=== PATIENT | female | born 1945 | race Caucasian/White ===

== ENCOUNTER → 2018-03-12 15:27 | Outpatient (CLI) | payer MEDICARE, OTHER, SELFPAY ==
--- NOTE | 2018-03-12 15:32 | DI.MG.S_ITS ---
BILATERAL DIGITAL SCREENING MAMMOGRAM 3D/2D WITH CAD: 03/12/2018 CLINICAL: Routine screening. Comparison is made to exams dated: 03/06/2017 mammogram, 02/18/2016 mammogram, and 11/04/2014 mammogram - [facility]. The tissue of both breasts is predominantly fatty. Current study was also evaluated with a Computer Aided Detection (CAD) system. No significant masses, calcifications, or other findings are seen in either breast. There has been no significant interval change. IMPRESSION: NEGATIVE There is no mammographic evidence of malignancy. A 1 year screening mammogram is recommended. This exam was interpreted at Station ID: [id number]. NOTE: For mammograms, a report in lay terms will be sent to the patient. Approximately 15% of breast malignancies will not be visualized mammographically. In the management of a palpable breast mass, a negative mammogram must not discourage biopsy of a clinically suspicious lesion. Electronically Signed By: Dennis vivas/judah:03/12/2018 20:40:37 letter sent: Normal Exam ACR BI-RADS Category 1: Negative [id number]
== END ==
PROVIDERS: Visit Provider Family Medicine
DX: Z12.31 Encounter for screening mammogram for malignant neoplasm of breast (principal)
CPT/HCPCS: 77063; 77067

== ENCOUNTER → 2018-03-25 11:47 | Outpatient (CLI) | payer MEDICARE, OTHER, SELFPAY | PROVIDERS: Visit Provider Physician Assistant | DX: R30.0 Dysuria (principal) | CPT/HCPCS: 87086 ==

== ENCOUNTER → 2018-04-30 12:40 | Outpatient (CLI) | payer MEDICARE, OTHER, SELFPAY ==
[2018-04-30 12:51] LABS: RBC Urine None Seen (0-5/HPF)
[2018-04-30 14:00] LABS: Appearance Urine UA CLEAR; Bilirubin Urine UA NEGATIVE (NEGATIVE); Color Urine UA YELLOW; Glucose Urine UA NEGATIVE (Normal); Ketones Urine UA NEGATIVE (NEGATIVE); Leukocyte Esterase Urine UA NEGATIVE (NEGATIVE); Nitrite Urine UA Negative (Negative); Occult Blood Urine UA NEGATIVE (Negative); Protein Urine UA NEGATIVE (Negative); Urobilinogen Urine UA 0.2 E.U./dL (0.2); pH Urine UA 5.5 (4.5-8.0)
[2018-04-30 14:06] LABS: Bacteria Urine Occasional (0-1); Culture Indicated Urine Cult Not Indicated; Squamous Epithelial Cell Urine 1-5 /HPF; WBC Urine 0-1/HPF (0-5/HPF)
== END ==
PROVIDERS: PCP Family Medicine; Visit Provider Family Medicine
DX: N39.0 Urinary tract infection, site not specified (principal)
CPT/HCPCS: 81001

== ENCOUNTER 2018-09-26 10:45 | Outpatient (RCR) | payer MEDICARE, OTHER, SELFPAY ==
--- NOTE | 2018-06-28 15:10 | PT.OIE ---
Current Diagnoses Strain of adductor muscle, fascia and tendon of unspecified thigh, initial encounter (06/28/18) Past Medical History (Last Updated 01/12/18 @ 18:21 by Talisha Dorado MD) Essential hypertension (Chronic 04/25/17) CTS (carpal tunnel syndrome) (Chronic) Cataract (Chronic) Chronic back pain (Chronic) Hypertension (Chronic) Osteoarthritis (Chronic) Asthma (Resolved) Measles (Resolved) Past Surgical History (Last Updated 03/28/18 @ 09:26 by Isabell Fung DO) Anesthesia (Resolved) History of knee replacement (Resolved 2016) History of spinal fusion (Resolved 06/2009) History of spinal fusion (Resolved 2011) Status post parathyroidectomy (Resolved 2015) Status post tonsillectomy and adenoidectomy (Resolved 1947) Provider Visit Care Team Role Provider Type Isabell Fung DO Attending Provider Physician Primary Care Provider Specialty: Family Practice Address: [address] [place] [address] Email: [email or web address] Physical Therapy Initial Evaluation PT-OP-A Visit Information Start: 06/28/18 14:25 Freq: Status: Active Protocol: Document 06/28/18 14:26 [facility] (Rec: 06/28/18 15:10 [facility] [email or web address]) Out-Patient Physical Therapy Visit Information Visit Information Visit Type Initial Evaluation Visit Start Time 13:00 Visit Stop Time 13:45 Total Visit Minutes 45 Visit Number 1 Evaluation Information Evaluation Date 06/28/18 PT-OP-B Current Condition Start: 06/28/18 14:25 Freq: Status: Active Protocol: Document 06/28/18 14:26 [facility] (Rec: 06/28/18 15:10 [facility] [email or web address]) Current Condition History of Current Condition Onset Date February 2018 Current Complaints left sided groin pain that began last February History of Current Condition Jacinda is a 72 year old female who aggravated her left groin when getting out of a [place] chair [place] [employer] [place]. She reports she had sat down in the chair to try it out but then getting back up was difficult and she felt a pain in her left groin with the attempt to get out of the chair. Since that time she has pain with getting in and out of the car or bathtub. She also has increased pain with donning shoes or socks as it is difficult for her to place her left hip into ER. Pain can range from 1-8/10 depending on her activitty. She does have a history of left TKA June 2017, and right TKA April 20 2017. Past medical history also includes L3-4, L4-5, L5-S1 fusion in Jun 2009, and January 2012 Treatment Goals Patient/Caregiver Goals to decrease pain and improve functional mobility Prior Functional Status Baseline Function- ADL's Independent Baseline Function- Mobility Independent Current Functional Impairments (Reported) Functional Limitations- ADL's pain with transitional movements such as sit-stand, getting into our out of a car or bathtub and sometimes just standing brings on pain PT-OP-F Manual Assessment Start: 06/28/18 14:25 Freq: Status: Active Protocol: Document 06/28/18 14:26 [facility] (Rec: 06/28/18 15:10 [facility] [email or web address]) Manual Assessments Soft Tissue Assessment Soft Tissue Mobility Assessment tightness in the sartorius, gracillis, and adductor attachments to the pubic ramus with tenderness to palpation ingrid test position recreates pain in the groin Joint Mobility Assessment Joint Mobility Assessment painful hip ER on the left both active and passive, pain is reduced with hip distraction and lateral glide PT-OP-K Range of Motion Start: 06/28/18 14:25 Freq: Status: Active Protocol: Document 06/28/18 14:26 [facility] (Rec: 06/28/18 15:10 [facility] [email or web address]) Hip Goniometric Range of Motion Hip Measured in Degrees Left Hip ROM WFL No Testing Position Supine Flexion w/Knee Flexed 110 Abduction 30 Internal Rotation 10 External Rotation 10 Hip ROM Limitations Hip ROM Limitations Soft Tissue Tightness Muscle Tone Pain Comments pain is reproduced with hip ER in a flexed position, pain also reproduced with hip extension in ingrid test position although hip ext is WFL PT-OP-M Strength Start: 06/28/18 14:25 Freq: Status: Active Protocol: Document 06/28/18 14:26 [facility] (Rec: 06/28/18 15:10 [facility] [email or web address]) Hip Strength Hip Manual Muscle Testing Right Reason Not Measured WFL Left Flexion (L2) 4 Good Extension (S1) 4 Good Abduction 4 Good External Rotation 4 Good Internal Rotation 4 Good Comments pain with resisted ER, extension PT-OP-Q Treatments Start: 06/28/18 14:25 Freq: Status: Active Protocol: Document 06/28/18 14:26 [facility] (Rec: 06/28/18 15:10 [facility] [email or web address]) Therapeutic Exercises Supine Exercises 1 Supine Exercise Name supine hip roll ins and roll outs Side bilateral Reps/Minutes 2 x 10 Manual Therapy Treatment Soft Tissue Mobilization 1 Body Location adductor, gracilis, and sartorius tendons and musculature Mobilization Type Myofascial Release Intensity/Depth Superficial Body Position Hooklying Joint Mobilizations 1 Joint left hip distraction with belt as assistance and hip ER MWM Body Position Hooklying Comments good tolerance for hip MWM and no pain with hip ER while the left hip was distracted PT-OP-R Modalities Start: 06/28/18 14:25 Freq: Status: Active Protocol: Document 06/28/18 14:26 [facility] (Rec: 06/28/18 15:10 [facility] [email or web address]) Ultrasound Therapy Treatment L adductor attachments to pubic ramus Patient Position Supine Coupling Medium Ultrasound Gel Applicator Size (cm2) 5 Mode Setting Continuous Duty Cycle 100% PT-OP-T Assessment and Plan Start: 06/28/18 14:25 Freq: Status: Active Protocol: Document 06/28/18 14:26 [facility] (Rec: 06/28/18 15:10 [facility] [email or web address]) Physical Therapy Assessment Rehab Potential Rehabilitation Potential Good Evaluation Complexity Number of Personal Factors/Comorbidities 0 Number of Body Systems Impaired 1-2 Clinical Presentation at Evaluation Stable Impairments Impairments Activity Tolerance Gait Pain Soft Tissue Mobility Strength Transfers Goals Four Impairment painful hip ER, Jacinda is unable to rest her left heel over her right knee Crawler Tractor Operator Goal (LTG) Improve full painfree hip ER with manual therapy techniques and gentle stretches LTG Duration 6-8 weeks Three Impairment spasm of the adductors, sartorius, and gracilis at the proximal attachments Short Term Goal (STG) reduce spasm of these muscle groups to help improve painfree hip ROM STG Duration 4-5 weeks Two Impairment pain with transitional movements Long-Term Goal (LTG) Jacinda is able to transfer in and out of her car or bathtub without pain in the left groin LTG Duration 6-8 weeks One Impairment pain in the groin rated 1-8 depending on activity level Short Term Goal (STG) Jacinda has decreased c/o groin pain to palpation and is able to roll in bed without pain STG Duration 4 weeks Assessment Summary Assessment Jacinda presents to physical therapy today with muscle guarding and spasm of the adductor attachment to the pubic ramus. She also has tenderness with hip ER and tenderness over the sartorius and gracilis. She is limited in transitional movements and sit-stand activities. She is also tender to palpation over the pubic bone. I found today with gentle distraction of her left hip that hip ER was improved. We worked on US over the common adductor tendon proximal attachment and MFR to the same. Treatment then included hip distraction with ER. She tolerated this well. She is a good candidate for PT focusing on reducing spasm of the adductors and reducing pain. Physical Therapy Plan Frequency and Duration Frequency of Treatment 2x/Week Duration of Treatment 8 weeks Plan of Care Start Date 06/28/18 Plan of Care End Date 08/23/18 Therapeutic Interventions Therapeutic Interventions Home Exercise Program Joint Mobilizations Manual Therapy Neuromuscular Re-education Patient/Caregiver Education Self-Care/Home Management Soft Tissue Mobilization Therapeutic Exercises Modalities Ultrasound
--- NOTE | 2018-06-28 15:10 | PT.OPPOC ---
Current Diagnoses Strain of adductor muscle, fascia and tendon of unspecified thigh, initial encounter (06/28/18) Provider Visit Care Team Role Provider Type Isabell Fung DO Attending Provider Physician Primary Care Provider Specialty: Family Practice Address: [address] [place] [address], [id number] Email: [email or web address] Plan Of Care PT-OP-T Assessment and Plan Start: 06/28/18 14:25 Freq: Status: Active Protocol: Document 06/28/18 14:26 [facility] (Rec: 06/28/18 15:10 [facility] [email or web address]) Physical Therapy Assessment Rehab Potential Rehabilitation Potential Good Evaluation Complexity Number of Personal Factors/Comorbidities 0 Number of Body Systems Impaired 1-2 Clinical Presentation at Evaluation Stable Impairments Impairments Activity Tolerance Gait Pain Soft Tissue Mobility Strength Transfers Goals Four Impairment painful hip ER, Jacinda is unable to rest her left heel over her right knee Halfway Goal (LTG) Improve full painfree hip ER with manual therapy techniques and gentle stretches LTG Duration 6-8 weeks Three Impairment spasm of the adductors, sartorius, and gracilis at the proximal attachments Short Term Goal (STG) reduce spasm of these muscle groups to help improve painfree hip ROM STG Duration 4-5 weeks Two Impairment pain with transitional movements Medicine Worker Goal (LTG) Jacinda is able to transfer in and out of her car or bathtub without pain in the left groin LTG Duration 6-8 weeks One Impairment pain in the groin rated 1-8 depending on activity level Short Term Goal (STG) Jacinda has decreased c/o groin pain to palpation and is able to roll in bed without pain STG Duration 4 weeks Assessment Summary Assessment Jacinda presents to physical therapy today with muscle guarding and spasm of the adductor attachment to the pubic ramus. She also has tenderness with hip ER and tenderness over the sartorius and gracilis. She is limited in transitional movements and sit-stand activities. She is also tender to palpation over the pubic bone. I found today with gentle distraction of her left hip that hip ER was improved. We worked on US over the common adductor tendon proximal attachment and MFR to the same. Treatment then included hip distraction with ER. She tolerated this well. She is a good candidate for PT focusing on reducing spasm of the adductors and reducing pain. Physical Therapy Plan Frequency and Duration Frequency of Treatment 2x/Week Duration of Treatment 8 weeks Plan of Care Start Date 06/28/18 Plan of Care End Date 08/23/18 Therapeutic Interventions Therapeutic Interventions Home Exercise Program Joint Mobilizations Manual Therapy Neuromuscular Re-education Patient/Caregiver Education Self-Care/Home Management Soft Tissue Mobilization Therapeutic Exercises Modalities Ultrasound Plan of Care Dates Plan of Care Start Date 06/28/18 Plan of Care End Date 08/23/18 Please Sign and Return: I have reviewed this Plan of Care and certify that the skilled therapy services above are required to meet the patient?s needs. Physician Signature Date Printed Name and Credentials Clinical Instructor Signature Printed Name and Credentials
--- NOTE | 2018-07-04 14:01 | PT.OTN ---
Current Diagnoses Strain of adductor muscle, fascia and tendon of unspecified thigh, initial encounter (07/04/18) Physical Therapy Treatment Note PT-OP-A Visit Information Start: 06/28/18 14:25 Freq: Status: Active Protocol: Document 07/04/18 13:56 [facility] (Rec: 07/04/18 14:01 [facility] [email or web address]) Out-Patient Physical Therapy Visit Information Visit Information Visit Type Treatment Note Visit Start Time 10:45 Visit Stop Time 11:30 Total Visit Minutes 45 Visit Number 2 Evaluation Information Evaluation Date 06/28/18 PT-OP-B Current Condition Start: 06/28/18 14:25 Freq: Status: Active Protocol: Document 07/04/18 13:56 [facility] (Rec: 07/04/18 14:01 [facility] [email or web address]) Current Condition History of Current Condition Onset Date February 2018 Current Complaints left sided groin pain that began last February History of Current Condition Jacinda is a 72 year old female who aggravated her left groin when getting out of a [place] the [employer] [place]. She reports she had sat down in the chair to try it out but then getting back up was difficult and she felt a pain in her left groin with the attempt to get out of the chair. Since that time she has pain with getting in and out of the car or bathtub. She also has increased pain with donning shoes or socks as it is difficult for her to place her left hip into ER. Pain can range from 1-8/10 depending on her activitty. She does have a history of left TKA June 2017, and right TKA April 20 2017. Past medical history also includes L3-4, L4-5, L5-S1 fusion in Jun 2009, and January 2012 PT-OP-C Subjective Start: 06/28/18 14:25 Freq: Status: Active Protocol: Document 07/04/18 13:56 [facility] (Rec: 07/04/18 14:01 [facility] [email or web address]) OP-PT Subjective Patient Comments Patient Comments Doing a little better this week PT-OP-F Manual Assessment Start: 06/28/18 14:25 Freq: Status: Active Protocol: Document 06/28/18 14:26 [facility] (Rec: 06/28/18 15:10 [facility] [email or web address]) Manual Assessments Soft Tissue Assessment Soft Tissue Mobility Assessment tightness in the sartorius, gracillis, and adductor attachments to the pubic ramus with tenderness to palpation ingrid test position recreates pain in the groin Joint Mobility Assessment Joint Mobility Assessment painful hip ER on the left both active and passive, pain is reduced with hip distraction and lateral glide PT-OP-K Range of Motion Start: 06/28/18 14:25 Freq: Status: Active Protocol: Document 06/28/18 14:26 [facility] (Rec: 06/28/18 15:10 [facility] [email or web address]) Hip Goniometric Range of Motion Hip Measured in Degrees Left Hip ROM WFL No Testing Position Supine Flexion w/Knee Flexed 110 Abduction 30 Internal Rotation 10 External Rotation 10 Hip ROM Limitations Hip ROM Limitations Soft Tissue Tightness Muscle Tone Pain Comments pain is reproduced with hip ER in a flexed position, pain also reproduced with hip extension in ingrid test position although hip ext is WFL PT-OP-M Strength Start: 06/28/18 14:25 Freq: Status: Active Protocol: Document 06/28/18 14:26 [facility] (Rec: 06/28/18 15:10 [facility] [email or web address]) Hip Strength Hip Manual Muscle Testing Right Reason Not Measured WFL Left Flexion (L2) 4 Good Extension (S1) 4 Good Abduction 4 Good External Rotation 4 Good Internal Rotation 4 Good Comments pain with resisted ER, extension PT-OP-Q Treatments Start: 06/28/18 14:25 Freq: Status: Active Protocol: Document 07/04/18 13:56 [facility] (Rec: 07/04/18 14:01 [facility] [email or web address]) Therapeutic Exercises Supine Exercises 3 Supine Exercise Name piriformis stretch with ankle resting over opposite knee 2 Supine Exercise Name bent knee fall outs 1 Supine Exercise Name supine hip roll ins and roll outs Side bilateral Reps/Minutes 2 x 10 Manual Therapy Treatment Soft Tissue Mobilization 1 Body Location adductor, gracilis, and sartorius tendons and musculature Mobilization Type Myofascial Release Intensity/Depth Superficial Body Position Hooklying Joint Mobilizations 1 Joint left hip distraction with belt as assistance and hip ER MWM Body Position Hooklying Comments good tolerance for hip MWM and no pain with hip ER while the left hip was distracted PT-OP-R Modalities Start: 06/28/18 14:25 Freq: Status: Active Protocol: Document 07/04/18 14:01 [facility] (Rec: 07/04/18 14:01 [facility] [email or web address]) Ultrasound Therapy Treatment L adductor attachments to pubic ramus Treatment Duration (minutes) 8 Patient Position Supine Coupling Medium Ultrasound Gel Applicator Size (cm2) 5 Mode Setting Continuous Duty Cycle 100% PT-OP-T Assessment and Plan Start: 06/28/18 14:25 Freq: Status: Active Protocol: Document 07/04/18 13:56 [facility] (Rec: 07/04/18 14:01 [facility] [email or web address]) Physical Therapy Assessment Assessment Summary Assessment decreased tenderness today with MFR and Jacinda was able to rest her left ankle over the right knee Physical Therapy Plan Frequency and Duration Frequency of Treatment 2x/Week Duration of Treatment 8 weeks Plan of Care Start Date 06/28/18 Plan of Care End Date 08/23/18 Therapeutic Interventions Therapeutic Interventions Home Exercise Program Joint Mobilizations Manual Therapy Neuromuscular Re-education Patient/Caregiver Education Self-Care/Home Management Soft Tissue Mobilization Therapeutic Exercises Modalities Ultrasound Next Visit Focus/Plan Next Note Type Treatment Note Next Visit Plan Begin resistance with roll outs next visit, TA facilitation, and possible trial of clam shells
--- NOTE | 2018-07-10 17:26 | PT.OTN ---
Current Diagnoses Strain of adductor muscle, fascia and tendon of unspecified thigh, initial encounter (07/10/18) Physical Therapy Treatment Note PT-OP-A Visit Information Start: 06/28/18 14:25 Freq: Status: Active Protocol: Document 07/10/18 14:29 [facility] (Rec: 07/10/18 14:30 [facility] [email or web address]) Out-Patient Physical Therapy Visit Information Visit Information Visit Type Treatment Note Visit Start Time 13:00 Visit Stop Time 13:45 Total Visit Minutes 45 Visit Number 3 PT-OP-B Current Condition Start: 06/28/18 14:25 Freq: Status: Active Protocol: Document 07/04/18 13:56 [facility] (Rec: 07/04/18 14:01 [facility] [email or web address]) Current Condition History of Current Condition Onset Date February 2018 Current Complaints left sided groin pain that began last February History of Current Condition Jacinda is a 72 year old female who aggravated her left groin when getting out of a [place] chair at the [employer] festival. She reports she had sat down in the chair to try it out but then getting back up was difficult and she felt a pain in her left groin with the attempt to get out of the chair. Since that time she has pain with getting in and out of the car or bathtub. She also has increased pain with donning shoes or socks as it is difficult for her to place her left hip into ER. Pain can range from 1-8/10 depending on her activitty. She does have a history of left TKA June 2017, and right TKA April 20 2017. Past medical history also includes L3-4, L4-5, L5-S1 fusion in Jun 2009, and January 2012 PT-OP-C Subjective Start: 06/28/18 14:25 Freq: Status: Active Protocol: Document 07/10/18 17:20 [facility] (Rec: 07/10/18 17:25 [facility] [email or web address]) OP-PT Subjective Patient Comments Patient Comments Jacinda reports feeling that symptoms are getting a little better Patient Reported Progress Improving PT-OP-F Manual Assessment Start: 06/28/18 14:25 Freq: Status: Active Protocol: Document 06/28/18 14:26 [facility] (Rec: 06/28/18 15:10 [facility] [email or web address]) Manual Assessments Soft Tissue Assessment Soft Tissue Mobility Assessment tightness in the sartorius, gracillis, and adductor attachments to the pubic ramus with tenderness to palpation ingrid test position recreates pain in the groin Joint Mobility Assessment Joint Mobility Assessment painful hip ER on the left both active and passive, pain is reduced with hip distraction and lateral glide PT-OP-K Range of Motion Start: 06/28/18 14:25 Freq: Status: Active Protocol: Document 06/28/18 14:26 [facility] (Rec: 06/28/18 15:10 [facility] [email or web address]) Hip Goniometric Range of Motion Hip Measured in Degrees Left Hip ROM WFL No Testing Position Supine Flexion w/Knee Flexed 110 Abduction 30 Internal Rotation 10 External Rotation 10 Hip ROM Limitations Hip ROM Limitations Soft Tissue Tightness Muscle Tone Pain Comments pain is reproduced with hip ER in a flexed position, pain also reproduced with hip extension in ingrid test position although hip ext is WFL PT-OP-M Strength Start: 06/28/18 14:25 Freq: Status: Active Protocol: Document 06/28/18 14:26 [facility] (Rec: 06/28/18 15:10 [facility] [email or web address]) Hip Strength Hip Manual Muscle Testing Right Reason Not Measured WFL Left Flexion (L2) 4 Good Extension (S1) 4 Good Abduction 4 Good External Rotation 4 Good Internal Rotation 4 Good Comments pain with resisted ER, extension PT-OP-Q Treatments Start: 06/28/18 14:25 Freq: Status: Active Protocol: Document 07/10/18 17:20 [facility] (Rec: 07/10/18 17:25 [facility] [email or web address]) Therapeutic Exercises Supine Exercises 4 Supine Exercise Name single knee to chest stretch 3 Supine Exercise Name piriformis stretch with ankle resting over opposite knee 2 Supine Exercise Name roll outs with theraband Reps/Minutes 3 x 10 1 Supine Exercise Name supine hip roll ins and roll outs Side bilateral Reps/Minutes 2 x 10 Manual Therapy Treatment Soft Tissue Mobilization 1 Body Location adductor, gracilis, and sartorius tendons and musculature Mobilization Type Myofascial Release Intensity/Depth Superficial Body Position Hooklying Joint Mobilizations 1 Joint left hip distraction with belt as assistance and hip ER MWM Body Position Hooklying Comments good tolerance for hip MWM and no pain with hip ER while the left hip was distracted PT-OP-R Modalities Start: 06/28/18 14:25 Freq: Status: Active Protocol: Document 07/04/18 14:01 [facility] (Rec: 07/04/18 14:01 [facility] [email or web address]) Ultrasound Therapy Treatment L adductor attachments to pubic ramus Treatment Duration (minutes) 8 Patient Position Supine Coupling Medium Ultrasound Gel Applicator Size (cm2) 5 Mode Setting Continuous Duty Cycle 100% PT-OP-T Assessment and Plan Start: 06/28/18 14:25 Freq: Status: Active Protocol: Document 07/10/18 17:20 [facility] (Rec: 07/10/18 17:25 [facility] [email or web address]) Physical Therapy Assessment Assessment Summary Assessment improving ROM with decreasing hip impingement, ingrid test position is still tight and uncomfortable for Jacinda. She tolerated roll outs fine today Physical Therapy Plan Frequency and Duration Frequency of Treatment 2x/Week Duration of Treatment 8 weeks Plan of Care Start Date 06/28/18 Plan of Care End Date 08/23/18 Therapeutic Interventions Therapeutic Interventions Home Exercise Program Joint Mobilizations Manual Therapy Neuromuscular Re-education Patient/Caregiver Education Self-Care/Home Management Soft Tissue Mobilization Therapeutic Exercises Modalities Ultrasound Next Visit Focus/Plan Next Note Type Treatment Note Next Visit Plan add clam shells next visit and try biodex to warm up, quadraped rock backs may also be beceficial to try
--- NOTE | 2018-07-25 12:48 | PT.OTN ---
Current Diagnoses Strain of adductor muscle, fascia and tendon of unspecified thigh, initial encounter (07/25/18) Physical Therapy Treatment Note PT-OP-A Visit Information Start: 06/28/18 14:25 Freq: Status: Active Protocol: Document 07/25/18 12:36 [facility] (Rec: 07/25/18 12:48 [facility] [email or web address]) Out-Patient Physical Therapy Visit Information Visit Information Visit Type Treatment Note Visit Start Time 10:45 Visit Stop Time 11:30 Total Visit Minutes 45 Visit Number 4 PT-OP-B Current Condition Start: 06/28/18 14:25 Freq: Status: Active Protocol: Document 07/04/18 13:56 [facility] (Rec: 07/04/18 14:01 [facility] [email or web address]) Current Condition History of Current Condition Onset Date February 2018 Current Complaints left sided groin pain that began last February History of Current Condition Jacinda is a 72 year old female who aggravated her left groin [place] [employer] [place]. She reports she had sat down in the chair to try it out but then getting back up was difficult and she felt a pain in her left groin with the attempt to get out of the chair. Since that time she has pain with getting in and out of the car or bathtub. She also has increased pain with donning shoes or socks as it is difficult for her to place her left hip into ER. Pain can range from 1-8/10 depending on her activitty. She does have a history of left TKA June 2017, and right TKA April 20 2017. Past medical history also includes L3-4, L4-5, L5-S1 fusion in Jun 2009, and January 2012 PT-OP-C Subjective Start: 06/28/18 14:25 Freq: Status: Active Protocol: Document 07/25/18 12:36 [facility] (Rec: 07/25/18 12:48 [facility] [email or web address]) OP-PT Subjective Patient Comments Patient Comments Jacinda reports she is doing better and the clicking she was experiencing in the groin region is decreased Patient Reported Progress Improving PT-OP-F Manual Assessment Start: 06/28/18 14:25 Freq: Status: Active Protocol: Document 06/28/18 14:26 [facility] (Rec: 06/28/18 15:10 [facility] [email or web address]) Manual Assessments Soft Tissue Assessment Soft Tissue Mobility Assessment tightness in the sartorius, gracillis, and adductor attachments to the pubic ramus with tenderness to palpation ingrid test position recreates pain in the groin Joint Mobility Assessment Joint Mobility Assessment painful hip ER on the left both active and passive, pain is reduced with hip distraction and lateral glide PT-OP-K Range of Motion Start: 06/28/18 14:25 Freq: Status: Active Protocol: Document 06/28/18 14:26 [facility] (Rec: 06/28/18 15:10 [facility] [email or web address]) Hip Goniometric Range of Motion Hip Measured in Degrees Left Hip ROM WFL No Testing Position Supine Flexion w/Knee Flexed 110 Abduction 30 Internal Rotation 10 External Rotation 10 Hip ROM Limitations Hip ROM Limitations Soft Tissue Tightness Muscle Tone Pain Comments pain is reproduced with hip ER in a flexed position, pain also reproduced with hip extension in ingrid test position although hip ext is WFL PT-OP-M Strength Start: 06/28/18 14:25 Freq: Status: Active Protocol: Document 06/28/18 14:26 [facility] (Rec: 06/28/18 15:10 [facility] [email or web address]) Hip Strength Hip Manual Muscle Testing Right Reason Not Measured WFL Left Flexion (L2) 4 Good Extension (S1) 4 Good Abduction 4 Good External Rotation 4 Good Internal Rotation 4 Good Comments pain with resisted ER, extension PT-OP-Q Treatments Start: 06/28/18 14:25 Freq: Status: Active Protocol: Document 07/25/18 12:36 [facility] (Rec: 07/25/18 12:48 [facility] [email or web address]) Cardio Equipment Recumbent Elliptical ([employer]) Duration (Minutes) 5 Therapeutic Exercises Supine Exercises 4 Supine Exercise Name single knee to chest stretch Standing Exercises 3 Standing Exercise Name standing hip abduction Reps/Minutes 2 x 10 reps each side 2 Standing Exercise Name standing hamstring stretch on stairs Comments hold 30 seconds each 1 Standing Exercise Name standing calf stretch Comments hold 30 sec each Manual Therapy Treatment Soft Tissue Mobilization 1 Body Location adductor, gracilis, and sartorius tendons and musculature Mobilization Type Myofascial Release Intensity/Depth Superficial Body Position Hooklying Joint Mobilizations 1 Joint left hip distraction with manual resistance Body Position Hooklying Comments good tolerance for hip MWM and no pain with hip ER while the left hip was distracted PT-OP-R Modalities Start: 06/28/18 14:25 Freq: Status: Active Protocol: Document 07/04/18 14:01 [facility] (Rec: 07/04/18 14:01 [facility] [email or web address]) Ultrasound Therapy Treatment L adductor attachments to pubic ramus Treatment Duration (minutes) 8 Patient Position Supine Coupling Medium Ultrasound Gel Applicator Size (cm2) 5 Mode Setting Continuous Duty Cycle 100% PT-OP-T Assessment and Plan Start: 06/28/18 14:25 Freq: Status: Active Protocol: Document 07/25/18 12:36 [facility] (Rec: 07/25/18 12:48 [facility] [email or web address]) Physical Therapy Assessment Assessment Summary Assessment decreased pinching symptoms today with manual hip ROM and stretching. Added in standing hip abduction and Jacinda tolerated this well with a small amount of pain with initially starting the hip abduction then she was okay to continue. Physical Therapy Plan Frequency and Duration Frequency of Treatment 2x/Week Duration of Treatment 8 weeks Plan of Care Start Date 06/28/18 Plan of Care End Date 08/23/18 Therapeutic Interventions Therapeutic Interventions Home Exercise Program Joint Mobilizations Manual Therapy Neuromuscular Re-education Patient/Caregiver Education Self-Care/Home Management Soft Tissue Mobilization Therapeutic Exercises Modalities Ultrasound Next Visit Focus/Plan Next Note Type Treatment Note Next Visit Plan biodex again for warm up, standing hip exercises, shuttle and clam shells
--- NOTE | 2018-07-31 18:06 | PT.OTN ---
Current Diagnoses Strain of adductor muscle, fascia and tendon of unspecified thigh, initial encounter (07/31/18) Physical Therapy Treatment Note PT-OP-A Visit Information Start: 06/28/18 14:25 Freq: Status: Active Protocol: Document 07/31/18 17:54 [facility] (Rec: 07/31/18 18:04 [facility] [email or web address]) Out-Patient Physical Therapy Visit Information Visit Information Visit Type Treatment Note Visit Start Time 09:45 Visit Stop Time 10:30 Total Visit Minutes 45 Visit Number 5 Evaluation Information Evaluation Date 06/28/18 PT-OP-B Current Condition Start: 06/28/18 14:25 Freq: Status: Active Protocol: Document 07/04/18 13:56 [facility] (Rec: 07/04/18 14:01 [facility] [email or web address]) Current Condition History of Current Condition Onset Date February 2018 Current Complaints left sided groin pain that began last February History of Current Condition Jacinda is a 72 year old female who aggravated her left groin when getting [place] of a [place] chair [place] the [employer] [place]. She reports she had sat down in the chair to try it out but then getting back up was difficult and she felt a pain in her left groin with the attempt to get out of the chair. Since that time she has pain with getting in and out of the car or bathtub. She also has increased pain with donning shoes or socks as it is difficult for her to place her left hip into ER. Pain can range from 1-8/10 depending on her activitty. She does have a history of left TKA June 2017, and right TKA April 20 2017. Past medical history also includes L3-4, L4-5, L5-S1 fusion in Jun 2009, and January 2012 PT-OP-C Subjective Start: 06/28/18 14:25 Freq: Status: Active Protocol: Document 07/31/18 17:54 [facility] (Rec: 07/31/18 18:04 [facility] [email or web address]) OP-PT Subjective Patient Comments Patient Comments Jacinda notes she is continuing to note progress. She has been busy with her sister who has been in the hospital so she hasn't done as much of her exercises as she would have liked to done Patient Reported Progress Improving PT-OP-F Manual Assessment Start: 06/28/18 14:25 Freq: Status: Active Protocol: Document 06/28/18 14:26 [facility] (Rec: 06/28/18 15:10 [facility] [email or web address]) Manual Assessments Soft Tissue Assessment Soft Tissue Mobility Assessment tightness in the sartorius, gracillis, and adductor attachments to the pubic ramus with tenderness to palpation ingrid test position recreates pain in the groin Joint Mobility Assessment Joint Mobility Assessment painful hip ER on the left both active and passive, pain is reduced with hip distraction and lateral glide PT-OP-K Range of Motion Start: 06/28/18 14:25 Freq: Status: Active Protocol: Document 06/28/18 14:26 [facility] (Rec: 06/28/18 15:10 [facility] [email or web address]) Hip Goniometric Range of Motion Hip Measured in Degrees Left Hip ROM WFL No Testing Position Supine Flexion w/Knee Flexed 110 Abduction 30 Internal Rotation 10 External Rotation 10 Hip ROM Limitations Hip ROM Limitations Soft Tissue Tightness Muscle Tone Pain Comments pain is reproduced with hip ER in a flexed position, pain also reproduced with hip extension in ingrid test position although hip ext is WFL PT-OP-M Strength Start: 06/28/18 14:25 Freq: Status: Active Protocol: Document 06/28/18 14:26 [facility] (Rec: 06/28/18 15:10 [facility] [email or web address]) Hip Strength Hip Manual Muscle Testing Right Reason Not Measured WFL Left Flexion (L2) 4 Good Extension (S1) 4 Good Abduction 4 Good External Rotation 4 Good Internal Rotation 4 Good Comments pain with resisted ER, extension PT-OP-Q Treatments Start: 06/28/18 14:25 Freq: Status: Active Protocol: Document 07/31/18 17:54 [facility] (Rec: 07/31/18 18:04 [facility] [email or web address]) Cardio Equipment Recumbent Elliptical ([employer]) Duration (Minutes) 5 Therapeutic Exercises Supine Exercises 6 Supine Exercise Name ingrid test positions iliopsoas stretch Reps/Minutes with manual assistance 5 Supine Exercise Name adductor stretch Reps/Minutes with strap 4 Supine Exercise Name single knee to chest stretch 3 Supine Exercise Name piriformis stretch with ankle resting over opposite knee 2 Supine Exercise Name roll outs with theraband Reps/Minutes 3 x 10 1 Supine Exercise Name supine hip roll ins and roll outs Side bilateral Reps/Minutes 2 x 10 Sidelying Exercises 1 Sidelying Exercise Name clam shells Reps/Minutes 3 x 10 reps Standing Exercises 3 Standing Exercise Name standing hip abduction Reps/Minutes 2 x 10 reps each side 1 Standing Exercise Name standing calf stretch Comments hold 30 sec each raise left arm Manual Therapy Treatment Soft Tissue Mobilization 1 Body Location adductor, gracilis, and sartorius tendons and musculature Mobilization Type Myofascial Release Intensity/Depth Superficial Body Position Hooklying Joint Mobilizations 1 Joint left hip distraction with manual resistance Body Position Hooklying Comments good tolerance for hip MWM and no pain with hip ER while the left hip was distracted Manual Techniques 1 Type manual stretching in sidelying for the quads and iliopsoas Comments sidelying position PT-OP-R Modalities Start: 06/28/18 14:25 Freq: Status: Active Protocol: Document 07/04/18 14:01 [facility] (Rec: 07/04/18 14:01 [facility] [email or web address]) Ultrasound Therapy Treatment L adductor attachments to pubic ramus Treatment Duration (minutes) 8 Patient Position Supine Coupling Medium Ultrasound Gel Applicator Size (cm2) 5 Mode Setting Continuous Duty Cycle 100% PT-OP-T Assessment and Plan Start: 06/28/18 14:25 Freq: Status: Active Protocol: Document 07/31/18 17:54 [facility] (Rec: 07/31/18 18:04 [facility] [email or web address]) Physical Therapy Assessment Assessment Summary Assessment Jacinda continues to make progress, she needs continued work on stretching her iliopsoas but is tolerating addition of new exercises without pain Physical Therapy Plan Frequency and Duration Frequency of Treatment 2x/Week Duration of Treatment 8 weeks Plan of Care Start Date 06/28/18 Plan of Care End Date 08/23/18 Therapeutic Interventions Therapeutic Interventions Home Exercise Program Joint Mobilizations Manual Therapy Neuromuscular Re-education Patient/Caregiver Education Self-Care/Home Management Soft Tissue Mobilization Therapeutic Exercises Modalities Ultrasound Next Visit Focus/Plan Next Note Type Treatment Note Next Visit Plan add shuttle next visit and progress stretches
--- NOTE | 2018-08-02 14:05 | PT.OTN ---
Current Diagnoses Strain of adductor muscle, fascia and tendon of unspecified thigh, initial encounter (08/02/18) Physical Therapy Treatment Note PT-OP-A Visit Information Start: 06/28/18 14:25 Freq: Status: Active Protocol: Document 08/02/18 14:01 [facility] (Rec: 08/02/18 14:05 [facility] [email or web address]) Out-Patient Physical Therapy Visit Information Visit Information Visit Type Treatment Note Visit Start Time 09:45 Visit Stop Time 10:30 Total Visit Minutes 45 Visit Number 6 PT-OP-B Current Condition Start: 06/28/18 14:25 Freq: Status: Active Protocol: Document 07/04/18 13:56 [facility] (Rec: 07/04/18 14:01 [facility] [email or web address]) Current Condition History of Current Condition Onset Date February 2018 Current Complaints left sided groin pain that began last February History of Current Condition Jacinda is a 72 year old female who aggravated her left groin when getting out of a [place] chair at the [employer] festival. She reports she had sat down in the chair to try it out but then getting back up was difficult and she felt a pain in her left groin with the attempt to get out of the chair. Since that time she has pain with getting in and out of the car or bathtub. She also has increased pain with donning shoes or socks as it is difficult for her to place her left hip into ER. Pain can range from 1-8/10 depending on her activitty. She does have a history of left TKA June 2017, and right TKA April 20 2017. Past medical history also includes L3-4, L4-5, L5-S1 fusion in Jun 2009, and January 2012 PT-OP-C Subjective Start: 06/28/18 14:25 Freq: Status: Active Protocol: Document 08/02/18 14:01 [facility] (Rec: 08/02/18 14:05 [facility] [email or web address]) OP-PT Subjective Patient Comments Patient Comments Jacinda reports she is feeling better and she can ignore the left leg now so she is no longer in constant pain Patient Reported Progress Improving PT-OP-F Manual Assessment Start: 06/28/18 14:25 Freq: Status: Active Protocol: Document 06/28/18 14:26 [facility] (Rec: 06/28/18 15:10 [facility] [email or web address]) Manual Assessments Soft Tissue Assessment Soft Tissue Mobility Assessment tightness in the sartorius, gracillis, and adductor attachments to the pubic ramus with tenderness to palpation ingrid test position recreates pain in the groin Joint Mobility Assessment Joint Mobility Assessment painful hip ER on the left both active and passive, pain is reduced with hip distraction and lateral glide PT-OP-K Range of Motion Start: 06/28/18 14:25 Freq: Status: Active Protocol: Document 06/28/18 14:26 [facility] (Rec: 06/28/18 15:10 [facility] [email or web address]) Hip Goniometric Range of Motion Hip Measured in Degrees Left Hip ROM WFL No Testing Position Supine Flexion w/Knee Flexed 110 Abduction 30 Internal Rotation 10 External Rotation 10 Hip ROM Limitations Hip ROM Limitations Soft Tissue Tightness Muscle Tone Pain Comments pain is reproduced with hip ER in a flexed position, pain also reproduced with hip extension in ingrid test position although hip ext is WFL PT-OP-M Strength Start: 06/28/18 14:25 Freq: Status: Active Protocol: Document 06/28/18 14:26 [facility] (Rec: 06/28/18 15:10 [facility] [email or web address]) Hip Strength Hip Manual Muscle Testing Right Reason Not Measured WFL Left Flexion (L2) 4 Good Extension (S1) 4 Good Abduction 4 Good External Rotation 4 Good Internal Rotation 4 Good Comments pain with resisted ER, extension PT-OP-Q Treatments Start: 06/28/18 14:25 Freq: Status: Active Protocol: Document 08/02/18 14:01 [facility] (Rec: 08/02/18 14:05 [facility] [email or web address]) Cardio Equipment Recumbent Elliptical ([employer]) Duration (Minutes) 5 Therapeutic Exercises Supine Exercises 6 Supine Exercise Name ingrid test positions iliopsoas stretch Reps/Minutes with manual assistance 5 Supine Exercise Name adductor stretch Reps/Minutes with strap 4 Supine Exercise Name single knee to chest stretch 3 Supine Exercise Name piriformis stretch with ankle resting over opposite knee 2 Supine Exercise Name roll outs with theraband Reps/Minutes 3 x 10 1 Supine Exercise Name supine hip roll ins and roll outs Side bilateral Reps/Minutes 2 x 10 Sidelying Exercises 1 Sidelying Exercise Name clam shells Reps/Minutes 3 x 10 reps Standing Exercises 3 Standing Exercise Name standing hip abduction Reps/Minutes 2 x 10 reps each side 1 Standing Exercise Name standing calf stretch Comments hold 30 sec each raise left arm Manual Therapy Treatment Soft Tissue Mobilization 1 Body Location adductor, gracilis, and sartorius tendons and musculature Mobilization Type Myofascial Release Intensity/Depth Superficial Body Position Hooklying Joint Mobilizations 1 Joint left hip distraction with manual resistance Body Position Hooklying Comments good tolerance for hip MWM and no pain with hip ER while the left hip was distracted Manual Techniques 1 Type manual stretching in sidelying for the quads and iliopsoas Comments sidelying position PT-OP-R Modalities Start: 06/28/18 14:25 Freq: Status: Active Protocol: Document 07/04/18 14:01 [facility] (Rec: 07/04/18 14:01 [facility] [email or web address]) Ultrasound Therapy Treatment L adductor attachments to pubic ramus Treatment Duration (minutes) 8 Patient Position Supine Coupling Medium Ultrasound Gel Applicator Size (cm2) 5 Mode Setting Continuous Duty Cycle 100% PT-OP-T Assessment and Plan Start: 06/28/18 14:25 Freq: Status: Active Protocol: Document 08/02/18 14:01 [facility] (Rec: 08/02/18 14:05 [facility] [email or web address]) Physical Therapy Assessment Assessment Summary Assessment improving hip extension with decreased clicking of the left hip Physical Therapy Plan Frequency and Duration Frequency of Treatment 2x/Week Duration of Treatment 8 weeks Plan of Care Start Date 06/28/18 Plan of Care End Date 08/23/18 Therapeutic Interventions Therapeutic Interventions Home Exercise Program Joint Mobilizations Manual Therapy Neuromuscular Re-education Patient/Caregiver Education Self-Care/Home Management Soft Tissue Mobilization Therapeutic Exercises Modalities Ultrasound Next Visit Focus/Plan Next Note Type Treatment Note Next Visit Plan progress hip stretching as tolerated
--- NOTE | 2018-08-07 13:43 | PT.OTN ---
Current Diagnoses Strain of adductor muscle, fascia and tendon of unspecified thigh, initial encounter (08/07/18) Physical Therapy Treatment Note PT-OP-A Visit Information Start: 06/28/18 14:25 Freq: Status: Active Protocol: Document 08/07/18 13:37 [facility] (Rec: 08/07/18 13:43 [facility] [email or web address]) Out-Patient Physical Therapy Visit Information Visit Information Visit Type Treatment Note Visit Start Time 09:45 Visit Stop Time 10:30 Total Visit Minutes 45 Visit Number 7 PT-OP-B Current Condition Start: 06/28/18 14:25 Freq: Status: Active Protocol: Document 07/04/18 13:56 [facility] (Rec: 07/04/18 14:01 [facility] [email or web address]) Current Condition History of Current Condition Onset Date February 2018 Current Complaints left sided groin pain that began last February History of Current Condition Jacinda is a 72 year old female who aggravated her left groin when getting out of a [place] chair [place] the [employer] [address] festival. She reports she had sat down in the chair to try it out but then getting back up was difficult and she felt a pain in her left groin with the attempt to get out of the chair. Since that time she has pain with getting in and out of the car or bathtub. She also has increased pain with donning shoes or socks as it is difficult for her to place her left hip into ER. Pain can range from 1-8/10 depending on her activitty. She does have a history of left TKA June 2017, and right TKA April 20 2017. Past medical history also includes L3-4, L4-5, L5-S1 fusion in Jun 2009, and January 2012 PT-OP-C Subjective Start: 06/28/18 14:25 Freq: Status: Active Protocol: Document 08/07/18 13:37 [facility] (Rec: 08/07/18 13:43 [facility] [email or web address]) OP-PT Subjective Patient Comments Patient Comments hip continues to do better then only thing that is still difficult to do is to rest the left heel over the right knee Patient Reported Progress Improving PT-OP-F Manual Assessment Start: 06/28/18 14:25 Freq: Status: Active Protocol: Document 06/28/18 14:26 [facility] (Rec: 06/28/18 15:10 [facility] [email or web address]) Manual Assessments Soft Tissue Assessment Soft Tissue Mobility Assessment tightness in the sartorius, gracillis, and adductor attachments to the pubic ramus with tenderness to palpation ingrid test position recreates pain in the groin Joint Mobility Assessment Joint Mobility Assessment painful hip ER on the left both active and passive, pain is reduced with hip distraction and lateral glide PT-OP-K Range of Motion Start: 06/28/18 14:25 Freq: Status: Active Protocol: Document 06/28/18 14:26 [facility] (Rec: 06/28/18 15:10 [facility] [email or web address]) Hip Goniometric Range of Motion Hip Measured in Degrees Left Hip ROM WFL No Testing Position Supine Flexion w/Knee Flexed 110 Abduction 30 Internal Rotation 10 External Rotation 10 Hip ROM Limitations Hip ROM Limitations Soft Tissue Tightness Muscle Tone Pain Comments pain is reproduced with hip ER in a flexed position, pain also reproduced with hip extension in ingrid test position although hip ext is WFL PT-OP-M Strength Start: 06/28/18 14:25 Freq: Status: Active Protocol: Document 06/28/18 14:26 [facility] (Rec: 06/28/18 15:10 [facility] [email or web address]) Hip Strength Hip Manual Muscle Testing Right Reason Not Measured WFL Left Flexion (L2) 4 Good Extension (S1) 4 Good Abduction 4 Good External Rotation 4 Good Internal Rotation 4 Good Comments pain with resisted ER, extension PT-OP-Q Treatments Start: 06/28/18 14:25 Freq: Status: Active Protocol: Document 08/07/18 13:37 [facility] (Rec: 08/07/18 13:43 [facility] [email or web address]) Cardio Equipment Recumbent Elliptical (Conjur) Duration (Minutes) 5 Therapeutic Exercises Supine Exercises 6 Supine Exercise Name ingrid test positions iliopsoas stretch Reps/Minutes with manual assistance 5 Supine Exercise Name adductor stretch Reps/Minutes with strap 4 Supine Exercise Name single knee to chest stretch 3 Supine Exercise Name piriformis stretch with ankle resting over opposite knee 2 Supine Exercise Name roll outs with theraband Reps/Minutes 3 x 10 1 Supine Exercise Name supine hip roll ins and roll outs Side bilateral Reps/Minutes 2 x 10 Sidelying Exercises 1 Sidelying Exercise Name clam shells Reps/Minutes 3 x 10 reps Standing Exercises 1 Standing Exercise Name standing calf stretch Comments hold 30 sec each raise left arm Manual Therapy Treatment Soft Tissue Mobilization 1 Body Location adductor, gracilis, and sartorius tendons and musculature Mobilization Type Myofascial Release Intensity/Depth Superficial Body Position Hooklying Joint Mobilizations 2 Joint prone hip anterior mobilizations 1 Joint left hip distraction with manual resistance Body Position Hooklying Comments good tolerance for hip MWM and no pain with hip ER while the left hip was distracted Manual Techniques 1 Type manual stretching in sidelying for the quads and iliopsoas Comments sidelying position PT-OP-R Modalities Start: 06/28/18 14:25 Freq: Status: Active Protocol: Document 07/04/18 14:01 [facility] (Rec: 07/04/18 14:01 [facility] [email or web address]) Ultrasound Therapy Treatment L adductor attachments to pubic ramus Treatment Duration (minutes) 8 Patient Position Supine Coupling Medium Ultrasound Gel Applicator Size (cm2) 5 Mode Setting Continuous Duty Cycle 100% PT-OP-T Assessment and Plan Start: 06/28/18 14:25 Freq: Status: Active Protocol: Document 08/07/18 13:37 [facility] (Rec: 08/07/18 13:43 [facility] [email or web address]) Physical Therapy Assessment Assessment Summary Assessment decreased pain into hip ER today following anterior mobilizations Physical Therapy Plan Frequency and Duration Frequency of Treatment 2x/Week Duration of Treatment 8 weeks Plan of Care Start Date 06/28/18 Plan of Care End Date 08/23/18 Therapeutic Interventions Therapeutic Interventions Home Exercise Program Joint Mobilizations Manual Therapy Neuromuscular Re-education Patient/Caregiver Education Self-Care/Home Management Soft Tissue Mobilization Therapeutic Exercises Modalities Ultrasound Next Visit Focus/Plan Next Note Type Treatment Note Next Visit Plan progress hip stretching as tolerated
--- NOTE | 2018-08-09 11:46 | PT.OTN ---
Current Diagnoses Strain of adductor muscle, fascia and tendon of unspecified thigh, initial encounter (08/09/18) Physical Therapy Treatment Note PT-OP-A Visit Information Start: 06/28/18 14:25 Freq: Status: Active Protocol: Document 08/09/18 11:38 [facility] (Rec: 08/09/18 11:46 [facility] [email or web address]) Out-Patient Physical Therapy Visit Information Visit Information Visit Type Treatment Note Visit Start Time 09:45 Visit Stop Time 10:30 Total Visit Minutes 45 Visit Number 8 Evaluation Information Evaluation Date 06/28/18 PT-OP-B Current Condition Start: 06/28/18 14:25 Freq: Status: Active Protocol: Document 07/04/18 13:56 [facility] (Rec: 07/04/18 14:01 [facility] [email or web address]) Current Condition History of Current Condition Onset Date February 2018 Current Complaints left sided groin pain that began last February History of Current Condition Jacinda is a 72 year old female who aggravated her left groin when getting out of a [place] chair at the [employer] festival. She reports she had sat down in the chair to try it out but then getting back up was difficult and she felt a pain in her left groin with the attempt to get out of the chair. Since that time she has pain with getting in and out of the car or bathtub. She also has increased pain with donning shoes or socks as it is difficult for her to place her left hip into ER. Pain can range from 1-8/10 depending on her activitty. She does have a history of left TKA June 2017, and right TKA April 20 2017. Past medical history also includes L3-4, L4-5, L5-S1 fusion in Jun 2009, and January 2012 PT-OP-C Subjective Start: 06/28/18 14:25 Freq: Status: Active Protocol: Document 08/09/18 11:38 [facility] (Rec: 08/09/18 11:46 [facility] [email or web address]) OP-PT Subjective Patient Comments Patient Comments Had carpel tunnel surgery yesterday, had some nausea this am and is not able to use her right hand for any gripping today PT-OP-F Manual Assessment Start: 06/28/18 14:25 Freq: Status: Active Protocol: Document 06/28/18 14:26 [facility] (Rec: 06/28/18 15:10 [facility] [email or web address]) Manual Assessments Soft Tissue Assessment Soft Tissue Mobility Assessment tightness in the sartorius, gracillis, and adductor attachments to the pubic ramus with tenderness to palpation ingrid test position recreates pain in the groin Joint Mobility Assessment Joint Mobility Assessment painful hip ER on the left both active and passive, pain is reduced with hip distraction and lateral glide PT-OP-K Range of Motion Start: 06/28/18 14:25 Freq: Status: Active Protocol: Document 06/28/18 14:26 [facility] (Rec: 06/28/18 15:10 [facility] [email or web address]) Hip Goniometric Range of Motion Hip Measured in Degrees Left Hip ROM WFL No Testing Position Supine Flexion w/Knee Flexed 110 Abduction 30 Internal Rotation 10 External Rotation 10 Hip ROM Limitations Hip ROM Limitations Soft Tissue Tightness Muscle Tone Pain Comments pain is reproduced with hip ER in a flexed position, pain also reproduced with hip extension in ingrid test position although hip ext is WFL PT-OP-M Strength Start: 06/28/18 14:25 Freq: Status: Active Protocol: Document 06/28/18 14:26 [facility] (Rec: 06/28/18 15:10 [facility] [email or web address]) Hip Strength Hip Manual Muscle Testing Right Reason Not Measured WFL Left Flexion (L2) 4 Good Extension (S1) 4 Good Abduction 4 Good External Rotation 4 Good Internal Rotation 4 Good Comments pain with resisted ER, extension PT-OP-Q Treatments Start: 06/28/18 14:25 Freq: Status: Active Protocol: Document 08/09/18 11:38 [facility] (Rec: 08/09/18 11:46 [facility] [email or web address]) Cardio Equipment Recumbent Elliptical (Bleachers) Duration (Minutes) 5 Therapeutic Exercises Supine Exercises 6 Supine Exercise Name ingrid test positions iliopsoas stretch Reps/Minutes with manual assistance Standing Exercises 3 Standing Exercise Name standing hip abduction Reps/Minutes 2 x 10 reps each side 1 Standing Exercise Name standing calf stretch Comments hold 30 sec each raise left arm Manual Therapy Treatment Soft Tissue Mobilization 2 Body Location prone on body pillow MFR to bilateral piriformis 1 Body Location adductor, gracilis, and sartorius tendons and musculature Mobilization Type Myofascial Release Intensity/Depth Superficial Body Position Hooklying Joint Mobilizations 1 Joint left hip distraction with manual resistance Body Position Hooklying Comments good tolerance for hip MWM and no pain with hip ER while the left hip was distracted PT-OP-R Modalities Start: 06/28/18 14:25 Freq: Status: Active Protocol: Document 07/04/18 14:01 [facility] (Rec: 07/04/18 14:01 [facility] [email or web address]) Ultrasound Therapy Treatment L adductor attachments to pubic ramus Treatment Duration (minutes) 8 Patient Position Supine Coupling Medium Ultrasound Gel Applicator Size (cm2) 5 Mode Setting Continuous Duty Cycle 100% PT-OP-T Assessment and Plan Start: 06/28/18 14:25 Freq: Status: Active Protocol: Document 08/09/18 11:38 [facility] (Rec: 08/09/18 11:46 [facility] [email or web address]) Physical Therapy Assessment Assessment Summary Assessment still noting discomort with resting the left heel on right knee but other than that Jacinda notes her left hip is much improved Physical Therapy Plan Frequency and Duration Frequency of Treatment 2x/Week Duration of Treatment 8 weeks Plan of Care Start Date 06/28/18 Plan of Care End Date 08/23/18 Therapeutic Interventions Therapeutic Interventions Home Exercise Program Joint Mobilizations Manual Therapy Neuromuscular Re-education Patient/Caregiver Education Self-Care/Home Management Soft Tissue Mobilization Therapeutic Exercises Modalities Ultrasound Next Visit Focus/Plan Next Note Type Treatment Note Next Visit Plan trial of sit-stand squats next visit
--- NOTE | 2018-08-16 13:35 | PT.OTN ---
Current Diagnoses Strain of adductor muscle, fascia and tendon of unspecified thigh, initial encounter (08/16/18) Physical Therapy Treatment Note PT-OP-A Visit Information Start: 06/28/18 14:25 Freq: Status: Active Protocol: Document 08/16/18 13:19 [facility] (Rec: 08/16/18 13:35 [facility] [email or web address]) Out-Patient Physical Therapy Visit Information Visit Information Visit Type Treatment Note Visit Start Time 09:45 Visit Stop Time 10:30 Total Visit Minutes 55 Visit Number 9 Evaluation Information Evaluation Date 06/28/18 PT-OP-B Current Condition Start: 06/28/18 14:25 Freq: Status: Active Protocol: Document 08/16/18 13:19 [facility] (Rec: 08/16/18 13:35 [facility] [email or web address]) Current Condition History of Current Condition Onset Date February 2018 Current Complaints left sided groin pain that began last February History of Current Condition Jacinda is a 72 year old female who aggravated her left groin when getting out of a [place] chair at the [place] festival. She reports she had sat down in the chair to try it out but then getting back up was difficult and she felt a pain in her left groin with the attempt to get out of the chair. Since that time she has pain with getting in and out of the car or bathtub. She also has increased pain with donning shoes or socks as it is difficult for her to place her left hip into ER. Pain can range from 1-8/10 depending on her activitty. She does have a history of left TKA June 2017, and right TKA April 20 2017. Past medical history also includes L3-4, L4-5, L5-S1 fusion in Jun 2009, and January 2012 Treatment Goals Patient/Caregiver Goals to decrease pain and improve functional mobility Prior Functional Status Baseline Function- ADL's Independent Baseline Function- Mobility Independent Current Functional Impairments (Reported) Functional Limitations- ADL's improvements with all activities except still has difficulities with crossing her left leg over her right and donning shoes PT-OP-C Subjective Start: 06/28/18 14:25 Freq: Status: Active Protocol: Document 08/16/18 13:19 [facility] (Rec: 08/16/18 13:35 [facility] [email or web address]) OP-PT Subjective Patient Comments Patient Comments Jacinda reports she is continuing to do better with her hip. She still has difficutly crossing her left leg over the right Patient Reported Progress Improving PT-OP-F Manual Assessment Start: 06/28/18 14:25 Freq: Status: Active Protocol: Document 08/16/18 13:19 [facility] (Rec: 08/16/18 13:35 [facility] [email or web address]) Manual Assessments Soft Tissue Assessment Soft Tissue Mobility Assessment there is no longer pain with iliopsoas stretching and Jacinda is able to stretch her iliopsoas in standing. The adductors still tend to guard Joint Mobility Assessment Joint Mobility Assessment painful hip ER on the left both active and passive, pain is reduced with hip distraction and lateral glide PT-OP-K Range of Motion Start: 06/28/18 14:25 Freq: Status: Active Protocol: Document 06/28/18 14:26 [facility] (Rec: 06/28/18 15:10 [facility] [email or web address]) Hip Goniometric Range of Motion Hip Measured in Degrees Left Hip ROM WFL No Testing Position Supine Flexion w/Knee Flexed 110 Abduction 30 Internal Rotation 10 External Rotation 10 Hip ROM Limitations Hip ROM Limitations Soft Tissue Tightness Muscle Tone Pain Comments pain is reproduced with hip ER in a flexed position, pain also reproduced with hip extension in ingrid test position although hip ext is WFL PT-OP-M Strength Start: 06/28/18 14:25 Freq: Status: Active Protocol: Document 06/28/18 14:26 [facility] (Rec: 06/28/18 15:10 [facility] [email or web address]) Hip Strength Hip Manual Muscle Testing Right Reason Not Measured WFL Left Flexion (L2) 4 Good Extension (S1) 4 Good Abduction 4 Good External Rotation 4 Good Internal Rotation 4 Good Comments pain with resisted ER, extension PT-OP-Q Treatments Start: 06/28/18 14:25 Freq: Status: Active Protocol: Document 08/09/18 11:38 [facility] (Rec: 08/09/18 11:46 [facility] [email or web address]) Cardio Equipment Recumbent Elliptical (BoldIQ) Duration (Minutes) 5 Therapeutic Exercises Supine Exercises 6 Supine Exercise Name ingrid test positions iliopsoas stretch Reps/Minutes with manual assistance Standing Exercises 3 Standing Exercise Name standing hip abduction Reps/Minutes 2 x 10 reps each side 1 Standing Exercise Name standing calf stretch Comments hold 30 sec each raise left arm Manual Therapy Treatment Soft Tissue Mobilization 2 Body Location prone on body pillow MFR to bilateral piriformis 1 Body Location adductor, gracilis, and sartorius tendons and musculature Mobilization Type Myofascial Release Intensity/Depth Superficial Body Position Hooklying Joint Mobilizations 1 Joint left hip distraction with manual resistance Body Position Hooklying Comments good tolerance for hip MWM and no pain with hip ER while the left hip was distracted PT-OP-R Modalities Start: 06/28/18 14:25 Freq: Status: Active Protocol: Document 07/04/18 14:01 [facility] (Rec: 07/04/18 14:01 [facility] [email or web address]) Ultrasound Therapy Treatment L adductor attachments to pubic ramus Treatment Duration (minutes) 8 Patient Position Supine Coupling Medium Ultrasound Gel Applicator Size (cm2) 5 Mode Setting Continuous Duty Cycle 100% PT-OP-T Assessment and Plan Start: 06/28/18 14:25 Freq: Status: Active Protocol: Document 08/16/18 13:19 [facility] (Rec: 08/16/18 13:35 [facility] [email or web address]) Physical Therapy Assessment Goals Five Impairment decreased gluteus medius strength Short Term Goal (STG) Improve left gluteus medius strength from 3/5 to 4/5 or better Four Impairment painful hip ER, Jacinda is unable to rest her left heel over her right knee Care Home Goal (LTG) Improve full painfree hip ER with manual therapy techniques and gentle stretches Three Short Term Goal (STG) reduce spasm of these muscle groups to help improve painfree hip ROM Two Impairment pain with transitional movements Care Home Goal (LTG) Jacinda is able to transfer in and out of her car or bathtub without pain in the left groin GOAL MET LTG Duration 6-8 weeks One Impairment pain in the groin rated 1-8 depending on activity level Short Term Goal (STG) Jacinda has decreased c/o groin pain to palpation and is able to roll in bed without pain STG Duration 4 weeks GOAL MET Progress Towards Goals Progress Towards Goals Progressing Toward Goals Progress Comments good overall progress. Left hip ER limitations and adductor guarding along with weakness of the gluteus medius are the biggest issues now. Pain is much reduced Assessment Summary Assessment Jacinda is making overall good progress in physical therapy. She notes she is not experiencing pain unless she tries to cross her left heel over her right knee. She no longer has pain to palpation at the pubic bone. Adductors are still tight but reduced overall from where they were. I have started adding gluteus medius strengthening as she is weak in this area and Jacinda is tolerating this well . She would benefit from continued PT for painfree hip ER and improved strength Physical Therapy Plan Frequency and Duration Frequency of Treatment 2x/Week Duration of Treatment 8 weeks Plan of Care Start Date 08/16/18 Plan of Care End Date 10/18/18 Therapeutic Interventions Therapeutic Interventions Home Exercise Program Joint Mobilizations Manual Therapy Neuromuscular Re-education Patient/Caregiver Education Self-Care/Home Management Soft Tissue Mobilization Therapeutic Exercises Modalities Ultrasound Next Visit Focus/Plan Next Note Type Treatment Note Next Visit Plan progress strengthening as patient can tolerate for the lateral hip, continue to work on manual hip mobilizations to improved hip ER
--- NOTE | 2018-08-16 13:36 | PT.OPPOC ---
Current Diagnoses Strain of adductor muscle, fascia and tendon of unspecified thigh, initial encounter (08/16/18) Provider Visit Care Team Role Provider Type Isabell Fung DO Attending Provider Physician Primary Care Provider Specialty: Family Practice Address: [address] [place] [address], [id number] Email: [email or web address] Plan Of Care PT-OP-T Assessment and Plan Start: 06/28/18 14:25 Freq: Status: Active Protocol: Document 08/16/18 13:19 [facility] (Rec: 08/16/18 13:35 [facility] [email or web address]) Physical Therapy Assessment Goals Five Impairment decreased gluteus medius strength Short Term Goal (STG) Improve left gluteus medius strength from 3/5 to 4/5 or better Four Impairment painful hip ER, Jacinda is unable to rest her left heel over her right knee Fpc Goal (LTG) Improve full painfree hip ER with manual therapy techniques and gentle stretches Three Short Term Goal (STG) reduce spasm of these muscle groups to help improve painfree hip ROM Two Impairment pain with transitional movements Fpc Goal (LTG) Jacinda is able to transfer in and out of her car or bathtub without pain in the left groin GOAL MET LTG Duration 6-8 weeks One Impairment pain in the groin rated 1-8 depending on activity level Short Term Goal (STG) Jacinda has decreased c/o groin pain to palpation and is able to roll in bed without pain STG Duration 4 weeks GOAL MET Progress Towards Goals Progress Towards Goals Progressing Toward Goals Progress Comments good overall progress. Left hip ER limitations and adductor guarding along with weakness of the gluteus medius are the biggest issues now. Pain is much reduced Assessment Summary Assessment Jacnida is making overall good progress in physical therapy. She notes she is not experiencing pain unless she tries to cross her left heel over her right knee. She no longer has pain to palpation at the pubic bone. Adductors are still tight but reduced overall from where they were. I have started adding gluteus medius strengthening as she is weak in this area and Jacinda is tolerating this well . She would benefit from continued PT for painfree hip ER and imrpoved strength Physical Therapy Plan Frequency and Duration Frequency of Treatment 2x/Week Duration of Treatment 8 weeks Plan of Care Start Date 08/16/18 Plan of Care End Date 10/18/18 Therapeutic Interventions Therapeutic Interventions Home Exercise Program Joint Mobilizations Manual Therapy Neuromuscular Re-education Patient/Caregiver Education Self-Care/Home Management Soft Tissue Mobilization Therapeutic Exercises Modalities Ultrasound Next Visit Focus/Plan Next Note Type Treatment Note Next Visit Plan progress strengthening as patient can tolerate for the lateral hip, continue to work on manual hip mobilizations to improved hip ER Plan of Care Dates Plan of Care Start Date 08/16/18 Plan of Care End Date 10/18/18 Please Sign and Return: I have reviewed this Plan of Care and certify that the skilled therapy services above are required to meet the patient?s needs. Physician Signature Date Printed Name and Credentials Clinical Instructor Signature Printed Name and Credentials
--- NOTE | 2018-08-21 17:16 | PT.OTN ---
Current Diagnoses Strain of adductor muscle, fascia and tendon of unspecified thigh, initial encounter (08/21/18) Physical Therapy Treatment Note PT-OP-A Visit Information Start: 06/28/18 14:25 Freq: Status: Active Protocol: Document 08/21/18 10:26 [facility] (Rec: 08/21/18 10:31 [facility] [email or web address]) Out-Patient Physical Therapy Visit Information Visit Information Visit Type Treatment Note Visit Start Time 09:45 Visit Stop Time 10:30 Total Visit Minutes 50 Visit Number 10 Evaluation Information Evaluation Date 06/28/18 PT-OP-B Current Condition Start: 06/28/18 14:25 Freq: Status: Active Protocol: Document 08/16/18 13:19 [facility] (Rec: 08/16/18 13:35 [facility] [email or web address]) Current Condition History of Current Condition Onset Date February 2018 Current Complaints left sided groin pain that began last February History of Current Condition Jacinda is a 72 year old female who aggravated her left groin when [place] [employer] [place]. She reports she had sat down in the chair to try it out but then getting back up was difficult and she felt a pain in her left groin with the attempt to get out of the chair. Since that time she has pain with getting in and out of the car or bathtub. She also has increased pain with donning shoes or socks as it is difficult for her to place her left hip into ER. Pain can range from 1-8/10 depending on her activity. She does have a history of left TKA June 2017, and right TKA April 20 2017. Past medical history also includes L3-4, L4-5, L5-S1 fusion in Jun 2009, and January 2012 Treatment Goals Patient/Caregiver Goals to decrease pain and improve functional mobility Prior Functional Status Baseline Function- ADL's Independent Baseline Function- Mobility Independent Current Functional Impairments (Reported) Functional Limitations- ADL's improvements with all activities except still has difficulities with crossing her left leg over her right and donning shoes PT-OP-C Subjective Start: 06/28/18 14:25 Freq: Status: Active Protocol: Document 08/21/18 10:26 [facility] (Rec: 08/21/18 10:31 [facility] [email or web address]) OP-PT Subjective Patient Comments Patient Comments doing better overall but still left heel to knee is difficult to perform. Jacinda notes she has not been doing all her exercises at home. Patient Reported Progress Improving PT-OP-F Manual Assessment Start: 06/28/18 14:25 Freq: Status: Active Protocol: Document 08/16/18 13:19 [facility] (Rec: 08/16/18 13:35 [facility] [email or web address]) Manual Assessments Soft Tissue Assessment Soft Tissue Mobility Assessment there is no longer pain with iliopsoas stretching and Jacinda is able to stretch her iliopsoas in standing. The adductors still tend to guard Joint Mobility Assessment Joint Mobility Assessment painful hip ER on the left both active and passive, pain is reduced with hip distraction and lateral glide PT-OP-K Range of Motion Start: 06/28/18 14:25 Freq: Status: Active Protocol: Document 06/28/18 14:26 [facility] (Rec: 06/28/18 15:10 [facility] [email or web address]) Hip Goniometric Range of Motion Hip Measured in Degrees Left Hip ROM WFL No Testing Position Supine Flexion w/Knee Flexed 110 Abduction 30 Internal Rotation 10 External Rotation 10 Hip ROM Limitations Hip ROM Limitations Soft Tissue Tightness Muscle Tone Pain Comments pain is reproduced with hip ER in a flexed position, pain also reproduced with hip extension in ingrid test position although hip ext is WFL PT-OP-M Strength Start: 06/28/18 14:25 Freq: Status: Active Protocol: Document 06/28/18 14:26 [facility] (Rec: 06/28/18 15:10 [facility] [email or web address]) Hip Strength Hip Manual Muscle Testing Right Reason Not Measured WFL Left Flexion (L2) 4 Good Extension (S1) 4 Good Abduction 4 Good External Rotation 4 Good Internal Rotation 4 Good Comments pain with resisted ER, extension PT-OP-Q Treatments Start: 06/28/18 14:25 Freq: Status: Active Protocol: Document 08/21/18 10:26 [facility] (Rec: 08/21/18 10:31 [facility] [email or web address]) Cardio Equipment Recumbent Elliptical (Biodex) Duration (Minutes) 5 Gym Equipment Shuttle Recovery Bilateral Squats Details bilateral squats Resistance 50 lbs Shuttle Recovery Platform Stable Reps/Time 3 x 10 Therapeutic Exercises Supine Exercises 6 Supine Exercise Name ingrid test positions iliopsoas stretch Reps/Minutes with manual assistance 5 Supine Exercise Name adductor stretch Reps/Minutes with strap 4 Supine Exercise Name single knee to chest stretch Standing Exercises 3 Standing Exercise Name standing hip abduction Reps/Minutes 2 x 10 reps each side 1 Standing Exercise Name standing calf stretch Comments hold 30 sec each raise left arm PT-OP-R Modalities Start: 06/28/18 14:25 Freq: Status: Active Protocol: Document 07/04/18 14:01 [facility] (Rec: 07/04/18 14:01 [facility] [email or web address]) Ultrasound Therapy Treatment L adductor attachments to pubic ramus Treatment Duration (minutes) 8 Patient Position Supine Coupling Medium Ultrasound Gel Applicator Size (cm2) 5 Mode Setting Continuous Duty Cycle 100% PT-OP-T Assessment and Plan Start: 06/28/18 14:25 Freq: Status: Active Protocol: Document 08/21/18 10:26 [facility] (Rec: 08/21/18 17:16 [facility] [email or web address]) Physical Therapy Assessment Assessment Summary Assessment Jacinda is tolerating additional exercise and tolerated the shuttle leg press today without increased pain into the groin. She still has a limitation with hip ER on the left Physical Therapy Plan Frequency and Duration Frequency of Treatment 2x/Week Duration of Treatment 8 weeks Plan of Care Start Date 08/16/18 Plan of Care End Date 10/18/18 Therapeutic Interventions Therapeutic Interventions Home Exercise Program Joint Mobilizations Manual Therapy Neuromuscular Re-education Patient/Caregiver Education Self-Care/Home Management Soft Tissue Mobilization Therapeutic Exercises Modalities Ultrasound Next Visit Focus/Plan Next Note Type Treatment Note Next Visit Plan progress strengthening as patient can tolerate for the lateral hip, continue to work on manual hip mobilizations to improved hip ER
--- NOTE | 2018-08-23 14:51 | PT.OTN ---
Current Diagnoses Strain of adductor muscle, fascia and tendon of unspecified thigh, initial encounter (08/23/18) Physical Therapy Treatment Note PT-OP-A Visit Information Start: 06/28/18 14:25 Freq: Status: Active Protocol: Document 08/23/18 14:37 [facility] (Rec: 08/23/18 14:50 [facility] [email or web address]) Out-Patient Physical Therapy Visit Information Visit Information Visit Type Treatment Note Visit Start Time 09:45 Visit Stop Time 10:30 Total Visit Minutes 45 Visit Number 11 Evaluation Information Evaluation Date 06/28/18 PT-OP-B Current Condition Start: 06/28/18 14:25 Freq: Status: Active Protocol: Document 08/16/18 13:19 [facility] (Rec: 08/16/18 13:35 [facility] [email or web address]) Current Condition History of Current Condition Onset Date February 2018 Current Complaints left sided groin pain that began last February History of Current Condition Jacinda is a 72 year old female who aggravated her left groin when getting out of a [place]ir[place] chair at the [employer] festival. She reports she had sat down in the chair to try it out but then getting back up was difficult and she felt a pain in her left groin with the attempt to get out of the chair. Since that time she has pain with getting in and out of the car or bathtub. She also has increased pain with donning shoes or socks as it is difficult for her to place her left hip into ER. Pain can range from 1-8/10 depending on her activitty. She does have a history of left TKA June 2017, and right TKA April 20 2017. Past medical history also includes L3-4, L4-5, L5-S1 fusion in Jun 2009, and January 2012 Treatment Goals Patient/Caregiver Goals to decrease pain and improve functional mobility Prior Functional Status Baseline Function- ADL's Independent Baseline Function- Mobility Independent Current Functional Impairments (Reported) Functional Limitations- ADL's improvements with all activities except still has difficulities with crossing her left leg over her right and donning shoes PT-OP-C Subjective Start: 06/28/18 14:25 Freq: Status: Active Protocol: Document 08/23/18 14:37 [facility] (Rec: 08/23/18 14:50 [facility] [email or web address]) OP-PT Subjective Patient Comments Patient Comments Jacinda reports she woke up this am and her left leg was in a ER position without any pain, she was excited about this. Patient Reported Progress Improving PT-OP-F Manual Assessment Start: 06/28/18 14:25 Freq: Status: Active Protocol: Document 08/16/18 13:19 [facility] (Rec: 08/16/18 13:35 [facility] [email or web address]) Manual Assessments Soft Tissue Assessment Soft Tissue Mobility Assessment there is no longer pain with iliopsoas stretching and Jacinda is able to stretch her iliopsoas in standing. The adductors still tend to guard Joint Mobility Assessment Joint Mobility Assessment painful hip ER on the left both active and passive, pain is reduced with hip distraction and lateral glide PT-OP-K Range of Motion Start: 06/28/18 14:25 Freq: Status: Active Protocol: Document 06/28/18 14:26 [facility] (Rec: 06/28/18 15:10 [facility] [email or web address]) Hip Goniometric Range of Motion Hip Measured in Degrees Left Hip ROM WFL No Testing Position Supine Flexion w/Knee Flexed 110 Abduction 30 Internal Rotation 10 External Rotation 10 Hip ROM Limitations Hip ROM Limitations Soft Tissue Tightness Muscle Tone Pain Comments pain is reproduced with hip ER in a flexed position, pain also reproduced with hip extension in ingrid test position although hip ext is WFL PT-OP-M Strength Start: 06/28/18 14:25 Freq: Status: Active Protocol: Document 06/28/18 14:26 [facility] (Rec: 06/28/18 15:10 [facility] [email or web address]) Hip Strength Hip Manual Muscle Testing Right Reason Not Measured WFL Left Flexion (L2) 4 Good Extension (S1) 4 Good Abduction 4 Good External Rotation 4 Good Internal Rotation 4 Good Comments pain with resisted ER, extension PT-OP-Q Treatments Start: 06/28/18 14:25 Freq: Status: Active Protocol: Document 08/23/18 14:37 [facility] (Rec: 08/23/18 14:50 [facility] [email or web address]) Therapeutic Exercises Supine Exercises 6 Supine Exercise Name ingrid test positions iliopsoas stretch Reps/Minutes with manual assistance 5 Supine Exercise Name adductor stretch Reps/Minutes with strap 4 Supine Exercise Name single knee to chest stretch 3 Supine Exercise Name piriformis stretch with ankle resting over opposite knee 2 Supine Exercise Name roll outs with theraband Reps/Minutes 3 x 10 Standing Exercises 3 Standing Exercise Name standing hip abduction Reps/Minutes 2 x 10 reps each side 1 Standing Exercise Name standing calf stretch Comments hold 30 sec each raise left arm Manual Therapy Treatment Soft Tissue Mobilization 1 Body Location adductor, gracilis, and sartorius tendons and musculature Mobilization Type Myofascial Release Intensity/Depth Superficial Body Position Hooklying Joint Mobilizations 1 Joint left hip distraction with manual resistance Body Position Hooklying Comments good tolerance for hip MWM and no pain with hip ER while the left hip was distracted PT-OP-R Modalities Start: 06/28/18 14:25 Freq: Status: Active Protocol: Document 08/23/18 14:50 [facility] (Rec: 08/23/18 14:51 [facility] [email or web address]) Hot Pack/Cold Pack Treatment Hot Pack Location left adductors Comments 10 min following treatment PT-OP-T Assessment and Plan Start: 06/28/18 14:25 Freq: Status: Active Protocol: Document 08/23/18 14:37 [facility] (Rec: 08/23/18 14:50 [facility] [email or web address]) Physical Therapy Assessment Assessment Summary Assessment good tolerance for all ther ex ER is improving but limited at end range. Jacinda's goal is to be able to cross her left ankle over her right knee Physical Therapy Plan Frequency and Duration Frequency of Treatment 2x/Week Duration of Treatment 8 weeks Plan of Care Start Date 08/16/18 Plan of Care End Date 10/18/18 Therapeutic Interventions Therapeutic Interventions Home Exercise Program Joint Mobilizations Manual Therapy Neuromuscular Re-education Patient/Caregiver Education Self-Care/Home Management Soft Tissue Mobilization Therapeutic Exercises Modalities Ultrasound Next Visit Focus/Plan Next Note Type Treatment Note Next Visit Plan revisit the shuttle leg press and progress hip stability exercises, progress hip ER as tolerated
--- NOTE | 2018-08-30 17:14 | PT.OTN ---
Current Diagnoses Strain of adductor muscle, fascia and tendon of unspecified thigh, initial encounter (08/30/18) Physical Therapy Treatment Note PT-OP-A Visit Information Start: 06/28/18 14:25 Freq: Status: Active Protocol: Document 08/30/18 09:00 [facility] (Rec: 08/30/18 17:14 [facility] [email or web address]) Out-Patient Physical Therapy Visit Information Visit Information Visit Type Treatment Note Visit Start Time 09:00 Visit Stop Time 09:55 Total Visit Minutes 55 Visit Number 12 PT-OP-B Current Condition Start: 06/28/18 14:25 Freq: Status: Active Protocol: Document 08/16/18 13:19 [facility] (Rec: 08/16/18 13:35 [facility] [email or web address]) Current Condition History of Current Condition Onset Date February 2018 Current Complaints left sided groin pain that began last February History of Current Condition Jacinda is a 72 year old female who aggravated her left groin when getting out of a [place] chair at the [employer] festival. She reports she had sat down in the chair to try it out but then getting back up was difficult and she felt a pain in her left groin with the attempt to get out of the chair. Since that time she has pain with getting in and out of the car or bathtub. She also has increased pain with donning shoes or socks as it is difficult for her to place her left hip into ER. Pain can range from 1-8/10 depending on her activitty. She does have a history of left TKA June 2017, and right TKA April 20 2017. Past medical history also includes L3-4, L4-5, L5-S1 fusion in Jun 2009, and January 2012 Treatment Goals Patient/Caregiver Goals to decrease pain and improve functional mobility Prior Functional Status Baseline Function- ADL's Independent Baseline Function- Mobility Independent Current Functional Impairments (Reported) Functional Limitations- ADL's improvements with all activities except still has difficulities with crossing her left leg over her right and donning shoes PT-OP-C Subjective Start: 06/28/18 14:25 Freq: Status: Active Protocol: Document 08/30/18 09:00 [facility] (Rec: 08/30/18 17:14 [facility] [email or web address]) OP-PT Subjective Patient Comments Patient Comments Jacinda notes overall she is doing better. Her hip has better movement and less pain. She still has difficulty sitting with left ankle crossed over the right knee Patient Reported Progress Improving PT-OP-F Manual Assessment Start: 06/28/18 14:25 Freq: Status: Active Protocol: Document 08/16/18 13:19 [facility] (Rec: 08/16/18 13:35 [facility] [email or web address]) Manual Assessments Soft Tissue Assessment Soft Tissue Mobility Assessment there is no longer pain with iliopsoas stretching and Jacinda is able to stretch her iliopsoas in standing. The adductors still tend to guard Joint Mobility Assessment Joint Mobility Assessment painful hip ER on the left both active and passive, pain is reduced with hip distraction and lateral glide PT-OP-K Range of Motion Start: 06/28/18 14:25 Freq: Status: Active Protocol: Document 06/28/18 14:26 [facility] (Rec: 06/28/18 15:10 [facility] [email or web address]) Hip Goniometric Range of Motion Hip Measured in Degrees Left Hip ROM WFL No Testing Position Supine Flexion w/Knee Flexed 110 Abduction 30 Internal Rotation 10 External Rotation 10 Hip ROM Limitations Hip ROM Limitations Soft Tissue Tightness Muscle Tone Pain Comments pain is reproduced with hip ER in a flexed position, pain also reproduced with hip extension in ingrid test position although hip ext is WFL PT-OP-M Strength Start: 06/28/18 14:25 Freq: Status: Active Protocol: Document 06/28/18 14:26 [facility] (Rec: 06/28/18 15:10 [facility] [email or web address]) Hip Strength Hip Manual Muscle Testing Right Reason Not Measured WFL Left Flexion (L2) 4 Good Extension (S1) 4 Good Abduction 4 Good External Rotation 4 Good Internal Rotation 4 Good Comments pain with resisted ER, extension PT-OP-Q Treatments Start: 06/28/18 14:25 Freq: Status: Active Protocol: Document 08/30/18 09:00 [facility] (Rec: 08/30/18 17:14 [facility] [email or web address]) Gym Equipment Shuttle Recovery Unilateral Squats Details single leg squats Resistance 25# Shuttle Recovery Platform Stable Reps/Time 3x10 Bilateral Squats Details bilateral squats Resistance 50 lbs Shuttle Recovery Platform Stable Reps/Time 3 x 10 Therapeutic Exercises Supine Exercises 5 Supine Exercise Name adductor stretch Reps/Minutes with strap 4 Supine Exercise Name single knee to chest stretch 3 Supine Exercise Name piriformis stretch with ankle resting over opposite knee 2 Supine Exercise Name roll outs with theraband Reps/Minutes 3 x 10 Sidelying Exercises 1 Sidelying Exercise Name clam shells Reps/Minutes 3 x 10 Standing Exercises 3 Standing Exercise Name standing hip abduction Reps/Minutes 2 x 10 reps each side 2 Standing Exercise Name standing quad stretch Comments left leg behind with foot on a chair 1 Standing Exercise Name standing calf stretch Comments hold 30 sec each raise left arm Manual Therapy Treatment Joint Mobilizations 2 Joint prone hip anterior mobilizations 1 Joint left hip distraction with manual resistance Body Position Hooklying Comments good tolerance for hip MWM and no pain with hip ER while the left hip was distracted Manual Techniques 1 Type manual stretching in sidelying for the quads and iliopsoas Comments sidelying position PT-OP-R Modalities Start: 06/28/18 14:25 Freq: Status: Active Protocol: Document 08/30/18 09:00 [facility] (Rec: 08/30/18 17:14 [facility] [email or web address]) Hot Pack/Cold Pack Treatment Hot Pack Location left adductors Comments 10 min following treatment PT-OP-T Assessment and Plan Start: 06/28/18 14:25 Freq: Status: Active Protocol: Document 08/30/18 09:00 [facility] (Rec: 08/30/18 17:14 [facility] [email or web address]) Physical Therapy Assessment Assessment Summary Assessment overall decreased tightness in the adductors and iliopsoas now. Hip ER slowly improving and is still the focus to improve this without pain Physical Therapy Plan Frequency and Duration Frequency of Treatment 2x/Week Duration of Treatment 8 weeks Plan of Care Start Date 08/16/18 Plan of Care End Date 10/18/18 Therapeutic Interventions Therapeutic Interventions Home Exercise Program Joint Mobilizations Manual Therapy Neuromuscular Re-education Patient/Caregiver Education Self-Care/Home Management Soft Tissue Mobilization Therapeutic Exercises Modalities Ultrasound Next Visit Focus/Plan Next Note Type Treatment Note Next Visit Plan progress strengthening, add sit-stand and continue working hip ER
--- NOTE | 2018-09-12 13:56 | PT.OTN ---
Current Diagnoses Strain of adductor muscle, fascia and tendon of unspecified thigh, initial encounter (09/12/18) Physical Therapy Treatment Note PT-OP-A Visit Information Start: 06/28/18 14:25 Freq: Status: Active Protocol: Document 08/30/18 09:00 [facility] (Rec: 08/30/18 17:14 [facility] [email or web address]) Out-Patient Physical Therapy Visit Information Visit Information Visit Type Treatment Note Visit Start Time 09:00 Visit Stop Time 09:55 Total Visit Minutes 55 Visit Number 12 PT-OP-B Current Condition Start: 06/28/18 14:25 Freq: Status: Active Protocol: Document 08/16/18 13:19 [facility] (Rec: 08/16/18 13:35 [facility] [email or web address]) Current Condition History of Current Condition Onset Date February 2018 Current Complaints left sided groin pain that began last February History of Current Condition Jacinda is a 72 year old female who aggravated her left groin when getting out of a [place]irondack chair [place] the [employer] festival. She reports she had sat down in the chair to try it out but then getting back up was difficult and she felt a pain in her left groin with the attempt to get out of the chair. Since that time she has pain with getting in and out of the car or bathtub. She also has increased pain with donning shoes or socks as it is difficult for her to place her left hip into ER. Pain can range from 1-8/10 depending on her activitty. She does have a history of left TKA June 2017, and right TKA April 20 2017. Past medical history also includes L3-4, L4-5, L5-S1 fusion in Jun 2009, and January 2012 Treatment Goals Patient/Caregiver Goals to decrease pain and improve functional mobility Prior Functional Status Baseline Function- ADL's Independent Baseline Function- Mobility Independent Current Functional Impairments (Reported) Functional Limitations- ADL's improvements with all activities except still has difficulities with crossing her left leg over her right and donning shoes PT-OP-C Subjective Start: 06/28/18 14:25 Freq: Status: Active Protocol: Document 09/12/18 13:50 [facility] (Rec: 09/12/18 13:56 [facility] [email or web address]) OP-PT Subjective Patient Comments Patient Comments Jacinda reports she is able to sit on a low stool now without pain, she can tell the difference between the two sides but pain is decreased Patient Reported Progress Improving PT-OP-F Manual Assessment Start: 06/28/18 14:25 Freq: Status: Active Protocol: Document 08/16/18 13:19 [facility] (Rec: 08/16/18 13:35 [facility] [email or web address]) Manual Assessments Soft Tissue Assessment Soft Tissue Mobility Assessment there is no longer pain with iliopsoas stretching and Jacinda is able to stretch her iliopsoas in standing. The adductors still tend to guard Joint Mobility Assessment Joint Mobility Assessment painful hip ER on the left both active and passive, pain is reduced with hip distraction and lateral glide PT-OP-K Range of Motion Start: 06/28/18 14:25 Freq: Status: Active Protocol: Document 06/28/18 14:26 [facility] (Rec: 06/28/18 15:10 [facility] [email or web address]) Hip Goniometric Range of Motion Hip Measured in Degrees Left Hip ROM WFL No Testing Position Supine Flexion w/Knee Flexed 110 Abduction 30 Internal Rotation 10 External Rotation 10 Hip ROM Limitations Hip ROM Limitations Soft Tissue Tightness Muscle Tone Pain Comments pain is reproduced with hip ER in a flexed position, pain also reproduced with hip extension in ingrid test position although hip ext is WFL PT-OP-M Strength Start: 06/28/18 14:25 Freq: Status: Active Protocol: Document 06/28/18 14:26 [facility] (Rec: 06/28/18 15:10 [facility] [email or web address]) Hip Strength Hip Manual Muscle Testing Right Reason Not Measured WFL Left Flexion (L2) 4 Good Extension (S1) 4 Good Abduction 4 Good External Rotation 4 Good Internal Rotation 4 Good Comments pain with resisted ER, extension PT-OP-Q Treatments Start: 06/28/18 14:25 Freq: Status: Active Protocol: Document 09/12/18 13:50 [facility] (Rec: 09/12/18 13:56 [facility] [email or web address]) Cardio Equipment Recumbent Elliptical (FONU2) Duration (Minutes) 5 Resistance level 4 Gym Equipment Shuttle Recovery Unilateral Squats Details single leg squats Resistance 25# Shuttle Recovery Platform Stable Reps/Time 3x10 Bilateral Squats Details bilateral squats Resistance 50 lbs Shuttle Recovery Platform Stable Reps/Time 3 x 10 Therapeutic Exercises Supine Exercises 6 Supine Exercise Name ingrid test positions iliopsoas stretch Reps/Minutes with manual assistance 5 Supine Exercise Name adductor stretch Reps/Minutes with strap 4 Supine Exercise Name single knee to chest stretch 3 Supine Exercise Name piriformis stretch with ankle resting over opposite knee Sidelying Exercises 1 Sidelying Exercise Name clam shells Reps/Minutes 3 x 10 Standing Exercises 4 Standing Exercise Name standing single leg balance Reps/Minutes 2 x 30 seconds 3 Standing Exercise Name standing hip abduction Reps/Minutes 2 x 10 reps each side 2 Standing Exercise Name standing quad stretch Comments left leg behind with foot on a chair 1 Standing Exercise Name standing calf stretch Comments hold 30 sec each raise left arm Manual Therapy Treatment Joint Mobilizations 1 Joint left hip distraction with manual resistance Body Position Hooklying Comments good tolerance for hip MWM and no pain with hip ER while the left hip was distracted Manual Techniques 1 Type manual stretching in sidelying for the quads and iliopsoas Comments sidelying position PT-OP-R Modalities Start: 06/28/18 14:25 Freq: Status: Active Protocol: Document 08/30/18 09:00 [facility] (Rec: 08/30/18 17:14 [facility] [email or web address]) Hot Pack/Cold Pack Treatment Hot Pack Location left adductors Comments 10 min following treatment PT-OP-T Assessment and Plan Start: 06/28/18 14:25 Freq: Status: Active Protocol: Document 09/12/18 13:50 [facility] (Rec: 09/12/18 13:56 [facility] [email or web address]) Physical Therapy Assessment Assessment Summary Assessment decreased muscle guarding and improving ROM, still some pinching at end range flexion and ER Physical Therapy Plan Frequency and Duration Frequency of Treatment 2x/Week Duration of Treatment 8 weeks Plan of Care Start Date 08/16/18 Plan of Care End Date 10/18/18 Therapeutic Interventions Therapeutic Interventions Home Exercise Program Joint Mobilizations Manual Therapy Neuromuscular Re-education Patient/Caregiver Education Self-Care/Home Management Soft Tissue Mobilization Therapeutic Exercises Modalities Ultrasound Next Visit Focus/Plan Next Note Type Treatment Note Next Visit Plan progress strengthening, add sit-stand and continue working hip ER
--- NOTE | 2018-09-19 09:03 | PT.OTN ---
Current Diagnoses Strain of adductor muscle, fascia and tendon of unspecified thigh, initial encounter (09/19/18) Physical Therapy Treatment Note PT-OP-A Visit Information Start: 06/28/18 14:25 Freq: Status: Active Protocol: Document 09/19/18 08:14 [facility] (Rec: 09/19/18 08:52 [facility] [id number]) Out-Patient Physical Therapy Visit Information Visit Information Visit Type Treatment Note Visit Start Time 08:15 Visit Stop Time 09:10 Total Visit Minutes 55 Visit Number 14 Number of SUBWAY TRAIN OPERATOR Visits 0 Evaluation Information Evaluation Date 06/28/18 PT-OP-B Current Condition Start: 06/28/18 14:25 Freq: Status: Active Protocol: Document 08/16/18 13:19 [facility] (Rec: 08/16/18 13:35 [facility] [email or web address]) Current Condition History of Current Condition Onset Date February 2018 Current Complaints left sided groin pain that began last February History of Current Condition Jacinda is a 72 year old female who aggravated her left groin when getting out of a [place]irondack chair at the [employer] festival. She reports she had sat down in the chair to try it out but then getting back up was difficult and she felt a pain in her left groin with the attempt to get out of the chair. Since that time she has pain with getting in and out of the car or bathtub. She also has increased pain with donning shoes or socks as it is difficult for her to place her left hip into ER. Pain can range from 1-8/10 depending on her activitty. She does have a history of left TKA June 2017, and right TKA April 20 2017. Past medical history also includes L3-4, L4-5, L5-S1 fusion in Jun 2009, and January 2012 Treatment Goals Patient/Caregiver Goals to decrease pain and improve functional mobility Prior Functional Status Baseline Function- ADL's Independent Baseline Function- Mobility Independent Current Functional Impairments (Reported) Functional Limitations- ADL's improvements with all activities except still has difficulities with crossing her left leg over her right and donning shoes PT-OP-C Subjective Start: 06/28/18 14:25 Freq: Status: Active Protocol: Document 09/19/18 08:14 [facility] (Rec: 09/19/18 08:52 SAK [id number]) OP-PT Subjective Patient Comments Patient Comments I'm getting there, but still very painful to cross legs. Hasn't used heat at home on hip, but states she does have a heating pad. PT-OP-F Manual Assessment Start: 06/28/18 14:25 Freq: Status: Active Protocol: Document 08/16/18 13:19 [facility] (Rec: 08/16/18 13:35 [facility] [email or web address]) Manual Assessments Soft Tissue Assessment Soft Tissue Mobility Assessment there is no longer pain with iliopsoas stretching and Jacinda is able to stretch her iliopsoas in standing. The adductors still tend to guard Joint Mobility Assessment Joint Mobility Assessment painful hip ER on the left both active and passive, pain is reduced with hip distraction and lateral glide PT-OP-K Range of Motion Start: 06/28/18 14:25 Freq: Status: Active Protocol: Document 06/28/18 14:26 [facility] (Rec: 06/28/18 15:10 [facility] [email or web address]) Hip Goniometric Range of Motion Hip Measured in Degrees Left Hip ROM WFL No Testing Position Supine Flexion w/Knee Flexed 110 Abduction 30 Internal Rotation 10 External Rotation 10 Hip ROM Limitations Hip ROM Limitations Soft Tissue Tightness Muscle Tone Pain Comments pain is reproduced with hip ER in a flexed position, pain also reproduced with hip extension in ingrid test position although hip ext is WFL PT-OP-M Strength Start: 06/28/18 14:25 Freq: Status: Active Protocol: Document 06/28/18 14:26 [facility] (Rec: 06/28/18 15:10 [facility] [email or web address]) Hip Strength Hip Manual Muscle Testing Right Reason Not Measured WFL Left Flexion (L2) 4 Good Extension (S1) 4 Good Abduction 4 Good External Rotation 4 Good Internal Rotation 4 Good Comments pain with resisted ER, extension PT-OP-Q Treatments Start: 06/28/18 14:25 Freq: Status: Active Protocol: Document 09/19/18 08:14 [facility] (Rec: 09/19/18 08:52 SAK [id number]) Cardio Equipment Recumbent Elliptical (Biodex) Duration (Minutes) 5 Resistance level 4 Gym Equipment Shuttle Recovery Unilateral Squats Details single leg squats Resistance 25# Shuttle Recovery Platform Stable Reps/Time 3x10 Bilateral Squats Details bilateral squats Resistance 50 lbs Shuttle Recovery Platform Stable Reps/Time 3 x 10 Therapeutic Exercises Supine Exercises 6 Supine Exercise Name ingrid test positions iliopsoas stretch Reps/Minutes with manual assistance 5 Supine Exercise Name adductor stretch Reps/Minutes with strap 4 Supine Exercise Name single knee to chest stretch 3 Supine Exercise Name piriformis stretch with ankle resting over opposite knee Sidelying Exercises 1 Sidelying Exercise Name clam shells Reps/Minutes 3 x 10 Standing Exercises 4 Standing Exercise Name standing single leg balance Reps/Minutes 2 x 30 seconds 3 Standing Exercise Name standing hip abduction Reps/Minutes 2 x 10 reps each side 2 Standing Exercise Name standing quad stretch Comments left leg behind with foot on a chair 1 Standing Exercise Name standing calf stretch Comments hold 30 sec each raise left arm Manual Therapy Treatment Joint Mobilizations 1 Joint left hip distraction with manual resistance Body Position Hooklying Comments good tolerance for hip MWM and no pain with hip ER while the left hip was distracted Manual Techniques 1 Type manual stretching in sidelying for the quads and iliopsoas Comments sidelying position PT-OP-R Modalities Start: 06/28/18 14:25 Freq: Status: Active Protocol: Document 09/19/18 08:14 [facility] (Rec: 09/19/18 09:03 [facility] [id number]) Hot Pack/Cold Pack Treatment Hot Pack Location left adductors Comments 10 min following treatment PT-OP-T Assessment and Plan Start: 06/28/18 14:25 Freq: Status: Active Protocol: Document 09/19/18 08:14 [facility] (Rec: 09/19/18 09:03 [facility] [id number]) Physical Therapy Assessment Goals Five Impairment decreased gluteus medius strength Short Term Goal (STG) Improve left gluteus medius strength from 3/5 to 4/5 or better Four Impairment painful hip ER, Jacinda is unable to rest her left heel over her right knee Public Safety Director Goal (LTG) Improve full painfree hip ER with manual therapy techniques and gentle stretches Three Short Term Goal (STG) reduce spasm of these muscle groups to help improve painfree hip ROM Two Impairment pain with transitional movements Penitentiary Goal (LTG) Jacinda is able to transfer in and out of her car or bathtub without pain in the left groin GOAL MET LTG Duration 6-8 weeks One Impairment pain in the groin rated 1-8 depending on activity level Short Term Goal (STG) Jacinda has decreased c/o groin pain to palpation and is able to roll in bed without pain STG Duration 4 weeks GOAL MET Progress Towards Goals Progress Towards Goals Progressing Toward Goals Assessment Summary Assessment good tolerance for ther ex with c/o pain only at end- range flex and ER. Mod verbal and manual cues for correct exercise form. Physical Therapy Plan Frequency and Duration Frequency of Treatment 2x/Week Duration of Treatment 8 weeks Plan of Care Start Date 08/16/18 Plan of Care End Date 10/18/18 Therapeutic Interventions Therapeutic Interventions Home Exercise Program Joint Mobilizations Manual Therapy Neuromuscular Re-education Patient/Caregiver Education Self-Care/Home Management Soft Tissue Mobilization Therapeutic Exercises Modalities Ultrasound Next Visit Focus/Plan Next Note Type Treatment Note Next Visit Plan progress strengthening, add sit-stand and continue working hip ER
--- NOTE | 2018-09-26 12:50 | PT.OTN ---
Current Diagnoses Strain of adductor muscle, fascia and tendon of unspecified thigh, initial encounter (09/26/18) Physical Therapy Treatment Note PT-OP-A Visit Information Start: 06/28/18 14:25 Freq: Status: Active Protocol: Document 09/26/18 12:47 [facility] (Rec: 09/26/18 12:50 [facility] [email or web address]) Out-Patient Physical Therapy Visit Information Visit Information Visit Type Treatment Note Visit Start Time 10:45 Visit Stop Time 11:30 Total Visit Minutes 45 Visit Number 15 Number of SHIP'S MASTER Visits 0 PT-OP-B Current Condition Start: 06/28/18 14:25 Freq: Status: Active Protocol: Document 08/16/18 13:19 [facility] (Rec: 08/16/18 13:35 [facility] [email or web address]) Current Condition History of Current Condition Onset Date February 2018 Current Complaints left sided groin pain that began last February History of Current Condition Jacinda is a 72 year old female who aggravated her left groin when getting out of a [place]ir[place] chair at the [employer] festival. She reports she had sat down in the chair to try it out but then getting back up was difficult and she felt a pain in her left groin with the attempt to get out of the chair. Since that time she has pain with getting in and out of the car or bathtub. She also has increased pain with donning shoes or socks as it is difficult for her to place her left hip into ER. Pain can range from 1-8/10 depending on her activitty. She does have a history of left TKA June 2017, and right TKA April 20 2017. Past medical history also includes L3-4, L4-5, L5-S1 fusion in Jun 2009, and January 2012 Treatment Goals Patient/Caregiver Goals to decrease pain and improve functional mobility Prior Functional Status Baseline Function- ADL's Independent Baseline Function- Mobility Independent Current Functional Impairments (Reported) Functional Limitations- ADL's improvements with all activities except still has difficulities with crossing her left leg over her right and donning shoes PT-OP-C Subjective Start: 06/28/18 14:25 Freq: Status: Active Protocol: Document 09/26/18 12:47 [facility] (Rec: 09/26/18 12:50 [facility] [email or web address]) OP-PT Subjective Patient Comments Patient Comments Jacinda reports she is doing better overall. She is thinking today will be her last visit and she will work on her own for a few weeks. If she is doing well she will cancel her last few appointments Patient Reported Progress Improving PT-OP-F Manual Assessment Start: 06/28/18 14:25 Freq: Status: Active Protocol: Document 08/16/18 13:19 [facility] (Rec: 08/16/18 13:35 [facility] [email or web address]) Manual Assessments Soft Tissue Assessment Soft Tissue Mobility Assessment there is no longer pain with iliopsoas stretching and Jacinda is able to stretch her iliopsoas in standing. The adductors still tend to guard Joint Mobility Assessment Joint Mobility Assessment painful hip ER on the left both active and passive, pain is reduced with hip distraction and lateral glide PT-OP-K Range of Motion Start: 06/28/18 14:25 Freq: Status: Active Protocol: Document 06/28/18 14:26 [facility] (Rec: 06/28/18 15:10 [facility] [email or web address]) Hip Goniometric Range of Motion Hip Measured in Degrees Left Hip ROM WFL No Testing Position Supine Flexion w/Knee Flexed 110 Abduction 30 Internal Rotation 10 External Rotation 10 Hip ROM Limitations Hip ROM Limitations Soft Tissue Tightness Muscle Tone Pain Comments pain is reproduced with hip ER in a flexed position, pain also reproduced with hip extension in ingrid test position although hip ext is WFL PT-OP-M Strength Start: 06/28/18 14:25 Freq: Status: Active Protocol: Document 06/28/18 14:26 [facility] (Rec: 06/28/18 15:10 [facility] [email or web address]) Hip Strength Hip Manual Muscle Testing Right Reason Not Measured WFL Left Flexion (L2) 4 Good Extension (S1) 4 Good Abduction 4 Good External Rotation 4 Good Internal Rotation 4 Good Comments pain with resisted ER, extension PT-OP-Q Treatments Start: 06/28/18 14:25 Freq: Status: Active Protocol: Document 09/19/18 08:14 [facility] (Rec: 09/19/18 08:52 [facility]AK [id number]) Cardio Equipment Recumbent Elliptical (Biodex) Duration (Minutes) 5 Resistance level 4 Gym Equipment Shuttle Recovery Unilateral Squats Details single leg squats Resistance 25# Shuttle Recovery Platform Stable Reps/Time 3x10 Bilateral Squats Details bilateral squats Resistance 50 lbs Shuttle Recovery Platform Stable Reps/Time 3 x 10 Therapeutic Exercises Supine Exercises 6 Supine Exercise Name ingrid test positions iliopsoas stretch Reps/Minutes with manual assistance 5 Supine Exercise Name adductor stretch Reps/Minutes with strap 4 Supine Exercise Name single knee to chest stretch 3 Supine Exercise Name piriformis stretch with ankle resting over opposite knee Sidelying Exercises 1 Sidelying Exercise Name clam shells Reps/Minutes 3 x 10 Standing Exercises 4 Standing Exercise Name standing single leg balance Reps/Minutes 2 x 30 seconds 3 Standing Exercise Name standing hip abduction Reps/Minutes 2 x 10 reps each side 2 Standing Exercise Name standing quad stretch Comments left leg behind with foot on a chair 1 Standing Exercise Name standing calf stretch Comments hold 30 sec each raise left arm Manual Therapy Treatment Joint Mobilizations 1 Joint left hip distraction with manual resistance Body Position Hooklying Comments good tolerance for hip MWM and no pain with hip ER while the left hip was distracted Manual Techniques 1 Type manual stretching in sidelying for the quads and iliopsoas Comments sidelying position PT-OP-R Modalities Start: 06/28/18 14:25 Freq: Status: Active Protocol: Document 09/19/18 08:14 [facility] (Rec: 09/19/18 09:03 [facility] [id number]) Hot Pack/Cold Pack Treatment Hot Pack Location left adductors Comments 10 min following treatment PT-OP-T Assessment and Plan Start: 06/28/18 14:25 Freq: Status: Active Protocol: Document 09/26/18 12:47 [facility] (Rec: 09/26/18 12:50 [facility] [email or web address]) Physical Therapy Assessment Assessment Summary Assessment able to rest left foot over right knee and hold, good form with sit to stand and no pain with hip flexion > 90 deg. The plan is to hold PT for a few weeks and then recheck in if needed the end september Physical Therapy Plan Hold Physical Therapy Reason For Hold hold for 2 weeks, if Jacinda is doing well on her own then PT will be discontinued
--- NOTE | 2019-06-04 08:29 | PT.OPDS ---
Current Diagnoses Strain of adductor muscle, fascia and tendon of unspecified thigh, initial encounter (09/26/18) Visit Care Team Role Provider Type Isabell Fung DO Attending Provider Physician Primary Care Provider Specialty: [facility] Address: [address] [place] [address], [facility] [address], [place], [facility] Email: [email or web address] Visit Number Visit Number 15 Discharge Summary PT-OP-B Current Condition Start: 06/28/18 14:25 Freq: Status: Active Protocol: Document 08/16/18 13:19 [facility] (Rec: 08/16/18 13:35 AMH [id number]) Current Condition History of Current Condition Onset Date February 2018 Current Complaints left sided groin pain that began last February History of Current Condition Jacinda is a 72 year old female who aggravated her left groin when getting out of a [place]ir[place] chair at the [employer] fest[employer]mn. She reports she had sat down in the chair to try it out but then getting back up was difficult and she felt a pain in her left groin with the attempt to get out of the chair. Since that time she has pain with getting in and out of the car or bathtub. She also has increased pain with donning shoes or socks as it is difficult for her to place her left hip into ER. Pain can range from 1-8/10 depending on her activitty. She does have a history of left TKA June 2017, and right TKA April 20 2017. Past medical history also includes L3-4, L4-5, L5-S1 fusion in Jun 2009, and January 2012 Treatment Goals Patient/Caregiver Goals to decrease pain and improve functional mobility Prior Functional Status Baseline Function- ADL's Independent Baseline Function- Mobility Independent Current Functional Impairments (Reported) Functional Limitations- ADL's improvements with all activities except still has difficulities with crossing her left leg over her right and donning shoes PT-OP-C Subjective Start: 06/28/18 14:25 Freq: Status: Active Protocol: Document 09/26/18 12:47 AMH (Rec: 09/26/18 12:50 [facility] [id number]) OP-PT Subjective Patient Comments Patient Comments Jacinda reports she is doing better overall. She is thinking today will be her last visit and she will work on her own for a few weeks. If she is doing well she will cancel her last few appointments Patient Reported Progress Improving PT-OP-F Manual Assessment Start: 06/28/18 14:25 Freq: Status: Active Protocol: Document 08/16/18 13:19 [facility] (Rec: 08/16/18 13:35 [facility] [id number]) Manual Assessments Soft Tissue Assessment Soft Tissue Mobility Assessment there is no longer pain with iliopsoas stretching and Jacinda is able to stretch her iliopsoas in standing. The adductors still tend to guard Joint Mobility Assessment Joint Mobility Assessment painful hip ER on the left both active and passive, pain is reduced with hip distraction and lateral glide PT-OP-K Range of Motion Start: 06/28/18 14:25 Freq: Status: Active Protocol: Document 06/28/18 14:26 [facility] (Rec: 06/28/18 15:10 [facility] [id number]) Hip Goniometric Range of Motion Hip Left Hip ROM WFL No Testing Position Supine Flexion w/Knee Flexed 110 Abduction 30 Internal Rotation 10 External Rotation 10 Hip ROM Limitations Hip ROM Limitations Soft Tissue Tightness,Muscle Tone,Pain Comments pain is reproduced with hip ER in a flexed position, pain also reproduced with hip extension in ingrid test position although hip ext is WFL PT-OP-M Strength Start: 06/28/18 14:25 Freq: Status: Active Protocol: Document 06/28/18 14:26 [facility] (Rec: 06/28/18 15:10 [facility] [id number]) Hip Strength Hip Manual Muscle Testing Right Reason Not Measured WFL Left Flexion (L2) 4 Good Extension (S1) 4 Good Abduction 4 Good External Rotation 4 Good Internal Rotation 4 Good Comments pain with resisted ER, extension PT-OP-T Assessment and Plan Start: 06/28/18 14:25 Freq: Status: Active Protocol: Document 06/04/19 08:28 [facility] (Rec: 06/04/19 08:29 [facility] [id number]) Physical Therapy Assessment Assessment Summary Assessment able to rest left foot over right knee and hold, good form with sit to stand and no pain with hip flexion > 90 deg. The plan is to hold PT for a few weeks and then recheck in if needed. Jacinda did not feel she needed further care. She will be discharged at this time. Physical Therapy Plan Discharge Physical Therapy Discharge Reasons No Longer Attending PT Discharge Comments The patient completed her course in PT and was given a few weeks to work independently. She did not require any further follow up and will be discharged at this time.
== END 2018-09-26 11:45 ==
LOC: PHYS 10:45
PROVIDERS: PCP Family Medicine; Visit Provider Family Medicine
DX: S76.219A Strain of adductor muscle, fascia and tendon of unspecified thigh, initial encounter (principal)
CPT/HCPCS: 97035; 97110; 97140; 97161

== ENCOUNTER → 2018-11-01 08:57 | Outpatient (CLI) | payer MEDICARE, OTHER, SELFPAY | PROVIDERS: PCP Family Medicine; Visit Provider Physician Assistant | DX: N39.0 Urinary tract infection, site not specified (principal) | CPT/HCPCS: 87086 ==

== ENCOUNTER → 2018-12-27 10:47 | Outpatient (CLI) | payer MEDICARE, OTHER, SELFPAY ==
[2018-12-27 11:44] LABS: Add Manual Diff / Slide Review NO; Basophils Absolute Auto 0 /uL (0-100); Basophils Percent Auto 0.6 % (0-2); Eosinophils Absolute Auto 200 /uL (0-450); Eosinophils Percent Auto 3.3 % (2-4); Hematocrit 42.2 % (36-46); Hemoglobin 14.9 g/dL (12.0-16.0); Lymphocytes Absolute Auto 1800 /uL (1100-4500); Lymphocytes Percent Auto 24.5 % (25-40); Mean Corpuscular HGB Conc 35.3 % (30-36); Mean Corpuscular Hemoglobin 31.2 PG (26-34); Mean Corpuscular Volume 88.3 fL (80-100); Monocytes Absolute Auto 500 /uL (0-900); Monocytes Percent Auto 7.4 % (3-14); Neutrophils Absolute Auto 4700 /uL (1500-7000); Neutrophils Percent Auto 64.2 % (50-75); Platelet Count 222 X10^3/uL (150-400); Red Blood Cell Count 4.78 X10^6/uL (4.0-5.2); Red Cell Distribution Width 13.4 % (11.6-14.8); White Blood Cell Count 7.3 X10^3/uL (4.5-11.0)
[2018-12-27 12:04] LABS: Alanine Aminotransferase 47 IU/L (9-52); Albumin 4.4 g/dL (3.5-5.0); Albumin Globulin Ratio 1.5 (1.0-2.8); Alkaline Phosphatase 77 U/L (38-126); Aspartate Aminotransferase 32 IU/L (14-36); BUN Creatinine Ratio 22.5 (6-22); Bilirubin Total 0.7 mg/dL (0.2-1.3); Blood Urea Nitrogen 18 mg/dL (7-17); Calcium 10.2 mg/dL (8.4-10.2); Carbon Dioxide 31 mmol/L (22-32); Chloride 103 mmol/L (98-107); Cholesterol 196 mg/dL (140-199); Estimated Glomerular Filt Rate > 60.0 mL/min (>60); Globulin 2.9 g/dL (1.7-4.1); Glucose 110 mg/dL (80-110); HDL Cholesterol 39 mg/dL (40-60); HEMOLYSIS < 15 (0-50); LDL Cholesterol Calculated 97 mg/dL (<100); Potassium 4.5 mmol/L (3.4-5.1); Sodium 140 mmol/L (137-145); Total Protein 7.3 g/dL (6.3-8.2); Triglycerides 302 mg/dL (35-150)
[2018-12-29 16:07] LABS: Rubeola Measles IgG > 300.00 AU/mL (< 25.00)
[2018-12-29 16:10] LABS: Varicella IgG Antibody < 135.00 Index (< 135.00)
== END ==
PROVIDERS: PCP Family Medicine; Visit Provider Family Medicine
DX: Z01.84 Encounter for antibody response examination (principal); E78.5 Hyperlipidemia, unspecified; I10 Essential (primary) hypertension; K52.9 Noninfective gastroenteritis and colitis, unspecified; N39.0 Urinary tract infection, site not specified
CPT/HCPCS: 36415; 80053; 80061; 85025; 86765; 86787; 87086; 87471

== ENCOUNTER → 2019-01-31 14:51 | Outpatient (CLI) | payer MEDICARE, OTHER, SELFPAY ==
[2019-01-31 15:06] LABS: RBC Urine None Seen (0-5/HPF)
[2019-01-31 15:42] LABS: Appearance Urine UA CLOUDY; Bilirubin Urine UA NEGATIVE (NEGATIVE); Color Urine UA YELLOW; Glucose Urine UA NEGATIVE (Negative); Ketones Urine UA NEGATIVE (NEGATIVE); Leukocyte Esterase Urine UA 1+ (NEGATIVE); Nitrite Urine UA NEGATIVE (Negative); Occult Blood Urine UA 1+ (Negative); Protein Urine UA TRACE (Negative); Specific Gravity Urine UA 1.025 (1.000-1.035); Urobilinogen Urine UA 0.2 E.U./dL (0.2)
[2019-01-31 15:53] LABS: Bacteria Urine Few (2-10); Culture Indicated Urine Specimen Cultured; Squamous Epithelial Cell Urine 1-5 /HPF (0-5/HPF); WBC Urine 30-100/HPF (0-5/HPF)
[2019-02-02 18:19] LABS: 18 kD IgG Band Nonreactive; 23 kD IgG Band Nonreactive; 28 kD IgG Band Nonreactive; 30 kD IgG Band Nonreactive; 39 kD IgG Band Nonreactive; 41 kD IgG Bands Reactive; 45 kD IgG Band Nonreactive; 58 kD IgG Band Nonreactive; 66 kD IgG Band Reactive; 93 kD IgG Bands Nonreactive
== END ==
PROVIDERS: PCP Family Medicine; Visit Provider Hospitalist
DX: N39.0 Urinary tract infection, site not specified (principal); R21 Rash and other nonspecific skin eruption
CPT/HCPCS: 36415; 81001; 86618; 87077; 87086; 87186

== ENCOUNTER → 2019-03-19 08:56 | Outpatient (CLI) | payer MEDICARE, OTHER, SELFPAY ==
--- NOTE | 2019-03-19 08:58 | DI.RAD.S_ITS ---
PROCEDURE: XR CHEST 2V INDICATIONS: cough TECHNIQUE: 2 views of the chest were acquired. COMPARISON: None. FINDINGS: Surgical changes and devices: None. Lungs and pleura: Lungs are clear. No pleural effusions or pneumothorax. Mediastinum: Mediastinal contours are normal. Heart size is normal. Bones and chest wall: No suspicious bony abnormalities. Soft tissues appear unremarkable. IMPRESSION: No acute cardiopulmonary disease process. Dictated by: Oliva Gooden MD, PhD on 03/19/2019 at 9:23 Approved by: Oliva Gooden MD, PhD on 03/19/2019 at 9:23
== END ==
PROVIDERS: PCP Family Medicine; Visit Provider Physician Assistant
DX: R05 Cough (principal)
CPT/HCPCS: 71046

== ENCOUNTER → 2019-04-03 09:22 | Outpatient (CLI) | payer MEDICARE, OTHER, SELFPAY ==
--- NOTE | 2019-04-03 | DI.MG.S_ITS ---
BILATERAL DIGITAL SCREENING MAMMOGRAM 3D/2D WITH CAD: 04/03/2019 CLINICAL: Routine screening. Comparison is made to exams dated: 03/12/2018 mammogram, 03/06/2017 mammogram, 02/18/2016 mammogram, 11/04/2014 mammogram, and 08/22/2013 mammogram - [facility]. The tissue of both breasts is predominantly fatty. Current study was also evaluated with a Computer Aided Detection (CAD) system. No significant masses, calcifications, or other findings are seen in either breast. There has been no significant interval change. IMPRESSION: NEGATIVE There is no mammographic evidence of malignancy. A 1 year screening mammogram is recommended. This exam was interpreted at Station ID: [id number]. NOTE: For mammograms, a report in lay terms will be sent to the patient. Approximately 15% of breast malignancies will not be visualized mammographically. In the management of a palpable breast mass, a negative mammogram must not discourage biopsy of a clinically suspicious lesion. Electronically Signed By: Luis Fernando h[place]/judah:04/03/2019 19:31:23 letter sent: Normal Exam ACR BI-RADS Category 1: Negative [id number]
== END ==
PROVIDERS: PCP Family Medicine; Visit Provider Family Medicine
DX: Z12.31 Encounter for screening mammogram for malignant neoplasm of breast (principal)
CPT/HCPCS: 77063; 77067

== ENCOUNTER → 2019-06-24 10:28 | Outpatient (CLI) | payer MEDICARE, OTHER, SELFPAY ==
[2019-06-24 11:22] LABS: BUN Creatinine Ratio 32.5 (6-22); Blood Urea Nitrogen 26 mg/dL (7-17); Calcium 9.8 mg/dL (8.4-10.2); Carbon Dioxide 30 mmol/L (22-32); Chloride 103 mmol/L (98-107); Estimated Glomerular Filt Rate > 60.0 mL/min (>60); Glucose 116 mg/dL (80-110); HEMOLYSIS < 15 (0-50); Potassium 4.5 mmol/L (3.4-5.1); Sodium 141 mmol/L (137-145)
== END ==
PROVIDERS: PCP Family Medicine; Visit Provider Family Medicine
DX: E83.52 Hypercalcemia (principal)
CPT/HCPCS: 36415; 80048

== ENCOUNTER → 2020-02-17 14:34 | Outpatient (CLI) | payer MEDICARE, OTHER, SELFPAY ==
[2020-02-17 15:17] LABS: Appearance Urine UA CLEAR; Bilirubin Urine UA NEGATIVE (NEGATIVE); Color Urine UA ORANGE; Occult Blood Urine UA NEGATIVE (Negative); Specific Gravity Urine UA 1.025 (1.000-1.035)
[2020-02-17 15:25] LABS: Bacteria Urine Occasional (0-1); Culture Indicated Urine Specimen Cultured; Mucus Urine 1+ (Negative); RBC Urine 0-1/HPF (0-5/HPF); Squamous Epithelial Cell Urine 1-5 /HPF (0-5/HPF); Transitional Epi Cells Urine 0-1/HPF (0-5/HPF); WBC Urine 5-10/HPF (0-5/HPF)
== END ==
PROVIDERS: PCP Family Medicine; Referring Provider Family Medicine; Visit Provider Family Medicine
DX: R30.0 Dysuria (principal)
CPT/HCPCS: 81001; 87086

== ENCOUNTER → 2020-04-04 15:06 | Outpatient (CLI) | payer MEDICARE, OTHER, SELFPAY ==
--- NOTE | 2020-04-04 15:17 | DI.MG.S_ITS ---
Patient Name: DK CARVAJAL date: 1945 Sex: F Attending Physician: Kenton Indications: Date: 04/04/2020 15:12 At the request of: KULWINDER GONZALEZ Procedure: MM screening mammo BI BILATERAL DIGITAL SCREENING MAMMOGRAM 3D/2D WITH CAD: 04/04/2020 CLINICAL: Routine screening. Comparison is made to exams dated: 04/03/2019 mammogram, 03/12/2018 mammogram, and 03/06/2017 mammogram - [facility]. There are scattered fibroglandular elements in both breasts. Current study was also evaluated with a Computer Aided Detection (CAD) system. No significant masses, calcifications, or other findings are seen in either breast. There has been no significant interval change. IMPRESSION: NEGATIVE There is no mammographic evidence of malignancy. A 1 year screening mammogram is recommended. This exam was interpreted at Station ID: [id number]. NOTE: For mammograms, a report in lay terms will be sent to the patient. Approximately 15% of breast malignancies will not be visualized mammographically. In the management of a palpable breast mass, a negative mammogram must not discourage biopsy of a clinically suspicious lesion. Electronically Signed By: Macarena conti/judah:04/06/2020 08:28:13 letter sent: Normal Exam ACR BI-RADS Category 1: Negative [id number]
== END ==
PROVIDERS: PCP Family Medicine; Referring Provider Family Medicine; Visit Provider Family Medicine
DX: Z12.31 Encounter for screening mammogram for malignant neoplasm of breast (principal)
CPT/HCPCS: 77063; 77067

== ENCOUNTER → 2020-05-13 14:18 | Outpatient (CLI) | payer MEDICARE, OTHER, SELFPAY ==
[2020-05-13 18:09] LABS: Vitamin D 25 Hydroxy (D3) 56.1 ng/mL (30.0-100.0)
[2020-05-14 16:26] LABS: Calcium 9.8 mg/dL (8.7-10.3); Parathyroid Hormone, Intact 25 pg/mL (15-65)
== END ==
PROVIDERS: PCP Family Medicine; Referring Provider Family Medicine; Visit Provider Family Medicine
DX: E21.3 Hyperparathyroidism, unspecified (principal); E83.52 Hypercalcemia; Z77.011 Contact with and (suspected) exposure to lead
CPT/HCPCS: 82306; 82310; 83655; 83970

== ENCOUNTER → 2020-08-18 09:44 | Outpatient (CLI) | payer MEDICARE, OTHER, SELFPAY ==
[2020-08-18] MEDS: COVID-19 VACC #1, MRNA(MOD) 100 MCG/0.5 ML VIAL IM (09:49)
== END ==
PROVIDERS: PCP Family Medicine; Visit Provider Internal Medicine
DX: Z23 Encounter for immunization (principal)
CPT/HCPCS: 0011A; 91301

== ENCOUNTER → 2020-09-15 09:38 | Outpatient (CLI) | payer MEDICARE, OTHER, SELFPAY ==
[2020-09-15] MEDS: COVID-19 VACC #2, MRNA(MOD) 100 MCG/0.5 ML VIAL IM (09:45)
== END ==
PROVIDERS: PCP Family Medicine; Visit Provider Internal Medicine
DX: Z23 Encounter for immunization (principal)
CPT/HCPCS: 0012A; 91301

== ENCOUNTER → 2021-04-08 15:54 | Outpatient (CLI) | payer MEDICARE, OTHER, SELFPAY ==
--- NOTE | 2021-04-08 | DI.MG.S_ITS ---
BILATERAL DIGITAL SCREENING MAMMOGRAM 3D/2D WITH CAD: 04/08/2021 CLINICAL: Routine screening. Comparison is made to exams dated: 04/04/2020 mammogram, 04/03/2019 mammogram, and 03/12/2018 mammogram - [facility]. There are scattered fibroglandular elements in both breasts. Current study was also evaluated with a Computer Aided Detection (CAD) system. No significant masses, calcifications, or other findings are seen in either breast. There has been no significant interval change. IMPRESSION: NEGATIVE There is no mammographic evidence of malignancy. A 1 year screening mammogram is recommended. This exam was interpreted at Station ID: [id number]. NOTE: For mammograms, a report in lay terms will be sent to the patient. Approximately 15% of breast malignancies will not be visualized mammographically. In the management of a palpable breast mass, a negative mammogram must not discourage biopsy of a clinically suspicious lesion. Electronically Signed By: Shantanu branch/judah:04/08/2021 17:07:03 letter sent: Normal Exam ACR BI-RADS Category 1: Negative [id number]
== END ==
PROVIDERS: Family Provider Family Medicine; PCP Family Medicine; Referring Provider Family Medicine; Visit Provider Family Medicine
DX: Z12.31 Encounter for screening mammogram for malignant neoplasm of breast (principal)
CPT/HCPCS: 77063; 77067

== ENCOUNTER → 2021-05-24 07:34 | Outpatient (CLI) | payer MEDICARE, OTHER, SELFPAY ==
[2021-05-24 08:11] LABS: Alanine Aminotransferase 25 IU/L (<35); Albumin 4.4 g/dL (3.5-5.0); Albumin Globulin Ratio 1.6 (1.0-2.8); Alkaline Phosphatase 71 U/L (38-126); Aspartate Aminotransferase 24 IU/L (14-36); BUN Creatinine Ratio 22.5 (6-22); Bilirubin Total 0.8 mg/dL (0.2-1.3); Blood Urea Nitrogen 16 mg/dL (7-17); Calcium 9.3 mg/dL (8.4-10.2); Carbon Dioxide 27 mmol/L (22-32); Chloride 105 mmol/L (98-107); Cholesterol 209 mg/dL (140-199); Estimated Glomerular Filt Rate > 60.0 mL/min (>60); Globulin 2.7 g/dL (1.7-4.1); Glucose 132 mg/dL (80-110); HDL Cholesterol 40 mg/dL (40-60); HEMOLYSIS < 15 (0-50); LDL Cholesterol Calculated 135 mg/dL (<100); Potassium 3.9 mmol/L (3.4-5.1); Sodium 138 mmol/L (137-145); Total Protein 7.1 g/dL (6.3-8.2); Triglycerides 170 mg/dL (35-150)
[2021-05-25 14:31] LABS: Calcium 9.5 mg/dL (8.7-10.3); Parathyroid Hormone, Intact 47 pg/mL (15-65)
== END ==
PROVIDERS: Family Provider Family Medicine; PCP Family Medicine; Referring Provider Family Medicine; Visit Provider Family Medicine
DX: E21.3 Hyperparathyroidism, unspecified (principal); I10 Essential (primary) hypertension; E83.52 Hypercalcemia
CPT/HCPCS: 36415; 80053; 80061; 82310; 83970

== ENCOUNTER 2021-07-12 10:15 | Outpatient (RCR) | payer MEDICARE, OTHER, SELFPAY ==
--- NOTE | 2020-11-25 11:59 | PT.OIE ---
Current Diagnoses Strain of muscle, fascia and tendon of right hip, initial encounter (11/25/20) Past Medical History (Last Updated 09/02/19 @ 22:13 by Isabell Fung DO) Asthma Cataract Chronic back pain CTS (carpal tunnel syndrome) Essential hypertension (04/25/17) Greater trochanteric bursitis of left hip Hypercalcemia Hyperparathyroidism Hypertension Measles Obesity Osteoarthritis Varicose veins of left lower extremity Past Surgical History (Last Reviewed 01/31/19 @ 15:32 by Yane Aguayo MD) Anesthesia History of knee replacement (2016) History of spinal fusion (06/2009) History of spinal fusion (2011) Status post parathyroidectomy (2015) Status post tonsillectomy and adenoidectomy (1947) Visit Care Team Role Provider Type Isabell Fung DO Attending Provider Physician Family Provider Primary Care Provider Referring Provider Specialty: Family Practice Address: [address] [place] [address], [address], [facility] Email: [email or web address] Physical Therapy Initial Evaluation PT-OP-A Visit Information Start: 11/24/20 16:25 Freq: Status: Active Protocol: Document 11/25/20 11:16 SAK (Rec: 11/25/20 11:49 [facility] [id number]) Out-Patient Physical Therapy Visit Information Visit Information Visit Type Initial Evaluation Visit Start Time 11:15 Visit Stop Time 12:15 Total Visit Minutes 60 Visit Number 1 Evaluation Information Evaluation Date 11/25/20 Precautions Precautions spinal fusion x 2 PT-OP-B Current Condition Start: 11/24/20 16:25 Freq: Status: Active Protocol: Document 11/25/20 11:16 SAK (Rec: 11/25/20 11:49 SAK [id number]) Current Condition History of Current Condition Onset Date May 2020 Current Complaints groin pain History of Current Condition Pain started 1 month after fall down 7 stairs, right leg got caught behind, had scrape and bone bruise lower right LE . Landed with left leg in front of her, right leg bent back behind and internally rotated. Started having ischial tuberosity pain 1 month after fall, then states pain began to zig zag around leg, then groin pain. Jacinto now primarily groin. States unable to alternate LE's going up stairs, but can going down . States her groin seizes up when she goes from prolonged sitting to standing, then works itself out a little. Denies N/T, tingling. Prior Treatments and Tests No imaging. Treatment Goals Patient/Caregiver Goals walk level surfaces and stairs with alternating pattern without pain, be able to go from sitting to stnading without pain. PT-OP-C Subjective Start: 11/24/20 16:25 Freq: Status: Active Protocol: Document 11/25/20 11:16 [facility] (Rec: 11/25/20 17:00 [facility] [id number]) Patient Questionnaires Lower Extremity Functional Scale LEFS Score 14 OP-PT Pain Assessment Pain Assessment Grid Paper Pain Assessment Grid Completed Yes Location right groin Intensity 6 Scale Used Numeric (0 - 10) Description Aching,Pinching,Sharp,Stabbing ,Tender Frequency Frequent Pain Aggravating Factors Changing Position,Standing, Walking,Stair Climbing Pain Alleviating Factors Inactivity PT-OP-G Mobility & Gait Start: 11/24/20 16:25 Freq: Status: Active Protocol: Document 11/25/20 11:16 [facility] (Rec: 11/25/20 17:00 [facility] [id number]) OP Mobility Evaluation Bed Mobility Supine to and from Sit painful Transfers Sit to Stand painful, needs use of UE's OP Gait Assessment Gait Gait Assistance Required: Independent Assistive Devices Orthotic/Prosthetic Devices or Brace: No Gait Deviations General Gait Pattern Antalgic,Lateral Trunk Lean Factors Limiting Gait Function Factors Limiting Gait Function Pain Stair Climbing Evaluation Evaluation Level of Assist On Stairs Independent Devices Stair Climbing Assistive Devices Left Railing,Right Railing Comments Stair Climbing Comments step-to ascending, alternating descending both with bilateral UE support PT-OP-H Neuro Start: 11/24/20 16:25 Freq: Status: Active Protocol: Document 11/25/20 11:16 SAK (Rec: 11/25/20 17:00 [facility] [id number]) Sensation Evaluation Gross Sensation Gross Sensation WNL Comments Summary Comments denies N/T PT-OP-J Posture/Palpation/Skin Start: 11/24/20 16:25 Freq: Status: Active Protocol: Document 11/25/20 11:16 SAK (Rec: 11/25/20 17:00 [facility] [id number]) Posture Evaluation Position Standing L-Spine Posture Increased Lordosis Ankle/Foot Posture (L) Pronated,(R) Pronated Palpation Assessment Location psoas Palpation Location right Palpation Details nontender iliacus Palpation Location right Palpation Details nontender groin Palpation Location medial right Palpation Findings Tenderness PT-OP-K Range of Motion Start: 11/24/20 16:25 Freq: Status: Active Protocol: Document 11/25/20 11:16 [facility] (Rec: 11/25/20 17:00 [facility] [id number]) Hip Goniometric Range of Motion Hip right Hip ROM WFL No Flexion w/Knee Flexed 125 Straight Leg Raise 75 Extension 0 Abduction 35 Internal Rotation 40 External Rotation 80 Left Hip ROM WFL No Flexion w/Knee Flexed 125 Straight Leg Raise 80 Extension 0 Abduction 35 Internal Rotation 20 External Rotation 65 Hip ROM Limitations Hip ROM Limitations Soft Tissue Tightness,Pain Knee Goniometric Range of Motion Knee kianna Knee ROM WFL Yes PT-OP-L Special Tests Start: 11/24/20 16:25 Freq: Status: Active Protocol: Document 11/25/20 11:16 [facility] (Rec: 11/25/20 17:00 [facility] [id number]) Special Tests Hip Special Tests ingrid test Test Results negative kianna Anterior Labral Test Test Results negative kianna Scour Test Test Results negative kianna GRACE Test Results negative kianna PT-OP-M Strength Start: 11/24/20 16:25 Freq: Status: Active Protocol: Document 11/25/20 11:16 [facility] (Rec: 11/25/20 17:00 [facility] [id number]) Hip Strength Hip Manual Muscle Testing Right Flexion (L2) 4 Good Extension (S1) 3- Fair- Abduction 4 Good Adduction 4 Good External Rotation 4- Good- Internal Rotation 4 Good Comments pain with resisted flexion and extension Left Flexion (L2) 4 Good Extension (S1) 3- Fair- Abduction 4 Good Adduction 4 Good External Rotation 4- Good- Internal Rotation 4 Good Knee Strength Knee Manual Muscle Testing kianna Flexion (S2) 5 Normal Extension (L3) 5 Normal PT-OP-Q Treatments Start: 11/24/20 16:25 Freq: Status: Active Protocol: Document 11/25/20 11:16 [facility] (Rec: 11/25/20 17:00 [facility] [id number]) Self-Care/Home Management Treatment Education Patient Education Home Exercise Program,Pain Management Other Education written handout, instructed in use of moist heat PT-OP-R Modalities Start: 11/24/20 16:25 Freq: Status: Active Protocol: Document 11/25/20 11:16 [facility] (Rec: 11/25/20 17:00 [facility] [id number]) Hot Pack/Cold Pack Treatment Hot Pack Location right groin Patient Position Hooklying Treatment Duration (minutes) 15 Patient Tolerance Good Ultrasound Therapy Treatment right medial groin Treatment Duration (minutes) 8 Patient Position Supine Coupling Medium Ultrasound Gel Applicator Size (cm2) 2 Frequency Setting (mHz) 3 Mode Setting Continuous Duty Cycle 100% Intensity Setting (w/cm2) 1.2 PT-OP-T Assessment and Plan Start: 11/24/20 16:25 Freq: Status: Active Protocol: Document 11/25/20 11:16 [facility] (Rec: 11/25/20 17:00 [facility] [id number]) Physical Therapy Assessment Rehab Potential Rehabilitation Potential Good Evaluation Complexity Number of Personal Factors/Comorbidities 1-2 Number of Body Systems Impaired 3 Clinical Presentation at Evaluation Evolving Impairments Impairments Activity Tolerance,Gait,Pain Goals Three Impairment Decreased activity tolerance: lower extremity functional scale 14% Short Term Goal (STG) Improve LEFS to at least 30% STG Duration 12/25/20 Prison Goal (LTG) Improve LEFS to at least 60% as measure of improved activity tolerance LTG Duration Two Impairment antalgic gait, unable to alternate feet ascending stairs Short Term Goal (STG) Patient able to ambulate without a limp with least restrictive device STG Duration 12/25/20 Prison Goal (LTG) Patient able to ambulate without a limp without a deviceand with alternating pattern on stairs LTG Duration 01/24/21 One Impairment Pain right groin 6/10 Short Term Goal (STG) Decrease pain to no greater than 3/10 STG Duration 12/25/20 Prison Goal (LTG) Decrease pain to no greater than 1/10 LTG Duration 01/24/21 Assessment Summary Assessment Patient presents to PT with function-limiting pain in her groin on right which appears to have been caused by fall in which her right leg was caught behind her in internally rotated position. Signs and symptoms not conclusive but suspect she may have a labral tear in addition to muscular strain in hip flexor region. Feel she would benefit from PT to decrease her pain, improve her gait and activity tolerance. If PT not helpful, feel she would benefit from further imaging of her hip. Patient is highly motivated and agreeable to plan of care. Physical Therapy Plan Frequency and Duration Frequency of Treatment 2x/Week Duration of Treatment 8 weeks Plan of Care Start Date 11/25/20 Plan of Care End Date 01/24/21 Therapeutic Interventions Therapeutic Interventions Gait Training,Home Exercise Program,Joint Mobilizations, Manual Therapy,Neuromuscular Re-education,Patient/Caregiver Education,Self-Care/Home Management,Soft Tissue Mobilization,Therapeutic Activities,Therapeutic Exercises Modalities Cold Pack/Ice Massage,Hot Packs,Infrared Therapy, Iontophoresis,Ultrasound Next Visit Focus/Plan Next Note Type Treatment Note Next Visit Plan ASsess response to today's treatment, review HEP. Gentle progression of ther ex as tolerated
--- NOTE | 2020-11-25 11:59 | PT.OPPOC ---
Physical, Occupational & Speech Therapy At [facility] Current Diagnoses Strain of muscle, fascia and tendon of right hip, initial encounter (11/25/20) Visit Care Team Role Provider Type Isabell Fung DO Attending Provider Physician Family Provider Primary Care Provider Referring Provider Specialty: Family Practice Address: [address] [place] [address], [address], [facility] Email: [email or web address] Plan Of Care PT-OP-T Assessment and Plan Start: 11/24/20 16:25 Freq: Status: Active Protocol: Document 11/25/20 11:16 RALF (Rec: 11/25/20 17:00 RALF [id number]) Physical Therapy Assessment Rehab Potential Rehabilitation Potential Good Evaluation Complexity Number of Personal Factors/Comorbidities 1-2 Number of Body Systems Impaired 3 Clinical Presentation at Evaluation Evolving Impairments Impairments Activity Tolerance,Gait,Pain Goals Three Impairment Decreased activity tolerance: lower extremity functional scale 14% Short Term Goal (STG) Improve LEFS to at least 30% STG Duration 12/25/20 Alteration Workroom Supervisor Goal (LTG) Improve LEFS to at least 60% as measure of improved activity tolerance LTG Duration Two Impairment antalgic gait, unable to alternate feet ascending stairs Short Term Goal (STG) Patient able to ambulate without a limp with least restrictive device STG Duration 12/25/20 Fdc Goal (LTG) Patient able to ambulate without a limp without a deviceand with alternating pattern on stairs LTG Duration 01/24/21 One Impairment Pain right groin 6 Short Term Goal (STG) Decrease pain to no greater than 3/10 STG Duration 12/25/20 Fdc Goal (LTG) Decrease pain to no greater than 1/10 LTG Duration 01/24/21 Assessment Summary Assessment Patient presents to PT with function-limiting pain in her groin on right which appears to have been caused by fall in which her right leg was caught behind her in internally rotated position. Signs and symptoms not conclusive but suspect she may have a labral tear in addition to muscular strain in hip flexor region. Feel she would benefit from PT to decrease her pain, improve her gait and activity tolerance. If PT not helpful, feel she would benefit from further imaging of her hip. Patient is highly motivated and agreeable to plan of care. Physical Therapy Plan Frequency and Duration Frequency of Treatment 2x/Week Duration of Treatment 8 weeks Plan of Care Start Date 11/25/20 Plan of Care End Date 01/24/21 Therapeutic Interventions Therapeutic Interventions Gait Training,Home Exercise Program,Joint Mobilizations, Manual Therapy,Neuromuscular Re-education,Patient/Caregiver Education,Self-Care/Home Management,Soft Tissue Mobilization,Therapeutic Activities,Therapeutic Exercises Modalities Cold Pack/Ice Massage,Hot Packs,Infrared Therapy, Iontophoresis,Ultrasound Next Visit Focus/Plan Next Note Type Treatment Note Next Visit Plan ASsess response to today's treatment, review HEP. Gentle progression of ther ex as tolerated Plan of Care Dates Plan of Care Start Date 11/25/20 Plan of Care End Date 01/24/21 Electronically Signed by: Martina Feng PT 11/26/20 [id number] Please Sign and Return: I have reviewed this Plan of Care and certify that the skilled therapy services above are required to meet the patient?s needs. Physician Signature Date Printed Name and Credentials Clinical Instructor Signature Printed Name and Credentials
--- NOTE | 2020-12-01 15:39 | PT.OTN ---
Current Diagnoses Strain of muscle, fascia and tendon of right hip, initial encounter (12/01/20) Physical Therapy Treatment Note PT-OP-A Visit Information Start: 11/24/20 16:25 Freq: Status: Active Protocol: Document 12/01/20 14:31 [facility] (Rec: 12/01/20 14:43 [facility] [id number]) Out-Patient Physical Therapy Visit Information Visit Information Visit Type Treatment Note Visit Start Time 14:30 Visit Stop Time 15:30 Total Visit Minutes 60 Visit Number 2 PT-OP-B Current Condition Start: 11/24/20 16:25 Freq: Status: Active Protocol: Document 11/25/20 11:16 [facility] (Rec: 11/25/20 11:49 [facility] [id number]) Current Condition History of Current Condition Onset Date May 2020 Current Complaints groin pain History of Current Condition Pain started 1 month after fall down 7 stairs, right leg got caught behind, had scrape and bone bruise lower right LE . Landed with left leg in front of her, right leg bent back behind and internally rotated. Started having ischial tuberosity pain 1 month after fall, then states pain began to zig zag around leg, then groin pain. Jacinto now primarily groin. States unable to alternate LE's going up stairs, but can going down . States her groin seizes up when she goes from prolonged sitting to standing, then works itself out a little. Denies N/T, tingling. Prior Treatments and Tests No imaging. Treatment Goals Patient/Caregiver Goals walk level surfaces and stairs with alternating pattern without pain, be able to go from sitting to stnading without pain. PT-OP-C Subjective Start: 11/24/20 16:25 Freq: Status: Active Protocol: Document 12/01/20 14:31 [facility] (Rec: 12/01/20 14:43 [facility] [id number]) OP-PT Subjective Patient Comments Patient Comments Reports some improvement in pain: 50%. Has had 5 treatments of Pulsed Electro- Magnetic Field (PEMF) therapy this past week. Will be going without treatments for 1 week while practitioner is out of town. Not sure if ultrasound was helpful as only received one treatment. Has ordered small PEMF unit for home use. Compliant to HEP. PT-OP-G Mobility & Gait Start: 11/24/20 16:25 Freq: Status: Active Protocol: Document 11/25/20 11:16 [facility] (Rec: 11/25/20 17:00 [facility] [id number]) OP Mobility Evaluation Bed Mobility Supine to and from Sit painful Transfers Sit to Stand painful, needs use of UE's OP Gait Assessment Gait Gait Assistance Required: Independent Assistive Devices Orthotic/Prosthetic Devices or Brace: No Gait Deviations General Gait Pattern Antalgic,Lateral Trunk Lean Factors Limiting Gait Function Factors Limiting Gait Function Pain Stair Climbing Evaluation Evaluation Level of Assist On Stairs Independent Devices Stair Climbing Assistive Devices Left Railing,Right Railing Comments Stair Climbing Comments step-to ascending, alternating descending both with bilateral UE support PT-OP-H Neuro Start: 11/24/20 16:25 Freq: Status: Active Protocol: Document 11/25/20 11:16 [facility] (Rec: 11/25/20 17:00 [facility] [id number]) Sensation Evaluation Gross Sensation Gross Sensation WNL Comments Summary Comments denies N/T PT-OP-J Posture/Palpation/Skin Start: 11/24/20 16:25 Freq: Status: Active Protocol: Document 11/25/20 11:16 [facility] (Rec: 11/25/20 17:00 [facility] [id number]) Posture Evaluation Position Standing L-Spine Posture Increased Lordosis Ankle/Foot Posture (L) Pronated,(R) Pronated Palpation Assessment Location psoas Palpation Location right Palpation Details nontender iliacus Palpation Location right Palpation Details nontender groin Palpation Location medial right Palpation Findings Tenderness PT-OP-K Range of Motion Start: 11/24/20 16:25 Freq: Status: Active Protocol: Document 11/25/20 11:16 [facility] (Rec: 11/25/20 17:00 [facility] [id number]) Hip Goniometric Range of Motion Hip right Hip ROM WFL No Flexion w/Knee Flexed 125 Straight Leg Raise 75 Extension 0 Abduction 35 Internal Rotation 40 External Rotation 80 Left Hip ROM WFL No Flexion w/Knee Flexed 125 Straight Leg Raise 80 Extension 0 Abduction 35 Internal Rotation 20 External Rotation 65 Hip ROM Limitations Hip ROM Limitations Soft Tissue Tightness,Pain Knee Goniometric Range of Motion Knee kianna Knee ROM WFL Yes PT-OP-L Special Tests Start: 11/24/20 16:25 Freq: Status: Active Protocol: Document 11/25/20 11:16 [facility] (Rec: 11/25/20 17:00 [facility] [id number]) Special Tests Hip Special Tests ingrid test Test Results negative kianna Anterior Labral Test Test Results negative kianna Scour Test Test Results negative kianna GRACE Test Results negative kianna PT-OP-M Strength Start: 11/24/20 16:25 Freq: Status: Active Protocol: Document 11/25/20 11:16 [facility] (Rec: 11/25/20 17:00 [facility] [id number]) Hip Strength Hip Manual Muscle Testing Right Flexion (L2) 4 Good Extension (S1) 3- Fair- Abduction 4 Good Adduction 4 Good External Rotation 4- Good- Internal Rotation 4 Good Comments pain with resisted flexion and extension Left Flexion (L2) 4 Good Extension (S1) 3- Fair- Abduction 4 Good Adduction 4 Good External Rotation 4- Good- Internal Rotation 4 Good Knee Strength Knee Manual Muscle Testing kianna Flexion (S2) 5 Normal Extension (L3) 5 Normal PT-OP-Q Treatments Start: 11/24/20 16:25 Freq: Status: Active Protocol: Document 12/01/20 14:31 [facility] (Rec: 12/01/20 15:39 [facility] [id number]) Therapeutic Exercises Supine Exercises 4 Supine Exercise Name pelvic tilt with hip ab/ER Equipment Used L2 TB Reps/Minutes 10x 3 Supine Exercise Name pelvic tilt with pillow squeeze Reps/Minutes 10x Comments encouraged less intensity if painful 2 Supine Exercise Name pelvic tilt with gluteal set Reps/Minutes 10x 1 Supine Exercise Name pelvic tilt Reps/Minutes 10x Manual Therapy Treatment Soft Tissue Mobilization 1 Body Location adductor, gracilis, and sartorius tendons and musculature, iliopsoas Mobilization Type Myofascial Release,Sustained Pressure Intensity/Depth Moderate Body Position Hooklying PT-OP-R Modalities Start: 11/24/20 16:25 Freq: Status: Active Protocol: Document 12/01/20 14:31 [facility] (Rec: 12/01/20 14:43 [facility] [id number]) Hot Pack/Cold Pack Treatment Hot Pack Location right groin Patient Position Hooklying Treatment Duration (minutes) 15 Patient Tolerance Good Ultrasound Therapy Treatment right medial groin Treatment Duration (minutes) 8 Patient Position Supine Coupling Medium Ultrasound Gel Applicator Size (cm2) 2 Frequency Setting (mHz) 3 Mode Setting Continuous Duty Cycle 100% Intensity Setting (w/cm2) 1.2 PT-OP-T Assessment and Plan Start: 11/24/20 16:25 Freq: Status: Active Protocol: Document 12/01/20 14:31 [facility] (Rec: 12/01/20 14:43 [facility] [id number]) Physical Therapy Assessment Goals Three Impairment Decreased activity tolerance: lower extremity functional scale 14% Short Term Goal (STG) Improve LEFS to at least 30% STG Duration 12/25/20 Spin Instructor Goal (LTG) Improve LEFS to at least 60% as measure of improved activity tolerance LTG Duration Two Impairment antalgic gait, unable to alternate feet ascending stairs Short Term Goal (STG) Patient able to ambulate without a limp with least restrictive device STG Duration 12/25/20 Skilled Nursing Goal (LTG) Patient able to ambulate without a limp without a deviceand with alternating pattern on stairs LTG Duration 01/24/21 One Impairment Pain right groin 12/31 Short Term Goal (STG) Decrease pain to no greater than 3/10 STG Duration 12/25/20 Spin Instructor Goal (LTG) Decrease pain to no greater than 1/10 LTG Duration 01/24/21 Assessment Summary Assessment Good tolerance for treatment today except for hip adduction isometric, instructed to not push as hard. Uncertain if ultrasound or PEMF helpful but patient reporting 50% decrease in pain and has purchased small PEMF unit for home use. Physical Therapy Plan Frequency and Duration Frequency of Treatment 2x/Week Duration of Treatment 8 weeks Plan of Care Start Date 11/25/20 Plan of Care End Date 01/24/21 Therapeutic Interventions Therapeutic Interventions Gait Training,Home Exercise Program,Joint Mobilizations, Manual Therapy,Neuromuscular Re-education,Patient/Caregiver Education,Self-Care/Home Management,Soft Tissue Mobilization,Therapeutic Activities,Therapeutic Exercises Modalities Cold Pack/Ice Massage,Hot Packs,Infrared Therapy, Iontophoresis,Ultrasound Next Visit Focus/Plan Next Note Type Treatment Note Next Visit Plan Continue PT per POC, add adductor stretching.
--- NOTE | 2020-12-03 12:51 | PT.OTN ---
Current Diagnoses Strain of muscle, fascia and tendon of right hip, initial encounter (12/03/20) Physical Therapy Treatment Note PT-OP-A Visit Information Start: 11/24/20 16:25 Freq: Status: Active Protocol: Document 12/03/20 10:34 [facility] (Rec: 12/03/20 11:08 [facility] [id number]) Out-Patient Physical Therapy Visit Information Visit Information Visit Type Treatment Note Visit Start Time 10:35 Visit Stop Time 11:35 Total Visit Minutes 60 Visit Number 3 PT-OP-B Current Condition Start: 11/24/20 16:25 Freq: Status: Active Protocol: Document 11/25/20 11:16 [facility] (Rec: 11/25/20 11:49 [facility] [id number]) Current Condition History of Current Condition Onset Date May 2020 Current Complaints groin pain History of Current Condition Pain started 1 month after fall down 7 stairs, right leg got caught behind, had scrape and bone bruise lower right LE . Landed with left leg in front of her, right leg bent back behind and internally rotated. Started having ischial tuberosity pain 1 month after fall, then states pain began to zig zag around leg, then groin pain. [place] now primarily groin. States unable to alternate LE's going up stairs, but can going down . States her groin seizes up when she goes from prolonged sitting to standing, then works itself out a little. Denies N/T, tingling. Prior Treatments and Tests No imaging. Treatment Goals Patient/Caregiver Goals walk level surfaces and stairs with alternating pattern without pain, be able to go from sitting to stnading without pain. PT-OP-C Subjective Start: 11/24/20 16:25 Freq: Status: Active Protocol: Document 12/03/20 10:34 [facility] (Rec: 12/03/20 12:51 [facility] [id number]) OP-PT Subjective Patient Comments Patient Comments Feels combination of PT and PEMF helpful. Patient Reported Progress Improving PT-OP-G Mobility & Gait Start: 11/24/20 16:25 Freq: Status: Active Protocol: Document 11/25/20 11:16 [facility] (Rec: 11/25/20 17:00 [facility] [id number]) OP Mobility Evaluation Bed Mobility Supine to and from Sit painful Transfers Sit to Stand painful, needs use of UE's OP Gait Assessment Gait Gait Assistance Required: Independent Assistive Devices Orthotic/Prosthetic Devices or Brace: No Gait Deviations General Gait Pattern Antalgic,Lateral Trunk Lean Factors Limiting Gait Function Factors Limiting Gait Function Pain Stair Climbing Evaluation Evaluation Level of Assist On Stairs Independent Devices Stair Climbing Assistive Devices Left Railing,Right Railing Comments Stair Climbing Comments step-to ascending, alternating descending both with bilateral UE support PT-OP-H Neuro Start: 11/24/20 16:25 Freq: Status: Active Protocol: Document 11/25/20 11:16 [facility] (Rec: 11/25/20 17:00 [facility] [id number]) Sensation Evaluation Gross Sensation Gross Sensation WNL Comments Summary Comments denies N/T PT-OP-J Posture/Palpation/Skin Start: 11/24/20 16:25 Freq: Status: Active Protocol: Document 11/25/20 11:16 [facility] (Rec: 11/25/20 17:00 [facility] [id number]) Posture Evaluation Position Standing L-Spine Posture Increased Lordosis Ankle/Foot Posture (L) Pronated,(R) Pronated Palpation Assessment Location psoas Palpation Location right Palpation Details nontender iliacus Palpation Location right Palpation Details nontender groin Palpation Location medial right Palpation Findings Tenderness PT-OP-K Range of Motion Start: 11/24/20 16:25 Freq: Status: Active Protocol: Document 11/25/20 11:16 [facility] (Rec: 11/25/20 17:00 [facility] [id number]) Hip Goniometric Range of Motion Hip right Hip ROM WFL No Flexion w/Knee Flexed 125 Straight Leg Raise 75 Extension 0 Abduction 35 Internal Rotation 40 External Rotation 80 Left Hip ROM WFL No Flexion w/Knee Flexed 125 Straight Leg Raise 80 Extension 0 Abduction 35 Internal Rotation 20 External Rotation 65 Hip ROM Limitations Hip ROM Limitations Soft Tissue Tightness,Pain Knee Goniometric Range of Motion Knee kianna Knee ROM WFL Yes PT-OP-L Special Tests Start: 11/24/20 16:25 Freq: Status: Active Protocol: Document 11/25/20 11:16 [facility] (Rec: 11/25/20 17:00 [facility] [id number]) Special Tests Hip Special Tests ingrid test Test Results negative kianna Anterior Labral Test Test Results negative kianna Scour Test Test Results negative kianna GRACE Test Results negative kianna PT-OP-M Strength Start: 11/24/20 16:25 Freq: Status: Active Protocol: Document 11/25/20 11:16 [facility] (Rec: 11/25/20 17:00 [facility] [id number]) Hip Strength Hip Manual Muscle Testing Right Flexion (L2) 4 Good Extension (S1) 3- Fair- Abduction 4 Good Adduction 4 Good External Rotation 4- Good- Internal Rotation 4 Good Comments pain with resisted flexion and extension Left Flexion (L2) 4 Good Extension (S1) 3- Fair- Abduction 4 Good Adduction 4 Good External Rotation 4- Good- Internal Rotation 4 Good Knee Strength Knee Manual Muscle Testing kianna Flexion (S2) 5 Normal Extension (L3) 5 Normal PT-OP-Q Treatments Start: 11/24/20 16:25 Freq: Status: Active Protocol: Document 12/03/20 10:34 [facility] (Rec: 12/03/20 11:08 [facility] [id number]) Therapeutic Exercises Supine Exercises 4 Supine Exercise Name pelvic tilt with hip ab/ER Equipment Used L2 TB Reps/Minutes 10x 3 Supine Exercise Name pelvic tilt with pillow squeeze Reps/Minutes 10x Comments encouraged less intensity if painful 2 Supine Exercise Name pelvic tilt with gluteal set Reps/Minutes 10x 1 Supine Exercise Name pelvic tilt Reps/Minutes 10x Manual Therapy Treatment Soft Tissue Mobilization 1 Body Location adductor, gracilis, and sartorius tendons and musculature, iliopsoas Mobilization Type Myofascial Release,Sustained Pressure Intensity/Depth Deep Body Position Hooklying PT-OP-R Modalities Start: 11/24/20 16:25 Freq: Status: Active Protocol: Document 12/03/20 10:34 [facility] (Rec: 12/03/20 11:08 [facility] [id number]) Hot Pack/Cold Pack Treatment Hot Pack Location right groin Patient Position Hooklying Treatment Duration (minutes) 15 Patient Tolerance Good Ultrasound Therapy Treatment right medial groin Treatment Duration (minutes) 8 Patient Position Supine Coupling Medium Ultrasound Gel Applicator Size (cm2) 2 Frequency Setting (mHz) 3 Mode Setting Continuous Duty Cycle 100% Intensity Setting (w/cm2) 1.2 PT-OP-T Assessment and Plan Start: 11/24/20 16:25 Freq: Status: Active Protocol: Document 12/03/20 10:34 [facility] (Rec: 12/03/20 11:08 [facility] [id number]) Physical Therapy Assessment Goals Three Impairment Decreased activity tolerance: lower extremity functional scale 14% Short Term Goal (STG) Improve LEFS to at least 30% STG Duration 12/25/20 Senior Living Goal (LTG) Improve LEFS to at least 60% as measure of improved activity tolerance LTG Duration Two Impairment antalgic gait, unable to alternate feet ascending stairs Short Term Goal (STG) Patient able to ambulate without a limp with least restrictive device STG Duration 12/25/20 Radio Presenter Goal (LTG) Patient able to ambulate without a limp without a deviceand with alternating pattern on stairs LTG Duration 01/24/21 One Impairment Pain right groin 12/31 Short Term Goal (STG) Decrease pain to no greater than 3/10 STG Duration 12/25/20 Radio Presenter Goal (LTG) Decrease pain to no greater than 1/10 LTG Duration 01/24/21 Assessment Summary Assessment Improvement in pain noted with treatment combination of PT and PEMF. Able to tolerate deeper STM to adductors and hip flexors. Physical Therapy Plan Frequency and Duration Frequency of Treatment 2x/Week Duration of Treatment 8 weeks Plan of Care Start Date 11/25/20 Plan of Care End Date 01/24/21 Therapeutic Interventions Therapeutic Interventions Gait Training,Home Exercise Program,Joint Mobilizations, Manual Therapy,Neuromuscular Re-education,Patient/Caregiver Education,Self-Care/Home Management,Soft Tissue Mobilization,Therapeutic Activities,Therapeutic Exercises Modalities Cold Pack/Ice Massage,Hot Packs,Infrared Therapy, Iontophoresis,Ultrasound Next Visit Focus/Plan Next Note Type Treatment Note Next Visit Plan Continue PT per POC, add adductor stretching.
--- NOTE | 2020-12-08 16:20 | PT.OTN ---
Current Diagnoses Strain of muscle, fascia and tendon of right hip, initial encounter (12/08/20) Physical Therapy Treatment Note PT-OP-A Visit Information Start: 11/24/20 16:25 Freq: Status: Active Protocol: Document 12/08/20 15:19 [facility] (Rec: 12/08/20 15:37 [facility] [id number]) Out-Patient Physical Therapy Visit Information Visit Information Visit Type Treatment Note Visit Start Time 15:20 Visit Stop Time 16:15 Total Visit Minutes 55 Visit Number 4 PT-OP-B Current Condition Start: 11/24/20 16:25 Freq: Status: Active Protocol: Document 11/25/20 11:16 [facility] (Rec: 11/25/20 11:49 [facility] [id number]) Current Condition History of Current Condition Onset Date May 2020 Current Complaints groin pain History of Current Condition Pain started 1 month after fall down 7 stairs, right leg got caught behind, had scrape and bone bruise lower right LE . Landed with left leg in front of her, right leg bent back behind and internally rotated. Started having ischial tuberosity pain 1 month after fall, then states pain began to zig zag around leg, then groin pain. Jacinto now primarily groin. States unable to alternate LE's going up stairs, but can going down . States her groin seizes up when she goes from prolonged sitting to standing, then works itself out a little. Denies N/T, tingling. Prior Treatments and Tests No imaging. Treatment Goals Patient/Caregiver Goals walk level surfaces and stairs with alternating pattern without pain, be able to go from sitting to stnading without pain. PT-OP-C Subjective Start: 11/24/20 16:25 Freq: Status: Active Protocol: Document 12/08/20 15:19 [facility] (Rec: 12/08/20 15:37 [facility] [id number]) OP-PT Subjective Patient Comments Patient Comments After last session leg felt good and relaxed, able to walk better than she has for a long time; walking out to the car I couldn't believe how good it felt. Then the pain increased to the point I could hardly walk. I know I told you to go for it when you talked about easing up. Used alternating ice and heat, better but still painful. Agreeable to manual treatment with less depth and intensity today. Having PEMF treatment tonight. PT-OP-G Mobility & Gait Start: 11/24/20 16:25 Freq: Status: Active Protocol: Document 11/25/20 11:16 [facility] (Rec: 11/25/20 17:00 [facility] [id number]) OP Mobility Evaluation Bed Mobility Supine to and from Sit painful Transfers Sit to Stand painful, needs use of UE's OP Gait Assessment Gait Gait Assistance Required: Independent Assistive Devices Orthotic/Prosthetic Devices or Brace: No Gait Deviations General Gait Pattern Antalgic,Lateral Trunk Lean Factors Limiting Gait Function Factors Limiting Gait Function Pain Stair Climbing Evaluation Evaluation Level of Assist On Stairs Independent Devices Stair Climbing Assistive Devices Left Railing,Right Railing Comments Stair Climbing Comments step-to ascending, alternating descending both with bilateral UE support PT-OP-H Neuro Start: 11/24/20 16:25 Freq: Status: Active Protocol: Document 11/25/20 11:16 [facility] (Rec: 11/25/20 17:00 [facility] [id number]) Sensation Evaluation Gross Sensation Gross Sensation WNL Comments Summary Comments denies N/T PT-OP-J Posture/Palpation/Skin Start: 11/24/20 16:25 Freq: Status: Active Protocol: Document 11/25/20 11:16 [facility] (Rec: 11/25/20 17:00 [facility] [id number]) Posture Evaluation Position Standing L-Spine Posture Increased Lordosis Ankle/Foot Posture (L) Pronated,(R) Pronated Palpation Assessment Location psoas Palpation Location right Palpation Details nontender iliacus Palpation Location right Palpation Details nontender groin Palpation Location medial right Palpation Findings Tenderness PT-OP-K Range of Motion Start: 11/24/20 16:25 Freq: Status: Active Protocol: Document 11/25/20 11:16 [facility] (Rec: 11/25/20 17:00 [facility] [id number]) Hip Goniometric Range of Motion Hip right Hip ROM WFL No Flexion w/Knee Flexed 125 Straight Leg Raise 75 Extension 0 Abduction 35 Internal Rotation 40 External Rotation 80 Left Hip ROM WFL No Flexion w/Knee Flexed 125 Straight Leg Raise 80 Extension 0 Abduction 35 Internal Rotation 20 External Rotation 65 Hip ROM Limitations Hip ROM Limitations Soft Tissue Tightness,Pain Knee Goniometric Range of Motion Knee kianna Knee ROM WFL Yes PT-OP-L Special Tests Start: 11/24/20 16:25 Freq: Status: Active Protocol: Document 11/25/20 11:16 [facility] (Rec: 11/25/20 17:00 [facility] [id number]) Special Tests Hip Special Tests ingrid test Test Results negative kianna Anterior Labral Test Test Results negative kianna Scour Test Test Results negative kianna GRACE Test Results negative kianna PT-OP-M Strength Start: 11/24/20 16:25 Freq: Status: Active Protocol: Document 11/25/20 11:16 [facility] (Rec: 11/25/20 17:00 [facility] [id number]) Hip Strength Hip Manual Muscle Testing Right Flexion (L2) 4 Good Extension (S1) 3- Fair- Abduction 4 Good Adduction 4 Good External Rotation 4- Good- Internal Rotation 4 Good Comments pain with resisted flexion and extension Left Flexion (L2) 4 Good Extension (S1) 3- Fair- Abduction 4 Good Adduction 4 Good External Rotation 4- Good- Internal Rotation 4 Good Knee Strength Knee Manual Muscle Testing kianna Flexion (S2) 5 Normal Extension (L3) 5 Normal PT-OP-Q Treatments Start: 11/24/20 16:25 Freq: Status: Active Protocol: Document 12/08/20 15:19 [facility] (Rec: 12/08/20 15:37 [facility] [id number]) Therapeutic Exercises Supine Exercises 5 Supine Exercise Name adductor stretch Side right Reps/Minutes 30 x 2 Comments manual 4 Supine Exercise Name pelvic tilt with hip ab/ER Equipment Used L2 TB Reps/Minutes 10x 3 Supine Exercise Name pelvic tilt with pillow squeeze Reps/Minutes 10x Comments encouraged less intensity if painful 2 Supine Exercise Name pelvic tilt with gluteal set Reps/Minutes 10x 1 Supine Exercise Name pelvic tilt Reps/Minutes 10x Manual Therapy Treatment Soft Tissue Mobilization pin and stretch Body Location psoas Mobilization Type Sustained Pressure Comments with gentle IR/ER of hip 1 Body Location adductor, gracilis, and sartorius tendons and musculature, iliopsoas Mobilization Type Myofascial Release,Sustained Pressure Intensity/Depth Deep Body Position Hooklying Self-Care/Home Management Treatment Education Other Education self-massage; pin and stretch PT-OP-R Modalities Start: 11/24/20 16:25 Freq: Status: Active Protocol: Document 12/08/20 15:19 [facility] (Rec: 12/08/20 15:37 [facility] [id number]) Hot Pack/Cold Pack Treatment Hot Pack Location right groin Patient Position Hooklying Treatment Duration (minutes) 15 Patient Tolerance Good Ultrasound Therapy Treatment right medial groin Treatment Duration (minutes) 8 Patient Position Supine Coupling Medium Ultrasound Gel Applicator Size (cm2) 2 Frequency Setting (mHz) 3 Mode Setting Continuous Duty Cycle 100% Intensity Setting (w/cm2) 1.2 PT-OP-T Assessment and Plan Start: 11/24/20 16:25 Freq: Status: Active Protocol: Document 12/08/20 15:19 [facility] (Rec: 12/08/20 15:37 [facility] [id number]) Physical Therapy Assessment Goals Three Impairment Decreased activity tolerance: lower extremity functional scale 14% Short Term Goal (STG) Improve LEFS to at least 30% STG Duration 12/25/20 [facility] Goal (LTG) Improve LEFS to at least 60% as measure of improved activity tolerance LTG Duration Two Impairment antalgic gait, unable to alternate feet ascending stairs Short Term Goal (STG) Patient able to ambulate without a limp with least restrictive device STG Duration 12/25/20 [facility] Goal (LTG) Patient able to ambulate without a limp without a deviceand with alternating pattern on stairs LTG Duration 01/24/21 One Impairment Pain right groin 6/10 Short Term Goal (STG) Decrease pain to no greater than 3/10 STG Duration 12/25/20 [employer] [facility] [employer] Goal (LTG) Decrease pain to no greater than 1/10 LTG Duration 01/24/21 Assessment Summary Assessment Initial improvement after last session, then increase in symptoms as noted above. Manual tissue mobilization less deep today Physical Therapy Plan Frequency and Duration Frequency of Treatment 2x/Week Duration of Treatment 8 weeks Plan of Care Start Date 11/25/20 Plan of Care End Date 01/24/21 Therapeutic Interventions Therapeutic Interventions Gait Training,Home Exercise Program,Joint Mobilizations, Manual Therapy,Neuromuscular Re-education,Patient/Caregiver Education,Self-Care/Home Management,Soft Tissue Mobilization,Therapeutic Activities,Therapeutic Exercises Modalities Cold Pack/Ice Massage,Hot Packs,Infrared Therapy, Iontophoresis,Ultrasound Next Visit Focus/Plan Next Note Type Treatment Note Next Visit Plan Continue PT per POC, review pin and stretch, HEP. Progress core exercises as tolerated.
--- NOTE | 2020-12-16 16:40 | PT.OTN ---
Current Diagnoses Strain of muscle, fascia and tendon of right hip, initial encounter (12/15/20) Physical Therapy Treatment Note PT-OP-A Visit Information Start: 11/24/20 16:25 Freq: Status: Active Protocol: Document 12/15/20 08:16 [facility] (Rec: 12/15/20 08:33 [facility] [id number]) Out-Patient Physical Therapy Visit Information Visit Information Visit Type Treatment Note Visit Start Time 08:15 Visit Stop Time 09:10 Total Visit Minutes 55 Visit Number 5 PT-OP-B Current Condition Start: 11/24/20 16:25 Freq: Status: Active Protocol: Document 11/25/20 11:16 [facility] (Rec: 11/25/20 11:49 [facility] [id number]) Current Condition History of Current Condition Onset Date May 2020 Current Complaints groin pain History of Current Condition Pain started 1 month after fall down 7 stairs, right leg got caught behind, had scrape and bone bruise lower right LE . Landed with left leg in front of her, right leg bent back behind and internally rotated. Started having ischial tuberosity pain 1 month after fall, then states pain began to zig zag around leg, then groin pain. [place] now primarily groin. States unable to alternate LE's going up stairs, but can going down . States her groin seizes up when she goes from prolonged sitting to standing, then works itself out a little. Denies N/T, tingling. Prior Treatments and Tests No imaging. Treatment Goals Patient/Caregiver Goals walk level surfaces and stairs with alternating pattern without pain, be able to go from sitting to stnading without pain. PT-OP-C Subjective Start: 11/24/20 16:25 Freq: Status: Active Protocol: Document 12/15/20 08:16 [facility] (Rec: 12/15/20 08:33 [facility] [id number]) OP-PT Subjective Patient Comments Patient Comments Patient reports increase in pain without PT, and decreased frequency of PEMF. Fair compliance to HEP. PT-OP-G Mobility & Gait Start: 11/24/20 16:25 Freq: Status: Active Protocol: Document 11/25/20 11:16 [facility] (Rec: 11/25/20 17:00 [facility] [id number]) OP Mobility Evaluation Bed Mobility Supine to and from Sit painful Transfers Sit to Stand painful, needs use of UE's OP Gait Assessment Gait Gait Assistance Required: Independent Assistive Devices Orthotic/Prosthetic Devices or Brace: No Gait Deviations General Gait Pattern Antalgic,Lateral Trunk Lean Factors Limiting Gait Function Factors Limiting Gait Function Pain Stair Climbing Evaluation Evaluation Level of Assist On Stairs Independent Devices Stair Climbing Assistive Devices Left Railing,Right Railing Comments Stair Climbing Comments step-to ascending, alternating descending both with bilateral UE support PT-OP-H Neuro Start: 11/24/20 16:25 Freq: Status: Active Protocol: Document 11/25/20 11:16 [facility] (Rec: 11/25/20 17:00 [facility] [id number]) Sensation Evaluation Gross Sensation Gross Sensation WNL Comments Summary Comments denies N/T PT-OP-J Posture/Palpation/Skin Start: 11/24/20 16:25 Freq: Status: Active Protocol: Document 11/25/20 11:16 [facility] (Rec: 11/25/20 17:00 [facility] [id number]) Posture Evaluation Position Standing L-Spine Posture Increased Lordosis Ankle/Foot Posture (L) Pronated,(R) Pronated Palpation Assessment Location psoas Palpation Location right Palpation Details nontender iliacus Palpation Location right Palpation Details nontender groin Palpation Location medial right Palpation Findings Tenderness PT-OP-K Range of Motion Start: 11/24/20 16:25 Freq: Status: Active Protocol: Document 11/25/20 11:16 [facility] (Rec: 11/25/20 17:00 [facility] [id number]) Hip Goniometric Range of Motion Hip right Hip ROM WFL No Flexion w/Knee Flexed 125 Straight Leg Raise 75 Extension 0 Abduction 35 Internal Rotation 40 External Rotation 80 Left Hip ROM WFL No Flexion w/Knee Flexed 125 Straight Leg Raise 80 Extension 0 Abduction 35 Internal Rotation 20 External Rotation 65 Hip ROM Limitations Hip ROM Limitations Soft Tissue Tightness,Pain Knee Goniometric Range of Motion Knee kianna Knee ROM WFL Yes PT-OP-L Special Tests Start: 11/24/20 16:25 Freq: Status: Active Protocol: Document 11/25/20 11:16 [facility] (Rec: 11/25/20 17:00 [facility] [id number]) Special Tests Hip Special Tests ingrid test Test Results negative kianna Anterior Labral Test Test Results negative kianna Scour Test Test Results negative kianna GRACE Test Results negative kianna PT-OP-M Strength Start: 11/24/20 16:25 Freq: Status: Active Protocol: Document 11/25/20 11:16 [facility] (Rec: 11/25/20 17:00 [facility] [id number]) Hip Strength Hip Manual Muscle Testing Right Flexion (L2) 4 Good Extension (S1) 3- Fair- Abduction 4 Good Adduction 4 Good External Rotation 4- Good- Internal Rotation 4 Good Comments pain with resisted flexion and extension Left Flexion (L2) 4 Good Extension (S1) 3- Fair- Abduction 4 Good Adduction 4 Good External Rotation 4- Good- Internal Rotation 4 Good Knee Strength Knee Manual Muscle Testing kianna Flexion (S2) 5 Normal Extension (L3) 5 Normal PT-OP-Q Treatments Start: 11/24/20 16:25 Freq: Status: Active Protocol: Document 12/15/20 08:16 [facility] (Rec: 12/15/20 08:33 [facility] [id number]) Gait Training Gait Activity forward Device Used none Treatment Focus symmetry of kianna LE's, gluteal activation, no hip drop Comments mirror for visual feedback. Manual Therapy Treatment Soft Tissue Mobilization pin and stretch Body Location psoas Mobilization Type Sustained Pressure Comments with gentle IR/ER of hip 1 Body Location adductor, gracilis, and sartorius tendons and musculature, iliopsoas Mobilization Type Myofascial Release,Sustained Pressure Intensity/Depth Deep Body Position Hooklying Self-Care/Home Management Treatment Education Other Education self-massage; pin and stretch PT-OP-R Modalities Start: 11/24/20 16:25 Freq: Status: Active Protocol: Document 12/15/20 08:16 [facility] (Rec: 12/15/20 08:33 [facility] [id number]) Hot Pack/Cold Pack Treatment Hot Pack Location right groin Patient Position Hooklying Treatment Duration (minutes) 15 Patient Tolerance Good Ultrasound Therapy Treatment right medial groin Treatment Duration (minutes) 8 Patient Position Supine Coupling Medium Ultrasound Gel Applicator Size (cm2) 2 Frequency Setting (mHz) 3 Mode Setting Continuous Duty Cycle 100% Intensity Setting (w/cm2) 1.2 PT-OP-T Assessment and Plan Start: 11/24/20 16:25 Freq: Status: Active Protocol: Document 12/15/20 08:16 [facility] (Rec: 12/15/20 08:33 [facility] [id number]) Physical Therapy Assessment Goals Three Impairment Decreased activity tolerance: lower extremity functional scale 14% Short Term Goal (STG) Improve LEFS to at least 30% STG Duration 12/25/20 [facility] [employer] Goal (LTG) Improve LEFS to at least 60% as measure of improved activity tolerance LTG Duration Two Impairment antalgic gait, unable to alternate feet ascending stairs Short Term Goal (STG) Patient able to ambulate without a limp with least restrictive device STG Duration 12/25/20 Care Home Goal (LTG) Patient able to ambulate without a limp without a deviceand with alternating pattern on stairs LTG Duration 01/24/21 One Impairment Pain right groin 12/31 Short Term Goal (STG) Decrease pain to no greater than 3/10 STG Duration 12/25/20 [facility] Goal (LTG) Decrease pain to no greater than 1/10 LTG Duration 01/24/21 Assessment Summary Assessment Patient demonstrated good understanding of potential contribution of habitual postures and movements in her pain but has difficulty correcting. Improved pain with ultrasound and manual techniques. Physical Therapy Plan Frequency and Duration Frequency of Treatment 2x/Week Duration of Treatment 8 weeks Plan of Care Start Date 11/25/20 Plan of Care End Date 01/24/21 Therapeutic Interventions Therapeutic Interventions Gait Training,Home Exercise Program,Joint Mobilizations, Manual Therapy,Neuromuscular Re-education,Patient/Caregiver Education,Self-Care/Home Management,Soft Tissue Mobilization,Therapeutic Activities,Therapeutic Exercises Modalities Cold Pack/Ice Massage,Hot Packs,Infrared Therapy, Iontophoresis,Ultrasound Next Visit Focus/Plan Next Note Type Treatment Note Next Visit Plan Continue PT per POC, review pin and stretch, HEP. Progress core exercises as tolerated, possible use of therapy ball.
--- NOTE | 2020-12-17 11:37 | PT.OTN ---
Current Diagnoses Strain of muscle, fascia and tendon of right hip, initial encounter (12/17/20) Physical Therapy Treatment Note PT-OP-A Visit Information Start: 11/24/20 16:25 Freq: Status: Active Protocol: Document 12/17/20 10:31 [facility] (Rec: 12/17/20 11:20 [facility] [id number]) Out-Patient Physical Therapy Visit Information Visit Information Visit Type Treatment Note Visit Start Time 10:32 Visit Stop Time 11:28 Total Visit Minutes 56 Visit Number 5 PT-OP-B Current Condition Start: 11/24/20 16:25 Freq: Status: Active Protocol: Document 11/25/20 11:16 [facility] (Rec: 11/25/20 11:49 [facility] [id number]) Current Condition History of Current Condition Onset Date May 2020 Current Complaints groin pain History of Current Condition Pain started 1 month after fall down 7 stairs, right leg got caught behind, had scrape and bone bruise lower right LE . Landed with left leg in front of her, right leg bent back behind and internally rotated. Started having ischial tuberosity pain 1 month after fall, then states pain began to zig zag around leg, then groin pain. Jacinto now primarily groin. States unable to alternate LE's going up stairs, but can going down . States her groin seizes up when she goes from prolonged sitting to standing, then works itself out a little. Denies N/T, tingling. Prior Treatments and Tests No imaging. Treatment Goals Patient/Caregiver Goals walk level surfaces and stairs with alternating pattern without pain, be able to go from sitting to stnading without pain. PT-OP-C Subjective Start: 11/24/20 16:25 Freq: Status: Active Protocol: Document 12/17/20 10:31 [facility] (Rec: 12/17/20 11:20 [facility] [id number]) OP-PT Subjective Patient Comments Patient Comments Better after last treatment, then pain gradually came back. Very busy getting ready for company, not as compliant to HEP as should be. PT-OP-G Mobility & Gait Start: 11/24/20 16:25 Freq: Status: Active Protocol: Document 11/25/20 11:16 [facility] (Rec: 11/25/20 17:00 [facility] [id number]) OP Mobility Evaluation Bed Mobility Supine to and from Sit painful Transfers Sit to Stand painful, needs use of UE's OP Gait Assessment Gait Gait Assistance Required: Independent Assistive Devices Orthotic/Prosthetic Devices or Brace: No Gait Deviations General Gait Pattern Antalgic,Lateral Trunk Lean Factors Limiting Gait Function Factors Limiting Gait Function Pain Stair Climbing Evaluation Evaluation Level of Assist On Stairs Independent Devices Stair Climbing Assistive Devices Left Railing,Right Railing Comments Stair Climbing Comments step-to ascending, alternating descending both with bilateral UE support PT-OP-H Neuro Start: 11/24/20 16:25 Freq: Status: Active Protocol: Document 11/25/20 11:16 [facility] (Rec: 11/25/20 17:00 [facility] [id number]) Sensation Evaluation Gross Sensation Gross Sensation WNL Comments Summary Comments denies N/T PT-OP-J Posture/Palpation/Skin Start: 11/24/20 16:25 Freq: Status: Active Protocol: Document 11/25/20 11:16 [facility] (Rec: 11/25/20 17:00 [facility] [id number]) Posture Evaluation Position Standing L-Spine Posture Increased Lordosis Ankle/Foot Posture (L) Pronated,(R) Pronated Palpation Assessment Location psoas Palpation Location right Palpation Details nontender iliacus Palpation Location right Palpation Details nontender groin Palpation Location medial right Palpation Findings Tenderness PT-OP-K Range of Motion Start: 11/24/20 16:25 Freq: Status: Active Protocol: Document 11/25/20 11:16 [facility] (Rec: 11/25/20 17:00 [facility] [id number]) Hip Goniometric Range of Motion Hip right Hip ROM WFL No Flexion w/Knee Flexed 125 Straight Leg Raise 75 Extension 0 Abduction 35 Internal Rotation 40 External Rotation 80 Left Hip ROM WFL No Flexion w/Knee Flexed 125 Straight Leg Raise 80 Extension 0 Abduction 35 Internal Rotation 20 External Rotation 65 Hip ROM Limitations Hip ROM Limitations Soft Tissue Tightness,Pain Knee Goniometric Range of Motion Knee kianna Knee ROM WFL Yes PT-OP-L Special Tests Start: 11/24/20 16:25 Freq: Status: Active Protocol: Document 11/25/20 11:16 [facility] (Rec: 11/25/20 17:00 [facility] [id number]) Special Tests Hip Special Tests ingrid test Test Results negative kianna Anterior Labral Test Test Results negative kianna Scour Test Test Results negative kianna GRACE Test Results negative kianna PT-OP-M Strength Start: 11/24/20 16:25 Freq: Status: Active Protocol: Document 11/25/20 11:16 [facility] (Rec: 11/25/20 17:00 [facility] [id number]) Hip Strength Hip Manual Muscle Testing Right Flexion (L2) 4 Good Extension (S1) 3- Fair- Abduction 4 Good Adduction 4 Good External Rotation 4- Good- Internal Rotation 4 Good Comments pain with resisted flexion and extension Left Flexion (L2) 4 Good Extension (S1) 3- Fair- Abduction 4 Good Adduction 4 Good External Rotation 4- Good- Internal Rotation 4 Good Knee Strength Knee Manual Muscle Testing kianna Flexion (S2) 5 Normal Extension (L3) 5 Normal PT-OP-Q Treatments Start: 11/24/20 16:25 Freq: Status: Active Protocol: Document 12/17/20 10:31 [facility] (Rec: 12/17/20 11:20 [facility] [id number]) Gym Equipment Therapeutic Ball hip add Ball Size/Color 65 cm ball sitting, squeezing small ball Body Position Sitting sitting bal Ball Size/Color 65 cm Therapeutic Exercises Standing Exercises BOSU lunge Reps/Minutes 6x ea LE Comments emphasis on neutral LE alignment and stabilization, gentle hip flexor stret Gait Training Gait Activity forward Device Used none Treatment Focus symmetry of kianna LE's, gluteal activation, no hip drop Comments mirror for visual feedback. Manual Therapy Treatment Soft Tissue Mobilization 1 Body Location adductor, gracilis, and sartorius tendons and musculature, iliopsoas, quad Mobilization Type Instrument Assisted,Myofascial Release,Sustained Pressure Intensity/Depth Deep Body Position Hooklying PT-OP-R Modalities Start: 11/24/20 16:25 Freq: Status: Active Protocol: Document 12/17/20 10:31 [facility] (Rec: 12/17/20 11:37 [facility] [id number]) Hot Pack/Cold Pack Treatment Hot Pack Location right groin Patient Position Hooklying Treatment Duration (minutes) 15 Patient Tolerance Good PT-OP-T Assessment and Plan Start: 11/24/20 16:25 Freq: Status: Active Protocol: Document 12/17/20 10:31 [facility] (Rec: 12/17/20 11:20 [facility] [id number]) Physical Therapy Assessment Goals Three Impairment Decreased activity tolerance: lower extremity functional scale 14% Short Term Goal (STG) Improve LEFS to at least 30% STG Duration 12/25/20 [facility] Goal (LTG) Improve LEFS to at least 60% as measure of improved activity tolerance LTG Duration Two Impairment antalgic gait, unable to alternate feet ascending stairs Short Term Goal (STG) Patient able to ambulate without a limp with least restrictive device STG Duration 12/25/20 Procurement Cost Coordinator Goal (LTG) Patient able to ambulate without a limp without a deviceand with alternating pattern on stairs LTG Duration 01/24/21 One Impairment Pain right groin 12/31 Short Term Goal (STG) Decrease pain to no greater than 3/10 STG Duration 12/25/20 Procurement Cost Coordinator Goal (LTG) Decrease pain to no greater than 1/10 LTG Duration 01/24/21 Assessment Summary Assessment Further gait training with mirror for visual feedback, verbal and manual cues for muscle activation and postural alignment. Education on sit to stand alignment, added seated therapy ball ther ex with ball squeeze which is now not painful as was initially. Good decrease inpain with therapy, needs further strengthening and stabilization. Physical Therapy Plan Frequency and Duration Frequency of Treatment 2x/Week Duration of Treatment 8 weeks Plan of Care Start Date 11/25/20 Plan of Care End Date 01/24/21 Therapeutic Interventions Therapeutic Interventions Gait Training,Home Exercise Program,Joint Mobilizations, Manual Therapy,Neuromuscular Re-education,Patient/Caregiver Education,Self-Care/Home Management,Soft Tissue Mobilization,Therapeutic Activities,Therapeutic Exercises Modalities Cold Pack/Ice Massage,Hot Packs,Infrared Therapy, Iontophoresis,Ultrasound Next Visit Focus/Plan Next Note Type Treatment Note Next Visit Plan Continue therapeutic exercise progression, gait training, patient education, manual therapy and modalities as needed for pain.
--- NOTE | 2020-12-22 15:49 | PT.OTN ---
Current Diagnoses Strain of muscle, fascia and tendon of right hip, initial encounter (12/22/20) Physical Therapy Treatment Note PT-OP-A Visit Information Start: 11/24/20 16:25 Freq: Status: Active Protocol: Document 12/22/20 15:23 [facility] (Rec: 12/22/20 15:28 [facility] [id number]) Out-Patient Physical Therapy Visit Information Visit Information Visit Type Treatment Note Visit Start Time 14:40 Visit Stop Time 15:34 Total Visit Minutes 54 Visit Number 6 PT-OP-B Current Condition Start: 11/24/20 16:25 Freq: Status: Active Protocol: Document 11/25/20 11:16 [facility] (Rec: 11/25/20 11:49 [facility] [id number]) Current Condition History of Current Condition Onset Date May 2020 Current Complaints groin pain History of Current Condition Pain started 1 month after fall down 7 stairs, right leg got caught behind, had scrape and bone bruise lower right LE . Landed with left leg in front of her, right leg bent back behind and internally rotated. Started having ischial tuberosity pain 1 month after fall, then states pain began to zig zag around leg, then groin pain. [place]into now primarily groin. States unable to alternate LE's going up stairs, but can going down . States her groin seizes up when she goes from prolonged sitting to standing, then works itself out a little. Denies N/T, tingling. Prior Treatments and Tests No imaging. Treatment Goals Patient/Caregiver Goals walk level surfaces and stairs with alternating pattern without pain, be able to go from sitting to stnading without pain. PT-OP-C Subjective Start: 11/24/20 16:25 Freq: Status: Active Protocol: Document 12/22/20 15:23 [facility] (Rec: 12/22/20 15:28 [facility] [id number]) OP-PT Subjective Patient Comments Patient Comments Pain variable, worst with sit to stand after sitting for awhile. States she is paying attention to her walking as instructed and is frustrated because it slows me down. but I feel like is making a difference. PT-OP-G Mobility & Gait Start: 11/24/20 16:25 Freq: Status: Active Protocol: Document 11/25/20 11:16 [facility] (Rec: 11/25/20 17:00 [facility] [id number]) OP Mobility Evaluation Bed Mobility Supine to and from Sit painful Transfers Sit to Stand painful, needs use of UE's OP Gait Assessment Gait Gait Assistance Required: Independent Assistive Devices Orthotic/Prosthetic Devices or Brace: No Gait Deviations General Gait Pattern Antalgic,Lateral Trunk Lean Factors Limiting Gait Function Factors Limiting Gait Function Pain Stair Climbing Evaluation Evaluation Level of Assist On Stairs Independent Devices Stair Climbing Assistive Devices Left Railing,Right Railing Comments Stair Climbing Comments step-to ascending, alternating descending both with bilateral UE support PT-OP-H Neuro Start: 11/24/20 16:25 Freq: Status: Active Protocol: Document 11/25/20 11:16 [facility] (Rec: 11/25/20 17:00 [facility] [id number]) Sensation Evaluation Gross Sensation Gross Sensation WNL Comments Summary Comments denies N/T PT-OP-J Posture/Palpation/Skin Start: 11/24/20 16:25 Freq: Status: Active Protocol: Document 11/25/20 11:16 [facility] (Rec: 11/25/20 17:00 [facility] [id number]) Posture Evaluation Position Standing L-Spine Posture Increased Lordosis Ankle/Foot Posture (L) Pronated,(R) Pronated Palpation Assessment Location psoas Palpation Location right Palpation Details nontender iliacus Palpation Location right Palpation Details nontender groin Palpation Location medial right Palpation Findings Tenderness PT-OP-K Range of Motion Start: 11/24/20 16:25 Freq: Status: Active Protocol: Document 11/25/20 11:16 [facility] (Rec: 11/25/20 17:00 [facility] [id number]) Hip Goniometric Range of Motion Hip right Hip ROM WFL No Flexion w/Knee Flexed 125 Straight Leg Raise 75 Extension 0 Abduction 35 Internal Rotation 40 External Rotation 80 Left Hip ROM WFL No Flexion w/Knee Flexed 125 Straight Leg Raise 80 Extension 0 Abduction 35 Internal Rotation 20 External Rotation 65 Hip ROM Limitations Hip ROM Limitations Soft Tissue Tightness,Pain Knee Goniometric Range of Motion Knee kianna Knee ROM WFL Yes PT-OP-L Special Tests Start: 11/24/20 16:25 Freq: Status: Active Protocol: Document 11/25/20 11:16 [facility] (Rec: 11/25/20 17:00 [facility] [id number]) Special Tests Hip Special Tests ingrid test Test Results negative kianna Anterior Labral Test Test Results negative kianna Scour Test Test Results negative kianna GRACE Test Results negative kianna PT-OP-M Strength Start: 11/24/20 16:25 Freq: Status: Active Protocol: Document 11/25/20 11:16 [facility] (Rec: 11/25/20 17:00 [facility] [id number]) Hip Strength Hip Manual Muscle Testing Right Flexion (L2) 4 Good Extension (S1) 3- Fair- Abduction 4 Good Adduction 4 Good External Rotation 4- Good- Internal Rotation 4 Good Comments pain with resisted flexion and extension Left Flexion (L2) 4 Good Extension (S1) 3- Fair- Abduction 4 Good Adduction 4 Good External Rotation 4- Good- Internal Rotation 4 Good Knee Strength Knee Manual Muscle Testing kianna Flexion (S2) 5 Normal Extension (L3) 5 Normal PT-OP-Q Treatments Start: 11/24/20 16:25 Freq: Status: Active Protocol: Document 12/22/20 15:23 [facility] (Rec: 12/22/20 15:28 [facility] [id number]) Therapeutic Exercises Standing Exercises BOSU lunge Reps/Minutes 6x ea LE Comments emphasis on neutral LE alignment and stabilization, gentle hip flexor stret Gait Training Gait Activity forward Device Used none Treatment Focus symmetry of kianna LE's, gluteal activation, no hip drop Comments mirror for visual feedback. Manual Therapy Treatment Soft Tissue Mobilization 1 Body Location adductor, gracilis, and sartorius tendons and musculature, iliopsoas, quad Mobilization Type Instrument Assisted,Myofascial Release,Sustained Pressure Intensity/Depth Deep Body Position Hooklying PT-OP-R Modalities Start: 11/24/20 16:25 Freq: Status: Active Protocol: Document 12/22/20 15:23 [facility] (Rec: 12/22/20 15:28 [facility] [id number]) Hot Pack/Cold Pack Treatment Hot Pack Location right groin Patient Position Hooklying Treatment Duration (minutes) 15 Patient Tolerance Good Ultrasound Therapy Treatment right medial groin Treatment Duration (minutes) 8 Patient Position Supine Coupling Medium Ultrasound Gel Applicator Size (cm2) 2 Frequency Setting (mHz) 3 Mode Setting Continuous Duty Cycle 100% Intensity Setting (w/cm2) 1.2 PT-OP-T Assessment and Plan Start: 11/24/20 16:25 Freq: Status: Active Protocol: Document 12/22/20 15:23 [facility] (Rec: 12/22/20 15:28 [facility] [id number]) Physical Therapy Assessment Goals Three Impairment Decreased activity tolerance: lower extremity functional scale 14% Short Term Goal (STG) Improve LEFS to at least 30% STG Duration 12/25/20 Associate Editor Goal (LTG) Improve LEFS to at least 60% as measure of improved activity tolerance LTG Duration Two Impairment antalgic gait, unable to alternate feet ascending stairs Short Term Goal (STG) Patient able to ambulate without a limp with least restrictive device STG Duration 12/25/20 [facility] Goal (LTG) Patient able to ambulate without a limp without a deviceand with alternating pattern on stairs LTG Duration 01/24/21 One Impairment Pain right groin 12/31 Short Term Goal (STG) Decrease pain to no greater than 3/10 STG Duration 12/25/20 [facility] Goal (LTG) Decrease pain to no greater than 1/10 LTG Duration 01/24/21 Assessment Summary Assessment PRogressing with gait mechanics understanding, able to tolerate deeper soft tissue mobilization right adductors, hip flexors and quads Physical Therapy Plan Frequency and Duration Frequency of Treatment 2x/Week Duration of Treatment 8 weeks Plan of Care Start Date 11/25/20 Plan of Care End Date 01/24/21 Therapeutic Interventions Therapeutic Interventions Gait Training,Home Exercise Program,Joint Mobilizations, Manual Therapy,Neuromuscular Re-education,Patient/Caregiver Education,Self-Care/Home Management,Soft Tissue Mobilization,Therapeutic Activities,Therapeutic Exercises Modalities Cold Pack/Ice Massage,Hot Packs,Infrared Therapy, Iontophoresis,Ultrasound Next Visit Focus/Plan Next Note Type Treatment Note Next Visit Plan Continue therapeutic exercise progression, gait training, patient education, manual therapy and modalities as needed for pain.
--- NOTE | 2020-12-24 12:01 | PT.OTN ---
Current Diagnoses Strain of muscle, fascia and tendon of right hip, initial encounter (12/24/20) Physical Therapy Treatment Note PT-OP-A Visit Information Start: 11/24/20 16:25 Freq: Status: Active Protocol: Document 12/24/20 11:56 [facility] (Rec: 12/24/20 12:01 [facility] [id number]) Out-Patient Physical Therapy Visit Information Visit Information Visit Type Treatment Note Visit Start Time 09:00 Visit Stop Time 09:55 Total Visit Minutes 55 Visit Number 7 PT-OP-B Current Condition Start: 11/24/20 16:25 Freq: Status: Active Protocol: Document 11/25/20 11:16 [facility] (Rec: 11/25/20 11:49 [facility] [id number]) Current Condition History of Current Condition Onset Date May 2020 Current Complaints groin pain History of Current Condition Pain started 1 month after fall down 7 stairs, right leg got caught behind, had scrape and bone bruise lower right LE . Landed with left leg in front of her, right leg bent back behind and internally rotated. Started having ischial tuberosity pain 1 month after fall, then states pain began to zig zag around leg, then groin pain. Jacinto now primarily groin. States unable to alternate LE's going up stairs, but can going down . States her groin seizes up when she goes from prolonged sitting to standing, then works itself out a little. Denies N/T, tingling. Prior Treatments and Tests No imaging. Treatment Goals Patient/Caregiver Goals walk level surfaces and stairs with alternating pattern without pain, be able to go from sitting to stnading without pain. PT-OP-C Subjective Start: 11/24/20 16:25 Freq: Status: Active Protocol: Document 12/24/20 11:56 [facility] (Rec: 12/24/20 12:01 [facility] [id number]) OP-PT Subjective Patient Comments Patient Comments Patient reports pain much better after last session, reports feeling better, walking better:It was worth it to go deep with that massage work you did. PT-OP-G Mobility & Gait Start: 11/24/20 16:25 Freq: Status: Active Protocol: Document 11/25/20 11:16 [facility] (Rec: 11/25/20 17:00 [facility] [id number]) OP Mobility Evaluation Bed Mobility Supine to and from Sit painful Transfers Sit to Stand painful, needs use of UE's OP Gait Assessment Gait Gait Assistance Required: Independent Assistive Devices Orthotic/Prosthetic Devices or Brace: No Gait Deviations General Gait Pattern Antalgic,Lateral Trunk Lean Factors Limiting Gait Function Factors Limiting Gait Function Pain Stair Climbing Evaluation Evaluation Level of Assist On Stairs Independent Devices Stair Climbing Assistive Devices Left Railing,Right Railing Comments Stair Climbing Comments step-to ascending, alternating descending both with bilateral UE support PT-OP-H Neuro Start: 11/24/20 16:25 Freq: Status: Active Protocol: Document 11/25/20 11:16 [facility] (Rec: 11/25/20 17:00 [facility] [id number]) Sensation Evaluation Gross Sensation Gross Sensation WNL Comments Summary Comments denies N/T PT-OP-J Posture/Palpation/Skin Start: 11/24/20 16:25 Freq: Status: Active Protocol: Document 11/25/20 11:16 [facility] (Rec: 11/25/20 17:00 [facility] [id number]) Posture Evaluation Position Standing L-Spine Posture Increased Lordosis Ankle/Foot Posture (L) Pronated,(R) Pronated Palpation Assessment Location psoas Palpation Location right Palpation Details nontender iliacus Palpation Location right Palpation Details nontender groin Palpation Location medial right Palpation Findings Tenderness PT-OP-K Range of Motion Start: 11/24/20 16:25 Freq: Status: Active Protocol: Document 11/25/20 11:16 [facility] (Rec: 11/25/20 17:00 [facility] [id number]) Hip Goniometric Range of Motion Hip right Hip ROM WFL No Flexion w/Knee Flexed 125 Straight Leg Raise 75 Extension 0 Abduction 35 Internal Rotation 40 External Rotation 80 Left Hip ROM WFL No Flexion w/Knee Flexed 125 Straight Leg Raise 80 Extension 0 Abduction 35 Internal Rotation 20 External Rotation 65 Hip ROM Limitations Hip ROM Limitations Soft Tissue Tightness,Pain Knee Goniometric Range of Motion Knee kianna Knee ROM WFL Yes PT-OP-L Special Tests Start: 11/24/20 16:25 Freq: Status: Active Protocol: Document 11/25/20 11:16 [facility] (Rec: 11/25/20 17:00 [facility] [id number]) Special Tests Hip Special Tests ingrid test Test Results negative kianna Anterior Labral Test Test Results negative kianna Scour Test Test Results negative kianna GRACE Test Results negative kianna PT-OP-M Strength Start: 11/24/20 16:25 Freq: Status: Active Protocol: Document 11/25/20 11:16 [facility] (Rec: 11/25/20 17:00 [facility] [id number]) Hip Strength Hip Manual Muscle Testing Right Flexion (L2) 4 Good Extension (S1) 3- Fair- Abduction 4 Good Adduction 4 Good External Rotation 4- Good- Internal Rotation 4 Good Comments pain with resisted flexion and extension Left Flexion (L2) 4 Good Extension (S1) 3- Fair- Abduction 4 Good Adduction 4 Good External Rotation 4- Good- Internal Rotation 4 Good Knee Strength Knee Manual Muscle Testing kianna Flexion (S2) 5 Normal Extension (L3) 5 Normal PT-OP-Q Treatments Start: 11/24/20 16:25 Freq: Status: Active Protocol: Document 12/24/20 11:56 [facility] (Rec: 12/24/20 12:01 [facility] [id number]) Gait Training Gait Activity forward Device Used none Treatment Focus symmetry of kianna LE's, gluteal activation, no hip drop Comments mirror for visual feedback. Manual Therapy Treatment Soft Tissue Mobilization 2 Body Location IT band Mobilization Type Instrument Assisted,Myofascial Release,Strumming,Sustained Pressure 1 Body Location adductor, gracilis, and sartorius tendons and musculature, iliopsoas, quad Mobilization Type Instrument Assisted,Myofascial Release,Sustained Pressure Intensity/Depth Deep Body Position Hooklying PT-OP-R Modalities Start: 11/24/20 16:25 Freq: Status: Active Protocol: Document 12/24/20 11:56 [facility] (Rec: 12/24/20 12:01 [facility] [id number]) Hot Pack/Cold Pack Treatment Hot Pack Location right groin Patient Position Hooklying Treatment Duration (minutes) 15 Patient Tolerance Good Ultrasound Therapy Treatment right medial groin Treatment Duration (minutes) 8 Patient Position Supine Coupling Medium Ultrasound Gel Applicator Size (cm2) 2 Frequency Setting (mHz) 3 Mode Setting Continuous Duty Cycle 100% Intensity Setting (w/cm2) 1.2 PT-OP-T Assessment and Plan Start: 11/24/20 16:25 Freq: Status: Active Protocol: Document 12/24/20 11:56 [facility] (Rec: 12/24/20 12:01 [facility] [id number]) Physical Therapy Assessment Goals Three Impairment Decreased activity tolerance: lower extremity functional scale 14% Short Term Goal (STG) Improve LEFS to at least 30% STG Duration 12/25/20 Spinner Fixer Goal (LTG) Improve LEFS to at least 60% as measure of improved activity tolerance LTG Duration Two Impairment antalgic gait, unable to alternate feet ascending stairs Short Term Goal (STG) Patient able to ambulate without a limp with least restrictive device STG Duration 12/25/20 Custodial Goal (LTG) Patient able to ambulate without a limp without a deviceand with alternating pattern on stairs LTG Duration 01/24/21 One Impairment Pain right groin 12/31 Short Term Goal (STG) Decrease pain to no greater than 3/10 STG Duration 12/25/20 Spinner Fixer Goal (LTG) Decrease pain to no greater than 1/10 LTG Duration 01/24/21 Physical Therapy Plan Frequency and Duration Frequency of Treatment 2x/Week Duration of Treatment 8 weeks Plan of Care Start Date 11/25/20 Plan of Care End Date 01/24/21 Therapeutic Interventions Therapeutic Interventions Gait Training,Home Exercise Program,Joint Mobilizations, Manual Therapy,Neuromuscular Re-education,Patient/Caregiver Education,Self-Care/Home Management,Soft Tissue Mobilization,Therapeutic Activities,Therapeutic Exercises Modalities Cold Pack/Ice Massage,Hot Packs,Infrared Therapy, Iontophoresis,Ultrasound Next Visit Focus/Plan Next Note Type Treatment Note Next Visit Plan Continue PT per POC, review HEP and progress as indicated.
--- NOTE | 2021-01-05 16:37 | PT.OTN ---
Current Diagnoses Strain of muscle, fascia and tendon of right hip, initial encounter (01/05/21) Physical Therapy Treatment Note PT-OP-A Visit Information Start: 11/24/20 16:25 Freq: Status: Active Protocol: Document 01/05/21 16:31 [facility] (Rec: 01/05/21 16:36 [facility] [id number]) Out-Patient Physical Therapy Visit Information Visit Information Visit Type Treatment Note Visit Start Time 13:45 Visit Stop Time 14:40 Total Visit Minutes 55 Visit Number 8 PT-OP-B Current Condition Start: 11/24/20 16:25 Freq: Status: Active Protocol: Document 11/25/20 11:16 [facility] (Rec: 11/25/20 11:49 [facility] [id number]) Current Condition History of Current Condition Onset Date May 2020 Current Complaints groin pain History of Current Condition Pain started 1 month after fall down 7 stairs, right leg got caught behind, had scrape and bone bruise lower right LE . Landed with left leg in front of her, right leg bent back behind and internally rotated. Started having ischial tuberosity pain 1 month after fall, then states pain began to zig zag around leg, then groin pain. Jacinto now primarily groin. States unable to alternate LE's going up stairs, but can going down . States her groin seizes up when she goes from prolonged sitting to standing, then works itself out a little. Denies N/T, tingling. Prior Treatments and Tests No imaging. Treatment Goals Patient/Caregiver Goals walk level surfaces and stairs with alternating pattern without pain, be able to go from sitting to stnading without pain. PT-OP-C Subjective Start: 11/24/20 16:25 Freq: Status: Active Protocol: Document 01/05/21 16:31 [facility] (Rec: 01/05/21 16:36 [facility] [id number]) OP-PT Subjective Patient Comments Patient Comments Was gone out of town for 1 week, very busy at conference, lots of sitting. Pain not better or worse. PT-OP-G Mobility & Gait Start: 11/24/20 16:25 Freq: Status: Active Protocol: Document 11/25/20 11:16 [facility] (Rec: 11/25/20 17:00 [facility] [id number]) OP Mobility Evaluation Bed Mobility Supine to and from Sit painful Transfers Sit to Stand painful, needs use of UE's OP Gait Assessment Gait Gait Assistance Required: Independent Assistive Devices Orthotic/Prosthetic Devices or Brace: No Gait Deviations General Gait Pattern Antalgic,Lateral Trunk Lean Factors Limiting Gait Function Factors Limiting Gait Function Pain Stair Climbing Evaluation Evaluation Level of Assist On Stairs Independent Devices Stair Climbing Assistive Devices Left Railing,Right Railing Comments Stair Climbing Comments step-to ascending, alternating descending both with bilateral UE support PT-OP-H Neuro Start: 11/24/20 16:25 Freq: Status: Active Protocol: Document 11/25/20 11:16 [facility] (Rec: 11/25/20 17:00 [facility] [id number]) Sensation Evaluation Gross Sensation Gross Sensation WNL Comments Summary Comments denies N/T PT-OP-J Posture/Palpation/Skin Start: 11/24/20 16:25 Freq: Status: Active Protocol: Document 11/25/20 11:16 [facility] (Rec: 11/25/20 17:00 [facility] [id number]) Posture Evaluation Position Standing L-Spine Posture Increased Lordosis Ankle/Foot Posture (L) Pronated,(R) Pronated Palpation Assessment Location psoas Palpation Location right Palpation Details nontender iliacus Palpation Location right Palpation Details nontender groin Palpation Location medial right Palpation Findings Tenderness PT-OP-K Range of Motion Start: 11/24/20 16:25 Freq: Status: Active Protocol: Document 11/25/20 11:16 [facility] (Rec: 11/25/20 17:00 [facility] [id number]) Hip Goniometric Range of Motion Hip right Hip ROM WFL No Flexion w/Knee Flexed 125 Straight Leg Raise 75 Extension 0 Abduction 35 Internal Rotation 40 External Rotation 80 Left Hip ROM WFL No Flexion w/Knee Flexed 125 Straight Leg Raise 80 Extension 0 Abduction 35 Internal Rotation 20 External Rotation 65 Hip ROM Limitations Hip ROM Limitations Soft Tissue Tightness,Pain Knee Goniometric Range of Motion Knee kianna Knee ROM WFL Yes PT-OP-L Special Tests Start: 11/24/20 16:25 Freq: Status: Active Protocol: Document 11/25/20 11:16 [facility] (Rec: 11/25/20 17:00 [facility] [id number]) Special Tests Hip Special Tests ingrid test Test Results negative kianna Anterior Labral Test Test Results negative kianna Scour Test Test Results negative kianna GRACE Test Results negative kianna PT-OP-M Strength Start: 11/24/20 16:25 Freq: Status: Active Protocol: Document 11/25/20 11:16 [facility] (Rec: 11/25/20 17:00 [facility] [id number]) Hip Strength Hip Manual Muscle Testing Right Flexion (L2) 4 Good Extension (S1) 3- Fair- Abduction 4 Good Adduction 4 Good External Rotation 4- Good- Internal Rotation 4 Good Comments pain with resisted flexion and extension Left Flexion (L2) 4 Good Extension (S1) 3- Fair- Abduction 4 Good Adduction 4 Good External Rotation 4- Good- Internal Rotation 4 Good Knee Strength Knee Manual Muscle Testing kianna Flexion (S2) 5 Normal Extension (L3) 5 Normal PT-OP-Q Treatments Start: 11/24/20 16:25 Freq: Status: Active Protocol: Document 01/05/21 16:31 [facility] (Rec: 01/05/21 16:36 [facility] [id number]) Cardio Equipment Recumbent Stepper (Sci-Fit) Duration (Minutes) 4 Resistance 1 Seat Position 10 Other cues for neutral LE alignment Therapeutic Exercises Sidelying Exercises hip add Reps/Minutes 10x1 1 Sidelying Exercise Name reverse clamshell Side bilateral Reps/Minutes 10x1 Gait Training Gait Activity forward Device Used none Treatment Focus symmetry of kianna LE's, gluteal activation, no hip drop Comments mirror for visual feedback. Manual Therapy Treatment Soft Tissue Mobilization 2 Body Location IT band Mobilization Type Instrument Assisted,Myofascial Release,Strumming,Sustained Pressure 1 Body Location adductor, gracilis, and sartorius tendons and musculature, iliopsoas, quad Mobilization Type Instrument Assisted,Myofascial Release,Sustained Pressure Intensity/Depth Deep Body Position Hooklying PT-OP-R Modalities Start: 11/24/20 16:25 Freq: Status: Active Protocol: Document 01/05/21 16:31 [facility] (Rec: 01/05/21 16:36 [facility] [id number]) Hot Pack/Cold Pack Treatment Hot Pack Location right groin Patient Position Hooklying Treatment Duration (minutes) 15 Patient Tolerance Good Ultrasound Therapy Treatment right medial groin Treatment Duration (minutes) 8 Patient Position Supine Coupling Medium Ultrasound Gel Applicator Size (cm2) 2 Frequency Setting (mHz) 3 Mode Setting Continuous Duty Cycle 100% Intensity Setting (w/cm2) 1.2 PT-OP-T Assessment and Plan Start: 11/24/20 16:25 Freq: Status: Active Protocol: Document 01/05/21 16:31 [facility] (Rec: 01/05/21 16:36 [facility] [id number]) Physical Therapy Assessment Goals Three Impairment Decreased activity tolerance: lower extremity functional scale 14% Short Term Goal (STG) Improve LEFS to at least 30% STG Duration 12/25/20 Electric Sign Assembler Goal (LTG) Improve LEFS to at least 60% as measure of improved activity tolerance LTG Duration Two Impairment antalgic gait, unable to alternate feet ascending stairs Short Term Goal (STG) Patient able to ambulate without a limp with least restrictive device STG Duration 12/25/20 Shelter Goal (LTG) Patient able to ambulate without a limp without a deviceand with alternating pattern on stairs LTG Duration 01/24/21 One Impairment Pain right groin 12/31 Short Term Goal (STG) Decrease pain to no greater than 3/10 STG Duration 12/25/20 Shelter Goal (LTG) Decrease pain to no greater than 1/10 LTG Duration 01/24/21 Assessment Summary Assessment Patient ambulating with more gait compensations today including increased ER right LE, increased lateral sway. Added sidelying reverse clamshell and hip adduction strengthening, recumbent elliptical with cues for neutral LE alignment Physical Therapy Plan Frequency and Duration Frequency of Treatment 2x/Week Duration of Treatment 8 weeks Plan of Care Start Date 11/25/20 Plan of Care End Date 01/24/21 Therapeutic Interventions Therapeutic Interventions Gait Training,Home Exercise Program,Joint Mobilizations, Manual Therapy,Neuromuscular Re-education,Patient/Caregiver Education,Self-Care/Home Management,Soft Tissue Mobilization,Therapeutic Activities,Therapeutic Exercises Modalities Cold Pack/Ice Massage,Hot Packs,Infrared Therapy, Iontophoresis,Ultrasound Next Visit Focus/Plan Next Note Type Treatment Note Next Visit Plan Continue therapeutic exercise progression, gait training, patient education, manual therapy and modalities as needed for pain.
--- NOTE | 2021-01-07 16:29 | PT.OTN ---
Current Diagnoses Strain of muscle, fascia and tendon of right hip, initial encounter (01/07/21) Physical Therapy Treatment Note PT-OP-A Visit Information Start: 11/24/20 16:25 Freq: Status: Active Protocol: Document 01/07/21 08:57 [facility] (Rec: 01/07/21 09:43 [facility] [id number]) Out-Patient Physical Therapy Visit Information Visit Information Visit Type Treatment Note Visit Start Time 09:00 Visit Stop Time 09:56 Total Visit Minutes 56 Visit Number 9 PT-OP-B Current Condition Start: 11/24/20 16:25 Freq: Status: Active Protocol: Document 01/07/21 08:57 [facility] (Rec: 01/07/21 09:43 [facility] [id number]) Current Condition History of Current Condition Onset Date May 2020 Current Complaints groin pain History of Current Condition Pain started 1 month after fall down 7 stairs, right leg got caught behind, had scrape and bone bruise lower right LE . Landed with left leg in front of her, right leg bent back behind and internally rotated. Started having ischial tuberosity pain 1 month after fall, then states pain began to zig zag around leg, then groin pain. Jacinto now primarily groin. States unable to alternate LE's going up stairs, but can going down . States her groin seizes up when she goes from prolonged sitting to standing, then works itself out a little. Denies N/T, tingling. Prior Treatments and Tests No imaging. PT-OP-C Subjective Start: 11/24/20 16:25 Freq: Status: Active Protocol: Document 01/07/21 08:57 [facility] (Rec: 01/07/21 09:43 [facility] [id number]) OP-PT Subjective Patient Comments Patient Comments No new c/o , having Magna Wave treatment later today. Having some back pain, pain in groin hurts most when moving from sit to stand PT-OP-G Mobility & Gait Start: 11/24/20 16:25 Freq: Status: Active Protocol: Document 11/25/20 11:16 [facility] (Rec: 11/25/20 17:00 [facility] [id number]) OP Mobility Evaluation Bed Mobility Supine to and from Sit painful Transfers Sit to Stand painful, needs use of UE's OP Gait Assessment Gait Gait Assistance Required: Independent Assistive Devices Orthotic/Prosthetic Devices or Brace: No Gait Deviations General Gait Pattern Antalgic,Lateral Trunk Lean Factors Limiting Gait Function Factors Limiting Gait Function Pain Stair Climbing Evaluation Evaluation Level of Assist On Stairs Independent Devices Stair Climbing Assistive Devices Left Railing,Right Railing Comments Stair Climbing Comments step-to ascending, alternating descending both with bilateral UE support PT-OP-H Neuro Start: 11/24/20 16:25 Freq: Status: Active Protocol: Document 11/25/20 11:16 [facility] (Rec: 11/25/20 17:00 [facility] [id number]) Sensation Evaluation Gross Sensation Gross Sensation WNL Comments Summary Comments denies N/T PT-OP-J Posture/Palpation/Skin Start: 11/24/20 16:25 Freq: Status: Active Protocol: Document 11/25/20 11:16 [facility] (Rec: 11/25/20 17:00 [facility] [id number]) Posture Evaluation Position Standing L-Spine Posture Increased Lordosis Ankle/Foot Posture (L) Pronated,(R) Pronated Palpation Assessment Location psoas Palpation Location right Palpation Details nontender iliacus Palpation Location right Palpation Details nontender groin Palpation Location medial right Palpation Findings Tenderness PT-OP-K Range of Motion Start: 11/24/20 16:25 Freq: Status: Active Protocol: Document 11/25/20 11:16 [facility] (Rec: 11/25/20 17:00 [facility] [id number]) Hip Goniometric Range of Motion Hip right Hip ROM WFL No Flexion w/Knee Flexed 125 Straight Leg Raise 75 Extension 0 Abduction 35 Internal Rotation 40 External Rotation 80 Left Hip ROM WFL No Flexion w/Knee Flexed 125 Straight Leg Raise 80 Extension 0 Abduction 35 Internal Rotation 20 External Rotation 65 Hip ROM Limitations Hip ROM Limitations Soft Tissue Tightness,Pain Knee Goniometric Range of Motion Knee kianna Knee ROM WFL Yes PT-OP-L Special Tests Start: 11/24/20 16:25 Freq: Status: Active Protocol: Document 11/25/20 11:16 [facility] (Rec: 11/25/20 17:00 [facility] [id number]) Special Tests Hip Special Tests ingrid test Test Results negative kianna Anterior Labral Test Test Results negative kianna Scour Test Test Results negative kianna GRACE Test Results negative kianna PT-OP-M Strength Start: 11/24/20 16:25 Freq: Status: Active Protocol: Document 11/25/20 11:16 [facility] (Rec: 11/25/20 17:00 [facility] [id number]) Hip Strength Hip Manual Muscle Testing Right Flexion (L2) 4 Good Extension (S1) 3- Fair- Abduction 4 Good Adduction 4 Good External Rotation 4- Good- Internal Rotation 4 Good Comments pain with resisted flexion and extension Left Flexion (L2) 4 Good Extension (S1) 3- Fair- Abduction 4 Good Adduction 4 Good External Rotation 4- Good- Internal Rotation 4 Good Knee Strength Knee Manual Muscle Testing kianna Flexion (S2) 5 Normal Extension (L3) 5 Normal PT-OP-Q Treatments Start: 11/24/20 16:25 Freq: Status: Active Protocol: Document 01/07/21 08:57 [facility] (Rec: 01/07/21 09:43 [facility] [id number]) Cardio Equipment Recumbent Stepper (Sci-Fit) Duration (Minutes) 6 Resistance 2 Seat Position 10 Other cues for neutral LE alignment Therapeutic Exercises Sidelying Exercises 1 Sidelying Exercise Name reverse clamshell Side bilateral Reps/Minutes 10x1 Gait Training Gait Activity forward Device Used none Treatment Focus symmetry of kianna LE's, gluteal activation, no hip drop Comments mirror for visual feedback. Manual Therapy Treatment Soft Tissue Mobilization 2 Body Location IT band Mobilization Type Instrument Assisted Intensity/Depth Moderate Comments rolling pin 1 Body Location adductor, gracilis, and sartorius tendons and musculature, iliopsoas, quad Mobilization Type Instrument Assisted Intensity/Depth Deep Body Position Hooklying Comments rolling pin Joint Mobilizations 1 Joint right hip posterior and inferior glides Grade II Body Position Hooklying Reps/Duration 5 min Comments denied pain PT-OP-R Modalities Start: 11/24/20 16:25 Freq: Status: Active Protocol: Document 01/07/21 08:57 [facility] (Rec: 01/07/21 09:43 [facility] [id number]) Hot Pack/Cold Pack Treatment Hot Pack Location right groin Patient Position Hooklying Treatment Duration (minutes) 15 Patient Tolerance Good Ultrasound Therapy Treatment right medial groin Treatment Duration (minutes) 8 Patient Position Supine Coupling Medium Ultrasound Gel Applicator Size (cm2) 2 Frequency Setting (mHz) 3 Mode Setting Continuous Duty Cycle 100% Intensity Setting (w/cm2) 1.2 PT-OP-T Assessment and Plan Start: 11/24/20 16:25 Freq: Status: Active Protocol: Document 01/07/21 08:57 [facility] (Rec: 01/07/21 09:43 [facility] [id number]) Physical Therapy Assessment Goals Three Impairment Decreased activity tolerance: lower extremity functional scale 14% Short Term Goal (STG) Improve LEFS to at least 30% STG Duration 12/25/20 [employer]ist Goal (LTG) Improve LEFS to at least 60% as measure of improved activity tolerance LTG Duration Two Impairment antalgic gait, unable to alternate feet ascending stairs Short Term Goal (STG) Patient able to ambulate without a limp with least restrictive device STG Duration 12/25/20 Care Home Goal (LTG) Patient able to ambulate without a limp without a deviceand with alternating pattern on stairs LTG Duration 01/24/21 One Impairment Pain right groin 12/31 Short Term Goal (STG) Decrease pain to no greater than 3/10 STG Duration 12/25/20 [employer] Specialist Goal (LTG) Decrease pain to no greater than 1/10 LTG Duration 01/24/21 Assessment Summary Assessment improving pain, most pain with sit to stand, though improved after warming up. Patient able to improve gait with visual feedback and focus. Patient instructed in arthrokinematics of hip with trial posterior glide joint mob to improve positioning and movement of head of femur in joint, patient denied pain. Improved pain after treatment. Physical Therapy Plan Frequency and Duration Frequency of Treatment 2x/Week Duration of Treatment 8 weeks Plan of Care Start Date 11/25/20 Plan of Care End Date 01/24/21 Therapeutic Interventions Therapeutic Interventions Gait Training,Home Exercise Program,Joint Mobilizations, Manual Therapy,Neuromuscular Re-education,Patient/Caregiver Education,Self-Care/Home Management,Soft Tissue Mobilization,Therapeutic Activities,Therapeutic Exercises Modalities Cold Pack/Ice Massage,Hot Packs,Infrared Therapy, Iontophoresis,Ultrasound Next Visit Focus/Plan Next Note Type Treatment Note Next Visit Plan Continue with gait training, manual treatment, modalities. Progress ther ex as tolerated for strengthening, gait correction, pain management. Assess response to joint mobilization.
--- NOTE | 2021-01-11 11:05 | PT.OTN ---
Current Diagnoses Strain of muscle, fascia and tendon of right hip, initial encounter (01/11/21) Physical Therapy Treatment Note PT-OP-A Visit Information Start: 11/24/20 16:25 Freq: Status: Active Protocol: Document 01/11/21 09:04 [facility] (Rec: 01/11/21 09:22 [facility] [id number]) Out-Patient Physical Therapy Visit Information Visit Information Visit Type Treatment Note Visit Start Time 09:02 Visit Stop Time 10:00 Total Visit Minutes 58 Visit Number 10 PT-OP-B Current Condition Start: 11/24/20 16:25 Freq: Status: Active Protocol: Document 01/11/21 09:04 [facility] (Rec: 01/11/21 09:22 [facility] [id number]) Current Condition History of Current Condition Onset Date May 2020 Current Complaints groin pain History of Current Condition Pain started 1 month after fall down 7 stairs, right leg got caught behind, had scrape and bone bruise lower right LE . Landed with left leg in front of her, right leg bent back behind and internally rotated. Started having ischial tuberosity pain 1 month after fall, then states pain began to zig zag around leg, then groin pain. Jacinto now primarily groin. States unable to alternate LE's going up stairs, but can going down . States her groin seizes up when she goes from prolonged sitting to standing, then works itself out a little. Denies N/T, tingling. Prior Treatments and Tests No imaging. PT-OP-C Subjective Start: 11/24/20 16:25 Freq: Status: Active Protocol: Document 01/11/21 09:04 [facility] (Rec: 01/11/21 09:22 [facility] [id number]) OP-PT Subjective Patient Comments Patient Comments Some better. Continues to work on her gait mechanics. PT-OP-G Mobility & Gait Start: 11/24/20 16:25 Freq: Status: Active Protocol: Document 11/25/20 11:16 [facility] (Rec: 11/25/20 17:00 [facility] [id number]) OP Mobility Evaluation Bed Mobility Supine to and from Sit painful Transfers Sit to Stand painful, needs use of UE's OP Gait Assessment Gait Gait Assistance Required: Independent Assistive Devices Orthotic/Prosthetic Devices or Brace: No Gait Deviations General Gait Pattern Antalgic,Lateral Trunk Lean Factors Limiting Gait Function Factors Limiting Gait Function Pain Stair Climbing Evaluation Evaluation Level of Assist On Stairs Independent Devices Stair Climbing Assistive Devices Left Railing,Right Railing Comments Stair Climbing Comments step-to ascending, alternating descending both with bilateral UE support PT-OP-H Neuro Start: 11/24/20 16:25 Freq: Status: Active Protocol: Document 11/25/20 11:16 [facility] (Rec: 11/25/20 17:00 [facility] [id number]) Sensation Evaluation Gross Sensation Gross Sensation WNL Comments Summary Comments denies N/T PT-OP-J Posture/Palpation/Skin Start: 11/24/20 16:25 Freq: Status: Active Protocol: Document 11/25/20 11:16 [facility] (Rec: 11/25/20 17:00 [facility] [id number]) Posture Evaluation Position Standing L-Spine Posture Increased Lordosis Ankle/Foot Posture (L) Pronated,(R) Pronated Palpation Assessment Location psoas Palpation Location right Palpation Details nontender iliacus Palpation Location right Palpation Details nontender groin Palpation Location medial right Palpation Findings Tenderness PT-OP-K Range of Motion Start: 11/24/20 16:25 Freq: Status: Active Protocol: Document 11/25/20 11:16 [facility] (Rec: 11/25/20 17:00 [facility] [id number]) Hip Goniometric Range of Motion Hip right Hip ROM WFL No Flexion w/Knee Flexed 125 Straight Leg Raise 75 Extension 0 Abduction 35 Internal Rotation 40 External Rotation 80 Left Hip ROM WFL No Flexion w/Knee Flexed 125 Straight Leg Raise 80 Extension 0 Abduction 35 Internal Rotation 20 External Rotation 65 Hip ROM Limitations Hip ROM Limitations Soft Tissue Tightness,Pain Knee Goniometric Range of Motion Knee kianna Knee ROM WFL Yes PT-OP-L Special Tests Start: 11/24/20 16:25 Freq: Status: Active Protocol: Document 11/25/20 11:16 [facility] (Rec: 11/25/20 17:00 [facility] [id number]) Special Tests Hip Special Tests ingrid test Test Results negative kianna Anterior Labral Test Test Results negative kianna Scour Test Test Results negative kianna GRACE Test Results negative kianna PT-OP-M Strength Start: 11/24/20 16:25 Freq: Status: Active Protocol: Document 11/25/20 11:16 [facility] (Rec: 11/25/20 17:00 [facility] [id number]) Hip Strength Hip Manual Muscle Testing Right Flexion (L2) 4 Good Extension (S1) 3- Fair- Abduction 4 Good Adduction 4 Good External Rotation 4- Good- Internal Rotation 4 Good Comments pain with resisted flexion and extension Left Flexion (L2) 4 Good Extension (S1) 3- Fair- Abduction 4 Good Adduction 4 Good External Rotation 4- Good- Internal Rotation 4 Good Knee Strength Knee Manual Muscle Testing kianna Flexion (S2) 5 Normal Extension (L3) 5 Normal PT-OP-Q Treatments Start: 11/24/20 16:25 Freq: Status: Active Protocol: Document 01/11/21 09:04 [facility] (Rec: 01/11/21 09:22 [facility] [id number]) Cardio Equipment Recumbent Stepper (Sci-Fit) Duration (Minutes) 6 Resistance 3 Seat Position 10 Other cues for neutral LE alignment Gym Equipment Sport Cord fwd, side Cord/Resistance green Reps/Duration 7x fwd, 3 reps sideways each side Comments mirror for visual feedback forward. Manual Therapy Treatment Soft Tissue Mobilization 2 Body Location IT band Mobilization Type Instrument Assisted Intensity/Depth Moderate Comments rolling pin 1 Body Location adductor, gracilis, and sartorius tendons and musculature, iliopsoas, quad Mobilization Type Instrument Assisted Intensity/Depth Deep Body Position Hooklying Comments rolling pin PT-OP-R Modalities Start: 11/24/20 16:25 Freq: Status: Active Protocol: Document 01/11/21 09:04 [facility] (Rec: 01/11/21 09:22 [facility] [id number]) Ultrasound Therapy Treatment right medial groin Treatment Duration (minutes) 8 Patient Position Supine Coupling Medium Ultrasound Gel Applicator Size (cm2) 2 Frequency Setting (mHz) 3 Mode Setting Continuous Duty Cycle 100% Intensity Setting (w/cm2) 1.2 PT-OP-T Assessment and Plan Start: 11/24/20 16:25 Freq: Status: Active Protocol: Document 01/11/21 09:04 [facility] (Rec: 01/11/21 09:22 [facility] [id number]) Physical Therapy Assessment Goals Three Impairment Decreased activity tolerance: lower extremity functional scale 14% Short Term Goal (STG) Improve LEFS to at least 30% 01/11/21: Improved to 56% STG Duration goal met Long-Term Goal (LTG) Improve LEFS to at least 60% as measure of improved activity tolerance LTG Duration Two Impairment antalgic gait, unable to alternate feet ascending stairs Short Term Goal (STG) Patient able to ambulate without a limp with least restrictive device 01/11/21: patient ambulating with minimal limp with no device, mostly met. STG Duration 12/25/20 Deputy Assessor Goal (LTG) Patient able to ambulate without a limp without a device and with alternating pattern on stairs LTG Duration 01/24/21 One Impairment Pain right groin 12/31 Short Term Goal (STG) Decrease pain to no greater than 3/10 01/11/21: some goal progress, pain 1-2 at rest now, but still as high as 6/10 when gets up after sitting STG Duration 12/25/20 Long-Term Goal (LTG) Decrease pain to no greater than 1/10 LTG Duration 01/24/21 Progress Towards Goals Progress Towards Goals Progressing Toward Goals Assessment Summary Assessment Patient making gains in decreasing pain, improving function. Pain can still be as high as 6/10 when stands up from sitting. Physical Therapy Plan Frequency and Duration Frequency of Treatment 2x/Week Duration of Treatment 8 weeks Plan of Care Start Date 11/25/20 Plan of Care End Date 01/24/21 Therapeutic Interventions Therapeutic Interventions Gait Training,Home Exercise Program,Joint Mobilizations, Manual Therapy,Neuromuscular Re-education,Patient/Caregiver Education,Self-Care/Home Management,Soft Tissue Mobilization,Therapeutic Activities,Therapeutic Exercises Modalities Cold Pack/Ice Massage,Hot Packs,Infrared Therapy, Iontophoresis,Ultrasound Next Visit Focus/Plan Next Note Type Treatment Note Next Visit Plan Continue with gait training, manual treatment, modalities. Progress ther ex as tolerated for strengthening, gait correction, pain management. Further joint mobilization.
--- NOTE | 2021-01-14 08:00 | PT.OTN ---
Current Diagnoses Strain of muscle, fascia and tendon of right hip, initial encounter (01/14/21) Physical Therapy Treatment Note PT-OP-A Visit Information Start: 11/24/20 16:25 Freq: Status: Active Protocol: Document 01/14/21 09:00 [facility] (Rec: 01/14/21 09:48 [facility] [id number]) Out-Patient Physical Therapy Visit Information Visit Information Visit Type Treatment Note Visit Start Time 09:00 Visit Stop Time 10:00 Total Visit Minutes 58 Visit Number 10 PT-OP-B Current Condition Start: 11/24/20 16:25 Freq: Status: Active Protocol: Document 01/14/21 09:00 [facility] (Rec: 01/14/21 09:48 [facility] [id number]) Current Condition History of Current Condition Onset Date May 2020 Current Complaints groin pain History of Current Condition Pain started 1 month after fall down 7 stairs, right leg got caught behind, had scrape and bone bruise lower right LE . Landed with left leg in front of her, right leg bent back behind and internally rotated. Started having ischial tuberosity pain 1 month after fall, then states pain began to zig zag around leg, then groin pain. Jacinto now primarily groin. States unable to alternate LE's going up stairs, but can going down . States her groin seizes up when she goes from prolonged sitting to standing, then works itself out a little. Denies N/T, tingling. Prior Treatments and Tests No imaging. PT-OP-C Subjective Start: 11/24/20 16:25 Freq: Status: Active Protocol: Document 01/14/21 09:00 [facility] (Rec: 01/14/21 09:48 [facility] [id number]) OP-PT Subjective Patient Comments Patient Comments Saw chiropractor yesterday; worked on neck mid and lower back, adjusted pelvis; Dr. Thurman Was very pleased, feels better. Going back in 1 month . PT-OP-G Mobility & Gait Start: 11/24/20 16:25 Freq: Status: Active Protocol: Document 11/25/20 11:16 [facility] (Rec: 11/25/20 17:00 [facility] [id number]) OP Mobility Evaluation Bed Mobility Supine to and from Sit painful Transfers Sit to Stand painful, needs use of UE's OP Gait Assessment Gait Gait Assistance Required: Independent Assistive Devices Orthotic/Prosthetic Devices or Brace: No Gait Deviations General Gait Pattern Antalgic,Lateral Trunk Lean Factors Limiting Gait Function Factors Limiting Gait Function Pain Stair Climbing Evaluation Evaluation Level of Assist On Stairs Independent Devices Stair Climbing Assistive Devices Left Railing,Right Railing Comments Stair Climbing Comments step-to ascending, alternating descending both with bilateral UE support PT-OP-H Neuro Start: 11/24/20 16:25 Freq: Status: Active Protocol: Document 11/25/20 11:16 [facility] (Rec: 11/25/20 17:00 [facility] [id number]) Sensation Evaluation Gross Sensation Gross Sensation WNL Comments Summary Comments denies N/T PT-OP-J Posture/Palpation/Skin Start: 11/24/20 16:25 Freq: Status: Active Protocol: Document 11/25/20 11:16 [facility] (Rec: 11/25/20 17:00 [facility] [id number]) Posture Evaluation Position Standing L-Spine Posture Increased Lordosis Ankle/Foot Posture (L) Pronated,(R) Pronated Palpation Assessment Location psoas Palpation Location right Palpation Details nontender iliacus Palpation Location right Palpation Details nontender groin Palpation Location medial right Palpation Findings Tenderness PT-OP-K Range of Motion Start: 11/24/20 16:25 Freq: Status: Active Protocol: Document 11/25/20 11:16 [facility] (Rec: 11/25/20 17:00 [facility] [id number]) Hip Goniometric Range of Motion Hip right Hip ROM WFL No Flexion w/Knee Flexed 125 Straight Leg Raise 75 Extension 0 Abduction 35 Internal Rotation 40 External Rotation 80 Left Hip ROM WFL No Flexion w/Knee Flexed 125 Straight Leg Raise 80 Extension 0 Abduction 35 Internal Rotation 20 External Rotation 65 Hip ROM Limitations Hip ROM Limitations Soft Tissue Tightness,Pain Knee Goniometric Range of Motion Knee kianna Knee ROM WFL Yes PT-OP-L Special Tests Start: 11/24/20 16:25 Freq: Status: Active Protocol: Document 11/25/20 11:16 [facility] (Rec: 11/25/20 17:00 [facility] [id number]) Special Tests Hip Special Tests ingrid test Test Results negative kianna Anterior Labral Test Test Results negative kianna Scour Test Test Results negative kianna GRACE Test Results negative kianna PT-OP-M Strength Start: 05/04/21 16:25 Freq: Status: Active Protocol: Document 11/25/20 11:16 [facility] (Rec: 11/25/20 17:00 [facility] [id number]) Hip Strength Hip Manual Muscle Testing Right Flexion (L2) 4 Good Extension (S1) 3- Fair- Abduction 4 Good Adduction 4 Good External Rotation 4- Good- Internal Rotation 4 Good Comments pain with resisted flexion and extension Left Flexion (L2) 4 Good Extension (S1) 3- Fair- Abduction 4 Good Adduction 4 Good External Rotation 4- Good- Internal Rotation 4 Good Knee Strength Knee Manual Muscle Testing kianna Flexion (S2) 5 Normal Extension (L3) 5 Normal PT-OP-Q Treatments Start: 11/24/20 16:25 Freq: Status: Active Protocol: Document 01/14/21 09:00 [facility] (Rec: 01/14/21 09:48 [facility] [id number]) Cardio Equipment Recumbent Stepper (Sci-Fit) Duration (Minutes) 8 Resistance 3 Seat Position 10 Other cues for neutral LE alignment Gym Equipment Shuttle Recovery Bilateral Squats Details bilateral squats Resistance 50 lbs Shuttle Recovery Platform Stable Reps/Time 2 x 10 Sport Cord fwd, side Cord/Resistance green Reps/Duration 7x fwd, 3 reps sideways each side Comments mirror for visual feedback forward. Manual Therapy Treatment Soft Tissue Mobilization 2 Body Location IT band Mobilization Type Instrument Assisted Intensity/Depth Moderate Comments rolling pin 1 Body Location adductor, gracilis, and sartorius tendons and musculature, iliopsoas, quad Mobilization Type Instrument Assisted Intensity/Depth Deep Body Position Hooklying Comments rolling pin PT-OP-R Modalities Start: 11/24/20 16:25 Freq: Status: Active Protocol: Document 01/14/21 09:00 [facility] (Rec: 01/14/21 09:48 [facility] [id number]) Hot Pack/Cold Pack Treatment Hot Pack Location right groin Patient Position Hooklying Treatment Duration (minutes) 15 Patient Tolerance Good Ultrasound Therapy Treatment right medial groin Treatment Duration (minutes) 8 Patient Position Supine Coupling Medium Ultrasound Gel Applicator Size (cm2) 2 Frequency Setting (mHz) 3 Mode Setting Continuous Duty Cycle 100% Intensity Setting (w/cm2) 1.2 PT-OP-T Assessment and Plan Start: 11/24/20 16:25 Freq: Status: Active Protocol: Document 01/14/21 09:00 [facility] (Rec: 01/14/21 09:48 [facility] [id number]) Physical Therapy Assessment Goals Three Impairment Decreased activity tolerance: lower extremity functional scale 14% Short Term Goal (STG) Improve LEFS to at least 30% 01/11/21: Improved to 56% STG Duration goal met Nursing Home Goal (LTG) Improve LEFS to at least 60% as measure of improved activity tolerance LTG Duration Two Impairment antalgic gait, unable to alternate feet ascending stairs Short Term Goal (STG) Patient able to ambulate without a limp with least restrictive device 01/11/21: patient ambulating with minimal limp with no device, mostly met. STG Duration 12/25/20 Anatomy Professor Goal (LTG) Patient able to ambulate without a limp without a device and with alternating pattern on stairs LTG Duration 01/24/21 One Impairment Pain right groin 12/31 Short Term Goal (STG) Decrease pain to no greater than 3/10 01/11/21: some goal progress, pain 1-2 at rest now, but still as high as 6/10 when gets up after sitting STG Duration 12/25/20 Nursing Home Goal (LTG) Decrease pain to no greater than 1/10 LTG Duration 01/24/21 Progress Towards Goals Progress Towards Goals Progressing Toward Goals Assessment Summary Assessment Improved gait today with patient slowing down and focusing on alignment and correct muscle activation. Physical Therapy Plan Frequency and Duration Frequency of Treatment 2x/Week Duration of Treatment 8 weeks Plan of Care Start Date 11/25/20 Plan of Care End Date 01/24/21 Therapeutic Interventions Therapeutic Interventions Gait Training,Home Exercise Program,Joint Mobilizations, Manual Therapy,Neuromuscular Re-education,Patient/Caregiver Education,Self-Care/Home Management,Soft Tissue Mobilization,Therapeutic Activities,Therapeutic Exercises Modalities Cold Pack/Ice Massage,Hot Packs,Infrared Therapy, Iontophoresis,Ultrasound Next Visit Focus/Plan Next Note Type Treatment Note Next Visit Plan Continue progressive ther ex for strengthening and stabilization.
--- NOTE | 2021-01-18 12:04 | PT.OTN ---
Current Diagnoses Strain of muscle, fascia and tendon of right hip, initial encounter (01/18/21) Physical Therapy Treatment Note PT-OP-A Visit Information Start: 11/24/20 16:25 Freq: Status: Active Protocol: Document 01/18/21 09:10 [facility] (Rec: 01/18/21 09:29 [facility] [id number]) Out-Patient Physical Therapy Visit Information Visit Information Visit Type Treatment Note Visit Start Time 09:00 Visit Stop Time 10:00 Total Visit Minutes 58 Visit Number 12 PT-OP-B Current Condition Start: 11/24/20 16:25 Freq: Status: Active Protocol: Document 01/18/21 09:10 [facility] (Rec: 01/18/21 09:29 [facility] [id number]) Current Condition History of Current Condition Onset Date May 2020 Current Complaints groin pain History of Current Condition Pain started 1 month after fall down 7 stairs, right leg got caught behind, had scrape and bone bruise lower right LE . Landed with left leg in front of her, right leg bent back behind and internally rotated. Started having ischial tuberosity pain 1 month after fall, then states pain began to zig zag around leg, then groin pain. Jacinto now primarily groin. States unable to alternate LE's going up stairs, but can going down . States her groin seizes up when she goes from prolonged sitting to standing, then works itself out a little. Denies N/T, tingling. Prior Treatments and Tests No imaging. PT-OP-C Subjective Start: 11/24/20 16:25 Freq: Status: Active Protocol: Document 01/14/21 09:00 [facility] (Rec: 01/14/21 09:48 [facility] [id number]) OP-PT Subjective Patient Comments Patient Comments Saw chiropractor yesterday; worked on neck mid and lower back, adjusted pelvis; Dr. Thurman Was very pleased, feels better. Going back in 1 month . PT-OP-G Mobility & Gait Start: 11/24/20 16:25 Freq: Status: Active Protocol: Document 11/25/20 11:16 [facility] (Rec: 11/25/20 17:00 [facility] [id number]) OP Mobility Evaluation Bed Mobility Supine to and from Sit painful Transfers Sit to Stand painful, needs use of UE's OP Gait Assessment Gait Gait Assistance Required: Independent Assistive Devices Orthotic/Prosthetic Devices or Brace: No Gait Deviations General Gait Pattern Antalgic,Lateral Trunk Lean Factors Limiting Gait Function Factors Limiting Gait Function Pain Stair Climbing Evaluation Evaluation Level of Assist On Stairs Independent Devices Stair Climbing Assistive Devices Left Railing,Right Railing Comments Stair Climbing Comments step-to ascending, alternating descending both with bilateral UE support PT-OP-H Neuro Start: 11/24/20 16:25 Freq: Status: Active Protocol: Document 11/25/20 11:16 [facility] (Rec: 11/25/20 17:00 [facility] [id number]) Sensation Evaluation Gross Sensation Gross Sensation WNL Comments Summary Comments denies N/T PT-OP-J Posture/Palpation/Skin Start: 11/24/20 16:25 Freq: Status: Active Protocol: Document 11/25/20 11:16 [facility] (Rec: 11/25/20 17:00 [facility] [id number]) Posture Evaluation Position Standing L-Spine Posture Increased Lordosis Ankle/Foot Posture (L) Pronated,(R) Pronated Palpation Assessment Location psoas Palpation Location right Palpation Details nontender iliacus Palpation Location right Palpation Details nontender groin Palpation Location medial right Palpation Findings Tenderness PT-OP-K Range of Motion Start: 11/24/20 16:25 Freq: Status: Active Protocol: Document 11/25/20 11:16 [facility] (Rec: 11/25/20 17:00 [facility] [id number]) Hip Goniometric Range of Motion Hip right Hip ROM WFL No Flexion w/Knee Flexed 125 Straight Leg Raise 75 Extension 0 Abduction 35 Internal Rotation 40 External Rotation 80 Left Hip ROM WFL No Flexion w/Knee Flexed 125 Straight Leg Raise 80 Extension 0 Abduction 35 Internal Rotation 20 External Rotation 65 Hip ROM Limitations Hip ROM Limitations Soft Tissue Tightness,Pain Knee Goniometric Range of Motion Knee kianna Knee ROM WFL Yes PT-OP-L Special Tests Start: 11/24/20 16:25 Freq: Status: Active Protocol: Document 11/25/20 11:16 [facility] (Rec: 11/25/20 17:00 [facility] [id number]) Special Tests Hip Special Tests ingrid test Test Results negative kianna Anterior Labral Test Test Results negative kianna Scour Test Test Results negative kianna GRACE Test Results negative kianna PT-OP-M Strength Start: 05/04/21 16:25 Freq: Status: Active Protocol: Document 11/25/20 11:16 [facility] (Rec: 11/25/20 17:00 [facility] [id number]) Hip Strength Hip Manual Muscle Testing Right Flexion (L2) 4 Good Extension (S1) 3- Fair- Abduction 4 Good Adduction 4 Good External Rotation 4- Good- Internal Rotation 4 Good Comments pain with resisted flexion and extension Left Flexion (L2) 4 Good Extension (S1) 3- Fair- Abduction 4 Good Adduction 4 Good External Rotation 4- Good- Internal Rotation 4 Good Knee Strength Knee Manual Muscle Testing kianna Flexion (S2) 5 Normal Extension (L3) 5 Normal PT-OP-Q Treatments Start: 11/24/20 16:25 Freq: Status: Active Protocol: Document 01/18/21 09:10 [facility] (Rec: 01/18/21 09:29 [facility] [id number]) Cardio Equipment Recumbent Stepper (Sci-Fit) Duration (Minutes) 10 Resistance 3 Seat Position 10 Other cues for neutral LE alignment Gym Equipment Sport Cord fwd, side Exercise Details fwd,bck,side Cord/Resistance green Reps/Duration 5 x each direction Comments mirror for visual feedback forward. cues for neutral postural alignment, core and gluteal activation Manual Therapy Treatment Soft Tissue Mobilization 1 Body Location adductor, gracilis, and sartorius tendons and musculature, iliopsoas, quad Mobilization Type Myofascial Release Intensity/Depth Deep Body Position Hooklying Joint Mobilizations 1 Joint right hip posterior and inferior glides Grade II Body Position Hooklying Reps/Duration 5 min Comments denied pain PT-OP-R Modalities Start: 11/24/20 16:25 Freq: Status: Active Protocol: Document 01/18/21 09:10 [facility] (Rec: 01/18/21 09:29 [facility] [id number]) Hot Pack/Cold Pack Treatment Cold Pack Location right groin Patient Position Supine Treatment Duration (minutes) 10 Patient Tolerance Good Ultrasound Therapy Treatment right medial groin Treatment Duration (minutes) 8 Patient Position Supine Coupling Medium Ultrasound Gel Applicator Size (cm2) 2 Frequency Setting (mHz) 3 Mode Setting Continuous Duty Cycle 100% Intensity Setting (w/cm2) 1.2 PT-OP-T Assessment and Plan Start: 11/24/20 16:25 Freq: Status: Active Protocol: Document 01/18/21 09:10 [facility] (Rec: 01/18/21 09:29 [facility] [id number]) Physical Therapy Assessment Goals Three Impairment Decreased activity tolerance: lower extremity functional scale 14% Short Term Goal (STG) Improve LEFS to at least 30% 01/11/21: Improved to 56% STG Duration goal met Halfway Goal (LTG) Improve LEFS to at least 60% as measure of improved activity tolerance LTG Duration Two Impairment antalgic gait, unable to alternate feet ascending stairs Short Term Goal (STG) Patient able to ambulate without a limp with least restrictive device 01/11/21: patient ambulating with minimal limp with no device, mostly met. STG Duration 12/25/20 Halfway Goal (LTG) Patient able to ambulate without a limp without a device and with alternating pattern on stairs LTG Duration 01/24/21 One Impairment Pain right groin 12/31 Short Term Goal (STG) Decrease pain to no greater than 3/10 01/11/21: some goal progress, pain 1-2 at rest now, but still as high as 6/10 when gets up after sitting STG Duration 12/25/20 Golf Player Assistant Goal (LTG) Decrease pain to no greater than 1/10 LTG Duration 01/24/21 Progress Towards Goals Progress Towards Goals Progressing Toward Goals Assessment Summary Assessment Patient reporting decrease in pain overall, though still can be quite high after prolonged sitting. Feel further emphasis on joint mobilization into posterior and inferior glides. Physical Therapy Plan Frequency and Duration Frequency of Treatment 2x/Week Duration of Treatment 8 weeks Plan of Care Start Date 11/25/20 Plan of Care End Date 01/24/21 Therapeutic Interventions Therapeutic Interventions Gait Training,Home Exercise Program,Joint Mobilizations, Manual Therapy,Neuromuscular Re-education,Patient/Caregiver Education,Self-Care/Home Management,Soft Tissue Mobilization,Therapeutic Activities,Therapeutic Exercises Modalities Cold Pack/Ice Massage,Hot Packs,Infrared Therapy, Iontophoresis,Ultrasound Next Visit Focus/Plan Next Note Type Treatment Note Next Visit Plan Continue progressive ther ex for strengthening and stabilization. joint mobilization to improve joint mechanics and decrease pain.
--- NOTE | 2021-01-20 15:29 | PT.OTN ---
Current Diagnoses Strain of muscle, fascia and tendon of right hip, initial encounter (01/20/21) Physical Therapy Treatment Note PT-OP-A Visit Information Start: 11/24/20 16:25 Freq: Status: Active Protocol: Document 01/20/21 14:30 [facility] (Rec: 01/20/21 15:23 [facility] [id number]) Out-Patient Physical Therapy Visit Information Visit Information Visit Type Treatment Note Visit Start Time 14:30 Visit Stop Time 15:29 Total Visit Minutes 59 Visit Number 13 PT-OP-B Current Condition Start: 11/24/20 16:25 Freq: Status: Active Protocol: Document 01/20/21 14:30 [facility] (Rec: 01/20/21 15:23 [facility] [id number]) Current Condition History of Current Condition Onset Date May 2020 Current Complaints groin pain History of Current Condition Pain started 1 month after fall down 7 stairs, right leg got caught behind, had scrape and bone bruise lower right LE . Landed with left leg in front of her, right leg bent back behind and internally rotated. Started having ischial tuberosity pain 1 month after fall, then states pain began to zig zag around leg, then groin pain. Jacinto now primarily groin. States unable to alternate LE's going up stairs, but can going down . States her groin seizes up when she goes from prolonged sitting to standing, then works itself out a little. Denies N/T, tingling. Prior Treatments and Tests No imaging. PT-OP-C Subjective Start: 11/24/20 16:25 Freq: Status: Active Protocol: Document 01/14/21 09:00 [facility] (Rec: 01/14/21 09:48 [facility] [id number]) OP-PT Subjective Patient Comments Patient Comments Saw chiropractor yesterday; worked on neck mid and lower back, adjusted pelvis; Dr. Thurman Was very pleased, feels better. Going back in 1 month . PT-OP-G Mobility & Gait Start: 11/24/20 16:25 Freq: Status: Active Protocol: Document 11/25/20 11:16 [facility] (Rec: 11/25/20 17:00 [facility] [id number]) OP Mobility Evaluation Bed Mobility Supine to and from Sit painful Transfers Sit to Stand painful, needs use of UE's OP Gait Assessment Gait Gait Assistance Required: Independent Assistive Devices Orthotic/Prosthetic Devices or Brace: No Gait Deviations General Gait Pattern Antalgic,Lateral Trunk Lean Factors Limiting Gait Function Factors Limiting Gait Function Pain Stair Climbing Evaluation Evaluation Level of Assist On Stairs Independent Devices Stair Climbing Assistive Devices Left Railing,Right Railing Comments Stair Climbing Comments step-to ascending, alternating descending both with bilateral UE support PT-OP-H Neuro Start: 11/24/20 16:25 Freq: Status: Active Protocol: Document 11/25/20 11:16 [facility] (Rec: 11/25/20 17:00 [facility] [id number]) Sensation Evaluation Gross Sensation Gross Sensation WNL Comments Summary Comments denies N/T PT-OP-J Posture/Palpation/Skin Start: 11/24/20 16:25 Freq: Status: Active Protocol: Document 11/25/20 11:16 [facility] (Rec: 11/25/20 17:00 [facility] [id number]) Posture Evaluation Position Standing L-Spine Posture Increased Lordosis Ankle/Foot Posture (L) Pronated,(R) Pronated Palpation Assessment Location psoas Palpation Location right Palpation Details nontender iliacus Palpation Location right Palpation Details nontender groin Palpation Location medial right Palpation Findings Tenderness PT-OP-K Range of Motion Start: 11/24/20 16:25 Freq: Status: Active Protocol: Document 11/25/20 11:16 [facility] (Rec: 11/25/20 17:00 [facility] [id number]) Hip Goniometric Range of Motion Hip right Hip ROM WFL No Flexion w/Knee Flexed 125 Straight Leg Raise 75 Extension 0 Abduction 35 Internal Rotation 40 External Rotation 80 Left Hip ROM WFL No Flexion w/Knee Flexed 125 Straight Leg Raise 80 Extension 0 Abduction 35 Internal Rotation 20 External Rotation 65 Hip ROM Limitations Hip ROM Limitations Soft Tissue Tightness,Pain Knee Goniometric Range of Motion Knee kianna Knee ROM WFL Yes PT-OP-L Special Tests Start: 11/24/20 16:25 Freq: Status: Active Protocol: Document 11/25/20 11:16 [facility] (Rec: 11/25/20 17:00 [facility] [id number]) Special Tests Hip Special Tests ingrid test Test Results negative kianna Anterior Labral Test Test Results negative kianna Scour Test Test Results negative kianna GRACE Test Results negative kianna PT-OP-M Strength Start: 05/04/21 16:25 Freq: Status: Active Protocol: Document 11/25/20 11:16 [facility] (Rec: 11/25/20 17:00 [facility] [id number]) Hip Strength Hip Manual Muscle Testing Right Flexion (L2) 4 Good Extension (S1) 3- Fair- Abduction 4 Good Adduction 4 Good External Rotation 4- Good- Internal Rotation 4 Good Comments pain with resisted flexion and extension Left Flexion (L2) 4 Good Extension (S1) 3- Fair- Abduction 4 Good Adduction 4 Good External Rotation 4- Good- Internal Rotation 4 Good Knee Strength Knee Manual Muscle Testing kianna Flexion (S2) 5 Normal Extension (L3) 5 Normal PT-OP-Q Treatments Start: 11/24/20 16:25 Freq: Status: Active Protocol: Document 01/20/21 14:30 [facility] (Rec: 01/20/21 15:23 [facility] [id number]) Cardio Equipment Recumbent Stepper (Sci-Fit) Duration (Minutes) 10 Resistance 3 Seat Position 10 Other cues for neutral LE alignment Gym Equipment Shuttle Recovery Unilateral Squats Details single leg squats Resistance 37# Shuttle Recovery Platform Stable Reps/Time 2x10 Bilateral Squats Details bilateral squats Resistance 62 lbs Shuttle Recovery Platform Stable Reps/Time 2 x 10 Shuttle Balance chains red Details bal and wt shift side to side, front/back Reps/Duration 6 min Manual Therapy Treatment Soft Tissue Mobilization 1 Body Location adductor, gracilis, and sartorius tendons and musculature, iliopsoas, quad Mobilization Type Myofascial Release Intensity/Depth Deep Body Position Hooklying Joint Mobilizations 1 Joint right hip posterior and inferior glides Grade II Body Position Hooklying Reps/Duration 5 min Comments denied pain PT-OP-R Modalities Start: 11/24/20 16:25 Freq: Status: Active Protocol: Document 01/20/21 14:30 [facility] (Rec: 01/20/21 15:23 [facility] [id number]) Hot Pack/Cold Pack Treatment Hot Pack Location right groin Patient Position Hooklying Treatment Duration (minutes) 15 Patient Tolerance Good Ultrasound Therapy Treatment right medial groin Treatment Duration (minutes) 8 Patient Position Supine Coupling Medium Ultrasound Gel Applicator Size (cm2) 2 Frequency Setting (mHz) 3 Mode Setting Continuous Duty Cycle 100% Intensity Setting (w/cm2) 1.2 PT-OP-T Assessment and Plan Start: 11/24/20 16:25 Freq: Status: Active Protocol: Document 01/20/21 14:30 [facility] (Rec: 01/20/21 15:23 [facility] [id number]) Physical Therapy Assessment Goals Three Impairment Decreased activity tolerance: lower extremity functional scale 14% Short Term Goal (STG) Improve LEFS to at least 30% 01/11/21: Improved to 56% STG Duration goal met [facility] Goal (LTG) Improve LEFS to at least 60% as measure of improved activity tolerance LTG Duration Two Impairment antalgic gait, unable to alternate feet ascending stairs Short Term Goal (STG) Patient able to ambulate without a limp with least restrictive device 01/11/21: patient ambulating with minimal limp with no device, mostly met. STG Duration 12/25/20 [facility] Goal (LTG) Patient able to ambulate without a limp without a device and with alternating pattern on stairs LTG Duration 01/24/21 One Impairment Pain right groin 12/31 Short Term Goal (STG) Decrease pain to no greater than 3/10 01/11/21: some goal progress, pain 1-2 at rest now, but still as high as 6/10 when gets up after sitting STG Duration 12/25/20 [facility] Goal (LTG) Decrease pain to no greater than 1/10 LTG Duration 01/24/21 Assessment Summary Assessment Good tolerance for joint mobilizations, and exercise progression today. Habitual gait of knee hyperextension and excess lumbar lordosis still evident, improved with cues. Increased resistance on shuttle leg press and able to add single leg shuttle leg press, denied increase in pain . Physical Therapy Plan Frequency and Duration Frequency of Treatment 2x/Week Duration of Treatment 6 weeks Plan of Care Start Date 01/20/21 Plan of Care End Date 03/06/21 Therapeutic Interventions Therapeutic Interventions Gait Training,Home Exercise Program,Joint Mobilizations, Manual Therapy,Neuromuscular Re-education,Patient/Caregiver Education,Self-Care/Home Management,Soft Tissue Mobilization,Therapeutic Activities,Therapeutic Exercises Modalities Cold Pack/Ice Massage,Hot Packs,Infrared Therapy, Iontophoresis,Ultrasound Next Visit Focus/Plan Next Note Type Treatment Note Next Visit Plan Continued strengthening progression, manual techniques , modalities as needed.
--- NOTE | 2021-01-20 15:37 | PT.OTRE ---
Current Diagnoses Strain of muscle, fascia and tendon of right hip, initial encounter (01/20/21) Past Medical History (Last Updated 12/19/20 @ 10:08 by Isabell Fung DO) Asthma Cataract Chronic back pain CTS (carpal tunnel syndrome) Essential hypertension (04/25/17) Greater trochanteric bursitis of left hip H/O colonoscopy with polypectomy (~10/2020) Hypercalcemia Hyperparathyroidism Hypertension Left hamstring muscle strain Measles Obesity Osteoarthritis Varicose veins of left lower extremity Surgical History (Last Updated 12/19/20 @ 10:09 by Isabell Fung DO) Anesthesia H/O colonoscopy with polypectomy (~10/2020) History of knee replacement (2016) History of spinal fusion (06/2009) History of spinal fusion (2011) Status post parathyroidectomy (2015) Status post tonsillectomy and adenoidectomy (1947) Visit Care Team Role Provider Type Isabell Fung DO Attending Provider Physician Family Provider Primary Care Provider Referring Provider Specialty: [facility] Address: [address] [place] [address], [address], [facility] Email: [email or web address] Physical Therapy Re-Evaluation PT-OP-A Visit Information Start: 11/24/20 16:25 Freq: Status: Active Protocol: Document 01/20/21 14:30 [facility] (Rec: 01/20/21 15:23 [facility] [id number]) Out-Patient Physical Therapy Visit Information Visit Information Visit Type Treatment Note Visit Start Time 14:30 Visit Stop Time 15:29 Total Visit Minutes 59 Visit Number 13 PT-OP-B Current Condition Start: 11/24/20 16:25 Freq: Status: Active Protocol: Document 01/20/21 14:30 [facility] (Rec: 01/20/21 15:23 [facility] [id number]) Current Condition History of Current Condition Onset Date May 2020 Current Complaints groin pain History of Current Condition Pain started 1 month after fall down 7 stairs, right leg got caught behind, had scrape and bone bruise lower right LE . Landed with left leg in front of her, right leg bent back behind and internally rotated. Started having ischial tuberosity pain 1 month after fall, then states pain began to zig zag around leg, then groin pain. Jacinto now primarily groin. States unable to alternate LE's going up stairs, but can going down . States her groin seizes up when she goes from prolonged sitting to standing, then works itself out a little. Denies N/T, tingling. Prior Treatments and Tests No imaging. PT-OP-C Subjective Start: 11/24/20 16:25 Freq: Status: Active Protocol: Document 01/14/21 09:00 [facility] (Rec: 01/14/21 09:48 [facility] [id number]) OP-PT Subjective Patient Comments Patient Comments Saw chiropractor yesterday; worked on neck mid and lower back, adjusted pelvis; Dr. Thurman Was very pleased, feels better. Going back in 1 month . PT-OP-G Mobility & Gait Start: 11/24/20 16:25 Freq: Status: Active Protocol: Document 11/25/20 11:16 [facility] (Rec: 11/25/20 17:00 [facility] [id number]) OP Mobility Evaluation Bed Mobility Supine to and from Sit painful Transfers Sit to Stand painful, needs use of UE's OP Gait Assessment Gait Gait Assistance Required: Independent Assistive Devices Orthotic/Prosthetic Devices or Brace: No Gait Deviations General Gait Pattern Antalgic,Lateral Trunk Lean Factors Limiting Gait Function Factors Limiting Gait Function Pain Stair Climbing Evaluation Evaluation Level of Assist On Stairs Independent Devices Stair Climbing Assistive Devices Left Railing,Right Railing Comments Stair Climbing Comments step-to ascending, alternating descending both with bilateral UE support PT-OP-H Neuro Start: 11/24/20 16:25 Freq: Status: Active Protocol: Document 11/25/20 11:16 [facility] (Rec: 11/25/20 17:00 [facility] [id number]) Sensation Evaluation Gross Sensation Gross Sensation WNL Comments Summary Comments denies N/T PT-OP-J Posture/Palpation/Skin Start: 11/24/20 16:25 Freq: Status: Active Protocol: Document 11/25/20 11:16 [facility] (Rec: 11/25/20 17:00 [facility] [id number]) Posture Evaluation Position Standing L-Spine Posture Increased Lordosis Ankle/Foot Posture (L) Pronated,(R) Pronated Palpation Assessment Location psoas Palpation Location right Palpation Details nontender iliacus Palpation Location right Palpation Details nontender groin Palpation Location medial right Palpation Findings Tenderness PT-OP-K Range of Motion Start: 11/24/20 16:25 Freq: Status: Active Protocol: Document 11/25/20 11:16 [facility] (Rec: 11/25/20 17:00 [facility] [id number]) Hip Goniometric Range of Motion Hip Measured in Degrees right Hip ROM WFL No Flexion w/Knee Flexed 125 Straight Leg Raise 75 Extension 0 Abduction 35 Internal Rotation 40 External Rotation 80 Left Hip ROM WFL No Flexion w/Knee Flexed 125 Straight Leg Raise 80 Extension 0 Abduction 35 Internal Rotation 20 External Rotation 65 Hip ROM Limitations Hip ROM Limitations Soft Tissue Tightness,Pain Knee Goniometric Range of Motion Knee Measured in Degrees kianna Knee ROM WFL Yes PT-OP-L Special Tests Start: 11/24/20 16:25 Freq: Status: Active Protocol: Document 11/25/20 11:16 [facility] (Rec: 11/25/20 17:00 [facility] [id number]) Special Tests Hip Special Tests ingrid test Test Results negative kianna Anterior Labral Test Test Results negative kianna Scour Test Test Results negative kianna GRACE Test Results negative kianna PT-OP-M Strength Start: 11/24/20 16:25 Freq: Status: Active Protocol: Document 11/25/20 11:16 [facility] (Rec: 11/25/20 17:00 [facility] [id number]) Hip Strength Hip Manual Muscle Testing Right Flexion (L2) 4 Good Extension (S1) 3- Fair- Abduction 4 Good Adduction 4 Good External Rotation 4- Good- Internal Rotation 4 Good Comments pain with resisted flexion and extension Left Flexion (L2) 4 Good Extension (S1) 3- Fair- Abduction 4 Good Adduction 4 Good External Rotation 4- Good- Internal Rotation 4 Good Knee Strength Knee Manual Muscle Testing kianna Flexion (S2) 5 Normal Extension (L3) 5 Normal PT-OP-Q Treatments Start: 11/24/20 16:25 Freq: Status: Active Protocol: Document 01/20/21 14:30 [facility] (Rec: 01/20/21 15:23 [facility] [id number]) Cardio Equipment Recumbent Stepper (Sci-Fit) Duration (Minutes) 10 Resistance 3 Seat Position 10 Other cues for neutral LE alignment Gym Equipment Shuttle Recovery Unilateral Squats Details single leg squats Resistance 37# Shuttle Recovery Platform Stable Reps/Time 2x10 Bilateral Squats Details bilateral squats Resistance 62 lbs Shuttle Recovery Platform Stable Reps/Time 2 x 10 Shuttle Balance chains red Details bal and wt shift side to side, front/back Reps/Duration 6 min Manual Therapy Treatment Soft Tissue Mobilization 1 Body Location adductor, gracilis, and sartorius tendons and musculature, iliopsoas, quad Mobilization Type Myofascial Release Intensity/Depth Deep Body Position Hooklying Joint Mobilizations 1 Joint right hip posterior and inferior glides Grade II Body Position Hooklying Reps/Duration 5 min Comments denied pain PT-OP-R Modalities Start: 11/24/20 16:25 Freq: Status: Active Protocol: Document 01/20/21 14:30 [facility] (Rec: 01/20/21 15:23 [facility] [id number]) Hot Pack/Cold Pack Treatment Hot Pack Location right groin Patient Position Hooklying Treatment Duration (minutes) 15 Patient Tolerance Good Ultrasound Therapy Treatment right medial groin Treatment Duration (minutes) 8 Patient Position Supine Coupling Medium Ultrasound Gel Applicator Size (cm2) 2 Frequency Setting (mHz) 3 Mode Setting Continuous Duty Cycle 100% Intensity Setting (w/cm2) 1.2 PT-OP-T Assessment and Plan Start: 11/24/20 16:25 Freq: Status: Active Protocol: Document 01/20/21 14:30 [facility] (Rec: 01/20/21 15:23 [facility] [id number]) Physical Therapy Assessment Goals Three Impairment Decreased activity tolerance: lower extremity functional scale 14% Short Term Goal (STG) Improve LEFS to at least 30% 01/11/21: Improved to 56% STG Duration goal met [employer] Goal (LTG) Improve LEFS to at least 60% as measure of improved activity tolerance 01/10/21: 56% LTG Duration 03/06/21 Two Impairment antalgic gait, unable to alternate feet ascending stairs Short Term Goal (STG) Patient able to ambulate without a limp with least restrictive device 01/11/21: patient ambulating with minimal limp with no device, mostly met. STG Duration partially met Long-Term Goal (LTG) Patient able to ambulate without a limp without a device and with alternating pattern on stairs 01/20/21: goal progress, has habitual limp, improved with cues; verbal, and visual LTG Duration 03/06/21 One Impairment Pain right groin 12/31 Short Term Goal (STG) Decrease pain to no greater than 3/10 01/11/21: some goal progress, pain 1-2 at rest now, but still as high as 6/10 when gets up after sitting STG Duration partially met [employer] Goal (LTG) Decrease pain to no greater than 1/10 01/20/21: goal progress, still most painful when moving from sit to stand, but improved, especially with addition of joint mobilization right hip into inferior and posterior glide LTG Duration 03/06/21 Progress Towards Goals Progress Towards Goals Progressing Toward Goals Assessment Summary Assessment Good tolerance for joint mobilizations, and exercise progression today, reported improved mobility and gait after last session with addition of hip joint mobilizations and ice vs heat. Habitual gait of knee hyperextension and excess lumbar lordosis still evident, improved with cues. Increased resistance on shuttle leg press and able to add single leg shuttle leg press, denied increase in pain . Feel she has good potential to make further improvements and achieve her goals with further skilled PT. Physical Therapy Plan Frequency and Duration Frequency of Treatment 2x/Week Duration of Treatment 6 weeks Plan of Care Start Date 01/20/21 Plan of Care End Date 03/06/21 Therapeutic Interventions Therapeutic Interventions Gait Training,Home Exercise Program,Joint Mobilizations, Manual Therapy,Neuromuscular Re-education,Patient/Caregiver Education,Self-Care/Home Management,Soft Tissue Mobilization,Therapeutic Activities,Therapeutic Exercises Modalities Cold Pack/Ice Massage,Hot Packs,Infrared Therapy, Iontophoresis,Ultrasound Next Visit Focus/Plan Next Note Type Treatment Note Next Visit Plan Continued strengthening progression, joint mobilizations, gait retraining , modalities and manual techniques to improve soft tissue mobility and decrease pain.
--- NOTE | 2021-01-20 15:37 | PT.OPPOC ---
Physical, Occupational & Speech Therapy At [facility] Current Diagnoses Strain of muscle, fascia and tendon of right hip, initial encounter (01/20/21) Visit Care Team Role Provider Type Isabell Fung DO Attending Provider Physician Family Provider Primary Care Provider Referring Provider Specialty: Family Practice Address: [address] [place] [address], [address], [facility] Email: [email or web address] Plan Of Care PT-OP-T Assessment and Plan Start: 11/24/20 16:25 Freq: Status: Active Protocol: Document 01/20/21 14:30 [facility] (Rec: 01/20/21 15:23 [facility] [id number]) Physical Therapy Assessment Goals Three Impairment Decreased activity tolerance: lower extremity functional scale 14% Short Term Goal (STG) Improve LEFS to at least 30% 01/11/21: Improved to 56% STG Duration goal met [employer] Goal (LTG) Improve LEFS to at least 60% as measure of improved activity tolerance 01/10/21: 56% LTG Duration 03/06/21 Two Impairment antalgic gait, unable to alternate feet ascending stairs Short Term Goal (STG) Patient able to ambulate without a limp with least restrictive device 01/11/21: patient ambulating with minimal limp with no device, mostly met. STG Duration partially met [employer] Goal (LTG) Patient able to ambulate without a limp without a device and with alternating pattern on stairs 01/20/21: goal progress, has habitual limp, improved with cues; verbal, and visual LTG Duration 03/06/21 One Impairment Pain right groin 12/31 Short Term Goal (STG) Decrease pain to no greater than 3/10 01/11/21: some goal progress, pain 1-2 at rest now, but still as high as 6/10 when gets up after sitting STG Duration partially met Assisted Goal (LTG) Decrease pain to no greater than 1/10 01/20/21: goal progress, still most painful when moving from sit to stand, but improved, especially with addition of joint mobilization right hip into inferior and posterior glide LTG Duration 03/06/21 Progress Towards Goals Progress Towards Goals Progressing Toward Goals Assessment Summary Assessment Good tolerance for joint mobilizations, and exercise progression today, reported improved mobility and gait after last session with addition of hip joint mobilizations and ice vs heat. Habitual gait of knee hyperextension and excess lumbar lordosis still evident, improved with cues. Increased resistance on shuttle leg press and able to add single leg shuttle leg press, denied increase in pain . Feel she has good potential to make further improvements and achieve her goals with further skilled PT. Physical Therapy Plan Frequency and Duration Frequency of Treatment 2x/Week Duration of Treatment 6 weeks Plan of Care Start Date 01/20/21 Plan of Care End Date 03/06/21 Therapeutic Interventions Therapeutic Interventions Gait Training,Home Exercise Program,Joint Mobilizations, Manual Therapy,Neuromuscular Re-education,Patient/Caregiver Education,Self-Care/Home Management,Soft Tissue Mobilization,Therapeutic Activities,Therapeutic Exercises Modalities Cold Pack/Ice Massage,Hot Packs,Infrared Therapy, Iontophoresis,Ultrasound Next Visit Focus/Plan Next Note Type Treatment Note Next Visit Plan Continued strengthening progression, joint mobilizations, gait retraining , modalities and manual techniques to improve soft tissue mobility and decrease pain. Plan of Care Dates Plan of Care Start Date 01/20/21 Plan of Care End Date 03/06/21 Electronically Signed by: Martina Feng, PT 01/20/21 4422 Please Sign and Return: I have reviewed this Plan of Care and certify that the skilled therapy services above are required to meet the patient?s needs. Physician Signature Date Printed Name and Credentials Clinical Instructor Signature Printed Name and Credentials
--- NOTE | 2021-02-02 16:39 | PT.OTN ---
Current Diagnoses Strain of muscle, fascia and tendon of right hip, initial encounter (02/02/21) Physical Therapy Treatment Note PT-OP-A Visit Information Start: 11/24/20 16:25 Freq: Status: Active Protocol: Document 02/02/21 09:05 [facility] (Rec: 02/02/21 09:25 [facility] [id number]) Out-Patient Physical Therapy Visit Information Visit Information Visit Type Treatment Note Visit Start Time 09:05 Visit Stop Time 10:00 Total Visit Minutes 55 Visit Number 14 PT-OP-B Current Condition Start: 11/24/20 16:25 Freq: Status: Active Protocol: Document 01/20/21 14:30 [facility] (Rec: 01/20/21 15:23 [facility] [id number]) Current Condition History of Current Condition Onset Date May 2020 Current Complaints groin pain History of Current Condition Pain started 1 month after fall down 7 stairs, right leg got caught behind, had scrape and bone bruise lower right LE . Landed with left leg in front of her, right leg bent back behind and internally rotated. Started having ischial tuberosity pain 1 month after fall, then states pain began to zig zag around leg, then groin pain. Jacinto now primarily groin. States unable to alternate LE's going up stairs, but can going down . States her groin seizes up when she goes from prolonged sitting to standing, then works itself out a little. Denies N/T, tingling. Prior Treatments and Tests No imaging. PT-OP-C Subjective Start: 11/24/20 16:25 Freq: Status: Active Protocol: Document 02/02/21 09:05 [facility] (Rec: 02/02/21 09:25 [facility] [id number]) OP-PT Subjective Patient Comments Patient Comments Groin feeling better, feels manual treatment most helpful. Having pain left arch, doesn 't think she is compensating but willing to admit per PT that she is, including likely shifting weight more to left side. Decided she likes heat better. PT-OP-G Mobility & Gait Start: 11/24/20 16:25 Freq: Status: Active Protocol: Document 11/25/20 11:16 [facility] (Rec: 11/25/20 17:00 [facility] [id number]) OP Mobility Evaluation Bed Mobility Supine to and from Sit painful Transfers Sit to Stand painful, needs use of UE's OP Gait Assessment Gait Gait Assistance Required: Independent Assistive Devices Orthotic/Prosthetic Devices or Brace: No Gait Deviations General Gait Pattern Antalgic,Lateral Trunk Lean Factors Limiting Gait Function Factors Limiting Gait Function Pain Stair Climbing Evaluation Evaluation Level of Assist On Stairs Independent Devices Stair Climbing Assistive Devices Left Railing,Right Railing Comments Stair Climbing Comments step-to ascending, alternating descending both with bilateral UE support PT-OP-H Neuro Start: 11/24/20 16:25 Freq: Status: Active Protocol: Document 11/25/20 11:16 [facility] (Rec: 11/25/20 17:00 [facility] [id number]) Sensation Evaluation Gross Sensation Gross Sensation WNL Comments Summary Comments denies N/T PT-OP-J Posture/Palpation/Skin Start: 11/24/20 16:25 Freq: Status: Active Protocol: Document 11/25/20 11:16 [facility] (Rec: 11/25/20 17:00 [facility] [id number]) Posture Evaluation Position Standing L-Spine Posture Increased Lordosis Ankle/Foot Posture (L) Pronated,(R) Pronated Palpation Assessment Location psoas Palpation Location right Palpation Details nontender iliacus Palpation Location right Palpation Details nontender groin Palpation Location medial right Palpation Findings Tenderness PT-OP-K Range of Motion Start: 11/24/20 16:25 Freq: Status: Active Protocol: Document 11/25/20 11:16 [facility] (Rec: 11/25/20 17:00 [facility] [id number]) Hip Goniometric Range of Motion Hip right Hip ROM WFL No Flexion w/Knee Flexed 125 Straight Leg Raise 75 Extension 0 Abduction 35 Internal Rotation 40 External Rotation 80 Left Hip ROM WFL No Flexion w/Knee Flexed 125 Straight Leg Raise 80 Extension 0 Abduction 35 Internal Rotation 20 External Rotation 65 Hip ROM Limitations Hip ROM Limitations Soft Tissue Tightness,Pain Knee Goniometric Range of Motion Knee kianna Knee ROM WFL Yes PT-OP-L Special Tests Start: 11/24/20 16:25 Freq: Status: Active Protocol: Document 11/25/20 11:16 [facility] (Rec: 11/25/20 17:00 [facility] [id number]) Special Tests Hip Special Tests ingrid test Test Results negative kianna Anterior Labral Test Test Results negative kianna Scour Test Test Results negative kianna GRACE Test Results negative kianna PT-OP-M Strength Start: 11/24/20 16:25 Freq: Status: Active Protocol: Document 11/25/20 11:16 [facility] (Rec: 11/25/20 17:00 [facility] [id number]) Hip Strength Hip Manual Muscle Testing Right Flexion (L2) 4 Good Extension (S1) 3- Fair- Abduction 4 Good Adduction 4 Good External Rotation 4- Good- Internal Rotation 4 Good Comments pain with resisted flexion and extension Left Flexion (L2) 4 Good Extension (S1) 3- Fair- Abduction 4 Good Adduction 4 Good External Rotation 4- Good- Internal Rotation 4 Good Knee Strength Knee Manual Muscle Testing kianna Flexion (S2) 5 Normal Extension (L3) 5 Normal PT-OP-Q Treatments Start: 11/24/20 16:25 Freq: Status: Active Protocol: Document 02/02/21 09:05 [facility] (Rec: 02/02/21 09:25 [facility] [id number]) Cardio Equipment Recumbent Stepper (Sci-Fit) Duration (Minutes) 10 Resistance 3 Seat Position 10 Other cues for neutral LE alignment Gym Equipment Shuttle Recovery Unilateral Squats Details single leg squats Resistance 37# Shuttle Recovery Platform Stable Reps/Time 2x10 Bilateral Squats Details bilateral squats Resistance 62 lbs Shuttle Recovery Platform Stable Reps/Time 2 x 10 Shuttle Balance chains red Details bal and wt shift side to side, front/back Reps/Duration 6 min Manual Therapy Treatment Soft Tissue Mobilization 1 Body Location adductor, gracilis, and sartorius tendons and musculature, iliopsoas, quad Mobilization Type Myofascial Release Intensity/Depth Deep Body Position Hooklying Joint Mobilizations 1 Joint right hip posterior and inferior glides Grade II Body Position Hooklying Reps/Duration 5 min Comments denied pain Manual Techniques 1 Type manual stretching in sidelying for the quads and iliopsoas Comments sidelying position PT-OP-R Modalities Start: 11/24/20 16:25 Freq: Status: Active Protocol: Document 02/02/21 09:05 [facility] (Rec: 02/02/21 09:25 [facility] [id number]) Hot Pack/Cold Pack Treatment Hot Pack Location right groin Patient Position Hooklying Treatment Duration (minutes) 15 Patient Tolerance Good Ultrasound Therapy Treatment right medial groin Treatment Duration (minutes) 8 Patient Position Supine Coupling Medium Ultrasound Gel Applicator Size (cm2) 2 Frequency Setting (mHz) 3 Mode Setting Continuous Duty Cycle 100% Intensity Setting (w/cm2) 1.2 PT-OP-T Assessment and Plan Start: 11/24/20 16:25 Freq: Status: Active Protocol: Document 02/02/21 09:05 [facility] (Rec: 02/02/21 09:25 [facility] [id number]) Physical Therapy Assessment Goals Three Impairment Decreased activity tolerance: lower extremity functional scale 14% Short Term Goal (STG) Improve LEFS to at least 30% 01/11/21: Improved to 56% STG Duration goal met Usp Goal (LTG) Improve LEFS to at least 60% as measure of improved activity tolerance 01/10/21: 56% LTG Duration 03/06/21 Two Impairment antalgic gait, unable to alternate feet ascending stairs Short Term Goal (STG) Patient able to ambulate without a limp with least restrictive device 01/11/21: patient ambulating with minimal limp with no device, mostly met. STG Duration partially met Sheet Roller Operator Goal (LTG) Patient able to ambulate without a limp without a device and with alternating pattern on stairs 01/20/21: goal progress, has habitual limp, improved with cues; verbal, and visual LTG Duration 03/06/21 One Impairment Pain right groin 12/31 Short Term Goal (STG) Decrease pain to no greater than 3/10 01/11/21: some goal progress, pain 1-2 at rest now, but still as high as 6/10 when gets up after sitting STG Duration partially met Sheet Roller Operator Goal (LTG) Decrease pain to no greater than 1/10 01/20/21: goal progress, still most painful when moving from sit to stand, but improved, especially with addition of joint mobilization right hip into inferior and posterior glide LTG Duration 03/06/21 Assessment Summary Assessment Continued progress with decreasing pain and improving function in right hip. Patient needs further cues and gait training to prevent compensation which is likely causing left arch pain. Physical Therapy Plan Frequency and Duration Frequency of Treatment 2x/Week Duration of Treatment 6 weeks Plan of Care Start Date 01/20/21 Plan of Care End Date 03/06/21 Therapeutic Interventions Therapeutic Interventions Gait Training,Home Exercise Program,Joint Mobilizations, Manual Therapy,Neuromuscular Re-education,Patient/Caregiver Education,Self-Care/Home Management,Soft Tissue Mobilization,Therapeutic Activities,Therapeutic Exercises Modalities Cold Pack/Ice Massage,Hot Packs,Infrared Therapy, Iontophoresis,Ultrasound Next Visit Focus/Plan Next Note Type Treatment Note Next Visit Plan Continued strengthening progression, joint mobilizations, gait retraining , modalities and manual techniques to improve soft tissue mobility and decrease pain. Functional closed chain ex as tolerated.
--- NOTE | 2021-02-04 13:15 | PT.OTN ---
Current Diagnoses Strain of muscle, fascia and tendon of right hip, initial encounter (02/04/21) Physical Therapy Treatment Note PT-OP-A Visit Information Start: 11/24/20 16:25 Freq: Status: Active Protocol: Document 02/04/21 09:11 [facility] (Rec: 02/04/21 09:24 [facility] [id number]) Out-Patient Physical Therapy Visit Information Visit Information Visit Type Treatment Note Visit Start Time 09:05 Visit Stop Time 10:04 Total Visit Minutes 59 Visit Number 15 PT-OP-B Current Condition Start: 11/24/20 16:25 Freq: Status: Active Protocol: Document 01/20/21 14:30 [facility] (Rec: 01/20/21 15:23 [facility] [id number]) Current Condition History of Current Condition Onset Date May 2020 Current Complaints groin pain History of Current Condition Pain started 1 month after fall down 7 stairs, right leg got caught behind, had scrape and bone bruise lower right LE . Landed with left leg in front of her, right leg bent back behind and internally rotated. Started having ischial tuberosity pain 1 month after fall, then states pain began to zig zag around leg, then groin pain. Jacinto now primarily groin. States unable to alternate LE's going up stairs, but can going down . States her groin seizes up when she goes from prolonged sitting to standing, then works itself out a little. Denies N/T, tingling. Prior Treatments and Tests No imaging. PT-OP-C Subjective Start: 11/24/20 16:25 Freq: Status: Active Protocol: Document 02/04/21 09:11 [facility] (Rec: 02/04/21 09:24 [facility] [id number]) OP-PT Subjective Patient Comments Patient Comments Min hip pain pain, arch pain left some better. Got Magna wave machine but hasn't used yet due to sister's concern over the use of a machine with a magnet, patient to check on use precautions. PT-OP-G Mobility & Gait Start: 11/24/20 16:25 Freq: Status: Active Protocol: Document 11/25/20 11:16 [facility] (Rec: 11/25/20 17:00 [facility] [id number]) OP Mobility Evaluation Bed Mobility Supine to and from Sit painful Transfers Sit to Stand painful, needs use of UE's OP Gait Assessment Gait Gait Assistance Required: Independent Assistive Devices Orthotic/Prosthetic Devices or Brace: No Gait Deviations General Gait Pattern Antalgic,Lateral Trunk Lean Factors Limiting Gait Function Factors Limiting Gait Function Pain Stair Climbing Evaluation Evaluation Level of Assist On Stairs Independent Devices Stair Climbing Assistive Devices Left Railing,Right Railing Comments Stair Climbing Comments step-to ascending, alternating descending both with bilateral UE support PT-OP-H Neuro Start: 11/24/20 16:25 Freq: Status: Active Protocol: Document 11/25/20 11:16 [facility] (Rec: 11/25/20 17:00 [facility] [id number]) Sensation Evaluation Gross Sensation Gross Sensation WNL Comments Summary Comments denies N/T PT-OP-J Posture/Palpation/Skin Start: 11/24/20 16:25 Freq: Status: Active Protocol: Document 11/25/20 11:16 [facility] (Rec: 11/25/20 17:00 [facility] [id number]) Posture Evaluation Position Standing L-Spine Posture Increased Lordosis Ankle/Foot Posture (L) Pronated,(R) Pronated Palpation Assessment Location psoas Palpation Location right Palpation Details nontender iliacus Palpation Location right Palpation Details nontender groin Palpation Location medial right Palpation Findings Tenderness PT-OP-K Range of Motion Start: 11/24/20 16:25 Freq: Status: Active Protocol: Document 11/25/20 11:16 [facility] (Rec: 11/25/20 17:00 [facility] [id number]) Hip Goniometric Range of Motion Hip right Hip ROM WFL No Flexion w/Knee Flexed 125 Straight Leg Raise 75 Extension 0 Abduction 35 Internal Rotation 40 External Rotation 80 Left Hip ROM WFL No Flexion w/Knee Flexed 125 Straight Leg Raise 80 Extension 0 Abduction 35 Internal Rotation 20 External Rotation 65 Hip ROM Limitations Hip ROM Limitations Soft Tissue Tightness,Pain Knee Goniometric Range of Motion Knee kianna Knee ROM WFL Yes PT-OP-L Special Tests Start: 11/24/20 16:25 Freq: Status: Active Protocol: Document 11/25/20 11:16 [facility] (Rec: 11/25/20 17:00 [facility] [id number]) Special Tests Hip Special Tests ingrid test Test Results negative kianna Anterior Labral Test Test Results negative kianna Scour Test Test Results negative kianna GRACE Test Results negative kianna PT-OP-M Strength Start: 11/24/20 16:25 Freq: Status: Active Protocol: Document 11/25/20 11:16 [facility] (Rec: 11/25/20 17:00 [facility] [id number]) Hip Strength Hip Manual Muscle Testing Right Flexion (L2) 4 Good Extension (S1) 3- Fair- Abduction 4 Good Adduction 4 Good External Rotation 4- Good- Internal Rotation 4 Good Comments pain with resisted flexion and extension Left Flexion (L2) 4 Good Extension (S1) 3- Fair- Abduction 4 Good Adduction 4 Good External Rotation 4- Good- Internal Rotation 4 Good Knee Strength Knee Manual Muscle Testing kianna Flexion (S2) 5 Normal Extension (L3) 5 Normal PT-OP-Q Treatments Start: 11/24/20 16:25 Freq: Status: Active Protocol: Document 02/04/21 09:11 [facility] (Rec: 02/04/21 09:24 [facility] [id number]) Cardio Equipment Recumbent Stepper (Sci-Fit) Duration (Minutes) 10 Resistance 3 Seat Position 10 Other cues for neutral LE alignment Gym Equipment Shuttle Recovery Unilateral Squats Details single leg squats Resistance 37# Shuttle Recovery Platform Stable Reps/Time 2x10 Bilateral Squats Details bilateral squats Resistance 75 lbs Shuttle Recovery Platform Stable Reps/Time 2 x 10 Therapeutic Exercises Standing Exercises hc stretch Equipment Used ERIC Reps/Minutes 2x Manual Therapy Treatment Soft Tissue Mobilization 1 Body Location adductor, gracilis, and sartorius tendons and musculature, iliopsoas, quad Mobilization Type Instrument Assisted,Myofascial Release,Strumming Intensity/Depth Deep Body Position Hooklying Comments massage roller Joint Mobilizations 1 Joint right hip posterior and inferior glides Grade II Body Position Hooklying Reps/Duration 5 min Comments denied pain PT-OP-R Modalities Start: 11/24/20 16:25 Freq: Status: Active Protocol: Document 02/04/21 09:11 [facility] (Rec: 02/04/21 09:24 [facility] [id number]) Hot Pack/Cold Pack Treatment Hot Pack Location right groin Patient Position Hooklying Treatment Duration (minutes) 15 Patient Tolerance Good Ultrasound Therapy Treatment right medial groin Treatment Duration (minutes) 8 Patient Position Supine Coupling Medium Ultrasound Gel Applicator Size (cm2) 2 Frequency Setting (mHz) 3 Mode Setting Continuous Duty Cycle 100% Intensity Setting (w/cm2) 1.2 PT-OP-T Assessment and Plan Start: 11/24/20 16:25 Freq: Status: Active Protocol: Document 02/04/21 09:11 [facility] (Rec: 02/04/21 09:24 [facility] [id number]) Physical Therapy Assessment Goals Three Impairment Decreased activity tolerance: lower extremity functional scale 14% Short Term Goal (STG) Improve LEFS to at least 30% 01/11/21: Improved to 56% STG Duration goal met Retirement Goal (LTG) Improve LEFS to at least 60% as measure of improved activity tolerance 01/10/21: 56% LTG Duration 03/06/21 Two Impairment antalgic gait, unable to alternate feet ascending stairs Short Term Goal (STG) Patient able to ambulate without a limp with least restrictive device 01/11/21: patient ambulating with minimal limp with no device, mostly met. STG Duration partially met Cranberry Grower Goal (LTG) Patient able to ambulate without a limp without a device and with alternating pattern on stairs 01/20/21: goal progress, has habitual limp, improved with cues; verbal, and visual LTG Duration 03/06/21 One Impairment Pain right groin 6/10 Short Term Goal (STG) Decrease pain to no greater than 3/10 01/11/21: some goal progress, pain 1-2 at rest now, but still as high as 6/10 when gets up after sitting STG Duration partially met Cranberry Grower Goal (LTG) Decrease pain to no greater than 1/10 01/20/21: goal progress, still most painful when moving from sit to stand, but improved, especially with addition of joint mobilization right hip into inferior and posterior glide LTG Duration 03/06/21 Assessment Summary Assessment Patient improving though after shuttle leg press with increased resistance reported increase in hip pain. Decreased with ultrasound and manual treatment. Stressed compliance to HEP which has been variable. Physical Therapy Plan Frequency and Duration Frequency of Treatment 2x/Week Duration of Treatment 6 weeks Plan of Care Start Date 01/20/21 Plan of Care End Date 03/06/21 Therapeutic Interventions Therapeutic Interventions Gait Training,Home Exercise Program,Joint Mobilizations, Manual Therapy,Neuromuscular Re-education,Patient/Caregiver Education,Self-Care/Home Management,Soft Tissue Mobilization,Therapeutic Activities,Therapeutic Exercises Modalities Cold Pack/Ice Massage,Hot Packs,Infrared Therapy, Iontophoresis,Ultrasound Next Visit Focus/Plan Next Note Type Treatment Note Next Visit Plan video gait for patient for patient education, continued closed chain exercise progression.
--- NOTE | 2021-02-15 12:00 | PT.OTN ---
Current Diagnoses Strain of muscle, fascia and tendon of right hip, initial encounter (02/15/21) Physical Therapy Treatment Note PT-OP-A Visit Information Start: 11/24/20 16:25 Freq: Status: Active Protocol: Document 02/15/21 09:03 [facility] (Rec: 02/15/21 09:20 [facility] [id number]) Out-Patient Physical Therapy Visit Information Visit Information Visit Type Treatment Note Visit Start Time 09:00 Visit Stop Time 09:58 Total Visit Minutes 59 Visit Number 16 PT-OP-B Current Condition Start: 11/24/20 16:25 Freq: Status: Active Protocol: Document 01/20/21 14:30 [facility] (Rec: 01/20/21 15:23 [facility] [id number]) Current Condition History of Current Condition Onset Date May 2020 Current Complaints groin pain History of Current Condition Pain started 1 month after fall down 7 stairs, right leg got caught behind, had scrape and bone bruise lower right LE . Landed with left leg in front of her, right leg bent back behind and internally rotated. Started having ischial tuberosity pain 1 month after fall, then states pain began to zig zag around leg, then groin pain. [place]into now primarily groin. States unable to alternate LE's going up stairs, but can going down . States her groin seizes up when she goes from prolonged sitting to standing, then works itself out a little. Denies N/T, tingling. Prior Treatments and Tests No imaging. PT-OP-C Subjective Start: 11/24/20 16:25 Freq: Status: Active Protocol: Document 02/04/21 09:11 [facility] (Rec: 02/04/21 09:24 [facility] [id number]) OP-PT Subjective Patient Comments Patient Comments Min hip pain pain, arch pain left some better. Got Magna wave machine but hasn't used yet due to sister's concern over the use of a machine with a magnet, patient to check on use precautions. PT-OP-G Mobility & Gait Start: 11/24/20 16:25 Freq: Status: Active Protocol: Document 11/25/20 11:16 [facility] (Rec: 11/25/20 17:00 [facility] [id number]) OP Mobility Evaluation Bed Mobility Supine to and from Sit painful Transfers Sit to Stand painful, needs use of UE's OP Gait Assessment Gait Gait Assistance Required: Independent Assistive Devices Orthotic/Prosthetic Devices or Brace: No Gait Deviations General Gait Pattern Antalgic,Lateral Trunk Lean Factors Limiting Gait Function Factors Limiting Gait Function Pain Stair Climbing Evaluation Evaluation Level of Assist On Stairs Independent Devices Stair Climbing Assistive Devices Left Railing,Right Railing Comments Stair Climbing Comments step-to ascending, alternating descending both with bilateral UE support PT-OP-H Neuro Start: 11/24/20 16:25 Freq: Status: Active Protocol: Document 11/25/20 11:16 [facility] (Rec: 11/25/20 17:00 [facility] [id number]) Sensation Evaluation Gross Sensation Gross Sensation WNL Comments Summary Comments denies N/T PT-OP-J Posture/Palpation/Skin Start: 11/24/20 16:25 Freq: Status: Active Protocol: Document 11/25/20 11:16 [facility] (Rec: 11/25/20 17:00 [facility] [id number]) Posture Evaluation Position Standing L-Spine Posture Increased Lordosis Ankle/Foot Posture (L) Pronated,(R) Pronated Palpation Assessment Location psoas Palpation Location right Palpation Details nontender iliacus Palpation Location right Palpation Details nontender groin Palpation Location medial right Palpation Findings Tenderness PT-OP-K Range of Motion Start: 11/24/20 16:25 Freq: Status: Active Protocol: Document 11/25/20 11:16 [facility] (Rec: 11/25/20 17:00 [facility] [id number]) Hip Goniometric Range of Motion Hip right Hip ROM WFL No Flexion w/Knee Flexed 125 Straight Leg Raise 75 Extension 0 Abduction 35 Internal Rotation 40 External Rotation 80 Left Hip ROM WFL No Flexion w/Knee Flexed 125 Straight Leg Raise 80 Extension 0 Abduction 35 Internal Rotation 20 External Rotation 65 Hip ROM Limitations Hip ROM Limitations Soft Tissue Tightness,Pain Knee Goniometric Range of Motion Knee kianna Knee ROM WFL Yes PT-OP-L Special Tests Start: 11/24/20 16:25 Freq: Status: Active Protocol: Document 11/25/20 11:16 [facility] (Rec: 11/25/20 17:00 [facility] [id number]) Special Tests Hip Special Tests ingrid test Test Results negative kianna Anterior Labral Test Test Results negative kianna Scour Test Test Results negative kianna GRACE Test Results negative kianna PT-OP-M Strength Start: 11/24/20 16:25 Freq: Status: Active Protocol: Document 11/25/20 11:16 [facility] (Rec: 11/25/20 17:00 [facility] [id number]) Hip Strength Hip Manual Muscle Testing Right Flexion (L2) 4 Good Extension (S1) 3- Fair- Abduction 4 Good Adduction 4 Good External Rotation 4- Good- Internal Rotation 4 Good Comments pain with resisted flexion and extension Left Flexion (L2) 4 Good Extension (S1) 3- Fair- Abduction 4 Good Adduction 4 Good External Rotation 4- Good- Internal Rotation 4 Good Knee Strength Knee Manual Muscle Testing kianna Flexion (S2) 5 Normal Extension (L3) 5 Normal PT-OP-Q Treatments Start: 11/24/20 16:25 Freq: Status: Active Protocol: Document 02/15/21 09:03 [facility] (Rec: 02/15/21 09:20 [facility] [id number]) Cardio Equipment Recumbent Stepper (Sci-Fit) Duration (Minutes) 10 Resistance 3 Seat Position 10 Other cues for neutral LE alignment Gym Equipment Shuttle Recovery Unilateral Squats Details single leg squats Resistance 37# Shuttle Recovery Platform Stable Reps/Time 2x10 Bilateral Squats Details bilateral squats Resistance 75 lbs Shuttle Recovery Platform Stable Reps/Time 2 x 10 Therapeutic Exercises Standing Exercises single leg stance Reps/Minutes 4x10 Comments mirror for visual feedback. Manual Therapy Treatment Soft Tissue Mobilization 1 Body Location adductor, gracilis, and sartorius tendons and musculature, iliopsoas, quad Mobilization Type Instrument Assisted,Myofascial Release,Strumming Intensity/Depth Deep Body Position Hooklying Comments massage roller Joint Mobilizations 1 Joint right hip posterior and inferior glides Grade II Body Position Hooklying Reps/Duration 5 min Comments denied pain Manual Techniques 1 Type manual stretching in sidelying for the quads and iliopsoas Comments sidelying position Self-Care/Home Management Treatment Education Patient Education Home Exercise Program Other Education use of patient phone to film her walking down hess both away and toward PT; discussed gait and evident Trendelenberg . Addressed through SLS. PT-OP-R Modalities Start: 11/24/20 16:25 Freq: Status: Active Protocol: Document 02/15/21 09:03 [facility] (Rec: 02/15/21 09:20 [facility] [id number]) Hot Pack/Cold Pack Treatment Hot Pack Location right groin Patient Position Hooklying Treatment Duration (minutes) 15 Patient Tolerance Good Ultrasound Therapy Treatment right medial groin Treatment Duration (minutes) 8 Patient Position Supine Coupling Medium Ultrasound Gel Applicator Size (cm2) 2 Frequency Setting (mHz) 3 Mode Setting Continuous Duty Cycle 100% Intensity Setting (w/cm2) 1.2 PT-OP-T Assessment and Plan Start: 11/24/20 16:25 Freq: Status: Active Protocol: Document 02/15/21 09:03 [facility] (Rec: 02/15/21 09:20 [facility] [id number]) Physical Therapy Assessment Goals Three Impairment Decreased activity tolerance: lower extremity functional scale 14% Short Term Goal (STG) Improve LEFS to at least 30% 01/11/21: Improved to 56% STG Duration goal met Jail Goal (LTG) Improve LEFS to at least 60% as measure of improved activity tolerance 01/10/21: 56% LTG Duration 03/06/21 Two Impairment antalgic gait, unable to alternate feet ascending stairs Short Term Goal (STG) Patient able to ambulate without a limp with least restrictive device 01/11/21: patient ambulating with minimal limp with no device, mostly met. STG Duration partially met Jail Goal (LTG) Patient able to ambulate without a limp without a device and with alternating pattern on stairs 01/20/21: goal progress, has habitual limp, improved with cues; verbal, and visual LTG Duration 03/06/21 One Impairment Pain right groin 6/10 Short Term Goal (STG) Decrease pain to no greater than 3/10 01/11/21: some goal progress, pain 1-2 at rest now, but still as high as 6/10 when gets up after sitting STG Duration partially met Jail Goal (LTG) Decrease pain to no greater than 1/10 01/20/21: goal progress, still most painful when moving from sit to stand, but improved, especially with addition of joint mobilization right hip into inferior and posterior glide LTG Duration 03/06/21 Assessment Summary Assessment Video of patient gait today with education regarding Trendelenberg indication of glut med weakness, patient demonstrated good understanding. Physical Therapy Plan Frequency and Duration Frequency of Treatment 2x/Week Duration of Treatment 6 weeks Plan of Care Start Date 01/20/21 Plan of Care End Date 03/06/21 Therapeutic Interventions Therapeutic Interventions Gait Training,Home Exercise Program,Joint Mobilizations, Manual Therapy,Neuromuscular Re-education,Patient/Caregiver Education,Self-Care/Home Management,Soft Tissue Mobilization,Therapeutic Activities,Therapeutic Exercises Modalities Cold Pack/Ice Massage,Hot Packs,Infrared Therapy, Iontophoresis,Ultrasound Next Visit Focus/Plan Next Note Type Treatment Note Next Visit Plan LE PNF, continue ultrasound, manual treatment, ther ex progression. Further discussion of gait as indicated.
--- NOTE | 2021-02-24 16:01 | PT.OTN ---
Current Diagnoses Strain of muscle, fascia and tendon of right hip, initial encounter (02/24/21) Physical Therapy Treatment Note PT-OP-A Visit Information Start: 11/24/20 16:25 Freq: Status: Active Protocol: Document 02/24/21 09:08 [facility] (Rec: 02/24/21 09:27 [facility] [id number]) Out-Patient Physical Therapy Visit Information Visit Information Visit Type Treatment Note Visit Start Time 09:00 Visit Stop Time 09:58 Total Visit Minutes 58 Visit Number 17 PT-OP-B Current Condition Start: 11/24/20 16:25 Freq: Status: Active Protocol: Document 01/20/21 14:30 [facility] (Rec: 01/20/21 15:23 [facility] [id number]) Current Condition History of Current Condition Onset Date May 2020 Current Complaints groin pain History of Current Condition Pain started 1 month after fall down 7 stairs, right leg got caught behind, had scrape and bone bruise lower right LE . Landed with left leg in front of her, right leg bent back behind and internally rotated. Started having ischial tuberosity pain 1 month after fall, then states pain began to zig zag around leg, then groin pain. [place]into now primarily groin. States unable to alternate LE's going up stairs, but can going down . States her groin seizes up when she goes from prolonged sitting to standing, then works itself out a little. Denies N/T, tingling. Prior Treatments and Tests No imaging. PT-OP-C Subjective Start: 11/24/20 16:25 Freq: Status: Active Protocol: Document 02/24/21 09:08 [facility] (Rec: 02/24/21 16:01 [facility] [id number]) OP-PT Subjective Patient Comments Patient Comments Patient reports working hard on correct gait mechanics and muscle activation. Persistent pain and tightness but much improved. Working on strengthening and increasing her gait tolerance as she anticipates a trip to [facility] in a few months. Patient Reported Progress Improving PT-OP-G Mobility & Gait Start: 11/24/20 16:25 Freq: Status: Active Protocol: Document 11/25/20 11:16 [facility] (Rec: 11/25/20 17:00 [facility] [id number]) OP Mobility Evaluation Bed Mobility Supine to and from Sit painful Transfers Sit to Stand painful, needs use of UE's OP Gait Assessment Gait Gait Assistance Required: Independent Assistive Devices Orthotic/Prosthetic Devices or Brace: No Gait Deviations General Gait Pattern Antalgic,Lateral Trunk Lean Factors Limiting Gait Function Factors Limiting Gait Function Pain Stair Climbing Evaluation Evaluation Level of Assist On Stairs Independent Devices Stair Climbing Assistive Devices Left Railing,Right Railing Comments Stair Climbing Comments step-to ascending, alternating descending both with bilateral UE support PT-OP-H Neuro Start: 11/24/20 16:25 Freq: Status: Active Protocol: Document 11/25/20 11:16 [facility] (Rec: 11/25/20 17:00 [facility] [id number]) Sensation Evaluation Gross Sensation Gross Sensation WNL Comments Summary Comments denies N/T PT-OP-J Posture/Palpation/Skin Start: 11/24/20 16:25 Freq: Status: Active Protocol: Document 11/25/20 11:16 [facility] (Rec: 11/25/20 17:00 [facility] [id number]) Posture Evaluation Position Standing L-Spine Posture Increased Lordosis Ankle/Foot Posture (L) Pronated,(R) Pronated Palpation Assessment Location psoas Palpation Location right Palpation Details nontender iliacus Palpation Location right Palpation Details nontender groin Palpation Location medial right Palpation Findings Tenderness PT-OP-K Range of Motion Start: 11/24/20 16:25 Freq: Status: Active Protocol: Document 11/25/20 11:16 [facility] (Rec: 11/25/20 17:00 [facility] [id number]) Hip Goniometric Range of Motion Hip right Hip ROM WFL No Flexion w/Knee Flexed 125 Straight Leg Raise 75 Extension 0 Abduction 35 Internal Rotation 40 External Rotation 80 Left Hip ROM WFL No Flexion w/Knee Flexed 125 Straight Leg Raise 80 Extension 0 Abduction 35 Internal Rotation 20 External Rotation 65 Hip ROM Limitations Hip ROM Limitations Soft Tissue Tightness,Pain Knee Goniometric Range of Motion Knee kianna Knee ROM WFL Yes PT-OP-L Special Tests Start: 11/24/20 16:25 Freq: Status: Active Protocol: Document 11/25/20 11:16 [facility] (Rec: 11/25/20 17:00 [facility] [id number]) Special Tests Hip Special Tests ingrid test Test Results negative kianna Anterior Labral Test Test Results negative kianna Scour Test Test Results negative kianna GRACE Test Results negative kianna PT-OP-M Strength Start: 11/24/20 16:25 Freq: Status: Active Protocol: Document 11/25/20 11:16 [facility] (Rec: 11/25/20 17:00 [facility] [id number]) Hip Strength Hip Manual Muscle Testing Right Flexion (L2) 4 Good Extension (S1) 3- Fair- Abduction 4 Good Adduction 4 Good External Rotation 4- Good- Internal Rotation 4 Good Comments pain with resisted flexion and extension Left Flexion (L2) 4 Good Extension (S1) 3- Fair- Abduction 4 Good Adduction 4 Good External Rotation 4- Good- Internal Rotation 4 Good Knee Strength Knee Manual Muscle Testing kianna Flexion (S2) 5 Normal Extension (L3) 5 Normal PT-OP-Q Treatments Start: 11/24/20 16:25 Freq: Status: Active Protocol: Document 02/24/21 09:08 [facility] (Rec: 02/24/21 09:27 [facility] [id number]) Cardio Equipment Recumbent Stepper (Sci-Fit) Duration (Minutes) 10 Resistance 3 Seat Position 10 Other cues for neutral LE alignment Gym Equipment Shuttle Recovery Unilateral Squats Details single leg squats Resistance 37# Shuttle Recovery Platform Stable Reps/Time 2x10 Bilateral Squats Details bilateral squats Resistance 75 lbs Shuttle Recovery Platform Stable Reps/Time 2 x 10 Manual Therapy Treatment Soft Tissue Mobilization 2 Body Location IT band Mobilization Type Instrument Assisted Comments massage stick (white) 1 Body Location adductor, gracilis, and sartorius tendons and musculature, iliopsoas, quad Mobilization Type Instrument Assisted,Myofascial Release,Strumming Intensity/Depth Deep Body Position Hooklying Comments massage roller Joint Mobilizations 1 Joint right hip posterior and inferior glides Grade II Body Position Hooklying Reps/Duration 5 min Comments denied pain Self-Care/Home Management Treatment Education Patient Education Home Exercise Program Other Education add resisted walking to HEP PT-OP-R Modalities Start: 11/24/20 16:25 Freq: Status: Active Protocol: Document 02/24/21 09:08 [facility] (Rec: 02/24/21 09:27 [facility] [id number]) Hot Pack/Cold Pack Treatment Hot Pack Location right groin Patient Position Hooklying Treatment Duration (minutes) 15 Patient Tolerance Good Ultrasound Therapy Treatment right medial groin Treatment Duration (minutes) 8 Patient Position Supine Coupling Medium Ultrasound Gel Applicator Size (cm2) 2 Frequency Setting (mHz) 3 Mode Setting Continuous Duty Cycle 100% Intensity Setting (w/cm2) 1.2 PT-OP-T Assessment and Plan Start: 11/24/20 16:25 Freq: Status: Active Protocol: Document 02/24/21 09:08 [facility] (Rec: 02/24/21 09:27 [facility] [id number]) Physical Therapy Assessment Goals Three Impairment Decreased activity tolerance: lower extremity functional scale 14% Short Term Goal (STG) Improve LEFS to at least 30% 01/11/21: Improved to 56% STG Duration goal met Halfway Goal (LTG) Improve LEFS to at least 60% as measure of improved activity tolerance 01/10/21: 56% LTG Duration 03/06/21 Two Impairment antalgic gait, unable to alternate feet ascending stairs Short Term Goal (STG) Patient able to ambulate without a limp with least restrictive device 01/11/21: patient ambulating with minimal limp with no device, mostly met. STG Duration partially met Halfway Goal (LTG) Patient able to ambulate without a limp without a device and with alternating pattern on stairs 01/20/21: goal progress, has habitual limp, improved with cues; verbal, and visual LTG Duration 03/06/21 One Impairment Pain right groin 12/31 Short Term Goal (STG) Decrease pain to no greater than 3/10 01/11/21: some goal progress, pain 1-2 at rest now, but still as high as 6/10 when gets up after sitting STG Duration partially met Halfway Goal (LTG) Decrease pain to no greater than 1/10 01/20/21: goal progress, still most painful when moving from sit to stand, but improved, especially with addition of joint mobilization right hip into inferior and posterior glide LTG Duration 03/06/21 Assessment Summary Assessment Steady progress, added resisted walking to HEP Physical Therapy Plan Frequency and Duration Frequency of Treatment 2x/Week Duration of Treatment 6 weeks Plan of Care Start Date 01/20/21 Plan of Care End Date 03/06/21 Therapeutic Interventions Therapeutic Interventions Gait Training,Home Exercise Program,Joint Mobilizations, Manual Therapy,Neuromuscular Re-education,Patient/Caregiver Education,Self-Care/Home Management,Soft Tissue Mobilization,Therapeutic Activities,Therapeutic Exercises Modalities Cold Pack/Ice Massage,Hot Packs,Infrared Therapy, Iontophoresis,Ultrasound Next Visit Focus/Plan Next Note Type Treatment Note Next Visit Plan RUPERT [facility]ESS[facility], continue ultrasound, manual treatment, ther ex progression. Continue gait training.
--- NOTE | 2021-03-02 16:41 | PT.OTN ---
Current Diagnoses Strain of muscle, fascia and tendon of right hip, initial encounter (03/01/21) Physical Therapy Treatment Note PT-OP-A Visit Information Start: 11/24/20 16:25 Freq: Status: Active Protocol: Document 03/01/21 09:05 [facility] (Rec: 03/01/21 10:30 [facility] [id number]) Out-Patient Physical Therapy Visit Information Visit Information Visit Type Treatment Note Visit Start Time 09:00 Visit Stop Time 09:58 Total Visit Minutes 58 Visit Number 18 PT-OP-B Current Condition Start: 11/24/20 16:25 Freq: Status: Active Protocol: Document 01/20/21 14:30 [facility] (Rec: 01/20/21 15:23 [facility] [id number]) Current Condition History of Current Condition Onset Date May 2020 Current Complaints groin pain History of Current Condition Pain started 1 month after fall down 7 stairs, right leg got caught behind, had scrape and bone bruise lower right LE . Landed with left leg in front of her, right leg bent back behind and internally rotated. Started having ischial tuberosity pain 1 month after fall, then states pain began to zig zag around leg, then groin pain. Jacinto now primarily groin. States unable to alternate LE's going up stairs, but can going down . States her groin seizes up when she goes from prolonged sitting to standing, then works itself out a little. Denies N/T, tingling. Prior Treatments and Tests No imaging. PT-OP-C Subjective Start: 11/24/20 16:25 Freq: Status: Active Protocol: Document 03/01/21 09:05 [facility] (Rec: 03/02/21 16:41 [facility] [id number]) OP-PT Subjective Patient Comments Patient Comments Improved compliance to HEP. Patient Reported Progress Improving PT-OP-G Mobility & Gait Start: 11/24/20 16:25 Freq: Status: Active Protocol: Document 11/25/20 11:16 [facility] (Rec: 11/25/20 17:00 [facility] [id number]) OP Mobility Evaluation Bed Mobility Supine to and from Sit painful Transfers Sit to Stand painful, needs use of UE's OP Gait Assessment Gait Gait Assistance Required: Independent Assistive Devices Orthotic/Prosthetic Devices or Brace: No Gait Deviations General Gait Pattern Antalgic,Lateral Trunk Lean Factors Limiting Gait Function Factors Limiting Gait Function Pain Stair Climbing Evaluation Evaluation Level of Assist On Stairs Independent Devices Stair Climbing Assistive Devices Left Railing,Right Railing Comments Stair Climbing Comments step-to ascending, alternating descending both with bilateral UE support PT-OP-H Neuro Start: 11/24/20 16:25 Freq: Status: Active Protocol: Document 11/25/20 11:16 [facility] (Rec: 11/25/20 17:00 [facility] [id number]) Sensation Evaluation Gross Sensation Gross Sensation WNL Comments Summary Comments denies N/T PT-OP-J Posture/Palpation/Skin Start: 11/24/20 16:25 Freq: Status: Active Protocol: Document 11/25/20 11:16 [facility] (Rec: 11/25/20 17:00 [facility] [id number]) Posture Evaluation Position Standing L-Spine Posture Increased Lordosis Ankle/Foot Posture (L) Pronated,(R) Pronated Palpation Assessment Location psoas Palpation Location right Palpation Details nontender iliacus Palpation Location right Palpation Details nontender groin Palpation Location medial right Palpation Findings Tenderness PT-OP-K Range of Motion Start: 11/24/20 16:25 Freq: Status: Active Protocol: Document 11/25/20 11:16 [facility] (Rec: 11/25/20 17:00 [facility] [id number]) Hip Goniometric Range of Motion Hip right Hip ROM WFL No Flexion w/Knee Flexed 125 Straight Leg Raise 75 Extension 0 Abduction 35 Internal Rotation 40 External Rotation 80 Left Hip ROM WFL No Flexion w/Knee Flexed 125 Straight Leg Raise 80 Extension 0 Abduction 35 Internal Rotation 20 External Rotation 65 Hip ROM Limitations Hip ROM Limitations Soft Tissue Tightness,Pain Knee Goniometric Range of Motion Knee kianna Knee ROM WFL Yes PT-OP-L Special Tests Start: 11/24/20 16:25 Freq: Status: Active Protocol: Document 11/25/20 11:16 [facility] (Rec: 11/25/20 17:00 [facility] [id number]) Special Tests Hip Special Tests ingrid test Test Results negative kianna Anterior Labral Test Test Results negative kianna Scour Test Test Results negative kianna GRACE Test Results negative kianna PT-OP-M Strength Start: 11/24/20 16:25 Freq: Status: Active Protocol: Document 11/25/20 11:16 [facility] (Rec: 11/25/20 17:00 [facility] [id number]) Hip Strength Hip Manual Muscle Testing Right Flexion (L2) 4 Good Extension (S1) 3- Fair- Abduction 4 Good Adduction 4 Good External Rotation 4- Good- Internal Rotation 4 Good Comments pain with resisted flexion and extension Left Flexion (L2) 4 Good Extension (S1) 3- Fair- Abduction 4 Good Adduction 4 Good External Rotation 4- Good- Internal Rotation 4 Good Knee Strength Knee Manual Muscle Testing kianna Flexion (S2) 5 Normal Extension (L3) 5 Normal PT-OP-Q Treatments Start: 11/24/20 16:25 Freq: Status: Active Protocol: Document 03/01/21 09:05 [facility] (Rec: 03/01/21 10:30 [facility] [id number]) Manual Therapy Treatment Soft Tissue Mobilization pin and stretch Body Location psoas Mobilization Type Sustained Pressure Comments with gentle IR/ER of hip 2 Body Location IT band Mobilization Type Instrument Assisted Comments massage stick (white) 1 Body Location adductor, gracilis, and sartorius tendons and musculature, iliopsoas, quad Mobilization Type Instrument Assisted,Myofascial Release,Strumming Intensity/Depth Deep Body Position Hooklying Comments massage roller Joint Mobilizations 1 Joint right hip posterior and inferior glides Grade II Body Position Hooklying Reps/Duration 5 min Comments denied pain PT-OP-R Modalities Start: 11/24/20 16:25 Freq: Status: Active Protocol: Document 03/01/21 09:05 [facility] (Rec: 03/01/21 10:30 [facility] [id number]) Ultrasound Therapy Treatment right medial groin Treatment Duration (minutes) 8 Patient Position Supine Coupling Medium Ultrasound Gel Applicator Size (cm2) 2 Frequency Setting (mHz) 3 Mode Setting Continuous Duty Cycle 100% Intensity Setting (w/cm2) 1.2 PT-OP-T Assessment and Plan Start: 11/24/20 16:25 Freq: Status: Active Protocol: Document 03/01/21 09:05 [facility] (Rec: 03/01/21 10:30 [facility] [id number]) Physical Therapy Assessment Goals Three Impairment Decreased activity tolerance: lower extremity functional scale 14% Short Term Goal (STG) Improve LEFS to at least 30% 01/11/21: Improved to 56% STG Duration goal met Senior Sourcing Manager Goal (LTG) Improve LEFS to at least 60% as measure of improved activity tolerance 01/10/21: 56% LTG Duration 03/06/21 Two Impairment antalgic gait, unable to alternate feet ascending stairs Short Term Goal (STG) Patient able to ambulate without a limp with least restrictive device 01/11/21: patient ambulating with minimal limp with no device, mostly met. STG Duration partially met Halfway Goal (LTG) Patient able to ambulate without a limp without a device and with alternating pattern on stairs 01/20/21: goal progress, has habitual limp, improved with cues; verbal, and visual LTG Duration 03/06/21 One Impairment Pain right groin 12/31 Short Term Goal (STG) Decrease pain to no greater than 3/10 01/11/21: some goal progress, pain 1-2 at rest now, but still as high as 6/10 when gets up after sitting STG Duration partially met Senior Sourcing Manager Goal (LTG) Decrease pain to no greater than 1/10 01/20/21: goal progress, still most painful when moving from sit to stand, but improved, especially with addition of joint mobilization right hip into inferior and posterior glide LTG Duration 03/06/21 Assessment Summary Assessment Improved compliance to HEP, spent today's session with manual techniques, ultrasound and moist heat with good tolerance, though painful trigger points in lateral quad and IT band treated with manual. Physical Therapy Plan Frequency and Duration Frequency of Treatment 2x/Week Duration of Treatment 6 weeks Plan of Care Start Date 01/20/21 Plan of Care End Date 03/06/21 Therapeutic Interventions Therapeutic Interventions Gait Training,Home Exercise Program,Joint Mobilizations, Manual Therapy,Neuromuscular Re-education,Patient/Caregiver Education,Self-Care/Home Management,Soft Tissue Mobilization,Therapeutic Activities,Therapeutic Exercises Modalities Cold Pack/Ice Massage,Hot Packs,Infrared Therapy, Iontophoresis,Ultrasound Next Visit Focus/Plan Next Note Type Re-Evaluation Next Visit Plan LE PNF, continue ultrasound, manual treatment, ther ex progression. Continue gait training.
--- NOTE | 2021-03-03 13:14 | PT.OTN ---
Current Diagnoses Strain of muscle, fascia and tendon of right hip, initial encounter (03/03/21) Physical Therapy Treatment Note PT-OP-A Visit Information Start: 11/24/20 16:25 Freq: Status: Active Protocol: Document 03/03/21 09:08 [facility] (Rec: 03/03/21 09:10 [facility] [id number]) Out-Patient Physical Therapy Visit Information Visit Information Visit Type Treatment Note Visit Start Time 09:02 Visit Stop Time 09:58 Total Visit Minutes 58 Visit Number 19 PT-OP-B Current Condition Start: 11/24/20 16:25 Freq: Status: Active Protocol: Document 01/20/21 14:30 [facility] (Rec: 01/20/21 15:23 [facility] [id number]) Current Condition History of Current Condition Onset Date May 2020 Current Complaints groin pain History of Current Condition Pain started 1 month after fall down 7 stairs, right leg got caught behind, had scrape and bone bruise lower right LE . Landed with left leg in front of her, right leg bent back behind and internally rotated. Started having ischial tuberosity pain 1 month after fall, then states pain began to zig zag around leg, then groin pain. Jacinto now primarily groin. States unable to alternate LE's going up stairs, but can going down . States her groin seizes up when she goes from prolonged sitting to standing, then works itself out a little. Denies N/T, tingling. Prior Treatments and Tests No imaging. PT-OP-C Subjective Start: 11/24/20 16:25 Freq: Status: Active Protocol: Document 03/03/21 09:08 [facility] (Rec: 03/03/21 09:10 [facility] [id number]) OP-PT Subjective Patient Comments Patient Comments Improvement after last session with increased manual techniques, painful initially but noted better mobility. PT-OP-G Mobility & Gait Start: 11/24/20 16:25 Freq: Status: Active Protocol: Document 11/25/20 11:16 [facility] (Rec: 11/25/20 17:00 [facility] [id number]) OP Mobility Evaluation Bed Mobility Supine to and from Sit painful Transfers Sit to Stand painful, needs use of UE's OP Gait Assessment Gait Gait Assistance Required: Independent Assistive Devices Orthotic/Prosthetic Devices or Brace: No Gait Deviations General Gait Pattern Antalgic,Lateral Trunk Lean Factors Limiting Gait Function Factors Limiting Gait Function Pain Stair Climbing Evaluation Evaluation Level of Assist On Stairs Independent Devices Stair Climbing Assistive Devices Left Railing,Right Railing Comments Stair Climbing Comments step-to ascending, alternating descending both with bilateral UE support PT-OP-H Neuro Start: 11/24/20 16:25 Freq: Status: Active Protocol: Document 11/25/20 11:16 [facility] (Rec: 11/25/20 17:00 [facility] [id number]) Sensation Evaluation Gross Sensation Gross Sensation WNL Comments Summary Comments denies N/T PT-OP-J Posture/Palpation/Skin Start: 11/24/20 16:25 Freq: Status: Active Protocol: Document 11/25/20 11:16 [facility] (Rec: 11/25/20 17:00 [facility] [id number]) Posture Evaluation Position Standing L-Spine Posture Increased Lordosis Ankle/Foot Posture (L) Pronated,(R) Pronated Palpation Assessment Location psoas Palpation Location right Palpation Details nontender iliacus Palpation Location right Palpation Details nontender groin Palpation Location medial right Palpation Findings Tenderness PT-OP-K Range of Motion Start: 11/24/20 16:25 Freq: Status: Active Protocol: Document 11/25/20 11:16 [facility] (Rec: 11/25/20 17:00 [facility] [id number]) Hip Goniometric Range of Motion Hip right Hip ROM WFL No Flexion w/Knee Flexed 125 Straight Leg Raise 75 Extension 0 Abduction 35 Internal Rotation 40 External Rotation 80 Left Hip ROM WFL No Flexion w/Knee Flexed 125 Straight Leg Raise 80 Extension 0 Abduction 35 Internal Rotation 20 External Rotation 65 Hip ROM Limitations Hip ROM Limitations Soft Tissue Tightness,Pain Knee Goniometric Range of Motion Knee kianna Knee ROM WFL Yes PT-OP-L Special Tests Start: 11/24/20 16:25 Freq: Status: Active Protocol: Document 11/25/20 11:16 [facility] (Rec: 11/25/20 17:00 [facility] [id number]) Special Tests Hip Special Tests ingrid test Test Results negative kianna Anterior Labral Test Test Results negative kianna Scour Test Test Results negative kianna GRACE Test Results negative kianna PT-OP-M Strength Start: 11/24/20 16:25 Freq: Status: Active Protocol: Document 11/25/20 11:16 [facility] (Rec: 11/25/20 17:00 [facility] [id number]) Hip Strength Hip Manual Muscle Testing Right Flexion (L2) 4 Good Extension (S1) 3- Fair- Abduction 4 Good Adduction 4 Good External Rotation 4- Good- Internal Rotation 4 Good Comments pain with resisted flexion and extension Left Flexion (L2) 4 Good Extension (S1) 3- Fair- Abduction 4 Good Adduction 4 Good External Rotation 4- Good- Internal Rotation 4 Good Knee Strength Knee Manual Muscle Testing kianna Flexion (S2) 5 Normal Extension (L3) 5 Normal PT-OP-Q Treatments Start: 11/24/20 16:25 Freq: Status: Active Protocol: Document 03/03/21 09:08 [facility] (Rec: 03/03/21 09:10 [facility] [id number]) Manual Therapy Treatment Soft Tissue Mobilization pin and stretch Body Location psoas Mobilization Type Sustained Pressure Comments with gentle IR/ER of hip 2 Body Location IT band Mobilization Type Instrument Assisted Comments massage stick (white) 1 Body Location adductor, gracilis, and sartorius tendons and musculature, iliopsoas, quad Mobilization Type Instrument Assisted,Myofascial Release,Strumming Intensity/Depth Deep Body Position Hooklying Comments massage roller Joint Mobilizations 1 Joint right hip posterior and inferior glides Grade II Body Position Hooklying Reps/Duration 5 min Comments denied pain PT-OP-R Modalities Start: 11/24/20 16:25 Freq: Status: Active Protocol: Document 03/03/21 09:08 [facility] (Rec: 03/03/21 09:10 [facility] [id number]) Ultrasound Therapy Treatment right medial groin Treatment Duration (minutes) 8 Patient Position Supine Coupling Medium Ultrasound Gel Applicator Size (cm2) 2 Frequency Setting (mHz) 3 Mode Setting Continuous Duty Cycle 100% Intensity Setting (w/cm2) 1.2 PT-OP-T Assessment and Plan Start: 11/24/20 16:25 Freq: Status: Active Protocol: Document 03/03/21 09:08 [facility] (Rec: 03/03/21 09:10 [facility] [id number]) Physical Therapy Assessment Goals Three Impairment Decreased activity tolerance: lower extremity functional scale 14% Short Term Goal (STG) Improve LEFS to at least 30% 01/11/21: Improved to 56% STG Duration goal met Fittings Tightener Goal (LTG) Improve LEFS to at least 60% as measure of improved activity tolerance 01/10/21: 56% LTG Duration 03/06/21 Two Impairment antalgic gait, unable to alternate feet ascending stairs Short Term Goal (STG) Patient able to ambulate without a limp with least restrictive device 01/11/21: patient ambulating with minimal limp with no device, mostly met. STG Duration partially met [facility]pc Goal (LTG) Patient able to ambulate without a limp without a device and with alternating pattern on stairs 01/20/21: goal progress, has habitual limp, improved with cues; verbal, and visual LTG Duration 03/06/21 One Impairment Pain right groin 12/31 Short Term Goal (STG) Decrease pain to no greater than 3/10 01/11/21: some goal progress, pain 1-2 at rest now, but still as high as 6/10 when gets up after sitting STG Duration partially met Fittings Tightener Goal (LTG) Decrease pain to no greater than 1/10 01/20/21: goal progress, still most painful when moving from sit to stand, but improved, especially with addition of joint mobilization right hip into inferior and posterior glide LTG Duration 03/06/21 Assessment Summary Assessment Improved mobility with increased manual techniques. Patient compliant to HEP. Cued to unlock knees with gait as noted during walk back to treatment room. Physical Therapy Plan Frequency and Duration Frequency of Treatment 2x/Week Duration of Treatment 6 weeks Plan of Care Start Date 01/20/21 Plan of Care End Date 03/06/21 Therapeutic Interventions Therapeutic Interventions Gait Training,Home Exercise Program,Joint Mobilizations, Manual Therapy,Neuromuscular Re-education,Patient/Caregiver Education,Self-Care/Home Management,Soft Tissue Mobilization,Therapeutic Activities,Therapeutic Exercises Modalities Cold Pack/Ice Massage,Hot Packs,Infrared Therapy, Iontophoresis,Ultrasound Next Visit Focus/Plan Next Note Type Re-Evaluation Next Visit Plan LE PNF, continue ultrasound, manual treatment, ther ex progression. Continue gait training. Assess status after 2 weeks without PT; on hold until PT returns from vacation .
--- NOTE | 2021-03-31 16:56 | PT.OTRE ---
Current Diagnoses Strain of muscle, fascia and tendon of right hip, initial encounter (03/31/21) Past Medical History (Last Updated 12/19/20 @ 10:08 by Isabell Fung DO) Asthma Cataract Chronic back pain CTS (carpal tunnel syndrome) Essential hypertension (04/25/17) Greater trochanteric bursitis of left hip H/O colonoscopy with polypectomy (~10/2020) Hypercalcemia Hyperparathyroidism Hypertension Left hamstring muscle strain Measles Obesity Osteoarthritis Varicose veins of left lower extremity Surgical History (Last Updated 12/19/20 @ 10:09 by Isabell Fung DO) Anesthesia H/O colonoscopy with polypectomy (~10/2020) History of knee replacement (2016) History of spinal fusion (06/2009) History of spinal fusion (2011) Status post parathyroidectomy (2015) Status post tonsillectomy and adenoidectomy (1947) Visit Care Team Role Provider Type Isabell Fung DO Attending Provider Physician Family Provider Primary Care Provider Referring Provider Specialty: [facility] Address: [address] [place] [address], [address], [facility] Email: [email or web address] Physical Therapy Re-Evaluation PT-OP-A Visit Information Start: 11/24/20 16:25 Freq: Status: Active Protocol: Document 03/31/21 13:48 [facility]AK (Rec: 03/31/21 14:09 SAK [id number]) Out-Patient Physical Therapy Visit Information Visit Information Visit Type Treatment Note Visit Start Time 13:45 Visit Stop Time 14:40 Total Visit Minutes 58 Visit Number 20 PT-OP-B Current Condition Start: 11/24/20 16:25 Freq: Status: Active Protocol: Document 01/20/21 14:30 SAK (Rec: 01/20/21 15:23 SAK [id number]) Current Condition History of Current Condition Onset Date May 2020 Current Complaints groin pain History of Current Condition Pain started 1 month after fall down 7 stairs, right leg got caught behind, had scrape and bone bruise lower right LE . Landed with left leg in front of her, right leg bent back behind and internally rotated. Started having ischial tuberosity pain 1 month after fall, then states pain began to zig zag around leg, then groin pain. Jacinto now primarily groin. States unable to alternate LE's going up stairs, but can going down . States her groin seizes up when she goes from prolonged sitting to standing, then works itself out a little. Denies N/T, tingling. Prior Treatments and Tests No imaging. PT-OP-C Subjective Start: 11/24/20 16:25 Freq: Status: Active Protocol: Document 03/31/21 13:48 [facility] (Rec: 03/31/21 14:09 [facility] [id number]) OP-PT Subjective Patient Comments Patient Comments Improvement after last session with increased manual techniques, painful initially but noted better mobility. Has seen chiropractor 2x and had massage therapy 1x. Compliant to HEP. Pain minimal today. Patient Questionnaires Lower Extremity Functional Scale LEFS Score 68 OP-PT Pain Assessment Pain Assessment Grid Paper Pain Assessment Grid Completed Yes Location right groin Pain Location Details 2-4/10 Scale Used Numeric (0 - 10) Description Aching,Pinching,Tender Frequency Intermittent Pain Aggravating Factors Changing Position,Standing, Walking,Stair Climbing Pain Alleviating Factors Inactivity PT-OP-G Mobility & Gait Start: 11/24/20 16:25 Freq: Status: Active Protocol: Document 11/25/20 11:16 [facility] (Rec: 11/25/20 17:00 [facility] [id number]) OP Mobility Evaluation Bed Mobility Supine to and from Sit painful Transfers Sit to Stand painful, needs use of UE's OP Gait Assessment Gait Gait Assistance Required: Independent Assistive Devices Orthotic/Prosthetic Devices or Brace: No Gait Deviations General Gait Pattern Antalgic,Lateral Trunk Lean Factors Limiting Gait Function Factors Limiting Gait Function Pain Stair Climbing Evaluation Evaluation Level of Assist On Stairs Independent Devices Stair Climbing Assistive Devices Left Railing,Right Railing Comments Stair Climbing Comments step-to ascending, alternating descending both with bilateral UE support PT-OP-H Neuro Start: 11/24/20 16:25 Freq: Status: Active Protocol: Document 11/25/20 11:16 [facility] (Rec: 11/25/20 17:00 [facility] [id number]) Sensation Evaluation Gross Sensation Gross Sensation WNL Comments Summary Comments denies N/T PT-OP-J Posture/Palpation/Skin Start: 11/24/20 16:25 Freq: Status: Active Protocol: Document 11/25/20 11:16 [facility] (Rec: 11/25/20 17:00 [facility] [id number]) Posture Evaluation Position Standing L-Spine Posture Increased Lordosis Ankle/Foot Posture (L) Pronated,(R) Pronated Palpation Assessment Location psoas Palpation Location right Palpation Details nontender iliacus Palpation Location right Palpation Details nontender groin Palpation Location medial right Palpation Findings Tenderness PT-OP-K Range of Motion Start: 11/24/20 16:25 Freq: Status: Active Protocol: Document 11/25/20 11:16 [facility] (Rec: 11/25/20 17:00 [facility] [id number]) Hip Goniometric Range of Motion Hip Measured in Degrees right Hip ROM WFL No Flexion w/Knee Flexed 125 Straight Leg Raise 75 Extension 0 Abduction 35 Internal Rotation 40 External Rotation 80 Left Hip ROM WFL No Flexion w/Knee Flexed 125 Straight Leg Raise 80 Extension 0 Abduction 35 Internal Rotation 20 External Rotation 65 Hip ROM Limitations Hip ROM Limitations Soft Tissue Tightness,Pain Knee Goniometric Range of Motion Knee Measured in Degrees kianna Knee ROM WFL Yes PT-OP-L Special Tests Start: 11/24/20 16:25 Freq: Status: Active Protocol: Document 11/25/20 11:16 [facility] (Rec: 11/25/20 17:00 [facility] [id number]) Special Tests Hip Special Tests ingrid test Test Results negative kianna Anterior Labral Test Test Results negative kianna Scour Test Test Results negative kianna GRACE Test Results negative kianna PT-OP-M Strength Start: 11/24/20 16:25 Freq: Status: Active Protocol: Document 11/25/20 11:16 [facility] (Rec: 11/25/20 17:00 [facility] [id number]) Hip Strength Hip Manual Muscle Testing Right Flexion (L2) 4 Good Extension (S1) 3- Fair- Abduction 4 Good Adduction 4 Good External Rotation 4- Good- Internal Rotation 4 Good Comments pain with resisted flexion and extension Left Flexion (L2) 4 Good Extension (S1) 3- Fair- Abduction 4 Good Adduction 4 Good External Rotation 4- Good- Internal Rotation 4 Good Knee Strength Knee Manual Muscle Testing kianna Flexion (S2) 5 Normal Extension (L3) 5 Normal PT-OP-Q Treatments Start: 11/24/20 16:25 Freq: Status: Active Protocol: Document 03/31/21 13:48 [facility]AK (Rec: 03/31/21 14:09 [facility] [id number]) Cardio Equipment Recumbent Stepper (Sci-Fit) Duration (Minutes) 10 Resistance 3 Seat Position 10 Other cues for neutral LE alignment Therapeutic Exercises Standing Exercises hip flexion Reps/Minutes 10x 3 Comments cues for neutral postural alignment, no leaning Manual Therapy Treatment Soft Tissue Mobilization pin and stretch Body Location psoas Mobilization Type Sustained Pressure Comments with gentle IR/ER of hip 2 Body Location IT band Mobilization Type Instrument Assisted Comments massage stick (white) 1 Body Location adductor, gracilis, and sartorius tendons and musculature, iliopsoas, quad Mobilization Type Instrument Assisted,Myofascial Release,Strumming Intensity/Depth Deep Body Position Hooklying Comments massage roller Joint Mobilizations 1 Joint right hip posterior and inferior glides Grade II Body Position Hooklying Reps/Duration 5 min Comments denied pain PT-OP-R Modalities Start: 11/24/20 16:25 Freq: Status: Active Protocol: Document 03/31/21 13:48 [facility] (Rec: 03/31/21 14:09 [facility] [id number]) Ultrasound Therapy Treatment right medial groin Treatment Duration (minutes) 8 Patient Position Supine Coupling Medium Ultrasound Gel Applicator Size (cm2) 2 Frequency Setting (mHz) 3 Mode Setting Continuous Duty Cycle 100% Intensity Setting (w/cm2) 1.2 PT-OP-T Assessment and Plan Start: 11/24/20 16:25 Freq: Status: Active Protocol: Document 03/31/21 13:48 [facility] (Rec: 03/31/21 14:09 [facility] [id number]) Physical Therapy Assessment Goals Three Impairment Decreased activity tolerance: lower extremity functional scale 14% Short Term Goal (STG) Improve LEFS to at least 30% 01/11/21: Improved to 56% STG Duration goal met [employer] Goal (LTG) Improve LEFS to at least 60% as measure of improved activity tolerance 01/10/21: 56% 03/31/21: goal met LTG Duration 04/22/21 Two Impairment antalgic gait, unable to alternate feet ascending stairs Short Term Goal (STG) Patient able to ambulate without a limp with least restrictive device 01/11/21: patient ambulating with minimal limp with no device, mostly met. STG Duration goal met [employer] Goal (LTG) Patient able to ambulate without a limp without a device at usual speed and with alternating pattern on stairs 01/20/21: goal progress, has habitual limp, improved with cues; verbal, and visual 03/31/21: continued goal progress, minimal limp with slowed, focused gait though unable to ambulate at usual speed without increase in gait deviations. No use of assistive device. LTG Duration 05/15/21 One Impairment Pain right groin 12/31 Short Term Goal (STG) Decrease pain to no greater than 3/10 01/11/21: some goal progress, pain 1-2 at rest now, but still as high as 6/10 when gets up after sitting 03/31/21: goal met STG Duration goal met [facility] Goal (LTG) Decrease pain to no greater than 1/10 01/20/21: goal progress, still most painful when moving from sit to stand, but improved, especially with addition of joint mobilization right hip into inferior and posterior glide 03/31/21: good goal progress, pain varies 2-4/10, usually at low level LTG Duration 05/15/21 Assessment Summary Assessment Improved gait mechanics with minimal limp or lateral sway, minimal knee hyperextension. Improved hip strength, decreased pain. LEFS increased from initial 14 to 68% today. Continues to benefit from PT. Recommend further skilled PT for 3 weeks , then anticipate transition to self- management. Physical Therapy Plan Frequency and Duration Frequency of Treatment 2x/Week Duration of Treatment 3 weeks Plan of Care Start Date 03/31/21 Plan of Care End Date 04/22/21 Therapeutic Interventions Therapeutic Interventions Gait Training,Home Exercise Program,Joint Mobilizations, Manual Therapy,Neuromuscular Re-education,Patient/Caregiver Education,Self-Care/Home Management,Soft Tissue Mobilization,Therapeutic Activities,Therapeutic Exercises Modalities Cold Pack/Ice Massage,Hot Packs,Infrared Therapy, Iontophoresis,Ultrasound Next Visit Focus/Plan Next Note Type Re-Evaluation Next Visit Plan Continue ultrasound, manual treatment, functional ther ex progression, gait and functional mobility retraining .
--- NOTE | 2021-04-05 13:21 | PT.OTN ---
Current Diagnoses Strain of muscle, fascia and tendon of right hip, initial encounter (04/05/21) Physical Therapy Treatment Note PT-OP-A Visit Information Start: 11/24/20 16:25 Freq: Status: Active Protocol: Document 04/05/21 09:49 [facility] (Rec: 04/05/21 10:32 [facility] [id number]) Out-Patient Physical Therapy Visit Information Visit Information Visit Type Treatment Note Visit Start Time 09:45 Visit Stop Time 10:42 Total Visit Minutes 57 Visit Number 21 PT-OP-B Current Condition Start: 11/24/20 16:25 Freq: Status: Active Protocol: Document 01/20/21 14:30 [facility]AK (Rec: 01/20/21 15:23 [facility] [id number]) Current Condition History of Current Condition Onset Date May 2020 Current Complaints groin pain History of Current Condition Pain started 1 month after fall down 7 stairs, right leg got caught behind, had scrape and bone bruise lower right LE . Landed with left leg in front of her, right leg bent back behind and internally rotated. Started having ischial tuberosity pain 1 month after fall, then states pain began to zig zag around leg, then groin pain. [place]into now primarily groin. States unable to alternate LE's going up stairs, but can going down . States her groin seizes up when she goes from prolonged sitting to standing, then works itself out a little. Denies N/T, tingling. Prior Treatments and Tests No imaging. PT-OP-C Subjective Start: 11/24/20 16:25 Freq: Status: Active Protocol: Document 04/05/21 09:49 [facility] (Rec: 04/05/21 10:32 [facility] [id number]) OP-PT Subjective Patient Comments Patient Comments No new c/o, continues to try to do HEP. Occasional pain when walking, moving in bed. PT-OP-G Mobility & Gait Start: 11/24/20 16:25 Freq: Status: Active Protocol: Document 11/25/20 11:16 [facility] (Rec: 11/25/20 17:00 [facility] [id number]) OP Mobility Evaluation Bed Mobility Supine to and from Sit painful Transfers Sit to Stand painful, needs use of UE's OP Gait Assessment Gait Gait Assistance Required: Independent Assistive Devices Orthotic/Prosthetic Devices or Brace: No Gait Deviations General Gait Pattern Antalgic,Lateral Trunk Lean Factors Limiting Gait Function Factors Limiting Gait Function Pain Stair Climbing Evaluation Evaluation Level of Assist On Stairs Independent Devices Stair Climbing Assistive Devices Left Railing,Right Railing Comments Stair Climbing Comments step-to ascending, alternating descending both with bilateral UE support PT-OP-H Neuro Start: 11/24/20 16:25 Freq: Status: Active Protocol: Document 11/25/20 11:16 [facility] (Rec: 11/25/20 17:00 [facility] [id number]) Sensation Evaluation Gross Sensation Gross Sensation WNL Comments Summary Comments denies N/T PT-OP-J Posture/Palpation/Skin Start: 11/24/20 16:25 Freq: Status: Active Protocol: Document 11/25/20 11:16 [facility]AK (Rec: 11/25/20 17:00 [facility] [id number]) Posture Evaluation Position Standing L-Spine Posture Increased Lordosis Ankle/Foot Posture (L) Pronated,(R) Pronated Palpation Assessment Location psoas Palpation Location right Palpation Details nontender iliacus Palpation Location right Palpation Details nontender groin Palpation Location medial right Palpation Findings Tenderness PT-OP-K Range of Motion Start: 11/24/20 16:25 Freq: Status: Active Protocol: Document 11/25/20 11:16 [facility]AK (Rec: 11/25/20 17:00 [facility] [id number]) Hip Goniometric Range of Motion Hip right Hip ROM WFL No Flexion w/Knee Flexed 125 Straight Leg Raise 75 Extension 0 Abduction 35 Internal Rotation 40 External Rotation 80 Left Hip ROM WFL No Flexion w/Knee Flexed 125 Straight Leg Raise 80 Extension 0 Abduction 35 Internal Rotation 20 External Rotation 65 Hip ROM Limitations Hip ROM Limitations Soft Tissue Tightness,Pain Knee Goniometric Range of Motion Knee kianna Knee ROM WFL Yes PT-OP-L Special Tests Start: 11/24/20 16:25 Freq: Status: Active Protocol: Document 11/25/20 11:16 [facility]AK (Rec: 11/25/20 17:00 [facility] [id number]) Special Tests Hip Special Tests ingrid test Test Results negative kianna Anterior Labral Test Test Results negative kianna Scour Test Test Results negative kianna GRACE Test Results negative kianna PT-OP-M Strength Start: 11/24/20 16:25 Freq: Status: Active Protocol: Document 11/25/20 11:16 [facility] (Rec: 11/25/20 17:00 [facility] [id number]) Hip Strength Hip Manual Muscle Testing Right Flexion (L2) 4 Good Extension (S1) 3- Fair- Abduction 4 Good Adduction 4 Good External Rotation 4- Good- Internal Rotation 4 Good Comments pain with resisted flexion and extension Left Flexion (L2) 4 Good Extension (S1) 3- Fair- Abduction 4 Good Adduction 4 Good External Rotation 4- Good- Internal Rotation 4 Good Knee Strength Knee Manual Muscle Testing kianna Flexion (S2) 5 Normal Extension (L3) 5 Normal PT-OP-Q Treatments Start: 11/24/20 16:25 Freq: Status: Active Protocol: Document 04/05/21 09:49 [facility] (Rec: 04/05/21 10:32 [facility] [id number]) Cardio Equipment Recumbent Stepper (Sci-Fit) Duration (Minutes) 10 Resistance 3 Seat Position 10 Other cues for neutral LE alignment Gym Equipment Shuttle Recovery Unilateral Squats Details single leg squats Resistance 37# Shuttle Recovery Platform Stable Reps/Time 2x10 Bilateral Squats Details bilateral squats Resistance 75 lbs Shuttle Recovery Platform Stable Reps/Time 2 x 10 Therapeutic Exercises Standing Exercises hip flexion Reps/Minutes 10x 2 Comments cues for neutral postural alignment, no leaning, slow with 5 sec hold Manual Therapy Treatment Soft Tissue Mobilization pin and stretch Body Location psoas Mobilization Type Sustained Pressure Comments with gentle IR/ER of hip 2 Body Location IT band Mobilization Type Instrument Assisted Comments massage stick (white) 1 Body Location adductor, gracilis, and sartorius tendons and musculature, iliopsoas, quad Mobilization Type Instrument Assisted,Myofascial Release,Strumming Intensity/Depth Deep Body Position Hooklying Comments massage roller PT-OP-R Modalities Start: 11/24/20 16:25 Freq: Status: Active Protocol: Document 04/05/21 09:49 [facility] (Rec: 04/05/21 10:32 [facility] [id number]) Ultrasound Therapy Treatment right medial groin Treatment Duration (minutes) 8 Patient Position Supine Coupling Medium Ultrasound Gel Applicator Size (cm2) 2 Frequency Setting (mHz) 3 Mode Setting Continuous Duty Cycle 100% Intensity Setting (w/cm2) 1.2 PT-OP-T Assessment and Plan Start: 11/24/20 16:25 Freq: Status: Active Protocol: Document 04/05/21 09:49 [facility] (Rec: 04/05/21 10:32 [facility] [id number]) Physical Therapy Assessment Goals Three Impairment Decreased activity tolerance: lower extremity functional scale 14% Short Term Goal (STG) Improve LEFS to at least 30% 01/11/21: Improved to 56% STG Duration goal met [facility] Home Goal (LTG) Improve LEFS to at least 60% as measure of improved activity tolerance 01/10/21: 56% 03/31/21: goal met LTG Duration 04/22/21 Two Impairment antalgic gait, unable to alternate feet ascending stairs Short Term Goal (STG) Patient able to ambulate without a limp with least restrictive device 01/11/21: patient ambulating with minimal limp with no device, mostly met. STG Duration goal met [facility] Home Goal (LTG) Patient able to ambulate without a limp without a device at usual speed and with alternating pattern on stairs 01/20/21: goal progress, has habitual limp, improved with cues; verbal, and visual 03/31/21: continued goal progress, minimal limp with slowed, focused gait though unable to ambulate at usual speed without increase in gait deviations. No use of assistive device. LTG Duration 05/15/21 One Impairment Pain right groin 12/31 Short Term Goal (STG) Decrease pain to no greater than 3/10 01/11/21: some goal progress, pain 1-2 at rest now, but still as high as 6/10 when gets up after sitting 03/31/21: goal met STG Duration goal met [facility] Home Goal (LTG) Decrease pain to no greater than 1/10 01/20/21: goal progress, still most painful when moving from sit to stand, but improved, especially with addition of joint mobilization right hip into inferior and posterior glide 03/31/21: good goal progress, pain varies 2-4/10, usually at low level LTG Duration 05/15/21 Assessment Summary Assessment with SLS left noting posterior rotation of right pelvis and LE, some improvement with verbal and visual feedback. Pain intermittant, sometimes with walking, sometimes with bed mobility, not fully predictable. Physical Therapy Plan Frequency and Duration Frequency of Treatment 2x/Week Duration of Treatment 3 weeks Plan of Care Start Date 03/31/21 Plan of Care End Date 04/22/21 Therapeutic Interventions Therapeutic Interventions Gait Training,Home Exercise Program,Joint Mobilizations, Manual Therapy,Neuromuscular Re-education,Patient/Caregiver Education,Self-Care/Home Management,Soft Tissue Mobilization,Therapeutic Activities,Therapeutic Exercises Modalities Cold Pack/Ice Massage,Hot Packs,Infrared Therapy, Iontophoresis,Ultrasound Next Visit Focus/Plan Next Note Type Treatment Note Next Visit Plan Continue ultrasound, manual treatment, functional ther ex progression, gait and functional mobility retraining .
--- NOTE | 2021-04-07 12:09 | PT.OTN ---
Current Diagnoses Strain of muscle, fascia and tendon of right hip, initial encounter (04/07/21) Physical Therapy Treatment Note PT-OP-A Visit Information Start: 11/24/20 16:25 Freq: Status: Active Protocol: Document 04/07/21 11:22 [facility] (Rec: 04/07/21 11:28 [facility] [id number]) Out-Patient Physical Therapy Visit Information Visit Information Visit Type Treatment Note Visit Start Time 11:15 Visit Stop Time 12:14 Total Visit Minutes 57 Visit Number 22 PT-OP-B Current Condition Start: 11/24/20 16:25 Freq: Status: Active Protocol: Document 01/20/21 14:30 [facility] (Rec: 01/20/21 15:23 [facility] [id number]) Current Condition History of Current Condition Onset Date May 2020 Current Complaints groin pain History of Current Condition Pain started 1 month after fall down 7 stairs, right leg got caught behind, had scrape and bone bruise lower right LE . Landed with left leg in front of her, right leg bent back behind and internally rotated. Started having ischial tuberosity pain 1 month after fall, then states pain began to zig zag around leg, then groin pain. Jacinto now primarily groin. States unable to alternate LE's going up stairs, but can going down . States her groin seizes up when she goes from prolonged sitting to standing, then works itself out a little. Denies N/T, tingling. Prior Treatments and Tests No imaging. PT-OP-C Subjective Start: 11/24/20 16:25 Freq: Status: Active Protocol: Document 04/07/21 11:22 [facility] (Rec: 04/07/21 11:28 [facility] [id number]) OP-PT Subjective Patient Comments Patient Comments Pain continues to be variable, working on walking without compensation. PT-OP-G Mobility & Gait Start: 11/24/20 16:25 Freq: Status: Active Protocol: Document 11/25/20 11:16 [facility] (Rec: 11/25/20 17:00 [facility] [id number]) OP Mobility Evaluation Bed Mobility Supine to and from Sit painful Transfers Sit to Stand painful, needs use of UE's OP Gait Assessment Gait Gait Assistance Required: Independent Assistive Devices Orthotic/Prosthetic Devices or Brace: No Gait Deviations General Gait Pattern Antalgic,Lateral Trunk Lean Factors Limiting Gait Function Factors Limiting Gait Function Pain Stair Climbing Evaluation Evaluation Level of Assist On Stairs Independent Devices Stair Climbing Assistive Devices Left Railing,Right Railing Comments Stair Climbing Comments step-to ascending, alternating descending both with bilateral UE support PT-OP-H Neuro Start: 11/24/20 16:25 Freq: Status: Active Protocol: Document 11/25/20 11:16 [facility] (Rec: 11/25/20 17:00 [facility] [id number]) Sensation Evaluation Gross Sensation Gross Sensation WNL Comments Summary Comments denies N/T PT-OP-J Posture/Palpation/Skin Start: 11/24/20 16:25 Freq: Status: Active Protocol: Document 11/25/20 11:16 [facility] (Rec: 11/25/20 17:00 [facility] [id number]) Posture Evaluation Position Standing L-Spine Posture Increased Lordosis Ankle/Foot Posture (L) Pronated,(R) Pronated Palpation Assessment Location psoas Palpation Location right Palpation Details nontender iliacus Palpation Location right Palpation Details nontender groin Palpation Location medial right Palpation Findings Tenderness PT-OP-K Range of Motion Start: 11/24/20 16:25 Freq: Status: Active Protocol: Document 11/25/20 11:16 [facility] (Rec: 11/25/20 17:00 [facility] [id number]) Hip Goniometric Range of Motion Hip right Hip ROM WFL No Flexion w/Knee Flexed 125 Straight Leg Raise 75 Extension 0 Abduction 35 Internal Rotation 40 External Rotation 80 Left Hip ROM WFL No Flexion w/Knee Flexed 125 Straight Leg Raise 80 Extension 0 Abduction 35 Internal Rotation 20 External Rotation 65 Hip ROM Limitations Hip ROM Limitations Soft Tissue Tightness,Pain Knee Goniometric Range of Motion Knee kianna Knee ROM WFL Yes PT-OP-L Special Tests Start: 11/24/20 16:25 Freq: Status: Active Protocol: Document 11/25/20 11:16 [facility] (Rec: 11/25/20 17:00 [facility] [id number]) Special Tests Hip Special Tests ingrid test Test Results negative kianna Anterior Labral Test Test Results negative kianna Scour Test Test Results negative kianna GRACE Test Results negative kianna PT-OP-M Strength Start: 11/24/20 16:25 Freq: Status: Active Protocol: Document 11/25/20 11:16 [facility] (Rec: 11/25/20 17:00 [facility] [id number]) Hip Strength Hip Manual Muscle Testing Right Flexion (L2) 4 Good Extension (S1) 3- Fair- Abduction 4 Good Adduction 4 Good External Rotation 4- Good- Internal Rotation 4 Good Comments pain with resisted flexion and extension Left Flexion (L2) 4 Good Extension (S1) 3- Fair- Abduction 4 Good Adduction 4 Good External Rotation 4- Good- Internal Rotation 4 Good Knee Strength Knee Manual Muscle Testing kianna Flexion (S2) 5 Normal Extension (L3) 5 Normal PT-OP-Q Treatments Start: 11/24/20 16:25 Freq: Status: Active Protocol: Document 04/07/21 11:22 [facility] (Rec: 04/07/21 11:28 [facility] [id number]) Cardio Equipment Recumbent Stepper (Sci-Fit) Duration (Minutes) 10 Resistance 2.5-3 Seat Position 10 Other cues for neutral LE alignment, 1.54 miles Gym Equipment Shuttle Recovery Unilateral Squats Details single leg squats Resistance 37# Shuttle Recovery Platform Stable Reps/Time 2x10 Bilateral Squats Details bilateral squats Resistance 75 lbs Shuttle Recovery Platform Stable Reps/Time 2 x 10 Manual Therapy Treatment Soft Tissue Mobilization pin and stretch Body Location psoas Mobilization Type Sustained Pressure Comments with gentle IR/ER of hip 2 Body Location IT band Mobilization Type Instrument Assisted Comments massage stick (white) 1 Body Location adductor, gracilis, and sartorius tendons and musculature, iliopsoas, quad Mobilization Type Instrument Assisted,Myofascial Release,Strumming Intensity/Depth Deep Body Position Hooklying Comments massage roller Joint Mobilizations 1 Joint right hip posterior and inferior glides Grade II Body Position Hooklying Reps/Duration 5 min Comments denied pain PT-OP-R Modalities Start: 11/24/20 16:25 Freq: Status: Active Protocol: Document 04/07/21 11:22 [facility] (Rec: 04/07/21 11:28 [facility] [id number]) Ultrasound Therapy Treatment right medial groin Treatment Duration (minutes) 8 Patient Position Supine Coupling Medium Ultrasound Gel Applicator Size (cm2) 2 Frequency Setting (mHz) 3 Mode Setting Continuous Duty Cycle 100% Intensity Setting (w/cm2) 1.2 PT-OP-T Assessment and Plan Start: 11/24/20 16:25 Freq: Status: Active Protocol: Document 04/07/21 11:22 [facility] (Rec: 04/07/21 11:28 [facility] [id number]) Physical Therapy Assessment Goals Three Impairment Decreased activity tolerance: lower extremity functional scale 14% Short Term Goal (STG) Improve LEFS to at least 30% 01/11/21: Improved to 56% STG Duration goal met Skilled Nursing Goal (LTG) Improve LEFS to at least 60% as measure of improved activity tolerance 01/10/21: 56% 03/31/21: goal met LTG Duration 04/22/21 Two Impairment antalgic gait, unable to alternate feet ascending stairs Short Term Goal (STG) Patient able to ambulate without a limp with least restrictive device 01/11/21: patient ambulating with minimal limp with no device, mostly met. STG Duration goal met [employer] Goal (LTG) Patient able to ambulate without a limp without a device at usual speed and with alternating pattern on stairs 01/20/21: goal progress, has habitual limp, improved with cues; verbal, and visual 03/31/21: continued goal progress, minimal limp with slowed, focused gait though unable to ambulate at usual speed without increase in gait deviations. No use of assistive device. LTG Duration 05/15/21 One Impairment Pain right groin 12/31 Short Term Goal (STG) Decrease pain to no greater than 3/10 01/11/21: some goal progress, pain 1-2 at rest now, but still as high as 6/10 when gets up after sitting 03/31/21: goal met STG Duration goal met [employer] Goal (LTG) Decrease pain to no greater than 1/10 01/20/21: goal progress, still most painful when moving from sit to stand, but improved, especially with addition of joint mobilization right hip into inferior and posterior glide 03/31/21: good goal progress, pain varies 2-4/10, usually at low level LTG Duration 05/15/21 Assessment Summary Assessment Decrease in soft tissue tightness with manual treatment, mild compensation noted with gait, improves with cues. Physical Therapy Plan Frequency and Duration Frequency of Treatment 2x/Week Duration of Treatment 3 weeks Plan of Care Start Date 03/31/21 Plan of Care End Date 04/22/21 Therapeutic Interventions Therapeutic Interventions Gait Training,Home Exercise Program,Joint Mobilizations, Manual Therapy,Neuromuscular Re-education,Patient/Caregiver Education,Self-Care/Home Management,Soft Tissue Mobilization,Therapeutic Activities,Therapeutic Exercises Modalities Cold Pack/Ice Massage,Hot Packs,Infrared Therapy, Iontophoresis,Ultrasound Next Visit Focus/Plan Next Note Type Treatment Note Next Visit Plan Continue ultrasound, manual treatment, functional ther ex progression, gait and functional mobility retraining .
--- NOTE | 2021-04-12 13:25 | PT.OTN ---
Current Diagnoses Strain of muscle, fascia and tendon of right hip, initial encounter (04/12/21) Physical Therapy Treatment Note PT-OP-A Visit Information Start: 11/24/20 16:25 Freq: Status: Active Protocol: Document 04/12/21 09:48 [facility] (Rec: 04/12/21 10:28 [facility] [id number]) Out-Patient Physical Therapy Visit Information Visit Information Visit Type Treatment Note Visit Start Time 09:00 Visit Stop Time 09:45 Total Visit Minutes 57 Visit Number 23 PT-OP-B Current Condition Start: 11/24/20 16:25 Freq: Status: Active Protocol: Document 01/20/21 14:30 [facility] (Rec: 01/20/21 15:23 [facility] [id number]) Current Condition History of Current Condition Onset Date May 2020 Current Complaints groin pain History of Current Condition Pain started 1 month after fall down 7 stairs, right leg got caught behind, had scrape and bone bruise lower right LE . Landed with left leg in front of her, right leg bent back behind and internally rotated. Started having ischial tuberosity pain 1 month after fall, then states pain began to zig zag around leg, then groin pain. Jacinto now primarily groin. States unable to alternate LE's going up stairs, but can going down . States her groin seizes up when she goes from prolonged sitting to standing, then works itself out a little. Denies N/T, tingling. Prior Treatments and Tests No imaging. PT-OP-C Subjective Start: 11/24/20 16:25 Freq: Status: Active Protocol: Document 04/12/21 09:48 [facility] (Rec: 04/12/21 10:28 [facility] [id number]) OP-PT Subjective Patient Comments Patient Comments Leg doing pretty well. PT-OP-G Mobility & Gait Start: 11/24/20 16:25 Freq: Status: Active Protocol: Document 11/25/20 11:16 [facility] (Rec: 11/25/20 17:00 [facility] [id number]) OP Mobility Evaluation Bed Mobility Supine to and from Sit painful Transfers Sit to Stand painful, needs use of UE's OP Gait Assessment Gait Gait Assistance Required: Independent Assistive Devices Orthotic/Prosthetic Devices or Brace: No Gait Deviations General Gait Pattern Antalgic,Lateral Trunk Lean Factors Limiting Gait Function Factors Limiting Gait Function Pain Stair Climbing Evaluation Evaluation Level of Assist On Stairs Independent Devices Stair Climbing Assistive Devices Left Railing,Right Railing Comments Stair Climbing Comments step-to ascending, alternating descending both with bilateral UE support PT-OP-H Neuro Start: 11/24/20 16:25 Freq: Status: Active Protocol: Document 11/25/20 11:16 [facility] (Rec: 11/25/20 17:00 [facility] [id number]) Sensation Evaluation Gross Sensation Gross Sensation WNL Comments Summary Comments denies N/T PT-OP-J Posture/Palpation/Skin Start: 11/24/20 16:25 Freq: Status: Active Protocol: Document 11/25/20 11:16 [facility] (Rec: 11/25/20 17:00 [facility] [id number]) Posture Evaluation Position Standing L-Spine Posture Increased Lordosis Ankle/Foot Posture (L) Pronated,(R) Pronated Palpation Assessment Location psoas Palpation Location right Palpation Details nontender iliacus Palpation Location right Palpation Details nontender groin Palpation Location medial right Palpation Findings Tenderness PT-OP-K Range of Motion Start: 11/24/20 16:25 Freq: Status: Active Protocol: Document 11/25/20 11:16 [facility] (Rec: 11/25/20 17:00 [facility] [id number]) Hip Goniometric Range of Motion Hip right Hip ROM WFL No Flexion w/Knee Flexed 125 Straight Leg Raise 75 Extension 0 Abduction 35 Internal Rotation 40 External Rotation 80 Left Hip ROM WFL No Flexion w/Knee Flexed 125 Straight Leg Raise 80 Extension 0 Abduction 35 Internal Rotation 20 External Rotation 65 Hip ROM Limitations Hip ROM Limitations Soft Tissue Tightness,Pain Knee Goniometric Range of Motion Knee kianna Knee ROM WFL Yes PT-OP-L Special Tests Start: 11/24/20 16:25 Freq: Status: Active Protocol: Document 11/25/20 11:16 [facility] (Rec: 11/25/20 17:00 [facility] [id number]) Special Tests Hip Special Tests ingrid test Test Results negative kianna Anterior Labral Test Test Results negative kianna Scour Test Test Results negative kianna GRACE Test Results negative kianna PT-OP-M Strength Start: 11/24/20 16:25 Freq: Status: Active Protocol: Document 11/25/20 11:16 [facility] (Rec: 11/25/20 17:00 [facility] [id number]) Hip Strength Hip Manual Muscle Testing Right Flexion (L2) 4 Good Extension (S1) 3- Fair- Abduction 4 Good Adduction 4 Good External Rotation 4- Good- Internal Rotation 4 Good Comments pain with resisted flexion and extension Left Flexion (L2) 4 Good Extension (S1) 3- Fair- Abduction 4 Good Adduction 4 Good External Rotation 4- Good- Internal Rotation 4 Good Knee Strength Knee Manual Muscle Testing kianna Flexion (S2) 5 Normal Extension (L3) 5 Normal PT-OP-Q Treatments Start: 11/24/20 16:25 Freq: Status: Active Protocol: Document 04/12/21 09:48 [facility] (Rec: 04/12/21 10:28 [facility] [id number]) Cardio Equipment Recumbent Stepper (Sci-Fit) Duration (Minutes) 10 Resistance 2.5-3 Seat Position 10 Other cues for neutral LE alignment, 1.54 miles Gym Equipment Shuttle Recovery Unilateral Squats Details single leg squats Resistance 37# Shuttle Recovery Platform Stable Reps/Time 2x10 Bilateral Squats Details bilateral squats Resistance 75 lbs Shuttle Recovery Platform Stable Reps/Time 2 x 10 Manual Therapy Treatment Soft Tissue Mobilization pin and stretch Body Location psoas Mobilization Type Sustained Pressure Comments with gentle IR/ER of hip 2 Body Location IT band Mobilization Type Instrument Assisted Comments massage stick (white) 1 Body Location adductor, gracilis, and sartorius tendons and musculature, iliopsoas, quad Mobilization Type Instrument Assisted,Myofascial Release,Strumming Intensity/Depth Deep Body Position Hooklying Comments massage roller Joint Mobilizations 1 Joint right hip posterior and inferior glides Grade II Body Position Hooklying Reps/Duration 5 min Comments denied pain PT-OP-R Modalities Start: 11/24/20 16:25 Freq: Status: Active Protocol: Document 04/12/21 09:48 [facility] (Rec: 04/12/21 10:28 [facility] [id number]) Ultrasound Therapy Treatment right medial groin Treatment Duration (minutes) 8 Patient Position Supine Coupling Medium Ultrasound Gel Applicator Size (cm2) 2 Frequency Setting (mHz) 3 Mode Setting Continuous Duty Cycle 100% Intensity Setting (w/cm2) 1.2 PT-OP-T Assessment and Plan Start: 11/24/20 16:25 Freq: Status: Active Protocol: Document 04/12/21 09:48 [facility] (Rec: 04/12/21 10:28 [facility] [id number]) Physical Therapy Assessment Goals Three Impairment Decreased activity tolerance: lower extremity functional scale 14% Short Term Goal (STG) Improve LEFS to at least 30% 01/11/21: Improved to 56% STG Duration goal met Care Home Goal (LTG) Improve LEFS to at least 60% as measure of improved activity tolerance 01/10/21: 56% 03/31/21: goal met LTG Duration 04/22/21 Two Impairment antalgic gait, unable to alternate feet ascending stairs Short Term Goal (STG) Patient able to ambulate without a limp with least restrictive device 01/11/21: patient ambulating with minimal limp with no device, mostly met. STG Duration goal met Care Home Goal (LTG) Patient able to ambulate without a limp without a device at usual speed and with alternating pattern on stairs 01/20/21: goal progress, has habitual limp, improved with cues; verbal, and visual 03/31/21: continued goal progress, minimal limp with slowed, focused gait though unable to ambulate at usual speed without increase in gait deviations. No use of assistive device. LTG Duration 05/15/21 One Impairment Pain right groin 12/31 Short Term Goal (STG) Decrease pain to no greater than 3/10 01/11/21: some goal progress, pain 1-2 at rest now, but still as high as 6/10 when gets up after sitting 03/31/21: goal met STG Duration goal met Marketing Admin Goal (LTG) Decrease pain to no greater than 1/10 01/20/21: goal progress, still most painful when moving from sit to stand, but improved, especially with addition of joint mobilization right hip into inferior and posterior glide 03/31/21: good goal progress, pain varies 2-4/10, usually at low level LTG Duration 05/15/21 Physical Therapy Plan Frequency and Duration Frequency of Treatment 2x/Week Duration of Treatment 3 weeks Plan of Care Start Date 03/31/21 Plan of Care End Date 04/22/21 Therapeutic Interventions Therapeutic Interventions Gait Training,Home Exercise Program,Joint Mobilizations, Manual Therapy,Neuromuscular Re-education,Patient/Caregiver Education,Self-Care/Home Management,Soft Tissue Mobilization,Therapeutic Activities,Therapeutic Exercises Modalities Cold Pack/Ice Massage,Hot Packs,Infrared Therapy, Iontophoresis,Ultrasound Next Visit Focus/Plan Next Note Type Treatment Note Next Visit Plan Continue ultrasound, manual treatment, functional ther ex progression, gait and functional mobility retraining .
--- NOTE | 2021-04-15 08:02 | PT-OP ANOTE ---
Cancelled due t possible Covid exposure
--- NOTE | 2021-04-19 11:40 | PT-OP ANOTE ---
cancelled due to possible Covid exposure
--- NOTE | 2021-04-21 09:08 | PT.OTN ---
Current Diagnoses Strain of muscle, fascia and tendon of right hip, initial encounter (04/21/21) Physical Therapy Treatment Note PT-OP-A Visit Information Start: 11/24/20 16:25 Freq: Status: Active Protocol: Document 04/21/21 08:15 [facility] (Rec: 04/21/21 08:32 [facility] [id number]) Out-Patient Physical Therapy Visit Information Visit Information Visit Type Treatment Note Visit Start Time 08:15 Visit Stop Time 09:13 Total Visit Minutes 58 Visit Number 24 PT-OP-B Current Condition Start: 11/24/20 16:25 Freq: Status: Active Protocol: Document 01/20/21 14:30 [facility] (Rec: 01/20/21 15:23 [facility] [id number]) Current Condition History of Current Condition Onset Date May 2020 Current Complaints groin pain History of Current Condition Pain started 1 month after fall down 7 stairs, right leg got caught behind, had scrape and bone bruise lower right LE . Landed with left leg in front of her, right leg bent back behind and internally rotated. Started having ischial tuberosity pain 1 month after fall, then states pain began to zig zag around leg, then groin pain. Jacinto now primarily groin. States unable to alternate LE's going up stairs, but can going down . States her groin seizes up when she goes from prolonged sitting to standing, then works itself out a little. Denies N/T, tingling. Prior Treatments and Tests No imaging. PT-OP-C Subjective Start: 11/24/20 16:25 Freq: Status: Active Protocol: Document 04/21/21 08:15 [facility] (Rec: 04/21/21 08:32 [facility] [id number]) OP-PT Subjective Patient Comments Patient Comments No new c/o. Hasn't started walking program yet. PT-OP-G Mobility & Gait Start: 11/24/20 16:25 Freq: Status: Active Protocol: Document 11/25/20 11:16 [facility] (Rec: 11/25/20 17:00 [facility] [id number]) OP Mobility Evaluation Bed Mobility Supine to and from Sit painful Transfers Sit to Stand painful, needs use of UE's OP Gait Assessment Gait Gait Assistance Required: Independent Assistive Devices Orthotic/Prosthetic Devices or Brace: No Gait Deviations General Gait Pattern Antalgic,Lateral Trunk Lean Factors Limiting Gait Function Factors Limiting Gait Function Pain Stair Climbing Evaluation Evaluation Level of Assist On Stairs Independent Devices Stair Climbing Assistive Devices Left Railing,Right Railing Comments Stair Climbing Comments step-to ascending, alternating descending both with bilateral UE support PT-OP-H Neuro Start: 11/24/20 16:25 Freq: Status: Active Protocol: Document 11/25/20 11:16 [facility] (Rec: 11/25/20 17:00 [facility] [id number]) Sensation Evaluation Gross Sensation Gross Sensation WNL Comments Summary Comments denies N/T PT-OP-J Posture/Palpation/Skin Start: 11/24/20 16:25 Freq: Status: Active Protocol: Document 11/25/20 11:16 [facility] (Rec: 11/25/20 17:00 [facility] [id number]) Posture Evaluation Position Standing L-Spine Posture Increased Lordosis Ankle/Foot Posture (L) Pronated,(R) Pronated Palpation Assessment Location psoas Palpation Location right Palpation Details nontender iliacus Palpation Location right Palpation Details nontender groin Palpation Location medial right Palpation Findings Tenderness PT-OP-K Range of Motion Start: 11/24/20 16:25 Freq: Status: Active Protocol: Document 11/25/20 11:16 [facility] (Rec: 11/25/20 17:00 [facility] [id number]) Hip Goniometric Range of Motion Hip right Hip ROM WFL No Flexion w/Knee Flexed 125 Straight Leg Raise 75 Extension 0 Abduction 35 Internal Rotation 40 External Rotation 80 Left Hip ROM WFL No Flexion w/Knee Flexed 125 Straight Leg Raise 80 Extension 0 Abduction 35 Internal Rotation 20 External Rotation 65 Hip ROM Limitations Hip ROM Limitations Soft Tissue Tightness,Pain Knee Goniometric Range of Motion Knee kianna Knee ROM WFL Yes PT-OP-L Special Tests Start: 11/24/20 16:25 Freq: Status: Active Protocol: Document 11/25/20 11:16 [facility] (Rec: 11/25/20 17:00 [facility] [id number]) Special Tests Hip Special Tests ingrid test Test Results negative kianna Anterior Labral Test Test Results negative kianna Scour Test Test Results negative kianna GRACE Test Results negative kianna PT-OP-M Strength Start: 11/24/20 16:25 Freq: Status: Active Protocol: Document 11/25/20 11:16 [facility] (Rec: 11/25/20 17:00 [facility] [id number]) Hip Strength Hip Manual Muscle Testing Right Flexion (L2) 4 Good Extension (S1) 3- Fair- Abduction 4 Good Adduction 4 Good External Rotation 4- Good- Internal Rotation 4 Good Comments pain with resisted flexion and extension Left Flexion (L2) 4 Good Extension (S1) 3- Fair- Abduction 4 Good Adduction 4 Good External Rotation 4- Good- Internal Rotation 4 Good Knee Strength Knee Manual Muscle Testing kianna Flexion (S2) 5 Normal Extension (L3) 5 Normal PT-OP-Q Treatments Start: 11/24/20 16:25 Freq: Status: Active Protocol: Document 04/21/21 08:15 [facility] (Rec: 04/21/21 08:32 [facility] [id number]) Cardio Equipment Treadmill Duration (Minutes) 10 Speed 1.1 Incline 0 Other cues for neutral pelvis, dec left hip drop Manual Therapy Treatment Soft Tissue Mobilization pin and stretch Body Location psoas Mobilization Type Sustained Pressure Comments with gentle IR/ER of hip 2 Mobilization Type Myofascial Release,Strumming, Sustained Pressure 1 Body Location adductor, gracilis, and sartorius tendons and musculature, iliopsoas, quad Mobilization Type Instrument Assisted,Myofascial Release,Strumming Intensity/Depth Deep Body Position Hooklying Comments massage roller Joint Mobilizations 1 Joint right hip posterior and inferior glides Grade II Body Position Hooklying Reps/Duration 5 min Comments denied pain PT-OP-R Modalities Start: 11/24/20 16:25 Freq: Status: Active Protocol: Document 04/21/21 08:15 [facility] (Rec: 04/21/21 09:06 [facility] [id number]) Hot Pack/Cold Pack Treatment Hot Pack Location right groin Patient Position Hooklying Treatment Duration (minutes) 15 Patient Tolerance Good Ultrasound Therapy Treatment right medial groin Treatment Duration (minutes) 8 Patient Position Supine Coupling Medium Ultrasound Gel Applicator Size (cm2) 2 Frequency Setting (mHz) 3 Mode Setting Continuous Duty Cycle 100% Intensity Setting (w/cm2) 1.2 PT-OP-T Assessment and Plan Start: 11/24/20 16:25 Freq: Status: Active Protocol: Document 04/21/21 08:15 [facility] (Rec: 04/21/21 08:32 [facility] [id number]) Physical Therapy Assessment Goals Three Impairment Decreased activity tolerance: lower extremity functional scale 14% Short Term Goal (STG) Improve LEFS to at least 30% 01/11/21: Improved to 56% STG Duration goal met Snf Goal (LTG) Improve LEFS to at least 60% as measure of improved activity tolerance 01/10/21: 56% 03/31/21: goal met LTG Duration 04/22/21 Two Impairment antalgic gait, unable to alternate feet ascending stairs Short Term Goal (STG) Patient able to ambulate without a limp with least restrictive device 01/11/21: patient ambulating with minimal limp with no device, mostly met. STG Duration goal met Snf Goal (LTG) Patient able to ambulate without a limp without a device at usual speed and with alternating pattern on stairs 01/20/21: goal progress, has habitual limp, improved with cues; verbal, and visual 03/31/21: continued goal progress, minimal limp with slowed, focused gait though unable to ambulate at usual speed without increase in gait deviations. No use of assistive device. LTG Duration 05/15/21 One Impairment Pain right groin 12/31 Short Term Goal (STG) Decrease pain to no greater than 3/10 01/11/21: some goal progress, pain 1-2 at rest now, but still as high as 6/10 when gets up after sitting 03/31/21: goal met STG Duration goal met Billet Grinder Goal (LTG) Decrease pain to no greater than 1/10 01/20/21: goal progress, still most painful when moving from sit to stand, but improved, especially with addition of joint mobilization right hip into inferior and posterior glide 03/31/21: good goal progress, pain varies 2-4/10, usually at low level LTG Duration 05/15/21 Assessment Summary Assessment Tolerated increased speed to 1 .1 mph to 0.2 mph, enied increase in pain. Cues for level pelvis, no lateral sway, neutral posture with soft knees. Physical Therapy Plan Frequency and Duration Frequency of Treatment 2x/Week Duration of Treatment 3 weeks Plan of Care Start Date 03/31/21 Plan of Care End Date 04/22/21 Therapeutic Interventions Therapeutic Interventions Gait Training,Home Exercise Program,Joint Mobilizations, Manual Therapy,Neuromuscular Re-education,Patient/Caregiver Education,Self-Care/Home Management,Soft Tissue Mobilization,Therapeutic Activities,Therapeutic Exercises Modalities Cold Pack/Ice Massage,Hot Packs,Infrared Therapy, Iontophoresis,Ultrasound Next Visit Focus/Plan Next Note Type Treatment Note Next Visit Plan Anticipating 2-4 further PT appointments, then discharge to independent self-management .
--- NOTE | 2021-04-28 10:22 | PT.OTRE ---
Current Diagnoses Strain of muscle, fascia and tendon of right hip, initial encounter (04/28/21) Past Medical History (Last Updated 12/19/20 @ 10:08 by Isabell Fung DO) Asthma Cataract Chronic back pain CTS (carpal tunnel syndrome) Essential hypertension (04/25/17) Greater trochanteric bursitis of left hip H/O colonoscopy with polypectomy (~10/2020) Hypercalcemia Hyperparathyroidism Hypertension Left hamstring muscle strain Measles Obesity Osteoarthritis Varicose veins of left lower extremity Surgical History (Last Updated 12/19/20 @ 10:09 by Isabell Fung DO) Anesthesia H/O colonoscopy with polypectomy (~10/2020) History of knee replacement (2016) History of spinal fusion (06/2009) History of spinal fusion (2011) Status post parathyroidectomy (2015) Status post tonsillectomy and adenoidectomy (1947) Visit Care Team Role Provider Type Isabell Fung DO Attending Provider Physician Family Provider Primary Care Provider Referring Provider Specialty: [facility] Address: [address] [place] [address], [address], [facility] Email: [email or web address] Physical Therapy Re-Evaluation PT-OP-A Visit Information Start: 11/24/20 16:25 Freq: Status: Active Protocol: Document 04/28/21 08:16 [facility] (Rec: 04/28/21 09:01 [facility] [id number]) Out-Patient Physical Therapy Visit Information Visit Information Visit Type Treatment Note Visit Start Time 08:15 Visit Stop Time 09:13 Total Visit Minutes 58 Visit Number 25 PT-OP-B Current Condition Start: 11/24/20 16:25 Freq: Status: Active Protocol: Document 01/20/21 14:30 [facility] (Rec: 01/20/21 15:23 [facility] [id number]) Current Condition History of Current Condition Onset Date May 2020 Current Complaints groin pain History of Current Condition Pain started 1 month after fall down 7 stairs, right leg got caught behind, had scrape and bone bruise lower right LE . Landed with left leg in front of her, right leg bent back behind and internally rotated. Started having ischial tuberosity pain 1 month after fall, then states pain began to zig zag around leg, then groin pain. [place]into now primarily groin. States unable to alternate LE's going up stairs, but can going down . States her groin seizes up when she goes from prolonged sitting to standing, then works itself out a little. Denies N/T, tingling. Prior Treatments and Tests No imaging. PT-OP-C Subjective Start: 11/24/20 16:25 Freq: Status: Active Protocol: Document 04/28/21 08:16 [facility] (Rec: 04/28/21 09:01 [facility] [id number]) OP-PT Subjective Patient Comments Patient Comments Not concentrated walks yet. PT-OP-G Mobility & Gait Start: 11/24/20 16:25 Freq: Status: Active Protocol: Document 11/25/20 11:16 [facility] (Rec: 11/25/20 17:00 [facility] [id number]) OP Mobility Evaluation Bed Mobility Supine to and from Sit painful Transfers Sit to Stand painful, needs use of UE's OP Gait Assessment Gait Gait Assistance Required: Independent Assistive Devices Orthotic/Prosthetic Devices or Brace: No Gait Deviations General Gait Pattern Antalgic,Lateral Trunk Lean Factors Limiting Gait Function Factors Limiting Gait Function Pain Stair Climbing Evaluation Evaluation Level of Assist On Stairs Independent Devices Stair Climbing Assistive Devices Left Railing,Right Railing Comments Stair Climbing Comments step-to ascending, alternating descending both with bilateral UE support PT-OP-H Neuro Start: 11/24/20 16:25 Freq: Status: Active Protocol: Document 11/25/20 11:16 [facility] (Rec: 11/25/20 17:00 [facility] [id number]) Sensation Evaluation Gross Sensation Gross Sensation WNL Comments Summary Comments denies N/T PT-OP-J Posture/Palpation/Skin Start: 11/24/20 16:25 Freq: Status: Active Protocol: Document 11/25/20 11:16 [facility] (Rec: 11/25/20 17:00 [facility] [id number]) Posture Evaluation Position Standing L-Spine Posture Increased Lordosis Ankle/Foot Posture (L) Pronated,(R) Pronated Palpation Assessment Location psoas Palpation Location right Palpation Details nontender iliacus Palpation Location right Palpation Details nontender groin Palpation Location medial right Palpation Findings Tenderness PT-OP-K Range of Motion Start: 11/24/20 16:25 Freq: Status: Active Protocol: Document 11/25/20 11:16 [facility] (Rec: 11/25/20 17:00 [facility] [id number]) Hip Goniometric Range of Motion Hip Measured in Degrees right Hip ROM WFL No Flexion w/Knee Flexed 125 Straight Leg Raise 75 Extension 0 Abduction 35 Internal Rotation 40 External Rotation 80 Left Hip ROM WFL No Flexion w/Knee Flexed 125 Straight Leg Raise 80 Extension 0 Abduction 35 Internal Rotation 20 External Rotation 65 Hip ROM Limitations Hip ROM Limitations Soft Tissue Tightness,Pain Knee Goniometric Range of Motion Knee Measured in Degrees kianna Knee ROM WFL Yes PT-OP-L Special Tests Start: 11/24/20 16:25 Freq: Status: Active Protocol: Document 11/25/20 11:16 [facility] (Rec: 11/25/20 17:00 [facility] [id number]) Special Tests Hip Special Tests ingrid test Test Results negative kianna Anterior Labral Test Test Results negative kianna Scour Test Test Results negative kianna GRACE Test Results negative kianna PT-OP-M Strength Start: 11/24/20 16:25 Freq: Status: Active Protocol: Document 11/25/20 11:16 [facility] (Rec: 11/25/20 17:00 [facility] [id number]) Hip Strength Hip Manual Muscle Testing Right Flexion (L2) 4 Good Extension (S1) 3- Fair- Abduction 4 Good Adduction 4 Good External Rotation 4- Good- Internal Rotation 4 Good Comments pain with resisted flexion and extension Left Flexion (L2) 4 Good Extension (S1) 3- Fair- Abduction 4 Good Adduction 4 Good External Rotation 4- Good- Internal Rotation 4 Good Knee Strength Knee Manual Muscle Testing kianna Flexion (S2) 5 Normal Extension (L3) 5 Normal PT-OP-Q Treatments Start: 11/24/20 16:25 Freq: Status: Active Protocol: Document 04/28/21 08:16 [facility] (Rec: 04/28/21 09:01 [facility] [id number]) Cardio Equipment Treadmill Duration (Minutes) 11 Speed 1.3-1.5 Incline 0 Other cues for neutral pelvis, dec left hip drop Other Cardio Equipment Other Cardio Equipment 0.25 miles on treadmill Gym Equipment Shuttle Balance chains red Details bal and wt shift side to side Reps/Duration 3 min Comments cues for postural alignment Therapeutic Exercises Sitting Exercises hip ER stretch Reps/Minutes 2x30 figure 4 stretch Reps/Minutes 2x30 hamstring stretch Reps/Minutes 2x30 Comments cues for hip hinge Manual Therapy Treatment Soft Tissue Mobilization pin and stretch Body Location psoas Mobilization Type Sustained Pressure Comments with gentle IR/ER of hip 2 Mobilization Type Myofascial Release,Strumming, Sustained Pressure 1 Body Location adductor, gracilis, and sartorius tendons and musculature, iliopsoas, quad Mobilization Type Instrument Assisted,Myofascial Release,Strumming Intensity/Depth Deep Body Position Hooklying Comments massage roller Joint Mobilizations 1 Joint right hip posterior and inferior glides Grade II Body Position Hooklying Reps/Duration 5 min Comments denied pain PT-OP-R Modalities Start: 11/24/20 16:25 Freq: Status: Active Protocol: Document 04/28/21 08:16 [facility] (Rec: 04/28/21 09:01 [facility] [id number]) Hot Pack/Cold Pack Treatment Hot Pack Location right groin Patient Position Hooklying Treatment Duration (minutes) 15 Patient Tolerance Good Ultrasound Therapy Treatment right medial groin Treatment Duration (minutes) 8 Patient Position Supine Coupling Medium Ultrasound Gel Applicator Size (cm2) 2 Frequency Setting (mHz) 3 Mode Setting Continuous Duty Cycle 100% Intensity Setting (w/cm2) 1.2 PT-OP-T Assessment and Plan Start: 11/24/20 16:25 Freq: Status: Active Protocol: Document 04/28/21 08:16 [facility] (Rec: 04/28/21 09:01 [facility] [id number]) Physical Therapy Assessment Goals Three Impairment Decreased activity tolerance: lower extremity functional scale 14% Short Term Goal (STG) Improve LEFS to at least 30% 01/11/21: Improved to 56% STG Duration goal met Fpc Goal (LTG) Improve LEFS to at least 60% as measure of improved activity tolerance 01/10/21: 56% 03/31/21: goal met 04/28/21: goal upgraded to 75% due to planned trip [place] requiring a lot of walking. At this point hasn't been able to start walking program yet LTG Duration 06/27/21 Two Impairment antalgic gait, unable to alternate feet ascending stairs Short Term Goal (STG) Patient able to ambulate without a limp with least restrictive device 01/11/21: patient ambulating with minimal limp with no device, mostly met. STG Duration goal met Carpet Mechanic Goal (LTG) Patient able to ambulate without a limp without a device at usual speed and with alternating pattern on stairs 01/20/21: goal progress, has habitual limp, improved with cues; verbal, and visual 03/31/21: continued goal progress, minimal limp with slowed, focused gait though unable to ambulate at usual speed without increase in gait deviations. No use of assistive device. 04/28/21: able to ambulate without cane but hip drop in stance on left, excess lordosis, and knee hyperextension LTG Duration 06/27/21 One Impairment Pain right groin 12/31 Short Term Goal (STG) Decrease pain to no greater than 3/10 01/11/21: some goal progress, pain 1-2 at rest now, but still as high as 6/10 when gets up after sitting 03/31/21: goal met STG Duration goal met Carpet Mechanic Goal (LTG) Decrease pain to no greater than 1/10 with all usual activities 01/20/21: goal progress, still most painful when moving from sit to stand, but improved, especially with addition of joint mobilization right hip into inferior and posterior glide 03/31/21: good goal progress, pain varies 2-4/10, usually at low level 04/28/21: goal persists at 2-4/ 10, hasn't been able to start walking program yet, have started increasing in PT LTG Duration 06/27/21 Assessment Summary Assessment Tolerated increase in speed to 1.3 to 1.5 mph, no elevation. Cues for gluteal activation in stance, neutral postural alignment. Progress toward PT goals. LEFS goal upgraded to 75% due to patient plan for travel involving a lot of travel and concern over tolerance. Have instructed in walking program for home and have progressed to work on treadmill with plan to add elevation next session. Feel she would benefit from further skilled PT to help her continue to improve and get back to prior level of function which involved travel with extensive walking. Recommend decrease frequency to 1x/wk as she takes on more independence with HEP, continue with modalities and manual therapy for pain control and soft tissue mobilization. Physical Therapy Plan Frequency and Duration Frequency of Treatment 1x/Week Duration of Treatment 8 weeks Plan of Care Start Date 04/28/21 Plan of Care End Date 06/27/21 Therapeutic Interventions Therapeutic Interventions Gait Training,Home Exercise Program,Joint Mobilizations, Manual Therapy,Neuromuscular Re-education,Patient/Caregiver Education,Self-Care/Home Management,Soft Tissue Mobilization,Therapeutic Activities,Therapeutic Exercises Modalities Cold Pack/Ice Massage,Hot Packs,Infrared Therapy, Iontophoresis,Ultrasound Next Visit Focus/Plan Next Note Type Treatment Note Next Visit Plan update written HEP, add elevation to treadmill. emphasis on neutral pelvis with gait. Continue modalities and manual therapy per POC.
--- NOTE | 2021-04-28 10:23 | PT.OPPOC ---
Physical, Occupational & Speech Therapy At [facility] Current Diagnoses Strain of muscle, fascia and tendon of right hip, initial encounter (04/28/21) Visit Care Team Role Provider Type Isabell Fung DO Attending Provider Physician Family Provider Primary Care Provider Referring Provider Specialty: [facility] Practice Address: [address] [place] [address], [address], [facility] Email: [email or web address] Plan Of Care PT-OP-T Assessment and Plan Start: 11/24/20 16:25 Freq: Status: Active Protocol: Document 04/28/21 08:16 RALF (Rec: 04/28/21 09:01 RALF [id number]) Physical Therapy Assessment Goals Three Impairment Decreased activity tolerance: lower extremity functional scale 14% Short Term Goal (STG) Improve LEFS to at least 30% 01/11/21: Improved to 56% STG Duration goal met School Adjustment Counselor Goal (LTG) Improve LEFS to at least 60% as measure of improved activity tolerance 01/10/21: 56% 03/31/21: goal met 04/28/21: goal upgraded to 75% due to planned trip overseas requiring a lot of walking. At this point hasn't been able to start walking program yet LTG Duration 06/27/21 Two Impairment antalgic gait, unable to alternate feet ascending stairs Short Term Goal (STG) Patient able to ambulate without a limp with least restrictive device 01/11/21: patient ambulating with minimal limp with no device, mostly met. STG Duration goal met School Adjustment Counselor Goal (LTG) Patient able to ambulate without a limp without a device at usual speed and with alternating pattern on stairs 01/20/21: goal progress, has habitual limp, improved with cues; verbal, and visual 03/31/21: continued goal progress, minimal limp with slowed, focused gait though unable to ambulate at usual speed without increase in gait deviations. No use of assistive device. 04/28/21: able to ambulate without cane but hip drop in stance on left, excess lordosis, and knee hyperextension LTG Duration 06/27/21 One Impairment Pain right groin 12/31 Short Term Goal (STG) Decrease pain to no greater than 3/10 01/11/21: some goal progress, pain 1-2 at rest now, but still as high as 6/10 when gets up after sitting 03/31/21: goal met STG Duration goal met Longterm Goal (LTG) Decrease pain to no greater than 1/10 with all usual activities 01/20/21: goal progress, still most painful when moving from sit to stand, but improved, especially with addition of joint mobilization right hip into inferior and posterior glide 03/31/21: good goal progress, pain varies 2-4/10, usually at low level 04/28/21: goal persists at 2-4/ 10, hasn't been able to start walking program yet, have started increasing in PT LTG Duration 06/27/21 Assessment Summary Assessment Tolerated increase in speed to 1.3 to 1.5 mph, no elevation. Cues for gluteal activation in stance, neutral postural alignment. Progress toward PT goals. LEFS goal upgraded to 75% due to patient plan for travel involving a lot of travel and concern over tolerance. Have instructed in walking program for home and have progressed to work on treadmill with plan to add elevation next session. Feel she would benefit from further skilled PT to help her continue to improve and get back to prior level of function which involved travel with extensive walking. Recommend decrease frequency to 1x/wk as she takes on more independence with HEP, continue with modalities and manual therapy for pain control and soft tissue mobilization. Physical Therapy Plan Frequency and Duration Frequency of Treatment 1x/Week Duration of Treatment 8 weeks Plan of Care Start Date 04/28/21 Plan of Care End Date 06/27/21 Therapeutic Interventions Therapeutic Interventions Gait Training,Home Exercise Program,Joint Mobilizations, Manual Therapy,Neuromuscular Re-education,Patient/Caregiver Education,Self-Care/Home Management,Soft Tissue Mobilization,Therapeutic Activities,Therapeutic Exercises Modalities Cold Pack/Ice Massage,Hot Packs,Infrared Therapy, Iontophoresis,Ultrasound Next Visit Focus/Plan Next Note Type Treatment Note Next Visit Plan update written HEP, add elevation to treadmill. emphasis on neutral pelvis with gait. Continue modalities and manual therapy per POC. Plan of Care Dates Plan of Care Start Date 04/28/21 Plan of Care End Date 06/27/21 Electronically Signed by: Martina Feng, PT 04/28/21 1023 Please Sign and Return: I have reviewed this Plan of Care and certify that the skilled therapy services above are required to meet the patient?s needs. Physician Signature Date Printed Name and Credentials Clinical Instructor Signature Printed Name and Credentials
--- NOTE | 2021-05-05 10:12 | PT.OTN ---
Current Diagnoses Strain of muscle, fascia and tendon of right hip, initial encounter (05/05/21) Physical Therapy Treatment Note PT-OP-A Visit Information Start: 11/24/20 16:25 Freq: Status: Active Protocol: Document 05/05/21 08:15 [facility] (Rec: 05/05/21 08:36 [facility] [id number]) Out-Patient Physical Therapy Visit Information Visit Information Visit Type Treatment Note Visit Start Time 08:15 Visit Stop Time 09:13 Total Visit Minutes 58 Visit Number 26 PT-OP-B Current Condition Start: 11/24/20 16:25 Freq: Status: Active Protocol: Document 01/20/21 14:30 [facility] (Rec: 01/20/21 15:23 [facility] [id number]) Current Condition History of Current Condition Onset Date May 2020 Current Complaints groin pain History of Current Condition Pain started 1 month after fall down 7 stairs, right leg got caught behind, had scrape and bone bruise lower right LE . Landed with left leg in front of her, right leg bent back behind and internally rotated. Started having ischial tuberosity pain 1 month after fall, then states pain began to zig zag around leg, then groin pain. Jacinto now primarily groin. States unable to alternate LE's going up stairs, but can going down . States her groin seizes up when she goes from prolonged sitting to standing, then works itself out a little. Denies N/T, tingling. Prior Treatments and Tests No imaging. PT-OP-C Subjective Start: 11/24/20 16:25 Freq: Status: Active Protocol: Document 05/05/21 08:15 [facility] (Rec: 05/05/21 08:36 [facility] [id number]) OP-PT Subjective Patient Comments Patient Comments A lot of time on her feet but not taking walks yet; reminded of importance of self care, ther ex, walking, stretching. Patient requests updated handout for LE stretches PT-OP-G Mobility & Gait Start: 11/24/20 16:25 Freq: Status: Active Protocol: Document 11/25/20 11:16 SAK (Rec: 11/25/20 17:00 [facility] [id number]) OP Mobility Evaluation Bed Mobility Supine to and from Sit painful Transfers Sit to Stand painful, needs use of UE's OP Gait Assessment Gait Gait Assistance Required: Independent Assistive Devices Orthotic/Prosthetic Devices or Brace: No Gait Deviations General Gait Pattern Antalgic,Lateral Trunk Lean Factors Limiting Gait Function Factors Limiting Gait Function Pain Stair Climbing Evaluation Evaluation Level of Assist On Stairs Independent Devices Stair Climbing Assistive Devices Left Railing,Right Railing Comments Stair Climbing Comments step-to ascending, alternating descending both with bilateral UE support PT-OP-H Neuro Start: 11/24/20 16:25 Freq: Status: Active Protocol: Document 11/25/20 11:16 [facility] (Rec: 11/25/20 17:00 [facility] [id number]) Sensation Evaluation Gross Sensation Gross Sensation WNL Comments Summary Comments denies N/T PT-OP-J Posture/Palpation/Skin Start: 11/24/20 16:25 Freq: Status: Active Protocol: Document 11/25/20 11:16 [facility] (Rec: 11/25/20 17:00 [facility] [id number]) Posture Evaluation Position Standing L-Spine Posture Increased Lordosis Ankle/Foot Posture (L) Pronated,(R) Pronated Palpation Assessment Location psoas Palpation Location right Palpation Details nontender iliacus Palpation Location right Palpation Details nontender groin Palpation Location medial right Palpation Findings Tenderness PT-OP-K Range of Motion Start: 11/24/20 16:25 Freq: Status: Active Protocol: Document 11/25/20 11:16 [facility] (Rec: 11/25/20 17:00 [facility] [id number]) Hip Goniometric Range of Motion Hip right Hip ROM WFL No Flexion w/Knee Flexed 125 Straight Leg Raise 75 Extension 0 Abduction 35 Internal Rotation 40 External Rotation 80 Left Hip ROM WFL No Flexion w/Knee Flexed 125 Straight Leg Raise 80 Extension 0 Abduction 35 Internal Rotation 20 External Rotation 65 Hip ROM Limitations Hip ROM Limitations Soft Tissue Tightness,Pain Knee Goniometric Range of Motion Knee kianna Knee ROM WFL Yes PT-OP-L Special Tests Start: 11/24/20 16:25 Freq: Status: Active Protocol: Document 11/25/20 11:16 [facility] (Rec: 11/25/20 17:00 [facility] [id number]) Special Tests Hip Special Tests ingrid test Test Results negative kianna Anterior Labral Test Test Results negative kianna Scour Test Test Results negative kianna GRACE Test Results negative kianna PT-OP-M Strength Start: 11/24/20 16:25 Freq: Status: Active Protocol: Document 11/25/20 11:16 [facility] (Rec: 11/25/20 17:00 [facility] [id number]) Hip Strength Hip Manual Muscle Testing Right Flexion (L2) 4 Good Extension (S1) 3- Fair- Abduction 4 Good Adduction 4 Good External Rotation 4- Good- Internal Rotation 4 Good Comments pain with resisted flexion and extension Left Flexion (L2) 4 Good Extension (S1) 3- Fair- Abduction 4 Good Adduction 4 Good External Rotation 4- Good- Internal Rotation 4 Good Knee Strength Knee Manual Muscle Testing kianna Flexion (S2) 5 Normal Extension (L3) 5 Normal PT-OP-Q Treatments Start: 11/24/20 16:25 Freq: Status: Active Protocol: Document 05/05/21 08:15 [facility] (Rec: 05/05/21 08:36 [facility] [id number]) Cardio Equipment Treadmill Duration (Minutes) 10 Speed 1.3-1.6 Incline 1 Other cues for neutral pelvis, dec left hip drop Gym Equipment Shuttle Balance chains red Details bal and wt shift side to side Reps/Duration 3 min Comments cues for postural alignment Manual Therapy Treatment Soft Tissue Mobilization pin and stretch Body Location psoas Mobilization Type Sustained Pressure Comments with gentle IR/ER of hip 2 Mobilization Type Myofascial Release,Strumming, Sustained Pressure 1 Body Location adductor, gracilis, and sartorius tendons and musculature, iliopsoas, quad Mobilization Type Instrument Assisted,Myofascial Release,Strumming Intensity/Depth Deep Body Position Hooklying Comments massage roller PT-OP-R Modalities Start: 11/24/20 16:25 Freq: Status: Active Protocol: Document 05/05/21 08:15 [facility] (Rec: 05/05/21 08:36 [facility] [id number]) Hot Pack/Cold Pack Treatment Hot Pack Location right groin Patient Position Hooklying Treatment Duration (minutes) 15 Patient Tolerance Good Ultrasound Therapy Treatment right medial groin Treatment Duration (minutes) 8 Patient Position Supine Coupling Medium Ultrasound Gel Applicator Size (cm2) 2 Frequency Setting (mHz) 3 Mode Setting Continuous Duty Cycle 100% Intensity Setting (w/cm2) 1.2 PT-OP-T Assessment and Plan Start: 11/24/20 16:25 Freq: Status: Active Protocol: Document 05/05/21 08:15 [facility] (Rec: 05/05/21 08:36 SAK [id number]) Physical Therapy Assessment Goals Three Impairment Decreased activity tolerance: lower extremity functional scale 14% Short Term Goal (STG) Improve LEFS to at least 30% 01/11/21: Improved to 56% STG Duration goal met Lead Generation Representative Goal (LTG) Improve LEFS to at least 60% as measure of improved activity tolerance 01/10/21: 56% 03/31/21: goal met 04/28/21: goal upgraded to 75% due to planned trip [place] requiring a lot of walking. At this point hasn't been able to start walking program yet LTG Duration 06/27/21 Two Impairment antalgic gait, unable to alternate feet ascending stairs Short Term Goal (STG) Patient able to ambulate without a limp with least restrictive device 01/11/21: patient ambulating with minimal limp with no device, mostly met. STG Duration goal met Lead Generation Representative Goal (LTG) Patient able to ambulate without a limp without a device at usual speed and with alternating pattern on stairs 01/20/21: goal progress, has habitual limp, improved with cues; verbal, and visual 03/31/21: continued goal progress, minimal limp with slowed, focused gait though unable to ambulate at usual speed without increase in gait deviations. No use of assistive device. 04/28/21: able to ambulate without cane but hip drop in stance on left, excess lordosis, and knee hyperextension LTG Duration 06/27/21 One Impairment Pain right groin 12/31 Short Term Goal (STG) Decrease pain to no greater than 3/10 01/11/21: some goal progress, pain 1-2 at rest now, but still as high as 6/10 when gets up after sitting 03/31/21: goal met STG Duration goal met Lead Generation Representative Goal (LTG) Decrease pain to no greater than 1/10 with all usual activities 01/20/21: goal progress, still most painful when moving from sit to stand, but improved, especially with addition of joint mobilization right hip into inferior and posterior glide 03/31/21: good goal progress, pain varies 2-4/10, usually at low level 04/28/21: goal persists at 2-4/ 10, hasn't been able to start walking program yet, have started increasing in PT LTG Duration 06/27/21 Assessment Summary Assessment Added elevation of 1% to treadmill, increased speed to 1.6mph. Cues for posterior pelvic tilt, soft knees, upright posture; patient demonstrating increased drop to left LE during heelstrike. Trial 1/8 cork in left shoe, patient instructed in wearing schedule, remove if not tolerated. Increased adductor tightness today noted with manual treatment; flexibility exercises encouraged. At this time patient independent with HEP (though compliance poor), would like to transition to aquatic PT for 4 further visits prior to discharge from PT. Physical Therapy Plan Frequency and Duration Frequency of Treatment 1x/Week Duration of Treatment 8 weeks Plan of Care Start Date 04/28/21 Plan of Care End Date 06/27/21 Therapeutic Interventions Therapeutic Interventions Gait Training,Home Exercise Program,Joint Mobilizations, Manual Therapy,Neuromuscular Re-education,Patient/Caregiver Education,Self-Care/Home Management,Soft Tissue Mobilization,Therapeutic Activities,Therapeutic Exercises Modalities Cold Pack/Ice Massage,Hot Packs,Infrared Therapy, Iontophoresis,Ultrasound Next Visit Focus/Plan Next Note Type Treatment Note Next Visit Plan Aquatic PT for 4 visits, then discharge to [facility]
--- NOTE | 2021-06-28 16:57 | PT.OTN ---
Current Diagnoses Strain of muscle, fascia and tendon of right hip, initial encounter (06/28/21) Physical Therapy Treatment Note PT-OP-A Visit Information Start: 11/24/20 16:25 Freq: Status: Active Protocol: Document 06/28/21 16:48 [facility] (Rec: 06/28/21 16:57 [facility] [id number]) Out-Patient Physical Therapy Visit Information Visit Information Visit Type Aquatic Treatment Note Visit Start Time 10:15 Visit Stop Time 11:00 Total Visit Minutes 45 Visit Number 28 PT-OP-B Current Condition Start: 11/24/20 16:25 Freq: Status: Active Protocol: Document 01/20/21 14:30 [facility] (Rec: 01/20/21 15:23 [facility] [id number]) Current Condition History of Current Condition Onset Date May 2020 Current Complaints groin pain History of Current Condition Pain started 1 month after fall down 7 stairs, right leg got caught behind, had scrape and bone bruise lower right LE . Landed with left leg in front of her, right leg bent back behind and internally rotated. Started having ischial tuberosity pain 1 month after fall, then states pain began to zig zag around leg, then groin pain. [place] now primarily groin. States unable to alternate LE's going up stairs, but can going down . States her groin seizes up when she goes from prolonged sitting to standing, then works itself out a little. Denies N/T, tingling. Prior Treatments and Tests No imaging. PT-OP-C Subjective Start: 11/24/20 16:25 Freq: Status: Active Protocol: Document 06/28/21 16:48 [facility] (Rec: 06/28/21 16:57 [facility] [id number]) OP-PT Subjective Patient Comments Patient Comments No new c/o, no increase in pain after last PT session, felt good. PT-OP-G Mobility & Gait Start: 11/24/20 16:25 Freq: Status: Active Protocol: Document 11/25/20 11:16 [facility] (Rec: 11/25/20 17:00 [facility] [id number]) OP Mobility Evaluation Bed Mobility Supine to and from Sit painful Transfers Sit to Stand painful, needs use of UE's OP Gait Assessment Gait Gait Assistance Required: Independent Assistive Devices Orthotic/Prosthetic Devices or Brace: No Gait Deviations General Gait Pattern Antalgic,Lateral Trunk Lean Factors Limiting Gait Function Factors Limiting Gait Function Pain Stair Climbing Evaluation Evaluation Level of Assist On Stairs Independent Devices Stair Climbing Assistive Devices Left Railing,Right Railing Comments Stair Climbing Comments step-to ascending, alternating descending both with bilateral UE support PT-OP-H Neuro Start: 11/24/20 16:25 Freq: Status: Active Protocol: Document 11/25/20 11:16 [facility] (Rec: 11/25/20 17:00 [facility] [id number]) Sensation Evaluation Gross Sensation Gross Sensation WNL Comments Summary Comments denies N/T PT-OP-J Posture/Palpation/Skin Start: 11/24/20 16:25 Freq: Status: Active Protocol: Document 11/25/20 11:16 [facility] (Rec: 11/25/20 17:00 [facility] [id number]) Posture Evaluation Position Standing L-Spine Posture Increased Lordosis Ankle/Foot Posture (L) Pronated,(R) Pronated Palpation Assessment Location psoas Palpation Location right Palpation Details nontender iliacus Palpation Location right Palpation Details nontender groin Palpation Location medial right Palpation Findings Tenderness PT-OP-K Range of Motion Start: 11/24/20 16:25 Freq: Status: Active Protocol: Document 11/25/20 11:16 [facility] (Rec: 11/25/20 17:00 [facility] [id number]) Hip Goniometric Range of Motion Hip right Hip ROM WFL No Flexion w/Knee Flexed 125 Straight Leg Raise 75 Extension 0 Abduction 35 Internal Rotation 40 External Rotation 80 Left Hip ROM WFL No Flexion w/Knee Flexed 125 Straight Leg Raise 80 Extension 0 Abduction 35 Internal Rotation 20 External Rotation 65 Hip ROM Limitations Hip ROM Limitations Soft Tissue Tightness,Pain Knee Goniometric Range of Motion Knee kianna Knee ROM WFL Yes PT-OP-L Special Tests Start: 11/24/20 16:25 Freq: Status: Active Protocol: Document 11/25/20 11:16 [facility] (Rec: 11/25/20 17:00 [facility] [id number]) Special Tests Hip Special Tests ingrid test Test Results negative kianna Anterior Labral Test Test Results negative kianna Scour Test Test Results negative kianna GRACE Test Results negative kianna PT-OP-M Strength Start: 11/24/20 16:25 Freq: Status: Active Protocol: Document 11/25/20 11:16 [facility] (Rec: 11/25/20 17:00 [facility] [id number]) Hip Strength Hip Manual Muscle Testing Right Flexion (L2) 4 Good Extension (S1) 3- Fair- Abduction 4 Good Adduction 4 Good External Rotation 4- Good- Internal Rotation 4 Good Comments pain with resisted flexion and extension Left Flexion (L2) 4 Good Extension (S1) 3- Fair- Abduction 4 Good Adduction 4 Good External Rotation 4- Good- Internal Rotation 4 Good Knee Strength Knee Manual Muscle Testing kianna Flexion (S2) 5 Normal Extension (L3) 5 Normal PT-OP-Q Treatments Start: 11/24/20 16:25 Freq: Status: Active Protocol: Document 05/05/21 08:15 [facility] (Rec: 05/05/21 08:36 [facility] [id number]) Cardio Equipment Treadmill Duration (Minutes) 10 Speed 1.3-1.6 Incline 1 Other cues for neutral pelvis, dec left hip drop Gym Equipment Shuttle Balance chains red Details bal and wt shift side to side Reps/Duration 3 min Comments cues for postural alignment Manual Therapy Treatment Soft Tissue Mobilization pin and stretch Body Location psoas Mobilization Type Sustained Pressure Comments with gentle IR/ER of hip 2 Mobilization Type Myofascial Release,Strumming, Sustained Pressure 1 Body Location adductor, gracilis, and sartorius tendons and musculature, iliopsoas, quad Mobilization Type Instrument Assisted,Myofascial Release,Strumming Intensity/Depth Deep Body Position Hooklying Comments massage roller PT-OP-R Modalities Start: 11/24/20 16:25 Freq: Status: Active Protocol: Document 05/05/21 08:15 [facility] (Rec: 05/05/21 08:36 [facility] [id number]) Hot Pack/Cold Pack Treatment Hot Pack Location right groin Patient Position Hooklying Treatment Duration (minutes) 15 Patient Tolerance Good Ultrasound Therapy Treatment right medial groin Treatment Duration (minutes) 8 Patient Position Supine Coupling Medium Ultrasound Gel Applicator Size (cm2) 2 Frequency Setting (mHz) 3 Mode Setting Continuous Duty Cycle 100% Intensity Setting (w/cm2) 1.2 PT-OP-S Aquatic Treatment Start: 06/21/21 15:03 Freq: Status: Active Protocol: Document 06/28/21 16:48 [facility] (Rec: 06/28/21 16:57 [facility] [id number]) Aquatics Treatment Water Walking Marching Water Level Chest Level Walking Equipment Ankle Floats Level of Assistance Verbal Cues Sideways Water Level Chest Level Walking Equipment Ankle Floats Level of Assistance Verbal Cues Backwards Water Level Chest Level Walking Equipment Ankle Floats Level of Assistance Verbal Cues Forwards Water Level Chest Level Walking Equipment Ankle Floats Level of Assistance Verbal Cues Lower Extremity Exercises hamstring curls Body Position Standing Water Level Chest Level Reps/Duration 10x hip ab/ad,flex/ext, circles Body Position Standing Water Level Chest Level Reps/Duration 10x ea Comments emphasis on core stab Lower Extremity Stretches quads Body Position Standing Equipment Ankle Floats Reps/Duration 2x30 Comments verbal and manual cues for alignment hamstring Details also groin and ITb Body Position Standing Equipment Ankle Floats Reps/Duration 2x30 Upper Extremity Exercises hor ab/ad, flex/ext Body Position Standing Water Level Chest Level Reps/Duration 10x ea Comments kianna and unil with emphasis on core stab Spinal Exercises deep water DLS Comments not done due to c/o shoulder pain [place] Activities [place] Activities Bicycle,Bicycle Backwards, Running Equipment flotation belt PT-OP-T Assessment and Plan Start: 11/24/20 16:25 Freq: Status: Active Protocol: Document 06/28/21 16:48 [facility] (Rec: 06/28/21 16:57 [facility] [id number]) Physical Therapy Assessment Goals Three Impairment Decreased activity tolerance: lower extremity functional scale 14% Short Term Goal (STG) Improve LEFS to at least 30% 01/11/21: Improved to 56% STG Duration goal met Pulmonologist/Intensivist Goal (LTG) Improve LEFS to at least 60% as measure of improved activity tolerance 01/10/21: 56% 03/31/21: goal met 04/28/21: goal upgraded to 75% due to planned trip [place] requiring a lot of walking. At this point hasn't been able to start walking program yet 06/21/21: good goal progress LTG Duration 07/23/21 Two Impairment antalgic gait, unable to alternate feet ascending stairs Short Term Goal (STG) Patient able to ambulate without a limp with least restrictive device 01/11/21: patient ambulating with minimal limp with no device, mostly met. STG Duration goal met [facility] Goal (LTG) Patient able to ambulate without a limp without a device at usual speed and with alternating pattern on stairs 01/20/21: goal progress, has habitual limp, improved with cues; verbal, and visual 03/31/21: continued goal progress, minimal limp with slowed, focused gait though unable to ambulate at usual speed without increase in gait deviations. No use of assistive device. 04/28/21: able to ambulate without cane but hip drop in stance on left, excess lordosis, and knee hyperextension 06/21/21: mostly met LTG Duration 07/23/21 One Impairment Pain right groin 12/31 Short Term Goal (STG) Decrease pain to no greater than 3/10 01/11/21: some goal progress, pain 1-2 at rest now, but still as high as 6/10 when gets up after sitting 03/31/21: goal met STG Duration goal met Pulmonologist/Intensivist Goal (LTG) Decrease pain to no greater than 1/10 with all usual activities 01/20/21: goal progress, still most painful when moving from sit to stand, but improved, especially with addition of joint mobilization right hip into inferior and posterior glide 03/31/21: good goal progress, pain varies 2-4/10, usually at low level 04/28/21: goal persists at 2-4/ 10, hasn't been able to start walking program yet, have started increasing in PT 06/21/21: pain level LTG Duration 07/23/21 Physical Therapy Plan Frequency and Duration Frequency of Treatment 1x/Week Duration of Treatment 4 weeks Plan of Care Start Date 06/21/21 Plan of Care End Date 07/23/21 Therapeutic Interventions Therapeutic Interventions Gait Training,Home Exercise Program,Joint Mobilizations, Manual Therapy,Neuromuscular Re-education,Patient/Caregiver Education,Self-Care/Home Management,Soft Tissue Mobilization,Therapeutic Activities,Therapeutic Exercises Modalities Cold Pack/Ice Massage,Hot Packs,Infrared Therapy, Iontophoresis,Ultrasound Next Visit Focus/Plan Next Note Type Treatment Note Next Visit Plan Progress aquatic exercises as tolerated.
--- NOTE | 2021-07-12 14:35 | PT.OTN ---
Current Diagnoses Strain of muscle, fascia and tendon of right hip, initial encounter (06/28/21) Physical Therapy Treatment Note PT-OP-A Visit Information Start: 11/24/20 16:25 Freq: Status: Active Protocol: Document 07/12/21 14:30 [facility] (Rec: 07/12/21 14:35 [facility] [id number]) Out-Patient Physical Therapy Visit Information Visit Information Visit Type Aquatic Treatment Note Visit Start Time 10:15 Visit Stop Time 11:00 Total Visit Minutes 45 Visit Number 29 PT-OP-B Current Condition Start: 11/24/20 16:25 Freq: Status: Active Protocol: Document 01/20/21 14:30 [facility] (Rec: 01/20/21 15:23 [facility] [id number]) Current Condition History of Current Condition Onset Date May 2020 Current Complaints groin pain History of Current Condition Pain started 1 month after fall down 7 stairs, right leg got caught behind, had scrape and bone bruise lower right LE . Landed with left leg in front of her, right leg bent back behind and internally rotated. Started having ischial tuberosity pain 1 month after fall, then states pain began to zig zag around leg, then groin pain. [place] now primarily groin. States unable to alternate LE's going up stairs, but can going down . States her groin seizes up when she goes from prolonged sitting to standing, then works itself out a little. Denies N/T, tingling. Prior Treatments and Tests No imaging. PT-OP-C Subjective Start: 11/24/20 16:25 Freq: Status: Active Protocol: Document 07/12/21 14:30 [facility] (Rec: 07/12/21 14:35 [facility] [id number]) OP-PT Subjective Patient Comments Patient Comments States her hip feels a little revved up, very busy with the holidays. PT-OP-G Mobility & Gait Start: 11/24/20 16:25 Freq: Status: Active Protocol: Document 11/25/20 11:16 [facility] (Rec: 11/25/20 17:00 [facility] [id number]) OP Mobility Evaluation Bed Mobility Supine to and from Sit painful Transfers Sit to Stand painful, needs use of UE's OP Gait Assessment Gait Gait Assistance Required: Independent Assistive Devices Orthotic/Prosthetic Devices or Brace: No Gait Deviations General Gait Pattern Antalgic,Lateral Trunk Lean Factors Limiting Gait Function Factors Limiting Gait Function Pain Stair Climbing Evaluation Evaluation Level of Assist On Stairs Independent Devices Stair Climbing Assistive Devices Left Railing,Right Railing Comments Stair Climbing Comments step-to ascending, alternating descending both with bilateral UE support PT-OP-H Neuro Start: 11/24/20 16:25 Freq: Status: Active Protocol: Document 11/25/20 11:16 [facility] (Rec: 11/25/20 17:00 [facility] [id number]) Sensation Evaluation Gross Sensation Gross Sensation WNL Comments Summary Comments denies N/T PT-OP-J Posture/Palpation/Skin Start: 11/24/20 16:25 Freq: Status: Active Protocol: Document 11/25/20 11:16 [facility] (Rec: 11/25/20 17:00 [facility] [id number]) Posture Evaluation Position Standing L-Spine Posture Increased Lordosis Ankle/Foot Posture (L) Pronated,(R) Pronated Palpation Assessment Location psoas Palpation Location right Palpation Details nontender iliacus Palpation Location right Palpation Details nontender groin Palpation Location medial right Palpation Findings Tenderness PT-OP-K Range of Motion Start: 11/24/20 16:25 Freq: Status: Active Protocol: Document 11/25/20 11:16 [facility] (Rec: 11/25/20 17:00 [facility] [id number]) Hip Goniometric Range of Motion Hip right Hip ROM WFL No Flexion w/Knee Flexed 125 Straight Leg Raise 75 Extension 0 Abduction 35 Internal Rotation 40 External Rotation 80 Left Hip ROM WFL No Flexion w/Knee Flexed 125 Straight Leg Raise 80 Extension 0 Abduction 35 Internal Rotation 20 External Rotation 65 Hip ROM Limitations Hip ROM Limitations Soft Tissue Tightness,Pain Knee Goniometric Range of Motion Knee kianna Knee ROM WFL Yes PT-OP-L Special Tests Start: 11/24/20 16:25 Freq: Status: Active Protocol: Document 11/25/20 11:16 [facility] (Rec: 11/25/20 17:00 [facility] [id number]) Special Tests Hip Special Tests ingrid test Test Results negative kianna Anterior Labral Test Test Results negative kianna Scour Test Test Results negative kianna GRACE Test Results negative kianna PT-OP-M Strength Start: 11/24/20 16:25 Freq: Status: Active Protocol: Document 11/25/20 11:16 [facility] (Rec: 11/25/20 17:00 [facility] [id number]) Hip Strength Hip Manual Muscle Testing Right Flexion (L2) 4 Good Extension (S1) 3- Fair- Abduction 4 Good Adduction 4 Good External Rotation 4- Good- Internal Rotation 4 Good Comments pain with resisted flexion and extension Left Flexion (L2) 4 Good Extension (S1) 3- Fair- Abduction 4 Good Adduction 4 Good External Rotation 4- Good- Internal Rotation 4 Good Knee Strength Knee Manual Muscle Testing kianna Flexion (S2) 5 Normal Extension (L3) 5 Normal PT-OP-Q Treatments Start: 11/24/20 16:25 Freq: Status: Active Protocol: Document 05/05/21 08:15 [facility] (Rec: 05/05/21 08:36 [facility] [id number]) Cardio Equipment Treadmill Duration (Minutes) 10 Speed 1.3-1.6 Incline 1 Other cues for neutral pelvis, dec left hip drop Gym Equipment Shuttle Balance chains red Details bal and wt shift side to side Reps/Duration 3 min Comments cues for postural alignment Manual Therapy Treatment Soft Tissue Mobilization pin and stretch Body Location psoas Mobilization Type Sustained Pressure Comments with gentle IR/ER of hip 2 Mobilization Type Myofascial Release,Strumming, Sustained Pressure 1 Body Location adductor, gracilis, and sartorius tendons and musculature, iliopsoas, quad Mobilization Type Instrument Assisted,Myofascial Release,Strumming Intensity/Depth Deep Body Position Hooklying Comments massage roller PT-OP-R Modalities Start: 11/24/20 16:25 Freq: Status: Active Protocol: Document 05/05/21 08:15 [facility] (Rec: 05/05/21 08:36 [facility] [id number]) Hot Pack/Cold Pack Treatment Hot Pack Location right groin Patient Position Hooklying Treatment Duration (minutes) 15 Patient Tolerance Good Ultrasound Therapy Treatment right medial groin Treatment Duration (minutes) 8 Patient Position Supine Coupling Medium Ultrasound Gel Applicator Size (cm2) 2 Frequency Setting (mHz) 3 Mode Setting Continuous Duty Cycle 100% Intensity Setting (w/cm2) 1.2 PT-OP-S Aquatic Treatment Start: 06/21/21 15:03 Freq: Status: Active Protocol: Document 07/12/21 14:30 [facility] (Rec: 07/12/21 14:35 [facility] [id number]) Aquatics Treatment Water Walking Marching Level of Assistance Verbal Cues Forwards Water Level Chest Level Walking Equipment float its Level of Assistance Verbal Cues Upper Extremity Exercises hor ab/ad, flex/ext Body Position Standing Water Level Chest Level Reps/Duration 10x ea Comments kianna and unil with emphasis on core stab [place] Activities [place] Activities Bicycle,Bicycle Backwards, [place],Running,Hip Abduction/Adduction,Sit Kicks Other Activities 6 rounds of 30:30 intervals Equipment flotation belt PT-OP-T Assessment and Plan Start: 11/24/20 16:25 Freq: Status: Active Protocol: Document 07/12/21 14:30 [facility] (Rec: 07/12/21 14:35 [facility] [id number]) Physical Therapy Assessment Goals Three Impairment Decreased activity tolerance: lower extremity functional scale 14% Short Term Goal (STG) Improve LEFS to at least 30% 01/11/21: Improved to 56% STG Duration goal met Chemical Dependency Therapist Goal (LTG) Improve LEFS to at least 60% as measure of improved activity tolerance 01/10/21: 56% 03/31/21: goal met 04/28/21: goal upgraded to 75% due to planned trip [place] requiring a lot of walking. At this point hasn't been able to start walking program yet 06/21/21: good goal progress LTG Duration 07/23/21 Two Impairment antalgic gait, unable to alternate feet ascending stairs Short Term Goal (STG) Patient able to ambulate without a limp with least restrictive device 01/11/21: patient ambulating with minimal limp with no device, mostly met. STG Duration goal met Chemical Dependency Therapist Goal (LTG) Patient able to ambulate without a limp without a device at usual speed and with alternating pattern on stairs 01/20/21: goal progress, has habitual limp, improved with cues; verbal, and visual 03/31/21: continued goal progress, minimal limp with slowed, focused gait though unable to ambulate at usual speed without increase in gait deviations. No use of assistive device. 04/28/21: able to ambulate without cane but hip drop in stance on left, excess lordosis, and knee hyperextension 06/21/21: mostly met LTG Duration 07/23/21 One Impairment Pain right groin 12/31 Short Term Goal (STG) Decrease pain to no greater than 3/10 01/11/21: some goal progress, pain 1-2 at rest now, but still as high as 6/10 when gets up after sitting 03/31/21: goal met STG Duration goal met Long-Term Goal (LTG) Decrease pain to no greater than 1/10 with all usual activities 01/20/21: goal progress, still most painful when moving from sit to stand, but improved, especially with addition of joint mobilization right hip into inferior and posterior glide 03/31/21: good goal progress, pain varies 2-4/10, usually at low level 04/28/21: goal persists at 2-4/ 10, hasn't been able to start walking program yet, have started increasing in PT 06/21/21: pain level LTG Duration 07/23/21 Assessment Summary Assessment Patient reporting some increase in pain, revved up after being busy with holidays and doing some aquatic exercise on own. Encouraged to not overdo size of stride especially with deep water ex. Physical Therapy Plan Frequency and Duration Frequency of Treatment 1x/Week Duration of Treatment 4 weeks Plan of Care Start Date 06/21/21 Plan of Care End Date 07/23/21 Therapeutic Interventions Therapeutic Interventions Gait Training,Home Exercise Program,Joint Mobilizations, Manual Therapy,Neuromuscular Re-education,Patient/Caregiver Education,Self-Care/Home Management,Soft Tissue Mobilization,Therapeutic Activities,Therapeutic Exercises Modalities Cold Pack/Ice Massage,Hot Packs,Infrared Therapy, Iontophoresis,Ultrasound Next Visit Focus/Plan Next Note Type Treatment Note Next Visit Plan Issue written handout for aquatic exercises and discharge to independent [facility] and aquatic exercise program.
--- NOTE | 2021-09-27 09:23 | PT.OPDS ---
Current Diagnoses Strain of muscle, fascia and tendon of right hip, initial encounter (07/12/21) Visit Care Team Role Provider Type Isabell Fung DO Attending Provider Physician Family Provider Primary Care Provider Referring Provider Specialty: Family Practice Address: [address] [place] [address], [address], [address] Email: [email or web address] Visit Number Visit Number 29 Discharge Summary PT-OP-B Current Condition Start: 11/24/20 16:25 Freq: Status: Active Protocol: Document 01/20/21 14:30 [facility] (Rec: 01/20/21 15:23 [facility] [id number]) Current Condition History of Current Condition Onset Date May 2020 Current Complaints groin pain History of Current Condition Pain started 1 month after fall down 7 stairs, right leg got caught behind, had scrape and bone bruise lower right LE . Landed with left leg in front of her, right leg bent back behind and internally rotated. Started having ischial tuberosity pain 1 month after fall, then states pain began to zig zag around leg, then groin pain. [place]into now primarily groin. States unable to alternate LE's going up stairs, but can going down . States her groin seizes up when she goes from prolonged sitting to standing, then works itself out a little. Denies N/T, tingling. Prior Treatments and Tests No imaging. PT-OP-C Subjective Start: 11/24/20 16:25 Freq: Status: Active Protocol: Document 07/12/21 14:30 [facility] (Rec: 07/12/21 14:35 [facility] [id number]) OP-PT Subjective Patient Comments Patient Comments States her hip feels a little revved up, very busy with the holidays. PT-OP-G Mobility & Gait Start: 11/24/20 16:25 Freq: Status: Active Protocol: Document 11/25/20 11:16 [facility]AK (Rec: 11/25/20 17:00 [facility] [id number]) OP Mobility Evaluation Bed Mobility Supine to and from Sit painful Transfers Sit to Stand painful, needs use of UE's OP Gait Assessment Gait Gait Assistance Required: Independent Assistive Devices Orthotic/Prosthetic Devices or Brace: No Gait Deviations General Gait Pattern Antalgic,Lateral Trunk Lean Factors Limiting Gait Function Factors Limiting Gait Function Pain Stair Climbing Evaluation Evaluation Level of Assist On Stairs Independent Devices Stair Climbing Assistive Devices Left Railing,Right Railing Comments Stair Climbing Comments step-to ascending, alternating descending both with bilateral UE support PT-OP-H Neuro Start: 11/24/20 16:25 Freq: Status: Active Protocol: Document 11/25/20 11:16 SAK (Rec: 11/25/20 17:00 SAK [id number]) Sensation Evaluation Gross Sensation Gross Sensation WNL Comments Summary Comments denies N/T PT-OP-J Posture/Palpation/Skin Start: 11/24/20 16:25 Freq: Status: Active Protocol: Document 11/25/20 11:16 SAK (Rec: 11/25/20 17:00 SAK [id number]) Posture Evaluation Position Standing L-Spine Posture Increased Lordosis Ankle/Foot Posture (L) Pronated,(R) Pronated Palpation Assessment Location psoas Palpation Location right Palpation Details nontender iliacus Palpation Location right Palpation Details nontender groin Palpation Location medial right Palpation Findings Tenderness PT-OP-K Range of Motion Start: 11/24/20 16:25 Freq: Status: Active Protocol: Document 11/25/20 11:16 [facility]AK (Rec: 11/25/20 17:00 [facility] [id number]) Hip Goniometric Range of Motion Hip right Hip ROM WFL No Flexion w/Knee Flexed 125 Straight Leg Raise 75 Extension 0 Abduction 35 Internal Rotation 40 External Rotation 80 Left Hip ROM WFL No Flexion w/Knee Flexed 125 Straight Leg Raise 80 Extension 0 Abduction 35 Internal Rotation 20 External Rotation 65 Hip ROM Limitations Hip ROM Limitations Soft Tissue Tightness,Pain Knee Goniometric Range of Motion Knee kianna Knee ROM WFL Yes PT-OP-L Special Tests Start: 11/24/20 16:25 Freq: Status: Active Protocol: Document 11/25/20 11:16 SAK (Rec: 11/25/20 17:00 SAK [id number]) Special Tests Hip Special Tests ingrid test Test Results negative kianna Anterior Labral Test Test Results negative kianna Scour Test Test Results negative kianna GRACE Test Results negative kianna PT-OP-M Strength Start: 11/24/20 16:25 Freq: Status: Active Protocol: Document 11/25/20 11:16 SAK (Rec: 11/25/20 17:00 [facility] [id number]) Hip Strength Hip Manual Muscle Testing Right Flexion (L2) 4 Good Extension (S1) 3- Fair- Abduction 4 Good Adduction 4 Good External Rotation 4- Good- Internal Rotation 4 Good Comments pain with resisted flexion and extension Left Flexion (L2) 4 Good Extension (S1) 3- Fair- Abduction 4 Good Adduction 4 Good External Rotation 4- Good- Internal Rotation 4 Good Knee Strength Knee Manual Muscle Testing kianna Flexion (S2) 5 Normal Extension (L3) 5 Normal PT-OP-T Assessment and Plan Start: 11/24/20 16:25 Freq: Status: Active Protocol: Document 09/27/21 09:22 [facility] (Rec: 09/27/21 09:23 [facility] [id number]) Physical Therapy Plan Discharge Physical Therapy Discharge Reasons No Longer Attending PT Discharge Comments as above. Patient was demonstrating good understanding of aquatic therapy, will issue written aquatic exercise program via mail.
== END 2021-09-21 14:17 ==
LOC: PHYS 10:15
PROVIDERS: Family Provider Family Medicine; PCP Family Medicine; Referring Provider Family Medicine; Visit Provider Family Medicine
DX: S76.011A Strain of muscle, fascia and tendon of right hip, initial encounter (principal)
CPT/HCPCS: 97010; 97035; 97110; 97113; 97140; 97162

== ENCOUNTER 2022-01-14 15:45 | Emergency (ER) | payer MEDICARE, OTHER, SELFPAY ==
[2022-01-14] VITALS (25 sets, daily range): BP systolic 174–217; BP diastolic 77–119; PULSE 75–88; RESP 16–44; TEMP 37; O2SAT 89–98; BMI 36.6
--- NOTE | 2022-01-14 16:20 | DI.RAD.S_ITS ---
PROCEDURE: XR CHEST 1V INDICATIONS: tachycardia TECHNIQUE: One view of the chest was acquired. COMPARISON: [facility], CR, XR CHEST 2V, 03/19/2019, 9:08. FINDINGS: Surgical changes and devices: Overlying monitoring wires. Lungs and pleura: Lungs are clear. No pleural effusions or pneumothorax. Mediastinum: Mediastinal contours appear normal. Heart size is normal. Bones and chest wall: No suspicious bony lesions. Mild thoracolumbar scoliosis. Severe left glenohumeral joint degeneration. Overlying soft tissues appear unremarkable. IMPRESSION: No acute cardiopulmonary disease. Dictated by: Nichol Delgadillo M.D. on 01/14/2022 at 16:57 Approved by: Nichol Delgadillo M.D. on 01/14/2022 at 16:58
[2022-01-14 17:04] LABS: Alanine Aminotransferase 32 IU/L (<35); Albumin 4.4 g/dL (3.5-5.0); Albumin Globulin Ratio 1.5 (1.0-2.8); Alkaline Phosphatase 75 U/L (38-126); Aspartate Aminotransferase 37 IU/L (14-36); BUN Creatinine Ratio 23.2 (6-22); Bilirubin Total 0.7 mg/dL (0.2-1.3); Blood Urea Nitrogen 22 mg/dL (7-17); Calcium 9.3 mg/dL (8.4-10.2); Carbon Dioxide 23 mmol/L (22-32); Chloride 108 mmol/L (98-107); Creatine Kinase 136 U/L (30-135); Estimated Glomerular Filt Rate > 60 mL/min (>60); Globulin 2.9 g/dL (1.7-4.1); Glucose 144 mg/dL (80-110); HEMOLYSIS 38 (0-50); Lipase 361 U/L (23-300); Potassium 4.2 mmol/L (3.4-5.1); Sodium 140 mmol/L (137-145); Total Protein 7.3 g/dL (6.3-8.2)
[2022-01-14 17:10] LABS: Add Manual Diff / Slide Review NO; Basophils Absolute Auto 0 /uL (0-100); Basophils Percent Auto 0.4 % (0-2); Eosinophils Absolute Auto 300 /uL (0-450); Eosinophils Percent Auto 3.7 % (2-4); Hematocrit 41.6 % (36-46); Hemoglobin 14.4 g/dL (12.0-16.0); Lymphocytes Absolute Auto 1800 /uL (1100-4500); Lymphocytes Percent Auto 21.4 % (25-40); Mean Corpuscular HGB Conc 34.7 % (30-36); Mean Corpuscular Volume 89.2 fL (80-100); Monocytes Absolute Auto 600 /uL (0-900); Monocytes Percent Auto 7.9 % (3-14); Neutrophils Absolute Auto 5500 /uL (1500-7000); Neutrophils Percent Auto 66.6 % (50-75); Platelet Count 240 X10^3/uL (150-400); Red Blood Cell Count 4.66 X10^6/uL (4.0-5.2); Red Cell Distribution Width 13.2 % (11.6-14.8); White Blood Cell Count 8.2 X10^3/uL (4.5-11.0)
[2022-01-14 17:15] LABS: Troponin I < 0.012 ng/mL (0.01-0.034)
[2022-01-14 17:20] LABS: CKMB % Relative Index 1.3 % (1.5-5.0); Creatine Kinase MB 1.75 ng/mL (<2.37)
--- NOTE | 2022-01-14 17:22 | ED.ARRPALP ---
HPI - Arrhythmia/Palpitations <Artemio Barton, DO - Last Filed: 01/15/22 07:09> General Chief Complaint: Arrhythmia/Palpitations Stated Complaint: rapid heartbeat high blood pressure from [facility] Time Seen by Provider: 01/14/22 16:19 Source: patient Mode of arrival: Wheelchair Limitations: no limitations History of Present Illness HPI narrative: Patient is a 76-year-old female who was sent over from the walk-in clinic for evaluation of a rapid heart rate and high blood pressure see recently had a trip. While she was on this trip she had an episode where her heart rate was fast. She was asymptomatic. She was just checking her oxygen saturations with a friend's pulse oximeter noticed that her heart rate was as high as 120s. She has never had this in the past. She also has a history of high blood pressure. She has been taking her medications as directed. She has not had any recent changes in this medicine. She denies any cough. No lower extremity swelling. Has never had a blood clot in the past. Related Data Home Medications Medication Instructions Recorded Confirmed MULTIVITAMIN 1 cap PO Q DAY ##0 04/27/12 08/16/21 Vitamin E (VITAMIN E) 400 units PO QDAY ##0 03/18/13 08/16/21 omega 3-pqw-zhi-fish oil 1,000 mg Unknown PO ##0 02/09/17 08/16/21 (120 mg-180 mg) capsule (Fish Oil) Vitamin K2 PO ##0 11/23/18 08/16/21 Previous Rx's Medication Instructions Recorded disabled parking permit #1 ea 07/13/18 Tricor 145 mg tablet (fenofibrate 145 mg PO DAILY #90 tabs 08/16/21 nanocrystallized) albuterol sulfate 90 mcg/actuation See Rx Instructions .Route 08/16/21 aerosol inhaler (Ventolin HFA) .COMPLEX #18 grams Diovan 160 mg tablet (valsartan) 160 mg PO BID #180 tabs 09/07/21 hydrochlorothiazide 12.5 mg capsule 12.5 mg PO QAM #30 caps 01/14/22 Allergies Allergy/AdvReac Type Severity Reaction Status Date / Time gum mastic Allergy Severe rash, Verified 01/14/22 16:03 [From MASTISOL LIQUID blistering ADHESIVE] methyl salicylate Allergy Severe rash, Verified 01/14/22 16:03 [From MASTISOL LIQUID blistering ADHESIVE] storax Allergy Severe rash, Verified 01/14/22 16:03 [From MASTISOL LIQUID blistering ADHESIVE] tetracycline Allergy Mild RASH Verified 01/14/22 16:03 methylprednisolone Allergy Unknown Verified 01/14/22 16:03 adhesive AdvReac Unknown LONG, Verified 01/14/22 16:03 SKINNY, STERILE STRIPS: SURGERY Review of Systems <Artemio Barton DO - Last Filed: 01/15/22 07:09> Constitutional Constitutional: Denies fever(s) and Denies headache(s) ENT Ears, Nose, Mouth, and Throat: Denies vertigo, Denies dizziness and Denies headache(s) Cardiovascular Cardiovascular: Denies chest pain, Denies rapid heart rate, Reports dyspnea and Reports dyspnea on exertion Respiratory Respiratory: Reports dyspnea and Reports dyspnea on exertion Gastrointestinal Gastrointestinal: Denies abdominal pain, Denies nausea and Denies vomiting Genitourinary Genitourinary: Denies dysuria Musculoskeletal Musculoskeletal: Reports system reviewed and no additional complaints, except as documented Integumentary/Breasts Skin/Breast: Denies rash Neurologic Neurologic: Denies vertigo, Denies dizziness and Denies headache(s) Hematologic/Lymphatic On Anticoagulants: No Patient History <Artemio Barton DO - Last Filed: 01/15/22 07:09> Medical History Asthma Cataract Chronic back pain CTS (carpal tunnel syndrome) Essential hypertension (04/25/17) Greater trochanteric bursitis of left hip Hypercalcemia Hyperlipidemia Hyperparathyroidism Hypertension Left hamstring muscle strain Measles Obesity Osteoarthritis Strain of adductor nando muscle Strain of right psoas muscle Varicose veins of left lower extremity Surgical History (Updated 12/19/20 @ 10:09 by Isabell Fung DO) Anesthesia H/O colonoscopy with polypectomy (~10/2020) History of knee replacement (2016) History of spinal fusion (06/2009) History of spinal fusion (2011) Status post parathyroidectomy (2015) Status post tonsillectomy and adenoidectomy (1948) Family History (Updated 08/23/21 @ 10:06 by Isabell Fung DO) Father CAD (coronary artery disease) Hypertension Lewy body dementia Grandfather Heart disease Mother Leukemia Acute ITP Detached retina H/O splenectomy Grandfather Cancer of soft palate Social History household members: family (Sister) housing: house pets and animals: Yes (Cat and dog) Smoking Status: Never smoker alcohol intake: never Smoking Status: Never smoker Substance Use Type: does not use Exam <Artemio Barton DO - Last Filed: 01/15/22 07:09> Initial Vital Signs Initial Vital Signs: Vital Signs Pulse Rate 86 01/14/22 15:58 Const General: cooperative, comfortable, well developed and No ill appearing HENMT Head: normal to inspection and normocephalic Eyes General: Yes appearance normal, both eyes and all related structures Resp Effort & Inspection: normal respiratory effort and tachypneic Auscultation: clear to auscultation bilaterally Cardio Rate: regular rate Rhythm: regular rhythm GI Inspection: non-distended Skin General: no rashes or lesions noted Neuro General: patient alert, patient awake, patient oriented x3 and moves all extremities Extrem General: No edema Psych Appearance: grossly normal and well kempt <Hayder Bonner DO - Last Filed: 01/15/22 01:32> Initial Vital Signs Initial Vital Signs: Vital Signs Pulse Rate 86 01/14/22 15:58 Course <Artemio Barton DO - Last Filed: 01/15/22 07:09> Orders Ordered: Discontinued Medications Hydrochlorothiazide (Hydrochlorothiazide 25 Mg Tablet) 12.5 mg PO NOW ONE Stop: 01/14/22 20:15 Last Admin: 01/14/22 20:28 Dose: 12.5 mg Documented By: [facility] Labetalol HCl (Labetalol 20 Mg/4 Ml Syringe) 10 mg IV NOW ONE Stop: 01/14/22 22:22 Last Admin: 01/14/22 22:56 Dose: Not Given Documented By: AT Vital Signs Vital signs: Vital Signs - 8 hr 01/14/22 17:30 01/14/22 17:30 01/14/22 18:00 Pulse Rate 80 84 Respiratory Rate 25 H 17 Blood Pressure 202/94 H Pulse Oximetry 98 98 Oxygen Delivery Method 01/14/22 18:01 01/14/22 18:01 01/14/22 18:30 Pulse Rate 80 Respiratory Rate 16 Blood Pressure 196/91 H 206/93 H Pulse Oximetry 97 Oxygen Delivery Method 01/14/22 18:30 01/14/22 19:00 01/14/22 19:01 Pulse Rate 78 80 79 Respiratory Rate 18 21 24 Blood Pressure Pulse Oximetry 96 89 L 89 L Oxygen Delivery Method 01/14/22 19:01 01/14/22 19:30 01/14/22 19:30 Pulse Rate 78 Respiratory Rate 16 Blood Pressure 197/86 H 179/119 H Pulse Oximetry 96 Oxygen Delivery Method 01/14/22 20:00 01/14/22 20:30 01/14/22 20:55 Pulse Rate 85 82 79 Respiratory Rate 27 H 23 Blood Pressure Pulse Oximetry 96 97 97 Oxygen Delivery Method 01/14/22 20:55 01/14/22 21:00 01/14/22 21:00 Pulse Rate 79 Respiratory Rate 19 Blood Pressure 185/84 H 189/85 H Pulse Oximetry 94 Oxygen Delivery Method Room Air 01/14/22 21:30 01/14/22 21:31 01/14/22 21:31 Pulse Rate 79 79 Respiratory Rate 20 20 Blood Pressure 197/85 H Pulse Oximetry 95 96 Oxygen Delivery Method Room Air 01/14/22 22:00 01/14/22 22:01 01/14/22 22:01 Pulse Rate 80 85 Respiratory Rate 23 19 Blood Pressure 217/97 H Pulse Oximetry 96 97 Oxygen Delivery Method Room Air 01/14/22 22:31 01/14/22 22:31 01/14/22 22:46 Pulse Rate 78 75 Respiratory Rate Blood Pressure 174/77 H Pulse Oximetry 97 93 Oxygen Delivery Method Room Air 01/14/22 22:48 Pulse Rate Respiratory Rate Blood Pressure 189/81 H Pulse Oximetry Oxygen Delivery Method <Hayder Bonner DO - Last Filed: 01/15/22 01:32> Orders Ordered: Discontinued Medications Hydrochlorothiazide (Hydrochlorothiazide 25 Mg Tablet) 12.5 mg PO NOW ONE Stop: 01/14/22 20:15 Last Admin: 01/14/22 20:28 Dose: 12.5 mg Documented By: [facility] Labetalol HCl (Labetalol 20 Mg/4 Ml Syringe) 10 mg IV NOW ONE Stop: 01/14/22 22:22 Last Admin: 01/14/22 22:56 Dose: Not Given Documented By: AT Vital Signs Vital signs: Vital Signs - 8 hr 01/14/22 17:30 01/14/22 17:30 01/14/22 18:00 Pulse Rate 80 84 Respiratory Rate 25 H 17 Blood Pressure 202/94 H Pulse Oximetry 98 98 Oxygen Delivery Method 01/14/22 18:01 01/14/22 18:01 01/14/22 18:30 Pulse Rate 80 Respiratory Rate 16 Blood Pressure 196/91 H 206/93 H Pulse Oximetry 97 Oxygen Delivery Method 01/14/22 18:30 01/14/22 19:00 01/14/22 19:01 Pulse Rate 78 80 79 Respiratory Rate 18 21 24 Blood Pressure Pulse Oximetry 96 89 L 89 L Oxygen Delivery Method 01/14/22 19:01 01/14/22 19:30 01/14/22 19:30 Pulse Rate 78 Respiratory Rate 16 Blood Pressure 197/86 H 179/119 H Pulse Oximetry 96 Oxygen Delivery Method 01/14/22 20:00 01/14/22 20:30 01/14/22 20:55 Pulse Rate 85 82 79 Respiratory Rate 27 H 23 Blood Pressure Pulse Oximetry 96 97 97 Oxygen Delivery Method 01/14/22 20:55 01/14/22 21:00 01/14/22 21:00 Pulse Rate 79 Respiratory Rate 19 Blood Pressure 185/84 H 189/85 H Pulse Oximetry 94 Oxygen Delivery Method Room Air 01/14/22 21:30 01/14/22 21:31 01/14/22 21:31 Pulse Rate 79 79 Respiratory Rate 20 20 Blood Pressure 197/85 H Pulse Oximetry 95 96 Oxygen Delivery Method Room Air 01/14/22 22:00 01/14/22 22:01 01/14/22 22:01 Pulse Rate 80 85 Respiratory Rate 23 19 Blood Pressure 217/97 H Pulse Oximetry 96 97 Oxygen Delivery Method Room Air 01/14/22 22:31 01/14/22 22:31 01/14/22 22:46 Pulse Rate 78 75 Respiratory Rate Blood Pressure 174/77 H Pulse Oximetry 97 93 Oxygen Delivery Method Room Air 01/14/22 22:48 Pulse Rate Respiratory Rate Blood Pressure 189/81 H Pulse Oximetry Oxygen Delivery Method MDM - Arrhythmia/Palpitations <Artemio Barton DO - Last Filed: 01/15/22 07:09> Lab Data Attestation: I reviewed the patient's lab results. Result diagrams: 01/14/22 16:06 01/14/22 16:06 Labs: Lab Results 01/14/22 01/14/22 01/14/22 Range/Units 16:06 16:06 16:06 WBC 8.2 (4.5-11.0) X10^3/uL RBC 4.66 (4.0-5.2) X10^6/uL Hgb 14.4 (12.0-16.0) g/dL Hct 41.6 (36-46) % MCV 89.2 (80-100) fL MCH 31.0 (26-34) PG MCHC 34.7 (30-36) % RDW 13.2 (11.6-14.8) % Plt Count 240 (150-400) X10^3/uL Neut % (Auto) 66.6 (50-75) % Lymph % (Auto) 21.4 L (25-40) % Hart % (Auto) 7.9 (3-14) % Eos % (Auto) 3.7 (2-4) % Baso % (Auto) 0.4 (0-2) % Neut # (Auto) 5500 (3615-1486) /uL Lymph # (Auto) 1800 (8155-6881) /uL Hart # (Auto) 600 (0-900) /uL Eos # (Auto) 300 (0-450) /uL Baso # (Auto) 0 (0-100) /uL D-Dimer < 200 (<230) ng/mL ABG pH (7.35-7.45) ABG pCO2 (35-45) mmHg ABG pO2 (80-100) mmHg ABG HCO3 (22-26) mmol/L ABG Total CO2 (21-31) mmol/L ABG O2 Saturation (95-100) % ABG Base Excess (-2-2) mmol/L FiO2 Sodium 140 (137-145) mmol/L Potassium 4.2 (3.4-5.1) mmol/L Chloride 108 H (98-107) mmol/L Carbon Dioxide 23 (22-32) mmol/L BUN 22 H (7-17) mg/dL Creatinine 0.95 (0.52-1.04) mg/dL Estimated GFR > 60 (>60) mL/min BUN/Creatinine Ratio 23.2 H (6-22) Glucose 144 H (80-110) mg/dL Calcium 9.3 (8.4-10.2) mg/dL Total Bilirubin 0.7 (0.2-1.3) mg/dL AST 37 H (14-36) IU/L ALT 32 (<35) IU/L Alkaline Phosphatase 75 (38-126) U/L Total Creatine Kinase 136 H (30-135) U/L CK-MB (CK-2) 1.75 (<2.37) ng/mL CK-MB (CK-2) Rel Index 1.3 L (1.5-5.0) % Troponin I < 0.012 (0.01-0.034) ng/mL NT-Pro-B Natriuret Pep (<450) pg/mL Total Protein 7.3 (6.3-8.2) g/dL Albumin 4.4 (3.5-5.0) g/dL Globulin 2.9 (1.7-4.1) g/dL Albumin/Globulin Ratio 1.5 (1.0-2.8) Lipase 361 H (23-300) U/L SARS-CoV-2 (PCR) (Negative) 01/14/22 01/14/22 01/14/22 Range/Units 19:25 20:12 20:22 WBC (4.5-11.0) X10^3/uL RBC (4.0-5.2) X10^6/uL Hgb (12.0-16.0) g/dL Hct (36-46) % MCV (80-100) fL MCH (26-34) PG MCHC (30-36) % RDW (11.6-14.8) % Plt Count (150-400) X10^3/uL Neut % (Auto) (50-75) % Lymph % (Auto) (25-40) % Hart % (Auto) (3-14) % Eos % (Auto) (2-4) % Baso % (Auto) (0-2) % Neut # (Auto) (4883-6868) /uL Lymph # (Auto) (8164-7598) /uL Hart # (Auto) (0-900) /uL Eos # (Auto) (0-450) /uL Baso # (Auto) (0-100) /uL D-Dimer (<230) ng/mL ABG pH 7.37 (7.35-7.45) ABG pCO2 40.8 (35-45) mmHg ABG pO2 93 (80-100) mmHg ABG HCO3 24 (22-26) mmol/L ABG Total CO2 25 (21-31) mmol/L ABG O2 Saturation 97 (95-100) % ABG Base Excess -2.0 (-2-2) mmol/L FiO2 21 Sodium (137-145) mmol/L Potassium (3.4-5.1) mmol/L Chloride (98-107) mmol/L Carbon Dioxide (22-32) mmol/L BUN (7-17) mg/dL Creatinine (0.52-1.04) mg/dL Estimated GFR (>60) mL/min BUN/Creatinine Ratio (6-22) Glucose (80-110) mg/dL Calcium (8.4-10.2) mg/dL Total Bilirubin (0.2-1.3) mg/dL AST (14-36) IU/L ALT (<35) IU/L Alkaline Phosphatase (38-126) U/L Total Creatine Kinase 112 (30-135) U/L CK-MB (CK-2) 1.53 (<2.37) ng/mL CK-MB (CK-2) Rel Index 1.4 L (1.5-5.0) % Troponin I < 0.012 (0.01-0.034) ng/mL NT-Pro-B Natriuret Pep 179 (<450) pg/mL Total Protein (6.3-8.2) g/dL Albumin (3.5-5.0) g/dL Globulin (1.7-4.1) g/dL Albumin/Globulin Ratio (1.0-2.8) Lipase (23-300) U/L SARS-CoV-2 (PCR) Negative (Negative) Imaging Data Chest x-ray: Radiologist's Impresson: [address] [address] XRay Report Signed Patient: Jacinda Villalpando MR#: [id number] : 1945 Acct:[id number] Age/Sex: 76 / F Date of Service: 01/14/22 Loc: ED Accession Number: [id number] ?? Procedure: XR chest 1V Ordering Provider: Artemio Barton D.O. PROCEDURE:? XR CHEST 1V ? INDICATIONS:? tachycardia ? TECHNIQUE:? One view of the chest was acquired.? ? COMPARISON:? [facility], CR, XR CHEST 2V, 03/19/2019, 9:08. ? FINDINGS:? ? Surgical changes and devices:? Overlying monitoring wires. ? Lungs and pleura:? Lungs are clear.? No pleural effusions or pneumothorax.? ? Mediastinum:? Mediastinal contours appear normal.? Heart size is normal.? ? Bones and chest wall:? No suspicious bony lesions.? Mild thoracolumbar scoliosis.? Severe left glenohumeral joint degeneration.? Overlying soft tissues appear unremarkable.? ? IMPRESSION:? No acute cardiopulmonary disease.? ? ? Dictated by: Nichol Delgadillo M.D. on 01/14/2022 at 16:57 ? ? Approved by: Nichol Delgadillo M.D. on 01/14/2022 at 16:58?? ECG Data Attestation: I personally reviewed and interpreted this ECG as follows: Interpretation: Sinus rhythm Ventricular rate 89 Normal axis Normal QRS Normal QTC Nonspecific ST T wave changes MDM Narrative Medical decision making narrative: Labs unremarkable. EKG is unremarkable. Troponins negative. Chest x-ray is unremarkable. No lower extremity swelling. D-dimer is negative. Was having a discussion with her regarding her blood pressure and adding a new medication as it sounds like she is not adequately controlled at home on her current regimen. What ever having this discussion she did have a desaturation episode to the high 80s. She seemed to be asymptomatic from this. Had the patient ambulate around the department. She states she felt well but she looked very short of breath and tachypneic although she also did not become hypoxic. Patient's friend at bedside states that the patient is not acting ?normal ?with regard to her respirations. Plan will be is to add a BNP onto her labs and also repeat a troponin and despite the negative D-dimer obtaining a CT scan of the chest to evaluate for pulmonary embolism. Care turned over to Dr. Bonner to follow-up and disposition. <Hayder Bonner, DO - Last Filed: 01/15/22 01:32> Lab Data Labs: Lab Results 01/14/22 01/14/22 01/14/22 Range/Units 16:06 16:06 16:06 WBC 8.2 (4.5-11.0) X10^3/uL RBC 4.66 (4.0-5.2) X10^6/uL Hgb 14.4 (12.0-16.0) g/dL Hct 41.6 (36-46) % MCV 89.2 (80-100) fL MCH 31.0 (26-34) PG MCHC 34.7 (30-36) % RDW 13.2 (11.6-14.8) % Plt Count 240 (150-400) X10^3/uL Neut % (Auto) 66.6 (50-75) % Lymph % (Auto) 21.4 L (25-40) % Hart % (Auto) 7.9 (3-14) % Eos % (Auto) 3.7 (2-4) % Baso % (Auto) 0.4 (0-2) % Neut # (Auto) 5500 (5003-3991) /uL Lymph # (Auto) 1800 (6540-2683) /uL Hart # (Auto) 600 (0-900) /uL Eos # (Auto) 300 (0-450) /uL Baso # (Auto) 0 (0-100) /uL D-Dimer < 200 (<230) ng/mL ABG pH (7.35-7.45) ABG pCO2 (35-45) mmHg ABG pO2 (80-100) mmHg ABG HCO3 (22-26) mmol/L ABG Total CO2 (21-31) mmol/L ABG O2 Saturation (95-100) % ABG Base Excess (-2-2) mmol/L FiO2 Sodium 140 (137-145) mmol/L Potassium 4.2 (3.4-5.1) mmol/L Chloride 108 H (98-107) mmol/L Carbon Dioxide 23 (22-32) mmol/L BUN 22 H (7-17) mg/dL Creatinine 0.95 (0.52-1.04) mg/dL Estimated GFR > 60 (>60) mL/min BUN/Creatinine Ratio 23.2 H (6-22) Glucose 144 H (80-110) mg/dL Calcium 9.3 (8.4-10.2) mg/dL Total Bilirubin 0.7 (0.2-1.3) mg/dL AST 37 H (14-36) IU/L ALT 32 (<35) IU/L Alkaline Phosphatase 75 (38-126) U/L Total Creatine Kinase 136 H (30-135) U/L CK-MB (CK-2) 1.75 (<2.37) ng/mL CK-MB (CK-2) Rel Index 1.3 L (1.5-5.0) % Troponin I < 0.012 (0.01-0.034) ng/mL NT-Pro-B Natriuret Pep (<450) pg/mL Total Protein 7.3 (6.3-8.2) g/dL Albumin 4.4 (3.5-5.0) g/dL Globulin 2.9 (1.7-4.1) g/dL Albumin/Globulin Ratio 1.5 (1.0-2.8) Lipase 361 H (23-300) U/L SARS-CoV-2 (PCR) (Negative) 01/14/22 01/14/22 01/14/22 Range/Units 19:25 20:12 20:22 WBC (4.5-11.0) X10^3/uL RBC (4.0-5.2) X10^6/uL Hgb (12.0-16.0) g/dL Hct (36-46) % MCV (80-100) fL MCH (26-34) PG MCHC (30-36) % RDW (11.6-14.8) % Plt Count (150-400) X10^3/uL Neut % (Auto) (50-75) % Lymph % (Auto) (25-40) % Hart % (Auto) (3-14) % Eos % (Auto) (2-4) % Baso % (Auto) (0-2) % Neut # (Auto) (0494-0414) /uL Lymph # (Auto) (1767-9143) /uL Hart # (Auto) (0-900) /uL Eos # (Auto) (0-450) /uL Baso # (Auto) (0-100) /uL D-Dimer (<230) ng/mL ABG pH 7.37 (7.35-7.45) ABG pCO2 40.8 (35-45) mmHg ABG pO2 93 (80-100) mmHg ABG HCO3 24 (22-26) mmol/L ABG Total CO2 25 (21-31) mmol/L ABG O2 Saturation 97 (95-100) % ABG Base Excess -2.0 (-2-2) mmol/L FiO2 21 Sodium (137-145) mmol/L Potassium (3.4-5.1) mmol/L Chloride (98-107) mmol/L Carbon Dioxide (22-32) mmol/L BUN (7-17) mg/dL Creatinine (0.52-1.04) mg/dL Estimated GFR (>60) mL/min BUN/Creatinine Ratio (6-22) Glucose (80-110) mg/dL Calcium (8.4-10.2) mg/dL Total Bilirubin (0.2-1.3) mg/dL AST (14-36) IU/L ALT (<35) IU/L Alkaline Phosphatase (38-126) U/L Total Creatine Kinase 112 (30-135) U/L CK-MB (CK-2) 1.53 (<2.37) ng/mL CK-MB (CK-2) Rel Index 1.4 L (1.5-5.0) % Troponin I < 0.012 (0.01-0.034) ng/mL NT-Pro-B Natriuret Pep 179 (<450) pg/mL Total Protein (6.3-8.2) g/dL Albumin (3.5-5.0) g/dL Globulin (1.7-4.1) g/dL Albumin/Globulin Ratio (1.0-2.8) Lipase (23-300) U/L SARS-CoV-2 (PCR) Negative (Negative) Imaging Data CT scan - chest: Radiologist's Impresson: [address] [address] [address] Scan Report Signed Patient: Jacinda Villalpando MR#: [id number] : 1945 Acct:[id number] Age/Sex: 76 / F Date of Service: 01/14/22 Loc: ED Accession Number: [id number] ?? Procedure: CT angio chest PE protocol Ordering Provider: Artemio Barton D.O. PROCEDURE:? CT ANGIO CHEST PE PROTOCOL ? INDICATIONS:? Chest pain, shortness of breath, tachycardia ? TECHNIQUE:? After the administration of intravenous contrast, 2 mm thick sections acquired from the pulmonary apices to the posterior costophrenic angles.? 3-dimensional maximum intensity projection (MIP) coronal and sagittal reformats were then acquired through the thorax.? For radiation dose reduction, the following was used:? automated exposure control, adjustment of mA and/or kV according to patient size.? ? COMPARISON:? None. ? FINDINGS:? Image quality:? Limited by bolus timing. ? Pulmonary arteries:? The bolus of the contrast injection is suboptimal.? The main pulmonary artery measures approximately 115 Hounsfield units.? Pulmonary artery densities are greater than 250 Hounsfield units are considered to be ideal for evaluation of pulmonary embolism. ? However, no large or central pulmonary emboli are seen on these images.? No pulmonary emboli are seen more distally, although sensitivity for detection of such is limited on this study.? ? ? Lungs and pleura:? There is a left lower lobe subpleural nodule seen laterally, as on series 5, image 200 measuring 8 x 7 mm. No pleural effusions or pneumothorax.? Central and peripheral airways are patent.? ? Mediastinum:? Heart size is normal, without pericardial effusion.? [id number] coronary artery calcification can be seen.? No mediastinal or hilar adenopathy.? Thoracic aorta is normal in caliber and enhancement.? Esophagus is normal in caliber, without hiatal hernia.? ? Bones and chest wall:? No suspicious bony lesions.? Age-appropriate bony degenerative changes are seen. ? Ribs and thoracic spine appear intact throughout.? Thyroid gland demonstrates no significant abnormality.? No axillary or supraclavicular adenopathy.? ? Abdomen:? Diffuse fatty liver infiltration is noted.? Within the left liver, there is a water density cyst seen measuring 2 cm. The visualized portions of the upper abdominal structures are otherwise unremarkable for imaging technique. ? ? IMPRESSION:? No large or central pulmonary emboli can be seen.? However, the bolus timing limits evaluation for smaller/distal pulmonary emboli.? If there is strong clinical concern for pulmonary embolism, please consider a repeat study in 24 hours. ? 8 x 7 mm left lower lobe pulmonary nodule incidentally noted.? A follow-up noncontrast chest CT is recommended in 6-12 months.? Incidental note is made of: [id number] coronary artery calcification Fatty liver infiltration Simple liver cyst ? Dictated by: Adam Hill M.D. on 01/14/2022 at 19:14 ? ? Approved by: Adam Hill M.D. on 01/14/2022 at 19:18 ? [facility] Narrative Medical decision making narrative: Labs unremarkable. EKG is unremarkable. Troponins negative. Chest x-ray is unremarkable. No lower extremity swelling. D-dimer is negative. Was having a discussion with her regarding her blood pressure and adding a new medication as it sounds like she is not adequately controlled at home on her current regimen. What ever having this discussion she did have a desaturation episode to the high 80s. She seemed to be asymptomatic from this. Had the patient ambulate around the department. She states she felt well but she looked very short of breath and tachypneic although she also did not become hypoxic. Patient's friend at bedside states that the patient is not acting ?normal ?with regard to her respirations. Plan will be is to add a BNP onto her labs and also repeat a troponin and despite the negative D-dimer obtaining a CT scan of the chest to evaluate for pulmonary embolism. Care turned over to Dr. Bonner to follow-up and disposition. [1900] (Ha) Patient received in sign out from [[facility]]. I have reviewed the clinical course and performed an independent history and physical exam. CTA has returned and shows no significant findings. Blood pressure had initially been continuing to rise, patient had not taken her nightly Diovan, furthermore she had been holding her urine in becoming quite uncomfortable, after urinating her BP improved to the 170s, labetalol had been ordered, but cancelled at this point. Patient no longer in respiratory distress. BP still elevated, but certainly better. She will go home and take her nightly dose of Diovan and citrus picker Rx tomorrow for HCTZ. There is no evidence of pneumonia, CHF, pulmonary embolism or myocardial infarction. This is likely a consequence of elevated blood pressure. She has been given extensive return precautions and questions have been answered to her apparent satisfaction Discharge Plan Departure Patient Disposition: Home Clinical Impression: Benign essential HTN, Acute dyspnea, Incidental pulmonary nodule Instructions: Essential Hypertension, DI for Shortness of Breath Activity Restrictions/Additional Instructions: *You have been diagnosed with [hypertension and shortness of breath. As we discussed her history and physical exam as well as labs and imaging including CT scan are reassuring and there is no evidence of pneumonia, blood clot or heart attack.] *What to do: *Please continue to take your regular medications as directed. [x ] New medication prescriptions sent to your pharmacy: [[facility] ] [ ] New medication written as a paper prescription [ ] No new medications given *Please follow up with your primary care provider in 2-3 days, call for an appointment. Let them know you were seen in the Emergency Department and that we ask that you be seen in follow up. We will electronically transmit a record of today's note if your PCP is in our system *If you do not have a primary care provider please contact the [facility] Resource line at [phone]. They will ask some questions about your medical history and help get you set up with a doctor in the community. *Return to Emergency Department if you should have any new, worsening or concerning symptoms, such as [fever greater than 101 F, shaking chills, worsening pain, persistent vomiting or other bothersome symptoms] Prescriptions: New hydrochlorothiazide 12.5 mg capsule 12.5 mg PO QAM Qty: 30 0RF No Action MULTIVITAMIN 1 cap PO Q DAY Qty: 0 Vitamin E (VITAMIN E) 400 units PO QDAY Qty: 0 omega 3-eki-eic-fish oil [Fish Oil] 1,000 MG capsule Unknown PO Qty: 0 Vitamin K2 PO Qty: 0 valsartan [Diovan] 160 mg tablet 160 mg PO BID Qty: 180 3RF Rx Instructions: Take one tablet by mouth twice a day. (DME) disabled parking permit Qty: 1 0RF Dose Instruction: As directed Rx Instructions: As directed due to ability to walk more than 200 feet limited by medical condition. fenofibrate nanocrystallized [Tricor] 145 mg tablet 145 mg PO DAILY Qty: 90 3RF albuterol sulfate [Ventolin HFA] 90 mcg/actuation HFA aerosol inhaler See Rx Instructions .ROUTE .COMPLEX Qty: 18 2RF Dose Instruction: INHALE 2 PUFFS BY MOUTH EVERY 4 HOURS NEEDED FOR SHORTNESS OF BREATH Rx Instructions: INHALE 2 PUFFS BY MOUTH EVERY 4 HOURS NEEDED FOR SHORTNESS OF BREATH Referrals: Isabell Fung, [Primary Care Provider] - Visit Report Forms: Patient Portal/API
[2022-01-14 18:01] LABS: D Dimer < 200 ng/mL (<230)
--- NOTE | 2022-01-14 19:20 | PC.NURSE ---
Ambulated pt down hallway, oxygen saturations maintained 94% and above, heart rate ranged from 95-101. Labored breathing noted although pt denies SOB, pt steady gait. Dr. Barton witnessed and updated on progress.
--- NOTE | 2022-01-14 19:21 | DI.CT.S_ITS ---
PROCEDURE: CT ANGIO CHEST PE PROTOCOL INDICATIONS: Chest pain, shortness of breath, tachycardia TECHNIQUE: After the administration of intravenous contrast, 2 mm thick sections acquired from the pulmonary apices to the posterior costophrenic angles. 3-dimensional maximum intensity projection (MIP) coronal and sagittal reformats were then acquired through the thorax. For radiation dose reduction, the following was used: automated exposure control, adjustment of mA and/or kV according to patient size. COMPARISON: None. FINDINGS: Image quality: Limited by bolus timing. Pulmonary arteries: The bolus of the contrast injection is suboptimal. The main pulmonary artery measures approximately 115 Hounsfield units. Pulmonary artery densities are greater than 250 Hounsfield units are considered to be ideal for evaluation of pulmonary embolism. However, no large or central pulmonary emboli are seen on these images. No pulmonary emboli are seen more distally, although sensitivity for detection of such is limited on this study. Lungs and pleura: There is a left lower lobe subpleural nodule seen laterally, as on series 5, image 200 measuring 8 x 7 mm. No pleural effusions or pneumothorax. Central and peripheral airways are patent. Mediastinum: Heart size is normal, without pericardial effusion. [id number] coronary artery calcification can be seen. No mediastinal or hilar adenopathy. Thoracic aorta is normal in caliber and enhancement. Esophagus is normal in caliber, without hiatal hernia. Bones and chest wall: No suspicious bony lesions. Age-appropriate bony degenerative changes are seen. Ribs and thoracic spine appear intact throughout. Thyroid gland demonstrates no significant abnormality. No axillary or supraclavicular adenopathy. Abdomen: Diffuse fatty liver infiltration is noted. Within the left liver, there is a water density cyst seen measuring 2 cm. The visualized portions of the upper abdominal structures are otherwise unremarkable for imaging technique. IMPRESSION: No large or central pulmonary emboli can be seen. However, the bolus timing limits evaluation for smaller/distal pulmonary emboli. If there is strong clinical concern for pulmonary embolism, please consider a repeat study in 24 hours. 8 x 7 mm left lower lobe pulmonary nodule incidentally noted. A follow-up noncontrast chest CT is recommended in 6-12 months. Incidental note is made of: [id number]-[id number] coronary artery calcification Fatty liver infiltration Simple liver cyst Dictated by: Adam Hill M.D. on 01/14/2022 at 19:14 Approved by: Adam Hill M.D. on 01/14/2022 at 19:18
[2022-01-14 19:47] LABS: Creatine Kinase 112 U/L (30-135)
[2022-01-14 20:00] LABS: NT-proBNP (BNP-Adult 18+) 179 pg/mL (<450); Troponin I < 0.012 ng/mL (0.01-0.034)
[2022-01-14 20:02] LABS: CKMB % Relative Index 1.4 % (1.5-5.0); Creatine Kinase MB 1.53 ng/mL (<2.37)
[2022-01-14] MEDS: hydroCHLOROthiazide 25 MG TABLET 12.5 MG PO (20:28)
[2022-01-14 20:38] LABS: Fractionated Inspired Oxygen 21; HCO3 ABG 24 mmol/L (22-26); Oxygen Saturation ABG 97 % (95-100); PCO2 ABG 40.8 mmHg (35-45); PO2 ABG 93 mmHg (80-100); TCO2 ABG 25 mmol/L (21-31); pH ABG 7.37 (7.35-7.45)
[2022-01-14 20:43] LABS: COVID19 -Nasal RAPID Negative (Negative)
== END 2022-01-14 22:59 | disposition home or self-care (01) ==
PROVIDERS: Emergency Medicine; Emergency Provider Emergency Medicine; Family Provider Family Medicine; PCP Family Medicine
DX: I10 Essential (primary) hypertension (principal); R06.00 Dyspnea, unspecified; R07.9 Chest pain, unspecified; R91.1 Solitary pulmonary nodule; Z20.822 Contact with and (suspected) exposure to COVID-19
CPT/HCPCS: 36415; 36600; 71045; 71275; 80053; 82550; 82553; 82805; 83690; 83880; 84484; 85025; 85379; 87635; 93005; 99284; C9803

== ENCOUNTER → 2022-01-22 10:02 | Outpatient (CLI) | payer MEDICARE, OTHER, SELFPAY | PROVIDERS: Family Provider Family Medicine; PCP Pediatrics; Visit Provider Physician Assistant | DX: N39.0 Urinary tract infection, site not specified (principal) | CPT/HCPCS: 87086 ==

== ENCOUNTER → 2022-01-26 09:41 | Outpatient (CLI) | payer MEDICARE, OTHER, SELFPAY ==
--- NOTE | 2022-02-02 08:09 | PM.CARDMON.1 ---
Pharmacy Director Report Referral & Results Date Patient Seen: 01/26/22 Requesting provider: Deion Ordoñez Indication: Palpitations Duration of monitoring (days): 1 Diary information: There were 3 patient triggered events and 1 patient diary entry Patient events were associated with sinus rhythm only Data: Minimum heart rate identified was 63 beats per minute at 22:17 on 01/26/2022 Maximum overall heart rate was 113 beats per minute at 10:04 on 01/26/2022 Less than 1% of identified beats were ventricular or supraventricular ectopic in origin, which would classify them as rare. There were no pauses of 3 seconds or longer, episodes of atrial fibrillation, or episodes of SVT identified on this study Impression: Normal 1 day cardiac exercise physiologist without evidence of any notable dysrhythmia
--- NOTE | 2022-02-23 09:03 | PM.CARDMON.1 ---
Technical Sales Representatives Report Referral & Results Date Patient Seen: 01/26/22 Requesting provider: Deion Ordoñez Indication: Palpitations Duration of monitoring (days): 7 Diary information: There was 1 patient triggered event and 3 patient diary entries. All 4 of these patient events were associated with sinus rhythm only Data: Minimum heart rate identified was 65 beats per minute at 04:16 on 02/10/2022 Maximum heart rate was 147 beats per minute at 19:25 on 02/12/2022 Less than 1% of identified beats were ventricular or supraventricular ectopic in origin, which would classify them as rare. There were no pauses of 3 seconds or longer, or runs of atrial fibrillation or SVT identified on this study Impression: Normal 7 day quality assurance monitor chassis that fails to demonstrate any etiology for patient's sense of palpitations
== END ==
PROVIDERS: Family Provider Family Medicine; PCP Pediatrics; Referring Provider Pediatrics; Visit Provider Pediatrics
DX: R00.2 Palpitations (principal); R42 Dizziness and giddiness
CPT/HCPCS: 93242; 93244

== ENCOUNTER → 2022-03-23 09:37 | Outpatient (CLI) | payer MEDICARE, OTHER, SELFPAY | PROVIDERS: Family Provider Family Medicine; PCP Pediatrics; Referring Provider Pediatrics; Visit Provider Pediatrics | DX: Z13.820 Encounter for screening for osteoporosis (principal); S46.912A Strain of unspecified muscle, fascia and tendon at shoulder and upper arm level, left arm, initial encounter; Z78.0 Asymptomatic menopausal state | CPT/HCPCS: 77080 ==

== ENCOUNTER 2022-03-28 08:09 | Emergency (ER) | payer MEDICARE, OTHER, SELFPAY ==
[2022-03-28 08:15] VITALS: BP 200/96; PULSE 84; RESP 16; TEMP 36.3; O2SAT 97; BMI 29.8
[2022-03-28 08:37] LABS: RBC Urine 30-100/HPF (0-5/HPF); WBC Urine 30-100/HPF (0-5/HPF)
[2022-03-28 08:38] LABS: Bacteria Urine None Seen; Culture Indicated Urine Specimen Cultured; Squamous Epithelial Cell Urine 0-1 /HPF (0-5/HPF); Transitional Epi Cells Urine 1-5/HPF (0-5/HPF)
[2022-03-28] MEDS: NITROFURANTOIN ER 100 MG CAPSULE PO (08:41)
[2022-03-28] MEDS: PHENAZOPYRIDINE 100 MG TABLET 200 MG PO (08:42)
--- NOTE | 2022-03-28 08:43 | ED.FEMALEGU ---
HPI - Female Genitourinary General Chief complaint: Urogenital-Female Stated complaint: UTI Time Seen by Provider: 03/28/22 08:10 History of Present Illness HPI Narrative: This 76-year-old woman comes to the emergency department today with dysuria because the urgent care clinic is closed. She is somewhat embarrassed about coming to the emergency department for this problem but nonetheless is feeling very uncomfortable and would like to be assessed for possible UTI. Other than dysuria, frequency and urgency, she has no other symptoms. Specifically, no fever, no vomiting, no abdominal pain or flank pain. Past medical history remarkable only for hypertension and previous UTIs. Related Data Home Medications Medication Instructions Recorded Confirmed quercetin PO DAILY 01/18/22 03/10/22 cholecalciferol (vitamin D3) 25 25 mcg PO DAILY 01/22/22 03/10/22 mcg (1,000 unit) capsule zinc acetate 25 mg (zinc) capsule 25 mg PO DAILY 01/22/22 03/10/22 Vinia PO 03/10/22 coenzyme Q10 PO 03/10/22 03/10/22 ergocalciferol (vitamin D2) 10 mcg 10 mcg PO DAILY 03/10/22 03/10/22 (400 unit) tablet metoprolol succinate 50 mg 50 mg PO DAILY 03/10/22 03/10/22 tablet,extended release 24 hr multivitamin 1 tab PO DAILY 03/10/22 03/10/22 vitamin K2 PO 03/10/22 03/10/22 Previous Rx's Medication Instructions Recorded disabled parking permit #1 ea 07/13/18 Diovan 160 mg tablet (valsartan) 160 mg PO BID #180 tabs 09/07/21 albuterol sulfate 90 mcg/actuation See Rx Instructions .Route 03/25/22 aerosol inhaler (Ventolin HFA) .COMPLEX #18 grams nitrofurantoin macrocrystal 100 mg 100 mg PO BID 5 days #10 caps 03/28/22 capsule phenazopyridine 100 mg tablet 100 mg PO TID PRN pain 6 doses #10 03/28/22 tabs Allergies Allergy/AdvReac Type Severity Reaction Status Date / Time gum mastic Allergy Severe rash, Verified 01/22/22 09:47 [From MASTISOL LIQUID blistering ADHESIVE] methyl salicylate Allergy Severe rash, Verified 01/22/22 09:47 [From MASTISOL LIQUID blistering ADHESIVE] storax Allergy Severe rash, Verified 01/22/22 09:47 [From MASTISOL LIQUID blistering ADHESIVE] tetracycline Allergy Mild RASH Verified 01/22/22 09:47 methylprednisolone Allergy Unknown Verified 01/22/22 09:47 adhesive AdvReac Unknown LONG, Verified 01/22/22 09:47 SKINNY, STERILE STRIPS: SURGERY Review of Systems Review of Systems Narrative: Complete review of systems is negative other than as noted above. Patient History Medical History Asthma Cataract Chronic back pain CTS (carpal tunnel syndrome) JOHNSON (dyspnea on exertion) Essential hypertension (04/25/17) Greater trochanteric bursitis of left hip Hypercalcemia Hyperlipidemia Hyperparathyroidism Hypertension Left hamstring muscle strain Measles Obesity Osteoarthritis Strain of adductor nando muscle Strain of right psoas muscle Varicose veins of left lower extremity Surgical History Anesthesia H/O colonoscopy with polypectomy (~10/2020) History of knee replacement (2016) History of spinal fusion (06/2009) History of spinal fusion (2011) Status post parathyroidectomy (2015) Status post tonsillectomy and adenoidectomy (1947) Family History Father CAD (coronary artery disease) Hypertension Lewy body dementia Grandfather Heart disease Mother Leukemia Acute ITP Detached retina H/O splenectomy Grandfather Cancer of soft palate Substance Use Type: does not use Exam Narrative Exam Narrative: GENERAL: Alert, cooperative and in no distress. HEAD: Atraumatic. Normocephalic. EYES: Sclera are clear without icterus. Extraocular movements are full. ENT: No rhinorrhea. Oropharynx is moist. Mouth exam is benign. NECK: Supple. Full range of motion. CARDIOVASCULAR: Normal rate and rhythm without murmur gallop or rub. RESPIRATORY: Clear to auscultation. Breath sounds equal bilaterally. No wheezes, rales, or rhonchi. GASTROINTESTINAL: Abdomen soft, non-tender, nondistended. EXTREMITIES: No edema, full range of motion. No obvious trauma. BACK: Normal inspection, no CVA tenderness. NEURO: Nonfocal examination, normal speech, normal gait. SKIN: No rash or erythema of visible areas PSYCH: Normally oriented. Normal range of affect. Appropriate behavior Initial Vital Signs Initial Vital Signs: Vital Signs Temperature 97.3 F L 03/28/22 08:15 Pulse Rate 84 03/28/22 08:15 Respiratory Rate 16 03/28/22 08:15 Blood Pressure 200/96 H 03/28/22 08:15 Pulse Oximetry 97 03/28/22 08:15 Oxygen Delivery Method 03/28/22 08:15 Course Orders Ordered: ED Orders 03/28/22 08:17 Urine Culture Stat Urine Microscopic Stat Discontinued Medications Nitrofurantoin Macrocrystals (Nitrofurantoin Er 100 Mg Capsule) 100 mg PO NOW ONE Stop: 03/28/22 08:39 Last Admin: 03/28/22 08:41 Dose: 100 mg Documented By: ARGENTINA Phenazopyridine HCl (Phenazopyridine 100 Mg Tablet) 200 mg PO NOW ONE Stop: 03/28/22 08:39 Last Admin: 03/28/22 08:42 Dose: 200 mg Documented By: ARGENTINA Vital Signs Vital signs: Vital Signs - 8 hr 03/28/22 08:15 Temperature 97.3 F L Pulse Rate 84 Respiratory Rate 16 Blood Pressure 200/96 H Pulse Oximetry 97 Oxygen Delivery Method Room Air MDM - Female Genitourinary Lab Data Labs: Lab Results 03/28/22 Range/Units 08:17 Urine RBC 30-100/hpf H (0-5/HPF) Urine WBC 30-100/hpf H (0-5/HPF) Ur Squamous Epith Cells 0-1 /hpf (0-5/HPF) Ur Transition Epith Cell 1-5/hpf (0-5/HPF) Urine Bacteria None seen (None) Ur Culture Indicated? Specimen cultured Urine Dip Bedside Urine Glucose Negative Bedside Urine Bilirubin - Negative Bedside Urine Ketone - Negative Urine Specific [place] 1.015 Bedside Urine Occult Blood +++ Bedside Urine pH 6.5 Bedside Urine Protein +/- 15 Bedside Urine Urobilinogen - Negative Bedside Urine Nitrite - Negative Bedside Urine Leukocytes +++ 500 Esterase MDM Narrative Medical decision making narrative: This patient has convincing UTI symptoms with leukocytes positive in the urine. We will send for culture. Empiric therapy with nitrofurantoin. Discharge Plan Departure Patient Disposition: Home Clinical Impression: Urinary tract infection Instructions: DI for Urinary Tract Infection (UTI) Activity Restrictions/Additional Instructions: You have a bladder infection. I recommend antibiotic for 5 days twice daily. Use the phenazopyridine as needed. This will turn your urine orange. You can also use Tylenol or ibuprofen. Follow-up right away for fever, repeated vomiting or prostration. Otherwise follow-up as needed. Prescriptions: New nitrofurantoin macrocrystal 100 mg capsule 100 mg PO BID 5 Days Qty: 10 0RF Rx Instructions: must administer with a meal/food phenazopyridine 100 mg tablet 100 mg PO TID PRN (Reason: pain) Qty: 10 0RF No Action zinc acetate 25 mg (zinc) capsule 25 mg PO DAILY cholecalciferol (vitamin D3) 25 mcg (1,000 unit) capsule 25 mcg PO DAILY valsartan [Diovan] 160 mg tablet 160 mg PO BID Qty: 180 3RF Rx Instructions: Take one tablet by mouth twice a day. (DME) disabled parking permit Qty: 1 0RF Dose Instruction: As directed Rx Instructions: As directed due to ability to walk more than 200 feet limited by medical condition. albuterol sulfate [Ventolin HFA] 90 mcg/actuation HFA aerosol inhaler See Rx Instructions .ROUTE .COMPLEX Qty: 18 6RF Dose Instruction: INHALE 2 PUFFS BY MOUTH EVERY 4 HOURS NEEDED FOR SHORTNESS OF BREATH Rx Instructions: INHALE 2 PUFFS BY MOUTH EVERY 4-6 HOURS NEEDED FOR SHORTNESS OF BREATH quercetin PO DAILY metoprolol succinate 50 mg tablet extended release 24 hr 50 mg PO DAILY multivitamin Tablet 1 tab PO DAILY ergocalciferol (vitamin D2) 10 mcg (400 unit) tablet 10 mcg PO DAILY vitamin K2 PO coenzyme Q10 PO Vinia PO Referrals: Cecilia Brown DO [Primary Care Provider] -
== END 2022-03-28 08:47 | disposition home or self-care (01) ==
PROVIDERS: Emergency Provider Family Medicine Addiction Medicine; Family Provider Family Medicine; PCP Family Medicine
DX: N39.0 Urinary tract infection, site not specified (principal)
CPT/HCPCS: 81003; 81015; 87077; 87086; 87186; 99283

== ENCOUNTER → 2022-04-26 14:08 | Outpatient (CLI) | payer MEDICARE, OTHER, SELFPAY | PROVIDERS: Family Provider Family Medicine; PCP Family Medicine; Visit Provider Student in an Organized Health Care Education/Training Program | DX: R30.0 Dysuria (principal) | CPT/HCPCS: 87077; 87086; 87186 ==

== ENCOUNTER → 2022-05-02 08:06 | Outpatient (CLI) | payer MEDICARE, OTHER, SELFPAY ==
[2022-05-02 09:38] LABS: Hematocrit 42.8 % (36-46); Hemoglobin 14.9 g/dL (12.0-16.0); Mean Corpuscular HGB Conc 34.9 % (30-36); Mean Corpuscular Hemoglobin 30.8 PG (26-34); Mean Corpuscular Volume 88.3 fL (80-100); Platelet Count 217 X10^3/uL (150-400); Red Blood Cell Count 4.84 X10^6/uL (4.0-5.2); White Blood Cell Count 7.3 X10^3/uL (4.5-11.0)
[2022-05-02 09:53] LABS: Alanine Aminotransferase 31 IU/L (<35); Albumin 4.2 g/dL (3.5-5.0); Albumin Globulin Ratio 1.6 (1.0-2.8); Alkaline Phosphatase 80 U/L (38-126); Aspartate Aminotransferase 26 IU/L (14-36); BUN Creatinine Ratio 26.4 (6-22); Bilirubin Total 0.8 mg/dL (0.2-1.3); Blood Urea Nitrogen 19 mg/dL (7-17); Calcium 9.1 mg/dL (8.4-10.2); Carbon Dioxide 27 mmol/L (22-32); Chloride 102 mmol/L (98-107); Cholesterol 196 mg/dL (140-199); Estimated Glomerular Filt Rate > 60 mL/min (>60); Globulin 2.7 g/dL (1.7-4.1); Glucose 146 mg/dL (80-110); HDL Cholesterol 40 mg/dL (40-60); HEMOLYSIS < 15 (0-50); LDL Cholesterol Calculated 122 mg/dL (<100); Potassium 4.6 mmol/L (3.4-5.1); Sodium 139 mmol/L (137-145); Total Protein 6.9 g/dL (6.3-8.2); Triglycerides 170 mg/dL (35-150)
[2022-05-02 10:21] LABS: Hemoglobin A1C% w Est Avg Glu 6.2 % (4.0-6.0)
[2022-05-02 12:13] LABS: Appearance Urine UA CLEAR; Bilirubin Urine UA NEGATIVE (NEGATIVE); Color Urine UA YELLOW; Glucose Urine UA NEGATIVE (Negative); Ketones Urine UA NEGATIVE (NEGATIVE); Leukocyte Esterase Urine UA NEGATIVE (NEGATIVE); Nitrite Urine UA NEGATIVE (Negative); Occult Blood Urine UA NEGATIVE (Negative); Protein Urine UA NEGATIVE (Negative); Urobilinogen Urine UA 0.2 E.U./dL (0.2)
[2022-05-02 12:33] LABS: Bacteria Urine Few (2-10); Culture Indicated Urine Cult Not Indicated; RBC Urine None Seen (0-5/HPF); Squamous Epithelial Cell Urine 0-1 /HPF (0-5/HPF); WBC Urine 0-1/HPF (0-5/HPF); pH Urine UA 6.5 (4.5-8.0)
== END ==
PROVIDERS: Family Provider Family Medicine; PCP Family Medicine; Referring Provider Family Medicine; Visit Provider Family Medicine
DX: E78.5 Hyperlipidemia, unspecified (principal); R06.09 Other forms of dyspnea; R73.9 Hyperglycemia, unspecified; I10 Essential (primary) hypertension; N39.0 Urinary tract infection, site not specified
CPT/HCPCS: 36415; 80053; 80061; 81001; 83036; 85027

== ENCOUNTER → 2022-05-13 16:29 | Outpatient (CLI) | payer MEDICARE, OTHER, SELFPAY ==
--- NOTE | 2022-05-13 16:31 | DI.MG.S_ITS ---
BILATERAL DIGITAL SCREENING MAMMOGRAM 3D/2D WITH CAD: 05/13/2022 CLINICAL: Routine screening. Comparison is made to exams dated: 04/08/2021 mammogram, 04/04/2020 mammogram, 04/03/2019 mammogram, and 03/12/2018 mammogram - [facility]. There are scattered areas of fibroglandular density in both breasts (category b / 25%-50% glandular tissue). Current study was also evaluated with a Computer Aided Detection (CAD) system. No significant masses, calcifications, or other findings are seen in either breast. There has been no significant interval change. IMPRESSION: NEGATIVE There is no mammographic evidence of malignancy. A 1 year screening mammogram is recommended. Based on the Tyrer Cuzick model (a risk assessment model) the patient's lifetime risk is 3.7% and her 10 year risk is 0.0%. According to the ACR, ACS, and NCCN guidelines, an annual breast MRI exam along with mammogram is recommended if the patient's lifetime risk is 20% or greater. This exam was interpreted at Station ID: [id number]. NOTE: For mammograms, a report in lay terms will be sent to the patient. Approximately 15% of breast malignancies will not be visualized mammographically. In the management of a palpable breast mass, a negative mammogram must not discourage biopsy of a clinically suspicious lesion. Electronically Signed By: Luis Fernando houston/judah:05/13/2022 17:29:03 letter sent: Normal Exam ACR BI-RADS Category 1: Negative [id number]
== END ==
PROVIDERS: Family Provider Family Medicine; PCP Family Medicine; Referring Provider Family Medicine; Visit Provider Family Medicine
DX: Z12.31 Encounter for screening mammogram for malignant neoplasm of breast (principal)
CPT/HCPCS: 77063; 77067

== ENCOUNTER → 2022-05-18 10:39 | Outpatient (CLI) | payer MEDICARE, OTHER, SELFPAY | PROVIDERS: Family Provider Family Medicine; PCP Family Medicine; Visit Provider Family Medicine | DX: N39.0 Urinary tract infection, site not specified (principal) | CPT/HCPCS: 87077; 87086; 87186 ==

== ENCOUNTER 2022-05-19 13:45 | Outpatient (RCR) | payer MEDICARE, OTHER, SELFPAY ==
--- NOTE | 2021-09-22 17:13 | PT.OIE ---
Current Diagnoses Pain in left shoulder (09/22/21) Strain of unspecified muscle, fascia and tendon at shoulder and upper arm level, left arm, initial encounter (09/22/21) Past Medical History (Last Updated 08/21/21 @ 16:03 by Isabell Fung DO) Asthma Cataract Chronic back pain CTS (carpal tunnel syndrome) Essential hypertension (04/25/17) Greater trochanteric bursitis of left hip H/O colonoscopy with polypectomy (~10/2020) Hypercalcemia Hyperlipidemia Hyperparathyroidism Hypertension Left hamstring muscle strain Measles Obesity Osteoarthritis Strain of adductor nando muscle Strain of right psoas muscle Varicose veins of left lower extremity Past Surgical History (Last Updated 12/19/20 @ 10:09 by Isabell Fung DO) Anesthesia H/O colonoscopy with polypectomy (~10/2020) History of knee replacement (2016) History of spinal fusion (06/2009) History of spinal fusion (2011) Status post parathyroidectomy (2015) Status post tonsillectomy and adenoidectomy (1947) Visit Care Team Role Provider Type Isabell Fung DO Family Provider Physician Primary Care Provider Specialty: Family Practice Address: [address] [place] [address], [place] [address] Email: [email or web address] Michelle Mcgarry MD Attending Provider Physician Referring Provider Specialty: [facility] Address: [address] [place] [address] Phone: Fax: Email: [email or web address] [facility] Initial Evaluation PT-OP-A Visit Information Start: 09/21/21 17:43 Freq: Status: Active Protocol: Document 09/22/21 09:03 SAK (Rec: 09/22/21 09:46 SAK [id number]) Out-Patient Physical Therapy Visit Information Visit Information Visit Type Initial Evaluation Visit Start Time 09:05 Visit Stop Time 10:01 Total Visit Minutes 56 Visit Number 1 Evaluation Information Evaluation Date 09/22/21 Precautions Precautions history lumbar fusions L3-S1 PT-OP-B Current Condition Start: 09/21/21 17:43 Freq: Status: Active Protocol: Document 09/22/21 09:03 SAK (Rec: 09/22/21 09:46 SAK [id number]) Current Condition History of Current Condition Onset Date 1+ year, no known cause, denies fall Current Complaints left shoulder pain, patient left handed History of Current Condition Pain with use of left shoulder , limited ability to sleep, can't do her hair, reach overhead. Hasn't tried ice or heat or magna wave machine ( has own). No other treatment. Has clicking in her shoulder with reaching. Prior Treatments and Tests no imaging. Treatment Goals Patient/Caregiver Goals minimize pain, reach overhead, behind back Prior Functional Status Baseline Function- ADL's Independent Baseline Function- Mobility Independent Current Functional Impairments (Reported) Functional Limitations- ADL's can't reach overhead, out to side, or behind her back Functional Limitations- Recreation/ unable Hobbies Personal Factors Other Personal Factors That May Effect none, no pacemaker. Therapy/Recovery PT-OP-C Subjective Start: 09/21/21 17:43 Freq: Status: Active Protocol: Document 09/23/21 16:49 [facility] (Rec: 09/23/21 17:12 [facility] [id number]) Patient Questionnaires Quick Dash- Upper Extremity Quick Dash UE Score 45 OP-PT Pain Assessment Location left shoulder Intensity 9 Scale Used Numeric (0 - 10) PT-OP-E Functional Tests Start: 09/21/21 17:43 Freq: Status: Active Protocol: Document 09/23/21 16:49 [facility] (Rec: 09/23/21 17:12 [facility] [id number]) Functional Tests Apley's Scratch Test Action 1- Left anterior chest Action 1- Right posterior shoulder Action 2- Left lateral neck Action 2- Right T2 Action 3- Left L5 Action 3- Right T12 PT-OP-J Posture/Palpation/Skin Start: 09/21/21 17:43 Freq: Status: Active Protocol: Document 09/23/21 16:49 [facility] (Rec: 09/23/21 17:12 [facility] [id number]) Posture Evaluation Position Sitting Head/C-Spine Posture Forward Head T-Spine Posture Increased Kyphosis Shoulder Posture (L) Rounded,(R) Rounded,(L) Forward,(R) Forward Scapula Posture (L) Protracted,(R) Protracted Arm Posture (L) Internally Rotated,(R) Internally Rotated Palpation Assessment Location anterior GH Palpation Findings Tenderness PT-OP-K Range of Motion Start: 09/21/21 17:43 Freq: Status: Active Protocol: Document 09/23/21 16:49 [facility] (Rec: 09/23/21 17:12 [facility] [id number]) Cervical Spine Range of Motion Cervical Spine Active Comments mod decrease all motions Shoulder Goniometric Range of Motion Shoulder Left Shoulder ROM WFL No Flexion 60 Extension 5 Abduction 105 Horizontal Adduction 20 External Rotation at 45 degrees 60 Abduction Internal Rotation Behind Back (text) L5 Right Shoulder ROM WFL Yes PT-OP-L Special Tests Start: 09/21/21 17:43 Freq: Status: Active Protocol: Document 09/23/21 16:49 [facility] (Rec: 09/23/21 17:12 [facility] [id number]) Special Tests Shoulder Special Tests Grind Labrum Test Results positive left Empty Can Test Results negative Passive ER Rotator Cuff Test Results negative Elevation Impingement Test Results positive left PT-OP-M Strength Start: 09/21/21 17:43 Freq: Status: Active Protocol: Document 09/23/21 16:49 [facility] (Rec: 09/23/21 17:12 [facility] [id number]) Shoulder Strength Shoulder Manual Muscle Testing Left Flexion 3- Fair- Extension 3+ Fair+ Abduction (C5) 3- Fair- Adduction 3+ Fair+ External Rotation 3+ Fair+ Comments limited by pain Right Flexion 5 Normal Extension 5 Normal Abduction (C5) 5 Normal External Rotation 4+ Good+ Internal Rotation 4+ Good+ Elbow/Forearm Strength Elbow and Forearm Manual Muscle Testing Left Flexion (C6) 4+ Good+ Extension (C7) 4+ Good+ Comments guarded but good strength without pain Right Flexion (C6) 5 Normal Extension (C7) 5 Normal PT-OP-Q Treatments Start: 09/21/21 17:43 Freq: Status: Active Protocol: Document 09/23/21 16:49 [facility] (Rec: 09/23/21 17:12 [facility] [id number]) Self-Care/Home Management Treatment Education Patient Education Home Exercise Program,Pain Management PT-OP-R Modalities Start: 09/21/21 17:43 Freq: Status: Active Protocol: Document 09/23/21 16:49 [facility] (Rec: 09/23/21 17:12 [facility] [id number]) Hot Pack/Cold Pack Treatment Cold Pack Location left shoulder Patient Position Hooklying Treatment Duration (minutes) 10 Patient Tolerance Good Ultrasound Therapy Treatment Left Anterior Shoulder Patient Position Supine Coupling Medium Ultrasound Gel Mode Setting Continuous Duty Cycle 100% Intensity Setting (w/cm2) 1.2 PT-OP-T Assessment and Plan Start: 09/21/21 17:43 Freq: Status: Active Protocol: Document 09/23/21 16:49 [facility] (Rec: 09/23/21 17:12 [facility] [id number]) Physical Therapy Assessment Evaluation Complexity Number of Personal Factors/Comorbidities 1-2 Number of Body Systems Impaired 3 Clinical Presentation at Evaluation Evolving Goals Four Impairment no HEP Nursing Home Goal (LTG) Patient will be independent and compliant with HEP for purposes of left shoulder ROm and strengthening LTG Duration 12/22/21 Three Impairment postural impairment Impairment forward head, rounded shoulders Nursing Home Goal (LTG) Patient will demonstrate improvement in postural alignment to allow for more normal shoulder mechanics and function LTG Duration 12/22/21 Two Impairment pain left shoulder as high as 9/10 Research Librarian Goal (LTG) Decrease pain to no greater than 2/10 left shoulder with all usual activities LTG Duration 12/22/21 One Impairment Quickdash UE disability index score 45% Impairment Impairment in functional use of her left UE including reaching overhead, behind her back, out to side Research Librarian Goal (LTG) Improve Quickdash score to no greater than 15% as measure of improved functional use of her left shoulder with her reporting improved sleep and the ability to reach overhead, behind her back, and out to side for all her usual activities. LTG Duration 12/22/21 Assessment Summary Assessment Patient presents with function -limiting pain left shoulder with no known cause, denies acute injury. This pain is of chronic nature and keeps patient from being able to do her usual ADL's and activities with inability to reach overhead, across her body, out to side, or behind her back. Sleep is highly interrupted. Signs and symptoms are consistent with potential anterior labral tear with some rotator cuff involvement as well with positive drop arm test. Feel patient would benefit from PT to decrease her pain and improve her left shoulder function to allow her to return to her usual activities including ADL's, sleeping through the night, and her usual activities around the house. Physical Therapy Plan Frequency and Duration Frequency of Treatment 2x/Week Duration of Treatment 12 weeks Plan of Care Start Date 09/23/21 Plan of Care End Date 12/22/21 Therapeutic Interventions Therapeutic Interventions Aquatic Therapy,Home Exercise Program,Joint Mobilizations, Manual Therapy,Neuromuscular Re-education,Patient/Caregiver Education,Self-Care/Home Management,Sensory Integration ,Soft Tissue Mobilization, Taping,Therapeutic Activities, Therapeutic Exercises Modalities Cold Pack/Ice Massage,Electric Stimulation,Hot Packs, Infrared Therapy,Iontophoresis ,Ultrasound Next Visit Focus/Plan Next Note Type Treatment Note Next Visit Plan Assess response to ultrasound, initiate ther ex for postural correction, gentle ROM and strengthening left shoulder. Manual techniques and modalities as needed for pain
--- NOTE | 2021-09-22 17:13 | PT.OPPOC ---
Physical, Occupational & Speech Therapy At [facility] Current Diagnoses Pain in left shoulder (09/22/21) Strain of unspecified muscle, fascia and tendon at shoulder and upper arm level, left arm, initial encounter (09/22/21) Visit Care Team Role Provider Type Isabell Fung DO Family Provider Physician Primary Care Provider Specialty: [facility] Practice Address: [address] [place] [address], [address], [address] Email: [email or web address] Michelle Mcgarry MD Attending Provider Physician Referring Provider Specialty: [facility] Address: [address] [place] [address], [address] Phone: Fax: Email: [email or web address] Plan Of Care PT-OP-T Assessment and Plan Start: 09/21/21 17:43 Freq: Status: Active Protocol: Document 09/23/21 16:49 SAK (Rec: 09/23/21 17:12 SAK [id number]) Physical Therapy Assessment Evaluation Complexity Number of Personal Factors/Comorbidities 1-2 Number of Body Systems Impaired 3 Clinical Presentation at Evaluation Evolving Goals Four Impairment no HEP Food Beverage Manager Goal (LTG) Patient will be independent and compliant with HEP for purposes of left shoulder ROm and strengthening LTG Duration 12/22/21 Three Impairment postural impairment Impairment forward head, rounded shoulders Food Beverage Manager Goal (LTG) Patient will demonstrate improvement in postural alignment to allow for more normal shoulder mechanics and function LTG Duration 12/22/21 Two Impairment pain left shoulder as high as 9/10 Food Beverage Manager Goal (LTG) Decrease pain to no greater than 2/10 left shoulder with all usual activities LTG Duration 12/22/21 One Impairment Quickdash UE disability index score 45% Impairment Impairment in functional use of her left UE including reaching overhead, behind her back, out to side Food Beverage Manager Goal (LTG) Improve Quickdash score to no greater than 15% as measure of improved functional use of her left shoulder with her reporting improved sleep and the ability to reach overhead, behind her back, and out to side for all her usual activities. LTG Duration 12/22/21 Assessment Summary Assessment Patient presents with function -limiting pain left shoulder with no known cause, denies acute injury. This pain is of chronic nature and keeps patient from being able to do her usual ADL's and activities with inability to reach overhead, across her body, out to side, or behind her back. Sleep is highly interrupted. Signs and symptoms are consistent with potential anterior labral tear with some rotator cuff involvement as well with positive drop arm test. Feel patient would benefit from PT to decrease her pain and improve her left shoulder function to allow her to return to her usual activities including ADL's, sleeping through the night, and her usual activities around the house. Physical Therapy Plan Frequency and Duration Frequency of Treatment 2x/Week Duration of Treatment 12 weeks Plan of Care Start Date 09/23/21 Plan of Care End Date 12/22/21 Therapeutic Interventions Therapeutic Interventions Aquatic Therapy,Home Exercise Program,Joint Mobilizations, Manual Therapy,Neuromuscular Re-education,Patient/Caregiver Education,Self-Care/Home Management,Sensory Integration ,Soft Tissue Mobilization, Taping,Therapeutic Activities, Therapeutic Exercises Modalities Cold Pack/Ice Massage,Electric Stimulation,Hot Packs, Infrared Therapy,Iontophoresis ,Ultrasound Next Visit Focus/Plan Next Note Type Treatment Note Next Visit Plan Assess response to ultrasound, initiate ther ex for postural correction, gentle ROM and strengthening left shoulder. Manual techniques and modalities as needed for pain Plan of Care Dates Plan of Care Start Date 09/23/21 Plan of Care End Date 12/22/21 Electronically Signed by: Martina Feng PT 09/23/21 [id number] Please Sign and Return: I have reviewed this Plan of Care and certify that the skilled therapy services above are required to meet the patient?s needs. Physician Signature Date Printed Name and Credentials Clinical Instructor Signature Printed Name and Credentials
--- NOTE | 2021-09-22 17:14 | PT.OPPOC ---
Physical, Occupational & Speech Therapy At [facility] Current Diagnoses Pain in left shoulder (09/22/21) Strain of unspecified muscle, fascia and tendon at shoulder and upper arm level, left arm, initial encounter (09/22/21) Visit Care Team Role Provider Type Isabell Fung DO Family Provider Physician Primary Care Provider Specialty: [facility] Practice Address: [address] [place] [address], [address], [address] Email: [email or web address] Michelle Mcgarry MD Attending Provider Physician Referring Provider Specialty: [facility] Address: [address] [place] [address], [address] Phone: Fax: Email: [email or web address] Plan Of Care PT-OP-T Assessment and Plan Start: 09/21/21 17:43 Freq: Status: Active Protocol: Document 09/23/21 16:49 SAK (Rec: 09/23/21 17:12 SAK [id number]) Physical Therapy Assessment Evaluation Complexity Number of Personal Factors/Comorbidities 1-2 Number of Body Systems Impaired 3 Clinical Presentation at Evaluation Evolving Goals Four Impairment no HEP Acid Bleacher Goal (LTG) Patient will be independent and compliant with HEP for purposes of left shoulder ROm and strengthening LTG Duration 12/22/21 Three Impairment postural impairment Impairment forward head, rounded shoulders Acid Bleacher Goal (LTG) Patient will demonstrate improvement in postural alignment to allow for more normal shoulder mechanics and function LTG Duration 12/22/21 Two Impairment pain left shoulder as high as 9/10 Acid Bleacher Goal (LTG) Decrease pain to no greater than 2/10 left shoulder with all usual activities LTG Duration 12/22/21 One Impairment Quickdash UE disability index score 45% Impairment Impairment in functional use of her left UE including reaching overhead, behind her back, out to side Acid Bleacher Goal (LTG) Improve Quickdash score to no greater than 15% as measure of improved functional use of her left shoulder with her reporting improved sleep and the ability to reach overhead, behind her back, and out to side for all her usual activities. LTG Duration 12/22/21 Assessment Summary Assessment Patient presents with function -limiting pain left shoulder with no known cause, denies acute injury. This pain is of chronic nature and keeps patient from being able to do her usual ADL's and activities with inability to reach overhead, across her body, out to side, or behind her back. Sleep is highly interrupted. Signs and symptoms are consistent with potential anterior labral tear with some rotator cuff involvement as well with positive drop arm test. Feel patient would benefit from PT to decrease her pain and improve her left shoulder function to allow her to return to her usual activities including ADL's, sleeping through the night, and her usual activities around the house. Physical Therapy Plan Frequency and Duration Frequency of Treatment 2x/Week Duration of Treatment 12 weeks Plan of Care Start Date 09/23/21 Plan of Care End Date 12/22/21 Therapeutic Interventions Therapeutic Interventions Aquatic Therapy,Home Exercise Program,Joint Mobilizations, Manual Therapy,Neuromuscular Re-education,Patient/Caregiver Education,Self-Care/Home Management,Sensory Integration ,Soft Tissue Mobilization, Taping,Therapeutic Activities, Therapeutic Exercises Modalities Cold Pack/Ice Massage,Electric Stimulation,Hot Packs, Infrared Therapy,Iontophoresis ,Ultrasound Next Visit Focus/Plan Next Note Type Treatment Note Next Visit Plan Assess response to ultrasound, initiate ther ex for postural correction, gentle ROM and strengthening left shoulder. Manual techniques and modalities as needed for pain Plan of Care Dates Plan of Care Start Date 09/23/21 Plan of Care End Date 12/22/21 Electronically Signed by: Martina Feng PT 09/23/21 2333 Please Sign and Return: I have reviewed this Plan of Care and certify that the skilled therapy services above are required to meet the patient?s needs. Physician Signature Date Printed Name and Credentials Clinical Instructor Signature Printed Name and Credentials
--- NOTE | 2021-09-27 09:03 | PT-OP ANOTE ---
DNS for appointment
--- NOTE | 2021-09-27 16:00 | PT.OTN ---
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 Hasn't tried ice or heat or magna wave machine ( has own). No other treatment. Has clicking in her shoulder with reaching. Prior Treatments and Tests no imaging. Treatment Goals Patient/Caregiver Goals minimize pain, reach overhead, behind back Prior Functional Status Baseline Function- ADL's Independent Baseline Function- Mobility Independent Current Functional Impairments (Reported) Functional Limitations- ADL's can't reach overhead, out to side, or behind her back Functional Limitations- Recreation/ unable Hobbies Personal Factors Other Personal Factors That May Effect none, no pacemaker. Therapy/Recovery PT-OP-C Subjective Start: 09/21/21 17:43 Freq: Status: Active Protocol: Document 09/27/21 13:04 SP (Rec: 09/27/21 13:56 SP [id number]) OP-PT Subjective Patient Comments Patient Comments Pt stated the US felt good, wants to do today along with CP. Pt states the shoulder rolls feel the best but also performing instructed shld shrugs and scap retraction. PT-OP-E Functional Tests Start: 09/21/21 17:43 Freq: Status: Active Protocol: Document 09/23/21 16:49 [facility] (Rec: 09/23/21 17:12 [facility] [id number]) Functional Tests Apley's Scratch Test Action 1- Left anterior chest Action 1- Right posterior shoulder Action 2- Left lateral neck Action 2- Right T2 Action 3- Left L5 Action 3- Right T12 PT-OP-J Posture/Palpation/Skin Start: 09/21/21 17:43 Freq: Status: Active Protocol: Document 09/23/21 16:49 [facility] (Rec: 09/23/21 17:12 [facility] [id number]) Posture Evaluation Position Sitting Head/C-Spine Posture Forward Head T-Spine Posture Increased Kyphosis Shoulder Posture (L) Rounded,(R) Rounded,(L) Forward,(R) Forward Scapula Posture (L) Protracted,(R) Protracted Arm Posture (L) Internally Rotated,(R) Internally Rotated Palpation Assessment Location anterior GH Palpation Findings Tenderness PT-OP-K Range of Motion Start: 09/21/21 17:43 Freq: Status: Active Protocol: Document 09/23/21 16:49 [facility] (Rec: 09/23/21 17:12 [facility] [id number]) Cervical Spine Range of Motion Cervical Spine Active Comments mod decrease all motions Shoulder Goniometric Range of Motion Shoulder Left Shoulder ROM WFL No Flexion 60 Extension 5 Abduction 105 Horizontal Adduction 20 External Rotation at 45 degrees 60 Abduction Internal Rotation Behind Back (text) L5 Right Shoulder ROM WFL Yes PT-OP-L Special Tests Start: 09/21/21 17:43 Freq: Status: Active Protocol: Document 09/23/21 16:49 [facility] (Rec: 09/23/21 17:12 [facility] [id number]) Special Tests Shoulder Special Tests Grind Labrum Test Results positive left Empty Can Test Results negative Passive ER Rotator Cuff Test Results negative Elevation Impingement Test Results positive left PT-OP-M Strength Start: 09/21/21 17:43 Freq: Status: Active Protocol: Document 09/23/21 16:49 [facility] (Rec: 09/23/21 17:12 [facility] [id number]) Shoulder Strength Shoulder Manual Muscle Testing Left Flexion 3- Fair- Extension 3+ Fair+ Abduction (C5) 3- Fair- Adduction 3+ Fair+ External Rotation 3+ Fair+ Comments limited by pain Right Flexion 5 Normal Extension 5 Normal Abduction (C5) 5 Normal External Rotation 4+ Good+ Internal Rotation 4+ Good+ Elbow/Forearm Strength Elbow and Forearm Manual Muscle Testing Left Flexion (C6) 4+ Good+ Extension (C7) 4+ Good+ Comments guarded but good strength without pain Right Flexion (C6) 5 Normal Extension (C7) 5 Normal PT-OP-Q Treatments Start: 09/21/21 17:43 Freq: Status: Active Protocol: Document 09/27/21 13:04 SP (Rec: 09/27/21 13:56 SP [id number]) Therapeutic Exercises Supine Exercises shld ER Supine Exercise Name addd to HEP Side left Resistance AROM Reps/Minutes x5 Comments cued small painfree range- good response AAROM shld wand Supine Exercise Name FF (added to HEP if tolerated) Side bilateral Resistance AAROM Reps/Minutes 2x3 reps- descomfort passed approx 100 deg Comments cued small painfree range- measure next tx.- crunching stopped serratus punch Supine Exercise Name added to HEP Resistance AAROM Equipment Used wand Reps/Minutes x10 (1 punch) Comments good feedback response- painfree Sitting Exercises shoulder shrugs Sitting Exercise Name reviewed HEP Side bilateral Reps/Minutes x10 Comments painfree scap retraction Sitting Exercise Name reviewed HEP Side bilateral Resistance AROM then added TB #1 ( modified shld ER, more resisted scap retraction) Reps/Minutes x10, x10 Comments cued tall posture, arms at side elbows bent 90 deg- painfree range shld roll Sitting Exercise Name posterior shld rolls: reviewed HEP Resistance AROM Reps/Minutes x10 Comments good painfree Manual Therapy Treatment Soft Tissue Mobilization 2 Body Location L proximal bicep, distal pec major Mobilization Type Myofascial Release,Strumming, Sustained Pressure Intensity/Depth Moderate Body Position Hooklying Comments manual, good feedback decrease tension 1 Body Location L UT, SOR, SCM Mobilization Type Myofascial Release,Sustained Pressure Intensity/Depth Moderate Body Position Hooklying Comments manual, good feedback decrease tension Joint Mobilizations 1 Joint L GH mob Direction posterior, inferior glide Grade II Body Position Hooklying Comments good feedback response, painfreee PT-OP-R Modalities Start: 09/21/21 17:43 Freq: Status: Active Protocol: Document 09/27/21 13:04 SP (Rec: 09/27/21 13:56 SP [id number]) Hot Pack/Cold Pack Treatment Cold Pack Location left shoulder Patient Position Hooklying Treatment Duration (minutes) 10 Patient Tolerance Good Ultrasound Therapy Treatment Left Anterior Shoulder Treatment Duration (minutes) 8 Patient Position Supine Coupling Medium Ultrasound Gel Frequency Setting (mHz) 1 Mode Setting Continuous Duty Cycle 100% Intensity Setting (w/cm2) 1.2 Comments good feedback response. PT-OP-T Assessment and Plan Start: 09/21/21 17:43 Freq: Status: Active Protocol: Document 09/27/21 13:04 SP (Rec: 09/27/21 13:56 SP [id number]) Physical Therapy Assessment Goals Four Impairment no HEP Nursing Home Goal (LTG) Patient will be independent and compliant with HEP for purposes of left shoulder ROm and strengthening LTG Duration 12/22/21 Three Impairment postural impairment Impairment forward head, rounded shoulders Nursing Home Goal (LTG) Patient will demonstrate improvement in postural alignment to allow for more normal shoulder mechanics and function LTG Duration 12/22/21 Two Impairment pain left shoulder as high as 9/10 Nursing Home Goal (LTG) Decrease pain to no greater than 2/10 left shoulder with all usual activities LTG Duration 12/22/21 One Impairment Quickdash UE disability index score 45% Impairment Impairment in functional use of her left UE including reaching overhead, behind her back, out to side Nursing Home Goal (LTG) Improve Quickdash score to no greater than 15% as measure of improved functional use of her left shoulder with her reporting improved sleep and the ability to reach overhead, behind her back, and out to side for all her usual activities. LTG Duration 12/22/21 Assessment Summary Assessment Pt responded well to HEP, painfree. Initiated seated TB to scap retraction, tolerated well with cues for tall posture. Painfree: serratus punch and shld ER supine. Pt requested US and CP end of tx. Pt reported felt better than when arrived. G[employer]ACHINE ADJUSTER provided HOs for recall and proper form improved posture which stated helps anterior shld feel better and carryover home HEP. Physical Therapy Plan Frequency and Duration Frequency of Treatment 2x/Week Duration of Treatment 12 weeks Plan of Care Start Date 09/23/21 Plan of Care End Date 12/22/21 Therapeutic Interventions Therapeutic Interventions Aquatic Therapy,Home Exercise Program,Joint Mobilizations, Manual Therapy,Neuromuscular Re-education,Patient/Caregiver Education,Self-Care/Home Management,Sensory Integration ,Soft Tissue Mobilization, Taping,Therapeutic Activities, Therapeutic Exercises Modalities Cold Pack/Ice Massage,Electric Stimulation,Hot Packs, Infrared Therapy,Iontophoresis ,Ultrasound Next Visit Focus/Plan Next Note Type Treatment Note Next Visit Plan Recheck HEP postural correction, gentle ROM and strengthening left shoulder. Manual techniques and modalities as needed for pain
--- NOTE | 2021-09-29 09:26 | PT.OTN ---
Current Diagnoses Pain in left shoulder (09/29/21) Strain of unspecified muscle, fascia and tendon at shoulder and upper arm level, left arm, initial encounter (09/29/21) Physical Therapy Treatment Note PT-OP-A Visit Information Start: 09/21/21 17:43 Freq: Status: Active Protocol: Document 09/29/21 14:34 SAK (Rec: 09/29/21 15:20 [facility] [id number]) Out-Patient Physical Therapy Visit Information Visit Information Visit Type Treatment Note Visit Start Time 14:32 Visit Stop Time 15:28 Total Visit Minutes 56 Visit Number 3 Number of DIRECTOR OCCUPATIONAL Visits 0 Evaluation Information Evaluation Date 09/22/21 Precautions Precautions history lumbar fusions L3-S1 PT-OP-B Current Condition Start: 09/21/21 17:43 Freq: Status: Active Protocol: Document 09/22/21 09:03 SAK (Rec: 09/22/21 09:46 SAK [id number]) Current Condition History of Current Condition Onset Date 1+ year, no known cause, denies fall Current Complaints left shoulder pain, patient left handed History of Current Condition Pain with use of left shoulder , limited ability to sleep, can't do her hair, reach overhead. Hasn't tried ice or heat or magna wave machine ( has own). No other treatment. Has clicking in her shoulder with reaching. Prior Treatments and Tests no imaging. Treatment Goals Patient/Caregiver Goals minimize pain, reach overhead, behind back Prior Functional Status Baseline Function- ADL's Independent Baseline Function- Mobility Independent Current Functional Impairments (Reported) Functional Limitations- ADL's can't reach overhead, out to side, or behind her back Functional Limitations- Recreation/ unable Hobbies Personal Factors Other Personal Factors That May Effect none, no pacemaker. Therapy/Recovery PT-OP-C Subjective Start: 09/21/21 17:43 Freq: Status: Active Protocol: Document 09/29/21 14:34 SAK (Rec: 09/29/21 15:20 [facility] [id number]) OP-PT Subjective Patient Comments Patient Comments Requests heat today, reports inc pain after ice last time. Still likes ultrasound and shoulder rolls the best PT-OP-E Functional Tests Start: 09/21/21 17:43 Freq: Status: Active Protocol: Document 09/23/21 16:49 SAK (Rec: 09/23/21 17:12 [facility] [id number]) Functional Tests Apley's Scratch Test Action 1- Left anterior chest Action 1- Right posterior shoulder Action 2- Left lateral neck Action 2- Right T2 Action 3- Left L5 Action 3- Right T12 PT-OP-J Posture/Palpation/Skin Start: 09/21/21 17:43 Freq: Status: Active Protocol: Document 09/23/21 16:49 [facility] (Rec: 09/23/21 17:12 [facility] [id number]) Posture Evaluation Position Sitting Head/C-Spine Posture Forward Head T-Spine Posture Increased Kyphosis Shoulder Posture (L) Rounded,(R) Rounded,(L) Forward,(R) Forward Scapula Posture (L) Protracted,(R) Protracted Arm Posture (L) Internally Rotated,(R) Internally Rotated Palpation Assessment Location anterior GH Palpation Findings Tenderness PT-OP-K Range of Motion Start: 09/21/21 17:43 Freq: Status: Active Protocol: Document 09/23/21 16:49 [facility] (Rec: 09/23/21 17:12 [facility] [id number]) Cervical Spine Range of Motion Cervical Spine Active Comments mod decrease all motions Shoulder Goniometric Range of Motion Shoulder Left Shoulder ROM WFL No Flexion 60 Extension 5 Abduction 105 Horizontal Adduction 20 External Rotation at 45 degrees 60 Abduction Internal Rotation Behind Back (text) L5 Right Shoulder ROM WFL Yes PT-OP-L Special Tests Start: 09/21/21 17:43 Freq: Status: Active Protocol: Document 09/23/21 16:49 [facility] (Rec: 09/23/21 17:12 [facility] [id number]) Special Tests Shoulder Special Tests Grind Labrum Test Results positive left Empty Can Test Results negative Passive ER Rotator Cuff Test Results negative Elevation Impingement Test Results positive left PT-OP-M Strength Start: 09/21/21 17:43 Freq: Status: Active Protocol: Document 09/23/21 16:49 [facility] (Rec: 09/23/21 17:12 [facility] [id number]) Shoulder Strength Shoulder Manual Muscle Testing Left Flexion 3- Fair- Extension 3+ Fair+ Abduction (C5) 3- Fair- Adduction 3+ Fair+ External Rotation 3+ Fair+ Comments limited by pain Right Flexion 5 Normal Extension 5 Normal Abduction (C5) 5 Normal External Rotation 4+ Good+ Internal Rotation 4+ Good+ Elbow/Forearm Strength Elbow and Forearm Manual Muscle Testing Left Flexion (C6) 4+ Good+ Extension (C7) 4+ Good+ Comments guarded but good strength without pain Right Flexion (C6) 5 Normal Extension (C7) 5 Normal PT-OP-Q Treatments Start: 09/21/21 17:43 Freq: Status: Active Protocol: Document 09/29/21 14:34 [facility] (Rec: 09/29/21 15:20 [facility] [id number]) Therapeutic Exercises Supine Exercises shld ER Side left Resistance AROM Reps/Minutes x5 Comments cued small painfree range- good response AAROM shld wand Side bilateral Resistance AAROM Reps/Minutes 5x Comments cue for small painfree range-, to 98 deg serratus punch Resistance AAROM Equipment Used wand Reps/Minutes x10 (1 punch) Comments good feedback response- painfree Sitting Exercises shoulder shrugs Sitting Exercise Name reviewed HEP Side bilateral Reps/Minutes x10 Comments painfree scap retraction Sitting Exercise Name reviewed HEP Side bilateral Resistance AROM then added TB #1 ( modified shld ER, more resisted scap retraction) Reps/Minutes x10, x10 Comments cued tall posture, arms at side elbows bent 90 deg- painfree range shld roll Sitting Exercise Name posterior shld rolls: reviewed HEP Resistance AROM Reps/Minutes x10 Comments good painfree Standing Exercises wall posture Reps/Minutes 5 min row Equipment Used L1 TB Reps/Minutes 10x shoulder ER Equipment Used L1 TB Reps/Minutes 10x Manual Therapy Treatment Soft Tissue Mobilization 2 Body Location L proximal bicep, distal pec major Mobilization Type Myofascial Release,Strumming, Sustained Pressure Intensity/Depth Moderate Body Position Hooklying Comments manual, good feedback decrease tension 1 Body Location L UT, SOR, SCM Mobilization Type Myofascial Release,Sustained Pressure Intensity/Depth Moderate Body Position Hooklying Comments manual, good feedback decrease tension Joint Mobilizations 1 Joint L GH mob Direction posterior, inferior glide Grade II Body Position Hooklying Comments good feedback response, painfreee Self-Care/Home Management Treatment Education Patient Education Home Exercise Program,Pain Management PT-OP-R Modalities Start: 09/21/21 17:43 Freq: Status: Active Protocol: Document 09/29/21 14:34 [facility] (Rec: 09/29/21 15:20 [facility] [id number]) Hot Pack/Cold Pack Treatment Hot Pack Location left shoulder Patient Position Hooklying Ultrasound Therapy Treatment Left Anterior Shoulder Treatment Duration (minutes) 8 Patient Position Supine Coupling Medium Ultrasound Gel Frequency Setting (mHz) 1 Mode Setting Continuous Duty Cycle 100% Intensity Setting (w/cm2) 1.2 Comments good feedback response. PT-OP-T Assessment and Plan Start: 09/21/21 17:43 Freq: Status: Active Protocol: Document 09/29/21 14:34 [facility] (Rec: 09/29/21 16:33 [facility] [id number]) Physical Therapy Assessment Goals Four Impairment no HEP Document Controller Goal (LTG) Patient will be independent and compliant with HEP for purposes of left shoulder ROm and strengthening LTG Duration 12/22/21 Three Impairment postural impairment Impairment forward head, rounded shoulders Sn[facility] Goal (LTG) Patient will demonstrate improvement in postural alignment to allow for more normal shoulder mechanics and function LTG Duration 12/22/21 Two Impairment pain left shoulder as high as 9/10 Snf Goal (LTG) Decrease pain to no greater than 2/10 left shoulder with all usual activities LTG Duration 12/22/21 One Impairment Quickdash UE disability index score 45% Impairment Impairment in functional use of her left UE including reaching overhead, behind her back, out to side Document Controller Goal (LTG) Improve Quickdash score to no greater than 15% as measure of improved functional use of her left shoulder with her reporting improved sleep and the ability to reach overhead, behind her back, and out to side for all her usual activities. LTG Duration 12/22/21 Assessment Summary Assessment Jacinda responded well to cues for improved performance of her HEP and addition of wall posture, cues for shoulder alignment with walking, and addition of L1 TB with row exercise. Did not respond well to ice last session so heat done to shoulder at end of session. Physical Therapy Plan Frequency and Duration Frequency of Treatment 2x/Week Duration of Treatment 12 weeks Plan of Care Start Date 09/23/21 Plan of Care End Date 12/22/21 Therapeutic Interventions Therapeutic Interventions Aquatic Therapy,Home Exercise Program,Joint Mobilizations, Manual Therapy,Neuromuscular Re-education,Patient/Caregiver Education,Self-Care/Home Management,Sensory Integration ,Soft Tissue Mobilization, Taping,Therapeutic Activities, Therapeutic Exercises Modalities Cold Pack/Ice Massage,Electric Stimulation,Hot Packs, Infrared Therapy,Iontophoresis ,Ultrasound Next Visit Focus/Plan Next Note Type Treatment Note Next Visit Plan Continue gentle progression of ROM and strengthening left shoulder, joint mobiization for improved mechanics and dec pain, modalities to decrease muscle tension and pain.
--- NOTE | 2021-10-04 16:43 | PT.OTN ---
Current Diagnoses Pain in left shoulder (10/04/21) Strain of unspecified muscle, fascia and tendon at shoulder and upper arm level, left arm, initial encounter (10/04/21) Physical Therapy Treatment Note PT-OP-A Visit Information Start: 09/21/21 17:43 Freq: Status: Active Protocol: Document 10/04/21 08:16 SAK (Rec: 10/04/21 08:59 SAK [id number]) Out-Patient Physical Therapy Visit Information Visit Information Visit Type Treatment Note Visit Start Time 08:16 Visit Stop Time 09:15 Total Visit Minutes 59 Visit Number 4 Number of PLASTER BLOCK LAYER Visits 0 Evaluation Information Evaluation Date 09/22/21 Precautions Precautions history lumbar fusions L3-S1 PT-OP-B Current Condition Start: 09/21/21 17:43 Freq: Status: Active Protocol: Document 09/22/21 09:03 SAK (Rec: 09/22/21 09:46 SAK [id number]) Current Condition History of Current Condition Onset Date 1+ year, no known cause, denies fall Current Complaints left shoulder pain, patient left handed History of Current Condition Pain with use of left shoulder , limited ability to sleep, can't do her hair, reach overhead. Hasn't tried ice or heat or magna wave machine ( has own). No other treatment. Has clicking in her shoulder with reaching. Prior Treatments and Tests no imaging. Treatment Goals Patient/Caregiver Goals minimize pain, reach overhead, behind back Prior Functional Status Baseline Function- ADL's Independent Baseline Function- Mobility Independent Current Functional Impairments (Reported) Functional Limitations- ADL's can't reach overhead, out to side, or behind her back Functional Limitations- Recreation/ unable Hobbies Personal Factors Other Personal Factors That May Effect none, no pacemaker. Therapy/Recovery PT-OP-C Subjective Start: 09/21/21 17:43 Freq: Status: Active Protocol: Document 10/04/21 08:16 SAK (Rec: 10/04/21 16:43 SAK [id number]) OP-PT Subjective Patient Comments Patient Comments Reports having dizziness today mostly when moving her head, planning to contact ENT. Ok as long as she doesn't move her head. PT-OP-E Functional Tests Start: 09/21/21 17:43 Freq: Status: Active Protocol: Document 09/23/21 16:49 SAK (Rec: 09/23/21 17:12 [facility] [id number]) Functional Tests Apley's Scratch Test Action 1- Left anterior chest Action 1- Right posterior shoulder Action 2- Left lateral neck Action 2- Right T2 Action 3- Left L5 Action 3- Right T12 PT-OP-J Posture/Palpation/Skin Start: 09/21/21 17:43 Freq: Status: Active Protocol: Document 09/23/21 16:49 [facility] (Rec: 09/23/21 17:12 [facility] [id number]) Posture Evaluation Position Sitting Head/C-Spine Posture Forward Head T-Spine Posture Increased Kyphosis Shoulder Posture (L) Rounded,(R) Rounded,(L) Forward,(R) Forward Scapula Posture (L) Protracted,(R) Protracted Arm Posture (L) Internally Rotated,(R) Internally Rotated Palpation Assessment Location anterior GH Palpation Findings Tenderness PT-OP-K Range of Motion Start: 09/21/21 17:43 Freq: Status: Active Protocol: Document 09/23/21 16:49 [facility] (Rec: 09/23/21 17:12 [facility] [id number]) Cervical Spine Range of Motion Cervical Spine Active Comments mod decrease all motions Shoulder Goniometric Range of Motion Shoulder Left Shoulder ROM WFL No Flexion 60 Extension 5 Abduction 105 Horizontal Adduction 20 External Rotation at 45 degrees 60 Abduction Internal Rotation Behind Back (text) L5 Right Shoulder ROM WFL Yes PT-OP-L Special Tests Start: 09/21/21 17:43 Freq: Status: Active Protocol: Document 09/23/21 16:49 [facility] (Rec: 09/23/21 17:12 [facility] [id number]) Special Tests Shoulder Special Tests Grind Labrum Test Results positive left Empty Can Test Results negative Passive ER Rotator Cuff Test Results negative Elevation Impingement Test Results positive left PT-OP-M Strength Start: 09/21/21 17:43 Freq: Status: Active Protocol: Document 09/23/21 16:49 [facility] (Rec: 09/23/21 17:12 [facility] [id number]) Shoulder Strength Shoulder Manual Muscle Testing Left Flexion 3- Fair- Extension 3+ Fair+ Abduction (C5) 3- Fair- Adduction 3+ Fair+ External Rotation 3+ Fair+ Comments limited by pain Right Flexion 5 Normal Extension 5 Normal Abduction (C5) 5 Normal External Rotation 4+ Good+ Internal Rotation 4+ Good+ Elbow/Forearm Strength Elbow and Forearm Manual Muscle Testing Left Flexion (C6) 4+ Good+ Extension (C7) 4+ Good+ Comments guarded but good strength without pain Right Flexion (C6) 5 Normal Extension (C7) 5 Normal PT-OP-Q Treatments Start: 09/21/21 17:43 Freq: Status: Active Protocol: Document 10/04/21 08:16 [facility] (Rec: 10/04/21 08:59 [facility] [id number]) Therapeutic Exercises Sitting Exercises pulleys Sitting Exercise Name flex Reps/Minutes 10x trunk rotation Reps/Minutes 5x ea side Should ER Equipment Used trekking pole Reps/Minutes 10x shoulder ext Sitting Exercise Name paddle Equipment Used trekking pole Reps/Minutes 10x forward lean with wand Equipment Used trekking pole on floor Reps/Minutes 10x Comments for shoulder flex shld roll Sitting Exercise Name posterior shld rolls: reviewed HEP Resistance AROM Reps/Minutes x10 Comments good painfree Standing Exercises IR/ER Reps/Minutes 10x Comments elbows straight, arms at sides shoulder flex Equipment Used trekking pole Reps/Minutes 10x Comments left hand on top row Equipment Used L1 TB Reps/Minutes 10x shoulder ER Equipment Used L1 TB Reps/Minutes 10x Manual Therapy Treatment Soft Tissue Mobilization 3 Body Location biceps tendon Mobilization Type Cross-Friction Intensity/Depth mod Self-Care/Home Management Treatment Education Patient Education Home Exercise Program Other Education updated written HEP PT-OP-R Modalities Start: 09/21/21 17:43 Freq: Status: Active Protocol: Document 10/04/21 08:16 [facility] (Rec: 10/04/21 08:59 [facility] [id number]) Hot Pack/Cold Pack Treatment Hot Pack Location left shoulder Patient Position Hooklying Ultrasound Therapy Treatment Left Anterior Shoulder Treatment Duration (minutes) 8 Patient Position Supine Coupling Medium Ultrasound Gel Frequency Setting (mHz) 1 Mode Setting Continuous Duty Cycle 100% Intensity Setting (w/cm2) 1.2 Comments good feedback response. PT-OP-T Assessment and Plan Start: 09/21/21 17:43 Freq: Status: Active Protocol: Document 10/04/21 08:16 [facility] (Rec: 10/04/21 08:59 [facility] [id number]) Physical Therapy Assessment Goals Four Impairment no HEP Gearman Goal (LTG) Patient will be independent and compliant with HEP for purposes of left shoulder ROm and strengthening LTG Duration 12/22/21 Three Impairment postural impairment Impairment forward head, rounded shoulders Skilled Nursing Goal (LTG) Patient will demonstrate improvement in postural alignment to allow for more normal shoulder mechanics and function LTG Duration 12/22/21 Two Impairment pain left shoulder as high as 9/10 Gearman Goal (LTG) Decrease pain to no greater than 2/10 left shoulder with all usual activities LTG Duration 12/22/21 One Impairment Quickdash UE disability index score 45% Impairment Impairment in functional use of her left UE including reaching overhead, behind her back, out to side Gearman Goal (LTG) Improve Quickdash score to no greater than 15% as measure of improved functional use of her left shoulder with her reporting improved sleep and the ability to reach overhead, behind her back, and out to side for all her usual activities. LTG Duration 12/22/21 Assessment Summary Assessment Patient noting increased ability to use left UE to do her hair, pain some better. Compliant to HEP. Limited past couple days by dizziness when moves head, requests we take it easy in PT today. Physical Therapy Plan Frequency and Duration Frequency of Treatment 2x/Week Duration of Treatment 12 weeks Plan of Care Start Date 09/23/21 Plan of Care End Date 12/22/21 Therapeutic Interventions Therapeutic Interventions Aquatic Therapy,Home Exercise Program,Joint Mobilizations, Manual Therapy,Neuromuscular Re-education,Patient/Caregiver Education,Self-Care/Home Management,Sensory Integration ,Soft Tissue Mobilization, Taping,Therapeutic Activities, Therapeutic Exercises Modalities Cold Pack/Ice Massage,Electric Stimulation,Hot Packs, Infrared Therapy,Iontophoresis ,Ultrasound Next Visit Focus/Plan Next Note Type Treatment Note Next Visit Plan Continue gentle progression of ROM and strengthening left shoulder, joint mobiization for improved mechanics and dec pain, modalities to decrease muscle tension and pain.
--- NOTE | 2021-10-06 16:24 | PT.OTN ---
Current Diagnoses Pain in left shoulder (10/06/21) Strain of unspecified muscle, fascia and tendon at shoulder and upper arm level, left arm, initial encounter (10/06/21) Physical Therapy Treatment Note PT-OP-A Visit Information Start: 09/21/21 17:43 Freq: Status: Active Protocol: Document 10/06/21 14:31 SAK (Rec: 10/06/21 15:18 [facility] [id number]) Out-Patient Physical Therapy Visit Information Visit Information Visit Type Treatment Note Visit Start Time 14:30 Visit Stop Time 15:14 Total Visit Minutes 58 Visit Number 5 Evaluation Information Evaluation Date 09/22/21 Precautions Precautions history lumbar fusions L3-S1 PT-OP-B Current Condition Start: 09/21/21 17:43 Freq: Status: Active Protocol: Document 09/22/21 09:03 SAK (Rec: 09/22/21 09:46 SAK [id number]) Current Condition History of Current Condition Onset Date 1+ year, no known cause, denies fall Current Complaints left shoulder pain, patient left handed History of Current Condition Pain with use of left shoulder , limited ability to sleep, can't do her hair, reach overhead. Hasn't tried ice or heat or magna wave machine ( has own). No other treatment. Has clicking in her shoulder with reaching. Prior Treatments and Tests no imaging. Treatment Goals Patient/Caregiver Goals minimize pain, reach overhead, behind back Prior Functional Status Baseline Function- ADL's Independent Baseline Function- Mobility Independent Current Functional Impairments (Reported) Functional Limitations- ADL's can't reach overhead, out to side, or behind her back Functional Limitations- Recreation/ unable Hobbies Personal Factors Other Personal Factors That May Effect none, no pacemaker. Therapy/Recovery PT-OP-C Subjective Start: 09/21/21 17:43 Freq: Status: Active Protocol: Document 10/06/21 14:31 SAK (Rec: 10/06/21 15:18 [facility] [id number]) OP-PT Subjective Patient Comments Patient Comments Dizziness a little better, saw ENT, may still need PT if doesn't continue to get better . Hasn't done much shoulder exercise due to the dizziness. PT-OP-E Functional Tests Start: 09/21/21 17:43 Freq: Status: Active Protocol: Document 09/23/21 16:49 SAK (Rec: 09/23/21 17:12 [facility] [id number]) Functional Tests Apley's Scratch Test Action 1- Left anterior chest Action 1- Right posterior shoulder Action 2- Left lateral neck Action 2- Right T2 Action 3- Left L5 Action 3- Right T12 PT-OP-J Posture/Palpation/Skin Start: 09/21/21 17:43 Freq: Status: Active Protocol: Document 09/23/21 16:49 [facility] (Rec: 09/23/21 17:12 [facility] [id number]) Posture Evaluation Position Sitting Head/C-Spine Posture Forward Head T-Spine Posture Increased Kyphosis Shoulder Posture (L) Rounded,(R) Rounded,(L) Forward,(R) Forward Scapula Posture (L) Protracted,(R) Protracted Arm Posture (L) Internally Rotated,(R) Internally Rotated Palpation Assessment Location anterior GH Palpation Findings Tenderness PT-OP-K Range of Motion Start: 09/21/21 17:43 Freq: Status: Active Protocol: Document 09/23/21 16:49 [facility] (Rec: 09/23/21 17:12 [facility] [id number]) Cervical Spine Range of Motion Cervical Spine Active Comments mod decrease all motions Shoulder Goniometric Range of Motion Shoulder Left Shoulder ROM WFL No Flexion 60 Extension 5 Abduction 105 Horizontal Adduction 20 External Rotation at 45 degrees 60 Abduction Internal Rotation Behind Back (text) L5 Right Shoulder ROM WFL Yes PT-OP-L Special Tests Start: 09/21/21 17:43 Freq: Status: Active Protocol: Document 09/23/21 16:49 [facility] (Rec: 09/23/21 17:12 [facility] [id number]) Special Tests Shoulder Special Tests Grind Labrum Test Results positive left Empty Can Test Results negative Passive ER Rotator Cuff Test Results negative Elevation Impingement Test Results positive left PT-OP-M Strength Start: 09/21/21 17:43 Freq: Status: Active Protocol: Document 09/23/21 16:49 [facility] (Rec: 09/23/21 17:12 [facility] [id number]) Shoulder Strength Shoulder Manual Muscle Testing Left Flexion 3- Fair- Extension 3+ Fair+ Abduction (C5) 3- Fair- Adduction 3+ Fair+ External Rotation 3+ Fair+ Comments limited by pain Right Flexion 5 Normal Extension 5 Normal Abduction (C5) 5 Normal External Rotation 4+ Good+ Internal Rotation 4+ Good+ Elbow/Forearm Strength Elbow and Forearm Manual Muscle Testing Left Flexion (C6) 4+ Good+ Extension (C7) 4+ Good+ Comments guarded but good strength without pain Right Flexion (C6) 5 Normal Extension (C7) 5 Normal PT-OP-Q Treatments Start: 09/21/21 17:43 Freq: Status: Active Protocol: Document 10/06/21 14:31 [facility] (Rec: 10/06/21 15:18 [facility] [id number]) Therapeutic Exercises Sitting Exercises cat/cow Reps/Minutes 5x pulleys Sitting Exercise Name flex Reps/Minutes 10x Should ER Equipment Used trekking pole Reps/Minutes 10x shoulder ext Sitting Exercise Name paddle Equipment Used trekking pole Reps/Minutes 10x forward lean with wand Equipment Used trekking pole on floor Reps/Minutes 10x Comments for shoulder flex scap retraction Sitting Exercise Name reviewed HEP Side bilateral Resistance AROM then added TB #1 ( modified shld ER, more resisted scap retraction) Reps/Minutes x10, x10 Comments cued tall posture, arms at side elbows bent 90 deg- painfree range shld roll Sitting Exercise Name posterior shld rolls: reviewed HEP Resistance AROM Reps/Minutes x10 Comments good painfree Standing Exercises wall slide Equipment Used pillow case Reps/Minutes 10x shoulder flex Comments painful, not done row Equipment Used L1 TB Reps/Minutes 10x shoulder ER Equipment Used L1 TB Reps/Minutes 10x Manual Therapy Treatment Soft Tissue Mobilization 3 Body Location biceps tendon Mobilization Type Cross-Friction Intensity/Depth mod 1 Body Location L UT Mobilization Type Myofascial Release,Strumming Intensity/Depth Moderate Body Position Hooklying Self-Care/Home Management Treatment Education Patient Education Home Exercise Program,Pain Management,Posture PT-OP-R Modalities Start: 09/21/21 17:43 Freq: Status: Active Protocol: Document 10/06/21 16:20 [facility] (Rec: 10/06/21 16:21 [facility] [id number]) Infrared Treatment Treatment left ant shoulder Duration (Minutes) 6 Body Position Supine Continuous/Pulsed Continuous Program or Protocal chronic pain and stiffness, muscle/ligament/tendon PT-OP-T Assessment and Plan Start: 09/21/21 17:43 Freq: Status: Active Protocol: Document 10/06/21 14:31 [facility] (Rec: 10/06/21 15:18 [facility] [id number]) Physical Therapy Assessment Goals Four Impairment no HEP Nursing Home Goal (LTG) Patient will be independent and compliant with HEP for purposes of left shoulder ROm and strengthening LTG Duration 12/22/21 Three Impairment postural impairment Impairment forward head, rounded shoulders Nursing Home Goal (LTG) Patient will demonstrate improvement in postural alignment to allow for more normal shoulder mechanics and function LTG Duration 12/22/21 Two Impairment pain left shoulder as high as 9/10 [employer] Scientist Goal (LTG) Decrease pain to no greater than 2/10 left shoulder with all usual activities LTG Duration 12/22/21 One Impairment Quickdash UE disability index score 45% Impairment Impairment in functional use of her left UE including reaching overhead, behind her back, out to side Nursing Home Goal (LTG) Improve Quickdash score to no greater than 15% as measure of improved functional use of her left shoulder with her reporting improved sleep and the ability to reach overhead, behind her back, and out to side for all her usual activities. LTG Duration 12/22/21 Assessment Summary Assessment Decreased ability to perform HEP due to dizziness though some improvement. Trial cold laser today for pain management. Physical Therapy Plan Frequency and Duration Frequency of Treatment 2x/Week Duration of Treatment 12 weeks Plan of Care Start Date 09/23/21 Plan of Care End Date 12/22/21 Therapeutic Interventions Therapeutic Interventions Aquatic Therapy,Home Exercise Program,Joint Mobilizations, Manual Therapy,Neuromuscular Re-education,Patient/Caregiver Education,Self-Care/Home Management,Sensory Integration ,Soft Tissue Mobilization, Taping,Therapeutic Activities, Therapeutic Exercises Modalities Cold Pack/Ice Massage,Electric Stimulation,Hot Packs, Infrared Therapy,Iontophoresis ,Ultrasound Next Visit Focus/Plan Next Note Type Treatment Note Next Visit Plan assess response to cold laser, continue right shoulder rehab for ROM and strengthening.
--- NOTE | 2021-10-11 16:25 | PT.OTN ---
Current Diagnoses Pain in left shoulder (10/11/21) Strain of unspecified muscle, fascia and tendon at shoulder and upper arm level, left arm, initial encounter (10/11/21) Physical Therapy Treatment Note PT-OP-A Visit Information Start: 09/21/21 17:43 Freq: Status: Active Protocol: Document 10/11/21 14:29 [facility]AK (Rec: 10/11/21 15:15 [facility] [id number]) Out-Patient Physical Therapy Visit Information Visit Information Visit Type Treatment Note Visit Start Time 14:30 Visit Stop Time 15:14 Total Visit Minutes 58 Visit Number 6 Evaluation Information Evaluation Date 09/22/21 Precautions Precautions history lumbar fusions L3-S1 PT-OP-B Current Condition Start: 09/21/21 17:43 Freq: Status: Active Protocol: Document 09/22/21 09:03 SAK (Rec: 09/22/21 09:46 [facility]AK [id number]) Current Condition History of Current Condition Onset Date 1+ year, no known cause, denies fall Current Complaints left shoulder pain, patient left handed History of Current Condition Pain with use of left shoulder , limited ability to sleep, can't do her hair, reach overhead. Hasn't tried ice or heat or magna wave machine ( has own). No other treatment. Has clicking in her shoulder with reaching. Prior Treatments and Tests no imaging. Treatment Goals Patient/Caregiver Goals minimize pain, reach overhead, behind back Prior Functional Status Baseline Function- ADL's Independent Baseline Function- Mobility Independent Current Functional Impairments (Reported) Functional Limitations- ADL's can't reach overhead, out to side, or behind her back Functional Limitations- Recreation/ unable Hobbies Personal Factors Other Personal Factors That May Effect none, no pacemaker. Therapy/Recovery PT-OP-C Subjective Start: 09/21/21 17:43 Freq: Status: Active Protocol: Document 10/11/21 14:29 SAK (Rec: 10/11/21 15:15 [facility] [id number]) OP-PT Subjective Patient Comments Patient Comments Hurt her shoulder rolling over reaching for pillow. Hasn't been doing pulleys at home. Doing other exercises some. PT-OP-E Functional Tests Start: 09/21/21 17:43 Freq: Status: Active Protocol: Document 09/23/21 16:49 SAK (Rec: 09/23/21 17:12 SAK [id number]) Functional Tests Apley's Scratch Test Action 1- Left anterior chest Action 1- Right posterior shoulder Action 2- Left lateral neck Action 2- Right T2 Action 3- Left L5 Action 3- Right T12 PT-OP-J Posture/Palpation/Skin Start: 09/21/21 17:43 Freq: Status: Active Protocol: Document 09/23/21 16:49 [facility] (Rec: 09/23/21 17:12 [facility] [id number]) Posture Evaluation Position Sitting Head/C-Spine Posture Forward Head T-Spine Posture Increased Kyphosis Shoulder Posture (L) Rounded,(R) Rounded,(L) Forward,(R) Forward Scapula Posture (L) Protracted,(R) Protracted Arm Posture (L) Internally Rotated,(R) Internally Rotated Palpation Assessment Location anterior GH Palpation Findings Tenderness PT-OP-K Range of Motion Start: 09/21/21 17:43 Freq: Status: Active Protocol: Document 09/23/21 16:49 [facility] (Rec: 09/23/21 17:12 [facility] [id number]) Cervical Spine Range of Motion Cervical Spine Active Comments mod decrease all motions Shoulder Goniometric Range of Motion Shoulder Left Shoulder ROM WFL No Flexion 60 Extension 5 Abduction 105 Horizontal Adduction 20 External Rotation at 45 degrees 60 Abduction Internal Rotation Behind Back (text) L5 Right Shoulder ROM WFL Yes PT-OP-L Special Tests Start: 09/21/21 17:43 Freq: Status: Active Protocol: Document 09/23/21 16:49 [facility] (Rec: 09/23/21 17:12 [facility] [id number]) Special Tests Shoulder Special Tests Grind Labrum Test Results positive left Empty Can Test Results negative Passive ER Rotator Cuff Test Results negative Elevation Impingement Test Results positive left PT-OP-M Strength Start: 09/21/21 17:43 Freq: Status: Active Protocol: Document 09/23/21 16:49 [facility] (Rec: 09/23/21 17:12 [facility] [id number]) Shoulder Strength Shoulder Manual Muscle Testing Left Flexion 3- Fair- Extension 3+ Fair+ Abduction (C5) 3- Fair- Adduction 3+ Fair+ External Rotation 3+ Fair+ Comments limited by pain Right Flexion 5 Normal Extension 5 Normal Abduction (C5) 5 Normal External Rotation 4+ Good+ Internal Rotation 4+ Good+ Elbow/Forearm Strength Elbow and Forearm Manual Muscle Testing Left Flexion (C6) 4+ Good+ Extension (C7) 4+ Good+ Comments guarded but good strength without pain Right Flexion (C6) 5 Normal Extension (C7) 5 Normal PT-OP-Q Treatments Start: 09/21/21 17:43 Freq: Status: Active Protocol: Document 10/11/21 14:29 [facility] (Rec: 10/11/21 15:15 [facility] [id number]) Therapeutic Exercises Sitting Exercises pulleys Sitting Exercise Name flex, scaption Reps/Minutes 10x Should ER Equipment Used wand Reps/Minutes 10x shoulder ext Sitting Exercise Name paddle Equipment Used trekking pole Reps/Minutes 10x forward lean with wand Equipment Used wand on floor Reps/Minutes 10x Comments for shoulder flex scap retraction Sitting Exercise Name reviewed HEP Side bilateral Resistance AROM then , manual resistance Reps/Minutes x10, x10 Comments cued tall posture, arms at side elbows bent 90 deg- painfree range shld roll Sitting Exercise Name posterior shld rolls: reviewed HEP Resistance AROM Reps/Minutes x10 Comments good painfree Standing Exercises wall slide Reps/Minutes 10x Comments manual facilitation of upward rotation scapula shoulder ER Equipment Used L1 TB Reps/Minutes 10x Manual Therapy Treatment Soft Tissue Mobilization 3 Body Location biceps tendon Mobilization Type Cross-Friction Intensity/Depth mod 1 Body Location L UT Mobilization Type Myofascial Release,Strumming Intensity/Depth Moderate Body Position Hooklying Self-Care/Home Management Treatment Education Patient Education Home Exercise Program,Pain Management PT-OP-R Modalities Start: 09/21/21 17:43 Freq: Status: Active Protocol: Document 10/11/21 14:29 [facility] (Rec: 10/11/21 16:25 [facility] [id number]) Hot Pack/Cold Pack Treatment Hot Pack Location left shoulder Patient Position Hooklying PT-OP-T Assessment and Plan Start: 09/21/21 17:43 Freq: Status: Active Protocol: Document 10/11/21 14:29 [facility] (Rec: 10/11/21 15:15 [facility] [id number]) Physical Therapy Assessment Goals Four Impairment no HEP [facility] Living Goal (LTG) Patient will be independent and compliant with HEP for purposes of left shoulder ROm and strengthening LTG Duration 12/22/21 Three Impairment postural impairment Impairment forward head, rounded shoulders 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 (LTG) Patient will demonstrate improvement in postural alignment to allow for more normal shoulder mechanics and function LTG Duration 6/1/22 Two Impairment pain left shoulder as high as 9/10 [facility] Goal (LTG) Decrease pain to no greater than 2/10 left shoulder with all usual activities LTG Duration 12/22/21 One Impairment Quickdash UE disability index score 45% Impairment Impairment in functional use of her left UE including reaching overhead, behind her back, out to side [facility] Goal (LTG) Improve Quickdash score to no greater than 15% as measure of improved functional use of her left shoulder with her reporting improved sleep and the ability to reach overhead, behind her back, and out to side for all her usual activities. LTG Duration 12/22/21 Assessment Summary Assessment Patient compliance to HEP only fair, hasn't started using pulleys yet. Irritated shoulder rolling and reaching in bed. Overall noting improvement but more sore today. Wants to evaluate response to laser 1 more time. May consider kinesiotape next session. Physical Therapy Plan Frequency and Duration Frequency of Treatment 2x/Week Duration of Treatment 12 weeks Plan of Care Start Date 09/23/21 Plan of Care End Date 12/22/21 Therapeutic Interventions Therapeutic Interventions Aquatic Therapy,Home Exercise Program,Joint Mobilizations, Manual Therapy,Neuromuscular Re-education,Patient/Caregiver Education,Self-Care/Home Management,Sensory Integration ,Soft Tissue Mobilization, Taping,Therapeutic Activities, Therapeutic Exercises Modalities Cold Pack/Ice Massage,Electric Stimulation,Hot Packs, Infrared Therapy,Iontophoresis ,Ultrasound Next Visit Focus/Plan Next Note Type Treatment Note Next Visit Plan Continue left shoulder rehab, encourage HEP, progress ther ex as tolerated for ROM and gentle strengthening. Kinesiotape left shoulder for space correction/pain management. Modalities and manual therapy as needd. PNF.
--- NOTE | 2021-10-13 16:33 | PT.OTN ---
Current Diagnoses Pain in left shoulder (10/13/21) Strain of unspecified muscle, fascia and tendon at shoulder and upper arm level, left arm, initial encounter (10/13/21) Physical Therapy Treatment Note PT-OP-A Visit Information Start: 09/21/21 17:43 Freq: Status: Active Protocol: Document 10/13/21 14:31 SAK (Rec: 10/13/21 15:18 [facility] [id number]) Out-Patient Physical Therapy Visit Information Visit Information Visit Type Treatment Note Visit Start Time 14:30 Visit Stop Time 15:26 Total Visit Minutes 56 Visit Number 6 Evaluation Information Evaluation Date 09/22/21 Precautions Precautions history lumbar fusions L3-S1 PT-OP-B Current Condition Start: 09/21/21 17:43 Freq: Status: Active Protocol: Document 09/22/21 09:03 SAK (Rec: 09/22/21 09:46 [facility] [id number]) Current Condition History of Current Condition Onset Date 1+ year, no known cause, denies fall Current Complaints left shoulder pain, patient left handed History of Current Condition Pain with use of left shoulder , limited ability to sleep, can't do her hair, reach overhead. Hasn't tried ice or heat or magna wave machine ( has own). No other treatment. Has clicking in her shoulder with reaching. Prior Treatments and Tests no imaging. Treatment Goals Patient/Caregiver Goals minimize pain, reach overhead, behind back Prior Functional Status Baseline Function- ADL's Independent Baseline Function- Mobility Independent Current Functional Impairments (Reported) Functional Limitations- ADL's can't reach overhead, out to side, or behind her back Functional Limitations- Recreation/ unable Hobbies Personal Factors Other Personal Factors That May Effect none, no pacemaker. Therapy/Recovery PT-OP-C Subjective Start: 09/21/21 17:43 Freq: Status: Active Protocol: Document 10/13/21 14:31 SAK (Rec: 10/13/21 15:18 [facility] [id number]) OP-PT Subjective Patient Comments Patient Comments Didn't get HEP done due to sister and cat being ill, had appointments to take them to. Has been doing shoulder rolls . Shoulder still feeling a bit better because I didn't do anything stupid in the middle of the night. PT-OP-E Functional Tests Start: 09/21/21 17:43 Freq: Status: Active Protocol: Document 09/23/21 16:49 [facility] (Rec: 09/23/21 17:12 [facility] [id number]) Functional Tests Apley's Scratch Test Action 1- Left anterior chest Action 1- Right posterior shoulder Action 2- Left lateral neck Action 2- Right T2 Action 3- Left L5 Action 3- Right T12 PT-OP-J Posture/Palpation/Skin Start: 09/21/21 17:43 Freq: Status: Active Protocol: Document 09/23/21 16:49 [facility] (Rec: 09/23/21 17:12 [facility] [id number]) Posture Evaluation Position Sitting Head/C-Spine Posture Forward Head T-Spine Posture Increased Kyphosis Shoulder Posture (L) Rounded,(R) Rounded,(L) Forward,(R) Forward Scapula Posture (L) Protracted,(R) Protracted Arm Posture (L) Internally Rotated,(R) Internally Rotated Palpation Assessment Location anterior GH Palpation Findings Tenderness PT-OP-K Range of Motion Start: 09/21/21 17:43 Freq: Status: Active Protocol: Document 09/23/21 16:49 [facility] (Rec: 09/23/21 17:12 [facility] [id number]) Cervical Spine Range of Motion Cervical Spine Active Comments mod decrease all motions Shoulder Goniometric Range of Motion Shoulder Left Shoulder ROM WFL No Flexion 60 Extension 5 Abduction 105 Horizontal Adduction 20 External Rotation at 45 degrees 60 Abduction Internal Rotation Behind Back (text) L5 Right Shoulder ROM WFL Yes PT-OP-L Special Tests Start: 09/21/21 17:43 Freq: Status: Active Protocol: Document 09/23/21 16:49 [facility] (Rec: 09/23/21 17:12 [facility] [id number]) Special Tests Shoulder Special Tests Grind Labrum Test Results positive left Empty Can Test Results negative Passive ER Rotator Cuff Test Results negative Elevation Impingement Test Results positive left PT-OP-M Strength Start: 09/21/21 17:43 Freq: Status: Active Protocol: Document 09/23/21 16:49 [facility] (Rec: 09/23/21 17:12 [facility] [id number]) Shoulder Strength Shoulder Manual Muscle Testing Left Flexion 3- Fair- Extension 3+ Fair+ Abduction (C5) 3- Fair- Adduction 3+ Fair+ External Rotation 3+ Fair+ Comments limited by pain Right Flexion 5 Normal Extension 5 Normal Abduction (C5) 5 Normal External Rotation 4+ Good+ Internal Rotation 4+ Good+ Elbow/Forearm Strength Elbow and Forearm Manual Muscle Testing Left Flexion (C6) 4+ Good+ Extension (C7) 4+ Good+ Comments guarded but good strength without pain Right Flexion (C6) 5 Normal Extension (C7) 5 Normal PT-OP-Q Treatments Start: 09/21/21 17:43 Freq: Status: Active Protocol: Document 10/13/21 14:31 [facility] (Rec: 10/13/21 15:18 [facility] [id number]) Therapeutic Exercises Sitting Exercises pulleys Sitting Exercise Name flex, scaption Reps/Minutes 10x trunk rotation Reps/Minutes 5x ea side Should ER Equipment Used wand Reps/Minutes 10x shoulder ext Sitting Exercise Name paddle Equipment Used trekking pole Reps/Minutes 10x forward lean with wand Equipment Used wand on floor Reps/Minutes 10x Comments for shoulder flex shoulder shrugs Sitting Exercise Name reviewed HEP Side bilateral Reps/Minutes x10 Comments painfree scap retraction Sitting Exercise Name reviewed HEP Side bilateral Resistance AROM then , manual resistance Reps/Minutes x10, x10 Comments cued tall posture, arms at side elbows bent 90 deg- painfree range shld roll Sitting Exercise Name posterior shld rolls: reviewed HEP Resistance AROM Reps/Minutes x10 Comments good painfree Standing Exercises row Equipment Used L1 TB Reps/Minutes 10x shoulder ER Equipment Used L1 TB Reps/Minutes 10x Manual Therapy Treatment Soft Tissue Mobilization 3 Body Location biceps tendon Mobilization Type Cross-Friction Intensity/Depth mod 1 Body Location L UT Mobilization Type Myofascial Release,Strumming Intensity/Depth Moderate Body Position Hooklying Self-Care/Home Management Treatment Education Patient Education Home Exercise Program,Pain Management PT-OP-R Modalities Start: 09/21/21 17:43 Freq: Status: Active Protocol: Document 10/13/21 14:31 [facility] (Rec: 10/13/21 15:18 [facility] [id number]) Electric Stimulation Electric Stimulation left shoulder Duration (Minutes) 15 Intensity 17 Target/Sweep Sweep Patient Position Hooklying Combined With Heat/Cold Hot Pack Ultrasound Therapy Treatment Left Anterior Shoulder Treatment Duration (minutes) 8 Patient Position Supine Coupling Medium Ultrasound Gel Frequency Setting (mHz) 1 Mode Setting Continuous Duty Cycle 100% Intensity Setting (w/cm2) 1.2 Comments good feedback response. PT-OP-T Assessment and Plan Start: 09/21/21 17:43 Freq: Status: Active Protocol: Document 10/13/21 14:31 [facility] (Rec: 10/13/21 15:18 [facility] [id number]) Physical Therapy Assessment Goals Four Impairment no HEP Quality Assurance Auditor Goal (LTG) Patient will be independent and compliant with HEP for purposes of left shoulder ROm and strengthening LTG Duration 12/22/21 Three Impairment postural impairment Impairment forward head, rounded shoulders Quality Assurance Auditor Goal (LTG) Patient will demonstrate improvement in postural alignment to allow for more normal shoulder mechanics and function LTG Duration 12/22/21 Two Impairment pain left shoulder as high as 9/10 [facility] Goal (LTG) Decrease pain to no greater than 2/10 left shoulder with all usual activities LTG Duration 12/22/21 One Impairment Quickdash UE disability index score 45% Impairment Impairment in functional use of her left UE including reaching overhead, behind her back, out to side [facility] Goal (LTG) Improve Quickdash score to no greater than 15% as measure of improved functional use of her left shoulder with her reporting improved sleep and the ability to reach overhead, behind her back, and out to side for all her usual activities. LTG Duration 12/22/21 Assessment Summary Assessment Most difficulty with ER with min ROM and pain. , improving tolerance for ROM ex. Requested ultrasound instead of laser. Physical Therapy Plan Frequency and Duration Frequency of Treatment 2x/Week Duration of Treatment 12 weeks Plan of Care Start Date 09/23/21 Plan of Care End Date 12/22/21 Therapeutic Interventions Therapeutic Interventions Aquatic Therapy,Home Exercise Program,Joint Mobilizations, Manual Therapy,Neuromuscular Re-education,Patient/Caregiver Education,Self-Care/Home Management,Sensory Integration ,Soft Tissue Mobilization, Taping,Therapeutic Activities, Therapeutic Exercises Modalities Cold Pack/Ice Massage,Electric Stimulation,Hot Packs, Infrared Therapy,Iontophoresis ,Ultrasound Next Visit Focus/Plan Next Note Type Treatment Note Next Visit Plan Continue left shoulder rehab, encourage HEP, progress ther ex as tolerated for ROM and gentle strengthening. Kinesiotape left shoulder for space correction/pain management. Modalities and manual therapy as needd. PNF.
--- NOTE | 2021-10-20 09:56 | PT.OTN ---
Current Diagnoses Pain in left shoulder (10/20/21) Strain of unspecified muscle, fascia and tendon at shoulder and upper arm level, left arm, initial encounter (10/20/21) Physical Therapy Treatment Note PT-OP-A Visit Information Start: 09/21/21 17:43 Freq: Status: Active Protocol: Document 10/20/21 09:10 SAK (Rec: 10/20/21 09:56 [facility] [id number]) Out-Patient Physical Therapy Visit Information Visit Information Visit Type Treatment Note Visit Start Time 09:05 Total Visit Minutes 56 Visit Number 8 Evaluation Information Evaluation Date 09/22/21 Precautions Precautions history lumbar fusions L3-S1 PT-OP-B Current Condition Start: 09/21/21 17:43 Freq: Status: Active Protocol: Document 09/22/21 09:03 SAK (Rec: 09/22/21 09:46 SAK [id number]) Current Condition History of Current Condition Onset Date 1+ year, no known cause, denies fall Current Complaints left shoulder pain, patient left handed History of Current Condition Pain with use of left shoulder , limited ability to sleep, can't do her hair, reach overhead. Hasn't tried ice or heat or magna wave machine ( has own). No other treatment. Has clicking in her shoulder with reaching. Prior Treatments and Tests no imaging. Treatment Goals Patient/Caregiver Goals minimize pain, reach overhead, behind back Prior Functional Status Baseline Function- ADL's Independent Baseline Function- Mobility Independent Current Functional Impairments (Reported) Functional Limitations- ADL's can't reach overhead, out to side, or behind her back Functional Limitations- Recreation/ unable Hobbies Personal Factors Other Personal Factors That May Effect none, no pacemaker. Therapy/Recovery PT-OP-C Subjective Start: 09/21/21 17:43 Freq: Status: Active Protocol: Document 10/20/21 09:10 SAK (Rec: 10/20/21 09:56 [facility] [id number]) OP-PT Subjective Patient Comments Patient Comments Reports better after combination ultrasound and IFES with heat, benefits gradually diminished after time, but able to do haiar with less pain. PT-OP-E Functional Tests Start: 09/21/21 17:43 Freq: Status: Active Protocol: Document 09/23/21 16:49 SAK (Rec: 09/23/21 17:12 SAK [id number]) Functional Tests Apley's Scratch Test Action 1- Left anterior chest Action 1- Right posterior shoulder Action 2- Left lateral neck Action 2- Right T2 Action 3- Left L5 Action 3- Right T12 PT-OP-J Posture/Palpation/Skin Start: 09/21/21 17:43 Freq: Status: Active Protocol: Document 09/23/21 16:49 [facility] (Rec: 09/23/21 17:12 [facility] [id number]) Posture Evaluation Position Sitting Head/C-Spine Posture Forward Head T-Spine Posture Increased Kyphosis Shoulder Posture (L) Rounded,(R) Rounded,(L) Forward,(R) Forward Scapula Posture (L) Protracted,(R) Protracted Arm Posture (L) Internally Rotated,(R) Internally Rotated Palpation Assessment Location anterior GH Palpation Findings Tenderness PT-OP-K Range of Motion Start: 09/21/21 17:43 Freq: Status: Active Protocol: Document 09/23/21 16:49 [facility] (Rec: 09/23/21 17:12 [facility] [id number]) Cervical Spine Range of Motion Cervical Spine Active Comments mod decrease all motions Shoulder Goniometric Range of Motion Shoulder Left Shoulder ROM WFL No Flexion 60 Extension 5 Abduction 105 Horizontal Adduction 20 External Rotation at 45 degrees 60 Abduction Internal Rotation Behind Back (text) L5 Right Shoulder ROM WFL Yes PT-OP-L Special Tests Start: 09/21/21 17:43 Freq: Status: Active Protocol: Document 09/23/21 16:49 [facility] (Rec: 09/23/21 17:12 [facility] [id number]) Special Tests Shoulder Special Tests Grind Labrum Test Results positive left Empty Can Test Results negative Passive ER Rotator Cuff Test Results negative Elevation Impingement Test Results positive left PT-OP-M Strength Start: 09/21/21 17:43 Freq: Status: Active Protocol: Document 09/23/21 16:49 [facility] (Rec: 09/23/21 17:12 [facility] [id number]) Shoulder Strength Shoulder Manual Muscle Testing Left Flexion 3- Fair- Extension 3+ Fair+ Abduction (C5) 3- Fair- Adduction 3+ Fair+ External Rotation 3+ Fair+ Comments limited by pain Right Flexion 5 Normal Extension 5 Normal Abduction (C5) 5 Normal External Rotation 4+ Good+ Internal Rotation 4+ Good+ Elbow/Forearm Strength Elbow and Forearm Manual Muscle Testing Left Flexion (C6) 4+ Good+ Extension (C7) 4+ Good+ Comments guarded but good strength without pain Right Flexion (C6) 5 Normal Extension (C7) 5 Normal PT-OP-Q Treatments Start: 09/21/21 17:43 Freq: Status: Active Protocol: Document 10/20/21 09:10 [facility] (Rec: 10/20/21 09:56 [facility] [id number]) Therapeutic Exercises Sitting Exercises pulleys Sitting Exercise Name flex, scaption Reps/Minutes 10x trunk rotation Reps/Minutes 5x ea side Should ER Equipment Used wand Reps/Minutes 10x shoulder ext Sitting Exercise Name paddle Equipment Used wand Reps/Minutes 10x forward lean with wand Equipment Used wand on floor Reps/Minutes 10x Comments for shoulder flex scap retraction Sitting Exercise Name reviewed HEP Side bilateral Resistance AROM then , manual resistance Reps/Minutes x10, x10 Comments cued tall posture, arms at side elbows bent 90 deg- painfree range shld roll Sitting Exercise Name posterior shld rolls: reviewed HEP Resistance AROM Reps/Minutes x10 Comments good painfree, into end-range posterior Standing Exercises row Equipment Used L1 TB Reps/Minutes 10x shoulder ER Equipment Used L1 TB Reps/Minutes 10x Manual Therapy Treatment Soft Tissue Mobilization 3 Body Location biceps tendon Mobilization Type Cross-Friction Intensity/Depth mod Self-Care/Home Management Treatment Education Other Education use pulleys, do theraband ex as hasn't done yet. PT-OP-R Modalities Start: 09/21/21 17:43 Freq: Status: Active Protocol: Document 10/20/21 09:10 [facility] (Rec: 10/20/21 09:56 [facility] [id number]) Electric Stimulation Electric Stimulation left shoulder Duration (Minutes) 15 Intensity 17 Target/Sweep Sweep Patient Position Hooklying Combined With Heat/Cold Hot Pack Ultrasound Therapy Treatment Left Anterior Shoulder Treatment Duration (minutes) 8 Patient Position Supine Coupling Medium Ultrasound Gel Frequency Setting (mHz) 1 Mode Setting Continuous Duty Cycle 100% Intensity Setting (w/cm2) 1.2 Comments good feedback response. PT-OP-T Assessment and Plan Start: 09/21/21 17:43 Freq: Status: Active Protocol: Document 10/20/21 09:10 [facility] (Rec: 10/20/21 09:56 [facility] [id number]) Physical Therapy Assessment Goals Four Impairment no HEP [employer] Goal (LTG) Patient will be independent and compliant with HEP for purposes of left shoulder ROm and strengthening LTG Duration 12/22/21 Three Impairment postural impairment Impairment forward head, rounded shoulders [facility] Goal (LTG) Patient will demonstrate improvement in postural alignment to allow for more normal shoulder mechanics and function LTG Duration 12/22/21 Two Impairment pain left shoulder as high as 9/10 [facility] Goal (LTG) Decrease pain to no greater than 2/10 left shoulder with all usual activities LTG Duration 12/22/21 One Impairment Quickdash UE disability index score 45% Impairment Impairment in functional use of her left UE including reaching overhead, behind her back, out to side [employer] Goal (LTG) Improve Quickdash score to no greater than 15% as measure of improved functional use of her left shoulder with her reporting improved sleep and the ability to reach overhead, behind her back, and out to side for all her usual activities. LTG Duration 12/22/21 Assessment Summary Assessment Patient noting best pain relief with ultrasound and IFES with heat combination. Reviewed importance of use of pulleys and theraband for ther ex at home. Notable improved ROM left shoulder. Physical Therapy Plan Frequency and Duration Frequency of Treatment 2x/Week Duration of Treatment 12 weeks Plan of Care Start Date 09/23/21 Plan of Care End Date 12/22/21 Therapeutic Interventions Therapeutic Interventions Aquatic Therapy,Home Exercise Program,Joint Mobilizations, Manual Therapy,Neuromuscular Re-education,Patient/Caregiver Education,Self-Care/Home Management,Sensory Integration ,Soft Tissue Mobilization, Taping,Therapeutic Activities, Therapeutic Exercises Modalities Cold Pack/Ice Massage,Electric Stimulation,Hot Packs, Infrared Therapy,Iontophoresis ,Ultrasound Next Visit Focus/Plan Next Note Type Treatment Note Next Visit Plan Continue with ultrasound and IFES with heat, urge increased HEP compliance. Continue gentle progression of ther ex.
--- NOTE | 2021-10-20 14:26 | PT.OTN ---
Current Diagnoses Pain in left shoulder (10/20/21) Strain of unspecified muscle, fascia and tendon at shoulder and upper arm level, left arm, initial encounter (10/20/21) Physical Therapy Treatment Note PT-OP-A Visit Information Start: 09/21/21 17:43 Freq: Status: Active Protocol: Document 10/20/21 09:10 SAK (Rec: 10/20/21 09:56 [facility] [id number]) Out-Patient Physical Therapy Visit Information Visit Information Visit Type Treatment Note Visit Start Time 09:05 Visit Stop Time 10:01 Total Visit Minutes 56 Visit Number 8 Evaluation Information Evaluation Date 09/22/21 Precautions Precautions history lumbar fusions L3-S1 PT-OP-B Current Condition Start: 09/21/21 17:43 Freq: Status: Active Protocol: Document 09/22/21 09:03 SAK (Rec: 09/22/21 09:46 SAK [id number]) Current Condition History of Current Condition Onset Date 1+ year, no known cause, denies fall Current Complaints left shoulder pain, patient left handed History of Current Condition Pain with use of left shoulder , limited ability to sleep, can't do her hair, reach overhead. Hasn't tried ice or heat or magna wave machine ( has own). No other treatment. Has clicking in her shoulder with reaching. Prior Treatments and Tests no imaging. Treatment Goals Patient/Caregiver Goals minimize pain, reach overhead, behind back Prior Functional Status Baseline Function- ADL's Independent Baseline Function- Mobility Independent Current Functional Impairments (Reported) Functional Limitations- ADL's can't reach overhead, out to side, or behind her back Functional Limitations- Recreation/ unable Hobbies Personal Factors Other Personal Factors That May Effect none, no pacemaker. Therapy/Recovery PT-OP-C Subjective Start: 09/21/21 17:43 Freq: Status: Active Protocol: Document 10/20/21 09:10 SAK (Rec: 10/20/21 09:56 [facility] [id number]) OP-PT Subjective Patient Comments Patient Comments Reports better after combination ultrasound and IFES with heat, benefits gradually diminished after time, but able to do haiar with less pain. PT-OP-E Functional Tests Start: 09/21/21 17:43 Freq: Status: Active Protocol: Document 09/23/21 16:49 SAK (Rec: 09/23/21 17:12 SAK [id number]) Functional Tests Apley's Scratch Test Action 1- Left anterior chest Action 1- Right posterior shoulder Action 2- Left lateral neck Action 2- Right T2 Action 3- Left L5 Action 3- Right T12 PT-OP-J Posture/Palpation/Skin Start: 09/21/21 17:43 Freq: Status: Active Protocol: Document 09/23/21 16:49 [facility] (Rec: 09/23/21 17:12 [facility] [id number]) Posture Evaluation Position Sitting Head/C-Spine Posture Forward Head T-Spine Posture Increased Kyphosis Shoulder Posture (L) Rounded,(R) Rounded,(L) Forward,(R) Forward Scapula Posture (L) Protracted,(R) Protracted Arm Posture (L) Internally Rotated,(R) Internally Rotated Palpation Assessment Location anterior GH Palpation Findings Tenderness PT-OP-K Range of Motion Start: 09/21/21 17:43 Freq: Status: Active Protocol: Document 09/23/21 16:49 [facility] (Rec: 09/23/21 17:12 [facility] [id number]) Cervical Spine Range of Motion Cervical Spine Active Comments mod decrease all motions Shoulder Goniometric Range of Motion Shoulder Left Shoulder ROM WFL No Flexion 60 Extension 5 Abduction 105 Horizontal Adduction 20 External Rotation at 45 degrees 60 Abduction Internal Rotation Behind Back (text) L5 Right Shoulder ROM WFL Yes PT-OP-L Special Tests Start: 09/21/21 17:43 Freq: Status: Active Protocol: Document 09/23/21 16:49 [facility] (Rec: 09/23/21 17:12 [facility] [id number]) Special Tests Shoulder Special Tests Grind Labrum Test Results positive left Empty Can Test Results negative Passive ER Rotator Cuff Test Results negative Elevation Impingement Test Results positive left PT-OP-M Strength Start: 09/21/21 17:43 Freq: Status: Active Protocol: Document 09/23/21 16:49 [facility] (Rec: 09/23/21 17:12 [facility] [id number]) Shoulder Strength Shoulder Manual Muscle Testing Left Flexion 3- Fair- Extension 3+ Fair+ Abduction (C5) 3- Fair- Adduction 3+ Fair+ External Rotation 3+ Fair+ Comments limited by pain Right Flexion 5 Normal Extension 5 Normal Abduction (C5) 5 Normal External Rotation 4+ Good+ Internal Rotation 4+ Good+ Elbow/Forearm Strength Elbow and Forearm Manual Muscle Testing Left Flexion (C6) 4+ Good+ Extension (C7) 4+ Good+ Comments guarded but good strength without pain Right Flexion (C6) 5 Normal Extension (C7) 5 Normal PT-OP-Q Treatments Start: 09/21/21 17:43 Freq: Status: Active Protocol: Document 10/20/21 09:10 [facility] (Rec: 10/20/21 09:56 [facility] [id number]) Therapeutic Exercises Sitting Exercises pulleys Sitting Exercise Name flex, scaption Reps/Minutes 10x trunk rotation Reps/Minutes 5x ea side Should ER Equipment Used wand Reps/Minutes 10x shoulder ext Sitting Exercise Name paddle Equipment Used wand Reps/Minutes 10x forward lean with wand Equipment Used wand on floor Reps/Minutes 10x Comments for shoulder flex scap retraction Sitting Exercise Name reviewed HEP Side bilateral Resistance AROM then , manual resistance Reps/Minutes x10, x10 Comments cued tall posture, arms at side elbows bent 90 deg- painfree range shld roll Sitting Exercise Name posterior shld rolls: reviewed HEP Resistance AROM Reps/Minutes x10 Comments good painfree, into end-range posterior Standing Exercises row Equipment Used L1 TB Reps/Minutes 10x Comments manual cues for scap retr, UT inhib shoulder ER Equipment Used L1 TB Reps/Minutes 10x Comments manual cues for scap retr, [place] inhib Manual Therapy Treatment Soft Tissue Mobilization 3 Body Location biceps tendon Mobilization Type Cross-Friction Intensity/Depth mod Self-Care/Home Management Treatment Education Other Education use pulleys, do theraband ex as hasn't done yet. PT-OP-R Modalities Start: 09/21/21 17:43 Freq: Status: Active Protocol: Document 10/20/21 09:10 [facility] (Rec: 10/20/21 09:56 [facility] [id number]) Electric Stimulation Electric Stimulation left shoulder Duration (Minutes) 15 Intensity 17 Target/Sweep Sweep Patient Position Hooklying Combined With Heat/Cold Hot Pack Ultrasound Therapy Treatment Left Anterior Shoulder Treatment Duration (minutes) 8 Patient Position Supine Coupling Medium Ultrasound Gel Frequency Setting (mHz) 1 Mode Setting Continuous Duty Cycle 100% Intensity Setting (w/cm2) 1.2 Comments good feedback response. PT-OP-T Assessment and Plan Start: 09/21/21 17:43 Freq: Status: Active Protocol: Document 10/20/21 09:10 [facility] (Rec: 10/20/21 09:56 SAK [id number]) Physical Therapy Assessment Goals Four Impairment no HEP [employer] Goal (LTG) Patient will be independent and compliant with HEP for purposes of left shoulder ROm and strengthening LTG Duration 12/22/21 Three Impairment postural impairment Impairment forward head, rounded shoulders Long-Term Goal (LTG) Patient will demonstrate improvement in postural alignment to allow for more normal shoulder mechanics and function LTG Duration 12/22/21 Two Impairment pain left shoulder as high as 9/10 [employer] Goal (LTG) Decrease pain to no greater than 2/10 left shoulder with all usual activities LTG Duration 12/22/21 One Impairment Quickdash UE disability index score 45% Impairment Impairment in functional use of her left UE including reaching overhead, behind her back, out to side [employer] Goal (LTG) Improve Quickdash score to no greater than 15% as measure of improved functional use of her left shoulder with her reporting improved sleep and the ability to reach overhead, behind her back, and out to side for all her usual activities. LTG Duration 12/22/21 Assessment Summary Assessment Patient noting best pain relief with ultrasound and IFES with heat combination. Reviewed importance of use of pulleys and theraband for ther ex at home; hasn't done yet. Notable improved ROM and function left shoulder. Verbal and manual cues for correct scapular muscle activation, inhib of [place], use of mirror at home. Patient encouraged to look at purchasing TENS unit for home use. Improved performance of ER ROM without compensation using wand. Physical Therapy Plan Frequency and Duration Frequency of Treatment 2x/Week Duration of Treatment 12 weeks Plan of Care Start Date 09/23/21 Plan of Care End Date 12/22/21 Therapeutic Interventions Therapeutic Interventions Aquatic Therapy,Home Exercise Program,Joint Mobilizations, Manual Therapy,Neuromuscular Re-education,Patient/Caregiver Education,Self-Care/Home Management,Sensory Integration ,Soft Tissue Mobilization, Taping,Therapeutic Activities, Therapeutic Exercises Modalities Cold Pack/Ice Massage,Electric Stimulation,Hot Packs, Infrared Therapy,Iontophoresis ,Ultrasound Next Visit Focus/Plan Next Note Type Treatment Note Next Visit Plan Continue with ultrasound and IFES with heat, urge increased HEP compliance. Continue gentle progression of ther ex.
--- NOTE | 2021-11-16 15:15 | PT.OTN ---
Current Diagnoses Pain in left shoulder (11/16/21) Strain of unspecified muscle, fascia and tendon at shoulder and upper arm level, left arm, initial encounter (11/16/21) Physical Therapy Treatment Note PT-OP-A Visit Information Start: 09/21/21 17:43 Freq: Status: Active Protocol: Document 11/16/21 14:35 SAK (Rec: 11/16/21 15:15 SAK [id number]) Out-Patient Physical Therapy Visit Information Visit Information Visit Type Treatment Note Visit Start Time 14:30 Visit Stop Time 15:25 Total Visit Minutes 55 Visit Number 9 Evaluation Information Evaluation Date 09/22/21 Precautions Precautions history lumbar fusions L3-S1 PT-OP-B Current Condition Start: 09/21/21 17:43 Freq: Status: Active Protocol: Document 09/22/21 09:03 SAK (Rec: 09/22/21 09:46 SAK [id number]) Current Condition History of Current Condition Onset Date 1+ year, no known cause, denies fall Current Complaints left shoulder pain, patient left handed History of Current Condition Pain with use of left shoulder , limited ability to sleep, can't do her hair, reach overhead. Hasn't tried ice or heat or magna wave machine ( has own). No other treatment. Has clicking in her shoulder with reaching. Prior Treatments and Tests no imaging. Treatment Goals Patient/Caregiver Goals minimize pain, reach overhead, behind back Prior Functional Status Baseline Function- ADL's Independent Baseline Function- Mobility Independent Current Functional Impairments (Reported) Functional Limitations- ADL's can't reach overhead, out to side, or behind her back Functional Limitations- Recreation/ unable Hobbies Personal Factors Other Personal Factors That May Effect none, no pacemaker. Therapy/Recovery PT-OP-C Subjective Start: 09/21/21 17:43 Freq: Status: Active Protocol: Document 11/16/21 14:35 SAK (Rec: 11/16/21 15:15 SAK [id number]) OP-PT Subjective Patient Comments Patient Comments Travelled to [place], has been partially compliant to HEP. Shoulder doing fairly well. Some days has been able to do her hair using left UE. PT-OP-E Functional Tests Start: 09/21/21 17:43 Freq: Status: Active Protocol: Document 09/23/21 16:49 SAK (Rec: 09/23/21 17:12 [facility] [id number]) Functional Tests Apley's Scratch Test Action 1- Left anterior chest Action 1- Right posterior shoulder Action 2- Left lateral neck Action 2- Right T2 Action 3- Left L5 Action 3- Right T12 PT-OP-J Posture/Palpation/Skin Start: 09/21/21 17:43 Freq: Status: Active Protocol: Document 09/23/21 16:49 [facility] (Rec: 09/23/21 17:12 [facility] [id number]) Posture Evaluation Position Sitting Head/C-Spine Posture Forward Head T-Spine Posture Increased Kyphosis Shoulder Posture (L) Rounded,(R) Rounded,(L) Forward,(R) Forward Scapula Posture (L) Protracted,(R) Protracted Arm Posture (L) Internally Rotated,(R) Internally Rotated Palpation Assessment Location anterior GH Palpation Findings Tenderness PT-OP-K Range of Motion Start: 09/21/21 17:43 Freq: Status: Active Protocol: Document 09/23/21 16:49 [facility] (Rec: 09/23/21 17:12 [facility] [id number]) Cervical Spine Range of Motion Cervical Spine Active Comments mod decrease all motions Shoulder Goniometric Range of Motion Shoulder Left Shoulder ROM WFL No Flexion 60 Extension 5 Abduction 105 Horizontal Adduction 20 External Rotation at 45 degrees 60 Abduction Internal Rotation Behind Back (text) L5 Right Shoulder ROM WFL Yes PT-OP-L Special Tests Start: 09/21/21 17:43 Freq: Status: Active Protocol: Document 09/23/21 16:49 [facility] (Rec: 09/23/21 17:12 [facility] [id number]) Special Tests Shoulder Special Tests Grind Labrum Test Results positive left Empty Can Test Results negative Passive ER Rotator Cuff Test Results negative Elevation Impingement Test Results positive left PT-OP-M Strength Start: 09/21/21 17:43 Freq: Status: Active Protocol: Document 09/23/21 16:49 [facility] (Rec: 09/23/21 17:12 [facility] [id number]) Shoulder Strength Shoulder Manual Muscle Testing Left Flexion 3- Fair- Extension 3+ Fair+ Abduction (C5) 3- Fair- Adduction 3+ Fair+ External Rotation 3+ Fair+ Comments limited by pain Right Flexion 5 Normal Extension 5 Normal Abduction (C5) 5 Normal External Rotation 4+ Good+ Internal Rotation 4+ Good+ Elbow/Forearm Strength Elbow and Forearm Manual Muscle Testing Left Flexion (C6) 4+ Good+ Extension (C7) 4+ Good+ Comments guarded but good strength without pain Right Flexion (C6) 5 Normal Extension (C7) 5 Normal PT-OP-Q Treatments Start: 09/21/21 17:43 Freq: Status: Active Protocol: Document 11/16/21 14:35 [facility] (Rec: 11/16/21 15:15 [facility] [id number]) Therapeutic Exercises Sitting Exercises pulleys Sitting Exercise Name flex, scaption Reps/Minutes 10x Should ER Equipment Used wand Reps/Minutes 10x shoulder ext Sitting Exercise Name paddle Equipment Used wand Reps/Minutes 10x Manual Therapy Treatment Soft Tissue Mobilization 3 Body Location biceps tendon Mobilization Type Cross-Friction Intensity/Depth mod 1 Body Location L UT Mobilization Type Myofascial Release,Strumming Intensity/Depth Moderate Body Position Hooklying PT-OP-R Modalities Start: 09/21/21 17:43 Freq: Status: Active Protocol: Document 11/16/21 14:35 [facility] (Rec: 11/16/21 15:15 [facility] [id number]) Electric Stimulation Electric Stimulation left shoulder Duration (Minutes) 15 Intensity 17 Target/Sweep Sweep Patient Position Hooklying Combined With Heat/Cold Hot Pack Ultrasound Therapy Treatment Left Anterior Shoulder Treatment Duration (minutes) 8 Patient Position Supine Coupling Medium Ultrasound Gel Frequency Setting (mHz) 1 Mode Setting Continuous Duty Cycle 100% Intensity Setting (w/cm2) 1.2 Comments good feedback response. PT-OP-T Assessment and Plan Start: 09/21/21 17:43 Freq: Status: Active Protocol: Document 11/16/21 14:35 [facility] (Rec: 11/16/21 15:15 [facility] [id number]) Physical Therapy Assessment Goals Four Impairment no HEP Half-Way Goal (LTG) Patient will be independent and compliant with HEP for purposes of left shoulder ROm and strengthening LTG Duration 12/22/21 Three Impairment postural impairment Impairment forward head, rounded shoulders Parking Inspector Goal (LTG) Patient will demonstrate improvement in postural alignment to allow for more normal shoulder mechanics and function LTG Duration 12/22/21 Two Impairment pain left shoulder as high as 9/10 Half-Way Goal (LTG) Decrease pain to no greater than 2/10 left shoulder with all usual activities LTG Duration 12/22/21 One Impairment Quickdash UE disability index score 45% Impairment Impairment in functional use of her left UE including reaching overhead, behind her back, out to side Half-Way Goal (LTG) Improve Quickdash score to no greater than 15% as measure of improved functional use of her left shoulder with her reporting improved sleep and the ability to reach overhead, behind her back, and out to side for all her usual activities. LTG Duration 12/22/21 Progress Towards Goals Progress Towards Goals Progressing Toward Goals Assessment Summary Assessment Decreased pain, intermittant ability to use left UE to do her hair now; improving functional left UE use. Fair compliance to HEP. Physical Therapy Plan Frequency and Duration Frequency of Treatment 2x/Week Duration of Treatment 12 weeks Plan of Care Start Date 09/23/21 Plan of Care End Date 12/22/21 Therapeutic Interventions Therapeutic Interventions Aquatic Therapy,Home Exercise Program,Joint Mobilizations, Manual Therapy,Neuromuscular Re-education,Patient/Caregiver Education,Self-Care/Home Management,Sensory Integration ,Soft Tissue Mobilization, Taping,Therapeutic Activities, Therapeutic Exercises Modalities Cold Pack/Ice Massage,Electric Stimulation,Hot Packs, Infrared Therapy,Iontophoresis ,Ultrasound Next Visit Focus/Plan Next Note Type Treatment Note Next Visit Plan Continue with ultrasound and IFES with heat, urge increased HEP compliance. Continue gentle progression of ther ex.
--- NOTE | 2021-11-22 16:20 | PT.OPPN ---
Current Diagnoses Pain in left shoulder (11/23/21) Strain of unspecified muscle, fascia and tendon at shoulder and upper arm level, left arm, initial encounter (11/23/21) Physical Therapy Progress Note PT-OP-A Visit Information Start: 09/21/21 17:43 Freq: Status: Active Protocol: Document 11/23/21 09:52 SAK (Rec: 11/23/21 10:32 [facility] [id number]) Out-Patient Physical Therapy Visit Information Visit Information Visit Type Treatment Note Visit Start Time 09:45 Visit Stop Time 10:40 Total Visit Minutes 55 Visit Number 10 Evaluation Information Evaluation Date 09/22/21 Precautions Precautions history lumbar fusions L3-S1 PT-OP-B Current Condition Start: 09/21/21 17:43 Freq: Status: Active Protocol: Document 09/22/21 09:03 SAK (Rec: 09/22/21 09:46 [facility] [id number]) Current Condition History of Current Condition Onset Date 1+ year, no known cause, denies fall Current Complaints left shoulder pain, patient left handed History of Current Condition Pain with use of left shoulder , limited ability to sleep, can't do her hair, reach overhead. Hasn't tried ice or heat or magna wave machine ( has own). No other treatment. Has clicking in her shoulder with reaching. Prior Treatments and Tests no imaging. Treatment Goals Patient/Caregiver Goals minimize pain, reach overhead, behind back Prior Functional Status Baseline Function- ADL's Independent Baseline Function- Mobility Independent Current Functional Impairments (Reported) Functional Limitations- ADL's can't reach overhead, out to side, or behind her back Functional Limitations- Recreation/ unable Hobbies Personal Factors Other Personal Factors That May Effect none, no pacemaker. Therapy/Recovery PT-OP-C Subjective Start: 09/21/21 17:43 Freq: Status: Active Protocol: Document 11/23/21 09:52 SAK (Rec: 11/23/21 10:32 [facility] [id number]) OP-PT Subjective Patient Comments Patient Comments No new c/o, fair compliance to HEP. Overall improved, still has to be careful. PT-OP-E Functional Tests Start: 09/21/21 17:43 Freq: Status: Active Protocol: Document 09/23/21 16:49 SAK (Rec: 09/23/21 17:12 [facility] [id number]) Functional Tests Apley's Scratch Test Action 1: The subject is instructed to touch the opposite shoulder with his/her hand. This motion checks Glenohumeral adduction, internal rotation , horizontal adduction and scapular protraction Action 2: The subject is instructed to place his/her arm overhead and reach behind the neck to touch his/her upper back. This motion checks Glenohumeral abduction, external rotation and scapular upward rotation and elevation. Action 3: The subject puts his/her hand on the lower back and reaches upward as far as possible. This motion checks glenohumeral adduction, internal rotation and scapular retraction with downward rotation Action 1- Left anterior chest Action 1- Right posterior shoulder Action 2- Left lateral neck Action 2- Right T2 Action 3- Left L5 Action 3- Right T12 PT-OP-J Posture/Palpation/Skin Start: 09/21/21 17:43 Freq: Status: Active Protocol: Document 09/23/21 16:49 [facility] (Rec: 09/23/21 17:12 [facility] [id number]) Posture Evaluation Position Sitting Head/C-Spine Posture Forward Head T-Spine Posture Increased Kyphosis Shoulder Posture (L) Rounded,(R) Rounded,(L) Forward,(R) Forward Scapula Posture (L) Protracted,(R) Protracted Arm Posture (L) Internally Rotated,(R) Internally Rotated Palpation Assessment Location anterior GH Palpation Findings Tenderness PT-OP-K Range of Motion Start: 09/21/21 17:43 Freq: Status: Active Protocol: Document 09/23/21 16:49 [facility] (Rec: 09/23/21 17:12 [facility] [id number]) Cervical Spine Range of Motion Cervical Spine Active Comments mod decrease all motions Shoulder Goniometric Range of Motion Shoulder Measured in Degrees Left Shoulder ROM WFL No Flexion 60 Extension 5 Abduction 105 Horizontal Adduction 20 External Rotation at 45 degrees 60 Abduction Internal Rotation Behind Back (text) L5 Right Shoulder ROM WFL Yes PT-OP-L Special Tests Start: 09/21/21 17:43 Freq: Status: Active Protocol: Document 09/23/21 16:49 [facility] (Rec: 09/23/21 17:12 [facility] [id number]) Special Tests Shoulder Special Tests Grind Labrum Test Results positive left Empty Can Test Results negative Passive ER Rotator Cuff Test Results negative Elevation Impingement Test Results positive left PT-OP-M Strength Start: 09/21/21 17:43 Freq: Status: Active Protocol: Document 09/23/21 16:49 [facility] (Rec: 09/23/21 17:12 [facility] [id number]) Shoulder Strength Shoulder Manual Muscle Testing Left Flexion 3- Fair- Extension 3+ Fair+ Abduction (C5) 3- Fair- Adduction 3+ Fair+ External Rotation 3+ Fair+ Comments limited by pain Right Flexion 5 Normal Extension 5 Normal Abduction (C5) 5 Normal External Rotation 4+ Good+ Internal Rotation 4+ Good+ Elbow/Forearm Strength Elbow and Forearm Manual Muscle Testing Left Flexion (C6) 4+ Good+ Extension (C7) 4+ Good+ Comments guarded but good strength without pain Right Flexion (C6) 5 Normal Extension (C7) 5 Normal PT-OP-T Assessment and Plan Start: 09/21/21 17:43 Freq: Status: Active Protocol: Document 11/23/21 09:52 [facility] (Rec: 11/23/21 10:32 [facility] [id number]) Physical Therapy Assessment Goals Four Impairment no HEP Trainmaster Goal (LTG) Patient will be independent and compliant with HEP for purposes of left shoulder ROm and strengthening LTG Duration 12/22/21 Three Impairment postural impairment Impairment forward head, rounded shoulders [employer] Goal (LTG) Patient will demonstrate improvement in postural alignment to allow for more normal shoulder mechanics and function LTG Duration 12/22/21 Two Impairment pain left shoulder as high as 9/10 Trainmaster Goal (LTG) Decrease pain to no greater than 2/10 left shoulder with all usual activities LTG Duration 12/22/21 One Impairment Quickdash UE disability index score 45% Impairment Impairment in functional use of her left UE including reaching overhead, behind her back, out to side Trainmaster Goal (LTG) Improve Quickdash score to no greater than 15% as measure of improved functional use of her left shoulder with her reporting improved sleep and the ability to reach overhead, behind her back, and out to side for all her usual activities. LTG Duration 12/22/21 Progress Towards Goals Progress Towards Goals Progressing Toward Goals Assessment Summary Assessment Only fair compliance to HEP, patient continues to modify activity due to pain, but noting functional improvement. Added shoulder adduction with theraband Physical Therapy Plan Frequency and Duration Frequency of Treatment 2x/Week Duration of Treatment 12 weeks Plan of Care Start Date 09/23/21 Plan of Care End Date 12/22/21 Therapeutic Interventions Therapeutic Interventions Aquatic Therapy,Home Exercise Program,Joint Mobilizations, Manual Therapy,Neuromuscular Re-education,Patient/Caregiver Education,Self-Care/Home Management,Sensory Integration ,Soft Tissue Mobilization, Taping,Therapeutic Activities, Therapeutic Exercises Modalities Cold Pack/Ice Massage,Electric Stimulation,Hot Packs, Infrared Therapy,Iontophoresis ,Ultrasound Next Visit Focus/Plan Next Note Type Treatment Note Next Visit Plan Progression of ther ex for left shoulder strengthening, ROM, stabilization. Manual therapy and modalities as needed.
--- NOTE | 2021-11-23 16:19 | PT.OTN ---
Current Diagnoses Pain in left shoulder (11/23/21) Strain of unspecified muscle, fascia and tendon at shoulder and upper arm level, left arm, initial encounter (11/23/21) Physical Therapy Treatment Note PT-OP-A Visit Information Start: 09/21/21 17:43 Freq: Status: Active Protocol: Document 11/23/21 09:52 SAK (Rec: 11/23/21 10:32 [facility] [id number]) Out-Patient Physical Therapy Visit Information Visit Information Visit Type Treatment Note Visit Start Time 09:45 Visit Stop Time 10:40 Total Visit Minutes 55 Visit Number 10 Evaluation Information Evaluation Date 09/22/21 Precautions Precautions history lumbar fusions L3-S1 PT-OP-B Current Condition Start: 09/21/21 17:43 Freq: Status: Active Protocol: Document 09/22/21 09:03 SAK (Rec: 09/22/21 09:46 [facility] [id number]) Current Condition History of Current Condition Onset Date 1+ year, no known cause, denies fall Current Complaints left shoulder pain, patient left handed History of Current Condition Pain with use of left shoulder , limited ability to sleep, can't do her hair, reach overhead. Hasn't tried ice or heat or magna wave machine ( has own). No other treatment. Has clicking in her shoulder with reaching. Prior Treatments and Tests no imaging. Treatment Goals Patient/Caregiver Goals minimize pain, reach overhead, behind back Prior Functional Status Baseline Function- ADL's Independent Baseline Function- Mobility Independent Current Functional Impairments (Reported) Functional Limitations- ADL's can't reach overhead, out to side, or behind her back Functional Limitations- Recreation/ unable Hobbies Personal Factors Other Personal Factors That May Effect none, no pacemaker. Therapy/Recovery PT-OP-C Subjective Start: 09/21/21 17:43 Freq: Status: Active Protocol: Document 11/23/21 09:52 SAK (Rec: 11/23/21 10:32 [facility] [id number]) OP-PT Subjective Patient Comments Patient Comments No new c/o, fair compliance to HEP. Overall improved, still has to be careful. PT-OP-E Functional Tests Start: 09/21/21 17:43 Freq: Status: Active Protocol: Document 09/23/21 16:49 SAK (Rec: 09/23/21 17:12 [facility] [id number]) Functional Tests Apley's Scratch Test Action 1- Left anterior chest Action 1- Right posterior shoulder Action 2- Left lateral neck Action 2- Right T2 Action 3- Left L5 Action 3- Right T12 PT-OP-J Posture/Palpation/Skin Start: 09/21/21 17:43 Freq: Status: Active Protocol: Document 09/23/21 16:49 [facility] (Rec: 09/23/21 17:12 [facility] [id number]) Posture Evaluation Position Sitting Head/C-Spine Posture Forward Head T-Spine Posture Increased Kyphosis Shoulder Posture (L) Rounded,(R) Rounded,(L) Forward,(R) Forward Scapula Posture (L) Protracted,(R) Protracted Arm Posture (L) Internally Rotated,(R) Internally Rotated Palpation Assessment Location anterior GH Palpation Findings Tenderness PT-OP-K Range of Motion Start: 09/21/21 17:43 Freq: Status: Active Protocol: Document 09/23/21 16:49 [facility] (Rec: 09/23/21 17:12 [facility] [id number]) Cervical Spine Range of Motion Cervical Spine Active Comments mod decrease all motions Shoulder Goniometric Range of Motion Shoulder Left Shoulder ROM WFL No Flexion 60 Extension 5 Abduction 105 Horizontal Adduction 20 External Rotation at 45 degrees 60 Abduction Internal Rotation Behind Back (text) L5 Right Shoulder ROM WFL Yes PT-OP-L Special Tests Start: 09/21/21 17:43 Freq: Status: Active Protocol: Document 09/23/21 16:49 [facility] (Rec: 09/23/21 17:12 [facility] [id number]) Special Tests Shoulder Special Tests Grind Labrum Test Results positive left Empty Can Test Results negative Passive ER Rotator Cuff Test Results negative Elevation Impingement Test Results positive left PT-OP-M Strength Start: 09/21/21 17:43 Freq: Status: Active Protocol: Document 09/23/21 16:49 [facility] (Rec: 09/23/21 17:12 [facility] [id number]) Shoulder Strength Shoulder Manual Muscle Testing Left Flexion 3- Fair- Extension 3+ Fair+ Abduction (C5) 3- Fair- Adduction 3+ Fair+ External Rotation 3+ Fair+ Comments limited by pain Right Flexion 5 Normal Extension 5 Normal Abduction (C5) 5 Normal External Rotation 4+ Good+ Internal Rotation 4+ Good+ Elbow/Forearm Strength Elbow and Forearm Manual Muscle Testing Left Flexion (C6) 4+ Good+ Extension (C7) 4+ Good+ Comments guarded but good strength without pain Right Flexion (C6) 5 Normal Extension (C7) 5 Normal PT-OP-Q Treatments Start: 09/21/21 17:43 Freq: Status: Active Protocol: Document 11/23/21 09:52 [facility] (Rec: 11/23/21 10:32 [facility] [id number]) Cardio Equipment Recumbent Stepper (Sci-Fit) Duration (Minutes) 6 Resistance 1.5 Therapeutic Exercises Sitting Exercises pulleys Sitting Exercise Name flex, scaption Reps/Minutes 10x Should ER Equipment Used L1 TB Reps/Minutes 10x shoulder ext Sitting Exercise Name paddle Equipment Used wand Reps/Minutes 10x forward lean with wand Equipment Used wand on floor Reps/Minutes 10x Comments for shoulder flex shld roll Sitting Exercise Name posterior shld rolls: reviewed HEP Resistance AROM Reps/Minutes x10 Comments good painfree, into end-range posterior Standing Exercises shoulder ext Resistance L1 TB Reps/Minutes 10x Comments manual cues for scap retr, UT inhib row Equipment Used L1 TB Reps/Minutes 10x Comments manual cues for scap retr, UT inhib shoulder ER Equipment Used L1 TB Reps/Minutes 10x Comments manual cues for scap retr, UT inhib Self-Care/Home Management Treatment Education Other Education Importance of increased HEP compliance PT-OP-R Modalities Start: 09/21/21 17:43 Freq: Status: Active Protocol: Document 11/23/21 09:52 [facility] (Rec: 11/23/21 10:32 [facility] [id number]) Electric Stimulation Electric Stimulation left shoulder Duration (Minutes) 15 Intensity 17 Target/Sweep Sweep Patient Position Hooklying Combined With Heat/Cold Hot Pack Comments strap for hot pack Ultrasound Therapy Treatment Left Anterior Shoulder Treatment Duration (minutes) 8 Patient Position Supine Coupling Medium Ultrasound Gel Frequency Setting (mHz) 1 Mode Setting Continuous Duty Cycle 100% Intensity Setting (w/cm2) 1.2 Comments good feedback response. PT-OP-T Assessment and Plan Start: 09/21/21 17:43 Freq: Status: Active Protocol: Document 11/23/21 09:52 [facility] (Rec: 11/23/21 10:32 [facility] [id number]) Physical Therapy Assessment Goals Four Impairment no HEP [employer] Goal (LTG) Patient will be independent and compliant with HEP for purposes of left shoulder ROm and strengthening LTG Duration 12/22/21 Three Impairment postural impairment Impairment forward head, rounded shoulders Senior Living Goal (LTG) Patient will demonstrate improvement in postural alignment to allow for more normal shoulder mechanics and function LTG Duration 12/22/21 Two Impairment pain left shoulder as high as 9/10 [employer] Goal (LTG) Decrease pain to no greater than 2/10 left shoulder with all usual activities LTG Duration 12/22/21 One Impairment Quickdash UE disability index score 45% Impairment Impairment in functional use of her left UE including reaching overhead, behind her back, out to side [employer] Goal (LTG) Improve Quickdash score to no greater than 15% as measure of improved functional use of her left shoulder with her reporting improved sleep and the ability to reach overhead, behind her back, and out to side for all her usual activities. LTG Duration 12/22/21 Progress Towards Goals Progress Towards Goals Progressing Toward Goals Assessment Summary Assessment Only fair compliance to HEP, patient continues to modify activity due to pain, but noting functional improvement. Added shoulder adduction with theraband Physical Therapy Plan Frequency and Duration Frequency of Treatment 2x/Week Duration of Treatment 12 weeks Plan of Care Start Date 09/23/21 Plan of Care End Date 12/22/21 Therapeutic Interventions Therapeutic Interventions Aquatic Therapy,Home Exercise Program,Joint Mobilizations, Manual Therapy,Neuromuscular Re-education,Patient/Caregiver Education,Self-Care/Home Management,Sensory Integration ,Soft Tissue Mobilization, Taping,Therapeutic Activities, Therapeutic Exercises Modalities Cold Pack/Ice Massage,Electric Stimulation,Hot Packs, Infrared Therapy,Iontophoresis ,Ultrasound Next Visit Focus/Plan Next Note Type Treatment Note Next Visit Plan Progression of ther ex for left shoulder strengthening, ROM, stabilization. Manual therapy and modalities as needed.
--- NOTE | 2021-11-30 17:03 | PT.OTN ---
Current Diagnoses Pain in left shoulder (11/30/21) Strain of unspecified muscle, fascia and tendon at shoulder and upper arm level, left arm, initial encounter (11/30/21) Physical Therapy Treatment Note PT-OP-A Visit Information Start: 09/21/21 17:43 Freq: Status: Active Protocol: Document 11/30/21 09:03 [facility] (Rec: 11/30/21 09:42 [facility] [id number]) Out-Patient Physical Therapy Visit Information Visit Information Visit Type Treatment Note Visit Start Time 09:00 Visit Stop Time 09:56 Total Visit Minutes 56 Visit Number 11 Evaluation Information Evaluation Date 09/22/21 Precautions Precautions history lumbar fusions L3-S1 PT-OP-B Current Condition Start: 09/21/21 17:43 Freq: Status: Active Protocol: Document 09/22/21 09:03 SAK (Rec: 09/22/21 09:46 [facility] [id number]) Current Condition History of Current Condition Onset Date 1+ year, no known cause, denies fall Current Complaints left shoulder pain, patient left handed History of Current Condition Pain with use of left shoulder , limited ability to sleep, can't do her hair, reach overhead. Hasn't tried ice or heat or magna wave machine ( has own). No other treatment. Has clicking in her shoulder with reaching. Prior Treatments and Tests no imaging. Treatment Goals Patient/Caregiver Goals minimize pain, reach overhead, behind back Prior Functional Status Baseline Function- ADL's Independent Baseline Function- Mobility Independent Current Functional Impairments (Reported) Functional Limitations- ADL's can't reach overhead, out to side, or behind her back Functional Limitations- Recreation/ unable Hobbies Personal Factors Other Personal Factors That May Effect none, no pacemaker. Therapy/Recovery PT-OP-C Subjective Start: 09/21/21 17:43 Freq: Status: Active Protocol: Document 11/30/21 09:03 SAK (Rec: 11/30/21 09:42 [facility] [id number]) OP-PT Subjective Patient Comments Patient Comments Shoulder doing better, working postural correction into her every day life better. PT-OP-E Functional Tests Start: 09/21/21 17:43 Freq: Status: Active Protocol: Document 09/23/21 16:49 SAK (Rec: 09/23/21 17:12 [facility] [id number]) Functional Tests Apley's Scratch Test Action 1- Left anterior chest Action 1- Right posterior shoulder Action 2- Left lateral neck Action 2- Right T2 Action 3- Left L5 Action 3- Right T12 PT-OP-J Posture/Palpation/Skin Start: 09/21/21 17:43 Freq: Status: Active Protocol: Document 09/23/21 16:49 [facility] (Rec: 09/23/21 17:12 [facility] [id number]) Posture Evaluation Position Sitting Head/C-Spine Posture Forward Head T-Spine Posture Increased Kyphosis Shoulder Posture (L) Rounded,(R) Rounded,(L) Forward,(R) Forward Scapula Posture (L) Protracted,(R) Protracted Arm Posture (L) Internally Rotated,(R) Internally Rotated Palpation Assessment Location anterior GH Palpation Findings Tenderness PT-OP-K Range of Motion Start: 09/21/21 17:43 Freq: Status: Active Protocol: Document 09/23/21 16:49 [facility] (Rec: 09/23/21 17:12 [facility] [id number]) Cervical Spine Range of Motion Cervical Spine Active Comments mod decrease all motions Shoulder Goniometric Range of Motion Shoulder Left Shoulder ROM WFL No Flexion 60 Extension 5 Abduction 105 Horizontal Adduction 20 External Rotation at 45 degrees 60 Abduction Internal Rotation Behind Back (text) L5 Right Shoulder ROM WFL Yes PT-OP-L Special Tests Start: 09/21/21 17:43 Freq: Status: Active Protocol: Document 09/23/21 16:49 [facility] (Rec: 09/23/21 17:12 [facility] [id number]) Special Tests Shoulder Special Tests Grind Labrum Test Results positive left Empty Can Test Results negative Passive ER Rotator Cuff Test Results negative Elevation Impingement Test Results positive left PT-OP-M Strength Start: 09/21/21 17:43 Freq: Status: Active Protocol: Document 09/23/21 16:49 [facility] (Rec: 09/23/21 17:12 [facility] [id number]) Shoulder Strength Shoulder Manual Muscle Testing Left Flexion 3- Fair- Extension 3+ Fair+ Abduction (C5) 3- Fair- Adduction 3+ Fair+ External Rotation 3+ Fair+ Comments limited by pain Right Flexion 5 Normal Extension 5 Normal Abduction (C5) 5 Normal External Rotation 4+ Good+ Internal Rotation 4+ Good+ Elbow/Forearm Strength Elbow and Forearm Manual Muscle Testing Left Flexion (C6) 4+ Good+ Extension (C7) 4+ Good+ Comments guarded but good strength without pain Right Flexion (C6) 5 Normal Extension (C7) 5 Normal PT-OP-Q Treatments Start: 09/21/21 17:43 Freq: Status: Active Protocol: Document 11/30/21 09:03 [facility] (Rec: 11/30/21 09:42 [facility] [id number]) Cardio Equipment Recumbent Stepper (Sci-Fit) Duration (Minutes) 7 Resistance 1.8 Manual Therapy Treatment Soft Tissue Mobilization 3 Body Location biceps tendon Mobilization Type Cross-Friction Intensity/Depth mod 1 Body Location L UT Mobilization Type Myofascial Release,Strumming Intensity/Depth Moderate Body Position Hooklying PT-OP-R Modalities Start: 09/21/21 17:43 Freq: Status: Active Protocol: Document 11/30/21 09:03 [facility] (Rec: 11/30/21 09:42 [facility] [id number]) Electric Stimulation Electric Stimulation left shoulder Duration (Minutes) 15 Intensity 17 Target/Sweep Sweep Patient Position Hooklying Combined With Heat/Cold Hot Pack Comments strap for hot pack Ultrasound Therapy Treatment Left Anterior Shoulder Treatment Duration (minutes) 8 Patient Position Supine Coupling Medium Ultrasound Gel Frequency Setting (mHz) 1 Mode Setting Continuous Duty Cycle 100% Intensity Setting (w/cm2) 1.2 Comments good feedback response. PT-OP-T Assessment and Plan Start: 09/21/21 17:43 Freq: Status: Active Protocol: Document 11/30/21 09:03 [facility] (Rec: 11/30/21 09:42 [facility] [id number]) Physical Therapy Assessment Goals Four Impairment no HEP Fdc Goal (LTG) Patient will be independent and compliant with HEP for purposes of left shoulder ROm and strengthening LTG Duration 12/22/21 Three Impairment postural impairment Impairment forward head, rounded shoulders [employer] Goal (LTG) Patient will demonstrate improvement in postural alignment to allow for more normal shoulder mechanics and function LTG Duration 12/22/21 Two Impairment pain left shoulder as high as 9/10 [employer] Goal (LTG) Decrease pain to no greater than 2/10 left shoulder with all usual activities LTG Duration 12/22/21 One Impairment Quickdash UE disability index score 45% Impairment Impairment in functional use of her left UE including reaching overhead, behind her back, out to side Fdc Goal (LTG) Improve Quickdash score to no greater than 15% as measure of improved functional use of her left shoulder with her reporting improved sleep and the ability to reach overhead, behind her back, and out to side for all her usual activities. LTG Duration 12/22/21 Progress Towards Goals Progress Towards Goals Progressing Toward Goals Assessment Summary Assessment Due to improved compliance to HEP more time with manual techniques to decrease soft tissue tension, trigger points with good tolerance. Physical Therapy Plan Frequency and Duration Frequency of Treatment 2x/Week Duration of Treatment 12 weeks Plan of Care Start Date 09/23/21 Plan of Care End Date 12/22/21 Therapeutic Interventions Therapeutic Interventions Aquatic Therapy,Home Exercise Program,Joint Mobilizations, Manual Therapy,Neuromuscular Re-education,Patient/Caregiver Education,Self-Care/Home Management,Sensory Integration ,Soft Tissue Mobilization, Taping,Therapeutic Activities, Therapeutic Exercises Modalities Cold Pack/Ice Massage,Electric Stimulation,Hot Packs, Infrared Therapy,Iontophoresis ,Ultrasound Next Visit Focus/Plan Next Note Type Treatment Note Next Visit Plan Continue manual therapy and modalities for pain management , progression of strengthening , flexibility, and postural correction exercises as tolerated.
--- NOTE | 2021-12-02 09:52 | PT.OTN ---
Current Diagnoses Pain in left shoulder (12/02/21) Strain of unspecified muscle, fascia and tendon at shoulder and upper arm level, left arm, initial encounter (12/02/21) Physical Therapy Treatment Note PT-OP-A Visit Information Start: 09/21/21 17:43 Freq: Status: Active Protocol: Document 12/02/21 09:49 SAK (Rec: 12/02/21 10:34 [facility] [id number]) Out-Patient Physical Therapy Visit Information Visit Information Visit Type Treatment Note Visit Start Time 09:48 Visit Stop Time 10:42 Total Visit Minutes 56 Visit Number 11 Evaluation Information Evaluation Date 09/22/21 Precautions Precautions history lumbar fusions L3-S1 PT-OP-B Current Condition Start: 09/21/21 17:43 Freq: Status: Active Protocol: Document 09/22/21 09:03 SAK (Rec: 09/22/21 09:46 SAK [id number]) Current Condition History of Current Condition Onset Date 1+ year, no known cause, denies fall Current Complaints left shoulder pain, patient left handed History of Current Condition Pain with use of left shoulder , limited ability to sleep, can't do her hair, reach overhead. Hasn't tried ice or heat or magna wave machine ( has own). No other treatment. Has clicking in her shoulder with reaching. Prior Treatments and Tests no imaging. Treatment Goals Patient/Caregiver Goals minimize pain, reach overhead, behind back Prior Functional Status Baseline Function- ADL's Independent Baseline Function- Mobility Independent Current Functional Impairments (Reported) Functional Limitations- ADL's can't reach overhead, out to side, or behind her back Functional Limitations- Recreation/ unable Hobbies Personal Factors Other Personal Factors That May Effect none, no pacemaker. Therapy/Recovery PT-OP-C Subjective Start: 09/21/21 17:43 Freq: Status: Active Protocol: Document 12/02/21 09:49 SAK (Rec: 12/02/21 10:34 [facility] [id number]) OP-PT Subjective Patient Comments Patient Comments Compliant to HEP and really working on her posture. [place] great after last session, but had sharp pain with lifting a mattress pad and shaking it out. States it was light but still very painful. PT-OP-E Functional Tests Start: 09/21/21 17:43 Freq: Status: Active Protocol: Document 09/23/21 16:49 SAK (Rec: 09/23/21 17:12 [facility] [id number]) Functional Tests Apley's Scratch Test Action 1- Left anterior chest Action 1- Right posterior shoulder Action 2- Left lateral neck Action 2- Right T2 Action 3- Left L5 Action 3- Right T12 PT-OP-J Posture/Palpation/Skin Start: 09/21/21 17:43 Freq: Status: Active Protocol: Document 09/23/21 16:49 [facility] (Rec: 09/23/21 17:12 [facility] [id number]) Posture Evaluation Position Sitting Head/C-Spine Posture Forward Head T-Spine Posture Increased Kyphosis Shoulder Posture (L) Rounded,(R) Rounded,(L) Forward,(R) Forward Scapula Posture (L) Protracted,(R) Protracted Arm Posture (L) Internally Rotated,(R) Internally Rotated Palpation Assessment Location anterior GH Palpation Findings Tenderness PT-OP-K Range of Motion Start: 09/21/21 17:43 Freq: Status: Active Protocol: Document 09/23/21 16:49 [facility] (Rec: 09/23/21 17:12 [facility] [id number]) Cervical Spine Range of Motion Cervical Spine Active Comments mod decrease all motions Shoulder Goniometric Range of Motion Shoulder Left Shoulder ROM WFL No Flexion 60 Extension 5 Abduction 105 Horizontal Adduction 20 External Rotation at 45 degrees 60 Abduction Internal Rotation Behind Back (text) L5 Right Shoulder ROM WFL Yes PT-OP-L Special Tests Start: 09/21/21 17:43 Freq: Status: Active Protocol: Document 09/23/21 16:49 [facility] (Rec: 09/23/21 17:12 [facility] [id number]) Special Tests Shoulder Special Tests Grind Labrum Test Results positive left Empty Can Test Results negative Passive ER Rotator Cuff Test Results negative Elevation Impingement Test Results positive left PT-OP-M Strength Start: 09/21/21 17:43 Freq: Status: Active Protocol: Document 09/23/21 16:49 [facility] (Rec: 09/23/21 17:12 [facility] [id number]) Shoulder Strength Shoulder Manual Muscle Testing Left Flexion 3- Fair- Extension 3+ Fair+ Abduction (C5) 3- Fair- Adduction 3+ Fair+ External Rotation 3+ Fair+ Comments limited by pain Right Flexion 5 Normal Extension 5 Normal Abduction (C5) 5 Normal External Rotation 4+ Good+ Internal Rotation 4+ Good+ Elbow/Forearm Strength Elbow and Forearm Manual Muscle Testing Left Flexion (C6) 4+ Good+ Extension (C7) 4+ Good+ Comments guarded but good strength without pain Right Flexion (C6) 5 Normal Extension (C7) 5 Normal PT-OP-Q Treatments Start: 09/21/21 17:43 Freq: Status: Active Protocol: Document 12/02/21 09:49 [facility] (Rec: 12/02/21 10:34 [facility] [id number]) Cardio Equipment Recumbent Stepper (Sci-Fit) Duration (Minutes) 8 Resistance 1.8 Therapeutic Exercises Sitting Exercises pulleys Sitting Exercise Name flex, scaption Reps/Minutes 10x Manual Therapy Treatment Soft Tissue Mobilization 3 Body Location biceps tendon Mobilization Type Cross-Friction Intensity/Depth mod 1 Body Location L UT Mobilization Type Myofascial Release,Strumming Intensity/Depth Moderate Body Position Hooklying PT-OP-R Modalities Start: 09/21/21 17:43 Freq: Status: Active Protocol: Document 12/02/21 09:49 [facility] (Rec: 12/02/21 10:34 [facility] [id number]) Electric Stimulation Electric Stimulation left shoulder Duration (Minutes) 15 Intensity 17 Target/Sweep Sweep Patient Position Hooklying Combined With Heat/Cold Hot Pack Comments strap for hot pack Ultrasound Therapy Treatment Left Anterior Shoulder Treatment Duration (minutes) 8 Patient Position Supine Coupling Medium Ultrasound Gel Frequency Setting (mHz) 1 Mode Setting Continuous Duty Cycle 100% Intensity Setting (w/cm2) 1.2 Comments good feedback response. PT-OP-T Assessment and Plan Start: 09/21/21 17:43 Freq: Status: Active Protocol: Document 12/02/21 09:49 [facility] (Rec: 12/02/21 10:34 [facility] [id number]) Physical Therapy Assessment Goals Four Impairment no HEP Prison Goal (LTG) Patient will be independent and compliant with HEP for purposes of left shoulder ROm and strengthening LTG Duration 12/22/21 Three Impairment postural impairment Impairment forward head, rounded shoulders Prison Goal (LTG) Patient will demonstrate improvement in postural alignment to allow for more normal shoulder mechanics and function LTG Duration 12/22/21 Two Impairment pain left shoulder as high as 9/10 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 LTG Duration 12/22/21 Assessment Summary Assessment Continues to improve with compliance to HEP, pain decreasing except for lifting and shaking movement. Has not been using pulleys today, stressed importance of movement with less strain, good benefit from pulleys. Physical Therapy Plan Frequency and Duration Frequency of Treatment 2x/Week Duration of Treatment 12 weeks Plan of Care Start Date 09/23/21 Plan of Care End Date 12/22/21 Therapeutic Interventions Therapeutic Interventions Aquatic Therapy,Home Exercise Program,Joint Mobilizations, Manual Therapy,Neuromuscular Re-education,Patient/Caregiver Education,Self-Care/Home Management,Sensory Integration ,Soft Tissue Mobilization, Taping,Therapeutic Activities, Therapeutic Exercises Modalities Cold Pack/Ice Massage,Electric Stimulation,Hot Packs, Infrared Therapy,Iontophoresis ,Ultrasound Next Visit Focus/Plan Next Note Type Treatment Note Next Visit Plan Continue manual therapy and modalities for pain management , progression of strengthening , flexibility, and postural correction exercises as tolerated.
--- NOTE | 2021-12-14 14:57 | PT.OTN ---
Current Diagnoses Pain in left shoulder (12/14/21) Strain of unspecified muscle, fascia and tendon at shoulder and upper arm level, left arm, initial encounter (12/14/21) Physical Therapy Treatment Note PT-OP-A Visit Information Start: 09/21/21 17:43 Freq: Status: Active Protocol: Document 12/14/21 13:02 [facility] (Rec: 12/14/21 13:48 [facility] [id number]) Out-Patient Physical Therapy Visit Information Visit Information Visit Type Treatment Note Visit Start Time 13:00 Visit Stop Time 14:00 Total Visit Minutes 60 Visit Number 13 Evaluation Information Evaluation Date 09/22/21 Precautions Precautions history lumbar fusions L3-S1 PT-OP-B Current Condition Start: 09/21/21 17:43 Freq: Status: Active Protocol: Document 09/22/21 09:03 SAK (Rec: 09/22/21 09:46 [facility] [id number]) Current Condition History of Current Condition Onset Date 1+ year, no known cause, denies fall Current Complaints left shoulder pain, patient left handed History of Current Condition Pain with use of left shoulder , limited ability to sleep, can't do her hair, reach overhead. Hasn't tried ice or heat or magna wave machine ( has own). No other treatment. Has clicking in her shoulder with reaching. Prior Treatments and Tests no imaging. Treatment Goals Patient/Caregiver Goals minimize pain, reach overhead, behind back Prior Functional Status Baseline Function- ADL's Independent Baseline Function- Mobility Independent Current Functional Impairments (Reported) Functional Limitations- ADL's can't reach overhead, out to side, or behind her back Functional Limitations- Recreation/ unable Hobbies Personal Factors Other Personal Factors That May Effect none, no pacemaker. Therapy/Recovery PT-OP-C Subjective Start: 09/21/21 17:43 Freq: Status: Active Protocol: Document 12/14/21 13:02 SAK (Rec: 12/14/21 13:48 [facility] [id number]) OP-PT Subjective Patient Comments Patient Comments Had 2nd Covid booster on left, painful but no other reaction. Planning road trip to [place], shoulder does ok with driving. Pain 0-9/10, worst with lifting overhead. Better after PT for rest of day and part of next. Doesn't want to do E-stim, feels may be irritating to her shoulder. Doing all HEP. PT-OP-E Functional Tests Start: 09/21/21 17:43 Freq: Status: Active Protocol: Document 09/23/21 16:49 [facility] (Rec: 09/23/21 17:12 [facility] [id number]) Functional Tests Apley's Scratch Test Action 1- Left anterior chest Action 1- Right posterior shoulder Action 2- Left lateral neck Action 2- Right T2 Action 3- Left L5 Action 3- Right T12 PT-OP-J Posture/Palpation/Skin Start: 09/21/21 17:43 Freq: Status: Active Protocol: Document 09/23/21 16:49 [facility] (Rec: 09/23/21 17:12 [facility] [id number]) Posture Evaluation Position Sitting Head/C-Spine Posture Forward Head T-Spine Posture Increased Kyphosis Shoulder Posture (L) Rounded,(R) Rounded,(L) Forward,(R) Forward Scapula Posture (L) Protracted,(R) Protracted Arm Posture (L) Internally Rotated,(R) Internally Rotated Palpation Assessment Location anterior GH Palpation Findings Tenderness PT-OP-K Range of Motion Start: 09/21/21 17:43 Freq: Status: Active Protocol: Document 09/23/21 16:49 [facility] (Rec: 09/23/21 17:12 [facility] [id number]) Cervical Spine Range of Motion Cervical Spine Active Comments mod decrease all motions Shoulder Goniometric Range of Motion Shoulder Left Shoulder ROM WFL No Flexion 60 Extension 5 Abduction 105 Horizontal Adduction 20 External Rotation at 45 degrees 60 Abduction Internal Rotation Behind Back (text) L5 Right Shoulder ROM WFL Yes PT-OP-L Special Tests Start: 09/21/21 17:43 Freq: Status: Active Protocol: Document 09/23/21 16:49 [facility] (Rec: 09/23/21 17:12 [facility] [id number]) Special Tests Shoulder Special Tests Grind Labrum Test Results positive left Empty Can Test Results negative Passive ER Rotator Cuff Test Results negative Elevation Impingement Test Results positive left PT-OP-M Strength Start: 09/21/21 17:43 Freq: Status: Active Protocol: Document 09/23/21 16:49 [facility] (Rec: 09/23/21 17:12 [facility] [id number]) Shoulder Strength Shoulder Manual Muscle Testing Left Flexion 3- Fair- Extension 3+ Fair+ Abduction (C5) 3- Fair- Adduction 3+ Fair+ External Rotation 3+ Fair+ Comments limited by pain Right Flexion 5 Normal Extension 5 Normal Abduction (C5) 5 Normal External Rotation 4+ Good+ Internal Rotation 4+ Good+ Elbow/Forearm Strength Elbow and Forearm Manual Muscle Testing Left Flexion (C6) 4+ Good+ Extension (C7) 4+ Good+ Comments guarded but good strength without pain Right Flexion (C6) 5 Normal Extension (C7) 5 Normal PT-OP-Q Treatments Start: 09/21/21 17:43 Freq: Status: Active Protocol: Document 12/14/21 13:02 [facility] (Rec: 12/14/21 13:48 [facility] [id number]) Cardio Equipment Recumbent Stepper (Sci-Fit) Duration (Minutes) 19 Resistance 1.8 Manual Therapy Treatment Soft Tissue Mobilization 3 Body Location biceps tendon Mobilization Type Cross-Friction Intensity/Depth mod 1 Body Location L UT Mobilization Type Myofascial Release,Strumming Intensity/Depth Moderate Body Position Hooklying Self-Care/Home Management Treatment Education Patient Education Body Mechanics,Home Exercise Program,Pain Management, Posture PT-OP-R Modalities Start: 09/21/21 17:43 Freq: Status: Active Protocol: Document 12/14/21 13:02 [facility] (Rec: 12/14/21 13:48 [facility] [id number]) Electric Stimulation Electric Stimulation left shoulder Comments not done per patient request Ultrasound Therapy Treatment Left Anterior Shoulder Treatment Duration (minutes) 8 Patient Position Supine Coupling Medium Ultrasound Gel Frequency Setting (mHz) 1 Mode Setting Continuous Duty Cycle 100% Intensity Setting (w/cm2) 1.2 Comments good feedback response. PT-OP-T Assessment and Plan Start: 09/21/21 17:43 Freq: Status: Active Protocol: Document 12/14/21 13:02 [facility] (Rec: 12/14/21 13:48 [facility] [id number]) Physical Therapy Assessment Goals Four Impairment no HEP Care Home Goal (LTG) Patient will be independent and compliant with HEP for purposes of left shoulder ROm and strengthening LTG Duration 12/22/21 Three Impairment postural impairment Impairment forward head, rounded shoulders Clinical Laboratory Science Professor Goal (LTG) Patient will demonstrate improvement in postural alignment to allow for more normal shoulder mechanics and function LTG Duration 12/22/21 Two Impairment pain left shoulder as high as 9/10 Care Home Goal (LTG) Decrease pain to no greater than 2/10 left shoulder with all usual activities LTG Duration 12/22/21 One Impairment Quickdash UE disability index score 45% Impairment Impairment in functional use of her left UE including reaching overhead, behind her back, out to side Clinical Laboratory Science Professor Goal (LTG) Improve Quickdash score to no greater than 15% as measure of improved functional use of her left shoulder with her reporting improved sleep and the ability to reach overhead, behind her back, and out to side for all her usual activities. LTG Duration 12/22/21 Assessment Summary Assessment Improved pain after PT, at times pain still severe with lifting overhead but is variable, overall improved. Good HEP performance Physical Therapy Plan Frequency and Duration Frequency of Treatment 2x/Week Duration of Treatment 12 weeks Plan of Care Start Date 09/23/21 Plan of Care End Date 12/22/21 Therapeutic Interventions Therapeutic Interventions Aquatic Therapy,Home Exercise Program,Joint Mobilizations, Manual Therapy,Neuromuscular Re-education,Patient/Caregiver Education,Self-Care/Home Management,Sensory Integration ,Soft Tissue Mobilization, Taping,Therapeutic Activities, Therapeutic Exercises Modalities Cold Pack/Ice Massage,Electric Stimulation,Hot Packs, Infrared Therapy,Iontophoresis ,Ultrasound Next Visit Focus/Plan Next Note Type Re-Evaluation Next Visit Plan Reassessment, continue progression of ROM, strengthening, pain management per POC.
--- NOTE | 2022-01-18 18:11 | PT.OTN ---
Current Diagnoses Pain in left shoulder (01/18/22) Strain of unspecified muscle, fascia and tendon at shoulder and upper arm level, left arm, initial encounter (01/18/22) Physical Therapy Treatment Note PT-OP-A Visit Information Start: 09/21/21 17:43 Freq: Status: Active Protocol: Document 01/18/22 08:12 SAK (Rec: 01/18/22 08:59 [facility] [id number]) Out-Patient Physical Therapy Visit Information Visit Information Visit Type Treatment Note Visit Start Time 08:15 Visit Stop Time 09:10 Total Visit Minutes 55 Visit Number 15 Evaluation Information Evaluation Date 09/22/21 Precautions Precautions history lumbar fusions L3-S1 PT-OP-B Current Condition Start: 09/21/21 17:43 Freq: Status: Active Protocol: Document 09/22/21 09:03 SAK (Rec: 09/22/21 09:46 SAK [id number]) Current Condition History of Current Condition Onset Date 1+ year, no known cause, denies fall Current Complaints left shoulder pain, patient left handed History of Current Condition Pain with use of left shoulder , limited ability to sleep, can't do her hair, reach overhead. Hasn't tried ice or heat or magna wave machine ( has own). No other treatment. Has clicking in her shoulder with reaching. Prior Treatments and Tests no imaging. Treatment Goals Patient/Caregiver Goals minimize pain, reach overhead, behind back Prior Functional Status Baseline Function- ADL's Independent Baseline Function- Mobility Independent Current Functional Impairments (Reported) Functional Limitations- ADL's can't reach overhead, out to side, or behind her back Functional Limitations- Recreation/ unable Hobbies Personal Factors Other Personal Factors That May Effect none, no pacemaker. Therapy/Recovery PT-OP-C Subjective Start: 09/21/21 17:43 Freq: Status: Active Protocol: Document 01/18/22 08:12 SAK (Rec: 01/18/22 08:59 [facility] [id number]) OP-PT Subjective Patient Comments Patient Comments Was on trip to [place], had issues with tachycardia, thought may be due to elevation. Called doctor when home, continues to have tachycardia and SOB, was seen in ER, also had high BP, sees doctor again today . Doesn't feel up to any exercise. Working hard on postural correction, forward thumb when standing and walking. PT-OP-E Functional Tests Start: 09/21/21 17:43 Freq: Status: Active Protocol: Document 09/23/21 16:49 [facility] (Rec: 09/23/21 17:12 [facility] [id number]) Functional Tests Apley's Scratch Test Action 1- Left anterior chest Action 1- Right posterior shoulder Action 2- Left lateral neck Action 2- Right T2 Action 3- Left L5 Action 3- Right T12 PT-OP-J Posture/Palpation/Skin Start: 09/21/21 17:43 Freq: Status: Active Protocol: Document 09/23/21 16:49 [facility] (Rec: 09/23/21 17:12 [facility] [id number]) Posture Evaluation Position Sitting Head/C-Spine Posture Forward Head T-Spine Posture Increased Kyphosis Shoulder Posture (L) Rounded,(R) Rounded,(L) Forward,(R) Forward Scapula Posture (L) Protracted,(R) Protracted Arm Posture (L) Internally Rotated,(R) Internally Rotated Palpation Assessment Location anterior GH Palpation Findings Tenderness PT-OP-K Range of Motion Start: 09/21/21 17:43 Freq: Status: Active Protocol: Document 09/23/21 16:49 [facility] (Rec: 09/23/21 17:12 [facility] [id number]) Cervical Spine Range of Motion Cervical Spine Active Comments mod decrease all motions Shoulder Goniometric Range of Motion Shoulder Left Shoulder ROM WFL No Flexion 60 Extension 5 Abduction 105 Horizontal Adduction 20 External Rotation at 45 degrees 60 Abduction Internal Rotation Behind Back (text) L5 Right Shoulder ROM WFL Yes PT-OP-L Special Tests Start: 09/21/21 17:43 Freq: Status: Active Protocol: Document 09/23/21 16:49 [facility] (Rec: 09/23/21 17:12 [facility] [id number]) Special Tests Shoulder Special Tests Grind Labrum Test Results positive left Empty Can Test Results negative Passive ER Rotator Cuff Test Results negative Elevation Impingement Test Results positive left PT-OP-M Strength Start: 09/21/21 17:43 Freq: Status: Active Protocol: Document 09/23/21 16:49 [facility] (Rec: 09/23/21 17:12 [facility] [id number]) Shoulder Strength Shoulder Manual Muscle Testing Left Flexion 3- Fair- Extension 3+ Fair+ Abduction (C5) 3- Fair- Adduction 3+ Fair+ External Rotation 3+ Fair+ Comments limited by pain Right Flexion 5 Normal Extension 5 Normal Abduction (C5) 5 Normal External Rotation 4+ Good+ Internal Rotation 4+ Good+ Elbow/Forearm Strength Elbow and Forearm Manual Muscle Testing Left Flexion (C6) 4+ Good+ Extension (C7) 4+ Good+ Comments guarded but good strength without pain Right Flexion (C6) 5 Normal Extension (C7) 5 Normal PT-OP-Q Treatments Start: 09/21/21 17:43 Freq: Status: Active Protocol: Document 01/18/22 08:12 [facility] (Rec: 01/19/22 18:10 [facility] [id number]) Manual Therapy Treatment Soft Tissue Mobilization subscap Body Location trigger points Mobilization Type Sustained Pressure,Trigger Point Release,Other Intensity/Depth Deep Body Position Hooklying Comments also pin and stretch with shoulder flex 3 Body Location biceps tendon Mobilization Type Cross-Friction Intensity/Depth mod 1 Body Location L UT Mobilization Type Myofascial Release,Strumming Intensity/Depth Moderate Body Position Hooklying Self-Care/Home Management Treatment Education Patient Education Body Mechanics,Home Exercise Program,Pain Management, Posture Other Education Importance of increased HEP compliance PT-OP-R Modalities Start: 09/21/21 17:43 Freq: Status: Active Protocol: Document 01/18/22 08:12 [facility] (Rec: 01/18/22 08:59 [facility] [id number]) Hot Pack/Cold Pack Treatment Hot Pack Location left shoulder Patient Position Hooklying Treatment Duration (minutes) 15 Patient Tolerance Good Ultrasound Therapy Treatment Left Anterior Shoulder Treatment Duration (minutes) 8 Patient Position Supine Coupling Medium Ultrasound Gel Frequency Setting (mHz) 1 Mode Setting Continuous Duty Cycle 100% Intensity Setting (w/cm2) 1.2 Comments good feedback response. PT-OP-T Assessment and Plan Start: 09/21/21 17:43 Freq: Status: Active Protocol: Document 01/18/22 08:12 [facility] (Rec: 01/18/22 08:59 [facility] [id number]) Physical Therapy Assessment Goals Four Impairment no HEP Group Home Goal (LTG) Patient will be independent and compliant with progressive HEP for purposes of left shoulder ROm and strengthening 12/16/21: progress with HEP compliance. She benefits from verbal and manual cues especially with theraband exercises to prevent UT overactivation, not fully independent with best performance. LTG Duration 02/14/22 Three Impairment postural impairment Impairment forward head, rounded shoulders Visual Developer Goal (LTG) Patient will demonstrate improvement in postural alignment to allow for more normal shoulder mechanics and function 12/16/21: goal progress LTG Duration 02/14/22 Two Impairment pain left shoulder as high as 9/10 Visual Developer Goal (LTG) Decrease pain to no greater than 2/10 left shoulder with all usual activities 12/16/21: reports pain 0-9/10, less frequently 9/10 especially in 1-2 days after PT LTG Duration 02/14/22 One Impairment Quickdash UE disability index score 45% Impairment Impairment in functional use of her left UE including reaching overhead, behind her back, out to side Visual Developer Goal (LTG) Improve Quickdash score to no greater than 15% as measure of improved functional use of her left shoulder with her reporting improved sleep and the ability to reach overhead, behind her back, and out to side for all her usual activities. 12/16/21: Quickdash score decreased to 32%, good progress LTG Duration 02/14/22 Assessment Summary Assessment Pt not able to tolerate active exercise, seeing compliance project manager today. Increased manual techniques left shoulder with good tolerance, improved tolerance for PROM vs active . Physical Therapy Plan Frequency and Duration Frequency of Treatment 2x/Week Duration of Treatment 12 weeks Plan of Care Start Date 12/16/21 Plan of Care End Date 02/14/22 Therapeutic Interventions Therapeutic Interventions Aquatic Therapy,Home Exercise Program,Joint Mobilizations, Manual Therapy,Neuromuscular Re-education,Patient/Caregiver Education,Self-Care/Home Management,Sensory Integration ,Soft Tissue Mobilization, Taping,Therapeutic Activities, Therapeutic Exercises Modalities Cold Pack/Ice Massage,Electric Stimulation,Hot Packs, Infrared Therapy,Iontophoresis ,Ultrasound Next Visit Focus/Plan Next Note Type Treatment Note Next Visit Plan Continue PT pending recommendations from compliance project manager. Stephanie VEGA recommended for home.
--- NOTE | 2022-03-02 12:52 | PT.OTRE ---
Current Diagnoses Pain in left shoulder (03/02/22) Strain of unspecified muscle, fascia and tendon at shoulder and upper arm level, left arm, initial encounter (03/02/22) Past Medical History (Last Reviewed 02/22/22 @ 15:09 by Andrea Lunsford MD) Asthma Cataract Chronic back pain CTS (carpal tunnel syndrome) JOHNSON (dyspnea on exertion) Essential hypertension (04/25/17) Greater trochanteric bursitis of left hip Hypercalcemia Hyperlipidemia Hyperparathyroidism Hypertension Left hamstring muscle strain Measles Obesity Osteoarthritis Strain of adductor nando muscle Strain of right psoas muscle Varicose veins of left lower extremity Surgical History (Last Reviewed 02/22/22 @ 15:09 by Andrea Lunsford MD) Anesthesia H/O colonoscopy with polypectomy (~10/2020) History of knee replacement (2016) History of spinal fusion (06/2009) History of spinal fusion (2011) Status post parathyroidectomy (2015) Status post tonsillectomy and adenoidectomy (1947) Visit Care Team Role Provider Type Deion Ordoñez MD Primary Care Provider Physician Specialty: Internal Medicine Pediatrics Address: [address] [place] [address] Phone: Fax: Email: [email or web address] Provider Physician Specialty: Family Practice Address: [address] [place] [address], [address] [place] [address] Email: [email or web address] Michelle Mcgarry MD Attending Provider Physician Referring Provider Specialty: Family Practice Address: [address] [place] [address] Phone: Fax: Email: [email or web address] Therapy Re-Evaluation PT-OP-A Visit Information Start: 09/21/21 17:43 Freq: Status: Active Protocol: Document 03/02/22 15:35 RALF (Rec: 03/02/22 15:55 SAK [id number]) Out-Patient Physical Therapy Visit Information Visit Information Visit Type Re-Evaluation Visit Start Time 13:03 Visit Stop Time 13:54 Total Visit Minutes 51 Visit Number 16 Evaluation Information Evaluation Date 09/22/21 Precautions Precautions history lumbar fusions L3-S1 PT-OP-B Current Condition Start: 09/21/21 17:43 Freq: Status: Active Protocol: Document 09/22/21 09:03 [facility] (Rec: 09/22/21 09:46 [facility] [id number]) Current Condition History of Current Condition Onset Date 1+ year, no known cause, denies fall Current Complaints left shoulder pain, patient left handed History of Current Condition Pain with use of left shoulder , limited ability to sleep, can't do her hair, reach overhead. Hasn't tried ice or heat or magna wave machine ( has own). No other treatment. Has clicking in her shoulder with reaching. Prior Treatments and Tests no imaging. Treatment Goals Patient/Caregiver Goals minimize pain, reach overhead, behind back Prior Functional Status Baseline Function- ADL's Independent Baseline Function- Mobility Independent Current Functional Impairments (Reported) Functional Limitations- ADL's can't reach overhead, out to side, or behind her back Functional Limitations- Recreation/ unable Hobbies Personal Factors Other Personal Factors That May Effect none, no pacemaker. Therapy/Recovery PT-OP-C Subjective Start: 09/21/21 17:43 Freq: Status: Active Protocol: Document 03/02/22 15:35 [facility] (Rec: 03/02/22 15:55 [facility] [id number]) OP-PT Subjective Patient Comments Patient Comments Still having issues with tachycardia, doing further testing with physician. [address], landed on right side, but left shoulder pain worse recently as well. Because of the fall and ongoing cardiac issues hasn't been very compliant to her HEP. Pain as high as 6/10 . PT-OP-E Functional Tests Start: 09/21/21 17:43 Freq: Status: Active Protocol: Document 09/23/21 16:49 [facility] (Rec: 09/23/21 17:12 [facility] [id number]) Functional Tests Apley's Scratch Test Action 1: The subject is instructed to touch the opposite shoulder with his/her hand. This motion checks Glenohumeral adduction, internal rotation , horizontal adduction and scapular protraction Action 2: The subject is instructed to place his/her arm overhead and reach behind the neck to touch his/her upper back. This motion checks Glenohumeral abduction, external rotation and scapular upward rotation and elevation. Action 3: The subject puts his/her hand on the lower back and reaches upward as far as possible. This motion checks glenohumeral adduction, internal rotation and scapular retraction with downward rotation Action 1- Left anterior chest Action 1- Right posterior shoulder Action 2- Left lateral neck Action 2- Right T2 Action 3- Left L5 Action 3- Right T12 PT-OP-J Posture/Palpation/Skin Start: 09/21/21 17:43 Freq: Status: Active Protocol: Document 09/23/21 16:49 [facility] (Rec: 09/23/21 17:12 [facility] [id number]) Posture Evaluation Position Sitting Head/C-Spine Posture Forward Head T-Spine Posture Increased Kyphosis Shoulder Posture (L) Rounded,(R) Rounded,(L) Forward,(R) Forward Scapula Posture (L) Protracted,(R) Protracted Arm Posture (L) Internally Rotated,(R) Internally Rotated Palpation Assessment Location anterior GH Palpation Findings Tenderness PT-OP-K Range of Motion Start: 09/21/21 17:43 Freq: Status: Active Protocol: Document 09/23/21 16:49 [facility] (Rec: 09/23/21 17:12 [facility] [id number]) Cervical Spine Range of Motion Cervical Spine Active Comments mod decrease all motions Shoulder Goniometric Range of Motion Shoulder Measured in Degrees Left Shoulder ROM WFL No Flexion 60 Extension 5 Abduction 105 Horizontal Adduction 20 External Rotation at 45 degrees 60 Abduction Internal Rotation Behind Back (text) L5 Right Shoulder ROM WFL Yes PT-OP-L Special Tests Start: 09/21/21 17:43 Freq: Status: Active Protocol: Document 09/23/21 16:49 [facility] (Rec: 09/23/21 17:12 [facility] [id number]) Special Tests Shoulder Special Tests Grind Labrum Test Results positive left Empty Can Test Results negative Passive ER Rotator Cuff Test Results negative Elevation Impingement Test Results positive left PT-OP-M Strength Start: 09/21/21 17:43 Freq: Status: Active Protocol: Document 09/23/21 16:49 [facility] (Rec: 09/23/21 17:12 [facility] [id number]) Shoulder Strength Shoulder Manual Muscle Testing Left Flexion 3- Fair- Extension 3+ Fair+ Abduction (C5) 3- Fair- Adduction 3+ Fair+ External Rotation 3+ Fair+ Comments limited by pain Right Flexion 5 Normal Extension 5 Normal Abduction (C5) 5 Normal External Rotation 4+ Good+ Internal Rotation 4+ Good+ Elbow/Forearm Strength Elbow and Forearm Manual Muscle Testing Left Flexion (C6) 4+ Good+ Extension (C7) 4+ Good+ Comments guarded but good strength without pain Right Flexion (C6) 5 Normal Extension (C7) 5 Normal PT-OP-Q Treatments Start: 09/21/21 17:43 Freq: Status: Active Protocol: Document 03/02/22 15:35 [facility] (Rec: 03/02/22 15:55 [facility] [id number]) Therapeutic Exercises Sitting Exercises pulleys Sitting Exercise Name flex, scaption Reps/Minutes 10x Comments dec tolerance today Manual Therapy Treatment Soft Tissue Mobilization 2 Body Location L proximal bicep, pec major, pec minor Mobilization Type Cross-Friction,Myofascial Release,Strumming,Sustained Pressure Intensity/Depth Deep Body Position Hooklying Joint Mobilizations 1 Joint L GH mob Direction posterior, inferior glide Grade II Body Position Hooklying Comments some pain today Self-Care/Home Management Treatment Education Patient Education Home Exercise Program,Posture Other Education imortance of postural correction, increased compliance to HEP PT-OP-R Modalities Start: 09/21/21 17:43 Freq: Status: Active Protocol: Document 03/02/22 15:35 [facility] (Rec: 03/02/22 15:55 [facility] [id number]) Hot Pack/Cold Pack Treatment Hot Pack Location left shoulder Patient Position Hooklying Treatment Duration (minutes) 15 Patient Tolerance Good Ultrasound Therapy Treatment Left Anterior Shoulder Treatment Duration (minutes) 8 Patient Position Supine Coupling Medium Ultrasound Gel Frequency Setting (mHz) 1 Mode Setting Continuous Duty Cycle 100% Intensity Setting (w/cm2) 1.2 Comments good feedback response. PT-OP-T Assessment and Plan Start: 09/21/21 17:43 Freq: Status: Active Protocol: Document 03/02/22 15:35 [facility] (Rec: 03/02/22 15:55 [facility] [id number]) Physical Therapy Assessment Impairments Impairments Activity Tolerance,Functional Activities,Pain,ROM,Strength Goals Four Impairment no HEP Residential Goal (LTG) Patient will be independent and compliant with progressive HEP for purposes of left shoulder ROm and strengthening 12/16/21: progress with HEP compliance. She benefits from verbal and manual cues especially with theraband exercises to prevent UT overactivation, not fully independent with best performance. 03/02/22: patient independent but poor compliance due to other medical issues, fall LTG Duration 05/02/22 Three Impairment postural impairment Impairment forward head, rounded shoulders Certified Medical Aide Goal (LTG) Patient will demonstrate improvement in postural alignment to allow for more normal shoulder mechanics and function 12/16/21: goal progress 03/02/22: incrased guarding noted today LTG Duration 05/02/22 Two Impairment pain left shoulder as high as 9/10 Certified Medical Aide Goal (LTG) Decrease pain to no greater than 2/10 left shoulder with all usual activities 12/16/21: reports pain 0-9/10, less frequently 9/10 especially in 1-2 days after PT 03/02/22: pain as high as 8/10, variable LTG Duration 05/02/22 One Impairment Quickdash UE disability index score 45% Impairment Impairment in functional use of her left UE including reaching overhead, behind her back, out to side Residential Goal (LTG) Improve Quickdash score to no greater than 15% as measure of improved functional use of her left shoulder with her reporting improved sleep and the ability to reach overhead, behind her back, and out to side for all her usual activities. 12/16/21: Quickdash score decreased to 32%, good progress 03/02/22: Quickdash score increased to 52% since last seen 01/10/22 and recent fall LTG Duration 05/02/22 Progress Towards Goals Progress Towards Goals Progressing Toward Goals Assessment Summary Assessment Patient pain increased, ROM and ability to use left UE decreased since last seen, reports fall 2 weeks ago. Low compliance to HEP due to other medical issues; cardiac work-up due to tachycardia. Recommended she see physician and consider further imaging, ice, gentle ROM. Would benefit from further skilled PT to decrease her pain and improve the function of her right shoulder. Physical Therapy Plan Frequency and Duration Frequency of Treatment 2x/Week Duration of Treatment 8 weeks Plan of Care Start Date 03/02/22 Plan of Care End Date 05/02/22 Therapeutic Interventions Therapeutic Interventions Aquatic Therapy,Home Exercise Program,Joint Mobilizations, Manual Therapy,Neuromuscular Re-education,Patient/Caregiver Education,Self-Care/Home Management,Sensory Integration ,Soft Tissue Mobilization, Taping,Therapeutic Activities, Therapeutic Exercises Modalities Cold Pack/Ice Massage,Electric Stimulation,Hot Packs, Infrared Therapy,Iontophoresis ,Ultrasound Next Visit Focus/Plan Next Note Type Treatment Note Next Visit Plan Gentle ROM and strengthening, postural correction exercises. Modalities and manual therapy PRN for pain control. Feel she may benefit from further imaging, possibly an MRI.
--- NOTE | 2022-03-02 12:53 | PT.OPPOC ---
Physical, Occupational & Speech Therapy At [facility] Current Diagnoses Pain in left shoulder (03/02/22) Strain of unspecified muscle, fascia and tendon at shoulder and upper arm level, left arm, initial encounter (03/02/22) Visit Care Team Role Provider Type Deion Ordoñez MD Primary Care Provider Physician Specialty: Internal Medicine Pediatrics Address: [address] [place] [address], [address] Phone: Fax: Email: [email or web address] Provider Physician Specialty: Family Practice Address: [address] [place] [address], [address], [place], [address] Email: [email or web address] Michelle Mcgarry MD Attending Provider Physician Referring Provider Specialty: [facility] Address: [address] [place] [address] Phone: Fax: Email: [email or web address] Plan Of Care PT-OP-T Assessment and Plan Start: 09/21/21 17:43 Freq: Status: Active Protocol: Document 03/02/22 15:35 [facility] (Rec: 03/02/22 15:55 [facility] [id number]) Physical Therapy Assessment Impairments Impairments Activity Tolerance,Functional Activities,Pain,ROM,Strength Goals Four Impairment no HEP Convolute Tube Winder Goal (LTG) Patient will be independent and compliant with progressive HEP for purposes of left shoulder ROm and strengthening 12/16/21: progress with HEP compliance. She benefits from verbal and manual cues especially with theraband exercises to prevent UT overactivation, not fully independent with best performance. 03/02/22: patient independent but poor compliance due to other medical issues, fall LTG Duration 05/02/22 Three Impairment postural impairment Impairment forward head, rounded shoulders Convolute Tube Winder Goal (LTG) Patient will demonstrate improvement in postural alignment to allow for more normal shoulder mechanics and function 12/16/21: goal progress 03/02/22: incrased guarding noted today LTG Duration 05/02/22 Two Impairment pain left shoulder as high as 9/10 Mcfp Goal (LTG) Decrease pain to no greater than 2/10 left shoulder with all usual activities 12/16/21: reports pain 0-9/10, less frequently 9/10 especially in 1-2 days after PT 03/02/22: pain as high as 8/10, variable LTG Duration 05/02/22 One Impairment Quickdash UE disability index score 45% Impairment Impairment in functional use of her left UE including reaching overhead, behind her back, out to side Mcfp Goal (LTG) Improve Quickdash score to no greater than 15% as measure of improved functional use of her left shoulder with her reporting improved sleep and the ability to reach overhead, behind her back, and out to side for all her usual activities. 12/16/21: Quickdash score decreased to 32%, good progress 03/02/22: Quickdash score increased to 52% since last seen 01/10/22 and recent fall LTG Duration 05/02/22 Progress Towards Goals Progress Towards Goals Progressing Toward Goals Assessment Summary Assessment Patient pain increased, ROM and ability to use left UE decreased since last seen, reports fall 2 weeks ago. Low compliance to HEP due to other medical issues; cardiac work-up due to tachycardia. Recommended she see physician and consider further imaging, ice, gentle ROM. Would benefit from further skilled PT to decrease her pain and improve the function of her right shoulder. Physical Therapy Plan Frequency and Duration Frequency of Treatment 2x/Week Duration of Treatment 8 weeks Plan of Care Start Date 03/02/22 Plan of Care End Date 05/02/22 Therapeutic Interventions Therapeutic Interventions Aquatic Therapy,Home Exercise Program,Joint Mobilizations, Manual Therapy,Neuromuscular Re-education,Patient/Caregiver Education,Self-Care/Home Management,Sensory Integration ,Soft Tissue Mobilization, Taping,Therapeutic Activities, Therapeutic Exercises Modalities Cold Pack/Ice Massage,Electric Stimulation,Hot Packs, Infrared Therapy,Iontophoresis ,Ultrasound Next Visit Focus/Plan Next Note Type Treatment Note Next Visit Plan Gentle ROM and strengthening, postural correction exercises. Modalities and manual therapy PRN for pain control. Feel she may benefit from further imaging, possibly an MRI. Plan of Care Dates Plan of Care Start Date 03/02/22 Plan of Care End Date 05/02/22 Electronically Signed by: Martina Feng, PT 03/03/22 7945 If you are in agreement with this Plan of Care, please return a signed and dated copy. I have reviewed this Plan of Care and certify that the skilled therapy services above are required to meet the patient?s needs. Physician Signature Date Printed Name and Credentials Clinical Instructor Signature Printed Name and Credentials
--- NOTE | 2022-03-09 13:02 | PT.OTN ---
Current Diagnoses Pain in left shoulder (03/09/22) Strain of unspecified muscle, fascia and tendon at shoulder and upper arm level, left arm, initial encounter (03/09/22) Physical Therapy Treatment Note PT-OP-A Visit Information Start: 09/21/21 17:43 Freq: Status: Active Protocol: Document 03/09/22 11:19 [facility] (Rec: 03/09/22 12:07 [facility] [id number]) Out-Patient Physical Therapy Visit Information Visit Information Visit Type Re-Evaluation Visit Start Time 11:20 Visit Stop Time 13:15 Total Visit Minutes 55 Visit Number 17 Evaluation Information Evaluation Date 09/22/21 Precautions Precautions history lumbar fusions L3-S1 PT-OP-B Current Condition Start: 09/21/21 17:43 Freq: Status: Active Protocol: Document 09/22/21 09:03 [facility] (Rec: 09/22/21 09:46 [facility] [id number]) Current Condition History of Current Condition Onset Date 1+ year, no known cause, denies fall Current Complaints left shoulder pain, patient left handed History of Current Condition Pain with use of left shoulder , limited ability to sleep, can't do her hair, reach overhead. Hasn't tried ice or heat or magna wave machine ( has own). No other treatment. Has clicking in her shoulder with reaching. Prior Treatments and Tests no imaging. Treatment Goals Patient/Caregiver Goals minimize pain, reach overhead, behind back Prior Functional Status Baseline Function- ADL's Independent Baseline Function- Mobility Independent Current Functional Impairments (Reported) Functional Limitations- ADL's can't reach overhead, out to side, or behind her back Functional Limitations- Recreation/ unable Hobbies Personal Factors Other Personal Factors That May Effect none, no pacemaker. Therapy/Recovery PT-OP-C Subjective Start: 09/21/21 17:43 Freq: Status: Active Protocol: Document 03/09/22 11:19 [facility] (Rec: 03/09/22 12:07 [facility] [id number]) OP-PT Subjective Patient Comments Patient Comments Sees Dr. Ordoñez tomorrow. Shoulder felt better for a couple days after last PT session, gradually returned. Low compliance to HEP. Had sister in ER with cardiac issues last night, poor rest. PT-OP-E Functional Tests Start: 09/21/21 17:43 Freq: Status: Active Protocol: Document 09/23/21 16:49 [facility] (Rec: 09/23/21 17:12 [facility] [id number]) Functional Tests Apley's Scratch Test Action 1- Left anterior chest Action 1- Right posterior shoulder Action 2- Left lateral neck Action 2- Right T2 Action 3- Left L5 Action 3- Right T12 PT-OP-J Posture/Palpation/Skin Start: 09/21/21 17:43 Freq: Status: Active Protocol: Document 09/23/21 16:49 [facility] (Rec: 09/23/21 17:12 [facility] [id number]) Posture Evaluation Position Sitting Head/C-Spine Posture Forward Head T-Spine Posture Increased Kyphosis Shoulder Posture (L) Rounded,(R) Rounded,(L) Forward,(R) Forward Scapula Posture (L) Protracted,(R) Protracted Arm Posture (L) Internally Rotated,(R) Internally Rotated Palpation Assessment Location anterior GH Palpation Findings Tenderness PT-OP-K Range of Motion Start: 09/21/21 17:43 Freq: Status: Active Protocol: Document 09/23/21 16:49 [facility] (Rec: 09/23/21 17:12 [facility] [id number]) Cervical Spine Range of Motion Cervical Spine Active Comments mod decrease all motions Shoulder Goniometric Range of Motion Shoulder Left Shoulder ROM WFL No Flexion 60 Extension 5 Abduction 105 Horizontal Adduction 20 External Rotation at 45 degrees 60 Abduction Internal Rotation Behind Back (text) L5 Right Shoulder ROM WFL Yes PT-OP-L Special Tests Start: 09/21/21 17:43 Freq: Status: Active Protocol: Document 09/23/21 16:49 [facility] (Rec: 09/23/21 17:12 [facility] [id number]) Special Tests Shoulder Special Tests Grind Labrum Test Results positive left Empty Can Test Results negative Passive ER Rotator Cuff Test Results negative Elevation Impingement Test Results positive left PT-OP-M Strength Start: 09/21/21 17:43 Freq: Status: Active Protocol: Document 09/23/21 16:49 [facility] (Rec: 09/23/21 17:12 [facility] [id number]) Shoulder Strength Shoulder Manual Muscle Testing Left Flexion 3- Fair- Extension 3+ Fair+ Abduction (C5) 3- Fair- Adduction 3+ Fair+ External Rotation 3+ Fair+ Comments limited by pain Right Flexion 5 Normal Extension 5 Normal Abduction (C5) 5 Normal External Rotation 4+ Good+ Internal Rotation 4+ Good+ Elbow/Forearm Strength Elbow and Forearm Manual Muscle Testing Left Flexion (C6) 4+ Good+ Extension (C7) 4+ Good+ Comments guarded but good strength without pain Right Flexion (C6) 5 Normal Extension (C7) 5 Normal PT-OP-Q Treatments Start: 09/21/21 17:43 Freq: Status: Active Protocol: Document 03/09/22 11:19 [facility] (Rec: 03/09/22 13:01 [facility] [id number]) Therapeutic Exercises Supine Exercises scapular squeeze Side bilateral Reps/Minutes 5x isometric I Side bilateral Resistance isometric against table Reps/Minutes 10x Comments elbows bent shld ER Side left Resistance L1 TB Reps/Minutes 10x AAROM shld wand Supine Exercise Name wand and clasping hands (hand clasp better tolerated) Side bilateral Resistance AAROM Reps/Minutes 10x Comments cues for pain-free ROM; flex to approx 125 deg Manual Therapy Treatment Soft Tissue Mobilization subscap Body Location trigger points Mobilization Type Sustained Pressure,Trigger Point Release,Other Intensity/Depth Deep Body Position Hooklying Comments also pin and stretch with shoulder flex 3 Body Location biceps tendon Mobilization Type Cross-Friction Intensity/Depth mod 2 Body Location L proximal bicep, pec major, pec minor Mobilization Type Cross-Friction,Myofascial Release,Strumming,Sustained Pressure Intensity/Depth Deep Body Position Hooklying 1 Body Location L UT Mobilization Type Myofascial Release,Strumming Intensity/Depth Moderate Body Position Hooklying Joint Mobilizations 1 Joint L GH mob Direction posterior, inferior glide Grade II Body Position Hooklying Comments some pain today PT-OP-R Modalities Start: 09/21/21 17:43 Freq: Status: Active Protocol: Document 03/09/22 11:19 [facility] (Rec: 03/09/22 13:02 [facility] [id number]) Hot Pack/Cold Pack Treatment Hot Pack Location left shoulder Patient Position Hooklying Treatment Duration (minutes) 15 Patient Tolerance Good PT-OP-T Assessment and Plan Start: 09/21/21 17:43 Freq: Status: Active Protocol: Document 03/09/22 11:19 [facility] (Rec: 03/09/22 12:07 [facility] [id number]) Physical Therapy Assessment Goals Four Impairment no HEP Mcc Goal (LTG) Patient will be independent and compliant with progressive HEP for purposes of left shoulder ROm and strengthening 12/16/21: progress with HEP compliance. She benefits from verbal and manual cues especially with theraband exercises to prevent UT overactivation, not fully independent with best performance. 03/02/22: patient independent but poor compliance due to other medical issues, fall LTG Duration 05/02/22 Three Impairment postural impairment Impairment forward head, rounded shoulders Mcc Goal (LTG) Patient will demonstrate improvement in postural alignment to allow for more normal shoulder mechanics and function 12/16/21: goal progress 03/02/22: incrased guarding noted today LTG Duration 05/02/22 Two Impairment pain left shoulder as high as 9/10 Heater Operator Helper Goal (LTG) Decrease pain to no greater than 2/10 left shoulder with all usual activities 12/16/21: reports pain 0-9/10, less frequently 9/10 especially in 1-2 days after PT 03/02/22: pain as high as 8/10, variable LTG Duration 05/02/22 One Impairment Quickdash UE disability index score 45% Impairment Impairment in functional use of her left UE including reaching overhead, behind her back, out to side Mcc Goal (LTG) Improve Quickdash score to no greater than 15% as measure of improved functional use of her left shoulder with her reporting improved sleep and the ability to reach overhead, behind her back, and out to side for all her usual activities. 12/16/21: Quickdash score decreased to 32%, good progress 03/02/22: Quickdash score increased to 52% since last seen 01/10/22 and recent fall LTG Duration 05/02/22 Assessment Summary Assessment Decreased pain for a couple days after PT last session, but returns. Sees Dr. Ordoñez tomorrow and plans to discuss further imaging. Low compliance to HEP due to medical issues of her own and sister's. Given 3 modified ex for HEP that she can do in bed at end of day if she realizes she hasn't done ex, well tolerated and issued updated HEP. Physical Therapy Plan Frequency and Duration Frequency of Treatment 2x/Week Duration of Treatment 8 weeks Plan of Care Start Date 03/02/22 Plan of Care End Date 05/02/22 Therapeutic Interventions Therapeutic Interventions Aquatic Therapy,Home Exercise Program,Joint Mobilizations, Manual Therapy,Neuromuscular Re-education,Patient/Caregiver Education,Self-Care/Home Management,Sensory Integration ,Soft Tissue Mobilization, Taping,Therapeutic Activities, Therapeutic Exercises Modalities Cold Pack/Ice Massage,Electric Stimulation,Hot Packs, Infrared Therapy,Iontophoresis ,Ultrasound Next Visit Focus/Plan Next Note Type Treatment Note Next Visit Plan Patient to see Dr. Ordoñez tomorrow, plans to discuss possible further imaging of left shoulder. Continue PT after PT returns from 2 week vacation pending recommendations from Dr. Ordoñez.
--- NOTE | 2022-04-04 16:44 | PT.OTN ---
Current Diagnoses Pain in left shoulder (04/04/22) Strain of unspecified muscle, fascia and tendon at shoulder and upper arm level, left arm, initial encounter (04/04/22) Physical Therapy Treatment Note PT-OP-A Visit Information Start: 09/21/21 17:43 Freq: Status: Active Protocol: Document 04/04/22 08:15 SAK (Rec: 04/04/22 09:00 [facility] [id number]) Out-Patient Physical Therapy Visit Information Visit Information Visit Type Treatment Note Visit Start Time 08:15 Visit Stop Time 09:10 Total Visit Minutes 55 Visit Number [id number] Evaluation Information Evaluation Date 09/22/21 Precautions Precautions history lumbar fusions L3-S1 PT-OP-B Current Condition Start: 09/21/21 17:43 Freq: Status: Active Protocol: Document 09/22/21 09:03 SAK (Rec: 09/22/21 09:46 SAK [id number]) Current Condition History of Current Condition Onset Date 1+ year, no known cause, denies fall Current Complaints left shoulder pain, patient left handed History of Current Condition Pain with use of left shoulder , limited ability to sleep, can't do her hair, reach overhead. Hasn't tried ice or heat or magna wave machine ( has own). No other treatment. Has clicking in her shoulder with reaching. Prior Treatments and Tests no imaging. Treatment Goals Patient/Caregiver Goals minimize pain, reach overhead, behind back Prior Functional Status Baseline Function- ADL's Independent Baseline Function- Mobility Independent Current Functional Impairments (Reported) Functional Limitations- ADL's can't reach overhead, out to side, or behind her back Functional Limitations- Recreation/ unable Hobbies Personal Factors Other Personal Factors That May Effect none, no pacemaker. Therapy/Recovery PT-OP-C Subjective Start: 09/21/21 17:43 Freq: Status: Active Protocol: Document 04/04/22 08:15 SAK (Rec: 04/04/22 09:00 [facility] [id number]) OP-PT Subjective Patient Comments Patient Comments Had UTI last week. Having MRI for shoulder this Monday at [facility]. Cardiac workup continues. Exercises supine on the bed are the best tolerated for her. PT-OP-E Functional Tests Start: 09/21/21 17:43 Freq: Status: Active Protocol: Document 09/23/21 16:49 SAK (Rec: 09/23/21 17:12 [facility] [id number]) Functional Tests Apley's Scratch Test Action 1- Left anterior chest Action 1- Right posterior shoulder Action 2- Left lateral neck Action 2- Right T2 Action 3- Left L5 Action 3- Right T12 PT-OP-J Posture/Palpation/Skin Start: 09/21/21 17:43 Freq: Status: Active Protocol: Document 09/23/21 16:49 [facility] (Rec: 09/23/21 17:12 [facility] [id number]) Posture Evaluation Position Sitting Head/C-Spine Posture Forward Head T-Spine Posture Increased Kyphosis Shoulder Posture (L) Rounded,(R) Rounded,(L) Forward,(R) Forward Scapula Posture (L) Protracted,(R) Protracted Arm Posture (L) Internally Rotated,(R) Internally Rotated Palpation Assessment Location anterior GH Palpation Findings Tenderness PT-OP-K Range of Motion Start: 09/21/21 17:43 Freq: Status: Active Protocol: Document 09/23/21 16:49 [facility] (Rec: 09/23/21 17:12 [facility] [id number]) Cervical Spine Range of Motion Cervical Spine Active Comments mod decrease all motions Shoulder Goniometric Range of Motion Shoulder Left Shoulder ROM WFL No Flexion 60 Extension 5 Abduction 105 Horizontal Adduction 20 External Rotation at 45 degrees 60 Abduction Internal Rotation Behind Back (text) L5 Right Shoulder ROM WFL Yes PT-OP-L Special Tests Start: 09/21/21 17:43 Freq: Status: Active Protocol: Document 09/23/21 16:49 [facility] (Rec: 09/23/21 17:12 [facility] [id number]) Special Tests Shoulder Special Tests Grind Labrum Test Results positive left Empty Can Test Results negative Passive ER Rotator Cuff Test Results negative Elevation Impingement Test Results positive left PT-OP-M Strength Start: 09/21/21 17:43 Freq: Status: Active Protocol: Document 09/23/21 16:49 [facility] (Rec: 09/23/21 17:12 [facility] [id number]) Shoulder Strength Shoulder Manual Muscle Testing Left Flexion 3- Fair- Extension 3+ Fair+ Abduction (C5) 3- Fair- Adduction 3+ Fair+ External Rotation 3+ Fair+ Comments limited by pain Right Flexion 5 Normal Extension 5 Normal Abduction (C5) 5 Normal External Rotation 4+ Good+ Internal Rotation 4+ Good+ Elbow/Forearm Strength Elbow and Forearm Manual Muscle Testing Left Flexion (C6) 4+ Good+ Extension (C7) 4+ Good+ Comments guarded but good strength without pain Right Flexion (C6) 5 Normal Extension (C7) 5 Normal PT-OP-Q Treatments Start: 09/21/21 17:43 Freq: Status: Active Protocol: Document 04/04/22 08:15 [facility] (Rec: 04/04/22 09:00 [facility] [id number]) Therapeutic Exercises Supine Exercises isometric I Side bilateral Resistance isometric against table Reps/Minutes 10x Comments elbows bent shld ER Side left Resistance L1 TB Reps/Minutes 10x AAROM shld wand Supine Exercise Name hands clasped Side bilateral Resistance AAROM Reps/Minutes 10x Comments cues for pain-free ROM; flex to approx 125 deg Sitting Exercises UT stretch Reps/Minutes 2x30 pulleys Sitting Exercise Name flex, scaption Reps/Minutes 10x Comments improved tolerance today espescially with shoulder thumb up positioning Manual Therapy Treatment Soft Tissue Mobilization subscap Body Location trigger points Mobilization Type Sustained Pressure,Trigger Point Release,Other Intensity/Depth Deep Body Position Hooklying Comments also pin and stretch with shoulder flex 3 Body Location biceps tendon Mobilization Type Cross-Friction Intensity/Depth mod 2 Body Location L proximal bicep, pec major, pec minor Mobilization Type Cross-Friction,Myofascial Release,Strumming,Sustained Pressure Intensity/Depth Deep Body Position Hooklying 1 Body Location L UT Mobilization Type Myofascial Release,Strumming Intensity/Depth Moderate Body Position Hooklying Joint Mobilizations 1 Joint L GH mob Direction posterior, inferior glide Grade II Body Position Hooklying Comments some pain today Taping left shoulder Body Location left shoulder Treatment Focus support, pain management Type of Tape kinesiotape Skin Inspection intact Comments 3 Y strips Self-Care/Home Management Treatment Education Patient Education Home Exercise Program,Posture Other Education imortance of postural correction, increased compliance to HEP PT-OP-R Modalities Start: 09/21/21 17:43 Freq: Status: Active Protocol: Document 04/04/22 08:15 [facility] (Rec: 04/04/22 09:00 [facility] [id number]) Hot Pack/Cold Pack Treatment Hot Pack Location left shoulder Patient Position Hooklying Treatment Duration (minutes) 15 Patient Tolerance Good Ultrasound Therapy Treatment Left Anterior Shoulder Treatment Duration (minutes) 8 Patient Position Supine Coupling Medium Ultrasound Gel Frequency Setting (mHz) 1 Mode Setting Continuous Duty Cycle 100% Intensity Setting (w/cm2) 1.2 Comments good feedback response. PT-OP-T Assessment and Plan Start: 09/21/21 17:43 Freq: Status: Active Protocol: Document 04/04/22 08:15 [facility] (Rec: 04/04/22 09:00 [facility] [id number]) Physical Therapy Assessment Goals Four Impairment no HEP Group Home Goal (LTG) Patient will be independent and compliant with progressive HEP for purposes of left shoulder ROm and strengthening 12/16/21: progress with HEP compliance. She benefits from verbal and manual cues especially with theraband exercises to prevent UT overactivation, not fully independent with best performance. 03/02/22: patient independent but poor compliance due to other medical issues, fall LTG Duration 05/02/22 Three Impairment postural impairment Impairment forward head, rounded shoulders Pensions Retirement Plan Specialist Goal (LTG) Patient will demonstrate improvement in postural alignment to allow for more normal shoulder mechanics and function 12/16/21: goal progress 03/02/22: incrased guarding noted today LTG Duration 05/02/22 Two Impairment pain left shoulder as high as 9/10 Group Home Goal (LTG) Decrease pain to no greater than 2/10 left shoulder with all usual activities 12/16/21: reports pain 0-9/10, less frequently 9/10 especially in 1-2 days after PT 03/02/22: pain as high as 8/10, variable LTG Duration 05/02/22 One Impairment Quickdash UE disability index score 45% Impairment Impairment in functional use of her left UE including reaching overhead, behind her back, out to side Pensions Retirement Plan Specialist Goal (LTG) Improve Quickdash score to no greater than 15% as measure of improved functional use of her left shoulder with her reporting improved sleep and the ability to reach overhead, behind her back, and out to side for all her usual activities. 12/16/21: Quickdash score decreased to 32%, good progress 03/02/22: Quickdash score increased to 52% since last seen 01/10/22 and recent fall LTG Duration 05/02/22 Assessment Summary Assessment Patient pain variable depending on activity but still as high as 9/10. Going to have MRI this Monday. Improved symptoms with PT. Needs encouragement to increase compliance with HEP, though is impacted by multiple medical issues at this time. Physical Therapy Plan Frequency and Duration Frequency of Treatment 2x/Week Duration of Treatment 8 weeks Plan of Care Start Date 03/02/22 Plan of Care End Date 05/02/22 Therapeutic Interventions Therapeutic Interventions Aquatic Therapy,Home Exercise Program,Joint Mobilizations, Manual Therapy,Neuromuscular Re-education,Patient/Caregiver Education,Self-Care/Home Management,Sensory Integration ,Soft Tissue Mobilization, Taping,Therapeutic Activities, Therapeutic Exercises Modalities Cold Pack/Ice Massage,Electric Stimulation,Hot Packs, Infrared Therapy,Iontophoresis ,Ultrasound Next Visit Focus/Plan Next Note Type Treatment Note Next Visit Plan add supine T and Y with theraband. Progress shoulder strengrhening and stabilization as tolerated Continue manual techniques for improving shoulder kinematics , improved positioning of humerus in GH joint, decreased soft tissue tightness.
--- NOTE | 2022-04-04 16:44 | PT.OTN ---
Current Diagnoses Pain in left shoulder (04/04/22) Strain of unspecified muscle, fascia and tendon at shoulder and upper arm level, left arm, initial encounter (04/04/22) Physical Therapy Treatment Note PT-OP-A Visit Information Start: 09/21/21 17:43 Freq: Status: Active Protocol: Document 04/04/22 08:15 SAK (Rec: 04/04/22 09:00 [facility] [id number]) Out-Patient Physical Therapy Visit Information Visit Information Visit Type Treatment Note Visit Start Time 08:15 Visit Stop Time 09:10 Total Visit Minutes 55 Visit Number 18 Evaluation Information Evaluation Date 09/22/21 Precautions Precautions history lumbar fusions L3-S1 PT-OP-B Current Condition Start: 09/21/21 17:43 Freq: Status: Active Protocol: Document 09/22/21 09:03 SAK (Rec: 09/22/21 09:46 SAK [id number]) Current Condition History of Current Condition Onset Date 1+ year, no known cause, denies fall Current Complaints left shoulder pain, patient left handed History of Current Condition Pain with use of left shoulder , limited ability to sleep, can't do her hair, reach overhead. Hasn't tried ice or heat or magna wave machine ( has own). No other treatment. Has clicking in her shoulder with reaching. Prior Treatments and Tests no imaging. Treatment Goals Patient/Caregiver Goals minimize pain, reach overhead, behind back Prior Functional Status Baseline Function- ADL's Independent Baseline Function- Mobility Independent Current Functional Impairments (Reported) Functional Limitations- ADL's can't reach overhead, out to side, or behind her back Functional Limitations- Recreation/ unable Hobbies Personal Factors Other Personal Factors That May Effect none, no pacemaker. Therapy/Recovery PT-OP-C Subjective Start: 09/21/21 17:43 Freq: Status: Active Protocol: Document 04/04/22 08:15 SAK (Rec: 04/04/22 09:00 [facility] [id number]) OP-PT Subjective Patient Comments Patient Comments Had UTI last week. Having MRI for shoulder this Monday at [facility]. Cardiac workup continues. Exercises supine on the bed are the best tolerated for her. PT-OP-E Functional Tests Start: 09/21/21 17:43 Freq: Status: Active Protocol: Document 09/23/21 16:49 SAK (Rec: 09/23/21 17:12 [facility] [id number]) Functional Tests Apley's Scratch Test Action 1- Left anterior chest Action 1- Right posterior shoulder Action 2- Left lateral neck Action 2- Right T2 Action 3- Left L5 Action 3- Right T12 PT-OP-J Posture/Palpation/Skin Start: 09/21/21 17:43 Freq: Status: Active Protocol: Document 09/23/21 16:49 [facility] (Rec: 09/23/21 17:12 [facility] [id number]) Posture Evaluation Position Sitting Head/C-Spine Posture Forward Head T-Spine Posture Increased Kyphosis Shoulder Posture (L) Rounded,(R) Rounded,(L) Forward,(R) Forward Scapula Posture (L) Protracted,(R) Protracted Arm Posture (L) Internally Rotated,(R) Internally Rotated Palpation Assessment Location anterior GH Palpation Findings Tenderness PT-OP-K Range of Motion Start: 09/21/21 17:43 Freq: Status: Active Protocol: Document 09/23/21 16:49 [facility] (Rec: 09/23/21 17:12 [facility] [id number]) Cervical Spine Range of Motion Cervical Spine Active Comments mod decrease all motions Shoulder Goniometric Range of Motion Shoulder Left Shoulder ROM WFL No Flexion 60 Extension 5 Abduction 105 Horizontal Adduction 20 External Rotation at 45 degrees 60 Abduction Internal Rotation Behind Back (text) L5 Right Shoulder ROM WFL Yes PT-OP-L Special Tests Start: 09/21/21 17:43 Freq: Status: Active Protocol: Document 09/23/21 16:49 [facility] (Rec: 09/23/21 17:12 [facility] [id number]) Special Tests Shoulder Special Tests Grind Labrum Test Results positive left Empty Can Test Results negative Passive ER Rotator Cuff Test Results negative Elevation Impingement Test Results positive left PT-OP-M Strength Start: 09/21/21 17:43 Freq: Status: Active Protocol: Document 09/23/21 16:49 [facility] (Rec: 09/23/21 17:12 [facility] [id number]) Shoulder Strength Shoulder Manual Muscle Testing Left Flexion 3- Fair- Extension 3+ Fair+ Abduction (C5) 3- Fair- Adduction 3+ Fair+ External Rotation 3+ Fair+ Comments limited by pain Right Flexion 5 Normal Extension 5 Normal Abduction (C5) 5 Normal External Rotation 4+ Good+ Internal Rotation 4+ Good+ Elbow/Forearm Strength Elbow and Forearm Manual Muscle Testing Left Flexion (C6) 4+ Good+ Extension (C7) 4+ Good+ Comments guarded but good strength without pain Right Flexion (C6) 5 Normal Extension (C7) 5 Normal PT-OP-Q Treatments Start: 09/21/21 17:43 Freq: Status: Active Protocol: Document 04/04/22 08:15 [facility] (Rec: 04/04/22 09:00 [facility] [id number]) Therapeutic Exercises Supine Exercises isometric I Side bilateral Resistance isometric against table Reps/Minutes 10x Comments elbows bent shld ER Side left Resistance L1 TB Reps/Minutes 10x AAROM shld wand Supine Exercise Name hands clasped Side bilateral Resistance AAROM Reps/Minutes 10x Comments cues for pain-free ROM; flex to approx 125 deg Sitting Exercises UT stretch Reps/Minutes 2x30 pulleys Sitting Exercise Name flex, scaption Reps/Minutes 10x Comments improved tolerance today espescially with shoulder thumb up positioning Manual Therapy Treatment Soft Tissue Mobilization subscap Body Location trigger points Mobilization Type Sustained Pressure,Trigger Point Release,Other Intensity/Depth Deep Body Position Hooklying Comments also pin and stretch with shoulder flex 3 Body Location biceps tendon Mobilization Type Cross-Friction Intensity/Depth mod 2 Body Location L proximal bicep, pec major, pec minor Mobilization Type Cross-Friction,Myofascial Release,Strumming,Sustained Pressure Intensity/Depth Deep Body Position Hooklying 1 Body Location L UT Mobilization Type Myofascial Release,Strumming Intensity/Depth Moderate Body Position Hooklying Joint Mobilizations 1 Joint L GH mob Direction posterior, inferior glide Grade II Body Position Hooklying Comments some pain today Taping left shoulder Body Location left shoulder Treatment Focus support, pain management Type of Tape kinesiotape Skin Inspection intact Comments 3 Y strips Self-Care/Home Management Treatment Education Patient Education Home Exercise Program,Posture Other Education imortance of postural correction, increased compliance to HEP PT-OP-R Modalities Start: 09/21/21 17:43 Freq: Status: Active Protocol: Document 04/04/22 08:15 [facility] (Rec: 04/04/22 09:00 [facility] [id number]) Hot Pack/Cold Pack Treatment Hot Pack Location left shoulder Patient Position Hooklying Treatment Duration (minutes) 15 Patient Tolerance Good Ultrasound Therapy Treatment Left Anterior Shoulder Treatment Duration (minutes) 8 Patient Position Supine Coupling Medium Ultrasound Gel Frequency Setting (mHz) 1 Mode Setting Continuous Duty Cycle 100% Intensity Setting (w/cm2) 1.2 Comments good feedback response. PT-OP-T Assessment and Plan Start: 09/21/21 17:43 Freq: Status: Active Protocol: Document 04/04/22 08:15 [facility] (Rec: 04/04/22 09:00 [facility] [id number]) Physical Therapy Assessment Goals Four Impairment no HEP Correction Goal (LTG) Patient will be independent and compliant with progressive HEP for purposes of left shoulder ROm and strengthening 12/16/21: progress with HEP compliance. She benefits from verbal and manual cues especially with theraband exercises to prevent UT overactivation, not fully independent with best performance. 03/02/22: patient independent but poor compliance due to other medical issues, fall LTG Duration 05/02/22 Three Impairment postural impairment Impairment forward head, rounded shoulders Construction Technician Goal (LTG) Patient will demonstrate improvement in postural alignment to allow for more normal shoulder mechanics and function 12/16/21: goal progress 03/02/22: incrased guarding noted today LTG Duration 05/02/22 Two Impairment pain left shoulder as high as 9/10 Correction Goal (LTG) Decrease pain to no greater than 2/10 left shoulder with all usual activities 12/16/21: reports pain 0-9/10, less frequently 9/10 especially in 1-2 days after PT 03/02/22: pain as high as 8/10, variable LTG Duration 05/02/22 One Impairment Quickdash UE disability index score 45% Impairment Impairment in functional use of her left UE including reaching overhead, behind her back, out to side Construction Technician Goal (LTG) Improve Quickdash score to no greater than 15% as measure of improved functional use of her left shoulder with her reporting improved sleep and the ability to reach overhead, behind her back, and out to side for all her usual activities. 12/16/21: Quickdash score decreased to 32%, good progress 03/02/22: Quickdash score increased to 52% since last seen 01/10/22 and recent fall LTG Duration 05/02/22 Assessment Summary Assessment Patient pain variable depending on activity but still as high as 9/10. Going to have MRI this Monday. Improved symptoms with PT. Needs encouragement to increase compliance with HEP, though is impacted by multiple medical issues at this time. Physical Therapy Plan Frequency and Duration Frequency of Treatment 2x/Week Duration of Treatment 8 weeks Plan of Care Start Date 03/02/22 Plan of Care End Date 05/02/22 Therapeutic Interventions Therapeutic Interventions Aquatic Therapy,Home Exercise Program,Joint Mobilizations, Manual Therapy,Neuromuscular Re-education,Patient/Caregiver Education,Self-Care/Home Management,Sensory Integration ,Soft Tissue Mobilization, Taping,Therapeutic Activities, Therapeutic Exercises Modalities Cold Pack/Ice Massage,Electric Stimulation,Hot Packs, Infrared Therapy,Iontophoresis ,Ultrasound Next Visit Focus/Plan Next Note Type Treatment Note Next Visit Plan add supine T and Y with theraband. Progress shoulder strengrhening and stabilization as tolerated Continue manual techniques for improving shoulder kinematics , improved positioning of humerus in GH joint, decreased soft tissue tightness.
--- NOTE | 2022-04-07 09:13 | PT.OTN ---
Current Diagnoses Pain in left shoulder (04/07/22) Strain of unspecified muscle, fascia and tendon at shoulder and upper arm level, left arm, initial encounter (04/07/22) Physical Therapy Treatment Note PT-OP-A Visit Information Start: 09/21/21 17:43 Freq: Status: Active Protocol: Document 04/07/22 08:15 SAK (Rec: 04/07/22 09:12 [facility] [id number]) Out-Patient Physical Therapy Visit Information Visit Information Visit Type Treatment Note Visit Start Time 08:15 Visit Stop Time 09:10 Total Visit Minutes 55 Visit Number 19 Evaluation Information Evaluation Date 09/22/21 Precautions Precautions history lumbar fusions L3-S1 PT-OP-B Current Condition Start: 09/21/21 17:43 Freq: Status: Active Protocol: Document 09/22/21 09:03 SAK (Rec: 09/22/21 09:46 SAK [id number]) Current Condition History of Current Condition Onset Date 1+ year, no known cause, denies fall Current Complaints left shoulder pain, patient left handed History of Current Condition Pain with use of left shoulder , limited ability to sleep, can't do her hair, reach overhead. Hasn't tried ice or heat or magna wave machine ( has own). No other treatment. Has clicking in her shoulder with reaching. Prior Treatments and Tests no imaging. Treatment Goals Patient/Caregiver Goals minimize pain, reach overhead, behind back Prior Functional Status Baseline Function- ADL's Independent Baseline Function- Mobility Independent Current Functional Impairments (Reported) Functional Limitations- ADL's can't reach overhead, out to side, or behind her back Functional Limitations- Recreation/ unable Hobbies Personal Factors Other Personal Factors That May Effect none, no pacemaker. Therapy/Recovery PT-OP-C Subjective Start: 09/21/21 17:43 Freq: Status: Active Protocol: Document 04/07/22 08:15 SAK (Rec: 04/07/22 09:12 [facility] [id number]) OP-PT Subjective Patient Comments Patient Comments Didn't feel any effect from kinesiotape. Hasn't hooked pulleys up to do yet. Has MRI on Monday. PT-OP-E Functional Tests Start: 09/21/21 17:43 Freq: Status: Active Protocol: Document 09/23/21 16:49 SAK (Rec: 09/23/21 17:12 [facility] [id number]) Functional Tests Apley's Scratch Test Action 1- Left anterior chest Action 1- Right posterior shoulder Action 2- Left lateral neck Action 2- Right T2 Action 3- Left L5 Action 3- Right T12 PT-OP-J Posture/Palpation/Skin Start: 09/21/21 17:43 Freq: Status: Active Protocol: Document 09/23/21 16:49 [facility] (Rec: 09/23/21 17:12 [facility] [id number]) Posture Evaluation Position Sitting Head/C-Spine Posture Forward Head T-Spine Posture Increased Kyphosis Shoulder Posture (L) Rounded,(R) Rounded,(L) Forward,(R) Forward Scapula Posture (L) Protracted,(R) Protracted Arm Posture (L) Internally Rotated,(R) Internally Rotated Palpation Assessment Location anterior GH Palpation Findings Tenderness PT-OP-K Range of Motion Start: 09/21/21 17:43 Freq: Status: Active Protocol: Document 09/23/21 16:49 [facility] (Rec: 09/23/21 17:12 [facility] [id number]) Cervical Spine Range of Motion Cervical Spine Active Comments mod decrease all motions Shoulder Goniometric Range of Motion Shoulder Left Shoulder ROM WFL No Flexion 60 Extension 5 Abduction 105 Horizontal Adduction 20 External Rotation at 45 degrees 60 Abduction Internal Rotation Behind Back (text) L5 Right Shoulder ROM WFL Yes PT-OP-L Special Tests Start: 09/21/21 17:43 Freq: Status: Active Protocol: Document 09/23/21 16:49 [facility] (Rec: 09/23/21 17:12 [facility] [id number]) Special Tests Shoulder Special Tests Grind Labrum Test Results positive left Empty Can Test Results negative Passive ER Rotator Cuff Test Results negative Elevation Impingement Test Results positive left PT-OP-M Strength Start: 09/21/21 17:43 Freq: Status: Active Protocol: Document 09/23/21 16:49 [facility] (Rec: 09/23/21 17:12 [facility] [id number]) Shoulder Strength Shoulder Manual Muscle Testing Left Flexion 3- Fair- Extension 3+ Fair+ Abduction (C5) 3- Fair- Adduction 3+ Fair+ External Rotation 3+ Fair+ Comments limited by pain Right Flexion 5 Normal Extension 5 Normal Abduction (C5) 5 Normal External Rotation 4+ Good+ Internal Rotation 4+ Good+ Elbow/Forearm Strength Elbow and Forearm Manual Muscle Testing Left Flexion (C6) 4+ Good+ Extension (C7) 4+ Good+ Comments guarded but good strength without pain Right Flexion (C6) 5 Normal Extension (C7) 5 Normal PT-OP-Q Treatments Start: 09/21/21 17:43 Freq: Status: Active Protocol: Document 04/07/22 08:15 [facility] (Rec: 04/07/22 09:12 [facility] [id number]) Therapeutic Exercises Supine Exercises Shoulder flexion Equipment Used L1 TB Reps/Minutes 10x scapular squeeze Side bilateral Reps/Minutes 5x isometric I Side bilateral Resistance isometric against table Reps/Minutes 10x Comments elbows bent shld ER Side left Resistance L1 TB Reps/Minutes 10x AAROM shld wand Supine Exercise Name hands clasped Side bilateral Resistance AAROM Reps/Minutes 10x Comments cues for pain-free ROM; flex to approx 125 deg Sidelying Exercises shoulder abd Reps/Minutes 10x Comments with manual upward rotation of scapula, mod assist shoulder flex Reps/Minutes 10x Comments with manual upward rotation of scapula, mod assist shoulder ER Reps/Minutes 10x Comments verbal and tactile cues Sitting Exercises UT stretch Reps/Minutes 2x30 pulleys Sitting Exercise Name flex, scaption Reps/Minutes 10x Comments improved tolerance today espescially with shoulder thumb up positioning Manual Therapy Treatment Soft Tissue Mobilization subscap Body Location trigger points Mobilization Type Sustained Pressure,Trigger Point Release,Other Intensity/Depth Deep Body Position Hooklying Comments also pin and stretch with shoulder flex 3 Body Location biceps Mobilization Type Cross-Friction,Myofascial Release Intensity/Depth mod 2 Body Location L proximal bicep, pec major, pec minor Mobilization Type Cross-Friction,Myofascial Release,Strumming,Sustained Pressure Intensity/Depth Deep Body Position Hooklying 1 Body Location L UT Mobilization Type Myofascial Release,Strumming Intensity/Depth Moderate Body Position Hooklying Joint Mobilizations scapula Joint post and inf Grade II Body Position Sidelying 1 Joint L GH mob Direction posterior, inferior glide Grade II Body Position Hooklying Comments some pain today Taping left shoulder Comments not done due to patient reporting no effect PT-OP-R Modalities Start: 09/21/21 17:43 Freq: Status: Active Protocol: Document 04/07/22 08:15 [facility] (Rec: 04/07/22 09:12 [facility] [id number]) Hot Pack/Cold Pack Treatment Hot Pack Location left shoulder Patient Position Hooklying Treatment Duration (minutes) 15 Patient Tolerance Good Ultrasound Therapy Treatment Left Anterior Shoulder Treatment Duration (minutes) 8 Patient Position Supine Coupling Medium Ultrasound Gel Frequency Setting (mHz) 1 Mode Setting Continuous Duty Cycle 100% Intensity Setting (w/cm2) 1.2 Comments good feedback response. PT-OP-T Assessment and Plan Start: 09/21/21 17:43 Freq: Status: Active Protocol: Document 04/07/22 08:15 [facility] (Rec: 04/07/22 09:12 [facility] [id number]) Physical Therapy Assessment Goals Four Impairment no HEP Senior Care Goal (LTG) Patient will be independent and compliant with progressive HEP for purposes of left shoulder ROm and strengthening 12/16/21: progress with HEP compliance. She benefits from verbal and manual cues especially with theraband exercises to prevent UT overactivation, not fully independent with best performance. 03/02/22: patient independent but poor compliance due to other medical issues, fall LTG Duration 05/02/22 Three Impairment postural impairment Impairment forward head, rounded shoulders Scaler Goal (LTG) Patient will demonstrate improvement in postural alignment to allow for more normal shoulder mechanics and function 12/16/21: goal progress 03/02/22: incrased guarding noted today LTG Duration 05/02/22 Two Impairment pain left shoulder as high as 9/10 Senior Care Goal (LTG) Decrease pain to no greater than 2/10 left shoulder with all usual activities 12/16/21: reports pain 0-9/10, less frequently 9/10 especially in 1-2 days after PT 03/02/22: pain as high as 8/10, variable LTG Duration 05/02/22 One Impairment Quickdash UE disability index score 45% Impairment Impairment in functional use of her left UE including reaching overhead, behind her back, out to side Senior Care Goal (LTG) Improve Quickdash score to no greater than 15% as measure of improved functional use of her left shoulder with her reporting improved sleep and the ability to reach overhead, behind her back, and out to side for all her usual activities. 12/16/21: Quickdash score decreased to 32%, good progress 03/02/22: Quickdash score increased to 52% since last seen 01/10/22 and recent fall LTG Duration 05/02/22 Assessment Summary Assessment No change in pain with use of kinesiotape. Improved compliance to HEP and attention to postural correction. Continues to have impingement symptoms, anterior shoulder pain. Physical Therapy Plan Frequency and Duration Frequency of Treatment 2x/Week Duration of Treatment 8 weeks Plan of Care Start Date 03/02/22 Plan of Care End Date 05/02/22 Therapeutic Interventions Therapeutic Interventions Aquatic Therapy,Home Exercise Program,Joint Mobilizations, Manual Therapy,Neuromuscular Re-education,Patient/Caregiver Education,Self-Care/Home Management,Sensory Integration ,Soft Tissue Mobilization, Taping,Therapeutic Activities, Therapeutic Exercises Modalities Cold Pack/Ice Massage,Electric Stimulation,Hot Packs, Infrared Therapy,Iontophoresis ,Ultrasound Next Visit Focus/Plan Next Note Type Treatment Note Next Visit Plan Progress shoulder strengrhening and stabilization as tolerated Continue manual techniques for improving shoulder kinematics , improved positioning of humerus in GH joint, decreased soft tissue tightness. Patient to have MRI at [facility] on Monday
--- NOTE | 2022-04-11 16:21 | PT.OTN ---
Current Diagnoses Pain in left shoulder (04/11/22) Strain of unspecified muscle, fascia and tendon at shoulder and upper arm level, left arm, initial encounter (04/11/22) Physical Therapy Treatment Note PT-OP-A Visit Information Start: 09/21/21 17:43 Freq: Status: Active Protocol: Document 04/11/22 08:14 SAK (Rec: 04/11/22 09:02 [facility] [id number]) Out-Patient Physical Therapy Visit Information Visit Information Visit Type Treatment Note Visit Start Time 08:15 Visit Stop Time 09:10 Total Visit Minutes 55 Visit Number 20 Evaluation Information Evaluation Date 09/22/21 Precautions Precautions history lumbar fusions L3-S1 PT-OP-B Current Condition Start: 09/21/21 17:43 Freq: Status: Active Protocol: Document 09/22/21 09:03 SAK (Rec: 09/22/21 09:46 [facility] [id number]) Current Condition History of Current Condition Onset Date 1+ year, no known cause, denies fall Current Complaints left shoulder pain, patient left handed History of Current Condition Pain with use of left shoulder , limited ability to sleep, can't do her hair, reach overhead. Hasn't tried ice or heat or magna wave machine ( has own). No other treatment. Has clicking in her shoulder with reaching. Prior Treatments and Tests no imaging. Treatment Goals Patient/Caregiver Goals minimize pain, reach overhead, behind back Prior Functional Status Baseline Function- ADL's Independent Baseline Function- Mobility Independent Current Functional Impairments (Reported) Functional Limitations- ADL's can't reach overhead, out to side, or behind her back Functional Limitations- Recreation/ unable Hobbies Personal Factors Other Personal Factors That May Effect none, no pacemaker. Therapy/Recovery PT-OP-C Subjective Start: 09/21/21 17:43 Freq: Status: Active Protocol: Document 04/11/22 08:14 SAK (Rec: 04/11/22 09:02 [facility] [id number]) OP-PT Subjective Patient Comments Patient Comments Had MRI yesterday, no results yet today. Encouraged patient to contact her MD through portal as doesn't have appointment scheduled until next month. No change in shoulder pain today, though decreased after last session for several hours. PT-OP-E Functional Tests Start: 09/21/21 17:43 Freq: Status: Active Protocol: Document 09/23/21 16:49 [facility] (Rec: 09/23/21 17:12 [facility] [id number]) Functional Tests Apley's Scratch Test Action 1- Left anterior chest Action 1- Right posterior shoulder Action 2- Left lateral neck Action 2- Right T2 Action 3- Left L5 Action 3- Right T12 PT-OP-J Posture/Palpation/Skin Start: 09/21/21 17:43 Freq: Status: Active Protocol: Document 09/23/21 16:49 [facility] (Rec: 09/23/21 17:12 [facility] [id number]) Posture Evaluation Position Sitting Head/C-Spine Posture Forward Head T-Spine Posture Increased Kyphosis Shoulder Posture (L) Rounded,(R) Rounded,(L) Forward,(R) Forward Scapula Posture (L) Protracted,(R) Protracted Arm Posture (L) Internally Rotated,(R) Internally Rotated Palpation Assessment Location anterior GH Palpation Findings Tenderness PT-OP-K Range of Motion Start: 09/21/21 17:43 Freq: Status: Active Protocol: Document 09/23/21 16:49 [facility] (Rec: 09/23/21 17:12 [facility] [id number]) Cervical Spine Range of Motion Cervical Spine Active Comments mod decrease all motions Shoulder Goniometric Range of Motion Shoulder Left Shoulder ROM WFL No Flexion 60 Extension 5 Abduction 105 Horizontal Adduction 20 External Rotation at 45 degrees 60 Abduction Internal Rotation Behind Back (text) L5 Right Shoulder ROM WFL Yes PT-OP-L Special Tests Start: 09/21/21 17:43 Freq: Status: Active Protocol: Document 09/23/21 16:49 [facility] (Rec: 09/23/21 17:12 [facility] [id number]) Special Tests Shoulder Special Tests Grind Labrum Test Results positive left Empty Can Test Results negative Passive ER Rotator Cuff Test Results negative Elevation Impingement Test Results positive left PT-OP-M Strength Start: 09/21/21 17:43 Freq: Status: Active Protocol: Document 09/23/21 16:49 [facility] (Rec: 09/23/21 17:12 [facility] [id number]) Shoulder Strength Shoulder Manual Muscle Testing Left Flexion 3- Fair- Extension 3+ Fair+ Abduction (C5) 3- Fair- Adduction 3+ Fair+ External Rotation 3+ Fair+ Comments limited by pain Right Flexion 5 Normal Extension 5 Normal Abduction (C5) 5 Normal External Rotation 4+ Good+ Internal Rotation 4+ Good+ Elbow/Forearm Strength Elbow and Forearm Manual Muscle Testing Left Flexion (C6) 4+ Good+ Extension (C7) 4+ Good+ Comments guarded but good strength without pain Right Flexion (C6) 5 Normal Extension (C7) 5 Normal PT-OP-Q Treatments Start: 09/21/21 17:43 Freq: Status: Active Protocol: Document 04/11/22 08:14 [facility] (Rec: 04/11/22 09:02 [facility] [id number]) Therapeutic Exercises Supine Exercises scapular squeeze Side bilateral Reps/Minutes 5x isometric I Supine Exercise Name HEP shld ER Supine Exercise Name HEP AAROM shld wand Supine Exercise Name HEP Sidelying Exercises open book Reps/Minutes 5x Comments pt. c/o some painful clicking, ROM limited shoulder abd Reps/Minutes 10x Comments with manual upward rotation of scapula, mod assist shoulder flex Reps/Minutes 10x Comments with manual upward rotation of scapula, mod assist shoulder ER Reps/Minutes 10x Comments verbal and tactile cues Sitting Exercises pulleys Sitting Exercise Name flex, scaption Reps/Minutes 10x Comments improved tolerance today espescially with shoulder thumb up positioning Standing Exercises shoulder ext Resistance L1 TB Reps/Minutes 10x Comments manual cues for scap retr, UT inhib row Equipment Used L1 TB Reps/Minutes 10x Comments manual cues for scap retr, UT inhib shoulder ER Equipment Used L1 TB Reps/Minutes 10x Comments manual cues for scap retr, UT inhib Manual Therapy Treatment Soft Tissue Mobilization subscap Body Location trigger points Mobilization Type Sustained Pressure,Trigger Point Release,Other Intensity/Depth Deep Body Position Hooklying Comments also pin and stretch with shoulder flex 3 Body Location biceps Mobilization Type Cross-Friction,Myofascial Release Intensity/Depth mod 2 Body Location L proximal bicep, pec major, pec minor Mobilization Type Cross-Friction,Myofascial Release,Strumming,Sustained Pressure Intensity/Depth Deep Body Position Hooklying 1 Body Location L UT Mobilization Type Myofascial Release,Strumming Intensity/Depth Moderate Body Position Hooklying Joint Mobilizations scapula Joint post and inf Grade II Body Position Sidelying 1 Joint L GH mob Direction posterior, inferior glide Grade II Body Position Hooklying Comments some pain today Self-Care/Home Management Treatment Education Other Education imortance of postural correction, increased compliance to [facility] PT-OP-R Modalities Start: 09/21/21 17:43 Freq: Status: Active Protocol: Document 04/11/22 08:14 [facility] (Rec: 04/11/22 09:02 SAK [id number]) Hot Pack/Cold Pack Treatment Hot Pack Location left shoulder Patient Position Hooklying Treatment Duration (minutes) 15 Patient Tolerance Good Ultrasound Therapy Treatment Left Anterior Shoulder Treatment Duration (minutes) 8 Patient Position Supine Coupling Medium Ultrasound Gel Frequency Setting (mHz) 1 Mode Setting Continuous Duty Cycle 100% Intensity Setting (w/cm2) 1.2 Comments good feedback response. PT-OP-T Assessment and Plan Start: 09/21/21 17:43 Freq: Status: Active Protocol: Document 04/11/22 08:14 [facility] (Rec: 04/11/22 09:02 SAK [id number]) Physical Therapy Assessment Goals Four Impairment no HEP Nursing Home Goal (LTG) Patient will be independent and compliant with progressive HEP for purposes of left shoulder ROm and strengthening 12/16/21: progress with HEP compliance. She benefits from verbal and manual cues especially with theraband exercises to prevent UT overactivation, not fully independent with best performance. 03/02/22: patient independent but poor compliance due to other medical issues, fall LTG Duration 05/02/22 Three Impairment postural impairment Impairment forward head, rounded shoulders Mid Level Practitioner Goal (LTG) Patient will demonstrate improvement in postural alignment to allow for more normal shoulder mechanics and function 12/16/21: goal progress 03/02/22: incrased guarding noted today LTG Duration 05/02/22 Two Impairment pain left shoulder as high as 9/10 Mid Level Practitioner Goal (LTG) Decrease pain to no greater than 2/10 left shoulder with all usual activities 12/16/21: reports pain 0-9/10, less frequently 9/10 especially in 1-2 days after PT 03/02/22: pain as high as 8/10, variable LTG Duration 05/02/22 One Impairment Quickdash UE disability index score 45% Impairment Impairment in functional use of her left UE including reaching overhead, behind her back, out to side Mid Level Practitioner Goal (LTG) Improve Quickdash score to no greater than 15% as measure of improved functional use of her left shoulder with her reporting improved sleep and the ability to reach overhead, behind her back, and out to side for all her usual activities. 12/16/21: Quickdash score decreased to 32%, good progress 03/02/22: Quickdash score increased to 52% since last seen 01/10/22 and recent fall LTG Duration 05/02/22 Assessment Summary Assessment Patient reports decreased pain after PT but gradually increases over the next few hours. Tolerated MRI well,no results yet. Low compliance to HEP. Physical Therapy Plan Frequency and Duration Frequency of Treatment 2x/Week Duration of Treatment 8 weeks Plan of Care Start Date 03/02/22 Plan of Care End Date 05/02/22 Therapeutic Interventions Therapeutic Interventions Aquatic Therapy,Home Exercise Program,Joint Mobilizations, Manual Therapy,Neuromuscular Re-education,Patient/Caregiver Education,Self-Care/Home Management,Sensory Integration ,Soft Tissue Mobilization, Taping,Therapeutic Activities, Therapeutic Exercises Modalities Cold Pack/Ice Massage,Electric Stimulation,Hot Packs, Infrared Therapy,Iontophoresis ,Ultrasound Next Visit Focus/Plan Next Note Type Treatment Note Next Visit Plan Patient to email doctor thru patient portal regarding MRI results (done at [facility]). Discuss results, continue PT pending any further recommendations from physician.
--- NOTE | 2022-04-13 10:19 | PT.OTN ---
Current Diagnoses Pain in left shoulder (04/13/22) Strain of unspecified muscle, fascia and tendon at shoulder and upper arm level, left arm, initial encounter (04/13/22) Physical Therapy Treatment Note PT-OP-A Visit Information Start: 09/21/21 17:43 Freq: Status: Active Protocol: Document 04/13/22 08:10 SAK (Rec: 04/13/22 09:02 [facility] [id number]) Out-Patient Physical Therapy Visit Information Visit Information Visit Type Treatment Note Visit Start Time 08:15 Visit Stop Time 09:10 Total Visit Minutes 55 Visit Number 21 Evaluation Information Evaluation Date 09/22/21 Precautions Precautions history lumbar fusions L3-S1 PT-OP-B Current Condition Start: 09/21/21 17:43 Freq: Status: Active Protocol: Document 09/22/21 09:03 SAK (Rec: 09/22/21 09:46 SAK [id number]) Current Condition History of Current Condition Onset Date 1+ year, no known cause, denies fall Current Complaints left shoulder pain, patient left handed History of Current Condition Pain with use of left shoulder , limited ability to sleep, can't do her hair, reach overhead. Hasn't tried ice or heat or magna wave machine ( has own). No other treatment. Has clicking in her shoulder with reaching. Prior Treatments and Tests no imaging. Treatment Goals Patient/Caregiver Goals minimize pain, reach overhead, behind back Prior Functional Status Baseline Function- ADL's Independent Baseline Function- Mobility Independent Current Functional Impairments (Reported) Functional Limitations- ADL's can't reach overhead, out to side, or behind her back Functional Limitations- Recreation/ unable Hobbies Personal Factors Other Personal Factors That May Effect none, no pacemaker. Therapy/Recovery PT-OP-C Subjective Start: 09/21/21 17:43 Freq: Status: Active Protocol: Document 04/13/22 08:10 SAK (Rec: 04/13/22 09:02 [facility] [id number]) OP-PT Subjective Patient Comments Patient Comments MRI showed tendinosis of supraspinatus, infraspinatus, subscap, long head of bicep. Arthritis in AC and GH joints and anterior labral tear. Plans to schedule appointment with orthopedist for consult. Reports minimal exercises it was such a day. PT-OP-E Functional Tests Start: 09/21/21 17:43 Freq: Status: Active Protocol: Document 09/23/21 16:49 [facility] (Rec: 09/23/21 17:12 [facility] [id number]) Functional Tests Apley's Scratch Test Action 1- Left anterior chest Action 1- Right posterior shoulder Action 2- Left lateral neck Action 2- Right T2 Action 3- Left L5 Action 3- Right T12 PT-OP-J Posture/Palpation/Skin Start: 09/21/21 17:43 Freq: Status: Active Protocol: Document 09/23/21 16:49 [facility] (Rec: 09/23/21 17:12 [facility] [id number]) Posture Evaluation Position Sitting Head/C-Spine Posture Forward Head T-Spine Posture Increased Kyphosis Shoulder Posture (L) Rounded,(R) Rounded,(L) Forward,(R) Forward Scapula Posture (L) Protracted,(R) Protracted Arm Posture (L) Internally Rotated,(R) Internally Rotated Palpation Assessment Location anterior GH Palpation Findings Tenderness PT-OP-K Range of Motion Start: 09/21/21 17:43 Freq: Status: Active Protocol: Document 09/23/21 16:49 [facility] (Rec: 09/23/21 17:12 [facility] [id number]) Cervical Spine Range of Motion Cervical Spine Active Comments mod decrease all motions Shoulder Goniometric Range of Motion Shoulder Left Shoulder ROM WFL No Flexion 60 Extension 5 Abduction 105 Horizontal Adduction 20 External Rotation at 45 degrees 60 Abduction Internal Rotation Behind Back (text) L5 Right Shoulder ROM WFL Yes PT-OP-L Special Tests Start: 09/21/21 17:43 Freq: Status: Active Protocol: Document 09/23/21 16:49 [facility] (Rec: 09/23/21 17:12 [facility] [id number]) Special Tests Shoulder Special Tests Grind Labrum Test Results positive left Empty Can Test Results negative Passive ER Rotator Cuff Test Results negative Elevation Impingement Test Results positive left PT-OP-M Strength Start: 09/21/21 17:43 Freq: Status: Active Protocol: Document 09/23/21 16:49 [facility] (Rec: 09/23/21 17:12 [facility] [id number]) Shoulder Strength Shoulder Manual Muscle Testing Left Flexion 3- Fair- Extension 3+ Fair+ Abduction (C5) 3- Fair- Adduction 3+ Fair+ External Rotation 3+ Fair+ Comments limited by pain Right Flexion 5 Normal Extension 5 Normal Abduction (C5) 5 Normal External Rotation 4+ Good+ Internal Rotation 4+ Good+ Elbow/Forearm Strength Elbow and Forearm Manual Muscle Testing Left Flexion (C6) 4+ Good+ Extension (C7) 4+ Good+ Comments guarded but good strength without pain Right Flexion (C6) 5 Normal Extension (C7) 5 Normal PT-OP-Q Treatments Start: 09/21/21 17:43 Freq: Status: Active Protocol: Document 04/13/22 08:10 [facility] (Rec: 04/13/22 09:02 [facility] [id number]) Therapeutic Exercises Supine Exercises scapular squeeze Supine Exercise Name HEP isometric I Supine Exercise Name HEP shld ER Supine Exercise Name HEP AAROM shld wand Supine Exercise Name HEP Sidelying Exercises open book Sidelying Exercise Name HEP shoulder abd Sidelying Exercise Name HEP shoulder flex Sidelying Exercise Name HEP shoulder ER Sidelying Exercise Name HEP Sitting Exercises UT stretch Reps/Minutes 2x30 pulleys Sitting Exercise Name flex, scaption Reps/Minutes 10x Comments improved tolerance today espescially with shoulder thumb up positioning trunk rotation Sitting Exercise Name HEP Standing Exercises shoulder ext Resistance L1 TB Reps/Minutes 10x Comments manual cues for scap retr, UT inhib IR/ER Reps/Minutes 10x Comments elbows straight, arms at sides row Equipment Used L1 TB Reps/Minutes 10x Comments manual cues for scap retr, UT inhib shoulder ER Standing Exercise Name added shoulder IR Equipment Used L1 TB Reps/Minutes 10x Comments manual cues for scap retr, UT inhib Manual Therapy Treatment Soft Tissue Mobilization subscap Body Location trigger points Mobilization Type Sustained Pressure,Trigger Point Release,Other Intensity/Depth Deep Body Position Hooklying Comments also pin and stretch with shoulder flex 3 Body Location biceps Mobilization Type Cross-Friction,Myofascial Release Intensity/Depth mod 2 Body Location L proximal bicep, pec major, pec minor Mobilization Type Cross-Friction,Myofascial Release,Strumming,Sustained Pressure Intensity/Depth Deep Body Position Hooklying Joint Mobilizations 1 Joint L GH mob Direction posterior, inferior glide Grade II Body Position Hooklying Comments some pain today Self-Care/Home Management Treatment Education Other Education discussed results of MRI, explaining pathology and importance of consult with orthopedist. Educated further on imortance of consistent performance of HEP for support of joint and ROM. PT-OP-R Modalities Start: 09/21/21 17:43 Freq: Status: Active Protocol: Document 04/13/22 08:10 [facility] (Rec: 04/13/22 09:02 [facility] [id number]) Hot Pack/Cold Pack Treatment Hot Pack Location left shoulder (2 packs) Patient Position Hooklying Treatment Duration (minutes) 15 Patient Tolerance Good Comments one in subscap reg, one on top of shoulder with strap Ultrasound Therapy Treatment Left Anterior Shoulder Treatment Duration (minutes) 8 Patient Position Supine Coupling Medium Ultrasound Gel Frequency Setting (mHz) 1 Mode Setting Continuous Duty Cycle 100% Intensity Setting (w/cm2) 1.2 Comments good feedback response. PT-OP-T Assessment and Plan Start: 09/21/21 17:43 Freq: Status: Active Protocol: Document 04/13/22 08:10 [facility] (Rec: 04/13/22 09:02 [facility] [id number]) Physical Therapy Assessment Goals Four Impairment no HEP Senior Genetic Counselor Goal (LTG) Patient will be independent and compliant with progressive HEP for purposes of left shoulder ROm and strengthening 12/16/21: progress with HEP compliance. She benefits from verbal and manual cues especially with theraband exercises to prevent UT overactivation, not fully independent with best performance. 03/02/22: patient independent but poor compliance due to other medical issues, fall LTG Duration 05/02/22 Three Impairment postural impairment Impairment forward head, rounded shoulders Detention Goal (LTG) Patient will demonstrate improvement in postural alignment to allow for more normal shoulder mechanics and function 12/16/21: goal progress 03/02/22: incrased guarding noted today LTG Duration 05/02/22 Two Impairment pain left shoulder as high as 9/10 Senior Genetic Counselor Goal (LTG) Decrease pain to no greater than 2/10 left shoulder with all usual activities 12/16/21: reports pain 0-9/10, less frequently 9/10 especially in 1-2 days after PT 03/02/22: pain as high as 8/10, variable LTG Duration 05/02/22 One Impairment Quickdash UE disability index score 45% Impairment Impairment in functional use of her left UE including reaching overhead, behind her back, out to side Senior Genetic Counselor Goal (LTG) Improve Quickdash score to no greater than 15% as measure of improved functional use of her left shoulder with her reporting improved sleep and the ability to reach overhead, behind her back, and out to side for all her usual activities. 12/16/21: Quickdash score decreased to 32%, good progress 03/02/22: Quickdash score increased to 52% since last seen 01/10/22 and recent fall LTG Duration 05/02/22 Assessment Summary Assessment Significant pathology left shoulder as anticipated. Patient educated on pathology of shoulder per MRI results. Further emphasis on importance of HEP stressed, and encouraged consult with orthopedist. Patient demonstrated good understanding. Physical Therapy Plan Frequency and Duration Frequency of Treatment 2x/Week Duration of Treatment 8 weeks Plan of Care Start Date 03/02/22 Plan of Care End Date 05/02/22 Therapeutic Interventions Therapeutic Interventions Aquatic Therapy,Home Exercise Program,Joint Mobilizations, Manual Therapy,Neuromuscular Re-education,Patient/Caregiver Education,Self-Care/Home Management,Sensory Integration ,Soft Tissue Mobilization, Taping,Therapeutic Activities, Therapeutic Exercises Modalities Cold Pack/Ice Massage,Electric Stimulation,Hot Packs, Infrared Therapy,Iontophoresis ,Ultrasound Next Visit Focus/Plan Next Note Type Treatment Note Next Visit Plan Patient to schedule consult with orthopedist. Further emphasis on ther ex if patient not performing HEP, otherwise PT will focus on manual techniques and modalities.
--- NOTE | 2022-05-17 14:59 | PT.OTRE ---
Current Diagnoses Pain in left shoulder (05/17/22) Strain of unspecified muscle, fascia and tendon at shoulder and upper arm level, left arm, initial encounter (05/17/22) Past Medical History (Last Reviewed 05/11/22 @ 13:36 by Andrea Lunsford MD) Asthma Cataract Chronic back pain CTS (carpal tunnel syndrome) JOHNSON (dyspnea on exertion) Essential hypertension (04/25/17) Greater trochanteric bursitis of left hip Hypercalcemia Hyperlipidemia Hyperparathyroidism Hypertension Left hamstring muscle strain Measles Obesity Osteoarthritis Strain of adductor nando muscle Strain of right psoas muscle Tachycardia determined by examination of pulse Varicose veins of left lower extremity Surgical History (Last Reviewed 05/11/22 @ 13:36 by Andrea Lunsford MD) Anesthesia H/O colonoscopy with polypectomy (~10/2020) History of knee replacement (2016) History of spinal fusion (06/2009) History of spinal fusion (2011) Status post parathyroidectomy (2015) Status post tonsillectomy and adenoidectomy (1947) Visit Care Team Role Provider Type Michelle Mcgarry MD Referring Provider Physician Specialty: Family Practice Address: [address] [place] [address] Phone: Fax: Email: [email or web address] Provider Physician Specialty: [facility] Address: [address] [place] [address], [address] [place] [address], [facility] Email: [email or web address] Deion Ordoñez MD Attending Provider Physician Primary Care Provider Specialty: Internal Medicine Pediatrics Address: [address] [place] [address] Phone: Fax: Email: [email or web address] Physical Therapy Re-Evaluation PT-OP-A Visit Information Start: 09/21/21 17:43 Freq: Status: Active Protocol: Document 05/17/22 13:44 RALF (Rec: 05/17/22 14:58 [facility]ALF [id number]) Out-Patient Physical Therapy Visit Information Visit Information Visit Type Treatment Note Visit Start Time 01:34 Visit Number 22 Evaluation Information Evaluation Date 09/22/21 Precautions Precautions history lumbar fusions L3-S1 PT-OP-B Current Condition Start: 09/21/21 17:43 Freq: Status: Active Protocol: Document 09/22/21 09:03 [facility] (Rec: 09/22/21 09:46 [facility] [id number]) Current Condition History of Current Condition Onset Date 1+ year, no known cause, denies fall Current Complaints left shoulder pain, patient left handed History of Current Condition Pain with use of left shoulder , limited ability to sleep, can't do her hair, reach overhead. Hasn't tried ice or heat or magna wave machine ( has own). No other treatment. Has clicking in her shoulder with reaching. Prior Treatments and Tests no imaging. Treatment Goals Patient/Caregiver Goals minimize pain, reach overhead, behind back Prior Functional Status Baseline Function- ADL's Independent Baseline Function- Mobility Independent Current Functional Impairments (Reported) Functional Limitations- ADL's can't reach overhead, out to side, or behind her back Functional Limitations- Recreation/ unable Hobbies Personal Factors Other Personal Factors That May Effect none, no pacemaker. Therapy/Recovery PT-OP-C Subjective Start: 09/21/21 17:43 Freq: Status: Active Protocol: Document 05/17/22 13:44 [facility] (Rec: 05/17/22 14:58 [facility] [id number]) OP-PT Subjective Patient Comments Patient Comments Having total shoulder replacement 07/05/[address] Burgos. Was given exercises for pre-op, hasn't done yet because she has some questions about them. PT-OP-E Functional Tests Start: 09/21/21 17:43 Freq: Status: Active Protocol: Document 09/23/21 16:49 [facility] (Rec: 09/23/21 17:12 [facility] [id number]) Functional Tests Apley's Scratch Test Action 1: The subject is instructed to touch the opposite shoulder with his/her hand. This motion checks Glenohumeral adduction, internal rotation , horizontal adduction and scapular protraction Action 2: The subject is instructed to place his/her arm overhead and reach behind the neck to touch his/her upper back. This motion checks Glenohumeral abduction, external rotation and scapular upward rotation and elevation. Action 3: The subject puts his/her hand on the lower back and reaches upward as far as possible. This motion checks glenohumeral adduction, internal rotation and scapular retraction with downward rotation Action 1- Left anterior chest Action 1- Right posterior shoulder Action 2- Left lateral neck Action 2- Right T2 Action 3- Left L5 Action 3- Right T12 PT-OP-J Posture/Palpation/Skin Start: 09/21/21 17:43 Freq: Status: Active Protocol: Document 09/23/21 16:49 [facility] (Rec: 09/23/21 17:12 [facility] [id number]) Posture Evaluation Position Sitting Head/C-Spine Posture Forward Head T-Spine Posture Increased Kyphosis Shoulder Posture (L) Rounded,(R) Rounded,(L) Forward,(R) Forward Scapula Posture (L) Protracted,(R) Protracted Arm Posture (L) Internally Rotated,(R) Internally Rotated Palpation Assessment Location anterior GH Palpation Findings Tenderness PT-OP-K Range of Motion Start: 09/21/21 17:43 Freq: Status: Active Protocol: Document 09/23/21 16:49 [facility] (Rec: 09/23/21 17:12 [facility] [id number]) Cervical Spine Range of Motion Cervical Spine Active Comments mod decrease all motions Shoulder Goniometric Range of Motion Shoulder Measured in Degrees Left Shoulder ROM WFL No Flexion 60 Extension 5 Abduction 105 Horizontal Adduction 20 External Rotation at 45 degrees 60 Abduction Internal Rotation Behind Back (text) L5 Right Shoulder ROM WFL Yes PT-OP-L Special Tests Start: 09/21/21 17:43 Freq: Status: Active Protocol: Document 09/23/21 16:49 [facility] (Rec: 09/23/21 17:12 [facility] [id number]) Special Tests Shoulder Special Tests Grind Labrum Test Results positive left Empty Can Test Results negative Passive ER Rotator Cuff Test Results negative Elevation Impingement Test Results positive left PT-OP-M Strength Start: 09/21/21 17:43 Freq: Status: Active Protocol: Document 09/23/21 16:49 [facility] (Rec: 09/23/21 17:12 [facility] [id number]) Shoulder Strength Shoulder Manual Muscle Testing Left Flexion 3- Fair- Extension 3+ Fair+ Abduction (C5) 3- Fair- Adduction 3+ Fair+ External Rotation 3+ Fair+ Comments limited by pain Right Flexion 5 Normal Extension 5 Normal Abduction (C5) 5 Normal External Rotation 4+ Good+ Internal Rotation 4+ Good+ Elbow/Forearm Strength Elbow and Forearm Manual Muscle Testing Left Flexion (C6) 4+ Good+ Extension (C7) 4+ Good+ Comments guarded but good strength without pain Right Flexion (C6) 5 Normal Extension (C7) 5 Normal PT-OP-Q Treatments Start: 09/21/21 17:43 Freq: Status: Active Protocol: Document 05/17/22 13:44 [facility] (Rec: 05/17/22 14:58 [facility] [id number]) Therapeutic Exercises Sidelying Exercises sleeper stretch Reps/Minutes 2x30 Standing Exercises ER with UE abd 90 Reps/Minutes 5x Comments unable to do with resistance passive ER Equipment Used wand Reps/Minutes 2x30 passive internal rotation Equipment Used wand Reps/Minutes 2x30 pendulum Standing Exercise Name fwd/bck, side, circles Reps/Minutes 5x ea posterior capsule stretch Reps/Minutes 2x30 IR/ER Resistance L1 TB Reps/Minutes 10x row Equipment Used L1 TB Reps/Minutes 10x Comments manual cues for scap retr, UT inhib Manual Therapy Treatment Soft Tissue Mobilization 2 Body Location L proximal bicep, pec major, pec minor Mobilization Type Cross-Friction,Myofascial Release,Strumming,Sustained Pressure Intensity/Depth Deep Body Position Hooklying 1 Body Location L UT Mobilization Type Myofascial Release,Strumming Intensity/Depth Moderate Body Position Hooklying PT-OP-R Modalities Start: 09/21/21 17:43 Freq: Status: Active Protocol: Document 05/17/22 13:44 [facility] (Rec: 05/17/22 14:58 [facility] [id number]) Hot Pack/Cold Pack Treatment Hot Pack Location left shoulder (2 packs) Patient Position Hooklying Treatment Duration (minutes) 15 Patient Tolerance Good Comments one in subscap reg, one on top of shoulder with strap Ultrasound Therapy Treatment Left Anterior Shoulder Treatment Duration (minutes) 8 Patient Position Supine Coupling Medium Ultrasound Gel Frequency Setting (mHz) 1 Mode Setting Continuous Duty Cycle 100% Intensity Setting (w/cm2) 1.2 Comments good feedback response. PT-OP-T Assessment and Plan Start: 09/21/21 17:43 Freq: Status: Active Protocol: Document 05/17/22 13:44 [facility] (Rec: 05/17/22 14:58 [facility] [id number]) Physical Therapy Assessment Goals Four Impairment no HEP Senior Living Goal (LTG) Patient will be independent and compliant with progressive HEP for purposes of left shoulder ROm and strengthening 05/17/22:got HEP from orthopedic surgeon, needs instruction for proper performance 12/16/21: progress with HEP compliance. She benefits from verbal and manual cues especially with theraband exercises to prevent UT overactivation, not fully independent with best performance. 03/02/22: patient independent but poor compliance due to other medical issues, fall 05/17/22 LTG Duration 05/23/22 Three Impairment postural impairment Impairment forward head, rounded shoulders Cash Register Operator Goal (LTG) Patient will demonstrate improvement in postural alignment to allow for more normal shoulder mechanics and function 05/17/22: goal mostly achieved 12/16/21: goal progress 03/02/22: incrased guarding noted today LTG Duration 05/23/22 Two Impairment pain left shoulder as high as 9/10 Senior Living Goal (LTG) Decrease pain to no greater than 2/10 left shoulder with all usual activities 12/16/21: reports pain 0-9/10, less frequently 9/10 especially in 1-2 days after PT 03/02/22: pain as high as 8/10, variable 05/17/22: no progress, patient to have surgery LTG Duration goal abandoned One Impairment Quickdash UE disability index score 45% Impairment Impairment in functional use of her left UE including reaching overhead, behind her back, out to side Senior Living Goal (LTG) Improve Quickdash score to no greater than 15% as measure of improved functional use of her left shoulder with her reporting improved sleep and the ability to reach overhead, behind her back, and out to side for all her usual activities. 12/16/21: Quickdash score decreased to 32%, good progress 03/02/22: Quickdash score increased to 52% since last seen 01/10/22 and recent fall 05/17/22: not able to be achieved, patient to have surgery LTG Duration goal abandoned Assessment Summary Assessment Patient returns to PT after not being seen x 1 month. Now has total shoulder replacement scheduled with Dr. Burgos in June. Was issued pre-op HEP but needs review and instruction for safe performance. REcommend 1 further visit after today, then no further PT until after surgery. Physical Therapy Plan Frequency and Duration Frequency of Treatment 2x/Week Duration of treatment (weeks) 1 Plan of Care Start Date 05/17/22 Plan of Care End Date 05/23/22
--- NOTE | 2022-05-17 15:00 | PT.OPPOC ---
Physical, Occupational & Speech Therapy At [facility] Current Diagnoses Pain in left shoulder (05/17/22) Strain of unspecified muscle, fascia and tendon at shoulder and upper arm level, left arm, initial encounter (05/17/22) Visit Care Team Role Provider Type Michelle Mcgarry MD Referring Provider Physician Specialty: Family Practice Address: [address] [place] [address], [facility] Phone: Fax: Email: [email or web address] Family Provider Physician Specialty: Family Practice Address: [address] [place] [address], [address], [place], [address] Email: [email or web address] Deion Ordoñez MD Attending Provider Physician Primary Care Provider Specialty: Internal Medicine Pediatrics Address: [address] [place] [address], [facility] Phone: Fax: Email: [email or web address] Plan Of Care PT-OP-T Assessment and Plan Start: 09/21/21 17:43 Freq: Status: Active Protocol: Document 05/17/22 13:44 SAK (Rec: 05/17/22 14:58 SAK [id number]) Physical Therapy Assessment Goals Four Impairment no HEP Group Home Goal (LTG) Patient will be independent and compliant with progressive HEP for purposes of left shoulder ROm and strengthening 05/17/22:got HEP from orthopedic surgeon, needs instruction for proper performance 12/16/21: progress with HEP compliance. She benefits from verbal and manual cues especially with theraband exercises to prevent UT overactivation, not fully independent with best performance. 03/02/22: patient independent but poor compliance due to other medical issues, fall 05/17/22 LTG Duration 05/23/22 Three Impairment postural impairment Impairment forward head, rounded shoulders Group Fitness Instructor Goal (LTG) Patient will demonstrate improvement in postural alignment to allow for more normal shoulder mechanics and function 05/17/22: goal mostly achieved 12/16/21: goal progress 03/02/22: incrased guarding noted today LTG Duration 05/23/22 Two Impairment pain left shoulder as high as 9/10 Group Fitness Instructor Goal (LTG) Decrease pain to no greater than 2/10 left shoulder with all usual activities 12/16/21: reports pain 0-9/10, less frequently 9/10 especially in 1-2 days after PT 03/02/22: pain as high as 8/10, variable 05/17/22: no progress, patient to have surgery LTG Duration goal abandoned One Impairment Quickdash UE disability index score 45% Impairment Impairment in functional use of her left UE including reaching overhead, behind her back, out to side Group Home Goal (LTG) Improve Quickdash score to no greater than 15% as measure of improved functional use of her left shoulder with her reporting improved sleep and the ability to reach overhead, behind her back, and out to side for all her usual activities. 12/16/21: Quickdash score decreased to 32%, good progress 03/02/22: Quickdash score increased to 52% since last seen 01/10/22 and recent fall 05/17/22: not able to be achieved, patient to have surgery LTG Duration goal abandoned Assessment Summary Assessment Patient returns to PT after not being seen x 1 month. Now has total shoulder replacement scheduled with Dr. Burgos in June. Was issued pre-op HEP but needs review and instruction for safe performance. REcommend 1 further visit after today, then no further PT until after surgery. Physical Therapy Plan Frequency and Duration Frequency of Treatment 2x/Week Duration of treatment (weeks) 1 Plan of Care Start Date 05/17/22 Plan of Care End Date 05/23/22 Plan of Care Dates Plan of Care Start Date 05/17/22 Plan of Care End Date 05/23/22 Electronically Signed by: Martina Feng, PT 05/17/22 1500 If you are in agreement with this Plan of Care, please return a signed and dated copy. I have reviewed this Plan of Care and certify that the skilled therapy services above are required to meet the patient?s needs. Physician Signature Date Printed Name and Credentials Clinical Instructor Signature Printed Name and Credentials
--- NOTE | 2022-05-19 14:42 | PT.OTN ---
Current Diagnoses Pain in left shoulder (05/19/22) Strain of unspecified muscle, fascia and tendon at shoulder and upper arm level, left arm, initial encounter (05/19/22) Physical Therapy Treatment Note PT-OP-A Visit Information Start: 09/21/21 17:43 Freq: Status: Active Protocol: Document 05/19/22 13:55 SAK (Rec: 05/19/22 14:05 [facility] [id number]) Out-Patient Physical Therapy Visit Information Visit Information Visit Type Treatment Note Visit Start Time 01:49 Visit Stop Time 02:44 Total Visit Minutes 55 Visit Number 22 Evaluation Information Evaluation Date 09/22/21 Precautions Precautions history lumbar fusions L3-S1 PT-OP-B Current Condition Start: 09/21/21 17:43 Freq: Status: Active Protocol: Document 09/22/21 09:03 SAK (Rec: 09/22/21 09:46 [facility] [id number]) Current Condition History of Current Condition Onset Date 1+ year, no known cause, denies fall Current Complaints left shoulder pain, patient left handed History of Current Condition Pain with use of left shoulder , limited ability to sleep, can't do her hair, reach overhead. Hasn't tried ice or heat or magna wave machine ( has own). No other treatment. Has clicking in her shoulder with reaching. Prior Treatments and Tests no imaging. Treatment Goals Patient/Caregiver Goals minimize pain, reach overhead, behind back Prior Functional Status Baseline Function- ADL's Independent Baseline Function- Mobility Independent Current Functional Impairments (Reported) Functional Limitations- ADL's can't reach overhead, out to side, or behind her back Functional Limitations- Recreation/ unable Hobbies Personal Factors Other Personal Factors That May Effect none, no pacemaker. Therapy/Recovery PT-OP-C Subjective Start: 09/21/21 17:43 Freq: Status: Active Protocol: Document 05/19/22 13:55 SAK (Rec: 05/19/22 14:41 [facility] [id number]) OP-PT Subjective Patient Comments Patient Comments Didn't do exercises yet today, was doing fall cleaning. PT-OP-E Functional Tests Start: 09/21/21 17:43 Freq: Status: Active Protocol: Document 09/23/21 16:49 SAK (Rec: 09/23/21 17:12 SAK [id number]) Functional Tests Jeaney's Scratch Test Action 1- Left anterior chest Action 1- Right posterior shoulder Action 2- Left lateral neck Action 2- Right T2 Action 3- Left L5 Action 3- Right T12 PT-OP-J Posture/Palpation/Skin Start: 09/21/21 17:43 Freq: Status: Active Protocol: Document 09/23/21 16:49 [facility] (Rec: 09/23/21 17:12 [facility] [id number]) Posture Evaluation Position Sitting Head/C-Spine Posture Forward Head T-Spine Posture Increased Kyphosis Shoulder Posture (L) Rounded,(R) Rounded,(L) Forward,(R) Forward Scapula Posture (L) Protracted,(R) Protracted Arm Posture (L) Internally Rotated,(R) Internally Rotated Palpation Assessment Location anterior GH Palpation Findings Tenderness PT-OP-K Range of Motion Start: 09/21/21 17:43 Freq: Status: Active Protocol: Document 09/23/21 16:49 [facility] (Rec: 09/23/21 17:12 [facility] [id number]) Cervical Spine Range of Motion Cervical Spine Active Comments mod decrease all motions Shoulder Goniometric Range of Motion Shoulder Left Shoulder ROM WFL No Flexion 60 Extension 5 Abduction 105 Horizontal Adduction 20 External Rotation at 45 degrees 60 Abduction Internal Rotation Behind Back (text) L5 Right Shoulder ROM WFL Yes PT-OP-L Special Tests Start: 09/21/21 17:43 Freq: Status: Active Protocol: Document 09/23/21 16:49 [facility] (Rec: 09/23/21 17:12 [facility] [id number]) Special Tests Shoulder Special Tests Grind Labrum Test Results positive left Empty Can Test Results negative Passive ER Rotator Cuff Test Results negative Elevation Impingement Test Results positive left PT-OP-M Strength Start: 09/21/21 17:43 Freq: Status: Active Protocol: Document 09/23/21 16:49 [facility] (Rec: 09/23/21 17:12 [facility] [id number]) Shoulder Strength Shoulder Manual Muscle Testing Left Flexion 3- Fair- Extension 3+ Fair+ Abduction (C5) 3- Fair- Adduction 3+ Fair+ External Rotation 3+ Fair+ Comments limited by pain Right Flexion 5 Normal Extension 5 Normal Abduction (C5) 5 Normal External Rotation 4+ Good+ Internal Rotation 4+ Good+ Elbow/Forearm Strength Elbow and Forearm Manual Muscle Testing Left Flexion (C6) 4+ Good+ Extension (C7) 4+ Good+ Comments guarded but good strength without pain Right Flexion (C6) 5 Normal Extension (C7) 5 Normal PT-OP-Q Treatments Start: 09/21/21 17:43 Freq: Status: Active Protocol: Document 05/19/22 13:55 [facility] (Rec: 05/19/22 14:05 [facility] [id number]) Therapeutic Exercises Standing Exercises ER with UE abd 90 Reps/Minutes 10x Comments arm supported on table passive ER Equipment Used wand Reps/Minutes 2x30 passive internal rotation Equipment Used wand Reps/Minutes 2x30 pendulum Standing Exercise Name fwd/bck, side, circles Reps/Minutes 5x ea posterior capsule stretch Reps/Minutes 2x30 Manual Therapy Treatment Soft Tissue Mobilization 2 Body Location L proximal bicep, pec major, pec minor Mobilization Type Cross-Friction,Myofascial Release,Strumming,Sustained Pressure Intensity/Depth Deep Body Position Hooklying 1 Body Location L UT Mobilization Type Myofascial Release,Strumming Intensity/Depth Moderate Body Position Hooklying Self-Care/Home Management Treatment Education Patient Education Home Exercise Program,Posture PT-OP-R Modalities Start: 09/21/21 17:43 Freq: Status: Active Protocol: Document 05/19/22 13:55 [facility] (Rec: 05/19/22 14:05 [facility] [id number]) Hot Pack/Cold Pack Treatment Hot Pack Location left shoulder (2 packs) Patient Position Hooklying Treatment Duration (minutes) 15 Patient Tolerance Good Comments one in subscap reg, one on top of shoulder with strap Ultrasound Therapy Treatment Left Anterior Shoulder Treatment Duration (minutes) 8 Patient Position Supine Coupling Medium Ultrasound Gel Frequency Setting (mHz) 1 Mode Setting Continuous Duty Cycle 100% Intensity Setting (w/cm2) 1.2 Comments good feedback response. PT-OP-T Assessment and Plan Start: 09/21/21 17:43 Freq: Status: Active Protocol: Document 05/19/22 13:55 [facility] (Rec: 05/19/22 14:05 [facility] [id number]) Physical Therapy Assessment Goals Four Impairment no HEP Longterm Goal (LTG) Patient will be independent and compliant with progressive HEP for purposes of left shoulder ROm and strengthening 05/17/22:got HEP from orthopedic surgeon, needs instruction for proper performance 12/16/21: progress with HEP compliance. She benefits from verbal and manual cues especially with theraband exercises to prevent UT overactivation, not fully independent with best performance. 03/02/22: patient independent but poor compliance due to other medical issues, fall 05/17/22 LTG Duration 05/23/22 Three Impairment postural impairment Impairment forward head, rounded shoulders Sling Operator Goal (LTG) Patient will demonstrate improvement in postural alignment to allow for more normal shoulder mechanics and function 05/17/22: goal mostly achieved 12/16/21: goal progress 03/02/22: incrased guarding noted today LTG Duration 05/23/22 Two Impairment pain left shoulder as high as 9/10 Sling Operator Goal (LTG) Decrease pain to no greater than 2/10 left shoulder with all usual activities 12/16/21: reports pain 0-9/10, less frequently 9/10 especially in 1-2 days after PT 03/02/22: pain as high as 8/10, variable 05/17/22: no progress, patient to have surgery LTG Duration goal abandoned One Impairment Quickdash UE disability index score 45% Impairment Impairment in functional use of her left UE including reaching overhead, behind her back, out to side Sling Operator Goal (LTG) Improve Quickdash score to no greater than 15% as measure of improved functional use of her left shoulder with her reporting improved sleep and the ability to reach overhead, behind her back, and out to side for all her usual activities. 12/16/21: Quickdash score decreased to 32%, good progress 03/02/22: Quickdash score increased to 52% since last seen 01/10/22 and recent fall 05/17/22: not able to be achieved, patient to have surgery LTG Duration goal abandoned Assessment Summary Assessment Patient now independent with HEP, urged compliance for best preparation for surgery. Modified standing shoulder ER to supported on table. Will be discharged to self- management and with HEP until after surgery Physical Therapy Plan Discharge Physical Therapy Discharge Reasons Plateau in Progress Discharge Comments Patient having surgery, will see for PT post-op
== END 2022-05-20 08:25 | disposition home or self-care (01) ==
LOC: PHYS 13:45
PROVIDERS: Absent Provider Pediatrics; Family Provider Family Medicine; PCP Pediatrics; Referring Provider Family Medicine; Visit Provider Pediatrics
DX: S46.912A Strain of unspecified muscle, fascia and tendon at shoulder and upper arm level, left arm, initial encounter (principal); M25.512 Pain in left shoulder
CPT/HCPCS: 97010; 97032; 97035; 97110; 97140; 97162; 97535

== ENCOUNTER → 2022-08-24 09:15 | Outpatient (CLI) | payer MEDICARE, OTHER, SELFPAY ==
[2022-08-24 10:52] LABS: Blood Urea Nitrogen 11 mg/dL (7-17); Calcium 9.5 mg/dL (8.4-10.2); Carbon Dioxide 27 mmol/L (22-32); Chloride 103 mmol/L (98-107); Estimated Glomerular Filt Rate > 60 mL/min (>60); Glucose 136 mg/dL (80-110); HEMOLYSIS < 15 (0-50); Potassium 3.6 mmol/L (3.4-5.1); Sodium 140 mmol/L (137-145)
== END ==
PROVIDERS: Family Provider Family Medicine; PCP Family Medicine; Referring Provider Family Medicine; Visit Provider Family Medicine
DX: E11.618 Type 2 diabetes mellitus with other diabetic arthropathy (principal); E78.2 Mixed hyperlipidemia; I10 Essential (primary) hypertension
CPT/HCPCS: 36415; 80048; 83036

== ENCOUNTER 2022-11-22 08:45 | Outpatient (RCR) | payer MEDICARE, OTHER, SELFPAY ==
--- NOTE | 2022-07-19 17:11 | PT.OPPOC ---
Physical, Occupational & Speech Therapy At [facility] Current Diagnoses Primary osteoarthritis, left shoulder (07/19/22) Visit Care Team Role Provider Type Cecilia Brown DO Primary Care Provider Physician Specialty: Medical Address: [address] [place] [address], [address], [place], [address] Email: [email or web address] Isabell Fung DO Family Provider Physician Specialty: Family Practice Address: [address] [place] [address], [address], [place], [address] Email: [email or web address] Blaine Burgos DO Attending Provider Non-Staff Referring Provider Specialty: Orthopedic Surgery Address: [address] [place] [address], [address] Email: Plan Of Care PT-OP-T Assessment and Plan Start: 07/14/22 15:52 Freq: Status: Active Protocol: Document 07/19/22 08:12 RALF (Rec: 07/19/22 10:28 [facility] [id number]) Physical Therapy Assessment Rehab Potential Rehabilitation Potential Excellent Evaluation Complexity Number of Personal Factors/Comorbidities 1-2 Number of Body Systems Impaired 3 Clinical Presentation at Evaluation Evolving Impairments Impairments Activity Tolerance,ROM,Soft Tissue Mobility,Strength Goals Two Impairment Limited ROM and strength left UE Short Term Goal (STG) Patient to be instructed in progressive HEP to address ROM and strength deficits following post-op protocol from Dr. Burgos STG Duration 08/24/22 Service Officer Goal (LTG) Patient to be independent and compliant with HEP, following protocol as instructed and demonstrate functional ROM and strength left UE for all usual activities LTG Duration 10/17/22 Three Impairment Poor scar mobility Short Term Goal (STG) Initiate scar mobility when incision fully healed and instruct patient in self- massage STG Duration 08/24/22 Service Officer Goal (LTG) Normalize scar mobility for improved shoulder function LTG Duration 10/17/22 One Impairment Unable to functionally use left UE Impairment UE Quickdash disability questionnaire 54% Short Term Goal (STG) Decrease Quickdash score to no greater than 40% as measure of improved functional use of her shoulder. STG Duration 08/24/22 Senior Living Goal (LTG) Patient to regain full functional use of her left shoulder including ability to reach overhead and behind her back. Improve Quickdash score to no greater than 15% as measure of improved left shoulder function LTG Duration 10/17/22 Assessment Summary Assessment Patient presents with typical post-op limitations in ROM, strength, and function of left shoulder. She comes to PT wearing abduction sling and reports icing her shoulder 2x/ day and performing pendulum exercises as instructed after surgery. Incision appears to be healing well with no signs or symptoms of infection. We reviewed pendulum exercises, started PROM exercises per protocol. She will benefit from physical therapy to help her safely progress through her TSA protocol to regain full active use and function of her left shoulder per protocol. We discussed POC and she is in agreement. Her shoulder was iced following treatment and she was issued written handouts for HEP. Physical Therapy Plan Frequency and Duration Frequency of Treatment 2x/Week Duration of treatment (weeks) 12 Plan of Care Start Date 07/19/22 Plan of Care End Date 10/17/22 Therapeutic Interventions Therapeutic Interventions Home Exercise Program,Manual Therapy,Patient/Caregiver Education,Self-Care/Home Management,Soft Tissue Mobilization,Taping, Therapeutic Activities, Therapeutic Exercises Modalities Cold Pack/Ice Massage,Electric Stimulation,Hot Packs, Infrared Therapy,Iontophoresis ,Traction- Mechanical, Ultrasound Next Visit Focus/Plan Next Note Type Treatment Note Next Visit Plan Assess response to first session, review HEP, provide PROM left shoulder, scar mobilization, cold laser, and ice. Plan of Care Dates Plan of Care Start Date 07/19/22 Plan of Care End Date 10/17/22 Electronically Signed by: Martina Feng, PT 07/20/22 3348 If you are in agreement with this Plan of Care, please return a signed and dated copy. I have reviewed this Plan of Care and certify that the skilled therapy services above are required to meet the patient?s needs. Physician Signature Date Printed Name and Credentials Clinical Instructor Signature Printed Name and Credentials
--- NOTE | 2022-07-19 17:11 | PT.OIE ---
Current Diagnoses Primary osteoarthritis, left shoulder (07/19/22) Past Medical History (Last Reviewed 05/11/22 @ 13:36 by Andrea Lunsford MD) Asthma Cataract Chronic back pain CTS (carpal tunnel syndrome) JOHNSON (dyspnea on exertion) Essential hypertension (04/25/17) Greater trochanteric bursitis of left hip Hypercalcemia Hyperlipidemia Hyperparathyroidism Hypertension Left hamstring muscle strain Measles Obesity Osteoarthritis Strain of adductor nando muscle Strain of right psoas muscle Tachycardia determined by examination of pulse Varicose veins of left lower extremity Past Surgical History (Last Reviewed 05/11/22 @ 13:36 by Andrea Lunsford MD) Anesthesia H/O colonoscopy with polypectomy (~10/2020) History of knee replacement (2016) History of spinal fusion (06/2009) History of spinal fusion (2011) Status post parathyroidectomy (2015) Status post tonsillectomy and adenoidectomy (1947) Visit Care Team Role Provider Type Cecilia Brown DO Primary Care Provider Physician Specialty: Medical Address: [address] [place] [address], [id number] Email: [email or web address] Isabell Fung DO Family Provider Physician Specialty: Family Practice Address: [address] [place] [address], [id number] Email: [email or web address] Blaine Burgos DO Attending Provider Non-Staff Referring Provider Specialty: Orthopedic Surgery Address: [address] [place] [address], [id number] Email: Physical Therapy Initial Evaluation PT-OP-A Visit Information Start: 07/14/22 15:52 Freq: Status: Active Protocol: Document 07/19/22 08:12 [facility] (Rec: 07/19/22 09:04 [facility] [id number]) Out-Patient Physical Therapy Visit Information Visit Information Visit Type Initial Evaluation Visit Start Time 08:13 Visit Stop Time 09:11 Total Visit Minutes 58 Visit Number 1 Evaluation Information Evaluation Date 07/19/22 Precautions Precautions Per protocol in chart: sling x 6 weeks, in supine elbow must be supported with pillow to prevent shoulder extension, no lifting of objects with operative extremity, no IR/ dduction PT-OP-B Current Condition Start: 07/14/22 15:52 Freq: Status: Active Protocol: Document 07/19/22 08:12 [facility] (Rec: 07/19/22 09:04 [facility] [id number]) Current Condition History of Current Condition Onset Date 06/28/22 Current Complaints left reverse TSA History of Current Condition L reverse TSA. Has been in for adjustment of sling due to pain. States doctor told her she could do active abduction due to being able to hold your arm up. Surgery by Blaine Burgos. 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 Baseline Function- Recreation/Hobbies no limitations Current Functional Impairments (Reported) Functional Limitations- ADL's painful and limited Functional Limitations- Work/School limited ability to do volunteer work Functional Limitations- Recreation/ unable Hobbies PT-OP-C Subjective Start: 07/14/22 15:52 Freq: Status: Active Protocol: Document 07/19/22 08:12 [facility] (Rec: 07/19/22 10:28 [facility] [id number]) Patient Questionnaires Quick Dash- Upper Extremity Quick Dash UE Score 52% PT-OP-H Neuro Start: 07/14/22 15:52 Freq: Status: Active Protocol: Document 07/19/22 08:12 [facility] (Rec: 07/19/22 10:28 [facility] [id number]) Sensation Evaluation Gross Sensation Gross Sensation WNL PT-OP-J Posture/Palpation/Skin Start: 07/14/22 15:52 Freq: Status: Active Protocol: Document 07/19/22 08:12 [facility] (Rec: 07/19/22 10:28 [facility] [id number]) Posture Evaluation Position Sitting Head/C-Spine Posture Forward Head T-Spine Posture Increased Kyphosis Shoulder Posture (L) Rounded,(R) Rounded Scapula Posture (L) Protracted,(R) Protracted Arm Posture (L) Internally Rotated,(R) Internally Rotated Palpation Assessment Location left [place] Palpation Findings Soft Tissue Tightness,Muscle Guarding,Tenderness Skin Assessment Incisional Assessment Incision Appearance/Comments Healing well, no signs or symptoms of infection. Small scabbed areas still present PT-OP-K Range of Motion Start: 07/14/22 15:52 Freq: Status: Active Protocol: Document 07/19/22 08:12 [facility] (Rec: 07/19/22 10:28 [facility] [id number]) Cervical Spine Range of Motion Cervical Spine Active ROM Limitations Soft Tissue Tightness Comments WFL Shoulder Goniometric Range of Motion Shoulder Left Shoulder ROM WFL No Testing Position Supine Flexion 100 Extension 0 Abduction 75 External Rotation at 45 degrees 30 Abduction right Shoulder ROM WFL Yes Elbow/Forearm Range of Motion Elbow/Forearm ROM Limitations Comments WNL PT-OP-M Strength Start: 07/14/22 15:52 Freq: Status: Active Protocol: Document 07/19/22 08:12 [facility] (Rec: 07/19/22 10:28 [facility] [id number]) Shoulder Strength Shoulder Manual Muscle Testing Left Comments Not assessed due to recent surgery Right Comments WFL, no MMT PT-OP-Q Treatments Start: 07/14/22 15:52 Freq: Status: Active Protocol: Document 07/19/22 08:12 [facility] (Rec: 07/19/22 10:28 [facility] [id number]) Therapeutic Exercises Sitting Exercises table slide Side bilateral Reps/Minutes 5x Comments ache at end-range Standing Exercises deltoid isometrics Standing Exercise Name ant,mid,post Side left Resistance gentle Equipment Used pillow Reps/Minutes 5x submaximal Comments cues for pain-free intensity pendulum Side left Reps/Minutes 2 min Manual Therapy Treatment Soft Tissue Mobilization scar mob Mobilization Type Strumming Intensity/Depth Superficial Body Position Hooklying Comments pillow under left elbow Self-Care/Home Management Treatment Education Patient Education Home Exercise Program,Pain Management,Posture PT-OP-R Modalities Start: 07/14/22 15:52 Freq: Status: Active Protocol: Document 07/19/22 08:12 [facility] (Rec: 07/19/22 10:28 [facility] [id number]) Hot Pack/Cold Pack Treatment Cold Pack Location left shoulder Patient Position Hooklying Comments pillow under left elbow Infrared Treatment Treatment left ant shoulder Duration (Minutes) 6 Dosage (Joules) 42 Body Position Supine Continuous/Pulsed Continuous Program or Protocal for inc local circulation, acute, muscle/ligament/tendon PT-OP-T Assessment and Plan Start: 07/14/22 15:52 Freq: Status: Active Protocol: Document 07/19/22 08:12 [facility] (Rec: 07/19/22 10:28 [facility] [id number]) Physical Therapy Assessment Rehab Potential Rehabilitation Potential Excellent Evaluation Complexity Number of Personal Factors/Comorbidities 1-2 Number of Body Systems Impaired 3 Clinical Presentation at Evaluation Evolving Impairments Impairments Activity Tolerance,ROM,Soft Tissue Mobility,Strength Goals Two Impairment Limited ROM and strength left UE Short Term Goal (STG) Patient to be instructed in progressive HEP to address ROM and strength deficits following post-op protocol from Dr. Burgos STG Duration 08/24/22 Care Home Goal (LTG) Patient to be independent and compliant with HEP, following protocol as instructed and demonstrate functional ROM and strength left UE for all usual activities LTG Duration 10/17/22 Three Impairment Poor scar mobility Short Term Goal (STG) Initiate scar mobility when incision fully healed and instruct patient in self- massage STG Duration 08/24/22 Care Home Goal (LTG) Normalize scar mobility for improved shoulder function LTG Duration 10/17/22 One Impairment Unable to functionally use left UE Impairment UE Quickdash disability questionnaire 54% Short Term Goal (STG) Decrease Quickdash score to no greater than 40% as measure of improved functional use of her shoulder. STG Duration 08/24/22 [employer] Manager Goal (LTG) Patient to regain full functional use of her left shoulder including ability to reach overhead and behind her back. Improve Quickdash score to no greater than 15% as measure of improved left shoulder function LTG Duration 10/17/22 Assessment Summary Assessment Patient presents with typical post-op limitations in ROM, strength, and function of left shoulder. She comes to PT wearing abduction sling and reports icing her shoulder 2x/ day and performing pendulum exercises as instructed after surgery. Incision appears to be healing well with no signs or symptoms of infection. We reviewed pendulum exercises, started PROM exercises per protocol. She will benefit from physical therapy to help her safely progress through her TSA protocol to regain full active use and function of her left shoulder per protocol. We discussed POC and she is in agreement. Her shoulder was iced following treatment and she was issued written handouts for HEP. Physical Therapy Plan Frequency and Duration Frequency of Treatment 2x/Week Duration of treatment (weeks) 12 Plan of Care Start Date 07/19/22 Plan of Care End Date 10/17/22 Therapeutic Interventions Therapeutic Interventions Home Exercise Program,Manual Therapy,Patient/Caregiver Education,Self-Care/Home Management,Soft Tissue Mobilization,Taping, Therapeutic Activities, Therapeutic Exercises Modalities Cold Pack/Ice Massage,Electric Stimulation,Hot Packs, Infrared Therapy,Iontophoresis ,Traction- Mechanical, Ultrasound Next Visit Focus/Plan Next Note Type Treatment Note Next Visit Plan Assess response to first session, review HEP, provide PROM left shoulder, scar mobilization, cold laser, and ice.
--- NOTE | 2022-07-21 15:43 | PT.OTN ---
Current Diagnoses Primary osteoarthritis, left shoulder (07/21/22) Physical Therapy Treatment Note PT-OP-A Visit Information Start: 07/14/22 15:52 Freq: Status: Active Protocol: Document 07/21/22 10:34 [facility] (Rec: 07/21/22 11:18 [facility] [id number]) Out-Patient Physical Therapy Visit Information Visit Information Visit Type Treatment Note Visit Start Time 10:34 Visit Stop Time 11:25 Total Visit Minutes 51 Visit Number 2 Evaluation Information Evaluation Date 07/19/22 Precautions Precautions Per protocol in chart: sling x 6 weeks, in supine elbow must be supported with pillow to prevent shoulder extension, no lifting of objects with operative extremity, no IR/ dduction PT-OP-B Current Condition Start: 07/14/22 15:52 Freq: Status: Active Protocol: Document 07/21/22 10:34 [facility] (Rec: 07/21/22 11:18 [facility] [id number]) Current Condition History of Current Condition Onset Date 06/28/22 Current Complaints left reverse TSA with pain and limited use left UE History of Current Condition L reverse TSA. Has been in for adjustment of sling due to pain. States doctor told her she could do active abduction due to being able to hold your arm up. Surgery by Blaine Burgos. PT-OP-C Subjective Start: 07/14/22 15:52 Freq: Status: Active Protocol: Document 07/21/22 10:34 [facility] (Rec: 07/21/22 11:18 [facility] [id number]) OP-PT Subjective Patient Comments Patient Comments Doing fairly well, table slide ex painfu PT-OP-H Neuro Start: 07/14/22 15:52 Freq: Status: Active Protocol: Document 07/19/22 08:12 [facility] (Rec: 07/19/22 10:28 [facility] [id number]) Sensation Evaluation Gross Sensation Gross Sensation WNL PT-OP-J Posture/Palpation/Skin Start: 07/14/22 15:52 Freq: Status: Active Protocol: Document 07/19/22 08:12 [facility] (Rec: 07/19/22 10:28 [facility] [id number]) Posture Evaluation Position Sitting Head/C-Spine Posture Forward Head T-Spine Posture Increased Kyphosis Shoulder Posture (L) Rounded,(R) Rounded Scapula Posture (L) Protracted,(R) Protracted Arm Posture (L) Internally Rotated,(R) Internally Rotated Palpation Assessment Location left [place] Palpation Findings Soft Tissue Tightness,Muscle Guarding,Tenderness Skin Assessment Incisional Assessment Incision Appearance/Comments Healing well, no signs or symptoms of infection. Small scabbed areas still present PT-OP-K Range of Motion Start: 07/14/22 15:52 Freq: Status: Active Protocol: Document 07/19/22 08:12 [facility] (Rec: 07/19/22 10:28 [facility] [id number]) Cervical Spine Range of Motion Cervical Spine Active ROM Limitations Soft Tissue Tightness Comments WFL Shoulder Goniometric Range of Motion Shoulder Left Shoulder ROM WFL No Testing Position Supine Flexion 100 Extension 0 Abduction 75 External Rotation at 45 degrees 30 Abduction right Shoulder ROM WFL Yes Elbow/Forearm Range of Motion Elbow/Forearm ROM Limitations Comments WNL PT-OP-M Strength Start: 07/14/22 15:52 Freq: Status: Active Protocol: Document 07/19/22 08:12 [facility] (Rec: 07/19/22 10:28 [facility] [id number]) Shoulder Strength Shoulder Manual Muscle Testing Left Comments Not assessed due to recent surgery Right Comments WFL, no MMT PT-OP-Q Treatments Start: 07/14/22 15:52 Freq: Status: Active Protocol: Document 07/21/22 10:34 [facility] (Rec: 07/21/22 15:43 [facility] [id number]) Therapeutic Exercises Supine Exercises PROM left shoulder Side left Reps/Minutes 10x flex, abd, ER Comments pain-free ROM Sitting Exercises pulleys Sitting Exercise Name short lever flex Side left Reps/Minutes 10x Comments no greater than 120 deg scapular squeeze Side bilateral Reps/Minutes 5x5 Comments cues to not move arm, just scapula table slide Reps/Minutes 5x Comments with table to the side of arm Standing Exercises deltoid isometrics Standing Exercise Name ant,med,post Side left Resistance gentle Equipment Used wall Reps/Minutes 5x pendulum Standing Exercise Name HEP Manual Therapy Treatment Soft Tissue Mobilization biceps, deltoids, [place] Mobilization Type Myofascial Release,Strumming Intensity/Depth Moderate Body Position Hooklying scar mob Mobilization Type Strumming Intensity/Depth Superficial Body Position Hooklying Comments pillow under left elbow Self-Care/Home Management Treatment Education Patient Education Home Exercise Program,Pain Management,Posture PT-OP-R Modalities Start: 07/14/22 15:52 Freq: Status: Active Protocol: Document 07/21/22 10:34 [facility] (Rec: 07/21/22 15:43 [facility] [id number]) Hot Pack/Cold Pack Treatment Cold Pack Location left shoulder Patient Position Sitting Comments pillow under left elbow Infrared Treatment Treatment left ant shoulder Duration (Minutes) 6 Dosage (Joules) 42 Body Position Supine Continuous/Pulsed Continuous Program or Protocal for inc local circulation, acute, muscle/ligament/tendon PT-OP-T Assessment and Plan Start: 07/14/22 15:52 Freq: Status: Active Protocol: Document 07/19/22 08:12 [facility] (Rec: 07/19/22 10:28 [facility] [id number]) Physical Therapy Assessment Rehab Potential Rehabilitation Potential Excellent Evaluation Complexity Number of Personal Factors/Comorbidities 1-2 Number of Body Systems Impaired 3 Clinical Presentation at Evaluation Evolving Impairments Impairments Activity Tolerance,ROM,Soft Tissue Mobility,Strength Goals Two Impairment Limited ROM and strength left UE Short Term Goal (STG) Patient to be instructed in progressive HEP to address ROM and strength deficits following post-op protocol from Dr. Burgos STG Duration 08/24/22 Vinyl Hanger Goal (LTG) Patient to be independent and compliant with HEP, following protocol as instructed and demonstrate functional ROM and strength left UE for all usual activities LTG Duration 10/17/22 Three Impairment Poor scar mobility Short Term Goal (STG) Initiate scar mobility when incision fully healed and instruct patient in self- massage STG Duration 08/24/22 Half-Way Goal (LTG) Normalize scar mobility for improved shoulder function LTG Duration 10/17/22 One Impairment Unable to functionally use left UE Impairment UE Quickdash disability questionnaire 54% Short Term Goal (STG) Decrease Quickdash score to no greater than 40% as measure of improved functional use of her shoulder. STG Duration 08/24/22 Vinyl Hanger Goal (LTG) Patient to regain full functional use of her left shoulder including ability to reach overhead and behind her back. Improve Quickdash score to no greater than 15% as measure of improved left shoulder function LTG Duration 10/17/22 Assessment Summary Assessment Patient presents with typical post-op limitations in ROM, strength, and function of left shoulder. She comes to PT wearing abduction sling and reports icing her shoulder 2x/ day and performing pendulum exercises as instructed after surgery. Incision appears to be healing well with no signs or symptoms of infection. We reviewed pendulum exercises, started PROM exercises per protocol. She will benefit from physical therapy to help her safely progress through her TSA protocol to regain full active use and function of her left shoulder per protocol. We discussed POC and she is in agreement. Her shoulder was iced following treatment and she was issued written handouts for HEP. Physical Therapy Plan Frequency and Duration Frequency of Treatment 2x/Week Duration of treatment (weeks) 12 Plan of Care Start Date 07/19/22 Plan of Care End Date 10/17/22 Therapeutic Interventions Therapeutic Interventions Home Exercise Program,Manual Therapy,Patient/Caregiver Education,Self-Care/Home Management,Soft Tissue Mobilization,Taping, Therapeutic Activities, Therapeutic Exercises Modalities Cold Pack/Ice Massage,Electric Stimulation,Hot Packs, Infrared Therapy,Iontophoresis ,Traction- Mechanical, Ultrasound Next Visit Focus/Plan Next Note Type Treatment Note Next Visit Plan Assess response to first session, review HEP, provide PROM left shoulder, scar mobilization, cold laser, and ice.
--- NOTE | 2022-07-26 11:44 | PT.OTN ---
Current Diagnoses Primary osteoarthritis, left shoulder (07/26/22) Physical Therapy Treatment Note PT-OP-A Visit Information Start: 07/14/22 15:52 Freq: Status: Active Protocol: Document 07/26/22 10:30 [facility] (Rec: 07/26/22 10:55 [facility] [id number]) Out-Patient Physical Therapy Visit Information Visit Information Visit Type Treatment Note Visit Start Time 10:30 Visit Stop Time 11:25 Total Visit Minutes 55 Visit Number 3 Evaluation Information Evaluation Date 07/19/22 Precautions Precautions Per protocol in chart: sling x 6 weeks, in supine elbow must be supported with pillow to prevent shoulder extension, no lifting of objects with operative extremity, no IR/ dduction PT-OP-B Current Condition Start: 07/14/22 15:52 Freq: Status: Active Protocol: Document 07/26/22 10:30 [facility] (Rec: 07/26/22 10:55 [facility] [id number]) Current Condition History of Current Condition Onset Date 06/28/22 Current Complaints left reverse TSA with pain and limited use left UE History of Current Condition L reverse TSA. Has been in for adjustment of sling due to pain. States doctor told her she could do active abduction due to being able to hold her arm up. Surgery by Blaine Burgos. 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 PT-OP-H Neuro Start: 07/14/22 15:52 Freq: Status: Active Protocol: Document 07/19/22 08:12 [facility] (Rec: 07/19/22 10:28 [facility] [id number]) Sensation Evaluation Gross Sensation Gross Sensation WNL PT-OP-J Posture/Palpation/Skin Start: 07/14/22 15:52 Freq: Status: Active Protocol: Document 07/19/22 08:12 [facility] (Rec: 07/19/22 10:28 [facility] [id number]) Posture Evaluation Position Sitting Head/C-Spine Posture Forward Head T-Spine Posture Increased Kyphosis Shoulder Posture (L) Rounded,(R) Rounded Scapula Posture (L) Protracted,(R) Protracted Arm Posture (L) Internally Rotated,(R) Internally Rotated Palpation Assessment Location left [place] Palpation Findings Soft Tissue Tightness,Muscle Guarding,Tenderness Skin Assessment Incisional Assessment Incision Appearance/Comments Healing well, no signs or symptoms of infection. Small scabbed areas still present PT-OP-K Range of Motion Start: 07/14/22 15:52 Freq: Status: Active Protocol: Document 07/19/22 08:12 [facility] (Rec: 07/19/22 10:28 [facility] [id number]) Cervical Spine Range of Motion Cervical Spine Active ROM Limitations Soft Tissue Tightness Comments WFL Shoulder Goniometric Range of Motion Shoulder Left Shoulder ROM WFL No Testing Position Supine Flexion 100 Extension 0 Abduction 75 External Rotation at 45 degrees 30 Abduction right Shoulder ROM WFL Yes Elbow/Forearm Range of Motion Elbow/Forearm ROM Limitations Comments WNL PT-OP-M Strength Start: 07/14/22 15:52 Freq: Status: Active Protocol: Document 07/19/22 08:12 [facility] (Rec: 07/19/22 10:28 [facility] [id number]) Shoulder Strength Shoulder Manual Muscle Testing Left Comments Not assessed due to recent surgery Right Comments WFL, no MMT PT-OP-Q Treatments Start: 07/14/22 15:52 Freq: Status: Active Protocol: Document 07/26/22 10:30 [facility] (Rec: 07/26/22 11:44 [facility] [id number]) Therapeutic Exercises Sitting Exercises shoulder ER Side left Equipment Used towel roll, wand Reps/Minutes 10x5 pulleys Sitting Exercise Name short lever flex Side left Reps/Minutes 10x Comments no greater than 120 deg scapular squeeze Side bilateral Reps/Minutes 5x5 Comments cues to not move arm, just scapula table slide Reps/Minutes 5x Comments with table to the side of arm Manual Therapy Treatment Soft Tissue Mobilization biceps, deltoids, UT Mobilization Type Myofascial Release,Strumming Intensity/Depth Moderate Body Position Hooklying scar mob Mobilization Type Strumming Intensity/Depth Superficial Body Position Hooklying Comments pillow under left elbow Joint Mobilizations scapula Grade II Body Position Sidelying Comments next session Self-Care/Home Management Treatment Education Patient Education Home Exercise Program,Posture PT-OP-R Modalities Start: 07/14/22 15:52 Freq: Status: Active Protocol: Document 07/26/22 10:30 [facility] (Rec: 07/26/22 11:44 [facility] [id number]) Electric Stimulation Electric Stimulation left shoulder Comments not done per patient request Hot Pack/Cold Pack Treatment Cold Pack Location left shoulder Patient Position Sitting Comments pillow under left elbow PT-OP-T Assessment and Plan Start: 07/14/22 15:52 Freq: Status: Active Protocol: Document 07/26/22 10:30 [facility] (Rec: 07/26/22 10:55 [facility] [id number]) Physical Therapy Assessment Goals Two Impairment Limited ROM and strength left UE Short Term Goal (STG) Patient to be instructed in progressive HEP to address ROM and strength deficits following post-op protocol from Dr. Burgos STG Duration 08/24/22 Skilled Nursing Goal (LTG) Patient to be independent and compliant with HEP, following protocol as instructed and demonstrate functional ROM and strength left UE for all usual activities LTG Duration 10/17/22 Three Impairment Poor scar mobility Impairment forward head, rounded shoulders Short Term Goal (STG) Initiate scar mobility when incision fully healed and instruct patient in self- massage STG Duration 08/24/22 Mortgage Loan Originator Goal (LTG) Normalize scar mobility for improved shoulder function LTG Duration 10/17/22 One Impairment Unable to functionally use left UE Impairment UE Quickdash disability questionnaire 54% Short Term Goal (STG) Decrease Quickdash score to no greater than 40% as measure of improved functional use of her shoulder. STG Duration 08/24/22 Skilled Nursing Goal (LTG) Patient to regain full functional use of her left shoulder including ability to reach overhead and behind her back. Improve Quickdash score to no greater than 15% as measure of improved left shoulder function LTG Duration 10/17/22 Assessment Summary Assessment Problem-solved exercises with moderate cues for correct performance, ROM and pain-free ROM. Physical Therapy Plan Frequency and Duration Frequency of Treatment 2x/Week Duration of treatment (weeks) 12 Plan of Care Start Date 07/19/22 Plan of Care End Date 10/17/22 Therapeutic Interventions Therapeutic Interventions Home Exercise Program,Manual Therapy,Patient/Caregiver Education,Self-Care/Home Management,Soft Tissue Mobilization,Taping, Therapeutic Activities, Therapeutic Exercises Modalities Cold Pack/Ice Massage,Electric Stimulation,Hot Packs, Infrared Therapy,Iontophoresis ,Traction- Mechanical, Ultrasound Next Visit Focus/Plan Next Note Type Treatment Note Next Visit Plan Continue progression of shoulder rehab per protocol. Sidelying scapular mobilization, continue soft tissue mobilization to scar and surrounding soft tissues. Review shoulder isometrics. PROM left shoulder
--- NOTE | 2022-07-27 16:29 | PT.OTN ---
Current Diagnoses Primary osteoarthritis, left shoulder (07/27/22) Physical Therapy Treatment Note PT-OP-A Visit Information Start: 07/14/22 15:52 Freq: Status: Active Protocol: Document 07/27/22 13:00 [facility] (Rec: 07/27/22 13:46 [facility] [id number]) Out-Patient Physical Therapy Visit Information Visit Information Visit Type Treatment Note Visit Start Time 13:00 Visit Stop Time 13:55 Total Visit Minutes 55 Visit Number 4 Evaluation Information Evaluation Date 07/19/22 Precautions Precautions Per protocol in chart: sling x 6 weeks, in supine elbow must be supported with pillow to prevent shoulder extension, no lifting of objects with operative extremity, no IR/ dduction PT-OP-B Current Condition Start: 07/14/22 15:52 Freq: Status: Active Protocol: Document 07/27/22 13:00 [facility] (Rec: 07/27/22 13:46 [facility] [id number]) Current Condition History of Current Condition Onset Date 06/28/22 Current Complaints left reverse TSA with pain and limited use left UE History of Current Condition L reverse TSA. Has been in for adjustment of sling due to pain. States doctor told her she could do active abduction due to being able to hold her arm up. Surgery by Blaine Burgos. PT-OP-C Subjective Start: 07/14/22 15:52 Freq: Status: Active Protocol: Document 07/27/22 13:00 [facility] (Rec: 07/27/22 13:46 [facility] [id number]) OP-PT Subjective Patient Comments Patient Comments Slept 2 hours at a time. awake in between. Compliant to HEP. PT-OP-H Neuro Start: 07/14/22 15:52 Freq: Status: Active Protocol: Document 07/19/22 08:12 [facility] (Rec: 07/19/22 10:28 [facility] [id number]) Sensation Evaluation Gross Sensation Gross Sensation WNL PT-OP-J Posture/Palpation/Skin Start: 07/14/22 15:52 Freq: Status: Active Protocol: Document 07/19/22 08:12 [facility] (Rec: 07/19/22 10:28 [facility] [id number]) Posture Evaluation Position Sitting Head/C-Spine Posture Forward Head T-Spine Posture Increased Kyphosis Shoulder Posture (L) Rounded,(R) Rounded Scapula Posture (L) Protracted,(R) Protracted Arm Posture (L) Internally Rotated,(R) Internally Rotated Palpation Assessment Location left [place] Palpation Findings Soft Tissue Tightness,Muscle Guarding,Tenderness Skin Assessment Incisional Assessment Incision Appearance/Comments Healing well, no signs or symptoms of infection. Small scabbed areas still present PT-OP-K Range of Motion Start: 07/14/22 15:52 Freq: Status: Active Protocol: Document 07/19/22 08:12 [facility] (Rec: 07/19/22 10:28 [facility] [id number]) Cervical Spine Range of Motion Cervical Spine Active ROM Limitations Soft Tissue Tightness Comments WFL Shoulder Goniometric Range of Motion Shoulder Left Shoulder ROM WFL No Testing Position Supine Flexion 100 Extension 0 Abduction 75 External Rotation at 45 degrees 30 Abduction right Shoulder ROM WFL Yes Elbow/Forearm Range of Motion Elbow/Forearm ROM Limitations Comments WNL PT-OP-M Strength Start: 07/14/22 15:52 Freq: Status: Active Protocol: Document 07/19/22 08:12 [facility] (Rec: 07/19/22 10:28 [facility] [id number]) Shoulder Strength Shoulder Manual Muscle Testing Left Comments Not assessed due to recent surgery Right Comments WFL, no MMT PT-OP-Q Treatments Start: 07/14/22 15:52 Freq: Status: Active Protocol: Document 07/27/22 13:00 [facility] (Rec: 07/27/22 13:46 [facility] [id number]) Therapeutic Exercises Supine Exercises PROM left shoulder Side left Reps/Minutes 10x flex, abd, ER, IR, hor ab Comments pain-free ROM Sitting Exercises pendulum Reps/Minutes 5x all motions shoulder ER Side left Equipment Used towel roll, wand Reps/Minutes 10x5 pulleys Sitting Exercise Name short lever flex, scaption Side left Reps/Minutes 10x Comments no greater than 120 deg scapular squeeze Side bilateral Reps/Minutes 5x5 Comments cues to not move arm, just scapula Standing Exercises deltoid isometrics Comments review next session Manual Therapy Treatment Soft Tissue Mobilization biceps, deltoids, UT Mobilization Type Myofascial Release,Strumming Intensity/Depth Moderate Body Position Hooklying scar mob Mobilization Type Strumming Intensity/Depth Superficial Body Position Hooklying Comments pillow under left elbow Joint Mobilizations scapula Direction sup/in/protr/retr Grade II Body Position Sidelying Comments passive Self-Care/Home Management Treatment Education Patient Education Home Exercise Program,Posture PT-OP-R Modalities Start: 07/14/22 15:52 Freq: Status: Active Protocol: Document 07/27/22 13:00 [facility] (Rec: 07/27/22 13:46 [facility] [id number]) Hot Pack/Cold Pack Treatment Cold Pack Location left shoulder Patient Position Sitting Comments pillow under left elbow Infrared Treatment Treatment left ant shoulder Duration (Minutes) 6 Dosage (Joules) 42 Body Position Supine Continuous/Pulsed pulsed high Program or Protocal for inc local circulation, acute, muscle/ligament/tendon PT-OP-T Assessment and Plan Start: 07/14/22 15:52 Freq: Status: Active Protocol: Document 07/27/22 13:00 [facility] (Rec: 07/27/22 13:46 [facility] [id number]) Physical Therapy Assessment Goals Two Impairment Limited ROM and strength left UE Short Term Goal (STG) Patient to be instructed in progressive HEP to address ROM and strength deficits following post-op protocol from Dr. Burgos STG Duration 08/24/22 Can Tester Goal (LTG) Patient to be independent and compliant with HEP, following protocol as instructed and demonstrate functional ROM and strength left UE for all usual activities LTG Duration 10/17/22 Three Impairment Poor scar mobility Impairment forward head, rounded shoulders Short Term Goal (STG) Initiate scar mobility when incision fully healed and instruct patient in self- massage STG Duration 08/24/22 Intermediate Goal (LTG) Normalize scar mobility for improved shoulder function LTG Duration 10/17/22 One Impairment Unable to functionally use left UE Impairment UE Quickdash disability questionnaire 54% Short Term Goal (STG) Decrease Quickdash score to no greater than 40% as measure of improved functional use of her shoulder. STG Duration 08/24/22 Intermediate Goal (LTG) Patient to regain full functional use of her left shoulder including ability to reach overhead and behind her back. Improve Quickdash score to no greater than 15% as measure of improved left shoulder function LTG Duration 10/17/22 Assessment Summary Assessment Patient shoulder ROM flex 120, abduction in scapular plane 95, ER 25,IR 20. Compliant to HEP, good progress. Scar mobility limited, reviewed use of vitamin E oil and massage. Physical Therapy Plan Frequency and Duration Frequency of Treatment 2x/Week Duration of treatment (weeks) 12 Plan of Care Start Date 07/19/22 Plan of Care End Date 10/17/22 Therapeutic Interventions Therapeutic Interventions Home Exercise Program,Manual Therapy,Patient/Caregiver Education,Self-Care/Home Management,Soft Tissue Mobilization,Taping, Therapeutic Activities, Therapeutic Exercises Modalities Cold Pack/Ice Massage,Electric Stimulation,Hot Packs, Infrared Therapy,Iontophoresis ,Traction- Mechanical, Ultrasound Next Visit Focus/Plan Next Note Type Treatment Note Next Visit Plan Continue progression of shoulder rehab per protocol. Sidelying scapular mobilization, continue soft tissue mobilization to scar and surrounding soft tissues. Review shoulder isometrics. PROM left shoulder.
--- NOTE | 2022-08-04 17:22 | PT.OTN ---
Current Diagnoses Primary osteoarthritis, left shoulder (08/04/22) Physical Therapy Treatment Note PT-OP-A Visit Information Start: 07/14/22 15:52 Freq: Status: Active Protocol: Document 08/04/22 10:29 [facility] (Rec: 08/04/22 10:32 [facility] [id number]) Out-Patient Physical Therapy Visit Information Visit Information Visit Type Treatment Note Visit Start Time 10:30 Visit Stop Time 11:25 Total Visit Minutes 55 Visit Number 6 Evaluation Information Evaluation Date 07/19/22 Precautions Precautions Per protocol PT-OP-B Current Condition Start: 07/14/22 15:52 Freq: Status: Active Protocol: Document 08/01/22 08:59 [facility] (Rec: 08/01/22 09:50 [facility] [id number]) Current Condition History of Current Condition Onset Date 06/28/22 Current Complaints left reverse TSA with pain and limited use left UE History of Current Condition L reverse TSA. Has been in for adjustment of sling due to pain. States doctor told her she could do active abduction due to being able to hold her arm up. Surgery by Blaine Burgos. 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 Hoping can stop wearing sling next week at 6 weeks posto-op. Patient Reported Progress Improving PT-OP-H Neuro Start: 07/14/22 15:52 Freq: Status: Active Protocol: Document 07/19/22 08:12 [facility] (Rec: 07/19/22 10:28 [facility] [id number]) Sensation Evaluation Gross Sensation Gross Sensation WNL PT-OP-J Posture/Palpation/Skin Start: 07/14/22 15:52 Freq: Status: Active Protocol: Document 07/19/22 08:12 [facility] (Rec: 07/19/22 10:28 [facility] [id number]) Posture Evaluation Position Sitting Head/C-Spine Posture Forward Head T-Spine Posture Increased Kyphosis Shoulder Posture (L) Rounded,(R) Rounded Scapula Posture (L) Protracted,(R) Protracted Arm Posture (L) Internally Rotated,(R) Internally Rotated Palpation Assessment Location left [place] Palpation Findings Soft Tissue Tightness,Muscle Guarding,Tenderness Skin Assessment Incisional Assessment Incision Appearance/Comments Healing well, no signs or symptoms of infection. Small scabbed areas still present PT-OP-K Range of Motion Start: 07/14/22 15:52 Freq: Status: Active Protocol: Document 07/19/22 08:12 [facility] (Rec: 07/19/22 10:28 [facility] [id number]) Cervical Spine Range of Motion Cervical Spine Active ROM Limitations Soft Tissue Tightness Comments WFL Shoulder Goniometric Range of Motion Shoulder Left Shoulder ROM WFL No Testing Position Supine Flexion 100 Extension 0 Abduction 75 External Rotation at 45 degrees 30 Abduction right Shoulder ROM WFL Yes Elbow/Forearm Range of Motion Elbow/Forearm ROM Limitations Comments WNL PT-OP-M Strength Start: 07/14/22 15:52 Freq: Status: Active Protocol: Document 07/19/22 08:12 [facility] (Rec: 07/19/22 10:28 [facility] [id number]) Shoulder Strength Shoulder Manual Muscle Testing Left Comments Not assessed due to recent surgery Right Comments WFL, no MMT PT-OP-Q Treatments Start: 07/14/22 15:52 Freq: Status: Active Protocol: Document 08/04/22 10:29 [facility] (Rec: 08/04/22 10:32 [facility] [id number]) Therapeutic Exercises Supine Exercises scaption Equipment Used wand Reps/Minutes 10x Comments pain-free ROM flex Supine Exercise Name 90 to end range Equipment Used wand Reps/Minutes 10x IR Supine Exercise Name PROM to AAROM in scapular plane Equipment Used pillow, towel roll under elbow Reps/Minutes 10x 2 shld ER Supine Exercise Name AAROM in scapular plane Equipment Used wand, pillow, towel roll Reps/Minutes 10x4 Comments verbal and tactile cues for correct angle PROM left shoulder Side left Reps/Minutes 10x flex, abd, ER, IR, hor ab Comments pain-free ROM, manual by PT Sitting Exercises shoulder ER Side left Equipment Used towel roll, wand Reps/Minutes 10x5 scapular squeeze Side bilateral Reps/Minutes 5x5 Comments cues to not move arm, just scapula Standing Exercises passive ER Equipment Used doorjam Reps/Minutes 5x5sec Comments gentle shoulder IR/ER Standing Exercise Name straight elbow AROM Reps/Minutes 10x walking with armswing Standing Exercise Name HEP deltoid isometrics Standing Exercise Name HEP Manual Therapy Treatment Soft Tissue Mobilization biceps, deltoids, UT Mobilization Type Myofascial Release,Strumming Intensity/Depth Moderate Body Position Hooklying scar mob Mobilization Type Instrument Assisted,Strumming Intensity/Depth Superficial Body Position Hooklying Comments pillow under left elbow suction tool Self-Care/Home Management Treatment Education Patient Education Home Exercise Program,Joint Protection,Posture PT-OP-R Modalities Start: 07/14/22 15:52 Freq: Status: Active Protocol: Document 08/04/22 10:29 [facility] (Rec: 08/04/22 10:32 [facility] [id number]) Hot Pack/Cold Pack Treatment Cold Pack Location left shoulder Patient Position Sitting Comments pillow under left elbow PT-OP-T Assessment and Plan Start: 07/14/22 15:52 Freq: Status: Active Protocol: Document 08/04/22 10:29 [facility] (Rec: 08/04/22 10:32 [facility] [id number]) Physical Therapy Assessment Goals Two Impairment Limited ROM and strength left UE Short Term Goal (STG) Patient to be instructed in progressive HEP to address ROM and strength deficits following post-op protocol from Dr. Burgos STG Duration 08/24/22 Area Field Manager Goal (LTG) Patient to be independent and compliant with HEP, following protocol as instructed and demonstrate functional ROM and strength left UE for all usual activities LTG Duration 10/17/22 Three Impairment Poor scar mobility Impairment forward head, rounded shoulders Short Term Goal (STG) Initiate scar mobility when incision fully healed and instruct patient in self- massage STG Duration 08/24/22 Area Field Manager Goal (LTG) Normalize scar mobility for improved shoulder function LTG Duration 10/17/22 One Impairment Unable to functionally use left UE Impairment UE Quickdash disability questionnaire 54% Short Term Goal (STG) Decrease Quickdash score to no greater than 40% as measure of improved functional use of her shoulder. STG Duration 08/24/22 Area Field Manager Goal (LTG) Patient to regain full functional use of her left shoulder including ability to reach overhead and behind her back. Improve Quickdash score to no greater than 15% as measure of improved left shoulder function LTG Duration 10/17/22 Assessment Summary Assessment elevation continues to improve , at 135 today. Min change in ER; patient has difficulty achieving correct motion at home, inc time spent PROM, AAROM today into ER; with AAROM 35 deg. Importance emphasized with review for HEP . Good tolerance for shoudler flex and scaption with wand. Physical Therapy Plan Frequency and Duration Frequency of Treatment 2x/Week Duration of treatment (weeks) 12 Plan of Care Start Date 07/19/22 Plan of Care End Date 10/17/22 Therapeutic Interventions Therapeutic Interventions Home Exercise Program,Manual Therapy,Patient/Caregiver Education,Self-Care/Home Management,Soft Tissue Mobilization,Taping, Therapeutic Activities, Therapeutic Exercises Modalities Cold Pack/Ice Massage,Electric Stimulation,Hot Packs, Infrared Therapy,Iontophoresis ,Traction- Mechanical, Ultrasound Next Visit Focus/Plan Next Note Type Treatment Note Next Visit Plan Continue progression of shoulder rehab per protocol, emphasis on achieving inc shoulder ER. continue soft tissue mobilization to scar and surrounding soft tissues. PROM left shoulder, emphasis on IR and ER in scapular plane
--- NOTE | 2022-08-09 15:22 | PT.OTN ---
Current Diagnoses Primary osteoarthritis, left shoulder (08/09/22) Physical Therapy Treatment Note PT-OP-A Visit Information Start: 07/14/22 15:52 Freq: Status: Active Protocol: Document 08/09/22 10:38 NBM (Rec: 08/09/22 12:38 NBM [id number]) Out-Patient Physical Therapy Visit Information Visit Information Visit Type Treatment Note Visit Start Time 10:40 Visit Stop Time 11:25 Total Visit Minutes 45 Visit Number 7 Number of INSTRUCTOR ADJUNCT SURGICAL TECHNICIAN Visits 1 PT-OP-B Current Condition Start: 07/14/22 15:52 Freq: Status: Active Protocol: Document 08/01/22 08:59 SAK (Rec: 08/01/22 09:50 SAK [id number]) Current Condition History of Current Condition Onset Date 06/28/22 Current Complaints left reverse TSA with pain and limited use left UE History of Current Condition L reverse TSA. Has been in for adjustment of sling due to pain. States doctor told her she could do active abduction due to being able to hold her arm up. Surgery by Blaine Burgos. Prior Functional Status Baseline Function- ADL's Independent Baseline Function- Mobility Independent Baseline Function- Gait indep Baseline Function- Work/School volunteer work Baseline Function- Recreation/Hobbies no limitations PT-OP-C Subjective Start: 07/14/22 15:52 Freq: Status: Active Protocol: Document 08/09/22 10:38 NBM (Rec: 08/09/22 12:38 NBM [id number]) OP-PT Subjective Patient Comments Patient Comments Pt reports she has to wear the sling while sleeping for 6 more weeks but can spend more time out of it. She did not sleep well and is tired. She has a CPAP now and Soma for muscle relaxer. She feels holding the steering wheel driving is like AAROM, and has been doing self-scar tissue massage. PT-OP-H Neuro Start: 07/14/22 15:52 Freq: Status: Active Protocol: Document 07/19/22 08:12 SAK (Rec: 07/19/22 10:28 SAK [id number]) Sensation Evaluation Gross Sensation Gross Sensation WNL PT-OP-J Posture/Palpation/Skin Start: 07/14/22 15:52 Freq: Status: Active Protocol: Document 07/19/22 08:12 SAK (Rec: 07/19/22 10:28 SAK [id number]) Posture Evaluation Position Sitting Head/C-Spine Posture Forward Head T-Spine Posture Increased Kyphosis Shoulder Posture (L) Rounded,(R) Rounded Scapula Posture (L) Protracted,(R) Protracted Arm Posture (L) Internally Rotated,(R) Internally Rotated Palpation Assessment Location left [place] Palpation Findings Soft Tissue Tightness,Muscle Guarding,Tenderness Skin Assessment Incisional Assessment Incision Appearance/Comments Healing well, no signs or symptoms of infection. Small scabbed areas still present PT-OP-K Range of Motion Start: 07/14/22 15:52 Freq: Status: Active Protocol: Document 07/19/22 08:12 [facility] (Rec: 07/19/22 10:28 [facility] [id number]) Cervical Spine Range of Motion Cervical Spine Active ROM Limitations Soft Tissue Tightness Comments WFL Shoulder Goniometric Range of Motion Shoulder Left Shoulder ROM WFL No Testing Position Supine Flexion 100 Extension 0 Abduction 75 External Rotation at 45 degrees 30 Abduction right Shoulder ROM WFL Yes Elbow/Forearm Range of Motion Elbow/Forearm ROM Limitations Comments WNL PT-OP-M Strength Start: 07/14/22 15:52 Freq: Status: Active Protocol: Document 07/19/22 08:12 [facility] (Rec: 07/19/22 10:28 [facility] [id number]) Shoulder Strength Shoulder Manual Muscle Testing Left Comments Not assessed due to recent surgery Right Comments WFL, no MMT PT-OP-Q Treatments Start: 07/14/22 15:52 Freq: Status: Active Protocol: Document 08/09/22 10:38 [id number] (Rec: 08/09/22 12:38 NBM [id number]) Therapeutic Exercises Sitting Exercises pulleys Sitting Exercise Name flex, scaption Side left Reps/Minutes 10x Comments as anthony Manual Therapy Treatment Soft Tissue Mobilization rhomboids, subscap Body Location periscapular Mobilization Type Myofascial Release,Strumming, Sustained Pressure Intensity/Depth Moderate Body Position Sidelying Comments L periscapular w/ focus on medial and inferior borders biceps, deltoids, UT Mobilization Type Myofascial Release,Strumming Intensity/Depth Moderate Body Position Hooklying scar mob Mobilization Type Instrument Assisted,Strumming Intensity/Depth Superficial Body Position Hooklying Comments pillow under left elbow Joint Mobilizations scapula Direction sup/in/protr/retr Grade II Body Position Sidelying Comments passive PT-OP-R Modalities Start: 12/22/22 15:52 Freq: Status: Active Protocol: Document 08/09/22 10:38 NBM (Rec: 08/09/22 12:38 NBM [id number]) Hot Pack/Cold Pack Treatment Cold Pack Location left shoulder Patient Position Hooklying Treatment Duration (minutes) 15 Patient Tolerance Good Comments pillow under left elbow Infrared Treatment Treatment left ant shoulder Duration (Minutes) 6 Dosage (Joules) 42 Body Position Supine Continuous/Pulsed pulsed high Program or Protocal for inc local circulation, acute, muscle/ligament/tendon PT-OP-T Assessment and Plan Start: 07/14/22 15:52 Freq: Status: Active Protocol: Document 08/09/22 10:38 NBM (Rec: 08/09/22 12:38 NBM [id number]) Physical Therapy Assessment Impairments Impairments Activity Tolerance,ROM,Soft Tissue Mobility,Strength Goals Two Impairment Limited ROM and strength left UE Short Term Goal (STG) Patient to be instructed in progressive HEP to address ROM and strength deficits following post-op protocol from Dr. Burgos STG Duration 08/24/22 Retirement Goal (LTG) Patient to be independent and compliant with HEP, following protocol as instructed and demonstrate functional ROM and strength left UE for all usual activities LTG Duration 10/17/22 Three Impairment Poor scar mobility Impairment forward head, rounded shoulders Short Term Goal (STG) Initiate scar mobility when incision fully healed and instruct patient in self- massage STG Duration 08/24/22 Retirement Goal (LTG) Normalize scar mobility for improved shoulder function LTG Duration 10/17/22 One Impairment Unable to functionally use left UE Impairment UE Quickdash disability questionnaire 54% Short Term Goal (STG) Decrease Quickdash score to no greater than 40% as measure of improved functional use of her shoulder. STG Duration 08/24/22 Packager Head Goal (LTG) Patient to regain full functional use of her left shoulder including ability to reach overhead and behind her back. Improve Quickdash score to no greater than 15% as measure of improved left shoulder function LTG Duration 10/17/22 Assessment Summary Assessment Pt presents w/o sling and advises they must sleep in it for six more weeks but can spend more time out of the sling. Treatment focus on pain managment and manual therapy. Pt tolerates scar tissue mobilization and has positive feedback response to scapulothoracic joint mobilizations. Palpable tightness improves with soft tissue mobilization to L periscapular muscles w/ focus on medial and inferior borders . Pt demonstrates limited L shoulder pain-free range of motion. Physical Therapy Plan Frequency and Duration Frequency of Treatment 2x/Week Duration of treatment (weeks) 12 Plan of Care Start Date 07/19/22 Plan of Care End Date 10/17/22 Therapeutic Interventions Therapeutic Interventions Home Exercise Program,Manual Therapy,Patient/Caregiver Education,Self-Care/Home Management,Soft Tissue Mobilization,Taping, Therapeutic Activities, Therapeutic Exercises Modalities Cold Pack/Ice Massage,Electric Stimulation,Hot Packs, Infrared Therapy,Iontophoresis ,Traction- Mechanical, Ultrasound Next Visit Focus/Plan Next Note Type Treatment Note Next Visit Plan Continue progression of shoulder rehab per protocol, emphasis on achieving inc shoulder ER. continue soft tissue mobilization to scar and surrounding soft tissues. PROM left shoulder, emphasis on IR and ER in scapular plane
--- NOTE | 2022-08-11 16:57 | PT.OTN ---
Current Diagnoses Primary osteoarthritis, left shoulder (08/11/22) Physical Therapy Treatment Note PT-OP-A Visit Information Start: 07/14/22 15:52 Freq: Status: Active Protocol: Document 08/11/22 10:36 SAK (Rec: 08/11/22 11:11 SAK [id number]) Out-Patient Physical Therapy Visit Information Visit Information Visit Type Treatment Note Visit Start Time 10:35 Visit Stop Time 11:25 Total Visit Minutes 55 Visit Number 7 Number of LEG BREAKER Visits 0 Evaluation Information Evaluation Date 07/19/22 Precautions Precautions Per protocol PT-OP-B Current Condition Start: 07/14/22 15:52 Freq: Status: Active Protocol: Document 08/01/22 08:59 SAK (Rec: 08/01/22 09:50 SAK [id number]) Current Condition History of Current Condition Onset Date 06/28/22 Current Complaints left reverse TSA with pain and limited use left UE History of Current Condition L reverse TSA. Has been in for adjustment of sling due to pain. States doctor told her she could do active abduction due to being able to hold her arm up. Surgery by Blaine Burgos. Prior Functional Status Baseline Function- ADL's Independent Baseline Function- Mobility Independent Baseline Function- Gait indep Baseline Function- Work/School volunteer work Baseline Function- Recreation/Hobbies no limitations PT-OP-C Subjective Start: 07/14/22 15:52 Freq: Status: Active Protocol: Document 08/09/22 10:38 NBM (Rec: 08/09/22 12:38 NBM [id number]) OP-PT Subjective Patient Comments Patient Comments Pt reports she has to wear the sling while sleeping for 6 more weeks but can spend more time out of it. She did not sleep well and is tired. She has a CPAP now and Soma for muscle relaxer. She feels holding the steering wheel driving is like AAROM, and has been doing self-scar tissue massage. PT-OP-H Neuro Start: 07/14/22 15:52 Freq: Status: Active Protocol: Document 07/19/22 08:12 SAK (Rec: 07/19/22 10:28 SAK [id number]) Sensation Evaluation Gross Sensation Gross Sensation WNL PT-OP-J Posture/Palpation/Skin Start: 07/14/22 15:52 Freq: Status: Active Protocol: Document 07/19/22 08:12 SAK (Rec: 12/27/22 10:28 [facility] [id number]) Posture Evaluation Position Sitting Head/C-Spine Posture Forward Head T-Spine Posture Increased Kyphosis Shoulder Posture (L) Rounded,(R) Rounded Scapula Posture (L) Protracted,(R) Protracted Arm Posture (L) Internally Rotated,(R) Internally Rotated Palpation Assessment Location left [place] Palpation Findings Soft Tissue Tightness,Muscle Guarding,Tenderness Skin Assessment Incisional Assessment Incision Appearance/Comments Healing well, no signs or symptoms of infection. Small scabbed areas still present PT-OP-K Range of Motion Start: 07/14/22 15:52 Freq: Status: Active Protocol: Document 07/19/22 08:12 [facility] (Rec: 07/19/22 10:28 [facility] [id number]) Cervical Spine Range of Motion Cervical Spine Active ROM Limitations Soft Tissue Tightness Comments WFL Shoulder Goniometric Range of Motion Shoulder Left Shoulder ROM WFL No Testing Position Supine Flexion 100 Extension 0 Abduction 75 External Rotation at 45 degrees 30 Abduction right Shoulder ROM WFL Yes Elbow/Forearm Range of Motion Elbow/Forearm ROM Limitations Comments WNL PT-OP-M Strength Start: 07/14/22 15:52 Freq: Status: Active Protocol: Document 07/19/22 08:12 [facility] (Rec: 07/19/22 10:28 [facility] [id number]) Shoulder Strength Shoulder Manual Muscle Testing Left Comments Not assessed due to recent surgery Right Comments WFL, no MMT PT-OP-Q Treatments Start: 07/14/22 15:52 Freq: Status: Active Protocol: Document 08/11/22 10:36 [facility] (Rec: 08/11/22 16:57 [facility] [id number]) Therapeutic Exercises Supine Exercises hor ab/ad Supine Exercise Name AAROM Reps/Minutes 10x scaption Equipment Used wand Reps/Minutes 10x Comments pain-free ROM flex Supine Exercise Name 90 to end range Equipment Used wand Reps/Minutes 10x IR Supine Exercise Name PROM to AAROM in scapular plane Equipment Used pillow, towel roll under elbow Reps/Minutes 10x 2 shld ER Supine Exercise Name AAROM in scapular plane Equipment Used wand, pillow, towel roll Reps/Minutes 10x4 Comments verbal and tactile cues for correct angle Sitting Exercises shoulder ER Side left Equipment Used towel roll, wand Reps/Minutes 10x5 pulleys Sitting Exercise Name flex, scaption Side left Reps/Minutes 10x Comments no greater than 120 deg Manual Therapy Treatment Soft Tissue Mobilization biceps, deltoids, UT Mobilization Type Myofascial Release,Strumming Intensity/Depth Moderate Body Position Hooklying scar mob Mobilization Type Instrument Assisted,Strumming Intensity/Depth Superficial Body Position Hooklying Comments pillow under left elbow Joint Mobilizations scapula Direction sup/in/protr/retr Grade II Body Position Sidelying Comments passive Self-Care/Home Management Treatment Education Other Education answered questions regarding protocol PT-OP-R Modalities Start: 07/14/22 15:52 Freq: Status: Active Protocol: Document 08/11/22 10:36 [facility] (Rec: 08/11/22 16:57 [facility] [id number]) Infrared Treatment Treatment left ant shoulder Duration (Minutes) 6 Dosage (Joules) 42 Body Position Supine Continuous/Pulsed pulsed high Program or Protocal for inc local circulation, acute, muscle/ligament/tendon PT-OP-T Assessment and Plan Start: 07/14/22 15:52 Freq: Status: Active Protocol: Document 08/11/22 10:36 [facility] (Rec: 08/11/22 11:11 [facility] [id number]) Physical Therapy Assessment Goals Two Impairment Limited ROM and strength left UE Short Term Goal (STG) Patient to be instructed in progressive HEP to address ROM and strength deficits following post-op protocol from Dr. Burgos STG Duration 08/24/22 Metal Treater Goal (LTG) Patient to be independent and compliant with HEP, following protocol as instructed and demonstrate functional ROM and strength left UE for all usual activities LTG Duration 10/17/22 Three Impairment Poor scar mobility Impairment forward head, rounded shoulders Short Term Goal (STG) Initiate scar mobility when incision fully healed and instruct patient in self- massage STG Duration 08/24/22 Detention Goal (LTG) Normalize scar mobility for improved shoulder function LTG Duration 10/17/22 One Impairment Unable to functionally use left UE Impairment UE Quickdash disability questionnaire 54% Short Term Goal (STG) Decrease Quickdash score to no greater than 40% as measure of improved functional use of her shoulder. STG Duration 08/24/22 Metal Treater Goal (LTG) Patient to regain full functional use of her left shoulder including ability to reach overhead and behind her back. Improve Quickdash score to no greater than 15% as measure of improved left shoulder function LTG Duration 3/27/23 Assessment Summary Assessment Pt. advised can gradually wean off sling during the day but wear another 6 weeks in bed at night. Continues to have difficulty with doing ER without extending elbow, improves with motion with AAROM PT guidance supine. Shoulder IR in scapular plane l, full shld girdle tends to rotate forward requiring stabilization with AAROM guidance for correct motion. Physical Therapy Plan Frequency and Duration Frequency of Treatment 2x/Week Duration of treatment (weeks) 12 Plan of Care Start Date 07/19/22 Plan of Care End Date 10/17/22 Therapeutic Interventions Therapeutic Interventions Home Exercise Program,Manual Therapy,Patient/Caregiver Education,Self-Care/Home Management,Soft Tissue Mobilization,Taping, Therapeutic Activities, Therapeutic Exercises Modalities Cold Pack/Ice Massage,Electric Stimulation,Hot Packs, Infrared Therapy,Iontophoresis ,Traction- Mechanical, Ultrasound Next Visit Focus/Plan Next Note Type Treatment Note Next Visit Plan Continue progression of shoulder rehab per protocol, emphasis on achieving inc shoulder ER. continue soft tissue mobilization to scar and surrounding soft tissues. PROM left shoulder, emphasis on IR and ER in scapular plane
--- NOTE | 2022-08-16 16:51 | PT.OTN ---
Current Diagnoses Primary osteoarthritis, left shoulder (08/16/22) Physical Therapy Treatment Note PT-OP-A Visit Information Start: 07/14/22 15:52 Freq: Status: Active Protocol: Document 08/16/22 10:32 SAK (Rec: 08/16/22 11:00 [facility] [id number]) Out-Patient Physical Therapy Visit Information Visit Information Visit Type Treatment Note Visit Start Time 10:32 Visit Stop Time 11:25 Total Visit Minutes 55 Visit Number 8 Number of BRANCH COORDINATOR Visits 0 Evaluation Information Evaluation Date 07/19/22 Precautions Precautions Per protocol PT-OP-B Current Condition Start: 07/14/22 15:52 Freq: Status: Active Protocol: Document 08/01/22 08:59 SAK (Rec: 08/01/22 09:50 SAK [id number]) Current Condition History of Current Condition Onset Date 06/28/22 Current Complaints left reverse TSA with pain and limited use left UE History of Current Condition L reverse TSA. Has been in for adjustment of sling due to pain. States doctor told her she could do active abduction due to being able to hold her arm up. Surgery by Blaine Burgos. Prior Functional Status Baseline Function- ADL's Independent Baseline Function- Mobility Independent Baseline Function- Gait indep Baseline Function- Work/School volunteer work Baseline Function- Recreation/Hobbies no limitations PT-OP-C Subjective Start: 07/14/22 15:52 Freq: Status: Active Protocol: Document 08/16/22 10:32 SAK (Rec: 08/16/22 11:00 [facility] [id number]) OP-PT Subjective Patient Comments Patient Comments Reports surgeon was pleased with her progress, doesn't have to wear sling to sleep anymore. Now sleeping with body pillow. Was able to sleep on her left side, wants to bring pillow in to have PT show her how to best use. Can now drive. PT-OP-H Neuro Start: 07/14/22 15:52 Freq: Status: Active Protocol: Document 07/19/22 08:12 SAK (Rec: 07/19/22 10:28 [facility] [id number]) Sensation Evaluation Gross Sensation Gross Sensation WNL PT-OP-J Posture/Palpation/Skin Start: 07/14/22 15:52 Freq: Status: Active Protocol: Document 07/19/22 08:12 SAK (Rec: 07/19/22 10:28 [facility] [id number]) Posture Evaluation Position Sitting Head/C-Spine Posture Forward Head T-Spine Posture Increased Kyphosis Shoulder Posture (L) Rounded,(R) Rounded Scapula Posture (L) Protracted,(R) Protracted Arm Posture (L) Internally Rotated,(R) Internally Rotated Palpation Assessment Location left [place] Palpation Findings Soft Tissue Tightness,Muscle Guarding,Tenderness Skin Assessment Incisional Assessment Incision Appearance/Comments Healing well, no signs or symptoms of infection. Small scabbed areas still present PT-OP-K Range of Motion Start: 07/14/22 15:52 Freq: Status: Active Protocol: Document 07/19/22 08:12 [facility] (Rec: 07/19/22 10:28 [facility] [id number]) Cervical Spine Range of Motion Cervical Spine Active ROM Limitations Soft Tissue Tightness Comments WFL Shoulder Goniometric Range of Motion Shoulder Left Shoulder ROM WFL No Testing Position Supine Flexion 100 Extension 0 Abduction 75 External Rotation at 45 degrees 30 Abduction right Shoulder ROM WFL Yes Elbow/Forearm Range of Motion Elbow/Forearm ROM Limitations Comments WNL PT-OP-M Strength Start: 07/14/22 15:52 Freq: Status: Active Protocol: Document 07/19/22 08:12 [facility] (Rec: 07/19/22 10:28 [facility] [id number]) Shoulder Strength Shoulder Manual Muscle Testing Left Comments Not assessed due to recent surgery Right Comments WFL, no MMT PT-OP-Q Treatments Start: 07/14/22 15:52 Freq: Status: Active Protocol: Document 08/16/22 10:32 [facility] (Rec: 08/16/22 11:00 [facility] [id number]) Therapeutic Exercises Supine Exercises hor ab/ad Supine Exercise Name AAROM Reps/Minutes 10x scaption Equipment Used wand Reps/Minutes 10x Comments pain-free ROM flex Supine Exercise Name 90 to end range Equipment Used wand Reps/Minutes 10x IR Supine Exercise Name PROM to AAROM in scapular plane Equipment Used pillow, towel roll under elbow Reps/Minutes 10x 2 shld ER Supine Exercise Name AAROM in scapular plane Equipment Used wand, pillow, towel roll Reps/Minutes 10x4 Comments verbal and tactile cues for correct angle Sitting Exercises shoulder ER Side left Equipment Used towel roll, wand Reps/Minutes 10x5 Comments manual cues for form pulleys Sitting Exercise Name flex, scaption Side left Reps/Minutes 10x Comments as anthony Standing Exercises passive ER Equipment Used doorjam Reps/Minutes 5x5sec Comments gentle shoulder IR/ER Standing Exercise Name HEP walking with armswing Standing Exercise Name HEP therapy ball on table Standing Exercise Name HEP deltoid isometrics Standing Exercise Name HEP pendulum Standing Exercise Name HEP Manual Therapy Treatment Soft Tissue Mobilization biceps, deltoids, UT Mobilization Type Myofascial Release,Strumming Intensity/Depth Moderate Body Position Hooklying scar mob Mobilization Type Instrument Assisted,Strumming Intensity/Depth Superficial Body Position Hooklying Comments pillow under left elbow PT-OP-R Modalities Start: 07/14/22 15:52 Freq: Status: Active Protocol: Document 08/16/22 10:32 SAK (Rec: 08/16/22 16:51 SAK [id number]) Hot Pack/Cold Pack Treatment Cold Pack Location left shoulder Patient Position Hooklying Comments pillow under left elbow Infrared Treatment Treatment left ant shoulder Duration (Minutes) 6 Dosage (Joules) 42 Body Position Supine Continuous/Pulsed pulsed high Program or Protocal for inc local circulation, acute, muscle/ligament/tendon PT-OP-T Assessment and Plan Start: 07/14/22 15:52 Freq: Status: Active Protocol: Document 08/16/22 10:32 SAK (Rec: 08/16/22 11:00 SAK [id number]) Physical Therapy Assessment Goals Two Impairment Limited ROM and strength left UE Short Term Goal (STG) Patient to be instructed in progressive HEP to address ROM and strength deficits following post-op protocol from Dr. Burgos STG Duration 08/24/22 Residential Goal (LTG) Patient to be independent and compliant with HEP, following protocol as instructed and demonstrate functional ROM and strength left UE for all usual activities LTG Duration 10/17/22 Three Impairment Poor scar mobility Impairment forward head, rounded shoulders Short Term Goal (STG) Initiate scar mobility when incision fully healed and instruct patient in self- massage STG Duration 08/24/22 Sales Service Professional Goal (LTG) Normalize scar mobility for improved shoulder function LTG Duration 10/17/22 One Impairment Unable to functionally use left UE Impairment UE Quickdash disability questionnaire 54% Short Term Goal (STG) Decrease Quickdash score to no greater than 40% as measure of improved functional use of her shoulder. STG Duration 08/24/22 Residential Goal (LTG) Patient to regain full functional use of her left shoulder including ability to reach overhead and behind her back. Improve Quickdash score to no greater than 15% as measure of improved left shoulder function LTG Duration 10/17/22 Physical Therapy Plan Frequency and Duration Frequency of Treatment 2x/Week Duration of treatment (weeks) 12 Plan of Care Start Date 07/19/22 Plan of Care End Date 10/17/22 Therapeutic Interventions Therapeutic Interventions Home Exercise Program,Manual Therapy,Patient/Caregiver Education,Self-Care/Home Management,Soft Tissue Mobilization,Taping, Therapeutic Activities, Therapeutic Exercises Modalities Cold Pack/Ice Massage,Electric Stimulation,Hot Packs, Infrared Therapy,Iontophoresis ,Traction- Mechanical, Ultrasound Next Visit Focus/Plan Next Note Type Treatment Note Next Visit Plan Continue progression of shoulder rehab per protocol, emphasis on achieving inc shoulder ER. continue soft tissue mobilization to scar and surrounding soft tissues. PROM left shoulder, emphasis on IR and ER in scapular plane
--- NOTE | 2022-08-18 10:17 | PT.OTN ---
Current Diagnoses Primary osteoarthritis, left shoulder (08/18/22) Physical Therapy Treatment Note PT-OP-A Visit Information Start: 07/14/22 15:52 Freq: Status: Active Protocol: Document 08/18/22 08:13 SAK (Rec: 08/18/22 09:02 [facility] [id number]) Out-Patient Physical Therapy Visit Information Visit Information Visit Type Treatment Note Visit Note 15 min late; wrote down wrong time Visit Start Time 08:15 Visit Stop Time 09:10 Total Visit Minutes 40 Visit Number 9 Number of RIVERBO[place] MASTER Visits 0 Evaluation Information Evaluation Date 07/19/22 Precautions Precautions Per protocol PT-OP-B Current Condition Start: 07/14/22 15:52 Freq: Status: Active Protocol: Document 08/01/22 08:59 SAK (Rec: 08/01/22 09:50 SAK [id number]) Current Condition History of Current Condition Onset Date 06/28/22 Current Complaints left reverse TSA with pain and limited use left UE History of Current Condition L reverse TSA. Has been in for adjustment of sling due to pain. States doctor told her she could do active abduction due to being able to hold her arm up. Surgery by Blaine Burgos. Prior Functional Status Baseline Function- ADL's Independent Baseline Function- Mobility Independent Baseline Function- Gait indep Baseline Function- Work/School volunteer work Baseline Function- Recreation/Hobbies no limitations PT-OP-C Subjective Start: 07/14/22 15:52 Freq: Status: Active Protocol: Document 08/18/22 08:13 SAK (Rec: 08/18/22 10:16 SAK [id number]) OP-PT Subjective Patient Comments Patient Comments had wrong time written down, apologizes for being late PT-OP-H Neuro Start: 07/14/22 15:52 Freq: Status: Active Protocol: Document 07/19/22 08:12 SAK (Rec: 07/19/22 10:28 SAK [id number]) Sensation Evaluation Gross Sensation Gross Sensation WNL PT-OP-J Posture/Palpation/Skin Start: 07/14/22 15:52 Freq: Status: Active Protocol: Document 07/19/22 08:12 SAK (Rec: 07/19/22 10:28 [facility] [id number]) Posture Evaluation Position Sitting Head/C-Spine Posture Forward Head T-Spine Posture Increased Kyphosis Shoulder Posture (L) Rounded,(R) Rounded Scapula Posture (L) Protracted,(R) Protracted Arm Posture (L) Internally Rotated,(R) Internally Rotated Palpation Assessment Location left [place] Palpation Findings Soft Tissue Tightness,Muscle Guarding,Tenderness Skin Assessment Incisional Assessment Incision Appearance/Comments Healing well, no signs or symptoms of infection. Small scabbed areas still present PT-OP-K Range of Motion Start: 07/14/22 15:52 Freq: Status: Active Protocol: Document 07/19/22 08:12 [facility] (Rec: 07/19/22 10:28 [facility] [id number]) Cervical Spine Range of Motion Cervical Spine Active ROM Limitations Soft Tissue Tightness Comments WFL Shoulder Goniometric Range of Motion Shoulder Left Shoulder ROM WFL No Testing Position Supine Flexion 100 Extension 0 Abduction 75 External Rotation at 45 degrees 30 Abduction right Shoulder ROM WFL Yes Elbow/Forearm Range of Motion Elbow/Forearm ROM Limitations Comments WNL PT-OP-M Strength Start: 07/14/22 15:52 Freq: Status: Active Protocol: Document 07/19/22 08:12 [facility] (Rec: 07/19/22 10:28 [facility] [id number]) Shoulder Strength Shoulder Manual Muscle Testing Left Comments Not assessed due to recent surgery Right Comments WFL, no MMT PT-OP-Q Treatments Start: 07/14/22 15:52 Freq: Status: Active Protocol: Document 08/18/22 08:13 [facility] (Rec: 08/18/22 10:16 [facility] [id number]) Therapeutic Exercises Supine Exercises serratus punch Reps/Minutes 10x Comments manual guidance, give HO next session rhythmic stab Supine Exercise Name should flex at 90 Resistance MR Reps/Minutes 12x Comments gentle IR Supine Exercise Name PROM to AAROM in scapular plane Equipment Used pillow, towel roll under elbow Reps/Minutes 10x 2 shld ER Supine Exercise Name AAROM in scapular plane Equipment Used wand, pillow, towel roll Reps/Minutes 10x2 Comments verbal and tactile cues for correct angle Sitting Exercises shoulder ER Side left Equipment Used towel roll, manual guidance Reps/Minutes 10x5 Comments manual cues for form pulleys Sitting Exercise Name flex, scaption Side left Reps/Minutes 10x Comments as anthony Manual Therapy Treatment Soft Tissue Mobilization scar mob Mobilization Type Instrument Assisted,Strumming Intensity/Depth Superficial Body Position Hooklying Comments pillow under left elbow PT-OP-R Modalities Start: 07/14/22 15:52 Freq: Status: Active Protocol: Document 08/18/22 08:13 [facility] (Rec: 08/18/22 10:16 SAK [id number]) Hot Pack/Cold Pack Treatment Cold Pack Location left shoulder Patient Position Hooklying Treatment Duration (minutes) 10 Patient Tolerance Good Comments pillow under left elbow Infrared Treatment Treatment left ant shoulder Duration (Minutes) 6 Dosage (Joules) 42 Body Position Supine Continuous/Pulsed pulsed high Program or Protocal for dec muscle stiffness, chronic, muscle/ligament/ tendon PT-OP-T Assessment and Plan Start: 07/14/22 15:52 Freq: Status: Active Protocol: Document 08/18/22 08:13 [facility] (Rec: 08/18/22 09:02 SAK [id number]) Physical Therapy Assessment Goals Two Impairment Limited ROM and strength left UE Short Term Goal (STG) Patient to be instructed in progressive HEP to address ROM and strength deficits following post-op protocol from Dr. Burgos STG Duration 08/24/22 Parking Manager Goal (LTG) Patient to be independent and compliant with HEP, following protocol as instructed and demonstrate functional ROM and strength left UE for all usual activities LTG Duration 10/17/22 Three Impairment Poor scar mobility Impairment forward head, rounded shoulders Short Term Goal (STG) Initiate scar mobility when incision fully healed and instruct patient in self- massage STG Duration 08/24/22 Parking Manager Goal (LTG) Normalize scar mobility for improved shoulder function LTG Duration 10/17/22 One Impairment Unable to functionally use left UE Impairment UE Quickdash disability questionnaire 54% Short Term Goal (STG) Decrease Quickdash score to no greater than 40% as measure of improved functional use of her shoulder. STG Duration 08/24/22 [facility] Goal (LTG) Patient to regain full functional use of her left shoulder including ability to reach overhead and behind her back. Improve Quickdash score to no greater than 15% as measure of improved left shoulder function LTG Duration 10/17/22 Assessment Summary Assessment shortened treatment today due to patient having wrong time. Continues to improve with functional ROM but needs mod cues and guidance for ER/IR. Physical Therapy Plan Frequency and Duration Frequency of Treatment 2x/Week Duration of treatment (weeks) 12 Plan of Care Start Date 07/19/22 Plan of Care End Date 10/17/22 Therapeutic Interventions Therapeutic Interventions Home Exercise Program,Manual Therapy,Patient/Caregiver Education,Self-Care/Home Management,Soft Tissue Mobilization,Taping, Therapeutic Activities, Therapeutic Exercises Modalities Cold Pack/Ice Massage,Electric Stimulation,Hot Packs, Infrared Therapy,Iontophoresis ,Traction- Mechanical, Ultrasound Next Visit Focus/Plan Next Note Type Treatment Note Next Visit Plan Continue progression of shoulder rehab per protocol, emphasis on achieving inc shoulder ER. continue soft tissue mobilization to scar and surrounding soft tissues. PROM left shoulder, emphasis on IR and ER in scapular plane
--- NOTE | 2022-08-22 14:53 | PT.OTN ---
Current Diagnoses Primary osteoarthritis, left shoulder (08/22/22) Physical Therapy Treatment Note PT-OP-A Visit Information Start: 07/14/22 15:52 Freq: Status: Active Protocol: Document 08/22/22 08:56 [facility] (Rec: 08/22/22 09:45 [facility] [id number]) Out-Patient Physical Therapy Visit Information Visit Information Visit Type Treatment Note Visit Start Time 09:00 Visit Stop Time 09:45 Total Visit Minutes 45 Visit Number 10 Number of BI TESTER Visits 0 Evaluation Information Evaluation Date 07/19/22 Precautions Precautions Per protocol PT-OP-B Current Condition Start: 07/14/22 15:52 Freq: Status: Active Protocol: Document 08/01/22 08:59 SAK (Rec: 08/01/22 09:50 SAK [id number]) Current Condition History of Current Condition Onset Date 06/28/22 Current Complaints left reverse TSA with pain and limited use left UE History of Current Condition L reverse TSA. Has been in for adjustment of sling due to pain. States doctor told her she could do active abduction due to being able to hold her arm up. Surgery by Blaine Burgos. Prior Functional Status Baseline Function- ADL's Independent Baseline Function- Mobility Independent Baseline Function- Gait indep Baseline Function- Work/School volunteer work Baseline Function- Recreation/Hobbies no limitations PT-OP-C Subjective Start: 07/14/22 15:52 Freq: Status: Active Protocol: Document 08/22/22 08:56 [facility] (Rec: 08/22/22 09:45 [facility] [id number]) OP-PT Subjective Patient Comments Patient Comments Getting better, arm out to side remains very difficult ( External rotation), using arm more for activities at home. PT-OP-H Neuro Start: 07/14/22 15:52 Freq: Status: Active Protocol: Document 07/19/22 08:12 SAK (Rec: 07/19/22 10:28 [facility] [id number]) Sensation Evaluation Gross Sensation Gross Sensation WNL PT-OP-J Posture/Palpation/Skin Start: 07/14/22 15:52 Freq: Status: Active Protocol: Document 07/19/22 08:12 SAK (Rec: 07/19/22 10:28 [facility] [id number]) Posture Evaluation Position Sitting Head/C-Spine Posture Forward Head T-Spine Posture Increased Kyphosis Shoulder Posture (L) Rounded,(R) Rounded Scapula Posture (L) Protracted,(R) Protracted Arm Posture (L) Internally Rotated,(R) Internally Rotated Palpation Assessment Location left [place] Palpation Findings Soft Tissue Tightness,Muscle Guarding,Tenderness Skin Assessment Incisional Assessment Incision Appearance/Comments Healing well, no signs or symptoms of infection. Small scabbed areas still present PT-OP-K Range of Motion Start: 07/14/22 15:52 Freq: Status: Active Protocol: Document 07/19/22 08:12 [facility] (Rec: 07/19/22 10:28 [facility] [id number]) Cervical Spine Range of Motion Cervical Spine Active ROM Limitations Soft Tissue Tightness Comments WFL Shoulder Goniometric Range of Motion Shoulder Left Shoulder ROM WFL No Testing Position Supine Flexion 100 Extension 0 Abduction 75 External Rotation at 45 degrees 30 Abduction right Shoulder ROM WFL Yes Elbow/Forearm Range of Motion Elbow/Forearm ROM Limitations Comments WNL PT-OP-M Strength Start: 07/14/22 15:52 Freq: Status: Active Protocol: Document 07/19/22 08:12 [facility] (Rec: 07/19/22 10:28 [facility] [id number]) Shoulder Strength Shoulder Manual Muscle Testing Left Comments Not assessed due to recent surgery Right Comments WFL, no MMT PT-OP-Q Treatments Start: 07/14/22 15:52 Freq: Status: Active Protocol: Document 08/22/22 08:56 [facility] (Rec: 08/22/22 09:45 [facility] [id number]) Therapeutic Exercises Supine Exercises serratus punch Reps/Minutes 10x Comments manual guidance, give HO next session rhythmic stab Supine Exercise Name should flex at 90 Resistance MR Reps/Minutes 12x Comments gentle IR Supine Exercise Name PROM to AAROM in scapular plane Equipment Used pillow, towel roll under elbow Reps/Minutes 10x 2 shld ER Supine Exercise Name AAROM in scapular plane Equipment Used wand, pillow, towel roll Reps/Minutes 10x2 Comments verbal and tactile cues for correct angle PROM left shoulder Side left Reps/Minutes 10x flex, abd, ER, IR, hor ab Comments pain-free ROM, manual by PT Sidelying Exercises scapular clocks. Sidelying Exercise Name 3, 4, 5:00 Side left Reps/Minutes 5x5 each Sitting Exercises shoulder rolls Sitting Exercise Name kianna, unil cat/cow Reps/Minutes 5x shoulder ER Side left Equipment Used towel roll, manual guidance Reps/Minutes 10x5 Comments manual cues for form pulleys Sitting Exercise Name flex, scaption Side left Reps/Minutes 10x Comments as anthony Standing Exercises wall slide Reps/Minutes 3x bicep curl Resistance 2# Reps/Minutes 10x tricep press Equipment Used L1 TB Reps/Minutes 10x5 Manual Therapy Treatment Soft Tissue Mobilization rhomboids, subscap Body Location periscapular Mobilization Type Myofascial Release,Strumming, Sustained Pressure Intensity/Depth Moderate biceps, deltoids, [place] Mobilization Type Myofascial Release,Strumming Intensity/Depth Moderate Body Position Hooklying scar mob Mobilization Type Instrument Assisted,Strumming Intensity/Depth Moderate Body Position Hooklying Comments pillow under left elbow Joint Mobilizations scapula Direction sup/in/protr/retr Grade II Body Position Sidelying Comments passive Self-Care/Home Management Treatment Education Other Education with any increase in soreness or pain back off activity/use of left UE. Don't lift anything over 3# PT-OP-R Modalities Start: 07/14/22 15:52 Freq: Status: Active Protocol: Document 08/18/22 08:13 [facility] (Rec: 08/18/22 10:16 [facility] [id number]) Hot Pack/Cold Pack Treatment Cold Pack Location left shoulder Patient Position Hooklying Treatment Duration (minutes) 10 Patient Tolerance Good Comments pillow under left elbow Infrared Treatment Treatment left ant shoulder Duration (Minutes) 6 Dosage (Joules) 42 Body Position Supine Continuous/Pulsed pulsed high Program or Protocal for dec muscle stiffness, chronic, muscle/ligament/ tendon PT-OP-T Assessment and Plan Start: 07/14/22 15:52 Freq: Status: Active Protocol: Document 08/22/22 08:56 [facility] (Rec: 08/22/22 09:45 [facility] [id number]) Physical Therapy Assessment Goals Two Impairment Limited ROM and strength left UE Short Term Goal (STG) Patient to be instructed in progressive HEP to address ROM and strength deficits following post-op protocol from Dr. Burgos STG Duration 08/24/22 [facility] Goal (LTG) Patient to be independent and compliant with HEP, following protocol as instructed and demonstrate functional ROM and strength left UE for all usual activities LTG Duration 10/17/22 Three Impairment Poor scar mobility Impairment forward head, rounded shoulders Short Term Goal (STG) Initiate scar mobility when incision fully healed and instruct patient in self- massage STG Duration 08/24/22 [facility] Goal (LTG) Normalize scar mobility for improved shoulder function LTG Duration 10/17/22 One Impairment Unable to functionally use left UE Impairment UE Quickdash disability questionnaire 54% Short Term Goal (STG) Decrease Quickdash score to no greater than 40% as measure of improved functional use of her shoulder. STG Duration 08/24/22 [facility] Goal (LTG) Patient to regain full functional use of her left shoulder including ability to reach overhead and behind her back. Improve Quickdash score to no greater than 15% as measure of improved left shoulder function LTG Duration 10/17/22 Assessment Summary Assessment Some increased soreness verbalized by patient AC joint region, encouraged pain-free ROM, back off inc use of left UE if pian inc. Inc scapular mob and DTM periscapular region today. No ice to shoulder due to PT oversight; patient to ice at home. Physical Therapy Plan Frequency and Duration Frequency of Treatment 2x/Week Duration of treatment (weeks) 12 Plan of Care Start Date 07/19/22 Plan of Care End Date 10/17/22 Therapeutic Interventions Therapeutic Interventions Home Exercise Program,Manual Therapy,Patient/Caregiver Education,Self-Care/Home Management,Soft Tissue Mobilization,Taping, Therapeutic Activities, Therapeutic Exercises Modalities Cold Pack/Ice Massage,Electric Stimulation,Hot Packs, Infrared Therapy,Iontophoresis ,Traction- Mechanical, Ultrasound Next Visit Focus/Plan Next Note Type Treatment Note Next Visit Plan Continue PT per POC, inc AROM GH, facilitate normalization of scapulohyumeral rhythm and scapular stab for improved shoulder function.
--- NOTE | 2022-08-25 17:37 | PT.OTN ---
Current Diagnoses Primary osteoarthritis, left shoulder (08/25/22) Physical Therapy Treatment Note PT-OP-A Visit Information Start: 07/14/22 15:52 Freq: Status: Active Protocol: Document 08/25/22 10:32 SAK (Rec: 08/25/22 11:18 SAK [id number]) Out-Patient Physical Therapy Visit Information Visit Information Visit Type Treatment Note Visit Start Time 10:32 Visit Stop Time 11:30 Total Visit Minutes 58 Visit Number 11 Number of NATIONAL SALES CONSULTANT Visits 0 Evaluation Information Evaluation Date 07/19/22 Precautions Precautions Per protocol PT-OP-B Current Condition Start: 07/14/22 15:52 Freq: Status: Active Protocol: Document 08/01/22 08:59 SAK (Rec: 08/01/22 09:50 SAK [id number]) Current Condition History of Current Condition Onset Date 06/28/22 Current Complaints left reverse TSA with pain and limited use left UE History of Current Condition L reverse TSA. Has been in for adjustment of sling due to pain. States doctor told her she could do active abduction due to being able to hold her arm up. Surgery by Blaine Burgos. Prior Functional Status Baseline Function- ADL's Independent Baseline Function- Mobility Independent Baseline Function- Gait indep Baseline Function- Work/School volunteer work Baseline Function- Recreation/Hobbies no limitations PT-OP-C Subjective Start: 07/14/22 15:52 Freq: Status: Active Protocol: Document 08/25/22 10:32 SAK (Rec: 08/25/22 11:18 SAK [id number]) OP-PT Subjective Patient Comments Patient Comments Was very sore after last session, maybe overdid. Better today. Was able to do counterclockwise sidelying saxman without pain. PT-OP-H Neuro Start: 07/14/22 15:52 Freq: Status: Active Protocol: Document 07/19/22 08:12 SAK (Rec: 07/19/22 10:28 SAK [id number]) Sensation Evaluation Gross Sensation Gross Sensation WNL PT-OP-J Posture/Palpation/Skin Start: 07/14/22 15:52 Freq: Status: Active Protocol: Document 07/19/22 08:12 SAK (Rec: 07/19/22 10:28 SAK [id number]) Posture Evaluation Position Sitting Head/C-Spine Posture Forward Head T-Spine Posture Increased Kyphosis Shoulder Posture (L) Rounded,(R) Rounded Scapula Posture (L) Protracted,(R) Protracted Arm Posture (L) Internally Rotated,(R) Internally Rotated Palpation Assessment Location left UT Palpation Findings Soft Tissue Tightness,Muscle Guarding,Tenderness Skin Assessment Incisional Assessment Incision Appearance/Comments Healing well, no signs or symptoms of infection. Small scabbed areas still present PT-OP-K Range of Motion Start: 07/14/22 15:52 Freq: Status: Active Protocol: Document 07/19/22 08:12 [facility] (Rec: 07/19/22 10:28 [facility] [id number]) Cervical Spine Range of Motion Cervical Spine Active ROM Limitations Soft Tissue Tightness Comments WFL Shoulder Goniometric Range of Motion Shoulder Left Shoulder ROM WFL No Testing Position Supine Flexion 100 Extension 0 Abduction 75 External Rotation at 45 degrees 30 Abduction right Shoulder ROM WFL Yes Elbow/Forearm Range of Motion Elbow/Forearm ROM Limitations Comments WNL PT-OP-M Strength Start: 07/14/22 15:52 Freq: Status: Active Protocol: Document 07/19/22 08:12 [facility] (Rec: 07/19/22 10:28 [facility] [id number]) Shoulder Strength Shoulder Manual Muscle Testing Left Comments Not assessed due to recent surgery Right Comments WFL, no MMT PT-OP-Q Treatments Start: 07/14/22 15:52 Freq: Status: Active Protocol: Document 08/25/22 10:32 [facility] (Rec: 08/25/22 11:18 [facility] [id number]) Therapeutic Exercises Supine Exercises serratus punch Reps/Minutes 10x Comments manual guidance, rhythmic stab Supine Exercise Name should flex at 90 Resistance MR Reps/Minutes 12x Comments gentle IR Supine Exercise Name PROM to AAROM in scapular plane Equipment Used pillow, towel roll under elbow Reps/Minutes 10x 2 shld ER Supine Exercise Name AAROM in scapular plane Equipment Used wand, pillow, towel roll Reps/Minutes 10x2 Comments verbal and tactile cues for correct angle PROM left shoulder Side left Reps/Minutes 10x flex, abd, ER, IR, hor ab Comments pain-free ROM, manual by PT Sidelying Exercises shoulder ER Sidelying Exercise Name AAROM Reps/Minutes 10x sleeper stretch Reps/Minutes 3x5 Comments cues for gentle ROM scapular clocks. Sidelying Exercise Name 3, 4, 5:00 Side left Reps/Minutes 5x5 each Sitting Exercises shoulder rolls Sitting Exercise Name kianna, unil shoulder ER Side left Equipment Used towel roll, manual guidance Reps/Minutes 10x5 Comments manual cues for form pulleys Sitting Exercise Name flex, scaption Side left Reps/Minutes 10x Comments as anthony Manual Therapy Treatment Soft Tissue Mobilization rhomboids, subscap Body Location periscapular Mobilization Type Myofascial Release,Strumming, Sustained Pressure Intensity/Depth Moderate biceps, deltoids, UT Mobilization Type Myofascial Release,Strumming Intensity/Depth Moderate Body Position Hooklying scar mob Mobilization Type Instrument Assisted,Strumming Intensity/Depth Moderate Body Position Hooklying Comments pillow under left elbow Joint Mobilizations scapula Direction sup/in/protr/retr Grade II Body Position Sidelying Comments passive PT-OP-R Modalities Start: 07/14/22 15:52 Freq: Status: Active Protocol: Document 08/25/22 10:32 [facility] (Rec: 08/25/22 11:18 [facility] [id number]) Hot Pack/Cold Pack Treatment Cold Pack Location left shoulder Patient Position Hooklying Treatment Duration (minutes) 10 Patient Tolerance Good Comments pillow under left elbow Infrared Treatment Treatment left ant shoulder Duration (Minutes) 6 Dosage (Joules) 42 Body Position Supine Continuous/Pulsed pulsed high Program or Protocal for dec muscle stiffness, chronic, muscle/ligament/ tendon PT-OP-T Assessment and Plan Start: 07/14/22 15:52 Freq: Status: Active Protocol: Document 08/25/22 10:32 [facility] (Rec: 08/25/22 11:18 [facility] [id number]) Physical Therapy Assessment Goals Two Impairment Limited ROM and strength left UE Short Term Goal (STG) Patient to be instructed in progressive HEP to address ROM and strength deficits following post-op protocol from Dr. Burgos 08/22/22: progressing with protocol, patient demonstrates good understanding STG Duration goal met; ongoing Natural Gas Basis Trader Goal (LTG) Patient to be independent and compliant with HEP, following protocol as instructed and demonstrate functional ROM and strength left UE for all usual activities LTG Duration 10/17/22 Three Impairment Poor scar mobility Impairment forward head, rounded shoulders Short Term Goal (STG) Initiate scar mobility when incision fully healed and instruct patient in self- massage 08/22/22: goal met STG Duration 08/24/22 Natural Gas Basis Trader Goal (LTG) Normalize scar mobility for improved shoulder function LTG Duration 10/17/22 One Impairment Unable to functionally use left UE Impairment UE Quickdash disability questionnaire 54% Short Term Goal (STG) Decrease Quickdash score to no greater than 40% as measure of improved functional use of her shoulder. 08/22/22: goal met STG Duration goal met Natural Gas Basis Trader Goal (LTG) Patient to regain full functional use of her left shoulder including ability to reach overhead and behind her back. Improve Quickdash score to no greater than 15% as measure of improved left shoulder function LTG Duration 10/17/22 Progress Towards Goals Progress Towards Goals Progressing Toward Goals Assessment Summary Assessment Improving scapular activation with scapular clocks as well as with ER with tactile an verbal cues. Decreased overactivation of UT with elevation. Added sleeper stretch with cues for gentle stretch. Continues to make good progress with left shoulder s/p TSA. Physical Therapy Plan Frequency and Duration Frequency of Treatment 2x/Week Duration of treatment (weeks) 12 Plan of Care Start Date 07/19/22 Plan of Care End Date 10/17/22 Therapeutic Interventions Therapeutic Interventions Home Exercise Program,Manual Therapy,Patient/Caregiver Education,Self-Care/Home Management,Soft Tissue Mobilization,Taping, Therapeutic Activities, Therapeutic Exercises Modalities Cold Pack/Ice Massage,Electric Stimulation,Hot Packs, Infrared Therapy,Iontophoresis ,Traction- Mechanical, Ultrasound Next Visit Focus/Plan Next Note Type Treatment Note Next Visit Plan Continue PT per POC, inc AROM GH, facilitate normalization of scapulohyumeral rhythm and scapular stab for improved shoulder function.
--- NOTE | 2022-08-29 15:46 | PT.OTN ---
Current Diagnoses Primary osteoarthritis, left shoulder (08/29/22) Physical Therapy Treatment Note PT-OP-A Visit Information Start: 07/14/22 15:52 Freq: Status: Active Protocol: Document 08/29/22 08:50 SAK (Rec: 08/29/22 09:49 [facility] [id number]) Out-Patient Physical Therapy Visit Information Visit Information Visit Type Treatment Note Visit Start Time 09:00 Visit Stop Time 10:00 Total Visit Minutes 60 Visit Number 12 Number of DEICER KIT ASSEMBLER Visits 0 Evaluation Information Evaluation Date 07/19/22 Precautions Precautions Per protocol tomorrow is 9 weeks post-op. PT-OP-B Current Condition Start: 07/14/22 15:52 Freq: Status: Active Protocol: Document 08/01/22 08:59 SAK (Rec: 08/01/22 09:50 SAK [id number]) Current Condition History of Current Condition Onset Date 06/28/22 Current Complaints left reverse TSA with pain and limited use left UE History of Current Condition L reverse TSA. Has been in for adjustment of sling due to pain. States doctor told her she could do active abduction due to being able to hold her arm up. Surgery by Blaine Burgos. 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 PT-OP-H Neuro Start: 07/14/22 15:52 Freq: Status: Active Protocol: Document 07/19/22 08:12 SAK (Rec: 07/19/22 10:28 SAK [id number]) Sensation Evaluation Gross Sensation Gross Sensation WNL PT-OP-J Posture/Palpation/Skin Start: 07/14/22 15:52 Freq: Status: Active Protocol: Document 07/19/22 08:12 SAK (Rec: 07/19/22 10:28 SAK [id number]) Posture Evaluation Position Sitting Head/C-Spine Posture Forward Head T-Spine Posture Increased Kyphosis Shoulder Posture (L) Rounded,(R) Rounded Scapula Posture (L) Protracted,(R) Protracted Arm Posture (L) Internally Rotated,(R) Internally Rotated Palpation Assessment Location left UT Palpation Findings Soft Tissue Tightness,Muscle Guarding,Tenderness Skin Assessment Incisional Assessment Incision Appearance/Comments Healing well, no signs or symptoms of infection. Small scabbed areas still present PT-OP-K Range of Motion Start: 07/14/22 15:52 Freq: Status: Active Protocol: Document 07/19/22 08:12 [facility] (Rec: 07/19/22 10:28 [facility] [id number]) Cervical Spine Range of Motion Cervical Spine Active ROM Limitations Soft Tissue Tightness Comments WFL Shoulder Goniometric Range of Motion Shoulder Left Shoulder ROM WFL No Testing Position Supine Flexion 100 Extension 0 Abduction 75 External Rotation at 45 degrees 30 Abduction right Shoulder ROM WFL Yes Elbow/Forearm Range of Motion Elbow/Forearm ROM Limitations Comments WNL PT-OP-M Strength Start: 07/14/22 15:52 Freq: Status: Active Protocol: Document 07/19/22 08:12 [facility] (Rec: 07/19/22 10:28 [facility] [id number]) Shoulder Strength Shoulder Manual Muscle Testing Left Comments Not assessed due to recent surgery Right Comments WFL, no MMT PT-OP-Q Treatments Start: 07/14/22 15:52 Freq: Status: Active Protocol: Document 08/29/22 08:50 [facility] (Rec: 08/29/22 09:49 [facility] [id number]) Therapeutic Exercises Supine Exercises serratus punch Reps/Minutes 10x Comments manual guidance, rhythmic stab Supine Exercise Name should flex at 90 Resistance MR Reps/Minutes 12x Comments gentle flex Supine Exercise Name 90 to end range Reps/Minutes 10x IR Supine Exercise Name AAROM to AROM Resistance 1# Equipment Used pillow, towel roll under elbow Reps/Minutes 10x 2 shld ER Supine Exercise Name AAROM to AROM in scapular plane Equipment Used pillow, towel roll Reps/Minutes 10x2 Comments verbal and tactile cues for correct angle Sidelying Exercises shoulder ER Sidelying Exercise Name AAROM Reps/Minutes 10x sleeper stretch Reps/Minutes 3x5 Comments cues for gentle ROM Sitting Exercises shoulder rolls Sitting Exercise Name kianna, unil shoulder ER Side left Equipment Used towel roll, manual guidance, belt around left UE and trunk Reps/Minutes 10x5 Comments manual cues for form, mirror for visual feedback Manual Therapy Treatment Soft Tissue Mobilization rhomboids, subscap Body Location periscapular Mobilization Type Myofascial Release,Strumming, Sustained Pressure Intensity/Depth Moderate biceps, deltoids, UT Mobilization Type Myofascial Release,Strumming Intensity/Depth Moderate Body Position Hooklying scar mob Mobilization Type Instrument Assisted,Strumming Intensity/Depth Moderate Body Position Hooklying Comments pillow under left elbow Joint Mobilizations scapula Direction sup/in/protr/retr Grade II Body Position Sidelying Comments passive PT-OP-R Modalities Start: 07/14/22 15:52 Freq: Status: Active Protocol: Document 08/29/22 08:50 [facility] (Rec: 08/29/22 09:49 [facility] [id number]) Hot Pack/Cold Pack Treatment Cold Pack Location left shoulder Patient Position Hooklying Treatment Duration (minutes) 10 Patient Tolerance Good Comments pillow under left elbow Infrared Treatment Treatment left ant shoulder Duration (Minutes) 6 Dosage (Joules) 42 Body Position Supine Continuous/Pulsed pulsed high Program or Protocal for dec muscle stiffness, chronic, muscle/ligament/ tendon PT-OP-T Assessment and Plan Start: 07/14/22 15:52 Freq: Status: Active Protocol: Document 08/29/22 08:50 [facility] (Rec: 08/29/22 09:49 [facility] [id number]) Physical Therapy Assessment Goals Two Impairment Limited ROM and strength left UE Short Term Goal (STG) Patient to be instructed in progressive HEP to address ROM and strength deficits following post-op protocol from Dr. Burgos 08/22/22: progressing with protocol, patient demonstrates good understanding STG Duration goal met; ongoing Vice President Of Manufacturing Goal (LTG) Patient to be independent and compliant with HEP, following protocol as instructed and demonstrate functional ROM and strength left UE for all usual activities LTG Duration 10/17/22 Three Impairment Poor scar mobility Impairment forward head, rounded shoulders Short Term Goal (STG) Initiate scar mobility when incision fully healed and instruct patient in self- massage 08/22/22: goal met STG Duration 08/24/22 Group Home Goal (LTG) Normalize scar mobility for improved shoulder function LTG Duration 10/17/22 One Impairment Unable to functionally use left UE Impairment UE Quickdash disability questionnaire 54% Short Term Goal (STG) Decrease Quickdash score to no greater than 40% as measure of improved functional use of her shoulder. 1/30/23: goal met STG Duration goal met Vice President Of Manufacturing Goal (LTG) Patient to regain full functional use of her left shoulder including ability to reach overhead and behind her back. Improve Quickdash score to no greater than 15% as measure of improved left shoulder function LTG Duration 10/17/22 Assessment Summary Assessment ROM in scapular plane supine ER 55, IR 45. Flex to 155 passively, 150 actively seated . Continues to progress; Needs manual guidance for shoulder ER sitting but supine with 1# today after training demonstrated improved form for movement and improved arthrokinematics. Physical Therapy Plan Frequency and Duration Frequency of Treatment 2x/Week Duration of treatment (weeks) 12 Plan of Care Start Date 07/19/22 Plan of Care End Date 10/17/22 Therapeutic Interventions Therapeutic Interventions Home Exercise Program,Manual Therapy,Patient/Caregiver Education,Self-Care/Home Management,Soft Tissue Mobilization,Taping, Therapeutic Activities, Therapeutic Exercises Modalities Cold Pack/Ice Massage,Electric Stimulation,Hot Packs, Infrared Therapy,Iontophoresis ,Traction- Mechanical, Ultrasound Next Visit Focus/Plan Next Note Type Treatment Note Next Visit Plan continue PT per protocol. At 9 weeks can start AROM supine FF and elevation in plane of scapula with light weights (1- 3lbs) at varying degrees of trunk elevation. progress to gentle isoto asaf IR and ER sidelying with light eight or with light resistance bands.
--- NOTE | 2022-09-01 15:15 | PT.OTN ---
Current Diagnoses Primary osteoarthritis, left shoulder (09/01/22) Physical Therapy Treatment Note PT-OP-A Visit Information Start: 07/14/22 15:52 Freq: Status: Active Protocol: Document 09/01/22 10:23 [facility] (Rec: 09/01/22 11:22 [facility] [id number]) Out-Patient Physical Therapy Visit Information Visit Information Visit Type Treatment Note Visit Start Time 10:34 Total Visit Minutes 60 Visit Number 13 Number of BARREL HANDLER Visits 0 Evaluation Information Evaluation Date 07/19/22 Precautions Precautions Per protocol 9 wks post-op PT-OP-B Current Condition Start: 07/14/22 15:52 Freq: Status: Active Protocol: Document 08/01/22 08:59 [facility] (Rec: 08/01/22 09:50 [facility] [id number]) Current Condition History of Current Condition Onset Date 06/28/22 Current Complaints left reverse TSA with pain and limited use left UE History of Current Condition L reverse TSA. Has been in for adjustment of sling due to pain. States doctor told her she could do active abduction due to being able to hold her arm up. Surgery by Blaine Burgos. 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 Patient Reported Progress Improving PT-OP-H Neuro Start: 07/14/22 15:52 Freq: Status: Active Protocol: Document 07/19/22 08:12 [facility] (Rec: 07/19/22 10:28 [facility] [id number]) Sensation Evaluation Gross Sensation Gross Sensation WNL PT-OP-J Posture/Palpation/Skin Start: 07/14/22 15:52 Freq: Status: Active Protocol: Document 07/19/22 08:12 [facility] (Rec: 07/19/22 10:28 [facility] [id number]) Posture Evaluation Position Sitting Head/C-Spine Posture Forward Head T-Spine Posture Increased Kyphosis Shoulder Posture (L) Rounded,(R) Rounded Scapula Posture (L) Protracted,(R) Protracted Arm Posture (L) Internally Rotated,(R) Internally Rotated Palpation Assessment Location left [place] Palpation Findings Soft Tissue Tightness,Muscle Guarding,Tenderness Skin Assessment Incisional Assessment Incision Appearance/Comments Healing well, no signs or symptoms of infection. Small scabbed areas still present PT-OP-K Range of Motion Start: 07/14/22 15:52 Freq: Status: Active Protocol: Document 07/19/22 08:12 [facility] (Rec: 07/19/22 10:28 [facility] [id number]) Cervical Spine Range of Motion Cervical Spine Active ROM Limitations Soft Tissue Tightness Comments WFL Shoulder Goniometric Range of Motion Shoulder Left Shoulder ROM WFL No Testing Position Supine Flexion 100 Extension 0 Abduction 75 External Rotation at 45 degrees 30 Abduction right Shoulder ROM WFL Yes Elbow/Forearm Range of Motion Elbow/Forearm ROM Limitations Comments WNL PT-OP-M Strength Start: 07/14/22 15:52 Freq: Status: Active Protocol: Document 07/19/22 08:12 [facility] (Rec: 07/19/22 10:28 [facility] [id number]) Shoulder Strength Shoulder Manual Muscle Testing Left Comments Not assessed due to recent surgery Right Comments WFL, no MMT PT-OP-Q Treatments Start: 07/14/22 15:52 Freq: Status: Active Protocol: Document 09/01/22 10:23 [facility] (Rec: 09/01/22 11:22 [facility] [id number]) Therapeutic Exercises Supine Exercises serratus punch Reps/Minutes 10x Comments manual guidance, rhythmic stab Supine Exercise Name should flex at 90 Resistance MR Reps/Minutes 12x Comments gentle flex Supine Exercise Name 90 to end range Reps/Minutes 10x IR Supine Exercise Name AAROM to AROM Resistance 1# Equipment Used pillow, towel roll under elbow Reps/Minutes 10x 2 shld ER Supine Exercise Name AAROM to AROM in scapular plane Equipment Used pillow, towel roll Reps/Minutes 10x2 Comments verbal and tactile cues for correct angle Sidelying Exercises shoulder ER Sidelying Exercise Name AAROM Reps/Minutes 10x sleeper stretch Reps/Minutes 3x5 Comments cues for gentle ROM Sitting Exercises shld ER Sitting Exercise Name at 90/90 supported on table Reps/Minutes 10xw Comments AROM, mirror for visual cues for correct form shoulder elevation Sitting Exercise Name FF, Y, scaption Reps/Minutes 5x shoulder rolls Sitting Exercise Name kianna, unil shoulder ER Side left Equipment Used towel roll, manual guidance, belt around left UE and trunk Reps/Minutes 10x5 Comments manual cues for form, mirror for visual feedback Manual Therapy Treatment Soft Tissue Mobilization rhomboids, subscap Body Location periscapular Mobilization Type Myofascial Release,Strumming, Sustained Pressure Intensity/Depth Moderate biceps, deltoids, UT Mobilization Type Myofascial Release,Strumming Intensity/Depth Moderate Body Position Hooklying scar mob Mobilization Type Instrument Assisted,Strumming Intensity/Depth Moderate Body Position Hooklying Comments pillow under left elbow Joint Mobilizations scapula Direction sup/in/protr/retr Grade II Body Position Sidelying Comments passive PT-OP-R Modalities Start: 07/14/22 15:52 Freq: Status: Active Protocol: Document 08/29/22 08:50 [facility] (Rec: 08/29/22 09:49 [facility] [id number]) Hot Pack/Cold Pack Treatment Cold Pack Location left shoulder Patient Position Hooklying Treatment Duration (minutes) 10 Patient Tolerance Good Comments pillow under left elbow Infrared Treatment Treatment left ant shoulder Duration (Minutes) 6 Dosage (Joules) 42 Body Position Supine Continuous/Pulsed pulsed high Program or Protocal for dec muscle stiffness, chronic, muscle/ligament/ tendon PT-OP-T Assessment and Plan Start: 07/14/22 15:52 Freq: Status: Active Protocol: Document 09/01/22 10:23 [facility] (Rec: 09/01/22 11:22 [facility] [id number]) Physical Therapy Assessment Goals Two Impairment Limited ROM and strength left UE Short Term Goal (STG) Patient to be instructed in progressive HEP to address ROM and strength deficits following post-op protocol from Dr. Burgos 08/22/22: progressing with protocol, patient demonstrates good understanding STG Duration goal met; ongoing Fpc Goal (LTG) Patient to be independent and compliant with HEP, following protocol as instructed and demonstrate functional ROM and strength left UE for all usual activities LTG Duration 10/17/22 Three Impairment Poor scar mobility Impairment forward head, rounded shoulders Short Term Goal (STG) Initiate scar mobility when incision fully healed and instruct patient in self- massage 08/22/22: goal met STG Duration 08/24/22 Donor Center Technician Goal (LTG) Normalize scar mobility for improved shoulder function LTG Duration 10/17/22 One Impairment Unable to functionally use left UE Impairment UE Quickdash disability questionnaire 54% Short Term Goal (STG) Decrease Quickdash score to no greater than 40% as measure of improved functional use of her shoulder. 08/22/22: goal met STG Duration goal met Donor Center Technician Goal (LTG) Patient to regain full functional use of her left shoulder including ability to reach overhead and behind her back. Improve Quickdash score to no greater than 15% as measure of improved left shoulder function LTG Duration 10/17/22 Progress Towards Goals Progress Towards Goals Progressing Toward Goals Assessment Summary Assessment Continues to progress with improved ER control sitting and supine, still difficulty sidelying. Added shoulder isometrics to HEP; pt preference vs theraband, and either allowed by protocol has done previously, issued HO. Physical Therapy Plan Frequency and Duration Frequency of Treatment 2x/Week Duration of treatment (weeks) 12 Plan of Care Start Date 07/19/22 Plan of Care End Date 10/17/22 Therapeutic Interventions Therapeutic Interventions Home Exercise Program,Manual Therapy,Patient/Caregiver Education,Self-Care/Home Management,Soft Tissue Mobilization,Taping, Therapeutic Activities, Therapeutic Exercises Modalities Cold Pack/Ice Massage,Electric Stimulation,Hot Packs, Infrared Therapy,Iontophoresis ,Traction- Mechanical, Ultrasound Next Visit Focus/Plan Next Note Type Treatment Note Next Visit Plan continue PT per protocol. Progress supine shoulder FF with addition light weights and gradually increase angle toward sitting as noted in protocol.
--- NOTE | 2022-09-05 10:36 | PT.OTN ---
Current Diagnoses Primary osteoarthritis, left shoulder (09/05/22) Physical Therapy Treatment Note PT-OP-A Visit Information Start: 07/14/22 15:52 Freq: Status: Active Protocol: Document 09/05/22 09:47 [facility] (Rec: 09/05/22 10:35 [facility] [id number]) Out-Patient Physical Therapy Visit Information Visit Information Visit Type Treatment Note Visit Start Time 09:45 Visit Stop Time 10:45 Total Visit Minutes 60 Visit Number 14 Number of WIRE WEAVER HELPER Visits 0 Evaluation Information Evaluation Date 07/19/22 Precautions Precautions Per protocol 9 wks post-op PT-OP-B Current Condition Start: 07/14/22 15:52 Freq: Status: Active Protocol: Document 08/01/22 08:59 [facility] (Rec: 08/01/22 09:50 [facility] [id number]) Current Condition History of Current Condition Onset Date 06/28/22 Current Complaints left reverse TSA with pain and limited use left UE History of Current Condition L reverse TSA. Has been in for adjustment of sling due to pain. States doctor told her she could do active abduction due to being able to hold her arm up. Surgery by Blaine Burgos. 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 PT-OP-H Neuro Start: 07/14/22 15:52 Freq: Status: Active Protocol: Document 07/19/22 08:12 [facility] (Rec: 07/19/22 10:28 [facility] [id number]) Sensation Evaluation Gross Sensation Gross Sensation WNL PT-OP-J Posture/Palpation/Skin Start: 07/14/22 15:52 Freq: Status: Active Protocol: Document 07/19/22 08:12 [facility] (Rec: 07/19/22 10:28 [facility] [id number]) Posture Evaluation Position Sitting Head/C-Spine Posture Forward Head T-Spine Posture Increased Kyphosis Shoulder Posture (L) Rounded,(R) Rounded Scapula Posture (L) Protracted,(R) Protracted Arm Posture (L) Internally Rotated,(R) Internally Rotated Palpation Assessment Location left [place] Palpation Findings Soft Tissue Tightness,Muscle Guarding,Tenderness Skin Assessment Incisional Assessment Incision Appearance/Comments Healing well, no signs or symptoms of infection. Small scabbed areas still present PT-OP-K Range of Motion Start: 07/14/22 15:52 Freq: Status: Active Protocol: Document 07/19/22 08:12 [facility] (Rec: 07/19/22 10:28 [facility] [id number]) Cervical Spine Range of Motion Cervical Spine Active ROM Limitations Soft Tissue Tightness Comments WFL Shoulder Goniometric Range of Motion Shoulder Left Shoulder ROM WFL No Testing Position Supine Flexion 100 Extension 0 Abduction 75 External Rotation at 45 degrees 30 Abduction right Shoulder ROM WFL Yes Elbow/Forearm Range of Motion Elbow/Forearm ROM Limitations Comments WNL PT-OP-M Strength Start: 07/14/22 15:52 Freq: Status: Active Protocol: Document 07/19/22 08:12 [facility] (Rec: 07/19/22 10:28 [facility] [id number]) Shoulder Strength Shoulder Manual Muscle Testing Left Comments Not assessed due to recent surgery Right Comments WFL, no MMT PT-OP-Q Treatments Start: 07/14/22 15:52 Freq: Status: Active Protocol: Document 09/05/22 09:47 [facility] (Rec: 09/05/22 10:35 [facility] [id number]) Therapeutic Exercises Supine Exercises IR Supine Exercise Name AAROM to AROM Resistance 1# Equipment Used pillow, towel roll under elbow Reps/Minutes 10x 2 shld ER Supine Exercise Name AAROM to AROM in scapular plane Equipment Used pillow, towel roll Reps/Minutes 10x2 Comments verbal and tactile cues for correct angle Sitting Exercises shld ER Sitting Exercise Name at 90/90 supported on table Reps/Minutes 10xw Comments AROM, mirror for visual cues for correct form shoulder elevation Sitting Exercise Name FF, Y, scaption Reps/Minutes 5x shoulder ER Side left Equipment Used towel roll, manual guidance, belt around left UE and trunk Reps/Minutes 10x5 Comments manual cues for form, mirror for visual feedback Standing Exercises shld ext Resistance L1 TB Reps/Minutes 10x Comments cues for griselda-free shoulder IR/ER Resistance L1 TB Comments cues for technique, pain-free ROM Manual Therapy Treatment Soft Tissue Mobilization rhomboids, subscap Body Location periscapular Mobilization Type Myofascial Release,Strumming, Sustained Pressure Intensity/Depth Moderate biceps, deltoids, UT Mobilization Type Myofascial Release,Strumming Intensity/Depth Moderate Body Position Hooklying scar mob Mobilization Type Instrument Assisted,Strumming Intensity/Depth Moderate Body Position Hooklying Comments pillow under left elbow PT-OP-R Modalities Start: 07/14/22 15:52 Freq: Status: Active Protocol: Document 09/05/22 09:47 [facility] (Rec: 09/05/22 10:36 [facility] [id number]) Hot Pack/Cold Pack Treatment Hot Pack Location left shoulder Patient Position Hooklying Treatment Duration (minutes) 15 Patient Tolerance Good Comments strap PT-OP-T Assessment and Plan Start: 07/14/22 15:52 Freq: Status: Active Protocol: Document 09/05/22 09:47 [facility] (Rec: 09/05/22 10:35 [facility] [id number]) Physical Therapy Assessment Goals Two Impairment Limited ROM and strength left UE Short Term Goal (STG) Patient to be instructed in progressive HEP to address ROM and strength deficits following post-op protocol from Dr. Burgos 08/22/22: progressing with protocol, patient demonstrates good understanding STG Duration goal met; ongoing Direct Service Worker Goal (LTG) Patient to be independent and compliant with HEP, following protocol as instructed and demonstrate functional ROM and strength left UE for all usual activities LTG Duration 10/17/22 Three Impairment Poor scar mobility Impairment forward head, rounded shoulders Short Term Goal (STG) Initiate scar mobility when incision fully healed and instruct patient in self- massage 08/22/22: goal met STG Duration 08/24/22 Direct Service Worker Goal (LTG) Normalize scar mobility for improved shoulder function LTG Duration 10/17/22 One Impairment Unable to functionally use left UE Impairment UE Quickdash disability questionnaire 54% Short Term Goal (STG) Decrease Quickdash score to no greater than 40% as measure of improved functional use of her shoulder. 08/22/22: goal met STG Duration goal met [facility] Goal (LTG) Patient to regain full functional use of her left shoulder including ability to reach overhead and behind her back. Improve Quickdash score to no greater than 15% as measure of improved left shoulder function LTG Duration 10/17/22 Progress Towards Goals Progress Towards Goals Progressing Toward Goals Assessment Summary Assessment Improving functional use of her left UE. Improving shoulder ER though in supine after other ex reported pain with ER, otherwise denied pain today. Cause uncertain Progressed to medium suction device for scar mobilization iwth good tolerance. Dec pain afer treatment. Physical Therapy Plan Frequency and Duration Frequency of Treatment 2x/Week Duration of treatment (weeks) 12 Plan of Care Start Date 07/19/22 Plan of Care End Date 10/17/22 Therapeutic Interventions Therapeutic Interventions Home Exercise Program,Manual Therapy,Patient/Caregiver Education,Self-Care/Home Management,Soft Tissue Mobilization,Taping, Therapeutic Activities, Therapeutic Exercises Modalities Cold Pack/Ice Massage,Electric Stimulation,Hot Packs, Infrared Therapy,Iontophoresis ,Traction- Mechanical, Ultrasound Next Visit Focus/Plan Next Note Type Treatment Note Next Visit Plan continue PT per protocol. Progress supine shoulder FF with addition light weights and gradually increase angle toward sitting as noted in protocol.
--- NOTE | 2022-09-13 16:45 | PT.OTN ---
Current Diagnoses Primary osteoarthritis, left shoulder (09/12/22) Physical Therapy Treatment Note PT-OP-A Visit Information Start: 07/14/22 15:52 Freq: Status: Active Protocol: Document 09/12/22 09:46 [facility] (Rec: 09/12/22 10:31 [facility] [id number]) Out-Patient Physical Therapy Visit Information Visit Information Visit Type Treatment Note Visit Start Time 09:47 Visit Stop Time 10:45 Total Visit Minutes 60 Visit Number 15 Number of SUPPLY CHAIN COORDINATOR Visits 0 Evaluation Information Evaluation Date 07/19/22 Precautions Precautions Per protocol 9 wks post-op PT-OP-B Current Condition Start: 07/14/22 15:52 Freq: Status: Active Protocol: Document 08/01/22 08:59 [facility] (Rec: 08/01/22 09:50 [facility] [id number]) Current Condition History of Current Condition Onset Date 06/28/22 Current Complaints left reverse TSA with pain and limited use left UE History of Current Condition L reverse TSA. Has been in for adjustment of sling due to pain. States doctor told her she could do active abduction due to being able to hold her arm up. Surgery by Blaine Burgos. 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 PT-OP-H Neuro Start: 07/14/22 15:52 Freq: Status: Active Protocol: Document 07/19/22 08:12 [facility] (Rec: 07/19/22 10:28 [facility] [id number]) Sensation Evaluation Gross Sensation Gross Sensation WNL PT-OP-J Posture/Palpation/Skin Start: 07/14/22 15:52 Freq: Status: Active Protocol: Document 07/19/22 08:12 [facility] (Rec: 07/19/22 10:28 [facility] [id number]) Posture Evaluation Position Sitting Head/C-Spine Posture Forward Head T-Spine Posture Increased Kyphosis Shoulder Posture (L) Rounded,(R) Rounded Scapula Posture (L) Protracted,(R) Protracted Arm Posture (L) Internally Rotated,(R) Internally Rotated Palpation Assessment Location left [place] Palpation Findings Soft Tissue Tightness,Muscle Guarding,Tenderness Skin Assessment Incisional Assessment Incision Appearance/Comments Healing well, no signs or symptoms of infection. Small scabbed areas still present PT-OP-K Range of Motion Start: 07/14/22 15:52 Freq: Status: Active Protocol: Document 07/19/22 08:12 [facility] (Rec: 07/19/22 10:28 [facility] [id number]) Cervical Spine Range of Motion Cervical Spine Active ROM Limitations Soft Tissue Tightness Comments WFL Shoulder Goniometric Range of Motion Shoulder Left Shoulder ROM WFL No Testing Position Supine Flexion 100 Extension 0 Abduction 75 External Rotation at 45 degrees 30 Abduction right Shoulder ROM WFL Yes Elbow/Forearm Range of Motion Elbow/Forearm ROM Limitations Comments WNL PT-OP-M Strength Start: 07/14/22 15:52 Freq: Status: Active Protocol: Document 07/19/22 08:12 [facility] (Rec: 07/19/22 10:28 [facility] [id number]) Shoulder Strength Shoulder Manual Muscle Testing Left Comments Not assessed due to recent surgery Right Comments WFL, no MMT PT-OP-Q Treatments Start: 07/14/22 15:52 Freq: Status: Active Protocol: Document 09/12/22 09:46 [facility] (Rec: 09/12/22 10:31 [facility] [id number]) Therapeutic Exercises Supine Exercises IR Supine Exercise Name AAROM to AROM Resistance 1# Equipment Used pillow, towel roll under elbow Reps/Minutes 10x 2 shld ER Supine Exercise Name AAROM to AROM in scapular plane Equipment Used pillow, towel roll Reps/Minutes 10x2 Comments verbal and tactile cues for correct angle Sitting Exercises shld ER Sitting Exercise Name at 90/90 supported on table Reps/Minutes 10xw Comments AROM, mirror for visual cues for correct form shoulder elevation Sitting Exercise Name FF, Y, scaption Reps/Minutes 5x shoulder ER Side left Equipment Used towel roll, manual guidance, belt around left UE and trunk Reps/Minutes 10x5 Comments manual cues for form, mirror for visual feedback pulleys Sitting Exercise Name flex, scaption Side left Reps/Minutes 10x Comments as anthony Standing Exercises shld ext Resistance L1 TB Reps/Minutes 10x Comments cues for griselda-free Manual Therapy Treatment Soft Tissue Mobilization rhomboids, subscap Body Location periscapular Mobilization Type Myofascial Release,Strumming, Sustained Pressure Intensity/Depth Moderate biceps, deltoids, UT Mobilization Type Myofascial Release,Strumming Intensity/Depth Moderate Body Position Hooklying scar mob Mobilization Type Instrument Assisted,Strumming Intensity/Depth Moderate Body Position Hooklying Comments pillow under left elbow PT-OP-R Modalities Start: 07/14/22 15:52 Freq: Status: Active Protocol: Document 09/12/22 09:46 [facility] (Rec: 09/12/22 10:31 [facility] [id number]) Hot Pack/Cold Pack Treatment Hot Pack Location left shoulder Patient Position Hooklying Treatment Duration (minutes) 15 Patient Tolerance Good Comments strap PT-OP-T Assessment and Plan Start: 07/14/22 15:52 Freq: Status: Active Protocol: Document 09/12/22 09:46 [facility] (Rec: 09/12/22 10:31 [facility] [id number]) Physical Therapy Assessment Goals Two Impairment Limited ROM and strength left UE Short Term Goal (STG) Patient to be instructed in progressive HEP to address ROM and strength deficits following post-op protocol from Dr. Burgos 08/22/22: progressing with protocol, patient demonstrates good understanding STG Duration goal met; ongoing Half-Way Goal (LTG) Patient to be independent and compliant with HEP, following protocol as instructed and demonstrate functional ROM and strength left UE for all usual activities LTG Duration 10/17/22 Three Impairment Poor scar mobility Impairment forward head, rounded shoulders Short Term Goal (STG) Initiate scar mobility when incision fully healed and instruct patient in self- massage 08/22/22: goal met STG Duration 08/24/22 Hyster Machine Operator Goal (LTG) Normalize scar mobility for improved shoulder function LTG Duration 10/17/22 One Impairment Unable to functionally use left UE Impairment UE Quickdash disability questionnaire 54% Short Term Goal (STG) Decrease Quickdash score to no greater than 40% as measure of improved functional use of her shoulder. 08/22/22: goal met STG Duration goal met Half-Way Goal (LTG) Patient to regain full functional use of her left shoulder including ability to reach overhead and behind her back. Improve Quickdash score to no greater than 15% as measure of improved left shoulder function LTG Duration 10/17/22 Progress Towards Goals Progress Towards Goals Progressing Toward Goals Assessment Summary Assessment Improved ROM and functional use of left shoulder with min to no pain. Pain only at end range. Physical Therapy Plan Frequency and Duration Frequency of Treatment 2x/Week Duration of treatment (weeks) 12 Plan of Care Start Date 07/19/22 Plan of Care End Date 10/17/22 Therapeutic Interventions Therapeutic Interventions Home Exercise Program,Manual Therapy,Patient/Caregiver Education,Self-Care/Home Management,Soft Tissue Mobilization,Taping, Therapeutic Activities, Therapeutic Exercises Modalities Cold Pack/Ice Massage,Electric Stimulation,Hot Packs, Infrared Therapy,Iontophoresis ,Traction- Mechanical, Ultrasound Next Visit Focus/Plan Next Note Type Treatment Note Next Visit Plan continue PT per protocol. Progress supine shoulder FF with addition light weights and gradually increase angle toward sitting as noted in protocol.
--- NOTE | 2022-09-15 13:55 | PT.OTN ---
Current Diagnoses Primary osteoarthritis, left shoulder (09/15/22) Physical Therapy Treatment Note PT-OP-A Visit Information Start: 07/14/22 15:52 Freq: Status: Active Protocol: Document 09/15/22 09:01 [facility] (Rec: 09/15/22 09:51 [facility] [id number]) Out-Patient Physical Therapy Visit Information Visit Information Visit Type Treatment Note Visit Start Time 09:01 Visit Stop Time 09:54 Total Visit Minutes 53 Visit Number 16 Number of [employer] Visits 0 Evaluation Information Evaluation Date 07/19/22 Precautions Precautions Per protocol 9 wks post-op PT-OP-B Current Condition Start: 07/14/22 15:52 Freq: Status: Active Protocol: Document 08/01/22 08:59 [facility] (Rec: 08/01/22 09:50 [facility] [id number]) Current Condition History of Current Condition Onset Date 06/28/22 Current Complaints left reverse TSA with pain and limited use left UE History of Current Condition L reverse TSA. Has been in for adjustment of sling due to pain. States doctor told her she could do active abduction due to being able to hold her arm up. Surgery by Blaine Burgos. Prior Functional Status Baseline Function- ADL's Independent Baseline Function- Mobility Independent Baseline Function- Gait indep Baseline Function- Work/School volunteer work Baseline Function- Recreation/Hobbies no limitations PT-OP-C Subjective Start: 07/14/22 15:52 Freq: Status: Active Protocol: Document 09/15/22 09:01 [facility] (Rec: 09/15/22 09:51 [facility] [id number]) OP-PT Subjective Patient Comments Patient Comments Using left UE more and more PT-OP-H Neuro Start: 07/14/22 15:52 Freq: Status: Active Protocol: Document 07/19/22 08:12 [facility] (Rec: 07/19/22 10:28 [facility] [id number]) Sensation Evaluation Gross Sensation Gross Sensation WNL PT-OP-J Posture/Palpation/Skin Start: 07/14/22 15:52 Freq: Status: Active Protocol: Document 07/19/22 08:12 [facility] (Rec: 07/19/22 10:28 [facility] [id number]) Posture Evaluation Position Sitting Head/C-Spine Posture Forward Head T-Spine Posture Increased Kyphosis Shoulder Posture (L) Rounded,(R) Rounded Scapula Posture (L) Protracted,(R) Protracted Arm Posture (L) Internally Rotated,(R) Internally Rotated Palpation Assessment Location left [place] Palpation Findings Soft Tissue Tightness,Muscle Guarding,Tenderness Skin Assessment Incisional Assessment Incision Appearance/Comments Healing well, no signs or symptoms of infection. Small scabbed areas still present PT-OP-K Range of Motion Start: 07/14/22 15:52 Freq: Status: Active Protocol: Document 07/19/22 08:12 [facility] (Rec: 07/19/22 10:28 [facility] [id number]) Cervical Spine Range of Motion Cervical Spine Active ROM Limitations Soft Tissue Tightness Comments WFL Shoulder Goniometric Range of Motion Shoulder Left Shoulder ROM WFL No Testing Position Supine Flexion 100 Extension 0 Abduction 75 External Rotation at 45 degrees 30 Abduction right Shoulder ROM WFL Yes Elbow/Forearm Range of Motion Elbow/Forearm ROM Limitations Comments WNL PT-OP-M Strength Start: 07/14/22 15:52 Freq: Status: Active Protocol: Document 07/19/22 08:12 [facility] (Rec: 07/19/22 10:28 [facility] [id number]) Shoulder Strength Shoulder Manual Muscle Testing Left Comments Not assessed due to recent surgery Right Comments WFL, no MMT PT-OP-Q Treatments Start: 07/14/22 15:52 Freq: Status: Active Protocol: Document 09/15/22 09:01 [facility] (Rec: 09/15/22 09:51 [facility] [id number]) Therapeutic Exercises Sidelying Exercises shoulder ER Sidelying Exercise Name AAROM Reps/Minutes 10x sleeper stretch Reps/Minutes 3x5 Comments cues for gentle ROM Sitting Exercises shld ER Sitting Exercise Name at 90/90 supported on table Resistance 1# Reps/Minutes 10x Comments AROM, mirror for visual cues for correct form shoulder elevation Sitting Exercise Name FF, Y, scaption Reps/Minutes 10x Comments mirror for visual feedback shoulder ER Side left Equipment Used towel roll, manual guidance, belt around left UE and trunk Reps/Minutes 10x5 Comments manual cues for form, mirror for visual feedback pulleys Sitting Exercise Name flex, scaption Side left Reps/Minutes 10x Comments as anthony Standing Exercises BODY blade Standing Exercise Name horizontal kianna UE's , vertical fwd/bck, IR/ER Reps/Minutes 30 sec ea shld ext Standing Exercise Name plus row Resistance L1 TB Reps/Minutes 10x Comments cues for griselda-free shoulder IR/ER Resistance L1 TB Comments cues for technique, pain-free ROM Manual Therapy Treatment Soft Tissue Mobilization rhomboids, subscap Body Location periscapular Mobilization Type Myofascial Release,Strumming, Sustained Pressure Intensity/Depth Moderate biceps, deltoids, UT Mobilization Type Myofascial Release,Strumming Intensity/Depth Moderate Body Position Hooklying PT-OP-R Modalities Start: 07/14/22 15:52 Freq: Status: Active Protocol: Document 09/15/22 09:01 [facility] (Rec: 09/15/22 09:51 [facility] [id number]) Hot Pack/Cold Pack Treatment Hot Pack Location left shoulder Patient Position Hooklying Treatment Duration (minutes) 15 Patient Tolerance Good Comments strap PT-OP-T Assessment and Plan Start: 07/14/22 15:52 Freq: Status: Active Protocol: Document 09/15/22 09:01 [facility] (Rec: 09/15/22 09:51 [facility] [id number]) Physical Therapy Assessment Goals Two Impairment Limited ROM and strength left UE Short Term Goal (STG) Patient to be instructed in progressive HEP to address ROM and strength deficits following post-op protocol from Dr. Burgos 08/22/22: progressing with protocol, patient demonstrates good understanding STG Duration goal met; ongoing Snf Goal (LTG) Patient to be independent and compliant with HEP, following protocol as instructed and demonstrate functional ROM and strength left UE for all usual activities LTG Duration 10/17/22 Three Impairment Poor scar mobility Impairment forward head, rounded shoulders Short Term Goal (STG) Initiate scar mobility when incision fully healed and instruct patient in self- massage 08/22/22: goal met STG Duration 08/24/22 Snf Goal (LTG) Normalize scar mobility for improved shoulder function LTG Duration 10/17/22 One Impairment Unable to functionally use left UE Impairment UE Quickdash disability questionnaire 54% Short Term Goal (STG) Decrease Quickdash score to no greater than 40% as measure of improved functional use of her shoulder. 08/22/22: goal met STG Duration goal met Snf Goal (LTG) Patient to regain full functional use of her left shoulder including ability to reach overhead and behind her back. Improve Quickdash score to no greater than 15% as measure of improved left shoulder function LTG Duration 10/17/22 Progress Towards Goals Progress Towards Goals Progressing Toward Goals Assessment Summary Assessment Continues to progress with functional use right UE. Should be ready to progress next session at 12 weeks post- op with further strengthening, stab. Good tolerance for body blade ex today. Physical Therapy Plan Frequency and Duration Frequency of Treatment 2x/Week Duration of treatment (weeks) 12 Plan of Care Start Date 07/19/22 Plan of Care End Date 10/17/22 Therapeutic Interventions Therapeutic Interventions Home Exercise Program,Manual Therapy,Patient/Caregiver Education,Self-Care/Home Management,Soft Tissue Mobilization,Taping, Therapeutic Activities, Therapeutic Exercises Modalities Cold Pack/Ice Massage,Electric Stimulation,Hot Packs, Infrared Therapy,Iontophoresis ,Traction- Mechanical, Ultrasound Next Visit Focus/Plan Next Note Type Treatment Note Next Visit Plan continue PT per protocol. Progress supine shoulder FF with addition light weights and gradually increase angle toward sitting as noted in protocol.
--- NOTE | 2022-09-19 12:19 | PT.OTN ---
Current Diagnoses Primary osteoarthritis, left shoulder (09/19/22) Physical Therapy Treatment Note PT-OP-A Visit Information Start: 07/14/22 15:52 Freq: Status: Active Protocol: Document 09/19/22 09:43 [facility] (Rec: 09/19/22 10:34 [facility] [id number]) Out-Patient Physical Therapy Visit Information Visit Information Visit Type Treatment Note Visit Start Time 09:45 Visit Stop Time 10:31 Total Visit Minutes 46 Visit Number 17 Number of [employer]ENT Visits 0 Evaluation Information Evaluation Date 07/19/22 Precautions Precautions 12 wks post op: max 6 pounds lifting. May start shoulder ext/add behind back PT-OP-B Current Condition Start: 07/14/22 15:52 Freq: Status: Active Protocol: Document 08/01/22 08:59 [facility] (Rec: 08/01/22 09:50 [facility] [id number]) Current Condition History of Current Condition Onset Date 06/28/22 Current Complaints left reverse TSA with pain and limited use left UE History of Current Condition L reverse TSA. Has been in for adjustment of sling due to pain. States doctor told her she could do active abduction due to being able to hold her arm up. Surgery by Blaine Burgos. 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 didn't do much exercise over the weekend due to family issues, busy. Noticing herself reaching up higher into the cupboard PT-OP-H Neuro Start: 07/14/22 15:52 Freq: Status: Active Protocol: Document 07/19/22 08:12 [facility] (Rec: 07/19/22 10:28 [facility] [id number]) Sensation Evaluation Gross Sensation Gross Sensation WNL PT-OP-J Posture/Palpation/Skin Start: 07/14/22 15:52 Freq: Status: Active Protocol: Document 07/19/22 08:12 [facility] (Rec: 07/19/22 10:28 [facility] [id number]) Posture Evaluation Position Sitting Head/C-Spine Posture Forward Head T-Spine Posture Increased Kyphosis Shoulder Posture (L) Rounded,(R) Rounded Scapula Posture (L) Protracted,(R) Protracted Arm Posture (L) Internally Rotated,(R) Internally Rotated Palpation Assessment Location left [place] Palpation Findings Soft Tissue Tightness,Muscle Guarding,Tenderness Skin Assessment Incisional Assessment Incision Appearance/Comments Healing well, no signs or symptoms of infection. Small scabbed areas still present PT-OP-K Range of Motion Start: 07/14/22 15:52 Freq: Status: Active Protocol: Document 07/19/22 08:12 [facility] (Rec: 07/19/22 10:28 [facility] [id number]) Cervical Spine Range of Motion Cervical Spine Active ROM Limitations Soft Tissue Tightness Comments WFL Shoulder Goniometric Range of Motion Shoulder Left Shoulder ROM WFL No Testing Position Supine Flexion 100 Extension 0 Abduction 75 External Rotation at 45 degrees 30 Abduction right Shoulder ROM WFL Yes Elbow/Forearm Range of Motion Elbow/Forearm ROM Limitations Comments WNL PT-OP-M Strength Start: 07/14/22 15:52 Freq: Status: Active Protocol: Document 07/19/22 08:12 [facility] (Rec: 07/19/22 10:28 [facility] [id number]) Shoulder Strength Shoulder Manual Muscle Testing Left Comments Not assessed due to recent surgery Right Comments WFL, no MMT PT-OP-Q Treatments Start: 07/14/22 15:52 Freq: Status: Active Protocol: Document 09/19/22 09:43 [facility] (Rec: 09/19/22 10:34 [facility] [id number]) Therapeutic Exercises Supine Exercises hor ab Resistance L1 TB Reps/Minutes 10x5 flex Supine Exercise Name 90 to end range Resistance L1 TB Reps/Minutes 10x5 Sidelying Exercises shoulder ER Sidelying Exercise Name AROM Reps/Minutes 10x sleeper stretch Reps/Minutes 3x5 Comments cues for gentle ROM Sitting Exercises shld ER Sitting Exercise Name slow throw motion Reps/Minutes 10x Comments AROM, mirror for visual cues for correct form shoulder elevation Sitting Exercise Name FF, Y, scaption Reps/Minutes 10x Comments mirror for visual feedback shoulder ER Side left Equipment Used towel roll, manual guidance, belt around left UE and trunk Reps/Minutes 10x5 Comments manual cues for form, mirror for visual feedback pulleys Sitting Exercise Name flex, scaption Side left Reps/Minutes 10x Comments as anthony Standing Exercises shldr ext Standing Exercise Name kianna and unil Equipment Used wand Reps/Minutes 10x shoulder adduction Equipment Used L1 Reps/Minutes 10x BODY blade Standing Exercise Name horizontal kianna UE's , vertical fwd/bck, IR/ER Reps/Minutes 30 sec ea shld ext Standing Exercise Name plus row Resistance L1 TB Reps/Minutes 10x Comments cues for griselda-free shoulder IR/ER Resistance L1 TB Comments cues for technique, pain-free ROM Manual Therapy Treatment Soft Tissue Mobilization scar mob Mobilization Type Instrument Assisted,Strumming Intensity/Depth Moderate Body Position Hooklying Comments pillow under left elbow Self-Care/Home Management Treatment Education Patient Education Home Exercise Program Other Education issued updated HO PT-OP-R Modalities Start: 07/14/22 15:52 Freq: Status: Active Protocol: Document 09/19/22 09:43 [facility] (Rec: 09/19/22 10:34 [facility] [id number]) Hot Pack/Cold Pack Treatment Hot Pack Comments no time today PT-OP-T Assessment and Plan Start: 07/14/22 15:52 Freq: Status: Active Protocol: Document 09/19/22 09:43 [facility] (Rec: 09/19/22 10:34 [facility] [id number]) Physical Therapy Assessment Goals Two Impairment Limited ROM and strength left UE Short Term Goal (STG) Patient to be instructed in progressive HEP to address ROM and strength deficits following post-op protocol from Dr. Burgos 08/22/22: progressing with protocol, patient demonstrates good understanding STG Duration goal met; ongoing Longterm Goal (LTG) Patient to be independent and compliant with HEP, following protocol as instructed and demonstrate functional ROM and strength left UE for all usual activities LTG Duration 10/17/22 Three Impairment Poor scar mobility Impairment forward head, rounded shoulders Short Term Goal (STG) Initiate scar mobility when incision fully healed and instruct patient in self- massage 08/22/22: goal met STG Duration 08/24/22 Longterm Goal (LTG) Normalize scar mobility for improved shoulder function LTG Duration 10/17/22 One Impairment Unable to functionally use left UE Impairment UE Quickdash disability questionnaire 54% Short Term Goal (STG) Decrease Quickdash score to no greater than 40% as measure of improved functional use of her shoulder. 08/22/22: goal met STG Duration goal met Longterm Goal (LTG) Patient to regain full functional use of her left shoulder including ability to reach overhead and behind her back. Improve Quickdash score to no greater than 15% as measure of improved left shoulder function LTG Duration 10/17/22 Progress Towards Goals Progress Towards Goals Progressing Toward Goals Assessment Summary Assessment Patient now at 12 weeks post- op, can now do shoulder ext/ add/IR behind back; good anthony with wand ext, difficulty with attempt at use of towel for shoulder IR. Low HEP compliance over w/e but still noticing improving functional use right UE. Physical Therapy Plan Frequency and Duration Frequency of Treatment 2x/Week Duration of treatment (weeks) 12 Plan of Care Start Date 07/19/22 Plan of Care End Date 10/17/22 Therapeutic Interventions Therapeutic Interventions Home Exercise Program,Manual Therapy,Patient/Caregiver Education,Self-Care/Home Management,Soft Tissue Mobilization,Taping, Therapeutic Activities, Therapeutic Exercises Modalities Cold Pack/Ice Massage,Electric Stimulation,Hot Packs, Infrared Therapy,Iontophoresis ,Traction- Mechanical, Ultrasound Next Visit Focus/Plan Next Note Type Treatment Note Next Visit Plan Continue progression of ther ex per protocol as tolerated. no more than 6# for lifting.
--- NOTE | 2022-09-22 12:19 | PT.OTN ---
Current Diagnoses Primary osteoarthritis, left shoulder (09/22/22) Physical Therapy Treatment Note PT-OP-A Visit Information Start: 07/14/22 15:52 Freq: Status: Active Protocol: Document 09/22/22 09:46 SAK (Rec: 09/22/22 10:40 [facility] [id number]) Out-Patient Physical Therapy Visit Information Visit Information Visit Type Treatment Note Visit Start Time 09:47 Visit Stop Time 10:42 Total Visit Minutes 55 Visit Number 18 Number of WARD AIDE Visits 0 Evaluation Information Evaluation Date 07/19/22 Precautions Precautions 12 wks post op: max 6 pounds lifting. May start shoulder ext/add behind back PT-OP-B Current Condition Start: 07/14/22 15:52 Freq: Status: Active Protocol: Document 08/01/22 08:59 SAK (Rec: 08/01/22 09:50 SAK [id number]) Current Condition History of Current Condition Onset Date 06/28/22 Current Complaints left reverse TSA with pain and limited use left UE History of Current Condition L reverse TSA. Has been in for adjustment of sling due to pain. States doctor told her she could do active abduction due to being able to hold her arm up. Surgery by Blaine Burgos. 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 PT-OP-H Neuro Start: 07/14/22 15:52 Freq: Status: Active Protocol: Document 07/19/22 08:12 SAK (Rec: 07/19/22 10:28 [facility] [id number]) Sensation Evaluation Gross Sensation Gross Sensation WNL PT-OP-J Posture/Palpation/Skin Start: 07/14/22 15:52 Freq: Status: Active Protocol: Document 07/19/22 08:12 SAK (Rec: 07/19/22 10:28 [facility]AK [id number]) Posture Evaluation Position Sitting Head/C-Spine Posture Forward Head T-Spine Posture Increased Kyphosis Shoulder Posture (L) Rounded,(R) Rounded Scapula Posture (L) Protracted,(R) Protracted Arm Posture (L) Internally Rotated,(R) Internally Rotated Palpation Assessment Location left [place] Palpation Findings Soft Tissue Tightness,Muscle Guarding,Tenderness Skin Assessment Incisional Assessment Incision Appearance/Comments Healing well, no signs or symptoms of infection. Small scabbed areas still present PT-OP-K Range of Motion Start: 07/14/22 15:52 Freq: Status: Active Protocol: Document 07/19/22 08:12 [facility] (Rec: 07/19/22 10:28 [facility] [id number]) Cervical Spine Range of Motion Cervical Spine Active ROM Limitations Soft Tissue Tightness Comments WFL Shoulder Goniometric Range of Motion Shoulder Left Shoulder ROM WFL No Testing Position Supine Flexion 100 Extension 0 Abduction 75 External Rotation at 45 degrees 30 Abduction right Shoulder ROM WFL Yes Elbow/Forearm Range of Motion Elbow/Forearm ROM Limitations Comments WNL PT-OP-M Strength Start: 07/14/22 15:52 Freq: Status: Active Protocol: Document 07/19/22 08:12 [facility] (Rec: 07/19/22 10:28 [facility] [id number]) Shoulder Strength Shoulder Manual Muscle Testing Left Comments Not assessed due to recent surgery Right Comments WFL, no MMT PT-OP-Q Treatments Start: 07/14/22 15:52 Freq: Status: Active Protocol: Document 09/22/22 09:46 [facility] (Rec: 09/22/22 10:40 [facility] [id number]) Cardio Equipment Upper Body Ergometer (UBE) Duration (Minutes) 4 RPM 120 Seat Position 5 Height below shoulder level Therapeutic Exercises Supine Exercises flex Supine Exercise Name 90 to end range Resistance L1 TB Reps/Minutes 10x5 shld ER Supine Exercise Name AAROM to AROM in scapular plane Equipment Used pillow, towel roll Reps/Minutes 10x2 Comments verbal and tactile cues for correct angle Sidelying Exercises open book Reps/Minutes 5x Comments cues fsor segmental, pain-free shoulder ER Sidelying Exercise Name AROM Reps/Minutes 10x sleeper stretch Reps/Minutes 3x5 Comments cues for gentle ROM Sitting Exercises shld ER Sitting Exercise Name slow throw motion Reps/Minutes 10x Comments AROM, mirror for visual cues for correct form shoulder elevation Sitting Exercise Name FF, Y, scaption Reps/Minutes 10x Comments mirror for visual feedback shoulder ER Side left Equipment Used towel roll, manual guidance, belt around left UE and trunk Reps/Minutes 10x5 Comments manual cues for form, mirror for visual feedback pulleys Sitting Exercise Name flex, scaption Side left Reps/Minutes 10x Comments as anthony Standing Exercises shoulder IR Equipment Used strap Reps/Minutes 8x, Comments manual scapular retr shldr ext Standing Exercise Name kianna and unil Equipment Used wand Reps/Minutes 10x shoulder adduction Equipment Used L1 Reps/Minutes 10x shld ext Standing Exercise Name plus row Resistance L1 TB Reps/Minutes 10x Comments cues for griselda-free shoulder IR/ER Resistance L1 TB ER, L2 TB IR Comments cues for technique, pain-free ROM Manual Therapy Treatment Soft Tissue Mobilization scar mob Mobilization Type Instrument Assisted,Strumming Intensity/Depth Moderate Body Position Hooklying Comments pillow under left elbow Joint Mobilizations scapula Direction sup/in/protr/retr Grade II Body Position Sidelying Comments passive PT-OP-R Modalities Start: 07/14/22 15:52 Freq: Status: Active Protocol: Document 09/19/22 09:43 [facility] (Rec: 09/19/22 10:34 [facility] [id number]) Hot Pack/Cold Pack Treatment Hot Pack Comments no time today PT-OP-T Assessment and Plan Start: 07/14/22 15:52 Freq: Status: Active Protocol: Document 09/22/22 09:46 [facility] (Rec: 09/22/22 10:40 [facility] [id number]) Physical Therapy Assessment Goals Two Impairment Limited ROM and strength left UE Short Term Goal (STG) Patient to be instructed in progressive HEP to address ROM and strength deficits following post-op protocol from Dr. Burgos 08/22/22: progressing with protocol, patient demonstrates good understanding STG Duration goal met; ongoing Engine Monitor Goal (LTG) Patient to be independent and compliant with HEP, following protocol as instructed and demonstrate functional ROM and strength left UE for all usual activities LTG Duration 10/17/22 Three Impairment Poor scar mobility Impairment forward head, rounded shoulders Short Term Goal (STG) Initiate scar mobility when incision fully healed and instruct patient in self- massage 08/22/22: goal met STG Duration 08/24/22 Correction Goal (LTG) Normalize scar mobility for improved shoulder function LTG Duration 10/17/22 One Impairment Unable to functionally use left UE Impairment UE Quickdash disability questionnaire 54% Short Term Goal (STG) Decrease Quickdash score to no greater than 40% as measure of improved functional use of her shoulder. 08/22/22: goal met STG Duration goal met Engine Monitor Goal (LTG) Patient to regain full functional use of her left shoulder including ability to reach overhead and behind her back. Improve Quickdash score to no greater than 15% as measure of improved left shoulder function LTG Duration 10/17/22 Progress Towards Goals Progress Towards Goals Progressing Toward Goals Assessment Summary Assessment Patient progressed to use of UBE x 4 min to start treatment with good tolerance. Progressed to L2 TB with all but shoulder ER ex. IR difficult with patient only able to reach lateral hip, updated HEP HO today, encouraged functional use of left UE behind back as able. Physical Therapy Plan Frequency and Duration Frequency of Treatment 2x/Week Duration of treatment (weeks) 12 Plan of Care Start Date 07/19/22 Plan of Care End Date 10/17/22 Therapeutic Interventions Therapeutic Interventions Home Exercise Program,Manual Therapy,Patient/Caregiver Education,Self-Care/Home Management,Soft Tissue Mobilization,Taping, Therapeutic Activities, Therapeutic Exercises Modalities Cold Pack/Ice Massage,Electric Stimulation,Hot Packs, Infrared Therapy,Iontophoresis ,Traction- Mechanical, Ultrasound Next Visit Focus/Plan Next Note Type Treatment Note Next Visit Plan Continue progression of ther ex per protocol as tolerated. no more than 6# for lifting.
--- NOTE | 2022-09-27 17:13 | PT.OTN ---
Current Diagnoses Primary osteoarthritis, left shoulder (09/27/22) Physical Therapy Treatment Note PT-OP-A Visit Information Start: 07/14/22 15:52 Freq: Status: Active Protocol: Document 09/27/22 09:05 [facility] (Rec: 09/27/22 09:48 [facility] [id number]) Out-Patient Physical Therapy Visit Information Visit Information Visit Type Treatment Note Visit Start Time 09:47 Visit Stop Time 10:42 Total Visit Minutes 55 Visit Number 19 Number of TRAPEZE ARTIST Visits 0 Evaluation Information Evaluation Date 07/19/22 Precautions Precautions 12+ wks post op: max 6 pounds lifting. May start shoulder ext/add behind back PT-OP-B Current Condition Start: 07/14/22 15:52 Freq: Status: Active Protocol: Document 08/01/22 08:59 SAK (Rec: 08/01/22 09:50 [facility] [id number]) Current Condition History of Current Condition Onset Date 06/28/22 Current Complaints left reverse TSA with pain and limited use left UE History of Current Condition L reverse TSA. Has been in for adjustment of sling due to pain. States doctor told her she could do active abduction due to being able to hold her arm up. Surgery by Blaine Burgos. 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 PT-OP-H Neuro Start: 07/14/22 15:52 Freq: Status: Active Protocol: Document 07/19/22 08:12 SAK (Rec: 07/19/22 10:28 [facility] [id number]) Sensation Evaluation Gross Sensation Gross Sensation WNL PT-OP-J Posture/Palpation/Skin Start: 07/14/22 15:52 Freq: Status: Active Protocol: Document 07/19/22 08:12 SAK (Rec: 07/19/22 10:28 [facility] [id number]) Posture Evaluation Position Sitting Head/C-Spine Posture Forward Head T-Spine Posture Increased Kyphosis Shoulder Posture (L) Rounded,(R) Rounded Scapula Posture (L) Protracted,(R) Protracted Arm Posture (L) Internally Rotated,(R) Internally Rotated Palpation Assessment Location left [place] Palpation Findings Soft Tissue Tightness,Muscle Guarding,Tenderness Skin Assessment Incisional Assessment Incision Appearance/Comments Healing well, no signs or symptoms of infection. Small scabbed areas still present PT-OP-K Range of Motion Start: 07/14/22 15:52 Freq: Status: Active Protocol: Document 07/19/22 08:12 [facility] (Rec: 07/19/22 10:28 [facility] [id number]) Cervical Spine Range of Motion Cervical Spine Active ROM Limitations Soft Tissue Tightness Comments WFL Shoulder Goniometric Range of Motion Shoulder Left Shoulder ROM WFL No Testing Position Supine Flexion 100 Extension 0 Abduction 75 External Rotation at 45 degrees 30 Abduction right Shoulder ROM WFL Yes Elbow/Forearm Range of Motion Elbow/Forearm ROM Limitations Comments WNL PT-OP-M Strength Start: 07/14/22 15:52 Freq: Status: Active Protocol: Document 07/19/22 08:12 [facility] (Rec: 07/19/22 10:28 [facility] [id number]) Shoulder Strength Shoulder Manual Muscle Testing Left Comments Not assessed due to recent surgery Right Comments WFL, no MMT PT-OP-Q Treatments Start: 07/14/22 15:52 Freq: Status: Active Protocol: Document 09/27/22 09:05 [facility] (Rec: 09/27/22 09:48 [facility] [id number]) Cardio Equipment Upper Body Ergometer (UBE) Duration (Minutes) 4 RPM 120 Seat Position 5 Height below shoulder level Therapeutic Exercises Sitting Exercises shld ER Sitting Exercise Name slow throw motion Reps/Minutes 10x Comments AROM, mirror for visual cues for correct form shoulder elevation Sitting Exercise Name FF, Y, scaption Reps/Minutes 10x Comments mirror for visual feedback shoulder ER Side left Equipment Used towel roll, manual guidance Reps/Minutes 10x5 Comments manual cues for form, mirror for visual feedback pulleys Sitting Exercise Name flex, scaption Side left Reps/Minutes 10x Comments as anthony Standing Exercises doorway stretch Standing Exercise Name low Reps/Minutes 2x30 shoulder IR Equipment Used strap Reps/Minutes 5x, Comments manual scapular retr shldr ext Standing Exercise Name kianna and unil Equipment Used wand Reps/Minutes 10x Comments plus hor add behind back shoulder adduction Equipment Used L1 Reps/Minutes 10x shld ext Standing Exercise Name plus row Resistance L1 TB Reps/Minutes 10x Comments cues for griselda-free shoulder IR/ER Resistance L1 TB ER, L2 TB IR Comments cues for technique, pain-free ROM Manual Therapy Treatment Soft Tissue Mobilization scar mob Mobilization Type Instrument Assisted,Strumming Intensity/Depth Moderate Body Position Hooklying Comments pillow under left elbow PT-OP-R Modalities Start: 07/14/22 15:52 Freq: Status: Active Protocol: Document 09/19/22 09:43 [facility] (Rec: 09/19/22 10:34 [facility] [id number]) Hot Pack/Cold Pack Treatment Hot Pack Comments no time today PT-OP-T Assessment and Plan Start: 07/14/22 15:52 Freq: Status: Active Protocol: Document 09/27/22 09:05 [facility] (Rec: 09/27/22 09:48 [facility] [id number]) Physical Therapy Assessment Goals Two Impairment Limited ROM and strength left UE Short Term Goal (STG) Patient to be instructed in progressive HEP to address ROM and strength deficits following post-op protocol from Dr. Burgos 08/22/22: progressing with protocol, patient demonstrates good understanding STG Duration goal met; ongoing Senior Care Goal (LTG) Patient to be independent and compliant with HEP, following protocol as instructed and demonstrate functional ROM and strength left UE for all usual activities LTG Duration 10/17/22 Three Impairment Poor scar mobility Impairment forward head, rounded shoulders Short Term Goal (STG) Initiate scar mobility when incision fully healed and instruct patient in self- massage 08/22/22: goal met STG Duration 08/24/22 Occupational Health Rn Goal (LTG) Normalize scar mobility for improved shoulder function LTG Duration 10/17/22 One Impairment Unable to functionally use left UE Impairment UE Quickdash disability questionnaire 54% Short Term Goal (STG) Decrease Quickdash score to no greater than 40% as measure of improved functional use of her shoulder. 08/22/22: goal met STG Duration goal met Occupational Health Rn Goal (LTG) Patient to regain full functional use of her left shoulder including ability to reach overhead and behind her back. Improve Quickdash score to no greater than 15% as measure of improved left shoulder function LTG Duration 10/17/22 Progress Towards Goals Progress Towards Goals Progressing Toward Goals Assessment Summary Assessment Reports her doctor was pleased with her progress, continue TSA rehab. Patient continues to benefit from verbal and visual cues for correct performance of exercises, to prevent compensation but her awareness of compensation is improving. Physical Therapy Plan Frequency and Duration Frequency of Treatment 2x/Week Duration of treatment (weeks) 12 Plan of Care Start Date 07/19/22 Plan of Care End Date 10/17/22 Therapeutic Interventions Therapeutic Interventions Home Exercise Program,Manual Therapy,Patient/Caregiver Education,Self-Care/Home Management,Soft Tissue Mobilization,Taping, Therapeutic Activities, Therapeutic Exercises Modalities Cold Pack/Ice Massage,Electric Stimulation,Hot Packs, Infrared Therapy,Iontophoresis ,Traction- Mechanical, Ultrasound Next Visit Focus/Plan Next Note Type Treatment Note Next Visit Plan Continue progression of ther ex per protocol as tolerated. no more than 6# for lifting. ROM measurements
--- NOTE | 2022-09-29 17:19 | PT.OTN ---
Current Diagnoses Primary osteoarthritis, left shoulder (09/29/22) Physical Therapy Treatment Note PT-OP-A Visit Information Start: 07/14/22 15:52 Freq: Status: Active Protocol: Document 09/29/22 09:49 [facility] (Rec: 09/29/22 10:29 [facility] [id number]) Out-Patient Physical Therapy Visit Information Visit Information Visit Type Progress Note Visit Start Time 09:47 Visit Stop Time 10:42 Total Visit Minutes 55 Visit Number 20 Number of [employer] SALES CONSULTANT Visits 0 Evaluation Information Evaluation Date 07/19/22 Precautions Precautions 12+ wks post op: max 6 pounds lifting. May start shoulder ext/add behind back PT-OP-B Current Condition Start: 07/14/22 15:52 Freq: Status: Active Protocol: Document 08/01/22 08:59 [facility]AK (Rec: 08/01/22 09:50 [facility] [id number]) Current Condition History of Current Condition Onset Date 06/28/22 Current Complaints left reverse TSA with pain and limited use left UE History of Current Condition L reverse TSA. Has been in for adjustment of sling due to pain. States doctor told her she could do active abduction due to being able to hold her arm up. Surgery by Blaine Burgos. Prior Functional Status Baseline Function- ADL's Independent Baseline Function- Mobility Independent Baseline Function- Gait indep Baseline Function- Work/School volunteer work Baseline Function- Recreation/Hobbies no limitations PT-OP-C Subjective Start: 07/14/22 15:52 Freq: Status: Active Protocol: Document 09/29/22 09:49 [facility] (Rec: 09/29/22 10:29 [facility] [id number]) OP-PT Subjective Patient Comments Patient Comments Pt. promises she will do her HEP at home today so we can do more manual treatment; poor compliance last couple days PT-OP-H Neuro Start: 07/14/22 15:52 Freq: Status: Active Protocol: Document 07/19/22 08:12 [facility] (Rec: 07/19/22 10:28 [facility] [id number]) Sensation Evaluation Gross Sensation Gross Sensation WNL PT-OP-J Posture/Palpation/Skin Start: 07/14/22 15:52 Freq: Status: Active Protocol: Document 07/19/22 08:12 [facility] (Rec: 07/19/22 10:28 [facility] [id number]) Posture Evaluation Position Sitting Head/C-Spine Posture Forward Head T-Spine Posture Increased Kyphosis Shoulder Posture (L) Rounded,(R) Rounded Scapula Posture (L) Protracted,(R) Protracted Arm Posture (L) Internally Rotated,(R) Internally Rotated Palpation Assessment Location left [place] Palpation Findings Soft Tissue Tightness,Muscle Guarding,Tenderness Skin Assessment Incisional Assessment Incision Appearance/Comments Healing well, no signs or symptoms of infection. Small scabbed areas still present PT-OP-K Range of Motion Start: 07/14/22 15:52 Freq: Status: Active Protocol: Document 07/19/22 08:12 [facility] (Rec: 07/19/22 10:28 [facility] [id number]) Cervical Spine Range of Motion Cervical Spine Active ROM Limitations Soft Tissue Tightness Comments WFL Shoulder Goniometric Range of Motion Shoulder Left Shoulder ROM WFL No Testing Position Supine Flexion 100 Extension 0 Abduction 75 External Rotation at 45 degrees 30 Abduction right Shoulder ROM WFL Yes Elbow/Forearm Range of Motion Elbow/Forearm ROM Limitations Comments WNL PT-OP-M Strength Start: 07/14/22 15:52 Freq: Status: Active Protocol: Document 07/19/22 08:12 [facility] (Rec: 07/19/22 10:28 [facility] [id number]) Shoulder Strength Shoulder Manual Muscle Testing Left Comments Not assessed due to recent surgery Right Comments WFL, no MMT PT-OP-Q Treatments Start: 07/14/22 15:52 Freq: Status: Active Protocol: Document 09/29/22 09:49 [facility] (Rec: 09/29/22 10:29 [facility] [id number]) Cardio Equipment Upper Body Ergometer (UBE) Duration (Minutes) 4 RPM 120 Seat Position 5 Height below shoulder level Therapeutic Exercises Supine Exercises chest press Equipment Used 2# Reps/Minutes 10x hor ab Resistance 2# Reps/Minutes 10x5 serratus punch Equipment Used 2# Reps/Minutes 10x Standing Exercises doorway stretch Standing Exercise Name low Reps/Minutes 2x30 shoulder IR Standing Exercise Name HEP shldr ext Standing Exercise Name HEP shld ext Standing Exercise Name HEP shoulder IR/ER Standing Exercise Name HEP Manual Therapy Treatment Soft Tissue Mobilization biceps, deltoids, [place] Mobilization Type Myofascial Release,Strumming Intensity/Depth Moderate Body Position Hooklying scar mob Mobilization Type Instrument Assisted,Strumming Intensity/Depth Moderate Body Position Hooklying Comments pillow under left elbow PT-OP-R Modalities Start: 07/14/22 15:52 Freq: Status: Active Protocol: Document 09/19/22 09:43 [facility] (Rec: 09/19/22 10:34 [facility] [id number]) Hot Pack/Cold Pack Treatment Hot Pack Comments no time today PT-OP-T Assessment and Plan Start: 07/14/22 15:52 Freq: Status: Active Protocol: Document 09/29/22 09:49 [facility] (Rec: 09/29/22 10:29 [facility] [id number]) Physical Therapy Assessment Goals Two Impairment Limited ROM and strength left UE Short Term Goal (STG) Patient to be instructed in progressive HEP to address ROM and strength deficits following post-op protocol from Dr. Burgos 08/22/22: progressing with protocol, patient demonstrates good understanding STG Duration goal met; ongoing Dynamotor Repairer Goal (LTG) Patient to be independent and compliant with HEP, following protocol as instructed and demonstrate functional ROM and strength left UE for all usual activities LTG Duration 10/17/22 Three Impairment Poor scar mobility Impairment forward head, rounded shoulders Short Term Goal (STG) Initiate scar mobility when incision fully healed and instruct patient in self- massage 08/22/22: goal met STG Duration goal met Mcfp Goal (LTG) Normalize scar mobility for improved shoulder function 09/29/22: goal progress LTG Duration 10/17/22 One Impairment Unable to functionally use left UE Impairment UE Quickdash disability questionnaire 54% Short Term Goal (STG) Decrease Quickdash score to no greater than 40% as measure of improved functional use of her shoulder. 08/22/22: goal met STG Duration goal met Mcfp Goal (LTG) Patient to regain full functional use of her left shoulder including ability to reach overhead and behind her back. Improve Quickdash score to no greater than 15% as measure of improved left shoulder function 09/29/22: good goal progress, continues to improve functional ability to reach overhead and can now do her hair without bending her head forward. REaching behind her back limited as just recently allowed to start this motion at 12 weeks post-op LTG Duration 10/17/22 Assessment Summary Assessment Poor compliance last couple days. Increased emphasis on manual techniques to scar and anterior shoulder with significant decrease in soft tissue tension and tolerance for ROM end of session. Physical Therapy Plan Frequency and Duration Frequency of Treatment 2x/Week Duration of treatment (weeks) 12 Plan of Care Start Date 07/19/22 Plan of Care End Date 10/17/22 Therapeutic Interventions Therapeutic Interventions Home Exercise Program,Manual Therapy,Patient/Caregiver Education,Self-Care/Home Management,Soft Tissue Mobilization,Taping, Therapeutic Activities, Therapeutic Exercises Modalities Cold Pack/Ice Massage,Electric Stimulation,Hot Packs, Infrared Therapy,Iontophoresis ,Traction- Mechanical, Ultrasound Next Visit Focus/Plan Next Note Type Treatment Note Next Visit Plan Continue TSA rehab, emphasis on functional shoulder ext/add /IR for functional use behind her back.
--- NOTE | 2022-10-03 08:11 | PT.OTN ---
Current Diagnoses Primary osteoarthritis, left shoulder (10/03/22) Physical Therapy Treatment Note PT-OP-A Visit Information Start: 07/14/22 15:52 Freq: Status: Active Protocol: Document 10/03/22 09:45 SAK (Rec: 10/03/22 10:31 [facility] [id number]) Out-Patient Physical Therapy Visit Information Visit Information Visit Type Treatment Note Visit Start Time 09:46 Visit Stop Time 10:45 Total Visit Minutes 59 Visit Number 21 Number of CUSTOM SKI MAKER Visits 0 Evaluation Information Evaluation Date 07/19/22 Precautions Precautions 12+ wks post op: max 6 pounds lifting. May start shoulder ext/add behind back PT-OP-B Current Condition Start: 07/14/22 15:52 Freq: Status: Active Protocol: Document 08/01/22 08:59 SAK (Rec: 08/01/22 09:50 SAK [id number]) Current Condition History of Current Condition Onset Date 06/28/22 Current Complaints left reverse TSA with pain and limited use left UE History of Current Condition L reverse TSA. Has been in for adjustment of sling due to pain. States doctor told her she could do active abduction due to being able to hold her arm up. Surgery by Blaine Burgos. Prior Functional Status Baseline Function- ADL's Independent Baseline Function- Mobility Independent Baseline Function- Gait indep Baseline Function- Work/School volunteer work Baseline Function- Recreation/Hobbies no limitations PT-OP-C Subjective Start: 07/14/22 15:52 Freq: Status: Active Protocol: Document 10/03/22 09:45 SAK (Rec: 10/03/22 10:31 [facility] [id number]) OP-PT Subjective Patient Comments Patient Comments No new c/o, improving HEP compliance PT-OP-H Neuro Start: 07/14/22 15:52 Freq: Status: Active Protocol: Document 07/19/22 08:12 SAK (Rec: 07/19/22 10:28 SAK [id number]) Sensation Evaluation Gross Sensation Gross Sensation WNL PT-OP-J Posture/Palpation/Skin Start: 07/14/22 15:52 Freq: Status: Active Protocol: Document 07/19/22 08:12 SAK (Rec: 07/19/22 10:28 SAK [id number]) Posture Evaluation Position Sitting Head/C-Spine Posture Forward Head T-Spine Posture Increased Kyphosis Shoulder Posture (L) Rounded,(R) Rounded Scapula Posture (L) Protracted,(R) Protracted Arm Posture (L) Internally Rotated,(R) Internally Rotated Palpation Assessment Location left [place] Palpation Findings Soft Tissue Tightness,Muscle Guarding,Tenderness Skin Assessment Incisional Assessment Incision Appearance/Comments Healing well, no signs or symptoms of infection. Small scabbed areas still present PT-OP-K Range of Motion Start: 07/14/22 15:52 Freq: Status: Active Protocol: Document 07/19/22 08:12 [facility] (Rec: 07/19/22 10:28 [facility] [id number]) Cervical Spine Range of Motion Cervical Spine Active ROM Limitations Soft Tissue Tightness Comments WFL Shoulder Goniometric Range of Motion Shoulder Left Shoulder ROM WFL No Testing Position Supine Flexion 100 Extension 0 Abduction 75 External Rotation at 45 degrees 30 Abduction right Shoulder ROM WFL Yes Elbow/Forearm Range of Motion Elbow/Forearm ROM Limitations Comments WNL PT-OP-M Strength Start: 07/14/22 15:52 Freq: Status: Active Protocol: Document 07/19/22 08:12 [facility] (Rec: 07/19/22 10:28 [facility] [id number]) Shoulder Strength Shoulder Manual Muscle Testing Left Comments Not assessed due to recent surgery Right Comments WFL, no MMT PT-OP-Q Treatments Start: 07/14/22 15:52 Freq: Status: Active Protocol: Document 10/03/22 09:45 [facility] (Rec: 10/03/22 10:31 [facility] [id number]) Cardio Equipment Upper Body Ergometer (UBE) Duration (Minutes) 4 RPM 120 Seat Position 5 Height below shoulder level Therapeutic Exercises Sitting Exercises scaption Resistance 1# Reps/Minutes 12 shoulder elevation Sitting Exercise Name FF, Y, scaption Resistance 1# Reps/Minutes 10x Comments mirror for visual feedback pulleys Sitting Exercise Name flex, scaption Side left Reps/Minutes 10x Comments as anthony Standing Exercises shldr ext Standing Exercise Name kianna Equipment Used wand Reps/Minutes 10x Comments plus hor add behind back Manual Therapy Treatment Soft Tissue Mobilization rhomboids, subscap Body Location periscapular Mobilization Type Myofascial Release,Strumming, Sustained Pressure Intensity/Depth Moderate biceps, deltoids, UT Mobilization Type Myofascial Release,Strumming Intensity/Depth Moderate Body Position Hooklying scar mob Mobilization Type Instrument Assisted,Strumming Intensity/Depth Moderate Body Position Hooklying Comments pillow under left elbow Joint Mobilizations scapula Direction sup/in/protr/retr Grade II Body Position Sidelying Comments passive PT-OP-R Modalities Start: 07/14/22 15:52 Freq: Status: Active Protocol: Document 10/03/22 09:45 [facility] (Rec: 10/04/22 08:11 [facility] [id number]) Hot Pack/Cold Pack Treatment Hot Pack Treatment Duration (minutes) 15 Patient Tolerance Good Comments no time today PT-OP-T Assessment and Plan Start: 07/14/22 15:52 Freq: Status: Active Protocol: Document 10/03/22 09:45 [facility] (Rec: 10/03/22 10:31 [facility] [id number]) Physical Therapy Assessment Goals Two Impairment Limited ROM and strength left UE Short Term Goal (STG) Patient to be instructed in progressive HEP to address ROM and strength deficits following post-op protocol from Dr. Burgos 08/22/22: progressing with protocol, patient demonstrates good understanding STG Duration goal met; ongoing [facility] Goal (LTG) Patient to be independent and compliant with HEP, following protocol as instructed and demonstrate functional ROM and strength left UE for all usual activities LTG Duration 10/17/22 Three Impairment Poor scar mobility Impairment forward head, rounded shoulders Short Term Goal (STG) Initiate scar mobility when incision fully healed and instruct patient in self- massage 08/22/22: goal met STG Duration goal met [facility]iary Goal (LTG) Normalize scar mobility for improved shoulder function 09/29/22: goal progress LTG Duration 10/17/22 One Impairment Unable to functionally use left UE Impairment UE Quickdash disability questionnaire 54% Short Term Goal (STG) Decrease Quickdash score to no greater than 40% as measure of improved functional use of her shoulder. 08/22/22: goal met STG Duration goal met [facility]iary Goal (LTG) Patient to regain full functional use of her left shoulder including ability to reach overhead and behind her back. Improve Quickdash score to no greater than 15% as measure of improved left shoulder function 09/29/22: good goal progress, continues to improve functional ability to reach overhead and can now do her hair without bending her head forward. REaching behind her back limited as just recently allowed to start this motion at 12 weeks post-op LTG Duration 10/17/22 Assessment Summary Assessment Improving HEP compliance and soft tissue mobility. Increased left shoulder functional IR from lateral hip to posterior hip Physical Therapy Plan Frequency and Duration Frequency of Treatment 2x/Week Duration of treatment (weeks) 12 Plan of Care Start Date 07/19/22 Plan of Care End Date 10/17/22 Therapeutic Interventions Therapeutic Interventions Home Exercise Program,Manual Therapy,Patient/Caregiver Education,Self-Care/Home Management,Soft Tissue Mobilization,Taping, Therapeutic Activities, Therapeutic Exercises Modalities Cold Pack/Ice Massage,Electric Stimulation,Hot Packs, Infrared Therapy,Iontophoresis ,Traction- Mechanical, Ultrasound Next Visit Focus/Plan Next Note Type Treatment Note Next Visit Plan Continue TSA rehab, emphasis on functional shoulder ext/add /IR for functional use behind her back.
--- NOTE | 2022-10-06 09:51 | PT-OP ANOTE ---
cancelled due to exposed to illness
--- NOTE | 2022-10-10 10:30 | PT.OTN ---
Current Diagnoses Primary osteoarthritis, left shoulder (10/10/22) Physical Therapy Treatment Note PT-OP-A Visit Information Start: 07/14/22 15:52 Freq: Status: Active Protocol: Document 10/10/22 09:39 SAK (Rec: 10/10/22 10:29 [facility] [id number]) Out-Patient Physical Therapy Visit Information Visit Information Visit Type Treatment Note Visit Start Time 09:46 Visit Stop Time 10:45 Total Visit Minutes 59 Visit Number 22 Evaluation Information Evaluation Date 07/19/22 Precautions Precautions 12+ wks post op: max 6 pounds lifting. May start shoulder ext/add behind back PT-OP-B Current Condition Start: 07/14/22 15:52 Freq: Status: Active Protocol: Document 08/01/22 08:59 SAK (Rec: 08/01/22 09:50 SAK [id number]) Current Condition History of Current Condition Onset Date 06/28/22 Current Complaints left reverse TSA with pain and limited use left UE History of Current Condition L reverse TSA. Has been in for adjustment of sling due to pain. States doctor told her she could do active abduction due to being able to hold her arm up. Surgery by Blaine Burgos. Prior Functional Status Baseline Function- ADL's Independent Baseline Function- Mobility Independent Baseline Function- Gait indep Baseline Function- Work/School volunteer work Baseline Function- Recreation/Hobbies no limitations PT-OP-C Subjective Start: 07/14/22 15:52 Freq: Status: Active Protocol: Document 10/10/22 09:39 SAK (Rec: 10/10/22 10:29 [facility] [id number]) OP-PT Subjective Patient Comments Patient Comments Sister has had Covid, patient has tested negative as recently as last night, no symptoms. Minimal exercise due to taking care of sister. PT-OP-H Neuro Start: 07/14/22 15:52 Freq: Status: Active Protocol: Document 07/19/22 08:12 SAK (Rec: 07/19/22 10:28 [facility] [id number]) Sensation Evaluation Gross Sensation Gross Sensation WNL PT-OP-J Posture/Palpation/Skin Start: 07/14/22 15:52 Freq: Status: Active Protocol: Document 07/19/22 08:12 SAK (Rec: 07/19/22 10:28 [facility] [id number]) Posture Evaluation Position Sitting Head/C-Spine Posture Forward Head T-Spine Posture Increased Kyphosis Shoulder Posture (L) Rounded,(R) Rounded Scapula Posture (L) Protracted,(R) Protracted Arm Posture (L) Internally Rotated,(R) Internally Rotated Palpation Assessment Location left [place] Palpation Findings Soft Tissue Tightness,Muscle Guarding,Tenderness Skin Assessment Incisional Assessment Incision Appearance/Comments Healing well, no signs or symptoms of infection. Small scabbed areas still present PT-OP-K Range of Motion Start: 07/14/22 15:52 Freq: Status: Active Protocol: Document 07/19/22 08:12 [facility] (Rec: 07/19/22 10:28 [facility] [id number]) Cervical Spine Range of Motion Cervical Spine Active ROM Limitations Soft Tissue Tightness Comments WFL Shoulder Goniometric Range of Motion Shoulder Left Shoulder ROM WFL No Testing Position Supine Flexion 100 Extension 0 Abduction 75 External Rotation at 45 degrees 30 Abduction right Shoulder ROM WFL Yes Elbow/Forearm Range of Motion Elbow/Forearm ROM Limitations Comments WNL PT-OP-M Strength Start: 07/14/22 15:52 Freq: Status: Active Protocol: Document 07/19/22 08:12 [facility] (Rec: 07/19/22 10:28 [facility] [id number]) Shoulder Strength Shoulder Manual Muscle Testing Left Comments Not assessed due to recent surgery Right Comments WFL, no MMT PT-OP-Q Treatments Start: 07/14/22 15:52 Freq: Status: Active Protocol: Document 10/10/22 09:39 [facility] (Rec: 10/10/22 10:29 [facility] [id number]) Cardio Equipment Upper Body Ergometer (UBE) Duration (Minutes) 6 RPM 120 Seat Position 5 Height below shoulder level Therapeutic Exercises Sitting Exercises scaption Resistance 1# Reps/Minutes 12 shoulder elevation Sitting Exercise Name FF, Y, scaption Resistance 1# Reps/Minutes 10x Comments mirror for visual feedback pulleys Sitting Exercise Name flex, scaption Side left Reps/Minutes 10x Comments as anthony Standing Exercises shoulder IR Equipment Used towel Reps/Minutes 10x5 shldr ext Standing Exercise Name kianna Equipment Used wand Reps/Minutes 10x Comments plus hor add behind back PT-OP-R Modalities Start: 07/14/22 15:52 Freq: Status: Active Protocol: Document 10/10/22 09:39 [facility] (Rec: 10/10/22 10:30 [facility] [id number]) Hot Pack/Cold Pack Treatment Hot Pack Location left shoulder Treatment Duration (minutes) 15 Patient Tolerance Good Comments no time today PT-OP-T Assessment and Plan Start: 07/14/22 15:52 Freq: Status: Active Protocol: Document 10/10/22 09:39 SAK (Rec: 10/10/22 10:29 SAK [id number]) Physical Therapy Assessment Goals Two Impairment Limited ROM and strength left UE Short Term Goal (STG) Patient to be instructed in progressive HEP to address ROM and strength deficits following post-op protocol from Dr. uBrgos 08/22/22: progressing with protocol, patient demonstrates good understanding STG Duration goal met; ongoing Land Resource Specialist Goal (LTG) Patient to be independent and compliant with HEP, following protocol as instructed and demonstrate functional ROM and strength left UE for all usual activities LTG Duration 10/17/22 Three Impairment Poor scar mobility Impairment forward head, rounded shoulders Short Term Goal (STG) Initiate scar mobility when incision fully healed and instruct patient in self- massage 08/22/22: goal met STG Duration goal met [facility] Resource Specialist Goal (LTG) Normalize scar mobility for improved shoulder function 09/29/22: goal progress LTG Duration 10/17/22 One Impairment Unable to functionally use left UE Impairment UE Quickdash disability questionnaire 54% Short Term Goal (STG) Decrease Quickdash score to no greater than 40% as measure of improved functional use of her shoulder. 08/22/22: goal met STG Duration goal met [facility] Resource Specialist Goal (LTG) Patient to regain full functional use of her left shoulder including ability to reach overhead and behind her back. Improve Quickdash score to no greater than 15% as measure of improved left shoulder function 09/29/22: good goal progress, continues to improve functional ability to reach overhead and can now do her hair without bending her head forward. REaching behind her back limited as just recently allowed to start this motion at 12 weeks post-op LTG Duration 10/17/22 Assessment Summary Assessment limited ROM primarily IR now, poor compliance to HEP due to sister's illness, only able to reach post/lat left hip with left hand. Physical Therapy Plan Frequency and Duration Frequency of Treatment 2x/Week Duration of treatment (weeks) 12 Plan of Care Start Date 07/19/22 Plan of Care End Date 10/17/22 Therapeutic Interventions Therapeutic Interventions Home Exercise Program,Manual Therapy,Patient/Caregiver Education,Self-Care/Home Management,Soft Tissue Mobilization,Taping, Therapeutic Activities, Therapeutic Exercises Modalities Cold Pack/Ice Massage,Electric Stimulation,Hot Packs, Infrared Therapy,Iontophoresis ,Traction- Mechanical, Ultrasound Next Visit Focus/Plan Next Note Type Treatment Note Next Visit Plan Continue TSA rehab, emphasis on functional shoulder ext/add /IR for functional use behind her back.
--- NOTE | 2022-10-13 10:31 | PT.OTN ---
Current Diagnoses Primary osteoarthritis, left shoulder (10/13/22) Physical Therapy Treatment Note PT-OP-A Visit Information Start: 07/14/22 15:52 Freq: Status: Active Protocol: Document 10/13/22 09:47 SAK (Rec: 10/13/22 10:31 [facility] [id number]) Out-Patient Physical Therapy Visit Information Visit Information Visit Type Treatment Note Visit Start Time 09:48 Visit Stop Time 10:45 Total Visit Minutes 57 Visit Number 23 Evaluation Information Evaluation Date 07/19/22 Precautions Precautions 12+ wks post op: max 6 pounds lifting. May start shoulder ext/add behind back PT-OP-B Current Condition Start: 07/14/22 15:52 Freq: Status: Active Protocol: Document 08/01/22 08:59 SAK (Rec: 08/01/22 09:50 SAK [id number]) Current Condition History of Current Condition Onset Date 06/28/22 Current Complaints left reverse TSA with pain and limited use left UE History of Current Condition L reverse TSA. Has been in for adjustment of sling due to pain. States doctor told her she could do active abduction due to being able to hold her arm up. Surgery by Blaine Burgos. 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 Was able to reach up to turn off a light. Had OMT from Dr. Brown yesterday. Reaching behind her back is coming slowly. PT-OP-H Neuro Start: 07/14/22 15:52 Freq: Status: Active Protocol: Document 07/19/22 08:12 SAK (Rec: 07/19/22 10:28 [facility] [id number]) Sensation Evaluation Gross Sensation Gross Sensation WNL PT-OP-J Posture/Palpation/Skin Start: 07/14/22 15:52 Freq: Status: Active Protocol: Document 07/19/22 08:12 SAK (Rec: 07/19/22 10:28 [facility] [id number]) Posture Evaluation Position Sitting Head/C-Spine Posture Forward Head T-Spine Posture Increased Kyphosis Shoulder Posture (L) Rounded,(R) Rounded Scapula Posture (L) Protracted,(R) Protracted Arm Posture (L) Internally Rotated,(R) Internally Rotated Palpation Assessment Location left [place] Palpation Findings Soft Tissue Tightness,Muscle Guarding,Tenderness Skin Assessment Incisional Assessment Incision Appearance/Comments Healing well, no signs or symptoms of infection. Small scabbed areas still present PT-OP-K Range of Motion Start: 07/14/22 15:52 Freq: Status: Active Protocol: Document 07/19/22 08:12 [facility] (Rec: 07/19/22 10:28 [facility] [id number]) Cervical Spine Range of Motion Cervical Spine Active ROM Limitations Soft Tissue Tightness Comments WFL Shoulder Goniometric Range of Motion Shoulder Left Shoulder ROM WFL No Testing Position Supine Flexion 100 Extension 0 Abduction 75 External Rotation at 45 degrees 30 Abduction right Shoulder ROM WFL Yes Elbow/Forearm Range of Motion Elbow/Forearm ROM Limitations Comments WNL PT-OP-M Strength Start: 07/14/22 15:52 Freq: Status: Active Protocol: Document 07/19/22 08:12 [facility] (Rec: 07/19/22 10:28 [facility] [id number]) Shoulder Strength Shoulder Manual Muscle Testing Left Comments Not assessed due to recent surgery Right Comments WFL, no MMT PT-OP-Q Treatments Start: 07/14/22 15:52 Freq: Status: Active Protocol: Document 10/13/22 09:47 [facility] (Rec: 10/13/22 10:31 [facility] [id number]) Cardio Equipment Upper Body Ergometer (UBE) Duration (Minutes) 4 RPM 120 Seat Position 5 Height below shoulder level Recumbent Stepper (Sci-Fit) Duration (Minutes) 4 Resistance 1 Seat Position 12 Therapeutic Exercises Sitting Exercises pulleys Sitting Exercise Name flex, scaption Side left Reps/Minutes 10x Comments as anthony Manual Therapy Treatment Soft Tissue Mobilization rhomboids, subscap Body Location periscapular Mobilization Type Myofascial Release,Strumming, Sustained Pressure Intensity/Depth Moderate biceps, deltoids, [place] Mobilization Type Myofascial Release,Strumming Intensity/Depth Moderate Body Position Hooklying scar mob Mobilization Type Instrument Assisted,Strumming Intensity/Depth Moderate Body Position Hooklying Comments pillow under left elbow Joint Mobilizations scapula Direction sup/in/protr/retr Grade II Body Position Sidelying Comments passive PT-OP-R Modalities Start: 07/14/22 15:52 Freq: Status: Active Protocol: Document 10/13/22 09:47 [facility] (Rec: 10/13/22 10:31 [facility] [id number]) Hot Pack/Cold Pack Treatment Hot Pack Location left shoulder Treatment Duration (minutes) 15 Patient Tolerance Good Comments no time today PT-OP-T Assessment and Plan Start: 07/14/22 15:52 Freq: Status: Active Protocol: Document 10/13/22 09:47 [facility] (Rec: 10/13/22 10:31 [facility] [id number]) Physical Therapy Assessment Goals Two Impairment Limited ROM and strength left UE Short Term Goal (STG) Patient to be instructed in progressive HEP to address ROM and strength deficits following post-op protocol from Dr. Burgos 08/22/22: progressing with protocol, patient demonstrates good understanding STG Duration goal met; ongoing Jig Grinder Goal (LTG) Patient to be independent and compliant with HEP, following protocol as instructed and demonstrate functional ROM and strength left UE for all usual activities LTG Duration 10/17/22 Three Impairment Poor scar mobility Impairment forward head, rounded shoulders Short Term Goal (STG) Initiate scar mobility when incision fully healed and instruct patient in self- massage 08/22/22: goal met STG Duration goal met Jig Grinder Goal (LTG) Normalize scar mobility for improved shoulder function 09/29/22: goal progress LTG Duration 10/17/22 One Impairment Unable to functionally use left UE Impairment UE Quickdash disability questionnaire 54% Short Term Goal (STG) Decrease Quickdash score to no greater than 40% as measure of improved functional use of her shoulder. 08/22/22: goal met STG Duration goal met [facility] Goal (LTG) Patient to regain full functional use of her left shoulder including ability to reach overhead and behind her back. Improve Quickdash score to no greater than 15% as measure of improved left shoulder function 09/29/22: good goal progress, continues to improve functional ability to reach overhead and can now do her hair without bending her head forward. REaching behind her back limited as just recently allowed to start this motion at 12 weeks post-op LTG Duration 10/17/22 Progress Towards Goals Progress Towards Goals Progressing Toward Goals Assessment Summary Assessment Able to reach to lateral back pocket left shoulder. Also able to reach overhead to insole lip turner light previously unable. Continues to improve Physical Therapy Plan Frequency and Duration Frequency of Treatment 2x/Week Duration of treatment (weeks) 12 Plan of Care Start Date 07/19/22 Plan of Care End Date 10/17/22 Therapeutic Interventions Therapeutic Interventions Home Exercise Program,Manual Therapy,Patient/Caregiver Education,Self-Care/Home Management,Soft Tissue Mobilization,Taping, Therapeutic Activities, Therapeutic Exercises Modalities Cold Pack/Ice Massage,Electric Stimulation,Hot Packs, Infrared Therapy,Iontophoresis ,Traction- Mechanical, Ultrasound Next Visit Focus/Plan Next Note Type Treatment Note Next Visit Plan Continue TSA rehab, emphasis on functional shoulder ext/add /IR for functional use behind her back.
--- NOTE | 2022-10-17 16:15 | PT.OTN ---
Current Diagnoses Primary osteoarthritis, left shoulder (10/17/22) Physical Therapy Treatment Note PT-OP-A Visit Information Start: 07/14/22 15:52 Freq: Status: Active Protocol: Document 10/17/22 09:50 SAK (Rec: 10/17/22 10:32 [facility] [id number]) Out-Patient Physical Therapy Visit Information Visit Information Visit Type Treatment Note Visit Start Time 09:45 Visit Stop Time 10:45 Total Visit Minutes 60 Visit Number 24 Evaluation Information Evaluation Date 07/19/22 Precautions Precautions 12+ wks post op: max 6 pounds lifting. May start shoulder ext/add behind back PT-OP-B Current Condition Start: 07/14/22 15:52 Freq: Status: Active Protocol: Document 08/01/22 08:59 SAK (Rec: 08/01/22 09:50 SAK [id number]) Current Condition History of Current Condition Onset Date 06/28/22 Current Complaints left reverse TSA with pain and limited use left UE History of Current Condition L reverse TSA. Has been in for adjustment of sling due to pain. States doctor told her she could do active abduction due to being able to hold her arm up. Surgery by Blaine Burgos. 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 ADmits to poor compliance to HEP. PT-OP-H Neuro Start: 07/14/22 15:52 Freq: Status: Active Protocol: Document 07/19/22 08:12 SAK (Rec: 07/19/22 10:28 SAK [id number]) Sensation Evaluation Gross Sensation Gross Sensation WNL PT-OP-J Posture/Palpation/Skin Start: 07/14/22 15:52 Freq: Status: Active Protocol: Document 07/19/22 08:12 SAK (Rec: 07/19/22 10:28 SAK [id number]) Posture Evaluation Position Sitting Head/C-Spine Posture Forward Head T-Spine Posture Increased Kyphosis Shoulder Posture (L) Rounded,(R) Rounded Scapula Posture (L) Protracted,(R) Protracted Arm Posture (L) Internally Rotated,(R) Internally Rotated Palpation Assessment Location left [place] Palpation Findings Soft Tissue Tightness,Muscle Guarding,Tenderness Skin Assessment Incisional Assessment Incision Appearance/Comments Healing well, no signs or symptoms of infection. Small scabbed areas still present PT-OP-K Range of Motion Start: 07/14/22 15:52 Freq: Status: Active Protocol: Document 07/19/22 08:12 [facility] (Rec: 07/19/22 10:28 [facility] [id number]) Cervical Spine Range of Motion Cervical Spine Active ROM Limitations Soft Tissue Tightness Comments WFL Shoulder Goniometric Range of Motion Shoulder Left Shoulder ROM WFL No Testing Position Supine Flexion 100 Extension 0 Abduction 75 External Rotation at 45 degrees 30 Abduction right Shoulder ROM WFL Yes Elbow/Forearm Range of Motion Elbow/Forearm ROM Limitations Comments WNL PT-OP-M Strength Start: 07/14/22 15:52 Freq: Status: Active Protocol: Document 07/19/22 08:12 [facility] (Rec: 07/19/22 10:28 [facility] [id number]) Shoulder Strength Shoulder Manual Muscle Testing Left Comments Not assessed due to recent surgery Right Comments WFL, no MMT PT-OP-Q Treatments Start: 07/14/22 15:52 Freq: Status: Active Protocol: Document 10/17/22 09:50 [facility] (Rec: 10/17/22 10:32 [facility] [id number]) Cardio Equipment Upper Body Ergometer (UBE) Duration (Minutes) 4 RPM 120 Seat Position 5 Height shoulder level Therapeutic Exercises Supine Exercises shld ER Supine Exercise Name resisted Resistance L1 TB Equipment Used pillow, towel roll Reps/Minutes 10x2 Comments verbal and tactile cues for correct angle PROM left shoulder Side left Reps/Minutes 10x flex, abd, ER, IR, hor ab Comments pain-free ROM, manual by PT Sidelying Exercises shoulder ER Sidelying Exercise Name AROM Reps/Minutes 10x sleeper stretch Reps/Minutes 3x5 Comments cues for gentle ROM Sitting Exercises trunk rotation Reps/Minutes 3x shld ER Sitting Exercise Name slow throw motion Reps/Minutes 10x Comments AROM, mirror for visual cues for correct form pulleys Sitting Exercise Name flex, scaption Side left Reps/Minutes 10x Comments as anthony Standing Exercises doorway stretch Standing Exercise Name low Reps/Minutes 2x30 Comments cues for pain-free angle and intensity shoulder IR Reps/Minutes 10x5 Comments manual Manual Therapy Treatment Soft Tissue Mobilization rhomboids, subscap Body Location periscapular Mobilization Type Myofascial Release,Strumming, Sustained Pressure Intensity/Depth Moderate biceps, deltoids, UT Mobilization Type Myofascial Release,Strumming Intensity/Depth Moderate Body Position Hooklying scar mob Mobilization Type Instrument Assisted,Strumming Intensity/Depth Moderate Body Position Hooklying Comments pillow under left elbow Joint Mobilizations GH Direction post, ant, inf Grade II Body Position Supine PT-OP-R Modalities Start: 07/14/22 15:52 Freq: Status: Active Protocol: Document 10/13/22 09:47 SAK (Rec: 10/13/22 10:31 SAK [id number]) Hot Pack/Cold Pack Treatment Hot Pack Location left shoulder Treatment Duration (minutes) 15 Patient Tolerance Good Comments no time today PT-OP-T Assessment and Plan Start: 07/14/22 15:52 Freq: Status: Active Protocol: Document 10/17/22 09:50 SAK (Rec: 10/17/22 10:32 SAK [id number]) Physical Therapy Assessment Goals Two Impairment Limited ROM and strength left UE Short Term Goal (STG) Patient to be instructed in progressive HEP to address ROM and strength deficits following post-op protocol from Dr. Burgos 08/22/22: progressing with protocol, patient demonstrates good understanding STG Duration goal met; ongoing Kiln Setter Goal (LTG) Patient to be independent and compliant with HEP, following protocol as instructed and demonstrate functional ROM and strength left UE for all usual activities LTG Duration 10/17/22 Three Impairment Poor scar mobility Impairment forward head, rounded shoulders Short Term Goal (STG) Initiate scar mobility when incision fully healed and instruct patient in self- massage 08/22/22: goal met STG Duration goal met Jail Goal (LTG) Normalize scar mobility for improved shoulder function 09/29/22: goal progress LTG Duration 10/17/22 One Impairment Unable to functionally use left UE Impairment UE Quickdash disability questionnaire 54% Short Term Goal (STG) Decrease Quickdash score to no greater than 40% as measure of improved functional use of her shoulder. 08/22/22: goal met STG Duration goal met Kiln Setter Goal (LTG) Patient to regain full functional use of her left shoulder including ability to reach overhead and behind her back. Improve Quickdash score to no greater than 15% as measure of improved left shoulder function 09/29/22: good goal progress, continues to improve functional ability to reach overhead and can now do her hair without bending her head forward. REaching behind her back limited as just recently allowed to start this motion at 12 weeks post-op LTG Duration 10/17/22 Progress Towards Goals Progress Towards Goals Progressing Toward Goals Assessment Summary Assessment most difficulty with reaching behind her back, pain anterior . Gentle joint mobs, passive ROM with cues for retraction at shoulder instead of ant GH translation. Physical Therapy Plan Frequency and Duration Frequency of Treatment 2x/Week Duration of treatment (weeks) 12 Plan of Care Start Date 07/19/22 Plan of Care End Date 10/17/22 Therapeutic Interventions Therapeutic Interventions Home Exercise Program,Manual Therapy,Patient/Caregiver Education,Self-Care/Home Management,Soft Tissue Mobilization,Taping, Therapeutic Activities, Therapeutic Exercises Modalities Cold Pack/Ice Massage,Electric Stimulation,Hot Packs, Infrared Therapy,Iontophoresis ,Traction- Mechanical, Ultrasound Next Visit Focus/Plan Next Note Type Treatment Note Next Visit Plan Emphasis on shoulder strengthening and ROM especially shoulder IR. Patient to see her doctor next week, to discuss anticipated shoulder IR ROM expected.
--- NOTE | 2022-10-17 16:16 | PT.OTN ---
Current Diagnoses Primary osteoarthritis, left shoulder (10/17/22) Physical Therapy Treatment Note PT-OP-A Visit Information Start: 07/14/22 15:52 Freq: Status: Active Protocol: Document 10/17/22 09:50 SAK (Rec: 10/17/22 10:32 [facility] [id number]) Out-Patient Physical Therapy Visit Information Visit Information Visit Type Treatment Note Visit Start Time 09:45 Visit Stop Time 10:45 Total Visit Minutes 60 Visit Number 24 Evaluation Information Evaluation Date 07/19/22 Precautions Precautions 12+ wks post op: max 6 pounds lifting. May start shoulder ext/add behind back PT-OP-B Current Condition Start: 07/14/22 15:52 Freq: Status: Active Protocol: Document 08/01/22 08:59 SAK (Rec: 08/01/22 09:50 SAK [id number]) Current Condition History of Current Condition Onset Date 06/28/22 Current Complaints left reverse TSA with pain and limited use left UE History of Current Condition L reverse TSA. Has been in for adjustment of sling due to pain. States doctor told her she could do active abduction due to being able to hold her arm up. Surgery by Blaine Burgos. 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 ADmits to poor compliance to HEP. PT-OP-H Neuro Start: 07/14/22 15:52 Freq: Status: Active Protocol: Document 07/19/22 08:12 SAK (Rec: 07/19/22 10:28 SAK [id number]) Sensation Evaluation Gross Sensation Gross Sensation WNL PT-OP-J Posture/Palpation/Skin Start: 07/14/22 15:52 Freq: Status: Active Protocol: Document 07/19/22 08:12 SAK (Rec: 07/19/22 10:28 SAK [id number]) Posture Evaluation Position Sitting Head/C-Spine Posture Forward Head T-Spine Posture Increased Kyphosis Shoulder Posture (L) Rounded,(R) Rounded Scapula Posture (L) Protracted,(R) Protracted Arm Posture (L) Internally Rotated,(R) Internally Rotated Palpation Assessment Location left [place] Palpation Findings Soft Tissue Tightness,Muscle Guarding,Tenderness Skin Assessment Incisional Assessment Incision Appearance/Comments Healing well, no signs or symptoms of infection. Small scabbed areas still present PT-OP-K Range of Motion Start: 07/14/22 15:52 Freq: Status: Active Protocol: Document 07/19/22 08:12 [facility] (Rec: 07/19/22 10:28 [facility] [id number]) Cervical Spine Range of Motion Cervical Spine Active ROM Limitations Soft Tissue Tightness Comments WFL Shoulder Goniometric Range of Motion Shoulder Left Shoulder ROM WFL No Testing Position Supine Flexion 100 Extension 0 Abduction 75 External Rotation at 45 degrees 30 Abduction right Shoulder ROM WFL Yes Elbow/Forearm Range of Motion Elbow/Forearm ROM Limitations Comments WNL PT-OP-M Strength Start: 07/14/22 15:52 Freq: Status: Active Protocol: Document 07/19/22 08:12 [facility] (Rec: 07/19/22 10:28 [facility] [id number]) Shoulder Strength Shoulder Manual Muscle Testing Left Comments Not assessed due to recent surgery Right Comments WFL, no MMT PT-OP-Q Treatments Start: 07/14/22 15:52 Freq: Status: Active Protocol: Document 10/17/22 09:50 [facility] (Rec: 10/17/22 10:32 [facility] [id number]) Cardio Equipment Upper Body Ergometer (UBE) Duration (Minutes) 4 RPM 120 Seat Position 5 Height shoulder level Therapeutic Exercises Supine Exercises shld ER Supine Exercise Name resisted Resistance L1 TB Equipment Used pillow, towel roll Reps/Minutes 10x2 Comments verbal and tactile cues for correct angle PROM left shoulder Side left Reps/Minutes 10x flex, abd, ER, IR, hor ab Comments pain-free ROM, manual by PT Sidelying Exercises shoulder ER Sidelying Exercise Name AROM Reps/Minutes 10x sleeper stretch Reps/Minutes 3x5 Comments cues for gentle ROM Sitting Exercises trunk rotation Reps/Minutes 3x shld ER Sitting Exercise Name slow throw motion Reps/Minutes 10x Comments AROM, mirror for visual cues for correct form pulleys Sitting Exercise Name flex, scaption Side left Reps/Minutes 10x Comments as anthony Standing Exercises doorway stretch Standing Exercise Name low Reps/Minutes 2x30 Comments cues for pain-free angle and intensity shoulder IR Reps/Minutes 10x5 Comments manual Manual Therapy Treatment Soft Tissue Mobilization rhomboids, subscap Body Location periscapular Mobilization Type Myofascial Release,Strumming, Sustained Pressure Intensity/Depth Moderate biceps, deltoids, UT Mobilization Type Myofascial Release,Strumming Intensity/Depth Moderate Body Position Hooklying scar mob Mobilization Type Instrument Assisted,Strumming Intensity/Depth Moderate Body Position Hooklying Comments pillow under left elbow Joint Mobilizations GH Direction post, ant, inf Grade II Body Position Supine PT-OP-R Modalities Start: 07/14/22 15:52 Freq: Status: Active Protocol: Document 10/17/22 09:50 SAK (Rec: 10/17/22 16:16 [facility] [id number]) Hot Pack/Cold Pack Treatment Hot Pack Location left shoulder Treatment Duration (minutes) 15 Patient Tolerance Good PT-OP-T Assessment and Plan Start: 07/14/22 15:52 Freq: Status: Active Protocol: Document 10/17/22 09:50 SAK (Rec: 10/17/22 10:32 SAK [id number]) Physical Therapy Assessment Goals Two Impairment Limited ROM and strength left UE Short Term Goal (STG) Patient to be instructed in progressive HEP to address ROM and strength deficits following post-op protocol from Dr. Burgos 08/22/22: progressing with protocol, patient demonstrates good understanding STG Duration goal met; ongoing Intermediate Goal (LTG) Patient to be independent and compliant with HEP, following protocol as instructed and demonstrate functional ROM and strength left UE for all usual activities LTG Duration 10/17/22 Three Impairment Poor scar mobility Impairment forward head, rounded shoulders Short Term Goal (STG) Initiate scar mobility when incision fully healed and instruct patient in self- massage 08/22/22: goal met STG Duration goal met Intermediate Goal (LTG) Normalize scar mobility for improved shoulder function 09/29/22: goal progress LTG Duration 10/17/22 One Impairment Unable to functionally use left UE Impairment UE Quickdash disability questionnaire 54% Short Term Goal (STG) Decrease Quickdash score to no greater than 40% as measure of improved functional use of her shoulder. 08/22/22: goal met STG Duration goal met Intermediate Goal (LTG) Patient to regain full functional use of her left shoulder including ability to reach overhead and behind her back. Improve Quickdash score to no greater than 15% as measure of improved left shoulder function 09/29/22: good goal progress, continues to improve functional ability to reach overhead and can now do her hair without bending her head forward. REaching behind her back limited as just recently allowed to start this motion at 12 weeks post-op LTG Duration 10/17/22 Progress Towards Goals Progress Towards Goals Progressing Toward Goals Assessment Summary Assessment most difficulty with reaching behind her back, pain anterior . Gentle joint mobs, passive ROM with cues for retraction at shoulder instead of ant GH translation. Physical Therapy Plan Frequency and Duration Frequency of Treatment 2x/Week Duration of treatment (weeks) 12 Plan of Care Start Date 07/19/22 Plan of Care End Date 10/17/22 Therapeutic Interventions Therapeutic Interventions Home Exercise Program,Manual Therapy,Patient/Caregiver Education,Self-Care/Home Management,Soft Tissue Mobilization,Taping, Therapeutic Activities, Therapeutic Exercises Modalities Cold Pack/Ice Massage,Electric Stimulation,Hot Packs, Infrared Therapy,Iontophoresis ,Traction- Mechanical, Ultrasound Next Visit Focus/Plan Next Note Type Treatment Note Next Visit Plan Emphasis on shoulder strengthening and ROM especially shoulder IR. Patient to see her doctor next week, to discuss anticipated shoulder IR ROM expected.
--- NOTE | 2022-10-20 13:59 | PT.OTRE ---
Current Diagnoses Primary osteoarthritis, left shoulder (10/20/22) Past Medical History (Last Updated 08/26/22 @ 10:25 by Cecilia Brown DO) Asthma Cataract Chronic back pain CTS (carpal tunnel syndrome) JOHNSON (dyspnea on exertion) Essential hypertension (04/25/17) Greater trochanteric bursitis of left hip Hypercalcemia Hyperlipidemia Hyperparathyroidism Hypertension Left hamstring muscle strain Measles Obesity Osteoarthritis Strain of adductor nando muscle Strain of right psoas muscle Supraspinatus tendon tear Tachycardia determined by examination of pulse Varicose veins of left lower extremity Surgical History (Last Updated 09/21/22 @ 14:37 by Cecilia Brown DO) Anesthesia H/O colonoscopy with polypectomy (~10/2020) History of knee replacement (2016) History of spinal fusion (06/2009) History of spinal fusion (2011) Status post parathyroidectomy (2015) Status post tonsillectomy and adenoidectomy (1947) Visit Care Team Role Provider Type Cecilia Brown DO Primary Care Provider Physician Specialty: Medical Address: [address] [place] [address], [id number] Email: [email or web address] Isabell Fung DO Family Provider Physician Specialty: Family Practice Address: [address] [place] [address], [id number] Email: [email or web address] Blaine Burgos DO Attending Provider Non-Staff Referring Provider Specialty: Orthopedic Surgery Address: [address] [place] [address], [phone] Email: Physical Therapy Re-Evaluation PT-OP-A Visit Information Start: 07/14/22 15:52 Freq: Status: Active Protocol: Document 10/20/22 09:45 RALF (Rec: 10/20/22 10:31 RALF [id number]) Out-Patient Physical Therapy Visit Information Visit Information Visit Type Treatment Note Visit Start Time 09:45 Visit Stop Time 10:45 Total Visit Minutes 60 Visit Number 25 Precautions Precautions 12+ wks post op: max 6 pounds lifting. May start shoulder ext/add behind back PT-OP-B Current Condition Start: 07/14/22 15:52 Freq: Status: Active Protocol: Document 08/01/22 08:59 SAK (Rec: 08/01/22 09:50 SAK [id number]) Current Condition History of Current Condition Onset Date 06/28/22 Current Complaints left reverse TSA with pain and limited use left UE History of Current Condition L reverse TSA. Has been in for adjustment of sling due to pain. States doctor told her she could do active abduction due to being able to hold her arm up. Surgery by Blaine Burgos. 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 Getting ready for trip in 1 week. PT-OP-H Neuro Start: 07/14/22 15:52 Freq: Status: Active Protocol: Document 07/19/22 08:12 SAK (Rec: 07/19/22 10:28 [facility] [id number]) Sensation Evaluation Gross Sensation Gross Sensation WNL PT-OP-J Posture/Palpation/Skin Start: 07/14/22 15:52 Freq: Status: Active Protocol: Document 07/19/22 08:12 SAK (Rec: 07/19/22 10:28 [facility] [id number]) Posture Evaluation Position Sitting Head/C-Spine Posture Forward Head T-Spine Posture Increased Kyphosis Shoulder Posture (L) Rounded,(R) Rounded Scapula Posture (L) Protracted,(R) Protracted Arm Posture (L) Internally Rotated,(R) Internally Rotated Palpation Assessment Location left UT Palpation Findings Soft Tissue Tightness,Muscle Guarding,Tenderness Skin Assessment Incisional Assessment Incision Appearance/Comments Healing well, no signs or symptoms of infection. Small scabbed areas still present PT-OP-K Range of Motion Start: 07/14/22 15:52 Freq: Status: Active Protocol: Document 07/19/22 08:12 SAK (Rec: 07/19/22 10:28 [facility] [id number]) Cervical Spine Range of Motion Cervical Spine Active ROM Limitations Soft Tissue Tightness Comments WFL Shoulder Goniometric Range of Motion Shoulder Measured in Degrees Left Shoulder ROM WFL No Testing Position Supine Flexion 100 Extension 0 Abduction 75 External Rotation at 45 degrees 30 Abduction right Shoulder ROM WFL Yes Elbow/Forearm Range of Motion Elbow/Forearm ROM Limitations Comments WNL PT-OP-M Strength Start: 07/14/22 15:52 Freq: Status: Active Protocol: Document 07/19/22 08:12 [facility] (Rec: 07/19/22 10:28 [facility] [id number]) Shoulder Strength Shoulder Manual Muscle Testing Left Comments Not assessed due to recent surgery Right Comments WFL, no MMT PT-OP-Q Treatments Start: 07/14/22 15:52 Freq: Status: Active Protocol: Document 10/20/22 09:45 [facility] (Rec: 10/20/22 10:31 [facility] [id number]) Cardio Equipment Upper Body Ergometer (UBE) Duration (Minutes) 5 RPM 120 Seat Position 5 Height shoulder level Therapeutic Exercises Supine Exercises shld ER Supine Exercise Name resisted Resistance L1 TB Equipment Used pillow, towel roll Reps/Minutes 10x2 Comments verbal and tactile cues for correct angle PROM left shoulder Side left Reps/Minutes 10x flex, abd, ER, IR, hor ab Comments pain-free ROM, manual by PT Sidelying Exercises shoulder ER Sidelying Exercise Name AROM Reps/Minutes 10x sleeper stretch Reps/Minutes 3x5 Comments cues for gentle ROM Sitting Exercises shld ER Sitting Exercise Name slow throw motion Reps/Minutes 10x Comments AROM, mirror for visual cues for correct form pulleys Sitting Exercise Name flex, scaption Side left Reps/Minutes 10x Comments as anthony Standing Exercises throw motion Resistance L2 TB doorway stretch Standing Exercise Name low Reps/Minutes 2x30 Comments cues for pain-free angle and intensity shoulder IR Equipment Used L1 TB Reps/Minutes 10x5 Manual Therapy Treatment Soft Tissue Mobilization rhomboids, subscap Body Location periscapular Mobilization Type Myofascial Release,Strumming, Sustained Pressure Intensity/Depth Moderate biceps, deltoids, UT Mobilization Type Myofascial Release,Strumming Intensity/Depth Moderate Body Position Hooklying scar mob Mobilization Type Instrument Assisted,Strumming Intensity/Depth Moderate Body Position Hooklying Comments pillow under left elbow Joint Mobilizations GH Direction post, ant, inf Grade II Body Position Supine Self-Care/Home Management Treatment Education Other Education stressed importance of increased compliance to HEP PT-OP-R Modalities Start: 07/14/22 15:52 Freq: Status: Active Protocol: Document 10/17/22 09:50 SAK (Rec: 10/17/22 16:16 SAK [id number]) Hot Pack/Cold Pack Treatment Hot Pack Location left shoulder Treatment Duration (minutes) 15 Patient Tolerance Good PT-OP-T Assessment and Plan Start: 07/14/22 15:52 Freq: Status: Active Protocol: Document 10/20/22 09:45 SAK (Rec: 10/20/22 10:31 SAK [id number]) Physical Therapy Assessment Goals Two Impairment Limited ROM and strength left UE Short Term Goal (STG) Patient to be instructed in progressive HEP to address ROM and strength deficits following post-op protocol from Dr. Burgos 08/22/22: progressing with protocol, patient demonstrates good understanding STG Duration goal met; ongoing progression. Residency Program Coordinator Goal (LTG) Patient to be independent and compliant with HEP, following protocol as instructed and demonstrate functional ROM and strength left UE for all usual activities 10/20/22: has achieved functional ROM except unable to reach behind her back sufficient to perform ADL's. Strength continues to improve. LTG Duration 12/20/22 Three Impairment Poor scar mobility Impairment forward head, rounded shoulders Short Term Goal (STG) Initiate scar mobility when incision fully healed and instruct patient in self- massage 08/22/22: goal met STG Duration goal met Residency Program Coordinator Goal (LTG) Normalize scar mobility for improved shoulder function 09/29/22: goal progress 10/20/22: goal progress, but with moderate restriction LTG Duration 12/20/22 One Impairment Unable to functionally use left UE Impairment UE Quickdash disability questionnaire 54% Short Term Goal (STG) Decrease Quickdash score to no greater than 40% as measure of improved functional use of her shoulder. 08/22/22: goal met STG Duration goal met Penitentiary Goal (LTG) Patient to regain full functional use of her left shoulder including ability to reach overhead and behind her back. Improve Quickdash score to no greater than 15% as measure of improved left shoulder function 09/29/22: good goal progress, continues to improve functional ability to reach overhead and can now do her hair without bending her head forward. REaching behind her back limited as just recently allowed to start this motion at 12 weeks post-op 10/20/22: not retested this date. Patient has continued to report improved functional use but frustrated by limitations in reaching behind her back. LTG Duration 12/10/22 Progress Towards Goals Progress Towards Goals Progressing Toward Goals Assessment Summary Assessment Patient making steady progress with left shoulder ROM and strength, most limited in reaching behind her back; not yet functional ROM for ADL's. Compliance to HEP is fair. Would benefit from further PT to assure she achieves functional ROM espescially behind her back and improved scapular stabilization and strength of posterior chain musculature for shoulder function. Physical Therapy Plan Frequency and Duration Frequency of Treatment 2x/Week Duration of treatment (weeks) 6 Plan of Care Start Date 10/17/22 Plan of Care End Date 12/10/22 Therapeutic Interventions Therapeutic Interventions Home Exercise Program,Manual Therapy,Patient/Caregiver Education,Self-Care/Home Management,Soft Tissue Mobilization,Taping, Therapeutic Activities, Therapeutic Exercises Modalities Cold Pack/Ice Massage,Electric Stimulation,Hot Packs, Infrared Therapy,Iontophoresis ,Traction- Mechanical, Ultrasound Next Visit Focus/Plan Next Note Type Treatment Note Next Visit Plan Emphasis on shoulder strengthening and ROM especially shoulder IR. Patient to see her doctor next week, to discuss anticipated shoulder IR ROM expected.
--- NOTE | 2022-10-20 14:00 | PT.OPPOC ---
Physical, Occupational & Speech Therapy At [facility] Current Diagnoses Primary osteoarthritis, left shoulder (10/20/22) Visit Care Team Role Provider Type Cecilia Brown DO Primary Care Provider Physician Specialty: Medical Address: [address] [place] [address], [address], [place], [address] Email: [email or web address] Isabell Fung DO Family Provider Physician Specialty: Family Practice Address: [address] [place] [address], [address], [place], [address] Email: [email or web address] Blaine Burgos DO Attending Provider Non-Staff Referring Provider Specialty: Orthopedic Surgery Address: [address] [place] [address], [id number] Email: Plan Of Care PT-OP-T Assessment and Plan Start: 07/14/22 15:52 Freq: Status: Active Protocol: Document 10/20/22 09:45 SAK (Rec: 10/20/22 10:31 SAK [id number]) Physical Therapy Assessment Goals Two Impairment Limited ROM and strength left UE Short Term Goal (STG) Patient to be instructed in progressive HEP to address ROM and strength deficits following post-op protocol from Dr. Burgos 08/22/22: progressing with protocol, patient demonstrates good understanding STG Duration goal met; ongoing progression. Advertising Internship Goal (LTG) Patient to be independent and compliant with HEP, following protocol as instructed and demonstrate functional ROM and strength left UE for all usual activities 10/20/22: has achieved functional ROM except unable to reach behind her back sufficient to perform ADL's. Strength continues to improve. LTG Duration 12/20/22 Three Impairment Poor scar mobility Impairment forward head, rounded shoulders Short Term Goal (STG) Initiate scar mobility when incision fully healed and instruct patient in self- massage 08/22/22: goal met STG Duration goal met Skilled Nursing Goal (LTG) Normalize scar mobility for improved shoulder function 09/29/22: goal progress 10/20/22: goal progress, but with moderate restriction LTG Duration 12/20/22 One Impairment Unable to functionally use left UE Impairment UE Quickdash disability questionnaire 54% Short Term Goal (STG) Decrease Quickdash score to no greater than 40% as measure of improved functional use of her shoulder. 08/22/22: goal met STG Duration goal met Advertising Internship Goal (LTG) Patient to regain full functional use of her left shoulder including ability to reach overhead and behind her back. Improve Quickdash score to no greater than 15% as measure of improved left shoulder function 09/29/22: good goal progress, continues to improve functional ability to reach overhead and can now do her hair without bending her head forward. REaching behind her back limited as just recently allowed to start this motion at 12 weeks post-op 10/20/22: not retested this date. Patient has continued to report improved functional use but frustrated by limitations in reaching behind her back. LTG Duration 12/10/22 Progress Towards Goals Progress Towards Goals Progressing Toward Goals Assessment Summary Assessment Patient making steady progress with left shoulder ROM and strength, most limited in reaching behind her back; not yet functional ROM for ADL's. Compliance to HEP is fair. Would benefit from further PT to assure she achieves functional ROM espescially behind her back and improved scapular stabilization and strength of posterior chain musculature for shoulder function. Physical Therapy Plan Frequency and Duration Frequency of Treatment 2x/Week Duration of treatment (weeks) 6 Plan of Care Start Date 10/17/22 Plan of Care End Date 12/10/22 Therapeutic Interventions Therapeutic Interventions Home Exercise Program,Manual Therapy,Patient/Caregiver Education,Self-Care/Home Management,Soft Tissue Mobilization,Taping, Therapeutic Activities, Therapeutic Exercises Modalities Cold Pack/Ice Massage,Electric Stimulation,Hot Packs, Infrared Therapy,Iontophoresis ,Traction- Mechanical, Ultrasound Next Visit Focus/Plan Next Note Type Treatment Note Next Visit Plan Emphasis on shoulder strengthening and ROM especially shoulder IR. Patient to see her doctor next week, to discuss anticipated shoulder IR ROM expected. Plan of Care Dates Plan of Care Start Date 10/17/22 Plan of Care End Date 12/10/22 Electronically Signed by: Martina Feng, PT 10/23/22 1400 If you are in agreement with this Plan of Care, please return a signed and dated copy. I have reviewed this Plan of Care and certify that the skilled therapy services above are required to meet the patient?s needs. Physician Signature Date Printed Name and Credentials Clinical Instructor Signature Printed Name and Credentials
--- NOTE | 2022-10-20 16:21 | PT.OTRE ---
Current Diagnoses Primary osteoarthritis, left shoulder (10/20/22) Past Medical History (Last Updated 08/26/22 @ 10:25 by Cecilia Brown DO) Asthma Cataract Chronic back pain CTS (carpal tunnel syndrome) JOHNSON (dyspnea on exertion) Essential hypertension (04/25/17) Greater trochanteric bursitis of left hip Hypercalcemia Hyperlipidemia Hyperparathyroidism Hypertension Left hamstring muscle strain Measles Obesity Osteoarthritis Strain of adductor nando muscle Strain of right psoas muscle Supraspinatus tendon tear Tachycardia determined by examination of pulse Varicose veins of left lower extremity Surgical History (Last Updated 09/21/22 @ 14:37 by Cecilia Brown DO) Anesthesia H/O colonoscopy with polypectomy (~10/2020) History of knee replacement (2016) History of spinal fusion (06/2009) History of spinal fusion (2011) Status post parathyroidectomy (2015) Status post tonsillectomy and adenoidectomy (1947) Visit Care Team Role Provider Type Cecilia Brown DO Primary Care Provider Physician Specialty: Medical Address: [address] [place] [address], [id number] Email: [email or web address] Isabell Fung DO Family Provider Physician Specialty: Family Practice Address: [address] [place] [address], [id number] Email: [email or web address] Blaine Burgos DO Attending Provider Non-Staff Referring Provider Specialty: Orthopedic Surgery Address: [address] [place] [address], [id number] Email: Physical Therapy Re-Evaluation PT-OP-A Visit Information Start: 07/14/22 15:52 Freq: Status: Active Protocol: Document 10/20/22 09:45 RALF (Rec: 10/20/22 10:31 RALF [id number]) Out-Patient Physical Therapy Visit Information Visit Information Visit Type Treatment Note Visit Start Time 09:45 Visit Stop Time 10:45 Total Visit Minutes 60 Visit Number 25 Precautions Precautions 12+ wks post op: max 6 pounds lifting. May start shoulder ext/add behind back PT-OP-B Current Condition Start: 07/14/22 15:52 Freq: Status: Active Protocol: Document 08/01/22 08:59 SAK (Rec: 08/01/22 09:50 SAK [id number]) Current Condition History of Current Condition Onset Date 06/28/22 Current Complaints left reverse TSA with pain and limited use left UE History of Current Condition L reverse TSA. Has been in for adjustment of sling due to pain. States doctor told her she could do active abduction due to being able to hold her arm up. Surgery by Blaine Burgos. Prior Functional Status Baseline Function- ADL's Independent Baseline Function- Mobility Independent Baseline Function- Gait indep Baseline Function- Work/School volunteer work Baseline Function- Recreation/Hobbies no limitations PT-OP-C Subjective Start: 07/14/22 15:52 Freq: Status: Active Protocol: Document 10/20/22 09:45 SAK (Rec: 10/20/22 10:31 SAK [id number]) OP-PT Subjective Patient Comments Patient Comments Reports due to loss of date book last couple days hasn't done exercises very much. Getting ready for trip in 1 week. PT-OP-H Neuro Start: 07/14/22 15:52 Freq: Status: Active Protocol: Document 07/19/22 08:12 SAK (Rec: 07/19/22 10:28 [facility] [id number]) Sensation Evaluation Gross Sensation Gross Sensation WNL PT-OP-J Posture/Palpation/Skin Start: 07/14/22 15:52 Freq: Status: Active Protocol: Document 07/19/22 08:12 SAK (Rec: 07/19/22 10:28 [facility] [id number]) Posture Evaluation Position Sitting Head/C-Spine Posture Forward Head T-Spine Posture Increased Kyphosis Shoulder Posture (L) Rounded,(R) Rounded Scapula Posture (L) Protracted,(R) Protracted Arm Posture (L) Internally Rotated,(R) Internally Rotated Palpation Assessment Location left UT Palpation Findings Soft Tissue Tightness,Muscle Guarding,Tenderness Skin Assessment Incisional Assessment Incision Appearance/Comments Healing well, no signs or symptoms of infection. Small scabbed areas still present PT-OP-K Range of Motion Start: 07/14/22 15:52 Freq: Status: Active Protocol: Document 07/19/22 08:12 SAK (Rec: 07/19/22 10:28 [facility] [id number]) Cervical Spine Range of Motion Cervical Spine Active ROM Limitations Soft Tissue Tightness Comments WFL Shoulder Goniometric Range of Motion Shoulder Measured in Degrees Left Shoulder ROM WFL No Testing Position Supine Flexion 100 Extension 0 Abduction 75 External Rotation at 45 degrees 30 Abduction right Shoulder ROM WFL Yes Elbow/Forearm Range of Motion Elbow/Forearm ROM Limitations Comments WNL PT-OP-M Strength Start: 07/14/22 15:52 Freq: Status: Active Protocol: Document 07/19/22 08:12 [facility] (Rec: 07/19/22 10:28 [facility] [id number]) Shoulder Strength Shoulder Manual Muscle Testing Left Comments Not assessed due to recent surgery Right Comments WFL, no MMT PT-OP-Q Treatments Start: 07/14/22 15:52 Freq: Status: Active Protocol: Document 10/20/22 09:45 [facility] (Rec: 10/20/22 10:31 [facility] [id number]) Cardio Equipment Upper Body Ergometer (UBE) Duration (Minutes) 5 RPM 120 Seat Position 5 Height shoulder level Therapeutic Exercises Supine Exercises shld ER Supine Exercise Name resisted Resistance L1 TB Equipment Used pillow, towel roll Reps/Minutes 10x2 Comments verbal and tactile cues for correct angle PROM left shoulder Side left Reps/Minutes 10x flex, abd, ER, IR, hor ab Comments pain-free ROM, manual by PT Sidelying Exercises shoulder ER Sidelying Exercise Name AROM Reps/Minutes 10x sleeper stretch Reps/Minutes 3x5 Comments cues for gentle ROM Sitting Exercises shld ER Sitting Exercise Name slow throw motion Reps/Minutes 10x Comments AROM, mirror for visual cues for correct form pulleys Sitting Exercise Name flex, scaption Side left Reps/Minutes 10x Comments as anthony Standing Exercises throw motion Resistance L2 TB doorway stretch Standing Exercise Name low Reps/Minutes 2x30 Comments cues for pain-free angle and intensity shoulder IR Equipment Used L1 TB Reps/Minutes 10x5 Manual Therapy Treatment Soft Tissue Mobilization rhomboids, subscap Body Location periscapular Mobilization Type Myofascial Release,Strumming, Sustained Pressure Intensity/Depth Moderate biceps, deltoids, UT Mobilization Type Myofascial Release,Strumming Intensity/Depth Moderate Body Position Hooklying scar mob Mobilization Type Instrument Assisted,Strumming Intensity/Depth Moderate Body Position Hooklying Comments pillow under left elbow Joint Mobilizations GH Direction post, ant, inf Grade II Body Position Supine Self-Care/Home Management Treatment Education Other Education stressed importance of increased compliance to HEP PT-OP-R Modalities Start: 07/14/22 15:52 Freq: Status: Active Protocol: Document 10/17/22 09:50 SAK (Rec: 10/17/22 16:16 SAK [id number]) Hot Pack/Cold Pack Treatment Hot Pack Location left shoulder Treatment Duration (minutes) 15 Patient Tolerance Good PT-OP-T Assessment and Plan Start: 07/14/22 15:52 Freq: Status: Active Protocol: Document 10/20/22 09:45 SAK (Rec: 10/20/22 10:31 SAK [id number]) Physical Therapy Assessment Goals Two Impairment Limited ROM and strength left UE Short Term Goal (STG) Patient to be instructed in progressive HEP to address ROM and strength deficits following post-op protocol from Dr. Burgos 08/22/22: progressing with protocol, patient demonstrates good understanding STG Duration goal met; ongoing progression. Psychology Physician Goal (LTG) Patient to be independent and compliant with HEP, following protocol as instructed and demonstrate functional ROM and strength left UE for all usual activities 10/20/22: has achieved functional ROM except unable to reach behind her back sufficient to perform ADL's. Strength continues to improve. LTG Duration 12/20/22 Three Impairment Poor scar mobility Impairment forward head, rounded shoulders Short Term Goal (STG) Initiate scar mobility when incision fully healed and instruct patient in self- massage 08/22/22: goal met STG Duration goal met Psychology Physician Goal (LTG) Normalize scar mobility for improved shoulder function 09/29/22: goal progress 10/20/22: goal progress, but with moderate restriction LTG Duration 12/20/22 One Impairment Unable to functionally use left UE Impairment UE Quickdash disability questionnaire 54% Short Term Goal (STG) Decrease Quickdash score to no greater than 40% as measure of improved functional use of her shoulder. 08/22/22: goal met STG Duration goal met Fpc Goal (LTG) Patient to regain full functional use of her left shoulder including ability to reach overhead and behind her back. Improve Quickdash score to no greater than 15% as measure of improved left shoulder function 09/29/22: good goal progress, continues to improve functional ability to reach overhead and can now do her hair without bending her head forward. REaching behind her back limited as just recently allowed to start this motion at 12 weeks post-op 10/20/22: not retested this date. Patient has continued to report improved functional use but frustrated by limitations in reaching behind her back. LTG Duration 10/17/22 Progress Towards Goals Progress Towards Goals Progressing Toward Goals Assessment Summary Assessment Patient making steady progress with left shoulder ROM and strength, most limited in reaching behind her back; not yet functional ROM for ADL's. Compliance to HEP is fair. Would benefit from further PT to assure she achieves functional ROM espescially behind her back and improved scapular stabilization and strength of posterior chain musculature for shoulder function. Physical Therapy Plan Frequency and Duration Frequency of Treatment 2x/Week Duration of treatment (weeks) 12 Plan of Care Start Date 07/19/22 Plan of Care End Date 10/17/22 Therapeutic Interventions Therapeutic Interventions Home Exercise Program,Manual Therapy,Patient/Caregiver Education,Self-Care/Home Management,Soft Tissue Mobilization,Taping, Therapeutic Activities, Therapeutic Exercises Modalities Cold Pack/Ice Massage,Electric Stimulation,Hot Packs, Infrared Therapy,Iontophoresis ,Traction- Mechanical, Ultrasound Next Visit Focus/Plan Next Note Type Treatment Note Next Visit Plan Emphasis on shoulder strengthening and ROM especially shoulder IR. Patient to see her doctor next week, to discuss anticipated shoulder IR ROM expected.
--- NOTE | 2022-10-20 16:22 | PT.OPPOC ---
Physical, Occupational & Speech Therapy At [facility] Current Diagnoses Primary osteoarthritis, left shoulder (10/20/22) Visit Care Team Role Provider Type Cecilia Brown DO Primary Care Provider Physician Specialty: Medical Address: [address] [place] [address], [address], [place], [address] Email: [email or web address] Isabell Fung DO Family Provider Physician Specialty: Family Practice Address: [address] [place] [address], [address], [place], [address] Email: [email or web address] Blaine Burgos DO Attending Provider Non-Staff Referring Provider Specialty: Orthopedic Surgery Address: [address] [place] [address], [id number] Email: Plan Of Care PT-OP-T Assessment and Plan Start: 07/14/22 15:52 Freq: Status: Active Protocol: Document 10/20/22 09:45 SAK (Rec: 10/20/22 10:31 SAK [id number]) Physical Therapy Assessment Goals Two Impairment Limited ROM and strength left UE Short Term Goal (STG) Patient to be instructed in progressive HEP to address ROM and strength deficits following post-op protocol from Dr. Burgos 08/22/22: progressing with protocol, patient demonstrates good understanding STG Duration goal met; ongoing progression. Tailings Worker Goal (LTG) Patient to be independent and compliant with HEP, following protocol as instructed and demonstrate functional ROM and strength left UE for all usual activities 10/20/22: has achieved functional ROM except unable to reach behind her back sufficient to perform ADL's. Strength continues to improve. LTG Duration 12/20/22 Three Impairment Poor scar mobility Impairment forward head, rounded shoulders Short Term Goal (STG) Initiate scar mobility when incision fully healed and instruct patient in self- massage 08/22/22: goal met STG Duration goal met Longterm Goal (LTG) Normalize scar mobility for improved shoulder function 09/29/22: goal progress 10/20/22: goal progress, but with moderate restriction LTG Duration 12/20/22 One Impairment Unable to functionally use left UE Impairment UE Quickdash disability questionnaire 54% Short Term Goal (STG) Decrease Quickdash score to no greater than 40% as measure of improved functional use of her shoulder. 08/22/22: goal met STG Duration goal met Tailings Worker Goal (LTG) Patient to regain full functional use of her left shoulder including ability to reach overhead and behind her back. Improve Quickdash score to no greater than 15% as measure of improved left shoulder function 09/29/22: good goal progress, continues to improve functional ability to reach overhead and can now do her hair without bending her head forward. REaching behind her back limited as just recently allowed to start this motion at 12 weeks post-op 10/20/22: not retested this date. Patient has continued to report improved functional use but frustrated by limitations in reaching behind her back. LTG Duration 10/17/22 Progress Towards Goals Progress Towards Goals Progressing Toward Goals Assessment Summary Assessment Patient making steady progress with left shoulder ROM and strength, most limited in reaching behind her back; not yet functional ROM for ADL's. Compliance to HEP is fair. Would benefit from further PT to assure she achieves functional ROM espescially behind her back and improved scapular stabilization and strength of posterior chain musculature for shoulder function. Physical Therapy Plan Frequency and Duration Frequency of Treatment 2x/Week Duration of treatment (weeks) 12 Plan of Care Start Date 07/19/22 Plan of Care End Date 10/17/22 Therapeutic Interventions Therapeutic Interventions Home Exercise Program,Manual Therapy,Patient/Caregiver Education,Self-Care/Home Management,Soft Tissue Mobilization,Taping, Therapeutic Activities, Therapeutic Exercises Modalities Cold Pack/Ice Massage,Electric Stimulation,Hot Packs, Infrared Therapy,Iontophoresis ,Traction- Mechanical, Ultrasound Next Visit Focus/Plan Next Note Type Treatment Note Next Visit Plan Emphasis on shoulder strengthening and ROM especially shoulder IR. Patient to see her doctor next week, to discuss anticipated shoulder IR ROM expected. Plan of Care Dates Plan of Care Start Date 07/19/22 Plan of Care End Date 10/17/22 Electronically Signed by: Martina Feng, PT 10/20/22 2564 If you are in agreement with this Plan of Care, please return a signed and dated copy. I have reviewed this Plan of Care and certify that the skilled therapy services above are required to meet the patient?s needs. Physician Signature Date Printed Name and Credentials Clinical Instructor Signature Printed Name and Credentials
--- NOTE | 2022-10-24 16:29 | PT.OTN ---
Current Diagnoses Primary osteoarthritis, left shoulder (10/24/22) Physical Therapy Treatment Note PT-OP-A Visit Information Start: 07/14/22 15:52 Freq: Status: Active Protocol: Document 10/24/22 09:49 SAK (Rec: 10/24/22 10:31 [facility] [id number]) Out-Patient Physical Therapy Visit Information Visit Information Visit Type Treatment Note Visit Start Time 09:48 Visit Stop Time 10:33 Total Visit Minutes 45 Visit Number 26 Precautions Precautions 12+ wks post op: max 6 pounds lifting. May start shoulder ext/add behind back PT-OP-B Current Condition Start: 07/14/22 15:52 Freq: Status: Active Protocol: Document 08/01/22 08:59 SAK (Rec: 08/01/22 09:50 SAK [id number]) Current Condition History of Current Condition Onset Date 06/28/22 Current Complaints left reverse TSA with pain and limited use left UE History of Current Condition L reverse TSA. Has been in for adjustment of sling due to pain. States doctor told her she could do active abduction due to being able to hold her arm up. Surgery by Blaine Burgos. Prior Functional Status Baseline Function- ADL's Independent Baseline Function- Mobility Independent Baseline Function- Gait indep Baseline Function- Work/School volunteer work Baseline Function- Recreation/Hobbies no limitations PT-OP-C Subjective Start: 07/14/22 15:52 Freq: Status: Active Protocol: Document 10/24/22 09:49 SAK (Rec: 10/24/22 10:31 [facility] [id number]) OP-PT Subjective Patient Comments Patient Comments Sees surgeon 10/26/22, leaves for trip 10/27/22. Still struggling with internal rotation, will talk with surgeon about it. PT-OP-H Neuro Start: 07/14/22 15:52 Freq: Status: Active Protocol: Document 07/19/22 08:12 SAK (Rec: 07/19/22 10:28 [facility] [id number]) Sensation Evaluation Gross Sensation Gross Sensation WNL PT-OP-J Posture/Palpation/Skin Start: 07/14/22 15:52 Freq: Status: Active Protocol: Document 07/19/22 08:12 SAK (Rec: 07/19/22 10:28 SAK [id number]) Posture Evaluation Position Sitting Head/C-Spine Posture Forward Head T-Spine Posture Increased Kyphosis Shoulder Posture (L) Rounded,(R) Rounded Scapula Posture (L) Protracted,(R) Protracted Arm Posture (L) Internally Rotated,(R) Internally Rotated Palpation Assessment Location left UT Palpation Findings Soft Tissue Tightness,Muscle Guarding,Tenderness Skin Assessment Incisional Assessment Incision Appearance/Comments Healing well, no signs or symptoms of infection. Small scabbed areas still present PT-OP-K Range of Motion Start: 07/14/22 15:52 Freq: Status: Active Protocol: Document 07/19/22 08:12 [facility] (Rec: 07/19/22 10:28 [facility] [id number]) Cervical Spine Range of Motion Cervical Spine Active ROM Limitations Soft Tissue Tightness Comments WFL Shoulder Goniometric Range of Motion Shoulder Left Shoulder ROM WFL No Testing Position Supine Flexion 100 Extension 0 Abduction 75 External Rotation at 45 degrees 30 Abduction right Shoulder ROM WFL Yes Elbow/Forearm Range of Motion Elbow/Forearm ROM Limitations Comments WNL PT-OP-M Strength Start: 07/14/22 15:52 Freq: Status: Active Protocol: Document 07/19/22 08:12 [facility] (Rec: 07/19/22 10:28 [facility] [id number]) Shoulder Strength Shoulder Manual Muscle Testing Left Comments Not assessed due to recent surgery Right Comments WFL, no MMT PT-OP-Q Treatments Start: 07/14/22 15:52 Freq: Status: Active Protocol: Document 10/24/22 09:49 [facility] (Rec: 10/24/22 10:31 [facility] [id number]) Cardio Equipment Upper Body Ergometer (UBE) Duration (Minutes) 6 RPM 120 Seat Position 5 Height shoulder level Therapeutic Exercises Supine Exercises IR Supine Exercise Name AAROM to AROM Resistance 1# Equipment Used pillow, towel roll under elbow Reps/Minutes 10x 2 shld ER Supine Exercise Name resisted Resistance L1 TB Equipment Used pillow, towel roll Reps/Minutes 10x2 Comments verbal and tactile cues for correct angle Sidelying Exercises shoulder ER Sidelying Exercise Name AROM Reps/Minutes 10x scapular clocks. Sidelying Exercise Name 3, 4, 5:00 Side left Reps/Minutes 5x5 each Comments with manual resistance Sitting Exercises pulleys Sitting Exercise Name flex, scaption Side left Reps/Minutes 10x Comments as anthony Manual Therapy Treatment Soft Tissue Mobilization rhomboids, subscap Body Location periscapular Mobilization Type Myofascial Release,Strumming, Sustained Pressure Intensity/Depth Moderate biceps, deltoids, UT Mobilization Type Myofascial Release,Strumming Intensity/Depth Moderate Body Position Hooklying scar mob Mobilization Type Instrument Assisted,Strumming Intensity/Depth Moderate Body Position Hooklying Comments pillow under left elbow Joint Mobilizations GH Direction post, ant, inf Grade II Body Position Supine PT-OP-R Modalities Start: 07/14/22 15:52 Freq: Status: Active Protocol: Document 10/17/22 09:50 SAK (Rec: 10/17/22 16:16 [facility] [id number]) Hot Pack/Cold Pack Treatment Hot Pack Location left shoulder Treatment Duration (minutes) 15 Patient Tolerance Good PT-OP-T Assessment and Plan Start: 07/14/22 15:52 Freq: Status: Active Protocol: Document 10/24/22 09:49 SAK (Rec: 10/24/22 10:31 [facility] [id number]) Physical Therapy Assessment Goals Two Impairment Limited ROM and strength left UE Short Term Goal (STG) Patient to be instructed in progressive HEP to address ROM and strength deficits following post-op protocol from Dr. Burgos 08/22/22: progressing with protocol, patient demonstrates good understanding STG Duration goal met; ongoing progression. Senior Living Goal (LTG) Patient to be independent and compliant with HEP, following protocol as instructed and demonstrate functional ROM and strength left UE for all usual activities 10/20/22: has achieved functional ROM except unable to reach behind her back sufficient to perform ADL's. Strength continues to improve. LTG Duration 12/20/22 Three Impairment Poor scar mobility Impairment forward head, rounded shoulders Short Term Goal (STG) Initiate scar mobility when incision fully healed and instruct patient in self- massage 08/22/22: goal met STG Duration goal met Kitchen Food Server Goal (LTG) Normalize scar mobility for improved shoulder function 09/29/22: goal progress 10/20/22: goal progress, but with moderate restriction LTG Duration 12/20/22 One Impairment Unable to functionally use left UE Impairment UE Quickdash disability questionnaire 54% Short Term Goal (STG) Decrease Quickdash score to no greater than 40% as measure of improved functional use of her shoulder. 08/22/22: goal met STG Duration goal met Senior Living Goal (LTG) Patient to regain full functional use of her left shoulder including ability to reach overhead and behind her back. Improve Quickdash score to no greater than 15% as measure of improved left shoulder function 09/29/22: good goal progress, continues to improve functional ability to reach overhead and can now do her hair without bending her head forward. REaching behind her back limited as just recently allowed to start this motion at 12 weeks post-op 10/20/22: not retested this date. Patient has continued to report improved functional use but frustrated by limitations in reaching behind her back. LTG Duration 12/10/22 Assessment Summary Assessment Improved IR to center of buttock today. Sees surgeon , then leaves for trip. Taking theraband with her. Physical Therapy Plan Frequency and Duration Frequency of Treatment 2x/Week Duration of treatment (weeks) 6 Plan of Care Start Date 10/17/22 Plan of Care End Date 12/10/22 Therapeutic Interventions Therapeutic Interventions Home Exercise Program,Manual Therapy,Patient/Caregiver Education,Self-Care/Home Management,Soft Tissue Mobilization,Taping, Therapeutic Activities, Therapeutic Exercises Modalities Cold Pack/Ice Massage,Electric Stimulation,Hot Packs, Infrared Therapy,Iontophoresis ,Traction- Mechanical, Ultrasound Next Visit Focus/Plan Next Note Type Treatment Note Next Visit Plan Patient to see surgeon 10/26, leaves for trip 10/27. Will continue shoulder rehab when she returns pending recommendations from doctor with emphasis on functional ROM and strengthening.
--- NOTE | 2022-11-08 11:07 | PT.OTN ---
Current Diagnoses Primary osteoarthritis, left shoulder (11/08/22) Physical Therapy Treatment Note PT-OP-A Visit Information Start: 07/14/22 15:52 Freq: Status: Active Protocol: Document 11/08/22 09:53 NBM (Rec: 11/08/22 11:07 NB [id number]) Out-Patient Physical Therapy Visit Information Visit Information Visit Type Treatment Note Visit Note Pt late Visit Start Time 09:52 Visit Stop Time 10:40 Total Visit Minutes 48 Visit Number 27 Number of JOINER Visits 1 PT-OP-B Current Condition Start: 07/14/22 15:52 Freq: Status: Active Protocol: Document 08/01/22 08:59 SAK (Rec: 08/01/22 09:50 SAK [id number]) Current Condition History of Current Condition Onset Date 06/28/22 Current Complaints left reverse TSA with pain and limited use left UE History of Current Condition L reverse TSA. Has been in for adjustment of sling due to pain. States doctor told her she could do active abduction due to being able to hold her arm up. Surgery by Blaine Burgos. Prior Functional Status Baseline Function- ADL's Independent Baseline Function- Mobility Independent Baseline Function- Gait indep Baseline Function- Work/School volunteer work Baseline Function- Recreation/Hobbies no limitations PT-OP-C Subjective Start: 07/14/22 15:52 Freq: Status: Active Protocol: Document 11/08/22 09:53 NBM (Rec: 11/08/22 11:07 NB [id number]) OP-PT Subjective Patient Comments Patient Comments Pt reports surgeon was elated with her progress and she made his day and has cleared to continue PT as long as she benefits from it but does not need to follow up with surgeon . Pt was on a trip which involved cleaning and sorting and reports she did not lift anything by herself. [place] at the airport [place] but onto R outstretched arm and R knee then onto chest, and L arm seems a little sore this morning. Pt was able to sleep on R side last night. She apologizes for being late. PT-OP-H Neuro Start: 07/14/22 15:52 Freq: Status: Active Protocol: Document 07/19/22 08:12 SAK (Rec: 07/19/22 10:28 SAK [id number]) Sensation Evaluation Gross Sensation Gross Sensation WNL PT-OP-J Posture/Palpation/Skin Start: 07/14/22 15:52 Freq: Status: Active Protocol: Document 07/19/22 08:12 [facility] (Rec: 07/19/22 10:28 [facility] [id number]) Posture Evaluation Position Sitting Head/C-Spine Posture Forward Head T-Spine Posture Increased Kyphosis Shoulder Posture (L) Rounded,(R) Rounded Scapula Posture (L) Protracted,(R) Protracted Arm Posture (L) Internally Rotated,(R) Internally Rotated Palpation Assessment Location left UT Palpation Findings Soft Tissue Tightness,Muscle Guarding,Tenderness Skin Assessment Incisional Assessment Incision Appearance/Comments Healing well, no signs or symptoms of infection. Small scabbed areas still present PT-OP-K Range of Motion Start: 07/14/22 15:52 Freq: Status: Active Protocol: Document 07/19/22 08:12 [facility] (Rec: 07/19/22 10:28 [facility] [id number]) Cervical Spine Range of Motion Cervical Spine Active ROM Limitations Soft Tissue Tightness Comments WFL Shoulder Goniometric Range of Motion Shoulder Left Shoulder ROM WFL No Testing Position Supine Flexion 100 Extension 0 Abduction 75 External Rotation at 45 degrees 30 Abduction right Shoulder ROM WFL Yes Elbow/Forearm Range of Motion Elbow/Forearm ROM Limitations Comments WNL PT-OP-M Strength Start: 07/14/22 15:52 Freq: Status: Active Protocol: Document 07/19/22 08:12 [facility] (Rec: 07/19/22 10:28 [facility] [id number]) Shoulder Strength Shoulder Manual Muscle Testing Left Comments Not assessed due to recent surgery Right Comments WFL, no MMT PT-OP-Q Treatments Start: 07/14/22 15:52 Freq: Status: Active Protocol: Document 11/08/22 09:53 NBM (Rec: 11/08/22 11:07 NBM [id number]) Cardio Equipment Upper Body Ergometer (UBE) Duration (Minutes) 6 RPM 120 Seat Position 13 Height shoulder level Therapeutic Exercises Sitting Exercises pulleys Sitting Exercise Name flex, scaption Side left Reps/Minutes 10x Comments as anthony Manual Therapy Treatment Soft Tissue Mobilization rhomboids, subscap Body Location periscapular Mobilization Type Myofascial Release,Strumming, Sustained Pressure Intensity/Depth Moderate Comments focus on nodules around inferior angle PT-OP-R Modalities Start: 07/14/22 15:52 Freq: Status: Active Protocol: Document 11/08/22 09:53 NBM (Rec: 11/08/22 11:07 [facility] [id number]) Ultrasound Therapy Treatment Left Anterior Shoulder Patient Position Hooklying Duty Cycle 100% Intensity Setting (w/cm2) 1.2 Comments good feedback response. PT-OP-T Assessment and Plan Start: 07/14/22 15:52 Freq: Status: Active Protocol: Document 11/08/22 09:53 NB (Rec: 11/08/22 11:07 [facility] [id number]) Physical Therapy Assessment Impairments Impairments Activity Tolerance,ROM,Soft Tissue Mobility,Strength Goals Two Impairment Limited ROM and strength left UE Short Term Goal (STG) Patient to be instructed in progressive HEP to address ROM and strength deficits following post-op protocol from Dr. Burgos 08/22/22: progressing with protocol, patient demonstrates good understanding STG Duration goal met; ongoing progression. [employer] Goal (LTG) Patient to be independent and compliant with HEP, following protocol as instructed and demonstrate functional ROM and strength left UE for all usual activities 10/20/22: has achieved functional ROM except unable to reach behind her back sufficient to perform ADL's. Strength continues to improve. LTG Duration 12/20/22 Three Impairment Poor scar mobility Impairment forward head, rounded shoulders Short Term Goal (STG) Initiate scar mobility when incision fully healed and instruct patient in self- massage 08/22/22: goal met STG Duration goal met [employer] [facility] [facility] Goal (LTG) Normalize scar mobility for improved shoulder function 09/29/22: goal progress 10/20/22: goal progress, but with moderate restriction LTG Duration 12/20/22 One Impairment Unable to functionally use left UE Impairment UE Quickdash disability questionnaire 54% Short Term Goal (STG) Decrease Quickdash score to no greater than 40% as measure of improved functional use of her shoulder. 08/22/22: goal met STG Duration goal met Skilled Nursing Goal (LTG) Patient to regain full functional use of her left shoulder including ability to reach overhead and behind her back. Improve Quickdash score to no greater than 15% as measure of improved left shoulder function 09/29/22: good goal progress, continues to improve functional ability to reach overhead and can now do her hair without bending her head forward. REaching behind her back limited as just recently allowed to start this motion at 12 weeks post-op 10/20/22: not retested this date. Patient has continued to report improved functional use but frustrated by limitations in reaching behind her back. LTG Duration 12/10/22 Assessment Summary Assessment One more visit scheduled. Pt requires cues with pulleys for L UT overactivation at end range of shoulder flexion, but self-awareness improves with cueing. Manual therapy focus on medial border and nodules around inferior angle of L scapula; palpable tightness improves with STM. Ice offered and pt to ice at home. Physical Therapy Plan Frequency and Duration Frequency of Treatment 2x/Week Duration of treatment (weeks) 6 Plan of Care Start Date 10/17/22 Plan of Care End Date 12/10/22 Therapeutic Interventions Therapeutic Interventions Home Exercise Program,Manual Therapy,Patient/Caregiver Education,Self-Care/Home Management,Soft Tissue Mobilization,Taping, Therapeutic Activities, Therapeutic Exercises Modalities Cold Pack/Ice Massage,Electric Stimulation,Hot Packs, Infrared Therapy,Iontophoresis ,Traction- Mechanical, Ultrasound Next Visit Focus/Plan Next Note Type Treatment Note Next Visit Plan Will continue shoulder rehab when she returns pending recommendations from doctor with emphasis on functional ROM and strengthening.
--- NOTE | 2022-11-09 16:41 | PT.OTN ---
Current Diagnoses Primary osteoarthritis, left shoulder (11/09/22) Physical Therapy Treatment Note PT-OP-A Visit Information Start: 07/14/22 15:52 Freq: Status: Active Protocol: Document 11/09/22 09:10 SAK (Rec: 11/09/22 09:52 [facility] [id number]) Out-Patient Physical Therapy Visit Information Visit Information Visit Type Treatment Note Visit Start Time 09:00 Visit Stop Time 10:00 Total Visit Minutes 60 Visit Number 28 Number of ROD WELDER Visits 0 PT-OP-B Current Condition Start: 07/14/22 15:52 Freq: Status: Active Protocol: Document 08/01/22 08:59 SAK (Rec: 08/01/22 09:50 SAK [id number]) Current Condition History of Current Condition Onset Date 06/28/22 Current Complaints left reverse TSA with pain and limited use left UE History of Current Condition L reverse TSA. Has been in for adjustment of sling due to pain. States doctor told her she could do active abduction due to being able to hold her arm up. Surgery by Blaine Burgos. Prior Functional Status Baseline Function- ADL's Independent Baseline Function- Mobility Independent Baseline Function- Gait indep Baseline Function- Work/School volunteer work Baseline Function- Recreation/Hobbies no limitations PT-OP-C Subjective Start: 07/14/22 15:52 Freq: Status: Active Protocol: Document 11/09/22 09:10 SAK (Rec: 11/09/22 09:52 [facility] [id number]) OP-PT Subjective Patient Comments Patient Comments Patient reports pain left shoulder pain persists some after fall, saw Dr. Brown for OMT treatment this am. States Dr. Burgos was very pleased with her left shoulder function, told her not to worry about difficulty reaching behind her back, not expecting full ROM after TSA. PT-OP-H Neuro Start: 07/14/22 15:52 Freq: Status: Active Protocol: Document 07/19/22 08:12 SAK (Rec: 07/19/22 10:28 [facility] [id number]) Sensation Evaluation Gross Sensation Gross Sensation WNL PT-OP-J Posture/Palpation/Skin Start: 07/14/22 15:52 Freq: Status: Active Protocol: Document 07/19/22 08:12 SAK (Rec: 07/19/22 10:28 [facility] [id number]) Posture Evaluation Position Sitting Head/C-Spine Posture Forward Head T-Spine Posture Increased Kyphosis Shoulder Posture (L) Rounded,(R) Rounded Scapula Posture (L) Protracted,(R) Protracted Arm Posture (L) Internally Rotated,(R) Internally Rotated Palpation Assessment Location left UT Palpation Findings Soft Tissue Tightness,Muscle Guarding,Tenderness Skin Assessment Incisional Assessment Incision Appearance/Comments Healing well, no signs or symptoms of infection. Small scabbed areas still present PT-OP-K Range of Motion Start: 07/14/22 15:52 Freq: Status: Active Protocol: Document 07/19/22 08:12 [facility] (Rec: 07/19/22 10:28 [facility] [id number]) Cervical Spine Range of Motion Cervical Spine Active ROM Limitations Soft Tissue Tightness Comments WFL Shoulder Goniometric Range of Motion Shoulder Left Shoulder ROM WFL No Testing Position Supine Flexion 100 Extension 0 Abduction 75 External Rotation at 45 degrees 30 Abduction right Shoulder ROM WFL Yes Elbow/Forearm Range of Motion Elbow/Forearm ROM Limitations Comments WNL PT-OP-M Strength Start: 07/14/22 15:52 Freq: Status: Active Protocol: Document 07/19/22 08:12 [facility] (Rec: 07/19/22 10:28 [facility] [id number]) Shoulder Strength Shoulder Manual Muscle Testing Left Comments Not assessed due to recent surgery Right Comments WFL, no MMT PT-OP-Q Treatments Start: 07/14/22 15:52 Freq: Status: Active Protocol: Document 11/09/22 09:10 [facility] (Rec: 11/09/22 09:52 [facility] [id number]) Cardio Equipment Upper Body Ergometer (UBE) Other painful Recumbent Elliptical (Biodex) Duration (Minutes) 5 Resistance 1 Seat Position 11 Therapeutic Exercises Sitting Exercises pulleys Sitting Exercise Name flex, scaption Side left Reps/Minutes 10x Comments as anthony Manual Therapy Treatment Soft Tissue Mobilization rhomboids, subscap Body Location periscapular Mobilization Type Myofascial Release,Strumming, Sustained Pressure Intensity/Depth Moderate Comments focus on nodules around inferior angle biceps, deltoids, UT Mobilization Type Myofascial Release,Strumming Intensity/Depth Moderate Body Position Hooklying scar mob Mobilization Type Instrument Assisted,Strumming Intensity/Depth Moderate Body Position Hooklying Comments pillow under left elbow PT-OP-R Modalities Start: 07/14/22 15:52 Freq: Status: Active Protocol: Document 11/09/22 09:10 [facility] (Rec: 11/09/22 09:52 [facility] [id number]) Hot Pack/Cold Pack Treatment Hot Pack Location left shoulder Treatment Duration (minutes) 15 Patient Tolerance Good Ultrasound Therapy Treatment Left Anterior Shoulder Patient Position Hooklying Duty Cycle 100% Intensity Setting (w/cm2) 1.2 Comments good feedback response. PT-OP-T Assessment and Plan Start: 07/14/22 15:52 Freq: Status: Active Protocol: Document 11/09/22 09:10 [facility] (Rec: 11/09/22 09:52 [facility] [id number]) Physical Therapy Assessment Impairments Impairments Activity Tolerance,ROM,Soft Tissue Mobility,Strength Goals Two Impairment Limited ROM and strength left UE Short Term Goal (STG) Patient to be instructed in progressive HEP to address ROM and strength deficits following post-op protocol from Dr. Burgos 08/22/22: progressing with protocol, patient demonstrates good understanding STG Duration goal met; ongoing progression. [facility] Goal (LTG) Patient to be independent and compliant with HEP, following protocol as instructed and demonstrate functional ROM and strength left UE for all usual activities 10/20/22: has achieved functional ROM except unable to reach behind her back sufficient to perform ADL's. Strength continues to improve. LTG Duration 12/20/22 Three Impairment Poor scar mobility Impairment forward head, rounded shoulders Short Term Goal (STG) Initiate scar mobility when incision fully healed and instruct patient in self- massage 08/22/22: goal met STG Duration goal met [facility] [employer] Goal (LTG) Normalize scar mobility for improved shoulder function 09/29/22: goal progress 10/20/22: goal progress, but with moderate restriction LTG Duration 12/20/22 One Impairment Unable to functionally use left UE Impairment UE Quickdash disability questionnaire 54% Short Term Goal (STG) Decrease Quickdash score to no greater than 40% as measure of improved functional use of her shoulder. 08/22/22: goal met STG Duration goal met [facility] Goal (LTG) Patient to regain full functional use of her left shoulder including ability to reach overhead and behind her back. Improve Quickdash score to no greater than 15% as measure of improved left shoulder function 09/29/22: good goal progress, continues to improve functional ability to reach overhead and can now do her hair without bending her head forward. REaching behind her back limited as just recently allowed to start this motion at 12 weeks post-op 10/20/22: not retested this date. Patient has continued to report improved functional use but frustrated by limitations in reaching behind her back. LTG Duration 12/10/22 Assessment Summary Assessment Patient continues with some soreness after fall, advised to use ice and heat as tolerated, gentle resumption of HEP. Recommended patient return for follow-up appointment in 3-4 weeks. Physical Therapy Plan Frequency and Duration Frequency of Treatment 2x/Week Duration of treatment (weeks) 6 Plan of Care Start Date 10/17/22 Plan of Care End Date 12/10/22 Therapeutic Interventions Therapeutic Interventions Home Exercise Program,Manual Therapy,Patient/Caregiver Education,Self-Care/Home Management,Soft Tissue Mobilization,Taping, Therapeutic Activities, Therapeutic Exercises Modalities Cold Pack/Ice Massage,Electric Stimulation,Hot Packs, Infrared Therapy,Iontophoresis ,Traction- Mechanical, Ultrasound Next Visit Focus/Plan Next Note Type Re-Evaluation Next Visit Plan Re-evaluation, assess need for further PT.
--- NOTE | 2022-11-22 09:31 | PT.OTN ---
Current Diagnoses Primary osteoarthritis, left shoulder (11/22/22) Physical Therapy Treatment Note PT-OP-A Visit Information Start: 07/14/22 15:52 Freq: Status: Active Protocol: Document 11/22/22 08:48 SAK (Rec: 11/22/22 09:30 [facility] [id number]) Out-Patient Physical Therapy Visit Information Visit Information Visit Type Treatment Note Visit Start Time 09:00 Visit Stop Time 10:00 Total Visit Minutes 60 Visit Number 29 Number of TESTER REGULATOR Visits 0 PT-OP-B Current Condition Start: 07/14/22 15:52 Freq: Status: Active Protocol: Document 08/01/22 08:59 SAK (Rec: 08/01/22 09:50 SAK [id number]) Current Condition History of Current Condition Onset Date 06/28/22 Current Complaints left reverse TSA with pain and limited use left UE History of Current Condition L reverse TSA. Has been in for adjustment of sling due to pain. States doctor told her she could do active abduction due to being able to hold her arm up. Surgery by Blaine Burgos. Prior Functional Status Baseline Function- ADL's Independent Baseline Function- Mobility Independent Baseline Function- Gait indep Baseline Function- Work/School volunteer work Baseline Function- Recreation/Hobbies no limitations PT-OP-C Subjective Start: 07/14/22 15:52 Freq: Status: Active Protocol: Document 11/22/22 08:48 SAK (Rec: 11/22/22 09:30 [facility] [id number]) OP-PT Subjective Patient Comments Patient Comments left shoulder doing well, does anything I want it to, no pain. Right shoulder and hip painful after fall. Agreeable to today PT-OP-H Neuro Start: 07/14/22 15:52 Freq: Status: Active Protocol: Document 07/19/22 08:12 SAK (Rec: 07/19/22 10:28 [facility] [id number]) Sensation Evaluation Gross Sensation Gross Sensation WNL PT-OP-J Posture/Palpation/Skin Start: 07/14/22 15:52 Freq: Status: Active Protocol: Document 07/19/22 08:12 SAK (Rec: 07/19/22 10:28 SAK [id number]) Posture Evaluation Position Sitting Head/C-Spine Posture Forward Head T-Spine Posture Increased Kyphosis Shoulder Posture (L) Rounded,(R) Rounded Scapula Posture (L) Protracted,(R) Protracted Arm Posture (L) Internally Rotated,(R) Internally Rotated Palpation Assessment Location left UT Palpation Findings Soft Tissue Tightness,Muscle Guarding,Tenderness Skin Assessment Incisional Assessment Incision Appearance/Comments Healing well, no signs or symptoms of infection. Small scabbed areas still present PT-OP-K Range of Motion Start: 07/14/22 15:52 Freq: Status: Active Protocol: Document 07/19/22 08:12 [facility] (Rec: 07/19/22 10:28 [facility] [id number]) Cervical Spine Range of Motion Cervical Spine Active ROM Limitations Soft Tissue Tightness Comments WFL Shoulder Goniometric Range of Motion Shoulder Left Shoulder ROM WFL No Testing Position Supine Flexion 100 Extension 0 Abduction 75 External Rotation at 45 degrees 30 Abduction right Shoulder ROM WFL Yes Elbow/Forearm Range of Motion Elbow/Forearm ROM Limitations Comments WNL PT-OP-M Strength Start: 07/14/22 15:52 Freq: Status: Active Protocol: Document 07/19/22 08:12 [facility] (Rec: 07/19/22 10:28 [facility] [id number]) Shoulder Strength Shoulder Manual Muscle Testing Left Comments Not assessed due to recent surgery Right Comments WFL, no MMT PT-OP-Q Treatments Start: 07/14/22 15:52 Freq: Status: Active Protocol: Document 11/22/22 08:48 [facility] (Rec: 11/22/22 09:30 [facility] [id number]) Therapeutic Exercises Sitting Exercises pulleys Sitting Exercise Name flex, scaption Side left Reps/Minutes 10x Comments as anthony Standing Exercises doorway stretch Standing Exercise Name low Reps/Minutes 2x30 Comments cues for pain-free angle and intensity shoulder IR Equipment Used L1 TB Reps/Minutes 10x5 shldr ext Standing Exercise Name kianna Equipment Used wand Reps/Minutes 10x Comments plus hor add behind back shoulder adduction Equipment Used L1 Reps/Minutes 10x Manual Therapy Treatment Soft Tissue Mobilization rhomboids, subscap Body Location periscapular Mobilization Type Myofascial Release,Strumming, Sustained Pressure Intensity/Depth Moderate Comments focus on nodules around inferior angle biceps, deltoids, UT Mobilization Type Myofascial Release,Strumming Intensity/Depth Moderate Body Position Hooklying scar mob Mobilization Type Instrument Assisted,Strumming Intensity/Depth Moderate Body Position Hooklying Comments pillow under left elbow PT-OP-R Modalities Start: 07/14/22 15:52 Freq: Status: Active Protocol: Document 11/09/22 09:10 SAK (Rec: 11/09/22 09:52 [facility] [id number]) Hot Pack/Cold Pack Treatment Hot Pack Location left shoulder Treatment Duration (minutes) 15 Patient Tolerance Good Ultrasound Therapy Treatment Left Anterior Shoulder Patient Position Hooklying Duty Cycle 100% Intensity Setting (w/cm2) 1.2 Comments good feedback response. PT-OP-T Assessment and Plan Start: 07/14/22 15:52 Freq: Status: Active Protocol: Document 11/22/22 08:48 SAK (Rec: 11/22/22 09:30 SAK [id number]) Physical Therapy Assessment Impairments Impairments Activity Tolerance,ROM,Soft Tissue Mobility,Strength Goals Two Impairment Limited ROM and strength left UE Short Term Goal (STG) Patient to be instructed in progressive HEP to address ROM and strength deficits following post-op protocol from Dr. Burgos 08/22/22: progressing with protocol, patient demonstrates good understanding STG Duration goal met; ongoing progression. Usp Goal (LTG) Patient to be independent and compliant with HEP, following protocol as instructed and demonstrate functional ROM and strength left UE for all usual activities 10/20/22: has achieved functional ROM except unable to reach behind her back sufficient to perform ADL's. Strength continues to improve. LTG Duration goal met Three Impairment Poor scar mobility Impairment forward head, rounded shoulders Short Term Goal (STG) Initiate scar mobility when incision fully healed and instruct patient in self- massage 08/22/22: goal met STG Duration goal met Usp Goal (LTG) Normalize scar mobility for improved shoulder function 09/29/22: goal progress 10/20/22: goal progress, but with moderate restriction LTG Duration goal met One Impairment Unable to functionally use left UE Impairment UE Quickdash disability questionnaire 54% Short Term Goal (STG) Decrease Quickdash score to no greater than 40% as measure of improved functional use of her shoulder. 08/22/22: goal met STG Duration goal met Shop Lead Goal (LTG) Patient to regain full functional use of her left shoulder including ability to reach overhead and behind her back. Improve Quickdash score to no greater than 15% as measure of improved left shoulder function 09/29/22: good goal progress, continues to improve functional ability to reach overhead and can now do her hair without bending her head forward. REaching behind her back limited as just recently allowed to start this motion at 12 weeks post-op 10/20/22: not retested this date. Patient has continued to report improved functional use but frustrated by limitations in reaching behind her back. LTG Duration goal met Assessment Summary Assessment Goals met for left shoulder. Ready for discharge. After patient vacation may return to PT for right shoulder and hip pain s/p recent fall. left shoulder doing well with no ill effects from fall. Ready for discharge from PT Physical Therapy Plan Frequency and Duration Frequency of Treatment 2x/Week Duration of treatment (weeks) 6 Plan of Care Start Date 10/17/22 Plan of Care End Date 12/10/22 Therapeutic Interventions Therapeutic Interventions Home Exercise Program,Manual Therapy,Patient/Caregiver Education,Self-Care/Home Management,Soft Tissue Mobilization,Taping, Therapeutic Activities, Therapeutic Exercises Modalities Cold Pack/Ice Massage,Electric Stimulation,Hot Packs, Infrared Therapy,Iontophoresis ,Traction- Mechanical, Ultrasound Discharge Physical Therapy Discharge Reasons Goals Met
== END 2022-12-13 16:00 ==
LOC: PHYS 08:45
PROVIDERS: Absent Provider Family Medicine; Family Provider Family Medicine; PCP Family Medicine; Referring Provider Orthopaedic Surgery; Visit Provider Orthopaedic Surgery
DX: M19.012 Primary osteoarthritis, left shoulder (principal)
CPT/HCPCS: 97010; 97035; 97110; 97140; 97162; 97535

== ENCOUNTER → 2023-03-01 07:48 | Outpatient (CLI) | payer MEDICARE, OTHER, SELFPAY | PROVIDERS: Family Provider Family Medicine; PCP Family Medicine; Visit Provider Nurse Practitioner Family | DX: N39.0 Urinary tract infection, site not specified (principal) | CPT/HCPCS: 87077; 87086; 87186 ==

== ENCOUNTER → 2023-03-11 07:41 | Outpatient (CLI) | payer MEDICARE, OTHER, SELFPAY ==
[2023-03-11 09:43] LABS: Add Manual Diff / Slide Review NO; Basophils Absolute Auto 0 /uL (0-100); Basophils Percent Auto 0.6 % (0-2); Eosinophils Absolute Auto 200 /uL (0-450); Eosinophils Percent Auto 3.3 % (2-4); Lymphocytes Absolute Auto 1400 /uL (1100-4500); Mean Corpuscular Hemoglobin 30.9 PG (26-34); Mean Corpuscular Volume 88.4 fL (80-100); Monocytes Absolute Auto 500 /uL (0-900); Monocytes Percent Auto 7.4 % (3-14); Neutrophils Absolute Auto 4100 /uL (1500-7000); Neutrophils Percent Auto 66.7 % (50-75); Platelet Count 193 X10^3/uL (150-400); Red Blood Cell Count 4.53 X10^6/uL (4.0-5.2); White Blood Cell Count 6.2 X10^3/uL (4.5-11.0)
[2023-03-11 10:35] LABS: Alanine Aminotransferase 27 IU/L (<35); Albumin 3.8 g/dL (3.5-5.0); Albumin Globulin Ratio 1.4 (1.0-2.8); Alkaline Phosphatase 82 U/L (38-126); Aspartate Aminotransferase 24 IU/L (14-36); Blood Urea Nitrogen 16 mg/dL (7-17); Calcium 8.9 mg/dL (8.4-10.2); Carbon Dioxide 26 mmol/L (22-32); Chloride 105 mmol/L (98-107); Cholesterol 178 mg/dL (140-199); Estimated Glomerular Filt Rate > 60 mL/min (>60); Globulin 2.7 g/dL (1.7-4.1); Glucose 181 mg/dL (80-110); HDL Cholesterol 37 mg/dL (40-60); HEMOLYSIS < 15 (0-50); LDL Cholesterol Calculated 114 mg/dL (<100); Sodium 138 mmol/L (137-145); Total Protein 6.5 g/dL (6.3-8.2); Triglycerides 134 mg/dL (35-150)
[2023-03-11 10:36] LABS: Creatinine Urine Random 95.3 mg/dL
[2023-03-11 10:40] LABS: Hemoglobin A1C% w Est Avg Glu 7.5 % (4.0-6.0)
[2023-03-11 10:59] LABS: Microalbumin Urine Random 20.4 mg/dL (0-1.6)
[2023-03-11 11:13] LABS: TSH w/ Reflex to FT4 1.89 uIU/mL (0.47-4.68)
== END ==
PROVIDERS: Family Provider Family Medicine; PCP Family Medicine; Referring Provider Family Medicine; Visit Provider Family Medicine
DX: E11.9 Type 2 diabetes mellitus without complications (principal); E66.9 Obesity, unspecified; E78.5 Hyperlipidemia, unspecified; E83.52 Hypercalcemia; I10 Essential (primary) hypertension; I49.3 Ventricular premature depolarization; M16.11 Unilateral primary osteoarthritis, right hip; E11.618 Type 2 diabetes mellitus with other diabetic arthropathy
CPT/HCPCS: 36415; 80053; 80061; 82043; 82570; 83036; 84443; 85025

== ENCOUNTER 2023-03-11 18:04 | Emergency (ER) | payer MEDICARE, OTHER, SELFPAY ==
[2023-03-11 18:08] VITALS: BP 136/91; PULSE 81; RESP 18; TEMP 36.6; O2SAT 98; BMI 35.5
--- NOTE | 2023-03-11 19:18 | ED_ITS ---
HPI - Female Genitourinary General Chief complaint: Urogenital-Female Stated complaint: UTI 3RD in 3wks Time Seen by Provider: 03/11/23 19:17 Source: patient Mode of arrival: Ambulatory History of Present Illness HPI Narrative: 77F nonsmoker with history of HTN, DM and frequent UTIs presents with the chief complaint of symptoms consistent with another UTI. She complains of urinary frequency, dysuria and urgency. She denies systemic complaints such as abdominal pain, back pain, fever, chills, nausea or vomiting. She is not dizzy nor weak or lightheaded. She is otherwise well and free of complaint. She had recently had a 5 day course of cefdinir and reports a complete resolution of symptoms for a few days but they have since returned. Related Data Home Medications Medication Instructions Recorded Confirmed quercetin PO DAILY 01/18/22 02/17/23 cholecalciferol (vitamin D3) 25 25 mcg PO DAILY 01/22/22 02/17/23 mcg (1,000 unit) capsule zinc acetate 25 mg (zinc) capsule 25 mg PO DAILY 01/22/22 02/17/23 Vinia PO 03/10/22 02/17/23 coenzyme Q10 PO 03/10/22 02/17/23 ergocalciferol (vitamin D2) 10 mcg 10 mcg PO DAILY 03/10/22 02/17/23 (400 unit) tablet multivitamin 1 tab PO DAILY 03/10/22 02/17/23 vitamin K2 PO 03/10/22 02/17/23 Previous Rx's Medication Instructions Recorded disabled parking permit #1 ea 07/13/18 albuterol sulfate 90 mcg/actuation See Rx Instructions .Route 03/25/22 aerosol inhaler (Ventolin HFA) .COMPLEX #18 grams phenazopyridine 100 mg tablet 100 mg PO TID PRN pain 6 doses #10 03/28/22 tabs metoprolol succinate 50 mg 50 mg PO DAILY #90 tabs 04/15/22 tablet,extended release 24 hr cefpodoxime 200 mg tablet 200 mg PO Q12H #20 tabs 05/18/22 blood sugar diagnostic (Blood #100 ea 05/25/22 Glucose Test strips) blood-glucose meter #1 ea 05/25/22 lancets 33 gauge (BD Ultra Fine #100 ea 05/25/22 Lancets) Diovan 160 mg tablet (valsartan) 160 mg PO BID #180 tabs 09/21/22 activated charcoal 200 mg capsule 400 mg PO ONCE PRN diarrhea #10 12/13/22 caps cefdinir 300 mg capsule 300 mg PO BID #10 caps 03/01/23 cefdinir 300 mg capsule 300 mg PO BID #20 caps 03/11/23 Allergies Allergy/AdvReac Type Severity Reaction Status Date / Time gum mastic Allergy Severe rash, Verified 03/11/23 21:03 [From MASTISOL LIQUID blistering ADHESIVE] methyl salicylate Allergy Severe rash, Verified 03/11/23 21:03 [From MASTISOL LIQUID blistering ADHESIVE] storax Allergy Severe rash, Verified 03/11/23 21:03 [From MASTISOL LIQUID blistering ADHESIVE] tetracycline Allergy Mild RASH Verified 03/11/23 21:03 methylprednisolone Allergy Unknown Verified 03/11/23 21:03 adhesive AdvReac Unknown LONG, Verified 03/11/23 21:03 SKINNY, STERILE STRIPS: SURGERY Review of Systems Review of Systems Narrative: GENERAL: Denies chills, fatigue, malaise, fever, sweats. HEENT: Denies sinus pain, ear pain, sore throat, difficulty swallowing, dizziness. RESPIRATORY: Denies dyspnea, cough, wheezing, hemoptysis, sputum. CARDIOVASCULAR: Denies chest pain, palpitations, orthopnea, edema, GASTROINTESTINAL: Denies nausea, vomiting, abdominal pain, diarrhea, constipation, melena. : See HPI MUSCULOSKELETAL: denies weakness, joint pain, or bony pain SKIN: Denies rash, skin lesions, or other NEUROLOGIC: Denies weakness, headache, numbness, change in speech, confusion, seizures, incoordination. PSYCHIATRIC: No concerning psychosocial issues. 12 point review of systems is negative except for those stated above Patient History Medical History Asthma Cataract Chronic back pain CTS (carpal tunnel syndrome) JOHNSON (dyspnea on exertion) Essential hypertension (04/25/17) Greater trochanteric bursitis of left hip Hypercalcemia Hyperlipidemia Hyperparathyroidism Hypertension Left hamstring muscle strain Measles Obesity Osteoarthritis Strain of adductor nando muscle Strain of right psoas muscle Supraspinatus tendon tear Tachycardia determined by examination of pulse Varicose veins of left lower extremity Surgical History Anesthesia H/O colonoscopy with polypectomy (~10/2020) History of knee replacement (2017) History of spinal fusion (06/2009) History of spinal fusion (2011) Status post parathyroidectomy (2015) Status post tonsillectomy and adenoidectomy (1948) Family History Father CAD (coronary artery disease) Hypertension Lewy body dementia Grandfather Heart disease Mother Leukemia Acute ITP Detached retina H/O splenectomy Grandfather Cancer of soft palate Substance Use Type: does not use Exam Narrative Exam Narrative: GENERAL: [77] year old patient appears stated age. Well-developed patient, in mild distress. HEAD: Atraumatic. Normocephalic. EYES: Pupils equal round and reactive. Extraocular motions intact. No scleral icterus. No injection or drainage. ENT: Nose without bleeding, purulent drainage. Throat without erythema, tonsillar hypertrophy or exudate. Airway patent. NECK: Trachea midline. Non tender CARDIOVASCULAR: Regular rate and rhythm without murmurs, gallops, or rubs. RESPIRATORY: Clear to auscultation. Breath sounds equal bilaterally. No wheezes, rales, or rhonchi. GASTROINTESTINAL: Abdomen soft, non-tender, nondistended. EXTREMITIES: No edema or joint tenderness. BACK: Nontender without deformity or crepitance. No flank tenderness. NEURO: AOx3. SKIN: No rash or erythema of visible areas Initial Vital Signs Initial Vital Signs: Vital Signs Temperature 98 F 03/11/23 18:08 Pulse Rate 81 03/11/23 18:08 Respiratory Rate 18 03/11/23 18:08 Blood Pressure 136/91 H 03/11/23 18:08 Pulse Oximetry 98 03/11/23 18:08 Oxygen Delivery Method Room Air 03/11/23 18:08 Course Orders Ordered: ED Orders 03/11/23 18:15 Ictotest Urine Stat Urine Culture Stat Urine Microscopic Stat Discontinued Medications Cefazolin Sodium (Cephalexin 250 Mg Cap Prepack) 1 bottle MISC SEEINSTR ONE Stop: 03/11/23 21:32 Last Admin: 03/11/23 21:51 Dose: 1 bottle Documented By: SB Vital Signs Vital signs: Vital Signs - 8 hr 03/11/23 22:02 Pulse Rate 67 Blood Pressure 184/84 H Pulse Oximetry 97 Oxygen Delivery Method Room Air MDM - Female Genitourinary Lab Data Labs: Lab Results 03/11/23 Range/Units 18:15 Ur Bilirubin Confirm Negative (Negative) Urine RBC 30-100/hpf H (0-5/HPF) Urine WBC >100/hpf H (0-5/HPF) Ur Squamous Epith Cells 1-5 /hpf (0-5/HPF) Urine Bacteria Moderate (10-30) H (None) Ur Culture Indicated? Specimen cultured Urine Dip Bedside Urine Glucose 1000 mg/dl Bedside Urine Bilirubin + 1 Bedside Urine Ketone +/- 5 Urine Specific Cody 1.030 Bedside Urine Occult Blood +++ Bedside Urine pH 6.0 Bedside Urine Protein ++ 100 Bedside Urine Urobilinogen - Negative Bedside Urine Nitrite - Negative Bedside Urine Leukocytes ++ 125 Esterase MDM Narrative Medical decision making narrative: [77] year old patient presents with dysuria, frequency and urgency Multiple etiologies for patient's symptoms considered including, but not limited to: UTI versus other] Prior Charts reviewed in our EMR Primary Historian: patient Labs reviewed and interpreted by myself: Urine consistent with UTI Patient's history and physical exam are reassuring, no signs of an upper tract infection, no signs sepsis. She did have a complete resolution of symptoms after her last course of cefdinir, urine culture and sensitivity consulted, cephalosporins are appropriate. I did discuss with her the utility in prescribing a longer course this time around and we sure the opinion this is appropriate. Patient's symptoms improved over duration of stay with above-stated therapies. Findings and discharge diagnosis discussed with patient/family followed by verbalization of understanding Return precautions discussed with patient/family whom verbalize understanding of diagnosis and plan Discharge Plan Departure Patient Disposition: Home Clinical Impression: Acute UTI Instructions: DI for Urinary Tract Infection (UTI) Activity Restrictions/Additional Instructions: *You have been diagnosed with [recurrent urinary tract infection] *What to do: *Please continue to take your regular medications as directed. [x ] New medication prescriptions sent to your pharmacy: [[facility]] [ ] New medication written as a paper prescription [ ] No new medications given *Please follow up with your primary care provider in 2-3 days, call for an appointment. Let them know you were seen in the Emergency Department and that we ask that you be seen in follow up. We will electronically transmit a record of today's note if your PCP is in our system *If you do not have a primary care provider please contact the [facility] Resource line at [phone]. They will ask some questions about your medical history and help get you set up with a doctor in the community. *Return to Emergency Department if you should have any new, worsening or concerning symptoms, such as [fever greater than 101 F, shaking chills, worsening pain, persistent vomiting or other bothersome symptoms] Prescriptions: New cefdinir 300 mg capsule 300 mg PO BID Qty: 20 0RF No Action cefdinir 300 mg capsule 300 mg PO BID Qty: 10 0RF zinc acetate 25 mg (zinc) capsule 25 mg PO DAILY cholecalciferol (vitamin D3) 25 mcg (1,000 unit) capsule 25 mcg PO DAILY metoprolol succinate 50 mg tablet extended release 24 hr 50 mg PO DAILY Qty: 90 4RF (DME) disabled parking permit Qty: 1 0RF Dose Instruction: As directed Rx Instructions: As directed due to ability to walk more than 200 feet limited by medical condition. albuterol sulfate [Ventolin HFA] 90 mcg/actuation HFA aerosol inhaler See Rx Instructions .ROUTE .COMPLEX Qty: 18 6RF Dose Instruction: INHALE 2 PUFFS BY MOUTH EVERY 4 HOURS NEEDED FOR SHORTNESS OF BREATH Rx Instructions: INHALE 2 PUFFS BY MOUTH EVERY 4-6 HOURS NEEDED FOR SHORTNESS OF BREATH cefpodoxime 200 mg tablet 200 mg PO Q12H Qty: 20 0RF Rx Instructions: must administer with a meal/food quercetin PO DAILY multivitamin Tablet 1 tab PO DAILY ergocalciferol (vitamin D2) 10 mcg (400 unit) tablet 10 mcg PO DAILY vitamin K2 PO coenzyme Q10 PO Vinia PO (DME) lancets [BD Ultra Fine Lancets] 33 gauge misc See Rx Instructions .ROUTE .MEDSUPPLY Qty: 100 4RF Rx Instructions: Use to test blood glucose once daily (DME) Blood Glucose Test Strip See Rx Instructions .ROUTE .MEDSUPPLY Qty: 100 4RF Rx Instructions: Use to test blood glucose once daily. (DME) blood-glucose meter Kit See Rx Instructions .ROUTE .MEDSUPPLY Qty: 1 0RF Rx Instructions: Use to test blood glucose DAILY valsartan [Diovan] 160 mg tablet 160 mg PO BID Qty: 180 3RF Rx Instructions: Take one tablet by mouth twice a day. activated charcoal 200 mg capsule 400 mg PO ONCE PRN (Reason: diarrhea) Qty: 10 0RF Rx Instructions: take up to three doses a day as needed, at least an hour away from medications phenazopyridine 100 mg tablet 100 mg PO TID PRN (Reason: pain) Qty: 10 0RF Referrals: Cecilia Brown DO [Primary Care Provider] - Stand Alone Forms: Patient Portal/API
[2023-03-11 20:10] LABS: Bacteria Urine Moderate (10-30); Culture Indicated Urine Specimen Cultured; Ictotest Urine Negative (Negative); RBC Urine 30-100/HPF (0-5/HPF); Squamous Epithelial Cell Urine 1-5 /HPF (0-5/HPF); WBC Urine >100/HPF (0-5/HPF)
[2023-03-11] MEDS: cephALEXin 250 MG CAP PREPACK 1 BOTTLE MISC (21:51)
[2023-03-11 22:02] VITALS: BP 184/84; PULSE 67; O2SAT 97
== END 2023-03-11 22:06 | disposition home or self-care (01) ==
PROVIDERS: Emergency Provider Emergency Medicine; Family Provider Family Medicine; PCP Family Medicine
DX: N39.0 Urinary tract infection, site not specified (principal); E11.9 Type 2 diabetes mellitus without complications; E66.9 Obesity, unspecified; E78.5 Hyperlipidemia, unspecified; E83.52 Hypercalcemia; I10 Essential (primary) hypertension; I49.3 Ventricular premature depolarization; M16.11 Unilateral primary osteoarthritis, right hip; E11.618 Type 2 diabetes mellitus with other diabetic arthropathy
CPT/HCPCS: 36415; 80053; 80061; 81003; 81015; 82043; 82570; 83036; 84443; 85025; 87077; 87086; 87186; 99281; 99283

== ENCOUNTER 2023-03-20 11:15 | Outpatient (RCR) | payer MEDICARE, OTHER, SELFPAY ==
--- NOTE | 2023-02-02 16:29 | PT.OIE ---
Current Diagnoses Other chronic pain (02/06/23) Cervicalgia (02/06/23) Right lower quadrant pain (02/06/23) Difficulty in walking, not elsewhere classified (02/06/23) Fall on same level, unspecified, sequela (02/06/23) Past Medical History (Last Updated 08/26/22 @ 10:25 by Cecilia Brown DO) Asthma Cataract Chronic back pain CTS (carpal tunnel syndrome) JOHNSON (dyspnea on exertion) Essential hypertension (04/25/17) Greater trochanteric bursitis of left hip Hypercalcemia Hyperlipidemia Hyperparathyroidism Hypertension Left hamstring muscle strain Measles Obesity Osteoarthritis Strain of adductor nando muscle Strain of right psoas muscle Supraspinatus tendon tear Tachycardia determined by examination of pulse Varicose veins of left lower extremity Past Surgical History (Last Updated 09/21/22 @ 14:37 by Cecilia Brown DO) Anesthesia H/O colonoscopy with polypectomy (~10/2020) History of knee replacement (2016) History of spinal fusion (06/2009) History of spinal fusion (2011) Status post parathyroidectomy (2015) Status post tonsillectomy and adenoidectomy (1947) Visit Care Team Role Provider Type Cecilia Brown DO Attending Provider Physician Family Provider Primary Care Provider Referring Provider Specialty: Medical Address: [address] [place] [address], [address], [place], [facility] Email: [email or web address] Physical Therapy Initial Evaluation PT-OP-A Visit Information Start: 02/02/23 07:55 Freq: Status: Active Protocol: Document 02/02/23 09:36 SAK (Rec: 02/02/23 10:18 [facility] [id number]) Out-Patient Physical Therapy Visit Information Visit Information Visit Type Initial Evaluation Visit Start Time 09:35 Visit Stop Time 10:35 Total Visit Minutes 60 Visit Number 1 Evaluation Information Evaluation Date 02/02/23 PT-OP-B Current Condition Start: 02/02/23 07:55 Freq: Status: Active Protocol: Document 02/02/23 09:36 SAK (Rec: 02/02/23 10:18 [facility] [id number]) Current Condition History of Current Condition Onset Date F Current Complaints right groin pain History of Current Condition right groin pain exacerbation s/p falls x 2 while on vacation; 1x when missed curb, twisted on leg as she fell. Partially fell on tram during acceleration of tram went straight back into people. Having some clicking in her hip. Prior fall 10 days after Easter also exacerbated 8 years ago fall down stairs with hyperextension of right LE. Has had a couple OMT treatments, relief doesn't last. REferred to massage therapist Philly Montesinos; worked on sartorius ,gracilis, psoas; seeing her every other week. Also pain lateral lower leg. Prior Treatments and Tests MRI next week at [facility]. Future Testing and Treatments Planned none planned at this time Treatment Goals Patient/Caregiver Goals improve balance, improve pain, walking Prior Functional Status Baseline Function- ADL's Modified Independent Baseline Function- Mobility Modified Independent Baseline Function- Gait trekking pole Baseline Function- Recreation/Hobbies [employer], volunteer work Current Functional Impairments (Reported) Functional Limitations- ADL's painful Functional Limitations- Mobility/Gait limited and painful Functional Limitations- Recreation/ paionful Hobbies Personal Factors Other Personal Factors That May Effect all ADL's painful and limited Therapy/Recovery PT-OP-C Subjective Start: 02/02/23 07:55 Freq: Status: Active Protocol: Document 02/02/23 09:36 [facility] (Rec: 02/06/23 16:23 [facility] [id number]) OP-PT Pain Assessment Pain Assessment Grid Paper Pain Assessment Grid Completed Yes Location right hip Pain Location Details groing, medial thigh, lateral lower leg, buttock Intensity 9 Scale Used Numeric (0 - 10) Description Aching,Pinching,Pressure,Sharp ,Spasm,Stabbing,Tender, Throbbing Frequency Frequent Pain Aggravating Factors Activity,Exercise,Standing, Walking,Stair Climbing,Bending Pain Alleviating Factors Heat,Inactivity Pain Behaviors Pain Behaviors Calling Out,Facial Grimacing, Guarding,Restlessness,Wincing PT-OP-D Balance Start: 02/02/23 07:55 Freq: Status: Active Protocol: Document 02/02/23 09:36 [facility] (Rec: 02/06/23 16:23 [facility] [id number]) OP-PT Balance Assessment Standing Balance Standing Balance Comments not tested due to acuity of pain Tripathi Fall Scale Copyright Permission PT-OP-G Mobility & Gait Start: 02/02/23 07:55 Freq: Status: Active Protocol: Document 02/02/23 09:36 [facility] (Rec: 02/06/23 16:23 [facility] [id number]) OP Gait Assessment Gait Gait Assistance Required: Independent Assistive Devices Orthotic/Prosthetic Devices or Brace: No Gait Deviations General Gait Pattern Antalgic,Decreased Stride Length,Decreased Feet Clearance,Flexed Trunk,Lateral Trunk Lean Factors Limiting Gait Function Factors Limiting Gait Function Pain Comments Gait Comments trekking pole, hyperextension right knee Stair Climbing Evaluation Technique/Endurance Stair Climbing Technique Step to Step PT-OP-H Neuro Start: 02/02/23 07:55 Freq: Status: Active Protocol: Document 02/02/23 09:36 [facility] (Rec: 02/06/23 16:23 [facility] [id number]) Sensation Evaluation Gross Sensation Gross Sensation Right LE Impaired PT-OP-J Posture/Palpation/Skin Start: 02/02/23 07:55 Freq: Status: Active Protocol: Document 02/02/23 09:36 [facility] (Rec: 02/06/23 16:23 [facility] [id number]) Posture Evaluation Position Standing L-Spine Posture Increased Lordosis Shoulder Posture (L) Rounded,(R) Rounded Scapula Posture (L) Protracted,(R) Protracted Arm Posture (L) Internally Rotated,(R) Internally Rotated Pelvis Posture Anteriorly Tilted Weight Distribution Weight Shifted Left Hip Posture (R) Externally Rotated Knee Posture (R) Genu Recurvatum Palpation Assessment Location right groin Palpation Findings Muscle Guarding,Tenderness PT-OP-K Range of Motion Start: 02/02/23 07:55 Freq: Status: Active Protocol: Document 02/02/23 09:36 [facility] (Rec: 02/06/23 16:23 [facility] [id number]) Hip Goniometric Range of Motion Hip Left Hip ROM WFL Yes Right Hip ROM WFL No Flexion w/Knee Flexed 90 Straight Leg Raise 70 Extension 0 Abduction 25 Internal Rotation 20 External Rotation 45 Hip ROM Limitations Hip ROM Limitations Soft Tissue Tightness,Pain Knee Goniometric Range of Motion Knee kianna Knee ROM WFL Yes PT-OP-L Special Tests Start: 02/02/23 07:55 Freq: Status: Active Protocol: Document 02/02/23 09:36 [facility] (Rec: 02/06/23 16:23 [facility] [id number]) Special Tests Hip Special Tests FADIR Test Results positive right ingrid test Test Results positive right Anterior Labral Test Test Results positive right Scour Test Test Results positive right GRACE Test Results positive right PT-OP-M Strength Start: 02/02/23 07:55 Freq: Status: Active Protocol: Document 02/02/23 09:36 [facility] (Rec: 02/06/23 16:23 [facility] [id number]) Hip Strength Hip Manual Muscle Testing Left Flexion (L2) 4- Good- Extension (S1) 3+ Fair+ Abduction 4- Good- Adduction 4- Good- External Rotation 4- Good- Internal Rotation 4 Good Right Flexion (L2) 3- Fair- Extension (S1) 3- Fair- Abduction 3- Fair- Adduction 3- Fair- External Rotation 3- Fair- Internal Rotation 3- Fair- Comments limited by pain PT-OP-Q Treatments Start: 02/02/23 07:55 Freq: Status: Active Protocol: Document 02/02/23 09:36 [facility] (Rec: 02/06/23 16:23 [facility] [id number]) Therapeutic Exercises Supine Exercises glut set Reps/Minutes 5x5a supine clam Equipment Used purple TB Reps/Minutes 10x5 Comments isometric ball squeeze Side bilateral Reps/Minutes 5x5 TrA Reps/Minutes 5x5 Manual Therapy Treatment Taping right sartorious, gracilis Treatment Focus inhibition pain relief Type of Tape Kinesio Tape Skin Inspection intact Self-Care/Home Management Treatment Education Patient Education Fall Risk,Home Exercise Program,Pain Management Activities Self-Care/Home Management Activities use of ice and heat PRN PT-OP-R Modalities Start: 02/02/23 07:55 Freq: Status: Active Protocol: Document 02/02/23 09:36 [facility] (Rec: 02/02/23 10:18 [facility] [id number]) Hot Pack/Cold Pack Treatment Hot Pack Location right thigh, groin Patient Position Hooklying Treatment Duration (minutes) 15 Patient Tolerance Good PT-OP-T Assessment and Plan Start: 02/02/23 07:55 Freq: Status: Active Protocol: Document 02/02/23 09:36 [facility] (Rec: 02/02/23 10:18 [facility] [id number]) Physical Therapy Assessment Goals Two Impairment antalgic gait Forensic Sergeant Goal (LTG) Patient able to walk without assistive device on level and with LRD on uneven ground without limp LTG Duration 05/05/23 Three Impairment activity tolerance Impairment LEFS One Impairment right hip pain as high as 9/10 Forensic Sergeant Goal (LTG) Patient to report hip pain no greater than 2/10 with all usual activities LTG Duration 05/05/23 Assessment Summary Assessment Patient presents to PT with function-limiting right hip/ grain pain exacerbated by 2 falls while on vacation recently. Previously approximately 2 years ago fell going down stairs causing anterior hip strain and hip dysfunction. Current signs and symptoms consistent with potential anterior labral impingment or tear with positive GRACE and FADIR. Patient reporting frequent clicking of hip though this was not reproducted this date. Feel she would benefit from PT for gentle ther ex for strengthening and stabilization of hip , joint mobilization and other manual tequniques and modalities PRN pain. POC was discussed with the patient and she was in agreement. Physical Therapy Plan Frequency and Duration Frequency of Treatment 2x/Week Duration of treatment (weeks) 12 Plan of Care Start Date 02/02/23 Plan of Care End Date 05/05/23 Therapeutic Interventions Therapeutic Interventions Gait Training,Home Exercise Program,Joint Mobilizations, Manual Therapy,Neuromuscular Re-education,Patient/Caregiver Education,Self-Care/Home Management,Soft Tissue Mobilization,Taping, Therapeutic Activities, Therapeutic Exercises Modalities Cold Pack/Ice Massage,Electric Stimulation,Hot Packs, Infrared Therapy,Ultrasound Next Visit Focus/Plan Next Note Type Treatment Note Next Visit Plan Gentle ther ex for core and hip stab, joint mob posterior and distraction, MWM to seat hip in socket with flex, DTM, modalities PRN
--- NOTE | 2023-02-02 16:29 | PT.OPPOC ---
Physical, Occupational & Speech Therapy At [facility] Current Diagnoses Other chronic pain (02/06/23) Cervicalgia (02/06/23) Right lower quadrant pain (02/06/23) Difficulty in walking, not elsewhere classified (02/06/23) Fall on same level, unspecified, sequela (02/06/23) Visit Care Team Role Provider Type Cecilia Brown DO Attending Provider Physician Family Provider Primary Care Provider Referring Provider Specialty: Medical Address: [address] [place] [address], [address], [place], [address] Email: [email or web address] Plan Of Care PT-OP-T Assessment and Plan Start: 02/02/23 07:55 Freq: Status: Active Protocol: Document 02/02/23 09:36 SAK (Rec: 02/02/23 10:18 SAK [id number]) Physical Therapy Assessment Goals Two Impairment antalgic gait Director Of Front Office Goal (LTG) Patient able to walk without assistive device on level and with LRD on uneven ground without limp LTG Duration 05/05/23 Three Impairment activity tolerance Impairment LEFS One Impairment right hip pain as high as 9/10 Director Of Front Office Goal (LTG) Patient to report hip pain no greater than 2/10 with all usual activities LTG Duration 05/05/23 Assessment Summary Assessment Patient presents to PT with function-limiting right hip/ grain pain exacerbated by 2 falls while on vacation recently. Previously approximately 2 years ago fell going down stairs causing anterior hip strain and hip dysfunction. Current signs and symptoms consistent with potential anterior labral impingment or tear with positive GRACE and FADIR. Patient reporting frequent clicking of hip though this was not reproducted this date. Feel she would benefit from PT for gentle ther ex for strengthening and stabilization of hip , joint mobilization and other manual tequniques and modalities PRN pain. POC was discussed with the patient and she was in agreement. Physical Therapy Plan Frequency and Duration Frequency of Treatment 2x/Week Duration of treatment (weeks) 12 Plan of Care Start Date 02/02/23 Plan of Care End Date 05/05/23 Therapeutic Interventions Therapeutic Interventions Gait Training,Home Exercise Program,Joint Mobilizations, Manual Therapy,Neuromuscular Re-education,Patient/Caregiver Education,Self-Care/Home Management,Soft Tissue Mobilization,Taping, Therapeutic Activities, Therapeutic Exercises Modalities Cold Pack/Ice Massage,Electric Stimulation,Hot Packs, Infrared Therapy,Ultrasound Next Visit Focus/Plan Next Note Type Treatment Note Next Visit Plan Gentle ther ex for core and hip stab, joint mob posterior and distraction, MWM to seat hip in socket with flex, DTM, modalities PRN Plan of Care Dates Plan of Care Start Date 02/02/23 Plan of Care End Date 05/05/23 Electronically Signed by: Martina Feng, PT 02/06/23 7427 If you are in agreement with this Plan of Care, please return a signed and dated copy. I have reviewed this Plan of Care and certify that the skilled therapy services above are required to meet the patient?s needs. Physician Signature Date Printed Name and Credentials Clinical Instructor Signature Printed Name and Credentials
--- NOTE | 2023-02-02 16:42 | PT.OPPOC ---
Physical, Occupational & Speech Therapy At [facility] Current Diagnoses Other chronic pain (02/06/23) Cervicalgia (02/06/23) Right lower quadrant pain (02/06/23) Difficulty in walking, not elsewhere classified (02/06/23) Fall on same level, unspecified, sequela (02/06/23) Visit Care Team Role Provider Type Cecilia Brown DO Attending Provider Physician Family Provider Primary Care Provider Referring Provider Specialty: Medical Address: [address] [place] [address], [address], [place], [address] Email: [email or web address] Plan Of Care PT-OP-T Assessment and Plan Start: 02/02/23 07:55 Freq: Status: Active Protocol: Document 02/02/23 09:36 SAK (Rec: 02/02/23 10:18 SAK [id number]) Physical Therapy Assessment Goals Two Impairment antalgic gait Gift Basket Packer Goal (LTG) Patient able to walk without assistive device on level and with LRD on uneven ground without limp LTG Duration 05/05/23 Three Impairment activity tolerance Impairment LEFS One Impairment right hip pain as high as 9/10 Gift Basket Packer Goal (LTG) Patient to report hip pain no greater than 2/10 with all usual activities LTG Duration 05/05/23 Assessment Summary Assessment Patient presents to PT with function-limiting right hip/ grain pain exacerbated by 2 falls while on vacation recently. Previously approximately 2 years ago fell going down stairs causing anterior hip strain and hip dysfunction. Current signs and symptoms consistent with potential anterior labral impingment or tear with positive GRACE and FADIR. Patient reporting frequent clicking of hip though this was not reproducted this date. Feel she would benefit from PT for gentle ther ex for strengthening and stabilization of hip , joint mobilization and other manual tequniques and modalities PRN pain. POC was discussed with the patient and she was in agreement. Physical Therapy Plan Frequency and Duration Frequency of Treatment 2x/Week Duration of treatment (weeks) 12 Plan of Care Start Date 02/02/23 Plan of Care End Date 05/05/23 Therapeutic Interventions Therapeutic Interventions Gait Training,Home Exercise Program,Joint Mobilizations, Manual Therapy,Neuromuscular Re-education,Patient/Caregiver Education,Self-Care/Home Management,Soft Tissue Mobilization,Taping, Therapeutic Activities, Therapeutic Exercises Modalities Cold Pack/Ice Massage,Electric Stimulation,Hot Packs, Infrared Therapy,Ultrasound Next Visit Focus/Plan Next Note Type Treatment Note Next Visit Plan Gentle ther ex for core and hip stab, joint mob posterior and distraction, MWM to seat hip in socket with flex, DTM, modalities PRN Plan of Care Dates Plan of Care Start Date 02/02/23 Plan of Care End Date 05/05/23 Electronically Signed by: Martina Feng, PT 02/06/23 [id number] If you are in agreement with this Plan of Care, please return a signed and dated copy. I have reviewed this Plan of Care and certify that the skilled therapy services above are required to meet the patient?s needs. Physician Signature Date Printed Name and Credentials Clinical Instructor Signature Printed Name and Credentials
--- NOTE | 2023-02-06 16:30 | PT.OTN ---
Current Diagnoses Other chronic pain (02/09/23) Cervicalgia (02/09/23) Right lower quadrant pain (02/09/23) Difficulty in walking, not elsewhere classified (02/09/23) Fall on same level, unspecified, sequela (02/09/23) Physical Therapy Treatment Note PT-OP-A Visit Information Start: 02/02/23 07:55 Freq: Status: Active Protocol: Document 02/06/23 15:00 SAK (Rec: 02/09/23 16:30 [facility] [id number]) Out-Patient Physical Therapy Visit Information Visit Information Visit Type Treatment Note Visit Start Time 15:00 Visit Stop Time 15:45 Total Visit Minutes 60 Visit Number 2 Evaluation Information Evaluation Date 02/02/23 PT-OP-B Current Condition Start: 02/02/23 07:55 Freq: Status: Active Protocol: Document 02/02/23 09:36 SAK (Rec: 02/02/23 10:18 [facility] [id number]) Current Condition History of Current Condition Onset Date F Current Complaints right groin pain History of Current Condition right groin pain exacerbation s/p falls x 2 while on vacation; 1x when missed curb, twisted on leg as she fell. Partially fell on tram during acceleration of tram went straight back into people. Having some clicking in her hip. Prior fall 10 days after Easter also exacerbated 8 years ago fall down stairs with hyperextension of right LE. Has had a couple OMT treatments, relief doesn't last. REferred to massage therapist Philly Montesinos; worked on sartorius ,gracilis, psoas; seeing her every other week. Also pain lateral lower leg. Prior Treatments and Tests MRI next week at [facility]. Future Testing and Treatments Planned none planned at this time Treatment Goals Patient/Caregiver Goals improve balance, improve pain, walking Prior Functional Status Baseline Function- ADL's Modified Independent Baseline Function- Mobility Modified Independent Baseline Function- Gait trekking pole Baseline Function- Recreation/Hobbies christian, volunteer work Current Functional Impairments (Reported) Functional Limitations- ADL's painful Functional Limitations- Mobility/Gait limited and painful Functional Limitations- Recreation/ paionful Hobbies Personal Factors Other Personal Factors That May Effect all ADL's painful and limited Therapy/Recovery PT-OP-C Subjective Start: 02/02/23 07:55 Freq: Status: Active Protocol: Document 02/06/23 15:00 [facility] (Rec: 02/09/23 16:30 [facility] [id number]) OP-PT Subjective Patient Comments Patient Comments Pain persists in groin. Going to have a massage later this week. OP-PT Pain Assessment Pain Behaviors Pain Behaviors Calling Out,Facial Grimacing, Guarding,Restlessness,Wincing PT-OP-D Balance Start: 02/02/23 07:55 Freq: Status: Active Protocol: Document 02/02/23 09:36 [facility] (Rec: 02/06/23 16:23 [facility] [id number]) OP-PT Balance Assessment Standing Balance Standing Balance Comments not tested due to acuity of pain Tripathi Fall Scale Copyright Permission PT-OP-G Mobility & Gait Start: 02/02/23 07:55 Freq: Status: Active Protocol: Document 02/02/23 09:36 [facility] (Rec: 02/06/23 16:23 [facility] [id number]) OP Gait Assessment Gait Gait Assistance Required: Independent Assistive Devices Orthotic/Prosthetic Devices or Brace: No Gait Deviations General Gait Pattern Antalgic,Decreased Stride Length,Decreased Feet Clearance,Flexed Trunk,Lateral Trunk Lean Factors Limiting Gait Function Factors Limiting Gait Function Pain Comments Gait Comments trekking pole, hyperextension right knee Stair Climbing Evaluation Technique/Endurance Stair Climbing Technique Step to Step PT-OP-H Neuro Start: 02/02/23 07:55 Freq: Status: Active Protocol: Document 02/02/23 09:36 [facility] (Rec: 02/06/23 16:23 [facility] [id number]) Sensation Evaluation Gross Sensation Gross Sensation Right LE Impaired PT-OP-J Posture/Palpation/Skin Start: 02/02/23 07:55 Freq: Status: Active Protocol: Document 02/02/23 09:36 [facility] (Rec: 02/06/23 16:23 [facility] [id number]) Posture Evaluation Position Standing L-Spine Posture Increased Lordosis Shoulder Posture (L) Rounded,(R) Rounded Scapula Posture (L) Protracted,(R) Protracted Arm Posture (L) Internally Rotated,(R) Internally Rotated Pelvis Posture Anteriorly Tilted Weight Distribution Weight Shifted Left Hip Posture (R) Externally Rotated Knee Posture (R) Genu Recurvatum Palpation Assessment Location right groin Palpation Findings Muscle Guarding,Tenderness PT-OP-K Range of Motion Start: 02/02/23 07:55 Freq: Status: Active Protocol: Document 02/02/23 09:36 [facility] (Rec: 02/06/23 16:23 [facility] [id number]) Hip Goniometric Range of Motion Hip Left Hip ROM WFL Yes Right Hip ROM WFL No Flexion w/Knee Flexed 90 Straight Leg Raise 70 Extension 0 Abduction 25 Internal Rotation 20 External Rotation 45 Hip ROM Limitations Hip ROM Limitations Soft Tissue Tightness,Pain Knee Goniometric Range of Motion Knee kianna Knee ROM WFL Yes PT-OP-L Special Tests Start: 02/02/23 07:55 Freq: Status: Active Protocol: Document 02/02/23 09:36 [facility] (Rec: 02/06/23 16:23 [facility] [id number]) Special Tests Hip Special Tests FADIR Test Results positive right ingrid test Test Results positive right Anterior Labral Test Test Results positive right Scour Test Test Results positive right GRACE Test Results positive right PT-OP-M Strength Start: 02/02/23 07:55 Freq: Status: Active Protocol: Document 02/02/23 09:36 [facility] (Rec: 02/06/23 16:23 [facility] [id number]) Hip Strength Hip Manual Muscle Testing Left Flexion (L2) 4- Good- Extension (S1) 3+ Fair+ Abduction 4- Good- Adduction 4- Good- External Rotation 4- Good- Internal Rotation 4 Good Right Flexion (L2) 3- Fair- Extension (S1) 3- Fair- Abduction 3- Fair- Adduction 3- Fair- External Rotation 3- Fair- Internal Rotation 3- Fair- Comments limited by pain PT-OP-Q Treatments Start: 02/02/23 07:55 Freq: Status: Active Protocol: Document 02/06/23 15:00 [facility] (Rec: 02/09/23 16:30 [facility] [id number]) Cardio Equipment Recumbent Stepper (Sci-Fit) Resistance 5 Seat Position 11 Therapeutic Exercises Supine Exercises glut set Reps/Minutes 5x5a supine clam Equipment Used purple TB Reps/Minutes 10x5 Comments isometric ball squeeze Side bilateral Reps/Minutes 5x5 TrA Reps/Minutes 5x5 Manual Therapy Treatment Soft Tissue Mobilization psoas Mobilization Type Sustained Pressure gracilis Mobilization Type Myofascial Release,Strumming Joint Mobilizations right hip Direction posterior glide, distraction Grade III Body Position Hooklying Self-Care/Home Management Treatment Education Patient Education Body Mechanics,Home Exercise Program,Joint Protection, Posture Other Education gait mechanics PT-OP-R Modalities Start: 02/02/23 07:55 Freq: Status: Active Protocol: Document 02/06/23 15:00 [facility] (Rec: 02/09/23 16:30 [facility] [id number]) Hot Pack/Cold Pack Treatment Hot Pack Location right thigh, groin Patient Position Hooklying Treatment Duration (minutes) 15 Patient Tolerance Good PT-OP-T Assessment and Plan Start: 02/02/23 07:55 Freq: Status: Active Protocol: Document 02/06/23 15:00 [facility] (Rec: 02/09/23 16:30 [facility] [id number]) Physical Therapy Assessment Goals Two Impairment antalgic gait Short Term Goal (STG) Patient able to ambulate on level surfaces with trekking pole with no limp or compensatory movements STG Duration 03/19/23 Signwriter Goal (LTG) Patient able to walk without assistive device on level and with LRD on uneven ground without limp LTG Duration 05/05/23 Three Impairment activity tolerance Impairment LEFS 14% Short Term Goal (STG) Improve LEFS score to at least 40% as measure of improved function and activity tolerance. STG Duration 03/19/23 Shelter Goal (LTG) Improve LEFS score to at least 75% as measure of improved function and activity tolerance LTG Duration 05/05/23 One Impairment right hip pain as high as 9/10 Impairment Impairment in functional use of her left UE including reaching overhead, behind her back, out to side Shelter Goal (LTG) Patient to report hip pain no greater than 2/10 with all usual activities LTG Duration 05/05/23 Assessment Summary Assessment Patient needs moderate cues for correcting gait; antalgic and habitual knee hyperextension, lack of gluteal activation, lateral lean, dec WB right, dec step length left. Physical Therapy Plan Frequency and Duration Frequency of Treatment 2x/Week Duration of treatment (weeks) 12 Plan of Care Start Date 02/02/23 Plan of Care End Date 05/05/23 Therapeutic Interventions Therapeutic Interventions Gait Training,Home Exercise Program,Joint Mobilizations, Manual Therapy,Neuromuscular Re-education,Patient/Caregiver Education,Self-Care/Home Management,Soft Tissue Mobilization,Taping, Therapeutic Activities, Therapeutic Exercises Modalities Cold Pack/Ice Massage,Electric Stimulation,Hot Packs, Infrared Therapy,Ultrasound Next Visit Focus/Plan Next Note Type Treatment Note Next Visit Plan Assess response to today's treatment. Progress ther ex, manual techniques, gait training as tolerated.
--- NOTE | 2023-02-09 16:49 | PT.OTN ---
Current Diagnoses Other chronic pain (02/09/23) Cervicalgia (02/09/23) Right lower quadrant pain (02/09/23) Difficulty in walking, not elsewhere classified (02/09/23) Fall on same level, unspecified, sequela (02/09/23) Physical Therapy Treatment Note PT-OP-A Visit Information Start: 02/02/23 07:55 Freq: Status: Active Protocol: Document 02/09/23 16:36 SAK (Rec: 02/09/23 16:49 [facility] [id number]) Out-Patient Physical Therapy Visit Information Visit Information Visit Type Treatment Note Visit Start Time 15:00 Visit Stop Time 16:00 Total Visit Minutes 60 Visit Number 3 Evaluation Information Evaluation Date 02/02/23 PT-OP-B Current Condition Start: 02/02/23 07:55 Freq: Status: Active Protocol: Document 02/02/23 09:36 SAK (Rec: 02/02/23 10:18 [facility] [id number]) Current Condition History of Current Condition Onset Date F Current Complaints right groin pain History of Current Condition right groin pain exacerbation s/p falls x 2 while on vacation; 1x when missed curb, twisted on leg as she fell. Partially fell on tram during acceleration of tram went straight back into people. Having some clicking in her hip. Prior fall 10 days after Easter also exacerbated 8 years ago fall down stairs with hyperextension of right LE. Has had a couple OMT treatments, relief doesn't last. REferred to massage therapist Philly Montesinos; worked on sartorius ,gracilis, psoas; seeing her every other week. Also pain lateral lower leg. Prior Treatments and Tests MRI next week [facility]. Future Testing and Treatments Planned none planned at this time Treatment Goals Patient/Caregiver Goals improve balance, improve pain, walking Prior Functional Status Baseline Function- ADL's Modified Independent Baseline Function- Mobility Modified Independent Baseline Function- Gait trekking pole Baseline Function- Recreation/Hobbies mormon, volunteer work Current Functional Impairments (Reported) Functional Limitations- ADL's painful Functional Limitations- Mobility/Gait limited and painful Functional Limitations- Recreation/ paionful Hobbies Personal Factors Other Personal Factors That May Effect all ADL's painful and limited Therapy/Recovery PT-OP-C Subjective Start: 02/02/23 07:55 Freq: Status: Active Protocol: Document 02/09/23 16:36 [facility] (Rec: 02/09/23 16:49 [facility] [id number]) OP-PT Subjective Patient Comments Patient Comments Had massage therapy appointment earlier today, reports dec in pain, some has started to return but still better. OP-PT Pain Assessment Pain Behaviors Pain Behaviors Calling Out,Facial Grimacing, Guarding,Restlessness,Wincing PT-OP-D Balance Start: 02/02/23 07:55 Freq: Status: Active Protocol: Document 02/02/23 09:36 [facility] (Rec: 02/06/23 16:23 [facility] [id number]) OP-PT Balance Assessment Standing Balance Standing Balance Comments not tested due to acuity of pain Tripathi Fall Scale Copyright Permission PT-OP-G Mobility & Gait Start: 02/02/23 07:55 Freq: Status: Active Protocol: Document 02/02/23 09:36 [facility] (Rec: 02/06/23 16:23 [facility] [id number]) OP Gait Assessment Gait Gait Assistance Required: Independent Assistive Devices Orthotic/Prosthetic Devices or Brace: No Gait Deviations General Gait Pattern Antalgic,Decreased Stride Length,Decreased Feet Clearance,Flexed Trunk,Lateral Trunk Lean Factors Limiting Gait Function Factors Limiting Gait Function Pain Comments Gait Comments trekking pole, hyperextension right knee Stair Climbing Evaluation Technique/Endurance Stair Climbing Technique Step to Step PT-OP-H Neuro Start: 02/02/23 07:55 Freq: Status: Active Protocol: Document 02/02/23 09:36 [facility] (Rec: 02/06/23 16:23 [facility] [id number]) Sensation Evaluation Gross Sensation Gross Sensation Right LE Impaired PT-OP-J Posture/Palpation/Skin Start: 02/02/23 07:55 Freq: Status: Active Protocol: Document 02/02/23 09:36 [facility] (Rec: 02/06/23 16:23 [facility] [id number]) Posture Evaluation Position Standing L-Spine Posture Increased Lordosis Shoulder Posture (L) Rounded,(R) Rounded Scapula Posture (L) Protracted,(R) Protracted Arm Posture (L) Internally Rotated,(R) Internally Rotated Pelvis Posture Anteriorly Tilted Weight Distribution Weight Shifted Left Hip Posture (R) Externally Rotated Knee Posture (R) Genu Recurvatum Palpation Assessment Location right groin Palpation Findings Muscle Guarding,Tenderness PT-OP-K Range of Motion Start: 02/02/23 07:55 Freq: Status: Active Protocol: Document 02/02/23 09:36 [facility] (Rec: 02/06/23 16:23 [facility] [id number]) Hip Goniometric Range of Motion Hip Left Hip ROM WFL Yes Right Hip ROM WFL No Flexion w/Knee Flexed 90 Straight Leg Raise 70 Extension 0 Abduction 25 Internal Rotation 20 External Rotation 45 Hip ROM Limitations Hip ROM Limitations Soft Tissue Tightness,Pain Knee Goniometric Range of Motion Knee kianna Knee ROM WFL Yes PT-OP-L Special Tests Start: 02/02/23 07:55 Freq: Status: Active Protocol: Document 02/02/23 09:36 [facility] (Rec: 02/06/23 16:23 [facility] [id number]) Special Tests Hip Special Tests FADIR Test Results positive right ingrid test Test Results positive right Anterior Labral Test Test Results positive right Scour Test Test Results positive right GRACE Test Results positive right PT-OP-M Strength Start: 02/02/23 07:55 Freq: Status: Active Protocol: Document 02/02/23 09:36 [facility] (Rec: 02/06/23 16:23 [facility] [id number]) Hip Strength Hip Manual Muscle Testing Left Flexion (L2) 4- Good- Extension (S1) 3+ Fair+ Abduction 4- Good- Adduction 4- Good- External Rotation 4- Good- Internal Rotation 4 Good Right Flexion (L2) 3- Fair- Extension (S1) 3- Fair- Abduction 3- Fair- Adduction 3- Fair- External Rotation 3- Fair- Internal Rotation 3- Fair- Comments limited by pain PT-OP-Q Treatments Start: 02/02/23 07:55 Freq: Status: Active Protocol: Document 02/09/23 16:36 [facility] (Rec: 02/09/23 16:49 [facility] [id number]) Cardio Equipment Recumbent Stepper (Sci-Fit) Resistance 6 Seat Position 11 Other cues for self post glide of head of femur Gym Equipment Shuttle Balance chains red Details bal and wt shiftfwd/bck Reps/Duration 4 min Comments cues for postural alignment Therapeutic Exercises Standing Exercises gluteal set Standing Exercise Name kianna and unil Reps/Minutes 5x ea Gait Training Gait Activity gait with mirror Device Used trekking pole Level of Assistance verbal and tactile cues Surface firm Distance/Duration 5 min Treatment Focus dec limp and compensation, gluteal activation Manual Therapy Treatment Joint Mobilizations right hip Direction posterior glide, lateral and inf distraction Grade III Body Position Hooklying Self-Care/Home Management Treatment Education Patient Education Body Mechanics,Home Exercise Program,Joint Protection, Posture Other Education hip joint mechanics roll and glide of femur PT-OP-R Modalities Start: 02/02/23 07:55 Freq: Status: Active Protocol: Document 02/09/23 16:36 [facility] (Rec: 02/09/23 16:49 [facility] [id number]) Hot Pack/Cold Pack Treatment Hot Pack Location right thigh, groin Patient Position Hooklying Treatment Duration (minutes) 15 Patient Tolerance Good PT-OP-T Assessment and Plan Start: 02/02/23 07:55 Freq: Status: Active Protocol: Document 02/09/23 16:36 [facility] (Rec: 02/09/23 16:49 [facility] [id number]) Physical Therapy Assessment Goals Two Impairment antalgic gait Short Term Goal (STG) Patient able to ambulate on level surfaces with trekking pole with no limp or compensatory movements STG Duration 03/19/23 Senior Living Goal (LTG) Patient able to walk without assistive device on level and with LRD on uneven ground without limp LTG Duration 05/05/23 Three Impairment activity tolerance Impairment LEFS 14% Short Term Goal (STG) Improve LEFS score to at least 40% as measure of improved function and activity tolerance. STG Duration 03/19/23 Program Officer Goal (LTG) Improve LEFS score to at least 75% as measure of improved function and activity tolerance LTG Duration 05/05/23 One Impairment right hip pain as high as 9/10 Impairment Impairment in functional use of her left UE including reaching overhead, behind her back, out to side Senior Living Goal (LTG) Patient to report hip pain no greater than 2/10 with all usual activities LTG Duration 05/05/23 Physical Therapy Plan Frequency and Duration Frequency of Treatment 2x/Week Duration of treatment (weeks) 12 Plan of Care Start Date 02/02/23 Plan of Care End Date 05/05/23 Therapeutic Interventions Therapeutic Interventions Gait Training,Home Exercise Program,Joint Mobilizations, Manual Therapy,Neuromuscular Re-education,Patient/Caregiver Education,Self-Care/Home Management,Soft Tissue Mobilization,Taping, Therapeutic Activities, Therapeutic Exercises Modalities Cold Pack/Ice Massage,Electric Stimulation,Hot Packs, Infrared Therapy,Ultrasound
--- NOTE | 2023-02-21 17:00 | PT.OTN ---
Current Diagnoses Other chronic pain (02/21/23) Cervicalgia (02/21/23) Right lower quadrant pain (02/21/23) Difficulty in walking, not elsewhere classified (02/21/23) Fall on same level, unspecified, sequela (02/21/23) Physical Therapy Treatment Note PT-OP-A Visit Information Start: 02/02/23 07:55 Freq: Status: Active Protocol: Document 02/21/23 08:47 SAK (Rec: 02/21/23 09:01 SAK [id number]) Out-Patient Physical Therapy Visit Information Visit Information Visit Type Treatment Note Visit Note Pt 25 min late, thought appt different time MRI results 02/10/23: right worse than left kianna hip joint OA changes with significant jt space narrowing, extensive subchondral sclerosis and marginal osteophyte formation. Finding concerning for acute avulsion injury involving left hamstring tendon origins at ischial tuberosity with thickened tendon fibers and surrounding edema as well as marrow edema involving ischial tuberosity. Visit Start Time 09:25 Visit Stop Time 10:00 Total Visit Minutes 35 Visit Number 4 Evaluation Information Evaluation Date 02/02/23 PT-OP-B Current Condition Start: 02/02/23 07:55 Freq: Status: Active Protocol: Document 02/02/23 09:36 SAK (Rec: 02/02/23 10:18 SAK [id number]) Current Condition History of Current Condition Onset Date F Current Complaints right groin pain History of Current Condition right groin pain exacerbation s/p falls x 2 while on vacation; 1x when missed curb, twisted on leg as she fell. Partially fell on tram during acceleration of tram went straight back into people. Having some clicking in her hip. Prior fall 10 days after Easter also exacerbated 8 years ago fall down stairs with hyperextension of right LE. Has had a couple OMT treatments, relief doesn't last. REferred to massage therapist Philly Montesinos; worked on sartorius ,gracilis, psoas; seeing her every other week. Also pain lateral lower leg. Prior Treatments and Tests MRI next week at [facility]. 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 , During massage most recently work to left hamstring caused symptoms on right. Starting to understand better how one side can affect the other. Going to have another MRI. Patient Reported Progress Same PT-OP-D Balance Start: 02/02/23 07:55 Freq: Status: Active Protocol: Document 02/02/23 09:36 SAK (Rec: 02/06/23 16:23 [facility] [id number]) OP-PT Balance Assessment Standing Balance Standing Balance Comments not tested due to acuity of pain Tripathi Fall Scale Copyright Permission PT-OP-G Mobility & Gait Start: 02/02/23 07:55 Freq: Status: Active Protocol: Document 02/02/23 09:36 SAK (Rec: 02/06/23 16:23 [facility] [id number]) OP Gait Assessment Gait Gait Assistance Required: Independent Assistive Devices Orthotic/Prosthetic Devices or Brace: No Gait Deviations General Gait Pattern Antalgic,Decreased Stride Length,Decreased Feet Clearance,Flexed Trunk,Lateral Trunk Lean Factors Limiting Gait Function Factors Limiting Gait Function Pain Comments Gait Comments trekking pole, hyperextension right knee Stair Climbing Evaluation Technique/Endurance Stair Climbing Technique Step to Step PT-OP-H Neuro Start: 02/02/23 07:55 Freq: Status: Active Protocol: Document 02/02/23 09:36 SAK (Rec: 02/06/23 16:23 [facility] [id number]) Sensation Evaluation Gross Sensation Gross Sensation Right LE Impaired PT-OP-J Posture/Palpation/Skin Start: 02/02/23 07:55 Freq: Status: Active Protocol: Document 02/02/23 09:36 SAK (Rec: 02/06/23 16:23 [facility] [id number]) Posture Evaluation Position Standing L-Spine Posture Increased Lordosis Shoulder Posture (L) Rounded,(R) Rounded Scapula Posture (L) Protracted,(R) Protracted Arm Posture (L) Internally Rotated,(R) Internally Rotated Pelvis Posture Anteriorly Tilted Weight Distribution Weight Shifted Left Hip Posture (R) Externally Rotated Knee Posture (R) Genu Recurvatum Palpation Assessment Location right groin Palpation Findings Muscle Guarding,Tenderness PT-OP-K Range of Motion Start: 02/02/23 07:55 Freq: Status: Active Protocol: Document 02/02/23 09:36 [facility] (Rec: 02/06/23 16:23 [facility] [id number]) Hip Goniometric Range of Motion Hip Left Hip ROM WFL Yes Right Hip ROM WFL No Flexion w/Knee Flexed 90 Straight Leg Raise 70 Extension 0 Abduction 25 Internal Rotation 20 External Rotation 45 Hip ROM Limitations Hip ROM Limitations Soft Tissue Tightness,Pain Knee Goniometric Range of Motion Knee kianna Knee ROM WFL Yes PT-OP-L Special Tests Start: 02/02/23 07:55 Freq: Status: Active Protocol: Document 02/02/23 09:36 [facility] (Rec: 02/06/23 16:23 [facility] [id number]) Special Tests Hip Special Tests FADIR Test Results positive right ingrid test Test Results positive right Anterior Labral Test Test Results positive right Scour Test Test Results positive right GRACE Test Results positive right PT-OP-M Strength Start: 02/02/23 07:55 Freq: Status: Active Protocol: Document 02/02/23 09:36 [facility] (Rec: 02/06/23 16:23 [facility] [id number]) Hip Strength Hip Manual Muscle Testing Left Flexion (L2) 4- Good- Extension (S1) 3+ Fair+ Abduction 4- Good- Adduction 4- Good- External Rotation 4- Good- Internal Rotation 4 Good Right Flexion (L2) 3- Fair- Extension (S1) 3- Fair- Abduction 3- Fair- Adduction 3- Fair- External Rotation 3- Fair- Internal Rotation 3- Fair- Comments limited by pain PT-OP-Q Treatments Start: 02/02/23 07:55 Freq: Status: Active Protocol: Document 02/21/23 08:47 SAK (Rec: 02/21/23 09:08 SAK [id number]) Therapeutic Exercises Supine Exercises heel slides Equipment Used slider sheet, pillow under knee Reps/Minutes 10x Comments cues for core engagement, leg extension as lowers heel dig Equipment Used bolster Reps/Minutes 10x glut set Reps/Minutes 5x5 Comments cues to progress to bridge TrA Reps/Minutes 5x5 Manual Therapy Treatment Soft Tissue Mobilization psoas Mobilization Type Sustained Pressure Self-Care/Home Management Treatment Education Other Education MRI review, discussion of no matter what source of pain PT needs to deal with altered biomechanics and muscle imbalances. Activities Self-Care/Home Management Activities updated HEP to address muscle asymmetries, core/pelvic/hip weakness PT-OP-R Modalities Start: 02/02/23 07:55 Freq: Status: Active Protocol: Document 02/21/23 08:47 SAK (Rec: 02/21/23 09:08 [facility] [id number]) Hot Pack/Cold Pack Treatment Hot Pack Location kianna HS, right groin Patient Position Hooklying Treatment Duration (minutes) 15 Patient Tolerance Good PT-OP-T Assessment and Plan Start: 02/02/23 07:55 Freq: Status: Active Protocol: Document 02/21/23 08:47 [facility] (Rec: 02/21/23 09:01 [facility] [id number]) Physical Therapy Assessment Goals Two Impairment antalgic gait Short Term Goal (STG) Patient able to ambulate on level surfaces with trekking pole with no limp or compensatory movements STG Duration 03/19/23 Chief Steward/Stewardess Goal (LTG) Patient able to walk without assistive device on level and with LRD on uneven ground without limp LTG Duration 05/05/23 Three Impairment activity tolerance Impairment LEFS 14% Short Term Goal (STG) Improve LEFS score to at least 40% as measure of improved function and activity tolerance. STG Duration 03/19/23 Penitentiary Goal (LTG) Improve LEFS score to at least 75% as measure of improved function and activity tolerance LTG Duration 05/05/23 One Impairment right hip pain as high as 9/10 Impairment Impairment in functional use of her left UE including reaching overhead, behind her back, out to side Penitentiary Goal (LTG) Patient to report hip pain no greater than 2/10 with all usual activities LTG Duration 05/05/23 Assessment Summary Assessment Treatment limited due to patient 25 min late, discussion and patient education regarding MRI results and importance of correcting altered biomechanics and muscle asymmetries. Physical Therapy Plan Frequency and Duration Frequency of Treatment 2x/Week Duration of treatment (weeks) 12 Plan of Care Start Date 02/02/23 Plan of Care End Date 05/05/23 Therapeutic Interventions Therapeutic Interventions Gait Training,Home Exercise Program,Joint Mobilizations, Manual Therapy,Neuromuscular Re-education,Patient/Caregiver Education,Self-Care/Home Management,Soft Tissue Mobilization,Taping, Therapeutic Activities, Therapeutic Exercises Modalities Cold Pack/Ice Massage,Electric Stimulation,Hot Packs, Infrared Therapy,Ultrasound Next Visit Focus/Plan Next Note Type Treatment Note Next Visit Plan Pt. to have another MRI per her report. Continue PT for core, pelvic, and hip weakness with emphasis on posterior chain strengthening. Manual treatment as indicated.
--- NOTE | 2023-02-27 17:17 | PT.OTN ---
Current Diagnoses Other chronic pain (02/27/23) Cervicalgia (02/27/23) Right lower quadrant pain (02/27/23) Difficulty in walking, not elsewhere classified (02/27/23) Fall on same level, unspecified, sequela (02/27/23) Physical Therapy Treatment Note PT-OP-A Visit Information Start: 02/02/23 07:55 Freq: Status: Active Protocol: Document 02/27/23 10:30 SAK (Rec: 02/27/23 11:17 SAK [id number]) Out-Patient Physical Therapy Visit Information Visit Information Visit Type Treatment Note Visit Start Time 10:30 Visit Stop Time 11:30 Total Visit Minutes 60 Visit Number 5 Evaluation Information Evaluation Date 02/02/23 PT-OP-B Current Condition Start: 02/02/23 07:55 Freq: Status: Active Protocol: Document 02/02/23 09:36 SAK (Rec: 02/02/23 10:18 SAK [id number]) Current Condition History of Current Condition Onset Date F Current Complaints right groin pain History of Current Condition right groin pain exacerbation s/p falls x 2 while on vacation; 1x when missed curb, twisted on leg as she fell. Partially fell on tram during acceleration of tram went straight back into people. Having some clicking in her hip. Prior fall 10 days after Easter also exacerbated 8 years ago fall down stairs with hyperextension of right LE. Has had a couple OMT treatments, relief doesn't last. REferred to massage therapist Philly Montesinos; worked on sartorius ,gracilis, psoas; seeing her every other week. Also pain lateral lower leg. Prior Treatments and Tests MRI next week at [facility]. 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 Pain variable. Has switched to using trekking pole in left hand as instructed with patient reporting she feels improved gait with this change . PT-OP-D Balance Start: 02/02/23 07:55 Freq: Status: Active Protocol: Document 02/02/23 09:36 [facility] (Rec: 02/06/23 16:23 [facility] [id number]) OP-PT Balance Assessment Standing Balance Standing Balance Comments not tested due to acuity of pain Tripathi Fall Scale Copyright Permission PT-OP-G Mobility & Gait Start: 02/02/23 07:55 Freq: Status: Active Protocol: Document 02/02/23 09:36 [facility] (Rec: 02/06/23 16:23 [facility] [id number]) OP Gait Assessment Gait Gait Assistance Required: Independent Assistive Devices Orthotic/Prosthetic Devices or Brace: No Gait Deviations General Gait Pattern Antalgic,Decreased Stride Length,Decreased Feet Clearance,Flexed Trunk,Lateral Trunk Lean Factors Limiting Gait Function Factors Limiting Gait Function Pain Comments Gait Comments trekking pole, hyperextension right knee Stair Climbing Evaluation Technique/Endurance Stair Climbing Technique Step to Step PT-OP-H Neuro Start: 02/02/23 07:55 Freq: Status: Active Protocol: Document 02/02/23 09:36 [facility] (Rec: 02/06/23 16:23 [facility] [id number]) Sensation Evaluation Gross Sensation Gross Sensation Right LE Impaired PT-OP-J Posture/Palpation/Skin Start: 02/02/23 07:55 Freq: Status: Active Protocol: Document 02/02/23 09:36 [facility] (Rec: 02/06/23 16:23 [facility] [id number]) Posture Evaluation Position Standing L-Spine Posture Increased Lordosis Shoulder Posture (L) Rounded,(R) Rounded Scapula Posture (L) Protracted,(R) Protracted Arm Posture (L) Internally Rotated,(R) Internally Rotated Pelvis Posture Anteriorly Tilted Weight Distribution Weight Shifted Left Hip Posture (R) Externally Rotated Knee Posture (R) Genu Recurvatum Palpation Assessment Location right groin Palpation Findings Muscle Guarding,Tenderness PT-OP-K Range of Motion Start: 02/02/23 07:55 Freq: Status: Active Protocol: Document 02/02/23 09:36 [facility] (Rec: 02/06/23 16:23 [facility] [id number]) Hip Goniometric Range of Motion Hip Left Hip ROM WFL Yes Right Hip ROM WFL No Flexion w/Knee Flexed 90 Straight Leg Raise 70 Extension 0 Abduction 25 Internal Rotation 20 External Rotation 45 Hip ROM Limitations Hip ROM Limitations Soft Tissue Tightness,Pain Knee Goniometric Range of Motion Knee kianna Knee ROM WFL Yes PT-OP-L Special Tests Start: 02/02/23 07:55 Freq: Status: Active Protocol: Document 02/02/23 09:36 [facility] (Rec: 02/06/23 16:23 [facility] [id number]) Special Tests Hip Special Tests FADIR Test Results positive right ingrid test Test Results positive right Anterior Labral Test Test Results positive right Scour Test Test Results positive right GRACE Test Results positive right PT-OP-M Strength Start: 02/02/23 07:55 Freq: Status: Active Protocol: Document 02/02/23 09:36 [facility] (Rec: 02/06/23 16:23 [facility] [id number]) Hip Strength Hip Manual Muscle Testing Left Flexion (L2) 4- Good- Extension (S1) 3+ Fair+ Abduction 4- Good- Adduction 4- Good- External Rotation 4- Good- Internal Rotation 4 Good Right Flexion (L2) 3- Fair- Extension (S1) 3- Fair- Abduction 3- Fair- Adduction 3- Fair- External Rotation 3- Fair- Internal Rotation 3- Fair- Comments limited by pain PT-OP-Q Treatments Start: 02/02/23 07:55 Freq: Status: Active Protocol: Document 02/27/23 10:30 [facility] (Rec: 02/27/23 11:17 [facility] [id number]) Gym Equipment Shuttle Recovery Unilateral Squats Details single leg squats Resistance 25# Shuttle Recovery Platform Stable Reps/Time 2x10 Bilateral Squats Details bilateral squats Resistance 50 lbs Shuttle Recovery Platform Stable Reps/Time 2 x 10 Therapeutic Exercises Supine Exercises bridge Supine Exercise Name kianna and unil Reps/Minutes 10x ea Comments PT holding right LE during left bridge march Reps/Minutes 10x Comments cues for core activation heel slides Equipment Used slider sheet, pillow under knee Reps/Minutes 10x Comments cues for core engagement, leg extension as lowers, unable full ext right TrA Reps/Minutes 5x5 Manual Therapy Treatment Soft Tissue Mobilization psoas Mobilization Type Sustained Pressure Joint Mobilizations right hip Direction posterior glide, lateral and inf distraction Grade III Body Position Hooklying PT-OP-R Modalities Start: 02/02/23 07:55 Freq: Status: Active Protocol: Document 02/27/23 10:30 [facility]AK (Rec: 02/27/23 11:17 SAK [id number]) Hot Pack/Cold Pack Treatment Hot Pack Location kianna HS, right groin Patient Position Hooklying Treatment Duration (minutes) 15 Patient Tolerance Good PT-OP-T Assessment and Plan Start: 02/02/23 07:55 Freq: Status: Active Protocol: Document 02/27/23 10:30 [facility]AK (Rec: 02/27/23 11:17 [facility]AK [id number]) Physical Therapy Assessment Goals Two Impairment antalgic gait Short Term Goal (STG) Patient able to ambulate on level surfaces with trekking pole with no limp or compensatory movements STG Duration 03/19/23 Electric Motor Tester Goal (LTG) Patient able to walk without assistive device on level and with LRD on uneven ground without limp LTG Duration 05/05/23 Three Impairment activity tolerance Impairment LEFS 14% Short Term Goal (STG) Improve LEFS score to at least 40% as measure of improved function and activity tolerance. STG Duration 03/19/23 Electric Motor Tester Goal (LTG) Improve LEFS score to at least 75% as measure of improved function and activity tolerance LTG Duration 05/05/23 One Impairment right hip pain as high as 9/10 Impairment Impairment in functional use of her left UE including reaching overhead, behind her back, out to side Electric Motor Tester Goal (LTG) Patient to report hip pain no greater than 2/10 with all usual activities LTG Duration 05/05/23 Assessment Summary Assessment patient compliance to HEP only fair with patient citing busy schedule. PT stressed importance of HEP compliance. Patient reported inc pain with joint mob toward end of treatment today during posterior glide. Physical Therapy Plan Frequency and Duration Frequency of Treatment 2x/Week Duration of treatment (weeks) 12 Plan of Care Start Date 02/02/23 Plan of Care End Date 05/05/23 Therapeutic Interventions Therapeutic Interventions Gait Training,Home Exercise Program,Joint Mobilizations, Manual Therapy,Neuromuscular Re-education,Patient/Caregiver Education,Self-Care/Home Management,Soft Tissue Mobilization,Taping, Therapeutic Activities, Therapeutic Exercises Modalities Cold Pack/Ice Massage,Electric Stimulation,Hot Packs, Infrared Therapy,Ultrasound Next Visit Focus/Plan Next Note Type Treatment Note Next Visit Plan Continue PT for core, pelvic, and hip weakness with emphasis on posterior chain strengthening. Manual treatment as indicated.
--- NOTE | 2023-03-13 10:49 | PT.OTN ---
Current Diagnoses Other chronic pain (03/13/23) Cervicalgia (03/13/23) Right lower quadrant pain (03/13/23) Difficulty in walking, not elsewhere classified (03/13/23) Fall on same level, unspecified, sequela (03/13/23) Physical Therapy Treatment Note PT-OP-A Visit Information Start: 02/02/23 07:55 Freq: Status: Active Protocol: Document 03/13/23 07:58 SAK (Rec: 03/13/23 08:46 SAK [id number]) Out-Patient Physical Therapy Visit Information Visit Information Visit Type Treatment Note Visit Start Time 07:59 Visit Stop Time 08:59 Total Visit Minutes 60 Visit Number 6 Evaluation Information Evaluation Date 02/02/23 PT-OP-B Current Condition Start: 02/02/23 07:55 Freq: Status: Active Protocol: Document 03/13/23 07:58 SAK (Rec: 03/13/23 08:46 SAK [id number]) Current Condition History of Current Condition Onset Date F Current Complaints right groin pain History of Current Condition right groin pain exacerbation s/p falls x 2 while on vacation; 1x when missed curb, twisted on leg as she fell. Partially fell on tram during acceleration of tram went straight back into people. Having some clicking in her hip. Prior fall 10 days after Easter also exacerbated 8 years ago fall down stairs with hyperextension of right LE. Has had a couple OMT treatments, relief doesn't last. REferred to massage therapist Philly Montesinos; worked on sartorius ,gracilis, psoas; seeing her every other week. Also pain lateral lower leg. Prior Treatments and Tests MRI next week at [facility]. Future Testing and Treatments Planned none planned at this time PT-OP-C Subjective Start: 02/02/23 07:55 Freq: Status: Active Protocol: Document 03/13/23 07:58 SAK (Rec: 03/13/23 08:46 SAK [id number]) OP-PT Subjective Patient Comments Patient Comments Had MRI; showed labral tear and advanced arthritis. Had new weightbearing x-rays right hip showed severe arthritis. Physician wants PT for low back and hip. Cortisone shot recommended but patient doesn 't want to have. Patient reports pain persists at high level. At this point planning to have GIUSEPPE. States her doctor wants her to do nonweight-bearing PT; recommend aquatic PT. PT-OP-D Balance Start: 02/02/23 07:55 Freq: Status: Active Protocol: Document 02/02/23 09:36 [facility] (Rec: 02/06/23 16:23 [facility] [id number]) OP-PT Balance Assessment Standing Balance Standing Balance Comments not tested due to acuity of pain Tripathi Fall Scale Copyright Permission PT-OP-G Mobility & Gait Start: 02/02/23 07:55 Freq: Status: Active Protocol: Document 02/02/23 09:36 [facility] (Rec: 02/06/23 16:23 [facility] [id number]) OP Gait Assessment Gait Gait Assistance Required: Independent Assistive Devices Orthotic/Prosthetic Devices or Brace: No Gait Deviations General Gait Pattern Antalgic,Decreased Stride Length,Decreased Feet Clearance,Flexed Trunk,Lateral Trunk Lean Factors Limiting Gait Function Factors Limiting Gait Function Pain Comments Gait Comments trekking pole, hyperextension right knee Stair Climbing Evaluation Technique/Endurance Stair Climbing Technique Step to Step PT-OP-H Neuro Start: 02/02/23 07:55 Freq: Status: Active Protocol: Document 02/02/23 09:36 [facility] (Rec: 02/06/23 16:23 [facility] [id number]) Sensation Evaluation Gross Sensation Gross Sensation Right LE Impaired PT-OP-J Posture/Palpation/Skin Start: 02/02/23 07:55 Freq: Status: Active Protocol: Document 02/02/23 09:36 SAK (Rec: 02/06/23 16:23 [facility] [id number]) Posture Evaluation Position Standing L-Spine Posture Increased Lordosis Shoulder Posture (L) Rounded,(R) Rounded Scapula Posture (L) Protracted,(R) Protracted Arm Posture (L) Internally Rotated,(R) Internally Rotated Pelvis Posture Anteriorly Tilted Weight Distribution Weight Shifted Left Hip Posture (R) Externally Rotated Knee Posture (R) Genu Recurvatum Palpation Assessment Location right groin Palpation Findings Muscle Guarding,Tenderness PT-OP-K Range of Motion Start: 02/02/23 07:55 Freq: Status: Active Protocol: Document 02/02/23 09:36 SAK (Rec: 02/06/23 16:23 [facility] [id number]) Hip Goniometric Range of Motion Hip Left Hip ROM WFL Yes Right Hip ROM WFL No Flexion w/Knee Flexed 90 Straight Leg Raise 70 Extension 0 Abduction 25 Internal Rotation 20 External Rotation 45 Hip ROM Limitations Hip ROM Limitations Soft Tissue Tightness,Pain Knee Goniometric Range of Motion Knee kianan Knee ROM WFL Yes PT-OP-L Special Tests Start: 02/02/23 07:55 Freq: Status: Active Protocol: Document 02/02/23 09:36 [facility] (Rec: 02/06/23 16:23 [facility] [id number]) Special Tests Hip Special Tests FADIR Test Results positive right ingrid test Test Results positive right Anterior Labral Test Test Results positive right Scour Test Test Results positive right GRACE Test Results positive right PT-OP-M Strength Start: 02/02/23 07:55 Freq: Status: Active Protocol: Document 02/02/23 09:36 [facility] (Rec: 02/06/23 16:23 [facility] [id number]) Hip Strength Hip Manual Muscle Testing Left Flexion (L2) 4- Good- Extension (S1) 3+ Fair+ Abduction 4- Good- Adduction 4- Good- External Rotation 4- Good- Internal Rotation 4 Good Right Flexion (L2) 3- Fair- Extension (S1) 3- Fair- Abduction 3- Fair- Adduction 3- Fair- External Rotation 3- Fair- Internal Rotation 3- Fair- Comments limited by pain PT-OP-Q Treatments Start: 02/02/23 07:55 Freq: Status: Active Protocol: Document 03/13/23 07:58 [facility] (Rec: 03/13/23 10:49 [facility] [id number]) Manual Therapy Treatment Joint Mobilizations right hip Direction posterior glide, lateral and inf distraction Grade III Body Position Hooklying Self-Care/Home Management Treatment Education Patient Education Home Exercise Program,Pain Management Other Education review HEP of isometric ex, encouraged for pre-op Discussed imaging findings and doctor recommendations, plan for aquatic therapy PT-OP-R Modalities Start: 02/02/23 07:55 Freq: Status: Active Protocol: Document 03/13/23 07:58 [facility] (Rec: 03/13/23 10:49 [facility] [id number]) Hot Pack/Cold Pack Treatment Hot Pack Location kianna HS, right groin Patient Position Hooklying Treatment Duration (minutes) 15 Patient Tolerance Good Infrared Treatment Treatment left groin, gracilis Duration (Minutes) 6 Body Position Supine Continuous/Pulsed cont Program or Protocal chronic pain and stiffness PT-OP-T Assessment and Plan Start: 02/02/23 07:55 Freq: Status: Active Protocol: Document 03/13/23 07:58 [facility] (Rec: 03/13/23 08:46 [facility] [id number]) Physical Therapy Assessment Goals Two Impairment antalgic gait Short Term Goal (STG) Patient able to ambulate on level surfaces with trekking pole with no limp or compensatory movements STG Duration 03/19/23 Intermediate Goal (LTG) Patient able to walk without assistive device on level and with LRD on uneven ground without limp LTG Duration 05/05/23 Three Impairment activity tolerance Impairment LEFS 14% Short Term Goal (STG) Improve LEFS score to at least 40% as measure of improved function and activity tolerance. STG Duration 03/19/23 Dosier Operator Goal (LTG) Improve LEFS score to at least 75% as measure of improved function and activity tolerance LTG Duration 05/05/23 One Impairment right hip pain as high as 9/10 Impairment Impairment in functional use of her left UE including reaching overhead, behind her back, out to side Dosier Operator Goal (LTG) Patient to report hip pain no greater than 2/10 with all usual activities LTG Duration 05/05/23 Assessment Summary Assessment Patient planning to have right GIUSEPPE after having second MRI and viewing and discussing with physician. At this time he wants her doing nonweight- bearing PT so will be transferring pt PT care to [facility]. Physical Therapy Plan Frequency and Duration Frequency of Treatment 2x/Week Duration of treatment (weeks) 12 Plan of Care Start Date 02/02/23 Plan of Care End Date 05/05/23 Therapeutic Interventions Therapeutic Interventions Gait Training,Home Exercise Program,Joint Mobilizations, Manual Therapy,Neuromuscular Re-education,Patient/Caregiver Education,Self-Care/Home Management,Soft Tissue Mobilization,Taping, Therapeutic Activities, Therapeutic Exercises Modalities Cold Pack/Ice Massage,Electric Stimulation,Hot Packs, Infrared Therapy,Ultrasound Discharge Physical Therapy Discharge Reasons Change in Medical Status Discharge Comments Needs Aquatic therapy, plan for GIUSEPPE Next Visit Focus/Plan Next Note Type Treatment Note Next Visit Plan Discharge from PT
--- NOTE | 2023-03-13 16:00 | PT.OTN ---
Current Diagnoses Other chronic pain (03/13/23) Cervicalgia (03/13/23) Right lower quadrant pain (03/13/23) Difficulty in walking, not elsewhere classified (03/13/23) Fall on same level, unspecified, sequela (03/13/23) Physical Therapy Treatment Note PT-OP-A Visit Information Start: 02/02/23 07:55 Freq: Status: Active Protocol: Document 03/13/23 07:58 SAK (Rec: 03/13/23 08:46 SAK [id number]) Out-Patient Physical Therapy Visit Information Visit Information Visit Type Treatment Note Visit Start Time 07:59 Visit Stop Time 08:59 Total Visit Minutes 60 Visit Number 6 Evaluation Information Evaluation Date 02/02/23 PT-OP-B Current Condition Start: 02/02/23 07:55 Freq: Status: Active Protocol: Document 03/13/23 07:58 SAK (Rec: 03/13/23 08:46 SAK [id number]) Current Condition History of Current Condition Onset Date F Current Complaints right groin pain History of Current Condition right groin pain exacerbation s/p falls x 2 while on vacation; 1x when missed curb, twisted on leg as she fell. Partially fell on tram during acceleration of tram went straight back into people. Having some clicking in her hip. Prior fall 10 days after Easter also exacerbated 8 years ago fall down stairs with hyperextension of right LE. Has had a couple OMT treatments, relief doesn't last. REferred to massage therapist Philly Montesinos; worked on sartorius ,gracilis, psoas; seeing her every other week. Also pain lateral lower leg. Prior Treatments and Tests MRI next week at [facility]. Future Testing and Treatments Planned none planned at this time PT-OP-C Subjective Start: 02/02/23 07:55 Freq: Status: Active Protocol: Document 03/13/23 07:58 SAK (Rec: 03/13/23 08:46 SAK [id number]) OP-PT Subjective Patient Comments Patient Comments Had MRI; showed labral tear and advanced arthritis. Had new weightbearing x-rays right hip showed severe arthritis. Physician wants PT for low back and hip. Cortisone shot recommended but patient doesn 't want to have. Patient reports pain persists at high level. At this point planning to have GIUSEPPE. States her doctor wants her to do nonweight-bearing PT; recommend aquatic PT. PT-OP-D Balance Start: 02/02/23 07:55 Freq: Status: Active Protocol: Document 02/02/23 09:36 [facility] (Rec: 02/06/23 16:23 [facility] [id number]) OP-PT Balance Assessment Standing Balance Standing Balance Comments not tested due to acuity of pain Tripathi Fall Scale Copyright Permission PT-OP-G Mobility & Gait Start: 02/02/23 07:55 Freq: Status: Active Protocol: Document 02/02/23 09:36 [facility] (Rec: 02/06/23 16:23 [facility] [id number]) OP Gait Assessment Gait Gait Assistance Required: Independent Assistive Devices Orthotic/Prosthetic Devices or Brace: No Gait Deviations General Gait Pattern Antalgic,Decreased Stride Length,Decreased Feet Clearance,Flexed Trunk,Lateral Trunk Lean Factors Limiting Gait Function Factors Limiting Gait Function Pain Comments Gait Comments trekking pole, hyperextension right knee Stair Climbing Evaluation Technique/Endurance Stair Climbing Technique Step to Step PT-OP-H Neuro Start: 02/02/23 07:55 Freq: Status: Active Protocol: Document 02/02/23 09:36 [facility] (Rec: 02/06/23 16:23 [facility] [id number]) Sensation Evaluation Gross Sensation Gross Sensation Right LE Impaired PT-OP-J Posture/Palpation/Skin Start: 02/02/23 07:55 Freq: Status: Active Protocol: Document 02/02/23 09:36 SAK (Rec: 02/06/23 16:23 [facility] [id number]) Posture Evaluation Position Standing L-Spine Posture Increased Lordosis Shoulder Posture (L) Rounded,(R) Rounded Scapula Posture (L) Protracted,(R) Protracted Arm Posture (L) Internally Rotated,(R) Internally Rotated Pelvis Posture Anteriorly Tilted Weight Distribution Weight Shifted Left Hip Posture (R) Externally Rotated Knee Posture (R) Genu Recurvatum Palpation Assessment Location right groin Palpation Findings Muscle Guarding,Tenderness PT-OP-K Range of Motion Start: 02/02/23 07:55 Freq: Status: Active Protocol: Document 02/02/23 09:36 SAK (Rec: 02/06/23 16:23 [facility] [id number]) Hip Goniometric Range of Motion Hip Left Hip ROM WFL Yes Right Hip ROM WFL No Flexion w/Knee Flexed 90 Straight Leg Raise 70 Extension 0 Abduction 25 Internal Rotation 20 External Rotation 45 Hip ROM Limitations Hip ROM Limitations Soft Tissue Tightness,Pain Knee Goniometric Range of Motion Knee kianna Knee ROM WFL Yes PT-OP-L Special Tests Start: 02/02/23 07:55 Freq: Status: Active Protocol: Document 02/02/23 09:36 [facility] (Rec: 02/06/23 16:23 [facility] [id number]) Special Tests Hip Special Tests FADIR Test Results positive right ingrid test Test Results positive right Anterior Labral Test Test Results positive right Scour Test Test Results positive right GRACE Test Results positive right PT-OP-M Strength Start: 02/02/23 07:55 Freq: Status: Active Protocol: Document 02/02/23 09:36 [facility] (Rec: 02/06/23 16:23 [facility] [id number]) Hip Strength Hip Manual Muscle Testing Left Flexion (L2) 4- Good- Extension (S1) 3+ Fair+ Abduction 4- Good- Adduction 4- Good- External Rotation 4- Good- Internal Rotation 4 Good Right Flexion (L2) 3- Fair- Extension (S1) 3- Fair- Abduction 3- Fair- Adduction 3- Fair- External Rotation 3- Fair- Internal Rotation 3- Fair- Comments limited by pain PT-OP-Q Treatments Start: 02/02/23 07:55 Freq: Status: Active Protocol: Document 03/13/23 07:58 [facility] (Rec: 03/13/23 10:49 [facility] [id number]) Manual Therapy Treatment Joint Mobilizations right hip Direction posterior glide, lateral and inf distraction Grade III Body Position Hooklying Self-Care/Home Management Treatment Education Patient Education Home Exercise Program,Pain Management Other Education review HEP of isometric ex, encouraged for pre-op Discussed imaging findings and doctor recommendations, plan for aquatic therapy PT-OP-R Modalities Start: 02/02/23 07:55 Freq: Status: Active Protocol: Document 03/13/23 07:58 [facility] (Rec: 03/13/23 10:49 [facility] [id number]) Hot Pack/Cold Pack Treatment Hot Pack Location kianna HS, right groin Patient Position Hooklying Treatment Duration (minutes) 15 Patient Tolerance Good Infrared Treatment Treatment left groin, gracilis Duration (Minutes) 6 Body Position Supine Continuous/Pulsed cont Program or Protocal chronic pain and stiffness PT-OP-T Assessment and Plan Start: 02/02/23 07:55 Freq: Status: Active Protocol: Document 03/13/23 07:58 [facility] (Rec: 03/13/23 08:46 [facility] [id number]) Physical Therapy Assessment Goals Two Impairment antalgic gait Short Term Goal (STG) Patient able to ambulate on level surfaces with trekking pole with no limp or compensatory movements STG Duration 03/19/23 Alf Goal (LTG) Patient able to walk without assistive device on level and with LRD on uneven ground without limp LTG Duration 05/05/23 Three Impairment activity tolerance Impairment LEFS 14% Short Term Goal (STG) Improve LEFS score to at least 40% as measure of improved function and activity tolerance. STG Duration 03/19/23 Hospital Account Manager Goal (LTG) Improve LEFS score to at least 75% as measure of improved function and activity tolerance LTG Duration 05/05/23 One Impairment right hip pain as high as 9/10 Impairment Impairment in functional use of her left UE including reaching overhead, behind her back, out to side Hospital Account Manager Goal (LTG) Patient to report hip pain no greater than 2/10 with all usual activities LTG Duration 05/05/23 Assessment Summary Assessment Patient planning to have right GIUSEPPE after having second MRI and viewing and discussing with physician. At this time he wants her doing nonweight- bearing PT; recommend aquatic PT at [facility], consider cont land-based PT with [facility] or transfer full PT care to [facility], patient to consider. Physical Therapy Plan Frequency and Duration Frequency of Treatment 2x/Week Duration of treatment (weeks) 12 Plan of Care Start Date 02/02/23 Plan of Care End Date 05/05/23 Therapeutic Interventions Therapeutic Interventions Gait Training,Home Exercise Program,Joint Mobilizations, Manual Therapy,Neuromuscular Re-education,Patient/Caregiver Education,Self-Care/Home Management,Soft Tissue Mobilization,Taping, Therapeutic Activities, Therapeutic Exercises Modalities Cold Pack/Ice Massage,Electric Stimulation,Hot Packs, Infrared Therapy,Ultrasound Discharge Physical Therapy Discharge Reasons Change in Medical Status Discharge Comments Needs Aquatic therapy, plan for GIUSEPPE Next Visit Focus/Plan Next Note Type Treatment Note Next Visit Plan Discuss POC, assure independence with GIUSEPPE ex program in prep for anticipated GIUSEPPE.
--- NOTE | 2023-03-20 09:57 | PT.OTN ---
Current Diagnoses Other chronic pain (03/20/23) Cervicalgia (03/20/23) Right lower quadrant pain (03/20/23) Difficulty in walking, not elsewhere classified (03/20/23) Fall on same level, unspecified, sequela (03/20/23) Physical Therapy Treatment Note PT-OP-A Visit Information Start: 02/02/23 07:55 Freq: Status: Active Protocol: Document 03/20/23 11:17 SAK (Rec: 03/20/23 12:[address] [facility] [id number]) Out-Patient Physical Therapy Visit Information Visit Information Visit Type Treatment Note Visit Start Time 11:17 Visit Stop Time 12:14 Total Visit Minutes 57 Visit Number 7 Evaluation Information Evaluation Date 02/02/23 PT-OP-B Current Condition Start: 02/02/23 07:55 Freq: Status: Active Protocol: Document 03/13/23 07:58 SAK (Rec: 03/13/23 08:46 SAK [id number]) Current Condition History of Current Condition Onset Date F Current Complaints right groin pain History of Current Condition right groin pain exacerbation s/p falls x 2 while on vacation; 1x when missed curb, twisted on leg as she fell. Partially fell on tram during acceleration of tram went straight back into people. Having some clicking in her hip. Prior fall 10 days after Easter also exacerbated 8 years ago fall down stairs with hyperextension of right LE. Has had a couple OMT treatments, relief doesn't last. REferred to massage therapist Philly Montesinos; worked on sartorius ,gracilis, psoas; seeing her every other week. Also pain lateral lower leg. Prior Treatments and Tests MRI next week at [facility]. Future Testing and Treatments Planned none planned at this time PT-OP-C Subjective Start: 02/02/23 07:55 Freq: Status: Active Protocol: Document 03/20/23 11:17 SAK (Rec: 03/20/23 12:[address] [facility] [id number]) OP-PT Subjective Patient Comments Patient Comments Unable to get into aquatic therapy until end of March , wants to continue land-based PT due to this. Awaiting date for GIUSEPPE, needs to be UTI for 1 month; still on antibiotics course for 10 days . PT-OP-D Balance Start: 02/02/23 07:55 Freq: Status: Active Protocol: Document 02/02/23 09:36 SAK (Rec: 02/06/23 16:[address] [facility] [id number]) OP-PT Balance Assessment Standing Balance Standing Balance Comments not tested due to acuity of pain Tripathi Fall Scale Copyright Permission PT-OP-G Mobility & Gait Start: 02/02/23 07:55 Freq: Status: Active Protocol: Document 02/02/23 09:36 SAK (Rec: 02/06/23 16:[address] [facility] [id number]) OP Gait Assessment Gait Gait Assistance Required: Independent Assistive Devices Orthotic/Prosthetic Devices or Brace: No Gait Deviations General Gait Pattern Antalgic,Decreased Stride Length,Decreased Feet Clearance,Flexed Trunk,Lateral Trunk Lean Factors Limiting Gait Function Factors Limiting Gait Function Pain Comments Gait Comments trekking pole, hyperextension right knee Stair Climbing Evaluation Technique/Endurance Stair Climbing Technique Step to Step PT-OP-H Neuro Start: 02/02/23 07:55 Freq: Status: Active Protocol: Document 02/02/23 09:36 SAK (Rec: 02/06/23 16:[address] [facility] [id number]) Sensation Evaluation Gross Sensation Gross Sensation Right LE Impaired PT-OP-J Posture/Palpation/Skin Start: 02/02/23 07:55 Freq: Status: Active Protocol: Document 02/02/23 09:36 SAK (Rec: 02/06/23 16:[address] [facility] [id number]) Posture Evaluation Position Standing L-Spine Posture Increased Lordosis Shoulder Posture (L) Rounded,(R) Rounded Scapula Posture (L) Protracted,(R) Protracted Arm Posture (L) Internally Rotated,(R) Internally Rotated Pelvis Posture Anteriorly Tilted Weight Distribution Weight Shifted Left Hip Posture (R) Externally Rotated Knee Posture (R) Genu Recurvatum Palpation Assessment Location right groin Palpation Findings Muscle Guarding,Tenderness PT-OP-K Range of Motion Start: 02/02/23 07:55 Freq: Status: Active Protocol: Document 02/02/23 09:36 SAK (Rec: 02/06/23 16:[address] [facility] [id number]) Hip Goniometric Range of Motion Hip Left Hip ROM WFL Yes Right Hip ROM WFL No Flexion w/Knee Flexed 90 Straight Leg Raise 70 Extension 0 Abduction 25 Internal Rotation 20 External Rotation 45 Hip ROM Limitations Hip ROM Limitations Soft Tissue Tightness,Pain Knee Goniometric Range of Motion Knee kianna Knee ROM WFL Yes PT-OP-L Special Tests Start: 02/02/23 07:55 Freq: Status: Active Protocol: Document 02/02/23 09:[address] [facility] (Rec: 02/06/23 16:[address] [facility] [id number]) Special Tests Hip Special Tests FADIR Test Results positive right ingrid test Test Results positive right Anterior Labral Test Test Results positive right Scour Test Test Results positive right GRACE Test Results positive right PT-OP-M Strength Start: 02/02/23 07:55 Freq: Status: Active Protocol: Document 02/02/23 09:[address] [facility] (Rec: 02/06/23 16:[address] [facility] [id number]) Hip Strength Hip Manual Muscle Testing Left Flexion (L2) 4- Good- Extension (S1) 3+ Fair+ Abduction 4- Good- Adduction 4- Good- External Rotation 4- Good- Internal Rotation 4 Good Right Flexion (L2) 3- Fair- Extension (S1) 3- Fair- Abduction 3- Fair- Adduction 3- Fair- External Rotation 3- Fair- Internal Rotation 3- Fair- Comments limited by pain PT-OP-Q Treatments Start: 02/02/23 07:55 Freq: Status: Active Protocol: Document 03/20/23 11:[address] [facility] (Rec: 03/20/23 12:[address] [facility] [id number]) Therapeutic Exercises Supine Exercises SAQ Reps/Minutes 10x bridge Supine Exercise Name kinana and unil Reps/Minutes 10x ea Comments small lift heel slides Equipment Used slider sheet, pillow under knee Reps/Minutes 10x Comments cues for core engagement, leg extension as lowers, unable full ext right heel dig Equipment Used bolster Reps/Minutes 10x glut set Reps/Minutes 5x5 Comments cues to progress to bridge supine clam Equipment Used purple TB Reps/Minutes 10x5 Comments isometric ball squeeze Side bilateral Reps/Minutes 5x5 TrA Reps/Minutes 5x5 Sidelying Exercises hip abd Reps/Minutes 10x Sitting Exercises core isometric Sitting Exercise Name table push down, pull up Comments next session Manual Therapy Treatment Soft Tissue Mobilization quads Mobilization Type Myofascial Release,Strumming psoas Mobilization Type Sustained Pressure gracilis Mobilization Type Myofascial Release,Strumming Self-Care/Home Management Treatment Education Patient Education Home Exercise Program,Pain Management Other Education importance of HEP, get into pool for water walking, ther ex PT-OP-R Modalities Start: 02/02/23 07:55 Freq: Status: Active Protocol: Document 03/20/23 11:[address] [facility] (Rec: 03/21/23 09:[address] [facility] [id number]) Hot Pack/Cold Pack Treatment Hot Pack Location kianna HS, right groin Patient Position Hooklying Treatment Duration (minutes) 15 Patient Tolerance Good PT-OP-T Assessment and Plan Start: 02/02/23 07:55 Freq: Status: Active Protocol: Document 03/20/23 11:[address] [facility] (Rec: 03/20/23 12:[address] [facility] [id number]) Physical Therapy Assessment Goals Two Impairment antalgic gait Short Term Goal (STG) Patient able to ambulate on level surfaces with trekking pole with no limp or compensatory movements STG Duration 03/19/23 Fire Code Inspector Goal (LTG) Patient able to walk without assistive device on level and with LRD on uneven ground without limp LTG Duration 05/05/23 Three Impairment activity tolerance Impairment LEFS 14% Short Term Goal (STG) Improve LEFS score to at least 40% as measure of improved function and activity tolerance. STG Duration 03/19/23 Fire Code Inspector Goal (LTG) Improve LEFS score to at least 75% as measure of improved function and activity tolerance LTG Duration 05/05/23 One Impairment right hip pain as high as 9/10 Impairment Impairment in functional use of her left UE including reaching overhead, behind her back, out to side Fire Code Inspector Goal (LTG) Patient to report hip pain no greater than 2/10 with all usual activities LTG Duration 05/05/23 Assessment Summary Assessment Patient unable to get into aquatic PT for at least 1 month at this time. Patient educated/reminded beneficial exercises (has previously done aquatic PT) and importance of being as strong as possible prior to GIUSEPPE as she has gained weight and lost strength with inactivity due to pain. Physical Therapy Plan Frequency and Duration Frequency of Treatment 2x/Week Duration of treatment (weeks) 12 Plan of Care Start Date 02/02/23 Plan of Care End Date 05/05/23 Therapeutic Interventions Therapeutic Interventions Gait Training,Home Exercise Program,Joint Mobilizations, Manual Therapy,Neuromuscular Re-education,Patient/Caregiver Education,Self-Care/Home Management,Soft Tissue Mobilization,Taping, Therapeutic Activities, Therapeutic Exercises Modalities Cold Pack/Ice Massage,Electric Stimulation,Hot Packs, Infrared Therapy,Ultrasound Next Visit Focus/Plan Next Note Type Treatment Note Next Visit Plan GIUSEPPE prep with ther ex (no weight-bearing) , manual therapy and modalities as needed for pain.
--- NOTE | 2023-03-20 10:11 | PT.OTN ---
Current Diagnoses Other chronic pain (03/13/23) Cervicalgia (03/13/23) Right lower quadrant pain (03/13/23) Difficulty in walking, not elsewhere classified (03/13/23) Fall on same level, unspecified, sequela (03/13/23) Physical Therapy Treatment Note PT-OP-A Visit Information Start: 02/02/23 07:55 Freq: Status: Active Protocol: Document 03/13/23 07:58 SAK (Rec: 03/13/23 08:46 SAK [id number]) Out-Patient Physical Therapy Visit Information Visit Information Visit Type Treatment Note Visit Start Time 07:59 Visit Stop Time 08:59 Total Visit Minutes 60 Visit Number 6 Evaluation Information Evaluation Date 02/02/23 PT-OP-B Current Condition Start: 02/02/23 07:55 Freq: Status: Active Protocol: Document 03/13/23 07:58 SAK (Rec: 03/13/23 08:46 SAK [id number]) Current Condition History of Current Condition Onset Date F Current Complaints right groin pain History of Current Condition right groin pain exacerbation s/p falls x 2 while on vacation; 1x when missed curb, twisted on leg as she fell. Partially fell on tram during acceleration of tram went straight back into people. Having some clicking in her hip. Prior fall 10 days after Easter also exacerbated 8 years ago fall down stairs with hyperextension of right LE. Has had a couple OMT treatments, relief doesn't last. REferred to massage therapist Philly Montesinos; worked on sartorius ,gracilis, psoas; seeing her every other week. Also pain lateral lower leg. Prior Treatments and Tests MRI next week at [facility]. Future Testing and Treatments Planned none planned at this time PT-OP-C Subjective Start: 02/02/23 07:55 Freq: Status: Active Protocol: Document 03/13/23 07:58 SAK (Rec: 03/13/23 08:46 SAK [id number]) OP-PT Subjective Patient Comments Patient Comments Had MRI; showed labral tear and advanced arthritis. Had new weightbearing x-rays right hip showed severe arthritis. Physician wants PT for low back and hip. Cortisone shot recommended but patient doesn 't want to have. Patient reports pain persists at high level. At this point planning to have GIUSEPPE. States her doctor wants her to do nonweight-bearing PT; recommend aquatic PT. PT-OP-D Balance Start: 02/02/23 07:55 Freq: Status: Active Protocol: Document 02/02/23 09:36 [facility] (Rec: 02/06/23 16:23 [facility] [id number]) OP-PT Balance Assessment Standing Balance Standing Balance Comments not tested due to acuity of pain Tripathi Fall Scale Copyright Permission PT-OP-G Mobility & Gait Start: 02/02/23 07:55 Freq: Status: Active Protocol: Document 02/02/23 09:36 [facility] (Rec: 02/06/23 16:23 [facility] [id number]) OP Gait Assessment Gait Gait Assistance Required: Independent Assistive Devices Orthotic/Prosthetic Devices or Brace: No Gait Deviations General Gait Pattern Antalgic,Decreased Stride Length,Decreased Feet Clearance,Flexed Trunk,Lateral Trunk Lean Factors Limiting Gait Function Factors Limiting Gait Function Pain Comments Gait Comments trekking pole, hyperextension right knee Stair Climbing Evaluation Technique/Endurance Stair Climbing Technique Step to Step PT-OP-H Neuro Start: 02/02/23 07:55 Freq: Status: Active Protocol: Document 02/02/23 09:36 [facility] (Rec: 02/06/23 16:23 [facility] [id number]) Sensation Evaluation Gross Sensation Gross Sensation Right LE Impaired PT-OP-J Posture/Palpation/Skin Start: 02/02/23 07:55 Freq: Status: Active Protocol: Document 02/02/23 09:36 SAK (Rec: 02/06/23 16:23 [facility] [id number]) Posture Evaluation Position Standing L-Spine Posture Increased Lordosis Shoulder Posture (L) Rounded,(R) Rounded Scapula Posture (L) Protracted,(R) Protracted Arm Posture (L) Internally Rotated,(R) Internally Rotated Pelvis Posture Anteriorly Tilted Weight Distribution Weight Shifted Left Hip Posture (R) Externally Rotated Knee Posture (R) Genu Recurvatum Palpation Assessment Location right groin Palpation Findings Muscle Guarding,Tenderness PT-OP-K Range of Motion Start: 02/02/23 07:55 Freq: Status: Active Protocol: Document 02/02/23 09:36 SAK (Rec: 02/06/23 16:23 [facility] [id number]) Hip Goniometric Range of Motion Hip Left Hip ROM WFL Yes Right Hip ROM WFL No Flexion w/Knee Flexed 90 Straight Leg Raise 70 Extension 0 Abduction 25 Internal Rotation 20 External Rotation 45 Hip ROM Limitations Hip ROM Limitations Soft Tissue Tightness,Pain Knee Goniometric Range of Motion Knee kianna Knee ROM WFL Yes PT-OP-L Special Tests Start: 02/02/23 07:55 Freq: Status: Active Protocol: Document 02/02/23 09:36 [facility] (Rec: 02/06/23 16:23 [facility] [id number]) Special Tests Hip Special Tests FADIR Test Results positive right ingrid test Test Results positive right Anterior Labral Test Test Results positive right Scour Test Test Results positive right GRACE Test Results positive right PT-OP-M Strength Start: 02/02/23 07:55 Freq: Status: Active Protocol: Document 02/02/23 09:36 [facility] (Rec: 02/06/23 16:23 [facility] [id number]) Hip Strength Hip Manual Muscle Testing Left Flexion (L2) 4- Good- Extension (S1) 3+ Fair+ Abduction 4- Good- Adduction 4- Good- External Rotation 4- Good- Internal Rotation 4 Good Right Flexion (L2) 3- Fair- Extension (S1) 3- Fair- Abduction 3- Fair- Adduction 3- Fair- External Rotation 3- Fair- Internal Rotation 3- Fair- Comments limited by pain PT-OP-Q Treatments Start: 02/02/23 07:55 Freq: Status: Active Protocol: Document 03/13/23 07:58 [facility] (Rec: 03/13/23 10:49 [facility] [id number]) Manual Therapy Treatment Joint Mobilizations right hip Direction posterior glide, lateral and inf distraction Grade III Body Position Hooklying Self-Care/Home Management Treatment Education Patient Education Home Exercise Program,Pain Management Other Education review HEP of isometric ex, encouraged for pre-op Discussed imaging findings and doctor recommendations, plan for aquatic therapy PT-OP-R Modalities Start: 02/02/23 07:55 Freq: Status: Active Protocol: Document 03/13/23 07:58 [facility] (Rec: 03/13/23 10:49 [facility] [id number]) Hot Pack/Cold Pack Treatment Hot Pack Location kianna HS, right groin Patient Position Hooklying Treatment Duration (minutes) 15 Patient Tolerance Good Infrared Treatment Treatment left groin, gracilis Duration (Minutes) 6 Body Position Supine Continuous/Pulsed cont Program or Protocal chronic pain and stiffness PT-OP-T Assessment and Plan Start: 02/02/23 07:55 Freq: Status: Active Protocol: Document 03/13/23 07:58 [facility] (Rec: 03/13/23 08:46 [facility] [id number]) Physical Therapy Assessment Goals Two Impairment antalgic gait Short Term Goal (STG) Patient able to ambulate on level surfaces with trekking pole with no limp or compensatory movements STG Duration 03/19/23 Retirement Goal (LTG) Patient able to walk without assistive device on level and with LRD on uneven ground without limp LTG Duration 05/05/23 Three Impairment activity tolerance Impairment LEFS 14% Short Term Goal (STG) Improve LEFS score to at least 40% as measure of improved function and activity tolerance. STG Duration 03/19/23 Broommaking Supervisor Goal (LTG) Improve LEFS score to at least 75% as measure of improved function and activity tolerance LTG Duration 05/05/23 One Impairment right hip pain as high as 9/10 Impairment Impairment in functional use of her left UE including reaching overhead, behind her back, out to side Broommaking Supervisor Goal (LTG) Patient to report hip pain no greater than 2/10 with all usual activities LTG Duration 05/05/23 Assessment Summary Assessment Patient planning to have right GIUSEPPE after having second MRI and viewing and discussing with physician. At this time he wants her doing nonweight- bearing PT; recommend aquatic PT at [facility], consider cont land-based PT with [facility] or transfer full PT care to [facility], patient to consider. Physical Therapy Plan Frequency and Duration Frequency of Treatment 2x/Week Duration of treatment (weeks) 12 Plan of Care Start Date 02/02/23 Plan of Care End Date 05/05/23 Therapeutic Interventions Therapeutic Interventions Gait Training,Home Exercise Program,Joint Mobilizations, Manual Therapy,Neuromuscular Re-education,Patient/Caregiver Education,Self-Care/Home Management,Soft Tissue Mobilization,Taping, Therapeutic Activities, Therapeutic Exercises Modalities Cold Pack/Ice Massage,Electric Stimulation,Hot Packs, Infrared Therapy,Ultrasound Discharge Physical Therapy Discharge Reasons Change in Medical Status Discharge Comments Needs Aquatic therapy, plan for GIUSEPPE Next Visit Focus/Plan Next Note Type Treatment Note Next Visit Plan Discuss POC, assure independence with GIUSEPPE ex program in prep for anticipated GIUSEPPE.
--- NOTE | 2023-04-05 13:31 | PT-OP ANOTE ---
cancelled due to schedule conflict
--- NOTE | 2023-04-05 13:32 | PT-OP ANOTE ---
cancelled due to schedule conflict
--- NOTE | 2023-05-15 12:58 | PT.OPDS ---
Current Diagnoses Other chronic pain (03/20/23) Cervicalgia (03/20/23) Right lower quadrant pain (03/20/23) Difficulty in walking, not elsewhere classified (03/20/23) Fall on same level, unspecified, sequela (03/20/23) Visit Care Team Role Provider Type Cecilia Brown DO Attending Provider Physician Family Provider Primary Care Provider Referring Provider Specialty: Medical Address: [address] [place] [address], [address], [place], [address] Email: [email or web address] Visit Number Visit Number 7 Discharge Summary PT-OP-B Current Condition Start: 02/02/23 07:55 Freq: Status: Active Protocol: Document 04/03/23 08:48 SAK (Rec: 04/03/23 08:59 SAK [id number]) Current Condition History of Current Condition Onset Date F Current Complaints right groin pain History of Current Condition right groin pain exacerbation s/p falls x 2 while on vacation; 1x when missed curb, twisted on leg as she fell. Partially fell on tram during acceleration of tram went straight back into people. Having some clicking in her hip. Prior fall 10 days after Easter also exacerbated 8 years ago fall down stairs with hyperextension of right LE. Has had a couple OMT treatments, relief doesn't last. REferred to massage therapist Philly Montesinos; worked on sartorius ,gracilis, psoas; seeing her every other week. Also pain lateral lower leg. Prior Treatments and Tests MRI next week at [facility]. Future Testing and Treatments Planned none planned at this time PT-OP-C Subjective Start: 02/02/23 07:55 Freq: Status: Active Protocol: Document 03/20/23 11:17 SAK (Rec: 03/20/23 12:03 SAK [id number]) OP-PT Subjective Patient Comments Patient Comments Unable to get into aquatic therapy until end of March , wants to continue land-based PT due to this. Awaiting date for GIUSEPPE, needs to be UTI for 1 month; still on antibiotics course for 10 days . PT-OP-D Balance Start: 02/02/23 07:55 Freq: Status: Active Protocol: Document 02/02/23 09:36 SAK (Rec: 02/06/23 16:23 SAK [id number]) OP-PT Balance Assessment Standing Balance Standing Balance Comments not tested due to acuity of pain Tripathi Fall Scale Copyright Permission PT-OP-G Mobility & Gait Start: 02/02/23 07:55 Freq: Status: Active Protocol: Document 02/02/23 09:36 [facility] (Rec: 02/06/23 16:23 [facility] [id number]) OP Gait Assessment Gait Gait Assistance Required: Independent Assistive Devices Orthotic/Prosthetic Devices or Brace: No Gait Deviations General Gait Pattern Antalgic,Decreased Stride Length,Decreased Feet Clearance,Flexed Trunk,Lateral Trunk Lean Factors Limiting Gait Function Factors Limiting Gait Function Pain Comments Gait Comments trekking pole, hyperextension right knee Stair Climbing Evaluation Technique/Endurance Stair Climbing Technique Step to Step PT-OP-H Neuro Start: 02/02/23 07:55 Freq: Status: Active Protocol: Document 02/02/23 09:36 [facility] (Rec: 02/06/23 16:23 [facility] [id number]) Sensation Evaluation Gross Sensation Gross Sensation Right LE Impaired PT-OP-J Posture/Palpation/Skin Start: 02/02/23 07:55 Freq: Status: Active Protocol: Document 02/02/23 09:36 [facility] (Rec: 02/06/23 16:23 [facility] [id number]) Posture Evaluation Position Standing L-Spine Posture Increased Lordosis Shoulder Posture (L) Rounded,(R) Rounded Scapula Posture (L) Protracted,(R) Protracted Arm Posture (L) Internally Rotated,(R) Internally Rotated Pelvis Posture Anteriorly Tilted Weight Distribution Weight Shifted Left Hip Posture (R) Externally Rotated Knee Posture (R) Genu Recurvatum Palpation Assessment Location right groin Palpation Findings Muscle Guarding,Tenderness PT-OP-K Range of Motion Start: 02/02/23 07:55 Freq: Status: Active Protocol: Document 02/02/23 09:36 SAK (Rec: 02/06/23 16:23 [facility] [id number]) Hip Goniometric Range of Motion Hip Left Hip ROM WFL Yes Right Hip ROM WFL No Flexion w/Knee Flexed 90 Straight Leg Raise 70 Extension 0 Abduction 25 Internal Rotation 20 External Rotation 45 Hip ROM Limitations Hip ROM Limitations Soft Tissue Tightness,Pain Knee Goniometric Range of Motion Knee kianna Knee ROM WFL Yes PT-OP-L Special Tests Start: 02/02/23 07:55 Freq: Status: Active Protocol: Document 02/02/23 09:36 [facility] (Rec: 02/06/23 16:23 [facility] [id number]) Special Tests Hip Special Tests FADIR Test Results positive right ingrid test Test Results positive right Anterior Labral Test Test Results positive right Scour Test Test Results positive right GRACE Test Results positive right PT-OP-M Strength Start: 02/02/23 07:55 Freq: Status: Active Protocol: Document 02/02/23 09:36 [facility] (Rec: 02/06/23 16:23 [facility] [id number]) Hip Strength Hip Manual Muscle Testing Left Flexion (L2) 4- Good- Extension (S1) 3+ Fair+ Abduction 4- Good- Adduction 4- Good- External Rotation 4- Good- Internal Rotation 4 Good Right Flexion (L2) 3- Fair- Extension (S1) 3- Fair- Abduction 3- Fair- Adduction 3- Fair- External Rotation 3- Fair- Internal Rotation 3- Fair- Comments limited by pain PT-OP-T Assessment and Plan Start: 02/02/23 07:55 Freq: Status: Active Protocol: Document 05/15/23 12:58 [facility] (Rec: 05/15/23 12:58 [facility] [id number]) Physical Therapy Plan Discharge Physical Therapy Discharge Reasons No Longer Attending PT
== END 2023-05-17 11:10 | disposition home or self-care (01) ==
LOC: PHYS 11:15
PROVIDERS: Absent Provider Family Medicine; Family Provider Family Medicine; PCP Family Medicine; Referring Provider Family Medicine; Visit Provider Family Medicine
DX: M54.2 Cervicalgia (principal); R10.31 Right lower quadrant pain; G89.29 Other chronic pain; W18.30XS Fall on same level, unspecified, sequela; R26.2 Difficulty in walking, not elsewhere classified
CPT/HCPCS: 97110; 97116; 97140; 97162; 97535

== ENCOUNTER → 2023-04-10 07:55 | Outpatient (CLI) | payer MEDICARE, OTHER, SELFPAY ==
[2023-04-10 08:46] LABS: Appearance Urine UA CLEAR; Bilirubin Urine UA NEGATIVE (NEGATIVE); Color Urine UA YELLOW; Glucose Urine UA NEGATIVE (Negative); Ketones Urine UA NEGATIVE (NEGATIVE); Leukocyte Esterase Urine UA NEGATIVE (NEGATIVE); Nitrite Urine UA NEGATIVE (Negative); Occult Blood Urine UA NEGATIVE (Negative); Protein Urine UA TRACE (Negative); Specific Gravity Urine UA 1.015 (1.000-1.035); Urobilinogen Urine UA 0.2 E.U./dL (0.2)
[2023-04-10 08:47] LABS: pH Urine UA 5.5 (4.5-8.0)
[2023-04-10 08:51] LABS: Bacteria Urine None Seen; Culture Indicated Urine Cult Not Indicated; RBC Urine None Seen (0-5/HPF); Squamous Epithelial Cell Urine None Seen (0-5/HPF); Urine Comments Microscopic Normal; WBC Urine None Seen (0-5/HPF)
== END ==
PROVIDERS: Family Provider Family Medicine; PCP Family Medicine; Referring Provider Family Medicine; Visit Provider Family Medicine
DX: N30.01 Acute cystitis with hematuria (principal); Z01.818 Encounter for other preprocedural examination
CPT/HCPCS: 81001

== ENCOUNTER → 2023-05-31 08:15 | Outpatient (CLI) | payer MEDICARE, OTHER, SELFPAY ==
[2023-05-31 09:43] LABS: HEMOLYSIS < 15 (0-50); Potassium 4.4 mmol/L (3.4-5.1)
== END ==
PROVIDERS: Family Provider Family Medicine; PCP Family Medicine; Referring Provider Physician Assistant; Visit Provider Physician Assistant
DX: L08.9 Local infection of the skin and subcutaneous tissue, unspecified (principal)
CPT/HCPCS: 36415; 84132

== ENCOUNTER → 2023-06-12 09:21 | Outpatient (CLI) | payer MEDICARE, OTHER, SELFPAY ==
[2023-06-12 10:45] LABS: HEMOLYSIS < 15 (0-50); Potassium 4.4 mmol/L (3.4-5.1)
== END ==
PROVIDERS: Family Provider Family Medicine; PCP Family Medicine; Referring Provider Family Medicine; Visit Provider Family Medicine
DX: Z79.2 Long term (current) use of antibiotics (principal); E87.8 Other disorders of electrolyte and fluid balance, not elsewhere classified
CPT/HCPCS: 36415; 84132

== ENCOUNTER → 2023-06-20 11:00 | Outpatient (CLI) | payer MEDICARE, OTHER, SELFPAY ==
--- NOTE | 2023-06-20 | DI.MG.S_ITS ---
BILATERAL DIGITAL SCREENING MAMMOGRAM 3D/2D WITH CAD: 06/20/2023 CLINICAL: Routine screening. Comparison is made to exams dated: 05/13/2022 mammogram, 04/08/2021 mammogram, and 04/04/2020 mammogram - [facility]. There are scattered areas of fibroglandular density in both breasts (category b / 25%-50% glandular tissue). Current study was also evaluated with a Computer Aided Detection (CAD) system. No significant masses, calcifications, or other findings are seen in either breast. There has been no significant interval change. IMPRESSION: NEGATIVE There is no mammographic evidence of malignancy. A 1 year screening mammogram is recommended. Based on the Tyrer Cuzick model (a risk assessment model) the patient's lifetime risk is 3.4% and her 10 year risk is 0.0%. According to the ACR, ACS, and NCCN guidelines, an annual breast MRI exam along with mammogram is recommended if the patient's lifetime risk is 20% or greater. This exam was interpreted at Station ID: [id number]. NOTE: For mammograms, a report in lay terms will be sent to the patient. Approximately 15% of breast malignancies will not be visualized mammographically. In the management of a palpable breast mass, a negative mammogram must not discourage biopsy of a clinically suspicious lesion. Electronically Signed By: Live [email or web address]:06/21/2023 09:04:13 letter sent: Normal Exam ACR BI-RADS Category 1: Negative [id number]
== END ==
PROVIDERS: Family Provider Family Medicine; PCP Family Medicine; Referring Provider Family Medicine; Visit Provider Family Medicine
DX: Z12.31 Encounter for screening mammogram for malignant neoplasm of breast (principal)
CPT/HCPCS: 77063; 77067

== ENCOUNTER → 2023-08-02 09:05 | Outpatient (CLI) | payer MEDICARE, OTHER, SELFPAY | PROVIDERS: Family Provider Family Medicine; PCP Family Medicine; Visit Provider Physician Assistant | DX: R30.0 Dysuria (principal) | CPT/HCPCS: 87077; 87086; 87186 ==

== ENCOUNTER 2023-08-11 00:55 | Emergency (ER) | payer MEDICARE, OTHER, SELFPAY ==
[2023-08-11 01:05] VITALS: BP 195/80; PULSE 61; RESP 20; TEMP 36.6; O2SAT 97; BMI 36.3
[2023-08-11 01:31] VITALS: BP 197/83; PULSE 61; RESP 20; O2SAT 96
[2023-08-11 01:44] LABS: Add Manual Diff / Slide Review NO; Basophils Absolute Auto 100 /uL (0-100); Basophils Percent Auto 1.1 % (0-2); Eosinophils Absolute Auto 300 /uL (0-450); Eosinophils Percent Auto 3.6 % (2-4); Hematocrit 38.6 % (36-46); Hemoglobin 13.3 g/dL (12.0-16.0); Lymphocytes Absolute Auto 2100 /uL (1100-4500); Mean Corpuscular HGB Conc 34.5 % (30-36); Mean Corpuscular Volume 87.1 fL (80-100); Monocytes Absolute Auto 400 /uL (0-900); Monocytes Percent Auto 6.1 % (3-14); Neutrophils Absolute Auto 4500 /uL (1500-7000); Neutrophils Percent Auto 61.2 % (50-75); Platelet Count 193 X10^3/uL (150-400); Red Blood Cell Count 4.43 X10^6/uL (4.0-5.2); Red Cell Distribution Width 13.9 % (11.6-14.8); White Blood Cell Count 7.4 X10^3/uL (4.5-11.0)
--- NOTE | 2023-08-11 01:46 | ED_ITS ---
HPI - General Adult General Chief complaint: Hypertension Stated complaint: high blood pressure uncontrolled Time Seen by Provider: 08/11/23 00:58 Source: patient Mode of arrival: Ambulatory History of Present Illness HPI narrative: Patient is a 78-year-old female. Has a history of hypertension. Has been on Diovan 2 times a day for many years. Several months ago metoprolol was added to her regimen and that metoprolol was increased approximately 3 weeks ago. Since the metoprolol was increased she has felt quite a bit of fatigue and what she describes as lethargy and being tired throughout the day. Today they checked her blood pressure to see whether or not the increase in metoprolol was helping and found that her afternoon blood pressure was significantly elevated. She was asymptomatic at the time. She took her evening dose of blood pressure medicines and afterwards took her blood pressure once again and it was elevated that time as well. She continued to be asymptomatic. She tried to contact her primary care doctor's office man was instructed to come to the emergency department for evaluation. Here in the ER she denies headache, vision changes, chest pain, shortness of breath, nausea vomiting. Related Data Home Medications Medication Instructions Recorded Confirmed quercetin PO DAILY 01/18/22 07/31/23 cholecalciferol (vitamin D3) 25 25 mcg PO DAILY 01/22/22 07/31/23 mcg (1,000 unit) capsule zinc acetate 25 mg (zinc) capsule 25 mg PO DAILY 01/22/22 07/31/23 Vinia PO 03/10/22 07/31/23 coenzyme Q10 PO 03/10/22 07/31/23 ergocalciferol (vitamin D2) 10 mcg 10 mcg PO DAILY 03/10/22 07/31/23 (400 unit) tablet multivitamin 1 tab PO DAILY 03/10/22 07/31/23 vitamin K2 PO 03/10/22 07/31/23 Previous Rx's Medication Instructions Recorded phenazopyridine 100 mg tablet 100 mg PO TID PRN pain 6 doses #10 03/28/22 tabs blood-glucose meter #1 ea 05/25/22 activated charcoal 200 mg capsule 400 mg (2 x 200 mg) PO ONCE PRN 12/13/22 diarrhea #10 caps estradiol 0.01% (0.1 mg/gram) 1 g vaginal 2XW #42.5 grams 08/22/23 vaginal cream tramadol 50 mg tablet See Rx Instructions PO DAILY 04/14/23 pre/post op hip pain #60 tabs Disabled Parking Permit #1 ea 05/09/23 blood-glucose meter,continuous #1 ea 05/25/23 (Dexcom G6 R And D Lab Technician) blood-glucose sensor (Dexcom G6 #3 ea 05/25/23 Sensor device) blood-glucose transmitter (Dexcom #1 ea 05/25/23 G6 Transmitter device) Diovan 160 mg tablet (valsartan) 160 mg PO BID #180 tabs 07/31/23 metoprolol succinate 50 mg 100 mg (2 x 50 mg) PO BID #180 tabs 07/31/23 tablet,extended release 24 hr albuterol sulfate 90 mcg/actuation See Rx Instructions .Route 08/02/23 aerosol inhaler (Ventolin HFA) .COMPLEX #18 grams blood sugar diagnostic (Blood #100 ea 08/02/23 Glucose Test strips) lancets 33 gauge #100 ea 08/02/23 metformin 500 mg tablet 500 mg PO BIDWMEAL #180 tabs 08/02/23 nitrofurantoin macrocrystal 100 mg 100 mg PO BID #10 caps 08/02/23 capsule amoxicillin 875 mg-potassium 1 tab PO BID #20 tabs 08/04/23 clavulanate 125 mg tablet hydralazine 10 mg tablet 10 mg PO BID #60 tabs 08/11/23 Allergies Allergy/AdvReac Type Severity Reaction Status Date / Time gum mastic Allergy Severe rash, Verified 08/11/23 01:15 [From MASTISOL LIQUID blistering ADHESIVE] methyl salicylate Allergy Severe rash, Verified 08/11/23 01:15 [From MASTISOL LIQUID blistering ADHESIVE] storax Allergy Severe rash, Verified 08/11/23 01:15 [From MASTISOL LIQUID blistering ADHESIVE] tetracycline Allergy Mild RASH Verified 08/11/23 01:15 methylprednisolone Allergy Unknown Verified 08/02/23 09:16 adhesive AdvReac Unknown LONG, Verified 08/11/23 01:15 SKINNY, STERILE STRIPS: SURGERY Review of Systems Review of Systems ROS Unobtainable: All systems reviewed & are unremarkable except as noted in HPI and below Patient History Medical History Acute UTI Epidermal cyst (~04/2023) Left hamstring injury Osteoarthritis of right hip Ground-level fall Supraspinatus tendon tear Tachycardia determined by examination of pulse JOHNSON (dyspnea on exertion) Hyperlipidemia Strain of adductor nando muscle Strain of right psoas muscle Varicose veins of left lower extremity Greater trochanteric bursitis of left hip Left hamstring muscle strain Hypercalcemia Hyperparathyroidism Asthma Cataract CTS (carpal tunnel syndrome) Chronic back pain Osteoarthritis Hypertension Measles Essential hypertension (04/25/17) Surgical History (Updated 06/12/23 @ 14:25 by Cecilia Brown DO) H/O colonoscopy with polypectomy (~10/2020) Anesthesia Status post parathyroidectomy (2015) History of knee replacement (2016) History of spinal fusion (2011) History of spinal fusion (06/2009) Status post tonsillectomy and adenoidectomy (1947) Family History Father CAD (coronary artery disease) Hypertension Lewy body dementia Grandfather Heart disease Mother Leukemia Acute ITP Detached retina H/O splenectomy Grandfather Cancer of soft palate Social History household members: family housing: house pets and animals: Yes (Cat and dog) Smoking Status: Never smoker alcohol intake: never Smoking Status: Never smoker alcohol intake frequency: 0-2 drinks per day Substance Use Type: does not use Exam Initial Vital Signs Initial Vital Signs: Vital Signs Temperature 97.9 F 08/11/23 01:05 Pulse Rate 61 08/11/23 01:05 Respiratory Rate 20 08/11/23 01:05 Blood Pressure 195/80 H 08/11/23 01:05 Pulse Oximetry 97 08/11/23 01:05 Oxygen Delivery Method Room Air 08/11/23 01:05 Const General: cooperative, comfortable and No ill appearing HENMT Head: normal to inspection and normocephalic Resp Effort & Inspection: normal respiratory effort Auscultation: clear to auscultation bilaterally Cardio Rate: regular rate Rhythm: regular rhythm GI Inspection: normal to inspection Skin General: no rashes or lesions noted Neuro General: patient alert, patient awake, patient oriented x3 and moves all extremities Extrem General: No edema Course Orders Ordered: ED Orders 08/11/23 01:05 EKG-12 Lead Stat 01/19/24 01:30 Basic Metabolic Panel Stat Complete Blood Count AUTO DIFF Stat Troponin & CK Cardiac Panel Stat Discontinued Medications Hydralazine HCl (Hydralazine 10 Mg Tablet) 10 mg PO NOW ONE Stop: 08/11/23 02:18 Last Admin: 08/11/23 02:47 Dose: 10 mg Documented By: WIL Vital Signs Vital signs: Vital Signs - 8 hr 08/11/23 01:05 08/11/23 01:31 08/11/23 01:59 Temperature 97.9 F Pulse Rate 61 61 60 Respiratory Rate 20 20 16 Blood Pressure 195/80 H 197/83 H 205/84 H Pulse Oximetry 97 96 96 Oxygen Delivery Method Room Air Room Air Room Air 08/11/23 02:31 Temperature Pulse Rate 58 L Respiratory Rate 21 Blood Pressure 184/79 H Pulse Oximetry 93 Oxygen Delivery Method Room Air Medical Decision Making Lab Data Lab results reviewed: Yes I reviewed the patient's lab results. 08/11/23 01:30 08/11/23 01:30 Labs: Lab Results 08/11/23 Range/Units 01:30 WBC 7.4 (4.5-11.0) X10^3/uL RBC 4.43 (4.0-5.2) X10^6/uL Hgb 13.3 (12.0-16.0) g/dL Hct 38.6 (36-46) % MCV 87.1 (80-100) fL MCH 30.0 (26-34) PG MCHC 34.5 (30-36) % RDW 13.9 (11.6-14.8) % Plt Count 193 (150-400) X10^3/uL Neut % (Auto) 61.2 (50-75) % Lymph % (Auto) 28.0 (25-40) % [place] % (Auto) 6.1 (3-14) % Eos % (Auto) 3.6 (2-4) % Baso % (Auto) 1.1 (0-2) % Neut # (Auto) 4500 (5145-1652) /uL Lymph # (Auto) 2100 (4484-8386) /uL [place] # (Auto) 400 (0-900) /uL Eos # (Auto) 300 (0-450) /uL Baso # (Auto) 100 (0-100) /uL Sodium 137 (137-145) mmol/L Potassium 4.2 (3.4-5.1) mmol/L Chloride 104 (98-107) mmol/L Carbon Dioxide 25 (22-32) mmol/L BUN 16 (7-17) mg/dL Creatinine 0.66 (0.52-1.04) mg/dL Estimated GFR > 60 (>60) mL/min BUN/Creatinine Ratio 24.2 H (6-22) Glucose 139 H (80-110) mg/dL Calcium 9.9 (8.4-10.2) mg/dL Total Creatine Kinase 43 (30-135) U/L Troponin I < 0.012 (0.01-0.034) ng/mL ECG Data Attestation: I personally reviewed and interpreted this ECG as follows: Interpretation: Sinus rhythm Ventricular rate is 62 Normal axis Normal QRS Normal QTC No ST T wave changes MDM Narrative Medical decision making narrative: Patient is asymptomatic. Has no indication of acute ACS, CHF, intracranial hemorrhage, pulmonary edema, encephalopathy. She has been taking her Diovan 2 times a day and her metoprolol 2 times a day as well. I suspect that her ?lethargy? he was because of the increase in the metoprolol. I suspect that this will improve with time. Despite these medications her blood pressure does seem to continue to be elevated. I discussed this with her. We discussed options. She would like to cut back on her metoprolol because she feels like it is making her very fatigued. Her heart rate is in the low 60s. Plan will be to have her cut back on her metoprolol from 1-1/2 tablets twice a day to just 1 tablet twice a day. I do feel that she was going to need a 3rd blood pressure medication. We discussed options. She was hesitant about starting hydrochlorothiazide because she was concerned about the fact that it was a diuretic and becoming dehydrated. Her sister who is at bedside states that she takes hydralazine. That is not an unreasonable choice for her today. We will start her on 10 mg of hydralazine twice a day. This may need to be adjusted but her primary doctor can do this. The patient understands that her primary doctor may want to change this whole regimen to around when she does have a follow-up. I advised the patient to continue to take her blood pressure at home. We discussed return precautions. She expressed understanding and agreement. Discharge Plan Departure Patient Disposition: Home Clinical Impression: Hypertension Instructions: DI for High Blood Pressure Activity Restrictions/Additional Instructions: I recommend that you cut your metoprolol down from 1-1/2 tablets twice a day to just 1 tablet twice a day. Start taking the hydralazine as directed. Continue to take your Diovan as directed. Contact your primary care doctor for a follow- up. Continue the rest of your medications as directed. Return to the emergency department for new symptoms. Prescriptions: New hydralazine 10 mg tablet 10 mg PO BID Qty: 60 0RF No Action zinc acetate 25 mg (zinc) capsule 25 mg PO DAILY cholecalciferol (vitamin D3) 25 mcg (1,000 unit) capsule 25 mcg PO DAILY nitrofurantoin macrocrystal 100 mg capsule 100 mg PO BID Qty: 10 0RF Rx Instructions: must administer with a meal/food (DME) Dexcom G6 Sensor Device See Rx Instructions .ROUTE .MEDSUPPLY Qty: 3 12RF Rx Instructions: USE TO CONTINUOUSLY MONITOR BLOOD GLUCOSE LEVELS. CHANGE EVERY 10 DAYS. (DME) Dexcom G6 R And D Lab Technician Misc See Rx Instructions .ROUTE .MEDSUPPLY Qty: 1 1RF Rx Instructions: USE TO CONTINUOUSLY MONITOR BLOOD GLUCOSE LEVELS. REPLACE EVERY 365 DAYS OR IF BROKEN (DME) Dexcom G6 Transmitter Device See Rx Instructions .ROUTE .MEDSUPPLY Qty: 1 3RF Rx Instructions: USE TO CONTINUOUSLY MONITOR BLOOD GLUCOSE LEVELS. REPLACE EVERY 90 DAYS. albuterol sulfate [Ventolin HFA] 90 mcg/actuation HFA aerosol inhaler See Rx Instructions .ROUTE .COMPLEX Qty: 18 6RF Dose Instruction: INHALE 2 PUFFS BY MOUTH EVERY 4 HOURS NEEDED FOR SHORTNESS OF BREATH Rx Instructions: INHALE 2 PUFFS BY MOUTH EVERY 4-6 HOURS NEEDED FOR SHORTNESS OF BREATH (DME) Blood Glucose Test Strip See Rx Instructions .ROUTE .MEDSUPPLY Qty: 100 4RF Rx Instructions: Use to test blood glucose once daily. (DME) lancets 33 gauge misc See Rx Instructions .ROUTE .MEDSUPPLY Qty: 100 4RF Rx Instructions: Use to test blood glucose once daily metformin 500 mg tablet 500 mg PO BIDWMEAL Qty: 180 1RF amoxicillin-pot clavulanate 875-125 mg tablet 1 tab PO BID Qty: 20 0RF tramadol 50 mg tablet See Rx Instructions PO DAILY Qty: 60 0RF Rx Instructions: 1-2 tabs orally daily; estradiol 0.01 % (0.1 mg/gram) cream 1 g vaginal 2XW Qty: 42.5 3RF (DME) Disabled Parking Permit See Rx Instructions .ROUTE .MEDSUPPLY Qty: 1 0RF Rx Instructions: Valid for 5 years quercetin PO DAILY multivitamin Tablet 1 tab PO DAILY ergocalciferol (vitamin D2) 10 mcg (400 unit) tablet 10 mcg PO DAILY vitamin K2 PO coenzyme Q10 PO Vinia PO (DME) blood-glucose meter Kit See Rx Instructions .ROUTE .MEDSUPPLY Qty: 1 0RF Rx Instructions: Use to test blood glucose DAILY activated charcoal 200 mg capsule 400 mg PO ONCE PRN (Reason: diarrhea) Qty: 10 0RF Rx Instructions: take up to three doses a day as needed, at least an hour away from medications metoprolol succinate 50 mg tablet extended release 24 hr 100 mg PO BID Qty: 180 4RF Rx Instructions: Take 1 tablet QAM. Take 1 tablet QHS only if systolic BP is >160 valsartan [Diovan] 160 mg tablet 160 mg PO BID Qty: 180 3RF Rx Instructions: Take one tablet by mouth twice a day. phenazopyridine 100 mg tablet 100 mg PO TID PRN (Reason: pain) Qty: 10 0RF Referrals: Cecilia Brown DO [Primary Care Provider] - Stand Alone Forms: Patient Portal/API
[2023-08-11 01:49] LABS: BUN Creatinine Ratio 24.2 (6-22); Blood Urea Nitrogen 16 mg/dL (7-17); Calcium 9.9 mg/dL (8.4-10.2); Carbon Dioxide 25 mmol/L (22-32); Chloride 104 mmol/L (98-107); Creatine Kinase 43 U/L (30-135); Estimated Glomerular Filt Rate > 60 mL/min (>60); Glucose 139 mg/dL (80-110); HEMOLYSIS 18 (0-50); Potassium 4.2 mmol/L (3.4-5.1); Sodium 137 mmol/L (137-145)
[2023-08-11 01:59] VITALS: BP 205/84; PULSE 60; RESP 16; O2SAT 96
[2023-08-11 02:01] LABS: Troponin I < 0.012 ng/mL (0.01-0.034)
[2023-08-11 02:31] VITALS: BP 184/79; PULSE 58; RESP 21; O2SAT 93
[2023-08-11] MEDS: HYDRALAZINE 10 MG TABLET PO (02:47)
== END 2023-08-11 02:51 | disposition home or self-care (01) ==
PROVIDERS: Emergency Provider Emergency Medicine; Family Provider Family Medicine; PCP Family Medicine
DX: I10 Essential (primary) hypertension (principal); R07.9 Chest pain, unspecified; Z79.899 Other long term (current) drug therapy
CPT/HCPCS: 36415; 80048; 82550; 84484; 85025; 93005; 93010; 99284

== ENCOUNTER 2023-08-25 09:02 | Emergency (ER) | payer MEDICARE, OTHER, SELFPAY ==
[2023-08-25] VITALS (12 sets, daily range): BP systolic 147–185; BP diastolic 63–81; PULSE 72–84; RESP 16–24; TEMP 36.9; O2SAT 91–97; BMI 35.5
--- NOTE | 2023-08-25 09:08 | DI.RAD.S_ITS ---
P a ROCEDURE: XR CHEST 1V INDICATIONS: SOB and CP TECHNIQUE: One view of the chest was acquired. COMPARISON: [facility], CR, XR CHEST 1V, 01/14/2022, 16:23. FINDINGS: Surgical changes and devices: Left shoulder arthroplasty. Lungs and pleura: Lungs are clear. No pleural effusions or pneumothorax. Mediastinum: Mediastinal contours appear normal. Heart size is normal. Bones and chest wall: No suspicious bony lesions. Overlying soft tissues appear unremarkable. IMPRESSION: No acute cardiopulmonary abnormality is seen. Dictated by: Rosalio Jensen M.D. on 08/25/2023 at 9:58 Approved by: Rosalio Jensen M.D. on 08/25/2023 at 10:06
--- NOTE | 2023-08-25 09:20 | ED.GENADULT ---
HPI - General Adult General Chief complaint: Chest Pain Stated complaint: sob, chest thightness/heaviness Time Seen by Provider: 08/25/23 09:07 Source: patient Mode of arrival: Ambulatory Limitations: no limitations History of Present Illness HPI narrative: Patient is a 78-year-old female. Has had issues with hypertension over the past 4-6 weeks. Has been on different medications in his had medications titrated and removed. She is currently on hydralazine, carvedilol and Diovan. She has been taking all of her medications as directed. She did take her medications this morning. States that approximately midnight last night she started to have chest discomfort and shortness of breath. The last time I evaluated her here in the emergency department she was hypertensive but had no symptoms. Her chest pain and shortness of breath has been persistent since midnight. Has had elevated blood pressures as well. She also has swelling in her legs. The swelling in her legs is new. She is unsure as to when this started but she did not have it the last time she was here in the ER. Related Data Home Medications Medication Instructions Recorded Confirmed quercetin PO DAILY 01/18/22 08/11/23 cholecalciferol (vitamin D3) 25 25 mcg PO DAILY 01/22/22 08/11/23 mcg (1,000 unit) capsule zinc acetate 25 mg (zinc) capsule 25 mg PO DAILY 01/22/22 08/11/23 Vinia PO 03/10/22 08/11/23 coenzyme Q10 PO 03/10/22 08/11/23 ergocalciferol (vitamin D2) 10 mcg 10 mcg PO DAILY 03/10/22 08/11/23 (400 unit) tablet multivitamin 1 tab PO DAILY 03/10/22 08/11/23 vitamin K2 PO 03/10/22 08/11/23 Previous Rx's Medication Instructions Recorded blood-glucose meter #1 ea 05/25/22 activated charcoal 200 mg capsule 400 mg (2 x 200 mg) PO ONCE PRN 12/13/22 diarrhea #10 caps estradiol 0.01% (0.1 mg/gram) 1 g vaginal 2XW #42.5 grams 03/14/23 vaginal cream tramadol 50 mg tablet See Rx Instructions PO DAILY 04/14/23 pre/post op hip pain #60 tabs Disabled Parking Permit #1 ea 05/09/23 blood-glucose meter,continuous #1 ea 05/25/23 (Dexcom G6 Physics And Astronomy Professor) blood-glucose sensor (Dexcom G6 #3 ea 05/25/23 Sensor device) blood-glucose transmitter (Dexcom #1 ea 05/25/23 G6 Transmitter device) Diovan 160 mg tablet (valsartan) 160 mg PO BID #180 tabs 07/31/23 albuterol sulfate 90 mcg/actuation See Rx Instructions .Route 08/02/23 aerosol inhaler (Ventolin HFA) .COMPLEX #18 grams blood sugar diagnostic (Blood #100 ea 08/02/23 Glucose Test strips) lancets 33 gauge #100 ea 08/02/23 metformin 500 mg tablet 500 mg PO BIDWMEAL #180 tabs 08/02/23 hydralazine 10 mg tablet 10 mg PO Q6H #60 tabs 08/11/23 hydralazine 50 mg tablet 50 mg PO 3XD #270 tabs 08/11/23 carvedilol 12.5 mg tablet 18.75 mg (1.5 x 12.5 mg) PO Q12H 08/18/23 #90 tabs furosemide 40 mg tablet (Lasix) 40 mg PO DAILY #30 tabs 08/25/23 Allergies Allergy/AdvReac Type Severity Reaction Status Date / Time gum mastic Allergy Severe rash, Verified 08/11/23 10:40 [From MASTISOL LIQUID blistering ADHESIVE] methyl salicylate Allergy Severe rash, Verified 08/11/23 10:40 [From MASTISOL LIQUID blistering ADHESIVE] storax Allergy Severe rash, Verified 08/11/23 10:40 [From MASTISOL LIQUID blistering ADHESIVE] tetracycline Allergy Mild RASH Verified 08/11/23 10:40 methylprednisolone Allergy Unknown Verified 08/11/23 10:40 adhesive AdvReac Unknown LONG, Verified 08/11/23 10:40 SKINNY, STERILE STRIPS: SURGERY Review of Systems Constitutional Constitutional: Reports system reviewed and no additional complaints, except as documented Cardiovascular Cardiovascular: Reports system reviewed and no additional complaints, except as documented Respiratory Respiratory: Reports system reviewed and no additional complaints, except as documented Gastrointestinal Gastrointestinal: Reports system reviewed and no additional complaints, except as documented Integumentary/Breasts Skin/Breast: Reports system reviewed and no additional complaints, except as documented Neurologic Neurologic: Reports system reviewed and no additional complaints, except as documented Hematologic/Lymphatic On Anticoagulants: No Patient History Medical History Acute UTI Epidermal cyst (~04/2023) Left hamstring injury Osteoarthritis of right hip Ground-level fall Supraspinatus tendon tear Tachycardia determined by examination of pulse JOHNSON (dyspnea on exertion) Hyperlipidemia Strain of adductor nando muscle Strain of right psoas muscle Varicose veins of left lower extremity Greater trochanteric bursitis of left hip Left hamstring muscle strain Hypercalcemia Hyperparathyroidism Asthma Cataract CTS (carpal tunnel syndrome) Chronic back pain Osteoarthritis Hypertension Measles Essential hypertension (04/25/17) Surgical History (Updated 06/12/23 @ 14:25 by Cecilia Brown DO) H/O colonoscopy with polypectomy (~10/2020) Anesthesia Status post parathyroidectomy (2015) History of knee replacement (2016) History of spinal fusion (2011) History of spinal fusion (06/2009) Status post tonsillectomy and adenoidectomy (1947) Family History Father CAD (coronary artery disease) Hypertension Lewy body dementia Grandfather Heart disease Mother Leukemia Acute ITP Detached retina H/O splenectomy Grandfather Cancer of soft palate Social History household members: family housing: house pets and animals: Yes (Cat and dog) Smoking Status: Never smoker alcohol intake: never Smoking Status: Never smoker alcohol intake frequency: 0-2 drinks per day Substance Use Type: does not use Exam Initial Vital Signs Initial Vital Signs: Vital Signs Pulse Oximetry 94 08/25/23 09:08 Const General: cooperative and No ill appearing HENNC Head: normal to inspection and normocephalic Resp Effort & Inspection: normal respiratory effort Auscultation: clear to auscultation bilaterally Cardio Rate: regular rate Rhythm: regular rhythm Heart Sounds: no murmurs Skin General: no rashes or lesions noted Neuro General: patient alert, patient awake, patient oriented x3 and moves all extremities Extrem General: edema Course Orders Ordered: ED Orders 08/25/23 09:08 XR chest 1V Stat 08/25/23 09:13 EKG-12 Lead Stat 08/25/23 09:25 Complete Blood Count AUTO DIFF Stat Comprehensive Metabolic Panel Stat Lipase Stat NT-proBNP (BNP-Adult 18+) Stat Troponin & CK Cardiac Panel Stat 08/25/23 11:25 Troponin & CK Cardiac Panel Stat Discontinued Medications Furosemide (Furosemide 40 Mg/4 Ml Vial) 40 mg IV NOW ONE Stop: 08/25/23 11:09 Last Admin: 08/25/23 11:41 Dose: 40 mg Documented By: LILLI Vital Signs Vital signs: Vital Signs - 8 hr 08/25/23 09:08 08/25/23 09:09 08/25/23 09:09 Temperature Pulse Rate 84 Respiratory Rate Blood Pressure 184/81 H Pulse Oximetry 94 95 Oxygen Delivery Method 08/25/23 09:21 08/25/23 09:30 08/25/23 09:31 Temperature 98.4 F Pulse Rate 83 83 81 Respiratory Rate 22 20 22 Blood Pressure 184/81 H Pulse Oximetry 97 92 94 Oxygen Delivery Method Room Air 08/25/23 09:31 08/25/23 10:00 08/25/23 10:00 Temperature Pulse Rate 80 Respiratory Rate 20 Blood Pressure 147/63 H 154/67 H Pulse Oximetry 91 Oxygen Delivery Method 08/25/23 10:30 08/25/23 10:30 08/25/23 11:00 Temperature Pulse Rate 77 Respiratory Rate 20 Blood Pressure 167/71 H 166/73 H Pulse Oximetry 95 Oxygen Delivery Method Room Air 08/25/23 11:00 08/25/23 11:30 08/25/23 11:30 Temperature Pulse Rate 78 72 Respiratory Rate 20 16 Blood Pressure 151/70 H Pulse Oximetry 96 97 Oxygen Delivery Method 08/25/23 12:00 08/25/23 12:01 08/25/23 12:01 Temperature Pulse Rate 78 73 Respiratory Rate 24 17 Blood Pressure 185/78 H Pulse Oximetry 96 96 Oxygen Delivery Method Medical Decision Making Medical Records Medical records reviewed: Yes I reviewed the patient's medical records. Lab Data Lab results reviewed: Yes I reviewed the patient's lab results. 08/25/23 09:25 08/25/23 09:25 Labs: Lab Results 08/25/23 08/25/23 Range/Units 09:25 11:25 WBC 7.1 (4.5-11.0) X10^3/uL RBC 4.14 (4.0-5.2) X10^6/uL Hgb 12.4 (12.0-16.0) g/dL Hct 36.1 (36-46) % MCV 87.2 (80-100) fL MCH 29.9 (26-34) PG MCHC 34.3 (30-36) % RDW 14.3 (11.6-14.8) % Plt Count 191 (150-400) X10^3/uL Neut % (Auto) 74.1 (50-75) % Lymph % (Auto) 14.0 L (25-40) % [place] % (Auto) 8.1 (3-14) % Eos % (Auto) 3.2 (2-4) % Baso % (Auto) 0.6 (0-2) % Neut # (Auto) 5300 (4749-6511) /uL Lymph # (Auto) 1000 L (7075-8126) /uL [place] # (Auto) 600 (0-900) /uL Eos # (Auto) 200 (0-450) /uL Baso # (Auto) 0 (0-100) /uL Sodium 137 (137-145) mmol/L Potassium 3.8 (3.4-5.1) mmol/L Chloride 106 (98-107) mmol/L Carbon Dioxide 26 (22-32) mmol/L BUN 15 (7-17) mg/dL Creatinine 0.74 (0.52-1.04) mg/dL Estimated GFR > 60 (>60) mL/min BUN/Creatinine Ratio 20.3 (6-22) Glucose 191 H (80-110) mg/dL Calcium 9.3 (8.4-10.2) mg/dL Total Bilirubin 0.7 (0.2-1.3) mg/dL AST 22 (14-36) IU/L ALT 22 (<35) IU/L Alkaline Phosphatase 60 (38-126) U/L Total Creatine Kinase 74 68 (30-135) U/L Troponin I < 0.012 < 0.012 (0.01-0.034) ng/mL NT-Pro-B Natriuret Pep 419 (<450) pg/mL Total Protein 6.6 (6.3-8.2) g/dL Albumin 3.9 (3.5-5.0) g/dL Globulin 2.7 (1.7-4.1) g/dL Albumin/Globulin Ratio 1.4 (1.0-2.8) Lipase 58 (23-300) U/L Imaging Data Chest x-ray: Radiologist's Impression: P a ROCEDURE: XR CHEST 1V INDICATIONS: SOB and CP TECHNIQUE: One view of the chest was acquired. COMPARISON: [facility], CR, XR CHEST 1V, 01/14/2022, 16:23. FINDINGS: Surgical changes and devices: Left shoulder arthroplasty. Lungs and pleura: Lungs are clear. No pleural effusions or pneumothorax. Mediastinum: Mediastinal contours appear normal. Heart size is normal. Bones and chest wall: No suspicious bony lesions. Overlying soft tissues appear unremarkable. IMPRESSION: No acute cardiopulmonary abnormality is seen. ECG Data Attestation: I personally reviewed and interpreted this ECG as follows: Interpretation: Sinus rhythm Ventricular rate 80 Normal axis Normal QRS No ST elevations Downward sloping ST segments the 2 3 and AVF MDM Narrative Medical decision making narrative: Patient has had 2- troponins. Nonischemic EKG. Has had persistent symptoms for greater than 12 hours. Has been hypertensive. Does have lower extremity swelling which is new compared to her exam here several days ago. No fevers. I did discuss the case with her primary doctor. Plan will be to start the patient on Lasix. She was given 40 mg here in the emergency department. She did diurese. States she was feeling much better and less short of breath. Plan will be to not make any changes to her blood pressure medications as we are going to start her on Lasix. Her primary doctor's office will call her at the beginning of next week for a follow-up. Patient was given return precautions. She expressed understanding and agreement. Discharge Plan Departure Patient Disposition: Home Clinical Impression: Hypertension, Edema, peripheral Instructions: DI for Peripheral Edema -- Bilateral Activity Restrictions/Additional Instructions: Recommend that you continue to take all of your medications as directed. We are going to had a new medication today called furosemide/Lasix. This is a medicine that is 1 time a day that I recommend that you take in the morning. It is going to make you urinate. It should help with the swelling and also lower your blood pressure. You should be receiving a call from your primary doctor's office at the beginning of next week for a follow-up. Return to the emergency department for worsening symptoms Prescriptions: New furosemide [Lasix] 40 mg tablet 40 mg PO DAILY Qty: 30 0RF No Action zinc acetate 25 mg (zinc) capsule 25 mg PO DAILY cholecalciferol (vitamin D3) 25 mcg (1,000 unit) capsule 25 mcg PO DAILY (DME) Dexcom G6 Sensor Device See Rx Instructions .ROUTE .MEDSUPPLY Qty: 3 12RF Rx Instructions: USE TO CONTINUOUSLY MONITOR BLOOD GLUCOSE LEVELS. CHANGE EVERY 10 DAYS. (DME) Dexcom G6 Physics And Astronomy Professor Misc See Rx Instructions .ROUTE .MEDSUPPLY Qty: 1 1RF Rx Instructions: USE TO CONTINUOUSLY MONITOR BLOOD GLUCOSE LEVELS. REPLACE EVERY 365 DAYS OR IF BROKEN (DME) Dexcom G6 Transmitter Device See Rx Instructions .ROUTE .MEDSUPPLY Qty: 1 3RF Rx Instructions: USE TO CONTINUOUSLY MONITOR BLOOD GLUCOSE LEVELS. REPLACE EVERY 90 DAYS. albuterol sulfate [Ventolin HFA] 90 mcg/actuation HFA aerosol inhaler See Rx Instructions .ROUTE .COMPLEX Qty: 18 6RF Dose Instruction: INHALE 2 PUFFS BY MOUTH EVERY 4 HOURS NEEDED FOR SHORTNESS OF BREATH Rx Instructions: INHALE 2 PUFFS BY MOUTH EVERY 4-6 HOURS NEEDED FOR SHORTNESS OF BREATH (DME) Blood Glucose Test Strip See Rx Instructions .ROUTE .MEDSUPPLY Qty: 100 4RF Rx Instructions: Use to test blood glucose once daily. (DME) lancets 33 gauge misc See Rx Instructions .ROUTE .MEDSUPPLY Qty: 100 4RF Rx Instructions: Use to test blood glucose once daily metformin 500 mg tablet 500 mg PO BIDWMEAL Qty: 180 1RF hydralazine 50 mg tablet 50 mg PO 3XD Qty: 270 2RF tramadol 50 mg tablet See Rx Instructions PO DAILY Qty: 60 0RF Rx Instructions: 1-2 tabs orally daily; estradiol 0.01 % (0.1 mg/gram) cream 1 g vaginal 2XW Qty: 42.5 3RF (DME) Disabled Parking Permit See Rx Instructions .ROUTE .MEDSUPPLY Qty: 1 0RF Rx Instructions: Valid for 5 years hydralazine 10 mg tablet 10 mg PO Q6H Qty: 60 0RF Rx Instructions: Can double to 20mg 3-4x/day for a few days then move to 50mg TID all if BP>140/90. carvedilol 12.5 mg tablet 18.75 mg PO Q12H Qty: 90 1RF Rx Instructions: administer with a meal/food if able. can titrate between 1-2 tabs twice a day based on HR, goal 60-90 quercetin PO DAILY multivitamin Tablet 1 tab PO DAILY ergocalciferol (vitamin D2) 10 mcg (400 unit) tablet 10 mcg PO DAILY vitamin K2 PO coenzyme Q10 PO Vinia PO (DME) blood-glucose meter Kit See Rx Instructions .ROUTE .MEDSUPPLY Qty: 1 0RF Rx Instructions: Use to test blood glucose DAILY activated charcoal 200 mg capsule 400 mg PO ONCE PRN (Reason: diarrhea) Qty: 10 0RF Rx Instructions: take up to three doses a day as needed, at least an hour away from medications valsartan [Diovan] 160 mg tablet 160 mg PO BID Qty: 180 3RF Rx Instructions: Take one tablet by mouth twice a day. Referrals: Cecilia Brown DO [Primary Care Provider] - Stand Alone Forms: Patient Portal/API
[2023-08-25 09:36] LABS: Add Manual Diff / Slide Review NO; Basophils Absolute Auto 0 /uL (0-100); Basophils Percent Auto 0.6 % (0-2); Eosinophils Absolute Auto 200 /uL (0-450); Eosinophils Percent Auto 3.2 % (2-4); Hematocrit 36.1 % (36-46); Hemoglobin 12.4 g/dL (12.0-16.0); Lymphocytes Absolute Auto 1000 /uL (1100-4500); Mean Corpuscular HGB Conc 34.3 % (30-36); Mean Corpuscular Hemoglobin 29.9 PG (26-34); Mean Corpuscular Volume 87.2 fL (80-100); Monocytes Absolute Auto 600 /uL (0-900); Monocytes Percent Auto 8.1 % (3-14); Neutrophils Absolute Auto 5300 /uL (1500-7000); Neutrophils Percent Auto 74.1 % (50-75); Platelet Count 191 X10^3/uL (150-400); Red Blood Cell Count 4.14 X10^6/uL (4.0-5.2); Red Cell Distribution Width 14.3 % (11.6-14.8); White Blood Cell Count 7.1 X10^3/uL (4.5-11.0)
[2023-08-25 09:46] LABS: Creatine Kinase 74 U/L (30-135)
[2023-08-25 09:48] LABS: Alanine Aminotransferase 22 IU/L (<35); Albumin 3.9 g/dL (3.5-5.0); Albumin Globulin Ratio 1.4 (1.0-2.8); Alkaline Phosphatase 60 U/L (38-126); Aspartate Aminotransferase 22 IU/L (14-36); BUN Creatinine Ratio 20.3 (6-22); Bilirubin Total 0.7 mg/dL (0.2-1.3); Blood Urea Nitrogen 15 mg/dL (7-17); Calcium 9.3 mg/dL (8.4-10.2); Carbon Dioxide 26 mmol/L (22-32); Chloride 106 mmol/L (98-107); Estimated Glomerular Filt Rate > 60 mL/min (>60); Globulin 2.7 g/dL (1.7-4.1); Glucose 191 mg/dL (80-110); HEMOLYSIS < 15 (0-50); Lipase 58 U/L (23-300); Potassium 3.8 mmol/L (3.4-5.1); Sodium 137 mmol/L (137-145); Total Protein 6.6 g/dL (6.3-8.2)
[2023-08-25 09:54] LABS: NT-proBNP (BNP-Adult 18+) 419 pg/mL (<450)
[2023-08-25 09:58] LABS: Troponin I < 0.012 ng/mL (0.01-0.034)
[2023-08-25] MEDS: FUROSEMIDE 40 MG/4 ML VIAL IV (11:41)
[2023-08-25 11:44] LABS: Creatine Kinase 68 U/L (30-135)
[2023-08-25 11:56] LABS: Troponin I < 0.012 ng/mL (0.01-0.034)
== END 2023-08-25 13:05 | disposition home or self-care (01) ==
PROVIDERS: Emergency Provider Emergency Medicine; Family Provider Family Medicine; PCP Family Medicine
DX: I10 Essential (primary) hypertension (principal); R60.0 Localized edema; R06.02 Shortness of breath; R07.9 Chest pain, unspecified
CPT/HCPCS: 36415; 71045; 80053; 82550; 83690; 83880; 84484; 85025; 93005; 96374; 99284; J1940

== ENCOUNTER 2023-09-21 09:00 | Outpatient (RCR) | payer MEDICARE, OTHER, SELFPAY ==
--- NOTE | 2023-05-17 17:01 | PT.OIE ---
Current Diagnoses Unilateral primary osteoarthritis, right hip (05/18/23) Difficulty in walking, not elsewhere classified (05/18/23) Weakness (05/18/23) Presence of right artificial hip joint (05/18/23) Past Medical History (Last Updated 03/14/23 @ 10:57 by Cecilia Brown DO) Asthma Cataract Chronic back pain CTS (carpal tunnel syndrome) JOHNSON (dyspnea on exertion) Essential hypertension (04/25/17) Greater trochanteric bursitis of left hip Ground-level fall Hypercalcemia Hyperlipidemia Hyperparathyroidism Hypertension Left hamstring muscle strain Measles Obesity Osteoarthritis Strain of adductor nando muscle Strain of right psoas muscle Supraspinatus tendon tear Tachycardia determined by examination of pulse Varicose veins of left lower extremity Past Surgical History (Last Reviewed 03/12/23 @ 03:13 by Hayder Bonner DO) Anesthesia H/O colonoscopy with polypectomy (~10/2020) History of knee replacement (2016) History of spinal fusion (06/2009) History of spinal fusion (2011) Status post parathyroidectomy (2015) Status post tonsillectomy and adenoidectomy (1947) Visit Care Team Role Provider Type Cecilia Brown DO Family Provider Physician Primary Care Provider Specialty: Medical Address: [address] [place] [address], [address] [place] [address], [id number] Email: [email or web address] Artemio Burgos MD Attending Provider Non-Staff Referring Provider Specialty: Orthopedic Surgery Address: [address] [place] [address], [id number] Email: Physical Therapy Initial Evaluation PT-OP-A Visit Information Start: 05/17/23 16:19 Freq: Status: Active Protocol: Document 05/18/23 08:39 SAK (Rec: 05/18/23 09:34 SAK [id number]) Out-Patient Physical Therapy Visit Information Visit Information Visit Type Initial Evaluation Visit Start Time 08:45 Visit Stop Time 09:40 Total Visit Minutes 55 Visit Number 1 Evaluation Information Evaluation Date 05/18/23 Precautions Precautions posterior GIUSEPPE precautions PT-OP-B Current Condition Start: 05/17/23 16:19 Freq: Status: Active Protocol: Document 05/18/23 08:39 SAK (Rec: 05/18/23 09:[address] [facility] [id number]) Current Condition History of Current Condition Onset Date 05/02/23 Current Complaints R hip pain, difficulty with gait, weakness. History of Current Condition R posterior approach GIUSEPPE May 02. Spent night in hospital due to nausea, vomiting. Has weaned off Oxycodone and Vistaril. Took Ibuprofen this am. Can get in and out of bed on her own. Wasn't sent home with HEP. Trying to work on her walking. Had 2 week pst-op with PA, ok to start PT . Prior Treatments and Tests 2 week follow-up, no issues. Treatment Goals Patient/Caregiver Goals resume independent gait without device Prior Functional Status Baseline Function- ADL's Independent Baseline Function- Mobility Modified Independent Baseline Function- Gait independent, used trekking poles or no device Current Functional Impairments (Reported) Functional Limitations- ADL's painful, more time Functional Limitations- Mobility/Gait antalgic, using walker and SPC , states has walked away from chair without any device a few times Functional Limitations- Work/School retired Personal Factors Other Personal Factors That May Effect PMH: kianna TKA, left TSA, spinal Therapy/Recovery fusion L3-S1 PT-OP-C Subjective Start: 05/17/23 16:19 Freq: Status: Active Protocol: Document 05/18/23 08:[address] [facility] (Rec: 05/22/23 08:[address] [facility] [id number]) Patient Questionnaires Lower Extremity Functional Scale LEFS Score 34 PT-OP-D Balance Start: 05/17/23 16:19 Freq: Status: Active Protocol: Document 05/18/23 08:[address] [facility] (Rec: 05/22/23 08:[address] [facility] [id number]) OP-PT Balance Assessment Sitting Balance Static Sitting Balance Ability Normal Dynamic Sitting Balance Ability Normal Standing Balance Static Standing Balance Ability Fair Dynamic Standing Balance Ability Fair Balance Tests Single Limb Standing Single Limb- Right unable Single Limb- Left 2 Tripathi Fall Scale Copyright Permission PT-OP-G Mobility & Gait Start: 05/17/23 16:19 Freq: Status: Active Protocol: Document 05/18/23 08:[address] [facility] (Rec: 05/22/23 08:[address] [facility] [id number]) OP Mobility Evaluation Transfers Sit to Stand indep with dec wb R LE OP Gait Assessment Gait Gait Assistance Required: Independent Distance (Feet) 60 Able to Maintain Weight Bearing Status Yes During Gait Assistive Devices Assistive Device Front Wheeled Walker Orthotic/Prosthetic Devices or Brace: No Gait Deviations General Gait Pattern Antalgic Factors Limiting Gait Function Factors Limiting Gait Function Decreased Activity Tolerance, Decreased Strength,Pain Stair Climbing Evaluation Evaluation Level of Assist On Stairs Standby Assistance Devices Stair Climbing Assistive Devices Left Railing,Right Railing Technique/Endurance Stair Climbing Direction Ascend and Descend Stair Climbing Technique Step to Step PT-OP-J Posture/Palpation/Skin Start: 05/17/23 16:19 Freq: Status: Active Protocol: Document 05/18/23 08:[address] [facility] (Rec: 05/22/23 08:[address] [facility] [id number]) Skin Assessment Incisional Assessment Incision Appearance/Comments GIUSEPPE incision haling well, no signs or symptoms of infection . PT-OP-K Range of Motion Start: 05/17/23 16:19 Freq: Status: Active Protocol: Document 05/18/23 08:[address] [facility] (Rec: 05/22/23 08:[address] [facility] [id number]) Hip Goniometric Range of Motion Hip Right Comments not assessed due to recent surgery, functional motion available for transfers, bed mobility, and gait Left Hip ROM WFL Yes PT-OP-M Strength Start: 05/17/23 16:19 Freq: Status: Active Protocol: Document 05/18/23 08:[address] [facility] (Rec: 05/22/23 08:[address] [facility] [id number]) Hip Strength Hip Manual Muscle Testing Right Comments not assessed due to recent surgery Knee Strength Knee Manual Muscle Testing Right Comments no MMT due to recent GIUSEPPE right Left Flexion (S2) 5 Normal Extension (L3) 5 Normal Ankle/Foot Strength Ankle and Foot Manual Muscle Testing kianna Dorsiflexion (L4) 5 Normal Plantarflexion (S1) 5 Normal PT-OP-Q Treatments Start: 05/17/23 16:19 Freq: Status: Active Protocol: Document 05/18/23 08:[address] [facility] (Rec: 05/18/23 09:[address] [facility] [id number]) Therapeutic Exercises Supine Exercises bridge Equipment Used foam roller under knees due to HS cramping. Reps/Minutes 10x Comments small hip abd Reps/Minutes 10x heel slide Equipment Used pillow case on foot Reps/Minutes 10 quad sets Reps/Minutes 10x glut sets Reps/Minutes 10x ankle pumps Reps/Minutes 10x Self-Care/Home Management Treatment Education Patient Education Home Exercise Program,Joint Protection,Pain Management, Safety Other Education GIUSEPPE precautions Activities Self-Care/Home Management Activities regular icing of hip, no progression of gait device unless able to ambulate without limp PT-OP-R Modalities Start: 05/17/23 16:19 Freq: Status: Active Protocol: Document 05/18/23 08:[address] [facility] (Rec: 05/22/23 08:[address] [facility] [id number]) Hot Pack/Cold Pack Treatment Cold Pack Location right hip Patient Position Hooklying Treatment Duration (minutes) 10 Patient Tolerance Good PT-OP-T Assessment and Plan Start: 05/17/23 16:19 Freq: Status: Active Protocol: Document 05/18/23 08:[address] [facility] (Rec: 05/18/23 09:[address] [facility] [id number]) Physical Therapy Assessment Rehab Potential Rehabilitation Potential Good Evaluation Complexity Number of Personal Factors/Comorbidities 1-2 Number of Body Systems Impaired 3 Clinical Presentation at Evaluation Evolving Impairments Impairments Activity Tolerance,Gait,Soft Tissue Mobility Goals Two Impairment pain right hip Impairment pain as high as 7/10 Short Term Goal (STG) Decrease pain to no greater than 4/10 with all usual activities STG Duration 06/18/23 Skilled Nursing Goal (LTG) Decrease pain to no greater than 2/10 with all usual activities LTG Duration 07/18/23 Three Impairment activity tolerance Impairment LEFS 26% Short Term Goal (STG) Improve LEFS score to at least 40% as measure of improved activity tolerance and function in the home and community STG Duration 06/18/23 Skilled Nursing Goal (LTG) Improve LEFS score to at least 60'5 as measure of improved activity tolerance and function in the home and community LTG Duration 07/18/23 One Impairment gait dysfunction Impairment uses 4WW for gait Short Term Goal (STG) Patient able to ambulate on level surfaces and stairs using a SPC without limp or increase in pain STG Duration 06/18/23 Skilled Nursing Goal (LTG) able to ambulate without assistive device without limp on level and alternating feet on stairs. LTG Duration 07/18/23 Assessment Summary Assessment Patient presents to PT 2 weeks post-op right posterior approach GIUSEPPE with typical post-op pain and limitations in mobility. Her incision was evaluated and shows no signs or symptoms of infection and appears to be healing well. She is currently ambulating with 4WW. She was instructed in GIUSEPPE exercises today, reviewed GIUSEPPE precautions with functional tasks for safety, and was issued a handout for HEP. Encouraged to ice after exercises. Patient demonstrated good understanding. Discussed POC and patient was in agreement. Physical Therapy Plan Frequency and Duration Frequency of Treatment 2x/Week Duration of treatment (weeks) 12 Plan of Care Start Date 05/18/23 Plan of Care End Date 07/18/23 Therapeutic Interventions Therapeutic Interventions Balance Training,Gait Training ,Home Exercise Program,Manual Therapy,Patient/Caregiver Education,Self-Care/Home Management,Soft Tissue Mobilization,Taping, Therapeutic Activities, Therapeutic Exercises Modalities Cold Pack/Ice Massage,Electric Stimulation,Hot Packs Next Visit Focus/Plan Next Note Type Treatment Note Next Visit Plan Start with recumbant elliptical, continue progression of GIUSEPPE ex. Gait training with emphasis on symmetrical gait with no limp, use of cane if tolerated.
--- NOTE | 2023-05-17 17:02 | PT.OPPOC ---
Physical, Occupational & Speech Therapy At [facility] Current Diagnoses Unilateral primary osteoarthritis, right hip (05/18/23) Difficulty in walking, not elsewhere classified (05/18/23) Weakness (05/18/23) Presence of right artificial hip joint (05/18/23) Visit Care Team Role Provider Type Cecilia Brown DO Family Provider Physician Primary Care Provider Specialty: Medical Address: [address] [place] [address], [address], [place], [address] Email: [email or web address] Artemio Burgos MD Attending Provider Non-Staff Referring Provider Specialty: Orthopedic Surgery Address: [address] [place] [address], [place], [address] Email: Plan Of Care PT-OP-T Assessment and Plan Start: 05/17/23 16:19 Freq: Status: Active Protocol: Document 05/18/23 08:39 SAK (Rec: 05/18/23 09:34 SAK [id number]) Physical Therapy Assessment Rehab Potential Rehabilitation Potential Good Evaluation Complexity Number of Personal Factors/Comorbidities 1-2 Number of Body Systems Impaired 3 Clinical Presentation at Evaluation Evolving Impairments Impairments Activity Tolerance,Gait,Soft Tissue Mobility Goals Two Impairment pain right hip Impairment pain as high as 7/10 Short Term Goal (STG) Decrease pain to no greater than 4/10 with all usual activities STG Duration 06/18/23 Shelter Goal (LTG) Decrease pain to no greater than 2/10 with all usual activities LTG Duration 07/18/23 Three Impairment activity tolerance Impairment LEFS 26% Short Term Goal (STG) Improve LEFS score to at least 40% as measure of improved activity tolerance and function in the home and community STG Duration 06/18/23 Steam Power Plant Operator Goal (LTG) Improve LEFS score to at least 60'5 as measure of improved activity tolerance and function in the home and community LTG Duration 07/18/23 One Impairment gait dysfunction Impairment uses 4WW for gait Short Term Goal (STG) Patient able to ambulate on level surfaces and stairs using a SPC without limp or increase in pain STG Duration 06/18/23 Steam Power Plant Operator Goal (LTG) able to ambulate without assistive device without limp on level and alternating feet on stairs. LTG Duration 07/18/23 Assessment Summary Assessment Patient presents to PT 2 weeks post-op right posterior approach GIUSEPPE with typical post-op pain and limitations in mobility. Her incision was evaluated and shows no signs or symptoms of infection and appears to be healing well. She is currently ambulating with 4WW. She was instructed in GIUSEPPE exercises today, reviewed GIUSEPPE precautions with functional tasks for safety, and was issued a handout for HEP. Encouraged to ice after exercises. Patient demonstrated good understanding. Discussed POC and patient was in agreement. Physical Therapy Plan Frequency and Duration Frequency of Treatment 2x/Week Duration of treatment (weeks) 12 Plan of Care Start Date 05/18/23 Plan of Care End Date 07/18/23 Therapeutic Interventions Therapeutic Interventions Balance Training,Gait Training ,Home Exercise Program,Manual Therapy,Patient/Caregiver Education,Self-Care/Home Management,Soft Tissue Mobilization,Taping, Therapeutic Activities, Therapeutic Exercises Modalities Cold Pack/Ice Massage,Electric Stimulation,Hot Packs Next Visit Focus/Plan Next Note Type Treatment Note Next Visit Plan Start with recumbant elliptical, continue progression of GIUSEPPE ex. Gait training with emphasis on symmetrical gait with no limp, use of cane if tolerated. Plan of Care Dates Plan of Care Start Date 05/18/23 Plan of Care End Date 07/18/23 Electronically Signed by: Martina Feng, PT 05/22/23 2673 If you are in agreement with this Plan of Care, please return a signed and dated copy. I have reviewed this Plan of Care and certify that the skilled therapy services above are required to meet the patient?s needs. Physician Signature Date Printed Name and Credentials Clinical Instructor Signature Printed Name and Credentials
--- NOTE | 2023-05-23 16:53 | PT.OTN ---
Current Diagnoses Unilateral primary osteoarthritis, right hip (05/23/23) Difficulty in walking, not elsewhere classified (05/23/23) Weakness (05/23/23) Presence of right artificial hip joint (05/23/23) Physical Therapy Treatment Note PT-OP-A Visit Information Start: 05/17/23 16:19 Freq: Status: Active Protocol: Document 05/23/23 08:53 SAK (Rec: 05/23/23 09:31 SAK [id number]) Out-Patient Physical Therapy Visit Information Visit Information Visit Type Treatment Note Visit Start Time 08:45 Visit Stop Time 09:42 Total Visit Minutes 57 Visit Number 2 Evaluation Information Evaluation Date 05/18/23 Precautions Precautions posterior GIUSEPPE precautions PT-OP-B Current Condition Start: 05/17/23 16:19 Freq: Status: Active Protocol: Document 05/23/23 08:53 SAK (Rec: 05/23/23 09:31 SAK [id number]) Current Condition History of Current Condition Onset Date 05/02/23 Current Complaints R hip pain, difficulty with gait, weakness. History of Current Condition R posterior approach GIUSEPPE May 02. Spent night in hospital due to nausea, vomiting. Has weaned off Oxycodone and Vistaril. Took Ibuprofen this am. Can get in and out of bed on her own. Wasn't sent home with HEP. Trying to work on her walking. Had 2 week pst-op with andre ALEX to start PT . Prior Treatments and Tests 2 week follow-up, no issues. Treatment Goals Patient/Caregiver Goals resume independent gait without device Personal Factors Other Personal Factors That May Effect PMH: kianna TKA, left TSA, spinal Therapy/Recovery fusion L3-S1 PT-OP-C Subjective Start: 05/17/23 16:19 Freq: Status: Active Protocol: Document 05/18/23 08:39 SAK (Rec: 05/22/23 08:43 SAK [id number]) Patient Questionnaires Lower Extremity Functional Scale LEFS Score 34 PT-OP-D Balance Start: 05/17/23 16:19 Freq: Status: Active Protocol: Document 05/18/23 08:39 SAK (Rec: 05/22/23 08:43 SAK [id number]) OP-PT Balance Assessment Sitting Balance Static Sitting Balance Ability Normal Dynamic Sitting Balance Ability Normal Standing Balance Static Standing Balance Ability Fair Dynamic Standing Balance Ability Fair Balance Tests Single Limb Standing Single Limb- Right unable Single Limb- Left 2 Tripathi Fall Scale Copyright Permission PT-OP-G Mobility & Gait Start: 05/17/23 16:19 Freq: Status: Active Protocol: Document 05/18/23 08:39 [facility] (Rec: 05/22/23 08:43 [facility] [id number]) OP Mobility Evaluation Transfers Sit to Stand indep with dec wb R LE OP Gait Assessment Gait Gait Assistance Required: Independent Distance (Feet) 60 Able to Maintain Weight Bearing Status Yes During Gait Assistive Devices Assistive Device Front Wheeled Walker Orthotic/Prosthetic Devices or Brace: No Gait Deviations General Gait Pattern Antalgic Factors Limiting Gait Function Factors Limiting Gait Function Decreased Activity Tolerance, Decreased Strength,Pain Stair Climbing Evaluation Evaluation Level of Assist On Stairs Standby Assistance Devices Stair Climbing Assistive Devices Left Railing,Right Railing Technique/Endurance Stair Climbing Direction Ascend and Descend Stair Climbing Technique Step to Step PT-OP-J Posture/Palpation/Skin Start: 05/17/23 16:19 Freq: Status: Active Protocol: Document 05/18/23 08:39 [facility] (Rec: 05/22/23 08:43 [facility] [id number]) Skin Assessment Incisional Assessment Incision Appearance/Comments GIUSEPPE incision haling well, no signs or symptoms of infection . PT-OP-K Range of Motion Start: 05/17/23 16:19 Freq: Status: Active Protocol: Document 05/18/23 08:39 [facility] (Rec: 05/22/23 08:43 [facility] [id number]) Hip Goniometric Range of Motion Hip Right Comments not assessed due to recent surgery, functional motion available for transfers, bed mobility, and gait Left Hip ROM WFL Yes PT-OP-M Strength Start: 05/17/23 16:19 Freq: Status: Active Protocol: Document 05/18/23 08:39 [facility] (Rec: 05/22/23 08:43 [facility] [id number]) Hip Strength Hip Manual Muscle Testing Right Comments not assessed due to recent surgery Knee Strength Knee Manual Muscle Testing Right Comments no MMT due to recent GIUSEPPE right Left Flexion (S2) 5 Normal Extension (L3) 5 Normal Ankle/Foot Strength Ankle and Foot Manual Muscle Testing kianna Dorsiflexion (L4) 5 Normal Plantarflexion (S1) 5 Normal PT-OP-Q Treatments Start: 05/17/23 16:19 Freq: Status: Active Protocol: Document 05/23/23 08:53 [facility] (Rec: 05/23/23 09:31 [facility] [id number]) Cardio Equipment Recumbent Stepper (Sci-Fit) Duration (Minutes) 6 Resistance 1 Seat Position 10 Therapeutic Exercises Supine Exercises bridge Equipment Used foam roller under knees due to HS cramping. Reps/Minutes 10x Comments small Standing Exercises minisquats Equipment Used wall bar Reps/Minutes 5x hip ab Standing Exercise Name sidestepping Equipment Used wall bar Reps/Minutes 10 ft each direction march Equipment Used wall bar Reps/Minutes 10x heel/toe raise Equipment Used wall bar Reps/Minutes 10x Gait Training Gait Activity cane Device Used SPC Level of Assistance SBA, cues Surface firm Distance/Duration 125 Treatment Focus gait and muscle activation sequencing, equal step-length, gluteal activatio 4WW Device Used FWW Level of Assistance SBA, cues Surface firm Distance/Duration 75 ft Treatment Focus technique, posture, relaxed knees Manual Therapy Treatment Soft Tissue Mobilization right hip Body Location lateral Mobilization Type Manual Lymphatic Drainage, Myofascial Release,Strumming Intensity/Depth gentle Body Position left sidelying Self-Care/Home Management Treatment Education Patient Education Home Exercise Program,Joint Protection,Pain Management, Safety Other Education GIUSPEPE precautions PT-OP-R Modalities Start: 05/17/23 16:19 Freq: Status: Active Protocol: Document 05/23/23 08:53 [facility] (Rec: 05/23/23 09:31 [facility] [id number]) Hot Pack/Cold Pack Treatment Cold Pack Location right hip Patient Position Hooklying Treatment Duration (minutes) 10 Patient Tolerance Good PT-OP-T Assessment and Plan Start: 05/17/23 16:19 Freq: Status: Active Protocol: Document 05/23/23 08:53 [facility] (Rec: 05/23/23 09:31 [facility] [id number]) Physical Therapy Assessment Impairments Impairments Activity Tolerance,Gait,Soft Tissue Mobility Goals Two Impairment pain right hip Impairment pain as high as 7/10 Short Term Goal (STG) Decrease pain to no greater than 4/10 with all usual activities STG Duration 06/18/23 Senior Clinician Goal (LTG) Decrease pain to no greater than 2/10 with all usual activities LTG Duration 07/18/23 Three Impairment activity tolerance Impairment LEFS 26% Short Term Goal (STG) Improve LEFS score to at least 40% as measure of improved activity tolerance and function in the home and community STG Duration 11/26/23 [facility] Goal (LTG) Improve LEFS score to at least 60'5 as measure of improved activity tolerance and function in the home and community LTG Duration 07/18/23 One Impairment gait dysfunction Impairment uses 4WW for gait Short Term Goal (STG) Patient able to ambulate on level surfaces and stairs using a SPC without limp or increase in pain STG Duration 06/18/23 [facility] Goal (LTG) able to ambulate without assistive device without limp on level and alternating feet on stairs. LTG Duration 07/18/23 Assessment Summary Assessment Improved gait after education. Progressed to standing GIUSEPPE ex with good tolerance. Swelling around incision improved after soft tissue mobilization. Physical Therapy Plan Frequency and Duration Frequency of Treatment 2x/Week Duration of treatment (weeks) 12 Plan of Care Start Date 05/18/23 Plan of Care End Date 07/18/23 Therapeutic Interventions Therapeutic Interventions Balance Training,Gait Training ,Home Exercise Program,Manual Therapy,Patient/Caregiver Education,Self-Care/Home Management,Soft Tissue Mobilization,Taping, Therapeutic Activities, Therapeutic Exercises Modalities Cold Pack/Ice Massage,Electric Stimulation,Hot Packs Next Visit Focus/Plan Next Note Type Treatment Note Next Visit Plan Continue GIUSEPPE rehab, emphasis on symmetry with gait. Gait training on stairs. Cluteal strengthening.
--- NOTE | 2023-05-25 12:01 | PT.OTN ---
Current Diagnoses Unilateral primary osteoarthritis, right hip (05/25/23) Difficulty in walking, not elsewhere classified (05/25/23) Weakness (05/25/23) Presence of right artificial hip joint (05/25/23) Physical Therapy Treatment Note PT-OP-A Visit Information Start: 05/17/23 16:19 Freq: Status: Active Protocol: Document 05/25/23 09:06 SAK (Rec: 05/25/23 09:46 [facility] [id number]) Out-Patient Physical Therapy Visit Information Visit Information Visit Type Treatment Note Visit Note Doing ok with exercises except bridge; bed too soft. Visit Start Time 09:00 Visit Stop Time 09:57 Total Visit Minutes 57 Visit Number 3 Evaluation Information Evaluation Date 05/18/23 Precautions Precautions posterior GIUSEPPE precautions PT-OP-B Current Condition Start: 05/17/23 16:19 Freq: Status: Active Protocol: Document 05/25/23 09:06 SAK (Rec: 05/25/23 09:46 SAK [id number]) Current Condition History of Current Condition Onset Date 05/02/23 Current Complaints R hip pain, difficulty with gait, weakness. History of Current Condition R posterior approach GIUSEPPE Apr 10. Spent night in hospital due to nausea, vomiting. Has weaned off Oxycodone and Vistaril. Took Ibuprofen this am. Can get in and out of bed on her own. Wasn't sent home with HEP. Trying to work on her walking. Had 2 week pst-op with andre ALEX to start PT . Prior Treatments and Tests 2 week follow-up, no issues. Treatment Goals Patient/Caregiver Goals resume independent gait without device Personal Factors Other Personal Factors That May Effect PMH: kianna TKA, left TSA, spinal Therapy/Recovery fusion L3-S1 PT-OP-C Subjective Start: 05/17/23 16:19 Freq: Status: Active Protocol: Document 05/18/23 08:39 SAK (Rec: 05/22/23 08:43 SAK [id number]) Patient Questionnaires Lower Extremity Functional Scale LEFS Score 34 PT-OP-D Balance Start: 05/17/23 16:19 Freq: Status: Active Protocol: Document 05/18/23 08:39 SAK (Rec: 05/22/23 08:43 SAK [id number]) OP-PT Balance Assessment Sitting Balance Static Sitting Balance Ability Normal Dynamic Sitting Balance Ability Normal Standing Balance Static Standing Balance Ability Fair Dynamic Standing Balance Ability Fair Balance Tests Single Limb Standing Single Limb- Right unable Single Limb- Left 2 Tripathi Fall Scale Copyright Permission PT-OP-G Mobility & Gait Start: 05/17/23 16:19 Freq: Status: Active Protocol: Document 05/18/23 08:39 [facility] (Rec: 05/22/23 08:43 [facility] [id number]) OP Mobility Evaluation Transfers Sit to Stand indep with dec wb R LE OP Gait Assessment Gait Gait Assistance Required: Independent Distance (Feet) 60 Able to Maintain Weight Bearing Status Yes During Gait Assistive Devices Assistive Device Front Wheeled Walker Orthotic/Prosthetic Devices or Brace: No Gait Deviations General Gait Pattern Antalgic Factors Limiting Gait Function Factors Limiting Gait Function Decreased Activity Tolerance, Decreased Strength,Pain Stair Climbing Evaluation Evaluation Level of Assist On Stairs Standby Assistance Devices Stair Climbing Assistive Devices Left Railing,Right Railing Technique/Endurance Stair Climbing Direction Ascend and Descend Stair Climbing Technique Step to Step PT-OP-J Posture/Palpation/Skin Start: 05/17/23 16:19 Freq: Status: Active Protocol: Document 05/18/23 08:39 [facility] (Rec: 05/22/23 08:43 [facility] [id number]) Skin Assessment Incisional Assessment Incision Appearance/Comments GIUSEPPE incision haling well, no signs or symptoms of infection . PT-OP-K Range of Motion Start: 05/17/23 16:19 Freq: Status: Active Protocol: Document 05/18/23 08:39 [facility] (Rec: 05/22/23 08:43 [facility] [id number]) Hip Goniometric Range of Motion Hip Right Comments not assessed due to recent surgery, functional motion available for transfers, bed mobility, and gait Left Hip ROM WFL Yes PT-OP-M Strength Start: 05/17/23 16:19 Freq: Status: Active Protocol: Document 05/18/23 08:39 [facility] (Rec: 05/22/23 08:43 [facility] [id number]) Hip Strength Hip Manual Muscle Testing Right Comments not assessed due to recent surgery Knee Strength Knee Manual Muscle Testing Right Comments no MMT due to recent GIUSEPPE right Left Flexion (S2) 5 Normal Extension (L3) 5 Normal Ankle/Foot Strength Ankle and Foot Manual Muscle Testing kianna Dorsiflexion (L4) 5 Normal Plantarflexion (S1) 5 Normal PT-OP-Q Treatments Start: 05/17/23 16:19 Freq: Status: Active Protocol: Document 05/25/23 09:06 [facility] (Rec: 05/25/23 09:46 [facility] [id number]) Cardio Equipment Recumbent Stepper (Sci-Fit) Duration (Minutes) 7 Resistance 1 Seat Position 10 Gym Equipment Shuttle Recovery Unilateral Squats Resistance 37 left 25 right Reps/Time 10x Bilateral Squats Resistance 50 Reps/Time 10x Therapeutic Exercises Standing Exercises minisquats Equipment Used wall bar Reps/Minutes 5x hip ab Standing Exercise Name sidestepping Equipment Used wall bar Reps/Minutes 10 ft each direction march Equipment Used wall bar Reps/Minutes 10x heel/toe raise Equipment Used wall bar Reps/Minutes 10x Gait Training Gait Activity stairs Level of Assistance SBA, kianna rails Surface 6 stairs Distance/Duration 4 stairs x 1 Treatment Focus safety no device Surface firm Distance/Duration 10 ft 4 Comments mirror for visual feedback, VC for inc wt shift and stance time right, gluteal activation cane Device Used SPC Level of Assistance SBA, cues Surface firm Distance/Duration 125 Treatment Focus gait and muscle activation sequencing, equal step-length, gluteal activatio Manual Therapy Treatment Soft Tissue Mobilization right hip Body Location lateral Mobilization Type Manual Lymphatic Drainage, Myofascial Release,Strumming Intensity/Depth gentle Body Position left sidelying Self-Care/Home Management Treatment Education Patient Education Home Exercise Program,Joint Protection,Pain Management, Safety PT-OP-R Modalities Start: 05/17/23 16:19 Freq: Status: Active Protocol: Document 05/23/23 08:53 [facility] (Rec: 05/23/23 09:31 [facility] [id number]) Hot Pack/Cold Pack Treatment Cold Pack Location right hip Patient Position Hooklying Treatment Duration (minutes) 10 Patient Tolerance Good PT-OP-T Assessment and Plan Start: 05/17/23 16:19 Freq: Status: Active Protocol: Document 05/25/23 09:06 [facility] (Rec: 05/25/23 09:46 [facility] [id number]) Physical Therapy Assessment Impairments Impairments Activity Tolerance,Gait,Soft Tissue Mobility Goals Two Impairment pain right hip Impairment pain as high as 7/10 Short Term Goal (STG) Decrease pain to no greater than 4/10 with all usual activities STG Duration 06/18/23 Nursing Home Goal (LTG) Decrease pain to no greater than 2/10 with all usual activities LTG Duration 07/18/23 Three Impairment activity tolerance Impairment LEFS 26% Short Term Goal (STG) Improve LEFS score to at least 40% as measure of improved activity tolerance and function in the home and community STG Duration 06/18/23 Night Nurse Goal (LTG) Improve LEFS score to at least 60'5 as measure of improved activity tolerance and function in the home and community LTG Duration 07/18/23 One Impairment gait dysfunction Impairment uses 4WW for gait Short Term Goal (STG) Patient able to ambulate on level surfaces and stairs using a SPC without limp or increase in pain STG Duration 06/18/23 Night Nurse Goal (LTG) able to ambulate without assistive device without limp on level and alternating feet on stairs. LTG Duration 07/18/23 Assessment Summary Assessment Improved weight shift right and more equal step length. Safe with cane and without device; encouraged patient to gradually wean off device, if pain inc go to more supportive device. Good HEP compliance. Physical Therapy Plan Frequency and Duration Frequency of Treatment 2x/Week Duration of treatment (weeks) 12 Plan of Care Start Date 05/18/23 Plan of Care End Date 07/18/23 Therapeutic Interventions Therapeutic Interventions Balance Training,Gait Training ,Home Exercise Program,Manual Therapy,Patient/Caregiver Education,Self-Care/Home Management,Soft Tissue Mobilization,Taping, Therapeutic Activities, Therapeutic Exercises Modalities Cold Pack/Ice Massage,Electric Stimulation,Hot Packs Next Visit Focus/Plan Next Note Type Treatment Note Next Visit Plan Continue GIUSEPPE rehab, emphasis on symmetry with gait. Gait training on stairs. Cluteal strengthening.
--- NOTE | 2023-05-31 10:27 | PT.OTN ---
Current Diagnoses Unilateral primary osteoarthritis, right hip (05/31/23) Difficulty in walking, not elsewhere classified (05/31/23) Weakness (05/31/23) Presence of right artificial hip joint (05/31/23) Physical Therapy Treatment Note PT-OP-A Visit Information Start: 05/17/23 16:19 Freq: Status: Active Protocol: Document 05/31/23 09:32 SAK (Rec: 05/31/23 10:27 [facility] [id number]) Out-Patient Physical Therapy Visit Information Visit Information Visit Type Treatment Note Visit Note BP 144/71, 149/78 at rest, 161 /79 after stairs Visit Start Time 09:30 Visit Stop Time 10:25 Total Visit Minutes 55 Visit Number 4 Evaluation Information Evaluation Date 05/18/23 Precautions Precautions posterior GIUSEPPE precautions PT-OP-B Current Condition Start: 05/17/23 16:19 Freq: Status: Active Protocol: Document 05/31/23 09:32 SAK (Rec: 05/31/23 10:27 [facility] [id number]) Current Condition History of Current Condition Onset Date 05/02/23 Current Complaints R hip pain, difficulty with gait, weakness. History of Current Condition R posterior approach GIUSEPPE May 02. Spent night in hospital due to nausea, vomiting. Has weaned off Oxycodone and Vistaril. Took Ibuprofen this am. Can get in and out of bed on her own. Wasn't sent home with HEP. Trying to work on her walking. Had 2 week pst-op with PA, ok to start PT . Prior Treatments and Tests 2 week follow-up, no issues. Treatment Goals Patient/Caregiver Goals resume independent gait without device Personal Factors Other Personal Factors That May Effect PMH: kianna TKA, left TSA, spinal Therapy/Recovery fusion L3-S1 PT-OP-C Subjective Start: 05/17/23 16:19 Freq: Status: Active Protocol: Document 05/31/23 09:32 SAK (Rec: 05/31/23 10:27 [facility] [id number]) OP-PT Subjective Patient Comments Patient Comments Had cyst on low back drained Monday, on Sulfa-based antibiotic. Had blood work this am. Was taken off Diavan (BP med) due to possible interaction with antibiotic. No laying on back per doctor PT-OP-D Balance Start: 05/17/23 16:19 Freq: Status: Active Protocol: Document 05/18/23 08:39 [facility] (Rec: 05/22/23 08:43 [facility] [id number]) OP-PT Balance Assessment Sitting Balance Static Sitting Balance Ability Normal Dynamic Sitting Balance Ability Normal Standing Balance Static Standing Balance Ability Fair Dynamic Standing Balance Ability Fair Balance Tests Single Limb Standing Single Limb- Right unable Single Limb- Left 2 Tripathi Fall Scale Copyright Permission PT-OP-G Mobility & Gait Start: 05/17/23 16:19 Freq: Status: Active Protocol: Document 05/18/23 08:39 [facility] (Rec: 05/22/23 08:43 [facility] [id number]) OP Mobility Evaluation Transfers Sit to Stand indep with dec wb R LE OP Gait Assessment Gait Gait Assistance Required: Independent Distance (Feet) 60 Able to Maintain Weight Bearing Status Yes During Gait Assistive Devices Assistive Device Front Wheeled Walker Orthotic/Prosthetic Devices or Brace: No Gait Deviations General Gait Pattern Antalgic Factors Limiting Gait Function Factors Limiting Gait Function Decreased Activity Tolerance, Decreased Strength,Pain Stair Climbing Evaluation Evaluation Level of Assist On Stairs Standby Assistance Devices Stair Climbing Assistive Devices Left Railing,Right Railing Technique/Endurance Stair Climbing Direction Ascend and Descend Stair Climbing Technique Step to Step PT-OP-J Posture/Palpation/Skin Start: 05/17/23 16:19 Freq: Status: Active Protocol: Document 05/18/23 08:39 [facility] (Rec: 05/22/23 08:43 [facility] [id number]) Skin Assessment Incisional Assessment Incision Appearance/Comments GIUSEPPE incision haling well, no signs or symptoms of infection . PT-OP-K Range of Motion Start: 05/17/23 16:19 Freq: Status: Active Protocol: Document 05/18/23 08:39 [facility] (Rec: 05/22/23 08:43 [facility] [id number]) Hip Goniometric Range of Motion Hip Right Comments not assessed due to recent surgery, functional motion available for transfers, bed mobility, and gait Left Hip ROM WFL Yes PT-OP-M Strength Start: 05/17/23 16:19 Freq: Status: Active Protocol: Document 05/18/23 08:39 [facility] (Rec: 05/22/23 08:43 [facility] [id number]) Hip Strength Hip Manual Muscle Testing Right Comments not assessed due to recent surgery Knee Strength Knee Manual Muscle Testing Right Comments no MMT due to recent GIUSEPPE right Left Flexion (S2) 5 Normal Extension (L3) 5 Normal Ankle/Foot Strength Ankle and Foot Manual Muscle Testing kianna Dorsiflexion (L4) 5 Normal Plantarflexion (S1) 5 Normal PT-OP-Q Treatments Start: 05/17/23 16:19 Freq: Status: Active Protocol: Document 05/31/23 09:32 [facility] (Rec: 05/31/23 10:27 [facility] [id number]) Therapeutic Exercises Sitting Exercises LAQ Reps/Minutes 10x5 glut sets Reps/Minutes 10x5 Standing Exercises minisquats Equipment Used wall bar Reps/Minutes 5x hip ab Standing Exercise Name sidestepping Equipment Used wall bar Reps/Minutes 10 ft each direction march Equipment Used wall bar Reps/Minutes 10x heel/toe raise Equipment Used wall bar Reps/Minutes 10x Gait Training Gait Activity stairs Level of Assistance SBA, kianna rails Surface 4 stairs Distance/Duration 6 stairs x 2 Treatment Focus gluteal activation no device Surface firm Distance/Duration 10 ft 4 Comments mirror for visual feedback, VC for inc wt shift and stance time right, gluteal activation cane Device Used SPC Level of Assistance SBA, cues Surface firm Distance/Duration 50'x2 Treatment Focus gait and muscle activation sequencing, equal step-length, gluteal activatio Manual Therapy Treatment Soft Tissue Mobilization right hip Body Location lateral Mobilization Type Manual Lymphatic Drainage, Myofascial Release,Strumming Intensity/Depth gentle Body Position left sidelying Self-Care/Home Management Treatment Education Patient Education Home Exercise Program,Joint Protection,Pain Management, Safety PT-OP-R Modalities Start: 05/17/23 16:19 Freq: Status: Active Protocol: Document 05/31/23 09:32 [facility] (Rec: 05/31/23 10:27 [facility] [id number]) Hot Pack/Cold Pack Treatment Cold Pack Location right hip Patient Position Hooklying Treatment Duration (minutes) 10 Patient Tolerance Good PT-OP-T Assessment and Plan Start: 05/17/23 16:19 Freq: Status: Active Protocol: Document 05/31/23 09:32 [facility] (Rec: 05/31/23 10:27 [facility] [id number]) Physical Therapy Assessment Goals Two Impairment pain right hip Impairment pain as high as 7/10 Short Term Goal (STG) Decrease pain to no greater than 4/10 with all usual activities STG Duration 06/18/23 [facility]itentiary Goal (LTG) Decrease pain to no greater than 2/10 with all usual activities LTG Duration 07/18/23 Three Impairment activity tolerance Impairment LEFS 26% Short Term Goal (STG) Improve LEFS score to at least 40% as measure of improved activity tolerance and function in the home and community STG Duration 06/18/23 Career Development Coordinator/Teacher Goal (LTG) Improve LEFS score to at least 60'5 as measure of improved activity tolerance and function in the home and community LTG Duration 07/18/23 One Impairment gait dysfunction Impairment uses 4WW for gait Short Term Goal (STG) Patient able to ambulate on level surfaces and stairs using a SPC without limp or increase in pain STG Duration 06/18/23 [facility]itentiary Goal (LTG) able to ambulate without assistive device without limp on level and alternating feet on stairs. LTG Duration 07/18/23 Assessment Summary Assessment Treatment modified due to drained cyst. BP monitored due to change in medication. able to ambulate up and down 4 stairs with kianna rail (light to mod support) with alternating pattern. Good healing of incision, should be able to start scar massage next session. Physical Therapy Plan Frequency and Duration Frequency of Treatment 2x/Week Duration of treatment (weeks) 12 Plan of Care Start Date 05/18/23 Plan of Care End Date 07/18/23 Therapeutic Interventions Therapeutic Interventions Balance Training,Gait Training ,Home Exercise Program,Manual Therapy,Patient/Caregiver Education,Self-Care/Home Management,Soft Tissue Mobilization,Taping, Therapeutic Activities, Therapeutic Exercises Modalities Cold Pack/Ice Massage,Electric Stimulation,Hot Packs Next Visit Focus/Plan Next Note Type Treatment Note Next Visit Plan Continue GIUSEPPE rehab as tolerated with modifications as needed during healing of drained cyst, emphasis on symmetry and gluteal activation with gait. Progress to further uneven gait activities, neuro- reeducation
--- NOTE | 2023-06-06 11:55 | PT.OTN ---
Current Diagnoses Unilateral primary osteoarthritis, right hip (06/06/23) Difficulty in walking, not elsewhere classified (06/06/23) Weakness (06/06/23) Presence of right artificial hip joint (06/06/23) Physical Therapy Treatment Note PT-OP-A Visit Information Start: 05/17/23 16:19 Freq: Status: Active Protocol: Document 06/06/23 08:57 SAK (Rec: 06/06/23 09:46 SAK [id number]) Out-Patient Physical Therapy Visit Information Visit Information Visit Type Treatment Note Visit Start Time 09:00 Visit Stop Time 09:55 Total Visit Minutes 55 Visit Number 5 Evaluation Information Evaluation Date 05/18/23 Precautions Precautions posterior GIUSEPPE precautions PT-OP-B Current Condition Start: 05/17/23 16:19 Freq: Status: Active Protocol: Document 06/06/23 08:57 SAK (Rec: 06/06/23 09:46 SAK [id number]) Current Condition History of Current Condition Onset Date 05/02/23 Current Complaints R hip pain, difficulty with gait, weakness. History of Current Condition R posterior approach GIUSEPPE May 02. Spent night in hospital due to nausea, vomiting. Has weaned off Oxycodone and Vistaril. Took Ibuprofen this am. Can get in and out of bed on her own. Wasn't sent home with HEP. Trying to work on her walking. Had 2 week pst-op with andre ALEX to start PT . Prior Treatments and Tests 2 week follow-up, no issues. Treatment Goals Patient/Caregiver Goals resume independent gait without device Personal Factors Other Personal Factors That May Effect PMH: kianna TKA, left TSA, spinal Therapy/Recovery fusion L3-S1 PT-OP-C Subjective Start: 05/17/23 16:19 Freq: Status: Active Protocol: Document 06/06/23 08:57 SAK (Rec: 06/06/23 09:46 SAK [id number]) OP-PT Subjective Patient Comments Patient Comments Still not supposed to lay on back as cyst continues to heal . Still taking antibiotic. Has used vitamin E oil on scar x 1. Occasional pain front of hip, min pain GIUSEPPE site. PT-OP-D Balance Start: 05/17/23 16:19 Freq: Status: Active Protocol: Document 05/18/23 08:39 SAK (Rec: 05/22/23 08:43 SAK [id number]) OP-PT Balance Assessment Sitting Balance Static Sitting Balance Ability Normal Dynamic Sitting Balance Ability Normal Standing Balance Static Standing Balance Ability Fair Dynamic Standing Balance Ability Fair Balance Tests Single Limb Standing Single Limb- Right unable Single Limb- Left 2 Tripathi Fall Scale Copyright Permission PT-OP-G Mobility & Gait Start: 05/17/23 16:19 Freq: Status: Active Protocol: Document 05/18/23 08:39 [facility] (Rec: 05/22/23 08:43 [facility] [id number]) OP Mobility Evaluation Transfers Sit to Stand indep with dec wb R LE OP Gait Assessment Gait Gait Assistance Required: Independent Distance (Feet) 60 Able to Maintain Weight Bearing Status Yes During Gait Assistive Devices Assistive Device Front Wheeled Walker Orthotic/Prosthetic Devices or Brace: No Gait Deviations General Gait Pattern Antalgic Factors Limiting Gait Function Factors Limiting Gait Function Decreased Activity Tolerance, Decreased Strength,Pain Stair Climbing Evaluation Evaluation Level of Assist On Stairs Standby Assistance Devices Stair Climbing Assistive Devices Left Railing,Right Railing Technique/Endurance Stair Climbing Direction Ascend and Descend Stair Climbing Technique Step to Step PT-OP-J Posture/Palpation/Skin Start: 05/17/23 16:19 Freq: Status: Active Protocol: Document 05/18/23 08:39 [facility] (Rec: 05/22/23 08:43 [facility] [id number]) Skin Assessment Incisional Assessment Incision Appearance/Comments GIUSEPPE incision haling well, no signs or symptoms of infection . PT-OP-K Range of Motion Start: 05/17/23 16:19 Freq: Status: Active Protocol: Document 05/18/23 08:39 [facility] (Rec: 05/22/23 08:43 [facility] [id number]) Hip Goniometric Range of Motion Hip Right Comments not assessed due to recent surgery, functional motion available for transfers, bed mobility, and gait Left Hip ROM WFL Yes PT-OP-M Strength Start: 05/17/23 16:19 Freq: Status: Active Protocol: Document 05/18/23 08:39 [facility] (Rec: 05/22/23 08:43 [facility] [id number]) Hip Strength Hip Manual Muscle Testing Right Comments not assessed due to recent surgery Knee Strength Knee Manual Muscle Testing Right Comments no MMT due to recent GIUSEPPE right Left Flexion (S2) 5 Normal Extension (L3) 5 Normal Ankle/Foot Strength Ankle and Foot Manual Muscle Testing kianna Dorsiflexion (L4) 5 Normal Plantarflexion (S1) 5 Normal PT-OP-Q Treatments Start: 05/17/23 16:19 Freq: Status: Active Protocol: Document 06/06/23 08:57 [facility] (Rec: 06/06/23 09:46 [facility] [id number]) Cardio Equipment Recumbent Stepper (Sci-Fit) Duration (Minutes) 8 Resistance 1 Seat Position 10 Gym Equipment Sport Cord fwd, side Comments next session Therapeutic Exercises Sitting Exercises seated clam Resistance L1 TB Reps/Minutes 10x ball squeeze Reps/Minutes 10x LAQ Reps/Minutes 10x5 glut sets Sitting Exercise Name HEP Standing Exercises chair squats Reps/Minutes 10x Comments cues for hip hinge, equal weight-bearing. Gait Training Gait Activity stairs Level of Assistance SBA, kianna rails Surface 4 stairs, 6 stairs Treatment Focus gluteal activation Comments 1x 4 stairs, 2x 6 stairs alternating but with inc UE use no device Surface firm Distance/Duration 10 ft 4 Comments mirror for visual feedback, VC for inc wt shift and stance time right, gluteal activation cane Device Used SPC Level of Assistance SBA, cues Surface firm Distance/Duration 50'x2 Treatment Focus gait and muscle activation sequencing, equal step-length, gluteal activatio Manual Therapy Treatment Soft Tissue Mobilization right hip Body Location lateral Mobilization Type Manual Lymphatic Drainage, Myofascial Release,Strumming Intensity/Depth gentle Body Position left sidelying Comments sup and inf scar Self-Care/Home Management Treatment Education Patient Education Body Mechanics,Home Exercise Program PT-OP-R Modalities Start: 05/17/23 16:19 Freq: Status: Active Protocol: Document 06/06/23 08:57 [facility] (Rec: 06/06/23 11:55 [facility] [id number]) Hot Pack/Cold Pack Treatment Cold Pack Location right hip Patient Position Sidelying Treatment Duration (minutes) 10 Patient Tolerance Good PT-OP-T Assessment and Plan Start: 05/17/23 16:19 Freq: Status: Active Protocol: Document 06/06/23 08:57 [facility] (Rec: 06/06/23 09:46 [facility] [id number]) Physical Therapy Assessment Goals Two Impairment pain right hip Impairment pain as high as 7/10 Short Term Goal (STG) Decrease pain to no greater than 4/10 with all usual activities STG Duration 06/18/23 Studio Technician Goal (LTG) Decrease pain to no greater than 2/10 with all usual activities LTG Duration 07/18/23 Three Impairment activity tolerance Impairment LEFS 26% Short Term Goal (STG) Improve LEFS score to at least 40% as measure of improved activity tolerance and function in the home and community STG Duration 06/18/23 Studio Technician Goal (LTG) Improve LEFS score to at least 60'5 as measure of improved activity tolerance and function in the home and community LTG Duration 07/18/23 One Impairment gait dysfunction Impairment uses 4WW for gait Short Term Goal (STG) Patient able to ambulate on level surfaces and stairs using a SPC without limp or increase in pain STG Duration 06/18/23 Longterm Goal (LTG) able to ambulate without assistive device without limp on level and alternating feet on stairs. LTG Duration 07/18/23 Assessment Summary Assessment BP 156/81, 151/76. hasn't taken BP meds yet. Improving gait with decreased compensatory movements. 6 stairs challenging requires inc UE use. dec weight bearing right LE with sit to stand/chair squats. Scar healing well, 1 small scab remains at top of incision. Physical Therapy Plan Frequency and Duration Frequency of Treatment 2x/Week Duration of treatment (weeks) 12 Plan of Care Start Date 05/18/23 Plan of Care End Date 07/18/23 Therapeutic Interventions Therapeutic Interventions Balance Training,Gait Training ,Home Exercise Program,Manual Therapy,Patient/Caregiver Education,Self-Care/Home Management,Soft Tissue Mobilization,Taping, Therapeutic Activities, Therapeutic Exercises Modalities Cold Pack/Ice Massage,Electric Stimulation,Hot Packs Next Visit Focus/Plan Next Note Type Treatment Note Next Visit Plan Add sport cord with light resistance to work on gait mechanics and muscle activation sequencing with mirror for visual feedback. Shuttle leg press if able to lay supine. Continue soft tissue work including directly over scar if fully healed.
--- NOTE | 2023-06-08 08:52 | PT.OTN ---
Current Diagnoses Unilateral primary osteoarthritis, right hip (06/08/23) Difficulty in walking, not elsewhere classified (06/08/23) Weakness (06/08/23) Presence of right artificial hip joint (06/08/23) Physical Therapy Treatment Note PT-OP-A Visit Information Start: 05/17/23 16:19 Freq: Status: Active Protocol: Document 06/08/23 09:04 SAK (Rec: 06/08/23 09:46 [facility] [id number]) Out-Patient Physical Therapy Visit Information Visit Information Visit Type Treatment Note Visit Start Time 09:00 Visit Stop Time 09:55 Total Visit Minutes 55 Visit Number 6 Evaluation Information Evaluation Date 05/18/23 Precautions Precautions posterior GIUSEPPE precautions PT-OP-B Current Condition Start: 05/17/23 16:19 Freq: Status: Active Protocol: Document 06/08/23 09:04 SAK (Rec: 06/08/23 09:46 SAK [id number]) Current Condition History of Current Condition Onset Date 05/02/23 Current Complaints R hip pain, difficulty with gait, weakness. History of Current Condition R posterior approach GIUSEPPE May 02. Spent night in hospital due to nausea, vomiting. Has weaned off Oxycodone and Vistaril. Took Ibuprofen this am. Can get in and out of bed on her own. Wasn't sent home with HEP. Trying to work on her walking. Had 2 week pst-op with andre ALEX to start PT . Prior Treatments and Tests 2 week follow-up, no issues. Treatment Goals Patient/Caregiver Goals resume independent gait without device Personal Factors Other Personal Factors That May Effect PMH: kianna TKA, left TSA, spinal Therapy/Recovery fusion L3-S1 PT-OP-C Subjective Start: 05/17/23 16:19 Freq: Status: Active Protocol: Document 06/08/23 09:04 SAK (Rec: 06/08/23 09:46 [facility] [id number]) OP-PT Subjective Patient Comments Patient Comments No new c/o. Brought trekking pole for evaluation. Hasn't taken blood pressure medication yet; takes at 10 am and pm PT-OP-D Balance Start: 05/17/23 16:19 Freq: Status: Active Protocol: Document 05/18/23 08:39 SAK (Rec: 05/22/23 08:43 SAK [id number]) OP-PT Balance Assessment Sitting Balance Static Sitting Balance Ability Normal Dynamic Sitting Balance Ability Normal Standing Balance Static Standing Balance Ability Fair Dynamic Standing Balance Ability Fair Balance Tests Single Limb Standing Single Limb- Right unable Single Limb- Left 2 Tripathi Fall Scale Copyright Permission PT-OP-G Mobility & Gait Start: 05/17/23 16:19 Freq: Status: Active Protocol: Document 05/18/23 08:39 [facility] (Rec: 05/22/23 08:43 [facility] [id number]) OP Mobility Evaluation Transfers Sit to Stand indep with dec wb R LE OP Gait Assessment Gait Gait Assistance Required: Independent Distance (Feet) 60 Able to Maintain Weight Bearing Status Yes During Gait Assistive Devices Assistive Device Front Wheeled Walker Orthotic/Prosthetic Devices or Brace: No Gait Deviations General Gait Pattern Antalgic Factors Limiting Gait Function Factors Limiting Gait Function Decreased Activity Tolerance, Decreased Strength,Pain Stair Climbing Evaluation Evaluation Level of Assist On Stairs Standby Assistance Devices Stair Climbing Assistive Devices Left Railing,Right Railing Technique/Endurance Stair Climbing Direction Ascend and Descend Stair Climbing Technique Step to Step PT-OP-J Posture/Palpation/Skin Start: 05/17/23 16:19 Freq: Status: Active Protocol: Document 05/18/23 08:39 [facility] (Rec: 05/22/23 08:43 [facility] [id number]) Skin Assessment Incisional Assessment Incision Appearance/Comments GIUSEPPE incision haling well, no signs or symptoms of infection . PT-OP-K Range of Motion Start: 05/17/23 16:19 Freq: Status: Active Protocol: Document 05/18/23 08:39 [facility] (Rec: 05/22/23 08:43 [facility] [id number]) Hip Goniometric Range of Motion Hip Right Comments not assessed due to recent surgery, functional motion available for transfers, bed mobility, and gait Left Hip ROM WFL Yes PT-OP-M Strength Start: 05/17/23 16:19 Freq: Status: Active Protocol: Document 05/18/23 08:39 [facility] (Rec: 05/22/23 08:43 [facility] [id number]) Hip Strength Hip Manual Muscle Testing Right Comments not assessed due to recent surgery Knee Strength Knee Manual Muscle Testing Right Comments no MMT due to recent GIUSEPPE right Left Flexion (S2) 5 Normal Extension (L3) 5 Normal Ankle/Foot Strength Ankle and Foot Manual Muscle Testing kianna Dorsiflexion (L4) 5 Normal Plantarflexion (S1) 5 Normal PT-OP-Q Treatments Start: 05/17/23 16:19 Freq: Status: Active Protocol: Document 06/08/23 09:04 [facility] (Rec: 06/08/23 09:46 [facility] [id number]) Cardio Equipment Recumbent Stepper (Sci-Fit) Duration (Minutes) 9 Resistance 1.5 Seat Position 10 Gym Equipment Sport Cord fwd, side Exercise Details fwd Cord/Resistance red Reps/Duration 5x Comments mirror for visual feedback Therapeutic Exercises Standing Exercises chair squats Reps/Minutes 10x Comments cues for hip hinge, equal weight-bearing. Manual Therapy Treatment Soft Tissue Mobilization right hip Body Location lateral Mobilization Type Manual Lymphatic Drainage, Myofascial Release,Strumming Intensity/Depth gentle Body Position left sidelying Comments sup and inf scar Self-Care/Home Management Treatment Education Patient Education Body Mechanics,Home Exercise Program PT-OP-R Modalities Start: 05/17/23 16:19 Freq: Status: Active Protocol: Document 06/08/23 09:04 [facility] (Rec: 06/08/23 09:46 [facility] [id number]) Hot Pack/Cold Pack Treatment Cold Pack Location right hip Patient Position Sidelying Treatment Duration (minutes) 10 Patient Tolerance Good PT-OP-T Assessment and Plan Start: 05/17/23 16:19 Freq: Status: Active Protocol: Document 06/08/23 09:04 [facility] (Rec: 06/08/23 09:46 [facility] [id number]) Physical Therapy Assessment Goals Two Impairment pain right hip Impairment pain as high as 7/10 Short Term Goal (STG) Decrease pain to no greater than 4/10 with all usual activities STG Duration 06/18/23 Roller Goal (LTG) Decrease pain to no greater than 2/10 with all usual activities LTG Duration 07/18/23 Three Impairment activity tolerance Impairment LEFS 26% Short Term Goal (STG) Improve LEFS score to at least 40% as measure of improved activity tolerance and function in the home and community STG Duration 06/18/23 Roller Goal (LTG) Improve LEFS score to at least 60'5 as measure of improved activity tolerance and function in the home and community LTG Duration 07/18/23 One Impairment gait dysfunction Impairment uses 4WW for gait Short Term Goal (STG) Patient able to ambulate on level surfaces and stairs using a SPC without limp or increase in pain STG Duration 06/18/23 Roller Goal (LTG) able to ambulate without assistive device without limp on level and alternating feet on stairs. LTG Duration 07/18/23 Assessment Summary Assessment Improved gait with visual feedback, light resistance of sport cord. Incision healing well, scab reduced but still present proximal edge of incision. Improved understanding of form with squat/sit to stand ex Physical Therapy Plan Frequency and Duration Frequency of Treatment 2x/Week Duration of treatment (weeks) 12 Plan of Care Start Date 05/18/23 Plan of Care End Date 07/18/23 Therapeutic Interventions Therapeutic Interventions Balance Training,Gait Training ,Home Exercise Program,Manual Therapy,Patient/Caregiver Education,Self-Care/Home Management,Soft Tissue Mobilization,Taping, Therapeutic Activities, Therapeutic Exercises Modalities Cold Pack/Ice Massage,Electric Stimulation,Hot Packs Next Visit Focus/Plan Next Note Type Treatment Note Next Visit Plan Patient to be gone x 1 week for Thanksgiving holiday with family. REsume PT when she returns.
--- NOTE | 2023-06-19 12:09 | PT.OTN ---
Current Diagnoses Unilateral primary osteoarthritis, right hip (06/19/23) Difficulty in walking, not elsewhere classified (06/19/23) Weakness (06/19/23) Presence of right artificial hip joint (06/19/23) Physical Therapy Treatment Note PT-OP-A Visit Information Start: 05/17/23 16:19 Freq: Status: Active Protocol: Document 06/19/23 10:27 SAK (Rec: 06/19/23 11:16 SAK [id number]) Out-Patient Physical Therapy Visit Information Visit Information Visit Type Treatment Note Visit Start Time 10:30 Visit Stop Time 09:55 Total Visit Minutes 55 Visit Number 7 Evaluation Information Evaluation Date 05/18/23 Precautions Precautions posterior GIUSEPPE precautions PT-OP-B Current Condition Start: 05/17/23 16:19 Freq: Status: Active Protocol: Document 06/19/23 10:27 SAK (Rec: 06/19/23 11:16 SAK [id number]) Current Condition History of Current Condition Onset Date 05/02/23 Current Complaints R hip pain, difficulty with gait, weakness. History of Current Condition R posterior approach GIUSEPPE May 02. Spent night in hospital due to nausea, vomiting. Has weaned off Oxycodone and Vistaril. Took Ibuprofen this am. Can get in and out of bed on her own. Wasn't sent home with HEP. Trying to work on her walking. Had 2 week pst-op with PA ok to start PT . Prior Treatments and Tests 2 week follow-up, no issues. Treatment Goals Patient/Caregiver Goals resume independent gait without device Personal Factors Other Personal Factors That May Effect PMH: kianna TKA, left TSA, spinal Therapy/Recovery fusion L3-S1 PT-OP-C Subjective Start: 05/17/23 16:19 Freq: Status: Active Protocol: Document 06/19/23 10:27 SAK (Rec: 06/19/23 11:16 SAK [id number]) OP-PT Subjective Patient Comments Patient Comments Had good week off with family, lots of walking, lots of stairs. PT-OP-D Balance Start: 05/17/23 16:19 Freq: Status: Active Protocol: Document 05/18/23 08:39 SAK (Rec: 05/22/23 08:43 SAK [id number]) OP-PT Balance Assessment Sitting Balance Static Sitting Balance Ability Normal Dynamic Sitting Balance Ability Normal Standing Balance Static Standing Balance Ability Fair Dynamic Standing Balance Ability Fair Balance Tests Single Limb Standing Single Limb- Right unable Single Limb- Left 2 Tripathi Fall Scale Copyright Permission PT-OP-G Mobility & Gait Start: 05/17/23 16:19 Freq: Status: Active Protocol: Document 05/18/23 08:39 [facility] (Rec: 05/22/23 08:43 [facility] [id number]) OP Mobility Evaluation Transfers Sit to Stand indep with dec wb R LE OP Gait Assessment Gait Gait Assistance Required: Independent Distance (Feet) 60 Able to Maintain Weight Bearing Status Yes During Gait Assistive Devices Assistive Device Front Wheeled Walker Orthotic/Prosthetic Devices or Brace: No Gait Deviations General Gait Pattern Antalgic Factors Limiting Gait Function Factors Limiting Gait Function Decreased Activity Tolerance, Decreased Strength,Pain Stair Climbing Evaluation Evaluation Level of Assist On Stairs Standby Assistance Devices Stair Climbing Assistive Devices Left Railing,Right Railing Technique/Endurance Stair Climbing Direction Ascend and Descend Stair Climbing Technique Step to Step PT-OP-J Posture/Palpation/Skin Start: 05/17/23 16:19 Freq: Status: Active Protocol: Document 05/18/23 08:39 [facility] (Rec: 05/22/23 08:43 [facility] [id number]) Skin Assessment Incisional Assessment Incision Appearance/Comments GIUSEPPE incision haling well, no signs or symptoms of infection . PT-OP-K Range of Motion Start: 05/17/23 16:19 Freq: Status: Active Protocol: Document 05/18/23 08:39 [facility] (Rec: 05/22/23 08:43 [facility] [id number]) Hip Goniometric Range of Motion Hip Right Comments not assessed due to recent surgery, functional motion available for transfers, bed mobility, and gait Left Hip ROM WFL Yes PT-OP-M Strength Start: 05/17/23 16:19 Freq: Status: Active Protocol: Document 05/18/23 08:39 [facility] (Rec: 05/22/23 08:43 [facility] [id number]) Hip Strength Hip Manual Muscle Testing Right Comments not assessed due to recent surgery Knee Strength Knee Manual Muscle Testing Right Comments no MMT due to recent GIUSEPPE right Left Flexion (S2) 5 Normal Extension (L3) 5 Normal Ankle/Foot Strength Ankle and Foot Manual Muscle Testing kianna Dorsiflexion (L4) 5 Normal Plantarflexion (S1) 5 Normal PT-OP-Q Treatments Start: 05/17/23 16:19 Freq: Status: Active Protocol: Document 06/19/23 10:27 [facility] (Rec: 06/19/23 11:16 [facility] [id number]) Cardio Equipment Recumbent Stepper (Sci-Fit) Duration (Minutes) 10 Resistance 2 Gym Equipment Sport Cord fwd, side Exercise Details fwd Cord/Resistance red Reps/Duration 5x Comments mirror for visual feedback Therapeutic Exercises Sitting Exercises seated clam Resistance L1 TB Reps/Minutes 10x ball squeeze Reps/Minutes 10x LAQ Reps/Minutes 10x5 glut sets Sitting Exercise Name HEP Gait Training Gait Activity no device Surface firm Distance/Duration 10 ft 4 Comments mirror for visual feedback, VC for inc wt shift and stance time right, gluteal activation cane Device Used SPC Level of Assistance SBA, cues Surface firm Distance/Duration 50'x2 Treatment Focus gait and muscle activation sequencing, equal step-length, gluteal activatio Manual Therapy Treatment Soft Tissue Mobilization right hip Body Location lateral Mobilization Type Manual Lymphatic Drainage, Myofascial Release,Strumming Intensity/Depth gentle Body Position left sidelying Comments sup and inf scar Self-Care/Home Management Treatment Education Patient Education Body Mechanics,Home Exercise Program,Joint Protection PT-OP-R Modalities Start: 05/17/23 16:19 Freq: Status: Active Protocol: Document 06/19/23 10:27 [facility] (Rec: 06/19/23 11:16 [facility] [id number]) Hot Pack/Cold Pack Treatment Cold Pack Location right hip Patient Position Sidelying Treatment Duration (minutes) 10 Patient Tolerance Good PT-OP-T Assessment and Plan Start: 05/17/23 16:19 Freq: Status: Active Protocol: Document 06/19/23 10:27 [facility] (Rec: 06/19/23 11:16 [facility] [id number]) Physical Therapy Assessment Goals Two Impairment pain right hip Impairment pain as high as 7/10 Short Term Goal (STG) Decrease pain to no greater than 4/10 with all usual activities 06/19/23: goal met STG Duration 06/18/23 Mcfp Goal (LTG) Decrease pain to no greater than 2/10 with all usual activities LTG Duration 07/18/23 Three Impairment activity tolerance Impairment LEFS 26% Short Term Goal (STG) Improve LEFS score to at least 40% as measure of improved activity tolerance and function in the home and community 06/19/23: STG Duration 06/18/23 Mcfp Goal (LTG) Improve LEFS score to at least 60% as measure of improved activity tolerance and function in the home and community LTG Duration 07/18/23 One Impairment gait dysfunction Impairment uses 4WW for gait Short Term Goal (STG) Patient able to ambulate on level surfaces and stairs using a SPC without limp or increase in pain 06/19/23: mostly met STG Duration 06/18/23 Analytical Scientist Goal (LTG) able to ambulate without assistive device without limp on level and alternating feet on stairs. LTG Duration 07/18/23 Assessment Summary Assessment Small scratch superior to scar , redness proximal to scar; patient reports thinks she has been scratching scar due to itchiness. Improving gait with dec lateral lean and improved gluteal activation if focuses. Still hip flexor soreness. Physical Therapy Plan Frequency and Duration Frequency of Treatment 2x/Week Duration of treatment (weeks) 12 Plan of Care Start Date 05/18/23 Plan of Care End Date 07/18/23 Therapeutic Interventions Therapeutic Interventions Balance Training,Gait Training ,Home Exercise Program,Manual Therapy,Patient/Caregiver Education,Self-Care/Home Management,Soft Tissue Mobilization,Taping, Therapeutic Activities, Therapeutic Exercises Modalities Cold Pack/Ice Massage,Electric Stimulation,Hot Packs Next Visit Focus/Plan Next Note Type Treatment Note Next Visit Plan Continue GIUSEPPE rehab.
--- NOTE | 2023-07-03 08:08 | PT-OP ANOTE ---
cancelled due to exposed to Covid
--- NOTE | 2023-07-11 16:05 | PT.OTN ---
Current Diagnoses Unilateral primary osteoarthritis, right hip (07/11/23) Difficulty in walking, not elsewhere classified (07/11/23) Weakness (07/11/23) Presence of right artificial hip joint (07/11/23) Physical Therapy Treatment Note PT-OP-A Visit Information Start: 05/17/23 16:19 Freq: Status: Active Protocol: Document 07/11/23 14:40 SAK (Rec: 07/11/23 15:21 SAK [id number]) Out-Patient Physical Therapy Visit Information Visit Information Visit Type Treatment Note Visit Start Time 14:35 Visit Stop Time 15:30 Total Visit Minutes 55 Visit Number 8 Evaluation Information Evaluation Date 05/18/23 Precautions Precautions posterior GIUSEPPE precautions PT-OP-B Current Condition Start: 05/17/23 16:19 Freq: Status: Active Protocol: Document 06/19/23 10:27 SAK (Rec: 06/19/23 11:16 SAK [id number]) Current Condition History of Current Condition Onset Date 05/02/23 Current Complaints R hip pain, difficulty with gait, weakness. History of Current Condition R posterior approach GIUSEPPE May 02. Spent night in hospital due to nausea, vomiting. Has weaned off Oxycodone and Vistaril. Took Ibuprofen this am. Can get in and out of bed on her own. Wasn't sent home with HEP. Trying to work on her walking. Had 2 week pst-op with PA, ok to start PT . Prior Treatments and Tests 2 week follow-up, no issues. Treatment Goals Patient/Caregiver Goals resume independent gait without device Personal Factors Other Personal Factors That May Effect PMH: kianna TKA, left TSA, spinal Therapy/Recovery fusion L3-S1 PT-OP-C Subjective Start: 05/17/23 16:19 Freq: Status: Active Protocol: Document 07/11/23 14:40 SAK (Rec: 07/11/23 15:21 SAK [id number]) OP-PT Subjective Patient Comments Patient Comments Had Covid, doing ex as able but fatigued. Has cane in car just in case, hasn't used recently. Had 8 wk follow-up with surgeon; states he was pleased, continue PT. States she is now allowed to sleep on both sides. PT-OP-D Balance Start: 05/17/23 16:19 Freq: Status: Active Protocol: Document 05/18/23 08:39 SAK (Rec: 05/22/23 08:43 [facility] [id number]) OP-PT Balance Assessment Sitting Balance Static Sitting Balance Ability Normal Dynamic Sitting Balance Ability Normal Standing Balance Static Standing Balance Ability Fair Dynamic Standing Balance Ability Fair Balance Tests Single Limb Standing Single Limb- Right unable Single Limb- Left 2 Tripathi Fall Scale Copyright Permission PT-OP-G Mobility & Gait Start: 05/17/23 16:19 Freq: Status: Active Protocol: Document 05/18/23 08:39 [facility] (Rec: 05/22/23 08:43 [facility] [id number]) OP Mobility Evaluation Transfers Sit to Stand indep with dec wb R LE OP Gait Assessment Gait Gait Assistance Required: Independent Distance (Feet) 60 Able to Maintain Weight Bearing Status Yes During Gait Assistive Devices Assistive Device Front Wheeled Walker Orthotic/Prosthetic Devices or Brace: No Gait Deviations General Gait Pattern Antalgic Factors Limiting Gait Function Factors Limiting Gait Function Decreased Activity Tolerance, Decreased Strength,Pain Stair Climbing Evaluation Evaluation Level of Assist On Stairs Standby Assistance Devices Stair Climbing Assistive Devices Left Railing,Right Railing Technique/Endurance Stair Climbing Direction Ascend and Descend Stair Climbing Technique Step to Step PT-OP-J Posture/Palpation/Skin Start: 05/17/23 16:19 Freq: Status: Active Protocol: Document 05/18/23 08:39 [facility] (Rec: 05/22/23 08:43 [facility] [id number]) Skin Assessment Incisional Assessment Incision Appearance/Comments GIUSEPPE incision haling well, no signs or symptoms of infection . PT-OP-K Range of Motion Start: 05/17/23 16:19 Freq: Status: Active Protocol: Document 05/18/23 08:39 [facility] (Rec: 05/22/23 08:43 [facility] [id number]) Hip Goniometric Range of Motion Hip Right Comments not assessed due to recent surgery, functional motion available for transfers, bed mobility, and gait Left Hip ROM WFL Yes PT-OP-M Strength Start: 05/17/23 16:19 Freq: Status: Active Protocol: Document 05/18/23 08:39 [facility] (Rec: 05/22/23 08:43 [facility] [id number]) Hip Strength Hip Manual Muscle Testing Right Comments not assessed due to recent surgery Knee Strength Knee Manual Muscle Testing Right Comments no MMT due to recent GIUSEPPE right Left Flexion (S2) 5 Normal Extension (L3) 5 Normal Ankle/Foot Strength Ankle and Foot Manual Muscle Testing kianna Dorsiflexion (L4) 5 Normal Plantarflexion (S1) 5 Normal PT-OP-Q Treatments Start: 05/17/23 16:19 Freq: Status: Active Protocol: Document 07/11/23 14:40 [facility] (Rec: 07/11/23 15:21 [facility] [id number]) Cardio Equipment Recumbent Stepper (Sci-Fit) Duration (Minutes) 5 Resistance 1 Seat Position 10 Gym Equipment Shuttle Recovery Unilateral Squats Resistance 37 left 37 right Reps/Time 10x Bilateral Squats Resistance 50 Reps/Time 10x Gait Training Gait Activity no device Surface firm Distance/Duration 10 ft 4 Comments mirror for visual feedback, VC for inc wt shift and stance time right, gluteal activation Manual Therapy Treatment Soft Tissue Mobilization right hip Body Location lateral Mobilization Type Manual Lymphatic Drainage, Myofascial Release,Strumming Intensity/Depth Moderate Body Position left sidelying Comments scar massage with suction tools, lateral hip MFR PT-OP-R Modalities Start: 05/17/23 16:19 Freq: Status: Active Protocol: Document 07/11/23 14:40 [facility] (Rec: 07/11/23 16:05 [facility] [id number]) Hot Pack/Cold Pack Treatment Hot Pack Location lateral right hip Patient Position Sidelying Treatment Duration (minutes) 15 Patient Tolerance Good PT-OP-T Assessment and Plan Start: 05/17/23 16:19 Freq: Status: Active Protocol: Document 07/11/23 14:40 [facility] (Rec: 07/11/23 15:21 [facility] [id number]) Physical Therapy Assessment Goals Two Impairment pain right hip Impairment pain as high as 7/10 Short Term Goal (STG) Decrease pain to no greater than 4/10 with all usual activities 06/19/23: goal met STG Duration 06/18/23 Residential Goal (LTG) Decrease pain to no greater than 2/10 with all usual activities LTG Duration 07/18/23 Three Impairment activity tolerance Impairment LEFS 26% Short Term Goal (STG) Improve LEFS score to at least 40% as measure of improved activity tolerance and function in the home and community 06/19/23: STG Duration 06/18/23 Rehabilitation Engineer Goal (LTG) Improve LEFS score to at least 60% as measure of improved activity tolerance and function in the home and community LTG Duration 07/18/23 One Impairment gait dysfunction Impairment uses 4WW for gait Short Term Goal (STG) Patient able to ambulate on level surfaces and stairs using a SPC without limp or increase in pain 06/19/23: mostly met STG Duration 06/18/23 Residential Goal (LTG) able to ambulate without assistive device without limp on level and alternating feet on stairs. LTG Duration 07/18/23 Physical Therapy Plan Frequency and Duration Frequency of Treatment 2x/Week Duration of treatment (weeks) 12 Plan of Care Start Date 05/18/23 Plan of Care End Date 07/18/23 Therapeutic Interventions Therapeutic Interventions Balance Training,Gait Training ,Home Exercise Program,Manual Therapy,Patient/Caregiver Education,Self-Care/Home Management,Soft Tissue Mobilization,Taping, Therapeutic Activities, Therapeutic Exercises Modalities Cold Pack/Ice Massage,Electric Stimulation,Hot Packs Next Visit Focus/Plan Next Note Type Treatment Note Next Visit Plan Continue GIUSEPPE rehab. Resume sport cord. Work on squats/ sit to stand without UE use and cues for gluteal activation
--- NOTE | 2023-07-31 17:03 | PT.OTRE ---
Current Diagnoses Unilateral primary osteoarthritis, right hip (07/31/23) Difficulty in walking, not elsewhere classified (07/31/23) Weakness (07/31/23) Presence of right artificial hip joint (07/31/23) Past Medical History (Last Updated 07/31/23 @ 12:48 by Cecilia Brown DO) Asthma Cataract Chronic back pain CTS (carpal tunnel syndrome) JOHNSON (dyspnea on exertion) Epidermal cyst (~04/2023) Essential hypertension (04/25/17) Greater trochanteric bursitis of left hip Ground-level fall Hypercalcemia Hyperlipidemia Hyperparathyroidism Hypertension Left hamstring injury Left hamstring muscle strain Measles Osteoarthritis Osteoarthritis of right hip Strain of adductor nando muscle Strain of right psoas muscle Supraspinatus tendon tear Tachycardia determined by examination of pulse Varicose veins of left lower extremity Surgical History (Last Reviewed 03/12/23 @ 03:13 by Hayder Bonner DO) Anesthesia H/O colonoscopy with polypectomy (~10/2020) History of knee replacement (2016) History of spinal fusion (06/2009) History of spinal fusion (2011) Status post parathyroidectomy (2015) Status post tonsillectomy and adenoidectomy (1947) Visit Care Team Role Provider Type Cecilia Brown DO Family Provider Physician Primary Care Provider Specialty: Medical Address: [address] [place] [address], [address], [place], [address] Email: [email or web address] Artemio Burgos MD Attending Provider Non-Staff Referring Provider Specialty: Orthopedic Surgery Address: [address] [place] [address], [place], [address] Email: Physical Therapy Re-Evaluation PT-OP-A Visit Information Start: 05/17/23 16:19 Freq: Status: Active Protocol: Document 07/31/23 08:15 [facility] (Rec: 07/31/23 08:55 [facility]AK [id number]) Out-Patient Physical Therapy Visit Information Visit Information Visit Type Treatment Note Visit Start Time 08:15 Visit Stop Time 09:10 Total Visit Minutes 55 Visit Number 9 Evaluation Information Evaluation Date 05/18/23 Precautions Precautions posterior GIUSEPPE precautions PT-OP-B Current Condition Start: 05/17/23 16:19 Freq: Status: Active Protocol: Document 07/31/23 08:15 [facility] (Rec: 07/31/23 08:55 [facility] [id number]) Current Condition History of Current Condition Onset Date 05/02/23 Current Complaints R hip pain, difficulty with gait, weakness. History of Current Condition R posterior approach GIUSEPPE May 02. Spent night in hospital due to nausea, vomiting. Has weaned off Oxycodone and Vistaril. Took Ibuprofen this am. Can get in and out of bed on her own. Wasn't sent home with HEP. Trying to work on her walking. Had 2 week pst-op with andre ALEX to start PT . Prior Treatments and Tests 2 week follow-up, no issues. PT-OP-C Subjective Start: 05/17/23 16:19 Freq: Status: Active Protocol: Document 07/31/23 08:15 [facility] (Rec: 07/31/23 08:55 [facility] [id number]) OP-PT Subjective Patient Comments Patient Comments Saw Dr. Burgos for 2 month follow-up. He was pleased with her progress, wants continued PT. Due to right shoulder pain patient received injection right shoulder. ( prior left shoulder TSA) PT-OP-D Balance Start: 05/17/23 16:19 Freq: Status: Active Protocol: Document 05/18/23 08:39 [facility] (Rec: 05/22/23 08:43 [facility] [id number]) OP-PT Balance Assessment Sitting Balance Static Sitting Balance Ability Normal Dynamic Sitting Balance Ability Normal Standing Balance Static Standing Balance Ability Fair Dynamic Standing Balance Ability Fair Balance Tests Single Limb Standing Single Limb- Right unable Single Limb- Left 2 Tripathi Fall Scale Copyright Permission Deuce JM, Deuce RM, Karlos SJ. Development of a scale to identify the fall- prone patient. Can J Aging 1989;8;366-7. Robbie Tripathi (2009). Preventing patient falls. (2nd ed). Moffat: Vo. PT-OP-G Mobility & Gait Start: 05/17/23 16:19 Freq: Status: Active Protocol: Document 05/18/23 08:39 [facility] (Rec: 05/22/23 08:43 [facility] [id number]) OP Mobility Evaluation Transfers Sit to Stand indep with dec wb R LE OP Gait Assessment Gait Gait Assistance Required: Independent Distance (Feet) 60 Able to Maintain Weight Bearing Status Yes During Gait Assistive Devices Assistive Device Front Wheeled Walker Orthotic/Prosthetic Devices or Brace: No Gait Deviations General Gait Pattern Antalgic Factors Limiting Gait Function Factors Limiting Gait Function Decreased Activity Tolerance, Decreased Strength,Pain Stair Climbing Evaluation Evaluation Level of Assist On Stairs Standby Assistance Devices Stair Climbing Assistive Devices Left Railing,Right Railing Technique/Endurance Stair Climbing Direction Ascend and Descend Stair Climbing Technique Step to Step PT-OP-J Posture/Palpation/Skin Start: 05/17/23 16:19 Freq: Status: Active Protocol: Document 05/18/23 08:39 [facility] (Rec: 05/22/23 08:43 [facility] [id number]) Skin Assessment Incisional Assessment Incision Appearance/Comments GIUSEPPE incision haling well, no signs or symptoms of infection . PT-OP-K Range of Motion Start: 05/17/23 16:19 Freq: Status: Active Protocol: Document 05/18/23 08:39 [facility] (Rec: 05/22/23 08:43 [facility] [id number]) Hip Goniometric Range of Motion Hip Measured in Degrees Right Comments not assessed due to recent surgery, functional motion available for transfers, bed mobility, and gait Left Hip ROM WFL Yes PT-OP-M Strength Start: 05/17/23 16:19 Freq: Status: Active Protocol: Document 05/18/23 08:39 [facility] (Rec: 05/22/23 08:43 [facility] [id number]) Hip Strength Hip Manual Muscle Testing Right Comments not assessed due to recent surgery Knee Strength Knee Manual Muscle Testing Right Comments no MMT due to recent GIUSEPPE right Left Flexion (S2) 5 Normal Extension (L3) 5 Normal Ankle/Foot Strength Ankle and Foot Manual Muscle Testing kianna Dorsiflexion (L4) 5 Normal Plantarflexion (S1) 5 Normal PT-OP-Q Treatments Start: 05/17/23 16:19 Freq: Status: Active Protocol: Document 07/31/23 08:15 [facility] (Rec: 07/31/23 08:55 [facility] [id number]) Therapeutic Exercises Supine Exercises butterfly stretch Comments verbal instruction, review next session Sidelying Exercises clamshell, reverse clamshell Reps/Minutes 10x Comments cues for small movement Sitting Exercises giovanni hip ER/IR Equipment Used dycem Reps/Minutes 5 Comments needs further review Gait Training Gait Activity stairs Level of Assistance SBA, kianna rails Surface 4 stairs, 6 stairs Treatment Focus gluteal activation Comments 1x 4 stairs, 2x 6 stairs alternating but with inc UE use no device Surface firm Distance/Duration 10 ft 4 Comments mirror for visual feedback, VC for inc wt shift and stance time right, gluteal activation , dec lateral sway Manual Therapy Treatment Soft Tissue Mobilization right hip Body Location lateral Mobilization Type Manual Lymphatic Drainage, Myofascial Release,Strumming Intensity/Depth Moderate Body Position left sidelying Comments scar massage with suction tools, lateral hip MFR Other Other Manual Treatments ROM and strength testing PT-OP-R Modalities Start: 05/17/23 16:19 Freq: Status: Active Protocol: Document 07/31/23 08:15 [facility] (Rec: 07/31/23 08:55 [facility] [id number]) Hot Pack/Cold Pack Treatment Hot Pack Location lateral right hip Patient Position Sidelying Treatment Duration (minutes) 15 Patient Tolerance Good PT-OP-T Assessment and Plan Start: 05/17/23 16:19 Freq: Status: Active Protocol: Document 07/31/23 08:15 [facility] (Rec: 07/31/23 08:55 [facility] [id number]) Physical Therapy Assessment Goals Four Impairment unable to perform a full squat Short Term Goal (STG) Patient able to perform squat to 90 degrees and return to stand 10x without use of UEs STG Duration 08/31/23 Custodial Goal (LTG) Patient able to perform full squat and return to stand with min use of UEs LTG Duration 09/29/23 Two Impairment pain right hip Impairment pain as high as 7/10 Short Term Goal (STG) Decrease pain to no greater than 4/10 with all usual activities 06/19/23: goal met STG Duration goal met Custodial Goal (LTG) Decrease pain to no greater than 2/10 with all usual activities LTG Duration 09/29/23 Three Impairment activity tolerance Impairment LEFS 26% Short Term Goal (STG) Improve LEFS score to at least 40% as measure of improved activity tolerance and function in the home and community 06/19/23: 42% goal met STG Duration goal met Margin Trimmer Goal (LTG) Improve LEFS score to at least 60% as measure of improved activity tolerance and function in the home and community 07/31/23: improved to 48% LTG Duration 09/29/23 One Impairment gait dysfunction Impairment uses 4WW for gait Short Term Goal (STG) Patient able to ambulate on level surfaces and stairs using a SPC without limp or increase in pain 06/19/23: mostly met 07/31/23: goal met STG Duration goal met Margin Trimmer Goal (LTG) able to ambulate without assistive device without limp on level and alternating feet on stairs with min to no lateral sway LTG Duration 09/29/23 Assessment Summary Assessment BP 188/83 beginning of session . After 2 min rest 171/82. Pt. just took BP meds, to continue to monitor at home and notify physician if remains high even with meds. Modified treatment due to high BP today. Patient recovery from GIUSEPPE has been complicated by Covid with limited visits. Would benefit form further skilled PT to help her fully achieve her PT goals. States still has to use her UE's when going up stairs due to weakness in hip. Wants to be able to do a full squat. Physical Therapy Plan Frequency and Duration Frequency of Treatment 2x/Week Duration of treatment (weeks) 8 Plan of Care Start Date 07/31/23 Plan of Care End Date 09/29/23 Therapeutic Interventions Therapeutic Interventions Balance Training,Gait Training ,Home Exercise Program,Manual Therapy,Patient/Caregiver Education,Self-Care/Home Management,Soft Tissue Mobilization,Taping, Therapeutic Activities, Therapeutic Exercises Modalities Cold Pack/Ice Massage,Electric Stimulation,Hot Packs Next Visit Focus/Plan Next Note Type Treatment Note Next Visit Plan Continue GIUSEPPE rehab with emphasis on strengtheing and improved functional mobility and gait.
--- NOTE | 2023-07-31 17:03 | PT.OPPOC ---
Physical, Occupational & Speech Therapy At [facility] Current Diagnoses Unilateral primary osteoarthritis, right hip (07/31/23) Difficulty in walking, not elsewhere classified (07/31/23) Weakness (07/31/23) Presence of right artificial hip joint (07/31/23) Visit Care Team Role Provider Type Cecilia Brown DO Family Provider Physician Primary Care Provider Specialty: Medical Address: [address] [place] [address], [address], [place], [address] Email: [email or web address] Artemio Burgos MD Attending Provider Non-Staff Referring Provider Specialty: Orthopedic Surgery Address: [address] [place] [address], [place], [address] Email: Plan Of Care PT-OP-T Assessment and Plan Start: 05/17/23 16:19 Freq: Status: Active Protocol: Document 07/31/23 08:15 [facility] (Rec: 07/31/23 08:55 [facility] [id number]) Physical Therapy Assessment Goals Four Impairment unable to perform a full squat Short Term Goal (STG) Patient able to perform squat to 90 degrees and return to stand 10x without use of UEs STG Duration 08/31/23 Restaurant Crew Person Goal (LTG) Patient able to perform full squat and return to stand with min use of UEs LTG Duration 09/29/23 Two Impairment pain right hip Impairment pain as high as 7/10 Short Term Goal (STG) Decrease pain to no greater than 4/10 with all usual activities 06/19/23: goal met STG Duration goal met Residential Goal (LTG) Decrease pain to no greater than 2/10 with all usual activities LTG Duration 09/29/23 Three Impairment activity tolerance Impairment LEFS 26% Short Term Goal (STG) Improve LEFS score to at least 40% as measure of improved activity tolerance and function in the home and community 06/19/23: 42% goal met STG Duration goal met Residential Goal (LTG) Improve LEFS score to at least 60% as measure of improved activity tolerance and function in the home and community 07/31/23: improved to 48% LTG Duration 09/29/23 One Impairment gait dysfunction Impairment uses 4WW for gait Short Term Goal (STG) Patient able to ambulate on level surfaces and stairs using a SPC without limp or increase in pain 06/19/23: mostly met 07/31/23: goal met STG Duration goal met Restaurant Crew Person Goal (LTG) able to ambulate without assistive device without limp on level and alternating feet on stairs with min to no lateral sway LTG Duration 09/29/23 Assessment Summary Assessment BP 188/83 beginning of session . After 2 min rest 171/82. Pt. just took BP meds, to continue to monitor at home and notify physician if remains high even with meds. Modified treatment due to high BP today. Patient recovery from GIUSEPPE has been complicated by Covid with limited visits. Would benefit form further skilled PT to help her fully achieve her PT goals. States still has to use her UE's when going up stairs due to weakness in hip. Wants to be able to do a full squat. Physical Therapy Plan Frequency and Duration Frequency of Treatment 2x/Week Duration of treatment (weeks) 8 Plan of Care Start Date 07/31/23 Plan of Care End Date 09/29/23 Therapeutic Interventions Therapeutic Interventions Balance Training,Gait Training ,Home Exercise Program,Manual Therapy,Patient/Caregiver Education,Self-Care/Home Management,Soft Tissue Mobilization,Taping, Therapeutic Activities, Therapeutic Exercises Modalities Cold Pack/Ice Massage,Electric Stimulation,Hot Packs Next Visit Focus/Plan Next Note Type Treatment Note Next Visit Plan Continue GIUSEPPE rehab with emphasis on strengtheing and improved functional mobility and gait. Plan of Care Dates Plan of Care Start Date 07/31/23 Plan of Care End Date 09/29/23 Electronically Signed by: Martina Feng, PT 07/31/23 1425 If you are in agreement with this Plan of Care, please return a signed and dated copy. I have reviewed this Plan of Care and certify that the skilled therapy services above are required to meet the patient?s needs. Physician Signature Date Printed Name and Credentials Clinical Instructor Signature Printed Name and Credentials
--- NOTE | 2023-08-03 16:27 | PT.OTN ---
Current Diagnoses Unilateral primary osteoarthritis, right hip (08/03/23) Difficulty in walking, not elsewhere classified (08/03/23) Weakness (08/03/23) Presence of right artificial hip joint (08/03/23) Physical Therapy Treatment Note PT-OP-A Visit Information Start: 05/17/23 16:19 Freq: Status: Active Protocol: Document 08/03/23 09:00 [facility] (Rec: 08/03/23 09:45 [facility] [id number]) Out-Patient Physical Therapy Visit Information Visit Information Visit Type Treatment Note Visit Start Time 09:01 Visit Stop Time 09:56 Total Visit Minutes 55 Visit Number 10 Evaluation Information Evaluation Date 05/18/23 Precautions Precautions posterior GIUSEPPE precautions PT-OP-B Current Condition Start: 05/17/23 16:19 Freq: Status: Active Protocol: Document 08/03/23 09:00 [facility] (Rec: 08/03/23 09:45 [facility] [id number]) Current Condition History of Current Condition Onset Date 05/02/23 Current Complaints R hip pain, difficulty with gait, weakness. History of Current Condition R posterior approach GIUSEPPE May 02. Spent night in hospital due to nausea, vomiting. Has weaned off Oxycodone and Vistaril. Took Ibuprofen this am. Can get in and out of bed on her own. Wasn't sent home with HEP. Trying to work on her walking. Had 2 week pst-op with andre ALEX to start PT . Prior Treatments and Tests 2 week follow-up, no issues. PT-OP-C Subjective Start: 05/17/23 16:19 Freq: Status: Active Protocol: Document 08/03/23 09:00 [facility] (Rec: 08/03/23 09:45 [facility] [id number]) OP-PT Subjective Patient Comments Patient Comments urgent care yesterday, diagnosed with UTI without symptoms, on antibiotics. States BP was 135/90 there. Hasn't taken at home. PT-OP-D Balance Start: 05/17/23 16:19 Freq: Status: Active Protocol: Document 05/18/23 08:39 [facility] (Rec: 05/22/23 08:43 [facility] [id number]) OP-PT Balance Assessment Sitting Balance Static Sitting Balance Ability Normal Dynamic Sitting Balance Ability Normal Standing Balance Static Standing Balance Ability Fair Dynamic Standing Balance Ability Fair Balance Tests Single Limb Standing Single Limb- Right unable Single Limb- Left 2 Tripathi Fall Scale Copyright Permission PT-OP-G Mobility & Gait Start: 05/17/23 16:19 Freq: Status: Active Protocol: Document 05/18/23 08:39 [facility] (Rec: 05/22/23 08:43 [facility] [id number]) OP Mobility Evaluation Transfers Sit to Stand indep with dec wb R LE OP Gait Assessment Gait Gait Assistance Required: Independent Distance (Feet) 60 Able to Maintain Weight Bearing Status Yes During Gait Assistive Devices Assistive Device Front Wheeled Walker Orthotic/Prosthetic Devices or Brace: No Gait Deviations General Gait Pattern Antalgic Factors Limiting Gait Function Factors Limiting Gait Function Decreased Activity Tolerance, Decreased Strength,Pain Stair Climbing Evaluation Evaluation Level of Assist On Stairs Standby Assistance Devices Stair Climbing Assistive Devices Left Railing,Right Railing Technique/Endurance Stair Climbing Direction Ascend and Descend Stair Climbing Technique Step to Step PT-OP-J Posture/Palpation/Skin Start: 05/17/23 16:19 Freq: Status: Active Protocol: Document 05/18/23 08:39 [facility] (Rec: 05/22/23 08:43 [facility] [id number]) Skin Assessment Incisional Assessment Incision Appearance/Comments GIUSEPPE incision haling well, no signs or symptoms of infection . PT-OP-K Range of Motion Start: 05/17/23 16:19 Freq: Status: Active Protocol: Document 05/18/23 08:39 [facility] (Rec: 05/22/23 08:43 [facility] [id number]) Hip Goniometric Range of Motion Hip Right Comments not assessed due to recent surgery, functional motion available for transfers, bed mobility, and gait Left Hip ROM WFL Yes PT-OP-M Strength Start: 05/17/23 16:19 Freq: Status: Active Protocol: Document 05/18/23 08:39 [facility] (Rec: 05/22/23 08:43 [facility] [id number]) Hip Strength Hip Manual Muscle Testing Right Comments not assessed due to recent surgery Knee Strength Knee Manual Muscle Testing Right Comments no MMT due to recent GIUSEPPE right Left Flexion (S2) 5 Normal Extension (L3) 5 Normal Ankle/Foot Strength Ankle and Foot Manual Muscle Testing kianna Dorsiflexion (L4) 5 Normal Plantarflexion (S1) 5 Normal PT-OP-Q Treatments Start: 05/17/23 16:19 Freq: Status: Active Protocol: Document 08/03/23 09:00 [facility] (Rec: 08/03/23 09:45 [facility] [id number]) Cardio Equipment Recumbent Stepper (Sci-Fit) Duration (Minutes) 6 Resistance 2 Seat Position 10 Gym Equipment Shuttle Recovery Unilateral Squats Resistance 37 left 37 right Reps/Time 10x Bilateral Squats Resistance 50 Reps/Time 10x Therapeutic Exercises Sidelying Exercises clamshell, reverse clamshell Reps/Minutes 10x Comments cues for small movement Sitting Exercises giovanni hip ER/IR Equipment Used table leg to push agains Reps/Minutes 5 Comments needs further review Standing Exercises hip flexor stretch Reps/Minutes 2x30 Gait Training Gait Activity stairs Level of Assistance SBA, kianna rails Surface 4 stairs, 6 stairs Treatment Focus gluteal activation Comments 1x 4 stairs, 2x 6 stairs alternating but with inc UE use no device Surface firm Distance/Duration 10 ft 6 Comments mirror for visual feedback, VC for inc wt shift and stance time right, gluteal activation , dec lateral sway Manual Therapy Treatment Soft Tissue Mobilization right hip Body Location lateral Mobilization Type Myofascial Release,Strumming Intensity/Depth Moderate Body Position left sidelying Comments scar massage with suction tools, lateral hip MFR PT-OP-R Modalities Start: 05/17/23 16:19 Freq: Status: Active Protocol: Document 07/31/23 08:15 [facility] (Rec: 07/31/23 08:55 [facility] [id number]) Hot Pack/Cold Pack Treatment Hot Pack Location lateral right hip Patient Position Sidelying Treatment Duration (minutes) 15 Patient Tolerance Good PT-OP-T Assessment and Plan Start: 05/17/23 16:19 Freq: Status: Active Protocol: Document 08/03/23 09:00 [facility] (Rec: 08/03/23 09:45 [facility] [id number]) Physical Therapy Assessment Goals Four Impairment unable to perform a full squat Short Term Goal (STG) Patient able to perform squat to 90 degrees and return to stand 10x without use of UEs STG Duration 08/31/23 Electronics Recycler Goal (LTG) Patient able to perform full squat and return to stand with min use of UEs LTG Duration 09/29/23 Two Impairment pain right hip Impairment pain as high as 7/10 Short Term Goal (STG) Decrease pain to no greater than 4/10 with all usual activities 06/19/23: goal met STG Duration goal met Longterm Goal (LTG) Decrease pain to no greater than 2/10 with all usual activities LTG Duration 09/29/23 Three Impairment activity tolerance Impairment LEFS 26% Short Term Goal (STG) Improve LEFS score to at least 40% as measure of improved activity tolerance and function in the home and community 06/19/23: 42% goal met STG Duration goal met Electronics Recycler Goal (LTG) Improve LEFS score to at least 60% as measure of improved activity tolerance and function in the home and community 07/31/23: improved to 48% LTG Duration 09/29/23 One Impairment gait dysfunction Impairment uses 4WW for gait Short Term Goal (STG) Patient able to ambulate on level surfaces and stairs using a SPC without limp or increase in pain 06/19/23: mostly met 07/31/23: goal met STG Duration goal met Electronics Recycler Goal (LTG) able to ambulate without assistive device without limp on level and alternating feet on stairs with min to no lateral sway LTG Duration 09/29/23 Assessment Summary Assessment BP 167/73, after 3 min 154/68. Patient able to self-correct gait partially with use of mirror for visual feedback but still exhibits Trendelenberg, hyperextension of knees at heelstrike, forward flexion and dec gluteal activation. Added standing hip flexor stretch with good tolerance. Physical Therapy Plan Frequency and Duration Frequency of Treatment 2x/Week Duration of treatment (weeks) 8 Plan of Care Start Date 07/31/23 Plan of Care End Date 09/29/23 Therapeutic Interventions Therapeutic Interventions Balance Training,Gait Training ,Home Exercise Program,Manual Therapy,Patient/Caregiver Education,Self-Care/Home Management,Soft Tissue Mobilization,Taping, Therapeutic Activities, Therapeutic Exercises Modalities Cold Pack/Ice Massage,Electric Stimulation,Hot Packs Next Visit Focus/Plan Next Note Type Treatment Note Next Visit Plan Continue GIUSEPPE rehab with emphasis on strengtheing and improved functional mobility and gait.
--- NOTE | 2023-08-21 09:44 | PT.OTN ---
Current Diagnoses Unilateral primary osteoarthritis, right hip (08/21/23) Difficulty in walking, not elsewhere classified (08/21/23) Weakness (08/21/23) Presence of right artificial hip joint (08/21/23) Physical Therapy Treatment Note PT-OP-A Visit Information Start: 05/17/23 16:19 Freq: Status: Active Protocol: Document 08/21/23 09:02 [facility] (Rec: 08/21/23 09:43 [facility] [id number]) Out-Patient Physical Therapy Visit Information Visit Information Visit Type Treatment Note Visit Start Time 09:01 Visit Number 11 Evaluation Information Evaluation Date 05/18/23 Precautions Precautions posterior GIUSEPPE precautions PT-OP-B Current Condition Start: 05/17/23 16:19 Freq: Status: Active Protocol: Document 08/21/23 09:02 [facility] (Rec: 08/21/23 09:43 [facility] [id number]) Current Condition History of Current Condition Onset Date 05/02/23 Current Complaints R hip pain, difficulty with gait, weakness. History of Current Condition R posterior approach GIUSEPPE Apr 10. Spent night in hospital due to nausea, vomiting. Has weaned off Oxycodone and Vistaril. Took Ibuprofen this am. Can get in and out of bed on her own. Wasn't sent home with HEP. Trying to work on her walking. Had 2 week pst-op with andre [facility]LEX to start PT . Prior Treatments and Tests 2 week follow-up, no issues. PT-OP-C Subjective Start: 05/17/23 16:19 Freq: Status: Active Protocol: Document 08/21/23 09:02 [facility] (Rec: 08/21/23 09:43 [facility] [id number]) OP-PT Subjective Patient Comments Patient Comments BP 137/86 start of session today. Has had some changes in her cardiac medications, feeling less tired. Less of the deep groin pain; not as intense or as often. BP after Sci-Fit 6 min L2 PT-OP-D Balance Start: 05/17/23 16:19 Freq: Status: Active Protocol: Document 05/18/23 08:39 [facility] (Rec: 05/22/23 08:43 [facility] [id number]) OP-PT Balance Assessment Sitting Balance Static Sitting Balance Ability Normal Dynamic Sitting Balance Ability Normal Standing Balance Static Standing Balance Ability Fair Dynamic Standing Balance Ability Fair Balance Tests Single Limb Standing Single Limb- Right unable Single Limb- Left 2 Tripathi Fall Scale Copyright Permission PT-OP-G Mobility & Gait Start: 05/17/23 16:19 Freq: Status: Active Protocol: Document 05/18/23 08:39 [facility] (Rec: 05/22/23 08:43 [facility] [id number]) OP Mobility Evaluation Transfers Sit to Stand indep with dec wb R LE OP Gait Assessment Gait Gait Assistance Required: Independent Distance (Feet) 60 Able to Maintain Weight Bearing Status Yes During Gait Assistive Devices Assistive Device Front Wheeled Walker Orthotic/Prosthetic Devices or Brace: No Gait Deviations General Gait Pattern Antalgic Factors Limiting Gait Function Factors Limiting Gait Function Decreased Activity Tolerance, Decreased Strength,Pain Stair Climbing Evaluation Evaluation Level of Assist On Stairs Standby Assistance Devices Stair Climbing Assistive Devices Left Railing,Right Railing Technique/Endurance Stair Climbing Direction Ascend and Descend Stair Climbing Technique Step to Step PT-OP-J Posture/Palpation/Skin Start: 05/17/23 16:19 Freq: Status: Active Protocol: Document 05/18/23 08:39 [facility] (Rec: 05/22/23 08:43 [facility] [id number]) Skin Assessment Incisional Assessment Incision Appearance/Comments GIUSEPPE incision haling well, no signs or symptoms of infection . PT-OP-K Range of Motion Start: 05/17/23 16:19 Freq: Status: Active Protocol: Document 05/18/23 08:39 [facility] (Rec: 05/22/23 08:43 [facility] [id number]) Hip Goniometric Range of Motion Hip Right Comments not assessed due to recent surgery, functional motion available for transfers, bed mobility, and gait Left Hip ROM WFL Yes PT-OP-M Strength Start: 05/17/23 16:19 Freq: Status: Active Protocol: Document 05/18/23 08:39 [facility] (Rec: 05/22/23 08:43 [facility] [id number]) Hip Strength Hip Manual Muscle Testing Right Comments not assessed due to recent surgery Knee Strength Knee Manual Muscle Testing Right Comments no MMT due to recent GIUSEPPE right Left Flexion (S2) 5 Normal Extension (L3) 5 Normal Ankle/Foot Strength Ankle and Foot Manual Muscle Testing kianna Dorsiflexion (L4) 5 Normal Plantarflexion (S1) 5 Normal PT-OP-Q Treatments Start: 05/17/23 16:19 Freq: Status: Active Protocol: Document 08/21/23 09:02 [facility] (Rec: 08/21/23 09:43 [facility] [id number]) Cardio Equipment Recumbent Stepper (Sci-Fit) Duration (Minutes) 6 Resistance 2 Seat Position 10 Other cues for self post glide of head of femur Therapeutic Exercises Sitting Exercises giovanni hip ER/IR Sitting Exercise Name review for HEP Equipment Used table leg to push agains Reps/Minutes 5 Standing Exercises resisted walking Standing Exercise Name fwd/bck, side Resistance L1 TB Reps/Minutes 10 ft ea direction hip flexor stretch Reps/Minutes 2x30 chair squats Reps/Minutes 10x Comments cues for hip hinge, equal weight-bearing. PT-OP-R Modalities Start: 05/17/23 16:19 Freq: Status: Active Protocol: Document 08/21/23 09:02 [facility] (Rec: 08/21/23 09:44 [facility] [id number]) Hot Pack/Cold Pack Treatment Hot Pack Location lateral right hip Patient Position Sidelying Patient Tolerance Good PT-OP-T Assessment and Plan Start: 05/17/23 16:19 Freq: Status: Active Protocol: Document 08/21/23 09:02 [facility] (Rec: 08/21/23 09:43 [facility] [id number]) Physical Therapy Assessment Goals Four Impairment unable to perform a full squat Short Term Goal (STG) Patient able to perform squat to 90 degrees and return to stand 10x without use of UEs STG Duration 08/31/23 Group Home Goal (LTG) Patient able to perform full squat and return to stand with min use of UEs LTG Duration 09/29/23 Two Impairment pain right hip Impairment pain as high as 7/10 Short Term Goal (STG) Decrease pain to no greater than 4/10 with all usual activities 06/19/23: goal met STG Duration goal met Group Home Goal (LTG) Decrease pain to no greater than 2/10 with all usual activities LTG Duration 09/29/23 Three Impairment activity tolerance Impairment LEFS 26% Short Term Goal (STG) Improve LEFS score to at least 40% as measure of improved activity tolerance and function in the home and community 06/19/23: 42% goal met STG Duration goal met Group Home Goal (LTG) Improve LEFS score to at least 60% as measure of improved activity tolerance and function in the home and community 07/31/23: improved to 48% LTG Duration 09/29/23 One Impairment gait dysfunction Impairment uses 4WW for gait Short Term Goal (STG) Patient able to ambulate on level surfaces and stairs using a SPC without limp or increase in pain 06/19/23: mostly met 07/31/23: goal met STG Duration goal met Group Home Goal (LTG) able to ambulate without assistive device without limp on level and alternating feet on stairs with min to no lateral sway LTG Duration 09/29/23 Assessment Summary Assessment Improved BP today, getting stabilize on medication. Needs verbal and visual cues for gait correction. Physical Therapy Plan Frequency and Duration Frequency of Treatment 2x/Week Duration of treatment (weeks) 8 Plan of Care Start Date 07/31/23 Plan of Care End Date 09/29/23 Therapeutic Interventions Therapeutic Interventions Balance Training,Gait Training ,Home Exercise Program,Manual Therapy,Patient/Caregiver Education,Self-Care/Home Management,Soft Tissue Mobilization,Taping, Therapeutic Activities, Therapeutic Exercises Modalities Cold Pack/Ice Massage,Electric Stimulation,Hot Packs Next Visit Focus/Plan Next Note Type Treatment Note Next Visit Plan Continue GIUSEPPE rehab with emphasis on strengtheing and improved functional mobility and gait.
--- NOTE | 2023-08-28 09:59 | PT.OTN ---
Current Diagnoses Unilateral primary osteoarthritis, right hip (08/28/23) Difficulty in walking, not elsewhere classified (08/28/23) Weakness (08/28/23) Presence of right artificial hip joint (08/28/23) Physical Therapy Treatment Note PT-OP-A Visit Information Start: 05/17/23 16:19 Freq: Status: Active Protocol: Document 08/28/23 09:01 SAK (Rec: 08/28/23 09:58 [facility] [id number]) Out-Patient Physical Therapy Visit Information Visit Information Visit Type Treatment Note Visit Start Time 09:00 Visit Stop Time 09:54 Visit Number 12 Evaluation Information Evaluation Date 05/18/23 Precautions Precautions posterior GIUSEPPE precautions HTN PT-OP-B Current Condition Start: 05/17/23 16:19 Freq: Status: Active Protocol: Document 08/28/23 09:01 SAK (Rec: 08/28/23 09:58 [facility] [id number]) Current Condition History of Current Condition Onset Date 05/02/23 Current Complaints R hip pain, difficulty with gait, weakness. History of Current Condition R posterior approach GIUSEPPE May 02. Spent night in hospital due to nausea, vomiting. Has weaned off Oxycodone and Vistaril. Took Ibuprofen this am. Can get in and out of bed on her own. Wasn't sent home with HEP. Trying to work on her walking. Had 2 week pst-op with andre ALEX to start PT . Prior Treatments and Tests 2 week follow-up, no issues. PT-OP-C Subjective Start: 05/17/23 16:19 Freq: Status: Active Protocol: Document 08/28/23 09:01 SAK (Rec: 08/28/23 09:58 [facility] [id number]) OP-PT Subjective Patient Comments Patient Comments Had to cancel last appt due to not feeling well, was in ER on Monday with very high BP. Medication changed to Metroprolol and Lasix, Carvedililol taken away. Had a rash, some concern over medication allergy. PT-OP-D Balance Start: 05/17/23 16:19 Freq: Status: Active Protocol: Document 05/18/23 08:39 SAK (Rec: 05/22/23 08:43 [facility] [id number]) OP-PT Balance Assessment Sitting Balance Static Sitting Balance Ability Normal Dynamic Sitting Balance Ability Normal Standing Balance Static Standing Balance Ability Fair Dynamic Standing Balance Ability Fair Balance Tests Single Limb Standing Single Limb- Right unable Single Limb- Left 2 Tripathi Fall Scale Copyright Permission PT-OP-G Mobility & Gait Start: 05/17/23 16:19 Freq: Status: Active Protocol: Document 05/18/23 08:39 [facility] (Rec: 05/22/23 08:43 [facility] [id number]) OP Mobility Evaluation Transfers Sit to Stand indep with dec wb R LE OP Gait Assessment Gait Gait Assistance Required: Independent Distance (Feet) 60 Able to Maintain Weight Bearing Status Yes During Gait Assistive Devices Assistive Device Front Wheeled Walker Orthotic/Prosthetic Devices or Brace: No Gait Deviations General Gait Pattern Antalgic Factors Limiting Gait Function Factors Limiting Gait Function Decreased Activity Tolerance, Decreased Strength,Pain Stair Climbing Evaluation Evaluation Level of Assist On Stairs Standby Assistance Devices Stair Climbing Assistive Devices Left Railing,Right Railing Technique/Endurance Stair Climbing Direction Ascend and Descend Stair Climbing Technique Step to Step PT-OP-J Posture/Palpation/Skin Start: 05/17/23 16:19 Freq: Status: Active Protocol: Document 05/18/23 08:39 [facility] (Rec: 05/22/23 08:43 [facility] [id number]) Skin Assessment Incisional Assessment Incision Appearance/Comments GIUSEPPE incision haling well, no signs or symptoms of infection . PT-OP-K Range of Motion Start: 05/17/23 16:19 Freq: Status: Active Protocol: Document 05/18/23 08:39 [facility] (Rec: 05/22/23 08:43 [facility] [id number]) Hip Goniometric Range of Motion Hip Right Comments not assessed due to recent surgery, functional motion available for transfers, bed mobility, and gait Left Hip ROM WFL Yes PT-OP-M Strength Start: 05/17/23 16:19 Freq: Status: Active Protocol: Document 05/18/23 08:39 [facility] (Rec: 05/22/23 08:43 [facility] [id number]) Hip Strength Hip Manual Muscle Testing Right Comments not assessed due to recent surgery Knee Strength Knee Manual Muscle Testing Right Comments no MMT due to recent GIUSEPPE right Left Flexion (S2) 5 Normal Extension (L3) 5 Normal Ankle/Foot Strength Ankle and Foot Manual Muscle Testing kianna Dorsiflexion (L4) 5 Normal Plantarflexion (S1) 5 Normal PT-OP-Q Treatments Start: 05/17/23 16:19 Freq: Status: Active Protocol: Document 08/28/23 09:01 [facility] (Rec: 08/28/23 09:58 [facility] [id number]) Cardio Equipment Recumbent Stepper (Sci-Fit) Duration (Minutes) 6 Resistance 1 Seat Position 10 Other cues for self post glide of head of femur PT-OP-R Modalities Start: 05/17/23 16:19 Freq: Status: Active Protocol: Document 08/21/23 09:02 [facility] (Rec: 08/21/23 09:44 [facility] [id number]) Hot Pack/Cold Pack Treatment Hot Pack Location lateral right hip Patient Position Sidelying Patient Tolerance Good PT-OP-T Assessment and Plan Start: 05/17/23 16:19 Freq: Status: Active Protocol: Document 08/28/23 09:01 [facility] (Rec: 08/28/23 09:58 [facility] [id number]) Physical Therapy Assessment Goals Four Impairment unable to perform a full squat Short Term Goal (STG) Patient able to perform squat to 90 degrees and return to stand 10x without use of UEs STG Duration 08/31/23 Custodial Goal (LTG) Patient able to perform full squat and return to stand with min use of UEs LTG Duration 09/29/23 Two Impairment pain right hip Impairment pain as high as 7/10 Short Term Goal (STG) Decrease pain to no greater than 4/10 with all usual activities 06/19/23: goal met STG Duration goal met Applications Consultant Goal (LTG) Decrease pain to no greater than 2/10 with all usual activities LTG Duration 09/29/23 Three Impairment activity tolerance Impairment LEFS 26% Short Term Goal (STG) Improve LEFS score to at least 40% as measure of improved activity tolerance and function in the home and community 06/19/23: 42% goal met STG Duration goal met Custodial Goal (LTG) Improve LEFS score to at least 60% as measure of improved activity tolerance and function in the home and community 07/31/23: improved to 48% LTG Duration 09/29/23 One Impairment gait dysfunction Impairment uses 4WW for gait Short Term Goal (STG) Patient able to ambulate on level surfaces and stairs using a SPC without limp or increase in pain 06/19/23: mostly met 07/31/23: goal met STG Duration goal met Custodial Goal (LTG) able to ambulate without assistive device without limp on level and alternating feet on stairs with min to no lateral sway LTG Duration 09/29/23 Assessment Summary Assessment BP rest: 182/85, after 2 min rest 157/68 pulse 83, Treatment limited by BP issues . Slow SciFit with no resistance x 8 min. BP after: 178/69, pulse 88, 2 min later 161/73 pulse 85 Physical Therapy Plan Frequency and Duration Frequency of Treatment 2x/Week Duration of treatment (weeks) 8 Plan of Care Start Date 07/31/23 Plan of Care End Date 09/29/23 Therapeutic Interventions Therapeutic Interventions Balance Training,Gait Training ,Home Exercise Program,Manual Therapy,Patient/Caregiver Education,Self-Care/Home Management,Soft Tissue Mobilization,Taping, Therapeutic Activities, Therapeutic Exercises Modalities Cold Pack/Ice Massage,Electric Stimulation,Hot Packs Next Visit Focus/Plan Next Note Type Treatment Note Next Visit Plan Continue GIUSEPPE rehab with emphasis on strengtheing and improved functional mobility and gait.
--- NOTE | 2023-08-31 09:43 | PT.OTN ---
Current Diagnoses Unilateral primary osteoarthritis, right hip (08/31/23) Difficulty in walking, not elsewhere classified (08/31/23) Weakness (08/31/23) Presence of right artificial hip joint (08/31/23) Physical Therapy Treatment Note PT-OP-A Visit Information Start: 05/17/23 16:19 Freq: Status: Active Protocol: Document 08/31/23 09:03 SAK (Rec: 08/31/23 09:43 [facility] [id number]) Out-Patient Physical Therapy Visit Information Visit Information Visit Type Treatment Note Visit Start Time 09:00 Visit Stop Time 09:54 Visit Number 13 Evaluation Information Evaluation Date 05/18/23 Precautions Precautions posterior GIUSEPPE precautions HTN PT-OP-B Current Condition Start: 05/17/23 16:19 Freq: Status: Active Protocol: Document 08/31/23 09:03 SAK (Rec: 08/31/23 09:43 SAK [id number]) Current Condition History of Current Condition Onset Date 05/02/23 Current Complaints R hip pain, difficulty with gait, weakness. History of Current Condition R posterior approach GIUSEPPE May 02. Spent night in hospital due to nausea, vomiting. Has weaned off Oxycodone and Vistaril. Took Ibuprofen this am. Can get in and out of bed on her own. Wasn't sent home with HEP. Trying to work on her walking. Had 2 week pst-op with PA, ok to start PT . Prior Treatments and Tests 2 week follow-up, no issues. PT-OP-C Subjective Start: 05/17/23 16:19 Freq: Status: Active Protocol: Document 08/31/23 09:03 SAK (Rec: 08/31/23 09:43 [facility] [id number]) OP-PT Subjective Patient Comments Patient Comments Sees Dr. Burgos today for follow-up. BP remains an issue, has been referred to nephrology, difficulty getting an appointment. Feels hip is improving. PT-OP-D Balance Start: 05/17/23 16:19 Freq: Status: Active Protocol: Document 05/18/23 08:39 SAK (Rec: 05/22/23 08:43 SAK [id number]) OP-PT Balance Assessment Sitting Balance Static Sitting Balance Ability Normal Dynamic Sitting Balance Ability Normal Standing Balance Static Standing Balance Ability Fair Dynamic Standing Balance Ability Fair Balance Tests Single Limb Standing Single Limb- Right unable Single Limb- Left 2 Tripathi Fall Scale Copyright Permission PT-OP-G Mobility & Gait Start: 05/17/23 16:19 Freq: Status: Active Protocol: Document 05/18/23 08:39 [facility] (Rec: 05/22/23 08:43 [facility] [id number]) OP Mobility Evaluation Transfers Sit to Stand indep with dec wb R LE OP Gait Assessment Gait Gait Assistance Required: Independent Distance (Feet) 60 Able to Maintain Weight Bearing Status Yes During Gait Assistive Devices Assistive Device Front Wheeled Walker Orthotic/Prosthetic Devices or Brace: No Gait Deviations General Gait Pattern Antalgic Factors Limiting Gait Function Factors Limiting Gait Function Decreased Activity Tolerance, Decreased Strength,Pain Stair Climbing Evaluation Evaluation Level of Assist On Stairs Standby Assistance Devices Stair Climbing Assistive Devices Left Railing,Right Railing Technique/Endurance Stair Climbing Direction Ascend and Descend Stair Climbing Technique Step to Step PT-OP-J Posture/Palpation/Skin Start: 05/17/23 16:19 Freq: Status: Active Protocol: Document 05/18/23 08:39 [facility] (Rec: 05/22/23 08:43 [facility] [id number]) Skin Assessment Incisional Assessment Incision Appearance/Comments GIUSEPPE incision haling well, no signs or symptoms of infection . PT-OP-K Range of Motion Start: 05/17/23 16:19 Freq: Status: Active Protocol: Document 05/18/23 08:39 [facility] (Rec: 05/22/23 08:43 [facility] [id number]) Hip Goniometric Range of Motion Hip Right Comments not assessed due to recent surgery, functional motion available for transfers, bed mobility, and gait Left Hip ROM WFL Yes PT-OP-M Strength Start: 05/17/23 16:19 Freq: Status: Active Protocol: Document 05/18/23 08:39 [facility] (Rec: 05/22/23 08:43 [facility] [id number]) Hip Strength Hip Manual Muscle Testing Right Comments not assessed due to recent surgery Knee Strength Knee Manual Muscle Testing Right Comments no MMT due to recent GIUSEPPE right Left Flexion (S2) 5 Normal Extension (L3) 5 Normal Ankle/Foot Strength Ankle and Foot Manual Muscle Testing kianna Dorsiflexion (L4) 5 Normal Plantarflexion (S1) 5 Normal PT-OP-Q Treatments Start: 05/17/23 16:19 Freq: Status: Active Protocol: Document 08/31/23 09:03 [facility] (Rec: 08/31/23 09:43 [facility] [id number]) Cardio Equipment Recumbent Stepper (Sci-Fit) Duration (Minutes) 8 Resistance 1 Seat Position 10 Other cues for self post glide of head of femur Gait Training Gait Activity no device Surface firm Distance/Duration 10 ft 6 Comments mirror for visual feedback, VC for inc wt shift and stance time right, gluteal activation , dec lateral sway PT-OP-R Modalities Start: 05/17/23 16:19 Freq: Status: Active Protocol: Document 08/21/23 09:02 [facility] (Rec: 08/21/23 09:44 [facility] [id number]) Hot Pack/Cold Pack Treatment Hot Pack Location lateral right hip Patient Position Sidelying Patient Tolerance Good PT-OP-T Assessment and Plan Start: 05/17/23 16:19 Freq: Status: Active Protocol: Document 08/31/23 09:03 [facility] (Rec: 08/31/23 09:43 [facility] [id number]) Physical Therapy Assessment Goals Four Impairment unable to perform a full squat Short Term Goal (STG) Patient able to perform squat to 90 degrees and return to stand 10x without use of UEs STG Duration 08/31/23 Director Ehs Goal (LTG) Patient able to perform full squat and return to stand with min use of UEs LTG Duration 09/29/23 Two Impairment pain right hip Impairment pain as high as 7/10 Short Term Goal (STG) Decrease pain to no greater than 4/10 with all usual activities 06/19/23: goal met STG Duration goal met Penitentiary Goal (LTG) Decrease pain to no greater than 2/10 with all usual activities LTG Duration 09/29/23 Three Impairment activity tolerance Impairment LEFS 26% Short Term Goal (STG) Improve LEFS score to at least 40% as measure of improved activity tolerance and function in the home and community 06/19/23: 42% goal met STG Duration goal met Director Ehs Goal (LTG) Improve LEFS score to at least 60% as measure of improved activity tolerance and function in the home and community 07/31/23: improved to 48% LTG Duration 09/29/23 One Impairment gait dysfunction Impairment uses 4WW for gait Short Term Goal (STG) Patient able to ambulate on level surfaces and stairs using a SPC without limp or increase in pain 11/27/23: mostly met 07/31/23: goal met STG Duration goal met Penitentiary Goal (LTG) able to ambulate without assistive device without limp on level and alternating feet on stairs with min to no lateral sway LTG Duration 09/29/23 Assessment Summary Assessment BP rest: 174/73 BP pulse 77 2 min later 160/69, pulse 76 BP after SciFIt x 8 min: Patient gait improves with visual feedback of mirror. Low compliance to HEP recently with BP issues. Physical Therapy Plan Frequency and Duration Frequency of Treatment 2x/Week Duration of treatment (weeks) 8 Plan of Care Start Date 07/31/23 Plan of Care End Date 09/29/23 Therapeutic Interventions Therapeutic Interventions Balance Training,Gait Training ,Home Exercise Program,Manual Therapy,Patient/Caregiver Education,Self-Care/Home Management,Soft Tissue Mobilization,Taping, Therapeutic Activities, Therapeutic Exercises Modalities Cold Pack/Ice Massage,Electric Stimulation,Hot Packs Next Visit Focus/Plan Next Note Type Treatment Note Next Visit Plan Continue GIUSEPPE rehab with emphasis on strengtheing and improved functional mobility and gait pending any further recommendations from Dr. Burgos after follow-up today.
--- NOTE | 2023-08-31 09:44 | PT.OTN ---
Current Diagnoses Unilateral primary osteoarthritis, right hip (08/31/23) Difficulty in walking, not elsewhere classified (08/31/23) Weakness (08/31/23) Presence of right artificial hip joint (08/31/23) Physical Therapy Treatment Note PT-OP-A Visit Information Start: 05/17/23 16:19 Freq: Status: Active Protocol: Document 08/31/23 09:03 SAK (Rec: 08/31/23 09:43 [facility] [id number]) Out-Patient Physical Therapy Visit Information Visit Information Visit Type Treatment Note Visit Start Time 09:00 Visit Stop Time 09:54 Visit Number 13 Evaluation Information Evaluation Date 05/18/23 Precautions Precautions posterior GIUSEPPE precautions HTN PT-OP-B Current Condition Start: 05/17/23 16:19 Freq: Status: Active Protocol: Document 08/31/23 09:03 SAK (Rec: 08/31/23 09:43 SAK [id number]) Current Condition History of Current Condition Onset Date 05/02/23 Current Complaints R hip pain, difficulty with gait, weakness. History of Current Condition R posterior approach GIUSEPPE May 02. Spent night in hospital due to nausea, vomiting. Has weaned off Oxycodone and Vistaril. Took Ibuprofen this am. Can get in and out of bed on her own. Wasn't sent home with HEP. Trying to work on her walking. Had 2 week pst-op with PA, ok to start PT . Prior Treatments and Tests 2 week follow-up, no issues. PT-OP-C Subjective Start: 05/17/23 16:19 Freq: Status: Active Protocol: Document 08/31/23 09:03 SAK (Rec: 08/31/23 09:43 [facility] [id number]) OP-PT Subjective Patient Comments Patient Comments Sees Dr. Burgos today for follow-up. BP remains an issue, has been referred to nephrology, difficulty getting an appointment. Feels hip is improving. PT-OP-D Balance Start: 05/17/23 16:19 Freq: Status: Active Protocol: Document 05/18/23 08:39 SAK (Rec: 05/22/23 08:43 SAK [id number]) OP-PT Balance Assessment Sitting Balance Static Sitting Balance Ability Normal Dynamic Sitting Balance Ability Normal Standing Balance Static Standing Balance Ability Fair Dynamic Standing Balance Ability Fair Balance Tests Single Limb Standing Single Limb- Right unable Single Limb- Left 2 Tripathi Fall Scale Copyright Permission PT-OP-G Mobility & Gait Start: 05/17/23 16:19 Freq: Status: Active Protocol: Document 05/18/23 08:39 [facility] (Rec: 05/22/23 08:43 [facility] [id number]) OP Mobility Evaluation Transfers Sit to Stand indep with dec wb R LE OP Gait Assessment Gait Gait Assistance Required: Independent Distance (Feet) 60 Able to Maintain Weight Bearing Status Yes During Gait Assistive Devices Assistive Device Front Wheeled Walker Orthotic/Prosthetic Devices or Brace: No Gait Deviations General Gait Pattern Antalgic Factors Limiting Gait Function Factors Limiting Gait Function Decreased Activity Tolerance, Decreased Strength,Pain Stair Climbing Evaluation Evaluation Level of Assist On Stairs Standby Assistance Devices Stair Climbing Assistive Devices Left Railing,Right Railing Technique/Endurance Stair Climbing Direction Ascend and Descend Stair Climbing Technique Step to Step PT-OP-J Posture/Palpation/Skin Start: 05/17/23 16:19 Freq: Status: Active Protocol: Document 05/18/23 08:39 [facility] (Rec: 05/22/23 08:43 [facility] [id number]) Skin Assessment Incisional Assessment Incision Appearance/Comments GIUSEPPE incision haling well, no signs or symptoms of infection . PT-OP-K Range of Motion Start: 05/17/23 16:19 Freq: Status: Active Protocol: Document 05/18/23 08:39 [facility] (Rec: 05/22/23 08:43 [facility] [id number]) Hip Goniometric Range of Motion Hip Right Comments not assessed due to recent surgery, functional motion available for transfers, bed mobility, and gait Left Hip ROM WFL Yes PT-OP-M Strength Start: 05/17/23 16:19 Freq: Status: Active Protocol: Document 05/18/23 08:39 [facility] (Rec: 05/22/23 08:43 [facility] [id number]) Hip Strength Hip Manual Muscle Testing Right Comments not assessed due to recent surgery Knee Strength Knee Manual Muscle Testing Right Comments no MMT due to recent GIUSEPPE right Left Flexion (S2) 5 Normal Extension (L3) 5 Normal Ankle/Foot Strength Ankle and Foot Manual Muscle Testing kianna Dorsiflexion (L4) 5 Normal Plantarflexion (S1) 5 Normal PT-OP-Q Treatments Start: 05/17/23 16:19 Freq: Status: Active Protocol: Document 08/31/23 09:03 [facility] (Rec: 08/31/23 09:43 [facility] [id number]) Cardio Equipment Recumbent Stepper (Sci-Fit) Duration (Minutes) 8 Resistance 1 Seat Position 10 Other cues for self post glide of head of femur Gait Training Gait Activity no device Surface firm Distance/Duration 10 ft 6 Comments mirror for visual feedback, VC for inc wt shift and stance time right, gluteal activation , dec lateral sway PT-OP-R Modalities Start: 05/17/23 16:19 Freq: Status: Active Protocol: Document 08/31/23 09:03 [facility] (Rec: 08/31/23 09:44 [facility] [id number]) Hot Pack/Cold Pack Treatment Hot Pack Location lateral right hip Patient Position Sidelying Patient Tolerance Good PT-OP-T Assessment and Plan Start: 05/17/23 16:19 Freq: Status: Active Protocol: Document 08/31/23 09:03 [facility] (Rec: 08/31/23 09:43 [facility] [id number]) Physical Therapy Assessment Goals Four Impairment unable to perform a full squat Short Term Goal (STG) Patient able to perform squat to 90 degrees and return to stand 10x without use of UEs STG Duration 08/31/23 Composite Layup Worker Goal (LTG) Patient able to perform full squat and return to stand with min use of UEs LTG Duration 09/29/23 Two Impairment pain right hip Impairment pain as high as 7/10 Short Term Goal (STG) Decrease pain to no greater than 4/10 with all usual activities 06/19/23: goal met STG Duration goal met Snf Goal (LTG) Decrease pain to no greater than 2/10 with all usual activities LTG Duration 09/29/23 Three Impairment activity tolerance Impairment LEFS 26% Short Term Goal (STG) Improve LEFS score to at least 40% as measure of improved activity tolerance and function in the home and community 06/19/23: 42% goal met STG Duration goal met Composite Layup Worker Goal (LTG) Improve LEFS score to at least 60% as measure of improved activity tolerance and function in the home and community 07/31/23: improved to 48% LTG Duration 09/29/23 One Impairment gait dysfunction Impairment uses 4WW for gait Short Term Goal (STG) Patient able to ambulate on level surfaces and stairs using a SPC without limp or increase in pain 11/27/23: mostly met 07/31/23: goal met STG Duration goal met Snf Goal (LTG) able to ambulate without assistive device without limp on level and alternating feet on stairs with min to no lateral sway LTG Duration 09/29/23 Assessment Summary Assessment BP rest: 174/73 BP pulse 77 2 min later 160/69, pulse 76 BP after SciFIt x 8 min: Patient gait improves with visual feedback of mirror. Low compliance to HEP recently with BP issues. Physical Therapy Plan Frequency and Duration Frequency of Treatment 2x/Week Duration of treatment (weeks) 8 Plan of Care Start Date 07/31/23 Plan of Care End Date 09/29/23 Therapeutic Interventions Therapeutic Interventions Balance Training,Gait Training ,Home Exercise Program,Manual Therapy,Patient/Caregiver Education,Self-Care/Home Management,Soft Tissue Mobilization,Taping, Therapeutic Activities, Therapeutic Exercises Modalities Cold Pack/Ice Massage,Electric Stimulation,Hot Packs Next Visit Focus/Plan Next Note Type Treatment Note Next Visit Plan Continue GIUSEPPE rehab with emphasis on strengtheing and improved functional mobility and gait pending any further recommendations from Dr. Burgos after follow-up today.
--- NOTE | 2023-09-04 09:45 | PT.OTN ---
Current Diagnoses Unilateral primary osteoarthritis, right hip (09/04/23) Difficulty in walking, not elsewhere classified (09/04/23) Weakness (09/04/23) Presence of right artificial hip joint (09/04/23) Physical Therapy Treatment Note PT-OP-A Visit Information Start: 05/17/23 16:19 Freq: Status: Active Protocol: Document 09/04/23 09:02 SAK (Rec: 09/04/23 09:45 [facility] [id number]) Out-Patient Physical Therapy Visit Information Visit Information Visit Type Treatment Note Visit Start Time 09:00 Visit Stop Time 09:40 Visit Number 14 Evaluation Information Evaluation Date 05/18/23 Precautions Precautions posterior GIUSEPPE precautions HTN PT-OP-B Current Condition Start: 05/17/23 16:19 Freq: Status: Active Protocol: Document 09/04/23 09:02 SAK (Rec: 09/04/23 09:45 [facility] [id number]) Current Condition History of Current Condition Onset Date 05/02/23 Current Complaints R hip pain, difficulty with gait, weakness. History of Current Condition R posterior approach GIUSEPPE May 02. Spent night in hospital due to nausea, vomiting. Has weaned off Oxycodone and Vistaril. Took Ibuprofen this am. Can get in and out of bed on her own. Wasn't sent home with HEP. Trying to work on her walking. Had 2 week pst-op with andre ALEX to start PT . Prior Treatments and Tests 2 week follow-up, no issues. PT-OP-C Subjective Start: 05/17/23 16:19 Freq: Status: Active Protocol: Document 09/04/23 09:02 SAK (Rec: 09/04/23 09:45 [facility] [id number]) OP-PT Subjective Patient Comments Patient Comments Patient reports BP over 200 last night, took Lasix. THinks maybe ate too much at [employer] yesterday, took extra Lasix. Will take extra again today. Sees meat team lead today, GP tomorrow. PT-OP-D Balance Start: 05/17/23 16:19 Freq: Status: Active Protocol: Document 05/18/23 08:39 SAK (Rec: 05/22/23 08:43 [facility] [id number]) OP-PT Balance Assessment Sitting Balance Static Sitting Balance Ability Normal Dynamic Sitting Balance Ability Normal Standing Balance Static Standing Balance Ability Fair Dynamic Standing Balance Ability Fair Balance Tests Single Limb Standing Single Limb- Right unable Single Limb- Left 2 Tripathi Fall Scale Copyright Permission PT-OP-G Mobility & Gait Start: 05/17/23 16:19 Freq: Status: Active Protocol: Document 05/18/23 08:39 [facility] (Rec: 05/22/23 08:43 [facility] [id number]) OP Mobility Evaluation Transfers Sit to Stand indep with dec wb R LE OP Gait Assessment Gait Gait Assistance Required: Independent Distance (Feet) 60 Able to Maintain Weight Bearing Status Yes During Gait Assistive Devices Assistive Device Front Wheeled Walker Orthotic/Prosthetic Devices or Brace: No Gait Deviations General Gait Pattern Antalgic Factors Limiting Gait Function Factors Limiting Gait Function Decreased Activity Tolerance, Decreased Strength,Pain Stair Climbing Evaluation Evaluation Level of Assist On Stairs Standby Assistance Devices Stair Climbing Assistive Devices Left Railing,Right Railing Technique/Endurance Stair Climbing Direction Ascend and Descend Stair Climbing Technique Step to Step PT-OP-J Posture/Palpation/Skin Start: 05/17/23 16:19 Freq: Status: Active Protocol: Document 05/18/23 08:39 [facility] (Rec: 05/22/23 08:43 [facility] [id number]) Skin Assessment Incisional Assessment Incision Appearance/Comments GIUSEPPE incision haling well, no signs or symptoms of infection . PT-OP-K Range of Motion Start: 05/17/23 16:19 Freq: Status: Active Protocol: Document 05/18/23 08:39 [facility] (Rec: 05/22/23 08:43 [facility] [id number]) Hip Goniometric Range of Motion Hip Right Comments not assessed due to recent surgery, functional motion available for transfers, bed mobility, and gait Left Hip ROM WFL Yes PT-OP-M Strength Start: 05/17/23 16:19 Freq: Status: Active Protocol: Document 05/18/23 08:39 [facility] (Rec: 05/22/23 08:43 [facility] [id number]) Hip Strength Hip Manual Muscle Testing Right Comments not assessed due to recent surgery Knee Strength Knee Manual Muscle Testing Right Comments no MMT due to recent GIUSEPPE right Left Flexion (S2) 5 Normal Extension (L3) 5 Normal Ankle/Foot Strength Ankle and Foot Manual Muscle Testing kianna Dorsiflexion (L4) 5 Normal Plantarflexion (S1) 5 Normal PT-OP-Q Treatments Start: 05/17/23 16:19 Freq: Status: Active Protocol: Document 09/04/23 09:02 [facility] (Rec: 09/04/23 09:45 [facility] [id number]) Gait Training Gait Activity no device Surface firm Distance/Duration 10 ft 6 Comments mirror for visual feedback, VC for inc wt shift and stance time right, gluteal activation , dec lateral sway Manual Therapy Treatment Soft Tissue Mobilization right hip Body Location lateral Mobilization Type Myofascial Release,Strumming Intensity/Depth Moderate Body Position left sidelying Comments scar massage with suction tools, lateral hip MFR PT-OP-R Modalities Start: 05/17/23 16:19 Freq: Status: Active Protocol: Document 08/31/23 09:03 [facility] (Rec: 08/31/23 09:44 [facility] [id number]) Hot Pack/Cold Pack Treatment Hot Pack Location lateral right hip Patient Position Sidelying Patient Tolerance Good PT-OP-T Assessment and Plan Start: 05/17/23 16:19 Freq: Status: Active Protocol: Document 09/04/23 09:02 [facility] (Rec: 09/04/23 09:45 [facility] [id number]) Physical Therapy Assessment Goals Four Impairment unable to perform a full squat Short Term Goal (STG) Patient able to perform squat to 90 degrees and return to stand 10x without use of UEs STG Duration 08/31/23 Long-Term Goal (LTG) Patient able to perform full squat and return to stand with min use of UEs LTG Duration 09/29/23 Two Impairment pain right hip Impairment pain as high as 7/10 Short Term Goal (STG) Decrease pain to no greater than 4/10 with all usual activities 06/19/23: goal met STG Duration goal met Lead Etl Developer Goal (LTG) Decrease pain to no greater than 2/10 with all usual activities LTG Duration 09/29/23 Three Impairment activity tolerance Impairment LEFS 26% Short Term Goal (STG) Improve LEFS score to at least 40% as measure of improved activity tolerance and function in the home and community 06/19/23: 42% goal met STG Duration goal met Lead Etl Developer Goal (LTG) Improve LEFS score to at least 60% as measure of improved activity tolerance and function in the home and community 07/31/23: improved to 48% LTG Duration 09/29/23 One Impairment gait dysfunction Impairment uses 4WW for gait Short Term Goal (STG) Patient able to ambulate on level surfaces and stairs using a SPC without limp or increase in pain 06/19/23: mostly met 07/31/23: goal met STG Duration goal met Lead Etl Developer Goal (LTG) able to ambulate without assistive device without limp on level and alternating feet on stairs with min to no lateral sway LTG Duration 09/29/23 Assessment Summary Assessment BP rest 186/79, 168/75 pulse 84 , after 2 min deep breathing. seeing meat team lead more time on manual due to PT high today. Improving soft tissue mobility scar and lateral hip Physical Therapy Plan Frequency and Duration Frequency of Treatment 2x/Week Duration of treatment (weeks) 8 Plan of Care Start Date 07/31/23 Plan of Care End Date 09/29/23 Therapeutic Interventions Therapeutic Interventions Balance Training,Gait Training ,Home Exercise Program,Manual Therapy,Patient/Caregiver Education,Self-Care/Home Management,Soft Tissue Mobilization,Taping, Therapeutic Activities, Therapeutic Exercises Modalities Cold Pack/Ice Massage,Electric Stimulation,Hot Packs Next Visit Focus/Plan Next Note Type Treatment Note Next Visit Plan Continue GIUSEPPE rehab with emphasis on strengtheing and improved functional mobility and gait. Continue to monitor BP
--- NOTE | 2023-09-07 16:33 | PT.OTN ---
Current Diagnoses Unilateral primary osteoarthritis, right hip (09/07/23) Difficulty in walking, not elsewhere classified (09/07/23) Weakness (09/07/23) Presence of right artificial hip joint (09/07/23) Physical Therapy Treatment Note PT-OP-A Visit Information Start: 05/17/23 16:19 Freq: Status: Active Protocol: Document 09/07/23 09:02 [facility] (Rec: 09/07/23 09:46 [facility] [id number]) Out-Patient Physical Therapy Visit Information Visit Information Visit Type Treatment Note Visit Start Time 09:00 Visit Stop Time 09:40 Visit Number 14 Evaluation Information Evaluation Date 05/18/23 Precautions Precautions posterior GIUSEPPE precautions HTN PT-OP-B Current Condition Start: 05/17/23 16:19 Freq: Status: Active Protocol: Document 09/07/23 09:02 [facility] (Rec: 09/07/23 09:46 [facility] [id number]) Current Condition History of Current Condition Onset Date 05/02/23 Current Complaints R hip pain, difficulty with gait, weakness. History of Current Condition R posterior approach GIUSEPPE May 02. Spent night in hospital due to nausea, vomiting. Has weaned off Oxycodone and Vistaril. Took Ibuprofen this am. Can get in and out of bed on her own. Wasn't sent home with HEP. Trying to work on her walking. Had 2 week pst-op with ABI, ok to start PT . Prior Treatments and Tests 2 week follow-up, no issues. PT-OP-C Subjective Start: 05/17/23 16:19 Freq: Status: Active Protocol: Document 09/07/23 09:02 [facility] (Rec: 09/07/23 09:46 [facility] [id number]) OP-PT Subjective Patient Comments Patient Comments Got Dexcom patch for blood sugar, then will do Libre3. Saw estate tax examiner; changed meds ; added Endor 2x/day, changed Hydrolazine to 100mg 4x/day, left Metroprolol. Expresses I can't believe how I've let myself go. PT-OP-D Balance Start: 05/17/23 16:19 Freq: Status: Active Protocol: Document 05/18/23 08:39 [facility] (Rec: 05/22/23 08:43 [facility] [id number]) OP-PT Balance Assessment Sitting Balance Static Sitting Balance Ability Normal Dynamic Sitting Balance Ability Normal Standing Balance Static Standing Balance Ability Fair Dynamic Standing Balance Ability Fair Balance Tests Single Limb Standing Single Limb- Right unable Single Limb- Left 2 Tripathi Fall Scale Copyright Permission PT-OP-G Mobility & Gait Start: 05/17/23 16:19 Freq: Status: Active Protocol: Document 05/18/23 08:39 [facility] (Rec: 05/22/23 08:43 [facility] [id number]) OP Mobility Evaluation Transfers Sit to Stand indep with dec wb R LE OP Gait Assessment Gait Gait Assistance Required: Independent Distance (Feet) 60 Able to Maintain Weight Bearing Status Yes During Gait Assistive Devices Assistive Device Front Wheeled Walker Orthotic/Prosthetic Devices or Brace: No Gait Deviations General Gait Pattern Antalgic Factors Limiting Gait Function Factors Limiting Gait Function Decreased Activity Tolerance, Decreased Strength,Pain Stair Climbing Evaluation Evaluation Level of Assist On Stairs Standby Assistance Devices Stair Climbing Assistive Devices Left Railing,Right Railing Technique/Endurance Stair Climbing Direction Ascend and Descend Stair Climbing Technique Step to Step PT-OP-J Posture/Palpation/Skin Start: 05/17/23 16:19 Freq: Status: Active Protocol: Document 05/18/23 08:39 [facility] (Rec: 05/22/23 08:43 [facility] [id number]) Skin Assessment Incisional Assessment Incision Appearance/Comments GIUSEPPE incision haling well, no signs or symptoms of infection . PT-OP-K Range of Motion Start: 05/17/23 16:19 Freq: Status: Active Protocol: Document 05/18/23 08:39 [facility] (Rec: 05/22/23 08:43 [facility] [id number]) Hip Goniometric Range of Motion Hip Right Comments not assessed due to recent surgery, functional motion available for transfers, bed mobility, and gait Left Hip ROM WFL Yes PT-OP-M Strength Start: 05/17/23 16:19 Freq: Status: Active Protocol: Document 05/18/23 08:39 [facility] (Rec: 05/22/23 08:43 [facility] [id number]) Hip Strength Hip Manual Muscle Testing Right Comments not assessed due to recent surgery Knee Strength Knee Manual Muscle Testing Right Comments no MMT due to recent GIUSEPPE right Left Flexion (S2) 5 Normal Extension (L3) 5 Normal Ankle/Foot Strength Ankle and Foot Manual Muscle Testing kianna Dorsiflexion (L4) 5 Normal Plantarflexion (S1) 5 Normal PT-OP-Q Treatments Start: 05/17/23 16:19 Freq: Status: Active Protocol: Document 09/07/23 09:02 [facility] (Rec: 09/07/23 09:46 [facility] [id number]) Cardio Equipment Recumbent Stepper (Sci-Fit) Duration (Minutes) 7 Resistance 1 Seat Position 10 Therapeutic Exercises Standing Exercises resisted walking Standing Exercise Name side Resistance L2 TB Reps/Minutes 10 ft ea direction chair squats Reps/Minutes 10x Comments cues for hip hinge, equal weight-bearing, gluteal activation Gait Training Gait Activity no device Surface firm Distance/Duration 10 ft 6 Comments mirror for visual feedback, VC for inc wt shift and stance time right, gluteal activation , dec lateral sway Manual Therapy Treatment Soft Tissue Mobilization right hip Body Location lateral Mobilization Type Myofascial Release,Strumming Intensity/Depth Moderate Body Position left sidelying Comments scar massage with suction tools, lateral hip MFR Self-Care/Home Management Treatment Education Other Education continue deep breathing education and emphasis throughout the day for relaxation, dec BP PT-OP-R Modalities Start: 05/17/23 16:19 Freq: Status: Active Protocol: Document 08/31/23 09:03 [facility] (Rec: 08/31/23 09:44 [facility] [id number]) Hot Pack/Cold Pack Treatment Hot Pack Location lateral right hip Patient Position Sidelying Patient Tolerance Good PT-OP-T Assessment and Plan Start: 05/17/23 16:19 Freq: Status: Active Protocol: Document 09/07/23 09:02 [facility] (Rec: 09/07/23 09:46 [facility] [id number]) Physical Therapy Assessment Goals Four Impairment unable to perform a full squat Short Term Goal (STG) Patient able to perform squat to 90 degrees and return to stand 10x without use of UEs STG Duration 08/31/23 Quarrying Specialist Goal (LTG) Patient able to perform full squat and return to stand with min use of UEs LTG Duration 09/29/23 Two Impairment pain right hip Impairment pain as high as 7/10 Short Term Goal (STG) Decrease pain to no greater than 4/10 with all usual activities 06/19/23: goal met STG Duration goal met Quarrying Specialist Goal (LTG) Decrease pain to no greater than 2/10 with all usual activities LTG Duration 09/29/23 Three Impairment activity tolerance Impairment LEFS 26% Short Term Goal (STG) Improve LEFS score to at least 40% as measure of improved activity tolerance and function in the home and community 06/19/23: 42% goal met STG Duration goal met Snf Goal (LTG) Improve LEFS score to at least 60% as measure of improved activity tolerance and function in the home and community 07/31/23: improved to 48% LTG Duration 09/29/23 One Impairment gait dysfunction Impairment uses 4WW for gait Short Term Goal (STG) Patient able to ambulate on level surfaces and stairs using a SPC without limp or increase in pain 06/19/23: mostly met 07/31/23: goal met STG Duration goal met Snf Goal (LTG) able to ambulate without assistive device without limp on level and alternating feet on stairs with min to no lateral sway LTG Duration 09/29/23 Assessment Summary Assessment BP 170/78, pulse 106 BP 159/80, pulse 105 after 2 min deep breathing relaxation techniques. Low exercise tolerance, patient anxious with health issues of her sister, multiple appoitnements . Physical Therapy Plan Frequency and Duration Frequency of Treatment 2x/Week Duration of treatment (weeks) 8 Plan of Care Start Date 07/31/23 Plan of Care End Date 09/29/23 Therapeutic Interventions Therapeutic Interventions Balance Training,Gait Training ,Home Exercise Program,Manual Therapy,Patient/Caregiver Education,Self-Care/Home Management,Soft Tissue Mobilization,Taping, Therapeutic Activities, Therapeutic Exercises Modalities Cold Pack/Ice Massage,Electric Stimulation,Hot Packs Next Visit Focus/Plan Next Note Type Treatment Note Next Visit Plan Continue GIUSEPPE rehab with emphasis on strengtheing and improved functional mobility and gait. Continue to monitor BP
--- NOTE | 2023-09-11 09:47 | PT.OTN ---
Current Diagnoses Unilateral primary osteoarthritis, right hip (09/11/23) Difficulty in walking, not elsewhere classified (09/11/23) Weakness (09/11/23) Presence of right artificial hip joint (09/11/23) Physical Therapy Treatment Note PT-OP-A Visit Information Start: 05/17/23 16:19 Freq: Status: Active Protocol: Document 09/11/23 09:02 [facility] (Rec: 09/11/23 09:46 [facility] [id number]) Out-Patient Physical Therapy Visit Information Visit Information Visit Type Treatment Note Visit Start Time 09:03 Visit Number 14 Evaluation Information Evaluation Date 05/18/23 Precautions Precautions posterior GIUSEPPE precautions HTN PT-OP-B Current Condition Start: 05/17/23 16:19 Freq: Status: Active Protocol: Document 09/11/23 09:02 [facility] (Rec: 09/11/23 09:46 [facility] [id number]) Current Condition History of Current Condition Onset Date 05/02/23 Current Complaints R hip pain, difficulty with gait, weakness. History of Current Condition R posterior approach GIUSEPPE May 02. Spent night in hospital due to nausea, vomiting. Has weaned off Oxycodone and Vistaril. Took Ibuprofen this am. Can get in and out of bed on her own. Wasn't sent home with HEP. Trying to work on her walking. Had 2 week pst-op with andre ALEX to start PT . Prior Treatments and Tests 2 week follow-up, no issues. PT-OP-C Subjective Start: 05/17/23 16:19 Freq: Status: Active Protocol: Document 09/11/23 09:02 [facility] (Rec: 09/11/23 09:46 [facility] [id number]) OP-PT Subjective Patient Comments Patient Comments Had echocardiogram this am. BP has been up and down as usual. Sees VACATION SALES ADVISOR this . PT-OP-D Balance Start: 05/17/23 16:19 Freq: Status: Active Protocol: Document 05/18/23 08:39 [facility] (Rec: 05/22/23 08:43 [facility] [id number]) OP-PT Balance Assessment Sitting Balance Static Sitting Balance Ability Normal Dynamic Sitting Balance Ability Normal Standing Balance Static Standing Balance Ability Fair Dynamic Standing Balance Ability Fair Balance Tests Single Limb Standing Single Limb- Right unable Single Limb- Left 2 Tripathi Fall Scale Copyright Permission PT-OP-G Mobility & Gait Start: 05/17/23 16:19 Freq: Status: Active Protocol: Document 05/18/23 08:39 [facility] (Rec: 05/22/23 08:43 [facility] [id number]) OP Mobility Evaluation Transfers Sit to Stand indep with dec wb R LE OP Gait Assessment Gait Gait Assistance Required: Independent Distance (Feet) 60 Able to Maintain Weight Bearing Status Yes During Gait Assistive Devices Assistive Device Front Wheeled Walker Orthotic/Prosthetic Devices or Brace: No Gait Deviations General Gait Pattern Antalgic Factors Limiting Gait Function Factors Limiting Gait Function Decreased Activity Tolerance, Decreased Strength,Pain Stair Climbing Evaluation Evaluation Level of Assist On Stairs Standby Assistance Devices Stair Climbing Assistive Devices Left Railing,Right Railing Technique/Endurance Stair Climbing Direction Ascend and Descend Stair Climbing Technique Step to Step PT-OP-J Posture/Palpation/Skin Start: 05/17/23 16:19 Freq: Status: Active Protocol: Document 05/18/23 08:39 [facility] (Rec: 05/22/23 08:43 [facility] [id number]) Skin Assessment Incisional Assessment Incision Appearance/Comments GIUSEPPE incision haling well, no signs or symptoms of infection . PT-OP-K Range of Motion Start: 05/17/23 16:19 Freq: Status: Active Protocol: Document 05/18/23 08:39 [facility] (Rec: 05/22/23 08:43 [facility] [id number]) Hip Goniometric Range of Motion Hip Right Comments not assessed due to recent surgery, functional motion available for transfers, bed mobility, and gait Left Hip ROM WFL Yes PT-OP-M Strength Start: 05/17/23 16:19 Freq: Status: Active Protocol: Document 05/18/23 08:39 [facility] (Rec: 05/22/23 08:43 [facility] [id number]) Hip Strength Hip Manual Muscle Testing Right Comments not assessed due to recent surgery Knee Strength Knee Manual Muscle Testing Right Comments no MMT due to recent GIUSEPPE right Left Flexion (S2) 5 Normal Extension (L3) 5 Normal Ankle/Foot Strength Ankle and Foot Manual Muscle Testing kianna Dorsiflexion (L4) 5 Normal Plantarflexion (S1) 5 Normal PT-OP-Q Treatments Start: 05/17/23 16:19 Freq: Status: Active Protocol: Document 09/11/23 09:02 [facility] (Rec: 09/11/23 09:46 [facility] [id number]) Therapeutic Exercises Standing Exercises SLS Equipment Used mirror Reps/Minutes 5x ea Comments cues for level hips, soft knees resisted walking Standing Exercise Name side, front/back Resistance L2 TB Reps/Minutes 10 ft ea direction chair squats Equipment Used mirror Reps/Minutes 10x2 Comments cues for hip hinge, equal weight-bearing, gluteal activation Gait Training Gait Activity stairs Level of Assistance SBA, kianna rails Surface 6 stairs Treatment Focus gluteal activation Comments 2x 6 stairs alternating min UE use, cues for gluteal activation Manual Therapy Treatment Soft Tissue Mobilization right hip Body Location lateral Mobilization Type Myofascial Release,Strumming Intensity/Depth Moderate Body Position left sidelying Comments scar massage with suction tools, lateral hip MFR Self-Care/Home Management Treatment Education Other Education continue deep breathing education and emphasis throughout the day for relaxation, dec BP PT-OP-R Modalities Start: 05/17/23 16:19 Freq: Status: Active Protocol: Document 09/11/23 09:03 [facility] (Rec: 09/11/23 09:47 [facility] [id number]) Hot Pack/Cold Pack Treatment Hot Pack Location lateral right hip Patient Position Sidelying Patient Tolerance Good PT-OP-T Assessment and Plan Start: 05/17/23 16:19 Freq: Status: Active Protocol: Document 09/11/23 09:02 [facility] (Rec: 09/11/23 09:46 [facility] [id number]) Physical Therapy Assessment Goals Four Impairment unable to perform a full squat Short Term Goal (STG) Patient able to perform squat to 90 degrees and return to stand 10x without use of UEs STG Duration 08/31/23 Glue Bone Crusher Goal (LTG) Patient able to perform full squat and return to stand with min use of UEs LTG Duration 09/29/23 Two Impairment pain right hip Impairment pain as high as 7/10 Short Term Goal (STG) Decrease pain to no greater than 4/10 with all usual activities 06/19/23: goal met STG Duration goal met Glue Bone Crusher Goal (LTG) Decrease pain to no greater than 2/10 with all usual activities LTG Duration 09/29/23 Three Impairment activity tolerance Impairment LEFS 26% Short Term Goal (STG) Improve LEFS score to at least 40% as measure of improved activity tolerance and function in the home and community 06/19/23: 42% goal met STG Duration goal met Care Home Goal (LTG) Improve LEFS score to at least 60% as measure of improved activity tolerance and function in the home and community 07/31/23: improved to 48% LTG Duration 09/29/23 One Impairment gait dysfunction Impairment uses 4WW for gait Short Term Goal (STG) Patient able to ambulate on level surfaces and stairs using a SPC without limp or increase in pain 06/19/23: mostly met 07/31/23: goal met STG Duration goal met Glue Bone Crusher Goal (LTG) able to ambulate without assistive device without limp on level and alternating feet on stairs with min to no lateral sway LTG Duration 09/29/23 Assessment Summary Assessment BP 189/84 pulse 75, 174/89, 181/87 pule 77. Physical Therapy Plan Frequency and Duration Frequency of Treatment 2x/Week Duration of treatment (weeks) 8 Plan of Care Start Date 07/31/23 Plan of Care End Date 09/29/23 Therapeutic Interventions Therapeutic Interventions Balance Training,Gait Training ,Home Exercise Program,Manual Therapy,Patient/Caregiver Education,Self-Care/Home Management,Soft Tissue Mobilization,Taping, Therapeutic Activities, Therapeutic Exercises Modalities Cold Pack/Ice Massage,Electric Stimulation,Hot Packs Next Visit Focus/Plan Next Note Type Treatment Note Next Visit Plan Continue to monitor BP, work on closed chain ex as tolerated.
--- NOTE | 2023-09-14 09:34 | PT.OTN ---
Current Diagnoses Unilateral primary osteoarthritis, right hip (09/14/23) Difficulty in walking, not elsewhere classified (09/14/23) Weakness (09/14/23) Presence of right artificial hip joint (09/14/23) Physical Therapy Treatment Note PT-OP-A Visit Information Start: 05/17/23 16:19 Freq: Status: Active Protocol: Document 09/14/23 09:03 [facility]AK (Rec: 09/14/23 09:33 [facility] [id number]) Out-Patient Physical Therapy Visit Information Visit Information Visit Type Treatment Note Visit Start Time 09:03 Visit Stop Time 10:00 Visit Number 15 Evaluation Information Evaluation Date 05/18/23 Precautions Precautions posterior GIUSEPPE precautions HTN PT-OP-B Current Condition Start: 05/17/23 16:19 Freq: Status: Active Protocol: Document 09/14/23 09:03 SAK (Rec: 09/14/23 09:33 [facility] [id number]) Current Condition History of Current Condition Onset Date 05/02/23 Current Complaints R hip pain, difficulty with gait, weakness. History of Current Condition R posterior approach GIUSEPPE May 02. Spent night in hospital due to nausea, vomiting. Has weaned off Oxycodone and Vistaril. Took Ibuprofen this am. Can get in and out of bed on her own. Wasn't sent home with HEP. Trying to work on her walking. Had 2 week pst-op with andre ALEX to start PT . Prior Treatments and Tests 2 week follow-up, no issues. PT-OP-C Subjective Start: 05/17/23 16:19 Freq: Status: Active Protocol: Document 09/14/23 09:03 SAK (Rec: 09/14/23 09:33 [facility] [id number]) OP-PT Subjective Patient Comments Patient Comments Saw Dr. Brown for follow-up; given a few exercises due to neck and interrelatinship with hip pain. Sees doctor for reveiw of echocardiogram this afternoon. PT-OP-D Balance Start: 05/17/23 16:19 Freq: Status: Active Protocol: Document 05/18/23 08:39 SAK (Rec: 05/22/23 08:43 [facility] [id number]) OP-PT Balance Assessment Sitting Balance Static Sitting Balance Ability Normal Dynamic Sitting Balance Ability Normal Standing Balance Static Standing Balance Ability Fair Dynamic Standing Balance Ability Fair Balance Tests Single Limb Standing Single Limb- Right unable Single Limb- Left 2 Tripathi Fall Scale Copyright Permission PT-OP-G Mobility & Gait Start: 05/17/23 16:19 Freq: Status: Active Protocol: Document 05/18/23 08:39 [facility] (Rec: 05/22/23 08:43 [facility] [id number]) OP Mobility Evaluation Transfers Sit to Stand indep with dec wb R LE OP Gait Assessment Gait Gait Assistance Required: Independent Distance (Feet) 60 Able to Maintain Weight Bearing Status Yes During Gait Assistive Devices Assistive Device Front Wheeled Walker Orthotic/Prosthetic Devices or Brace: No Gait Deviations General Gait Pattern Antalgic Factors Limiting Gait Function Factors Limiting Gait Function Decreased Activity Tolerance, Decreased Strength,Pain Stair Climbing Evaluation Evaluation Level of Assist On Stairs Standby Assistance Devices Stair Climbing Assistive Devices Left Railing,Right Railing Technique/Endurance Stair Climbing Direction Ascend and Descend Stair Climbing Technique Step to Step PT-OP-J Posture/Palpation/Skin Start: 05/17/23 16:19 Freq: Status: Active Protocol: Document 05/18/23 08:39 [facility] (Rec: 05/22/23 08:43 [facility] [id number]) Skin Assessment Incisional Assessment Incision Appearance/Comments GIUSEPPE incision haling well, no signs or symptoms of infection . PT-OP-K Range of Motion Start: 05/17/23 16:19 Freq: Status: Active Protocol: Document 05/18/23 08:39 [facility] (Rec: 05/22/23 08:43 [facility] [id number]) Hip Goniometric Range of Motion Hip Right Comments not assessed due to recent surgery, functional motion available for transfers, bed mobility, and gait Left Hip ROM WFL Yes PT-OP-M Strength Start: 05/17/23 16:19 Freq: Status: Active Protocol: Document 05/18/23 08:39 [facility] (Rec: 05/22/23 08:43 [facility] [id number]) Hip Strength Hip Manual Muscle Testing Right Comments not assessed due to recent surgery Knee Strength Knee Manual Muscle Testing Right Comments no MMT due to recent GIUSEPPE right Left Flexion (S2) 5 Normal Extension (L3) 5 Normal Ankle/Foot Strength Ankle and Foot Manual Muscle Testing kianna Dorsiflexion (L4) 5 Normal Plantarflexion (S1) 5 Normal PT-OP-Q Treatments Start: 05/17/23 16:19 Freq: Status: Active Protocol: Document 09/14/23 09:03 [facility] (Rec: 09/14/23 09:33 [facility] [id number]) Cardio Equipment Recumbent Stepper (Sci-Fit) Duration (Minutes) 7 Resistance 1 Seat Position 10 Gym Equipment Shuttle Recovery Unilateral Squats Resistance 37 left 37 right Reps/Time 10x Bilateral Squats Resistance 50 Reps/Time 10x Therapeutic Exercises Sidelying Exercises hip abduction Reps/Minutes 10x Comments cues for for leg straight up clamshell, reverse clamshell Reps/Minutes 10x Comments cues for small movement Standing Exercises SLS Equipment Used mirror Reps/Minutes 5x ea Comments cues for level hips, soft knees resisted walking Standing Exercise Name side, front/back Resistance L2 TB Reps/Minutes 10 ft ea direction Gait Training Gait Activity no device Surface firm Distance/Duration 10 ft 6 Comments mirror for visual feedback, VC for inc wt shift and stance time right, gluteal activation , dec lateral sway Manual Therapy Treatment Soft Tissue Mobilization right hip Body Location lateral Mobilization Type Myofascial Release,Strumming Intensity/Depth Moderate Body Position left sidelying Comments scar massage with suction tools, lateral hip MFR PT-OP-R Modalities Start: 05/17/23 16:19 Freq: Status: Active Protocol: Document 09/14/23 09:03 [facility] (Rec: 09/14/23 09:33 [facility] [id number]) Hot Pack/Cold Pack Treatment Hot Pack Location lateral right hip Patient Position Sidelying Patient Tolerance Good PT-OP-T Assessment and Plan Start: 05/17/23 16:19 Freq: Status: Active Protocol: Document 09/14/23 09:03 [facility] (Rec: 09/14/23 09:33 [facility] [id number]) Physical Therapy Assessment Goals Four Impairment unable to perform a full squat Short Term Goal (STG) Patient able to perform squat to 90 degrees and return to stand 10x without use of UEs 09/14/23: goal met STG Duration 08/31/23 Shelter Goal (LTG) Patient able to perform full squat and return to stand with min use of UEs LTG Duration 09/29/23 Two Impairment pain right hip Impairment pain as high as 7/10 Short Term Goal (STG) Decrease pain to no greater than 4/10 with all usual activities 06/19/23: goal met STG Duration goal met Shelter Goal (LTG) Decrease pain to no greater than 2/10 with all usual activities LTG Duration 09/29/23 Three Impairment activity tolerance Impairment LEFS 26% Short Term Goal (STG) Improve LEFS score to at least 40% as measure of improved activity tolerance and function in the home and community 06/19/23: 42% goal met STG Duration goal met Hatchery Helper Goal (LTG) Improve LEFS score to at least 60% as measure of improved activity tolerance and function in the home and community 07/31/23: improved to 48% LTG Duration 09/29/23 One Impairment gait dysfunction Impairment uses 4WW for gait Short Term Goal (STG) Patient able to ambulate on level surfaces and stairs using a SPC without limp or increase in pain 06/19/23: mostly met 07/31/23: goal met STG Duration goal met Shelter Goal (LTG) able to ambulate without assistive device without limp on level and alternating feet on stairs with min to no lateral sway LTG Duration 09/29/23 Assessment Summary Assessment BP 150/70 pulse 83, 142/73 pulse 84. REviewed s/l ex, patient hasn't been doing. Improved understanding after review and correction. BP dec today, more stable. REviewed SLS Physical Therapy Plan Frequency and Duration Frequency of Treatment 2x/Week Duration of treatment (weeks) 8 Plan of Care Start Date 07/31/23 Plan of Care End Date 09/29/23 Therapeutic Interventions Therapeutic Interventions Balance Training,Gait Training ,Home Exercise Program,Manual Therapy,Patient/Caregiver Education,Self-Care/Home Management,Soft Tissue Mobilization,Taping, Therapeutic Activities, Therapeutic Exercises Modalities Cold Pack/Ice Massage,Electric Stimulation,Hot Packs Next Visit Focus/Plan Next Note Type Treatment Note Next Visit Plan Continue to monitor BP, work on closed chain ex as tolerated, gait training to decrease compensatory movements.
--- NOTE | 2023-09-18 09:45 | PT.OTN ---
Current Diagnoses Unilateral primary osteoarthritis, right hip (09/18/23) Difficulty in walking, not elsewhere classified (09/18/23) Weakness (09/18/23) Presence of right artificial hip joint (09/18/23) Physical Therapy Treatment Note PT-OP-A Visit Information Start: 05/17/23 16:19 Freq: Status: Active Protocol: Document 09/18/23 09:05 [facility] (Rec: 09/18/23 09:45 [facility] [id number]) Out-Patient Physical Therapy Visit Information Visit Information Visit Type Treatment Note Visit Start Time 09:03 Visit Stop Time 10:00 Visit Number 16 Evaluation Information Evaluation Date 05/18/23 Precautions Precautions posterior GIUSEPPE precautions HTN PT-OP-B Current Condition Start: 05/17/23 16:19 Freq: Status: Active Protocol: Document 09/18/23 09:05 [facility] (Rec: 09/18/23 09:45 [facility] [id number]) Current Condition History of Current Condition Onset Date 05/02/23 Current Complaints R hip pain, difficulty with gait, weakness. History of Current Condition R posterior approach GIUSEPPE May 02. Spent night in hospital due to nausea, vomiting. Has weaned off Oxycodone and Vistaril. Took Ibuprofen this am. Can get in and out of bed on her own. Wasn't sent home with HEP. Trying to work on her walking. Had 2 week pst-op with andre ALEX to start PT . Prior Treatments and Tests 2 week follow-up, no issues. PT-OP-C Subjective Start: 05/17/23 16:19 Freq: Status: Active Protocol: Document 09/18/23 09:05 [facility] (Rec: 09/18/23 09:45 [facility] [id number]) OP-PT Subjective Patient Comments Patient Comments Took pills, but dildn't check BP over weekend. Not a lot of exercises over the weekend. PT-OP-D Balance Start: 05/17/23 16:19 Freq: Status: Active Protocol: Document 05/18/23 08:39 [facility] (Rec: 05/22/23 08:43 [facility] [id number]) OP-PT Balance Assessment Sitting Balance Static Sitting Balance Ability Normal Dynamic Sitting Balance Ability Normal Standing Balance Static Standing Balance Ability Fair Dynamic Standing Balance Ability Fair Balance Tests Single Limb Standing Single Limb- Right unable Single Limb- Left 2 Tripathi Fall Scale Copyright Permission PT-OP-G Mobility & Gait Start: 05/17/23 16:19 Freq: Status: Active Protocol: Document 05/18/23 08:39 [facility] (Rec: 05/22/23 08:43 [facility] [id number]) OP Mobility Evaluation Transfers Sit to Stand indep with dec wb R LE OP Gait Assessment Gait Gait Assistance Required: Independent Distance (Feet) 60 Able to Maintain Weight Bearing Status Yes During Gait Assistive Devices Assistive Device Front Wheeled Walker Orthotic/Prosthetic Devices or Brace: No Gait Deviations General Gait Pattern Antalgic Factors Limiting Gait Function Factors Limiting Gait Function Decreased Activity Tolerance, Decreased Strength,Pain Stair Climbing Evaluation Evaluation Level of Assist On Stairs Standby Assistance Devices Stair Climbing Assistive Devices Left Railing,Right Railing Technique/Endurance Stair Climbing Direction Ascend and Descend Stair Climbing Technique Step to Step PT-OP-J Posture/Palpation/Skin Start: 05/17/23 16:19 Freq: Status: Active Protocol: Document 05/18/23 08:39 [facility] (Rec: 05/22/23 08:43 [facility] [id number]) Skin Assessment Incisional Assessment Incision Appearance/Comments GIUSEPPE incision haling well, no signs or symptoms of infection . PT-OP-K Range of Motion Start: 05/17/23 16:19 Freq: Status: Active Protocol: Document 05/18/23 08:39 [facility] (Rec: 05/22/23 08:43 [facility] [id number]) Hip Goniometric Range of Motion Hip Right Comments not assessed due to recent surgery, functional motion available for transfers, bed mobility, and gait Left Hip ROM WFL Yes PT-OP-M Strength Start: 05/17/23 16:19 Freq: Status: Active Protocol: Document 05/18/23 08:39 [facility] (Rec: 05/22/23 08:43 [facility] [id number]) Hip Strength Hip Manual Muscle Testing Right Comments not assessed due to recent surgery Knee Strength Knee Manual Muscle Testing Right Comments no MMT due to recent GIUSEPPE right Left Flexion (S2) 5 Normal Extension (L3) 5 Normal Ankle/Foot Strength Ankle and Foot Manual Muscle Testing kianna Dorsiflexion (L4) 5 Normal Plantarflexion (S1) 5 Normal PT-OP-Q Treatments Start: 05/17/23 16:19 Freq: Status: Active Protocol: Document 09/18/23 09:05 [facility] (Rec: 09/18/23 09:45 [facility] [id number]) Cardio Equipment Recumbent Stepper (Sci-Fit) Duration (Minutes) 7 Resistance 1 Seat Position 10 Gym Equipment Shuttle Recovery Unilateral Squats Resistance 37 left 37 right Reps/Time 10x Bilateral Squats Resistance 50 Reps/Time 10x Therapeutic Exercises Sidelying Exercises hip abduction Reps/Minutes 10x Comments cues for for leg straight up clamshell, reverse clamshell Reps/Minutes 10x Comments cues for small movement Standing Exercises side lunge Reps/Minutes 10x split squat Reps/Minutes 10x ea SLS Equipment Used mirror Reps/Minutes 5x ea Comments cues for level hips, soft knees resisted walking Standing Exercise Name side, front/back Resistance L2 TB Reps/Minutes 10 ft ea directionx2 chair squats Equipment Used mirror Reps/Minutes 10x2 Comments cues for hip hinge, equal weight-bearing, gluteal activation Gait Training Gait Activity no device Surface firm Distance/Duration 10 ft 6 Comments mirror for visual feedback, VC for inc wt shift and stance time right, gluteal activation , dec lateral sway Manual Therapy Treatment Soft Tissue Mobilization right hip Body Location lateral Mobilization Type Myofascial Release,Strumming Intensity/Depth Moderate Body Position left sidelying Comments scar massage with suction tools, lateral hip MFR PT-OP-R Modalities Start: 05/17/23 16:19 Freq: Status: Active Protocol: Document 09/18/23 09:05 [facility] (Rec: 09/18/23 09:45 [facility] [id number]) Hot Pack/Cold Pack Treatment Hot Pack Location lateral right hip Patient Position Sidelying Patient Tolerance Good PT-OP-T Assessment and Plan Start: 05/17/23 16:19 Freq: Status: Active Protocol: Document 09/18/23 09:05 [facility] (Rec: 09/18/23 09:45 [facility] [id number]) Physical Therapy Assessment Goals Four Impairment unable to perform a full squat Short Term Goal (STG) Patient able to perform squat to 90 degrees and return to stand 10x without use of UEs 09/14/23: goal met STG Duration 08/31/23 Hydraulic Plumber Goal (LTG) Patient able to perform full squat and return to stand with min use of UEs LTG Duration 09/29/23 Two Impairment pain right hip Impairment pain as high as 7/10 Short Term Goal (STG) Decrease pain to no greater than 4/10 with all usual activities 06/19/23: goal met STG Duration goal met Snf Goal (LTG) Decrease pain to no greater than 2/10 with all usual activities LTG Duration 09/29/23 Three Impairment activity tolerance Impairment LEFS 26% Short Term Goal (STG) Improve LEFS score to at least 40% as measure of improved activity tolerance and function in the home and community 06/19/23: 42% goal met STG Duration goal met Snf Goal (LTG) Improve LEFS score to at least 60% as measure of improved activity tolerance and function in the home and community 07/31/23: improved to 48% LTG Duration 09/29/23 One Impairment gait dysfunction Impairment uses 4WW for gait Short Term Goal (STG) Patient able to ambulate on level surfaces and stairs using a SPC without limp or increase in pain 06/19/23: mostly met 07/31/23: goal met STG Duration goal met Snf Goal (LTG) able to ambulate without assistive device without limp on level and alternating feet on stairs with min to no lateral sway LTG Duration 09/29/23 Assessment Summary Assessment BP 155/67, pulse 85. Patient progressing slowly with ex, has been limited by BP. Demonstrates improved understanding of HEP and reports I just need to do it. Agreed to 1 further PT treatment then discharge to home program. Physical Therapy Plan Frequency and Duration Frequency of Treatment 2x/Week Duration of treatment (weeks) 8 Plan of Care Start Date 07/31/23 Plan of Care End Date 09/29/23 Therapeutic Interventions Therapeutic Interventions Balance Training,Gait Training ,Home Exercise Program,Manual Therapy,Patient/Caregiver Education,Self-Care/Home Management,Soft Tissue Mobilization,Taping, Therapeutic Activities, Therapeutic Exercises Modalities Cold Pack/Ice Massage,Electric Stimulation,Hot Packs Next Visit Focus/Plan Next Note Type Treatment Note Next Visit Plan Review HEP, assure safe and indep with all aspects of of home care. Plan discharge
--- NOTE | 2023-09-21 15:44 | PT.OTN ---
Current Diagnoses Unilateral primary osteoarthritis, right hip (09/21/23) Difficulty in walking, not elsewhere classified (09/21/23) Weakness (09/21/23) Presence of right artificial hip joint (09/21/23) Physical Therapy Treatment Note PT-OP-A Visit Information Start: 05/17/23 16:19 Freq: Status: Active Protocol: Document 09/21/23 09:08 SAK (Rec: 09/21/23 09:46 [facility] [id number]) Out-Patient Physical Therapy Visit Information Visit Information Visit Type Treatment Note Visit Start Time 09:03 Visit Stop Time 10:00 Visit Number 17 Evaluation Information Evaluation Date 05/18/23 Precautions Precautions posterior GIUSEPPE precautions HTN PT-OP-B Current Condition Start: 05/17/23 16:19 Freq: Status: Active Protocol: Document 09/21/23 09:08 SAK (Rec: 09/21/23 09:46 [facility] [id number]) Current Condition History of Current Condition Onset Date 05/02/23 Current Complaints R hip pain, difficulty with gait, weakness. History of Current Condition R posterior approach GIUSEPPE May 02. Spent night in hospital due to nausea, vomiting. Has weaned off Oxycodone and Vistaril. Took Ibuprofen this am. Can get in and out of bed on her own. Wasn't sent home with HEP. Trying to work on her walking. Had 2 week pst-op with andre ALEX to start PT . Prior Treatments and Tests 2 week follow-up, no issues. PT-OP-C Subjective Start: 05/17/23 16:19 Freq: Status: Active Protocol: Document 09/21/23 09:08 SAK (Rec: 09/21/23 09:46 [facility] [id number]) OP-PT Subjective Patient Comments Patient Comments I need to do a better job with the exercises, I know what to do. Just have been crazy busy. Agrees she needs to make exercise and self care a priority. PT-OP-D Balance Start: 05/17/23 16:19 Freq: Status: Active Protocol: Document 05/18/23 08:39 SAK (Rec: 05/22/23 08:43 [facility] [id number]) OP-PT Balance Assessment Sitting Balance Static Sitting Balance Ability Normal Dynamic Sitting Balance Ability Normal Standing Balance Static Standing Balance Ability Fair Dynamic Standing Balance Ability Fair Balance Tests Single Limb Standing Single Limb- Right unable Single Limb- Left 2 Tripathi Fall Scale Copyright Permission PT-OP-G Mobility & Gait Start: 05/17/23 16:19 Freq: Status: Active Protocol: Document 05/18/23 08:39 [facility] (Rec: 05/22/23 08:43 [facility] [id number]) OP Mobility Evaluation Transfers Sit to Stand indep with dec wb R LE OP Gait Assessment Gait Gait Assistance Required: Independent Distance (Feet) 60 Able to Maintain Weight Bearing Status Yes During Gait Assistive Devices Assistive Device Front Wheeled Walker Orthotic/Prosthetic Devices or Brace: No Gait Deviations General Gait Pattern Antalgic Factors Limiting Gait Function Factors Limiting Gait Function Decreased Activity Tolerance, Decreased Strength,Pain Stair Climbing Evaluation Evaluation Level of Assist On Stairs Standby Assistance Devices Stair Climbing Assistive Devices Left Railing,Right Railing Technique/Endurance Stair Climbing Direction Ascend and Descend Stair Climbing Technique Step to Step PT-OP-J Posture/Palpation/Skin Start: 05/17/23 16:19 Freq: Status: Active Protocol: Document 05/18/23 08:39 [facility] (Rec: 05/22/23 08:43 [facility] [id number]) Skin Assessment Incisional Assessment Incision Appearance/Comments GIUSEPPE incision haling well, no signs or symptoms of infection . PT-OP-K Range of Motion Start: 05/17/23 16:19 Freq: Status: Active Protocol: Document 05/18/23 08:39 [facility] (Rec: 05/22/23 08:43 [facility] [id number]) Hip Goniometric Range of Motion Hip Right Comments not assessed due to recent surgery, functional motion available for transfers, bed mobility, and gait Left Hip ROM WFL Yes PT-OP-M Strength Start: 05/17/23 16:19 Freq: Status: Active Protocol: Document 05/18/23 08:39 [facility] (Rec: 05/22/23 08:43 [facility] [id number]) Hip Strength Hip Manual Muscle Testing Right Comments not assessed due to recent surgery Knee Strength Knee Manual Muscle Testing Right Comments no MMT due to recent GIUSEPPE right Left Flexion (S2) 5 Normal Extension (L3) 5 Normal Ankle/Foot Strength Ankle and Foot Manual Muscle Testing kianna Dorsiflexion (L4) 5 Normal Plantarflexion (S1) 5 Normal PT-OP-Q Treatments Start: 05/17/23 16:19 Freq: Status: Active Protocol: Document 09/21/23 09:08 [facility] (Rec: 09/25/23 15:44 [facility] [id number]) Cardio Equipment Recumbent Stepper (Sci-Fit) Duration (Minutes) 8 Resistance 1 Seat Position 10 Gym Equipment Shuttle Recovery Unilateral Squats Resistance 37 left 37 right Reps/Time 10x Bilateral Squats Resistance 50 Reps/Time 10x Therapeutic Exercises Sidelying Exercises hip abduction Reps/Minutes 10x Comments cues for for leg straight up clamshell, reverse clamshell Reps/Minutes 10x Comments cues for small movement Standing Exercises side lunge Reps/Minutes 10x split squat Reps/Minutes 10x ea SLS Equipment Used mirror Reps/Minutes 5x ea Comments cues for level hips, soft knees resisted walking Standing Exercise Name side, front/back Resistance L2 TB Reps/Minutes 10 ft ea directionx2 hip flexor stretch Reps/Minutes 2x30 chair squats Equipment Used mirror Reps/Minutes 10x2 Comments cues for hip hinge, equal weight-bearing, gluteal activation minisquats Equipment Used wall bar Reps/Minutes 5x hip ab Standing Exercise Name sidestepping Equipment Used wall bar Reps/Minutes 10 ft each direction march Equipment Used wall bar Reps/Minutes 10x heel/toe raise Equipment Used wall bar Reps/Minutes 10x Gait Training Gait Activity no device Surface firm Distance/Duration 10 ft 6 Comments mirror for visual feedback, VC for inc wt shift and stance time right, gluteal activation , dec lateral sway Manual Therapy Treatment Soft Tissue Mobilization right hip Body Location lateral Mobilization Type Myofascial Release,Strumming Intensity/Depth Moderate Body Position left sidelying Comments scar massage with suction tools, lateral hip MFR PT-OP-R Modalities Start: 05/17/23 16:19 Freq: Status: Active Protocol: Document 09/21/23 09:08 [facility] (Rec: 09/25/23 15:44 [facility] [id number]) Hot Pack/Cold Pack Treatment Hot Pack Location lateral right hip Patient Position Sidelying Patient Tolerance Good PT-OP-T Assessment and Plan Start: 05/17/23 16:19 Freq: Status: Active Protocol: Document 09/21/23 09:08 [facility] (Rec: 09/21/23 09:46 [facility] [id number]) Physical Therapy Assessment Goals Four Impairment unable to perform a full squat Short Term Goal (STG) Patient able to perform squat to 90 degrees and return to stand 10x without use of UEs 09/14/23: goal met STG Duration 08/31/23 Mother Baby Rn Goal (LTG) Patient able to perform full squat and return to stand with min use of UEs LTG Duration 09/29/23 Two Impairment pain right hip Impairment pain as high as 7/10 Short Term Goal (STG) Decrease pain to no greater than 4/10 with all usual activities 06/19/23: goal met STG Duration goal met [facility] Goal (LTG) Decrease pain to no greater than 2/10 with all usual activities LTG Duration 09/29/23 Three Impairment activity tolerance Impairment LEFS 26% Short Term Goal (STG) Improve LEFS score to at least 40% as measure of improved activity tolerance and function in the home and community 06/19/23: 42% goal met STG Duration goal met Mother Baby Rn Goal (LTG) Improve LEFS score to at least 60% as measure of improved activity tolerance and function in the home and community 07/31/23: improved to 48% LTG Duration 09/29/23 One Impairment gait dysfunction Impairment uses 4WW for gait Short Term Goal (STG) Patient able to ambulate on level surfaces and stairs using a SPC without limp or increase in pain 06/19/23: mostly met 07/31/23: goal met STG Duration goal met Mother Baby Rn Goal (LTG) able to ambulate without assistive device without limp on level and alternating feet on stairs with min to no lateral sway LTG Duration 09/29/23 Assessment Summary Assessment BP 165/75, pulse 80, then 150/ 80, pulse 76. Patient independent with HEP but has poor compliance and poor compliance with working on her gait quality; able to self correct when focuses. AGreed to d/c from PT at this time due to plateau in progress. Instructed to continue with HEP, return to pool for aquatic exercise, continue to focus on gait mechanics. Patient in agreement. Physical Therapy Plan Frequency and Duration Frequency of Treatment 2x/Week Duration of treatment (weeks) 8 Plan of Care Start Date 07/31/23 Plan of Care End Date 09/29/23 Therapeutic Interventions Therapeutic Interventions Balance Training,Gait Training ,Home Exercise Program,Manual Therapy,Patient/Caregiver Education,Self-Care/Home Management,Soft Tissue Mobilization,Taping, Therapeutic Activities, Therapeutic Exercises Modalities Cold Pack/Ice Massage,Electric Stimulation,Hot Packs Discharge Physical Therapy Discharge Reasons Plateau in Progress
== END 2023-09-28 12:27 | disposition home or self-care (01) ==
LOC: PHYS 09:00
PROVIDERS: Family Provider Family Medicine; PCP Family Medicine; Referring Provider Orthopaedic Surgery; Visit Provider Orthopaedic Surgery
DX: M16.11 Unilateral primary osteoarthritis, right hip (principal); Z96.641 Presence of right artificial hip joint; R26.2 Difficulty in walking, not elsewhere classified; R53.1 Weakness
CPT/HCPCS: 97010; 97110; 97116; 97140; 97162

== ENCOUNTER → 2023-11-23 08:56 | Outpatient (CLI) | payer MEDICARE, OTHER, SELFPAY ==
--- NOTE | 2023-12-12 07:49 | DIAB.MNT ---
Initial Diabetes Medical Nutrition Therapy Assessment Name: Jacinda Villalpando Date: 11/23/23 Time: 035-4968a Dx: Type II Diabetes Jacinda presents for Dm visit. Last RD visit 2021. Wants to start glucose control supplement and has questions. Has questions regarding honey for Dm care. Wants to lose wt. Going to [place] next week, back 12/11. Then wants to really focus on wt loss. Last 10 months has had two joint replacements. Taking high vit c and using CGM. Wears FSL3. Taking Metformin 500mg TID with meals due to GI upset hx. Per PCP notes can increase to max dose per day prn. Diet Recall: 8a: oatmeal with butter, cheese or sausage OR egg with cheese OR leftovers OR haq and eggs OR apple and pb 11a-1p: salad OR sandwich OR half resendez burger with fries sn: nuts OR nothing 6p: pro, 1-2 sm potatoes OR 2-3 tacos +/- beans sn: nothing or nuts or haq or cheese water 24-36oz, decaf coffee 2-3c, hot tea, vitamin fizzy pk 16oz Anthropometrics: Ht: 66 Wt: 223# reported Physical Activity: stationary bike goal 10-15 min TID, however often 0-1x per day currently Self-Monitoring Blood Glucose: FSL3 indicates most mornings FBG 130-140mg/dl and pc meal sometimes >180mg/dl. TIR <1% >250mg/dl 12% 181-250mg/dl 87% 70-180mg/dl 0% low avmg/dl GMI 6.9% Diabetes Medications: 500mg Metformin TID Pertinent Labs: HgA1c: 6.0% 08/2022 7.5% 02/2023 Past Medical History: (Last Reviewed 08/25/23 @ 09:26 by Artemio Barton DO) Acute UTI Asthma Remote Cataract One removed Chronic back pain Spinal fusion post injury CTS (carpal tunnel syndrome) JOHNSON (dyspnea on exertion) Epidermal cyst (~04/2023) right low back Essential hypertension (04/25/17) Greater trochanteric bursitis of left hip Ground-level fall x3 2022 Hypercalcemia hx parathyroidectomy Hyperlipidemia Hyperparathyroidism Hypertension Left hamstring injury avulsion vs strain Left hamstring muscle strain Measles Osteoarthritis Osteoarthritis of right hip s/p replacement 2022 Strain of adductor nando muscle Strain of right psoas muscle Supraspinatus tendon tear Tachycardia determined by examination of pulse Varicose veins of left lower extremity Nutrition Rx: Carbohydrates:Meal:30g Snack:15-30g Nutrition Diagnosis: - Food and nutrition related knowledge deficit r/t needing refresher on DM mnt aeb pt report and diet recall - Physical inactivity r/t stage of change preparation aeb pt report Intervention: This participant was very receptive. Provided appropriate educational handouts. Discussed the following topics: Completed intake assessment. Discussed barriers to care. Review of CGM results/trends Review of plate Method, impact of macronutrients on blood sugar, meal timing, carbohydrate counting, pairing macronutrients and spreading out carbohydrates for better blood glucose management Recommended servings for carbohydrates at meals and snacks Review of supplement lack of research for Dm tx Brainstormed appropriate meal/snack ideas Role of physical activity and following provider guidelines for safety Medication management review Created SMART goals for patient self-care and success. Goals: Bike 10 minutes after meals Add protein to oats Consider max Metformin if BG continue to be elevated in the morning Follow-up: ALTHEA COLLIER follow-up in 3-4 weeks Carolyn Mccarty RDN, NANDO Certified Diabetes Care and Economics Lecturer P: [phone] Thank you for this referral
== END ==
PROVIDERS: Family Provider Family Medicine; PCP Family Medicine; Referring Provider Family Medicine
DX: E11.618 Type 2 diabetes mellitus with other diabetic arthropathy (principal); Z79.84 Long term (current) use of oral hypoglycemic drugs; Z71.3 Dietary counseling and surveillance
CPT/HCPCS: 97802

== ENCOUNTER → 2023-12-21 08:31 | Outpatient (CLI) | payer MEDICARE, OTHER, SELFPAY ==
[2023-12-21 10:12] LABS: COVID-19 CEPHEID 4-PLEX PCR POSITIVE (Negative); Influenza A - CEPHEID Flu A NEGATIVE (NEGATIVE); Influenza B - CEPHEID Flu B NEGATIVE (NEGATIVE); Respiratory Syncytial Virus Negative (Negative)
== END ==
PROVIDERS: Family Provider Family Medicine; PCP Family Medicine; Visit Provider Family Medicine
DX: R05.9 Cough, unspecified (principal)
CPT/HCPCS: 0241U

== ENCOUNTER → 2023-12-22 08:27 | Outpatient (CLI) | payer MEDICARE, OTHER, SELFPAY | PROVIDERS: Family Provider Family Medicine; PCP Family Medicine; Visit Provider Physician Assistant Surgical | DX: R35.0 Frequency of micturition (principal); R39.15 Urgency of urination; N94.9 Unspecified condition associated with female genital organs and menstrual cycle | CPT/HCPCS: 87077; 87086; 87186; 87210 ==

== ENCOUNTER 2023-12-24 08:40 | Emergency (ER) | payer MEDICARE, OTHER, SELFPAY ==
--- NOTE | 2023-12-24 08:51 | DI.RAD.S_ITS ---
PROCEDURE: XR CHEST 2V INDICATIONS: covid positive cough TECHNIQUE: 2 views of the chest were acquired. COMPARISON: [facility], CR, XR CHEST 1V, 08/25/2023, 9:30. FINDINGS: Surgical changes and devices: Left shoulder prosthesis. Lungs and pleura: Lungs are clear. No pleural effusions or pneumothorax. Mediastinum: Mediastinal contours are normal. Heart size is normal. Bones and chest wall: No suspicious bony abnormalities. Soft tissues appear unremarkable. IMPRESSION: No acute cardiopulmonary abnormality is seen. Dictated by: Familia Coelho M.D. on 12/24/2023 at 8:50 Approved by: Familia Coelho M.D. on 12/24/2023 at 8:56
[2023-12-24 09:03] VITALS: BP 172/75; PULSE 95; RESP 19; TEMP 36.6; O2SAT 96; BMI 35.9
--- NOTE | 2023-12-24 09:18 | ED_ITS ---
HPI - General Adult General Chief complaint: Shortness of Breath/Dyspnea Stated complaint: NEEDS CHEST XRAY COVID FOR SEVERAL DAYS Time Seen by Provider: 12/24/23 09:16 Source: patient, RN notes reviewed and old records reviewed Mode of arrival: Ambulatory Limitations: no limitations History of Present Illness HPI narrative: 78-year-old female with history of hypertension, diabetes type 2, sleep apnea with CPAP, hyperparathyroidism who presents with complaint of persistent cough occasional shortness of breath. Patient states that she started having nasal congestion and cough about a week and a half ago. She tested positive for COVID on December 20. She states no fevers. She states no chest pain, she states the cough has been persistent and deep. She feels like her symptoms removing more into her chest. She states occasionally feel a little short of breath. No lightheadedness or passing out, no nausea or vomiting. She had little bit of diarrhea last week but none currently. No urinary symptoms. No new swelling in extremities. She saw her physician who gave her a tiotropium inhaler once daily as well as albuterol inhaler. She states the albuterol has been helpful but symptoms has been persistent and slightly worse over time. Patient was sent for chest x-ray by her primary care physician. Patient states no tobacco use, no known lung disease. She is on multiple medications for hypertension, dyslipidemia, she has a CPAP she uses regularly. She has had multiple orthopedic surgeries but no prior cardiac or pulmonary surgeries. Denies any use of tobacco, no regular alcohol or recreational drugs. Dr. Geno Brown as her primary care physician. Related Data Home Medications Medication Instructions Recorded Confirmed quercetin PO DAILY 01/18/22 12/22/23 cholecalciferol (vitamin D3) 25 25 mcg PO DAILY 01/22/22 12/22/23 mcg (1,000 unit) capsule Vinia PO 03/10/22 12/22/23 coenzyme Q10 PO 03/10/22 12/22/23 multivitamin 1 tab PO DAILY 03/10/22 12/22/23 vitamin K2 PO 03/10/22 12/22/23 zinc acetate 25 mg (zinc) capsule 50 mg PO DAILY 09/05/23 12/22/23 Previous Rx's Medication Instructions Recorded blood-glucose meter #1 ea 05/25/22 activated charcoal 200 mg capsule 400 mg (2 x 200 mg) PO ONCE PRN 12/13/22 diarrhea #10 caps Disabled Parking Permit #1 ea 05/09/23 Diovan 160 mg tablet (valsartan) 160 mg PO BID #180 tabs 07/31/23 blood sugar diagnostic (Blood #100 ea 08/02/23 Glucose Test strips) lancets 33 gauge #100 ea 08/02/23 FreeStyle Tiny 3 Sensor #2 ea 09/05/23 (blood-glucose sensor) isosorbide mononitrate 60 mg 60 mg PO BID #60 tabs 10/04/23 tablet,extended release 24 hr metformin 500 mg tablet 500 mg PO BIDWMEAL #180 tabs 10/04/23 metoprolol tartrate 100 mg tablet 100 mg PO .qHS #90 tabs 10/23/23 clonidine 0.2 mg/24 hr weekly 1 patch transdermal QWEEK #12 ea 11/24/23 transdermal patch furosemide 20 mg tablet 20 mg PO Q OTHER DAY leg swelling 11/24/23 #90 tabs hydralazine 50 mg tablet 50 mg PO QID #360 tabs 11/24/23 albuterol sulfate 90 mcg/actuation See Rx Instructions .Route 12/21/23 aerosol inhaler (Ventolin HFA) .COMPLEX #18 grams benzonatate 200 mg capsule 200 mg PO BID-TID PRN cough 14 12/21/23 days #90 caps tiotropium bromide 18 mcg capsule 1 cap inhalation DAILY PRN wheeze 12/21/23 with inhalation device 14 days #60 inhalations cephalexin 250 mg capsule 250 mg PO TID 7 days #21 caps 12/24/23 prednisone 10 mg tablets in a dose See Rx Instructions PO .COMPLEX 12/24/23 pack #21 ea Allergies Allergy/AdvReac Type Severity Reaction Status Date / Time gum mastic Allergy Severe rash, Verified 12/22/23 08:00 [From MASTISOL LIQUID blistering ADHESIVE] methyl salicylate Allergy Severe rash, Verified 12/22/23 08:00 [From MASTISOL LIQUID blistering ADHESIVE] storax Allergy Severe rash, Verified 12/22/23 08:00 [From MASTISOL LIQUID blistering ADHESIVE] tetracycline Allergy Mild RASH Verified 12/22/23 08:00 methylprednisolone Allergy Unknown Verified 12/22/23 08:00 adhesive AdvReac Unknown LONG, Verified 12/22/23 08:00 SKINNY, STERILE STRIPS: SURGERY Review of Systems Review of Systems ROS Unobtainable: All systems reviewed & are unremarkable except as noted in HPI and below Patient History Medical History Upper respiratory tract infection due to COVID-19 virus Unspecified asthma (07/11/12) Acute UTI Epidermal cyst (~04/2023) Left hamstring injury Osteoarthritis of right hip Ground-level fall Supraspinatus tendon tear Tachycardia determined by examination of pulse JOHNSON (dyspnea on exertion) Hyperlipidemia Strain of adductor nando muscle Strain of right psoas muscle Varicose veins of left lower extremity Greater trochanteric bursitis of left hip Left hamstring muscle strain Hypercalcemia Hyperparathyroidism Asthma Cataract CTS (carpal tunnel syndrome) Chronic back pain Osteoarthritis Hypertension Measles Essential hypertension (04/25/17) Surgical History H/O colonoscopy with polypectomy (~10/2020) Anesthesia Status post parathyroidectomy (2015) History of knee replacement (2016) History of spinal fusion (2011) History of spinal fusion (06/2009) Status post tonsillectomy and adenoidectomy (1947) Family History Father CAD (coronary artery disease) Hypertension Lewy body dementia Grandfather Heart disease Mother Leukemia Acute ITP Detached retina H/O splenectomy Grandfather Cancer of soft palate Social History household members: family housing: house pets and animals: Yes (Cat and dog) Smoking Status: Never smoker alcohol intake: never Smoking Status: Never smoker alcohol intake frequency: 0-2 drinks per day Substance Use Type: does not use Exam Narrative Exam Narrative: GEN: well nourished, well appearing female, alert and oriented x 3, patient appears to be in mild distress. HEENT: Atraumatic, pupils are equal round reactive to light, extraocular movements are intact, nares are clear, there is no conjunctival pallor. Throat is clear without any exudates, erythema, tonsillar enlargement or uvular deviation HEART: Regular rate and rhythm without murmur, clicks, rubs. No edema bilateral lower extremities. LUNGS:Lungs patient has equal movement bilaterally, has bilateral wheezes in upper and lower lungs, no rales, crackles, chest moves symmetrically, no tachypnea or accessory muscle use. Patient's speaks in full sentences. Patient has an intermittent deep, dry cough on examination ABD:bowel sounds normal, soft, non-tender, no guarding, rebound, rigidity, no masses noted, no hepatosplenomegaly MSCL: Non-tender, full range of motion, normal gait NEURO:CN 2-12 intact, sensation normal Initial Vital Signs Initial Vital Signs: Vital Signs Temperature 98 F 12/24/23 09:03 Pulse Rate 95 H 12/24/23 09:03 Respiratory Rate 19 12/24/23 09:03 Blood Pressure 172/75 H 12/24/23 09:03 Pulse Oximetry 96 12/24/23 09:03 Oxygen Delivery Method Room Air 12/24/23 09:03 Course Orders Ordered: Discontinued Medications Albuterol (Albuterol 2.5 Mg/3 Ml Neb (Adult)) 2.5 mg INH NOW ONE Stop: 12/24/23 09:42 Last Admin: 12/24/23 09:52 Dose: 2.5 mg Documented By: RONEN Vital Signs Vital signs: Vital Signs - 8 hr 12/24/23 09:03 12/24/23 09:53 Temperature 98 F Pulse Rate 95 H 92 H Respiratory Rate 19 16 Blood Pressure 172/75 H Pulse Oximetry 96 97 Oxygen Delivery Method Room Air Room Air Medical Decision Making Imaging Data Chest x-ray: Radiologist's Impression: Close Chest X-Ray (Signed) Familia Coelho - 12/24/23 Launch?Image [address] [address] XRay Report Signed Patient: Jacinda Villalpando MR#: [id number] : 1945 Acct:[id number] Age/Sex: 78 / F Date of Service: 12/24/23 Loc: ED Accession Number: [id number] Procedure: XR chest 2V Ordering Provider: Huong García D.O. PROCEDURE: XR CHEST 2V INDICATIONS: covid positive cough TECHNIQUE: 2 views of the chest were acquired. COMPARISON: [facility], , XR CHEST 1V, 08/25/2023, 9:30. FINDINGS: Surgical changes and devices: Left shoulder prosthesis. Lungs and pleura: Lungs are clear. No pleural effusions or pneumothorax. Mediastinum: Mediastinal contours are normal. Heart size is normal. Bones and chest wall: No suspicious bony abnormalities. Soft tissues appear unremarkable. IMPRESSION: No acute cardiopulmonary abnormality is seen. Dictated by: Familia Coelho M.D. on 12/24/2023 at 8:50 Approved by: Familia Coelho M.D. on 12/24/2023 at 8:56 [facility] Narrative Medical decision making narrative: 78-year-old female history of hypertension, CPAP with no other lung disease who has had recent COVID infection for about a week and a half she states slightly worsening with a deepening cough, patient has been on albuterol PRN and tiotropium once daily. She had this started by her primary care physician. She presents with a request for chest x-ray she states it has not improving and feels a little bit worse. Occasional shortness of breath but no chest pain. No other red flag symptoms. On examination patient is wheezy. Chest x-ray show shows no acute change Patient received albuterol neb here she is gotten improvement of her aeration on recheck.. Plan for steroids feel like the reactive airway/bronchitis related to COVID infection. Plan for oral steroids, follow-up with return precautions. Discharge Plan Departure Patient Disposition: Home Clinical Impression: Bronchitis Instructions: DI for Acute Bronchitis Activity Restrictions/Additional Instructions: Follow up with your physician for recheck. Your chest x-ray does not show any bacterial infection, you appear to have developed some bronchitis in relation to your recent COVID infection. I had recommend a short course of steroids to help relax the muscles around your airways you can continue to use albuterol 2-4 puffs every 4-6 hours as needed. Use spacer with your inhaler. Take oral steroids until completed. Please take this medication with food. Exception sent to [facility] in [place]. Please return for worsening symptoms, new chest pain, increasing shortness of breath, lightheadedness or passing out, coughing up blood, new swelling in extremities or other new or concerning changes. Prescriptions: New prednisone 10 mg tablets,dose pack See Rx Instructions .ROUTE .COMPLEX Qty: 21 0RF Rx Instructions: 6 tabs p.o. x1 day, then 5 tabs p.o. x1 day, then 4 tablets p.o. x1 day, then 3 tabs p.o. x1 day, then 2 tabs p.o. x1 day, then 1 tab p.o. x1 day No Action cholecalciferol (vitamin D3) 25 mcg (1,000 unit) capsule 25 mcg PO DAILY zinc acetate 25 mg (zinc) capsule 50 mg PO DAILY (DME) Blood Glucose Test Strip See Rx Instructions .ROUTE .MEDSUPPLY Qty: 100 4RF Rx Instructions: Use to test blood glucose once daily. (DME) lancets 33 gauge misc See Rx Instructions .ROUTE .MEDSUPPLY Qty: 100 4RF Rx Instructions: Use to test blood glucose once daily (DME) FreeStyle Tiny 3 Sensor Device See Rx Instructions .Route Qty: 2 12RF Rx Instructions: USE TO MONITOR BLOOD GLUCOSE CONTINUOUSLY. REPLACE EVERY 14 DAYS. cephalexin 250 mg capsule 250 mg PO TID 7 Days Qty: 21 0RF (DME) Disabled Parking Permit See Rx Instructions .ROUTE .MEDSUPPLY Qty: 1 0RF Rx Instructions: Valid for 5 years albuterol sulfate [Ventolin HFA] 90 mcg/actuation HFA aerosol inhaler See Rx Instructions .ROUTE .COMPLEX Qty: 18 6RF Dose Instruction: INHALE 2 PUFFS BY MOUTH EVERY 4 HOURS NEEDED FOR SHORTNESS OF BREATH Rx Instructions: INHALE 2 PUFFS BY MOUTH EVERY 4-6 HOURS NEEDED FOR SHORTNESS OF BREATH tiotropium bromide 18 mcg capsule, w/inhalation device 1 cap inhalation DAILY PRN (Reason: wheeze) 14 Days Qty: 60 2RF Rx Instructions: puncture 1 cap using device; one dose = 2 inhalations benzonatate 200 mg capsule 200 mg PO BID-TID PRN (Reason: cough) 14 Days Qty: 90 2RF quercetin PO DAILY multivitamin Tablet 1 tab PO DAILY vitamin K2 PO coenzyme Q10 PO Vinia PO (DME) blood-glucose meter Kit See Rx Instructions .ROUTE .MEDSUPPLY Qty: 1 0RF Rx Instructions: Use to test blood glucose DAILY activated charcoal 200 mg capsule 400 mg PO ONCE PRN (Reason: diarrhea) Qty: 10 0RF Rx Instructions: take up to three doses a day as needed, at least an hour away from medications valsartan [Diovan] 160 mg tablet 160 mg PO BID Qty: 180 3RF Rx Instructions: Take one tablet by mouth twice a day. isosorbide mononitrate 60 mg tablet extended release 24 hr 60 mg PO BID Qty: 60 0RF metformin 500 mg tablet 500 mg PO BIDWMEAL Qty: 180 3RF clonidine 0.2 mg/24 hr patch weekly 1 patch transdermal QWEEK Qty: 12 3RF furosemide 20 mg tablet 20 mg PO Q OTHER DAY Qty: 90 0RF Rx Instructions: If no urine within 90 minutes of taking 20mg, next dose should be 40mg hydralazine 50 mg tablet 50 mg PO QID Qty: 360 3RF metoprolol tartrate 100 mg tablet 100 mg PO .qHS Qty: 90 0RF Referrals: Cecilia Brown DO [Primary Care Provider] - Stand Alone Forms: Patient Portal/API
--- NOTE | 2023-12-24 09:47 | PC.NURSE ---
cough; non productie.
[2023-12-24] MEDS: ALBUTEROL 2.5 MG/3 ML NEB (ADULT) INH (09:52)
[2023-12-24 09:53] VITALS: PULSE 92; RESP 16; O2SAT 97
[2023-12-24 10:12] VITALS: PULSE 88; O2SAT 94
[2023-12-24 10:13] VITALS: BP 142/65; PULSE 88; O2SAT 96
[2023-12-24 10:23] VITALS: TEMP 36.5
== END 2023-12-24 10:24 | disposition home or self-care (01) ==
PROVIDERS: Emergency Provider Emergency Medicine; Family Provider Family Medicine; PCP Family Medicine
DX: J40 Bronchitis, not specified as acute or chronic (principal); Z86.16 Personal history of COVID-19
CPT/HCPCS: 71046; 94640; 99283; J7613

== ENCOUNTER → 2024-01-10 07:52 | Outpatient (CLI) | payer MEDICARE, OTHER, SELFPAY ==
[2024-01-10 08:51] LABS: Appearance Urine UA CLEAR; Bilirubin Urine UA NEGATIVE (NEGATIVE); Color Urine UA YELLOW; Glucose Urine UA NEGATIVE (Negative); Ketones Urine UA NEGATIVE (NEGATIVE); Leukocyte Esterase Urine UA NEGATIVE (NEGATIVE); Nitrite Urine UA NEGATIVE (Negative); Occult Blood Urine UA NEGATIVE (Negative); Protein Urine UA NEGATIVE (Negative); Specific Gravity Urine UA 1.025 (1.000-1.035); Urobilinogen Urine UA 0.2 E.U./dL (0.2)
[2024-01-10 09:05] LABS: pH Urine UA 5.5 (4.5-8.0)
[2024-01-10 09:06] LABS: Bacteria Urine Occasional (0-1); RBC Urine 0-1/HPF (0-5/HPF); Squamous Epithelial Cell Urine 1-5 /HPF (0-5/HPF); Urine Volume 10mL (spun); WBC Urine 0-1/HPF (0-5/HPF)
[2024-01-10 09:07] LABS: Culture Indicated Urine Cult Not Indicated
== END ==
PROVIDERS: Family Provider Family Medicine; PCP Family Medicine; Referring Provider Family Medicine; Visit Provider Family Medicine
DX: N39.0 Urinary tract infection, site not specified (principal)
CPT/HCPCS: 81001

== ENCOUNTER → 2024-01-15 12:07 | Outpatient (CLI) | payer MEDICARE, OTHER, SELFPAY | LOC: LAB 12:09 | PROVIDERS: Family Provider Family Medicine; PCP Family Medicine; Referring Provider Family Medicine; Visit Provider Family Medicine | DX: I10 Essential (primary) hypertension (principal); I1A.0 Resistant hypertension | CPT/HCPCS: 82384 ==

== ENCOUNTER → 2024-02-04 12:58 | Outpatient (CLI) | payer MEDICARE, OTHER, SELFPAY | PROVIDERS: Family Provider Family Medicine; PCP Family Medicine; Visit Provider Registered Nurse | DX: R10.9 Unspecified abdominal pain (principal) | CPT/HCPCS: 87077; 87086; 87186 ==

== ENCOUNTER 2024-03-05 10:01 | Emergency (ER) | payer MEDICARE, OTHER, SELFPAY ==
[2024-03-05 10:05] VITALS: BP 177/79; PULSE 74; RESP 18; TEMP 36.4; O2SAT 98; BMI 35.5
--- NOTE | 2024-03-05 10:11 | DI.RAD.S_ITS ---
PROCEDURE: XR RIBS LT 2V INDICATIONS: felt a pop in ribs/pain TECHNIQUE: 4 views of the ribs were acquired. COMPARISON: [facility], CR, XR CHEST 2V, 12/24/2023, 9:06 FINDINGS: Surgical changes and devices: Total left shoulder arthroplasty. Bones and chest wall: No fractures or dislocations. No suspicious bony lesions. Overlying soft tissues appear unremarkable. Lungs and pleura: The visualized lung appears clear. No pleural effusions or pneumothorax are visible. IMPRESSION: No displaced rib fracture. Dictated by: Rosalio Jensen M.D. on 03/05/2024 at 10:39 Approved by: Rosalio Jensen M.D. on 03/05/2024 at 10:40
--- NOTE | 2024-03-05 11:25 | ED.BACK ---
HPI - Back Pain/Injury <Jason Austin PA-C - Last Filed: 03/05/24 11:44> General Chief Complaint: Back Pain/Injury Stated Complaint: poss cracked rib Time Seen by Provider: 03/05/24 11:24 Source: patient History of Present Illness HPI Narrative: 78-year-old female presents to the ED with 1 week of left-sided lower rib pain. Patient states that she was leaning over and stretching trying to clean up bathtub when she felt a pop on the left lower ribs and has been experiencing pain with inspiration ever since then. Patient states that her pain is not improving and that she spoke with her PCP who sent her to the ED for an x-ray. No chest pain, shortness of breath. Related Data Home Medications Medication Instructions Recorded Confirmed cholecalciferol (vitamin D3) 25 25 mcg PO DAILY 01/22/22 02/27/24 mcg (1,000 unit) capsule Vinia PO 03/10/22 02/27/24 coenzyme Q10 PO 03/10/22 02/27/24 multivitamin 1 tab PO DAILY 03/10/22 02/27/24 vitamin K2 PO 03/10/22 02/27/24 zinc acetate 25 mg (zinc) capsule 50 mg PO DAILY 09/05/23 02/27/24 metoprolol succinate 50 mg See Rx Instructions PO .COMPLEX 12/27/23 02/27/24 tablet,extended release 24 hr quercetin PO 12/27/23 02/27/24 Previous Rx's Medication Instructions Recorded blood-glucose meter #1 ea 05/25/22 activated charcoal 200 mg capsule 400 mg (2 x 200 mg) PO ONCE PRN 12/13/22 diarrhea #10 caps Disabled Parking Permit #1 ea 05/09/23 Diovan 160 mg tablet (valsartan) 160 mg PO BID #180 tabs 07/31/23 blood sugar diagnostic (Blood #100 ea 08/02/23 Glucose Test strips) lancets 33 gauge #100 ea 08/02/23 FreeStyle Tiny 3 Sensor #2 ea 09/05/23 (blood-glucose sensor) isosorbide mononitrate 60 mg 60 mg PO BID #60 tabs 10/04/23 tablet,extended release 24 hr metformin 500 mg tablet 500 mg PO BIDWMEAL #180 tabs 10/04/23 furosemide 20 mg tablet 20 mg PO Q OTHER DAY leg swelling 11/24/23 #90 tabs hydralazine 50 mg tablet 50 mg PO QID #360 tabs 11/24/23 albuterol sulfate 90 mcg/actuation See Rx Instructions .Route 12/21/23 aerosol inhaler (Ventolin HFA) .COMPLEX #18 grams prednisone 10 mg tablets in a dose See Rx Instructions PO .COMPLEX 12/24/23 pack #21 ea albuterol sulfate 2.5 mg/3 mL 2.5 mg (3 mL) inhalation Q4H PRN 12/27/23 (0.083 %) solution for nebulization wheeze #30 mL clonidine 0.2 mg/24 hr weekly 1 patch transdermal QWEEK #12 ea 12/27/23 transdermal patch Breo Ellipta 100 mcg-25 mcg/dose 1 inh inhalation DAILY #60 ea 01/05/24 powder for inhalation (fluticasone furoate-vilanterol) Allergies Allergy/AdvReac Type Severity Reaction Status Date / Time gum mastic Allergy Severe rash, Verified 02/27/24 08:01 [From MASTISOL LIQUID blistering ADHESIVE] methyl salicylate Allergy Severe rash, Verified 02/27/24 08:01 [From MASTISOL LIQUID blistering ADHESIVE] storax Allergy Severe rash, Verified 02/27/24 08:01 [From MASTISOL LIQUID blistering ADHESIVE] tetracycline Allergy Mild RASH Verified 02/27/24 08:01 methylprednisolone Allergy Unknown Verified 02/27/24 08:01 adhesive AdvReac Unknown LONG, Verified 02/27/24 08:01 SKINNY, STERILE STRIPS: SURGERY Review of Systems <Jason Austin PA-C - Last Filed: 03/05/24 11:44> Constitutional Constitutional: Denies chills, Denies fatigue, Denies fever(s), Denies frequent falls, Denies lethargy and Denies weakness Eyes Eyes: Denies change in vision, Denies eye discharge, Denies irritation and Denies loss of vision ENT Ears, Nose, Mouth, and Throat: Denies change in voice, Denies dizziness, Denies neck pain, Denies sore throat and Denies throat swelling Cardiovascular Cardiovascular: Denies chest pain, Denies irregular heart rhythm, Denies lightheadedness, Denies palpitations, Denies dyspnea, Denies dyspnea on exertion and Denies orthopnea Respiratory Respiratory: Denies cough, Denies dyspnea, Denies dyspnea on exertion and Denies wheezing Gastrointestinal Gastrointestinal: Denies abdominal pain, Denies change in bowel habits, Denies diarrhea, Denies nausea and Denies vomiting Musculoskeletal Musculoskeletal: Denies neck pain and Denies numbness Comments: Left-sided lower rib pain Integumentary/Breasts Skin/Breast: Denies pruritus, Denies erythema, Denies rash and Denies wounds Neurologic Neurologic: Denies behavioral changes, Denies confusion, Denies dizziness, Denies frequent falls, Denies loss of vision, Denies numbness and Denies weakness Psychiatric Psychiatric: Denies anxiety, Denies behavioral changes, Denies confusion, Denies depression, Denies homicidal ideation and Denies suicidal ideation Endocrine Endocrine: Denies fatigue, Denies flushing and Denies palpitations Hematologic/Lymphatic Hematologic/Lymphatic: Denies easy bruising Allergic/Immunologic Allergic/Immunologic: Denies urticaria, Denies throat swelling and Denies wheezing Patient History <Jason Austin PA-C - Last Filed: 03/05/24 11:44> Medical History Upper respiratory tract infection due to COVID-19 virus Acute UTI Unspecified asthma (07/11/12) Epidermal cyst (~04/2023) Left hamstring injury Osteoarthritis of right hip Ground-level fall Supraspinatus tendon tear Tachycardia determined by examination of pulse JOHNSON (dyspnea on exertion) Hyperlipidemia Strain of adductor nando muscle Strain of right psoas muscle Varicose veins of left lower extremity Greater trochanteric bursitis of left hip Left hamstring muscle strain Hypercalcemia Hyperparathyroidism Asthma Cataract CTS (carpal tunnel syndrome) Chronic back pain Osteoarthritis Hypertension Measles Essential hypertension (04/25/17) Surgical History H/O colonoscopy with polypectomy (~10/2020) Anesthesia Status post parathyroidectomy (2015) History of knee replacement (2016) History of spinal fusion (2011) History of spinal fusion (06/2009) Status post tonsillectomy and adenoidectomy (194) Family History Father CAD (coronary artery disease) Hypertension Lewy body dementia Grandfather Heart disease Mother Leukemia Acute ITP Detached retina H/O splenectomy Grandfather Cancer of soft palate Social History household members: family housing: house pets and animals: Yes (Cat and dog) Smoking Status: Never smoker alcohol intake: never Smoking Status: Never smoker alcohol intake frequency: 0-2 drinks per day Substance Use Type: does not use Exam <Jason Austin PA-C - Last Filed: 03/05/24 11:44> Narrative Exam Narrative: Const General:?cooperative, healthy appearing and comfortable [facility] Head:?normal to inspection Ears:?hearing grossly normal bilaterally Nose:?external nose normal Face and sinus:?normal facial exam and sinuses nontender Mouth:?oral mucosae normal Throat:?posterior oropharynx normal Eyes General:?appearance normal, both eyes and all related structures Neck Neck:?normal visual inspection and no lymphadenopathy noted Resp Effort & Inspection:?normal respiratory effort Auscultation:?clear to auscultation bilaterally Cardio Rate:?regular rate Rhythm:?regular rhythm Musculoskeletal No tenderness to palpation of left lower ribs. No bruising, deformities. No rash. There is full range of motion. Strength and sensation is intact. Neurovascularly intact. Neuro General:?patient alert, patient awake and patient oriented x3 Initial Vital Signs Initial Vital Signs: Vital Signs Temperature 97.5 F L 03/05/24 10:05 Pulse Rate 74 03/05/24 10:05 Respiratory Rate 18 03/05/24 10:05 Blood Pressure 177/79 H 03/05/24 10:05 Pulse Oximetry 98 03/05/24 10:05 Oxygen Delivery Method Room Air 03/05/24 10:05 <Monserrat Pizarro DO - Last Filed: 03/05/24 15:03> Initial Vital Signs Initial Vital Signs: Vital Signs Temperature 97.5 F L 03/05/24 10:05 Pulse Rate 74 03/05/24 10:05 Respiratory Rate 18 03/05/24 10:05 Blood Pressure 177/79 H 03/05/24 10:05 Pulse Oximetry 98 03/05/24 10:05 Oxygen Delivery Method Room Air 03/05/24 10:05 Course <Jason Austin PA-C - Last Filed: 03/05/24 11:44> Orders Ordered: ED Orders 03/05/24 10:11 XR ribs LT 2V Stat Discontinued Medications Lidocaine (Lidocaine 5% Patch) 1 each TOP NOW ONE Stop: 03/05/24 11:39 Last Admin: 03/05/24 11:40 Dose: 1 each Documented By: RL Vital Signs Vital signs: Vital Signs - 8 hr 03/05/24 10:05 03/05/24 11:46 Temperature 97.5 F L Pulse Rate 74 70 Respiratory Rate 18 18 Blood Pressure 177/79 H 186/84 H Pulse Oximetry 98 97 Oxygen Delivery Method Room Air Room Air <Monserrat Pizarro DO - Last Filed: 03/05/24 15:03> Orders Ordered: ED Orders 03/05/24 10:11 XR ribs LT 2V Stat Discontinued Medications Lidocaine (Lidocaine 5% Patch) 1 each TOP NOW ONE Stop: 03/05/24 11:39 Last Admin: 03/05/24 11:40 Dose: 1 each Documented By: RL Vital Signs Vital signs: Vital Signs - 8 hr 03/05/24 10:05 03/05/24 11:46 Temperature 97.5 F L Pulse Rate 74 70 Respiratory Rate 18 18 Blood Pressure 177/79 H 186/84 H Pulse Oximetry 98 97 Oxygen Delivery Method Room Air Room Air MDM - Back Pain/Injury <Jason Austin PA-C - Last Filed: 03/05/24 11:44> MDM Narrative Medical decision making narrative: 78-year-old female presents to the ED with 1 week of left-sided lower rib pain. Rib x-ray without acute findings. Patient's symptoms are most consistent with a rib contusion or musculoskeletal sprain/strain. Recommend continuing ibuprofen, Tylenol. A lidocaine patch was applied. Recommend continuing lidocaine patches if it provides relief. Recommend follow-up with PCP. ED return precautions were discussed with patient. Patient verbalized understanding. Medical records reviewed: Yes Discharge Plan Departure Patient Disposition: Home Clinical Impression: Rib pain Instructions: DI for Rib Contusion Activity Restrictions/Additional Instructions: You were evaluated in the ED today for left-sided rib pain. Your x-ray did not show any fractures or dislocations. Your symptoms are most consistent with either a rib contusion or a musculoskeletal sprain/strain. You may continue to take Tylenol, ibuprofen. A lidocaine patch was applied in the ED. you may continue to use lidocaine patches which are available [id number] under the trade name [id number]. Please follow-up with your PCP as soon as possible. Return to the ED if you have worsening symptoms, shortness of breath, chest pain. Prescriptions: No Action cholecalciferol (vitamin D3) 25 mcg (1,000 unit) capsule 25 mcg PO DAILY zinc acetate 25 mg (zinc) capsule 50 mg PO DAILY (DME) Blood Glucose Test Strip See Rx Instructions .ROUTE .MEDSUPPLY Qty: 100 4RF Rx Instructions: Use to test blood glucose once daily. (DME) lancets 33 gauge misc See Rx Instructions .ROUTE .MEDSUPPLY Qty: 100 4RF Rx Instructions: Use to test blood glucose once daily (DME) FreeStyle Tiny 3 Sensor Device See Rx Instructions .Route Qty: 2 12RF Rx Instructions: USE TO MONITOR BLOOD GLUCOSE CONTINUOUSLY. REPLACE EVERY 14 DAYS. fluticasone furoate-vilanterol [Breo Ellipta] 100-25 mcg/dose blister with device 1 inh inhalation DAILY Qty: 60 1RF (DME) Disabled Parking Permit See Rx Instructions .ROUTE .MEDSUPPLY Qty: 1 0RF Rx Instructions: Valid for 5 years albuterol sulfate [Ventolin HFA] 90 mcg/actuation HFA aerosol inhaler See Rx Instructions .ROUTE .COMPLEX Qty: 18 6RF Dose Instruction: INHALE 2 PUFFS BY MOUTH EVERY 4 HOURS NEEDED FOR SHORTNESS OF BREATH Rx Instructions: INHALE 2 PUFFS BY MOUTH EVERY 4-6 HOURS NEEDED FOR SHORTNESS OF BREATH multivitamin Tablet 1 tab PO DAILY vitamin K2 PO coenzyme Q10 PO Vinia PO (DME) blood-glucose meter Kit See Rx Instructions .ROUTE .MEDSUPPLY Qty: 1 0RF Rx Instructions: Use to test blood glucose DAILY activated charcoal 200 mg capsule 400 mg PO ONCE PRN (Reason: diarrhea) Qty: 10 0RF Rx Instructions: take up to three doses a day as needed, at least an hour away from medications valsartan [Diovan] 160 mg tablet 160 mg PO BID Qty: 180 3RF Rx Instructions: Take one tablet by mouth twice a day. isosorbide mononitrate 60 mg tablet extended release 24 hr 60 mg PO BID Qty: 60 0RF metformin 500 mg tablet 500 mg PO BIDWMEAL Qty: 180 3RF furosemide 20 mg tablet 20 mg PO Q OTHER DAY Qty: 90 0RF Rx Instructions: If no urine within 90 minutes of taking 20mg, next dose should be 40mg hydralazine 50 mg tablet 50 mg PO QID Qty: 360 3RF quercetin PO metoprolol succinate 50 mg tablet extended release 24 hr See Rx Instructions PO .COMPLEX Rx Instructions: TAKE 1 TO 2 TABLET BY MOUTH EVERY MORNING. TAKE 1 TABLET EVERY NIGHT AT BEDTIME ONLY IF SYSTOLIC BLOOD PRESSURE IS OVER 160 clonidine 0.2 mg/24 hr patch weekly 1 patch transdermal QWEEK Qty: 12 3RF albuterol sulfate 2.5 mg /3 mL (0.083 %) solution for nebulization 2.5 mg inhalation Q4H PRN (Reason: wheeze) Qty: 30 0RF Rx Instructions: this OR inhalation q2-4h, not both in that time frame prednisone 10 mg tablets,dose pack See Rx Instructions .ROUTE .COMPLEX Qty: 21 0RF Rx Instructions: 6 tabs p.o. x1 day, then 5 tabs p.o. x1 day, then 4 tablets p.o. x1 day, then 3 tabs p.o. x1 day, then 2 tabs p.o. x1 day, then 1 tab p.o. x1 day Referrals: Cecilia Brown DO [Primary Care Provider] - Stand Alone Forms: Patient Portal/API ED Sign-out <Monserrat Pizarro DO - Last Filed: 03/05/24 15:03> Cosign ED Attending Cosarabella Attestation: I was available for consultation.
[2024-03-05] MEDS: LIDOCAINE 5% PATCH 1 EACH TOP (11:40)
[2024-03-05 11:46] VITALS: BP 186/84; PULSE 70; RESP 18; O2SAT 97
== END 2024-03-05 11:46 | disposition home or self-care (01) ==
PROVIDERS: Emergency Provider Student in an Organized Health Care Education/Training Program; Family Provider Family Medicine; PCP Family Medicine
DX: R07.81 Pleurodynia (principal); Z79.899 Other long term (current) drug therapy
CPT/HCPCS: 71100; 99283

== ENCOUNTER → 2024-03-05 13:58 | Outpatient (CLI) | payer MEDICARE, OTHER, SELFPAY ==
--- NOTE | 2024-04-23 07:50 | DIAB.MNTFU ---
Follow-up Diabetes Medical Nutrition Therapy Assessment Name: Jacinda Villalpando Date: 03/05/24 Time: 215-245p Dx: Type II Diabetes Jacinda presents for Dm visit. Just back from her trip. States food choices went well since food was already prepared and easy to choose veggies and protein. However does report increased hyperglycemia with return from trip. This is reflected in TIR. Diet Recall: 8a: protein shake with water 14g CHO 11-1230: open faced sandwich with veg and protein sn:nothing or nuts 530p: half salad mix with added veg and taco meat OR salad with egg and haq +/- potatoes OR taco shells x 3 9p: cheese stick water, decaf coffee Anthropometrics: Ht: 66 Wt: 223# reported last visit Physical Activity: stationary bike goal 10-15 min TID, however often 0-1x per day currently Self-Monitoring Blood Glucose: FSL3 indicates increased elevations and reduced time in range since last visit. FBG often >130mg/dl. Today TIR 6% >250mg/dl 28% 181-250mg/dl 66% 70-180mg/dl 0% low avmg/dl GMI 7.6% Last Visit TIR <1% >250mg/dl 12% 181-250mg/dl 87% 70-180mg/dl 0% low avmg/dl GMI 6.9% Diabetes Medications: 500mg Metformin TID Pertinent Labs: HgA1c: 6.0% 08/2022 7.5% 02/2023 Past Medical History: (Last Reviewed 08/25/23 @ 09:26 by Artemio Barton DO) Acute UTI Asthma Remote Cataract One removed Chronic back pain Spinal fusion post injury CTS (carpal tunnel syndrome) JOHNSON (dyspnea on exertion) Epidermal cyst (~04/2023) right low back Essential hypertension (04/25/17) Greater trochanteric bursitis of left hip Ground-level fall x3 2022 Hypercalcemia hx parathyroidectomy Hyperlipidemia Hyperparathyroidism Hypertension Left hamstring injury avulsion vs strain Left hamstring muscle strain Measles Osteoarthritis Osteoarthritis of right hip s/p replacement 2022 Strain of adductor nando muscle Strain of right psoas muscle Supraspinatus tendon tear Tachycardia determined by examination of pulse Varicose veins of left lower extremity Nutrition Rx: Carbohydrates:Meal:30g Snack:15-30g Nutrition Diagnosis: - Food and nutrition related knowledge deficit r/t needing refresher on DM mnt aeb pt report and diet recall- in progress - Physical inactivity r/t stage of change preparation aeb pt report- in progress Intervention: This participant was very receptive. Provided appropriate educational handouts. Discussed the following topics: Review of BG trends Review of CHO contents in foods/carb counting Pairing CHO/pro Medication management Created SMART goals for patient self-care and success. Goals: Bike 10 minutes after meals- notmet Add protein to oats- met Consider max Metformin if BG continue to be elevated in the morning- continued Try Metformin 500mg AM and 1000mg PM if PCP agrees- new Keep CHO to 30g at meals- new Start stationary bike- new Follow-up: ALTHEA COLLIER follow-up in 3 months per pt request. Carolyn Mccarty RDN, NANDO Certified Diabetes Care and Holistic Health Practitioner P: [phone] Thank you for this referral
== END ==
PROVIDERS: Family Provider Family Medicine; PCP Family Medicine; Referring Provider Family Medicine
DX: E11.9 Type 2 diabetes mellitus without complications (principal); Z71.3 Dietary counseling and surveillance; Z79.84 Long term (current) use of oral hypoglycemic drugs
CPT/HCPCS: 97803

== ENCOUNTER → 2024-04-06 08:33 | Outpatient (CLI) | payer MEDICARE, OTHER, SELFPAY | PROVIDERS: Family Provider Family Medicine; PCP Family Medicine; Visit Provider Nurse Practitioner Family | DX: R30.0 Dysuria (principal) | CPT/HCPCS: 87077; 87086; 87186 ==

== ENCOUNTER 2024-05-01 09:45 | Outpatient (RCR) | payer MEDICARE, OTHER, SELFPAY ==
--- NOTE | 2024-01-08 12:06 | PT.OPPOC ---
Physical, Occupational & Speech Therapy At [facility] Current Diagnoses Primary osteoarthritis, right shoulder (01/08/24) Pain in right shoulder (01/08/24) Weakness (01/08/24) Presence of right artificial hip joint (01/08/24) Visit Care Team Role Provider Type Cecilia Brown DO Family Provider Physician Primary Care Provider Specialty: Medical Address: [address] [place] [address], [address], [place], [address] Email: [email or web address] Burgos DO Attending Provider Non-Staff Referring Provider Specialty: Orthopedic Surgery Address: [address] [facility] [facility], [place], [address] Email: Plan Of Care PT-OP-T Assessment and Plan Start: 01/04/24 17:17 Freq: Status: Active Protocol: Document 01/08/24 14:32 SAK (Rec: 01/10/24 10:28 [facility] [id number]) Physical Therapy Assessment Rehab Potential Rehabilitation Potential Good Evaluation Complexity Number of Personal Factors/Comorbidities 1-2 Number of Body Systems Impaired 3 Impairments Impairments Activity Tolerance,Pain,ROM, Strength Goals Two Impairment ROM and strength impairments right shoulder Short Term Goal (STG) Patient to be instructed in individualized progressive HEP for purposes of increasing her right shoulder ROM and strength STG Duration 02/10/24 [employer] Operation Goal (LTG) Patient will be independnet and compliance with HEP and demonstrate right shoulder ROM WFL and improve strength to at least 4+/5 all muscle groups LTG Duration 04/09/24 Three Impairment Activity tolerance Impairment Quickdash UE score 47% Short Term Goal (STG) Decrease Quickdash score to no greater than 35% as measure of improved functional activity tolerance STG Duration 02/10/24 Assisted Goal (LTG) Decrease Quickdash score to no greater than 15% as measure of improved functional activity tolerance and quality of life LTG Duration 04/09/24 One Impairment function-limiting pain Impairment unable to reach overhead or behind her back right UE due to pain ant R shoulder Short Term Goal (STG) Decrease pain by at least 50% to allow patient to return to light activities with left UE STG Duration 02/10/24 [employer] Operation Goal (LTG) Decrease pain by at least 75% with to allow patient to return to all prior activies including reaching overhead and behind her back and 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 Objective testing was negative for biceps involvement, drop arm negative , Lopez's positive for possible anterior labral involvement. Feel lpatient would benefit from PT to decrease her pain, improve her ROM and strength, and help her return to PLF. POC was discussed and patient was in agreement. Physical Therapy Plan Frequency and Duration Frequency of Treatment 2x/Week Duration of treatment (weeks) 12 Plan of Care Start Date 01/08/24 Plan of Care End Date 04/09/24 Therapeutic Interventions Therapeutic Interventions Home Exercise Program,Joint Mobilizations,Manual Therapy, Patient/Caregiver Education, Self-Care/Home Management,Soft Tissue Mobilization,Taping, Therapeutic Activities, Therapeutic Exercises Modalities Cold Pack/Ice Massage,Electric Stimulation,Hot Packs, Infrared Therapy,Iontophoresis ,Ultrasound Next Visit Focus/Plan Next Note Type Treatment Note Next Visit Plan Review HEP, gentle ther ex for ROM including pulleys as tolerated. Gentle isometric shoulder strengtheing. Manual therapy and modalities PRN pain; assess response to cold laser first session. Plan of Care Dates Plan of Care Start Date 01/08/24 Plan of Care End Date 04/09/24 Electronically Signed by: Martina Feng PT 01/10/24 0710 If you are in agreement with this Plan of Care, please return a signed and dated copy. I have reviewed this Plan of Care and certify that the skilled therapy services above are required to meet the patient?s needs. Physician Signature Date Printed Name and Credentials Clinical Instructor Signature Printed Name and Credentials
--- NOTE | 2024-01-08 12:06 | PT.OIE ---
Current Diagnoses Primary osteoarthritis, right shoulder (01/08/24) Pain in right shoulder (01/08/24) Weakness (01/08/24) Presence of right artificial hip joint (01/08/24) Past Medical History (Last Updated 12/27/23 @ 10:44 by Cecilia Brown DO) Asthma Cataract Chronic back pain CTS (carpal tunnel syndrome) JOHNSON (dyspnea on exertion) Epidermal cyst (~04/2023) Essential hypertension (04/25/17) Greater trochanteric bursitis of left hip Ground-level fall Hypercalcemia Hyperlipidemia Hyperparathyroidism Hypertension Left hamstring injury Left hamstring muscle strain Measles Osteoarthritis Osteoarthritis of right hip Strain of adductor nando muscle Strain of right psoas muscle Supraspinatus tendon tear Tachycardia determined by examination of pulse Unspecified asthma (07/11/12) Upper respiratory tract infection due to COVID-19 virus Varicose veins of left lower extremity Past Surgical History (Last Reviewed 12/24/23 @ 09:44 by Huong García DO) Anesthesia H/O colonoscopy with polypectomy (~10/2020) History of knee replacement (2016) History of spinal fusion (06/2009) History of spinal fusion (2011) Status post parathyroidectomy (2015) Status post tonsillectomy and adenoidectomy (1947) Visit Care Team Role Provider Type Cecilia Brown DO Family Provider Physician Primary Care Provider Specialty: Medical Address: [address] [place] [address], [address], [address] Email: [email or web address] Blaine Burgos DO Attending Provider Non-Staff Referring Provider Specialty: Orthopedic Surgery Address: [address] [place] [address], [id number] Email: Physical Therapy Initial Evaluation PT-OP-A Visit Information Start: 01/04/24 17:17 Freq: Status: Active Protocol: Document 01/08/24 14:32 RALF (Rec: 01/08/24 15:21 SAK [id number]) Out-Patient Physical Therapy Visit Information Visit Information Visit Type Initial Evaluation Visit Start Time 14:32 Visit Stop Time 15:30 Visit Number 1 Evaluation Information Evaluation Date 01/08/24 Precautions Precautions spinal fusions, 2 TKA, left TSA. PT-OP-B Current Condition Start: 01/04/24 17:17 Freq: Status: Active Protocol: Document 01/08/24 14:32 [facility] (Rec: 01/08/24 15:21 [facility] [id number]) Current Condition History of Current Condition Onset Date April 2023 Current Complaints right shoulder pain History of Current Condition Had to lay on right shoulder and push up with it after GIUSEPPE last fall with gradual onset right shoulder pain and dysfunction. Now reporting pain and weakness, denies N/T. Overall seems to be getting worse, states she babies it. Patient is left handed. States at times she can't even lift a coffee cup. Can't reach overhead, behind her back, has to use adaptive equipement to wash her back. Just got back from trip to [place], had to modify how she managed her luggage. 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 Subjective Start: 01/04/24 17:17 Freq: Status: Active Protocol: Document 01/08/24 14:32 [facility] (Rec: 01/10/24 10:28 [facility] [id number]) OP-PT Subjective Patient Comments Patient Comments Reports she wants to regain full active use of right shoulder and not have to have surgery Patient Questionnaires Quick Dash- Upper Extremity Quick Dash UE Score 47 OP-PT Pain Assessment Pain Assessment Grid Paper Pain Assessment Grid Completed Yes Location right anterior shoulder Intensity 4 Scale Used Numeric (0 - 10) Description Aching,Acute,Stabbing,With Movement Frequency Frequent Pain Aggravating Factors Activity,Exercise,Lifting Other Pain Aggravating Factors reaching overhead, behind back Pain Alleviating Factors Inactivity PT-OP-F Manual Assessment Start: 01/04/24 17:17 Freq: Status: Active Protocol: Document 01/08/24 14:32 [facility] (Rec: 01/10/24 10:28 [facility] [id number]) Manual Assessments Soft Tissue Assessment Soft Tissue Mobility Assessment tender to palpation anterior GH joint Joint Mobility Assessment Joint Mobility Assessment dec post and inf glide, pain anterior aspect GH with pressure PT-OP-H Neuro Start: 01/04/24 17:17 Freq: Status: Active Protocol: Document 01/08/24 14:32 [facility] (Rec: 01/10/24 10:28 [facility] [id number]) Sensation Evaluation Gross Sensation Gross Sensation WNL PT-OP-J Posture/Palpation/Skin Start: 01/04/24 17:17 Freq: Status: Active Protocol: Document 01/08/24 14:32 [facility] (Rec: 01/10/24 10:28 [facility] [id number]) Posture Evaluation Position Sitting Head/C-Spine Posture Forward Head T-Spine Posture Increased Kyphosis Shoulder Posture (L) Rounded,(R) Rounded Scapula Posture (R) Protracted,(L) Retracted Arm Posture (L) Internally Rotated,(R) Internally Rotated Palpation Assessment Location right shoulder Palpation Location anterior Palpation Findings Muscle Guarding,Tenderness Skin Assessment Other Assessments Skin Assessment Comments intact PT-OP-K Range of Motion Start: 01/04/24 17:17 Freq: Status: Active Protocol: Document 01/08/24 14:32 [facility] (Rec: 01/08/24 15:21 [facility] [id number]) Cervical Spine Range of Motion Cervical Spine Active Comments WFL Shoulder Goniometric Range of Motion Shoulder Left Flexion 165 Extension 22 Abduction 160 External Rotation at 45 degrees 65 Abduction External Rotation at 0 degrees Abduction 60 Internal Rotation Behind Back (text) L4 Right Active Flexion 97 Extension 9 Abduction 120 External Rotation at 45 degrees 21 Abduction External Rotation at 0 degrees Abduction 14 Internal Rotation Behind Back (text) posterior buttock Elbow/Forearm Range of Motion Elbow/Forearm kianna Elbow/Forearm ROM WFL Yes PT-OP-L Special Tests Start: 01/04/24 17:17 Freq: Status: Active Protocol: Document 01/08/24 14:32 [facility] (Rec: 01/10/24 10:28 [facility] [id number]) Special Tests Shoulder Special Tests [place] Test Test Results positive right Grind Labrum Test Results positive right Empty Can Test Results negative Passive ER Rotator Cuff Test Results negative Elevation Impingement Test Results negative PT-OP-M Strength Start: 01/04/24 17:17 Freq: Status: Active Protocol: Document 01/08/24 14:32 [facility] (Rec: 01/08/24 15:21 [facility] [id number]) Shoulder Strength Shoulder Manual Muscle Testing Left Flexion 4 Good Extension 4 Good Abduction (C5) 4 Good External Rotation 4- Good- Internal Rotation 4 Good Right Flexion 3- Fair- Extension 3+ Fair+ Abduction (C5) 3- Fair- External Rotation 3- Fair- Internal Rotation 4 Good Elbow/Forearm Strength Elbow and Forearm Manual Muscle Testing Right Flexion (C6) 4 Good Extension (C7) 4 Good PT-OP-Q Treatments Start: 01/04/24 17:17 Freq: Status: Active Protocol: Document 01/08/24 14:32 [facility] (Rec: 01/10/24 10:28 [facility] [id number]) Self-Care/Home Management Treatment Education Patient Education Home Exercise Program,Pain Management,Posture Other Education issued written HO PT-OP-R Modalities Start: 01/04/24 17:17 Freq: Status: Active Protocol: Document 01/08/24 14:32 [facility] (Rec: 01/10/24 10:28 [facility] [id number]) Hot Pack/Cold Pack Treatment Hot Pack Location right shoulder Patient Position Hooklying Infrared Treatment Treatment right anterior shoulder Body Position Hooklying Continuous/Pulsed Continuous Program or Protocal chronic pain and stiffness PT-OP-T Assessment and Plan Start: 01/04/24 17:17 Freq: Status: Active Protocol: Document 01/08/24 14:32 [facility] (Rec: 01/10/24 10:28 [facility] [id number]) Physical Therapy Assessment Rehab Potential Rehabilitation Potential Good Evaluation Complexity Number of Personal Factors/Comorbidities 1-2 Number of Body Systems Impaired 3 Impairments Impairments Activity Tolerance,Pain,ROM, Strength Goals Two Impairment ROM and strength impairments right shoulder Short Term Goal (STG) Patient to be instructed in individualized progressive HEP for purposes of increasing her right shoulder ROM and strength STG Duration 02/10/24 [employer] Goal (LTG) Patient will be independnet and compliance with HEP and demonstrate right shoulder ROM WFL and improve strength to at least 4+/5 all muscle groups LTG Duration 04/09/24 Three Impairment Activity tolerance Impairment Quickdash UE score 47% Short Term Goal (STG) Decrease Quickdash score to no greater than 35% as measure of improved functional activity tolerance STG Duration 02/10/24 Senior Care Goal (LTG) Decrease Quickdash score to no greater than 15% as measure of improved functional activity tolerance and quality of life LTG Duration 04/09/24 One Impairment function-limiting pain Impairment unable to reach overhead or behind her back right UE due to pain ant R shoulder Short Term Goal (STG) Decrease pain by at least 50% to allow patient to return to light activities with left UE STG Duration 02/10/24 Senior Care Goal (LTG) Decrease pain by at least 75% with to allow patient to return to all prior activies including reaching overhead and behind her back and working at [employer] without an increase in pain LTG Duration 04/09/24 Assessment Summary Assessment Patient presents to PT with function-limiting anterior right shoulder pain with inability to reach overhead, behind her back or do other usual activities around the house. Objective testing was negative for biceps involvement, drop arm negative , Lopez's positive for possible anterior labral involvement. Feel lpatient would benefit from PT to decrease her pain, improve her ROM and strength, and help her return to PLF. POC was discussed and patient was in agreement. Physical Therapy Plan Frequency and Duration Frequency of Treatment 2x/Week Duration of treatment (weeks) 12 Plan of Care Start Date 01/08/24 Plan of Care End Date 04/09/24 Therapeutic Interventions Therapeutic Interventions Home Exercise Program,Joint Mobilizations,Manual Therapy, Patient/Caregiver Education, Self-Care/Home Management,Soft Tissue Mobilization,Taping, Therapeutic Activities, Therapeutic Exercises Modalities Cold Pack/Ice Massage,Electric Stimulation,Hot Packs, Infrared Therapy,Iontophoresis ,Ultrasound Next Visit Focus/Plan Next Note Type Treatment Note Next Visit Plan Review HEP, gentle ther ex for ROM including pulleys as tolerated. Gentle isometric shoulder strengtheing. Manual therapy and modalities PRN pain; assess response to cold laser first session.
--- NOTE | 2024-01-11 15:15 | PT.OTN ---
Current Diagnoses Primary osteoarthritis, right shoulder (01/11/24) Pain in right shoulder (01/11/24) Weakness (01/11/24) Presence of right artificial hip joint (01/11/24) Physical Therapy Treatment Note PT-OP-A Visit Information Start: 01/04/24 17:17 Freq: Status: Active Protocol: Document 01/11/24 13:07 [facility] (Rec: 01/11/24 14:01 [facility] [id number]) Out-Patient Physical Therapy Visit Information Visit Information Visit Type Treatment Note Visit Start Time 13:02 Visit Stop Time 14:02 Visit Number 2 Evaluation Information Evaluation Date 01/08/24 Precautions Precautions spinal fusions, 2 TKA, left TSA. PT-OP-B Current Condition Start: 01/04/24 17:17 Freq: Status: Active Protocol: Document 01/11/24 13:07 [facility] (Rec: 01/11/24 14:01 [facility] [id number]) Current Condition History of Current Condition Onset Date April 2023 Current Complaints right shoulder pain History of Current Condition Had to lay on right shoulder and push up with it after GIUSEPPE last fall with gradual onset right shoulder pain and dysfunction. Now reporting pain and weakness, denies N/T. Overall seems to be getting worse, states she babies it. Patient is left handed. States at times she can't even lift a coffee cup. Can't reach overhead, behind her back, has to use adaptive equipement to wash her back. Just got back from trip to [place], had to modify how she managed her luggage. Prior Treatments and Tests None, no ice or heat Future Testing and Treatments Planned Having OMT for neck and back Treatment Goals Patient/Caregiver Goals Decrease pain, regain full active use right shoulder PT-OP-C Subjective Start: 01/04/24 17:17 Freq: Status: Active Protocol: Document 01/11/24 13:07 [facility]AK (Rec: 01/11/24 14:01 [facility] [id number]) OP-PT Subjective Patient Comments Patient Comments Saw Dr. Brown yesterday for OMT, given an exercise of rounding shoulders forward, lifting arms , and dropping arms out to side. Reports dec pain after OMT 15-20%. PT-OP-F Manual Assessment Start: 01/04/24 17:17 Freq: Status: Active Protocol: Document 01/08/24 14:32 [facility] (Rec: 01/10/24 10:28 [facility] [id number]) Manual Assessments Soft Tissue Assessment Soft Tissue Mobility Assessment tender to palpation anterior GH joint Joint Mobility Assessment Joint Mobility Assessment dec post and inf glide, pain anterior aspect GH with pressure PT-OP-H Neuro Start: 01/04/24 17:17 Freq: Status: Active Protocol: Document 01/08/24 14:32 [facility] (Rec: 01/10/24 10:28 [facility] [id number]) Sensation Evaluation Gross Sensation Gross Sensation WNL PT-OP-J Posture/Palpation/Skin Start: 01/04/24 17:17 Freq: Status: Active Protocol: Document 01/08/24 14:32 [facility] (Rec: 01/10/24 10:28 [facility] [id number]) Posture Evaluation Position Sitting Head/C-Spine Posture Forward Head T-Spine Posture Increased Kyphosis Shoulder Posture (L) Rounded,(R) Rounded Scapula Posture (R) Protracted,(L) Retracted Arm Posture (L) Internally Rotated,(R) Internally Rotated Palpation Assessment Location right shoulder Palpation Location anterior Palpation Findings Muscle Guarding,Tenderness Skin Assessment Other Assessments Skin Assessment Comments intact PT-OP-K Range of Motion Start: 01/04/24 17:17 Freq: Status: Active Protocol: Document 01/08/24 14:32 [facility] (Rec: 01/08/24 15:21 [facility] [id number]) Cervical Spine Range of Motion Cervical Spine Active Comments WFL Shoulder Goniometric Range of Motion Shoulder Left Flexion 165 Extension 22 Abduction 160 External Rotation at 45 degrees 65 Abduction External Rotation at 0 degrees Abduction 60 Internal Rotation Behind Back (text) L4 Right Active Flexion 97 Extension 9 Abduction 120 External Rotation at 45 degrees 21 Abduction External Rotation at 0 degrees Abduction 14 Internal Rotation Behind Back (text) posterior buttock Elbow/Forearm Range of Motion Elbow/Forearm kianna Elbow/Forearm ROM WFL Yes PT-OP-L Special Tests Start: 01/04/24 17:17 Freq: Status: Active Protocol: Document 01/08/24 14:32 [facility] (Rec: 01/10/24 10:28 [facility] [id number]) Special Tests Shoulder Special Tests [place] Test Test Results positive right Grind Labrum Test Results positive right Empty Can Test Results negative Passive ER Rotator Cuff Test Results negative Elevation Impingement Test Results negative PT-OP-M Strength Start: 01/04/24 17:17 Freq: Status: Active Protocol: Document 01/08/24 14:32 [facility] (Rec: 01/08/24 15:21 [facility] [id number]) Shoulder Strength Shoulder Manual Muscle Testing Left Flexion 4 Good Extension 4 Good Abduction (C5) 4 Good External Rotation 4- Good- Internal Rotation 4 Good Right Flexion 3- Fair- Extension 3+ Fair+ Abduction (C5) 3- Fair- External Rotation 3- Fair- Internal Rotation 4 Good Elbow/Forearm Strength Elbow and Forearm Manual Muscle Testing Right Flexion (C6) 4 Good Extension (C7) 4 Good PT-OP-Q Treatments Start: 01/04/24 17:17 Freq: Status: Active Protocol: Document 01/11/24 13:07 [facility] (Rec: 01/11/24 14:01 [facility] [id number]) Therapeutic Exercises Supine Exercises isometric shoulder ext Reps/Minutes 10x Comments cue squeeze shoulder blades Y Equipment Used dowel Reps/Minutes 10x shoulder flex Equipment Used dowel Reps/Minutes 10x Comments cues for thumbs up, good anthony shld ER Equipment Used dowel Reps/Minutes 10x Comments cues for keeping elbow bent 90 degrees, limited ROM Sitting Exercises ball roll Sitting Exercise Name standing first, then sitting for inc ROM Equipment Used 65 cm ball on table Reps/Minutes 10x sh ext Equipment Used dowel Reps/Minutes 10x Comments cues for painfree ROM, no anterior translation head of huerus sh ER Equipment Used dowel Reps/Minutes 10x Comments cues for elbow at side and flexed 90 pulleys Sitting Exercise Name flexion and scaption Reps/Minutes 10x Standing Exercises shld blade squeeze Reps/Minutes 5x shoulder shrugs Reps/Minutes 5x long axis sh ER/IR Reps/Minutes 5x Comments painfree Manual Therapy Treatment Soft Tissue Mobilization right biceps, deltoid Mobilization Type Myofascial Release Intensity/Depth mod Body Position Hooklying Joint Mobilizations inf glide Joint GH Grade II Body Position hook Reps/Duration 2 min Self-Care/Home Management Treatment Education Patient Education Home Exercise Program,Pain Management,Posture Other Education updated HO PT-OP-R Modalities Start: 01/04/24 17:17 Freq: Status: Active Protocol: Document 01/08/24 14:32 [facility] (Rec: 01/10/24 10:28 [facility] [id number]) Hot Pack/Cold Pack Treatment Hot Pack Location right shoulder Patient Position Hooklying Infrared Treatment Treatment right anterior shoulder Body Position Hooklying Continuous/Pulsed Continuous Program or Protocal chronic pain and stiffness PT-OP-T Assessment and Plan Start: 01/04/24 17:17 Freq: Status: Active Protocol: Document 01/11/24 13:07 [facility] (Rec: 01/11/24 14:01 [facility] [id number]) Physical Therapy Assessment Goals Two Impairment ROM and strength impairments right shoulder Impairment pain as high as 7/10 Short Term Goal (STG) Patient to be instructed in individualized progressive HEP for purposes of increasing her right shoulder ROM and strength STG Duration 02/10/24 Nursing Home Goal (LTG) Patient will be independnet and compliance with HEP and demonstrate right shoulder ROM WFL and improve strength to at least 4+/5 all muscle groups LTG Duration 04/09/24 Three Impairment Activity tolerance Impairment Quickdash UE score 47% Short Term Goal (STG) Decrease Quickdash score to no greater than 35% as measure of improved functional activity tolerance STG Duration 02/10/24 Nursing Home Goal (LTG) Decrease Quickdash score to no greater than 15% as measure of improved functional activity tolerance and quality of life LTG Duration 04/09/24 One Impairment function-limiting pain Impairment unable to reach overhead or behind her back right UE due to pain ant R shoulder Short Term Goal (STG) Decrease pain by at least 50% to allow patient to return to light activities with left UE STG Duration 02/10/24 Nursing Home Goal (LTG) Decrease pain by at least 75% with to allow patient to return to all prior activies including reaching overhead and behind her back and working at [employer] without an increase in pain LTG Duration 04/09/24 Assessment Summary Assessment Improved elevation right shoulder with use of ball standing and seated and with wand supine to approx 125 deg max. Cont with cold laser and moist heat. Trial iontophoresis right shoulder today. Updated written HEP. Physical Therapy Plan Frequency and Duration Frequency of Treatment 2x/Week Duration of treatment (weeks) 12 Plan of Care Start Date 01/08/24 Plan of Care End Date 04/09/24 Therapeutic Interventions Therapeutic Interventions Home Exercise Program,Joint Mobilizations,Manual Therapy, Patient/Caregiver Education, Self-Care/Home Management,Soft Tissue Mobilization,Taping, Therapeutic Activities, Therapeutic Exercises Modalities Cold Pack/Ice Massage,Electric Stimulation,Hot Packs, Infrared Therapy,Iontophoresis ,Ultrasound Next Visit Focus/Plan Next Note Type Treatment Note Next Visit Plan Review HEP, gentle ther ex for ROM including pulleys as tolerated. Gentle isometric shoulder strengtheing. Manual therapy and modalities PRN pain. Assess response to iontophoresis and continue if indicated.
--- NOTE | 2024-01-19 09:55 | PT.OTN ---
Current Diagnoses Primary osteoarthritis, right shoulder (01/19/24) Pain in right shoulder (01/19/24) Weakness (01/19/24) Presence of right artificial hip joint (01/19/24) Physical Therapy Treatment Note PT-OP-A Visit Information Start: 01/04/24 17:17 Freq: Status: Active Protocol: Document 01/19/24 09:06 SP (Rec: 01/19/24 09:49 SP [id number]) Out-Patient Physical Therapy Visit Information Visit Information Visit Type Treatment Note Visit Start Time 09:06 Visit Stop Time 09:55 Visit Number 3 Number of BLOW PIT HELPER Visits 1 Evaluation Information Evaluation Date 01/08/24 Precautions Precautions spinal fusions, 2 TKA, left TSA. PT-OP-B Current Condition Start: 01/04/24 17:17 Freq: Status: Active Protocol: Document 01/11/24 13:07 SAK (Rec: 01/11/24 14:01 SAK [id number]) Current Condition History of Current Condition Onset Date April 2023 Current Complaints right shoulder pain History of Current Condition Had to lay on right shoulder and push up with it after GIUSEPPE last fall with gradual onset right shoulder pain and dysfunction. Now reporting pain and weakness, denies N/T. Overall seems to be getting worse, states she babies it. Patient is left handed. States at times she can't even lift a coffee cup. Can't reach overhead, behind her back, has to use adaptive equipement to wash her back. Just got back from trip to [place], had to modify how she managed her luggage. Prior Treatments and Tests None, no ice or heat Future Testing and Treatments Planned Having OMT for neck and back Treatment Goals Patient/Caregiver Goals Decrease pain, regain full active use right shoulder PT-OP-C Subjective Start: 01/04/24 17:17 Freq: Status: Active Protocol: Document 01/19/24 09:06 SP (Rec: 01/19/24 09:49 SP [id number]) OP-PT Subjective Patient Comments Patient Comments Pt reports the iontophoresis 6 hr patch to R shld helped pain control with no adverse affects and believes the laser helps as well. She reports has company in town and may need to cancel next week appt but good understanding of HEP to incorporated into her day. PT-OP-F Manual Assessment Start: 01/04/24 17:17 Freq: Status: Active Protocol: Document 01/08/24 14:32 [facility] (Rec: 01/10/24 10:28 [facility] [id number]) Manual Assessments Soft Tissue Assessment Soft Tissue Mobility Assessment tender to palpation anterior GH joint Joint Mobility Assessment Joint Mobility Assessment dec post and inf glide, pain anterior aspect GH with pressure PT-OP-H Neuro Start: 01/04/24 17:17 Freq: Status: Active Protocol: Document 01/08/24 14:32 [facility] (Rec: 01/10/24 10:28 [facility] [id number]) Sensation Evaluation Gross Sensation Gross Sensation WNL PT-OP-J Posture/Palpation/Skin Start: 01/04/24 17:17 Freq: Status: Active Protocol: Document 01/08/24 14:32 [facility] (Rec: 01/10/24 10:28 [facility] [id number]) Posture Evaluation Position Sitting Head/C-Spine Posture Forward Head T-Spine Posture Increased Kyphosis Shoulder Posture (L) Rounded,(R) Rounded Scapula Posture (R) Protracted,(L) Retracted Arm Posture (L) Internally Rotated,(R) Internally Rotated Palpation Assessment Location right shoulder Palpation Location anterior Palpation Findings Muscle Guarding,Tenderness Skin Assessment Other Assessments Skin Assessment Comments intact PT-OP-K Range of Motion Start: 01/04/24 17:17 Freq: Status: Active Protocol: Document 01/08/24 14:32 [facility] (Rec: 01/08/24 15:21 [facility] [id number]) Cervical Spine Range of Motion Cervical Spine Active Comments WFL Shoulder Goniometric Range of Motion Shoulder Left Flexion 165 Extension 22 Abduction 160 External Rotation at 45 degrees 65 Abduction External Rotation at 0 degrees Abduction 60 Internal Rotation Behind Back (text) L4 Right Active Flexion 97 Extension 9 Abduction 120 External Rotation at 45 degrees 21 Abduction External Rotation at 0 degrees Abduction 14 Internal Rotation Behind Back (text) posterior buttock Elbow/Forearm Range of Motion Elbow/Forearm kianna Elbow/Forearm ROM WFL Yes PT-OP-L Special Tests Start: 01/04/24 17:17 Freq: Status: Active Protocol: Document 01/08/24 14:32 [facility] (Rec: 01/10/24 10:28 [facility] [id number]) Special Tests Shoulder Special Tests [place] Test Test Results positive right Grind Labrum Test Results positive right Empty Can Test Results negative Passive ER Rotator Cuff Test Results negative Elevation Impingement Test Results negative PT-OP-M Strength Start: 01/04/24 17:17 Freq: Status: Active Protocol: Document 01/08/24 14:32 SAK (Rec: 01/08/24 15:21 SAK [id number]) Shoulder Strength Shoulder Manual Muscle Testing Left Flexion 4 Good Extension 4 Good Abduction (C5) 4 Good External Rotation 4- Good- Internal Rotation 4 Good Right Flexion 3- Fair- Extension 3+ Fair+ Abduction (C5) 3- Fair- External Rotation 3- Fair- Internal Rotation 4 Good Elbow/Forearm Strength Elbow and Forearm Manual Muscle Testing Right Flexion (C6) 4 Good Extension (C7) 4 Good PT-OP-Q Treatments Start: 01/04/24 17:17 Freq: Status: Active Protocol: Document 01/19/24 09:06 SP (Rec: 01/19/24 09:49 SP [id number]) Therapeutic Exercises Sitting Exercises ball roll Sitting Exercise Name standing first, then sitting for inc ROM Side right Resistance AAROM Equipment Used 65 cm ball on table, seated table slide Reps/Minutes 10x each position Comments cued split stance wt shift Lfwd/Rbck, chest toward table sh ext Side right Resistance AAROM Equipment Used dowel Reps/Minutes 10x Comments cues for painfree ROM, no anterior translation head of huerus sh ER Side right Equipment Used dowel- black PVC Reps/Minutes 10x Comments cues for elbow at side and flexed 90 pulleys Sitting Exercise Name flexion and scaption Side right Resistance AAROM- LUE assist R Reps/Minutes 10x each Comments reports increases ROM/ mobility/decreases tension Standing Exercises shld blade squeeze Standing Exercise Name 1. squeeze 2. R posterior rolls (review self learned from ) Side right Reps/Minutes 5x each Comments no pain, good performance PT-OP-R Modalities Start: 01/04/24 17:17 Freq: Status: Active Protocol: Document 01/19/24 09:06 SP (Rec: 01/19/24 09:49 SP [id number]) Hot Pack/Cold Pack Treatment Hot Pack Location right shoulder Patient Position Hooklying Comments 10 min Infrared Treatment Treatment right anterior shoulder Body Position Hooklying Continuous/Pulsed Continuous Program or Protocal chronic pain and stiffness Comments 58 sec x8 R anterior and lateral shld Iontophoresis Treatment R shld Treatment Medication Dexamethasone (-) Medication Amount (mL) (ml) 1 Medication Dosage 6 hr patch Patient Tolerance Good PT-OP-T Assessment and Plan Start: 01/04/24 17:17 Freq: Status: Active Protocol: Document 01/19/24 09:06 SP (Rec: 01/19/24 09:49 SP [id number]) Physical Therapy Assessment Goals Two Impairment ROM and strength impairments right shoulder Impairment pain as high as 7/10 Short Term Goal (STG) Patient to be instructed in individualized progressive HEP for purposes of increasing her right shoulder ROM and strength STG Duration 02/10/24 Lens Finisher Goal (LTG) Patient will be independnet and compliance with HEP and demonstrate right shoulder ROM WFL and improve strength to at least 4+/5 all muscle groups LTG Duration 04/09/24 Three Impairment Activity tolerance Impairment Quickdash UE score 47% Short Term Goal (STG) Decrease Quickdash score to no greater than 35% as measure of improved functional activity tolerance STG Duration 02/10/24 Correction Goal (LTG) Decrease Quickdash score to no greater than 15% as measure of improved functional activity tolerance and quality of life LTG Duration 04/09/24 One Impairment function-limiting pain Impairment unable to reach overhead or behind her back right UE due to pain ant R shoulder Short Term Goal (STG) Decrease pain by at least 50% to allow patient to return to light activities with left UE STG Duration 02/10/24 Correction Goal (LTG) Decrease pain by at least 75% with to allow patient to return to all prior activies including reaching overhead and behind 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 Cues for elbow at side during AAROM ER seated. Pt states having good response pain reduction to iontophoresis patch after last tx with good understanding of adverse affects to remove and cleanse skin but did not experience this after last tx. Physical Therapy Plan Frequency and Duration Frequency of Treatment 2x/Week Duration of treatment (weeks) 12 Plan of Care Start Date 01/08/24 Plan of Care End Date 04/09/24 Therapeutic Interventions Therapeutic Interventions Home Exercise Program,Joint Mobilizations,Manual Therapy, Patient/Caregiver Education, Self-Care/Home Management,Soft Tissue Mobilization,Taping, Therapeutic Activities, Therapeutic Exercises Modalities Cold Pack/Ice Massage,Electric Stimulation,Hot Packs, Infrared Therapy,Iontophoresis ,Ultrasound Next Visit Focus/Plan Next Note Type Treatment Note Next Visit Plan Assess response 2nd tx of iontophoresis and continue if indicated good benefits pain reduction/allow mobility progress. Review HEP, gentle ther ex for ROM including pulleys as tolerated. Progress gentle isometric shoulder strengthening if tolerated. Manual therapy and modalities PRN pain.
--- NOTE | 2024-01-22 09:58 | PT.OTN ---
Current Diagnoses Primary osteoarthritis, right shoulder (01/22/24) Pain in right shoulder (01/22/24) Weakness (01/22/24) Presence of right artificial hip joint (01/22/24) Physical Therapy Treatment Note PT-OP-A Visit Information Start: 01/04/24 17:17 Freq: Status: Active Protocol: Document 01/22/24 09:08 SP (Rec: 01/22/24 09:49 SP [id number]) Out-Patient Physical Therapy Visit Information Visit Information Visit Type Treatment Note Visit Start Time 09:08 Visit Stop Time 09:58 Visit Number 4 Number of RETAIL STOCKER Visits 2 Evaluation Information Evaluation Date 01/08/24 Precautions Precautions spinal fusions, 2 TKA, left TSA. PT-OP-B Current Condition Start: 01/04/24 17:17 Freq: Status: Active Protocol: Document 01/11/24 13:07 SAK (Rec: 01/11/24 14:01 SAK [id number]) Current Condition History of Current Condition Onset Date April 2023 Current Complaints right shoulder pain History of Current Condition Had to lay on right shoulder and push up with it after GIUSEPPE last fall with gradual onset right shoulder pain and dysfunction. Now reporting pain and weakness, denies N/T. Overall seems to be getting worse, states she babies it. Patient is left handed. States at times she can't even lift a coffee cup. Can't reach overhead, behind her back, has to use adaptive equipement to wash her back. Just got back from trip to [place], had to modify how she managed her luggage. Prior Treatments and Tests None, no ice or heat Future Testing and Treatments Planned Having OMT for neck and back Treatment Goals Patient/Caregiver Goals Decrease pain, regain full active use right shoulder PT-OP-C Subjective Start: 01/04/24 17:17 Freq: Status: Active Protocol: Document 01/22/24 09:08 SP (Rec: 01/22/24 09:49 SP [id number]) OP-PT Subjective Patient Comments Patient Comments Pt reports still having pain: tried to shake out clothes and had sharp pain and RUE dropped when going through clothes to donate. 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 She stated the iontophoresis helped with pain. PT-OP-F Manual Assessment Start: 01/04/24 17:17 Freq: Status: Active Protocol: Document 01/08/24 14:32 [facility] (Rec: 01/10/24 10:28 [facility] [id number]) Manual Assessments Soft Tissue Assessment Soft Tissue Mobility Assessment tender to palpation anterior GH joint Joint Mobility Assessment Joint Mobility Assessment dec post and inf glide, pain anterior aspect GH with pressure PT-OP-H Neuro Start: 01/04/24 17:17 Freq: Status: Active Protocol: Document 01/08/24 14:32 [facility] (Rec: 01/10/24 10:28 [facility] [id number]) Sensation Evaluation Gross Sensation Gross Sensation WNL PT-OP-J Posture/Palpation/Skin Start: 01/04/24 17:17 Freq: Status: Active Protocol: Document 01/08/24 14:32 [facility] (Rec: 01/10/24 10:28 [facility] [id number]) Posture Evaluation Position Sitting Head/C-Spine Posture Forward Head T-Spine Posture Increased Kyphosis Shoulder Posture (L) Rounded,(R) Rounded Scapula Posture (R) Protracted,(L) Retracted Arm Posture (L) Internally Rotated,(R) Internally Rotated Palpation Assessment Location right shoulder Palpation Location anterior Palpation Findings Muscle Guarding,Tenderness Skin Assessment Other Assessments Skin Assessment Comments intact PT-OP-K Range of Motion Start: 01/04/24 17:17 Freq: Status: Active Protocol: Document 01/08/24 14:32 [facility] (Rec: 01/08/24 15:21 [facility] [id number]) Cervical Spine Range of Motion Cervical Spine Active Comments WFL Shoulder Goniometric Range of Motion Shoulder Left Flexion 165 Extension 22 Abduction 160 External Rotation at 45 degrees 65 Abduction External Rotation at 0 degrees Abduction 60 Internal Rotation Behind Back (text) L4 Right Active Flexion 97 Extension 9 Abduction 120 External Rotation at 45 degrees 21 Abduction External Rotation at 0 degrees Abduction 14 Internal Rotation Behind Back (text) posterior buttock Elbow/Forearm Range of Motion Elbow/Forearm kianna Elbow/Forearm ROM WFL Yes PT-OP-L Special Tests Start: 01/04/24 17:17 Freq: Status: Active Protocol: Document 01/08/24 14:32 [facility] (Rec: 01/10/24 10:28 [facility] [id number]) Special Tests Shoulder Special Tests [place] Test Test Results positive right Grind Labrum Test Results positive right Empty Can Test Results negative Passive ER Rotator Cuff Test Results negative Elevation Impingement Test Results negative PT-OP-M Strength Start: 01/04/24 17:17 Freq: Status: Active Protocol: Document 01/08/24 14:32 SAK (Rec: 01/08/24 15:21 SAK [id number]) Shoulder Strength Shoulder Manual Muscle Testing Left Flexion 4 Good Extension 4 Good Abduction (C5) 4 Good External Rotation 4- Good- Internal Rotation 4 Good Right Flexion 3- Fair- Extension 3+ Fair+ Abduction (C5) 3- Fair- External Rotation 3- Fair- Internal Rotation 4 Good Elbow/Forearm Strength Elbow and Forearm Manual Muscle Testing Right Flexion (C6) 4 Good Extension (C7) 4 Good PT-OP-Q Treatments Start: 01/04/24 17:17 Freq: Status: Active Protocol: Document 01/22/24 09:08 SP (Rec: 01/22/24 09:49 SP [id number]) Therapeutic Exercises Sitting Exercises sh ext Side right Resistance AAROM Equipment Used dowel Reps/Minutes 10x Comments cues for painfree ROM, no anterior translation head of huerus sh ER Side right Equipment Used dowel- black PVC, towel under arm Reps/Minutes 10x Comments cues for elbow at side and flexed 90 maintain /c ER pulleys Sitting Exercise Name flexion and scaption Side right Resistance AAROM- LUE assist R Reps/Minutes 10x each Comments reports increases ROM/ mobility/decreases tension Standing Exercises R shoulder isometrics Standing Exercise Name added to HEP: IR, ER, Flex, Ext, ABD Side right Equipment Used provided HO Reps/Minutes 5 SH x5 each Comments elbow at side /c scap retract/ reset, ER better /c scap set shld blade squeeze Standing Exercise Name 1. squeeze 2. R posterior rolls (review self learned from ) Side right Reps/Minutes 5x each Comments no pain, good performance shoulder shrugs Reps/Minutes 5x PT-OP-R Modalities Start: 01/04/24 17:17 Freq: Status: Active Protocol: Document 01/22/24 09:08 SP (Rec: 01/22/24 09:49 SP [id number]) Infrared Treatment Treatment right anterior shoulder Body Position Hooklying Continuous/Pulsed Continuous Program or Protocal chronic pain and stiffness Comments 58 sec x8 R anterior and lateral shld Iontophoresis Treatment R shld Treatment Medication Dexamethasone (-) Medication Amount (mL) (ml) 1 Medication Dosage 6 hr patch Patient Tolerance Good PT-OP-T Assessment and Plan Start: 01/04/24 17:17 Freq: Status: Active Protocol: Document 01/22/24 09:08 SP (Rec: 01/22/24 09:49 SP [id number]) Physical Therapy Assessment Goals Two Impairment ROM and strength impairments right shoulder Impairment pain as high as 7/10 Short Term Goal (STG) Patient to be instructed in individualized progressive HEP for purposes of increasing her right shoulder ROM and strength STG Duration 02/10/24 Custodial Goal (LTG) Patient will be independnet and compliance with HEP and demonstrate right shoulder ROM WFL and improve strength to at least 4+/5 all muscle groups LTG Duration 04/09/24 Three Impairment Activity tolerance Impairment Quickdash UE score 47% Short Term Goal (STG) Decrease Quickdash score to no greater than 35% as measure of improved functional activity tolerance STG Duration 02/10/24 Care Worker Goal (LTG) Decrease Quickdash score to no greater than 15% as measure of improved functional activity tolerance and quality of life LTG Duration 04/09/24 One Impairment function-limiting pain Impairment unable to reach overhead or behind her back right UE due to pain ant R shoulder Short Term Goal (STG) Decrease pain by at least 50% to allow patient to return to light activities with left UE STG Duration 02/10/24 Custodial Goal (LTG) Decrease pain by at least 75% with to allow patient to return to all prior activies including reaching overhead and behind 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 Initiated isometrics in standing for muscle contraction to allow support strengthening while working toward increased ROM. Physical Therapy Plan Frequency and Duration Frequency of Treatment 2x/Week Duration of treatment (weeks) 12 Plan of Care Start Date 01/08/24 Plan of Care End Date 04/09/24 Therapeutic Interventions Therapeutic Interventions Home Exercise Program,Joint Mobilizations,Manual Therapy, Patient/Caregiver Education, Self-Care/Home Management,Soft Tissue Mobilization,Taping, Therapeutic Activities, Therapeutic Exercises Modalities Cold Pack/Ice Massage,Electric Stimulation,Hot Packs, Infrared Therapy,Iontophoresis ,Ultrasound Next Visit Focus/Plan Next Note Type Treatment Note Next Visit Plan Review HEP, gentle ther ex for ROM including pulleys as tolerated & added isometrics. Good response of laser & iontophoresis and continue if indicated good benefits pain reduction/allow mobility progress. Manual therapy and modalities PRN pain.
--- NOTE | 2024-01-31 13:06 | PT.OTN ---
Current Diagnoses Primary osteoarthritis, right shoulder (01/31/24) Pain in right shoulder (01/31/24) Weakness (01/31/24) Presence of right artificial hip joint (01/31/24) Physical Therapy Treatment Note PT-OP-A Visit Information Start: 01/04/24 17:17 Freq: Status: Active Protocol: Document 01/31/24 09:30 [facility] (Rec: 01/31/24 10:37 [facility] [id number]) Out-Patient Physical Therapy Visit Information Visit Information Visit Type Treatment Note Visit Start Time 09:45 Visit Stop Time 10:40 Visit Number 5 Number of RESPIRATORY THERAPY AIDE Visits 0 Precautions Precautions spinal fusions, 2 TKA, left TSA. PT-OP-B Current Condition Start: 01/04/24 17:17 Freq: Status: Active Protocol: Document 01/11/24 13:07 [facility] (Rec: 01/11/24 14:01 [facility] [id number]) Current Condition History of Current Condition Onset Date April 2023 Current Complaints right shoulder pain History of Current Condition Had to lay on right shoulder and push up with it after GIUSEPPE last fall with gradual onset right shoulder pain and dysfunction. Now reporting pain and weakness, denies N/T. Overall seems to be getting worse, states she babies it. Patient is left handed. States at times she can't even lift a coffee cup. Can't reach overhead, behind her back, has to use adaptive equipement to wash her back. Just got back from trip to [place], had to modify how she managed her luggage. Prior Treatments and Tests None, no ice or heat Future Testing and Treatments Planned Having OMT for neck and back Treatment Goals Patient/Caregiver Goals Decrease pain, regain full active use right shoulder PT-OP-C Subjective Start: 01/04/24 17:17 Freq: Status: Active Protocol: Document 01/31/24 09:30 [facility] (Rec: 01/31/24 10:37 [facility] [id number]) OP-PT Subjective Patient Comments Patient Comments Reports isometrics helpful, still doesn't feel ready for resistance bands. Hasn't been doing the other exercises, has had company. PT-OP-F Manual Assessment Start: 01/04/24 17:17 Freq: Status: Active Protocol: Document 01/08/24 14:32 [facility] (Rec: 01/10/24 10:28 [facility] [id number]) Manual Assessments Soft Tissue Assessment Soft Tissue Mobility Assessment tender to palpation anterior GH joint Joint Mobility Assessment Joint Mobility Assessment dec post and inf glide, pain anterior aspect GH with pressure PT-OP-H Neuro Start: 01/04/24 17:17 Freq: Status: Active Protocol: Document 01/08/24 14:32 [facility] (Rec: 01/10/24 10:28 [facility] [id number]) Sensation Evaluation Gross Sensation Gross Sensation WNL PT-OP-J Posture/Palpation/Skin Start: 01/04/24 17:17 Freq: Status: Active Protocol: Document 01/08/24 14:32 [facility] (Rec: 01/10/24 10:28 [facility] [id number]) Posture Evaluation Position Sitting Head/C-Spine Posture Forward Head T-Spine Posture Increased Kyphosis Shoulder Posture (L) Rounded,(R) Rounded Scapula Posture (R) Protracted,(L) Retracted Arm Posture (L) Internally Rotated,(R) Internally Rotated Palpation Assessment Location right shoulder Palpation Location anterior Palpation Findings Muscle Guarding,Tenderness Skin Assessment Other Assessments Skin Assessment Comments intact PT-OP-K Range of Motion Start: 01/04/24 17:17 Freq: Status: Active Protocol: Document 01/08/24 14:32 [facility] (Rec: 01/08/24 15:21 [facility] [id number]) Cervical Spine Range of Motion Cervical Spine Active Comments WFL Shoulder Goniometric Range of Motion Shoulder Left Flexion 165 Extension 22 Abduction 160 External Rotation at 45 degrees 65 Abduction External Rotation at 0 degrees Abduction 60 Internal Rotation Behind Back (text) L4 Right Active Flexion 97 Extension 9 Abduction 120 External Rotation at 45 degrees 21 Abduction External Rotation at 0 degrees Abduction 14 Internal Rotation Behind Back (text) posterior buttock Elbow/Forearm Range of Motion Elbow/Forearm kianna Elbow/Forearm ROM WFL Yes PT-OP-L Special Tests Start: 01/04/24 17:17 Freq: Status: Active Protocol: Document 01/08/24 14:32 [facility] (Rec: 01/10/24 10:28 [facility] [id number]) Special Tests Shoulder Special Tests [place] Test Test Results positive right Grind Labrum Test Results positive right Empty Can Test Results negative Passive ER Rotator Cuff Test Results negative Elevation Impingement Test Results negative PT-OP-M Strength Start: 01/04/24 17:17 Freq: Status: Active Protocol: Document 01/08/24 14:32 [facility] (Rec: 01/08/24 15:21 [facility] [id number]) Shoulder Strength Shoulder Manual Muscle Testing Left Flexion 4 Good Extension 4 Good Abduction (C5) 4 Good External Rotation 4- Good- Internal Rotation 4 Good Right Flexion 3- Fair- Extension 3+ Fair+ Abduction (C5) 3- Fair- External Rotation 3- Fair- Internal Rotation 4 Good Elbow/Forearm Strength Elbow and Forearm Manual Muscle Testing Right Flexion (C6) 4 Good Extension (C7) 4 Good PT-OP-Q Treatments Start: 01/04/24 17:17 Freq: Status: Active Protocol: Document 01/31/24 09:30 [facility] (Rec: 01/31/24 10:37 [facility] [id number]) Therapeutic Exercises Sitting Exercises pulleys Sitting Exercise Name flexion and scaption Side right Resistance AAROM- LUE assist R Reps/Minutes 10x each Comments reports increases ROM/ mobility/decreases tension Standing Exercises R shoulder isometrics Standing Exercise Name added to HEP: IR, ER, Flex, Ext, ABD Side right Equipment Used provided HO Reps/Minutes 5 SH x5 each Comments elbow at side /c scap retract/ reset, ER better /c scap set PT-OP-R Modalities Start: 01/04/24 17:17 Freq: Status: Active Protocol: Document 01/31/24 09:30 [facility] (Rec: 01/31/24 13:06 [facility] [id number]) Hot Pack/Cold Pack Treatment Hot Pack Location right shoulder Patient Position Hooklying Comments 15 min Iontophoresis Treatment R shld Treatment Medication Dexamethasone (-) Medication Amount (mL) (ml) 1 Medication Dosage 6 hr patch Patient Tolerance Good PT-OP-T Assessment and Plan Start: 01/04/24 17:17 Freq: Status: Active Protocol: Document 01/31/24 09:30 [facility] (Rec: 01/31/24 10:37 [facility] [id number]) Physical Therapy Assessment Goals Two Impairment ROM and strength impairments right shoulder Impairment pain as high as 01/30 Short Term Goal (STG) Patient to be instructed in individualized progressive HEP for purposes of increasing her right shoulder ROM and strength STG Duration 02/10/24 [facility] Goal (LTG) Patient will be independnet and compliance with HEP and demonstrate right shoulder ROM WFL and improve strength to at least 4+/5 all muscle groups LTG Duration 04/09/24 Three Impairment Activity tolerance Impairment Quickdash UE score 47% Short Term Goal (STG) Decrease Quickdash score to no greater than 35% as measure of improved functional activity tolerance STG Duration 02/10/24 [facility] Goal (LTG) Decrease Quickdash score to no greater than 15% as measure of improved functional activity tolerance and quality of life LTG Duration 04/09/24 One Impairment function-limiting pain Impairment unable to reach overhead or behind her back right UE due to pain ant R shoulder Short Term Goal (STG) Decrease pain by at least 50% to allow patient to return to light activities with left UE STG Duration 02/10/24 [facility] Goal (LTG) Decrease pain by at least 75% with to allow patient to return to all prior activies including reaching overhead and behind her back and working at [email or web address] without an increase in pain LTG Duration 04/09/24 Assessment Summary Assessment Patient compliance to HEP appears inconsistent and incomplete, cues for postural correction. Reports benefit from laser and iontophoresis. Initiated GH inferior and posterior glide with fair tolerance. Encouraged no quick movements right shoulder at this time. Cues prior to isometric ex set core and posture. Physical Therapy Plan Frequency and Duration Frequency of Treatment 2x/Week Duration of treatment (weeks) 12 Plan of Care Start Date 01/08/24 Plan of Care End Date 04/09/24 Therapeutic Interventions Therapeutic Interventions Home Exercise Program,Joint Mobilizations,Manual Therapy, Patient/Caregiver Education, Self-Care/Home Management,Soft Tissue Mobilization,Taping, Therapeutic Activities, Therapeutic Exercises Modalities Cold Pack/Ice Massage,Electric Stimulation,Hot Packs, Infrared Therapy,Iontophoresis ,Ultrasound Next Visit Focus/Plan Next Note Type Treatment Note Next Visit Plan Continue gentle ther ex for right shoulder ROM and strengthening, encourage increased and complete compliance to HEP. GH jt mob focused on inf glide, and posterior glide, possible MWM for right shoulder ER.
--- NOTE | 2024-02-05 11:59 | PT.OTN ---
Current Diagnoses Primary osteoarthritis, right shoulder (02/05/24) Pain in right shoulder (02/05/24) Weakness (02/05/24) Presence of right artificial hip joint (02/05/24) Physical Therapy Treatment Note PT-OP-A Visit Information Start: 01/04/24 17:17 Freq: Status: Active Protocol: Document 02/05/24 09:46 [facility] (Rec: 02/05/24 11:59 [facility] [id number]) Out-Patient Physical Therapy Visit Information Visit Information Visit Type Treatment Note Visit Start Time 09:47 Visit Stop Time 10:40 Visit Number 6 Number of TRAINING INSTRUCTOR Visits 0 Evaluation Information Evaluation Date 01/08/24 Precautions Precautions spinal fusions, 2 TKA, left TSA. PT-OP-B Current Condition Start: 01/04/24 17:17 Freq: Status: Active Protocol: Document 01/11/24 13:07 [facility]AK (Rec: 01/11/24 14:01 [facility] [id number]) Current Condition History of Current Condition Onset Date April 2023 Current Complaints right shoulder pain History of Current Condition Had to lay on right shoulder and push up with it after GIUSEPPE last fall with gradual onset right shoulder pain and dysfunction. Now reporting pain and weakness, denies N/T. Overall seems to be getting worse, states she babies it. Patient is left handed. States at times she can't even lift a coffee cup. Can't reach overhead, behind her back, has to use adaptive equipement to wash her back. Just got back from trip to [place], had to modify how she managed her luggage. Prior Treatments and Tests None, no ice or heat Future Testing and Treatments Planned Having OMT for neck and back Treatment Goals Patient/Caregiver Goals Decrease pain, regain full active use right shoulder PT-OP-C Subjective Start: 01/04/24 17:17 Freq: Status: Active Protocol: Document 02/05/24 09:46 [facility] (Rec: 02/05/24 11:59 [facility] [id number]) OP-PT Subjective Patient Comments Patient Comments NO new c/o. PT-OP-F Manual Assessment Start: 01/04/24 17:17 Freq: Status: Active Protocol: Document 01/08/24 14:32 [facility] (Rec: 01/10/24 10:28 [facility] [id number]) Manual Assessments Soft Tissue Assessment Soft Tissue Mobility Assessment tender to palpation anterior GH joint Joint Mobility Assessment Joint Mobility Assessment dec post and inf glide, pain anterior aspect GH with pressure PT-OP-H Neuro Start: 01/04/24 17:17 Freq: Status: Active Protocol: Document 01/08/24 14:32 [facility] (Rec: 01/10/24 10:28 [facility] [id number]) Sensation Evaluation Gross Sensation Gross Sensation WNL PT-OP-J Posture/Palpation/Skin Start: 01/04/24 17:17 Freq: Status: Active Protocol: Document 01/08/24 14:32 [facility] (Rec: 01/10/24 10:28 [facility] [id number]) Posture Evaluation Position Sitting Head/C-Spine Posture Forward Head T-Spine Posture Increased Kyphosis Shoulder Posture (L) Rounded,(R) Rounded Scapula Posture (R) Protracted,(L) Retracted Arm Posture (L) Internally Rotated,(R) Internally Rotated Palpation Assessment Location right shoulder Palpation Location anterior Palpation Findings Muscle Guarding,Tenderness Skin Assessment Other Assessments Skin Assessment Comments intact PT-OP-K Range of Motion Start: 01/04/24 17:17 Freq: Status: Active Protocol: Document 01/08/24 14:32 [facility] (Rec: 01/08/24 15:21 [facility] [id number]) Cervical Spine Range of Motion Cervical Spine Active Comments WFL Shoulder Goniometric Range of Motion Shoulder Left Flexion 165 Extension 22 Abduction 160 External Rotation at 45 degrees 65 Abduction External Rotation at 0 degrees Abduction 60 Internal Rotation Behind Back (text) L4 Right Active Flexion 97 Extension 9 Abduction 120 External Rotation at 45 degrees 21 Abduction External Rotation at 0 degrees Abduction 14 Internal Rotation Behind Back (text) posterior buttock Elbow/Forearm Range of Motion Elbow/Forearm kianna Elbow/Forearm ROM WFL Yes PT-OP-L Special Tests Start: 01/04/24 17:17 Freq: Status: Active Protocol: Document 01/08/24 14:32 [facility] (Rec: 01/10/24 10:28 [facility] [id number]) Special Tests Shoulder Special Tests [place] Test Test Results positive right Grind Labrum Test Results positive right Empty Can Test Results negative Passive ER Rotator Cuff Test Results negative Elevation Impingement Test Results negative PT-OP-M Strength Start: 01/04/24 17:17 Freq: Status: Active Protocol: Document 01/08/24 14:32 [facility] (Rec: 01/08/24 15:21 [facility] [id number]) Shoulder Strength Shoulder Manual Muscle Testing Left Flexion 4 Good Extension 4 Good Abduction (C5) 4 Good External Rotation 4- Good- Internal Rotation 4 Good Right Flexion 3- Fair- Extension 3+ Fair+ Abduction (C5) 3- Fair- External Rotation 3- Fair- Internal Rotation 4 Good Elbow/Forearm Strength Elbow and Forearm Manual Muscle Testing Right Flexion (C6) 4 Good Extension (C7) 4 Good PT-OP-Q Treatments Start: 01/04/24 17:17 Freq: Status: Active Protocol: Document 02/05/24 09:46 [facility] (Rec: 02/05/24 11:59 [facility] [id number]) Therapeutic Exercises Supine Exercises shld flex Equipment Used wand Reps/Minutes 10x shoulder flex Equipment Used wand Reps/Minutes 10x Sidelying Exercises open book Reps/Minutes 5x5 Sitting Exercises sh ER Side right Equipment Used dowel- black PVC, towel under arm Reps/Minutes 10x Comments cues for elbow at side and flexed 90 maintain /c ER pulleys Sitting Exercise Name flexion and scaption Side right Resistance AAROM- LUE assist R Reps/Minutes 10x each Comments reports increases ROM/ mobility/decreases tension Standing Exercises arm swing Reps/Minutes 10x wall posture Reps/Minutes 5X5 Comments verbal and tactile cues wall slide Equipment Used furniture slide Reps/Minutes 10x5 counter stretch Reps/Minutes 5x5 Manual Therapy Treatment Joint Mobilizations scap Direction ab/ad/sup/inf Grade III Body Position side post glide Joint GH Grade II Body Position Hooklying Reps/Duration 2 min inf glide Joint GH Grade II Body Position hook Reps/Duration 2 min Self-Care/Home Management Treatment Education Patient Education Home Exercise Program,Pain Management,Posture PT-OP-R Modalities Start: 01/04/24 17:17 Freq: Status: Active Protocol: Document 02/05/24 09:46 [facility] (Rec: 02/05/24 11:59 [facility] [id number]) Hot Pack/Cold Pack Treatment Hot Pack Location right shoulder Patient Position Hooklying Comments 15 min Infrared Treatment Treatment right anterior shoulder Body Position Hooklying Continuous/Pulsed Continuous Program or Protocal chronic pain and stiffness Comments 58 sec x8 R anterior and lateral shld Iontophoresis Treatment R shld Treatment Medication Dexamethasone (-) Medication Amount (mL) (ml) 1 Medication Dosage 6 hr patch Patient Tolerance Good PT-OP-T Assessment and Plan Start: 01/04/24 17:17 Freq: Status: Active Protocol: Document 02/05/24 09:46 [facility] (Rec: 02/05/24 11:59 [facility] [id number]) Physical Therapy Assessment Goals Two Impairment ROM and strength impairments right shoulder Impairment pain as high as 7/10 Short Term Goal (STG) Patient to be instructed in individualized progressive HEP for purposes of increasing her right shoulder ROM and strength STG Duration 02/10/24 [facility] Goal (LTG) Patient will be independnet and compliance with HEP and demonstrate right shoulder ROM WFL and improve strength to at least 4+/5 all muscle groups LTG Duration 04/09/24 Three Impairment Activity tolerance Impairment Quickdash UE score 47% Short Term Goal (STG) Decrease Quickdash score to no greater than 35% as measure of improved functional activity tolerance STG Duration 02/10/24 [facility] Goal (LTG) Decrease Quickdash score to no greater than 15% as measure of improved functional activity tolerance and quality of life LTG Duration 04/09/24 One Impairment function-limiting pain Impairment unable to reach overhead or behind her back right UE due to pain ant R shoulder Short Term Goal (STG) Decrease pain by at least 50% to allow patient to return to light activities with left UE STG Duration 02/10/24 [facility] Goal (LTG) Decrease pain by at least 75% with to allow patient to return to all prior activies including reaching overhead and behind her back and working at [employer] without an increase in pain LTG Duration 04/09/24 Assessment Summary Assessment Improved right shoulder flex to 153 today after treatment, appeared to benefit from scap mobilization. Improving compliance HEP Physical Therapy Plan Frequency and Duration Frequency of Treatment 2x/Week Duration of treatment (weeks) 12 Plan of Care Start Date 01/08/24 Plan of Care End Date 04/09/24 Therapeutic Interventions Therapeutic Interventions Home Exercise Program,Joint Mobilizations,Manual Therapy, Patient/Caregiver Education, Self-Care/Home Management,Soft Tissue Mobilization,Taping, Therapeutic Activities, Therapeutic Exercises Modalities Cold Pack/Ice Massage,Electric Stimulation,Hot Packs, Infrared Therapy,Iontophoresis ,Ultrasound Next Visit Focus/Plan Next Note Type Treatment Note Next Visit Plan Continue gentle ther ex for right shoulder ROM and strengthening, encourage increased and complete compliance to HEP. GH jt mob focused on inf glide, and posterior glide, possible MWM for right shoulder ER.
--- NOTE | 2024-02-08 14:03 | PT.OTN ---
Current Diagnoses Primary osteoarthritis, right shoulder (02/08/24) Pain in right shoulder (02/08/24) Weakness (02/08/24) Presence of right artificial hip joint (02/08/24) Physical Therapy Treatment Note PT-OP-A Visit Information Start: 01/04/24 17:17 Freq: Status: Active Protocol: Document 02/08/24 09:53 SAK (Rec: 02/08/24 10:32 SAK [id number]) Out-Patient Physical Therapy Visit Information Visit Information Visit Type Treatment Note Visit Start Time 09:45 Visit Stop Time 10:40 Visit Number 7 Evaluation Information Evaluation Date 01/08/24 Precautions Precautions spinal fusions, 2 TKA, left TSA. PT-OP-B Current Condition Start: 01/04/24 17:17 Freq: Status: Active Protocol: Document 01/11/24 13:07 SAK (Rec: 01/11/24 14:01 SAK [id number]) Current Condition History of Current Condition Onset Date April 2023 Current Complaints right shoulder pain History of Current Condition Had to lay on right shoulder and push up with it after GIUSEPPE last fall with gradual onset right shoulder pain and dysfunction. Now reporting pain and weakness, denies N/T. Overall seems to be getting worse, states she babies it. Patient is left handed. States at times she can't even lift a coffee cup. Can't reach overhead, behind her back, has to use adaptive equipement to wash her back. Just got back from trip to [place], had to modify how she managed her luggage. Prior Treatments and Tests None, no ice or heat Future Testing and Treatments Planned Having OMT for neck and back Treatment Goals Patient/Caregiver Goals Decrease pain, regain full active use right shoulder PT-OP-C Subjective Start: 01/04/24 17:17 Freq: Status: Active Protocol: Document 02/08/24 09:53 SAK (Rec: 02/08/24 10:32 SAK [id number]) OP-PT Subjective Patient Comments Patient Comments Pain dec Patient Reported Progress Improving PT-OP-F Manual Assessment Start: 01/04/24 17:17 Freq: Status: Active Protocol: Document 01/08/24 14:32 SAK (Rec: 01/10/24 10:28 SAK [id number]) Manual Assessments Soft Tissue Assessment Soft Tissue Mobility Assessment tender to palpation anterior GH joint Joint Mobility Assessment Joint Mobility Assessment dec post and inf glide, pain anterior aspect GH with pressure PT-OP-H Neuro Start: 01/04/24 17:17 Freq: Status: Active Protocol: Document 01/08/24 14:32 [facility] (Rec: 01/10/24 10:28 [facility] [id number]) Sensation Evaluation Gross Sensation Gross Sensation WNL PT-OP-J Posture/Palpation/Skin Start: 01/04/24 17:17 Freq: Status: Active Protocol: Document 01/08/24 14:32 [facility] (Rec: 01/10/24 10:28 [facility] [id number]) Posture Evaluation Position Sitting Head/C-Spine Posture Forward Head T-Spine Posture Increased Kyphosis Shoulder Posture (L) Rounded,(R) Rounded Scapula Posture (R) Protracted,(L) Retracted Arm Posture (L) Internally Rotated,(R) Internally Rotated Palpation Assessment Location right shoulder Palpation Location anterior Palpation Findings Muscle Guarding,Tenderness Skin Assessment Other Assessments Skin Assessment Comments intact PT-OP-K Range of Motion Start: 01/04/24 17:17 Freq: Status: Active Protocol: Document 01/08/24 14:32 [facility] (Rec: 01/08/24 15:21 [facility] [id number]) Cervical Spine Range of Motion Cervical Spine Active Comments WFL Shoulder Goniometric Range of Motion Shoulder Left Flexion 165 Extension 22 Abduction 160 External Rotation at 45 degrees 65 Abduction External Rotation at 0 degrees Abduction 60 Internal Rotation Behind Back (text) L4 Right Active Flexion 97 Extension 9 Abduction 120 External Rotation at 45 degrees 21 Abduction External Rotation at 0 degrees Abduction 14 Internal Rotation Behind Back (text) posterior buttock Elbow/Forearm Range of Motion Elbow/Forearm kianna Elbow/Forearm ROM WFL Yes PT-OP-L Special Tests Start: 01/04/24 17:17 Freq: Status: Active Protocol: Document 01/08/24 14:32 [facility] (Rec: 01/10/24 10:28 [facility] [id number]) Special Tests Shoulder Special Tests [place] Test Test Results positive right Grind Labrum Test Results positive right Empty Can Test Results negative Passive ER Rotator Cuff Test Results negative Elevation Impingement Test Results negative PT-OP-M Strength Start: 01/04/24 17:17 Freq: Status: Active Protocol: Document 01/08/24 14:32 [facility] (Rec: 01/08/24 15:21 [facility] [id number]) Shoulder Strength Shoulder Manual Muscle Testing Left Flexion 4 Good Extension 4 Good Abduction (C5) 4 Good External Rotation 4- Good- Internal Rotation 4 Good Right Flexion 3- Fair- Extension 3+ Fair+ Abduction (C5) 3- Fair- External Rotation 3- Fair- Internal Rotation 4 Good Elbow/Forearm Strength Elbow and Forearm Manual Muscle Testing Right Flexion (C6) 4 Good Extension (C7) 4 Good PT-OP-Q Treatments Start: 01/04/24 17:17 Freq: Status: Active Protocol: Document 02/08/24 09:53 [facility] (Rec: 02/08/24 10:32 [facility] [id number]) Therapeutic Exercises Supine Exercises shld flex Equipment Used wand Reps/Minutes 10x shoulder flex Equipment Used wand Reps/Minutes 10x Sitting Exercises sh ER Side right Equipment Used dowel- black PVC, towel under arm Reps/Minutes 10x Comments cues for elbow at side and flexed 90 maintain /c ER pulleys Sitting Exercise Name flexion and scaption Side right Resistance AAROM- LUE assist R Reps/Minutes 10x each Comments reports increases ROM/ mobility/decreases tension Standing Exercises TB Standing Exercise Name row, sh ext, sh ER Resistance L1 TB Reps/Minutes 10x ea Comments cues for scapular activation, neutral posture shld blade squeeze Standing Exercise Name 1. squeeze 2. R posterior rolls (review self learned from ) Side right Reps/Minutes 5x each Comments no pain, good performance Manual Therapy Treatment Joint Mobilizations scap Direction ab/ad/sup/inf Grade III Body Position side Self-Care/Home Management Treatment Education Patient Education Home Exercise Program,Pain Management,Posture PT-OP-R Modalities Start: 01/04/24 17:17 Freq: Status: Active Protocol: Document 02/05/24 09:46 [facility] (Rec: 02/05/24 11:59 [facility] [id number]) Hot Pack/Cold Pack Treatment Hot Pack Location right shoulder Patient Position Hooklying Comments 15 min Infrared Treatment Treatment right anterior shoulder Body Position Hooklying Continuous/Pulsed Continuous Program or Protocal chronic pain and stiffness Comments 58 sec x8 R anterior and lateral shld Iontophoresis Treatment R shld Treatment Medication Dexamethasone (-) Medication Amount (mL) (ml) 1 Medication Dosage 6 hr patch Patient Tolerance Good PT-OP-T Assessment and Plan Start: 01/04/24 17:17 Freq: Status: Active Protocol: Document 02/08/24 09:53 [facility] (Rec: 02/08/24 10:32 [facility] [id number]) Physical Therapy Assessment Goals Two Impairment ROM and strength impairments right shoulder Impairment pain as high as / Short Term Goal (STG) Patient to be instructed in individualized progressive HEP for purposes of increasing her right shoulder ROM and strength STG Duration 02/10/24 Residential Goal (LTG) Patient will be independnet and compliance with HEP and demonstrate right shoulder ROM WFL and improve strength to at least 4+/5 all muscle groups LTG Duration 04/09/24 Three Impairment Activity tolerance Impairment Quickdash UE score 47% Short Term Goal (STG) Decrease Quickdash score to no greater than 35% as measure of improved functional activity tolerance STG Duration 02/10/24 Student Support Counselor Goal (LTG) Decrease Quickdash score to no greater than 15% as measure of improved functional activity tolerance and quality of life LTG Duration 04/09/24 One Impairment function-limiting pain Impairment unable to reach overhead or behind her back right UE due to pain ant R shoulder Short Term Goal (STG) Decrease pain by at least 50% to allow patient to return to light activities with left UE STG Duration 02/10/24 Student Support Counselor Goal (LTG) Decrease pain by at least 75% with to allow patient to return to all prior activies including reaching overhead and behind her back and working at [employer] without an increase in pain LTG Duration 04/09/24 Assessment Summary Assessment Patient reporting decrease in pain, though with reaching can still be severe. Right shoulder flex 157 deg end of treatment, gradual improvement . Improved scapular mobility today. Improved HEP compliance. Physical Therapy Plan Frequency and Duration Frequency of Treatment 2x/Week Duration of treatment (weeks) 12 Plan of Care Start Date 01/08/24 Plan of Care End Date 04/09/24 Therapeutic Interventions Therapeutic Interventions Home Exercise Program,Joint Mobilizations,Manual Therapy, Patient/Caregiver Education, Self-Care/Home Management,Soft Tissue Mobilization,Taping, Therapeutic Activities, Therapeutic Exercises Modalities Cold Pack/Ice Massage,Electric Stimulation,Hot Packs, Infrared Therapy,Iontophoresis ,Ultrasound Next Visit Focus/Plan Next Note Type Treatment Note Next Visit Plan Continue gentle ther ex for right shoulder ROM and strengthening, encourage increased and complete compliance to HEP. GH jt mob focused on inf glide, and posterior glide, possible MWM for right shoulder ER.
--- NOTE | 2024-02-12 13:32 | PT.OTN ---
Current Diagnoses Primary osteoarthritis, right shoulder (02/12/24) Pain in right shoulder (02/12/24) Weakness (02/12/24) Presence of right artificial hip joint (02/12/24) Physical Therapy Treatment Note PT-OP-A Visit Information Start: 01/04/24 17:17 Freq: Status: Active Protocol: Document 02/12/24 08:15 SAK (Rec: 02/12/24 09:01 SAK [id number]) Out-Patient Physical Therapy Visit Information Visit Information Visit Type Treatment Note Visit Start Time 08:15 Visit Stop Time 09:10 Visit Number 8 Evaluation Information Evaluation Date 01/08/24 Precautions Precautions spinal fusions, 2 TKA, left TSA. PT-OP-B Current Condition Start: 01/04/24 17:17 Freq: Status: Active Protocol: Document 01/11/24 13:07 SAK (Rec: 01/11/24 14:01 SAK [id number]) Current Condition History of Current Condition Onset Date April 2023 Current Complaints right shoulder pain History of Current Condition Had to lay on right shoulder and push up with it after GIUSEPPE last fall with gradual onset right shoulder pain and dysfunction. Now reporting pain and weakness, denies N/T. Overall seems to be getting worse, states she babies it. Patient is left handed. States at times she can't even lift a coffee cup. Can't reach overhead, behind her back, has to use adaptive equipement to wash her back. Just got back from trip to [place], had to modify how she managed her luggage. Prior Treatments and Tests None, no ice or heat Future Testing and Treatments Planned Having OMT for neck and back Treatment Goals Patient/Caregiver Goals Decrease pain, regain full active use right shoulder PT-OP-C Subjective Start: 01/04/24 17:17 Freq: Status: Active Protocol: Document 02/12/24 08:15 SAK (Rec: 02/12/24 09:01 SAK [id number]) OP-PT Subjective Patient Comments Patient Comments Patient reports dropped caraffe of water at restaurant due to severe pain when reached out for caraffe. Not bad when keeps elbow by her side, minimal ability to use overhead and can't reach behind her back. Admits to limited compliance to HEP. PT-OP-F Manual Assessment Start: 01/04/24 17:17 Freq: Status: Active Protocol: Document 01/08/24 14:32 [facility] (Rec: 01/10/24 10:28 [facility] [id number]) Manual Assessments Soft Tissue Assessment Soft Tissue Mobility Assessment tender to palpation anterior GH joint Joint Mobility Assessment Joint Mobility Assessment dec post and inf glide, pain anterior aspect GH with pressure PT-OP-H Neuro Start: 01/04/24 17:17 Freq: Status: Active Protocol: Document 01/08/24 14:32 [facility] (Rec: 01/10/24 10:28 [facility] [id number]) Sensation Evaluation Gross Sensation Gross Sensation WNL PT-OP-J Posture/Palpation/Skin Start: 01/04/24 17:17 Freq: Status: Active Protocol: Document 01/08/24 14:32 [facility] (Rec: 01/10/24 10:28 [facility] [id number]) Posture Evaluation Position Sitting Head/C-Spine Posture Forward Head T-Spine Posture Increased Kyphosis Shoulder Posture (L) Rounded,(R) Rounded Scapula Posture (R) Protracted,(L) Retracted Arm Posture (L) Internally Rotated,(R) Internally Rotated Palpation Assessment Location right shoulder Palpation Location anterior Palpation Findings Muscle Guarding,Tenderness Skin Assessment Other Assessments Skin Assessment Comments intact PT-OP-K Range of Motion Start: 01/04/24 17:17 Freq: Status: Active Protocol: Document 01/08/24 14:32 [facility] (Rec: 01/08/24 15:21 [facility] [id number]) Cervical Spine Range of Motion Cervical Spine Active Comments WFL Shoulder Goniometric Range of Motion Shoulder Left Flexion 165 Extension 22 Abduction 160 External Rotation at 45 degrees 65 Abduction External Rotation at 0 degrees Abduction 60 Internal Rotation Behind Back (text) L4 Right Active Flexion 97 Extension 9 Abduction 120 External Rotation at 45 degrees 21 Abduction External Rotation at 0 degrees Abduction 14 Internal Rotation Behind Back (text) posterior buttock Elbow/Forearm Range of Motion Elbow/Forearm kianna Elbow/Forearm ROM WFL Yes PT-OP-L Special Tests Start: 01/04/24 17:17 Freq: Status: Active Protocol: Document 01/08/24 14:32 [facility] (Rec: 01/10/24 10:28 [facility] [id number]) Special Tests Shoulder Special Tests [place] Test Test Results positive right Grind Labrum Test Results positive right Empty Can Test Results negative Passive ER Rotator Cuff Test Results negative Elevation Impingement Test Results negative PT-OP-M Strength Start: 01/04/24 17:17 Freq: Status: Active Protocol: Document 01/08/24 14:32 [facility] (Rec: 01/08/24 15:21 [facility] [id number]) Shoulder Strength Shoulder Manual Muscle Testing Left Flexion 4 Good Extension 4 Good Abduction (C5) 4 Good External Rotation 4- Good- Internal Rotation 4 Good Right Flexion 3- Fair- Extension 3+ Fair+ Abduction (C5) 3- Fair- External Rotation 3- Fair- Internal Rotation 4 Good Elbow/Forearm Strength Elbow and Forearm Manual Muscle Testing Right Flexion (C6) 4 Good Extension (C7) 4 Good PT-OP-Q Treatments Start: 01/04/24 17:17 Freq: Status: Active Protocol: Document 02/12/24 08:15 [facility] (Rec: 02/12/24 09:01 [facility] [id number]) Therapeutic Exercises Supine Exercises shld flex Equipment Used wand Reps/Minutes 10x shld ER Equipment Used dowel, towel roll Reps/Minutes 10x Comments cues for keeping elbow bent 90 degrees, limited ROM Sidelying Exercises open book Reps/Minutes 5x5 Sitting Exercises sh ER Side right Equipment Used dowel- black PVC, towel under arm Reps/Minutes 10x Comments cues for elbow at side and flexed 90 maintain /c ER pulleys Sitting Exercise Name flexion and scaption Side right Resistance AAROM- LUE assist R Reps/Minutes 10x each Comments reports increases ROM/ mobility/decreases tension Standing Exercises TB Standing Exercise Name row, sh ext, sh ER IR Resistance L1 TB Reps/Minutes 10x ea Comments cues for scapular activation, neutral posture shld blade squeeze Standing Exercise Name 1. squeeze 2. R posterior rolls shoulder shrugs Reps/Minutes 5x long axis sh ER/IR Reps/Minutes 5x Comments painfree Self-Care/Home Management Treatment Education Patient Education Home Exercise Program,Pain Management,Posture PT-OP-R Modalities Start: 01/04/24 17:17 Freq: Status: Active Protocol: Document 02/12/24 08:15 [facility] (Rec: 02/12/24 09:01 [facility] [id number]) Infrared Treatment Treatment right anterior shoulder Body Position Hooklying Continuous/Pulsed Continuous Program or Protocal chronic pain and stiffness Comments 58 sec x8 R anterior and lateral shld Iontophoresis Treatment R shld Treatment Medication Dexamethasone (-) Medication Amount (mL) (ml) 1 Medication Dosage 6 hr patch Patient Tolerance Good PT-OP-T Assessment and Plan Start: 01/04/24 17:17 Freq: Status: Active Protocol: Document 02/12/24 08:15 [facility] (Rec: 02/12/24 09:01 [facility] [id number]) Physical Therapy Assessment Goals Two Impairment ROM and strength impairments right shoulder Impairment pain as high as 7/10 Short Term Goal (STG) Patient to be instructed in individualized progressive HEP for purposes of increasing her right shoulder ROM and strength STG Duration 02/10/24 Senior Care Goal (LTG) Patient will be independnet and compliance with HEP and demonstrate right shoulder ROM WFL and improve strength to at least 4+/5 all muscle groups LTG Duration 04/09/24 Three Impairment Activity tolerance Impairment Quickdash UE score 47% Short Term Goal (STG) Decrease Quickdash score to no greater than 35% as measure of improved functional activity tolerance STG Duration 02/10/24 Senior Medical Technologist Goal (LTG) Decrease Quickdash score to no greater than 15% as measure of improved functional activity tolerance and quality of life LTG Duration 04/09/24 One Impairment function-limiting pain Impairment unable to reach overhead or behind her back right UE due to pain ant R shoulder Short Term Goal (STG) Decrease pain by at least 50% to allow patient to return to light activities with left UE STG Duration 02/10/24 Senior Medical Technologist Goal (LTG) Decrease pain by at least 75% with to allow patient to return to all prior activies including reaching overhead and behind her back and working at [employer] without an increase in pain LTG Duration 04/09/24 Progress Towards Goals Progress Towards Goals Slow Progress due to Noncompliance Assessment Summary Assessment AROM Right shoulder flex:112, scaption 137, abd, seated ER 25 supine, IR right buttock PROM flex 142, abd 139, IR 40 ER 28 PT stressed importance of compliance to HEP, patient in agreement. Physical Therapy Plan Frequency and Duration Frequency of Treatment 2x/Week Duration of treatment (weeks) 12 Plan of Care Start Date 01/08/24 Plan of Care End Date 04/09/24 Therapeutic Interventions Therapeutic Interventions Home Exercise Program,Joint Mobilizations,Manual Therapy, Patient/Caregiver Education, Self-Care/Home Management,Soft Tissue Mobilization,Taping, Therapeutic Activities, Therapeutic Exercises Modalities Cold Pack/Ice Massage,Electric Stimulation,Hot Packs, Infrared Therapy,Iontophoresis ,Ultrasound Next Visit Focus/Plan Next Note Type Treatment Note Next Visit Plan Continue gentle ther ex for right shoulder ROM and strengthening, encourage increased and complete compliance to HEP. GH jt mob focused on inf glide, and posterior glide, possible MWM for right shoulder ER.
--- NOTE | 2024-02-15 11:28 | PT.OTN ---
Current Diagnoses Primary osteoarthritis, right shoulder (02/15/24) Pain in right shoulder (02/15/24) Weakness (02/15/24) Presence of right artificial hip joint (02/15/24) Physical Therapy Treatment Note PT-OP-A Visit Information Start: 01/04/24 17:17 Freq: Status: Active Protocol: Document 02/15/24 10:34 SP (Rec: 02/15/24 11:20 SP [id number]) Out-Patient Physical Therapy Visit Information Visit Information Visit Type Treatment Note Visit Note 04/02 post eval Visit Start Time 10:34 Visit Stop Time 11:28 Visit Number 9 Number of CLIENT RELATIONSHIP MANAGER Visits 1 Evaluation Information Evaluation Date 01/08/24 Precautions Precautions spinal fusions, 2 TKA, left TSA. PT-OP-B Current Condition Start: 01/04/24 17:17 Freq: Status: Active Protocol: Document 01/11/24 13:07 SAK (Rec: 01/11/24 14:01 SAK [id number]) Current Condition History of Current Condition Onset Date April 2023 Current Complaints right shoulder pain History of Current Condition Had to lay on right shoulder and push up with it after GIUSEPPE last fall with gradual onset right shoulder pain and dysfunction. Now reporting pain and weakness, denies N/T. Overall seems to be getting worse, states she babies it. Patient is left handed. States at times she can't even lift a coffee cup. Can't reach overhead, behind her back, has to use adaptive equipement to wash her back. Just got back from trip to [place], had to modify how she managed her luggage. Prior Treatments and Tests None, no ice or heat Future Testing and Treatments Planned Having OMT for neck and back Treatment Goals Patient/Caregiver Goals Decrease pain, regain full active use right shoulder PT-OP-C Subjective Start: 01/04/24 17:17 Freq: Status: Active Protocol: Document 02/15/24 10:34 SP (Rec: 02/15/24 11:20 SP [id number]) OP-PT Subjective Patient Comments Patient Comments Pt reports has an MRI and arthogram ordered, awaiting make appts. She feels the infrared and iontopatch helps with relief. She is responding to isometrics. PT-OP-F Manual Assessment Start: 01/04/24 17:17 Freq: Status: Active Protocol: Document 01/08/24 14:32 SAK (Rec: 01/10/24 10:28 [facility] [id number]) Manual Assessments Soft Tissue Assessment Soft Tissue Mobility Assessment tender to palpation anterior GH joint Joint Mobility Assessment Joint Mobility Assessment dec post and inf glide, pain anterior aspect GH with pressure PT-OP-H Neuro Start: 01/04/24 17:17 Freq: Status: Active Protocol: Document 01/08/24 14:32 [facility] (Rec: 01/10/24 10:28 [facility] [id number]) Sensation Evaluation Gross Sensation Gross Sensation WNL PT-OP-J Posture/Palpation/Skin Start: 01/04/24 17:17 Freq: Status: Active Protocol: Document 01/08/24 14:32 [facility] (Rec: 01/10/24 10:28 [facility] [id number]) Posture Evaluation Position Sitting Head/C-Spine Posture Forward Head T-Spine Posture Increased Kyphosis Shoulder Posture (L) Rounded,(R) Rounded Scapula Posture (R) Protracted,(L) Retracted Arm Posture (L) Internally Rotated,(R) Internally Rotated Palpation Assessment Location right shoulder Palpation Location anterior Palpation Findings Muscle Guarding,Tenderness Skin Assessment Other Assessments Skin Assessment Comments intact PT-OP-K Range of Motion Start: 01/04/24 17:17 Freq: Status: Active Protocol: Document 01/08/24 14:32 [facility] (Rec: 01/08/24 15:21 [facility] [id number]) Cervical Spine Range of Motion Cervical Spine Active Comments WFL Shoulder Goniometric Range of Motion Shoulder Left Flexion 165 Extension 22 Abduction 160 External Rotation at 45 degrees 65 Abduction External Rotation at 0 degrees Abduction 60 Internal Rotation Behind Back (text) L4 Right Active Flexion 97 Extension 9 Abduction 120 External Rotation at 45 degrees 21 Abduction External Rotation at 0 degrees Abduction 14 Internal Rotation Behind Back (text) posterior buttock Elbow/Forearm Range of Motion Elbow/Forearm kianna Elbow/Forearm ROM WFL Yes PT-OP-L Special Tests Start: 01/04/24 17:17 Freq: Status: Active Protocol: Document 01/08/24 14:32 [facility] (Rec: 01/10/24 10:28 [facility] [id number]) Special Tests Shoulder Special Tests [place] Test Test Results positive right Grind Labrum Test Results positive right Empty Can Test Results negative Passive ER Rotator Cuff Test Results negative Elevation Impingement Test Results negative PT-OP-M Strength Start: 01/04/24 17:17 Freq: Status: Active Protocol: Document 01/08/24 14:32 SAK (Rec: 01/08/24 15:21 SAK [id number]) Shoulder Strength Shoulder Manual Muscle Testing Left Flexion 4 Good Extension 4 Good Abduction (C5) 4 Good External Rotation 4- Good- Internal Rotation 4 Good Right Flexion 3- Fair- Extension 3+ Fair+ Abduction (C5) 3- Fair- External Rotation 3- Fair- Internal Rotation 4 Good Elbow/Forearm Strength Elbow and Forearm Manual Muscle Testing Right Flexion (C6) 4 Good Extension (C7) 4 Good PT-OP-Q Treatments Start: 01/04/24 17:17 Freq: Status: Active Protocol: Document 02/15/24 10:34 SP (Rec: 02/15/24 11:20 SP [id number]) Therapeutic Exercises Supine Exercises shld flex Side right Equipment Used wand Reps/Minutes 10x Sitting Exercises sh ER Side right Equipment Used dowel- black PVC, towel under arm Reps/Minutes 10x Comments cues for elbow at side, flexed 90 (hand high as check) maintain /c ER pulleys Sitting Exercise Name flexion and scaption Side right Resistance AAROM- LUE assist R Reps/Minutes 10x each Comments reports increases ROM/ mobility/decreases tension Standing Exercises TB Standing Exercise Name row, sh ext, sh ER IR Resistance L1 TB Reps/Minutes 10x ea Comments cues for scapular activation, neutral posture R shoulder isometrics Standing Exercise Name IR, ER, Flex, Ext, ABD- HEP reviewed Side right Reps/Minutes 5 SH x10 each Comments elbow at side /c scap retract/ reset, ER better /c scap set shld blade squeeze Standing Exercise Name 1. squeeze 2. R posterior rolls Side bilateral Reps/Minutes 1. 5 x5 reps 2. x10 reps shoulder shrugs Side bilateral Reps/Minutes 5x long axis sh ER/IR Side bilateral Reps/Minutes x10 Comments painfree Manual Therapy Treatment Soft Tissue Mobilization right biceps, deltoid Body Location bicep, deloid, pec, rhomboid, infraspinatus Mobilization Type Myofascial Release Intensity/Depth mod Body Position Hooklying Joint Mobilizations scap Direction ab/ad/sup/inf Grade III Body Position L side post glide Joint GH Grade II Body Position Hooklying Reps/Duration 2 min inf glide Joint GH Grade II Body Position hook Reps/Duration 2 min PT-OP-R Modalities Start: 01/04/24 17:17 Freq: Status: Active Protocol: Document 02/15/24 10:34 SP (Rec: 02/15/24 11:20 SP [id number]) Hot Pack/Cold Pack Treatment Hot Pack Location right shoulder Patient Position Hooklying Comments 10 min Infrared Treatment Treatment right anterior shoulder Body Position Hooklying Continuous/Pulsed Continuous Program or Protocal chronic pain and stiffness Comments 58 sec x8 R anterior and lateral shld Iontophoresis Treatment R shld Treatment Medication Dexamethasone (-) Medication Amount (mL) (ml) 1 Medication Dosage 6 hr patch Patient Tolerance Good PT-OP-T Assessment and Plan Start: 01/04/24 17:17 Freq: Status: Active Protocol: Document 02/15/24 10:34 SP (Rec: 02/15/24 11:20 SP [id number]) Physical Therapy Assessment Goals Two Impairment ROM and strength impairments right shoulder Impairment pain as high as 7/10 Short Term Goal (STG) Patient to be instructed in individualized progressive HEP for purposes of increasing her right shoulder ROM and strength STG Duration 02/10/24 Resin Shaver Goal (LTG) Patient will be independnet and compliance with HEP and demonstrate right shoulder ROM WFL and improve strength to at least 4+/5 all muscle groups LTG Duration 04/09/24 Three Impairment Activity tolerance Impairment Quickdash UE score 47% Short Term Goal (STG) Decrease Quickdash score to no greater than 35% as measure of improved functional activity tolerance STG Duration 02/10/24 Care Home Goal (LTG) Decrease Quickdash score to no greater than 15% as measure of improved functional activity tolerance and quality of life LTG Duration 04/09/24 One Impairment function-limiting pain Impairment unable to reach overhead or behind her back right UE due to pain ant R shoulder Short Term Goal (STG) Decrease pain by at least 50% to allow patient to return to light activities with left UE STG Duration 02/10/24 Care Home Goal (LTG) Decrease pain by at least 75% with to allow patient to return to all prior activies including reaching overhead and behind her back and working at [employer] without an increase in pain LTG Duration 04/09/24 Assessment Summary Assessment Pt reports decreased R sHld pain when performs her scap mobility and retraction hold during AAROM ER wand supported . She continues to have pain into open chain activites. Improved scap mob post manual and modality support. Will have further imagin g assessment soon. Physical Therapy Plan Frequency and Duration Frequency of Treatment 2x/Week Duration of treatment (weeks) 12 Plan of Care Start Date 01/08/24 Plan of Care End Date 04/09/24 Therapeutic Interventions Therapeutic Interventions Home Exercise Program,Joint Mobilizations,Manual Therapy, Patient/Caregiver Education, Self-Care/Home Management,Soft Tissue Mobilization,Taping, Therapeutic Activities, Therapeutic Exercises Modalities Cold Pack/Ice Massage,Electric Stimulation,Hot Packs, Infrared Therapy,Iontophoresis ,Ultrasound Next Visit Focus/Plan Next Note Type Treatment Note Next Visit Plan CHeck Imaging results. Continue gentle ther ex for right shoulder ROM and strengthening, encourage increased and complete compliance to HEP. GH jt mob focused on inf glide, and posterior glide, possible MWM for right shoulder ER.
--- NOTE | 2024-02-19 08:56 | PT.OTN ---
Current Diagnoses Primary osteoarthritis, right shoulder (02/19/24) Pain in right shoulder (02/19/24) Weakness (02/19/24) Presence of right artificial hip joint (02/19/24) Physical Therapy Treatment Note PT-OP-A Visit Information Start: 01/04/24 17:17 Freq: Status: Active Protocol: Document 02/19/24 08:14 SAK (Rec: 02/19/24 08:56 [facility] [id number]) Out-Patient Physical Therapy Visit Information Visit Information Visit Type Treatment Note Visit Note 05/02 post eval Visit Start Time 10:34 Visit Stop Time 11:28 Visit Number 9 Number of DIRECTOR FINANCIAL PLANNING Visits 1 Evaluation Information Evaluation Date 01/08/24 Precautions Precautions spinal fusions, 2 TKA, left TSA. PT-OP-B Current Condition Start: 01/04/24 17:17 Freq: Status: Active Protocol: Document 01/11/24 13:07 SAK (Rec: 01/11/24 14:01 SAK [id number]) Current Condition History of Current Condition Onset Date April 2023 Current Complaints right shoulder pain History of Current Condition Had to lay on right shoulder and push up with it after GIUSEPPE last fall with gradual onset right shoulder pain and dysfunction. Now reporting pain and weakness, denies N/T. Overall seems to be getting worse, states she babies it. Patient is left handed. States at times she can't even lift a coffee cup. Can't reach overhead, behind her back, has to use adaptive equipement to wash her back. Just got back from trip to [place], had to modify how she managed her luggage. Prior Treatments and Tests None, no ice or heat Future Testing and Treatments Planned Having OMT for neck and back Treatment Goals Patient/Caregiver Goals Decrease pain, regain full active use right shoulder PT-OP-C Subjective Start: 01/04/24 17:17 Freq: Status: Active Protocol: Document 02/19/24 08:14 SAK (Rec: 02/19/24 08:56 SAK [id number]) OP-PT Subjective Patient Comments Patient Comments Hasn't called to schedule arthrogram or MRI yet. PT-OP-F Manual Assessment Start: 01/04/24 17:17 Freq: Status: Active Protocol: Document 01/08/24 14:32 SAK (Rec: 01/10/24 10:28 SAK [id number]) Manual Assessments Soft Tissue Assessment Soft Tissue Mobility Assessment tender to palpation anterior GH joint Joint Mobility Assessment Joint Mobility Assessment dec post and inf glide, pain anterior aspect GH with pressure PT-OP-H Neuro Start: 01/04/24 17:17 Freq: Status: Active Protocol: Document 01/08/24 14:32 [facility] (Rec: 01/10/24 10:28 [facility] [id number]) Sensation Evaluation Gross Sensation Gross Sensation WNL PT-OP-J Posture/Palpation/Skin Start: 01/04/24 17:17 Freq: Status: Active Protocol: Document 01/08/24 14:32 [facility] (Rec: 01/10/24 10:28 [facility] [id number]) Posture Evaluation Position Sitting Head/C-Spine Posture Forward Head T-Spine Posture Increased Kyphosis Shoulder Posture (L) Rounded,(R) Rounded Scapula Posture (R) Protracted,(L) Retracted Arm Posture (L) Internally Rotated,(R) Internally Rotated Palpation Assessment Location right shoulder Palpation Location anterior Palpation Findings Muscle Guarding,Tenderness Skin Assessment Other Assessments Skin Assessment Comments intact PT-OP-K Range of Motion Start: 01/04/24 17:17 Freq: Status: Active Protocol: Document 01/08/24 14:32 [facility] (Rec: 01/08/24 15:21 [facility] [id number]) Cervical Spine Range of Motion Cervical Spine Active Comments WFL Shoulder Goniometric Range of Motion Shoulder Left Flexion 165 Extension 22 Abduction 160 External Rotation at 45 degrees 65 Abduction External Rotation at 0 degrees Abduction 60 Internal Rotation Behind Back (text) L4 Right Active Flexion 97 Extension 9 Abduction 120 External Rotation at 45 degrees 21 Abduction External Rotation at 0 degrees Abduction 14 Internal Rotation Behind Back (text) posterior buttock Elbow/Forearm Range of Motion Elbow/Forearm kianna Elbow/Forearm ROM WFL Yes PT-OP-L Special Tests Start: 01/04/24 17:17 Freq: Status: Active Protocol: Document 01/08/24 14:32 [facility] (Rec: 01/10/24 10:28 [facility] [id number]) Special Tests Shoulder Special Tests [place] Test Test Results positive right Grind Labrum Test Results positive right Empty Can Test Results negative Passive ER Rotator Cuff Test Results negative Elevation Impingement Test Results negative PT-OP-M Strength Start: 01/04/24 17:17 Freq: Status: Active Protocol: Document 01/08/24 14:32 [facility] (Rec: 01/08/24 15:21 [facility] [id number]) Shoulder Strength Shoulder Manual Muscle Testing Left Flexion 4 Good Extension 4 Good Abduction (C5) 4 Good External Rotation 4- Good- Internal Rotation 4 Good Right Flexion 3- Fair- Extension 3+ Fair+ Abduction (C5) 3- Fair- External Rotation 3- Fair- Internal Rotation 4 Good Elbow/Forearm Strength Elbow and Forearm Manual Muscle Testing Right Flexion (C6) 4 Good Extension (C7) 4 Good PT-OP-Q Treatments Start: 01/04/24 17:17 Freq: Status: Active Protocol: Document 02/19/24 08:14 [facility] (Rec: 02/19/24 08:56 [facility] [id number]) Therapeutic Exercises Sitting Exercises sh ER Side right Equipment Used dowel- black PVC, towel under arm Reps/Minutes 10x Comments cues for elbow at side, flexed 90 (hand high as check) maintain /c ER pulleys Sitting Exercise Name flexion and scaption Side right Resistance AAROM- LUE assist R Reps/Minutes 10x each Comments reports increases ROM/ mobility/decreases tension Standing Exercises TB Standing Exercise Name row, sh ext, sh ER IR Resistance L1 TB Reps/Minutes 10x ea Comments cues for scapular activation, neutral posture Manual Therapy Treatment Soft Tissue Mobilization right biceps, deltoid Body Location bicep, deloid, pec, rhomboid, infraspinatus Mobilization Type Myofascial Release Intensity/Depth mod Body Position Hooklying Joint Mobilizations scap Direction ab/ad/sup/inf Grade III Body Position L side post glide Joint GH Grade II Body Position Hooklying Reps/Duration 2 min inf glide Joint GH Grade II Body Position hook Reps/Duration 2 min PT-OP-R Modalities Start: 01/04/24 17:17 Freq: Status: Active Protocol: Document 02/19/24 08:14 [facility] (Rec: 02/19/24 08:56 [facility] [id number]) Hot Pack/Cold Pack Treatment Hot Pack Location right shoulder Patient Position Hooklying Comments 10 min Infrared Treatment Treatment right anterior shoulder Body Position Hooklying Continuous/Pulsed Continuous Program or Protocal chronic pain and stiffness Comments 58 sec x8 R anterior and lateral shld Iontophoresis Treatment R shld Treatment Medication Dexamethasone (-) Medication Amount (mL) (ml) 1 Medication Dosage 6 hr patch Patient Tolerance Good PT-OP-T Assessment and Plan Start: 01/04/24 17:17 Freq: Status: Active Protocol: Document 02/19/24 08:14 [facility] (Rec: 02/19/24 08:56 [facility] [id number]) Physical Therapy Assessment Goals Two Impairment ROM and strength impairments right shoulder Impairment pain as high as 01/30 Short Term Goal (STG) Patient to be instructed in individualized progressive HEP for purposes of increasing her right shoulder ROM and strength 02/19/24: goal met, compliance improving STG Duration goal met Half-Way Goal (LTG) Patient will be independnet and compliance with HEP and demonstrate right shoulder ROM WFL and improve strength to at least 4+/5 all muscle groups LTG Duration 04/09/24 Three Impairment Activity tolerance Impairment Quickdash UE score 47% Short Term Goal (STG) Decrease Quickdash score to no greater than 35% as measure of improved functional activity tolerance STG Duration 02/10/24 Intake Specialist Goal (LTG) Decrease Quickdash score to no greater than 15% as measure of improved functional activity tolerance and quality of life LTG Duration 04/09/24 One Impairment function-limiting pain Impairment unable to reach overhead or behind her back right UE due to pain ant R shoulder Short Term Goal (STG) Decrease pain by at least 50% to allow patient to return to light activities with left UE 02/19/24: dec pain after PT but pain persists, goal not met STG Duration 02/10/24 Intake Specialist Goal (LTG) Decrease pain by at least 75% with to allow patient to return to all prior activies including reaching overhead and behind her back and working at [employer] without an increase in pain LTG Duration 04/09/24 Progress Towards Goals Progress Towards Goals Slow Progress due to Activity Tolerance Assessment Summary Assessment Patient to schedule arthrogram and MRI. Has found her pulleys at home so will allow her to improve her HEP compliance. Physical Therapy Plan Frequency and Duration Frequency of Treatment 2x/Week Duration of treatment (weeks) 12 Plan of Care Start Date 01/08/24 Plan of Care End Date 04/09/24 Therapeutic Interventions Therapeutic Interventions Home Exercise Program,Joint Mobilizations,Manual Therapy, Patient/Caregiver Education, Self-Care/Home Management,Soft Tissue Mobilization,Taping, Therapeutic Activities, Therapeutic Exercises Modalities Cold Pack/Ice Massage,Electric Stimulation,Hot Packs, Infrared Therapy,Iontophoresis ,Ultrasound Next Visit Focus/Plan Next Note Type Treatment Note Next Visit Plan Check imaging results when testing done. Continue PT per POC
--- NOTE | 2024-02-26 09:12 | PT.OTN ---
Current Diagnoses Primary osteoarthritis, right shoulder (02/26/24) Pain in right shoulder (02/26/24) Weakness (02/26/24) Presence of right artificial hip joint (02/26/24) Physical Therapy Treatment Note PT-OP-A Visit Information Start: 01/04/24 17:17 Freq: Status: Active Protocol: Document 02/26/24 08:18 SP (Rec: 02/26/24 09:02 SP [id number]) Out-Patient Physical Therapy Visit Information Visit Information Visit Type Treatment Note Visit Note 09/02 post PN Visit Start Time 08:18 Visit Stop Time 09:12 Visit Number 11 Number of [employer] Visits 1 Evaluation Information Evaluation Date 01/08/24 Precautions Precautions spinal fusions, 2 TKA, left TSA. PT-OP-B Current Condition Start: 01/04/24 17:17 Freq: Status: Active Protocol: Document 01/11/24 13:07 SAK (Rec: 01/11/24 14:01 SAK [id number]) Current Condition History of Current Condition Onset Date April 2023 Current Complaints right shoulder pain History of Current Condition Had to lay on right shoulder and push up with it after GIUSEPPE last fall with gradual onset right shoulder pain and dysfunction. Now reporting pain and weakness, denies N/T. Overall seems to be getting worse, states she babies it. Patient is left handed. States at times she can't even lift a coffee cup. Can't reach overhead, behind her back, has to use adaptive equipement to wash her back. Just got back from trip to [place], had to modify how she managed her luggage. Prior Treatments and Tests None, no ice or heat Future Testing and Treatments Planned Having OMT for neck and back Treatment Goals Patient/Caregiver Goals Decrease pain, regain full active use right shoulder PT-OP-C Subjective Start: 01/04/24 17:17 Freq: Status: Active Protocol: Document 02/26/24 08:18 SP (Rec: 02/26/24 09:02 SP [id number]) OP-PT Subjective Patient Comments Patient Comments Pt reports awaiting on referral completion for MRI on Shlds. Her Catract surgery went well, taking eye drops 4x / day with improved vision next day. She stated her L hip hurting when sits on toilet and couch, hard time getting up now, wondered if has piriformis syndrome, wants PT to assess next tx. She reports likes the isometrics and pulleys best, not like band exercises. PT-OP-F Manual Assessment Start: 01/04/24 17:17 Freq: Status: Active Protocol: Document 01/08/24 14:32 [facility] (Rec: 01/10/24 10:28 [facility] [id number]) Manual Assessments Soft Tissue Assessment Soft Tissue Mobility Assessment tender to palpation anterior GH joint Joint Mobility Assessment Joint Mobility Assessment dec post and inf glide, pain anterior aspect GH with pressure PT-OP-H Neuro Start: 01/04/24 17:17 Freq: Status: Active Protocol: Document 01/08/24 14:32 [facility] (Rec: 01/10/24 10:28 [facility] [id number]) Sensation Evaluation Gross Sensation Gross Sensation WNL PT-OP-J Posture/Palpation/Skin Start: 01/04/24 17:17 Freq: Status: Active Protocol: Document 01/08/24 14:32 [facility] (Rec: 01/10/24 10:28 [facility] [id number]) Posture Evaluation Position Sitting Head/C-Spine Posture Forward Head T-Spine Posture Increased Kyphosis Shoulder Posture (L) Rounded,(R) Rounded Scapula Posture (R) Protracted,(L) Retracted Arm Posture (L) Internally Rotated,(R) Internally Rotated Palpation Assessment Location right shoulder Palpation Location anterior Palpation Findings Muscle Guarding,Tenderness Skin Assessment Other Assessments Skin Assessment Comments intact PT-OP-K Range of Motion Start: 01/04/24 17:17 Freq: Status: Active Protocol: Document 01/08/24 14:32 [facility] (Rec: 01/08/24 15:21 [facility] [id number]) Cervical Spine Range of Motion Cervical Spine Active Comments WFL Shoulder Goniometric Range of Motion Shoulder Left Flexion 165 Extension 22 Abduction 160 External Rotation at 45 degrees 65 Abduction External Rotation at 0 degrees Abduction 60 Internal Rotation Behind Back (text) L4 Right Active Flexion 97 Extension 9 Abduction 120 External Rotation at 45 degrees 21 Abduction External Rotation at 0 degrees Abduction 14 Internal Rotation Behind Back (text) posterior buttock Elbow/Forearm Range of Motion Elbow/Forearm kianna Elbow/Forearm ROM WFL Yes PT-OP-L Special Tests Start: 01/04/24 17:17 Freq: Status: Active Protocol: Document 01/08/24 14:32 [facility] (Rec: 01/10/24 10:28 [facility] [id number]) Special Tests Shoulder Special Tests [place] Test Test Results positive right Grind Labrum Test Results positive right Empty Can Test Results negative Passive ER Rotator Cuff Test Results negative Elevation Impingement Test Results negative PT-OP-M Strength Start: 01/04/24 17:17 Freq: Status: Active Protocol: Document 01/08/24 14:32 [facility] (Rec: 01/08/24 15:21 [facility] [id number]) Shoulder Strength Shoulder Manual Muscle Testing Left Flexion 4 Good Extension 4 Good Abduction (C5) 4 Good External Rotation 4- Good- Internal Rotation 4 Good Right Flexion 3- Fair- Extension 3+ Fair+ Abduction (C5) 3- Fair- External Rotation 3- Fair- Internal Rotation 4 Good Elbow/Forearm Strength Elbow and Forearm Manual Muscle Testing Right Flexion (C6) 4 Good Extension (C7) 4 Good PT-OP-Q Treatments Start: 01/04/24 17:17 Freq: Status: Active Protocol: Document 02/26/24 08:18 SP (Rec: 02/26/24 09:02 SP [id number]) Therapeutic Exercises Sitting Exercises pulleys Sitting Exercise Name flexion and scaption Side right Resistance AAROM- LUE assist R Reps/Minutes 10x each Comments reports increases ROM/ mobility/decreases tension Standing Exercises TB Standing Exercise Name Shld: row, ext, ER, IR (elbow 90 deg) Side bilateral Resistance L1 TB peach Reps/Minutes 12x ea Comments cues for scapular activation, neutral posture, slower pac/ ecc control wall slide Standing Exercise Name FF, scaption Side bilateral Equipment Used furniture slider Reps/Minutes 8 x2 each kianna Comments cued slower pacing shld blade squeeze Standing Exercise Name 1. squeeze 2. R posterior rolls Side bilateral Reps/Minutes 1. 5 x5 reps 2. x10 reps shoulder shrugs Side bilateral Reps/Minutes 5x PT-OP-R Modalities Start: 01/04/24 17:17 Freq: Status: Active Protocol: Document 02/26/24 08:18 SP (Rec: 02/26/24 09:02 SP [id number]) Hot Pack/Cold Pack Treatment Hot Pack Location right shoulder Patient Position Hooklying Comments 10 min Infrared Treatment Treatment right anterior shoulder Body Position Hooklying Continuous/Pulsed Continuous Program or Protocal chronic pain and stiffness Comments 58 sec x8 R anterior and lateral shld Iontophoresis Treatment R shld Treatment Medication Dexamethasone (-) Medication Amount (mL) (ml) 1 Medication Dosage 4 hr patch (IH doesn't have 6 hr patch) Patient Tolerance Good PT-OP-T Assessment and Plan Start: 01/04/24 17:17 Freq: Status: Active Protocol: Document 02/26/24 08:18 SP (Rec: 02/26/24 09:02 SP [id number]) Physical Therapy Assessment Goals Two Impairment ROM and strength impairments right shoulder Impairment pain as high as 7 Short Term Goal (STG) Patient to be instructed in individualized progressive HEP for purposes of increasing her right shoulder ROM and strength 02/19/24: goal met, compliance improving STG Duration goal met [employer] Goal (LTG) Patient will be independnet and compliance with HEP and demonstrate right shoulder ROM WFL and improve strength to at least 4+/5 all muscle groups LTG Duration 04/09/24 Three Impairment Activity tolerance Impairment Quickdash UE score 47% Short Term Goal (STG) Decrease Quickdash score to no greater than 35% as measure of improved functional activity tolerance STG Duration 02/10/24 Nursing Home Goal (LTG) Decrease Quickdash score to no greater than 15% as measure of improved functional activity tolerance and quality of life LTG Duration 04/09/24 One Impairment function-limiting pain Impairment unable to reach overhead or behind her back right UE due to pain ant R shoulder Short Term Goal (STG) Decrease pain by at least 50% to allow patient to return to light activities with left UE 02/19/24: dec pain after PT but pain persists, goal not met STG Duration 02/10/24 Nursing Home Goal (LTG) Decrease pain by at least 75% with to allow patient to return to all prior activies including reaching overhead and behind her back and working at [employer] without an increase in pain LTG Duration 04/09/24 Assessment Summary Assessment Pt awaiting approval and schedule arthogram and MRI R shld. She admits is not consistant with resisted HEP, states like the isometrics better for R shld, very minimal pain reported during TB HEP review. Cues for slower pacing and scapular mobility to allow reduction discomfort during wall slides. Pt states has good response to modalities and requests use laser and iontophoresis patch for carryover pain reduction. Education importance of performing progressing resisted with mobiltiy HEP to allow support return to reaching during ADLs. Physical Therapy Plan Frequency and Duration Frequency of Treatment 2x/Week Duration of treatment (weeks) 12 Plan of Care Start Date 01/08/24 Plan of Care End Date 04/09/24 Therapeutic Interventions Therapeutic Interventions Home Exercise Program,Joint Mobilizations,Manual Therapy, Patient/Caregiver Education, Self-Care/Home Management,Soft Tissue Mobilization,Taping, Therapeutic Activities, Therapeutic Exercises Modalities Cold Pack/Ice Massage,Electric Stimulation,Hot Packs, Infrared Therapy,Iontophoresis ,Ultrasound Next Visit Focus/Plan Next Note Type Treatment Note Next Visit Plan Check ionto, MRI scheduled [place]. Check L hip pain next tx with PT. Check imaging results when testing done. Continue PT per POC
--- NOTE | 2024-02-27 09:12 | PT.OTN ---
Current Diagnoses Primary osteoarthritis, right shoulder (02/26/24) Pain in right shoulder (02/26/24) Weakness (02/26/24) Presence of right artificial hip joint (02/26/24) Physical Therapy Treatment Note PT-OP-A Visit Information Start: 01/04/24 17:17 Freq: Status: Active Protocol: Document 02/26/24 08:18 SP (Rec: 02/26/24 09:02 SP [id number]) Out-Patient Physical Therapy Visit Information Visit Information Visit Type Treatment Note Visit Note 09/02 post PN Visit Start Time 08:18 Visit Stop Time 09:12 Visit Number 11 Number of PROFESSOR [employer] Visits 1 Evaluation Information Evaluation Date 01/08/24 Precautions Precautions spinal fusions, 2 TKA, left TSA. PT-OP-B Current Condition Start: 01/04/24 17:17 Freq: Status: Active Protocol: Document 01/11/24 13:07 SAK (Rec: 01/11/24 14:01 SAK [id number]) Current Condition History of Current Condition Onset Date April 2023 Current Complaints right shoulder pain History of Current Condition Had to lay on right shoulder and push up with it after GIUSEPPE last fall with gradual onset right shoulder pain and dysfunction. Now reporting pain and weakness, denies N/T. Overall seems to be getting worse, states she babies it. Patient is left handed. States at times she can't even lift a coffee cup. Can't reach overhead, behind her back, has to use adaptive equipement to wash her back. Just got back from trip to [place], had to modify how she managed her luggage. Prior Treatments and Tests None, no ice or heat Future Testing and Treatments Planned Having OMT for neck and back Treatment Goals Patient/Caregiver Goals Decrease pain, regain full active use right shoulder PT-OP-C Subjective Start: 01/04/24 17:17 Freq: Status: Active Protocol: Document 02/26/24 08:18 SP (Rec: 02/26/24 09:02 SP [id number]) OP-PT Subjective Patient Comments Patient Comments Pt reports awaiting on referral completion for MRI on Shlds. Her Catract surgery went well, taking eye drops 4x / day with improved vision next day. She stated her L hip hurting when sits on toilet and couch, hard time getting up now, wondered if has piriformis syndrome, wants PT to assess next tx. She reports likes the isometrics and pulleys best, not like band exercises. PT-OP-F Manual Assessment Start: 01/04/24 17:17 Freq: Status: Active Protocol: Document 01/08/24 14:32 [facility] (Rec: 01/10/24 10:28 [facility] [id number]) Manual Assessments Soft Tissue Assessment Soft Tissue Mobility Assessment tender to palpation anterior GH joint Joint Mobility Assessment Joint Mobility Assessment dec post and inf glide, pain anterior aspect GH with pressure PT-OP-H Neuro Start: 01/04/24 17:17 Freq: Status: Active Protocol: Document 01/08/24 14:32 [facility] (Rec: 01/10/24 10:28 [facility] [id number]) Sensation Evaluation Gross Sensation Gross Sensation WNL PT-OP-J Posture/Palpation/Skin Start: 01/04/24 17:17 Freq: Status: Active Protocol: Document 01/08/24 14:32 [facility] (Rec: 01/10/24 10:28 [facility] [id number]) Posture Evaluation Position Sitting Head/C-Spine Posture Forward Head T-Spine Posture Increased Kyphosis Shoulder Posture (L) Rounded,(R) Rounded Scapula Posture (R) Protracted,(L) Retracted Arm Posture (L) Internally Rotated,(R) Internally Rotated Palpation Assessment Location right shoulder Palpation Location anterior Palpation Findings Muscle Guarding,Tenderness Skin Assessment Other Assessments Skin Assessment Comments intact PT-OP-K Range of Motion Start: 01/04/24 17:17 Freq: Status: Active Protocol: Document 01/08/24 14:32 [facility] (Rec: 01/08/24 15:21 [facility] [id number]) Cervical Spine Range of Motion Cervical Spine Active Comments WFL Shoulder Goniometric Range of Motion Shoulder Left Flexion 165 Extension 22 Abduction 160 External Rotation at 45 degrees 65 Abduction External Rotation at 0 degrees Abduction 60 Internal Rotation Behind Back (text) L4 Right Active Flexion 97 Extension 9 Abduction 120 External Rotation at 45 degrees 21 Abduction External Rotation at 0 degrees Abduction 14 Internal Rotation Behind Back (text) posterior buttock Elbow/Forearm Range of Motion Elbow/Forearm kianna Elbow/Forearm ROM WFL Yes PT-OP-L Special Tests Start: 01/04/24 17:17 Freq: Status: Active Protocol: Document 01/08/24 14:32 [facility] (Rec: 01/10/24 10:28 [facility] [id number]) Special Tests Shoulder Special Tests [place] Test Test Results positive right Grind Labrum Test Results positive right Empty Can Test Results negative Passive ER Rotator Cuff Test Results negative Elevation Impingement Test Results negative PT-OP-M Strength Start: 01/04/24 17:17 Freq: Status: Active Protocol: Document 01/08/24 14:32 [facility] (Rec: 01/08/24 15:21 [facility] [id number]) Shoulder Strength Shoulder Manual Muscle Testing Left Flexion 4 Good Extension 4 Good Abduction (C5) 4 Good External Rotation 4- Good- Internal Rotation 4 Good Right Flexion 3- Fair- Extension 3+ Fair+ Abduction (C5) 3- Fair- External Rotation 3- Fair- Internal Rotation 4 Good Elbow/Forearm Strength Elbow and Forearm Manual Muscle Testing Right Flexion (C6) 4 Good Extension (C7) 4 Good PT-OP-Q Treatments Start: 01/04/24 17:17 Freq: Status: Active Protocol: Document 02/26/24 08:18 SP (Rec: 02/26/24 09:02 SP [id number]) Therapeutic Exercises Sitting Exercises pulleys Sitting Exercise Name flexion and scaption Side right Resistance AAROM- LUE assist R Reps/Minutes 10x each Comments reports increases ROM/ mobility/decreases tension Standing Exercises TB Standing Exercise Name Shld: row, ext, ER, IR (elbow 90 deg) Side bilateral Resistance L1 TB peach Reps/Minutes 12x ea Comments cues for scapular activation, neutral posture, slower pac/ ecc control wall slide Standing Exercise Name FF, scaption Side bilateral Equipment Used furniture slider Reps/Minutes 8 x2 each kianna Comments cued slower pacing shld blade squeeze Standing Exercise Name 1. squeeze 2. R posterior rolls Side bilateral Reps/Minutes 1. 5 x5 reps 2. x10 reps shoulder shrugs Side bilateral Reps/Minutes 5x PT-OP-R Modalities Start: 01/04/24 17:17 Freq: Status: Active Protocol: Document 02/26/24 08:18 SP (Rec: 02/26/24 09:02 SP [id number]) Hot Pack/Cold Pack Treatment Hot Pack Location right shoulder Patient Position Hooklying Comments 10 min Infrared Treatment Treatment right anterior shoulder Body Position Hooklying Continuous/Pulsed Continuous Program or Protocal chronic pain and stiffness Comments 58 sec x8 R anterior and lateral shld Iontophoresis Treatment R shld Treatment Medication Dexamethasone (-) Medication Amount (mL) (ml) 1 Medication Dosage 4 hr patch (IH doesn't have 6 hr patch) Patient Tolerance Good PT-OP-T Assessment and Plan Start: 01/04/24 17:17 Freq: Status: Active Protocol: Document 02/26/24 08:18 SP (Rec: 02/26/24 09:02 SP [id number]) Physical Therapy Assessment Goals Two Impairment ROM and strength impairments right shoulder Impairment pain as high as 7 Short Term Goal (STG) Patient to be instructed in individualized progressive HEP for purposes of increasing her right shoulder ROM and strength 02/19/24: goal met, compliance improving STG Duration goal met [employer] Goal (LTG) Patient will be independnet and compliance with HEP and demonstrate right shoulder ROM WFL and improve strength to at least 4+/5 all muscle groups LTG Duration 04/09/24 Three Impairment Activity tolerance Impairment Quickdash UE score 47% Short Term Goal (STG) Decrease Quickdash score to no greater than 35% as measure of improved functional activity tolerance STG Duration 02/10/24 [facility] Goal (LTG) Decrease Quickdash score to no greater than 15% as measure of improved functional activity tolerance and quality of life LTG Duration 04/09/24 One Impairment function-limiting pain Impairment unable to reach overhead or behind her back right UE due to pain ant R shoulder Short Term Goal (STG) Decrease pain by at least 50% to allow patient to return to light activities with left UE 02/19/24: dec pain after PT but pain persists, goal not met STG Duration 02/10/24 [facility] Goal (LTG) Decrease pain by at least 75% with to allow patient to return to all prior activies including reaching overhead and behind her back and working at [employer] without an increase in pain LTG Duration 04/09/24 Assessment Summary Assessment Pt awaiting approval and schedule arthogram and MRI R shld. She admits is not consistant with resisted HEP, states like the isometrics better for R shld, very minimal pain reported during TB HEP review. Cues for slower pacing and scapular mobility to allow reduction discomfort during wall slides. Pt states has good response to modalities and requests use laser and iontophoresis patch for carryover pain reduction. Education importance of performing progressing resisted with mobiltiy HEP to allow support return to reaching during ADLs. Physical Therapy Plan Frequency and Duration Frequency of Treatment 2x/Week Duration of treatment (weeks) 12 Plan of Care Start Date 01/08/24 Plan of Care End Date 04/09/24 Therapeutic Interventions Therapeutic Interventions Home Exercise Program,Joint Mobilizations,Manual Therapy, Patient/Caregiver Education, Self-Care/Home Management,Soft Tissue Mobilization,Taping, Therapeutic Activities, Therapeutic Exercises Modalities Cold Pack/Ice Massage,Electric Stimulation,Hot Packs, Infrared Therapy,Iontophoresis ,Ultrasound Next Visit Focus/Plan Next Note Type Treatment Note Next Visit Plan Check ionto, MRI scheduled [place]. Check L hip pain next tx with PT. Check imaging results when testing done. Continue PT per POC
--- NOTE | 2024-02-29 08:45 | PT-OP ANOTE ---
patient cancelled PT appointment
--- NOTE | 2024-03-04 09:12 | PT.OTN ---
Current Diagnoses Primary osteoarthritis, right shoulder (03/04/24) Pain in right shoulder (03/04/24) Weakness (03/04/24) Presence of right artificial hip joint (03/04/24) Physical Therapy Treatment Note PT-OP-A Visit Information Start: 01/04/24 17:17 Freq: Status: Active Protocol: Document 03/04/24 08:20 SP (Rec: 03/04/24 09:03 SP [id number]) Out-Patient Physical Therapy Visit Information Visit Information Visit Type Treatment Note Visit Note 3/10 post PN In bathroom 5 min after attended for appt. 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 PT-OP-B Current Condition Start: 01/04/24 17:17 Freq: Status: Active Protocol: Document 01/11/24 13:07 SAK (Rec: 01/11/24 14:01 SAK [id number]) Current Condition History of Current Condition Onset Date April 2023 Current Complaints right shoulder pain History of Current Condition Had to lay on right shoulder and push up with it after GIUSEPPE last fall with gradual onset right shoulder pain and dysfunction. Now reporting pain and weakness, denies N/T. Overall seems to be getting worse, states she babies it. Patient is left handed. States at times she can't even lift a coffee cup. Can't reach overhead, behind her back, has to use adaptive equipement to wash her back. Just got back from trip to [place], had to modify how she managed her luggage. Prior Treatments and Tests None, no ice or heat Future Testing and Treatments Planned Having OMT for neck and back Treatment Goals Patient/Caregiver Goals Decrease pain, regain full active use right shoulder PT-OP-C Subjective Start: 01/04/24 17:17 Freq: Status: Active Protocol: Document 03/04/24 08:20 SP (Rec: 03/04/24 09:03 SP [id number]) OP-PT Subjective Patient Comments Patient Comments Pt reports very tired due to supporting sister in ER last night. She has surgery tomorrow for cyst removal on back and instructed no PT/ activity later this week, so cancelled Th appt for PT. She reports her shld is still bothersome, still awaiting on referral and appt for MRI. She stated using sister's yin and anchored theraband and doing band ex. PT-OP-F Manual Assessment Start: 01/04/24 17:17 Freq: Status: Active Protocol: Document 01/08/24 14:32 [facility] (Rec: 01/10/24 10:28 [facility] [id number]) Manual Assessments Soft Tissue Assessment Soft Tissue Mobility Assessment tender to palpation anterior GH joint Joint Mobility Assessment Joint Mobility Assessment dec post and inf glide, pain anterior aspect GH with pressure PT-OP-H Neuro Start: 01/04/24 17:17 Freq: Status: Active Protocol: Document 01/08/24 14:32 SAK (Rec: 01/10/24 10:28 [facility] [id number]) Sensation Evaluation Gross Sensation Gross Sensation WNL PT-OP-J Posture/Palpation/Skin Start: 01/04/24 17:17 Freq: Status: Active Protocol: Document 01/08/24 14:32 [facility] (Rec: 01/10/24 10:28 [facility] [id number]) Posture Evaluation Position Sitting Head/C-Spine Posture Forward Head T-Spine Posture Increased Kyphosis Shoulder Posture (L) Rounded,(R) Rounded Scapula Posture (R) Protracted,(L) Retracted Arm Posture (L) Internally Rotated,(R) Internally Rotated Palpation Assessment Location right shoulder Palpation Location anterior Palpation Findings Muscle Guarding,Tenderness Skin Assessment Other Assessments Skin Assessment Comments intact PT-OP-K Range of Motion Start: 01/04/24 17:17 Freq: Status: Active Protocol: Document 01/08/24 14:32 [facility] (Rec: 01/08/24 15:21 [facility] [id number]) Cervical Spine Range of Motion Cervical Spine Active Comments WFL Shoulder Goniometric Range of Motion Shoulder Left Flexion 165 Extension 22 Abduction 160 External Rotation at 45 degrees 65 Abduction External Rotation at 0 degrees Abduction 60 Internal Rotation Behind Back (text) L4 Right Active Flexion 97 Extension 9 Abduction 120 External Rotation at 45 degrees 21 Abduction External Rotation at 0 degrees Abduction 14 Internal Rotation Behind Back (text) posterior buttock Elbow/Forearm Range of Motion Elbow/Forearm kianna Elbow/Forearm ROM WFL Yes PT-OP-L Special Tests Start: 01/04/24 17:17 Freq: Status: Active Protocol: Document 01/08/24 14:32 [facility] (Rec: 01/10/24 10:28 [facility] [id number]) Special Tests Shoulder Special Tests Adams Test Test Results positive right Grind Labrum Test Results positive right Empty Can Test Results negative Passive ER Rotator Cuff Test Results negative Elevation Impingement Test Results negative PT-OP-M Strength Start: 01/04/24 17:17 Freq: Status: Active Protocol: Document 01/08/24 14:32 SAK (Rec: 01/08/24 15:21 SAK [id number]) Shoulder Strength Shoulder Manual Muscle Testing Left Flexion 4 Good Extension 4 Good Abduction (C5) 4 Good External Rotation 4- Good- Internal Rotation 4 Good Right Flexion 3- Fair- Extension 3+ Fair+ Abduction (C5) 3- Fair- External Rotation 3- Fair- Internal Rotation 4 Good Elbow/Forearm Strength Elbow and Forearm Manual Muscle Testing Right Flexion (C6) 4 Good Extension (C7) 4 Good PT-OP-Q Treatments Start: 01/04/24 17:17 Freq: Status: Active Protocol: Document 03/04/24 08:20 SP (Rec: 03/04/24 09:03 SP [id number]) Therapeutic Exercises Sitting Exercises pulleys Sitting Exercise Name flexion, scaption, bicycle front Side right Resistance AAROM- LUE assist R Reps/Minutes 20x each Comments reports increases ROM/ mobility/decreases tension Standing Exercises wall pushups Standing Exercise Name trialed in PT: saúl and W Side bilateral Reps/Minutes 10 reps each Comments hand on wall approx shld height TB Standing Exercise Name Shld: row, ext, ER & IR (elbow 90 deg) Side bilateral Resistance L1 TB peach Reps/Minutes 15x ea Comments cued elbow flex or ext pos proper form wall slide Standing Exercise Name FF, scaption Side bilateral Equipment Used furniture slider Reps/Minutes 8 x2 each kianna Comments cued slower pacing counter stretch Standing Exercise Name FF assist Reps/Minutes 5x5 Comments cued painfree range Manual Therapy Treatment Soft Tissue Mobilization right biceps, deltoid Body Location bicep, deloid, pec, rhomboid, infraspinatus Mobilization Type Myofascial Release Intensity/Depth mod Body Position Hooklying Joint Mobilizations scap Direction ab/ad/sup/inf Grade II Body Position L side post glide Joint GH Grade II Body Position Hooklying Reps/Duration 2 min inf glide Joint GH Grade II Body Position hook Reps/Duration 2 min PT-OP-R Modalities Start: 01/04/24 17:17 Freq: Status: Active Protocol: Document 03/04/24 08:20 SP (Rec: 03/04/24 09:03 SP [id number]) Hot Pack/Cold Pack Treatment Hot Pack Location right shoulder Patient Position Hooklying Comments 10 min Infrared Treatment Treatment right anterior shoulder Body Position Hooklying Continuous/Pulsed Continuous Program or Protocal chronic pain and stiffness Comments 58 sec x8 R anterior and lateral shld Iontophoresis Treatment R shld Treatment Medication Dexamethasone (-) Medication Amount (mL) (ml) 1 Medication Dosage 4 hr patch (IH doesn't have 6 hr patch) Patient Tolerance Good PT-OP-T Assessment and Plan Start: 01/04/24 17:17 Freq: Status: Active Protocol: Document 03/04/24 08:20 SP (Rec: 03/04/24 09:03 SP [id number]) Physical Therapy Assessment Goals Two Impairment ROM and strength impairments right shoulder Impairment pain as high as 7/10 Short Term Goal (STG) Patient to be instructed in individualized progressive HEP for purposes of increasing her right shoulder ROM and strength 02/19/24: goal met, compliance improving STG Duration goal met Director Of Physical Education Goal (LTG) Patient will be independnet and compliance with HEP and demonstrate right shoulder ROM WFL and improve strength to at least 4+/5 all muscle groups LTG Duration 04/09/24 Three Impairment Activity tolerance Impairment Quickdash UE score 47% Short Term Goal (STG) Decrease Quickdash score to no greater than 35% as measure of improved functional activity tolerance STG Duration 02/10/24 Director Of Physical Education Goal (LTG) Decrease Quickdash score to no greater than 15% as measure of improved functional activity tolerance and quality of life LTG Duration 04/09/24 One Impairment function-limiting pain Impairment unable to reach overhead or behind her back right UE due to pain ant R shoulder Short Term Goal (STG) Decrease pain by at least 50% to allow patient to return to light activities with left UE 02/19/24: dec pain after PT but pain persists, goal not met STG Duration 02/10/24 Assisted Goal (LTG) Decrease pain by at least 75% with to allow patient to return to all prior activies including reaching overhead and behind her back and working at [employer] without an increase in pain LTG Duration 04/09/24 Assessment Summary Assessment Pt reports limited range due to pain in R shld into assisted FF during AAROM sink stretch and wall slide. No adverses affects to resisted R shld exercises today, cues for maintaining elbow 90 during IR/ ER (with very limited ER tolerance) and rows flex/ext. Pt states is incorporating band exercises at home. Pt requests continue use of modalities help with R shld anterior and inferior mid clavicle pain reduction end tx. Physical Therapy Plan Frequency and Duration Frequency of Treatment 2x/Week Duration of treatment (weeks) 12 Plan of Care Start Date 01/08/24 Plan of Care End Date 04/09/24 Therapeutic Interventions Therapeutic Interventions Home Exercise Program,Joint Mobilizations,Manual Therapy, Patient/Caregiver Education, Self-Care/Home Management,Soft Tissue Mobilization,Taping, Therapeutic Activities, Therapeutic Exercises Modalities Cold Pack/Ice Massage,Electric Stimulation,Hot Packs, Infrared Therapy,Iontophoresis ,Ultrasound Next Visit Focus/Plan Next Note Type Treatment Note Next Visit Plan Check when MRI R shld scheduled Simpson. PT Check L hip pain next tx. Check imaging results when testing done. Continue PT per POC Continue gentle ther ex for right shoulder ROM and strengthening tolerance, encourage increased and complete compliance to HEP. GH jt mob focused on inf glide, and posterior glide, possible MWM for right shoulder ER.
--- NOTE | 2024-03-11 16:15 | PT.OTN ---
Current Diagnoses Primary osteoarthritis, right shoulder (03/11/24) Pain in right shoulder (03/11/24) Weakness (03/11/24) Presence of right artificial hip joint (03/11/24) Physical Therapy Treatment Note PT-OP-A Visit Information Start: 01/04/24 17:17 Freq: Status: Active Protocol: Document 03/11/24 08:16 SAK (Rec: 03/11/24 09:02 [facility] [id number]) Out-Patient Physical Therapy Visit Information Visit Information Visit Type Treatment Note Visit Note 10/31 post PN Visit Start Time 08:16 Visit Stop Time 09:13 Visit Number 13 Number of HUMANITIES INSTRUCTOR Visits 0 Evaluation Information Evaluation Date 01/08/24 Precautions Precautions spinal fusions, 2 TKA, left TSA. PT-OP-B Current Condition Start: 01/04/24 17:17 Freq: Status: Active Protocol: Document 01/11/24 13:07 SAK (Rec: 01/11/24 14:01 SAK [id number]) Current Condition History of Current Condition Onset Date April 2023 Current Complaints right shoulder pain History of Current Condition Had to lay on right shoulder and push up with it after GIUSEPPE last fall with gradual onset right shoulder pain and dysfunction. Now reporting pain and weakness, denies N/T. Overall seems to be getting worse, states she babies it. Patient is left handed. States at times she can't even lift a coffee cup. Can't reach overhead, behind her back, has to use adaptive equipement to wash her back. Just got back from trip to [place], had to modify how she managed her luggage. Prior Treatments and Tests None, no ice or heat Future Testing and Treatments Planned Having OMT for neck and back Treatment Goals Patient/Caregiver Goals Decrease pain, regain full active use right shoulder PT-OP-C Subjective Start: 01/04/24 17:17 Freq: Status: Active Protocol: Document 03/11/24 08:16 SAK (Rec: 03/11/24 09:02 [facility] [id number]) OP-PT Subjective Patient Comments Patient Comments Finally got her pulleys up, has been doing HEP intermediate. No MRI scheduled yet, plan is for arthrogram first. PT-OP-F Manual Assessment Start: 01/04/24 17:17 Freq: Status: Active Protocol: Document 01/08/24 14:32 SAK (Rec: 01/10/24 10:28 SAK [id number]) Manual Assessments Soft Tissue Assessment Soft Tissue Mobility Assessment tender to palpation anterior GH joint Joint Mobility Assessment Joint Mobility Assessment dec post and inf glide, pain anterior aspect GH with pressure PT-OP-H Neuro Start: 01/04/24 17:17 Freq: Status: Active Protocol: Document 01/08/24 14:32 [facility] (Rec: 01/10/24 10:28 [facility] [id number]) Sensation Evaluation Gross Sensation Gross Sensation WNL PT-OP-J Posture/Palpation/Skin Start: 01/04/24 17:17 Freq: Status: Active Protocol: Document 01/08/24 14:32 [facility] (Rec: 01/10/24 10:28 [facility] [id number]) Posture Evaluation Position Sitting Head/C-Spine Posture Forward Head T-Spine Posture Increased Kyphosis Shoulder Posture (L) Rounded,(R) Rounded Scapula Posture (R) Protracted,(L) Retracted Arm Posture (L) Internally Rotated,(R) Internally Rotated Palpation Assessment Location right shoulder Palpation Location anterior Palpation Findings Muscle Guarding,Tenderness Skin Assessment Other Assessments Skin Assessment Comments intact PT-OP-K Range of Motion Start: 01/04/24 17:17 Freq: Status: Active Protocol: Document 01/08/24 14:32 [facility] (Rec: 01/08/24 15:21 [facility] [id number]) Cervical Spine Range of Motion Cervical Spine Active Comments WFL Shoulder Goniometric Range of Motion Shoulder Left Flexion 165 Extension 22 Abduction 160 External Rotation at 45 degrees 65 Abduction External Rotation at 0 degrees Abduction 60 Internal Rotation Behind Back (text) L4 Right Active Flexion 97 Extension 9 Abduction 120 External Rotation at 45 degrees 21 Abduction External Rotation at 0 degrees Abduction 14 Internal Rotation Behind Back (text) posterior buttock Elbow/Forearm Range of Motion Elbow/Forearm kianna Elbow/Forearm ROM WFL Yes PT-OP-L Special Tests Start: 01/04/24 17:17 Freq: Status: Active Protocol: Document 01/08/24 14:32 [facility] (Rec: 01/10/24 10:28 [facility] [id number]) Special Tests Shoulder Special Tests Humphreys Test Test Results positive right Grind Labrum Test Results positive right Empty Can Test Results negative Passive ER Rotator Cuff Test Results negative Elevation Impingement Test Results negative PT-OP-M Strength Start: 01/04/24 17:17 Freq: Status: Active Protocol: Document 01/08/24 14:32 [facility] (Rec: 01/08/24 15:21 [facility] [id number]) Shoulder Strength Shoulder Manual Muscle Testing Left Flexion 4 Good Extension 4 Good Abduction (C5) 4 Good External Rotation 4- Good- Internal Rotation 4 Good Right Flexion 3- Fair- Extension 3+ Fair+ Abduction (C5) 3- Fair- External Rotation 3- Fair- Internal Rotation 4 Good Elbow/Forearm Strength Elbow and Forearm Manual Muscle Testing Right Flexion (C6) 4 Good Extension (C7) 4 Good PT-OP-Q Treatments Start: 01/04/24 17:17 Freq: Status: Active Protocol: Document 03/11/24 08:16 [facility] (Rec: 03/11/24 09:02 [facility] [id number]) Cardio Equipment Recumbent Stepper (Sci-Fit) Duration (Minutes) 5 Resistance 1 Seat Position 10 Therapeutic Exercises Standing Exercises passive sh ER Reps/Minutes 5x10 wall pushups Standing Exercise Name trialed in PT: saúl and W Side bilateral Reps/Minutes 10 reps each Comments hand on wall approx shld height wall slide Standing Exercise Name FF, scaption Side bilateral Equipment Used furniture slider Reps/Minutes 8 x2 each kianna Comments cued slower pacing Manual Therapy Treatment Soft Tissue Mobilization right biceps, deltoid Body Location bicep, deloid, pec, rhomboid, infraspinatus Mobilization Type Myofascial Release Intensity/Depth mod Body Position Hooklying Joint Mobilizations scap Direction ab/ad/sup/inf Grade II Body Position L side post glide Joint GH Grade II Body Position Hooklying Reps/Duration 2 min inf glide Joint GH Grade II Body Position hook Reps/Duration 2 min Manual Techniques MWM shld ER Body Position Hooklying PT-OP-R Modalities Start: 01/04/24 17:17 Freq: Status: Active Protocol: Document 03/11/24 08:16 [facility] (Rec: 03/11/24 09:02 [facility] [id number]) Hot Pack/Cold Pack Treatment Hot Pack Location right shoulder Patient Position Hooklying Comments 10 min Infrared Treatment Treatment right anterior shoulder Body Position Hooklying Continuous/Pulsed Continuous Program or Protocal chronic pain and stiffness Comments 58 sec x8 R anterior and lateral shld Iontophoresis Treatment R shld Treatment Medication Dexamethasone (-) Medication Amount (mL) (ml) 1 Medication Dosage 4 hr patch (IH doesn't have 6 hr patch) Patient Tolerance Good PT-OP-T Assessment and Plan Start: 01/04/24 17:17 Freq: Status: Active Protocol: Document 03/11/24 08:16 [facility] (Rec: 03/11/24 09:02 [facility] [id number]) Physical Therapy Assessment Goals Two Impairment ROM and strength impairments right shoulder Impairment pain as high as 7/10 Short Term Goal (STG) Patient to be instructed in individualized progressive HEP for purposes of increasing her right shoulder ROM and strength 02/19/24: goal met, compliance improving STG Duration goal met Crew Leader Goal (LTG) Patient will be independnet and compliance with HEP and demonstrate right shoulder ROM WFL and improve strength to at least 4+/5 all muscle groups LTG Duration 04/09/24 Three Impairment Activity tolerance Impairment Quickdash UE score 47% Short Term Goal (STG) Decrease Quickdash score to no greater than 35% as measure of improved functional activity tolerance STG Duration 02/10/24 Residential Goal (LTG) Decrease Quickdash score to no greater than 15% as measure of improved functional activity tolerance and quality of life LTG Duration 04/09/24 One Impairment function-limiting pain Impairment unable to reach overhead or behind her back right UE due to pain ant R shoulder Short Term Goal (STG) Decrease pain by at least 50% to allow patient to return to light activities with left UE 02/19/24: dec pain after PT but pain persists, goal not met STG Duration 02/10/24 Residential Goal (LTG) Decrease pain by at least 75% with to allow patient to return to all prior activies including reaching overhead and behind her back and working at [employer] without an increase in pain LTG Duration 04/09/24 Assessment Summary Assessment Limited follow through with HEP citing so busy though did get pulleys set up and reports has been using. No MRI scheduled yet, urged to call for appointment, inc HEP compliance. Physical Therapy Plan Frequency and Duration Frequency of Treatment 2x/Week Duration of treatment (weeks) 12 Plan of Care Start Date 01/08/24 Plan of Care End Date 04/09/24 Therapeutic Interventions Therapeutic Interventions Home Exercise Program,Joint Mobilizations,Manual Therapy, Patient/Caregiver Education, Self-Care/Home Management,Soft Tissue Mobilization,Taping, Therapeutic Activities, Therapeutic Exercises Modalities Cold Pack/Ice Massage,Electric Stimulation,Hot Packs, Infrared Therapy,Iontophoresis ,Ultrasound Next Visit Focus/Plan Next Note Type Treatment Note Next Visit Plan Check when MRI R shld scheduled [place]. PT Check L hip pain next tx. Check imaging results when testing done. Continue PT per POC Continue gentle ther ex for right shoulder ROM and strengthening tolerance, encourage increased and complete compliance to HEP. GH jt mob focused on inf glide, and posterior glide, possible MWM for right shoulder ER.
--- NOTE | 2024-04-03 12:11 | PT.OTN ---
Current Diagnoses Primary osteoarthritis, right shoulder (04/03/24) Pain in right shoulder (04/03/24) Weakness (04/03/24) Presence of right artificial hip joint (04/03/24) Physical Therapy Treatment Note PT-OP-A Visit Information Start: 01/04/24 17:17 Freq: Status: Active Protocol: Document 04/03/24 09:06 SAK (Rec: 04/03/24 09:43 [facility] [id number]) Out-Patient Physical Therapy Visit Information Visit Information Visit Type Treatment Note Visit Note 11/30 post PN Visit Start Time 09:06 Visit Stop Time 10:03 Visit Number 14 Number of TIMBER HARVESTER OPERATOR Visits 0 Evaluation Information Evaluation Date 01/08/24 Precautions Precautions spinal fusions, 2 TKA, left TSA. PT-OP-B Current Condition Start: 01/04/24 17:17 Freq: Status: Active Protocol: Document 04/03/24 09:06 SAK (Rec: 04/03/24 09:43 [facility] [id number]) Current Condition History of Current Condition Onset Date April 2023 Current Complaints right shoulder pain History of Current Condition Had to lay on right shoulder and push up with it after GIUSEPPE last fall with gradual onset right shoulder pain and dysfunction. Now reporting pain and weakness, denies N/T. Overall seems to be getting worse, states she babies it. Patient is left handed. States at times she can't even lift a coffee cup. Can't reach overhead, behind her back, has to use adaptive equipement to wash her back. Just got back from trip to [place], had to modify how she managed her luggage. Prior Treatments and Tests None, no ice or heat Future Testing and Treatments Planned Having OMT for neck and back PT-OP-C Subjective Start: 01/04/24 17:17 Freq: Status: Active Protocol: Document 04/03/24 09:06 SAK (Rec: 04/03/24 09:43 [facility] [id number]) OP-PT Subjective Patient Comments Patient Comments Coming along with right shoulder.Doing HEP. Pain right shoulder anterior with elevation, comes and goes Arthrogram end of the month. Reports hip feeling fine PT-OP-F Manual Assessment Start: 01/04/24 17:17 Freq: Status: Active Protocol: Document 01/08/24 14:32 SAK (Rec: 01/10/24 10:28 SAK [id number]) Manual Assessments Soft Tissue Assessment Soft Tissue Mobility Assessment tender to palpation anterior GH joint Joint Mobility Assessment Joint Mobility Assessment dec post and inf glide, pain anterior aspect GH with pressure PT-OP-H Neuro Start: 01/04/24 17:17 Freq: Status: Active Protocol: Document 01/08/24 14:32 [facility] (Rec: 01/10/24 10:28 [facility] [id number]) Sensation Evaluation Gross Sensation Gross Sensation WNL PT-OP-J Posture/Palpation/Skin Start: 01/04/24 17:17 Freq: Status: Active Protocol: Document 01/08/24 14:32 [facility] (Rec: 01/10/24 10:28 [facility] [id number]) Posture Evaluation Position Sitting Head/C-Spine Posture Forward Head T-Spine Posture Increased Kyphosis Shoulder Posture (L) Rounded,(R) Rounded Scapula Posture (R) Protracted,(L) Retracted Arm Posture (L) Internally Rotated,(R) Internally Rotated Palpation Assessment Location right shoulder Palpation Location anterior Palpation Findings Muscle Guarding,Tenderness Skin Assessment Other Assessments Skin Assessment Comments intact PT-OP-K Range of Motion Start: 01/04/24 17:17 Freq: Status: Active Protocol: Document 01/08/24 14:32 [facility] (Rec: 01/08/24 15:21 [facility] [id number]) Cervical Spine Range of Motion Cervical Spine Active Comments WFL Shoulder Goniometric Range of Motion Shoulder Left Flexion 165 Extension 22 Abduction 160 External Rotation at 45 degrees 65 Abduction External Rotation at 0 degrees Abduction 60 Internal Rotation Behind Back (text) L4 Right Active Flexion 97 Extension 9 Abduction 120 External Rotation at 45 degrees 21 Abduction External Rotation at 0 degrees Abduction 14 Internal Rotation Behind Back (text) posterior buttock Elbow/Forearm Range of Motion Elbow/Forearm kianna Elbow/Forearm ROM WFL Yes PT-OP-L Special Tests Start: 01/04/24 17:17 Freq: Status: Active Protocol: Document 01/08/24 14:32 [facility] (Rec: 01/10/24 10:28 [facility] [id number]) Special Tests Shoulder Special Tests [place] Test Test Results positive right Grind Labrum Test Results positive right Empty Can Test Results negative Passive ER Rotator Cuff Test Results negative Elevation Impingement Test Results negative PT-OP-M Strength Start: 01/04/24 17:17 Freq: Status: Active Protocol: Document 01/08/24 14:32 [facility] (Rec: 01/08/24 15:21 [facility] [id number]) Shoulder Strength Shoulder Manual Muscle Testing Left Flexion 4 Good Extension 4 Good Abduction (C5) 4 Good External Rotation 4- Good- Internal Rotation 4 Good Right Flexion 3- Fair- Extension 3+ Fair+ Abduction (C5) 3- Fair- External Rotation 3- Fair- Internal Rotation 4 Good Elbow/Forearm Strength Elbow and Forearm Manual Muscle Testing Right Flexion (C6) 4 Good Extension (C7) 4 Good PT-OP-Q Treatments Start: 01/04/24 17:17 Freq: Status: Active Protocol: Document 04/03/24 09:06 [facility] (Rec: 04/03/24 09:43 [facility] [id number]) Cardio Equipment Recumbent Stepper (Sci-Fit) Duration (Minutes) 5 Resistance 1 Seat Position 10 Therapeutic Exercises Supine Exercises shld flex Side right Equipment Used wand Reps/Minutes 10x shld ER Equipment Used dowel, towel roll Reps/Minutes 10x Comments cues for keeping elbow bent 90 degrees, limited ROM Sidelying Exercises shoulder flex Reps/Minutes 10x Comments with manual scapular upward rotation facil open book Reps/Minutes 5x5 Sitting Exercises pulleys Sitting Exercise Name flexion, scaption Side right Resistance AAROM- LUE assist R Reps/Minutes 20x each Comments reports increases ROM/ mobility/decreases tension Standing Exercises wall slide Standing Exercise Name FF, scaption Side bilateral Equipment Used furniture slider Reps/Minutes 8 x2 each kianna Comments cued slower pacing Manual Therapy Treatment Joint Mobilizations scap Direction ab/ad/sup/inf Grade II Body Position L side post glide Joint GH Grade II Body Position Hooklying Reps/Duration 2 min inf glide Joint GH Grade II Body Position hook Reps/Duration 2 min PT-OP-R Modalities Start: 01/04/24 17:17 Freq: Status: Active Protocol: Document 03/11/24 08:16 [facility] (Rec: 03/11/24 09:02 [facility] [id number]) Hot Pack/Cold Pack Treatment Hot Pack Location right shoulder Patient Position Hooklying Comments 10 min Infrared Treatment Treatment right anterior shoulder Body Position Hooklying Continuous/Pulsed Continuous Program or Protocal chronic pain and stiffness Comments 58 sec x8 R anterior and lateral shld Iontophoresis Treatment R shld Treatment Medication Dexamethasone (-) Medication Amount (mL) (ml) 1 Medication Dosage 4 hr patch (IH doesn't have 6 hr patch) Patient Tolerance Good PT-OP-T Assessment and Plan Start: 01/04/24 17:17 Freq: Status: Active Protocol: Document 04/03/24 09:06 [facility] (Rec: 04/03/24 09:43 [facility] [id number]) Physical Therapy Assessment Goals Two Impairment ROM and strength impairments right shoulder Impairment pain as high as 01/30 Short Term Goal (STG) Patient to be instructed in individualized progressive HEP for purposes of increasing her right shoulder ROM and strength 02/19/24: goal met, compliance improving STG Duration goal met A Auxiliary Goal (LTG) Patient will be independnet and compliance with HEP and demonstrate right shoulder ROM WFL and improve strength to at least 4+/5 all muscle groups LTG Duration 04/09/24 Three Impairment Activity tolerance Impairment Quickdash UE score 47% Short Term Goal (STG) Decrease Quickdash score to no greater than 35% as measure of improved functional activity tolerance STG Duration 02/10/24 Fdc Goal (LTG) Decrease Quickdash score to no greater than 15% as measure of improved functional activity tolerance and quality of life LTG Duration 04/09/24 One Impairment function-limiting pain Impairment unable to reach overhead or behind her back right UE due to pain ant R shoulder Short Term Goal (STG) Decrease pain by at least 50% to allow patient to return to light activities with left UE 02/19/24: dec pain after PT but pain persists, goal not met STG Duration 02/10/24 Fdc Goal (LTG) Decrease pain by at least 75% with to allow patient to return to all prior activies including reaching overhead and behind her back and working at [employer] without an increase in pain LTG Duration 04/09/24 Progress Towards Goals Progress Towards Goals Slow Progress due to Activity Tolerance Assessment Summary Assessment Progress appears to have plateaued at this time, awaiting arthrogram prior to any further PT; patient advised to continue with HEP for ROM and strengthening as tolerated. Physical Therapy Plan Hold Physical Therapy Reason For Hold plateau in progress. Awaiting arthrogram. Next Visit Focus/Plan Next Note Type Re-Evaluation Next Visit Plan pending outcome of arthrogram
--- NOTE | 2024-04-29 16:00 | PT.OPPOC ---
Physical, Occupational & Speech Therapy At [facility] Current Diagnoses Primary osteoarthritis, right shoulder (04/29/24) Pain in right shoulder (04/29/24) Weakness (04/29/24) Presence of right artificial hip joint (04/29/24) Visit Care Team Role Provider Type Cecilia Brwon DO Family Provider Physician Primary Care Provider Specialty: Medical Address: [address] [place] [address], [address], [place], [address] Email: [email or web address] Blaine Burgos DO Attending Provider Non-Staff Referring Provider Specialty: Orthopedic Surgery Address: [address], [place], [address] Email: Plan Of Care PT-OP-B Current Condition Start: 01/04/24 17:17 Freq: Status: Active Protocol: Document 04/29/24 11:26 [facility] (Rec: 04/29/24 12:18 [facility] [id number]) Current Condition History of Current Condition Onset Date April 2023 Current Complaints right shoulder pain History of Current Condition Had to lay on right shoulder and push up with it after GIUSEPPE last fall with gradual onset right shoulder pain and dysfunction. Now reporting pain and weakness, denies N/T. Overall seems to be getting worse, states she babies it. Patient is left handed. States at times she can't even lift a coffee cup. Can't reach overhead, behind her back, has to use adaptive equipement to wash her back. Just got back from trip to [place], had to modify how she managed her luggage. Prior Treatments and Tests None, no ice or heat Future Testing and Treatments Planned Having OMT for neck and back PT-OP-T Assessment and Plan Start: 01/04/24 17:17 Freq: Status: Active Protocol: Document 04/29/24 11:26 [facility] (Rec: 04/29/24 12:18 [facility] [id number]) Physical Therapy Assessment Goals Two Impairment ROM and strength impairments right shoulder Impairment pain as high as 10 Short Term Goal (STG) Patient to be instructed in individualized progressive HEP for purposes of increasing her right shoulder ROM and strength 02/19/24: goal met, compliance improving STG Duration goal met Senior Living Goal (LTG) Patient will be independnet and compliance with HEP and demonstrate right shoulder ROM WFL and improve strength to at least 4+/5 all muscle groups 04/29/24: R shoulder flex 135, abd 118, IR lateral hip, ER 27 (pain end range all motions). Strength all motions limited by pain, lacking full antigravity grades at 3-/5 right shoulder LTG Duration 06/03/24 Three Impairment Activity tolerance Impairment Quickdash UE score 47% Short Term Goal (STG) Decrease Quickdash score to no greater than 35% as measure of improved functional activity tolerance 04/29/24: goal met 34% STG Duration goal met Senior Living Goal (LTG) Decrease Quickdash score to no greater than 15% as measure of improved functional activity tolerance and quality of life LTG Duration 06/03/24 One Impairment function-limiting pain Impairment unable to reach overhead or behind her back right UE due to pain ant R shoulder Short Term Goal (STG) Decrease pain by at least 50% to allow patient to return to light activities with left UE 02/19/24: dec pain after PT but pain persists, goal not met 04/29/24: not met Senior Living Goal (LTG) Decrease pain by at least 75% with to allow patient to return to all prior activies including reaching overhead and behind her back and working at [employer] without an increase in pain LTG Duration 06/03/24 Progress Towards Goals Progress Towards Goals Slow Progress due to Activity Tolerance Assessment Summary Assessment Right shoulder arthrogram showed 1. severe glenohumeral OA with humeral head remodeling, synovitis, labral tearing, articular carilage loss, reactive marrow edema at the glenoid, and intra- articular bodies ( predominantly in the long head of the biceps tendon sheath) 2 multifocal, partial width, partial thickness, articular sided supraspinatus tears, superimposed on mild tendinosis 3. partial width, partial thickness, articular sided infraspinatur tears, superimposed on mild tendinosis 4. moderate subscapularis tendinosis, 5. complete fatty replacement of the teres minor, superimposed on mild tendinosis. No compressive etiology in the quadrilateral space 6. severe acromioclavicular OA with post traumatic remodeling. Has made some goal progress but is still quite limited in right shoulder function. Will be consulting orthopedist Dr. Burgos. Physical Therapy Plan Frequency and Duration Frequency of Treatment 2x/Week Duration of treatment (weeks) 8 Plan of Care Start Date 04/03/24 Plan of Care End Date 06/03/24 Therapeutic Interventions Therapeutic Interventions Home Exercise Program,Joint Mobilizations,Manual Therapy, Patient/Caregiver Education, Self-Care/Home Management,Soft Tissue Mobilization,Taping, Therapeutic Activities, Therapeutic Exercises Modalities Cold Pack/Ice Massage,Electric Stimulation,Hot Packs, Infrared Therapy,Iontophoresis ,Ultrasound Next Visit Focus/Plan Next Note Type Treatment Note Next Visit Plan Review HEP, continue PT pending recommendations from orthopedist for gentle ROM, strengthening, modalities and manual therapy for pain reduction. Plan of Care Dates Plan of Care Start Date 04/03/24 Plan of Care End Date 06/03/24 Electronically Signed by: Martina Feng, PT 04/30/24 [id number] If you are in agreement with this Plan of Care, please return a signed and dated copy. I have reviewed this Plan of Care and certify that the skilled therapy services above are required to meet the patient?s needs. Physician Signature Date Printed Name and Credentials Clinical Instructor Signature Printed Name and Credentials
--- NOTE | 2024-04-29 16:00 | PT.OTRE ---
Current Diagnoses Primary osteoarthritis, right shoulder (04/29/24) Pain in right shoulder (04/29/24) Weakness (04/29/24) Presence of right artificial hip joint (04/29/24) Past Medical History (Last Reviewed 03/05/24 @ 11:41 by Jason Austin PA-C) Acute UTI Asthma Cataract Chronic back pain CTS (carpal tunnel syndrome) JOHNSON (dyspnea on exertion) Epidermal cyst (~04/2023) Essential hypertension (04/25/17) Greater trochanteric bursitis of left hip Ground-level fall Hypercalcemia Hyperlipidemia Hyperparathyroidism Hypertension Left hamstring injury Left hamstring muscle strain Measles Osteoarthritis Osteoarthritis of right hip Strain of adductor nando muscle Strain of right psoas muscle Supraspinatus tendon tear Tachycardia determined by examination of pulse Unspecified asthma (07/11/12) Upper respiratory tract infection due to COVID-19 virus Varicose veins of left lower extremity Surgical History (Last Reviewed 03/05/24 @ 11:41 by Jason Austin PA-C) Anesthesia H/O colonoscopy with polypectomy (~10/2020) History of knee replacement (2016) History of spinal fusion (06/2009) History of spinal fusion (2011) Status post parathyroidectomy (2015) Status post tonsillectomy and adenoidectomy (1947) Visit Care Team Role Provider Type Cecilia Brown DO Family Provider Physician Primary Care Provider Specialty: Medical Address: [address] [place] [address], [address], [address] Email: [email or web address] Blaine Burgos DO Attending Provider Non-Staff Referring Provider Specialty: Orthopedic Surgery Address: [address] [place] [address], [address] Email: Physical Therapy Re-Evaluation PT-OP-A Visit Information Start: 01/04/24 17:17 Freq: Status: Active Protocol: Document 04/29/24 11:26 [facility] (Rec: 04/29/24 12:18 [facility] [id number]) Out-Patient Physical Therapy Visit Information Visit Information Visit Type Treatment Note Visit Note 11/30 post PN Visit Start Time 11:27 Visit Stop Time 12:25 Visit Number 15 Number of ECOLOGICAL TECHNICAL OFFICER Visits 0 Evaluation Information Evaluation Date 01/08/24 Precautions Precautions spinal fusions, 2 TKA, left TSA. PT-OP-B Current Condition Start: 01/04/24 17:17 Freq: Status: Active Protocol: Document 04/29/24 11:26 [facility] (Rec: 04/29/24 12:18 [facility] [id number]) Current Condition History of Current Condition Onset Date April 2023 Current Complaints right shoulder pain History of Current Condition Had to lay on right shoulder and push up with it after GIUSEPPE last fall with gradual onset right shoulder pain and dysfunction. Now reporting pain and weakness, denies N/T. Overall seems to be getting worse, states she babies it. Patient is left handed. States at times she can't even lift a coffee cup. Can't reach overhead, behind her back, has to use adaptive equipement to wash her back. Just got back from trip to [place], had to modify how she managed her luggage. Prior Treatments and Tests None, no ice or heat Future Testing and Treatments Planned Having OMT for neck and back PT-OP-C Subjective Start: 01/04/24 17:17 Freq: Status: Active Protocol: Document 04/29/24 11:26 [facility] (Rec: 04/29/24 12:18 [facility] [id number]) OP-PT Subjective Patient Comments Patient Comments Had arthrogram 04/19/24 right shoulder, brought report. See assessment for results. Has appointment with Dr. Burgos this . Reports pain variable, when goes to lift something overhead arm gives way. Feels theraband exercises increase the pain, likes isometrics and pulleys. Saw Dr. Brown for OMT this am; worked on one time of her back . PT-OP-F Manual Assessment Start: 01/04/24 17:17 Freq: Status: Active Protocol: Document 01/08/24 14:32 [facility] (Rec: 01/10/24 10:28 [facility] [id number]) Manual Assessments Soft Tissue Assessment Soft Tissue Mobility Assessment tender to palpation anterior GH joint Joint Mobility Assessment Joint Mobility Assessment dec post and inf glide, pain anterior aspect GH with pressure PT-OP-H Neuro Start: 01/04/24 17:17 Freq: Status: Active Protocol: Document 01/08/24 14:32 [facility] (Rec: 01/10/24 10:28 [facility] [id number]) Sensation Evaluation Gross Sensation Gross Sensation WNL PT-OP-J Posture/Palpation/Skin Start: 01/04/24 17:17 Freq: Status: Active Protocol: Document 01/08/24 14:32 [facility] (Rec: 01/10/24 10:28 [facility] [id number]) Posture Evaluation Position Sitting Head/C-Spine Posture Forward Head T-Spine Posture Increased Kyphosis Shoulder Posture (L) Rounded,(R) Rounded Scapula Posture (R) Protracted,(L) Retracted Arm Posture (L) Internally Rotated,(R) Internally Rotated Palpation Assessment Location right shoulder Palpation Location anterior Palpation Findings Muscle Guarding,Tenderness Skin Assessment Other Assessments Skin Assessment Comments intact PT-OP-K Range of Motion Start: 01/04/24 17:17 Freq: Status: Active Protocol: Document 01/08/24 14:32 [facility] (Rec: 01/08/24 15:21 [facility] [id number]) Cervical Spine Range of Motion Cervical Spine Active Comments WFL Shoulder Goniometric Range of Motion Shoulder Measured in Degrees Left Flexion 165 Extension 22 Abduction 160 External Rotation at 45 degrees 65 Abduction External Rotation at 0 degrees Abduction 60 Internal Rotation Behind Back (text) L4 Right Active Flexion 97 Extension 9 Abduction 120 External Rotation at 45 degrees 21 Abduction External Rotation at 0 degrees Abduction 14 Internal Rotation Behind Back (text) posterior buttock Elbow/Forearm Range of Motion Elbow/Forearm Measured in Degrees kianna Elbow/Forearm ROM WFL Yes PT-OP-L Special Tests Start: 01/04/24 17:17 Freq: Status: Active Protocol: Document 01/08/24 14:32 [facility] (Rec: 01/10/24 10:28 [facility] [id number]) Special Tests Shoulder Special Tests Vance Test Test Results positive right Grind Labrum Test Results positive right Empty Can Test Results negative Passive ER Rotator Cuff Test Results negative Elevation Impingement Test Results negative PT-OP-M Strength Start: 01/04/24 17:17 Freq: Status: Active Protocol: Document 01/08/24 14:32 [facility] (Rec: 01/08/24 15:21 [facility] [id number]) Shoulder Strength Shoulder Manual Muscle Testing Left Flexion 4 Good Extension 4 Good Abduction (C5) 4 Good External Rotation 4- Good- Internal Rotation 4 Good Right Flexion 3- Fair- Extension 3+ Fair+ Abduction (C5) 3- Fair- External Rotation 3- Fair- Internal Rotation 4 Good Elbow/Forearm Strength Elbow and Forearm Manual Muscle Testing Right Flexion (C6) 4 Good Extension (C7) 4 Good PT-OP-Q Treatments Start: 01/04/24 17:17 Freq: Status: Active Protocol: Document 04/29/24 11:26 [facility] (Rec: 04/29/24 12:18 [facility] [id number]) Therapeutic Exercises Supine Exercises shld flex Side right Equipment Used wand Reps/Minutes 10x shld ER Equipment Used dowel, towel roll Reps/Minutes 10x Comments cues for keeping elbow bent 90 degrees, limited ROM Sidelying Exercises open book Reps/Minutes 5x5 Comments verbal and tactile cues Sitting Exercises ball roll Sitting Exercise Name standing first, then sitting for inc ROM Side right Resistance AAROM Equipment Used 65 cm ball on table, seated table slide Reps/Minutes 10x each position Comments cued split stance wt shift Lfwd/Rbck, chest toward table PT-OP-R Modalities Start: 01/04/24 17:17 Freq: Status: Active Protocol: Document 04/29/24 11:26 [facility] (Rec: 04/29/24 12:21 [facility] [id number]) Hot Pack/Cold Pack Treatment Hot Pack Location right shoulder Patient Position Hooklying Infrared Treatment Treatment right anterior shoulder Body Position Hooklying Continuous/Pulsed Continuous Program or Protocal chronic pain and stiffness Comments 58 sec x6 R anterior and lateral shld PT-OP-T Assessment and Plan Start: 01/04/24 17:17 Freq: Status: Active Protocol: Document 04/29/24 11:26 [facility] (Rec: 04/29/24 12:18 [facility] [id number]) Physical Therapy Assessment Goals Two Impairment ROM and strength impairments right shoulder Impairment pain as high as 7/10 Short Term Goal (STG) Patient to be instructed in individualized progressive HEP for purposes of increasing her right shoulder ROM and strength 02/19/24: goal met, compliance improving STG Duration goal met Half-Way Goal (LTG) Patient will be independnet and compliance with HEP and demonstrate right shoulder ROM WFL and improve strength to at least 4+/5 all muscle groups 04/29/24: R shoulder flex 135, abd 118, IR lateral hip, ER 27 (pain end range all motions). Strength all motions limited by pain, lacking full antigravity grades at 3-/5 right shoulder LTG Duration 06/03/24 Three Impairment Activity tolerance Impairment Quickdash UE score 47% Short Term Goal (STG) Decrease Quickdash score to no greater than 35% as measure of improved functional activity tolerance 04/29/24: goal met 34% STG Duration goal met Half-Way Goal (LTG) Decrease Quickdash score to no greater than 15% as measure of improved functional activity tolerance and quality of life LTG Duration 06/03/24 One Impairment function-limiting pain Impairment unable to reach overhead or behind her back right UE due to pain ant R shoulder Short Term Goal (STG) Decrease pain by at least 50% to allow patient to return to light activities with left UE 02/19/24: dec pain after PT but pain persists, goal not met 04/29/24: not met Half-Way Goal (LTG) Decrease pain by at least 75% with to allow patient to return to all prior activies including reaching overhead and behind her back and working at [employer] without an increase in pain LTG Duration 06/03/24 Progress Towards Goals Progress Towards Goals Slow Progress due to Activity Tolerance Assessment Summary Assessment Right shoulder arthrogram showed 1. severe glenohumeral OA with humeral head remodeling, synovitis, labral tearing, articular carilage loss, reactive marrow edema at the glenoid, and intra- articular bodies ( predominantly in the long head of the biceps tendon sheath) 2 multifocal, partial width, partial thickness, articular sided supraspinatus tears, superimposed on mild tendinosis 3. partial width, partial thickness, articular sided infraspinatur tears, superimposed on mild tendinosis 4. moderate subscapularis tendinosis, 5. complete fatty replacement of the teres minor, superimposed on mild tendinosis. No compressive etiology in the quadrilateral space 6. severe acromioclavicular OA with post traumatic remodeling. Has made some goal progress but is still quite limited in right shoulder function. Will be consulting orthopedist Dr. Burgos. Physical Therapy Plan Frequency and Duration Frequency of Treatment 2x/Week Duration of treatment (weeks) 8 Plan of Care Start Date 04/03/24 Plan of Care End Date 06/03/24 Therapeutic Interventions Therapeutic Interventions Home Exercise Program,Joint Mobilizations,Manual Therapy, Patient/Caregiver Education, Self-Care/Home Management,Soft Tissue Mobilization,Taping, Therapeutic Activities, Therapeutic Exercises Modalities Cold Pack/Ice Massage,Electric Stimulation,Hot Packs, Infrared Therapy,Iontophoresis ,Ultrasound Next Visit Focus/Plan Next Note Type Treatment Note Next Visit Plan Review HEP, continue PT pending recommendations from orthopedist for gentle ROM, strengthening, modalities and manual therapy for pain reduction.
--- NOTE | 2024-05-01 10:41 | PT.OTN ---
Current Diagnoses Primary osteoarthritis, right shoulder (05/01/24) Pain in right shoulder (05/01/24) Weakness (05/01/24) Presence of right artificial hip joint (05/01/24) Physical Therapy Treatment Note PT-OP-A Visit Information Start: 01/04/24 17:17 Freq: Status: Active Protocol: Document 05/01/24 09:48 SAK (Rec: 05/01/24 10:41 SAK [id number]) Out-Patient Physical Therapy Visit Information Visit Information Visit Type Treatment Note Visit Note 01/30 post PN Visit Start Time 09:49 Visit Number 16 Number of PIPE FITTER SOFT COPPER Visits 0 Evaluation Information Evaluation Date 01/08/24 Precautions Precautions spinal fusions, 2 TKA, left TSA. PT-OP-B Current Condition Start: 01/04/24 17:17 Freq: Status: Active Protocol: Document 05/01/24 09:48 SAK (Rec: 05/01/24 10:41 SAK [id number]) Current Condition History of Current Condition Onset Date April 2023 Current Complaints right shoulder pain History of Current Condition Had to lay on right shoulder and push up with it after GIUSEPPE last fall with gradual onset right shoulder pain and dysfunction. Now reporting pain and weakness, denies N/T. Overall seems to be getting worse, states she babies it. Patient is left handed. States at times she can't even lift a coffee cup. Can't reach overhead, behind her back, has to use adaptive equipement to wash her back. Just got back from trip to [place], had to modify how she managed her luggage. Prior Treatments and Tests None, no ice or heat Future Testing and Treatments Planned Having OMT for neck and back PT-OP-C Subjective Start: 01/04/24 17:17 Freq: Status: Active Protocol: Document 05/01/24 09:48 SAK (Rec: 05/01/24 10:41 SAK [id number]) OP-PT Subjective Patient Comments Patient Comments Shoulder better initially after PT, then same. Brought HEP for review, modification PRN. Sees Dr. Burgos tomorrow. PT-OP-F Manual Assessment Start: 01/04/24 17:17 Freq: Status: Active Protocol: Document 01/08/24 14:32 SAK (Rec: 01/10/24 10:28 SAK [id number]) Manual Assessments Soft Tissue Assessment Soft Tissue Mobility Assessment tender to palpation anterior GH joint Joint Mobility Assessment Joint Mobility Assessment dec post and inf glide, pain anterior aspect GH with pressure PT-OP-H Neuro Start: 01/04/24 17:17 Freq: Status: Active Protocol: Document 01/08/24 14:32 [facility] (Rec: 01/10/24 10:28 [facility] [id number]) Sensation Evaluation Gross Sensation Gross Sensation WNL PT-OP-J Posture/Palpation/Skin Start: 01/04/24 17:17 Freq: Status: Active Protocol: Document 01/08/24 14:32 [facility] (Rec: 01/10/24 10:28 [facility] [id number]) Posture Evaluation Position Sitting Head/C-Spine Posture Forward Head T-Spine Posture Increased Kyphosis Shoulder Posture (L) Rounded,(R) Rounded Scapula Posture (R) Protracted,(L) Retracted Arm Posture (L) Internally Rotated,(R) Internally Rotated Palpation Assessment Location right shoulder Palpation Location anterior Palpation Findings Muscle Guarding,Tenderness Skin Assessment Other Assessments Skin Assessment Comments intact PT-OP-K Range of Motion Start: 01/04/24 17:17 Freq: Status: Active Protocol: Document 01/08/24 14:32 [facility] (Rec: 01/08/24 15:21 [facility] [id number]) Cervical Spine Range of Motion Cervical Spine Active Comments WFL Shoulder Goniometric Range of Motion Shoulder Left Flexion 165 Extension 22 Abduction 160 External Rotation at 45 degrees 65 Abduction External Rotation at 0 degrees Abduction 60 Internal Rotation Behind Back (text) L4 Right Active Flexion 97 Extension 9 Abduction 120 External Rotation at 45 degrees 21 Abduction External Rotation at 0 degrees Abduction 14 Internal Rotation Behind Back (text) posterior buttock Elbow/Forearm Range of Motion Elbow/Forearm kianna Elbow/Forearm ROM WFL Yes PT-OP-L Special Tests Start: 01/04/24 17:17 Freq: Status: Active Protocol: Document 01/08/24 14:32 [facility] (Rec: 01/10/24 10:28 [facility] [id number]) Special Tests Shoulder Special Tests [place] Test Test Results positive right Grind Labrum Test Results positive right Empty Can Test Results negative Passive ER Rotator Cuff Test Results negative Elevation Impingement Test Results negative PT-OP-M Strength Start: 01/04/24 17:17 Freq: Status: Active Protocol: Document 01/08/24 14:32 [facility] (Rec: 01/08/24 15:21 [facility] [id number]) Shoulder Strength Shoulder Manual Muscle Testing Left Flexion 4 Good Extension 4 Good Abduction (C5) 4 Good External Rotation 4- Good- Internal Rotation 4 Good Right Flexion 3- Fair- Extension 3+ Fair+ Abduction (C5) 3- Fair- External Rotation 3- Fair- Internal Rotation 4 Good Elbow/Forearm Strength Elbow and Forearm Manual Muscle Testing Right Flexion (C6) 4 Good Extension (C7) 4 Good PT-OP-Q Treatments Start: 01/04/24 17:17 Freq: Status: Active Protocol: Document 05/01/24 09:48 [facility] (Rec: 05/01/24 10:41 [facility] [id number]) Therapeutic Exercises Supine Exercises shld flex Side bilateral Equipment Used wand Reps/Minutes 10x Prone Exercises hor ab/T Side right Reps/Minutes 10x Comments cues for scapular activation first Sidelying Exercises sleeper stretch Reps/Minutes 10x shoulder ER Reps/Minutes 10x open book Reps/Minutes 5x5 Comments verbal and tactile cues Sitting Exercises sh ext Side right Resistance AAROM Equipment Used dowel Reps/Minutes 10x Comments cues for painfree ROM, no anterior translation head of huerus sh ER Side right Equipment Used dowel- black PVC, towel under arm Reps/Minutes 10x Comments cues for elbow at side, flexed 90 (hand high as check) maintain /c ER pulleys Sitting Exercise Name HEP Manual Therapy Treatment Joint Mobilizations scap Direction ab/ad/sup/inf Grade II Body Position L side Reps/Duration 5 min post glide Joint GH Grade II Body Position Hooklying Reps/Duration 2 min inf glide Joint GH Grade II Body Position hook Reps/Duration 2 min PT-OP-R Modalities Start: 01/04/24 17:17 Freq: Status: Active Protocol: Document 05/01/24 09:48 [facility] (Rec: 05/01/24 10:41 [facility] [id number]) Hot Pack/Cold Pack Treatment Hot Pack Location right shoulder Patient Position Hooklying Infrared Treatment Treatment right anterior shoulder Body Position Hooklying Continuous/Pulsed Continuous Program or Protocal chronic pain and stiffness Comments 58 sec x6 R anterior and lateral shld PT-OP-T Assessment and Plan Start: 01/04/24 17:17 Freq: Status: Active Protocol: Document 05/01/24 09:48 [facility] (Rec: 05/01/24 10:41 [facility] [id number]) Physical Therapy Assessment Goals Two Impairment ROM and strength impairments right shoulder Impairment pain as high as 01/30 Short Term Goal (STG) Patient to be instructed in individualized progressive HEP for purposes of increasing her right shoulder ROM and strength 02/19/24: goal met, compliance improving STG Duration goal met Fpc Goal (LTG) Patient will be independnet and compliance with HEP and demonstrate right shoulder ROM WFL and improve strength to at least 4+/5 all muscle groups 04/29/24: R shoulder flex 135, abd 118, IR lateral hip, ER 27 (pain end range all motions). Strength all motions limited by pain, lacking full antigravity grades at 3-/5 right shoulder LTG Duration 06/03/24 Three Impairment Activity tolerance Impairment Quickdash UE score 47% Short Term Goal (STG) Decrease Quickdash score to no greater than 35% as measure of improved functional activity tolerance 04/29/24: goal met 34% STG Duration goal met Tire Trucker Goal (LTG) Decrease Quickdash score to no greater than 15% as measure of improved functional activity tolerance and quality of life LTG Duration 06/03/24 One Impairment function-limiting pain Impairment unable to reach overhead or behind her back right UE due to pain ant R shoulder Short Term Goal (STG) Decrease pain by at least 50% to allow patient to return to light activities with left UE 02/19/24: dec pain after PT but pain persists, goal not met 04/29/24: not met Fpc Goal (LTG) Decrease pain by at least 75% with to allow patient to return to all prior activies including reaching overhead and behind her back and working at [employer] without an increase in pain LTG Duration 06/03/24 Progress Towards Goals Progress Towards Goals Slow Progress due to Activity Tolerance,Slow Progress due to Medical Issues Assessment Summary Assessment Reviewed HEP with patient demonstrating improved understanding after review and elimination of TB ex due to pain, updated written HO. Sees Dr. Burgos tomorrow. Physical Therapy Plan Frequency and Duration Frequency of Treatment 2x/Week Duration of treatment (weeks) 8 Plan of Care Start Date 04/03/24 Plan of Care End Date 06/03/24 Therapeutic Interventions Therapeutic Interventions Home Exercise Program,Joint Mobilizations,Manual Therapy, Patient/Caregiver Education, Self-Care/Home Management,Soft Tissue Mobilization,Taping, Therapeutic Activities, Therapeutic Exercises Modalities Cold Pack/Ice Massage,Electric Stimulation,Hot Packs, Infrared Therapy,Iontophoresis ,Ultrasound Next Visit Focus/Plan Next Note Type Treatment Note Next Visit Plan Possibly continue PT, pending any further recommendations from Dr. Burgos
--- NOTE | 2024-06-10 12:00 | PT.OPDS ---
Current Diagnoses Primary osteoarthritis, right shoulder (05/01/24) Pain in right shoulder (05/01/24) Weakness (05/01/24) Presence of right artificial hip joint (05/01/24) Visit Care Team Role Provider Type Cecilia Brown DO Family Provider Physician Primary Care Provider Specialty: Medical Address: [address] [facility] [facility], [address], [place], [address] Email: [email or web address] Blaine Burgos DO Attending Provider Non-Staff Referring Provider Specialty: Orthopedic Surgery Address: [address] [facility], [place], [address] Email: Visit Number Visit Number 16 Discharge Summary PT-OP-B Current Condition Start: 01/04/24 17:17 Freq: Status: Active Protocol: Document 05/01/24 09:48 SAK (Rec: 05/01/24 10:41 SAK [id number]) Current Condition History of Current Condition Onset Date April 2023 Current Complaints right shoulder pain History of Current Condition Had to lay on right shoulder and push up with it after GIUSEPPE last fall with gradual onset right shoulder pain and dysfunction. Now reporting pain and weakness, denies N/T. Overall seems to be getting worse, states she babies it. Patient is left handed. States at times she can't even lift a coffee cup. Can't reach overhead, behind her back, has to use adaptive equipement to wash her back. Just got back from trip to [place], had to modify how she managed her luggage. Prior Treatments and Tests None, no ice or heat Future Testing and Treatments Planned Having OMT for neck and back PT-OP-C Subjective Start: 01/04/24 17:17 Freq: Status: Active Protocol: Document 05/01/24 09:48 SAK (Rec: 05/01/24 10:41 SAK [id number]) OP-PT Subjective Patient Comments Patient Comments Shoulder better initially after PT, then same. Brought HEP for review, modification PRN. Sees Dr. Burgos tomorrow. PT-OP-F Manual Assessment Start: 01/04/24 17:17 Freq: Status: Active Protocol: Document 01/08/24 14:32 SAK (Rec: 01/10/24 10:28 [facility] [id number]) Manual Assessments Soft Tissue Assessment Soft Tissue Mobility Assessment tender to palpation anterior GH joint Joint Mobility Assessment Joint Mobility Assessment dec post and inf glide, pain anterior aspect GH with pressure PT-OP-H Neuro Start: 01/04/24 17:17 Freq: Status: Active Protocol: Document 01/08/24 14:32 [facility] (Rec: 01/10/24 10:28 [facility] [id number]) Sensation Evaluation Gross Sensation Gross Sensation WNL PT-OP-J Posture/Palpation/Skin Start: 01/04/24 17:17 Freq: Status: Active Protocol: Document 01/08/24 14:32 [facility] (Rec: 01/10/24 10:28 [facility] [id number]) Posture Evaluation Position Sitting Head/C-Spine Posture Forward Head T-Spine Posture Increased Kyphosis Shoulder Posture (L) Rounded,(R) Rounded Scapula Posture (R) Protracted,(L) Retracted Arm Posture (L) Internally Rotated,(R) Internally Rotated Palpation Assessment Location right shoulder Palpation Location anterior Palpation Findings Muscle Guarding,Tenderness Skin Assessment Other Assessments Skin Assessment Comments intact PT-OP-K Range of Motion Start: 01/04/24 17:17 Freq: Status: Active Protocol: Document 01/08/24 14:32 [facility] (Rec: 01/08/24 15:21 [facility] [id number]) Cervical Spine Range of Motion Cervical Spine Active Comments WFL Shoulder Goniometric Range of Motion Shoulder Left Flexion 165 Extension 22 Abduction 160 External Rotation at 45 degrees 65 Abduction External Rotation at 0 degrees Abduction 60 Internal Rotation Behind Back (text) L4 Right Active Flexion 97 Extension 9 Abduction 120 External Rotation at 45 degrees 21 Abduction External Rotation at 0 degrees Abduction 14 Internal Rotation Behind Back (text) posterior buttock Elbow/Forearm Range of Motion Elbow/Forearm kianna Elbow/Forearm ROM WFL Yes PT-OP-L Special Tests Start: 01/04/24 17:17 Freq: Status: Active Protocol: Document 01/08/24 14:32 [facility] (Rec: 01/10/24 10:28 [facility] [id number]) Special Tests Shoulder Special Tests [place] Test Test Results positive right Grind Labrum Test Results positive right Empty Can Test Results negative Passive ER Rotator Cuff Test Results negative Elevation Impingement Test Results negative PT-OP-M Strength Start: 01/04/24 17:17 Freq: Status: Active Protocol: Document 01/08/24 14:32 [facility] (Rec: 01/08/24 15:21 [facility] [id number]) Shoulder Strength Shoulder Manual Muscle Testing Left Flexion 4 Good Extension 4 Good Abduction (C5) 4 Good External Rotation 4- Good- Internal Rotation 4 Good Right Flexion 3- Fair- Extension 3+ Fair+ Abduction (C5) 3- Fair- External Rotation 3- Fair- Internal Rotation 4 Good Elbow/Forearm Strength Elbow and Forearm Manual Muscle Testing Right Flexion (C6) 4 Good Extension (C7) 4 Good PT-OP-T Assessment and Plan Start: 01/04/24 17:17 Freq: Status: Active Protocol: Document 06/10/24 11:59 [facility] (Rec: 06/10/24 12:00 [facility] [id number]) Physical Therapy Plan Discharge Physical Therapy Discharge Reasons Change in Medical Status Discharge Comments Planning total shoulder surgery. Will need new referral for PT after surgery.
== END 2024-06-12 14:40 | disposition home or self-care (01) ==
LOC: PHYS 09:45
PROVIDERS: Family Provider Family Medicine; PCP Family Medicine; Referring Provider Orthopaedic Surgery; Visit Provider Orthopaedic Surgery
DX: Z96.641 Presence of right artificial hip joint (principal); M19.011 Primary osteoarthritis, right shoulder; M25.511 Pain in right shoulder; R53.1 Weakness
CPT/HCPCS: 97010; 97026; 97110; 97140; 97162; 97535

== ENCOUNTER → 2024-05-08 08:51 | Outpatient (CLI) | payer MEDICARE, OTHER, SELFPAY ==
[2024-05-08 10:26] LABS: Hemoglobin A1C% w Est Avg Glu 6.2 % (4.0-6.0)
--- NOTE | 2024-05-08 15:07 | EKG_ITS ---
[place] [id number] [place] [id number] Test Date: 2024-05-08 Pat Name: Jacinda Villalpando Department: [facility] Room: Gender: Female Complaint Analyst: CLIFTON : 1945 Requested By: Order Number: [id number] Reading MD: Salazar Gayle Measurements Intervals [place] Rate: 70 P: 69 CT: 168 QRS: 71 QRSD: 78 T: -52 QT: 360 QTc: 388 Interpretive Statements Normal sinus rhythm with sinus arrhythmia Possible Left atrial enlargement Septal infarct , age undetermined T wave abnormality, consider inferior ischemia Electronically Signed On 05-08-2024 18:10:12 PDT by Salazar Gayle
== END ==
LOC: LAB 08:53
PROVIDERS: Family Provider Family Medicine; PCP Family Medicine; Referring Provider Family Medicine; Visit Provider Family Medicine
DX: Z01.818 Encounter for other preprocedural examination (principal); E11.9 Type 2 diabetes mellitus without complications
CPT/HCPCS: 36415; 83036; 93005

== ENCOUNTER → 2024-06-04 13:46 | Outpatient (CLI) | payer MEDICARE, OTHER, SELFPAY ==
--- NOTE | 2024-06-04 14:20 | DIAB.MNTFU ---
Follow-up Diabetes Medical Nutrition Therapy Assessment Name: Jacinda Villalpando Date:06/04/24 Time: 2-240p Dx: Type II Diabetes Jacinda presents for Dm visit. Reports she will be getting should replacement sx and has been working on what meals she and her sister will be eating during her recovery. Endorses a limited ability to help prepare meals during recovery. Recent BG in CGM seems significantly higher than her hgA1c average. She is likely having >500mg vitamin c with supplement and protein shake. Unclear if this is the issue. Has not double checked with finger stick. Increased veggie intake when eating out, ie salads. Wants to know what she can eat to bring high BG down. Diet Recall: 8a: protein shake with water 14g CHO 11-1230: open faced sandwich with veg and protein OR salad sn:nothing or nuts 530p: half salad mix with added veg and taco meat OR salad with egg and haq +/- potatoes OR taco shells x 3 9p: cheese stick water, decaf coffee Anthropometrics: Ht: 66 Wt: 223# reported last visit Physical Activity: stationary bike 1x per week, wants to do more Self-Monitoring Blood Glucose: FSL3 indicates increased elevations and reduced time in range since last visit. Unclear how accurate this is. Today TIR 12% >250mg/dl 40% 181-250mg/dl 48% 70-180mg/dl 0% low avmg/dl GMI 8% Last Visit TIR 6% >250mg/dl 28% 181-250mg/dl 66% 70-180mg/dl 0% low avmg/dl GMI 7.6% Diabetes Medications: 500mg Metformin TID Pertinent Labs: HgA1c: 6.0% 08/2022 7.5% 02/2023 Past Medical History: (Last Reviewed 08/25/23 @ 09:26 by Artemio Barton DO) Acute UTI Asthma Remote Cataract One removed Chronic back pain Spinal fusion post injury CTS (carpal tunnel syndrome) JOHNSON (dyspnea on exertion) Epidermal cyst (~04/2023) right low back Essential hypertension (04/25/17) Greater trochanteric bursitis of left hip Ground-level fall x3 2022 Hypercalcemia hx parathyroidectomy Hyperlipidemia Hyperparathyroidism Hypertension Left hamstring injury avulsion vs strain Left hamstring muscle strain Measles Osteoarthritis Osteoarthritis of right hip s/p replacement 2022 Strain of adductor nando muscle Strain of right psoas muscle Supraspinatus tendon tear Tachycardia determined by examination of pulse Varicose veins of left lower extremity Nutrition Rx: Carbohydrates:Meal:30g Snack:15-30g Nutrition Diagnosis: - Food and nutrition related knowledge deficit r/t needing refresher on DM mnt aeb pt report and diet recall- in progress - Physical inactivity r/t stage of change preparation aeb pt report- in progress/improved Intervention: This participant was very receptive. Provided appropriate educational handouts. Discussed the following topics: Review of BG trends and encouraged some fingersticks for confirmation Review of CHO contents in foods/carb counting Pairing CHO/pro Hyperglycemia tx: water and movement Strategies for easy prep healthy meals Created SMART goals for patient self-care and success. Goals: Try Metformin 500mg AM and 1000mg PM if PCP agrees- not met Keep CHO to 30g at meals- met Start stationary bike- met use chart for CHO counting and aim for 30g- new Try finger sticks to compare CGM fasting number- new Follow-up: ALTHEA COLLIER follow-up prn. Jacinda reports having multiple appts before shoulder sx. Would like to follow-up prn. With recent hgA1c and potential for inaccuracies with CGM encouraged her to check finger sticks and reach out prn. She agreed. Carolyn Mccarty RDN, [facility] Certified Diabetes Care and Digital Developer P: [phone] Thank you for this referral
== END ==
PROVIDERS: Family Provider Family Medicine; PCP Family Medicine; Referring Provider Family Medicine
DX: E11.65 Type 2 diabetes mellitus with hyperglycemia (principal); E11.618 Type 2 diabetes mellitus with other diabetic arthropathy; Z79.84 Long term (current) use of oral hypoglycemic drugs; Z71.3 Dietary counseling and surveillance
CPT/HCPCS: 97803

== ENCOUNTER → 2024-06-17 07:54 | Outpatient (CLI) | payer MEDICARE, OTHER, SELFPAY | PROVIDERS: Family Provider Family Medicine; PCP Family Medicine; Visit Provider Nurse Practitioner Family | DX: R30.0 Dysuria (principal) | CPT/HCPCS: 87077; 87086; 87186 ==

== ENCOUNTER → 2024-07-10 07:48 | Outpatient (CLI) | payer MEDICARE, OTHER, SELFPAY ==
[2024-07-10 08:36] LABS: Appearance Urine UA CLEAR; Bilirubin Urine UA NEGATIVE (NEGATIVE); Color Urine UA YELLOW; Glucose Urine UA NEGATIVE (Negative); Ketones Urine UA NEGATIVE (NEGATIVE); Leukocyte Esterase Urine UA NEGATIVE (NEGATIVE); Nitrite Urine UA NEGATIVE (Negative); Occult Blood Urine UA NEGATIVE (Negative); Protein Urine UA TRACE (Negative); Urobilinogen Urine UA 0.2 E.U./dL (0.2)
[2024-07-10 08:42] LABS: Bacteria Urine None Seen; Culture Indicated Urine Cult Not Indicated; RBC Urine None Seen (0-5/HPF); Squamous Epithelial Cell Urine None Seen (0-5/HPF); Urine Volume 10mL (spun); WBC Urine None Seen (0-5/HPF)
[2024-07-10 10:16] LABS: Add Manual Diff / Slide Review NO; Basophils Absolute Auto 0 /uL (0-100); Basophils Percent Auto 0.8 % (0-2); Eosinophils Absolute Auto 200 /uL (0-450); Eosinophils Percent Auto 3.7 % (2-4); Hematocrit 40.6 % (36-46); Hemoglobin 13.8 g/dL (12.0-16.0); Lymphocytes Absolute Auto 1600 /uL (1100-4500); Lymphocytes Percent Auto 26.1 % (25-40); Mean Corpuscular HGB Conc 34.1 % (30-36); Mean Corpuscular Hemoglobin 30.5 PG (26-34); Mean Corpuscular Volume 89.4 fL (80-100); Monocytes Absolute Auto 500 /uL (0-900); Monocytes Percent Auto 7.8 % (3-14); Neutrophils Absolute Auto 3900 /uL (1500-7000); Neutrophils Percent Auto 61.6 % (50-75); Platelet Count 222 X10^3/uL (150-400); Red Blood Cell Count 4.54 X10^6/uL (4.0-5.2); Red Cell Distribution Width 13.4 % (11.6-14.8); White Blood Cell Count 6.3 X10^3/uL (4.5-11.0)
[2024-07-10 10:23] LABS: Hemoglobin A1C% w Est Avg Glu 6.3 % (4.0-6.0)
[2024-07-10 11:14] LABS: Alanine Aminotransferase 19 IU/L (<35); Albumin Globulin Ratio 1.9 (1.0-2.8); Alkaline Phosphatase 68 U/L (38-126); Aspartate Aminotransferase 22 IU/L (14-36); BUN Creatinine Ratio 27.9 (6-22); Bilirubin Total 0.6 mg/dL (0.2-1.3); Blood Urea Nitrogen 19 mg/dL (7-17); Calcium 9.4 mg/dL (8.4-10.2); Carbon Dioxide 25 mmol/L (22-32); Chloride 105 mmol/L (98-107); Cholesterol 176 mg/dL (140-199); Estimated Glomerular Filt Rate > 60 mL/min (>60); Globulin 2.1 g/dL (1.7-4.1); Glucose 136 mg/dL (80-110); HDL Cholesterol 47 mg/dL (40-60); HEMOLYSIS < 15 (0-50); LDL Cholesterol Calculated 112 mg/dL (<100); Sodium 137 mmol/L (137-145); Total Protein 6.1 g/dL (6.3-8.2); Triglycerides 83 mg/dL (35-150)
== END ==
PROVIDERS: Family Provider Family Medicine; PCP Family Medicine; Referring Provider Family Medicine; Visit Provider Family Medicine
DX: I10 Essential (primary) hypertension (principal); E11.9 Type 2 diabetes mellitus without complications; Z01.818 Encounter for other preprocedural examination
CPT/HCPCS: 36415; 80053; 80061; 81001; 83036; 85025

== ENCOUNTER 2024-08-15 21:13 | Emergency (ER) | payer MEDICARE, OTHER, SELFPAY ==
[2024-08-15] VITALS (10 sets, daily range): BP systolic 132–189; BP diastolic 68–86; PULSE 92–110; RESP 14–22; TEMP 36.9; O2SAT 92–96; BMI 35.5
--- NOTE | 2024-08-15 21:26 | EKG_ITS ---
[facility] [address] [place] [address] Test Date: 2024-08-15 Pat Name: Jacinda Villalpando Department: [facility] Room: Gender: Female Cigar Head Stringer: ANATOLIY HALEY : 1945 Requested By: Order Number: [id number] Reading MD: Donnie Murphy Measurements Intervals [place] Rate: 98 P: 71 ND: 166 QRS: 80 QRSD: 74 T: -40 QT: 312 QTc: 398 Interpretive Statements Normal sinus rhythm Biatrial enlargement Septal infarct , age undetermined ST & T wave abnormality, consider inferolateral ischemia Electronically Signed On 08-16-2024 12:55:50 PST by Donnie Murphy
--- NOTE | 2024-08-15 21:57 | ED.GENADULT ---
HPI - General Adult General Chief complaint: Shortness of Breath/Dyspnea Stated complaint: Surgery Monday, released yesterday,has KRIS JONES Time Seen by Provider: 08/15/24 21:43 Source: patient Mode of arrival: Ambulatory History of Present Illness HPI narrative: Patient was a 79-year-old female. Has a history of asthma and takes albuterol but states she was not had to use this in a very long time. She was not feeling any wheezing. Earlier this week she underwent a right total shoulder replacement. She has been the night in the hospital and was discharged the day afterwards. States while she was in the hospital she started to feel somewhat short of breath. No chest pain. No fevers. No coughing. She states that she feels like she was retaining fluid. She can not fit her watch what she normally wears on her left wrist as normal. She was not having any lower extremity swelling. She states this type of thing has happened to her 1 time in the past. She states she got a dose of Lasix and urinated approximately 1.5 L and felt much better. She was no history of heart failure. Related Data Home Medications Medication Instructions Recorded Confirmed cholecalciferol (vitamin D3) 25 25 mcg PO DAILY 01/22/22 08/12/24 mcg (1,000 unit) capsule Vinia PO 03/10/22 08/12/24 coenzyme Q10 PO 03/10/22 08/12/24 multivitamin 1 tab PO DAILY 03/10/22 08/12/24 vitamin K2 PO 03/10/22 08/12/24 zinc acetate 25 mg (zinc) capsule 50 mg PO DAILY 09/05/23 08/12/24 metoprolol succinate 50 mg See Rx Instructions PO .COMPLEX 12/27/23 08/12/24 tablet,extended release 24 hr quercetin PO 12/27/23 08/12/24 clonidine 0.1 mg/24 hr weekly 1 patch topical 04/06/24 08/12/24 transdermal patch estradiol 0.01% (0.1 mg/gram) vaginal 04/06/24 08/12/24 vaginal cream ketorolac 0.5 % eye drops drp EYE-BOTH 04/06/24 08/12/24 mupirocin 2 % topical ointment 1 applic topical 04/06/24 08/12/24 prednisolone acetate 1 % eye drp EYE-BOTH 04/06/24 08/12/24 drops,suspension rosuvastatin 5 mg tablet mg PO 04/06/24 08/12/24 azelastine 137 mcg (0.1 %) nasal intranasal 04/29/24 08/12/24 spray amoxicillin 500 mg capsule 500 mg PO 3XD 06/17/24 08/12/24 clonidine 0.2 mg/24 hr weekly 1 patch topical 06/25/24 08/12/24 transdermal patch Previous Rx's Medication Instructions Recorded blood-glucose meter #1 ea 05/25/22 Disabled Parking Permit #1 ea 05/09/23 blood sugar diagnostic (Blood #100 ea 08/02/23 Glucose Test strips) lancets 33 gauge #100 ea 08/02/23 FreeStyle Tiny 3 Sensor #2 ea 09/05/23 (blood-glucose sensor) isosorbide mononitrate 60 mg 60 mg PO BID #60 tabs 10/04/23 tablet,extended release 24 hr metformin 500 mg tablet 500 mg PO BIDWMEAL #180 tabs 10/04/23 furosemide 20 mg tablet 20 mg PO Q OTHER DAY leg swelling 11/24/23 #90 tabs hydralazine 50 mg tablet 50 mg PO QID #360 tabs 11/24/23 albuterol sulfate 90 mcg/actuation See Rx Instructions .Route 12/21/23 aerosol inhaler (Ventolin HFA) .COMPLEX #18 grams albuterol sulfate 2.5 mg/3 mL 2.5 mg (3 mL) inhalation Q4H PRN 12/27/23 (0.083 %) solution for nebulization wheeze #30 mL Breo Ellipta 100 mcg-25 mcg/dose 1 inh inhalation DAILY #60 ea 01/05/24 powder for inhalation (fluticasone furoate-vilanterol) cefdinir 300 mg capsule 300 mg PO BID #10 caps 06/17/24 Diovan 160 mg tablet (valsartan) 160 mg PO BID #180 tabs 07/25/24 isosorbide mononitrate 30 mg 30 mg PO BID #60 tabs 08/15/24 tablet,extended release 24 hr furosemide 20 mg tablet (Lasix) 20 mg PO DAILY PRN edema #14 tabs 08/16/24 Allergies Allergy/AdvReac Type Severity Reaction Status Date / Time gum mastic Allergy Severe rash, Verified 08/12/24 15:45 [From MASTISOL LIQUID blistering ADHESIVE] methyl salicylate Allergy Severe rash, Verified 08/12/24 15:45 [From MASTISOL LIQUID blistering ADHESIVE] storax Allergy Severe rash, Verified 08/12/24 15:45 [From MASTISOL LIQUID blistering ADHESIVE] tetracycline Allergy Mild RASH Verified 08/12/24 15:45 methylprednisolone Allergy Unknown Verified 08/12/24 15:45 adhesive AdvReac Unknown LONG, Verified 08/12/24 15:45 SKINNY, STERILE STRIPS: SURGERY Review of Systems Review of Systems ROS Unobtainable: All systems reviewed & are unremarkable except as noted in HPI and below Patient History Medical History Neck pain, acute Upper respiratory tract infection due to COVID-19 virus Acute UTI Unspecified asthma (07/11/12) Epidermal cyst (~04/2023) Left hamstring injury Osteoarthritis of right hip Ground-level fall Supraspinatus tendon tear Tachycardia determined by examination of pulse JOHNSON (dyspnea on exertion) Hyperlipidemia Strain of adductor nando muscle Strain of right psoas muscle Varicose veins of left lower extremity Greater trochanteric bursitis of left hip Left hamstring muscle strain Hypercalcemia Hyperparathyroidism Asthma Cataract CTS (carpal tunnel syndrome) Chronic back pain Osteoarthritis Hypertension Measles Essential hypertension (04/25/17) Surgical History H/O colonoscopy with polypectomy (~10/2020) Anesthesia Status post parathyroidectomy (2015) History of knee replacement (2016) History of spinal fusion (2011) History of spinal fusion (06/2009) Status post tonsillectomy and adenoidectomy (1947) Family History Father CAD (coronary artery disease) Hypertension Lewy body dementia Grandfather Heart disease Mother Leukemia Acute ITP Detached retina H/O splenectomy Grandfather Cancer of soft palate Social History household members: family housing: house pets and animals: Yes (Cat and dog) Smoking Status: Never smoker alcohol intake: never Smoking Status: Never smoker alcohol intake frequency: 0-2 drinks per day Exam Initial Vital Signs Initial Vital Signs: Vital Signs Temperature 98.4 F 08/15/24 21:16 Pulse Rate 110 H 08/15/24 21:16 Respiratory Rate 22 08/15/24 21:16 Blood Pressure 189/86 H 08/15/24 21:16 Pulse Oximetry 94 08/15/24 21:16 Oxygen Delivery Method Room Air 08/15/24 21:16 Const General: cooperative, comfortable and No ill appearing HENAZ Head: normal to inspection and normocephalic Resp Effort & Inspection: normal respiratory effort, no cough and tachypneic Auscultation: clear to auscultation bilaterally Cardio Rate: tachycardic Rhythm: regular rhythm Skin General: no rashes or lesions noted Neuro General: patient alert, patient awake, patient oriented x3 and moves all extremities Extrem Other: No lower extremity edema. She does have bilateral upper extremity edema. Her right arm is in a sling and has a bandage in place consistent with her stated surgical history. Course Orders Ordered: ED Orders 08/15/24 21:26 EKG-12 Lead Stat 08/15/24 21:28 Complete Blood Count AUTO DIFF Stat Comprehensive Metabolic Panel Stat D Dimer Stat Lipase Stat Magnesium Stat NT-proBNP (BNP-Adult 18+) Stat Troponin & CK Cardiac Panel Stat 08/15/24 21:59 XR chest 1V Stat Discontinued Medications Furosemide (Furosemide 40 Mg/4 Ml Vial) 40 mg IV NOW ONE Stop: 08/15/24 21:59 Last Admin: 08/15/24 22:04 Dose: 40 mg Documented By: LS Vital Signs Vital signs: Vital Signs - 8 hr 08/15/24 21:16 08/15/24 21:21 08/15/24 21:23 Temperature 98.4 F Pulse Rate 110 H 105 H Respiratory Rate 22 Blood Pressure 189/86 H 173/76 H Pulse Oximetry 94 96 Oxygen Delivery Method Room Air 08/15/24 21:23 08/15/24 21:36 08/15/24 21:37 Temperature Pulse Rate 104 H 97 H Respiratory Rate 19 Blood Pressure 175/75 H Pulse Oximetry 95 92 Oxygen Delivery Method 08/15/24 21:37 08/15/24 21:44 08/15/24 21:44 Temperature Pulse Rate 96 H 96 H Respiratory Rate 20 18 Blood Pressure 163/71 H Pulse Oximetry 95 95 Oxygen Delivery Method 08/15/24 22:00 08/15/24 22:00 08/15/24 22:30 Temperature Pulse Rate 93 H 92 H Respiratory Rate 20 21 Blood Pressure 168/74 H Pulse Oximetry 92 93 Oxygen Delivery Method 08/15/24 22:30 08/15/24 23:35 08/15/24 23:37 Temperature Pulse Rate 102 H 101 H Respiratory Rate 14 Blood Pressure 169/72 H Pulse Oximetry 94 96 Oxygen Delivery Method Room Air 08/15/24 23:37 Temperature Pulse Rate Respiratory Rate Blood Pressure 132/68 Pulse Oximetry Oxygen Delivery Method Medical Decision Making Lab Data Lab results reviewed: Yes I reviewed the patient's lab results. 08/15/24 21:28 08/15/24 21:28 Labs: Lab Results 08/15/24 Range/Units 21:28 WBC 10.4 (4.5-11.0) X10^3/uL RBC 4.21 (4.0-5.2) X10^6/uL Hgb 13.1 (12.0-16.0) g/dL Hct 37.9 (36-46) % MCV 89.9 (80-100) fL MCH 31.1 (26-34) PG MCHC 34.5 (30-36) % RDW 13.4 (11.6-14.8) % Plt Count 220 (150-400) X10^3/uL Neut % (Auto) 71.2 (50-75) % Lymph % (Auto) 16.3 L (25-40) % [place] % (Auto) 10.5 (3-14) % Eos % (Auto) 1.6 L (2-4) % Baso % (Auto) 0.4 (0-2) % Neut # (Auto) 7400 H (4694-8961) /uL Lymph # (Auto) 1700 (6301-4557) /uL [place] # (Auto) 1100 H (0-900) /uL Eos # (Auto) 200 (0-450) /uL Baso # (Auto) 0 (0-100) /uL D-Dimer 722 H (<500) ng/ml Sodium 136 L (137-145) mmol/L Potassium 4.3 (3.4-5.1) mmol/L Chloride 102 (98-107) mmol/L Carbon Dioxide 27 (22-32) mmol/L BUN 25 H (7-17) mg/dL Creatinine 0.74 (0.52-1.04) mg/dL Estimated GFR > 60 (>60) mL/min BUN/Creatinine Ratio 33.8 H (6-22) Glucose 285 H (80-110) mg/dL Calcium 9.2 (8.4-10.2) mg/dL Magnesium 1.7 (1.6-2.3) mg/dL Total Bilirubin 0.9 (0.2-1.3) mg/dL AST 27 (14-36) IU/L ALT 20 (<35) IU/L Alkaline Phosphatase 68 (38-126) U/L Total Creatine Kinase 450 H (30-135) U/L Troponin I < 0.012 (0.01-0.034) ng/mL NT-Pro-B Natriuret Pep 344 (<450) pg/mL Total Protein 6.2 L (6.3-8.2) g/dL Albumin 4.0 (3.5-5.0) g/dL Globulin 2.2 (1.7-4.1) g/dL Albumin/Globulin Ratio 1.8 (1.0-2.8) Lipase 40 (23-300) U/L Imaging Data Chest x-ray: Radiologist's Impression: PROCEDURE:? XR CHEST 1V ? INDICATIONS:? SOB ? TECHNIQUE:? One view of the chest was acquired.?? ? COMPARISON:? [facility], , XR CHEST 2V, 12/24/2023, 9:06. ? FINDINGS:?? ? Surgical changes and devices:? Bilateral shoulder arthroplasties. ? Lungs and pleura:? Mild appearance of increased vascularity.? No pleural effusions or? pneumothorax.?? ? Mediastinum:? Mediastinal contours appear normal.? Heart size is enlarged. ? Bones and chest wall:? No suspicious bony lesions.? Overlying soft tissues appear? unremarkable.? IMPRESSION:?? ? Mild appearance of increased vascularity suggestive of edema. ECG Data Attestation: I personally reviewed and interpreted this ECG as follows: Interpretation: Sinus rhythm Ventricular rate 98 Normal axis Normal QRS Nonspecific ST T wave changes MDM Narrative Medical decision making narrative: Age adjusted D-dimer is negative along with having a low to medium risk per Wells criteria for pulmonary embolism. Troponin is negative. Chest x-ray shows what appears to be edema. She was given Lasix. She diuresed a little over 1 L of fluid and states she was feeling much better. She ambulated and states she was feeling better and less short of breath. Low suspicion for pneumonia based on her chest x-ray and also her presentation. Patient states she was feeling well enough to go home. Will have the patient contact her primary care doctor for a follow-up she would probably benefit from an echocardiogram as an outpatient. We will also send home with a prescription for Lasix that she can use over the next couple days as needed. She was given return precautions. She expressed understanding and agreement. Discharge Plan Departure Patient Disposition: Home Clinical Impression: Pulmonary edema Instructions: DI for Peripheral Edema -- Bilateral Activity Restrictions/Additional Instructions: Continue to take all of your medications as directed. Continue to follow all of the postoperative instructions given to you by the orthopedic surgeon. A prescription for furosemide/Lasix was sent to the pharmacy of your choice. Please take it like we discussed. I also recommend that you contact your primary doctor for a follow-up. Return to the emergency department for new symptoms. Prescriptions: New furosemide [Lasix] 20 mg tablet 20 mg PO DAILY PRN (Reason: edema) Qty: 14 0RF No Action estradiol 0.01 % (0.1 mg/gram) cream vaginal mupirocin 2 % ointment 1 applic topical prednisolone acetate 1 % drops,suspension EYE-BOTH ketorolac 0.5 % drops EYE-BOTH rosuvastatin 5 mg tablet PO clonidine 0.1 mg/24 hr patch weekly 1 patch topical cholecalciferol (vitamin D3) 25 mcg (1,000 unit) capsule 25 mcg PO DAILY zinc acetate 25 mg (zinc) capsule 50 mg PO DAILY amoxicillin 500 mg capsule 500 mg PO 3XD cefdinir 300 mg capsule 300 mg PO BID Qty: 10 0RF (DME) Blood Glucose Test Strip See Rx Instructions .ROUTE .MEDSUPPLY Qty: 100 4RF Rx Instructions: Use to test blood glucose once daily. (DME) lancets 33 gauge misc See Rx Instructions .ROUTE .MEDSUPPLY Qty: 100 4RF Rx Instructions: Use to test blood glucose once daily (DME) FreeStyle Tiny 3 Sensor Device See Rx Instructions .Route Qty: 2 12RF Rx Instructions: USE TO MONITOR BLOOD GLUCOSE CONTINUOUSLY. REPLACE EVERY 14 DAYS. fluticasone furoate-vilanterol [Breo Ellipta] 100-25 mcg/dose blister with device 1 inh inhalation DAILY Qty: 60 1RF valsartan [Diovan] 160 mg tablet 160 mg PO BID Qty: 180 3RF Rx Instructions: Take one tablet by mouth twice a day. isosorbide mononitrate 30 mg tablet extended release 24 hr 30 mg PO BID Qty: 60 0RF (DME) Disabled Parking Permit See Rx Instructions .ROUTE .MEDSUPPLY Qty: 1 0RF Rx Instructions: Valid for 5 years albuterol sulfate [Ventolin HFA] 90 mcg/actuation HFA aerosol inhaler See Rx Instructions .ROUTE .COMPLEX Qty: 18 6RF Dose Instruction: INHALE 2 PUFFS BY MOUTH EVERY 4 HOURS NEEDED FOR SHORTNESS OF BREATH Rx Instructions: INHALE 2 PUFFS BY MOUTH EVERY 4-6 HOURS NEEDED FOR SHORTNESS OF BREATH clonidine 0.2 mg/24 hr patch weekly 1 patch topical multivitamin Tablet 1 tab PO DAILY vitamin K2 PO coenzyme Q10 PO Vinia PO (DME) blood-glucose meter Kit See Rx Instructions .ROUTE .MEDSUPPLY Qty: 1 0RF Rx Instructions: Use to test blood glucose DAILY isosorbide mononitrate 60 mg tablet extended release 24 hr 60 mg PO BID Qty: 60 0RF metformin 500 mg tablet 500 mg PO BIDWMEAL Qty: 180 3RF furosemide 20 mg tablet 20 mg PO Q OTHER DAY Qty: 90 0RF Rx Instructions: If no urine within 90 minutes of taking 20mg, next dose should be 40mg hydralazine 50 mg tablet 50 mg PO QID Qty: 360 3RF azelastine 137 mcg (0.1 %) spray,non-aerosol intranasal quercetin PO metoprolol succinate 50 mg tablet extended release 24 hr See Rx Instructions PO .COMPLEX Rx Instructions: TAKE 1 TO 2 TABLET BY MOUTH EVERY MORNING. TAKE 1 TABLET EVERY NIGHT AT BEDTIME ONLY IF SYSTOLIC BLOOD PRESSURE IS OVER 160 albuterol sulfate 2.5 mg /3 mL (0.083 %) solution for nebulization 2.5 mg inhalation Q4H PRN (Reason: wheeze) Qty: 30 0RF Rx Instructions: this OR inhalation q2-4h, not both in that time frame Referrals: Cecilia Brown, [Primary Care Provider] - Stand Alone Forms: Patient Portal/API/Survey
--- NOTE | 2024-08-15 21:59 | DI.RAD.S_ITS ---
PROCEDURE: XR CHEST 1V INDICATIONS: SOB TECHNIQUE: One view of the chest was acquired. COMPARISON: [facility], CR, XR CHEST 2V, 12/24/2023, 9:06. FINDINGS: Surgical changes and devices: Bilateral shoulder arthroplasties. Lungs and pleura: Mild appearance of increased vascularity. No pleural effusions or pneumothorax. Mediastinum: Mediastinal contours appear normal. Heart size is enlarged. Bones and chest wall: No suspicious bony lesions. Overlying soft tissues appear unremarkable. IMPRESSION: Mild appearance of increased vascularity suggestive of edema. Dictated by: Lindy Marcelino M.D. on 08/15/2024 at 23:17 Approved by: Lindy Marcelino M.D. on 08/15/2024 at 23:18
[2024-08-15] MEDS: FUROSEMIDE 40 MG/4 ML VIAL IV (22:04)
[2024-08-15 22:06] LABS: Add Manual Diff / Slide Review NO; Basophils Absolute Auto 0 /uL (0-100); Basophils Percent Auto 0.4 % (0-2); Eosinophils Absolute Auto 200 /uL (0-450); Eosinophils Percent Auto 1.6 % (2-4); Hematocrit 37.9 % (36-46); Hemoglobin 13.1 g/dL (12.0-16.0); Lymphocytes Absolute Auto 1700 /uL (1100-4500); Lymphocytes Percent Auto 16.3 % (25-40); Mean Corpuscular HGB Conc 34.5 % (30-36); Mean Corpuscular Hemoglobin 31.1 PG (26-34); Mean Corpuscular Volume 89.9 fL (80-100); Monocytes Absolute Auto 1100 /uL (0-900); Monocytes Percent Auto 10.5 % (3-14); Neutrophils Absolute Auto 7400 /uL (1500-7000); Neutrophils Percent Auto 71.2 % (50-75); Platelet Count 220 X10^3/uL (150-400); Red Blood Cell Count 4.21 X10^6/uL (4.0-5.2); Red Cell Distribution Width 13.4 % (11.6-14.8); White Blood Cell Count 10.4 X10^3/uL (4.5-11.0)
[2024-08-15 22:09] LABS: Creatine Kinase 450 U/L (30-135)
--- NOTE | 2024-08-15 22:12 | PC.NURSE ---
Imaging at bedside
[2024-08-15 22:22] LABS: Troponin I < 0.012 ng/mL (0.01-0.034)
[2024-08-15 22:25] LABS: D Dimer 722 ng/ml (<500)
[2024-08-15 22:33] LABS: Alanine Aminotransferase 20 IU/L (<35); Albumin Globulin Ratio 1.8 (1.0-2.8); Alkaline Phosphatase 68 U/L (38-126); Aspartate Aminotransferase 27 IU/L (14-36); BUN Creatinine Ratio 33.8 (6-22); Bilirubin Total 0.9 mg/dL (0.2-1.3); Blood Urea Nitrogen 25 mg/dL (7-17); Calcium 9.2 mg/dL (8.4-10.2); Carbon Dioxide 27 mmol/L (22-32); Chloride 102 mmol/L (98-107); Estimated Glomerular Filt Rate > 60 mL/min (>60); Globulin 2.2 g/dL (1.7-4.1); Glucose 285 mg/dL (80-110); HEMOLYSIS < 15 (0-50); Lipase 40 U/L (23-300); Magnesium 1.7 mg/dL (1.6-2.3); Potassium 4.3 mmol/L (3.4-5.1); Sodium 136 mmol/L (137-145); Total Protein 6.2 g/dL (6.3-8.2)
--- NOTE | 2024-08-15 22:37 | PC.NURSE ---
Assisted up to bedside commode. Pt requests to just sit here for a while. Sister remains in room.
[2024-08-15 22:42] LABS: NT-proBNP (BNP-Adult 18+) 344 pg/mL (<450)
--- NOTE | 2024-08-15 23:49 | PC.NURSE ---
Pt ambulatory to restroom without difficulty or assistance. Pt states no longer SOB while sitting and denies getting SOB while walking to restroom. Ambulating O2 sat 96%.
== END 2024-08-16 00:29 | disposition home or self-care (01) ==
PROVIDERS: Emergency Provider Emergency Medicine; Family Provider Family Medicine; PCP Family Medicine
DX: J81.1 Chronic pulmonary edema (principal); I10 Essential (primary) hypertension; J45.909 Unspecified asthma, uncomplicated
CPT/HCPCS: 36415; 71045; 80053; 82550; 83690; 83735; 83880; 84484; 85025; 85379; 93005; 96374; 99284; J1940

== ENCOUNTER → 2024-10-25 07:37 | Outpatient (CLI) | payer MEDICARE, OTHER, SELFPAY | PROVIDERS: Family Provider Family Medicine; PCP Family Medicine; Visit Provider Nurse Practitioner Family | DX: R30.0 Dysuria (principal) | CPT/HCPCS: 87077; 87086; 87186 ==

== ENCOUNTER → 2024-12-02 11:03 | Outpatient (CLI) | payer MEDICARE, OTHER, SELFPAY ==
[2024-12-02 13:00] LABS: BUN Creatinine Ratio 35.1 (6-22); Blood Urea Nitrogen 27 mg/dL (7-17); Calcium 9.6 mg/dL (8.4-10.2); Carbon Dioxide 25 mmol/L (22-32); Chloride 104 mmol/L (98-107); Estimated Glomerular Filt Rate > 60 mL/min (>60); Glucose 178 mg/dL (70-99); HEMOLYSIS < 15 (0-50); Potassium 4.4 mmol/L (3.4-5.1); Sodium 137 mmol/L (137-145)
== END ==
PROVIDERS: Family Provider Family Medicine; PCP Family Medicine; Referring Provider Family Medicine; Visit Provider Family Medicine
DX: Z79.899 Other long term (current) drug therapy (principal)
CPT/HCPCS: 36415; 80048

== ENCOUNTER → 2024-12-03 11:03 | Outpatient (CLI) | payer MEDICARE, OTHER, SELFPAY ==
[2024-12-03 11:59] LABS: Hemoglobin A1C% w Est Avg Glu 7.2 % (4.0-6.0)
== END ==
PROVIDERS: Family Provider Family Medicine; PCP Family Medicine; Referring Provider Family Medicine; Visit Provider Family Medicine
DX: E11.618 Type 2 diabetes mellitus with other diabetic arthropathy (principal)
CPT/HCPCS: 36415; 83036

== ENCOUNTER → 2024-12-25 08:08 | Outpatient (CLI) | payer MEDICARE, OTHER, SELFPAY ==
--- NOTE | 2024-12-25 08:09 | DI.MG.S_ITS ---
MM screening mammo BI: 12/25/2024. BI-RADS: 1 CLINICAL: 79-year old female for bilateral screening mammogram. Tyrer-Cuzick lifetime risk of 1.7%. No personal or first-degree family history of breast cancer. PRIOR EXAMS 06/20/2023, 05/13/2022, 04/08/2021, 04/04/2020, 04/03/2019, 03/12/2018, 03/06/2017, 02/18/2016. MAMMOGRAPHY TECHNIQUE: 2D and 3D (tomosynthesis) digital mammographic views obtained, with additional images as needed for full coverage. Current study was also evaluated with a Computer Aided Detection (CAD) system. DENSITY A. The breasts are almost entirely fatty. MAMMOGRAPHY FINDINGS Bilateral: No suspicious mass, asymmetry, microcalcification, or other abnormality seen. No significant change from comparison. IMPRESSION: * No evidence of malignancy. RECOMMENDATIONS Bilateral * Annual screening mammography. OVERALL ASSESSMENT CATEGORY BI-RADS-1: Negative. The [employer] recommends annual screening mammography beginning at age 40 for women with average risk of breast cancer. ELECTRONICALLY SIGNED: Nichol Delgadillo M.D. on 12/25/2024 at 03:11:48 PM PT Interpreting Station ID: [id number]
== END ==
PROVIDERS: Family Provider Family Medicine; PCP Family Medicine; Referring Provider Family Medicine; Visit Provider Family Medicine
DX: Z12.31 Encounter for screening mammogram for malignant neoplasm of breast (principal); R92.313 Mammographic fatty tissue density, bilateral breasts
CPT/HCPCS: 77063; 77067

== ENCOUNTER 2025-01-02 08:53 | Emergency (ER) | payer MEDICARE, OTHER, SELFPAY ==
[2025-01-02] VITALS (33 sets, daily range): BP systolic 155–188; BP diastolic 67–81; PULSE 79–106; RESP 16–34; TEMP 36.4; O2SAT 94–97; BMI 35.5
--- NOTE | 2025-01-02 09:01 | EKG_ITS ---
[id number] [place] [address] Test Date: 2025-01-02 Pat Name: Jacinda Villalpando Department: Room: Gender: Female Validation Specialist: JACKLYN : 1945 Requested By: Order Number: [id number] Reading MD: Salazar Gayle Measurements Intervals [place] Rate: 103 P: 62 DC: 180 QRS: 56 QRSD: 70 T: 146 QT: 352 QTc: 461 Interpretive Statements Sinus tachycardia Right atrial enlargement ST & T wave abnormality, consider inferolateral ischemia Electronically Signed On 01-03-2025 0:12:01 PDT by Salazar Gayle
--- NOTE | 2025-01-02 09:01 | DI.RAD.S_ITS ---
PROCEDURE: XR CHEST 1V INDICATIONS: Shortness of breath TECHNIQUE: One view of the chest was acquired. COMPARISON: [facility], , XR CHEST 1V, 08/15/2024, 22:03. FINDINGS: Surgical changes and devices: There is bilateral shoulder reverse arthroplasty. Lungs and pleura: Lungs are clear. No pleural effusions or pneumothorax. Mediastinum: Mediastinal contours appear normal. Heart size is enlarged. Bones and chest wall: No suspicious bony lesions. Overlying soft tissues appear unremarkable. IMPRESSION: No acute cardiopulmonary pathology. Dictated by: Jaziel Tabor M.D. on 01/02/2025 at 9:39 Approved by: Jaziel Tabor M.D. on 01/02/2025 at 9:40
[2025-01-02 09:44] LABS: Add Manual Diff / Slide Review NO; Basophils Absolute Auto 100 /uL (0-100); Basophils Percent Auto 0.5 % (0-2); Eosinophils Absolute Auto 100 /uL (0-450); Eosinophils Percent Auto 1.1 % (2-4); Hematocrit 39.6 % (36-46); Hemoglobin 13.9 g/dL (12.0-16.0); Lymphocytes Absolute Auto 1100 /uL (1100-4500); Lymphocytes Percent Auto 10.2 % (25-40); Mean Corpuscular Hemoglobin 31.1 PG (26-34); Mean Corpuscular Volume 88.7 fL (80-100); Monocytes Absolute Auto 700 /uL (0-900); Monocytes Percent Auto 6.2 % (3-14); Neutrophils Absolute Auto 8700 /uL (1500-7000); Platelet Count 203 X10^3/uL (150-400); Red Blood Cell Count 4.46 X10^6/uL (4.0-5.2); Red Cell Distribution Width 13.5 % (11.6-14.8); White Blood Cell Count 10.6 X10^3/uL (4.5-11.0)
[2025-01-02 09:53] LABS: Prothrombin Time 11.6 SECONDS (9.4-12.5)
[2025-01-02 10:05] LABS: Alanine Aminotransferase 21 IU/L (<35); Albumin 4.1 g/dL (3.5-5.0); Albumin Globulin Ratio 1.7 (1.0-2.8); Alkaline Phosphatase 72 U/L (38-126); Aspartate Aminotransferase 24 IU/L (14-36); BUN Creatinine Ratio 37.9 (6-22); Bilirubin Total 0.8 mg/dL (0.2-1.3); Blood Urea Nitrogen 25 mg/dL (7-17); Calcium 9.2 mg/dL (8.4-10.2); Carbon Dioxide 22 mmol/L (22-32); Chloride 104 mmol/L (98-107); Estimated Glomerular Filt Rate > 60 mL/min (>60); Globulin 2.4 g/dL (1.7-4.1); Glucose 317 mg/dL (70-99); HEMOLYSIS < 15 (0-50); Potassium 3.9 mmol/L (3.4-5.1); Sodium 135 mmol/L (137-145); Total Protein 6.5 g/dL (6.3-8.2)
[2025-01-02 10:06] LABS: Lactate (Lactic Acid) 1.6 mmol/L (0.7-2.1)
--- NOTE | 2025-01-02 10:16 | ED.ARRPALP ---
HPI - Arrhythmia/Palpitations General Chief Complaint: Arrhythmia/Palpitations Stated Complaint: High heart rate Time Seen by Provider: 01/02/25 10:14 Source: patient, RN notes reviewed and old records reviewed Mode of arrival: Ambulatory Limitations: no limitations History of Present Illness HPI narrative: 79-year-old female with a history of asthma, hypertension, dyslipidemia, diabetes, CHF who presents with complaint of sensation of elevated heart rate overnight. Patient states it felt fast but not irregular. She noticed a heart rate of 140s she was to Valsalva efforts and got it down to 120s and states it eventually continued to improve. She states she never had any chest pain or pressure, she denies any shortness of breath. No syncope. She denies any diaphoresis. No nausea or vomiting. No other GI or urinary symptoms. She does not note any new swelling for extremities. She notes she has been out of her 20 mg of Lasix for the past several days but states no new swelling. Notes her blood pressure was quite elevated this morning with a systolic of 204. She has taken her evening and morning medications and normally takes for her medications daily. She notes that she was supposed to have cardiac MRI she had a questionable stress test in the past 2 years and it was having this to evaluate if she should have cardiac catheterization for stent placement. She was never had any prior cardiac catheterization or cardiac interventions. She follows with Dr. Elizabeth with Cardiology through [facility]. Patient states she does not take an aspirin daily or any other anticoagulants. Related Data Home Medications ?Medication ?Instructions ?Recorded ?Confirmed cholecalciferol (vitamin D3) 25 25 mcg PO DAILY 01/22/22 12/18/24 mcg (1,000 unit) capsule multivitamin 1 tab PO DAILY 03/10/22 12/18/24 zinc acetate 25 mg (zinc) capsule 50 mg PO DAILY 09/05/23 12/18/24 Vinia PO DAILY 08/16/24 12/18/24 ascorbic acid (vitamin C) 500 mg 1,000 mg PO DAILY 08/16/24 12/18/24 capsule,extended release azelastine 137 mcg (0.1 %) nasal intranasal BID allergies 08/16/24 12/18/24 spray calcium carbonate 975 mg-magnesium 1 tab PO DAILY 08/16/24 12/18/24 carbonate 232 mg oral tablet coenzyme Q10 PO DAILY 08/16/24 12/18/24 estradiol 0.01% (0.1 mg/gram) vaginal 2XW 08/16/24 12/18/24 vaginal cream milk thistle 500 mg capsule 500 mg PO BEDTIME 08/16/24 12/18/24 quercetin PO DAILY 08/16/24 12/18/24 rosuvastatin 5 mg tablet mg PO 3XW 08/16/24 12/18/24 sennosides 8.6 mg tablet (Senna 17.2 mg PO BEDTIME 08/16/24 12/18/24 Laxative) vitamin A 2,400 mcg capsule 2,400 mcg PO DAILY 08/16/24 12/18/24 vitamin E mixed 1,000 unit capsule unit PO DAILY 08/16/24 12/18/24 vitamin K2 PO DAILY 08/16/24 12/18/24 hydralazine 100 mg tablet 100 mg PO TID 08/19/24 12/18/24 metoprolol succinate 50 mg 50 - 100 mg PO .COMPLEX 12/18/24 tablet,extended release 24 hr Previous Rx's ?Medication ?Instructions ?Recorded blood-glucose meter #1 ea 05/25/22 Disabled Parking Permit #1 ea 05/09/23 metformin 500 mg tablet 500 mg PO BIDWMEAL #180 tabs 10/04/23 Held on 12/18/24. Instructions: trying GLP probiotic albuterol sulfate 90 mcg/actuation See Rx Instructions .Route 12/21/23 aerosol inhaler (Ventolin HFA) .COMPLEX #18 grams Diovan 160 mg tablet (valsartan) 160 mg PO BID #180 tabs 07/25/24 FreeStyle Tiny 3 Sensor #2 ea 09/09/24 (blood-glucose sensor) clonidine 0.2 mg/24 hr weekly 1 patch topical QWEEK #12 patches 12/10/24 transdermal patch blood-glucose sensor (FreeStyle #2 ea 12/17/24 Tiny 3 Plus Sensor device) progesterone micronized 100 mg 100 - 400 mg (1 - 4 x 100 mg) PO 12/18/24 capsule BEDTIME #90 caps furosemide 20 mg tablet 20 - 40 mg (1 - 2 x 20 mg) PO 01/01/25 DAILY leg swelling #180 tabs Allergies Allergy/AdvReac Type Severity Reaction Status Date / Time gum mastic (From MASTISOL Allergy Severe rash, Verified 01/02/25 08:59 LIQUID ADHESIVE) blistering methyl salicylate (From Allergy Severe rash, Verified 01/02/25 08:59 MASTISOL LIQUID ADHESIVE) blistering storax (From MASTISOL LIQUID Allergy Severe rash, Verified 01/02/25 08:59 ADHESIVE) blistering tetracycline Allergy Mild RASH Verified 01/02/25 08:59 methylprednisolone Allergy Unknown Verified 01/02/25 08:59 ciprofloxacin (From Cipro) AdvReac Mild Verified 01/02/25 08:59 adhesive AdvReac Unknown LONG, Verified 01/02/25 08:59 SKINNY, STERILE STRIPS: SURGERY Review of Systems Review of Systems ROS Unobtainable: All systems reviewed & are unremarkable except as noted in HPI and below Patient History Medical History Hyperparathyroidism Pulmonary edema (~07/2024) Upper respiratory tract infection due to COVID-19 virus Acute UTI Unspecified asthma (07/11/12) Epidermal cyst (~04/2023) Left hamstring injury Osteoarthritis of right hip Ground-level fall Supraspinatus tendon tear Tachycardia determined by examination of pulse JOHNSON (dyspnea on exertion) Hyperlipidemia Strain of adductor nando muscle Strain of right psoas muscle Varicose veins of left lower extremity Greater trochanteric bursitis of left hip Left hamstring muscle strain Asthma Cataract CTS (carpal tunnel syndrome) Chronic back pain Osteoarthritis Measles Essential hypertension (04/25/17) Surgical History Status post replacement of right shoulder joint (~07/2024) History of right hip replacement (~05/2023) History of left shoulder replacement (~06/2022) History of spinal fusion (06/2009) H/O colonoscopy with polypectomy (~10/2020) Anesthesia Status post parathyroidectomy (2015) History of knee replacement (2016) History of spinal fusion (2011) Status post tonsillectomy and adenoidectomy (1947) Family History Father CAD (coronary artery disease) Hypertension Lewy body dementia Grandfather Heart disease Mother Leukemia Acute ITP Detached retina H/O splenectomy Grandfather Cancer of soft palate Social History household members: family housing: house pets and animals: Yes (Cat and dog) alcohol intake: never alcohol intake frequency: 0-2 drinks per day Exam Narrative Exam Narrative: GENERAL: Alert and oriented x three, female in mild distress HEENT: Head normocephalic, atraumatic, EOMI, pupils reactive, face symmetric, moist mucous membranes NECK: Supple, full range of motion CARDIOVASCULAR: Regular rate and rhythm without murmurs, rubs or gallops. No JVD. No edema bilateral lower extremities. RESPIRATORY: Breath sounds equal bilaterally, no wheezes rales or rhonchi. ABDOMEN: Soft, nontender. Normoactive bowel sounds all 4 quadrants. No guarding or rebound, rigidity, no mass : No CVA tenderness EXTREMITIES: Normal range of motion, no clubbing or edema. Neurovascularly intact NEUROLOGICAL: Cranial nerves II through XII grossly intact. Moving all extremities SKIN: Warm, dry, no petechiae, no rashes or lesions. Initial Vital Signs Initial Vital Signs: Vital Signs Temperature 97.5 F L 01/02/25 08:58 Pulse Rate 106 H 01/02/25 08:58 Respiratory Rate 16 01/02/25 08:58 Blood Pressure 188/79 H 01/02/25 08:58 Pulse Oximetry 97 01/02/25 08:58 Oxygen Delivery Method Room Air 01/02/25 08:58 Course Orders Ordered: Discontinued Medications Aspirin (Aspirin 81 Mg Chew Tab) 324 mg PO NOW ONE Stop: 01/02/25 10:41 Last Admin: 01/02/25 10:56 Dose: 324 mg Documented By: MARIA LUZ Heparin Sodium (Porcine) (Heparin 5,000 Unit/Ml Vial) 5,000 unit IV NOW ONE Stop: 01/02/25 11:47 Last Admin: 01/02/25 12:00 Dose: 5,000 unit Documented By: MARIA LUZ Heparin Sodium/Dextrose (Heparin Drip) 25,000 unit in 500 mls @ 23.95 mls/hr IV CONT ANDREA; Protocol Last Titration: 01/02/25 20:43 Dose: Infused Documented By: BELINDA Co-signed By: KISHAN Titration: 01/02/25 18:43 Dose: 10 units/kg/hr, 19.958 mls/hr Documented By: MARIA LUZ Co-signed By: XIOMY Admin: 01/02/25 12:02 Dose: 10 units/kg/hr, 19.958 mls/hr Documented By: MARIA LUZ Co-signed By: ARGENTINA Vital Signs Vital signs: Vital Signs - 8 hr 01/02/25 20:00 01/02/25 20:06 01/02/25 20:06 Pulse Rate 80 79 Respiratory Rate 28 H Blood Pressure 174/75 H Pulse Oximetry 95 94 MDM - Arrhythmia/Palpitations Lab Data 01/02/25 09:35 01/02/25 09:35 Labs: Lab Results 01/02/25 01/02/25 01/02/25 Range/Units 09:35 11:40 18:07 WBC 10.6 (4.5-11.0) X10^3/uL RBC 4.46 (4.0-5.2) X10^6/uL Hgb 13.9 (12.0-16.0) g/dL Hct 39.6 (36-46) % MCV 88.7 (80-100) fL MCH 31.1 (26-34) PG MCHC 35.0 (30-36) % RDW 13.5 (11.6-14.8) % Plt Count 203 (150-400) X10^3/uL Neut % (Auto) 82.0 H (50-75) % Lymph % (Auto) 10.2 L (25-40) % Robertson % (Auto) 6.2 (3-14) % Eos % (Auto) 1.1 L (2-4) % Baso % (Auto) 0.5 (0-2) % Neut # (Auto) 8700 H (7411-1931) /uL Lymph # (Auto) 1100 (0564-6840) /uL Robertson # (Auto) 700 (0-900) /uL Eos # (Auto) 100 (0-450) /uL Baso # (Auto) 100 (0-100) /uL PT 11.6 (9.4-12.5) SECONDS INR 1.0 (0.9-1.3) APTT 70 H (25.1-36.5) SECONDS Sodium 135 L (137-145) mmol/L Potassium 3.9 (3.4-5.1) mmol/L Chloride 104 (98-107) mmol/L Carbon Dioxide 22 (22-32) mmol/L BUN 25 H (7-17) mg/dL Creatinine 0.66 (0.52-1.04) mg/dL Estimated GFR > 60 (>60) mL/min BUN/Creatinine Ratio 37.9 H (6-22) Glucose 317 H (70-99) mg/dL Lactate 1.6 (0.7-2.1) mmol/L Calcium 9.2 (8.4-10.2) mg/dL Total Bilirubin 0.8 (0.2-1.3) mg/dL AST 24 (14-36) IU/L ALT 21 (<35) IU/L Alkaline Phosphatase 72 (38-126) U/L Troponin I 0.144 H* 0.179 H* (0.01-0.034) ng/mL NT-Pro-B Natriuret Pep 632 H (<450) pg/mL Total Protein 6.5 (6.3-8.2) g/dL Albumin 4.1 (3.5-5.0) g/dL Globulin 2.4 (1.7-4.1) g/dL Albumin/Globulin Ratio 1.7 (1.0-2.8) ECG Data Attestation: I personally reviewed and interpreted this ECG as follows: Prior ECG tracings: available for review Interpretation: Sinus tachycardia rate of 103 WA 180 QRS is 70 QTC of 461, right atrial enlargement nonspecific change patient was prior from 08/15/2024 which shows sinus rhythm rate of 98 does not overall appears similar and ST segments. Repeat EKG shows sinus rhythm nonspecific T-wave changes rate 81 WA 176 QRS is 78 QTC of 439. [facility] Narrative Medical decision making narrative: EKG showed sinus tachycardia rate of 103 right atrial enlargement, nonspecific change. Repeat EKG no appreciable dynamic changes. Labs show normal white count, hemoglobin and platelets, INR of 1, sodium 135 BUN 25 electrolytes are appropriate, glucose is 317 lactate is 1.6 LFTs are appropriate, troponin positive at 0.144, BNP is 632. Troponin was repeated Chest x-ray shows no acute change CTA, no pulmonary embolism, no acute cardiopulmonary process. Stable left lower lobe pulmonary nodules measuring up to 8 mm. 79-year-old female presents with a complaint of palpitations overnight not persistently she was asymptomatic currently. No acute EKG changes initially she was had no chest pain shortness of breath. Troponin was positive she was on oral estrogen so CT angio was obtained to rule out pulmonary embolism. Patient does note she was set up for cardiac MRI to evaluate as she was had questionable stress test in the past. She follows with Dr. Elizabeth for Cardiology at [facility]. Patient had aspirin initiated, heparin drip. Patient's preference for transfer as [facility] where she was her cardiology care. Contacted Spoke with cardiology at [facility]. Cards asks NPO at midnight, continue heparin gtt, Dr. Holder hospitalist in [facility]. Discharge Plan Departure Patient Disposition: [facility] Clinical Impression: Non-ST elevation RI (NSTEMI) Prescriptions: No Action cholecalciferol (vitamin D3) 25 mcg (1,000 unit) capsule 25 mcg PO DAILY zinc acetate 25 mg (zinc) capsule 50 mg PO DAILY valsartan [Diovan] 160 mg tablet 160 mg PO BID Qty: 180 3RF Rx Instructions: Take one tablet by mouth twice a day. azelastine 137 mcg (0.1 %) spray,non-aerosol intranasal BID coenzyme Q10 PO DAILY estradiol 0.01 % (0.1 mg/gram) cream vaginal 2XW quercetin PO DAILY vitamin K2 PO DAILY rosuvastatin 5 mg tablet PO 3XW vitamin A 2,400 mcg capsule 2,400 mcg PO DAILY Vinia PO DAILY (DME) FreeStyle Tiny 3 Sensor Device See Rx Instructions .Route Qty: 2 12RF Rx Instructions: USE TO MONITOR BLOOD GLUCOSE CONTINUOUSLY. REPLACE EVERY 14 DAYS. clonidine 0.2 mg/24 hr patch weekly 1 patch topical QWEEK Qty: 12 0RF (DME) FreeStyle Tiny 3 Plus Sensor Device See Rx Instructions .Route Qty: 2 3RF Rx Instructions: As directed to check blood glucose furosemide 20 mg tablet 20 - 40 mg PO DAILY Qty: 180 3RF (DME) Disabled Parking Permit See Rx Instructions .ROUTE .MEDSUPPLY Qty: 1 0RF Rx Instructions: Valid for 5 years albuterol sulfate [Ventolin HFA] 90 mcg/actuation HFA aerosol inhaler See Rx Instructions .ROUTE .COMPLEX Qty: 18 6RF Dose Instruction: INHALE 2 PUFFS BY MOUTH EVERY 4 HOURS NEEDED FOR SHORTNESS OF BREATH Rx Instructions: INHALE 2 PUFFS BY MOUTH EVERY 4-6 HOURS NEEDED FOR SHORTNESS OF BREATH sennosides [Senna Laxative] 8.6 mg tablet 17.2 mg PO BEDTIME milk thistle 500 mg capsule 500 mg PO BEDTIME Rx Instructions: give with meal/snack ascorbic acid (vitamin C) 500 mg capsule, extended release 1,000 mg PO DAILY vitamin E mixed 1,000 unit capsule PO DAILY calcium and magnesium carbonat 975-232 mg tablet 1 tab PO DAILY multivitamin Tablet 1 tab PO DAILY (DME) blood-glucose meter Kit See Rx Instructions .ROUTE .MEDSUPPLY Qty: 1 0RF Rx Instructions: Use to test blood glucose DAILY metformin 500 mg tablet 500 mg PO BIDWMEAL Qty: 180 3RF hydralazine 100 mg tablet 100 mg PO TID progesterone micronized 100 mg capsule 100 - 400 mg PO BEDTIME Qty: 90 2RF metoprolol succinate 50 mg tablet extended release 24 hr 50 - 100 mg PO .COMPLEX Rx Instructions: 100 mg orally QAM and 50 mg QPM if systolic BP > 160; Referrals: Cecilia Brown DO [Primary Care Provider, Medical]
[2025-01-02 10:19] LABS: NT-proBNP (BNP-Adult 18+) 632 pg/mL (<450)
[2025-01-02 10:31] LABS: Troponin I 0.144 ng/mL (0.01-0.034)
--- NOTE | 2025-01-02 10:39 | DI.CT.S_ITS ---
PROCEDURE: CT ANGIO CHEST PE PROTOCOL INDICATIONS: Palpitations, positive troponin TECHNIQUE: After the administration of intravenous contrast, 2 mm thick sections acquired from the pulmonary apices to the posterior costophrenic angles. 3-dimensional maximum intensity projection (MIP) coronal and sagittal reformats were then acquired through the thorax. For radiation dose reduction, the following was used: automated exposure control, adjustment of mA and/or kV according to patient size. COMPARISON: [facility], CT, CT ANGIO CHEST PE PROTOCOL, 01/14/2022, 19:45. FINDINGS: Image quality: Diagnostic. Pulmonary arteries: Pulmonary arteries are normal in size, and demonstrate no intraluminal filling defects to suggest central pulmonary embolism. Lower Neck: No enlarged lymph nodes. Thyroid: No thyroid nodules which require sonographic follow up, per consensus guidelines. Axillae: No enlarged lymph nodes. Chest Wall: Unremarkable. Bones: Degenerative changes of the spine. Lungs and Pleura: No pneumothorax or pleural effusions. Stable 8 x 7 mm nodule at the left lower lobe (5/185). Stable 4 mm nodule within left lower lobe (5/150). Scattered areas of linear atelectasis versus scarring are noted. Heart: Heart size is normal. Moderate coronary artery calcifications. No pericardial effusion. Thoracic Vessels: No aortic aneurysm. Atherosclerotic vascular calcifications. Mediastinum and Edel: No enlarged lymph nodes. Esophagus: No wall thickening. No hiatal hernia. Upper Abdomen: Visualized upper abdomen solid organs and bowel loops appear normal. IMPRESSION: No pulmonary embolus. No acute cardiopulmonary process. Stable left lower lobe pulmonary nodules measuring up to 8 mm. Dictated by: Lazarus Tripathi M.D. on 01/02/2025 at 11:35 Approved by: Lazarus Tripathi M.D. on 01/02/2025 at 11:45
[2025-01-02] MEDS: ASPIRIN 81 MG CHEW TAB 324 MG PO (10:56)
--- NOTE | 2025-01-02 11:30 | EKG_ITS ---
[address] [address] Test Date: 2025-01-02 Pat Name: Jacinda Villalpando Department: Room: Gender: Female Process Assistant: JACKLYN : 1945 Requested By: Order Number: [id number] Reading MD: Salazar Gayle Measurements Intervals [place] Rate: 81 P: 60 DE: 176 QRS: 56 QRSD: 78 T: 6 QT: 378 QTc: 439 Interpretive Statements Normal sinus rhythm Nonspecific T wave abnormality Electronically Signed On 01-03-2025 0:12:09 PDT by Salazar Gayle
[2025-01-02] MEDS: HEPARIN 5,000 UNIT/ML VIAL 5000 UNIT IV (12:00)
[2025-01-02] MEDS: HEPARIN DRIP 25,000 UNIT/500 ML IV.SOLN 19.958 UNIT IV (12:02)
[2025-01-02 12:16] LABS: Troponin I 0.179 ng/mL (0.01-0.034)
--- NOTE | 2025-01-02 13:19 | PC.NURSE ---
Pt sitting on stretcher, RA, NAD, A&Ox4, breathing even/equal/unlabored at this time. Pt's sister at bedside, call light within reach, updated to plan of care, no needs at this time.
--- NOTE | 2025-01-02 14:17 | PC.NURSE ---
Pt sitting on stretcher, RA, NAD, A&Ox4, breathing even/equal/unlabored at this time. Pt's sister at bedside, updated pt and family (with pt permission) about status of pending transfer. Educated pt for need of second IV, pt requested to hold off on second IV until we know we need it. Call light within reach, no other needs at this time.
--- NOTE | 2025-01-02 16:23 | PC.NURSE ---
Pt sitting on stretcher, RA, NAD, A&Ox4, breathing even/equal/unlabored at this time. Pt denies CP/SOB, bleeding at this time. Call light within reach, updated to status of transfer- awaiting approve from [facility] as pt preference is to transfer to [facility]. No other needs at this time
[2025-01-02 18:21] LABS: PTT Partial Thromboplastin Tim 70 SECONDS (25.1-36.5)
== END 2025-01-02 20:44 | disposition short-term general hospital (02) ==
PROVIDERS: Emergency Provider Emergency Medicine; Family Provider Family Medicine; PCP Family Medicine
DX: I21.4 Non-ST elevation (NSTEMI) myocardial infarction (principal); I10 Essential (primary) hypertension; Z79.01 Long term (current) use of anticoagulants
CPT/HCPCS: 36415; 71045; 71275; 80053; 83605; 83880; 84484; 85025; 85610; 85730; 93005; 96365; 96366; 96375; 99284; 99285; J1644; Q9967

== ENCOUNTER → 2025-01-10 10:33 | Outpatient (CLI) | payer MEDICARE, OTHER, SELFPAY ==
--- NOTE | 2025-01-10 10:35 | DI.RAD.S_ITS ---
PROCEDURE: XR CHEST 2V INDICATIONS: cough TECHNIQUE: 2 views of the chest were acquired. COMPARISON: [facility], CR, XR CHEST 1V, 01/02/2025, 9:12. [facility], CR, XR CHEST 1V, 08/15/2024, 22:03. FINDINGS AND IMPRESSION: Mild left lung opacity possibly in the lingula on lateral view. This could be atelectasis versus infectious. Consider future imaging surveillance to assess for resolution. No drainable effusions. Heart size is at the upper limit of normal. Bilateral shoulder arthroplasties. Dictated by: Live Heredia M.D. on 01/10/2025 at 13:56 Approved by: Live Heredia M.D. on 01/10/2025 at 13:57
== END ==
PROVIDERS: Family Provider Family Medicine; PCP Family Medicine; Referring Provider Internal Medicine; Visit Provider Internal Medicine
DX: R05.9 Cough, unspecified (principal); Z96.612 Presence of left artificial shoulder joint; Z96.611 Presence of right artificial shoulder joint
CPT/HCPCS: 71046

== ENCOUNTER → 2025-02-04 07:42 | Outpatient (CLI) | payer MEDICARE, OTHER, SELFPAY ==
--- NOTE | 2025-02-04 07:54 | DIAB.FU ---
Follow-up Diabetes Education Assessment Name: Jacinda Villalpando Date: 02/04/25 Time: 8-830a Dx: Type II Diabetes Jacinda presents for Dm visit. Since our last visit, she has experienced an NM and new stent. has cardio rehab intake at the end of this month. Reports self d/c of Metformin after reading some negative articles online. Has not started Ozempic and has questions about SE. Continues taking 500mg or more vitamin c. Not interested in reducing dose. Not wearing FSL CGM at this time. Not checking BG. Did not do any confirmation of BG with CGM and finger stick. Denies any diet changes. BG have gone up considerably since d/c of Metformin Anthropometrics: Ht: 66 Wt: 216.5# 01/2025 223# 202 Physical Activity: Not discussed Self-Monitoring Blood Glucose: FSL3 indicates significant increased elevations and reduced time in range since last visit. Stopped wearing sensor in December. Today TIR 90% >250mg/dl 10% 181-250mg/dl 0% 70-180mg/dl 0% low avmg/dl GMI 10.7 variance; 15.9% Last Visit TIR 12% >250mg/dl 40% 181-250mg/dl 48% 70-180mg/dl 0% low avmg/dl GMI 8% Diabetes Medications: 500mg Metformin TID--- not taking 0.25-0.5mg Semaglutide -- not taking Pertinent Labs: HgA1c: 6.0% 08/2022 7.5% 02/2023 7.2 11/2024 Past Medical History: (Last Reviewed 08/25/23 @ 09:26 by Artemio Barton DO) Acute UTI Asthma RemoteCataract One removedChronic back pain Spinal fusion post injuryCTS (carpal tunnel syndrome) JOHNSON (dyspnea on exertion) Epidermal cyst (~04/2023) right low backEssential hypertension (04/25/17) Greater trochanteric bursitis of left hip Ground-level fall x3 2022Hypercalcemia hx parathyroidectomyHyperlipidemia Hyperparathyroidism Hypertension Left hamstring injury avulsion vs strainLeft hamstring muscle strain Measles Osteoarthritis Osteoarthritis of right hip s/p replacement 2022Strain of adductor nando muscle Strain of right psoas muscle Supraspinatus tendon tear Tachycardia determined by examination of pulse Varicose veins of left lower extremity Intervention: This participant was very receptive. Provided appropriate educational handouts. Discussed the following topics: Safety and side effects of Dm medications Encouraged DM management with meds based on last elevated TIR Discussed med options overall for Dm Encouraged BG monitoring Vitamin c recs and impact on CGM Created SMART goals for patient self-care and success. Goals: use chart for CHO counting and aim for 30g- new Try finger sticks to compare CGM fasting number- new Restart Tiny- new Restart Metformin- new Start Semaglutide - new Try to keep supplemental Vit c to 500mg or less - new Follow-up: ALTHEA COLLIER follow-up in 2-3 weeks Carolyn Mccarty RDN, [facility] Certified Diabetes [facility] and [employer] P: [phone] Thank you for this referral
== END ==
PROVIDERS: Family Provider Family Medicine; PCP Family Medicine; Referring Provider Family Medicine
DX: E11.9 Type 2 diabetes mellitus without complications (principal); I25.2 Old myocardial infarction; Z71.3 Dietary counseling and surveillance
CPT/HCPCS: G0108

== ENCOUNTER → 2025-04-08 07:22 | Outpatient (CLI) | payer MEDICARE, OTHER, SELFPAY | PROVIDERS: Family Provider Family Medicine; PCP Family Medicine; Visit Provider Chiropractor | DX: R30.0 Dysuria (principal) | CPT/HCPCS: 87086 ==

== ENCOUNTER 2025-04-24 09:30 | Emergency (ER) | payer MEDICARE, OTHER, SELFPAY ==
[2025-04-24 09:37] VITALS: BP 182/74; PULSE 68; RESP 16; TEMP 36.6; O2SAT 97; BMI 34.7
--- NOTE | 2025-04-24 09:40 | DI.CT.S_ITS ---
PROCEDURE: CT HEAD/BRAIN WO CON INDICATIONS: trauma on pradaxa TECHNIQUE: Noncontrast 4.5 mm thick angled axial sections acquired from the foramen magnum to the vertex, with coronal and sagittal reformats. For radiation dose reduction, the following was used: automated exposure control, adjustment of mA and/or kV according to patient size. COMPARISON: None. FINDINGS: Image quality: Diagnostic. CSF spaces: Basal cisterns are patent. No extra-axial fluid collections. The ventricles are symmetric in size and shape. Brain: No intracranial bleeds or mass effect. There is cerebral volume loss, with resultant ventricular and sulcal prominence. There are periventricular and deep white matter chronic small vessel ischemic changes. There is intracranial internal carotid artery atherosclerosis. Skull and face: Calvarium and visualized facial bones appear intact, without suspicious lesions. Sinuses: Visualized sinuses and mastoids are clear. IMPRESSION: 1. No acute intracranial process. 2. Moderate atrophy and chronic microvascular ischemic changes. Dictated by: Lindy Marcelino M.D. on 04/24/2025 at 9:54 Approved by: Lindy Marcelino M.D. on 04/24/2025 at 9:54
--- NOTE | 2025-04-24 09:41 | ED.FALL ---
HPI - Fall General Chief Complaint: Fall Stated Complaint: Fell and hit her back of head, on blood thinners Time Seen by Provider: 04/24/25 09:35 History of Present Illness HPI Narrative: 79-year-old female with history of coronary artery disease status post stent, prescribed Pradaxa, presents after fall at cardiac rehab today. Patient was exercising on the [employer]U ball when she tumbled backwards struck the back of her head on the wall. This caused her neck to flex. She has some neck pain. No significant headache. No vomiting disturbances in speech or vision, numbness or tingling, radiating pains down the neck or shoulders or arms. No loss of bladder control. No other injuries per patient Related Data Home Medications ?Medication ?Instructions ?Recorded ?Confirmed cholecalciferol (vitamin D3) 25 25 mcg PO DAILY 01/22/22 04/17/25 mcg (1,000 unit) capsule multivitamin 1 tab PO DAILY 03/10/22 04/17/25 zinc acetate 25 mg (zinc) capsule 50 mg PO DAILY 09/05/23 04/17/25 Vinia PO DAILY 08/16/24 04/17/25 ascorbic acid (vitamin C) 500 mg 1,000 mg PO DAILY 08/16/24 04/17/25 capsule,extended release azelastine 137 mcg (0.1 %) nasal intranasal BID allergies 08/16/24 04/17/25 spray calcium carbonate 975 mg-magnesium 1 tab PO DAILY 08/16/24 04/17/25 carbonate 232 mg oral tablet coenzyme Q10 PO DAILY 08/16/24 04/17/25 estradiol 0.01% (0.1 mg/gram) vaginal 2XW 08/16/24 04/17/25 vaginal cream milk thistle 500 mg capsule 500 mg PO BEDTIME 08/16/24 04/17/25 quercetin PO DAILY 08/16/24 04/17/25 rosuvastatin 5 mg tablet mg PO 3XW 08/16/24 04/17/25 sennosides 8.6 mg tablet (Senna 17.2 mg PO BEDTIME 08/16/24 04/17/25 Laxative) vitamin A 2,400 mcg capsule 2,400 mcg PO DAILY 08/16/24 04/17/25 vitamin E mixed 1,000 unit capsule unit PO DAILY 08/16/24 04/17/25 vitamin K2 PO DAILY 08/16/24 04/17/25 hydralazine 100 mg tablet 100 mg PO TID 08/19/24 04/17/25 allergen 1 tab sublingual DAILY 01/16/25 04/17/25 xt,mite,D.farinae-D.pteronyssinus 12 SQ-HDM sublingual tablet (Odactra) aspirin 81 mg chewable tablet 1 tab PO DAILY 01/16/25 04/17/25 clopidogrel 75 mg tablet 75 mg PO DAILY 01/16/25 04/17/25 nitroglycerin 0.4 mg sublingual mg sublingual 01/16/25 04/17/25 tablet rosuvastatin 40 mg tablet 40 mg PO DAILY 01/16/25 04/17/25 Previous Rx's ?Medication ?Instructions ?Recorded blood-glucose meter #1 ea 05/25/22 Disabled Parking Permit #1 ea 05/09/23 albuterol sulfate 90 mcg/actuation See Rx Instructions .Route 12/21/23 aerosol inhaler (Ventolin HFA) .COMPLEX #18 grams Diovan 160 mg tablet (valsartan) 160 mg PO BID #180 tabs 07/25/24 FreeStyle Tiny 3 Sensor #2 ea 09/09/24 (blood-glucose sensor) progesterone micronized 100 mg 100 - 400 mg (1 - 4 x 100 mg) PO 12/18/24 capsule BEDTIME #90 caps furosemide 20 mg tablet 20 - 40 mg (1 - 2 x 20 mg) PO 01/01/25 DAILY leg swelling #180 tabs metoprolol succinate 50 mg See Rx Instructions PO .COMPLEX 01/06/25 tablet,extended release 24 hr #270 tabs benzonatate 200 mg capsule 200 mg PO BID-TID PRN cough #60 01/07/25 caps clonidine 0.3 mg/24 hr weekly 1 patch topical QWEEK #12 patches 01/16/25 transdermal patch metformin 500 mg tablet See Rx Instructions PO .COMPLEX 02/05/25 #270 tabs blood-glucose sensor (Dexcom G7 #6 ea 03/12/25 Sensor device) blood-glucose sensor (Dexcom G7 #1 ea 03/31/25 Sensor device) FreeStyle Tiny 3 Plus Sensor #1 ea 04/10/25 (blood-glucose sensor) Allergies Allergy/AdvReac Type Severity Reaction Status Date / Time gum mastic (From MASTISOL Allergy Severe rash, Verified 04/17/25 13:35 LIQUID ADHESIVE) blistering methyl salicylate (From Allergy Severe rash, Verified 04/17/25 13:35 MASTISOL LIQUID ADHESIVE) blistering storax (From MASTISOL LIQUID Allergy Severe rash, Verified 04/17/25 13:35 ADHESIVE) blistering tetracycline Allergy Mild RASH Verified 04/17/25 13:35 methylprednisolone Allergy Unknown Verified 04/17/25 13:35 ciprofloxacin (From Cipro) AdvReac Mild Verified 04/17/25 13:35 adhesive AdvReac Unknown LONG, Verified 04/17/25 13:35 SKINNY, STERILE STRIPS: SURGERY Review of Systems Review of Systems Narrative: Pertinent ROS obtained and negative except as stated in HPI Patient History Medical History Coronary artery disease Resistant hypertension Non-ST elevation [place] (NSTEMI) (~12/2024) Presence of stent in left circumflex coronary artery (~12/2024) Pulmonary edema (~07/2024) Upper respiratory tract infection due to COVID-19 virus Epidermal cyst (~04/2023) Acute UTI Left hamstring injury Osteoarthritis of right hip Ground-level fall Supraspinatus tendon tear JOHNSON (dyspnea on exertion) Hyperlipidemia Strain of adductor nando muscle Strain of right psoas muscle Varicose veins of left lower extremity Greater trochanteric bursitis of left hip Left hamstring muscle strain Hyperparathyroidism Unspecified asthma (07/11/12) Asthma Cataract CTS (carpal tunnel syndrome) Chronic back pain Osteoarthritis Measles Essential hypertension (04/25/17) Surgical History Status post coronary artery stent placement (~12/2024) Status post replacement of right shoulder joint (~07/2024) History of right hip replacement (~05/2023) History of left shoulder replacement (~06/2022) H/O colonoscopy with polypectomy (~10/2020) Anesthesia Status post parathyroidectomy (2015) History of knee replacement (2016) History of spinal fusion (2011) History of spinal fusion (06/2009) Status post tonsillectomy and adenoidectomy (1947) Family History Father CAD (coronary artery disease) Hypertension Lewy body dementia Grandfather Heart disease Mother Leukemia Acute ITP Detached retina H/O splenectomy Grandfather Cancer of soft palate Social History household members: family housing: house pets and animals: Yes (Cat and dog) alcohol intake: never alcohol intake frequency: 0-2 drinks per day Exam Initial Vital Signs Initial Vital Signs: Vital Signs Temperature 97.8 F 04/24/25 09:37 Pulse Rate 68 04/24/25 09:37 Respiratory Rate 16 04/24/25 09:37 Blood Pressure 182/74 H 04/24/25 09:37 Pulse Oximetry 97 04/24/25 09:37 Oxygen Delivery Method Room Air 04/24/25 09:37 Constitutional: Well appearing, no acute distress Head: NCAT. No hematoma noted. No tenderness over the occipital area. Neck: No midline C-spine tenderness. Normal ROM neck/no restrictions. Patient endorses paracervical discomfort but does not react with palpation of mm bellies. No paresthesias or radiating pain with gentle range of motion of the neck. Cardiovascular: normal rate, appears well perfused Pulmonary: normal effort Extremities: No LE edema Skin: warm and dry Neurological: Alert, normal strength, normal speech, oriented x3, PERRL, EOMI Course Orders Ordered: Discontinued Medications Lidocaine (Lidocaine 5% Patch) 1 each TOP NOW ONE Stop: 04/24/25 09:41 Last Admin: 04/24/25 09:56 Dose: 1 each Documented By: CTS Vital Signs Vital signs: Vital Signs - 8 hr 04/24/25 09:37 Temperature 97.8 F Pulse Rate 68 Respiratory Rate 16 Blood Pressure 182/74 H Pulse Oximetry 97 Oxygen Delivery Method Room Air MDM - Fall Lab Data Labs: Urine Dip Bedside Urine Glucose Negative Bedside Urine Bilirubin - Negative Bedside Urine Ketone - Negative Urine Specific Wells 1.015 Bedside Urine Occult Blood - Negative Bedside Urine pH 6.0 Bedside Urine Protein - Negative Bedside Urine Urobilinogen - Negative Bedside Urine Nitrite - Negative Bedside Urine Leukocytes - Negative Esterase [facility] Narrative Medical decision making narrative: This is a pleasant 79-year-old female who presents after fell backwards off of [employer] ball at cardiac rehab, struck the back of her head on the wall. She has hx of cardiac disease with stents and is prescribed pradaxa Here in ED patient is in no acute distress. She has some paraspinal neck discomfort and stiffness but no headache, paresthesias, radicular symptoms, vomiting, signs symptoms of spinal cord impingement syndrome. C-spine was cleared by myself at the bedside on arrival per NEXUS criteria Head CT was obtained and negative for hemorrhage. This was obtained given her age and given antiplatelet therapy Patient remained clinically stable here in the ED. No significant interval changes in symptoms or exam. She is stable for discharge. Counseled her on signs symptoms of concussion although not displaying any of these currently NEXUS Criteria for C-Spine Imaging from [employer] on 04/25/2025 All calculations should be rechecked by clinician prior to use RESULT SUMMARY: If none of the above criteria are present, the C-Spine can be cleared clinically by these criteria. Imaging is not required. INPUTS: Focal neurologic deficit present ?> 0 = No Midline spinal tenderness present ?> 0 = No Altered level of consciousness present ?> 0 = No Intoxication present ?> 0 = No Distracting injury present ?> 0 = No Discharge Plan Departure Patient Disposition: Home Clinical Impression: Blunt head trauma Activity Restrictions/Additional Instructions: Please follow-up with your family doctor as needed in 7-10 days for recheck after your fall. Return to the emergency department for new or worsening symptoms such as severe headache, sensitivity to light or sound, vomiting, numbness or tingling, loss of bowel or bladder control, weakness in your arms or legs Prescriptions: No Action cholecalciferol (vitamin D3) 25 mcg (1,000 unit) capsule 25 mcg PO DAILY zinc acetate 25 mg (zinc) capsule 50 mg PO DAILY valsartan [Diovan] 160 mg tablet 160 mg PO BID Qty: 180 3RF Rx Instructions: Take one tablet by mouth twice a day. azelastine 137 mcg (0.1 %) spray,non-aerosol intranasal BID coenzyme Q10 PO DAILY estradiol 0.01 % (0.1 mg/gram) cream vaginal 2XW quercetin PO DAILY vitamin K2 PO DAILY rosuvastatin 5 mg tablet PO 3XW vitamin A 2,400 mcg capsule 2,400 mcg PO DAILY Vinia PO DAILY (DME) [employer] Tiny 3 Sensor Device See Rx Instructions .Route Qty: 2 12RF Rx Instructions: USE TO MONITOR BLOOD GLUCOSE CONTINUOUSLY. REPLACE EVERY 14 DAYS. furosemide 20 mg tablet 20 - 40 mg PO DAILY Qty: 180 3RF metoprolol succinate 50 mg tablet extended release 24 hr See Rx Instructions PO .COMPLEX Qty: 270 0RF Rx Instructions: 100mg QAM and 50 mg QPM if systolic BP > 160; metformin 500 mg tablet See Rx Instructions PO .COMPLEX Qty: 270 0RF Rx Instructions: Take one tablet by mouth in the morning and 2 tablets by mouth in the evening (DME) Dexcom G7 Sensor Device See Rx Instructions .Route Qty: 1 3RF Rx Instructions: Replaced sensor every ten days (DME) [employer] Tiny 3 Plus Sensor Device See Rx Instructions .Route Qty: 1 0RF Rx Instructions: [place] directed [place] [place]ing Permit See Rx Instructions .ROUTE .MEDSUPPLY Qty: 1 0RF Rx Instructions: Valid for 5 years albuterol sulfate [Ventolin HFA] 90 mcg/actuation HFA aerosol inhaler See Rx Instructions .ROUTE .COMPLEX Qty: 18 6RF Dose Instruction: INHALE 2 PUFFS BY MOUTH EVERY 4 HOURS NEEDED FOR SHORTNESS OF BREATH Rx Instructions: INHALE 2 PUFFS BY MOUTH EVERY 4-6 HOURS NEEDED FOR SHORTNESS OF BREATH sennosides [Senna Laxative] 8.6 mg tablet 17.2 mg PO BEDTIME milk thistle 500 mg capsule 500 mg PO BEDTIME Rx Instructions: give with meal/snack ascorbic acid (vitamin C) 500 mg capsule, extended release 1,000 mg PO DAILY vitamin E mixed 1,000 unit capsule PO DAILY calcium and magnesium carbonat 975-232 mg tablet 1 tab PO DAILY multivitamin Tablet 1 tab PO DAILY (DME) blood-glucose meter Kit See Rx Instructions .ROUTE .MEDSUPPLY Qty: 1 0RF Rx Instructions: Use to test blood glucose DAILY hydralazine 100 mg tablet 100 mg PO TID progesterone micronized 100 mg capsule 100 - 400 mg PO BEDTIME Qty: 90 2RF clopidogrel 75 mg tablet 75 mg PO DAILY nitroglycerin 0.4 mg tablet, sublingual sublingual aspirin 81 mg tablet,chewable 1 tab PO DAILY rosuvastatin 40 mg tablet 40 mg PO DAILY Odactra 12 SQ-HDM tablet, sublingual 1 tab sublingual DAILY clonidine 0.3 mg/24 hr patch weekly 1 patch topical QWEEK Qty: 12 1RF (DME) Dexcom G7 Sensor Device See Rx Instructions .Route Qty: 6 3RF Rx Instructions: As directed benzonatate 200 mg capsule 200 mg PO BID-TID PRN (Reason: cough) Qty: 60 0RF Referrals: Cecilia Brown DO [Primary Care Provider, Medical] Stand Alone Forms: Patient Portal/API
[2025-04-24] MEDS: LIDOCAINE 5% PATCH 1 EACH TOP (09:56)
== END 2025-04-24 10:20 | disposition home or self-care (01) ==
PROVIDERS: Emergency Provider Student in an Organized Health Care Education/Training Program; Family Provider Family Medicine; PCP Family Medicine
DX: S09.90XA Unspecified injury of head, initial encounter (principal); W21.09XA Struck by other hit or thrown ball, initial encounter; Z86.79 Personal history of other diseases of the circulatory system
CPT/HCPCS: 70450; 81003; 99282; 99284

== ENCOUNTER 2025-06-09 08:30 | Outpatient (RCR) | payer MEDICARE, OTHER, SELFPAY | END 2025-06-09 10:30 | LOC: CAR 08:30 | PROVIDERS: Family Provider Family Medicine; PCP Family Medicine; Referring Provider Internal Medicine Interventional Cardiology; Visit Provider Internal Medicine Interventional Cardiology | DX: I21.4 Non-ST elevation (NSTEMI) myocardial infarction (principal); I25.10 Atherosclerotic heart disease of native coronary artery without angina pectoris; I25.83 Coronary atherosclerosis due to lipid rich plaque | CPT/HCPCS: 82962; 93798 ==

== ENCOUNTER → 2025-07-02 09:09 | Outpatient (CLI) | payer MEDICARE, OTHER, SELFPAY ==
[2025-07-02 12:34] LABS: Appearance Urine UA CLEAR; Bilirubin Urine UA NEGATIVE (NEGATIVE); Color Urine UA YELLOW; Glucose Urine UA TRACE g/dL (Negative); Ketones Urine UA NEGATIVE (NEGATIVE); Leukocyte Esterase Urine UA NEGATIVE (NEGATIVE); Nitrite Urine UA NEGATIVE (Negative); Occult Blood Urine UA NEGATIVE (Negative); Protein Urine UA NEGATIVE (Negative); Specific Gravity Urine UA 1.010 (1.000-1.035); Urobilinogen Urine UA 0.2 E.U./dL (0.2)
[2025-07-02 12:55] LABS: pH Urine UA 6.0 (4.5-8.0)
[2025-07-02 12:59] LABS: Culture Indicated Urine Cult Not Indicated
== END ==
PROVIDERS: Family Provider Family Medicine; PCP Family Medicine; Visit Provider Obstetrics & Gynecology Gynecology
DX: N95.2 Postmenopausal atrophic vaginitis (principal); R29.898 Other symptoms and signs involving the musculoskeletal system; N39.41 Urge incontinence; N39.3 Stress incontinence (female) (male); N39.0 Urinary tract infection, site not specified
CPT/HCPCS: 81001